=== PATIENT | female | born 1945 | race Caucasian/White ===

== ENCOUNTER 2019-01-15 13:10 | Emergency (ER) | payer BC ==
--- NOTE | 2019-01-15 14:10 | RAD REPORT ---
EXAM DESCRIPTION: CT - Head C Spine Mpr Wo Con - 01/15/2019 1:50 pm CLINICAL HISTORY: Head and neck injury status post fall. Head and neck pain COMPARISON: None. TECHNIQUE: Computed axial tomography of the head and cervical spine was obtained. Sagittal and coronal reconstruction was performed. All CT scans are performed using dose optimization technique as appropriate and may include automated exposure control or mA/KV adjustment according to patient size. FINDINGS: An intracranial bleed is not seen. The ventricles are normal in caliber. An extra-axial fl uid collection is not noted.Fluid within the visualized sinuses and mastoids is not seen A cervical fracture is not visualized. No dislocation is noted. Spondylosis involves the mid and dist al cervical spine The thyroid gland appears mildly enlarged IMPRESSION: No acute intracranial abnormality is seen. A cervical fracture is not visualized. If the patient continues to have symptoms to suggest intracra nial /spinal cord pathology then MRI would be recommended
--- NOTE | 2019-01-15 14:33 | EDPHYS ---
Physician Documentation [facility] Name: Marily Gonsales Age: 73 yrs Sex: Female : 1945 Arrival Date: 01/15/2019 Time: 13:12 Bed 8 Private MD: Lemuel Kuo C ED Physician Rosalio Glaser HPI: 01/15 14:28 This 73 yrs old Female presents to ER via Ambulatory with complaints of Fall rn Injury. 14:28 Details of fall: The patient fell from an upright position, while standing. Onset: The rn symptoms/episode began/occurred today. Associated injuries: The patient sustained injury to the head. Severity of symptoms: At their worst the symptoms were mild, in the emergency department the symptoms are unchanged. The patient has not experienced similar symptoms in the past. Reports slipped, was getting up and out of bathtub, slipped while using washcloth to get a pluck trimmer of bathtub, fell backward, hit head, and did not lose consciousness. No focal neurological complaint, does not take blood thinners. Remembers all events. No other injuries. . Historical: - Allergies: 13:32 No Known Allergies; ss - Home Meds: 13:32 Trimterene 37.5/ HCTZ 25 mg 1 cap PO DAILY [Active]; potassium chloride 10 mEq Oral ss TbER 1 tab once daily [Active]; levothyroxine 125 mcg tab 1 tab once daily [Active]; gabapentin 300 mg oral cap [Active]; atorvastatin 20 mg oral tab 1 tab once daily [Active]; buspirone 10 mg Oral tab [Active]; lamotrigine oral oral [Active]; 13:48 losartan-hydrochlorothiazide 50-12.5 mg Oral tab 1 tab once daily [Active]; Synthroid tr5 137 mcg Oral tab 1 tab once daily [Active]; - PMHx: 13:49 Bladder cancer; Hypertension; Hypothyroidism; tr5 - Immunization history:: Adult Immunizations up to date. - Social history:: Smoking status: Patient/guardian denies using tobacco. - Ebola Screening: : Patient denies exposure to infectious person Patient denies travel to an Ebola-affected area in the 21 days before illness onset. - Family history:: not pertinent. - Hospitalizations: : No recent hospitalization is reported. ROS: 14:28 Constitutional: Negative for fever, chills, and weight loss, Eyes: Negative for injury, rn pain, redness, and discharge, Neck: Negative for injury, pain, and swelling, Cardiovascular: Negative for chest pain, palpitations, and edema, Respiratory: Negative for shortness of breath, cough, wheezing, and pleuritic chest pain, Abdomen/GI: Negative for abdominal pain, nausea, vomiting, diarrhea, and constipation, MS/Extremity: Negative for injury and deformity, Skin: Negative for injury, rash, and discoloration, Neuro: Negative for weakness, numbness, tingling, and seizure, + headache Exam: 14:28 Constitutional: This is a well developed, well nourished patient who is awake, alert, rn and in no acute distress. Head/Face: Normocephalic, atraumatic. Eyes: Pupils equal round and reactive to light, extra-ocular motions intact. Lids and lashes normal. Conjunctiva and sclera are non-icteric and not injected. Cornea within normal limits. Periorbital areas with no swelling, redness, or edema. Neck: NO midline tenderness Cardiovascular: Regular rate and rhythm. No pulse deficits. Respiratory: Lungs have equal breath sounds bilaterally, clear to auscultation. No increased work of breathing, no retractions or nasal flaring. Abdomen/GI: soft, non-tender MS/ Extremity: Pulses equal, no cyanosis. Neurovascular intact. Full, normal range of motion. Equal circumference. Neuro: Awake and alert, GCS 15, oriented to person, place, time, and situation. Cranial nerves II-XII grossly intact. Motor strength 5/5 in all extremities. Sensory grossly intact. Cerebellar exam normal. Vital Signs: 13:32 BP 131 / 66; Pulse 53; Resp 19; Temp 98.1(TE); Pulse Ox 97% on R/A; Height 5 ft. 3 in. ss (160.02 cm); 13:51 BP 144 / 73; Pulse 60; Resp 12; Pulse Ox 100% on R/A; tr5 MDM: 13:30 Patient medically screened. rn 14:28 Differential diagnosis: closed head injury, contusion. Data reviewed: vital signs, rn nurses notes, radiologic studies, CT scan, and as a result, I will discharge patient. Counseling: I had a detailed discussion with the patient and/or guardian regarding: the historical points, exam findings, and any diagnostic results supporting the discharge/admit diagnosis, radiology results, the need for outpatient follow up, to return to the emergency department if symptoms worsen or persist or if there are any questions or concerns that arise at home. Special discussion: Based on the patient's history, exam and DX evaluation, there is no indication for emergent intervention or inpatient TX. It is understood by the patient/guardian that if the SXs persist or worsen they need to return immediately for re-evaluation. I discussed with the patient/guardian in detail that at this point there is no indication for admission to the hospital. It is understood, however, that if the symptoms persist or worsen the patient needs to return immediately for re-evaluation. 01/15 13:37 Order name: CT Head C Spine; Complete Time: 14:27 rn Administered Medications: 14:59 Drug: Motrin 600 mg Route: PO; tr5 15:01 Follow up: Response: Medication administered at discharge. tr5 14:59 Drug: UltRAM 50 mg Route: PO; tr5 15:01 Follow up: Response: Medication administered at discharge. tr5 Disposition: 01/15/19 14:33 Discharged to Home. Impression: Superficial injury of head. - Condition is Stable. - Discharge Instructions: Head Injury, Adult. - Medication Reconciliation Form, Thank You Letter, Antibiotic Education, Prescription Opioid Use form. - Follow up: Private Physician; When: As needed; Reason: Recheck today's complaints, Re-evaluation by your physician. - Problem is new. - Symptoms have improved. Signatures: Dispatcher [employer] EDMS Rosalio Glaser MD MD rn Smirch, Shelby, RN RN ss Rodriguez, Tommie, RN RN tr5 Corrections: (The following items were deleted from the chart) 13:49 13:32 PMHx: Bladder cancer; tr5 13:49 13:32 PMHx: Hypertension; tr5 13:49 13:32 PMHx: Hypothyroidism; tr5 15:02 14:33 01/15/2019 14:33 Discharged to Home. Impression: Superficial injury of head. tr5 Condition is Stable. Forms are Medication Reconciliation Form, Thank You Letter, Antibiotic Education, Prescription Opioid Use. Follow up: Private Physician; When: As needed; Reason: Recheck today's complaints, Re-evaluation by your physician. Problem is new. Symptoms have improved. rn
--- NOTE | 2019-01-15 14:33 | ER ---
Nurse's Notes [facility] Name: Marily Gonsales Age: 73 yrs Sex: Female : 1945 Arrival Date: 01/15/2019 Time: 13:12 Bed 8 Private MD: Lemuel Kuo C Diagnosis: Superficial injury of head Presentation: 01/15 13:25 Presenting complaint: Patient states: I was taking a bath and i slipped and hit the tr5 back of my head. It is just now starting to hurt and I am not sure if I feel dizzy or not but just wanted to get checked out. Transition of care: patient was not received from another setting of care. Onset of symptoms was January 15, 2019. Risk Assessment: Do you want to hurt yourself or someone else? Patient reports no desire to harm self or others. Initial Sepsis Screen: Does the patient meet any 2 criteria? No. Patient's initial sepsis screen is negative. Does the patient have a suspected source of infection? No. Patient's initial sepsis screen is negative. Care prior to arrival: None. 13:25 Method Of Arrival: Ambulatory tr5 13:25 Acuity: CORI 4 tr5 13:27 Presenting complaint: Patient states: Fell backwards in bathtub 1 hour ago. Denies LOC. ss Pt states, "it's just a little sore now, and I can't tell if I'm dizzy or just from the whole ordeal.". Transition of care: patient was not received from another setting of care. Onset of symptoms was January 15, 2019. Risk Assessment: Do you want to hurt yourself or someone else? Patient reports no desire to harm self or others. Initial Sepsis Screen: Does the patient meet any 2 criteria? No. Patient's initial sepsis screen is negative. Does the patient have a suspected source of infection? No. Patient's initial sepsis screen is negative. Care prior to arrival: None. 13:27 Method Of Arrival: Ambulatory ss 13:27 Acuity: CORI 4 ss Triage Assessment: 13:35 General: Appears in no apparent distress. comfortable, Behavior is calm, cooperative, tr5 appropriate for age. Pain: Complains of pain in occipital area Pain does not radiate. Quality of pain is described as aching. EENT: No signs and/or symptoms were reported regarding the EENT system. EENT: Reports ringing since Pt reports some ringing in ears shortly after she fell. Neuro: Level of Consciousness is awake, alert, obeys commands, Oriented to person, place, time, [place] are equal bilaterally Moves all extremities. Speech is normal, Facial symmetry appears normal, Pupils are PERRLA, Intact. Neuro: Denies weakness blurred vision. Cardiovascular: No deficits noted. Cardiovascular: Heart tones present Bruits absent Capillary refill < 3 seconds Pulses are all present. Edema is absent. Respiratory: Airway is patent Trachea midline Breath sounds are clear bilaterally. GI: No signs and/or symptoms were reported involving the gastrointestinal system. : No signs and/or symptoms were reported regarding the genitourinary system. Derm: No signs and/or symptoms reported regarding the dermatologic system. Musculoskeletal: Capillary refill < 3 seconds, Range of motion: intact in all extremities. Historical: - Allergies: 13:32 No Known Allergies; ss - Home Meds: 13:32 Trimterene 37.5/ HCTZ 25 mg 1 cap PO DAILY [Active]; potassium chloride 10 mEq Oral ss TbER 1 tab once daily [Active]; levothyroxine 125 mcg tab 1 tab once daily [Active]; gabapentin 300 mg oral cap [Active]; atorvastatin 20 mg oral tab 1 tab once daily [Active]; buspirone 10 mg Oral tab [Active]; lamotrigine oral oral [Active]; 13:48 losartan-hydrochlorothiazide 50-12.5 mg Oral tab 1 tab once daily [Active]; Synthroid tr5 137 mcg Oral tab 1 tab once daily [Active]; - PMHx: 13:49 Bladder cancer; Hypertension; Hypothyroidism; tr5 - Immunization history:: Adult Immunizations up to date. - Social history:: Smoking status: Patient/guardian denies using tobacco. - Ebola Screening: : Patient denies exposure to infectious person Patient denies travel to an Ebola-affected area in the 21 days before illness onset. - Family history:: not pertinent. - Hospitalizations: : No recent hospitalization is reported. Screenin:47 Abuse screen: Denies threats or abuse. Nutritional screening: No deficits noted. tr5 Tuberculosis screening: No symptoms or risk factors identified. Fall Risk Fall in past 12 months (25 points). No secondary diagnosis (0 pts). No IV (0 pts). Ambulatory Aid- None/Bed Rest/Nurse Assist (0 pts). Gait- Normal/Bed Rest/Wheelchair (0 pts) Mental Status- Oriented to own ability (0 pts). Total Guillen Fall Scale indicates Low Risk Score (25-44 pts). Side Rails Up X 2 Family Present and informed to notify staff if they need to leave bedside As available Patient and Family Educated on Fall Prevention Program and strategies. Assessment: 14:18 Reassessment: Patient appears in no apparent distress at this time. Patient is alert, tr5 oriented x 3, equal unlabored respirations, skin warm/dry/pink. 14:50 Reassessment: Patient states feeling better. Patient states symptoms have improved. tr5 Vital Signs: 13:32 BP 131 / 66; Pulse 53; Resp 19; Temp 98.1(TE); Pulse Ox 97% on R/A; Height 5 ft. 3 in. ss (160.02 cm); 13:51 BP 144 / 73; Pulse 60; Resp 12; Pulse Ox 100% on R/A; tr5 ED Course: 13:12 Patient arrived in ED. as 13:13 Lemuel Kuo MD is Private Physician. as 13:24 Yunior Tijerina RN is Primary Nurse. tr5 13:29 Triage completed. ss 13:30 Rosalio Glaser MD is Attending Physician. rn 13:32 Arm band placed on right wrist. ss 13:[address] via wheelchair. tr5 13:50 CT completed. Patient tolerated procedure well. Patient moved back from CT. mw3 13:50 CT Head C Spine In Process Unspecified. EDMS 13:52 Patient has correct armband on for positive identification. Bed in low position. Call tr5 light in reach. Side rails up X 1. Adult w/ patient. 15:00 No provider procedures requiring assistance completed. Patient did not have IV access tr5 during this emergency room visit. Administered Medications: 14:59 Drug: Motrin 600 mg Route: PO; tr5 15:01 Follow up: Response: Medication administered at discharge. tr5 14:59 Drug: UltRAM 50 mg Route: PO; tr5 15:01 Follow up: Response: Medication administered at discharge. tr5 Outcome: 14:33 Discharge ordered by . rn 14:59 Discharged to home ambulatory. tr5 14:59 Condition: stable 14:59 Discharge instructions given to patient, family, Instructed on discharge instructions, follow up and referral plans. Demonstrated understanding of instructions, follow-up care. 15:02 Patient left the ED. tr5 Signatures: Dispatcher [employer] Dorys Thibodeaux Roman, MD MD rn Smirch, Shelby, RN RN Sole Melton mw3 Yunior Tijerina RN RN tr5 Corrections: (The following items were deleted from the chart) 13:49 13:32 PMHx: Bladder cancer; tr5 13:49 13:32 PMHx: Hypertension; tr5 13:49 13:32 PMHx: Hypothyroidism; tr5 14:23 13:51 BP 144 / 73; Pulse 16bpm; Resp 12bpm; Pulse Ox 100% RA; tr5 tr5
[2019-01-15] MEDS ORDERED: IBUPROFEN 200 MG TAB PO ONE (14:58)
[2019-01-15] MEDS ORDERED: TRAMADOL HCL 50 MG TAB ONE (14:58)
[2019-01-15 15:42] VITALS: TEMP 98.1
[2019-01-15 15:43] VITALS: BP 144/73; O2SAT 100
== END 2019-01-15 15:02 | disposition home or self-care (01) ==
LOC: ER 13:10
DX: S00.90XA Unspecified superficial injury of unspecified part of head, initial encounter (principal); W18.2XXA Fall in (into) shower or empty bathtub, initial encounter; C67.9 Malignant neoplasm of bladder, unspecified; I10 Essential (primary) hypertension; E03.9 Hypothyroidism, unspecified
CPT/HCPCS: 70450; 72125; 99284

== ENCOUNTER 2019-09-06 06:19 | Day surgery (SDC) | payer BC ==
[2019-09-01 14:35] LABS: Hematocrit 46.6 % (36.0-45.0); RBC Red Blood Cell Count 5.29 M/uL (3.86-4.86)
[2019-09-01 14:36] LABS: Absolute Lymphocytes (CBC) 2.6 K/uL (0.7-4.9); Basophils % 0.8 % (0-1.3); Lymphocytes % 38.2 % (15.3-44.8); MPV 9.3 fL (7.6-11.3)
[2019-09-01 14:44] LABS: Protime INR 0.97
--- NOTE | 2019-09-02 15:01 | EKG ---
Test Date: 2019-09-01 Test Time: 13:41:16 [place]: ELINOR MEASUREMENT RESULTS: Intervals: Rate: 48 KS: 150 QRSD: 104 QT: 470 QTc: 419 [place]: P: 61 KS: 150 QRS: 34 T: 39 INTERPRETIVE STATEMENTS: Marked sinus bradycardia Possible Left atrial enlargement Abnormal ECG Compared to ECG 09/26/2016 20:03:54 Sinus rhythm no longer present Sinus arrhythmia no longer present Myocardial infarct finding no longer present Electronically Signed On 09-02-19 15:01:02 [employer] by Jin Chisholm
[2019-09-06] MEDS ORDERED: Ringers Lactate 1,000 ML IV ONE (06:40)
[2019-09-06 07:06] LABS: Albumin 3.8 g/dL (3.4-5.0); Bilirubin Total 0.9 mg/dL (0.2-1.0); Potassium 3.4 mmol/L (3.5-5.1); Protein, Total 6.8 g/dL (6.4-8.2)
[2019-09-06] MEDS ORDERED: LIDOCAINE 1% MPF 5 ML VIAL ONE (07:24)
[2019-09-06] MEDS ORDERED: propofoL 200 MG/20 ML VIAL IV ONE (07:24)
[2019-09-06] MEDS ORDERED: FENTANYL CITR 100 MCG/2 ML ONE (07:24)
[2019-09-06] MEDS ORDERED: AMPICILLIN SODIUM 1 GM in NA CHLORIDE 0.9% 100 ML IVPB ONE (07:30)
[2019-09-06] MEDS ORDERED: CEFTRIAXONE/SWI 1gm 1 GM/10 ML SYR IV ONE (07:30)
[2019-09-06] MEDS ORDERED: ONDANSETRON 4 MG/2 ML VIAL ONE (07:54)
[2019-09-06] MEDS ORDERED: KETOROLAC 30 MG/ML INJ ONE (07:54)
[2019-09-06] MEDS ORDERED: EPHEDRINE SULF 50 MG/ML VIAL ONE (08:02)
[2019-09-06] MEDS ORDERED: NS 0.9% VIAL 10 ML ONE (08:02)
--- NOTE | 2019-09-06 09:20 | RAD REPORT ---
EXAM DESCRIPTION: RAD - Cystography - 09/06/2019 9:03 am CLINICAL HISTORY: CYSTO RETROGRADE BLADDER BIOPSY COMPARISON: No comparisons FINDINGS: Total fluoro time: 40 seconds
[2019-09-06 09:59] VITALS: TEMP 97.9; O2SAT 100
[2019-09-06 10:44] VITALS: BP 135/63
[2019-09-06] MEDS ORDERED: CODEINE 30MG/APAP 300MG TAB ONE (11:10)
--- NOTE | 2019-09-06 23:33 | OP ---
Date of Procedure: 09/06/2019 Surgeon: YOLANDA BUTT Disassembler: Sydney Lance, Nurse Practitioner. Preoperative Diagnoses: Bladder lesion, history of bladder cancer. Postoperative Diagnoses: Bladder lesion, history of bladder cancer. Procedures Performed: Cystoscopy, bilateral retrograde pyelograms, bladder biopsy with fulguration. Anesthesia: General LMA. Procedure In Detail: With the patient in modified dorsal lithotomy position on the cystoscopy table, after the satisfactory induction of anesthesia, the genitalia were prepped and draped in the usual s terile fashion. A 22-Mauritian cystoscope was passed per urethra. The entire urethra and bladder were thoroughly examined. The urethra appeared normal. The bladder showed some fibrosis. On the mid pos terior wall, there was a slightly elevated irregular area of patchy erythema. The remainder of the b ladder appeared normal. Bilateral retrograde pyelograms were performed with an 8-Mauritian cone tip cat heter revealing normal upper tracts, which drained promptly. I saw no filling defect or other abnorm ality. We then used the cold cup biopsy forceps to biopsy the erythematous patch and cauterize this area thoroughly. This produced complete hemostasis. The bladder was filled and emptied and there wa s no sign of any bleeding. Then, the bladder was drained. The cystoscope was removed and the patien t was awakened and transferred by stretcher to the recovery room in satisfactory condition. There we re no complications. Blood loss was less than 10 mL. She tolerated the procedure well. Counts were correct. Specimen was as noted above. LIZ/TUAN Voice ID: [id number] Report ID: [id number]
== END 2019-09-06 12:32 | disposition home or self-care (01) ==
LOC: OR 06:19
PROVIDERS: ATTEND Internal Medicine Hematology & Oncology
PROC: BT14ZZZ Fluoroscopy of Kidneys, Ureters and Bladder (ICD-10-PCS; 2019-09-06)
PROC: 0TBB8ZX Excision of Bladder, Via Natural or Artificial Opening Endoscopic, Diagnostic (ICD-10-PCS; principal; 2019-09-06 07:30)
DX: C67.4 Malignant neoplasm of posterior wall of bladder (principal); I10 Essential (primary) hypertension; E03.9 Hypothyroidism, unspecified; M25.50 Pain in unspecified joint; Z88.2 Allergy status to sulfonamides
CPT/HCPCS: 52204; 52005; 93005; 87088; 85025; 87086; 36415 ×2; 85610; 88305; 85730; 80053; 51600; 74430; J2704; J3010; J0696; J7120; J2405; J0290

== ENCOUNTER 2020-03-26 09:14 | Inpatient (IN) | payer BC ==
--- OUTSIDE RECORDS SUMMARY | 2020-03-26 09:20 | XMS REPORT | Clinical Summary ---
:1945 Author Organization [facility] Address [address] [place] [address] Care Team Providers Name Role Phone Lucy Kuo MD Primary Care Provider Allergies Active Allergy Reactions Severity Noted Date Comments Sulfa (Sulfonamide Antibiotics) Swelling 0 Medications Medication Sig Dispensed Refills Start End Status Date Date triamterene-hydroCH Take 1 capsule by 0 Active LOROthiazide mouth every (DYAZIDE) 37.5-25 morning. mg per capsule potassium chloride Take 10 mEq by 0 Active (MICRO-K) 10 mEq CR mouth daily . capsule levothyroxine Take 125 mcg by 0 Active (SYNTHROID, mouth Every LEVOTHROID) 125 MCG morning on an tablet empty stomach. gabapentin Take 300 mg by 0 Acti ve (NEURONTIN) 300 MG mouth daily. capsule atorvastatin Take 20 mg by 0 Act libby (LIPITOR) 20 MG mouth daily. tablet lamoTRIgine Take 50 mg by 0 Acti ve (LAMICTAL) 25 MG mouth daily. tablet hydrOXYzine Take 50 mg by 0 Acti ve (ATARAX) 25 MG mouth 3 (three) tabletIndications: times daily . anxious baclofen (LIORESAL) Take 10 mg by 0 Active 10 MG tablet mouth 2 (two) times daily. multivitamin Take 1 capsule by 0 Active capsule mouth daily. vit A/C/E Take by mouth 0 Active ac/ZnOx/cupric daily. oxide (EYE VITAMIN AND MINERALS ORAL) b complex vitamins Take 1 capsule by 0 Active capsule mouth daily. calcium Take 1 tablet by 0 Act libby citrate-vitamin D mouth 2 (two) (CITRACAL+D) times daily. 315-200 mg-unit per tablet ddsgd-0h-ved-epa-fi Take by mouth 0 Active sh oil (FISH OIL) daily. 120 mg-180 mg- 60 mg-1,200 mg CpDR lactobacillus Take 1 capsule by 0 Active rhamnosus, GG, mouth daily. (CULTURELLE) 10 billion cell capsule polycarbophil Take 625 mg by 0 A ctive (FIBERCON) 625 mg mouth 3 (three) tablet times daily. biotin 2,500 mcg Take by mouth 0 Active CapIndications: daily. 5000 mcg MAGNESIUM GLYCINATE Take by mouth. 0 Active ORAL UNKNOWNIndications: L-Theanine 200 mg 0 Active binu supplement daily . ascorbic acid, Take 500 mg by 0 Active vitamin C, (VITAMIN mouth daily. C) 500 MG tablet TURMERIC ORAL Take by mouth. 0 A ctive spironolactone-hydr Take 1 tablet by 0 04/20 Discontinued oCHLOROthiazide mouth daily. 020 (ALDACTAZIDE) 25-25 mg per tablet HYDROcodone-acetami Take 1 tablet by 0 07/21 Discontinued nophen (NORCO mouth every 6 020 7.5-325) 7.5-325 mg (six) hours as per tablet needed for Pain. phenazopyridine Take 1 tablet (200 10 tablet 0 10/16 (PYRIDIUM) 200 MG mg total) by mouth 0 020 tablet 3 (three) times daily as needed for up to 3 days. nitrofurantoin, Take 1 capsule 6 capsule 0 macrocrystal-monohy (100 mg total) by 0 02 0 drate, (MACROBID) mouth 2 (two) 100 MG capsule times daily for 3 days. nitrofurantoin, Take 1 capsule 14 capsule 0 macrocrystal-monohy (100 mg total) by 0 02 0 drate, (MACROBID) mouth 2 (two) 100 MG capsule times daily for 7 days. phenazopyridine Take 1 tablet (200 10 tablet 0 01/20 (PYRIDIUM) 200 MG mg total) by mouth 0 020 tablet 3 (three) times daily as needed for up to 3 days. acetaminophen-codei Take 1 tablet by 30 tablet 0 16/09 ne (TYLENOL #3) mouth every 6 0 020 300-30 mg per (six) hours as tablet needed for up to 10 days. Max Daily Amount: 4 tablets docusate sodium Take 1 capsule 60 capsule 0 (COLACE) 100 MG (100 mg total) by 0 020 capsule mouth 2 (two) times daily as needed for Constipation for up to 10 days. enoxaparin Inject 0.4 mLs (40 30 Syringe 0 (LOVENOX) 40 mg/0.4 mg total) 0 020 mL Syrg subcutaneously daily for 30 days. nitrofurantoin, Take 1 capsule 6 capsule 0 macrocrystal-monohy (100 mg total) by 0 02 0 drate, (MACROBID) mouth 2 (two) 100 MG capsule times daily for 3 days Please start day before follow up appointment for stent removal. Active Problems Problem Noted Date Urothelial cancer 01/30/2020 Bladder cancer 10/14/2019 Encounters Date Type Specialty Care Team Description 02/28/2020 Outside Orders Central Scheduling Bird Trotter neoplasm of overlapping sites of bladder (HCC) (Primary Dx); MD Eyad Malignant neopl asm of urinary bladder, unspecified site (HCC) 01/31/2020 Anesthesia Event General Internal Madonna Warren MD 01/30/2020 Surgery Dick Jaimes CYSTECTOMY,CREA ANTWON Mondragon MD STUDOR POUCH 01/30/2020 Anesthesia Event Kushal Del Cid MD 01/30/2020 - Hospital Encounter General Internal Dick Jaimes 02/07/2020 Hallie Mondragon MD 01/30/2020 Travel 01/27/2020 Hospital Encounter Pre-Admission Testing 01/18/2020 Anesthesia Event Cade Marinelli CRNA 01/18/2020 Surgery Dick Jaimes CYSTOSCOPY,TURB Lon Mondragon MD 01/18/2020 Hospital Encounter Dick Jaimes Malignant neoplasm MD Giancarlo of posterior wa ll of urinary blad juan f (HCC) 01/18/2020 Orders Only General Internal Medicine 01/17/2020 Hospital Encounter Pre-Admission Testing 01/17/2020 Travel 12/27/2019 Hospital Encounter Computed Tomography Bird Trotter Ma lignant neoplasm MD Eyad of overlapping 1, [facility] [place] [facility] [address] Room (HCC) 12/27/2019 Hospital Encounter Computed Tomography Bird Trotter Ma lignant neoplasm MD Eyad of overlapping , [facility] [place] [facility] [address] Room (HCC) 12/20/2019 Outside Orders Central Scheduling Ailin Trotter-Kishore Maligna nt neoplasm MD Eyad of overlapping sites of bladde r (HCC) (Primary Dx) 12/20/2019 Outside Orders Central Scheduling Ailin Trotter-Kishore Maligna nt neoplasm MD Eyad of overlapping sites of bladde r (HCC) (Primary Dx) 11/01/2019 Hospital Encounter Radiology Bird Trotter Malignant neoplasm MD Eyad of overlapping sites of bladde r (HCC) 11/01/2019 Travel 10/27/2019 Hospital Encounter Computed Tomography Brodie iNcole, Malignant neoplasm of overlapping , [facility] [place] [facility] [address] Room (HCC) 10/27/2019 Hospital Encounter Computed Tomography Brodie Nicole, Avascular necrosis MD of scaphoid (HCC) [address] [place] [address] Room 10/26/2019 Outside Orders Central Scheduling Dick Jaimes nt neoplasm MD Giancarlo of overlapping sites of bladde r (HCC) (Primary Dx) 10/26/2019 Outside Orders Central Scheduling Ailin Trotter-Kishore Maligna nt neoplasm MD Eyad of overlapping sites of bladde r (HCC) (Primary Dx) 10/21/2019 Outside Orders Central Scheduling Brodie Nicole, 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); Malignant neopl asm of overlapping sites of bladder (HCC) 10/14/2019 Anesthesia Event Ravindra Larry MD 10/14/2019 Surgery Dick Jaimes CYSTOSCOPY,KENNEY Mondragon MD [facility] 10/14/2019 Hospital Encounter Dick Jaimes MD 10/14/2019 Travel 10/12/2019 Hospital Encounter Radiology Dick Jaimes Malignant neoplasm MD Giancarlo of overlapping sites of bladde r (HCC) 10/12/2019 Hospital Encounter Computed Tomography Dick Jaimes Ma lignant neoplasm MD Giancarlo of overlapping , [facility] ([facility] 10/10/2019 Hospital Encounter Pre-Admission Testing 10/06/2019 Outside Orders Central Scheduling Dick Jaimes Maligna nt neoplasm MD Giancarlo of overlapping sites of bladde r (HCC) (Primary Dx) after 03/26/2019 Social History Tobacco Use Types Packs/Day Years Used Date Never Smoker Smokeless Tobacco: Never Used Alcohol Use Drinks/Week oz/Week Comments No Alcohol Habits Answer Date Recorded How often do you have a drink containing alcohol? Never 10/10/2019 How many drinks containing alcohol do you have on a typical Not asked day when you are drinking? How often do you have six or more drinks on one occasion? No t asked Sex Assigned at Date Recorded Not on file Job Start Date Occupation Industry Not on file Not on file Not on file Travel History Travel Start Travel End No recent travel history available. Last Filed Vital Signs Vital Sign Reading Time Taken Blood Pressure 129/61 02/08/2020 12:20 AM CDT Pulse 65 02/08/2020 12:20 AM CDT Temperature 37.2 C (99 F) 02/08/2020 12:20 AM CDT Respiratory Rate 18 02/08/2020 12:20 AM CDT Oxygen Saturation 96% 02/08/2020 12:20 AM CDT Inhaled Oxygen Concentration - - Weight 68.5 kg (151 lb) 01/30/2020 6:49 PM CDT Height 157.5 cm (5' 2") 01/30/2020 6:49 PM CDT Body Mass Index 27.62 01/30/2020 6:49 PM CDT Plan of Treatment Date Type Specialty Care Team Description 03/27/2020 Appointment Computed Tomography Bird Trotter MD [address] [address] 1, [facility] [place] [address] Room 03/27/2020 Hospital Encounter Computed Tomography Clover Trotter MD [address] [address] [address], [facility] [place] [address] Room Implants Implanted Type Area Groundman Device Identifier Shelf Model / Expiration Serial / Date Lot Stnt [facility] [employer] Bndr Opnend 8.2fr [id number] - [id number] IMPLANTS Left : SHAHBAZ:UROLOGY [id number] 09/27/2022 [id number] / Implanted: Qty: 1 on 01/30/2020 by Dick Jaimes MD Ure ter / [id number] [facility]nt [facility] [employer] Opnend 8.2fr [id number] - [id number] IMPLANTS Righ t: COOK:UROLOGY [id number] 09/27/2022 [id number] / Implanted: Qty: 1 on 01/30/2020 by Dick Jaimes MD Ure ter / [id number] Procedures Procedure Name Priority Date/Time Associated Comments Diagnosis RHYTHM STRIP - SCAN 02/08/2020 11:00 AM CDT SARS-COV-2(COVID19)HIG Routine 02/07/2020 1:42 R esults for this HRISKRT-PCR PM CDT procedure are i n the results section. SARS-COV2/RT-PCR ([facility] Routine 02/07/2020 1:42 R esults for this & REF LABS) PM CDT procedure are i n the results section. HEMOGLOBIN AND STAT 02/06/2020 1:51 Results f or this HEMATOCRIT PM CDT procedure are i n the results section. URINE CULTURE Routine 02/06/2020 6:30 Results fo r this AM CDT procedure are i n the results section. PHOSPHORUS Routine 02/06/2020 5:38 Results for this AM CDT procedure are i n the results section. MAGNESIUM Routine 02/06/2020 5:38 Results for this AM CDT procedure are i n the results section. HEMOGLOBIN AND Routine 02/06/2020 5:38 Results f or this HEMATOCRIT AM CDT procedure are i n the results section. BASIC METABOLIC PANEL Routine 02/06/2020 5:38 Re sults for this (7) AM CDT procedure are i n the results section. PHOSPHORUS Routine 02/05/2020 6:55 Results for this AM CDT procedure are i n the results section. MAGNESIUM Routine 02/05/2020 6:55 Results for this AM CDT procedure are i n the results section. BASIC METABOLIC PANEL Routine 02/05/2020 6:55 Re sults for this (7) AM CDT procedure are i n the results section. HEMOGLOBIN AND Routine 02/05/2020 4:25 Results f or this HEMATOCRIT AM CDT procedure are i n the results section. TRANSFUSION SERVICE 02/04/2020 6:00 REPORT - SCAN PM CDT PHOSPHORUS Routine 02/04/2020 5:27 Results for this AM CDT procedure are i n the results section. MAGNESIUM Routine 02/04/2020 5:27 Results for this AM CDT procedure are i n the results section. HEMOGLOBIN AND Routine 02/04/2020 5:27 Results f or this HEMATOCRIT AM CDT procedure are i n the results section. BASIC METABOLIC PANEL Routine 02/04/2020 5:27 Re sults for this (7) AM CDT procedure are i n the results section. PREPARE LEUKO-REDUCED Routine 02/03/2020 11:54 Re sults for this RBC PM CDT procedure are i n the results section. TRANSFUSION SERVICE 02/03/2020 6:01 REPORT - SCAN PM CDT XR CHEST 1 VIEW STAT 02/03/2020 5:04 Results for this PORTABLE/BEDSIDE PM CDT procedure a re in the results section. PHOSPHORUS Routine 02/03/2020 6:38 Results for this AM CDT procedure are i n the results section. MAGNESIUM Routine 02/03/2020 6:38 Results for this AM CDT procedure are i n the results section. HEMOGLOBIN AND Routine 02/03/2020 6:38 Results f or this HEMATOCRIT AM CDT procedure are i n the results section. BASIC METABOLIC PANEL Routine 02/03/2020 6:38 Re sults for this (7) AM CDT procedure are i n the results section. HEMOGLOBIN AND ALEX 02/02/2020 7:12 Results f or this HEMATOCRIT PM CDT procedure are i n the results section. TRANSFUSE Routine 02/02/2020 3:12 LEUKO-REDUCED RED PM CDT BLOOD CELLS CBC (HEMOGRAM ONLY) STAT 02/02/2020 4:41 Resu lts for this AM CDT procedure are i n the results section. PHOSPHORUS Routine 02/02/2020 3:39 Results for this AM CDT procedure are i n the results section. MAGNESIUM Routine 02/02/2020 3:39 Results for this AM CDT procedure are i n the results section. HEMOGLOBIN AND Routine 02/02/2020 3:39 Results f or this HEMATOCRIT AM CDT procedure are i n the results section. BASIC METABOLIC PANEL Routine 02/02/2020 3:39 Re sults for this (7) AM CDT procedure are i n the results section. TRANSFUSION SERVICE 02/01/2020 6:00 REPORT - SCAN PM CDT INTRAOPERATIVE PATH 02/01/2020 3:12 REPORT - SCAN PM CDT INTRAOPERATIVE PATH 02/01/2020 3:12 REPORT - SCAN PM CDT HEMOGLOBIN AND Routine 02/01/2020 10:41 Results f or this HEMATOCRIT AM CDT procedure are i n the results section. PHOSPHORUS Routine 02/01/2020 4:58 Results for this AM CDT procedure are i n the results section. MAGNESIUM Routine 02/01/2020 4:58 Results for this AM CDT procedure are i n the results section. HEMOGLOBIN AND Routine 02/01/2020 4:58 Results f or this HEMATOCRIT AM CDT procedure are i n the results section. BASIC METABOLIC PANEL Routine 02/01/2020 4:58 Re sults for this (7) AM CDT procedure are i n the results section. PREPARE LEUKO-REDUCED Routine 01/31/2020 11:54 Re sults for this RBC PM CDT procedure are i n the results section. TRANSFUSION SERVICE 01/31/2020 6:11 REPORT - SCAN PM CDT PHOSPHORUS Routine 01/31/2020 4:30 Results for this AM CDT procedure are i n the results section. MAGNESIUM Routine 01/31/2020 4:30 Results for this AM CDT procedure are i n the results section. HEMOGLOBIN AND Routine 01/31/2020 4:30 Results f or this HEMATOCRIT AM CDT procedure are i n the results section. BASIC METABOLIC PANEL Routine 01/31/2020 4:30 Re sults for this (7) AM CDT procedure are i n the results section. HGB/HCT (H&H) - STAT STAT 01/30/2020 3:56 Res ults for this LAB PM CDT procedure are i n the results section. GLUCOSE-STAT LAB STAT 01/30/2020 3:56 Results for this PM CDT procedure are i n the results section. POTASSIUM-STAT LAB STAT 01/30/2020 3:56 Resul ts for this PM CDT procedure are i n the results section. SODIUM NA-STAT LAB STAT 01/30/2020 3:56 Resul ts for this PM CDT procedure are i n the results section. BLOOD GAS, ARTERIAL STAT 01/30/2020 3:56 Resu lts for this PM CDT procedure are i n the results section. RRL CRITICAL LABS STAT 01/30/2020 3:56 Result s for this (ABG,NA,K,H&H,GLUCOSE) PM CDT proce dure are in the results section. CBC W/PLT COUNT & AUTO STAT 01/30/2020 3:48 R esults for this DIFFERENTIAL PM CDT procedure are i n the results section. PHOSPHORUS STAT 01/30/2020 3:48 Results for this PM CDT procedure are i n the results section. MAGNESIUM STAT 01/30/2020 3:48 Results for this PM CDT procedure are i n the results section. BASIC METABOLIC PANEL STAT 01/30/2020 3:48 Re sults for this (7) PM CDT procedure are i n the results section. CBC W/PLT COUNT & AUTO STAT 01/30/2020 3:48 R esults for this DIFFERENTIAL PM CDT procedure are i n the results section. HGB/HCT (H&H) - STAT STAT 01/30/2020 2:31 Res ults for this LAB PM CDT procedure are i n the results section. GLUCOSE-STAT LAB STAT 01/30/2020 2:31 Results for this PM CDT procedure are i n the results section. POTASSIUM-STAT LAB STAT 01/30/2020 2:31 Resul ts for this PM CDT procedure are i n the results section. SODIUM NA-STAT LAB STAT 01/30/2020 2:31 Resul ts for this PM CDT procedure are i n the results section. BLOOD GAS, ARTERIAL STAT 01/30/2020 2:31 Resu lts for this PM CDT procedure are i n the results section. CALCIUM, IONIZED STAT 01/30/2020 2:31 Results for this PM CDT procedure are i n the results section. RRL CRITICAL LABS STAT 01/30/2020 2:31 Result s for this (ABG,NA,K,H&H,GLUCOSE) PM CDT proce dure are in the results section. TRANSFUSE Routine 01/30/2020 2:08 LEUKO-REDUCED RED PM CDT BLOOD CELLS HGB/HCT (H&H) - STAT STAT 01/30/2020 12:47 Res ults for this LAB PM CDT procedure are i n the results section. GLUCOSE-STAT LAB STAT 01/30/2020 12:47 Results for this PM CDT procedure are i n the results section. POTASSIUM-STAT LAB STAT 01/30/2020 12:47 Resul ts for this PM CDT procedure are i n the results section. SODIUM NA-STAT LAB STAT 01/30/2020 12:47 Resul ts for this PM CDT procedure are i n the results section. BLOOD GAS, ARTERIAL STAT 01/30/2020 12:47 Resu lts for this PM CDT procedure are i n the results section. CALCIUM, IONIZED STAT 01/30/2020 12:47 Results for this PM CDT procedure are i n the results section. RRL CRITICAL LABS STAT 01/30/2020 12:47 Result s for this (ABG,NA,K,H&H,GLUCOSE) PM CDT proce dure are in the results section. PH, ARTERIAL STAT 01/30/2020 11:21 Results for this AM CDT procedure are i n the results section. CALCIUM, IONIZED STAT 01/30/2020 11:21 Results for this AM CDT procedure are i n the results section. HGB/HCT (H&H) - STAT STAT 01/30/2020 11:21 Res ults for this LAB AM CDT procedure are i n the results section. GLUCOSE-STAT LAB STAT 01/30/2020 11:21 Results for this AM CDT procedure are i n the results section. POTASSIUM-STAT LAB STAT 01/30/2020 11:21 Resul ts for this AM CDT procedure are i n the results section. SODIUM NA-STAT LAB STAT 01/30/2020 11:21 Resul ts for this AM CDT procedure are i n the results section. BLOOD GAS, ARTERIAL STAT 01/30/2020 11:21 Resu lts for this AM CDT procedure are i n the results section. HGB/HCT (H&H) - STAT STAT 01/30/2020 9:43 Res ults for this LAB AM CDT procedure are i n the results section. GLUCOSE-STAT LAB STAT 01/30/2020 9:43 Results for this AM CDT procedure are i n the results section. POTASSIUM-STAT LAB STAT 01/30/2020 9:43 Resul ts for this AM CDT procedure are i n the results section. SODIUM NA-STAT LAB STAT 01/30/2020 9:43 Resul ts for this AM CDT procedure are i n the results section. BLOOD GAS, ARTERIAL STAT 01/30/2020 9:43 Resu lts for this AM CDT procedure are i n the results section. CALCIUM, IONIZED STAT 01/30/2020 9:43 Results for this AM CDT procedure are i n the results section. RRL CRITICAL LABS STAT 01/30/2020 9:43 Result s for this (ABG,NA,K,H&H,GLUCOSE) AM CDT proce dure are in the results section. TISSUE EXAM AP Routine 01/30/2020 9:40 Results for this AM CDT procedure are i n the results section. MS AN EPIDURAL CATH - Routine 01/30/2020 8:35 Re sults for this NO CHARGE AM CDT procedure are i n the results section. PLACEMENT,WOUND VAC 01/30/2020 8:00 Malignant neoplas m AM CDT of urinary bladder, unspecified site (HCC) Special Needs Checked by Hieu Black LYMPHADENECTOMY,RETROPERITONEAL 01/30/2020 8:00 AM Ma lignant neoplasm TRANSABDOMINAL CDT of urinary bladder, unspecified site (HCC) Special Needs Checked by Hieu Black CYSTECTOMY,CREATION STUDOR POUCH 01/30/2020 8:00 AM C DT Malignant neoplasm of urinary bladder, unspecified site (HCC) Special Needs Checked by Hieu Black ABORH, MANUAL STAT 01/30/2020 7:15 Results fo r this AM CDT procedure are i n the results section. CBC W/PLT COUNT & Routine 01/30/2020 7:04 Result s for this AUTO DIFFERENTIAL AM CDT procedure are in the results section. TYPE AND SCREEN, Routine 01/30/2020 7:04 Results for this AUTOMATED AM CDT procedure are i n the results section. CBC W/PLT COUNT & Routine 01/30/2020 7:04 Result s for this AUTO DIFFERENTIAL AM CDT procedure are in the results section. TISSUE EXAM AP Routine 01/18/2020 2:31 Results for this PM CDT procedure are i n the results section. CYTOLOGY REQUEST Routine 01/18/2020 2:09 Results for this PM CDT procedure are i n the results section. CYTOLOGY AP Routine 01/18/2020 2:09 Results for this PM CDT procedure are i n the results section. CYSTOSCOPY,TURBT 01/18/2020 1:00 Malignant neoplasm PM CDT of overlapping sites of bladder (HCC) ECG 12-LEAD Routine 01/18/2020 12:44 Results for this PM CDT procedure are i n the results section. ECG 12-LEAD Routine 01/18/2020 12:44 PM CDT Procedure Note - Interface, External Ris In - 01/18/2020 12:53 PM CDT Ventricular Rate 52 BPM Atrial Rate 52 BPM P-R Interval 154 ms QRS Duration 106 ms Q-T Interval 510 ms QTC Calculation(Bazett) 474 ms P Union 70 degrees R Union 47 degrees T Union 26 degrees Sinus bradycardia Otherwise normal ECG IR PORT-A-CATH Routine 11/01/2019 3:08 Malignant neoplasm Res ults for this PLACEMENT PM CDT of overlapping procedure are in sites of bladder the results (HCC) section. CBC W/PLT COUNT & Routine 11/01/2019 9:45 Result s for this AUTO DIFFERENTIAL AM CDT procedure are in the results section. APTT Routine 11/01/2019 9:45 Results for this AM CDT procedure are i n the results section. PROTHROMBIN TIME/INR Routine 11/01/2019 9:45 Res ults for this AM CDT procedure are i n the results section. CBC W/PLT COUNT & Routine 11/01/2019 9:45 Result s for this AUTO DIFFERENTIAL AM CDT procedure are in the results section. CT CHEST WITH IV Routine 10/27/2019 1:15 Results for this CONTRAST PM CDT procedure are i n the results section. TISSUE EXAM AP Routine 10/14/2019 9:26 Results for this AM CDT procedure are i n the results section. CYSTOSCOPY,TURBT 10/14/2019 8:00 Malignant neoplasm AM CDT of overlapping sites of bladder (HCC) Special Needs ([facility]) CYSTOSCOPY,BLUE LIGHT [facility] 10/14/2019 8:00 AM CDT Malignant neoplasm of overlapping sites of bladder (HCC) Special Needs ([facility]) CT ABDOMEN/PELVIS WITH Routine 10/12/2019 3:47 Malignant neop lasm Results for this & WITHOUT IV CONTRAST PM CDT of overlapping proc edure are in sites of bladder the results (HCC) section. XR CHEST 2 VIEWS Routine 10/12/2019 3:12 Malignant neoplasm R esults for this PM CDT of overlapping procedure are in sites of bladder the results (HCC) section. after 03/26/2019 Results RHYTHM STRIP - SCAN (02/08/2020 11:00 AM CDT) Narrative Performed At This result has an attachment that is no t available. SARS-COV-2(COVID19)HIGHRISKRT-PCR (02/07/2020 1:42 PM CDT) SARS-COV-2 INTERPRETATION NEGATIVE Comment: . CP L LABS Specimen Other Performing Organization Address City/[facility]/Zipcode Phone Number [facility] [address] [place] [address] SARS-CoV2/RT-PCR (Asymptomatic ONLY) (02/07/2020 1:42 PM CDT) SARS-COV2/RT-PCR Negative Not Detected, Negative, [facility] See external report for MEDICAL CENTER linked test SARS-COV-2 PERFORMING LAB [facility] Specimen Other Performing Organization Address [facility] Phone Number [address] [address] CENTER Hemoglobin and hematocrit (02/06/2020 1:51 PM CDT)Only the most recent of10 resultswithin the time period is included. Hemoglobin 7.5 (L) 11.2 - 15.7 GM/DL [facility] Hematocrit 23.8 (L) 34.1 - 44.9 % [facility] Specimen Blood Narrative Performed At Certified Welding Inspector ID - [id number] [facility] MED ICAL CENTER Performing Organization Address [facility] Phone Number [address] [address] CENTER Urine culture (02/06/2020 6:30 AM CDT) Result >100,000 col/mL skin wendy [facility] Specimen Urine - Urine, Urostomy Performing Organization Address [facility] Phone Number [address] [address] CENTER Phosphorus (02/06/2020 5:38 AM CDT)Only the most recent of8 resultswithin the time period is included. Phosphorus 3.7 2.3 - 4.7 mg/dL [facility] Specimen Blood Narrative Performed At Certified Welding Inspector ID - [facility] Performing Organization Address City/State/Zipcode Phone Number [address] [address] CENTER Magnesium (02/06/2020 5:38 AM CDT)Only the most recent of8 resultswithin the time period is included. Magnesium 1.9 1.6 - 2.6 mg/dL [facility] Specimen Blood Narrative Performed At Certified Welding Inspector ID - [facility] Performing Organization Address City/[facility] Phone Number [address] [address] CENTER Basic Metabolic Panel - POD 1 (02/06/2020 5:38 AM CDT)Only the most recent of8 resultswithin the time period is included. Sodium 139 136 - 145 meq/L [facility] Potassium 4.0 3.5 - 5.1 meq/L [facility] Chloride 107 98 - 107 meq/L [facility] CO2 26 22 - 29 meq/L [facility] BUN 11 7 - 21 mg/dL [facility] Creatinine 0.67 0.57 - 1.25 mg/dL [facility] Glucose 86 70 - 105 mg/dL [facility] Calcium 7.8 (L) 8.4 - 10.2 mg/dL [facility] EGFR 86Comment: ESTIMATED GFR IS mL/min/1.73 sq m [facility] NOT ACCURATE [facility] CLEARANCE IN PREDICTING GLOMERULAR FILTRATION RATE. ESTIMATED GFR IS NOT APPLICABLE FOR DIALYSIS PATIENTS. Specimen Blood Narrative Performed At Certified Welding Inspector ID - [facility] Performing Organization Address City/[facility]/Zipcode Phone Number [facility] [address] [place] [address] CENTER TRANSFUSION SERVICE REPORT - SCAN (02/04/2020 6:00 PM CDT)Only the most recent of4 resultswithin the time period is included. Narrative Performed At This result has an attachment that is no t available. Prepare Leuko-Red RBC (02/03/2020 11:54 PM CDT)Only the most recent of2 results within the time period is included. CROSSMATCH COMPATIBLE SAFETRACE TX Unit ABO A Pos SAFETRACE TX UNIT NUMBER [id number] SAFETRACE TX Status TX_TIMEINCHART SAFETRACE TX Blood Bank Product RED BLOOD CELLS SAFETRACE TX PRODUCT CODE [id number] SAFET[place]ACE [place] Specimen Other Performing Organization Address City/State/Zipcode Phone Number SAFETRACE [place] XR chest 1 view portable / bedside (02/03/2020 5:04 PM CDT) Specimen Narrative Performed At FINAL REPORT RIS History: PICC line placement. FINDINGS: Compared with October 12, 2019, the heart and mediastinum are stable. Lung volumes have decreased. There is sl ight increased opacity in the lower lobes, likely atelectasis. Left up per extremity PICC line has been placed and appears to lie in expect ed position, its tip over the superior vena cava. A right internal jug ular chest port is also present and appears in a similar positio n. No pneumothorax. Bones are unremarkable. IMPRESSION: 1. Left upper extremity PICC line appear s in expected position. A right chest port is also noted. No pneum othorax. 2. Decreased lung volumes and slight inc reased opacity in the lower lobes, likely atelectasis. Signed: Manny Arcos MD Report Verified Date/Time:02/03/2020 18:35:36 Reading Location: [facility] Procedure Note Interface, External Ris In - 02/03/2020 6:37 PM CDT FINAL REPORT History: PICC line placement. FINDINGS: Compared with October 12, 2019, the heart and mediastinum are stable. Lung volumes have decreased. There is sl ight increased opacity in the lower lobes, likely atelectasis. Left up per extremity PICC line has been placed and appears to lie in expect ed position, its tip over the superior vena cava. A right internal jug ular chest port is also present and appears in a similar positio n. No pneumothorax. Bones are unremarkable. IMPRESSION: 1. Left upper extremity PICC line appear s in expected position. A right chest port is also noted. No pneum othorax. 2. Decreased lung volumes and slight inc reased opacity in the lower lobes, likely atelectasis. Signed: Manny Arcos MD Report Verified Date/Time: 02/03/2020 1 8:35:36 [facility] Giselle m Performing Organization Address City/State/Zipcode Phone Number GE RIS Transfuse Leuko-Red RBC (02/02/2020 3:12 PM CDT)Only the most recent of3 resultswithin the time period is included.CBC (Hemogram only) (02/02/2020 4:41 AM CDT) WBC 13.5 (H) 3.5 - 10.5 K/L [facility] RBC 2.00 (L) 3.93 - 5.22 M/L [facility] Hemoglobin 6.1 (L) 11.2 - 15.7 GM/DL [facility] Hematocrit 18.5 (L) 34.1 - 44.9 % [facility] MCV 92.5 79.4 - 94.8 fL [facility] MCH 30.5 25.6 - 32.2 pg [facility] MCHC 33.0 32.2 - 35.5 GM/DL [facility] RDW 17.4 (H) 11.7 - 14.4 % [facility] Platelets 106 (L) 150 - 450 K/CU MM [facility] MPV 10.4 9.4 - 12.3 fL [facility] nRBC 0 0 - 0 /100 WBC [facility] Specimen Blood Performing Organization Address [facility] Phone Number [address] [address] [place] INTRAOPERATIVE PATH REPORT - SCAN (02/01/2020 3:12 PM CDT)Only the most recent of2 resultswithin the time period is included. Narrative Performed At This result has an attachment that is no t available. Potassium-Stat Lab (01/30/2020 3:56 PM CDT)Only the most recent of5 results within the time period is included. Potassium 3.7 3.6 - 5.5 meq/L [facility] Specimen Blood, Arterial Performing Organization Address [facility] Phone Number [address] [address] [place] Sodium Na-Stat Lab (01/30/2020 3:56 PM CDT)Only the most recent of5 results within the time period is included. Sodium 133 (L) 136 - 145 meq/L [facility] Specimen Blood, Arterial Performing Organization Address [facility] Phone Number [address] [address] [place] Glucose-Stat Lab (01/30/2020 3:56 PM CDT)Only the most recent of5 resultswithin the time period is included. Glucose 224 (H) 70 - 110 mg/dL [facility] Specimen Blood, Arterial Performing Organization Address [facility] Phone Number [address] [address] [place] HGB/HCT (H&H)-Stat Lab (01/30/2020 3:56 PM CDT)Only the most recent of5 resultswithin the time period is included. Hemoglobin 10.5 (L) 12.0 - 15.0 g/dL [facility] Hematocrit 31.0 (L) 36.0 - 45.0 % [facility] Specimen Blood, Arterial Performing Organization Address City/[facility] Phone Number [facility] [address] [place] [address] [place] Blood gas, arterial (01/30/2020 3:56 PM CDT)Only the most recent of5 results within the time period is included. pH, Arterial 7.35 7.35 - 7.45 [facility] pCO2, Arterial 32 (L) 35 - 45 mmHg [facility] pO2, Arterial 319 (H) 80 - 90 mmHg [facility] O2 Sat, Arterial 99.7 (H) 96.0 - 97.0 % [facility] HCO3, Arterial 18 (L) 21 - 29 mmol/L [facility] Base Excess, Arterial -7.5 (L) -2.0 - 3.0 mmol/L [facility] Patient Temperature 35.4 C [facility] FIO2 100.0 % [facility] Specimen Blood, Arterial Performing Organization Address City/[facility] Phone Number [address] [address] [place] CBC with platelet count + automated diff (01/30/2020 3:48 PM CDT)Only the most recent of3 resultswithin the time period is included. WBC 13.6 (H) 3.5 - 10.5 K/L [facility] RBC 3.03 (L) 3.93 - 5.22 M/L [facility] Hemoglobin 9.1 (L) 11.2 - 15.7 GM/DL [facility] Hematocrit 27.1 (L) 34.1 - 44.9 % [facility] MCV 89.4 79.4 - 94.[address] [facility] MCH 30.0 25.6 - 32.[address] [facility] MCHC 33.6 32.2 - 35.5 GM/DL [facility] RDW 16.1 (H) 11.7 - 14.4 % [facility] Platelets 135 (L) 150 - 450 K/CU MM [facility] MPV 10.6 9.4 - 12.[address] [facility] nRBC 0 0 - 0 /[address] [facility] % Neutros 91 % [facility] % Lymphs 2 % [facility] % Monos 7 % [facility] % Eos 0 % [facility] % Baso 0 % [facility] # Neutros 12.34 (H) 1.56 - 6.13 K/L [facility] # Lymphs 0.28 (L) 1.18 - 3.74 K/L [facility] # Monos 0.92 (H) 0.24 - 0.36 K/L [facility] # Eos 0.00 (L) 0.04 - 0.36 K/L [facility] # Baso 0.01 0.01 - 0.08 K/L [facility] Immature 0 0 - 1 % [facility] Granulocytes-Relative [facility] Specimen Blood Performing Organization Address City/State/Zipcode Phone Number [facility] [address] [place] [address] CENTER Calcium, Ionized (01/30/2020 2:31 PM CDT)Only the most recent of4 resultswithin the time period is included. Calcium, Ion 1.07 (L) 1.12 - 1.27 mmol/L [facility] pH, Blood 7.29 [facility] Specimen Blood Performing Organization Address City/[facility]/Zipcode Phone Number [address] [address] [place] pH, arterial (01/30/2020 11:21 AM CDT) pH, Arterial 7.35 7.35 - 7.45 [facility] Specimen Blood, Arterial Performing Organization Address [facility] Hospitalcode Phone Number [address] [address] [place] Tissue Exam (01/30/2020 9:40 AM CDT)Only the most recent of3 resultswithin the time period is included. Case Report Surgical Pathology Report Case: [id number] [facility] Authorizing Provider:Dick Lisa MDCollected: 01/30/2020 09:40 AM [facility] Ordering Location: [facility] PERIOPERATIVE Received:01/30/2020 10:59 AM SERVICES Pathologist: Reinaldo Matta MD Specimens: A) - Lymph No de, RIGHT COMMON ILIAC LYMPH NODES B) - Lymph Node, RIGHT EXTERNAL ILIAC LYMPH NODES C) - Lymph Node, RIGHT OBTURATOR LYMPH NODES D) - Lymph Node, RIGHT INTERNAL ILIAC LYMPH NODES E) - Lymph Node, LEFT COMMON ILIAC LYMPH NODES F) - Lymph Node, LEFT EXTERNAL ILIAC LYMPH NODES G) - Lymph Node, LEFT OBTURATOR LYMPH NODES H) - Ureter, Left, LEFT DISTAL URETER FOR FROZEN I) - Ureter, Right, RIGHT DISTAL URETER FOR FROZEN J) - Urinary Bladder, ANTERIOR PELVIC EXENTERATION K) - Lymph Node, PRE-SACRAL LYMPH NODES L) - Appendix DIAGNOSIS A. LYMPH NODES, RIGHT COMMON ILIAC, DISSECTION: [facility] - THREE BENIGN LYMPH NODES (0/3) [facility] B. LYMPH NODES, RIGHT EXTERNAL ILIAC, DISSECTION : - FIVE BENIGN LYMPH NODES (0/5) C. LYMPH NODES, RIGHT OBTURATOR, DISSECTION: - SEVEN BENIGN LYMPH NODES (0/7) D. LYMPH NODES, RIGHT INTERNAL ILIAC, DISSECTION : - TWO BENIGN LYMPH NODES (0/2) E. LYMPH NODES, LEFT COMMON ILIAC, DISSECTION: - FOUR BENIGN LYMPH NODES (0/4) F. LYMPH NODES, LEFT EXTERNAL ILIAC, DISSECTION: - FIVE BENIGN LYMPH NODES (0/5) G. LYMPH NODES, LEFT OBTURATOR, DISSECTION: - FIVE BENIGN LYMPH NODES (0/5) H. URETER, LEFT DISTAL, EXCISION: - NO PATHOLOGIC DIAGNOSIS I. URETER, RIGHT DISTAL, EXCISION: - NO PATHOLOGIC DIAGNOSIS J. 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 SOFT TISSUE, LABELED "LYMPH NODES, PRE-SACRAL ", EXCISION: - BENIGN FIBROADIPOSE TISSUE, NO LYMPH NODES I DENTIFIED L. APPENDIX, APPENDECTOMY: - FIBROUS OBLITERATION OF THE TIP Signing Pathologist Direct Phone Line: COMMENT All of the residual [facility] invasive tumor is of the [facility] plamacytoid/signet ring cell type. SYNOPTIC REPORT URINARY BLADDER: Cystectomy, Anterior Exenteration(Bladder - J) [facility] 8th Edition - Protocol posted: 09/15/2018 SPECIMEN Procedure:Anterior exenteration TUMOR Tumor Site:[place] Histologic Type: Urothelial carcinoma, 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 Histologic Grade:High-grade Tumor Size:David ot be determined: MULTIFOCAL, LARGEST FOCIUS 1.5 CM Tumor Extension:Tumor invades periv esical soft tissue :Microscopically Lymphovascular Invasion:Not identif ied Tumor Configuration:Ulcerated MARGINS Margins:Uninvol nicole by invasive carcinoma and carcinoma in situ / noninvasive urothelial carcinoma LYMPH NODES Number of Lymph Nodes Involved:0 Number of Lymph Nodes Examined:32 PATHOLOGIC STAGE CLASSIFICATION (pTNM, AJCC 8th Edition) Primary Tumor (pT):pT3a Regional Lymph Nodes (pN):pN0 CPT Code(s) 93583 x [address] [facility] [address] [place] [address] [facility] [place] [address] X 8 [phone] x 3 [phone] CLINICAL HISTORY Preop diagnosis: Malignant [facility] neoplasm of the urinary [facility] bladder. Procedure: Radical cystectomy with creation of continent diversion, bilateral pelvic lymph node dissection. SPECIMEN SOURCE A. Right common iliac lymph [facility] nodes; B. Right external [facility] iliac lymph nodes; C. Right obturator lymph node; D. Right internal iliac lymph node; E. Left common iliac lymph nodes;F. Left external iliac lymph nodes; H. Left distal ureter; I. Right distal ureter; J. Urinary bladder; K, presacral lymph node; L. Appendix GROSS DESCRIPTION A. Received in formalin labe led with the patient's name, accession number and "right common iliac lymph nodes" is a yellow-red fibrofatty soft tissue fragment that measures 3.5 x 2.2 x 0.8 cm. The speci [facility] men is dissected to reveal two lymph nod es measuring up to 1.5 x 1.0 x 0.5 cm. [facility] Section code: A1, two lymph nodes. B. Received in formalin labe led with the patient's name, accession number and "right external iliac lymph nodes" is a red-yellow fibrofatty soft tissue fragment that measures 6.0 x 3.8 x 2.0 cm. Five l ymph nodes are identified ra nging in size from 0.5 x 0.5 x 0.5 up to the largest measuring 2.2 x 1.8 x 0.6 cm. Section code: B1, four lymph nodes; B2, one lymp h node bisected. C. Received in formalin labe led with the patient's name, accession number and "right obturator lymph node" are multiple fragments of yellow adipose tissue that measures in aggregate 8.8 x 7.0 x 2.0 cm. A surgical clip is identifie d within the specimen. The specimen is resected to reveal eight lymph nodes ranging in size from 0.5 x 0.4 x 0.4 up to the largest measuring 4.5 x 1.5 x 0.6 cm. Section code: C1, five lymph nodes; C2, two lymph nodes; C3 to C4, the largest lymph node serially sectioned. D. Received in formalin labe led with the patient's name, accession number and "right internal iliac lymph nodes" is a yellow-red fibrofatty soft tissue that measures 3.5 x 2.5 x 0.5 cm. A surgical clip is present within the specimen. No lymph nodes a re grossly identified. Section code: D1, specimen entirely submitted. E. Received in formalin labe led with the patient's name, accession number and "left common iliac lymph nodes" are multiple fragments of yellow adipose tissue that measure in aggregate, 4.0 x 4.0 x 0.8 c m. Grossly, three lymph node s are identified ranging in size from 1.5 x 0.5 x 0.5 cm up to the largest measuring 3.0 x 1.3 x 0.6 cm. Section code: E1, one lymph node; E2, two lymph nodes. F. Received in formalin labe led with the patient's name, accession number and "left external iliac lymph nodes" are multiple fragments of adipose tissue that measures in aggregate 5.8 x 5.5 x 1.3 cm. A surgical clip is identified within the specimen. Grossly, five lymph nodes are identified ranging from 0.7 x 0.6 x 0.4 up to the largest measuring 2.1 x 1.8 x 0.4 cm. Section code: F1, three lymph nodes; F2, one lym ph node; F3, one lymph node. G. Received in formalin labe led with the patient's name, accession number and "left obturator lymph node" are multiple fragments of adipose tissue that measures in aggregate 8.0 x 5.5 x 1.1 cm. A surgic al clip is identified within the specimen. The specimen is dissected to reveal 5 lymph nodes ranging in size from 0.5 x 0.4 x 0.4 up to the largest measuring 5.3 x 1.7 x 0.5 cm. Section code: G1, four lymph nodes; G2 to G3, one lymph node, serially sectioned. H. Received fresh from the O R for intraoperative frozen section consultation is a 0.8 x 0.8 x 0.5 cm soft tissue specimen. The specimen includes a ureter measuring 0.2 cm in luminal diameter. The specim en is entirely submitted for frozen section diag valerio as FSH1. I. Received fresh from the O R for intraoperative frozen section diagnosis is a 1.2 x 0.8 x 0.6 cm soft tissue specimen. The specimen shows a ureter with a lumen measuring 0.3 cm in diameter. The specime n is entirely submitted for frozen section as FS I. MH/dariana Gardner. Received in formalin labe led with the patient's name, accession number and "urinary bladder" is a specimen of radical cystectomy specimen with hysterectomy and bilateral salpingooophorectomy. The spe cimen includes a bladder (13 .5 x 8.6 x 5.8 cm), urethra (1.3 cm in length x 0.8 cm in diameter) with a Verde catheter in place, uterus (5.5 x 4.5 x 2.8 cm), cervix (3.5 x 3.5 x 3.4 cm), right tube (6.2 x 0.6 x 0.6 cm), right ovary (2.5 x 1.9 x 1.0 cm, 3.1 gm), left tube (6.5 x 0.8 x 0.6 cm), left ovary (2.5 x 1.8 x 1.1 cm, 1.9 gm), and a portion of anterior vaginal wall measuring 4.5 cm in length x 3. 5 cm in diameter. The urete rory margins are received clipped. The bladder is opened to reveal an ulcerated lesion (lesion #1) measuring 3.2 x 2.8 x 0.4 cm, on the right lateral wall extending into the r ight anterior and right post erior aspects located 6.2 cm from the urethral margin, 2.1 cm from the right ureteric margin, 2.1 cm from the right lateral margin, 5 cm from the left lateral margin and 0.3 cm from the inked posterior bladder margin. The lesion appears to be limited to the mucosa. There is a second ulcerated buck lesion measuring 1.5 x 1.0 x 0.3 cm located in the trigone along the right lateral and anterior aspect. The lesion is located 3.5 cm inferior to the lesion #1, 2.3 cm fr om the urethral margin, 1.2 cm from the right ureteric margin and 0.5 cm from the inked anterior margin. Additionally a hyperemic are a measuring 0.6 x 0.5 cm is seen on the bladder dome along the posterior wall located 0.6 cm superior to lesion #1. The remainder of the bladder mucosa is edematous and conge sted; however, no other ginny s lesions are identified. The ureteric orifices are unremarkable. The vaginal mucosa is grossl y unremarkable.The uterus shows an area of serosal disruption measuring 0.5 x 0.5 cm on the fundus along the anterior aspect. The cervical os is occluded. The ectocervix is t an-white and smooth. The en docervical canal measures 2.5 cm in length. The endometrial cavity measures 1.5 cm from [id number] and 3.5 cm in length. The endometrium measures 0.2 cm in thickness. An endometrial polyp measuring 0.6 x 0.5 x 0.5 cm is seen on the anterior and superior aspect of the endometrial cavity. The myometrium is buck and diffusely trabeculated and measures up to 1.2 cm in thickn ess. A 0.5 x 0.5 x 0.5 cm wh orled intramural myometrial nodule is present. No other lesions are grossly identified within the uterine cavity. The perivesical adipose tissue is dissected for lymph nodes. No lymph nodes are grossly identified. Ink code: bladder anterior m argin - blue; bladder posterior margin - green; bladder right lateral margin - red; bladder left lateral margin - orange; uterus anterior - blue; uterus posterior - black. Section code: J1, urethral m argin, en face; J2 to J6, bladder ulcerated lesion (lesion #1 with posterior wall); J7, lesion with closest right lateral margin; J8, anterior margin closest to the lesion; J 9, left lateral margin close st to the lesion; J10 to J12, smaller lesion (lesion #2) with closest anterior margin; J13, right ureteric orifice; J14, hyperemic bladder mucosa; J15, trigone, representativ e section; J16, bladder wall with vagina; J17 to J19, one full cross section of the uterus and cervix along the posterior wall; J20 to J22, one full cross section of the uterus and cervix with anterior wall (J20, endometrial polyp ); J23, area of uterus, serosal disruption with intramural nodule; J24, cervix with vagina and bladder wall, one full cross section; J25, right tube; J26, right ovary; J27, l eft tube; J28, left ovary; J29 to J30, perivesi mariama adipose tissue. K. Received in formalin labe led with the patient's name, accession number and "presacral lymph nodes" is a red-yellow adipose tissue fragment that measures 3.0 x 2.0 x 0.5 cm. No lymph nodes are grossly identified. Section code: K1, specimen entirely submitted. L. Received in formalin labe led with the patient's name, accession number and "appendix" is a terminal segment of an appendix measuring 4 cm in length x 1.0 cm in diameter with attached mesoappendix kobe suring 4.5 x 1.5 x 0.5 cm. T he specimen is sectioned to reveal a lumen measuring 0.4 cm in diameter. Section code: L1, appendix, surgical margin at distal tip; L2, additional leather goods sales representative sections from appendix and the mesoappendix. MH/pl INTRAOPERATIVE CONSULTATION FROZEN SECTION DIAGNOSIS: [facility] FSH: URETER, LEFT DISTAL MARGIN: - NEGATIVE FOR MALIGNANCY This is informed by Dr. Amaro to Dr. Jaimes on Ju ly 13, at 11:19 a.m. FSI. RIGHT URETER, RIGHT DISTAL MARGIN: - NEGATIVE FOR MALIGNANCY This is informed by Dr. Amaro to Dr. Jaimes on Ju ly 13 at 11:19 a.m. MICROSCOPIC DESCRIPTION A-L Performed. [facility] ER Specimen Tissue Tissue - Structure of lymph node (body s tructure) Tissue - Structure of lymph node (body s tructure) Tissue - Structure of lymph node (body s tructure) Tissue - Structure of lymph node (body s tructure) Tissue - Structure of lymph node (body s tructure) Tissue - Structure of lymph node (body s tructure) Tissue - Structure of left ureter (body structure) Tissue - Structure of right ureter (body structure) Tissue - Urinary bladder structure (body structure) Tissue - Structure of lymph node (body s tructure) Tissue - Appendix structure (body struct ure) Performing Organization Address City/State/Zipcode Phone Number [facility] [address] [place] [address] CENTER ANESTHESIA CSE BLOCK (01/30/2020 8:35 AM CDT) Narrative Performed At Nelson Moore MD 01/30/20 208:38 AM CSE Block Patient location during procedure: OR Start time: 01/30/2020 8:07 AM End time: 01/30/2020 8:13 AM Procedure Indication: procedure for pain, at surgeon's request and post-op pain management Staffing Anesthesiologist: Nelson Moore MD Performed: personally Preanesthetic Checklist Completed: patient identified, pre-op ev aluation, timeout performed, IV checked, risks and benefits discussed, m onitors and equipment checked, anesthesia consent given, prep site dry prior to draping and maximum sterile barriers were used: cap, mask, sterile gown, s terile gloves, and large sterile sheet Prep Prep: Betadine Procedures: sterile gloves, surgical mask, surgical kim t, sterile technique and prep and sterile drape applied CSE Block Patient position: sitting Patient monitoring: EKG, HR, BP and SpO2 Approach: midline landmark technique and landmark techniqu e Injection technique: CHARISSE salineNo pictur es available Region: lumbar Level:3-4 Spinal Needle Needle type: Pencan Needle gauge: 25 G Epidural needle length (in): 12.7cm. Introducer used Epidural Needle Needle type: Tuohy Needle gauge: 17 G Needle length 2: 8.9cm. Catheter Catheter type: end hole Catheter size: 19 G Assessment Events: intrathecal medication injection (0.15mg duramorph given )injection not painful, no injection res istance, no paresthesia, no cerebrospinal fluid, no intravascular injection, no ep idural blood return and no barbotage patient tolerated the procedure well, johny canela had no immediate complications and patient had adequate l evel of anesthesia and negative Allis clamp test Procedure Note Nelson Moore MD - 01/30/2020 8 :35 AM CDT CSE Block Patient location during procedure: OR Start time: 01/30/2020 8:07 AM End time: 01/30/2020 8:13 AM Procedure Indication: procedure for pain , at surgeon's request and post-op pain management Staffing Anesthesiologist: Nelson Moore MD Performed: personally Preanesthetic Checklist Completed: patient identified, pre-op ev aluation, timeout performed, IV checked, risks and benefits discussed, monitors and equipment checked, anesthesia consent given, prep site dry prior to draping and maximum sterile barriers were used: cap, mask, s terile gown, sterile gloves, and large sterile sheet Prep Prep: Betadine Procedures: sterile gloves, surgical mas k, surgical hat, sterile technique and prep and sterile drape applied CSE Block Patient position: sitting Patient monitoring: EKG, HR, BP and SpO2 Approach: midline landmark technique and landmark techniqu e Injection technique: CHARISSE salineNo pictur es available Region: lumbar Level: 3-4 Spinal Needle Needle type: Pencan Needle gauge: 25 G Epidural needle length (in): 12.7cm. Introducer used Epidural Needle Needle type: Tuohy Needle gauge: 17 G Needle length 2: 8.9cm. Catheter Catheter type: end hole Catheter size: 19 G Assessment Events: intrathecal medication injection (0.15mg duramorph given )injection not painful, no injection resistance, no paresthesia, no cerebrospinal fluid, no intravascular injection, no epidural blood return and no barbotage patient tolerated the procedure well, johny canela had no immediate complications and patient had adequate level of anesthesia and negative Allis clamp test ABORH, manual (01/30/2020 7:15 AM CDT) ABO Grouping A [facility] Rh Factor POS [facility] Specimen Blood Performing Organization Address [facility] Phone Number [address] [address] Type and screen, automated (01/30/2020 7:04 AM CDT) ABO/RH AUTOMATED (BEAKER) A POSITIVE [facility] Ab Scrn NEGATIVE [facility] Specimen Blood Performing Organization Address [facility] Phone Number [address] [address] CYTOLOGY REQUEST (01/18/2020 2:09 PM CDT) Cytology See Separate Report [facility] Specimen Washings Performing Organization Address City/State/Zipcode Phone Number [facility] [address] [place] [phone] CENTER Cytology (01/18/2020 2:09 PM CDT) Case Report Medical Cytology Report Case: [id number] [facility] Authorizing Provider:Dick Lisa MDCollected: 01/18/2020 02:09 PM [facility] Ordering Location: [facility] PERIOPERATIVE Received:01/18/2020 03:29 PM SERVICES Pathologist: Reinaldo Matta MD Specimen:Urine, Blad juan f Wash DIAGNOSIS URINE, BLADDER WASHING (CYTOSPINS): [facility] - NEGATIVE FOR MALIGNANCY [facility] Signing Pathologist Direct Phone Line: CPT Code(s) [address] [facility] ALTH [facility] CLINICAL DATA high risk possibly muscle [facility] invasive bladder cancer with [facility] pasmacytoid differentiation nonresponsive to BCG s/p 4x ddMVAC who presents for restaging TURBT prior to RC SPECIMEN SOURCE URINE, BLADDER WASHING [facility] GROSS DESCRIPTION 40 mls colorless fluid; 4 cytospins [facility] Collected: [id number] [facility] MEDICAL CE NTER Received: [id number] STATEMENT OF ADEQUACY Satisfactory [facility] ER Gross assessment was [facility] performed at [place], Department of [facility] Pathology, [address] [place] [phone], Technical component was [facility] performed at [place], Department of [facility] Pathology, [address] [place] [address], Professional component [facility] was performed at [place], Department of [facility] Pathology, [address] [facility], [place] [address], Specimen Washings Narrative Performed At This result has an attachment that is no t available. Performing Organization Address City/State/Zipcode Phone Number [facility] [address] [place], [place] [phone] CENTER ECG 12 lead (01/18/2020 12:44 PM CDT) Specimen Narrative Performed At Ventricular Rate 52 BPM GE MUSE Atrial Rate 52 BPM P-R Interval 154 ms QRS Duration 106 ms Q-T Interval 510 ms QTC Calculation(Bazett) 474 ms P Union 70 degrees R Union 47 degrees T Union 26 degrees Sinus bradycardia Otherwise normal ECG Confirmed by MD GUSTAFSON JOSEPH P ([id number]) on 01/19/2020 6:15:07 AM Procedure Note Interface, External Ris In - 01/19/2020 6:15 AM CDT Ventricular Rate 52 BPM Atrial Rate 52 BPM P-R Interval 154 ms QRS Duration 106 ms Q-T Interval 510 ms QTC Calculation(Bazett) 474 ms P Union 70 degrees R Union 47 degrees T Union 26 degrees Sinus bradycardia Otherwise normal ECG Confirmed by MD GUSTAFSON JOSEPH P ([id number]) on 01/19/2020 6:15:07 AM Performing Organization Address City/State/Zipcode Phone Number GE MUSE IR Port-a-Cath Placement (11/01/2019 3:08 PM CDT) Specimen Narrative Performed At FINAL REPORT GE RIS PROCEDURE: Venous port placement Procedural Personnel Attending physician(s): Madalyn Nicole MD Fellow physician(s): Jordin Lopez MD Resident physician(s): None Professional Driver(s): Neema Samano MD Pre-procedure diagnosis: Bladder cancer Post-procedure diagnosis: Same Indication: Administration of chemothera py Additional clinical history: None Complications: No immediate complication s. IMPRESSION: Insertion of right-sided power-injectabl e single-lumen tunneled chest port, with catheter tip in the expected location of the cavoatrial junction. Plan: The port may be used immediately. PROCEDURE SUMMARY: - Venous access with ultrasound guidance - Tunneled port insertion under fluorosc opic guidance - Additional procedure(s): None Pre-procedure Consent: Informed consent for the proced ure including risks, benefits and alternatives was obtained and time-o ut was performed prior to the procedure. Preparation (MIPS): The site was prepare d and draped using all elements of maximal sterile barrier tech nique including sterile gloves, sterile gown, cap, mask, large s terile sheet, sterile ultrasound probe cover, hand hygiene and cutaneous antisepsis with 2% chlorhexidine. Medical reason for site preparation exce ption (MIPS): Not applicable Anesthesia/sedation Level of anesthesia/sedation: Moderate s edation (conscious sedation) 1mg Versed, 50mcg Fentanyl Anesthesia/sedation administered by: Ind ependent trained observer under attending supervision with continu ous monitoring of the patient\\X2019\\s level of consciousness a nd physiologic status Total intra-service sedation time (minut es): 30 Access Local anesthesia was administered. The v essel was sonographically evaluated and determined to be patent. R eal time ultrasound was used to visualize needle entry into the vesse l and a permanent image was stored. Vein accessed: Internal jugular vein Access technique: Micropuncture set with 21 gauge needle Port placement An incision was made at the upper chest, a pocket was created, and the catheter was tunneled subcutaneously to the venous access site and trimmed to appropriate length. The p ort was inserted into the pocket and the catheter was advanced via a peel-away sheath into the vein under fluoroscopic guidance. The po rt was not sutured into the pocket. Catheter tip location was fluoro scopically verified and a permanent image was stored. Port placed: Bard Catheter size (Nauruan): 6 Catheter flush: Heparin (100 units/mL) Closure The access site and incision were closed and sterile dressing(s) were applied. Access site closure technique: Tissue ad hesive Incision closure technique: Absorbable s uture and tissue adhesive Patient discharged from procedure suite with device accessed: No Contrast Contrast agent: None Contrast volume (mL): N/A Radiation Dose Fluoroscopy time (minutes): 0.3 Reference air kerma (mGy): 2.6 Additional Details Additional description of procedure: Non e Equipment details: None Specimens removed: None Estimated blood loss (mL): Less than 10 Standardized report: [email or web address] Attestation Signer name: Madalyn Nicole I attest that I was present for the enti re procedure. I reviewed the stored images and agree with the report as written. Signed: Madalyn Nicole MD Report Verified Date/Time:11/01/2019 15:29:20 Reading Location: [place] [address] Angio Body Reading Room Procedure Note Interface, External Ris In - 11/01/2019 3:31 PM CDT FINAL REPORT PROCEDURE: Venous port placement Procedural Personnel Attending physician(s): Madalyn Nicole MD Fellow physician(s): Jordin Lopez MD Resident physician(s): None Professional Driver(s): Neema Samano MD Pre-procedure diagnosis: Bladder cancer Post-procedure diagnosis: Same Indication: Administration of chemothera py Additional clinical history: None Complications: No immediate complication s. IMPRESSION: Insertion of right-sided power-injectabl e single-lumen tunneled chest port, with catheter tip in the expected location of the cavoatrial junction. Plan: The port may be used immediately. PROCEDURE SUMMARY: - Venous access with ultrasound guidance - Tunneled port insertion under fluorosc opic guidance - Additional procedure(s): None Pre-procedure Consent: Informed consent for the proced ure including risks, benefits and alternatives was obtained and time-o ut was performed prior to the procedure. Preparation (MIPS): The site was prepare d and draped using all elements of maximal sterile barrier tech nique including sterile gloves, sterile gown, cap, mask, large s terile sheet, sterile ultrasound probe cover, hand hygiene and cutaneous antisepsis with 2% chlorhexidine. Medical reason for site preparation exce ption (MIPS): Not applicable Anesthesia/sedation Level of anesthesia/sedation: Moderate s edation (conscious sedation) 1mg Versed, 50mcg Fentanyl Anesthesia/sedation administered by: Ind ependent trained observer under attending supervision with continu ous monitoring of the patient\\X2019\\s level of consciousness a nd physiologic status Total intra-service sedation time (minut es): 30 Access Local anesthesia was administered. The v essel was sonographically evaluated and determined to be patent. R eal time ultrasound was used to visualize needle entry into the vesse l and a permanent image was stored. Vein accessed: Internal jugular vein Access technique: Micropuncture set with 21 gauge needle Port placement An incision was made at the upper chest, a pocket was created, and the catheter was tunneled subcutaneously to the venous access site and trimmed to appropriate length. The p ort was inserted into the pocket and the catheter was advanced via a peel-away sheath into the vein under fluoroscopic guidance. The po rt was not sutured into the pocket. Catheter tip location was fluoro scopically verified and a permanent image was stored. Port placed: Bard Catheter size (Nauruan): 6 Catheter flush: Heparin (100 units/mL) Closure The access site and incision were closed and sterile dressing(s) were applied. Access site closure technique: Tissue ad hesive Incision closure technique: Absorbable s uture and tissue adhesive Patient discharged from procedure suite with device accessed: No Contrast Contrast agent: None Contrast volume (mL): N/A Radiation Dose Fluoroscopy time (minutes): 0.3 Reference air kerma (mGy): 2.6 Additional Details Additional description of procedure: Non e Equipment details: None Specimens removed: None Estimated blood loss (mL): Less than 10 Standardized report: [email or web address] Attestation Signer name: Madalyn Nicole I attest that I was present for the enti re procedure. I reviewed the stored images and agree with the report as written. Signed: Madalyn Nicole MD Report Verified Date/Time: 11/01/2019 1 5:29:20 Reading Location: [place] [address] Angio Body Reading Room Performing Organization Address City/State/Zipcode Phone Number GE RIS aPTT (11/01/2019 9:45 AM CDT) PTT 29.5 22.5 - 36.0 seconds [facility] Specimen Blood Performing Organization Address City/State/Zipcode Phone Number [address] [place] [address] [place] Prothrombin time/INR (11/01/2019 9:45 AM CDT) Protime 13.5 11.9 - 14.2 seconds [facility] INR 1.1 <=5.9 [facility] Specimen Blood Narrative Performed At Effective 12/15/2018: PT Reference Range [facility] Change New: 11.9-14.2Previous: 11.7-14.7 RECOMMENDED COUMADIN/WARFARIN INR THERAPY RANGES STANDARD DOSE: 2.0-3.0Includes: PROPHYLAXIS for venous thrombosis, systemic embolization; TREATMENT for venous thrombosis and/or pulmonary embolus. HIGH RISK: Target INR is 2.5-3.5 for patients wiht mechanical heart valves. Performing Organization Address City/State/Zipcode Phone Number [address] chest with IV contrast (10/27/2019 1:15 PM CDT) Specimen Narrative Performed At FINAL REPORT [facility] Chest with contrast History:Malignant neoplasm of bladder Comparison:none Technique: serial axial imaging was perf ormed following up to 100cc of non ionic iodinated intravenous contr ast as per departmental protocol.Multiplanar images are elliot nstructed and reviewed when indicated. This CT examination is performed using o ne or more of the following dose reduction techniques: Automated exposure control, adjustment o f the mA and /or kV according to patient size, and/or use of iterative reconstruction technique. Findings: No mediastinal or hilar lymphadenopathy. Normal size heart.No pericardial eff usion. No thoracic aortic aneurysm or dissectio n.No central pulmonary arterial filling defect. Patent central airways.No pleural ef fusion or pneumothorax.Mild biapical lung scarring. The lungs are ot herwise clear. No significant findings in the partially imaged abdomen. No aggressive osseous lesion. Impression: No evidence of metastatic disease in the chest. Signed: Davide Delatorre MD Report Verified Date/Time:10/27/2019 13:26:23 Reading Location: [address] Reading Room Procedure Note Interface, External Ris In - 10/27/2019 1:28 PM CDT FINAL REPORT CT Chest with contrast History:Malignant neoplasm of bladder Comparison:none Technique: serial axial imaging was perf ormed following up to 100cc of non ionic iodinated intravenous contr ast as per departmental protocol. Multiplanar images are recons tructed and reviewed when indicated. This CT examination is performed using o ne or more of the following dose reduction techniques: Automated exposure control, adjustment o f the mA and /or kV according to patient size, and/or use of iterative reconstruction technique. Findings: No mediastinal or hilar lymphadenopathy. Normal size heart. No pericardial effus ion. No thoracic aortic aneurysm or dissectio n. No central pulmonary arterial filling defect. Patent central airways. No pleural effu светлана or pneumothorax. Mild biapical lung scarring. The lungs are ot herwise clear. No significant findings in the partially imaged abdomen. No aggressive osseous lesion. Impression: No evidence of metastatic disease in the chest. Signed: Davide Delatorre MD Report Verified Date/Time: 10/27/2019 1 3:26:23 Reading Location: [address] Reading Room Performing Organization Address City/State/Zipcode Phone Number [facility] CT abdomen/pelvis without & with IV contrast (10/12/2019 3:47 PM CDT) Specimen Narrative Performed At FINAL REPORT [facility] CT of the abdomen and pelvis, with and w ithout contrast Clinical History:C67.8 Technique: CT of the abdomen and pelvis is performed before and after intravenous contrast administration. This exam was performed according to our departmental dose optim ization program which includes automated exposure control, adj ustment of the mA and/or kV according to patient's size and/or use o f iterative reconstructive technique. Comparison Film:None Punctate nonobstructive stone in right k idney. Discussion: Visualized lower thorax is unremarkable. No liver lesion is identified. There is no biliary ductal dilatation, gallbladder is unremarkable. Spleen, pancreas, adrenal glands are unr emarkable. Kidneys demonstrate no hydronephrosis, o r mass. There is a punctate nonobstructive stone in the lower pole o f the right kidney. There is no filling defect in the opacified porti on of the renal collecting system. No evidence of bowel obstruction or abno rmal bowel wall thickening. Normal appendix. In the pelvis, there is mild wall thicke nemesio of the right aspect of the bladder, but no discrete mass is see n. Uterus and adnexa are unremarkable. Osseous structures demonstrate degenerat libby changes. No suspicious bony lesion is identified. No adenopathy , or ascites. Impression: Mild right-sided bladder wall thickening . No adenopathy or distant metastasis is i dentified. Signed: Beto Bianchi MD Report Verified Date/Time:10/12/2019 16:53:35 Reading Location: [facility] C0X [facility] Reading Room Procedure Note Interface, External Ris In - 10/12/2019 4:55 PM CDT FINAL REPORT CT of the abdomen and pelvis, with and w ithout contrast Clinical History: C67.8 Technique: CT of the abdomen and pelvis is performed before and after intravenous contrast administration. Th is exam was performed according to our departmental dose optim ization program which includes automated exposure control, adj ustment of the mA and/or kV according to patient's size and/or use o f iterative reconstructive technique. Comparison Film: None Punctate nonobstructive stone in right k idney. Discussion: Visualized lower thorax is unremarkable. No liver lesion is identified. There is no biliary ductal dilatation, gallbladder is unremarkable. Spleen, pancreas, adrenal glands are unr emarkable. Kidneys demonstrate no hydronephrosis, o r mass. There is a punctate nonobstructive stone in the lower pole o f the right kidney. There is no filling defect in the opacified porti on of the renal collecting system. No evidence of bowel obstruction or abno rmal bowel wall thickening. Normal appendix. In the pelvis, there is mild wall thicke nemesio of the right aspect of the bladder, but no discrete mass is see n. Uterus and adnexa are unremarkable. Osseous structures demonstrate degenerat libby changes. No suspicious bony lesion is identified. No adenopathy , or ascites. Impression: Mild right-sided bladder wall thickening . No adenopathy or distant metastasis is i dentified. Signed: Beto Bianchi MD Report Verified Date/Time: 10/12/2019 1 6:53:35 Reading Location: [facility] C0X [facility] Reading Room Performing Organization Address City/State/Zipcode Phone Number GE RIS XR Chest 2 Views (10/12/2019 3:12 PM CDT) Specimen Narrative Performed At FINAL REPORT GE RIS CHEST RADIOGRAPH - 2 VIEWS INDICATION: C67.8, malignant neoplasm of bladder at overlapping sites. COMPARISON: None FINDINGS: LINES: None LUNGS: The lungs are well inflated. Nodu lar opacities project over the right lower lung, which appear high density. No evidence of pneumonia or pulmonary edema. PLEURA: No evidence of pleural effusion or pneumothorax. HEART AND MEDIASTINUM: The cardiomediast inal silhouette is unremarkable. Atherosclerotic calcificat ions of the aortic arch. BONES: Mild loss of vertebral body heigh t in the lower thoracic spine. Diffuse osteopenia. UPPER ABDOMEN: No evidence of free intra peritoneal air. IMPRESSION: Right lower lung nodular opacities may r epresent superimposed vessels or granulomas. However in the setting of malignancy, a follow-up chest CT is suggested for further evalua tion. Diffuse osteopenia. Mild loss of vertebr al body height in the lower thoracic spine, age indeterminate, sugge st clinical correlation. Signed: Bina Drake MD Report Verified Date/Time:10/13/2019 09:24:28 Reading Location: [place] [address] Procedure Note Interface, External Ris In - 10/13/2019 9:27 AM CDT FINAL REPORT CHEST RADIOGRAPH - 2 VIEWS INDICATION: C67.8, malignant neoplasm of bladder at overlapping sites. COMPARISON: None FINDINGS: LINES: None LUNGS: The lungs are well inflated. Nodu lar opacities project over the right lower lung, which appear high density. No evidence of pneumonia or pulmonary edema. PLEURA: No evidence of pleural effusion or pneumothorax. HEART AND MEDIASTINUM: The cardiomediast inal silhouette is unremarkable. Atherosclerotic calcificat ions of the aortic arch. BONES: Mild loss of vertebral body heigh t in the lower thoracic spine. Diffuse osteopenia. UPPER ABDOMEN: No evidence of free intra peritoneal air. IMPRESSION: Right lower lung nodular opacities may r epresent superimposed vessels or granulomas. However in the setting of malignancy, a follow-up chest CT is suggested for further evalua tion. Diffuse osteopenia. Mild loss of vertebr al body height in the lower thoracic spine, age indeterminate, sugge st clinical correlation. Signed: Bina Drake MD Report Verified Date/Time: 10/13/2019 0 9:24:28 Reading Location: [facility] Giselle m 3 - B01.625 Performing Organization Address City/State/Zipcode Phone Number GE RIS after 03/26/2019 Insurance Payer Benefit Plan / Subscriber ID Type Phone Address Group BLUE CROSS/BLUE BCBS HMO xxxxxxxxxxxx HMO/POS [phone] [address] [place] [address] [place]UE [place]MNITY [place] xxxxxxxxxxxx PPO [id number] 2 [address] [place] [address] CDC REVIEW CDC REVIEW xxxxxxxx [place] [address] [place] ([place]) [place] [address] Advance Directives For more information, please contact:[address] [phone] Code Status Date Activated Date Inactivated Comments Full Code 01/30/2020 6:58 PM 02/08/2020 2:24 AM This code status was determined by: Patient Full Code 11/01/2019 3:49 PM 11/04/2019 11:57 AM This code status was determined by: Patient
--- OUTSIDE RECORDS SUMMARY | 2020-03-26 09:22 | XMS REPORT | Continuity of Care Document ---
:1945 Author Organization [facility] t Address [address] [place] [address] Care Team Providers Name Role Phone Lucy Kuo MD Primary Care Physician Eyad Yen MD Attending Clinician Eyad Yen MD Attending Clinician GIANCARLO HENRIQUEZ Attending Clinician Unavailable Giancarlo Henriquez MD Attending Clinician Rip Warren MD Attending Clinician Nehemias MARTIN Attending Clinician Michelle Marinelli CRNA Attending Clinician Keith Fuentes MD Attending Clinician C-Arm, Siemens Attending Clinician Chas MARTIN Attending Clinician 1, [address] Room Attending Clinician Unavailable Uzma Luna Attending Clinician Deric Wise MD Attending Clinician EYAD YEN Attending Clinician Unavailable Js Nicole MD Attending Clinician Jin Larry MD Attending Clinician Rudy Henriquez MD Attending Clinician GIANCARLO HENRIQUEZ Admitting Clinician Unavailable EYAD YEN Admitting Clinician Unavailable Payers Payer Name Policy Type Policy Number Effective Date Expiration Source Date BLUE CROSS/BLUE xxxxxxxxxxxx [facility] SHIELDBCBS HMO [facility] - BLUE/ESSENTIALSxxxxxx Med ical [id number] [address], [place] [address] [facility] REVIEWCDC xxxxxxxx [facility] REVIEWxxxxxxxxPO [place], [place] Medical [address] Center Problems Condition Condition Condition Status Onset Resolution Last Treating Co mments Source Name Details Category Date Date Treatment Clinician Date Urothelial Urothelial Disease Active [facility] cancer cancer 01-29 [facility] - 00:[facility]: Medical 00 [place] Bladder Bladder Disease [facility] Medical 00 [place] Malignant Malignant Problem Active [facility] neoplasm neoplasm [facility] - of urinary of urinary Me moria bladder, bladder, l unspecifie unspecifie Ou tpati d site d site ent Clinics Malignant Malignant Problem Active [facility] neoplasm neoplasm [facility] - of of Memoria overlappin overlappin l g sites of g sites of Ou tpati bladder bladder ent Clinics Allergies, Adverse Reactions, Alerts Allergy Allergy Status Severity Reaction(s) Onset Inactive Treating Comm ents Source Name Type Date Date Clinician Sulfa Propensi Active Swelling [facility] (Sulfona ty to 10-09 [facility] - mide adverse 00:00: Medical Antibiot reaction 00 Center ics) s Social History Social Habit Start Date Stop Date Quantity Comments Source History SDOH Alcohol [facility] - Std Drinks [facility] History CTOH Alcohol [facility] - Binge [facility] Sex Assigned At [facility] History SDOH Alcohol 2019-10-10 2019-10-10 1 [facility] - Frequency 00:00:00 00:00:00 [facility] Smoking Status Start Date Stop Date Source Never smoker [facility] M edical [place] Medications Ordered Filled Start Stop Current Ordering Indication Dosage Frequency Signature Comments Components Source Medication Medication Date Date Medication? Clinician (SIG) Name Name nitrofurant 2020- No 100mg Q.5D Take [address] oin, 02-05 capsule [facility] - macrocrysta 00:00: 23:59 (100 mg Me dical l-monohydra 00 :00 total) by [facility] te, mouth 2 (MACROBID) (two) 100 MG times capsule daily for 3 days Please start day before follow up appointmen t for stent removal. enoxaparin 2019- No 40mg Q24H Inject 0.[address] (LOVENOX) 02-03 08-17 mLs (40 mg Alexia es - 40 mg/0.4 00:00: 23:59 total) Medic al mL Syrg 00 :00 subcutaneo Center usly daily for 30 days. acetaminoph 2019- 2020- No 1{tbl} Take [address] en-codeine 02-03 tablet by Alexia kinsey - (TYLENOL 00:00: 23:59 mouth Medical #3) 300-30 00 :00 every 6 Center mg per (six) tablet hours as needed for up to 10 days. Max Daily Amount: 4 tablets docusate 2019-2019- No 100mg Take 1 [facility] t sodium 02-03 capsule Wilver - (COLACE) 00:00: 23:59 (100 mg Medic al 100 MG 00 :00 total) by [place] capsule mouth 2 (two) times daily as needed for Constipati on for up to 10 days. potassium 2019-0 Yes 10meq QD Take [address] chloride 7-10 mEq by Wilver - (MICRO-K) 13:18: mouth Medical 10 mEq CR 09 daily . Center capsule hydrOXYzine 2019-0 Yes anxious 50mg Q.[id number] Take [address] (ATARAX) 25 7-10 [id number] by mouth 3 [facility] - MG tablet 13:18: 3D (three) Medic al 09 times Center daily . spironolact 2020-0 2020- No 1{tbl} QD Take [address] one-hydroCH 7-10 07-10 tablet by Marquita Mendez LOROthiazid 13:16: 00:00 mouth Medi mariama e 07 :00 daily. Center (ALDACTAZID E) 25-25 mg per tablet HYDROcodone 2019-0 2020- No 1{tbl} Take [address] -acetaminop 01-17 07- tablet by Marquita Mendez hen (NORCO 11:44: 00:00 mouth Medic al 7.5-325) 51 :00 every 6 Center 7.5-325 mg (six) per tablet hours as needed for Pain. nitrofurant 2020-0 2020- No 100mg Q.5D Take [address] oin, 01-17 capsule [facility] - macrocrysta 00:00: 23:59 (100 mg Me dical l-monohydra 00 :00 total) by [facility] ter te, mouth 2 (MACROBID) (two) 100 MG times capsule daily for 7 days. phenazopyri 2020-0 2020- No 200mg Take [address] dine 01-17 tablet [facility] - (PYRIDIUM) 00:00: 23:59 (200 mg Med ical 200 MG 00 :00 total) by Center tablet mouth 3 (three) times daily as needed for up to 3 days. phenazopyri 2020-0 2020- No 200mg Take [address] dine 10-1330 tablet [facility] - (PYRIDIUM) 00:00: 23:59 (200 mg Med ical 200 MG 00 :00 total) by Center tablet mouth 3 (three) times daily as needed for up to 3 days. nitrofurant 2020-0 2020- No 100mg Q.5D Take [address] oin, 10-13 capsule [facility] - macrocrysta 00:00: 23:59 (100 mg Me dical l-monohydra 00 :00 total) by Hali ter te, mouth 2 (MACROBID) (two) 100 MG times capsule daily for 3 days. TURMERIC 2020-0 Yes Take by [facility] ORAL - mouth. [facility] - 17:04: Medical 00 [place] MAGNESIUM 2020-0 Yes Take by [facility] t GLYCINATE - mouth. [facility] - ORAL 16:18: Medical 48 [place] UNKNOWN 2020-0 Yes L-Theanine [facility] 3-23 200 mg [facility]ukes - 16:18: daily . Medical 48 [place] ascorbic 2020-0 Yes 500mg QD Take [address] acid, 3-23 mg by [facility]ukes - vitamin C, 16:18: mouth Medica l (VITAMIN C) 48 daily. [place] 500 MG tablet multivitami 2020-0 Yes 1{capsu QD Take [address] n capsule 10-09 le} capsule by Luke s - 16:18: mouth Medical 47 daily. Center vit A/C/E 2020-0 Yes QD Take by [facility] t ac/ZnOx/cup 3-23 mouth [facility] - rory oxide 16:18: daily. Medica l (EYE 47 Center VITAMIN AND MINERALS ORAL) b complex 2020-0 Yes 1{capsu QD Take [address] vitamins 3-23 le} capsule by [facility] - capsule 16:18: mouth Medical 47 daily. Center calcium 2020-0 Yes 1{tbl} Q.5D Take [address] citrate-vit 3-23 tablet by Alexia es - kuo D 16:18: mouth 2 Medical (CITRACAL+D 47 (two) Center ) 315-200 times mg-unit per daily. tablet omega-3s-dh 2020-0 Yes QD Take by [facility] a-epa-fish 3-23 mouth [facility] - oil (FISH 16:18: daily. Medica l OIL) 120 47 Center mg-180 mg- 60 mg-1,200 mg CpDR lactobacill 2020-0 Yes 1{capsu QD Take [address] us 3-23 le} capsule by Wilver - rhamnosus, 16:18: mouth Medica l GG, 47 daily. Center (CULTURELLE ) 10 billion cell capsule polycarboph 2020-0 Yes 625mg [id number] Take [address] il 3-23 [id number] mg by Luterrence - (FIBERCON) 16:18: 3D mouth 3 Medi mariama 625 mg 47 (three) Center tablet times daily. biotin 2020-0 Yes QD Take by [facility] 2,500 mcg 3-23 mouth [facility] - Cap 16:18: daily. Medical 47 Center triamterene 2020-0 Yes 1{capsu QD Take [address] -hydroCHLOR 3-23 le} capsule by Marquita kes - Othiazide 16:18: mouth Medical (DYAZIDE) 46 every Center 37.5-25 mg morning. per capsule levothyroxi 2020-0 Yes 125ug Take [address] ne 3-23 mcg by Wilver - (SYNTHROID, 16:18: mouth Medic al LEVOTHROID) 46 Every Center 125 MCG morning on tablet an empty stomach. gabapentin 2020-0 Yes 300mg QD Take [address] (NEURONTIN) 3-23 mg by [facility]ukes - 300 MG 16:18: mouth Medical capsule 46 daily. Center atorvastati 2020-0 Yes 20mg QD Take [address] n (LIPITOR) 3-23 by mouth Luke s - 20 MG 16:18: daily. Medical tablet 46 Center lamoTRIgine 2019-0 Yes 50mg QD Take [address] (LAMICTAL) 3-23 by mouth [facility]ukes - 25 MG 16:18: daily. Medical tablet 46 Center baclofen 2019-0 Yes 10mg Q.5D Take [address] (LIORESAL) 3-23 by mouth 2 Alexia es - 10 MG 16:18: (two) Medical tablet 46 times Center daily. Gabapentin Gabapentin Yes [place] [address] [facility] Clonazepam Clonazepam Yes [place] [address] [facility] [facility] at bedtime [facility] Fiber Fiber Yes [place] as [facility] Formula Formula Casi directed L ukes - Memoria l Outpati ent Clinics Fish Oil Fish Oil Yes [place] [address] Casi [facility] Gabapentin Gabapentin Yes [place] [address] Casi [facility] Atorvastati Atorvastati Yes [place] [address] n Calcium n Calcium [place] [facility] Clin[facility] Multivitami Multivitami Yes [place] as [facility] n n Casi directed [facility] Magnesium Magnesium Yes [place] [address] [facility] with a [facility]ukes - meal Memoria l Outpati ent Clinics Turmeric Turmeric Yes [place] as [facility] Curcumin Curcumin [place] directed [facility] Probiotic Probiotic Yes [place] [facility] Casi directed [facility] Potassium Potassium Yes [place] [address] Bicarb-Citr Bicarb-Citr [place] Lukes - ic Acid ic Acid Memoria l Outpati ent Clinics Levothyroxi Levothyroxi Yes [place] [address] ne Sodium ne Sodium [place] on an [facility]ukes - empty Memoria stomach in l the Outpati morning ent Clinics Super B Super B Yes [place] as [facility] Complex Complex [place] directed L [facility] - [facility] Clinics Vital Signs Vital Name Observation Time Observation Value Comments Source Systolic blood 2020-02-08 00:20:00 129 mm[Hg] [facility] Diastolic blood 2020-02-08 00:20:00 61 mm[Hg] [facility] Heart rate 2020-02-08 00:20:00 65 /min [facility] Body temperature 2020-02-08 00:20:00 37.22 Ilana [facility] Respiratory rate 2020-02-08 00:20:00 18 /min [facility] Oxygen saturation in 2020-02-08 00:20:00 96 /min [facility] Arterial blood by Medical Ce nter Pulse oximetry Body height 2020-01-30 18:49:00 157.5 cm [facility] Body weight Measured 2020-01-30 18:49:00 68.493 kg [facility] BMI 2020-01-30 18:49:00 27.62 kg/m2 [facility] Procedures Procedure Date / Time Performing Clinician Source Performed RHYTHM STRIP - SCAN 2020-02-08 11:00:15 Provider, Default [facility] SARS-COV2/RT-PCR ([facility] & 2020-02-07 13:42:[address] [facility] - REF LABS) [facility] SARS-COV-2(COVID19)HIGHRIS 2020-02-07 13:42:[address] [facility] KRT-PCR [facility] HEMOGLOBIN AND HEMATOCRIT 2020-02-06 13:51:00 Wilver [facility] URINE CULTURE 2020-02-06 06:30:00 Jamey Merritt [facility] BASIC METABOLIC PANEL (7) 2020-02-06 05:38:[address] [facility] HEMOGLOBIN AND HEMATOCRIT 2020-02-06 05:38:00 Popat, [facility] MAGNESIUM 2020-02-06 05:38:00 Popat, [facility] PHOSPHORUS 2020-02-06 05:38:00 Popat, [facility] BASIC METABOLIC PANEL (7) 2020-02-05 06:55:00 Popat, [facility] MAGNESIUM 2020-02-05 06:55:00 Popat, [facility] PHOSPHORUS 2020-02-05 06:55:00 Popat, [facility] HEMOGLOBIN AND HEMATOCRIT 2020-02-05 04:25:00 Popat, [facility] TRANSFUSION SERVICE REPORT 2020-02-04 18:00:53 Provider, [facility] BASIC METABOLIC PANEL (7) 2020-02-04 05:27:00 Popat, [facility] HEMOGLOBIN AND HEMATOCRIT 2020-02-04 05:27:00 Popat, [facility] MAGNESIUM 2020-02-04 05:27:00 Popat, [facility] PHOSPHORUS 2020-02-04 05:27:00 Popat, [facility] PREPARE LEUKO-REDUCED RBC 2020-02-03 23:54:00 Leila Powers [facility] TRANSFUSION SERVICE REPORT 2020-02-03 18:01:02 Provider, [facility] XR CHEST 1 VIEW 2020-02-03 17:04:00 Dick Henriquez [facility] - PORTABLE/BEDSIDE Medical Center BASIC METABOLIC PANEL (7) 2020-02-03 06:38:00 Popat, [facility] HEMOGLOBIN AND HEMATOCRIT 2020-02-03 06:38:00 Popat, [facility] MAGNESIUM 2020-02-03 06:38:00 Popat, [facility] PHOSPHORUS 2020-02-03 06:38:00 Popat, [facility] HEMOGLOBIN AND HEMATOCRIT 2020-02-02 19:12:00 Gabino Tomlinson [facility] TRANSFUSE LEUKO-REDUCED 2020-02-02 15:12:[address] [facility] RED BLOOD CELLS [facility] CBC (HEMOGRAM ONLY) 2020-02-02 04:41:[address] [facility] BASIC METABOLIC PANEL (7) 2020-02-02 03:39:00 Popat, [facility] HEMOGLOBIN AND HEMATOCRIT 2020-02-02 03:39:00 Popat, [facility] MAGNESIUM 2020-02-02 03:39:00 Popat, [facility] PHOSPHORUS 2020-02-02 03:39:00 PopatFormerly [facility] TRANSFUSION SERVICE REPORT 2020-02-01 18:00:53 Provider, [facility] INTRAOPERATIVE PATH REPORT 2020-02-01 15:12:38 Provider, [facility] INTRAOPERATIVE PATH REPORT 2020-02-01 15:12:37 Provider, [facility] HEMOGLOBIN AND HEMATOCRIT 2020-02-01 10:41:00 Leila Powers [facility] BASIC METABOLIC PANEL (7) 2020-02-01 04:58:00 Popat, [facility] HEMOGLOBIN AND HEMATOCRIT 2020-02-01 04:58:00 Popat, [facility] MAGNESIUM 2020-02-01 04:58:00 Popat, [facility] PHOSPHORUS 2020-02-01 04:58:00 PopatFormerly [facility] PREPARE LEUKO-REDUCED RBC 2020-01-31 23:54:00 Popat, [facility] TRANSFUSION SERVICE REPORT 2020-01-31 18:11:13 Provider, [facility] BASIC METABOLIC PANEL (7) 2020-01-31 04:30:00 Popat, [facility] HEMOGLOBIN AND HEMATOCRIT 2020-01-31 04:30:00 Popat, [facility] MAGNESIUM 2020-01-31 04:30:00 Popat [facility] PHOSPHORUS 2020-01-31 04:30:00 Popat, [facility] BLOOD GAS, ARTERIAL 2020-01-30 15:56:06 Fiona [facility] SODIUM NA-STAT LAB 2020-01-30 15:56:06 Fiona [facility] POTASSIUM-STAT LAB 2020-01-30 15:56:06 Fiona [facility] GLUCOSE-STAT LAB 2020-01-30 15:56:[address] [facility] HGB/HCT (H&H) - STAT LAB 2020-01-30 15:56:06 Fiona Elrod Giancarlo [facility] BASIC METABOLIC PANEL (7) 2020-01-30 15:48:56 Fiona [facility] MAGNESIUM 2020-01-30 15:48:56 Fiona [facility] PHOSPHORUS 2020-01-30 15:48:56 Fiona [facility] CBC W/PLT COUNT & AUTO 2020-01-30 [facility] 2020-01-30 14:31[facility] 2020-01-30 14:31:58 Fiona [facility] SODIUM NA-STAT LAB 2020-01-30 14:31:58 [facility] 2020-01-30 14:31:58 [facility] GLU[facility]SE[facility] 2020-01-30 14:31[facility]58 [facility] (H&H) - STAT LAB 2020-01-30 14:31:58 Kenyon Henriquezh [facility]car[facility] TRANSFUSE LEUKO-REDUCED 2020-01-30 14:08:[address] [facility] - RED BLOOD CELLS [facility] CALCIUM, IONIZED 2020-01-30 12:47:[address] [facility] BLOOD GAS, ARTERIAL 2020-01-30 12:47:05 Fiona [facility] SODIUM NA-STAT LAB 2020-01-30 12:47:05 Fiona [facility] POTASSIUM-STAT LAB 2020-01-30 12:47:05 Fiona [facility] GLUCOSE-STAT LAB 2020-01-30 12:47:[address] [facility] HGB/HCT (H&H) - STAT LAB 2020-01-30 12:47:[address] [facility] BLOOD GAS, ARTERIAL 2020-01-30 11:21:43 Fiona [facility] SODIUM NA-STAT LAB 2020-01-30 11:21:43 Fiona [facility] POTASSIUM-STAT LAB 2020-01-30 11:21:43 Fiona [facility] GLUCOSE-STAT LAB 2020-01-30 11:21:[address] [facility] HGB/HCT (H&H) - STAT LAB 2020-01-30 11:21:43 Kenyon Henriquezh [facility] CALCIUM, IONIZED 2020-01-30 11:21:[address] [facility] PH, ARTERIAL 2020-01-30 11:21:43 Fiona [facility] CALCIUM, IONIZED 2020-01-30 09:43:[address] [facility] BLOOD GAS, ARTERIAL 2020-01-30 09:43:30 Fiona [facility] SODIUM NA-STAT LAB 2020-01-30 09:43:30 Fiona [facility] POTASSIUM-STAT LAB 2020-01-30 09:43:30 Fiona [facility] GLUCOSE-STAT LAB 2020-01-30 09:43:[address] [facility] HGB/HCT (H&H) - STAT LAB 2020-01-30 09:43:30 Dick Henriquez [facility] TISSUE EXAM 2020-01-30 09:40:28 Fiona Elrod Giancarlo [facility] ID AN EPIDURAL CATH - NO 2020-01-30 08:35:46 Nelson Moore [facility] CYSTECTOMY,CREATION STUDOR 2020-01-30 08:00:00 Fiona Elrod Giancarlo [facility] LYMPHADENECTOMY,RETROPERIT 2020-01-30 08:00:00 Fiona [facility] TRANSABDOMINAL Medical Hali ter PLACEMENT,WOUND VAC 2020-01-30 08:00:00 Fiona [facility] ABORH, MANUAL 2020-01-30 07:15:00 Swapna Hassan [facility] TYPE AND SCREEN, AUTOMATED 2020-01-30 07:04:00 KyleatPercy [facility] CBC W/PLT COUNT & AUTO 2020-01-30 07:04:00 Percy Pettit [facility] TISSUE EXAM 2020-01-18 14:31:00 Fiona [facility] CYTOLOGY REQUEST 2020-01-18 14:09:[address] [facility] CYTOLOGY 2020-01-18 14:09:00 Fiona Elrod Giancarlo [facility] CYSTOSCOPY,TURBT 2020-01-18 13:00:[address] [facility] ECG 12-LEAD 2020-01-18 12:44:29 Unknown, Hl7 Doctor [facility] IR PORT-A-CATH PLACEMENT 2019-11-01 15:08:00 Bird Yen [facility] PROTHROMBIN TIME/INR 2019-11-01 09:45:00 Mercy Garcia [facility] APTT 2019-11-01 09:45:00 Mercy Garcia [facility] CBC W/PLT COUNT & AUTO 2019-11-01 09:45:00 Mercy Garcia [facility] CT CHEST WITH IV CONTRAST 2019-10-27 13:15:00 Fiona [facility] TISSUE EXAM 2019-10-14 09:26:00 Fiona Elrod Giancarlo [facility] CYSTOSCOPY,TURBT 2019-10-14 08:00:00 Fiona Elrod Giancarlo [facility] CT ABDOMEN/PELVIS WITH & 2019-10-12 15:47:00 Kenyon Henriquezh Giancarlo [facility] WITHOUT IV CONTRAST Medical Cent er XR CHEST 2 VIEWS 2019-10-12 15:12:[address] [facility] Plan of Care Planned Activity Planned Date Details Comments Source Future Appointment 2020-03-27 13:00[facility]00 [facility] I [facility] Encounters Start End Encounter Admission Attending Care Care Encounter Source Date/Time Date/Time Type Type Clinicians Facility Department ID 2020-02-28 2020-02-28 Office Luther Yen [facility] [id number] 11:09:47 12:43:20 Visit Edward Seymour [id number] [id number] [id number] 2020-01-17 2020-01-17 Office Nestor Fuentes [facility] 1.2.840. 114 [id number] 08:19:54 08:49:54 Visit C-Arm, Pmr Siemens AMBULATOR 350.1.13. 21 Y 0.2.7.2.686 [id number] 2020-01-10 2020-01-10 Office Luther Yen [facility] [id number] 09:17:20 10:09:32 Visit Edward Seymour 350.1.13.21 0.2.7.2.686 [id number] 2020-01-06 2020-01-06 Office Giancarlo Doherty Saul 1.2.840.114 [id number] 12:54:16 15:16:58 Visit AMBULATOR 350.1.13.21 Y 0.2.7.2.686 [id number] 2019-12-13 2019-12-13 Office GUILLERMINA Gusman 1.2.028.274 [id number] 13:53:26 14:53:26 Visit Shun AMBULATOR 350.1.13.21 Y 0.2.7.2.686 [id number] 2019-12-13 2019-12-13 Office GUILLERMINA Wise [id number] 10:03:47 13:58:12 Visit Manny Leos AMBULATOR 350.1.13.21 Y 0.2.7.2.686 [id number] 2019-12-06 2019-12-06 Office Luther Yen [facility] [id number] 09:04:35 09:37:30 Visit Edward Seymour 350.1.13.21 0.2.7.2.686 [id number] 2019-11-22 2019-11-22 Office Luther Yen [facility] 1.2.840.114 [id number] 08:40:10 09:00:10 Visit Edward Seymour 350.1.13.21 0.2.7.2.686 [id number] 2019-11-08 2019-11-08 Office Bird Yen [facility] [id number] 09:01:33 10:15:07 Visit E Seymour 350.1.13.21 0.2.7.2.686 [id number] 2019-10-25 2019-10-25 Office Bird Yen [facility] [id number] 12:05:50 13:31:23 Visit E Seymour 350.1.13.21 0.2.7.2.686 [id number] 2019-10-21 2019-10-21 [facility] [id number] 10:33:00 10:33:00 t Specialty/U Marquita kes - Specialty rology Memori a /Urology Clinic l Clinic Outpati ent Clinics 2019-10-04 2019-10-04 Office GUILLERMINA Henriquez [id number] 15:02:08 15:36:29 Visit Dick Grant AMBULATOR 350.1.13.21 Y 0.2.7.2.686 [id number] 2019-09-21 2019-09-21 [facility] [id number] 15:44:00 15:44:00 t Specialty/U Marquita kes - Specialty rology Memori a /Urology Clinic l Clinic Outpati ent Clinics 2019-09-13 2019-09-13 [facility] [id number] 13:15:00 13:15:00 t Specialty/U Marquita kes - Special[facility] ro[facility]y [facility] Clinic Outpati ent Clinics Results Test Description Test Time Test Comments Results Result Comments Source SARS-CoV2/RT-PCR (Asymptomatic ONLY) 2020-02-10 01:04:00 Test Item Value Reference Range Interpretation Comme nts SARS-COV2/RT-PCR (test code = 77957-8) Negative Not Detected, N egative, See external report for linked test SARS-COV-2 PERFORMING LAB (test code = CPL 41118-5) [facility][id number] 01:04:00 Test Item Value Reference Range Interpretation Comments SARS-COV-2 INTERPRETATION (test NEGATIVE . code = 74185-2) [facility] ([facility] & REF LABS)2020-02-10 01:04:00 Test Item Value Reference Range Interpretation Comments SARS-COV2/RT-PCR (test code Negative Not Detected, Negative, = 9630830) See external report for linked test SARS-COV-2 PERFORMING LAB CPL (test code = 4625810) Urine [id number] 12:03:00 Test Item Value Reference Range Interpretation Comments Result (test code = >100,000 col/mL skin 6463-4) [facility]y [facility] [id number] 12:03:00 Test Item Value Reference Range Interpretation Comments CULTURE (BEAKER) (test >100,000 col/mL skin code = 1095) wendy Hemoglobin and [id number] 14:07:00 Test Item Value Reference Range Interpretation Comments Hemoglobin (test code = 7.5 11.2- 15.7 GM/DL L 786-4) Hematocrit (test code = 23.8 % 34.1-44.9 L 4544-3) BALBIR (test code = BALBIR) Neuropsychology Medical Consultant ID - [id number] Lab Interpretation (test Abnormal code = 66935-9) [facility]MO[facility] AND [id number] 14:07:00 Test Item Value Reference Range Interpretation Comments HEMOGLOBIN (BEAKER) (test code = 7.5 GM/DL 11.2-15.7 L 410) HEMATOCRIT (BEAKER) (test code = 23.8 % 34.1-44.9 L 411) Neuropsychology Medical Consultant ID - 6000Basic Metabolic Panel - POD 07:06:00 Test Item Value Reference Range Interpretation Comments Sodium (test code = 139 meq/L 391-017 1690-2) Potassium (test code = 4.0 meq/L 3.5-5.1 2823-3) Chloride (test code = 107 meq/L 98-107 2075-0) CO2 (test code = 26 meq/L 22-29 2028-9) BUN (test code = 11 mg/dL 7-21 3094-0) Creatinine (test code 0.67 mg/dL 0.57-1.25 = 2160-0) Glucose (test code = 86 mg/dL 70-105 2345-7) Calcium (test code = 7.8 mg/dL 8.4-10.2 L 82040-9) EGFR (test code = 86 mL/min/1.73 [place] [address]-5) NOT ACCURATE CREATININE CLEARANCE IN PREDICTING GLOMERULAR FILTRATION RATE . ESTIMATED GFR I S NOT APPLICABLE FOR DIALYSIS PATIENTS. BALBIR (test code = BALBIR) Neuropsychology Medical Consultant ID - PIAYA L Lab Interpretation Abnormal (test code = 84218-0) [facility] [id number] 07:06:00 Test Item Value Reference Range Interpretation Comments SODIUM (BEAKER) 139 meq/L 136-145 (test code = 381) POTASSIUM (BEAKER) 4.0 meq/L 3.5-5.1 (test code = 379) CHLORIDE (BEAKER) 107 meq/L 98-107 (test code = 382) CO2 (BEAKER) (test 26 meq/L 22-29 code = 355) BLOOD UREA NITROGEN 11 mg/dL 7-21 (BEAKER) (test code = 354) CREATININE (BEAKER) 0.67 mg/dL 0.57-1.25 (test code = 358) GLUCOSE RANDOM 86 mg/dL 70-105 (BEAKER) (test code = 652) CALCIUM (BEAKER) 7.8 mg/dL 8.4-10.2 L (test code = 697) EGFR (BEAKER) (test 86 mL/min/1.73 ESTIMA BLANCA GFR IS code = 1092) sq m NOT ACCURATE CREATININE CLEARANCE IN PREDICTING GLOMERULAR FILTRATION RATE . ESTIMATED GFR I S NOT APPLICABLE FOR DIALYSIS PATIEN TS. Neuropsychology Medical Consultant ID - [place] [id number] 07:03:00 Test Item Value Reference Range Interpretation Comments Magnesium (test code = 1.9 mg/dL 1.6-2.6 47069-2) BALBIR (test code = BALBIR) Neuropsychology Medical Consultant ID - [place] L Lab Interpretation (test Normal code = 96706-9) [facility] 07:03:00 Test Item Value Reference Range Interpretation Comments Phosphorus (test code = 3.7 mg/dL 2.3-4.7 2777-1) BALBIR (test code = BALBIR) Neuropsychology Medical Consultant ID - [place] L Lab Interpretation (test Normal code = 82295-2) [facility] 07:03:00 Test Item Value Reference Range Interpretation Comments PHOSPHORUS (BEAKER) (test code = 3.7 mg/dL 2.3-4.7 604) Neuropsychology Medical Consultant ID - [place] [id number] 07:03:00 Test Item Value Reference Range Interpretation Comments MAGNESIUM (BEAKER) (test code = 1.9 mg/dL 1.6-2.6 627) Neuropsychology Medical Consultant ID Andrea ELAINE LHEMOGLOBIN AND [id number] 06:03:00 Test Item Value Reference Range Interpretation Comments HEMOGLOBIN (BEAKER) (test code = 7.3 GM/DL 11.2-15.7 L 410) HEMATOCRIT (BEAKER) (test code = 22.5 % 34.1-44.9 L 411) Neuropsychology Medical Consultant ID - 6000BASIC METABOLIC [id number] 08:13:00 Test Item Value Reference Range Interpretation Comments SODIUM (BEAKER) 137 meq/L 136-145 (test code = 381) POTASSIUM (BEAKER) 3.9 meq/L 3.5-5.1 (test code = 379) CHLORIDE (BEAKER) 105 meq/L 98-107 (test code = 382) CO2 (BEAKER) (test 26 meq/L 22-29 code = 355) BLOOD UREA NITROGEN 14 mg/dL 7-21 (BEAKER) (test code = 354) CREATININE (BEAKER) 0.72 mg/dL 0.57-1.25 (test code = 358) GLUCOSE RANDOM 101 mg/dL 70-105 (BEAKER) (test code = 652) CALCIUM (BEAKER) 7.9 mg/dL 8.4-10.2 L (test code = 697) EGFR (BEAKER) (test 79 mL/min/1.73 ESTIMA BLANCA GFR IS code = 1092) sq m NOT ACCURATE CREATININE CLEARANCE IN PREDICTING GLOMERULAR FILTRATION RATE . ESTIMATED GFR I S NOT APPLICABLE FOR DIALYSIS PATIEN TS. Neuropsychology Medical Consultant ID - JULI [id number] 08:10:00 Test Item Value Reference Range Interpretation Comments MAGNESIUM (BEAKER) (test code = 1.9 mg/dL 1.6-2.6 627) Neuropsychology Medical Consultant ID - JULI [id number] 08:10:00 Test Item Value Reference Range Interpretation Comments PHOSPHORUS (BEAKER) (test code = 4.2 mg/dL 2.3-4.7 604) Neuropsychology Medical Consultant ID - NTPOperator ID - JULI CHEMOGLOBIN AND [id number] 05:10:00 Test Item Value Reference Range Interpretation Comments HEMOGLOBIN (BEAKER) (test code = 8.1 GM/DL 11.2-15.7 L 410) HEMATOCRIT (BEAKER) (test code = 24.3 % 34.1-44.9 L 411) Neuropsychology Medical Consultant ID - [id number] 07:07:00 Test Item Value Reference Range Interpretation Comments PHOSPHORUS (BEAKER) (test code = 2.8 mg/dL 2.3-4.7 604) Neuropsychology Medical Consultant ID - [place] [id number] 07:07:00 Test Item Value Reference Range Interpretation Comments MAGNESIUM (BEAKER) (test code = 1.6 mg/dL 1.6-2.6 627) Neuropsychology Medical Consultant ID - [place] LBASIC METABOLIC [id number] 07:07:00 Test Item Value Reference Range Interpretation Comments SODIUM (BEAKER) 137 meq/L 136-145 (test code = 381) POTASSIUM (BEAKER) 3.9 meq/L 3.5-5.1 (test code = 379) CHLORIDE (BEAKER) 106 meq/L 98-107 (test code = 382) CO2 (BEAKER) (test 27 meq/L 22-29 code = 355) BLOOD UREA NITROGEN 13 mg/dL 7-21 (BEAKER) (test code = 354) CREATININE (BEAKER) 0.73 mg/dL 0.57-1.25 (test code = 358) GLUCOSE RANDOM 92 mg/dL 70-105 (BEAKER) (test code = 652) CALCIUM (BEAKER) 8.1 mg/dL 8.4-10.2 L (test code = 697) EGFR (BEAKER) (test 78 mL/min/1.73 ESTIMA BLANCA GFR IS code = 1092) sq m NOT ACCURATE CREATININE CLEARANCE IN PREDICTING GLOMERULAR FILTRATION RATE . ESTIMATED GFR I S NOT APPLICABLE FOR DIALYSIS PATIEN TS. Neuropsychology Medical Consultant ID - [place] LHEMOGLOBIN AND [id number] 06:28:00 Test Item Value Reference Range Interpretation Comments HEMOGLOBIN (BEAKER) (test code = 8.0 GM/DL 11.2-15.7 L 410) HEMATOCRIT (BEAKER) (test code = 24.6 % 34.1-44.9 L 411) Neuropsychology Medical Consultant ID - 6000Prepare Leuko-Red [id number] 23:54:00 Test Item Value Reference Range Interpretation Comments CROSSMATCH (test code = 2264) COMPATIBLE Unit ABO (test code = A Pos [id number]) UNIT NUMBER (test code = [id number] 934-0) Status (test code = 8863207) TX_TIMEINCHART Blood Bank Product (test code RED BLOOD CELLS = 2263) PRODUCT CODE (test code = Q9157H05 933-2) [facility], 1 VIEW, NON [id number] 18:35:00 Reason for exam:->check PICC placementShould this be performed at the bedside?->YesFINAL REPORT History: PICC line placement. FINDINGS: Compared with October 12, 2019, the heart and mediastinum are stable. Lung volumes have decreased. There is slight increased opacity in the lower lobes, likely atelectasis. Left upper extremity PICC line has been placed and appears to lie in expected position, its tip over the superior vena cava. A right internal jugular chest port is also present and appears in a similar position. No pneumothorax. Bones are unremarkable. IMPRESSION: 1. Left upper extremity PICC line appears in expected position. A right chest port is also not ed. No pneumothorax. 2. Decreased lung volumes and slight increased opacity in the lower lobes, likely atelectasis. Signed: Manny Arcos Verified Date/Time: 02/03/2020 18:35:36 Reading Location: [facility] Reading Room XR chest 1 view portable / [id number] 18:35:00Interface, External Ris In - 02/03/2020 6:37 PM CDTFINAL REPORT History: PICC line placement. FINDINGS: Compared with October 12, 2019, the heart and mediastinum are stable. Lung volumes have decreased. There is slight increased opacity in the lower lobes, likely atelectasis. Left upper extremity PICC line has been placed and appears to lie in expected position, its tip over thesuperior vena cava. A right internal jugular chest port is also present and appears in a similar posi tion. No pneumothorax. Bones are unremarkable. IMPRESSION: 1. Left upper extremity PICC line appearsin expected position. A right chest port is also noted. No pneumothorax. 2. Decreased lung volumes and slight increased opacity in the lower lobes, likely atelectasis. Signed: Manny Arcos Verified Date/Time: 02/03/2020 18:35:36 Reading Location: [facility] 07[facility]00 Test Item Value Reference Range Interpretation Comments PHOSPHORUS (BEAKER) (test code = 2.4 mg/dL 2.3-4.7 604) Neuropsychology Medical Consultant ID - DA [id number] 07:55:00 Test Item Value Reference Range Interpretation Comments MAGNESIUM (BEAKER) (test code = 1.7 mg/dL 1.6-2.6 627) Neuropsychology Medical Consultant ID Andrea ROBERSON FBASIC METABOLIC [id number] 07:55:00 Test Item Value Reference Range Interpretation Comments SODIUM (BEAKER) 138 meq/L 136-145 (test code = 381) POTASSIUM (BEAKER) 3.5 meq/L 3.5-5.1 (test code = 379) CHLORIDE (BEAKER) 107 meq/L 98-107 (test code = 382) CO2 (BEAKER) (test 25 meq/L 22-29 code = 355) BLOOD UREA NITROGEN 12 mg/dL 7-21 (BEAKER) (test code = 354) CREATININE (BEAKER) 0.76 mg/dL 0.57-1.25 (test code = 358) GLUCOSE RANDOM 93 mg/dL 70-105 (BEAKER) (test code = 652) CALCIUM (BEAKER) 8.1 mg/dL 8.4-10.2 L (test code = 697) EGFR (BEAKER) (test 74 mL/min/1.73 ESTIMA BLANCA GFR IS code = 1092) sq m NOT ACCURATE CREATININE CLEARANCE IN PREDICTING GLOMERULAR FILTRATION RATE . ESTIMATED GFR I S NOT APPLICABLE FOR DIALYSIS PATIEN TS. Neuropsychology Medical Consultant ID Andrea ROBERSON FHEMOGLOBIN AND [id number] 06:56:00 Test Item Value Reference Range Interpretation Comments HEMOGLOBIN (BEAKER) (test code = 8.2 GM/DL 11.2-15.7 L 410) HEMATOCRIT (BEAKER) (test code = 24.2 % 34.1-44.9 L 411) Neuropsychology Medical Consultant ID - DestinHEMOGLOBIN AND [id number] 19:28:00 Test Item Value Reference Range Interpretation Comments HEMOGLOBIN (BEAKER) (test code = 8.3 GM/DL 11.2-15.7 L 410) HEMATOCRIT (BEAKER) (test code = 25.0 % 34.1-44.9 L 411) Neuropsychology Medical Consultant ID - [id number] (Hemogram only)2020-02-02 05:09:00 Test Item Value Reference Range Interpretation Comments WBC (test code = 6690-2) 13.5 3.5- 10.5 K/L H RBC (test code = 789-8) 2.00 3.93- 5.22 M/L L MCHC (test code = 786-4) 33.0 32.2- 35.5 GM/DL L Hematocrit (test code = 4544-3) 18.5 % 34.1-44.9 L MCV (test code = 787-2) 92.5 fL 79.4-94.8 MCH (test code = 785-6) 30.5 pg 25.6-32.2 RDW (test code = 788-0) 17.4 % 11.7-14.4 H Platelets (test code = 777-3) 106 150- 450 K/CU MM L MPV (test code = 33348-9) 10.4 fL 9.4-12.3 nRBC (test code = 413) 0 0- 0 /100 WBC Lab Interpretation (test code = Abnormal 24581-7) [facility] Diego[facility]2020-02-02 05:09:00 Test Item Value Reference Range Interpretation Comments WHITE BLOOD CELL COUNT (BEAKER) 13.5 K/ L 3.5-10.5 H (test code = 775) RED BLOOD CELL COUNT (BEAKER) 2.00 M/ L 3.93-5.22 L (test code = 761) HEMOGLOBIN (BEAKER) (test code = 6.1 GM/DL 11.2-15.7 L 410) HEMATOCRIT (BEAKER) (test code = 18.5 % 34.1-44.9 L 411) MEAN CORPUSCULAR VOLUME (BEAKER) 92.5 fL 79.4-94.8 (test code = 753) MEAN CORPUSCULAR HEMOGLOBIN 30.5 pg 25.6-32.2 (BEAKER) (test code = 751) MEAN CORPUSCULAR HEMOGLOBIN CONC 33.0 GM/DL 32.2-35.5 (BEAKER) (test code = 752) RED CELL DISTRIBUTION WIDTH 17.4 % 11.7-14.4 H (BEAKER) (test code = 412) PLATELET COUNT (BEAKER) (test 106 K/CU MM 150-450 L code = 756) MEAN PLATELET VOLUME (BEAKER) 10.4 fL 9.4-12.3 (test code = 754) NUCLEATED RED BLOOD CELLS 0 /100 WBC 0-0 (BEAKER) (test code = 413) [id number] 04:19:00 Test Item Value Reference Range Interpretation Comments PHOSPHORUS (BEAKER) (test code = 1.9 mg/dL 2.3-4.7 L 604) Neuropsychology Medical Consultant ID - [place] [id number] 04:19:00 Test Item Value Reference Range Interpretation Comments MAGNESIUM (BEAKER) (test code = 1.9 mg/dL 1.6-2.6 627) Neuropsychology Medical Consultant ID - [place] LBASIC METABOLIC [id number] 04:19:00 Test Item Value Reference Range Interpretation Comments SODIUM (BEAKER) 140 meq/L 136-145 (test code = 381) POTASSIUM (BEAKER) 3.9 meq/L 3.5-5.1 (test code = 379) CHLORIDE (BEAKER) 110 meq/L 98-107 H (test code = 382) CO2 (BEAKER) (test 27 meq/L 22-29 code = 355) BLOOD UREA NITROGEN 15 mg/dL 7-21 (BEAKER) (test code = 354) CREATININE (BEAKER) 0.85 mg/dL 0.57-1.25 (test code = 358) GLUCOSE RANDOM 88 mg/dL 70-105 (BEAKER) (test code = 652) CALCIUM (BEAKER) 8.0 mg/dL 8.4-10.2 L (test code = 697) EGFR (BEAKER) (test 65 mL/min/1.73 ESTIMA BLANCA GFR IS code = 1092) sq m NOT ACCURATE CREATININE CLEARANCE IN PREDICTING GLOMERULAR FILTRATION RATE . ESTIMATED GFR I S NOT APPLICABLE FOR DIALYSIS PATIEN TS. Neuropsychology Medical Consultant ID - [place] LHEMOGLOBIN AND [id number] 04:00:00 Test Item Value Reference Range Interpretation Comments HEMOGLOBIN (BEAKER) 5.9 GM/DL 11.2-15.7 LL [address] alfonzo candelaria per (test code = 410) [id number] HEMATOCRIT (BEAKER) 18.0 % 34.1-44.9 L (test code = 411) Neuropsychology Medical Consultant ID - DestinTissue [id number] 13:30:00 Test Item Value Reference Range Interpretation Comments Case Report (test code Surgical Pathology = 104) Report Case: [id number] Authorizing Provider: Dick Henriquez MD Collected: 01/30/2020 09:40 AM Ordering Location: [facility] PERIOPERATIVE Received: 01/30/2020 10:59 AM SERVICES Pathologist: Reinaldo Matta MD Specimens: A) - Lymph Node, RIGHT COMMON ILIAC LYMPH NODES B) - [...] PRE-SACRAL LYMPH NODES L) - Appendix DIAGNOSIS (test code = z4fxwYNpXPGsh9suHOXvbBI 3220) uZzEwMzNcZnRuYmpcdWMxIH svxbOwKUwbd2GiU0TbTrImJ FxhbnNpXGRlZmxhbmcxMDMz ISU0gcFxOXShBKkwGSWbSPo bIc0ypOJqiPnaTuMaPHRuy9 eubwAHpvhlcTz6m8xfBXIyI mJ3nROhZPilT7drssQkxCBn ETNtXHv3xU10BORpuH1xoXR vOAazobTpFxR9MTnwTVXtBw Z5FNMfbJXfBLRqQ8czLFVeH UioBUCmNZiviYLqHSI0fDxj v5K7zRImmQNuqAsrMePkIhM oFCTEx3IqDYp0uCkzR1IdTF YaKoU3xVOmKYCfYAgjERXwG UIzqnI7fL32FXqjolH7oEOg l8Jbn90hb422oA3wkSQuSOA 4IXUpLCIksEOfJQLfPCG4BW JoiLYtT3s7LyNueSKqF2X1T jLbdEVtG9X1OcQjiRRoN0E1 GrTmuIKeGBItnGWhPd8xgDR cyCQxhg7nei70TKM6j2FyoM svMLG3KYK4PyFwUk8cxEFcK GUgLX0mXgUdcJJxQSMbdh09 eDznOUzlicQpwQ3pIcKwOZV clPTnPCHuUJ9uhQSbPBJbgP 5ucmxjXHBnYnJkcmhlYWRcc ArxraGmEz9jeJjaXIE6AIzj Z1pxbJ2qQbZ7FDnjN3sphD8 fNKx5MGrzxDI2PUVkuZ0aJL 4yvrvvf7uvYgVhUQ3dzfpdp 5tzXxKbEJ0crhm2f5iiAeDg EN5wbjvsa9kpTlByPBhtUWM xvlayGEQdl9AxdwagXRUxh6 RpY4XccNaqH53xmJaqZ02qW TCsiMfgfK7lsCpenO9oRbFf ZnMyNFxxbFxwbGFpblxmMVx mczIwXGxhbmcxMDMzXGhpY2 prNpKjJDImzJpeLKjip4GnH GCpYMGbHaTkDC7xMNkPFOpg Uj6FDHTzVNAHM7vYTABWSS4 EHkWFDKoYMlgeNTfZW0KKHN lPTjpccGFyICAgLSBUSFJFR TPPDZ9KM78lFNzKDXmhOh1D RVMgKDAvMylccGFyXHBhciB NJgBSME4DHFLUL3UOCejvUm lHSFQgRVhURVJOQUwgSUxJQ HSfXUZRL8FLI6OYK614SFQt fqXvDC9vUooQMWZCTW0DC23 wSJuVDEsiZn6VGDZmTRZaFG biqZImGRVywvBRAjKFZB7NA UWVQ6WPOuouAcqZXPEvW0AM LEKDUP4QPFONIIMPWLCQLR7 OOlxwYXIgICAtIFNFVkVOIE VNLlzVMbTVMB3MJIZAE4QFE gAhJH79FJfoMMCwvCUrXXJu BKrLWHVCJP9CVRLEVINMQRq XKLHOCnMAGd0DYMKVYAvLMd wkHYlVG2QTOUaSTfqhcGUrM QXnCWEIK55qGwHWIFaDBWtZ PIYOTG6IEQRUVJaeNbKiGCQ pqcfwHWGfFH8rZEbXVMwrMp 1BOATuQAvNZpNoT11ARV7KO MhUEIJOAKOOZFYEKQNVJK7G RwUrdQQlIWBlOBREQ1UWVIQ IPysCElJKMZ0QFTHHP3EROb WaUF35QRjpRBZprJYfMHOyG EuNTJQTCC1GHSOJFQQVYAXI IEVYVEVSTkFMIElMSUFDLCB JRUIANYBNXM1FIfbaXUTaJG AtIEZJVkUgQkVOSUdOIExZT STXXJ3OLHVENCzmFvBqXPKv eaizMVAfAr3aMIxSMXlrGt3 QFBVgDScQKfToG3OEDLPKCH 5LWBFIWLYLCKULDD1MVdekQ XIgICAtIEZJVkUgQkVOSUdO ZMnQIXGFAB7HKWQBDYkzSsD qESHmlyjtBPLvDO4oGCULCK PLGATUVZFIBHHEL0JFLZiiU VyNILPZC511XGVpisQdXN4d Pz0gBEDLTI6FF9wBZbKOBPI WOp2HRHCqoDBcYODghuDRLz EJKeSNLPRtQSLDP6nJOQPZE 7KZAXjeLYmLYNMET409WAFc ybInJA8yNx3eKFVEII8UV8h BXtVCIKWUFn7OXYJgjCGdGB BhciBKLiBVUklOQVJZIEJMQ GGEDWTaNEMGYCSROE1COLBO PXORUsOSRYNRMUOMBKTLM77 4UFFkenDvHZ0wMTWWFHoUOE bFSETUTSEZZN4OJMQqWGxCK 0nwB2GNVNTdEYoGUpAMDaLA RSAzKSBXSVRIIFBMQVNNQUN GYQ7QTR3KCTfPCQExPtpYSk AgICAgICAgICAgICAgICAgR AqOEtEEOD7PORXXYT6JCYBV PzYAO9oLPUNMNyMTDAPYBRV HRNQEVcWMFWWYDJDRX4VHDI ZQR7KYOCEfLXWlbbMcBK9nG FRJJCvBCTlBUVIGHDZOAJ8E INKyDM4aA1oCNUwyJs5WUAj ckKPdWPSsRSUIXyYCFD8XTh FJDXTFZ0GCD20qO2yIHHFLX ZFVZ5HRBDAWPNKDLpZhUZRe hjCgOT9eT57WWSELXcaILkJ LWJFWAyODYPDTNJVKHM1PWU NBJ7DCWYjbOvChHZQnwlRjD S5vUgFLXLLJCvIeRs6UFZjY HFOPN9UCA7WXFEPZKNrJFoA IQK5WGCJzunXgJD1mWrZEGG YNMnEfH4MPY6hBKQmcWDOKW 1bKP4kzPREfdIWbVNNUAVZA JkdqM7FQLenPFASXHeGAXyl PUiBWQUdJTkEsIEJJTEFURV JBTCBPVkFSSUVTIEFORCBGQ MmRB9RFGS8wXCQNLZPfRFTQ FBAJRE2ICVNFLVJGCeVCVLH SIVBJSKIGM963QPBbskWjYW 6eGL2JGsHFXQEVGNSBBWHDG c2HZOWVBNBMDNRRYcRRYj7O AMceEOGsMPAoUSCNNr6LVKi UQOKVKY7DCXKIOPKLNGsUVN voFP2HQ83SYVPNIDcaUA7JB VAsIDAuNiBDTVxwYXIgICAt ORaLHMkLXqxvNQHgGUQDZ67 OO55ACANhYbQwZ58gCLYueh WhGK4lJ1GANjqAZXWEUJSGN kVPNonBQgGIIEpOVH1VRODG Z9kCGELMZUBPGV2RCJIIBNp IAC2EZOCjMWmHW52US4gIRK SqgomzUDLvKj2eH66PIJQCO VNTVUUsIExBQkVMRUQgIkxZ YEEJUD3SRZZUEDTWWhOfP9D WMeRRPvtlQSjHTACFV984BF YebrZbEF3wAbWHAVoBXKNCH rRJJYHQKZ7CTNHPWJHENQIj JX7DRGwREAJYGE8UEAAIFSx OAA5HHKLBLNWprTXjMVYnis BMLiBBUFBFTkRJWCwgQVBQR E6NPRNCL68WWuwaVWHeIGDj JBTGKwNZNVSsD3FXISMGHiI SYJ0YXO8JDDDHNJNAKLVtfG CauSasrsIgWMolk2MpPAqfI WPcPW0moFpaRQQhSN9yUYRh R0jieS3icfc0MwYdBYPhOrV 3SWSjjxV8Nfh9WTTcFCnjs6 vsk8OrKNLzBUw4kKyrNqXvM TWck8fwpbAkVzAqYMHuHWYe ZMDhzMMvD744w5qhq1innkC nqJN0JKSpHDC4GElgwlNwae A5UYcjfBUvFiE8ALvoceQbL MyzwfRhyfLiIva3XBJlO286 QAN4rZsfy1ycKNB5FVLrXKV oPbGoDi0dpDGvD934VQKhXI TLWHOqbDh0GTWblsYwdxHqk DRHc972O880h5xyDSAtlyRb xQvRorpjg8uhC544LUSqjQV oveCtDdBpWTBotYXdaNV6OI YpQM6vhbopGPzcVVmrVANoc cP7AMCecOXfK0JlODJsYU7u rggePNX4YGqzSEVeYKR2UvN yPNUfo6Vcrne2VnLiqf6hdd 63JBZ5x2PojMzkWGS6EHA0Z vPlNw5wfSClSLLtZH0lBySe fOMcOFWspi20oVarMNifKMS 2KJHacfQln8Fhm0ayBwWwcw MzF4hqZ7BlLUDbGKCbBQRxF dTzsfIfy9Xxp2MhnMJngVf4 a6szDWFpZVEtiVxgr0lzRAD 4CENcwETqR6qysK1mAVUuEE 6lffrpl9vzUVsaIGemLJLgv AE8prC8MIElrAKeL6TpqH5k UTAdPBfsMKXpwbf9VzOwJv8 vdGVyeTcyMFxzYmtwYWdlXH BnbmNvbnRccGduZGVjXHBsY WluXHBsYWluXGYwXGZzMjRc cWxcbGFuZzEwMzNcaGljaFx xUGifAoZjPYByDIyyJ0vnZz GpSqIlFkw3TOVsqDJgLGWlD hp5RVWdsDOpUZMPaRjmfS7f RULggLaprU7hcNY5QLEmmiN azCHZuK7hNWDNnD8kMaZ6Ev LaHkM0FVM5ACGcfECxwV3= COMMENT (test code = t5nyhJXmGGVejEGzWyReIAK 3359) uTAYna0jlQXHfjJOtBnTrRg NcZnRuYmpcdWMxXGRlZmYwe 5lsg203dZKre6wbMCSaCjA0 pUBlUEGzqOWmJ723c7uxn7i ewbStnEB2YFVsGRW0EXhuur QmekP7WBktyEKzKqO3RIshd cKuYEesbjIvqfOfDzm9SPYg I834TAU6tEbsg1cgQCY8XLL sJHUcBgOyKm3biMLpD823GE SxYGQSVVTxjBb4CMEpriHvx hWkuCAKb606V468z7nlYJJq soAqkCeGdibcs0opU124ZFH hcGVydzEyMjQwXHBhcGVyaD Y0URNsDB3htqjlQlBxDT9qs pksEfFaEO2nhff6DaTxTQ0p cmdiNzIwXGhlYWRlcnkwXGZ cg1InoyodDD1iM0Zkf6G9xB 9maXRcZGVmdGFiNzIwXGZvc g9woEQkCAeyz1ViITC4nyI4 hZOtwQGtCCKgZQ93Hukwj1I zCnanCHK1TEMxpaYom7Vgx6 seTyUkjrQbL0csQ0KxJZCvC ZIsEAVmJiXncwKaf4Ypg9Ms wPRdcVb0m4nwIFOjDMFztFw bd0emFEM8ZNVjA5Y4dNMvn6 esCDqcPQJbtCV1zddqSYshT ZEpocU5hwzuZVwlALFfkSK5 oycvWRlwGSGpNxW0kvleIPj oDGXaNYD0GNqwv036KSJ7JN xzYmtwYWdlXHBnbmNvbnRcc GduZGVjXHBsYWluXHBsYWlu XGYwXGZzMjRccWxccGxhaW5 aZeJhXeNqDOxqTQ9mJNZnB3 gpcNYyYMEdQNJwR4vhIdFjc J4hoZffPUuvrwQqCDZmzHDo LfN1nHUzcxDsbXL7BDybnA6 8NBOccsYgcEOpi4TtqWNzy2 StkHrjANGsEJ5zA1k5r8jdF 4WwG17dwNWqtP5qVZZwbTpl uJmeFZ9pTSsyNGP7 SYNOPTIC REPORT (test URINARY BLADDER: code = 71) Cystectomy, Anterior Exenteration (Bladder - J) 8th Edition - Protocol posted: 09/15/2018 SPECIMEN Procedure: Anterior exenteration TUMOR Tumor Site: [place] Histologic Type: Urothelial carcinoma, 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 Histologic Grade: High-grade Tumor Size: Cannot be determined: MULTIFOCAL, LARGEST FOCIUS 1.5 CM Tumor Extension: Tumor invades perivesical soft tissue : Microscopically Lymphovascular Invasion: Not identified Tumor Configuration: Ulcerated MARGINS Margins: Uninvolved by invasive carcinoma and carcinoma in situ / noninvasive urothelial carcinoma LYMPH NODES Number of Lymph Nodes Involved: 0 Number of Lymph Nodes Examined: 32 PATHOLOGIC STAGE CLASSIFICATION (pTNM, AJCC 8th Edition) Primary Tumor (pT): pT3a Regional Lymph Nodes (pN): pN0 CPT Code(s) (test code o0ndvPHaNQDsmGFnAdItCRW = 3357) tZQDlu2xqMIUpyYVeXlNdXj NcZnRuYmpcdWMxXGRlZmYwe 4fuu633bSKvq0vhIYZrSrQ1 ePTeRGAcvENiG413IXUfRYx ho7tpe9KnHBFltMMlt4L7YD GMtwwnoJi0nYbcC44xd5M7P vurG4exYKCuJZUwB4QxRJ1q IQRtTqf3XBH4NMZ5LZBfUDX qX5WaUK8rTFQenLMoALc9k8 gvuQhdTCXbDCH4j1fuXAgsm bXbBW9mrw9fxAg3e1mgclHg SKBlXYIaxHNDMTTwM3NixDr xPv6yiQo2sXgyRknrXZO7Hz r4MZ6ffp98bny2lQydTXTpf oxzFvV5LLurWWAwbbmdLQd9 MFxtYXJnbDcyMFxtYXJncjc yMFxtYXJndDcyMFxtYXJnYj anPOpaWOLyPTX9WNbpn051Q XD9YTdvb9uvs5hlcQZtTfj1 ETEeWhBuSsnfKFrua8Ato4d rAYTbpj8yCYX7hQQwsFmkf7 C0sASuFEOdiMUhoxOkETLaT bR8LQugVP5jhy96AENuCFG6 we9onDVomObfwlFvgQMuNPg tD2QdILAqq147NWPoV2UxJM Lta4M9esSxZuZyBKQkpSW3r dM6QZUfGSo6lXKjshM1tvIb fHChQ2fsrO70VfHyiLSyU4E bnP48AdPwgDAiR4GraE67Za VspXGbS2WouN45UnTjhRZoT GQyuIPvDg6ibMUslIJdp5Kt gCSyXYjxU46ym534YXSzsoI qQ5chwWUgtuubcIFmsgkbDK arqzZ2IDWbPYPlHJpvSPCpP GZzMjBcbGFuZzEwMzNcaGlj hCgwCOvsKwSiCQQkKGbaG7y dWoBdHkSpYOK9LMXwOCK0WE IwsDSkBOv1XmB6ANRtciQ4T HYaAcKNAEvlcUCoSBi0MkI3 CJpoR0pzTCRaKOqhNYVfbUN yfQ== CLINICAL HISTORY (test c1meyDVuTCKwlQRwYqTjNSD code = 3356) uWOLlp8kyFHPkxGYoCeIsCs NcZnRuYmpcdWMxXGRlZmYwe 7lft724pVUwh7gdPWSvOjQ5 jYXuESHgtPOqJ022RJVuYYd qo5tnl0DdANHogYGqv9R0EV LQjqizoOj3mTjiX23gb5E1P hoqY8pnLSNfZDAcM9GvPI4l RXAxDko7MFV9WKN1VUGnIAM hO8ZqAT3cXKGkgHIdCSw2p6 bfmAbbDEDvBYY6t2wyTVkcn nWyQD6twq5hvQv8v6zrgpIz VGNpCBOerSKSATDtB5MabZy yGo9zxLt8lPvnSzkiAJU1Mn y7KL1yzt11vkz3gMymWCTru urcNaX2MPulWVFawgqfEJw7 MFxtYXJnbDcyMFxtYXJncjc yMFxtYXJndDcyMFxtYXJnYj viWFnkKOOuTBE7YAobv614S KB9JQbwe4tmw9rfqKBeTxr0 NRWfNrFcWrhaPBglk9Eax4k kEEOfrw4lEOL3tMBunPtvj9 T8eSMlZSPkbHQobjRpTKLaQ xF4YPonCU7uzb31HTVxQCG3 jn1rjEMhhRuybeMfkDCwYTd xO5RkKWRdp143UZJzW6ShEY Dov6F2loXoSrXiEKKuiRA8e cK1YLFbGGl6pDTqbfZ3puFw qWJbA0jqsH32PtBixMQpM1K kuC50WmQlzVIsC7MwrR03Rl UttYDfM2YrmA02QtEepSOlL WJidCJmJp1eaHIltJUha9Iq nDCvNYopS14ml643EGYderQ dZ0xipRYxzrwyqJBhixbyMO gpevT1QAJgUFHlZTwlATApW GZzMjBcbGFuZzEwMzNcaGlj bCdsHIlmWqDjVPXjDZhvT1f cZjFcZnMyMCBQcmVvcCBkaW Thry9cwNK9ZQDMWZgdM90ma eMqsxGcqCule62xb3RygEoh YPJmnD3tfpoxQowlAVZori0 oFMDlT5EviVBcWlPnKaOuiK JghUWetCH0VPE3b301WPfeh PcmG1OmQQRzw93nr0CbT00d aFlyCN42AHDenzOhe4dpwjl gYmlsYXRlcmFsIHBlbHZpYy UjaI9hqMGnz7QpMOLuf9NwZ 1Rxv20rPJvtQFE3 SPECIMEN SOURCE (test e9axsQBkUNHjqGRtNpRyCOE code = 3377) gIXMmd9wwZHFusHKzMhYySq NcZnRuYmpcdWMxXGRlZmYwe 1dnt999jXCgc1csFEPlJqO2 oQDvJMDxaGKhV217YXVhBDd fm3vhc7AoHDLdeFAos6V8YY BUinwziRi0lJygB43ku5O5K kavG2cxGKEuKOKnG2ZnQO3m WLFbGpg3LWN2SNJ5ILEnWIQ cV1QbQQ5vTBYabGInRAz7z2 jqaUdzISKaCDK8c4hbOPoim nWqKR0ezo1zrWh4r4cocxSq RGJxOUNfyTZPWWWiW2HduLb yAt4ytJk8fMarDhcnGNW8Lu j2WP7ytp12yww4dQbdGZJvx zetRjN0GFqqYIDfzymjCFx0 MFxtYXJnbDcyMFxtYXJncjc yMFxtYXJndDcyMFxtYXJnYj umYUtdJTDxIZG6LShoe864P BL6EWnfm0fmz8luxZFmRmv8 LKOtMfTqTisyFItft1Edn8h cTCKzqm2hKKS2nBDzxTnwl7 E2kBQsFWKicJWagoGbRVUdE pM4AAodQL0kyc70TFRfFYH0 fg2deUZfzNxssiLeoNOzZIn iF9IqCONdi815WQVfW2BtMN Irf6Q4efAyVdZhKQVfwXO2f nG4SLGcLJr3tSEavjM6cjVa xSEfN0gtmV73QcErvQRaQ2P ahS27JtOsiDSvJ4EmmF64Dn RahOQgT3ElsU76VbXrzUKuD LBjsOBhUa4ezFUprXIxg9Td wIRdXHbbV15ub536CHVztwS hE5kucUPghppzrRVqiqhaBR muryV9VNVbRBIlCRpnXNVtP GZzMjBcbGFuZzEwMzNcaGlj jClqFCwvVfYmXVYpDZsiF2o cZjFcZnMyMCBBLiBSaWdodC Jfv27cx36bnYnsWQTvwDeqk Gcsrd9iOAW6ERClYFAwF5n3 UNG4vLFzsdMwHPevuVYmMDk 2vEFfJR0iYONdGaXaVz7lCd ziuGRsf2V4eWGqjT7oEIx9a MEeQD8bOCQ0XQXkWWWhW8h0 IGludGVybmFsIGlsaWFjIGx 5pLUnTP7rHZM0AHIpJDbsDw TjO19jrD5iVWmwkTVpBGc9k AXwUQ3kHXMdJ7OoUBwqImDs FRr1OJXmAMxvuSaaWSPitQq itWefel9cLPC9PIkdBClnZy QgZGlzdGFsIHVyZXRlcjsgS M4hFwxrlZGwWYuyyRUjGPPy EWVpfhucEy2jDPViyyZodFV ibGFkZGVyOyAgSywgcHJlc2 VjzwGhLHx7zDZxUI7cQSB6A NyzCBOfxTUkVAn9FOMqxc2= GROSS DESCRIPTION h5leuNJuGLTrjKEsDcTsKMD (test code = 3366) bJWCqa8hrTTBvzUGdRkDpTm NcZnRuYmpcdWMxXGRlZmYwe 6jlj902sXNks0kqBNNrDoQ5 pOCxDQNbfOMcK459KNWkMXp yu9eqd5YjPKHxxZBby7Q2GI LDpzcleEb9xWujJ53dx8Y4P jakK2vaVTMiKHGtB2HiAO0p NRZyUhs7FFY7RMY3IISgWKB zA8ThZO0sZILvmDKnFAd9t1 qtuCfjPKDgHJI2h4cfIMbtk mAyZL3agp1wcZe0d3cwrhPr XOYcCFQflJDETBTlK8NznBr iNz4ohZt4jZxmLkwpEAT2Xf r5SZ0ltk50yak4aEpaUXSpi kszQoX3FFmbLTKhneuqDFk7 MFxtYXJnbDcyMFxtYXJncjc yMFxtYXJndDcyMFxtYXJnYj zhQInoNOIrZLK8XHktq223G JQ9RQznk7noz5azmKGjMtw9 QVYzEqJjGnukENepr6Kny3d bJLQlic5eCAA3fAShgTtei4 G1pTGlBCMoeKUfzvEiAWRgL oS3GMihXK2orj28ZZBsSAY9 qw2awZOfzGgdzbZqsGWtZBr sK1IoMHMbb673QTQnK5YmZZ Vnu8E4idFaGsXhCXQipGW2s qM0ENLpVWc1gIAdfsL2bnUr cYVsH6qawP54TbKwgBYkZ7L cfR04InPyhGRvL2YtaK75Qd FstWDtT7FtpZ84AyFcoCWcB QDetNYnBj8omSWnnYNno4Yz iUQmRKnwH76uq778VMQtuiL cM8kgkKZcymzgyIGeajeeWC adgwY3JLDjIYAeXDnxENTvP GZzMjBcbGFuZzEwMzNcaGlj xJccBDdlPiZuJOOnZUtdR6y cZjFcZnMyMCBBLiBSZWNlaX PzDWWusvLix9IaPGzitqBkC WJlbGVkIHdpdGggdGhlIHBh kRkwvlFyrjPuUR6tQURaA1V zh7Tan00tviBvLvPnDIJeCU DglkcgnLDiQ55blK1hUQudz TFuBWk6zTBgCW2iCFUqApGd zbOhMXqqgDkmap0qWMNjEfa pca1eYPG0rLLge3C0RFJpb6 V5UCVeidLqyVEplIY9pLD0R L8eCTU2jxIhOUBuDIL5QMUv NoD1LREsNZTjjB0uSProYHO eCMEkoRTsIMwiCCPpa2XgR8 RhQWX6vxOwYXXbHAltrOxmJ Rl5iBUrUZ1qYSZbUW7uISW4 qdxwHvD0eTV4wtUsAoLawAS wXdXxvXReSsGkN49lETjxBA SylCPdUJBuQ2Wsk49tD91lK DzoYYSaKTE4oaCozF0caTDm v3Vcca6eoVSzOQDbdoZAVmQ YMGVkzGFfHYEivnLkh3YsGK xpbiBsYWJlbGVkIHdpdGggd QtfYMYhmAfvvhJzyzIoHX6v PSTcP4Whf6Zhu23sohYcTqA fBHGuAJRtbgfdtGReFPs7WS JuYWwgaWxpYWMgbHltcGggb p6gOXDrYIxlVDCfalGgGYjd tHcbbmEwjZCai4GypKZ4NYV wKeRrvXmzj9DhFGSdDPkjZQ 97CEQuHCNpnYMno0UyGYLzY c9cXRlaOp92QBnbMh0tSHOd JdPmImr2SUNjeB9dyRFzl8R lcyBhcmUgaWRlbnRpZmllZC QwHQ8zvB8eRFehPIQrxxEuJ nJvbSAwLjUgeCAwLjUgeCAw GuFxdKFjrM1boPnpPMgqdbw uy1DdjPWje8LldE6qPHMiMp B7KOGjVCI8RHTzQdYkmJ2rF HXxfkwfKYMfW3VfbYplspDu g1YoXcEOSSplGt64spGufQ6 pmEPij6NfevijJnNtRU8oER ZegW0dnBUhp5OhQFXmy1Dfw GVkLiBccGFyXHBhciBDLiBS UNEvrLAkHAJmemErl3ZbFCj pbiBsYWJlbGVkIHdpdGggdG zaSYGfsDykvuSbgnDoHQ9lO FWzM5Zil0Nix45umdPsRrYt JSPbHXMvpjlgmQYto8Q5dCO okC3uHRf9tLEaCM7eZUObOZ VeUDZeaTf9qLPaSKHidsCxb BJnpKNor8KsgTUvyS30ZHQe eAWlq8TypHiuq2QwHJDxKED ymVPgw5WlYGBslB3cQQgapp ZbZBWoHAnlRGN4EUefKNC3Z QLcFLZklL9hXGTzbRDdoJNv mTVqnGuwVOvbRIdsHG32yTD hZNWxg7x5sEizMFQrAKGuhG UfoO6soj6sLNpbPVAvNAGlh OUpETlbVHDmq0QbcUBxPFWw IHJldmVhbCBlaWdodCBseW1 dpFSec7AqppVqFL4whJ9hUP luIHNpemUgZnJvbSAwLjUge ILpTcXydVCjOyRmsHAhiJ5t lImpUPuvuptkf1FfnXMsp6G mfB1uXSJtHFL3WKRpUSP2LU WjQwSxjC7uMIAtluunNDIeK 0WuqKszvnCpi9OaTtPOTFkf Mfa4TTFftZ5wdEZkq4Grgnw hTmWmUSW5gzXvtU8snOBua3 DsfddwTfEfsL9kOdEpSJTcQ BYdJHBgLUK3VIp1jOIkKI3j SRBhh6ZzjVTegCvjv6WgsMb vbmVkLiBccGFyXHBhciBELi SNSNOwgIOpOAAtwbLtz1EnC WxpbiBsYWJlbGVkIHdpdGgg dGhlIHBhdGllbnQncyBuYW1 sBSHjL8Yin8Phx92jdrYqAn BjQGBrSKQytbucmOLvfH73P XJuYWwgaWxpYWMgbHltcGgg fk4bIFAbKGzfXERmiERncA1 4NYQyXTLomDXle6GhyEL4RV OtLhCnwTwda9JmZXYsURHvn FEci4GdNONyNm94IOckTb31 KKjoZO86KDToZdXGWXF2fqm yQ9KqXIUnvMZpsIZilKKct4 IumJE0kREfeA1ghMtcDJEwE ONmfYSsEoLGabPyxQ9awKFc i8GqdnCmwrEnO9Pch7PscGX pZGVudGlmaWVkLiBccGFyXH JijbKQBQS4fN9vGBCkSVE3B PRoYOVbvHJzeN1kqhPlhfLv ivIoqJCcdDKngAU6LWHpPZQ qhhqxJPKgHP2pBoDpUDt8RX JhzK0eBx4wlWNusR6yiPBiZ JytLRT2xMLaTFEwXKEyVIMv IH64T3WwduOuQHftBEUeVFU zhG4jQC40hGPudbKwaqGwEl upChQcS93eyT2uTZdkvOIcP Lv3xZDeKB5qIYWoKuLmlxPr qYFliIfakVThTbFmK25jduC rJU3tDDuhrNvkfgIpFGpxm4 MmXZDto3J6FZO1jRG8QM8fQ JX6hyTyoS3lKWwxsoBnFPMq IVA8KmMvpOQ4PrAutKNoIng uW41aUHsqp8YweHpwLHXqbw LgAWq9pCKuLT9sFHRcYIWuC SBpZGVudGlmaWVkIHJhbmdp asxujZ5cl1x8GJXjna7sFFK gDFB5HQNgQMN6YWWjOVSbtD E5zOP2pjL4nAEdtRObX5Cvi YKeUNVexDUztxomPc6lSDeo NX5lNLgaBR78CSArNtWokSZ tOSXxpuEDWJB6mS3qVKTvBP Y1XCGqXOHjkeEqkKznkFobo k4tCOiqSWOvRVT7ykAwuG1x vXGty2Kasl9zzJAjKKCshkN GLiBSZWNlaXZlZCBpbiBmb3 JtYWxpbiBsYWJlbGVkIHdpd GggdGhlIHBhdGllbnQncyBu KT0dVAZhK8Rvb4Slr82zwaB tYmVyIGFuZCAibGVmdCBleH Aczf4ytMXrjDqiXlQyaL1ws HVom1CyitSxNEOmFJ53zUFp oZbtLXSbLXqqDY10wgKfTiD vOWyot2AjTPWfg1M2XHN6iR U5UP6iCZH0vsFsSYopQPBpO 7OdA6B0EKU6WgdotSU9GzAv xUCrIyFhN56yYHPtd1UyL3r uJRdtH8wjeUTobfZtTEYngI lnyVFmLMbmmDxvddQ1zTKne 2WtO4jqZO0uCQznh5PfiOpz FHEvhzNjqBzygLjrfm1qDHJ wQJLePMjzWM24eWIpHVEzhj TcY3otJxCtni1sQDRsFzT7I DQvFuV7WJDmGHH0lKQ0okA4 qZGtgGVlH8RjrVXbJUAhjDI hqzviHf4xJBtcFW67CFtySO 40IGNtLiBccGFyXHBhciBTZ PZ3sY9mRWUzVMY3LOBcHKT4 fFFhZMDafB8dvFPam3Lbkus nEjZsCA5xWZQkqZ6rkIWto6 HyHzMBTkyeg71cQXr5nLDaO U7wRXQwXVdlTXFgcMTbIUah PSNcU7PdsfBtLOwoNDUqpw6 xcQhwUYwmPhWjQHXgf0c2fJ J1zCNngYJ3pVBjsErdJU7kr INlTXGnD2Tre1myqoTygX7e GVIjEZ4oPBJfZSD0KP1ypYZ sCDJrfsVsmW3qkVRga6LeHl BhcmUgbXVsdGlwbGUgZnJhZ 98rucAkMC9sQTXljLWml3Bd qBvkr8FrBILxAKTwkXMct6U dMNGrcI9nNKnwapIhVQYzBQ xoNMU8HJZzKMC0UHTkQTPjb W0aFFGklYZhgQGtjVSnyTpu QSncYVxdRG49hJVcJDFyh8u 3cNrvCSZyTZRtzGIhiG6gcb 4gVGhlIHNwZWNpbWVuIGlzI LRmq6HjZ9ZtXRL5pdOoAUAd MRieBAEqaV6mlXPsy2SsnkT dPP4jqR0eEFdtMPIyedAeTr JvbSAwLjUgeCAwLjQgeCAwL gNudWNwcM1smAppDPbhumxx p7VaqGYev8LffF6tGNVqUaU 3NCXtVoU7DFPjRHChcT7cVC BtkuhkSZLfA1PifWyiolHqc 5NoMuDXDVyvJg88riKjrI1n hIZgz4YpvutsCyQawM6sIjR uCD2zNEDbpX4jqQJuo8VgJU TzVCSfBOpmyVEtZJM6eG0rZ WQuIFxwYXJccGFyIEguIFJl Y4UphmTfOCKoKPNhLXRcw27 ewXocLZ5TGVKwnmGtlwSsPV 5rFANmgWy4HREfel97JW1uf 2SmqEgtzhRat20wlTd1TUIv f34oyWXhBBHdZvifvDOnYaj ylUFuJrBcC06iu15lwVL5cF YjkHDcd4ZtS1elJA7cKDWhT TWgeZVnfV7jpcXhvbVleFWs cyBhIHVyZXRlciBtZWFzdXJ tqzcnIV6sQTRsLClgUOm7kL zkIMnxWBbnuQE4TYZvBTHdW NUpjCPgmG4zlaLfkrWxftJe rvMbyQUmpNCbgHC0YFYoHg5 qQKFas7slxrGcPDE3kL9gAG MuDQzyz8YweuSiqmKVW5szD iBccGFyXHBhciBJLiBSZWNl wPHfMQHbgwXguMItae0uFVP jSGMJKhQmr2HswL98foEqrX VyYXRpdmUgZnJvemVuIHNlY 0Kqa93pUGxdZ98gg0ngHRpf PGFfJS1yCFcrYM44VToyWD5 3FJLkFXDxFuYxqApzb0QmBQ IpIMSskWDbQmDLwXGon9HbR 1qpBZ3oq4iqd6RxELF4puR4 GQMfl0i2oILeVRp5pRXlUX3 nDJK2uwdtYiUjPkJaV85pnY 1iVLwhmHC9PZWkSQPiAGOjw EEeqU6vdfDkpvUariIgnpSl rBSluUSazXC3UFRmGo3oQUK ol5aqnlLsUGE9gG3sJEIeAB XGXH4vTF3SU4RbZERatmejE XJccGFyZFxwbGFpblxmMFxm ubM0RXQmQEeaWCTxPKLeYiE cbGFuZzEwMzNcaGljaFxmMV wyUkPbDFWjBYxkU7zxZlMfM nMyMCBKLiBSZWNlaXZlZCBp chNlt0AbGGyzzvAwHWNpfYE kIHdpdGggdGhlIHBhdGllbn XdhyFmRN9tYQQsY3Ino8Fkm 24gbnVtYmVyIGFuZCAidXJp bmFyeSBibGFkZGVyIiBpcyB tEJUbXMPfiWSgJF7bFYJbHF llZVayO3ickKKpkW5rbVTks IOjxC2hsgB5jMEdQJp7g1Nj qnMrnB5viLCyfnWjDhxtSKM vxyDeCHKnkALbixtsj85avT 8xOHF9j837IsBJhTPnz4GxF 9crWS5qkJ5tmJNdQKQeIAPl gQSsDZEnUFpnZh84MKhnRG6 5KOvzIW58IYUfMMrbsXZuiI ojBJYsFO7cZIJbXErcAUzly ua6kAQ6IRQfAYGkkEYftdJr jVIkPDQojhddp9w2lDYnIIZ fdLK2HRXpmWqgxZCeFVcbHR UsKXKgMNY8mQWnaIJlNJTyL PS2PTIyFAG5FCYvZBYybGfp IDXhlcEfgIEzQg64BNbgYp6 0RKneRq16NEIdDCnykdusiE VieFUlMQCbJx8hACnjXU60A BpbWM80OHMmXEflqegiiQMp y0NkymyzTNMeKFG3PBTzPIG 1OEMqDWUuvKwaXp3mMNruAP degPCabLR6yRBzSZy4JgOgp WHzHcbbeXKvRnOgW46tJFDy UTT0IO63MAV6WArbOhNbaNV tMfqahSKkTiQqK01gVSHfDC BnbSksIGFuZCBhIHBvcnRpb 15ii5RfKP20CALry8SnvxOz eC9glHU3PSebUG4rQCC2jon oIeG9PnUpA06vjM7boGAtD7 XqPWxzVx90UZWbXQwqSAWgD L2zyCGvBcNqEQxuTUIaFHSl ysfqCC9gzfkqzcRwPXEzNZP rF2AjvtZrTFOwdSTjSITiLO DjUVUhgJQiFMAwAVdfKZ0gJ B2oCFR5aeXbNRWaJGoxDE9t bFgdOEKewUAyGNqvm0npkzS ffAVjhL2qBIYdFAZgHPOjnG QrgollQz4uKKktTj46GNzxZ O25TPXoCTXeumF0dNVeerkj aMMrsFK0PTStrTT2LMrvCAB 4dGVuZGluZyBpbnRvIHRoZS ByaWdodCBhbnRlcmlvciBhb qPgbabemIHaaF1tvFDqyE4w FMWhyWGlnVKexG0hCHDwQLV 9WnAzS36lBoHkgGC8gYKxeN MshEfyTWexjUVmZ5auSNLlT oJyX62nFfYzhJV6dDJejitg yPGiyEAesNYiuJQlnHKzZ0h zPOAbOzMfP11tZuIrkGD8uH MvpxipgUXmsIG0SKKhoCPqF UBjcF6jUFAwO23kTyXxwDK1 aGUgbGVmdCBsYXRlcmFsIG1 clnuashTxbqBiGD1bJCWhKK Zeb76axQldFXvik1GoODTns 6MusqfmogPuoDToBGHcZP3h lcsgdk2oYNfaYQsma2rcxyN hcHBlYXJzIHRvIGJlIGxpbW q2PZEvjW9evWcyBF43E37nF O2dYAZsbjphpDskfEBhcxjp ZOnpitG6DHAmSEgeXLIuOKQ zMjBcbGFuZzEwMzNcaGljaF zjJEvnHcVdYFIsVHjyJ3ziE jFcZnMyMCBUaGVyZSBpcyBh ZVQpY82xDRY3rUAqisG7FFQ sjRBaSWecq1gwyaRrHZNheA JzblzxUL21ZCpkYC2sGFaiF C8fBVOiQPdcH5T7MTXaoW7c dGhlIHRyaWdvbmUgYWxvbmc cmLjrZYMoV7v5WUeuoRHtCL orEY8fMFAxuSGleS9pHSTdc VKhsZ0kUJsgSQksx9qoumNx zzMeb6FojDAkQOSfGGUpbEL qtoLpposakpN1khO1kUPuoG MndI2oEIXpWJHlRy1kKITrE DHvi77naGnkEERoQCPbdbVc NJ4ffjykfhnuEY2rLXKoARB wi14kqUgwUQZfR6x6UFNrXZ ArucwdQF5vphvdqjQylzKyS N29MNTnFYRdd04ggHhkMBks z6VsLUUtkJEbsA5eUG2lqfz nsk3sOKKitgWDBYSgqUozcm FsbHkgYSBoeXBlcmVtaWMgY PZrASGaOSHwjYWlevlcCN36 WMlqQH77FKVmHFpwEFNeDF6 lq04siDnpZIQoKNOiITSiNV 8cZRYgmQ1jGjJ1zOGptU2xy LOeiR1sKKcreLrukD1zQHJl NAIhJbDcP53kd7PeOVBhw0H zyG5puVXxbK5kCPSoAmVVlN SoalIcWJfwVNHsJB5qEBKpO FTwjIPbLTMfYW76T53sJKKh hdYmABUcZVLanZAvRW0qQMG jzwkvv7RlVJmfwT04CHQetv izwi0xc0NqFSMrN9Uum8Tzk MQmjV2wdfPltcProKKddlIr DicgVC5pBHlsGGVzSHTaefm oFH1bjXWaK7FvEMMlYPV2qh LhtOFfc5EnyDTiIDnfRKTpu EHeEAXqBIN9HLonqjWnOJ58 R48wQGVwfxLekq9tg3w4GLQ bdpTlVVQxFRAgEO2EiRJlnF GbtbZmAFJam3quEEMiBXTwZ DNvp7Raz2Cbd6XbpTCmhZBv lOB4fQ7wGP2xMTO0woxgZsI kOiTnjUOqMkAcX67xi17isY jcATF5xgX7dkKfcR2gQfP3m VYyKS29YCOlt5VcIFBwIJR8 ViXSqAWlU5JwhryhVDcwk6H syMMih2OdeWYaRUTiBXScKM DyF2FcW1Ahhku6SFpcEHXos v46hRs4KVJhchRup55lm7Em AwYfORkuFHEaMU2aGYS6pYS dmANrIH5tpFEnMCHxoIOglk EgFpRaM26orY2wzSMcI5WzZ jRHxKGlQJ7rk65khDJrWXcj V6O0lTK3DX8iVBB1zlQvGNE gUVVgmVFsmz7tSDJpcz60WD RhBZXohz16WMBgQVRmIdTqK 42sgQ2cdGRoW4GjJpUFwHGr PT1dl95fmPIfdC0yrACwk8T aREMbHT4sPTImDCgpGFQgoQ UtzbJfyb5xUX1hQN5om03vb FZaDYbyvQ2deDKfhFBqo1My tU6hOWOoHeX8BXUjITM5MKO sTIBsqHYjejAyJGRiUU5gGS RoZSBhbnRlcmlvciBhbmQgc 4ObJKJmk8GxJNYxUDP9WZ9a JIIoNSQhqqAtrVL4vczlhPV nANHsjUgeAQBzKHAwdU9mFS RyaXVtIGlzIHRhbiBhbmQgZ EfaVnVzUFk7EYZfBEPjE9Cr DDZuRMMelkXpmSKvk1GaDZL veRHquO3dEH6kNPVcZAxpYG CayWItrdGczs4dROHcNbQcm HNhIlEkwWObRrKoO42uo3yd zqccKUZrbyUpRJ85ixUtAA2 5b48veIXvZTdsdo1dbZruKQ jqFJOxTZSsbiShJR0fJJ22q AQvRJszw5gxyxSeDRKrZApo s3OtiSfruIHgszFaDwhmFIU 8jYKdkJ0zxWmsRMO1KLGwaq JlN2X0nUZ4IsBMhOEjkTKct FGvf3nvUHtvRLLfcE4eSLC5 dJGhmNAfnQUwEZsni9AwtIM mCJQtzoImjM1ojERly1Bzcy 9tJa3hrYrknSaigu3oRAYcV HXuZQzea9YipCuebTNpxcOc HaknWE7zJRQrsirhDUOpGC4 oQGLmSWB1SLXmZVJbFUKpHH 01KPKez3QkwPRyL0wrNU9sJ jk8OIlkBqhoIRNhhfFut9Z0 GCWxx0LruOOfP5heED1mA1Y uFT57YCLgHGFsIBYlwzcurS VexHE5GHQncKVaHZBigJ9cZ BLiMOA8YQKcRJPdSTRamMKk nIUtUMFfbmYzMT1yaawhihZ hOO1zYD2bFBqjkKKkffYaFY LjiCBfeX0bML2yRmr2JXqrs WLvhqVyEZXea1WonlofdqHs IGJsYWNrLiBccGFyXHBhciB FYDV6eF6lDIDzPHG0QWomFK G1ioN1wKUwcORzCGSccB5rP YNhKZItO5R1FBorSFQeCCf4 AQCbbEYeVBIjTFMxJ0JuFDP cAWViZJLmy18iUTgdo2leid ViSTB6fJHpYYSut4Txmvpax kQ9EIreIHreGxraVWdaj9ec smV5dYNcXMLqk3Wmu2Jucgl xkUDawTG6TXUnkKVsPPUjoX 09CBy3CEFhshVtviwfwkYzP XKrkI9eW9cty7TerYP3afK8 gLZuuOZuuD4eHoYAPAulhKO rfLZnPWVwamHdFF0gazfsoq JgjU3vKZW3PSVpFFNsAPDgB UCtj061LThaWMW6ugSQIDWi ZRDzXXxeTYSqjRQtgN2gJOq zDWEvj45kRrZmXXqnvNgvX5 ylc9QveVIarfYxozyybyQvG BZsuO87VNehYsyrghqmzWWz gTMpnVMeaEMxr5ArCuhzPWt xMhN8BHEjkMVvuqPhqBViCj whWWRuvaKrxTBeo0P4WBlyG GwkbZPbA02hBFxqvvEuvsUc GC12EYQtowEdq7UtoBygpeb jHjY1VPAlrOZhUEKhBJdflM zxc9u1bCF6YSmgzrV2BCsbE tX6ajHWAGqdDY1hRORsyKwg ASKbj4DaNCIyR5Pgt72wj1H xcQtrONK1XBG8crZtqmXjQ6 Mtpwn8JBKxh43tCDVwNQKsw 6O2TFCjg1Gmw0DelLjfMwMe XMSoBZjtKflqa76hFYZ5bSa mW5Gqy7Ufk7AjyTigqxXdAp M2vUGkzEFdckUxEKSvXDFrR ZY5gXydx9h5yRZjtiFtbntq rzC2ZEqzGWgSVcGqPNZxAV4 tZXRyaWFsIHBvbHlwKTsgSj XmVHOwggShXS7aHEN8PDE8l qgev0Xdb5PuqYVsqMTocOO2 yR9tNHuhlQnjwL61ywJmgPA vfBCla5K7cNP9PDuqWChnQ3 Nzgag0XTsvhGnnuwFikZ2gI GFuZCBibGFkZGVyIHdhbGws HS2lCODqtZksUCYoo0FqCVP lB3Hne226CQytWFuccnwgmN MgmRPiDRbiCaT6AIJklMxue JRmqpIcwVdtEaU9DDHbAUY3 NUC0NqT6EOPGFddiAOroCnV sg4Hpmjo1EOeqNHJ0ikCYSb HzELPymcj3GYDcW3BsHFQaq ONci9OorQwzr8YsLcSsNZRp vsplRCYeWo4dCwPnYGl3DFB pkN5rRd4yxBKorN9ltINaCP ueALQ4gVFaWYAkWDBzWMJzV B04B4NhwlSgCSigLTRcROPh hL1pRZ59aOCultHmziFiRoP xFDUrO4QevUFdjF5bhITkz2 RlcyIgaXMgYSByZWQteWVsb Z51RXDomPTti1TgoPrdf5Ew CCXsBHalSM90BEZyZQFfcNH zc1TsTYRoNc7dWInmTi3dWR ibEO32FTZoRzVKeoArqD4ob SUri3DzwtQbekDuG6Ouq5Wc eSBpZGVudGlmaWVkLiBccGF bITHnjtULGSS3tT3mYKZjEF J0AQwuARPtmCCuuX0fkaWwc zVklxWplCJayNDwzKG4QJFp ICBccGFyXHBhciBMLiBSZWN jlMHsFXLgbbEly6EdFHlntk BsYWJlbGVkIHdpdGggdGhlI JGsbJkhuhKzxmLxGG8vWKYk U2Qei1Biw30ljfNaKqDnQEF iOYRhYMGcHR6tvWdmWVucEA OvhKKbaCyvPAfgx7WtdIBiw CBvZiBhbiBhcHBlbmRpeCBt ZWFzdXJpbmcgNCBjbSBpbiB sZF9efFdstDDuQyPtK32itJ 5yTQpodNH4FYWku3t8gWRqm WXvU1vnAAFjNJFnCRFbEO9x jIfxdIFlh7BczK1sACWsOAA 8GXGlNJC7SZDpYZJhfU9kLA hlIHNwZWNpbWVuIGlzIHNlY 1Ngt55rQPU4riCxBVAcFUyn TFYzqS3fihCiGHMgtZFupkn nSQ13TJAuSHofMNGbQZ0soU EkUqPvgPIuLNXmxiRGMSN9w U1wADBuDNA9OGibAYStnKKz bdFurSgvg8FwS1acTJdkoYL wW9ipXSB9YIGzo0PqaGG2gY W2YNlzUZGhTZAuiOhqcuPqH KXfmVUch5BriFA5wZGkDLTn Q8Nos88nDBLyj75wJBEoOP6 syGteMT0qVUElAYIdKRKfOI FoDZ1eqWktYQVHXQ1exLgoZ XJ9 INTRAOPERATIVE z9vwoZTtCCOeqZWsWdAjGKZ CONSULTATION (test eQWJzn9azHAGhgLPwRpWcHz code = 3363) NcZnRuYmpcdWMxXGRlZmYwe 0uev527uZWty3soJJFiEkH1 nYNwDLCnvSWaF346RLQbZPt zw4dgz4YxPJFpsBWcg5T8HL ASetivkJj2wFojX45xr9T3B winV2yuOHWzGIxmFLJnVZkh eSSqGMY4RIJpTYR4BLtfthV fvdK7QEccoPFhJmO3XYg7r6 jczSqtAONyKUM1i8ytMEeds wKxBM0cej3bxFo6u6knfhRk XTBiZCQuzSHOTNKvL9HbtEo rDs7yxOh8oWroEnppXFM2Eb p9XX8fzf69jzg1kVitFIYrk lxwQcG0YDujQWXplpqwEAt7 MFxtYXJnbDcyMFxtYXJncjc yMFxtYXJndDcyMFxtYXJnYj svYFghPBEeOCL8DKoor896U MO4LGvza4gpe0zfuGWiDaf2 LOBzEjRzPpmgWJrko8Ylq7k uHAEcvm5cGKH5zQDjoMcep0 F7eMJfBBSxwAXnwmXyRPQzW bW7MZzsKJ5ovv79XVZjHNS7 dw9xgFRhiYrwdqDuhDZlHNp nK7RwZFHxi055ZCWeZ1CdFL Xpj5A3ogFmOzIhUVUklVT7k pR2IOFrJUu1iRVxwvH5xsKv cLLfM6pdcY01DpXdiMPvF4X qlQ75MyStnOXcL0RpoE93Dl IgaTKeA2ZxtW84KvJioDPdU IYzaGUdFm6jvRLrvWUbo2St nJMfECzqM76yq470TMRfcvC kW2kjjSXbbyhtwNHibrrlIQ xmczIwXHFsXHBsYWluXGYwX MLhAbJipZwdjY0pTsPyBeRa FKCWPp9bYB0eG8VQGHcWDwN WANXXEh7VLKV9LVbxCNKyuZ FyIEZTSDogVVJFVEVSLCBMR ACLTIHIV7NMJYXVZBGWFC85 ZZHoswGnXUPmRS3LY5WAWAL LRVBLJiWXGBiDL07ADeOHLR xwYXJccGFyIFRoaXMgaXMga R9ub8SlRZZyHfmhMDStOKQi wCyuqQ6dFAPkOVmmsa0rikJ ipdNZhSz4RUQpGNNwvHXuXC nnUOSuVc2dYTtbEHPieIBeS PYxvdIXP3gbIWEKC1lECQYH RVRFUiwgUklHSFQgRElTVEF MHW3PCfeKFvkxbSHtUNVfIF IRGFfIRSbXFUUMU1GgZERWG NkVZO8FPXplCCFdaQLnGFNw oTObcHZgaK0rw7XwASSrHax dBALzQXHgmRciaM9uHXTwAR ighb2mvuRzgkKJjNi9JTVqR QK2WKVzKtM3EJMgwP4buRWl fQ== MICROSCOPIC s2gbdUNzLULooAZuLpXpRZS DESCRIPTION (test code bHJIjv3dnTTKbhJLyMyXpOb = 3371) NcZnRuYmpcdWMxXGRlZmYwe 1pfw874oZWzc1rdRLWhDeH3 bPDmDGXrqVPbD672BOStEHs sv5ssi8VoVGUnjEBxz7F8HR DKxpvgiUs3kIkhN02lk5C1A nafE4gvSDRmIDPaC1QxFT9a TOYhAyn8MVM6CTX3JOUaZOZ pF3YjEZ5bQSFbiQZaGLs6o0 gnhXjcKYSsWHX6f0uoYRoue pApNL6rsq4wxBq8y7vydwWf BHWoPBDkzDLNEPRoB4QgoLl tHq0drHw2qQvnLjnhXUD9Ym q4RR3zed27pji2kCtaWGVmx fcpWkZ1MMaoQMPhwdqxJOe4 MFxtYXJnbDcyMFxtYXJncjc yMFxtYXJndDcyMFxtYXJnYj gvPTecYXTgWOB6RUovs361D DU2LAhee7msi6xcvCWbYru8 REAnSbWcJqbmLVjrv3Akn3v jBLUmog0dJCN8oFXuaGyny3 P7fGKvJWXdpBLkjxPpEURfG xM8EFdlLO3mqp32GRXhRPG0 wu9xgUFgjKmcvvYifTRsMMp pV8JpMEGoj610WSBsA4ReSG Enp4K4ftWrUrFiJKDjiOA7r dY6SETdZLn2nALtnlO8jjNv nCNqZ1btoT52EfNfuIUsO2M lbH81OxZzfWEkW5AgmC02Xm NfnJGaH5PavO39GfYvfMIrX NHuaSQzSj0whDRugXSof3Mh mHBuEMoeG96wf050QNNgsoY zB0mbdOGmfzgejQGzjcqzSK srndO5NGWyWHEgDYvyTQCvD GZzMjBcbGFuZzEwMzNcaGlj dLvhMAshHvKpLKUrQOnxL7y cZjFcZnMyMCBBLUwgUGVyZm 7ylLObHrwxXGG7 [facility] [id number] 13:30:00Surgical Pathology Report Case: [id number] Authorizing Provider: Dick Henriquez MD Collected: 01/30/2020 09:40 AM Ordering Location: [facility] Received: 01/30/2020 10:59 AM SERVICES Pathologist: Reinaldo Matta MD Specimens: A) -Lymph Node, RIGHT COMMON ILIAC LYMPH NODES B) - Lymph Node, RIGHT EXTERNAL ILIAC LYMPH NODES C) - Lymph Node, RIGHT OBTURATOR LYMPH NODES D) - Lymph Node, RIGHT INTERNAL ILIAC LYMPH NODES E) - Lymph Node,LEFT COMMON ILIAC LYMPH NODES F) - Lymph Node, LEFT EXTERNAL ILIAC LYMPH NODES G) - Lymph Node, LEFT OBTURATOR LYMPH NODES H) - Ureter, Left, LEFT DISTAL URETER FOR FROZEN I) - Ureter, Right, RIGHT DISTAL URETER FOR FROZEN J) - Urinary Bladder, ANTERIOR PELVIC EXENTERATION K) - Lymph Node, PRE-SACRAL LYMPH NODES L) - Appendix A. LYMPH NODES, RIGHT COMMON ILIAC, DISSECTION: - THREE BENIGN LYMPH NODES (0/3)B. LYMPH NODES, RIGHT EXTERNAL ILIAC, DISSECTION: - FIVE BENIGN LYMPH NODES (0/5)C. LYMPH NODES, RIGHT OBTURATOR, DISSECTION: - SEVEN BENIGN LYMPH NODES (0/7)D. LYMPH NODES, RIGHT INTERNAL ILIAC, DISSECTION: - TWO BENIGN LYMPH NODES (0/2)E. LYMPH NODES, LEFT COMMON ILIAC,DISSECTION: - FOUR BENIGN LYMPH NODES (0/4)F. LYMPH NODES, LEFT EXTERNAL ILIAC, DISSECTION: - FIVE BENIGN LYMPH NODES (0/5)G. LYMPH NODES, LEFT OBTURATOR, DISSECTION: - FIVE BENIGN LYMPH NODES (0/5)H. URETER, LEFT DISTAL, EXCISION: - NO PATHOLOGIC DIAGNOSISI. URETER, RIGHT DISTAL, EXCISION: - NOPATHOLOGIC DIAGNOSISJ. 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 SOFT TISSUE, LABELED "LYMPH NODES, PRE-SACRAL", EXCISION: - BENIGN FIBROADIPOSE TISSUE, NO LYMPH NODES IDENTIFIEDL. APPENDIX, APPENDECTOMY: - FIBROUS OBLITERATION OF THE TIP Signing Pathologist Direct Phone Line: [phone] signed by Reinaldo Matta MD on 02/01/2020 at 1:30 PMAll of the residual invasive tumor is of the plamacytoid/signet ring cell type. URINARY BLADDER: Cystectomy, Anterior Exenteration (Bladder - J)8th Edition - Protocol posted: 09/15/2018SPECIMEN Procedure: Anterior exenteration TUMOR Tumor Site: [place] Histologic Type: Urothelial carcinoma, 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 Histologic Grade: High-grade Tumor Size: Cannot be determined: MULTIFOCAL, LARGEST FOCIUS 1.5 CM Tumor Extension: Tumor invades perivesical soft tissue : Microscopically Lymphovascular Invasion: Not identified Tumor Configuration: Ulcerated MARGINS Margins: Uninvolved by invasive carcinoma and carcinoma in situ / noninvasive urothelial carcinoma LYMPH NODES Number of Lymph Nodes Involved:0 Number of Lymph Nodes Examined: 32 PATHOLOGIC STAGE CLASSIFICATION (pTNM, AJCC 8th Edition) Primary Tumor (pT): pT3a Regional Lymph Nodes (pN): pN0 43030 x [id number] X [id number] x [id number] diagnosis: Malignant neoplasm of the urinary bladder. Procedure: Radical cystectomy with creation of continent diversion, bilateral pelvic lymph node dissection. A. Right common iliac lymph nodes; B. Right external iliac lymph nodes; C. Right obturator lymph node; D. Right internal iliac lymph node; E. Left common iliac lymph nodes;F. Left external iliac lymph nodes; H. Left distal ureter;I. Right distal ureter; J. Urinary bladder; K, presacral lymph node; L. AppendixA. Received in formalin labeled with the patient's name, accession number and "right common iliac lymph nodes" is a yellow-red fibrofatty soft tissue fragment that measures 3.5 x 2.2 x 0.8 cm. The specimen is dissected toreveal two lymph nodes measuring up to 1.5 x 1.0 x 0.5 cm. Section code: A1, two lymph nodes.B. Received in formalin labeled with the patient's name, accession number and "right external iliac lymph nodes" is a red-yellow fibrofatty soft tissue fragment that measures 6.0 x 3.8 x 2.0 cm. Five lymph nodes are identified ranging in size from 0.5 x 0.5 x 0.5 up to the largest measuring 2.2 x 1.8 x 0.6 cm. Section code: B1, four lymph nodes; B2, one lymph node bisected. C. Received in formalin labeled with the patient's name, accession number and "right obturator lymph node" are multiple fragments of yellow adipose tissue that measures in aggregate 8.8 x 7.0 x 2.0 cm. A surgical clip is identified within the specimen. The specimen is resected to reveal eight lymph nodes ranging in size from 0.5 x 0.4x 0.4 up to the largest measuring 4.5 x 1.5 x 0.6 cm. Section code: C1, five lymph nodes; C2, two lymph nodes; C3 to C4, the largest lymph node serially sectioned. D. Received in formalin labeled with the patient's name, accession number and "right internal iliac lymph nodes" is a yellow-red fibrofatty soft tissue that measures 3.5 x 2.5 x 0.5 cm. A surgical clip is present within the specimen. No lymph nodes are grossly identified. Section code: D1, specimen entirely submitted.E. Received in formalin labeled with the patient's name, accession number and "left common iliac lymph nodes" are multiplefragments of yellow adipose tissue that measure in aggregate, 4.0 x 4.0 x 0.8 cm. Grossly, three lymph nodes are identified ranging in size from 1.5 x 0.5 x 0.5 cm up to the largest measuring 3.0 x 1.3x 0.6 cm. Section code: E1, one lymph node; E2, two lymph nodes.F. Received in formalin labeled withthe patient's name, accession number and "left external iliac lymph nodes" are multiple fragments ofadipose tissue that measures in aggregate 5.8 x 5.5 x 1.3 cm. A surgical clip is identified within the specimen. Grossly, five lymph nodes are identified ranging from 0.7 x 0.6 x 0.4 up to the largest measuring 2.1 x 1.8 x 0.4 cm. Section code: F1, three lymph nodes; F2, one lymph node; F3, one lymph node. G. Received in formalin labeled with the patient's name, accession number and "left obturator lymph node" are multiple fragments of adipose tissue that measures in aggregate 8.0 x 5.5 x 1.1 cm. A surgical clip is identified within the specimen. The specimen is dissected to reveal 5 lymph nodes ranging in size from 0.5 x 0.4 x 0.4 up to the largest measuring 5.3 x 1.7 x 0.5 cm. Section code: G1, four lymph nodes; G2 to G3, one lymph node, serially sectioned. H. Received fresh from the OR for intraoperative frozen section consultation is a 0.8 x 0.8 x 0.5 cm soft tissue specimen. The specimen includes a ureter measuring 0.2 cm in luminal diameter. The specimen is entirely submitted for frozen section diagnosis as FSH1. I. Received fresh from the OR for intraoperative frozen section diagnosis is a 1.2 x 0.8 x 0.6 cm soft tissue specimen. The specimen shows a ureter with a lumen measuring 0.3 cm in diameter. The specimen is entirely submitted for frozen section as FSI. [place]/Pauline. Received in formalin labeled with the patient's name, accession number and "urinary bladder" is a specimen of radical cystectomy specimen with hysterectomy and bilateral salpingooophorectomy. The specimen includes a bladder (13.5 x 8.6 x 5.8 cm), urethra (1.3 [...] wall measuring 4.5 cm in length x 3.5 cm in diameter.The ureteric margins are received clipped. The bladder is opened to reveal an ulcerated lesion (lesion #1) measuring 3.2 x 2.8 x 0.4 cm, on the right lateral wall extending into the right anterior and right posterior aspects located 6.2 cm from the urethral margin, 2.1 cm from the right ureteric margin, 2.1 cm from the right lateral margin, 5 cm from the left lateral margin and 0.3 cm from the inked posterior bladder margin. The lesion appears to be limited to the mucosa. There is a second ulceratedtan lesion measuring 1.5 x 1.0 x 0.3 cm located in the trigone along the right lateral and anterior aspect. The lesion is located 3.5 cm inferior to the lesion #1, 2.3 cm from the urethral margin, 1.2cm from the right ureteric margin and 0.5 cm from the inked anterior margin. Additionally a hyperemic area measuring 0.6 x 0.5 cm is seen on the bladder dome along the posterior wall located 0.6 cm superior to lesion #1. The remainder of the bladder mucosa is edematous and congested; however, no othergross lesions are identified. The ureteric orifices are unremarkable. The vaginal mucosa is grossly unremarkable.The uterus shows an area of serosal disruption measuring 0.5 x 0.5 cm on the fundus along the anterior aspect. The cervical os is occluded. The ectocervix is buck-white and smooth. The endocervical canal measures 2.5 cm in length. The endometrial cavity measures 1.5 cm from [id number] and 3.5 cm in length. The endometrium measures 0.2 cm in thickness. An endometrial polyp measuring 0.6 x 0.5 x 0.5 cm is seen on the anterior and superior aspect of the endometrial cavity. The myometrium is buck and diffusely trabeculated and measures up to 1.2 cm in thickness. A 0.5 x 0.5 x 0.5 cm whorled intramural myometrial nodule is present. No other lesions are grossly identified within the uterine cavity. The perivesical adipose tissue is dissected for lymph nodes. No lymph nodes are grossly identified. Ink code: bladder anterior margin - blue; bladder posterior margin - green; bladder right lateral margin - red; bladder left lateral margin - orange; uterus anterior - blue; uterus posterior -black. Section code: J1, urethral margin, en face; J2 to J6, bladder ulcerated lesion (lesion #1 with posterior wall); J7, lesion with closest right lateral margin; J8, anterior margin closest to the lesion; J9, left lateral margin closest to the lesion; J10 to J12, smaller lesion (lesion #2) with closest anterior margin; J13, right ureteric orifice; J14, hyperemic bladder mucosa; J15, trigone, title insurance sales representative section; J16, bladder wall with vagina; J17 to J19, one full cross section of the uterus and cervix along the posterior wall; J20 to J22, one full cross section of the uterus and cervix with anterior wall (J20, endometrial polyp); J23, area of uterus, serosal disruption with intramural nodule; J24, cervix with vagina and bladder wall, one full cross section; J25, right tube; J26, right ovary; J27, left tube; J28, left ovary; J29 to J30, perivesical adipose tissue. K. Received in formalin labeled with the patient's name, accession number and "presacral lymph nodes" is a red- yellow adiposetissue fragment that measures 3.0 x 2.0 x 0.5 cm. No lymph nodes are grossly identified. Section code: K1, specimen entirely submitted. L. Received in formalin labeled with the patient's name, accession number and "appendix" is a terminal segment of an appendix measuring 4 cm in length x 1.0 cm in diameter with attached mesoappendix measuring 4.5 x 1.5 x 0.5 cm. The specimen is sectioned to reveal alumen measuring 0.4 cm in diameter. Section code: L1, appendix, surgical margin at distal tip; L2, additional title insurance sales representative sections from appendix and the mesoappendix. MH/plFROZEN SECTION DIAGNOSIS: FSH: URETER, LEFT DISTAL MARGIN: - NEGATIVE FOR MALIGNANCY This is informed by Dr. Amaro to Dr. Henriquez on January 29, at 11:19 a.m. FSI. RIGHT URETER, RIGHT DISTAL MARGIN: - NEGATIVE FOR MALIGNANCYThis is informed by Dr. Amaro to Dr. Henriquez on January 29 at 11:19 a.m.A-L Performed.HEMOGLOBIN AND [id number] 10:52:00 Test Item Value Reference Range Interpretation Comments HEMOGLOBIN (BEAKER) (test code = 7.1 GM/DL 11.2-15.7 L 410) HEMATOCRIT (BEAKER) (test code = 21.4 % 34.1-44.9 L 411) Neuropsychology Medical Consultant ID - [id number] 06:15:00 Test Item Value Reference Range Interpretation Comments PHOSPHORUS (BEAKER) (test code = 2.5 mg/dL 2.3-4.7 604) Neuropsychology Medical Consultant ID - [place] [id number] 06:15:00 Test Item Value Reference Range Interpretation Comments MAGNESIUM (BEAKER) (test code = 1.9 mg/dL 1.6-2.6 627) Neuropsychology Medical Consultant ID - [place] LBASIC METABOLIC [id number] 06:15:00 Test Item Value Reference Range Interpretation Comments SODIUM (BEAKER) 137 meq/L 136-145 (test code = 381) POTASSIUM (BEAKER) 4.3 meq/L 3.5-5.1 (test code = 379) CHLORIDE (BEAKER) 108 meq/L 98-107 H (test code = 382) CO2 (BEAKER) (test 27 meq/L 22-29 code = 355) BLOOD UREA NITROGEN 15 mg/dL 7-21 (BEAKER) (test code = 354) CREATININE (BEAKER) 0.84 mg/dL 0.57-1.25 (test code = 358) GLUCOSE RANDOM 113 mg/dL 70-105 H (BEAKER) (test code = 652) CALCIUM (BEAKER) 8.3 mg/dL 8.4-10.2 L (test code = 697) EGFR (BEAKER) (test 66 mL/min/1.73 ESTIMA BLANCA GFR IS code = 1092) sq m NOT ACCURATE CREATININE CLEARANCE IN PREDICTING GLOMERULAR FILTRATION RATE . ESTIMATED GFR I S NOT APPLICABLE FOR DIALYSIS PATIEN TS. Neuropsychology Medical Consultant ID - [place] LHEMOGLOBIN AND [id number] 05:33:00 Test Item Value Reference Range Interpretation Comments HEMOGLOBIN (BEAKER) (test code = 7.0 GM/DL 11.2-15.7 L 410) HEMATOCRIT (BEAKER) (test code = 20.9 % 34.1-44.9 L 411) Neuropsychology Medical Consultant ID - [id number] METABOLIC [id number] 05:02:00 Test Item Value Reference Range Interpretation Comments SODIUM (BEAKER) 136 meq/L 136-145 (test code = 381) POTASSIUM (BEAKER) 4.3 meq/L 3.5-5.1 (test code = 379) CHLORIDE (BEAKER) 106 meq/L 98-107 (test code = 382) CO2 (BEAKER) (test 17 meq/L 22-29 L code = 355) BLOOD UREA NITROGEN 14 mg/dL 7-21 (BEAKER) (test code = 354) CREATININE (BEAKER) 1.04 mg/dL 0.57-1.25 (test code = 358) GLUCOSE RANDOM 219 mg/dL 70-105 H (BEAKER) (test code = 652) CALCIUM (BEAKER) 8.5 mg/dL 8.4-10.2 (test code = 697) EGFR (BEAKER) (test 52 mL/min/1.73 ESTIMA BLANCA GFR IS code = 1092) sq m NOT ACCURATE CREATININE CLEARANCE IN PREDICTING GLOMERULAR FILTRATION RATE . ESTIMATED GFR I S NOT APPLICABLE FOR DIALYSIS PATIEN TS. Neuropsychology Medical Consultant ID - [id number] 04:59:00 Test Item Value Reference Range Interpretation Comments PHOSPHORUS (BEAKER) (test code = 4.0 mg/dL 2.3-4.7 604) Neuropsychology Medical Consultant ID - [id number] 04:59:00 Test Item Value Reference Range Interpretation Comments MAGNESIUM (BEAKER) (test code = 1.4 mg/dL 1.6-2.6 L 627) Neuropsychology Medical Consultant ID - DBHEMOGLOBIN AND [id number] 04:41:00 Test Item Value Reference Range Interpretation Comments HEMOGLOBIN (BEAKER) (test code = 9.4 GM/DL 11.2-15.7 L 410) HEMATOCRIT (BEAKER) (test code = 27.9 % 34.1-44.9 L 411) Neuropsychology Medical Consultant ID - [id number] METABOLIC [id number] 16:33:00 Test Item Value Reference Range Interpretation Comments SODIUM (BEAKER) 139 meq/L 136-145 (test code = 381) POTASSIUM (BEAKER) 3.6 meq/L 3.5-5.1 (test code = 379) CHLORIDE (BEAKER) 114 meq/L 98-107 H (test code = 382) CO2 (BEAKER) (test 18 meq/L 22-29 L code = 355) BLOOD UREA NITROGEN 12 mg/dL 7-21 (BEAKER) (test code = 354) CREATININE (BEAKER) 0.75 mg/dL 0.57-1.25 (test code = 358) GLUCOSE RANDOM 212 mg/dL 70-105 H (BEAKER) (test code = 652) CALCIUM (BEAKER) 6.8 mg/dL 8.4-10.2 L (test code = 697) EGFR (BEAKER) (test 76 mL/min/1.73 ESTIMA BLANCA GFR IS code = 1092) sq m NOT ACCURATE CREATININE CLEARANCE IN PREDICTING GLOMERULAR FILTRATION RATE . ESTIMATED GFR I S NOT APPLICABLE FOR DIALYSIS PATIEN TS. Neuropsychology Medical Consultant ID - [id number] 16:29:00 Test Item Value Reference Range Interpretation Comments PHOSPHORUS (BEAKER) (test code = 5.0 mg/dL 2.3-4.7 H 604) Neuropsychology Medical Consultant ID - [id number] 16:29:00 Test Item Value Reference Range Interpretation Comments MAGNESIUM (BEAKER) (test code = 1.2 mg/dL 1.6-2.6 L 627) Neuropsychology Medical Consultant ID - BSCBC with platelet count + automated [id number] 16:14:00 Test Item Value Reference Range Interpretation Comments WBC (test code = 6690-2) 13.6 3.5- 10.5 K/L H RBC (test code = 789-8) 3.03 3.93- 5.22 M/L L MCHC (test code = 786-4) 33.6 32.2- 35.5 GM/DL L Hematocrit (test code = 4544-3) 27.1 % 34.1-44.9 L MCV (test code = 787-2) 89.4 fL 79.4-94.8 MCH (test code = 785-6) 30.0 pg 25.6-32.2 RDW (test code = 788-0) 16.1 % 11.7-14.4 H Platelets (test code = 777-3) 135 150- 450 K/CU MM L MPV (test code = 45480-6) 10.6 fL 9.4-12.3 nRBC (test code = 413) 0 0- 0 /100 WBC % Neutros (test code = 429) 91 % % Lymphs (test code = 430) 2 % % Monos (test code = 431) 7 % % Eos (test code = 432) 0 % % Baso (test code = 437) 0 % # Neutros (test code = 670) 12.34 1.56- 6.13 K/L H # Lymphs (test code = 414) 0.28 1.18- 3.74 K/L L # Monos (test code = 415) 0.92 0.24- 0.36 K/L H # Eos (test code = 416) 0.00 0.04- 0.36 K/L L # Baso (test code = 417) 0.01 0.01- 0.08 K/L Immature Granulocytes-Relative 0 % 0-1 (test code = 2801) Lab Interpretation (test code = Abnormal 88744-2) [facility] W/PLT COUNT & AUTO [id number] 16:14:00 Test Item Value Reference Range Interpretation Comments WHITE BLOOD CELL COUNT (BEAKER) 13.6 K/ L 3.5-10.5 H (test code = 775) RED BLOOD CELL COUNT (BEAKER) 3.03 M/ L 3.93-5.22 L (test code = 761) HEMOGLOBIN (BEAKER) (test code = 9.1 GM/DL 11.2-15.7 L 410) HEMATOCRIT (BEAKER) (test code = 27.1 % 34.1-44.9 L 411) MEAN CORPUSCULAR VOLUME (BEAKER) 89.4 fL 79.4-94.8 (test code = 753) MEAN CORPUSCULAR HEMOGLOBIN 30.0 pg 25.6-32.2 (BEAKER) (test code = 751) MEAN CORPUSCULAR HEMOGLOBIN CONC 33.6 GM/DL 32.2-35.5 (BEAKER) (test code = 752) RED CELL DISTRIBUTION WIDTH 16.1 % 11.7-14.4 H (BEAKER) (test code = 412) PLATELET COUNT (BEAKER) (test 135 K/CU MM 150-450 L code = 756) MEAN PLATELET VOLUME (BEAKER) 10.6 fL 9.4-12.3 (test code = 754) NUCLEATED RED BLOOD CELLS 0 /100 WBC 0-0 (BEAKER) (test code = 413) NEUTROPHILS RELATIVE PERCENT 91 % (BEAKER) (test code = 429) LYMPHOCYTES RELATIVE PERCENT 2 % (BEAKER) (test code = 430) MONOCYTES RELATIVE PERCENT 7 % (BEAKER) (test code = 431) EOSINOPHILS RELATIVE PERCENT 0 % (BEAKER) (test code = 432) BASOPHILS RELATIVE PERCENT 0 % (BEAKER) (test code = 437) NEUTROPHILS ABSOLUTE COUNT 12.34 K/ L 1.56-6.13 H (BEAKER) (test code = 670) LYMPHOCYTES ABSOLUTE COUNT 0.28 K/ L 1.18-3.74 L (BEAKER) (test code = 414) MONOCYTES ABSOLUTE COUNT (BEAKER) 0.92 K/ L 0.24-0.36 H (test code = 415) EOSINOPHILS ABSOLUTE COUNT 0.00 K/ L 0.04-0.36 L (BEAKER) (test code = 416) BASOPHILS ABSOLUTE COUNT (BEAKER) 0.01 K/ L 0.01-0.08 (test code = 417) IMMATURE GRANULOCYTES-RELATIVE 0 % 0-1 PERCENT (BEAKER) (test code = 2801) Blood gas, [id number] 16:08:00 Test Item Value Reference Range Interpretation Comments pH, Arterial (test code = 2744-1) 7.35 7.35-7.45 pCO2, Arterial (test code = 32 35- 45 mmHg L 2019-8) pO2, Arterial (test code = 319 80- 90 mmHg H 2703-7) O2 Sat, Arterial (test code = 99.7 % 96-97 H 2708-6) HCO3, Arterial (test code = 18 mmol/L 21-29 L 1960-4) Base Excess, Arterial (test code -7.5 mmol/L -2-3 L = 1925-7) Patient Temperature (test code = 35.4 C 8310-5) FIO2 (test code = 1819) 100 % Lab Interpretation (test code = Abnormal 61776-9) [facility] [id number] 16:08:00 Test Item Value Reference Range Interpretation Comments Hemoglobin (test code = 786-4) 10.5 g/dL 12-15 L Hematocrit (test code = 4544-3) 31.0 % 36-45 L Lab Interpretation (test code = Abnormal 87838-4) [facility] [id number] 16:08:00 Test Item Value Reference Range Interpretation Comments Glucose (test code = 2345-7) 224 mg/dL 70-110 H Lab Interpretation (test code = Abnormal 60632-5) [facility] [id number] 16:08:00 Test Item Value Reference Range Interpretation Comments Sodium (test code = 2951-2) 133 meq/L 136-145 L Lab Interpretation (test code = Abnormal 81844-2) [facility], [id number] 16:08:00 Test Item Value Reference Range Interpretation Comments PH ARTERIAL (BEAKER) (test code = 7.35 7.35-7.45 383) PCO2 ARTERIAL (BEAKER) (test code 32 mmHg 35-45 L = 384) PO2 ARTERIAL (BEAKER) (test code 319 mmHg 80-90 H = 385) O2 SATURATION ARTERIAL (BEAKER) 99.7 % 96.0-97.0 H (test code = 386) HCO3 ARTERIAL (BEAKER) (test code 18 mmol/L 21-29 L = 388) BASE EXCESS ARTERIAL (BEAKER) -7.5 mmol/L -2.0-3.0 L (test code = 387) PATIENT TEMPERATURE (BEAKER) 35.4 C (test code = 1818) FIO2 (BEAKER) (test code = 1819) 100.0 % SODIUM NA-STAT [id number] 16:08:00 Test Item Value Reference Range Interpretation Comments SODIUM (BEAKER) (test code = 381) 133 meq/L 136-145 L GLUCOSE-STAT [id number] 16:08:00 Test Item Value Reference Range Interpretation Comments GLUCOSE RANDOM (BEAKER) (test code 224 mg/dL 70-110 H = 652) HGB/HCT (H&H) - STAT [id number] 16:08:00 Test Item Value Reference Range Interpretation Comments HEMOGLOBIN (BEAKER) (test code = 10.5 g/dL 12.0-15.0 L 410) HEMATOCRIT (BEAKER) (test code = 31.0 % 36.0-45.0 L 411) Potassium-Stat [id number] 16:05:00 Test Item Value Reference Range Interpretation Comments Potassium (test code = 2823-3) 3.7 meq/L 3.6-5.5 Lab Interpretation (test code = Normal 85621-0) [facility] [id number] 16:05:00 Test Item Value Reference Range Interpretation Comments POTASSIUM (BEAKER) (test code = 3.7 meq/L 3.6-5.5 379) Calcium, [id number] 14:59:00 Test Item Value Reference Range Interpretation Comments Calcium, Ion (test code = 1994-3) 1.07 mmol/L 1.12-1.27 L pH, Blood (test code = 86382-2) 7.29 Lab Interpretation (test code = Abnormal 67445-8) [facility] Diego[facility], [id number] 14:59:00 Test Item Value Reference Range Interpretation Comments CALCIUM IONIZED (BEAKER) (test 1.07 mmol/L 1.12-1.27 L code = 698) PH, BLOOD (BEAKER) (test code = 7.29 1810) BLOOD GAS, [id number] 14:55:00 Test Item Value Reference Range Interpretation Comments PH ARTERIAL (BEAKER) (test code = 7.29 7.35-7.45 L 383) PCO2 ARTERIAL (BEAKER) (test code 34 mmHg 35-45 L = 384) PO2 ARTERIAL (BEAKER) (test code 216 mmHg 80-90 H = 385) O2 SATURATION ARTERIAL (BEAKER) 99.4 % 96.0-97.0 H (test code = 386) HCO3 ARTERIAL (BEAKER) (test code 16 mmol/L 21-29 L = 388) BASE EXCESS ARTERIAL (BEAKER) -9.8 mmol/L -2.0-3.0 L (test code = 387) PATIENT TEMPERATURE (BEAKER) 35.3 C (test code = 1818) FIO2 (BEAKER) (test code = 1819) 60.0 % Temp 36.3CSODIUM NA-STAT [id number] 14:55:00 Test Item Value Reference Range Interpretation Comments SODIUM (BEAKER) (test code = 381) 134 meq/L 136-145 L Temp 36.3CGLUCOSE-STAT [id number] 14:55:00 Test Item Value Reference Range Interpretation Comments GLUCOSE RANDOM (BEAKER) (test code 226 mg/dL 70-110 H = 652) Temp 36.3CHGB/HCT (H&H) - STAT [id number] 14:55:00 Test Item Value Reference Range Interpretation Comments HEMOGLOBIN (BEAKER) (test code = 10.4 g/dL 12.0-15.0 L 410) HEMATOCRIT (BEAKER) (test code = 31.0 % 36.0-45.0 L 411) Temp 36.3CPOTASSIUM-STAT [id number] 14:51:00 Test Item Value Reference Range Interpretation Comments POTASSIUM (BEAKER) (test code = 3.8 meq/L 3.6-5.5 379) Temp 36.3CBLOOD GAS, [id number] 12:59:00 Test Item Value Reference Range Interpretation Comments PH ARTERIAL (BEAKER) (test code = 7.39 7.35-7.45 383) PCO2 ARTERIAL (BEAKER) (test code 31 mmHg 35-45 L = 384) PO2 ARTERIAL (BEAKER) (test code 212 mmHg 80-90 H = 385) O2 SATURATION ARTERIAL (BEAKER) 99.4 % 96.0-97.0 H (test code = 386) HCO3 ARTERIAL (BEAKER) (test code 18 mmol/L 21-29 L = 388) BASE EXCESS ARTERIAL (BEAKER) -6.3 mmol/L -2.0-3.0 L (test code = 387) PATIENT TEMPERATURE (BEAKER) 35.7 C (test code = 1818) FIO2 (BEAKER) (test code = 1819) 60.0 % TEMP-35.7CCALCIUM, [id number] 12:59:00 Test Item Value Reference Range Interpretation Comments CALCIUM IONIZED (BEAKER) (test 1.12 mmol/L 1.12-1.27 code = 698) PH, BLOOD (BEAKER) (test code = 7.37 1810) SODIUM NA-STAT [id number] 12:59:00 Test Item Value Reference Range Interpretation Comments SODIUM (BEAKER) (test code = 381) 133 meq/L 136-145 L TEMP-35.7CPOTASSIUM-STAT [id number] 12:59:00 Test Item Value Reference Range Interpretation Comments POTASSIUM (BEAKER) (test code = 3.4 meq/L 3.6-5.5 L 379) TEMP-35.7CGLUCOSE-STAT [id number] 12:59:00 Test Item Value Reference Range Interpretation Comments GLUCOSE RANDOM (BEAKER) (test code 193 mg/dL 70-110 H = 652) TEMP-35.7CHGB/HCT (H&H) - STAT [id number] 12:59:00 Test Item Value Reference Range Interpretation Comments HEMOGLOBIN (BEAKER) (test code = 8.1 g/dL 12.0-15.0 L 410) HEMATOCRIT (BEAKER) (test code = 24.0 % 36.0-45.0 L 411) TEMP-35.7CBLOOD GAS, [id number] 11:41:00 Test Item Value Reference Range Interpretation Comments PH ARTERIAL (BEAKER) (test code = 7.35 7.35-7.45 383) PCO2 ARTERIAL (BEAKER) (test code 35 mmHg 35-45 = 384) PO2 ARTERIAL (BEAKER) (test code 200 mmHg 80-90 H = 385) O2 SATURATION ARTERIAL (BEAKER) 99.3 % 96.0-97.0 H (test code = 386) HCO3 ARTERIAL (BEAKER) (test code 19 mmol/L 21-29 L = 388) BASE EXCESS ARTERIAL (BEAKER) -6.2 mmol/L -2.0-3.0 L (test code = 387) PATIENT TEMPERATURE (BEAKER) 35.6 C (test code = 1818) FIO2 (BEAKER) (test code = 1819) 60.0 % SODIUM NA-STAT [id number] 11:41:00 Test Item Value Reference Range Interpretation Comments SODIUM (BEAKER) (test code = 381) 131 meq/L 136-145 L POTASSIUM-STAT [id number] 11:41:00 Test Item Value Reference Range Interpretation Comments POTASSIUM (BEAKER) (test code = 3.4 meq/L 3.6-5.5 L 379) GLUCOSE-STAT [id number] 11:41:00 Test Item Value Reference Range Interpretation Comments GLUCOSE RANDOM (BEAKER) (test code 176 mg/dL 70-110 H = 652) HGB/HCT (H&H) - STAT [id number] 11:41:00 Test Item Value Reference Range Interpretation Comments HEMOGLOBIN (BEAKER) (test code = 9.2 g/dL 12.0-15.0 L 410) HEMATOCRIT (BEAKER) (test code = 27.0 % 36.0-45.0 L 411) CALCIUM, [id number] 11:41:00 Test Item Value Reference Range Interpretation Comments CALCIUM IONIZED (BEAKER) (test 1.08 mmol/L 1.12-1.27 L code = 698) PH, BLOOD (BEAKER) (test code = 7.33 1810) pH, [id number] 11:38:00 Test Item Value Reference Range Interpretation Comments pH, Arterial (test code = 2744-1) 7.35 7.35-7.45 Lab Interpretation (test code = Normal 84373-0) [facility] Diego[facility], [id number] 11:38:00 Test Item Value Reference Range Interpretation Comments PH ARTERIAL (BEAKER) (test code = 383) 7.35 7.35-7.45 POTASSIUM-STAT [id number] 09:51:00 Test Item Value Reference Range Interpretation Comments POTASSIUM (BEAKER) (test code = 2.3 meq/L 3.6-5.5 LL 379) TEMP-34.8CALCIUM, [id number] 09:50:00 Test Item Value Reference Range Interpretation Comments CALCIUM IONIZED (BEAKER) (test 1.03 mmol/L 1.12-1.27 L code = 698) PH, BLOOD (BEAKER) (test code = 7.40 1810) BLOOD GAS, [id number] 09:49:00 Test Item Value Reference Range Interpretation Comments PH ARTERIAL (BEAKER) (test code = 7.43 7.35-7.45 383) PCO2 ARTERIAL (BEAKER) (test code 34 mmHg 35-45 L = 384) PO2 ARTERIAL (BEAKER) (test code 149 mmHg 80-90 H = 385) O2 SATURATION ARTERIAL (BEAKER) 99.1 % 96.0-97.0 H (test code = 386) HCO3 ARTERIAL (BEAKER) (test code 23 mmol/L 21-29 = 388) BASE EXCESS ARTERIAL (BEAKER) -1.8 mmol/L -2.0-3.0 (test code = 387) PATIENT TEMPERATURE (BEAKER) 34.8 C (test code = 1818) FIO2 (BEAKER) (test code = 1819) 60.0 % TEMP-34.8SODIUM NA-STAT [id number] 09:49:00 Test Item Value Reference Range Interpretation Comments SODIUM (BEAKER) (test code = 381) 130 meq/L 136-145 L TEMP-34.8GLUCOSE-STAT [id number] 09:49:00 Test Item Value Reference Range Interpretation Comments GLUCOSE RANDOM (BEAKER) (test code 119 mg/dL 70-110 H = 652) TEMP-34.8HGB/HCT (H&H) - STAT [id number] 09:49:00 Test Item Value Reference Range Interpretation Comments HEMOGLOBIN (BEAKER) (test code = 11.6 g/dL 12.0-15.0 L 410) HEMATOCRIT (BEAKER) (test code = 34.0 % 36.0-45.0 L 411) TEMP-34.8ANESTHESIA CSE [id number] 08:35:46SaNelson cobian MD - 01/30/2020 8:35 AM CDTCSE BlockPatient location during procedure: ORStart time: 01/30/2020 8:07 AMEnd time: 01/30/2020 8:13 AM Procedure Indication: procedure for pain, at surgeon's request and post-op pain managementStaffingAnesthesiologist: Nelson Moore MDPerformed: personally Preanesthetic ChecklistCompleted: patient identified, pre-op evaluation, timeout performed, IV checked, risks and benefits discussed, monitors and equipment checked, anesthesia consent given, prep site dry prior to draping and maximum sterile barriers were used: cap, mask, sterile gown, norma rile gloves, and large sterile sheetPrepPrep: BetadineProcedures: sterile gloves, surgical mask, surgical hat, sterile technique and prep and sterile drape appliedCSE BlockPatient position: sittingPatient monitoring: EKG, HR, BP and MxI9Xznjpkvl: midlinelandmark technique and landmark techniqueInjection technique: CHARISSE salineNo pictures availableRegion: lumbarLevel: 3-4Spinal NeedleNeedle type: PencanNeedle gauge: 25 GEpidural needle length (in): 12.7cm.Introducer usedEpidural NeedleNeedle type: Tuohy Needle gauge: 17 GNeedle length 2: 8.9cm.CatheterCatheter type: end holeCatheter size: 19 GAssessme ntEvents: intrathecal medication injection (0.15mg duramorph given )injection not painful, no injection resistance, no paresthesia, no cerebrospinal fluid, no intravascular injection, no epidural bloodreturn and no barbotagepatient tolerated the procedure well, patient had no immediate complications and patient had adequate level of anesthesia and negative Allis clamp testChildren[facility] Hospital of San DiegoType and screen, [id number] 08:04:00 Test Item Value Reference Range Interpretation Comments ABO/RH AUTOMATED (BEAKER) (test A POSITIVE code = 2260) Ab Scrn (test code = 890-4) NEGATIVE [facility] DiegoABORH, [id number] 07:52:00 Test Item Value Reference Range Interpretation Comments ABO Grouping (test code = 2588) A Rh Factor (test code = 2589) POS [facility] DiegoCBC W/PLT COUNT & AUTO [id number] 07:16:00 Test Item Value Reference Range Interpretation Comments WHITE BLOOD CELL COUNT (BEAKER) 7.1 K/ L 3.5-10.5 (test code = 775) RED BLOOD CELL COUNT (BEAKER) 3.98 M/ L 3.93-5.22 (test code = 761) HEMOGLOBIN (BEAKER) (test code = 12.4 GM/DL 11.2-15.7 410) HEMATOCRIT (BEAKER) (test code = 36.6 % 34.1-44.9 411) MEAN CORPUSCULAR VOLUME (BEAKER) 92.0 fL 79.4-94.8 (test code = 753) MEAN CORPUSCULAR HEMOGLOBIN 31.2 pg 25.6-32.2 (BEAKER) (test code = 751) MEAN CORPUSCULAR HEMOGLOBIN CONC 33.9 GM/DL 32.2-35.5 (BEAKER) (test code = 752) RED CELL DISTRIBUTION WIDTH 15.7 % 11.7-14.4 H (BEAKER) (test code = 412) PLATELET COUNT (BEAKER) (test 196 K/CU MM 150-450 code = 756) MEAN PLATELET VOLUME (BEAKER) 9.8 fL 9.4-12.3 (test code = 754) NUCLEATED RED BLOOD CELLS 0 /100 WBC 0-0 (BEAKER) (test code = 413) NEUTROPHILS RELATIVE PERCENT 60 % (BEAKER) (test code = 429) LYMPHOCYTES RELATIVE PERCENT 28 % (BEAKER) (test code = 430) MONOCYTES RELATIVE PERCENT 9 % (BEAKER) (test code = 431) EOSINOPHILS RELATIVE PERCENT 1 % (BEAKER) (test code = 432) BASOPHILS RELATIVE PERCENT 1 % (BEAKER) (test code = 437) NEUTROPHILS ABSOLUTE COUNT 4.29 K/ L 1.56-6.13 (BEAKER) (test code = 670) LYMPHOCYTES ABSOLUTE COUNT 1.97 K/ L 1.18-3.74 (BEAKER) (test code = 414) MONOCYTES ABSOLUTE COUNT (BEAKER) 0.67 K/ L 0.24-0.36 H (test code = 415) EOSINOPHILS ABSOLUTE COUNT 0.10 K/ L 0.04-0.36 (BEAKER) (test code = 416) BASOPHILS ABSOLUTE COUNT (BEAKER) 0.07 K/ L 0.01-0.08 (test code = 417) IMMATURE GRANULOCYTES-RELATIVE 0 % 0-1 PERCENT (BEAKER) (test code = 2801) [id number] 14:45:00 Test Item Value Reference Range Interpretation Comments Case Report (test code Medical Cytology Report = 104) Case: [id number] Authorizing Provider: Dick Henriquez MD Collected: 01/18/2020 02:09 PM Ordering Location: [facility] PERIOPERATIVE Received: 01/18/2020 03:29 PM SERVICES Pathologist: Reinaldo Matta MD Specimen: Urine, Bladder Wash DIAGNOSIS (test code = [id number]) uZzEwMzNcZnRuYmpcdWMxIH lehxCtMXrxk1RhZ7DrBvQaB FxhbnNpXGRlZmxhbmcxMDMz FLZ0poKzMWNuHCimWMSuXXk rHm4alPZdnOgsSoRsWZUsm3 kalbBYyalfaXm4n2nxGTXaJ aQ3zZPjJUjaC5fzgxXrbHTc JAUlJUj3hZ93ACLslI8ttZE yTDeghuVuWtU4JXrhVKHsZn C6SQSmjXKqNHWnR3xvQCSlD AbpNRJcCWmrfHUfMCT8tDxp e6F7iIYxpYNthSikSzHhPtK cNCBDv1UyZYo8vNtpM5RgHO NgMqY2qRIuMPOpKSffIOYzY BUuzpY9kS86TIhbumC6xVBa c5Fdo47ox190bE3goMXnWHW 0RCWrNUGwnWJsSKYsZLT4YI QkrQBlT3c5CzEwdEYdH1P4L xTkbHQnN0I7KyAroNOqN3N1 NuXbwJObSHLsoCMkPv0fmTQ zbXSpoh5tap48DAU0t0HfkL zyTGO5DRO0BwKtCc0afBGrQ LDvFO4mRkMktLHyLGPaba88 zLksXIamjvCyaP5cWcAuPGC gqFObNRIiHO1hpPVxHNYenB 5ucmxjXHBnYnJkcmhlYWRcc OugahYbMz2lsVadVPD7MRjq W4oyqU2sGpW4DEvuZ4syxL7 mZAe0WBmjqFR3ELZnvZ3rUX 1dqxgbw3ssLyFdJJ9gdglis 2etEqKyVI8earg7b8qeSoYl CU4ktvvpm4alZxMgUDyjTMH xvwwaRFJrk0CsjdpbADToa2 OrI4VcxMzfS81pzFbuU11fC NJezPvzfQ6zxFqqkA2cXjMv ZnMyNFxxbFxwbGFpblxmMVx mczIwXGxhbmcxMDMzXGhpY2 taZaKkDWRybFenWBgqz9JwQ GYxXGZzMjAgVVJJTkUsIEJM LXJMRLYbT7KSHDyBDtRvF6f OK7LPHQ0XBBagwCpbZIKrOO KeUF2OA6UTBBIDLAPTAhDPZ YjNS01MTjGTXQkdOIW5t1wj dGYxXHNzdGUxODAwMFxhbnN nGWPtLcxlukzoXIChNEU4ap YbRWBvIXzoDLYrFZpkOy8ug YYiwXyhLiWzGZXas0snfdMR tdiraPw8k7xiIICyElO5gTQ tKSivL3bamlGtgJKyTIGxPQ x8wI57PJWtsG4jzAEsYQmyu vMxBcT4VBuhVATqDcV9OWKy cMDkIPQrX1eiBDNnVQkvQGT yZZjjyBZnTTG6nVrnm9J6yL VzaGVldHtcZjBcZnMyMiBOb 0XmMMi2mZyoP5UxHTZwYyT9 bHQgUGFyYWdyYXBoIEZvbnQ 1gZ08BLtnjpK6oEVpx0Brm8 9fm556uK2mkHJoHAP1RUEfN JIyeHDcEXDmVEI0XHHifKEa S3hcZKPaZF8wzgjgUIkdDPs lBCQxfVQ8AIJetYLbD0KlET NfURqqPYSwhry5MkZiSi5dw LJzaJtkGQzkh4zpb5nutYEd Zyi7CJRrAiJdEbakILsvn7R dh3ubGTGfgu3cUSP3mUUleA lui4G3bQFmQWVkmEWyFYQhP A6jwVQiTZHypP9xbjbhNVQf YnJkcmhlYWRccGdicmRyZm9 ycPcrPWZ6VUgcC1qnzR9zVx Y9ILecN3zeuT0nPOe1HXbfM ZEolBE9dnM3QGDabAObS8Wg zV1lQBXpLY0yhwi3d3guIAI 4CEhrZCJkYyP1gbK3CDNzmV BlVLMlkJucBDadz593MJQ6R pTsDTOwg0BrC4TgrDqjS29v xMgcU40jKYIwmHnrdK6guHt vzE9qIxUaWnIpWWeokQyfQQ 1xJVBiG3hjiQSwCZZaCYCnW 7gnNoShjC3eiIrtDFibdjRy TODlGtt3NZSkiSNkNIHkRou 4ATKmAMOaF65wmoerKVZ8wD 7au6nco3AwXKxtRJY6GNIay 16zLNcaxpP4OZcsPa7lRFNs Bno3OfggvBZwuR6= CPT Code(s) (test code e6qhqGVxPYPorVGzIzRwPQV = 3357) tZRBps7exIIAhdUQiRiWePk NcZnRuYmpcdWMxXGRlZmYwe 0fdz428hMTex1yzXAVwHdI0 mDKpPXWeeWJoN712t3fdh2p lzsHinZH2NGDmRVK0DKuwgo EhisG0FTmzlXXhPrB1TEorb oUfGYdnhjIrdgDsTnu9MQLs G497ARN8wKtuu4avYIM0OFY vISZmYrMhUz1wqXQtS936PL IgTJRREMVonTq7QUVgiwOyx qIemMZDl144R620y0qrRJUs fjYypQxGwlelb3hoW314EKK hcGVydzEyMjQwXHBhcGVyaD L4TBHeST7xcuwzOaQcOM0zv uzbAkIzHI0bvyz3EcXuPD7b cmdiNzIwXGhlYWRlcnkwXGZ xw1AjvtnoJU7oV8Cqz6P5wU 9maXRcZGVmdGFiNzIwXGZvc e0biQMhRZkdh3NpCLQ7lqQ6 fQSqyGFdAZIxJW06Iansl0R pDacxWEX2BCGehnAdq1Dlk0 umIkRepxFlH9rvD3WeJCGhW NIpSGPmAeXzflSan3Mfw4Qz pLLcuZr1v3ltYBOlOYAsfZn bj0gaWQK2SSNqR5G2cMGbr0 hnYTilGSRieTX8ekidFYdqY NOdwwX2tpouEVudXVZtvJX4 zqccRRzoSBHmIjA6kfqiTSo dRRMlKDZ2POxsc342RZI8UU xzYmtwYWdlXHBnbmNvbnRcc GduZGVjXHBsYWluXHBsYWlu XGYwXGZzMjRccWxccGxhaW5 lDxJrIyNxIHecKA9lRAWmN3 dwxDMdCHBlVMHvJ7ogIaIrg Q2ptHqbJCbbgaLhOFv6EJG1 XHBhcn0= CLINICAL DATA (test v2uieIDbYCCrnMEoAzJkNCT code = 3355) wHKWwt4fcUWLltVQmXrWxWr NcZnRuYmpcdWMxXGRlZmYwe 6zfw133tMPyl4xvXSTeQgF8 vPWyGLNirOSzN373WKZkWGl ty2sux6UsELLqpCVro2L3RX QwsyitqVb5gVbzL04ao5T2Z oeaM5obFKRdRFHqN1AhCD2e YGLqYbv6HZA7MCN6ABLqVEJ 6EPrjRTFpZVCuRwg7IYO4NQ xooaMrURosxyBouiDiSdj5K TVaL977KEA7tHjqy3iyAKO8 RQSuJYNbCgMqOl8fbTRkQ77 9OWLzNLACPDIufYa6XMUokl IokdAlhXQFx155G156w2mxQ QUhdpCsuAlWasuom3mlL380 XHBhcGVydzEyMjQwXHBhcGV bzUH4ZGZbPG3dewpjMeKtWX 1wkqsnXiKeZT3tjvx5HeKyP Z0ohjrkClNzMLfkYSAoflaa GGUcq1VdgyyxMO6qX2Abx7R 9wQ4rrEFjIRFxuSQrQgBbAR Lzyp5ufTHxZTfcy0WmEZG8r pS2iDBlwKLnVFLoAV31Sdvn n5TsKtpnFQI7GGIxpvDqe0C xs3vmPtOxnqRsI1foG0BtDB RxQRIxMMVoVsAuuyWgt4Fud 6KtqDBeuBv6m7xnCWQsEILq hJeyh8smBPQ8DMLkS7O2fAK ui4qyYGqiZQZphSH7arcpXS kvFYVrjfE3pugxYCsaSVEwe UL3helzGPqxDTPpVeS7myfq FRbyNIWkJGR1DLtrb688AOX 5MFxzYmtwYWdlXHBnbmNvbn RccGduZGVjXHBsYWluXHBsY UtpJPYvHAVpXnTigEs1VTBu MVxsdHJwYXJccWxccGxhaW5 oUdSfEqYeUUekJF1aMFHpT4 tywXAhSCMeXWQqU0wkYaAeh S0yrSojIZuzJeRdCrNqIFEf cPuaAUNhw4chdU7yp5btfZt olDGmF3ddOJoqtaVuyYSoEP WzQMWyKALgE0CyE0NiZIngq GggcGFzbWFjeXRvaWQgZGlm HaOsQG89lFM6kM0zZV5wsvV lw1BvwySpolYqvN7tSlHHSC SudPW8pUFnDC6ULQMwg2ugG HByZXNlbnRzIGZvciByZXN0 XIhgtniiFTTYWrMybPPmb2F alF0sQcAjpXRmrY== SPECIMEN SOURCE (test o4omnBEoMEJluZBuYiKfVYL code = 3377) rAIJpk8llETBfjZOqIiOfVd NcZnRuYmpcdWMxXGRlZmYwe 8ggt064oECxo3oqSKAzVqH7 fUTlJAWbnWFuQ011TRIsGWe vn9kwp1TeWNCczRWzv7I1RB EDtodmbBg4dLhhO83ol5N3S tpmG0ddOPRnUIDoG5WzXP6m JTLlMfc3SZU0ESV5OSIeIIZ lR2FdWS1pJNDcvVEzRZa4k6 nbmJgdQCXuNFY1v5rgHOxiz xKuPU5lss2lzIn4w9magiKa ZEErKQUhoIKYERKvU7EriJa sBc5cvMd6uJblGqcePZJ0Xi b9FS5zel15ysq1yQxgAQGnn cueMvN2YBjjPMDsjicxBAc5 MFxtYXJnbDcyMFxtYXJncjc yMFxtYXJndDcyMFxtYXJnYj teJDruGKFsWRX4WUcyi230S DU2YHwvl5els2labOSrWco8 HWGgOsPeNufjZBqdr8Dbb4h hGXUwuo6yXPN6xOQkmSwnd7 O8zULxWMXkcZTvqpEiMCPkA lH5SKfbUP2njf98IXGtPQT1 zn7trIXiyXxkiyDnyWAdRAb lB5YoPEIok367KLKfX9DrHM Ipw9G1rtLrWpObAALnrJD0p hP0CKRaNRs0lJYimsM2qyZn iPUhG4ezmY95SvXzgZShT6A euH48EvHpkMKsC6OuwD06Po FraTEyY3OdzI21RwZslQHkO KZctRFcHo4okJXbzDYpr4Cz yCUjTYeuY27bx155GOAdmvH gX7jjzRLgxxlgyKRutbfgPW vurmE5KCQfZFPaYWzhSIUpX GZzMjBcbGFuZzEwMzNcaGlj nEacJEqoEpOpYGWlJWkuR3q cZjFcZnMyMCBVUklORSwgQk cTIRLHIsZFCKINXQ3NNXObo n0= GROSS DESCRIPTION o0tclVKmXZYmlJTsRpSpRAD (test code = 3366) xTLNpg4ecQCLhdCNzApVwKf NcZnRuYmpcdWMxXGRlZmYwe 2wgi994hURjq8puYNHeCvH8 kCVzVXAfiYGqI065KXBcLNf hn1vkb3NaDFWckEBuw6U5QX OUlxddwJx1xVzvD56zk0E1Y ytxC8xuSFTgTZTaE7GpTA5t KFWuVos8GBH4HZK6KSTfEHZ eC6OxAI7aYHXbgABpNXb3c4 jctQvcNHHkCCC5v4ksBQxrf gYyGY0hup5cnGc4v0rwqfZx SFRqVCUsdUZWFGOyG5VthYn wTy4sgIe9hQnhWelqITJ9Xq b5GW3vbu83gsp4eUavHXOjo wjnSzX4KXmtSUBtmvgjOQl4 MFxtYXJnbDcyMFxtYXJncjc yMFxtYXJndDcyMFxtYXJnYj srVDmaCCJeMPV4IYqpe287C JD2NJtyx5qiw0wtoFZaTwo5 UYEnMtLaHhndLBdmm8Mzd2p kSRRcrs5pSPL6jGPsiTuiu8 V3aEWiXYDfvMBietRrLUJsW wW1UBkfSO1wvu03VBXtVQX8 fv4ufFFyhXhsoxVwxLLsWPa hY1BwSSYxm018JEXeF8QoXO Nys7W1gwXrEsBeEEHmpSJ9u qF2GANsVQo4tQQqtsZ3htQt tVVfN8uyxC10JxWppUBsU6L fwE51CwMegYAxO0MixV61Pi MzeDVhO9QpfG33TfEdcIHxD QGxqAZcAt5egDTfdBMns2Mw aOOcYYhlE85xl078LIDxlhL vD3sduNVqvpxffWWvnkpjJR zczfA7NMWoWEOuCZjhKJWgU GZzMjJcbGFuZzEwMzNcaGlj tMrgXNwrPrSbJEAwSJiaF8f mAoAzXeVoCpO4HENqtXHoW1 7gd4CwPSDsURHcwSjcKuI9Y YG7wX3iaZqyt4msEETkG31b bGVjdGVkOiAwNzAxMjBccGF iZANfQ4IworIhYqEsMhFjMk BccGFyfQ== STATEMENT OF ADEQUACY Satisfactory (test code = 2757) Gross assessment was [facility] performed at ([facility], code = 2777) Department of Pathology, [address] [place] [address], Technical component [facility] was performed at ([facility], code = 2778) Department of Pathology, [address] [place] [address], Professional component [facility] was performed at ([facility], code = 2779) Department of Pathology, [address] [place] [address], [facility]2020-[facility]-02 14:45:00Medical Cytology Report Case: [id number] Aut horizing Provider: Dick Henriquez MD Collected: 01/18/2020 02:09 PM Ordering Location: [facility] Received: 01/18/2020 03:29 PM SERVICES Pathologist: Reinaldo Matta MD Specimen: Urine, Bladder Wash URINE, BLADDER WASHING (CYTOSPINS): - NEGATIVE FOR MALIGNANCY Signing Pathologist Direct Phone Line: [phone] lectronically signed by Reinaldo Matta MD on 01/19/2020 at 2:45 [id number] risk 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 whopresents for restaging TURBT prior to RCURINE, BLADDER MKXYCPV97 mls colorless fluid; 4 cytospinsColl ected: [id number]: [id number] [facility], Department of Pathology, [address] [place] [address], [facility], [facility] of [facility]ology, [address] [place] [address], [facility], Department of Pathology, [address] [place] [address], OLSVRW [id number] 13:07:00Surgical Pathology Report Case: [id number] Authorizing Provider: Dick Henriquez MD Collected: 01/18/2020 02:31 PM Ordering Location: [facility] Received: 01/18/2020 03:17 PM SERVICES Pathologist: Reinaldo Matta MD Specimens: A) -Bladder Biopsy, Right Wall, right posterior lateral wall for biopsy B) - Bladder Biopsy, 12'o clock bladder neck for bladder biopsy C) - Bladder Biopsy, 3'o clock bladder neck for bladder biopsy D) - Bladder Biopsy, 6' o clock bladder neck for bladder biopsy E) - Bladder Biopsy, 9' o clock bladder neck for bladder biopsy A. URINARY BLADDER, RIGHT POSTERIOR LATERAL WALL, BIOPSY: - PREVIOUS RESECTION SITE CHANGES, NEGATIVE FOR MALIGNANCYB. URINARY BLADDER, 12 O'CLOCK BLADDER NECK, BIOPSY: - NONKERATINIZING SQUAMOUS MUCOSA, NEGATIVE FOR MALIGNANCYC. URINARY BLADDER, 3 O'CLOCK BLADDER NECK, BIOPSY, - UROTHELIAL CARCINOMA, HIGH GRADE (WHO GRADE 3), INVASIVE INTO LAMINA PROPRIA. - MUCOSA AND MUSCULARIS PROPRIA ARE ABSENTD. URINARY BLADDER, 6 O'CLOCK BLADDER NECK, BIOPSY: - SQUAMOUS METAPLASIA, NEGATIVE FOR MALIGNANCYE. URINARY BLADDER, 9 O'CLOCK BLADDER NECK, BIOPSY: - SQUAMOUS METAPLASIA, NEGATIVE FOR MALIGNANCY Signing Pathologist DirectPhone Line: [phone] signed by Reinaldo Matta MD on 01/19/2020 at 1:07 PM90% of this tumor shows the plasmacytoid morphology as documented on a previous biopsy.10466 x 5 Malignant neoplasm of overlapping sites of bladder A. Bladder biopsy, right wallB. Bladder biopsyC. Bladder biopsyB. Bladder biopsyE. Bladder biopsyA. Received in formalin labeled with the patient's name, accession number and "right posterior lateral bladder wall" is a 1.5 x 0.7 x 0.3 cm aggregate oftan-pink soft tissue which is submitted in toto in A1.B. Received in formalin labeled with the patient's name, accession number and "bladder biopsy 12:00 bladder neck" is a 0.2 x 0.2 x 0.1 cm lam-white soft tissue which is filtered and submitted in toto in B1.C. Received in formalin labeled with the patient's name, accession number and "bladder biopsy 3:00 bladder neck" is a 0.2 x 0.1 x 0.1 cm lam-white soft tissue which is submitted in toto in C1.D. Received in formalin labeled with the patient's name, accession number and "bladder biopsy 6:00 bladder neck" is a 0.1 x 0.1 x 0.1 cm buck soft tissue fragment which is submitted in toto in D1.E. Received in formalin labeled the patient's name, ac cession number and "bladder biopsy 9:00 bladder neck" is a 0.1 x 0.1 by less than 0.1 cm lam-white soft tissue which is submitted in toto in A1.JONATHAN Santizo (ASCP)cmPerformed.ECG 12 [id number] 06:15:08Interface, External Ris In - 01/19/2020 6:15 AM CDTVentricular Rate 52 BPMAtrial Rate 52 BPMP-R Interval 154 msQRS Duration 106 msQ-T Interval 510 msQTC Calculation(Paula) 474 msP Sutton 70 degreesR Sutton 47 degreesT Sutton 26 degreesSinus bradycardiaOtherwise normal ECGConfirmed by MD SJ, SAIMA Grant ([id number]) on 01/19/2020 6:15:07 [facility] 17:00:00 Test Item Value Reference Range Interpretation Comments Cytology (test code = See Separate Report 2629) [facility] [id number] 17:00:00 Test Item Value Reference Range Interpretation Comments CYTOLOGY RESULT POINTER See Separate Report (FAINA) (test code = 2629) ANG, TUNNEL CATH CENTRAL INS W/PORT [id number] 15:29:00Reason for Exam:- >malignant neoplasm of overlapping sites of bladderFINAL REPORT PROCEDURE: Venous port placement Procedural PersonnelAttending ysician(s): Madalyn Nicole MDFekirk physician(s): Katy Rubio physician(s): NonePrimary Neuropsychology Medical Consultant(s): Neema Samano MD Pre-procedure diagnosis: Bladder cancerPost-procedure diagnosis: SameIndication: Administration of chemotherapyAdditional clinical history: None Complications: No immediate complications. IMPRESSION: Insertion of right-sided power- injectable single-lumen tunneled chest port, with catheter tip in the expected location of the cavoatrial junction. Plan: The port may be usedimmediately. PROCEDURE SUMMARY:- Venous access with ultrasound guidance- Tunneled port insertion under fluoroscopic guidance- Additional procedure(s): None Pre-procedureConsent: Informed consent for the procedure including risks, benefitsand alternatives was obtained and time-out was performed prior to the procedure.Preparation (MIPS): The site was prepared and draped using all elements of maximal sterile barrier technique including sterile gloves, sterile gown, cap, mask, large sterile sheet, sterile ultrasound probe cover, hand hygiene and cutaneous antisepsis with 2% chlorhexidine. Medical reason for site preparation exception (MIPS): Not applicable Anesthesia/sedationLevel of anesthesia/sedation: Moderate sedation (conscious sedation) 1mg Versed, 50mcg FentanylAnesthesia/sedation administered by: Independent trained observer under attending supervision with continuous monitoring of the patient\\X2019\\s level of consciousness and physiologic statusTotal intra-service sedation time (minutes): 30 AccessLocal anesthesia was administered. The vessel was sonographically evaluated and determined to be patent. Real time ultrasound was used to visualize needle entry into the vessel and a permanent image was stored.Vein accessed: Internal jugular veinAccess technique: Micropuncture set with 21 gauge needle Port placementAn incision was made at the upper chest, a pocket was created, and the catheter was tunneled subcutaneously to thevenous access site and trimmed to appropriate length. The port was inserted into the pocket and the catheter was advanced via a peel-away sheath into the vein under fluoroscopic guidance. The port was not sutured into the pocket. Catheter tip location was fluoroscopically verified and a permanent image was stored.Port placed: BardCatheter size (Gambian): 6Catheter flush: Heparin (100 units/mL) ClosureThe access site and incision were closed and sterile dressing(s) were applied.Access site closure technique: Tissue adhesiveIncision closure technique: Absorbable suture and tissue adhesivePatient discharged from procedure suite with device accessed: No ContrastContrast agent: NoneContrast volume (mL):N/A Radiation DoseFluoroscopy time (minutes): 0.3 Reference air kerma (mGy): 2.6 Additional DetailsAdditional description of procedure: NoneEquipment details: NoneSpecimens removed: NoneEstimated blood loss (mL): Less than 10Standardized report: SIR_Port_v3 AttestationSigner name: Madalyn Hatfield attestthat I was present for the entire procedure. I reviewed the stored images and agree with the report as written. Signed: Madalyn Nicole MDReport Verified Date/Time: 11/01/2019 15:29:20 Reading Location: [facility] B1 P048 Angio Body Reading Room IR Port-a-Cath [id number] 15:29:00Interface, External Ris In - 11/01/2019 3:31 PM CDTFINAL REPORT PROCEDURE: Venous port placement Procedural PersonnelAttending physician(s): Madalyn Nicole MDFellbetsy physician(s): Katy Rubio physician(s): NonePrimary Neuropsychology Medical Consultant(s): Neema Samano MD Pre-procedure diagnosis: Bladder cancerPost-procedure diagnosis: SameIndication: Administration of chemotherapyAdditional clinical history: None Complications: No immediate complications. IMPRESSION: Insertion of right-sided power-injectable single-lumen tunneled chest port, with catheter tip in the expected location ofthe cavoatrial junction. Plan: The port may be used immediately. PROCEDURE SUMMARY:- Venous access with ultrasound guidance- Tunneled port insertion under fluoroscopic guidance- Additional procedure(s): None Pre-procedureConsent: Informedconsent for the procedure including risks, benefits and alternatives was obtained and time-out was pe rformed prior to the procedure.Preparation (MIPS): The site was prepared and draped using all elements of maximal sterile barrier technique including sterile gloves, sterile gown, cap, mask, large sterile sheet, sterile ultrasound probe cover, hand hygiene and cutaneous antisepsis with 2% chlorhexidine. Medical reason for site preparation exception (MIPS): Not applicable Anesthesia/sedationLevel of anesthesia/sedation: Moderate sedation (conscious sedation) 1mg Versed, 50mcg FentanylAnesthesia/sedation administered by: Independent trained observer under attending supervision with continuous monitoring of the patient\\X2019\\s level of consciousness and physiologic statusTotal intra-service sedation time (minutes): 30 AccessLocal anesthesia was administered. The vessel was sonographically evaluated and determined to be patent. Real time ultrasound was used to visualize needle entry into the vessel and a permanent image was stored.Vein accessed: Internal jugular veinAccess technique: Micropuncture set with 21 gauge needle Port placementAn incision was made at the upper chest, a pocket was created,and the catheter was tunneled subcutaneously to the venous access site and trimmed to appropriate length. The port was inserted into the pocket and the catheter was advanced via a peel-away sheath intothe vein under fluoroscopic guidance. The port was not sutured into the pocket. Catheter tip location was fluoroscopically verified and a permanent image was stored.Port placed: BardCatheter size (Gambian): 6Catheter flush: Heparin (100 units/mL) ClosureThe access site and incision were closed and steri le dressing(s) were applied.Access site closure technique: Tissue adhesiveIncision closure technique: Absorbable suture and tissue adhesivePatient discharged from procedure suite with device accessed: No ContrastContrast agent: NoneContrast volume (mL): N/A Radiation DoseFluoroscopy time (minutes): 0.3 Reference air kerma (mGy): 2.6 Additional DetailsAdditional description of procedure: NoneEquipment details: NoneSpecimens removed: NoneEstimated blood loss (mL): Less than 10Standardized report: SIR_Port_v3 AttestationSigner name: Lauriemohsen Alysia attest that I was present for the entire procedure. I reviewed the stored images and agree with the report as written. Signed: Madalyn Nicole MDReport VerifiedDate/Time: 11/01/2019 15:29:20 Reading Location: [place] [address] Angio Body Reading [facility]00 Test Item Value Reference Range Interpretation Comments PTT (test code = 21749-9) 29.5 22.5- 36.0 seconds Lab Interpretation (test code = Normal 90262-1) [facility] 10:22:00 Test Item Value Reference Range Interpretation Comments PARTIAL THROMBOPLASTIN TIME 29.5 seconds 22.5-36.0 (BEAKER) (test code = 760) Prothrombin time/[id number] 10:21:00 Test Item Value Reference Range Interpretation Comments Protime (test code = 13.5 11.9- 14.2 5902-2) seconds INR (test code = 1.1 <=5.9 6301-6) BALBIR (test code = BALBIR) Effective 12/15/2018: PT Reference Range ChangeNew: 11.9-14.2 Previous: 11.7-14.7 RECOMMENDED COUMADIN/WARFARIN INR THERAPY RANGESSTANDARD DOSE: 2.0-3.0 Includes: PROPHYLAXIS for venous thrombosis, systemic embolization; TREATMENT for venous thrombosis and/or pulmonary embolus.HIGH RISK: Target INR is 2.5-3.5 for patients wiht mechanical heart valves. Lab Interpretation Normal (test code = 12312-7) [facility] DiegoPROTHROMBIN TIME/[id number] 10:21:00 Test Item Value Reference Range Interpretation Comments PROTIME (BEAKER) (test code = 13.5 seconds 11.9-14.2 759) INR (BEAKER) (test code = 370) 1.1 <=5.9 Effective 12/15/2018: PT Reference Range ChangeNew: 11.9-14.2 Previous: 11.7- 14.7RECOMMENDED COUMADIN/WARFARIN INR THERAPY RANGESSTANDARD DOSE: 2.0-3.0 Includes: PROPHYLAXIS for venous thrombosis, systemic embolization; TREATMENT for venous thrombosis and/or pulmonary embolus.HIGH RISK: Target INR is2.5-3.5 for patients wiht mechanical heart valves.CBC W/PLT COUNT & AUTO [id number] 09:53:00 Test Item Value Reference Range Interpretation Comments WHITE BLOOD CELL COUNT (BEAKER) 6.5 K/ L 3.5-10.5 (test code = 775) RED BLOOD CELL COUNT (BEAKER) 5.05 M/ L 3.93-5.22 (test code = 761) HEMOGLOBIN (BEAKER) (test code = 14.8 GM/DL 11.2-15.7 410) HEMATOCRIT (BEAKER) (test code = 43.8 % 34.1-44.9 411) MEAN CORPUSCULAR VOLUME (BEAKER) 86.7 fL 79.4-94.8 (test code = 753) MEAN CORPUSCULAR HEMOGLOBIN 29.3 pg 25.6-32.2 (BEAKER) (test code = 751) MEAN CORPUSCULAR HEMOGLOBIN CONC 33.8 GM/DL 32.2-35.5 (BEAKER) (test code = 752) RED CELL DISTRIBUTION WIDTH 14.6 % 11.7-14.4 H (BEAKER) (test code = 412) PLATELET COUNT (BEAKER) (test 218 K/CU MM 150-450 code = 756) MEAN PLATELET VOLUME (BEAKER) 10.3 fL 9.4-12.3 (test code = 754) NUCLEATED RED BLOOD CELLS 0 /100 WBC 0-0 (BEAKER) (test code = 413) NEUTROPHILS RELATIVE PERCENT 54 % (BEAKER) (test code = 429) LYMPHOCYTES RELATIVE PERCENT 35 % (BEAKER) (test code = 430) MONOCYTES RELATIVE PERCENT 9 % (BEAKER) (test code = 431) EOSINOPHILS RELATIVE PERCENT 2 % (BEAKER) (test code = 432) BASOPHILS RELATIVE PERCENT 1 % (BEAKER) (test code = 437) NEUTROPHILS ABSOLUTE COUNT 3.50 K/ L 1.56-6.13 (BEAKER) (test code = 670) LYMPHOCYTES ABSOLUTE COUNT 2.24 K/ L 1.18-3.74 (BEAKER) (test code = 414) MONOCYTES ABSOLUTE COUNT (BEAKER) 0.56 K/ L 0.24-0.36 H (test code = 415) EOSINOPHILS ABSOLUTE COUNT 0.10 K/ L 0.04-0.36 (BEAKER) (test code = 416) BASOPHILS ABSOLUTE COUNT (BEAKER) 0.04 K/ L 0.01-0.08 (test code = 417) IMMATURE GRANULOCYTES-RELATIVE 0 % 0-1 PERCENT (BEAKER) (test code = 2801) CT, CHEST, WITH IV [id number] 13:26:00FINAL REPORT CT Chest with contrast History:Malignant neoplasm of bladder Comp arison:none Technique: serial axial imaging was performed following up to 100cc of non ionic iodinated intravenous contrast as per departmental protocol. Multiplanar images are reconstructed and reviewed when indicated. This CT examination is performed using one or more of the following dose reduction techniques: Automated exposure control, adjustment of the mA and /or kV according to patient size, and/or use of iterative reconstruction technique. Findings:No mediastinal or hilar lymphadenopathy. Normal size heart. No pericardial effusion. No thoracic aortic aneurysm or dissection. No central pulmonary arterial filling defect. Patent central airways. No pleural effusion or pneumothorax. Mild biapical lung scarring. The lungs are otherwise clear. No significant findings in the partially imaged abdomen. No aggressive osseous lesion. Impression:No evidence of metastatic disease inthe chest. Signed: Davide Delatorre MDReport Verified Date/Time: 10/27/2019 13:26:23 Reading Location: [address] Consult Reading Room CT chest with IV contrast 2019-10-27 13:26:00Interface, External Ris In - 10/27/2019 1:[address] Chest with contrast History:Malignant neoplasm of bladder Comparison:none Technique: serial axial imaging was performed following up to 100cc of non ionic iodinated intravenous contrast as per departmental protocol. Multiplanar images are reconstructed and reviewed when indicated. This CT examination is performed using one or more of the following dose reduction techniques: Automated exposure control, adjustment of the mA and /or kV according to patient size, and/or use of iterative reconstruction technique. Findings:No mediastinal or hilar lymphadenopathy. Normal size heart. No pericardial effusion. No thoracic aortic aneurysm or dissection. No central pulmonary arterial filling defect. Patent central airways. No pleural effusion or pneumothorax. Mild biapical lung scarring. The lungs are otherwise clear. No significant findings in the partially imaged abdomen. No aggressive osseous lesion. Impression:No evidence of metastatic disease in the chest. Signed: Davide Delatorre MDReport Verified Date/Time: 10/27/2019 13:26:23 Reading Location: [facility] C013X Ortho Consult Reading Room [facility] [id number] 14:52:00Surgical Pathology Report Case: [id number] Authorizing Provider: Dick Henriquez MD Collected: 10/14/2019 09:26 AM Ordering Location: [facility] Received: 10/14/2019 11:24 AM SERVICES Pathologist: Reinaldo Matta MD Specimens: A) -Bladder Biopsy, Right Wall, right posterior lateral wall blue light positive B) - Bladder Biopsy, Right Wall, right lateral wall C) - Bladder Biopsy, Right Wall, right anterior wall, blue light positive D) - Bladder Biopsy, dome, blue light positive E) - Bladder Biopsy, posterior midline, blue light negative F) - Bladder Biopsy, Left Wall, left lateral wall, blue light negative G) - Bladder Biopsy, Tr igone, trigone, blue light negative H) - Bladder Biopsy, Right Wall, right posterior wall, previous resection site A. URINARY BLADDER, RIGHT POSTERIOR LATERAL WALL, BIOPSY: - UROTHELIAL CARCINOMA, HIGH GRADE (WHO GRADE 3), INVASIVE INTO LAMINA PROPRIA- NEGATIVE FOR LYMPH VASCULAR INVASION - MUSCULARIS PROPRIA IS NOT PRESENTB. URINARY BLADDER, RIGHT LATERAL WALL, BIOPSY: - UROTHELIAL CARCINOMA, HIGH GRADE (WHO GRADE 3), INVASIVE INTO LAMINA PROPRIA - NEGATIVE FOR LYMPH VASCULAR INVASION - MUSCULARIS PROPRIA IS PRESENT AND NOT INVOLVED BY TUMORC. URINARY BLADDER, RIGHT ANTERIOR WALL, BIOPSY: - UROTHELIAL CARCINOMA, HIGH GRADE (WHO GRADE 3), INVASIVE INTO LAMINA PROPRIA - NEGATIVE FOR LYMPH VASCULAR INVASION - MUSCULARIS PROPRIA IS PRESENT AND NOT INVOLVED BY TUMORD. URINARY BLADDER, DOME, BIOPSY: - NO PATHOLOGIC DIAGNOSIS - MUSCULARIS PROPRIA ABSENTE. URINARY BLADDER, POSTERIOR MIDLINE WALL, BIOPSY: - NO PATHOLOGIC DIAGNOSIS - MUSCULARIS PROPRIA PRESENTF. URINARY BLADDER, LEFT LATERAL WALL, BIOPSY: - NO PATHOLOGIC DIAGNOSIS - MUSCULARIS PROPRIA PRESENTG. URINARY BLADDER, TRIGONE, BIOPSY: - MILD CHRONIC INFLAMMATION, NEGATIVE FOR DYSPLASIA OR CARCINOMA] - MUSCULARIS PROPRIA ABSENTH. URINARY BLADDER, RIGHT POSTERIOR WALL, PREVIOUS RESECTION SITE, TURBT: - UROTHELIAL CARCINOMA, HIGH GRADE (WHO GRADE 3), INVASIVE INTO MUSCULARIS PROPRIA - NEGATIVE FOR LYMPH VASCULAR INVASION - PRIOR RESECTION SITE CHANGE SEEN Signing Pathologist Direct Phone Line: [phone] signed byReinaldo Matta MD on 10/17/2019 at 2:52 PMThe tumor is 90% of the plasmacytoid type. No surface CIS is seen on any of the slides. It would be important in this case to consider the possibility of metastatic breast carcinoma which can mimic plasmacytoid variant of urothelial cancer, especially since there is no associated urothelial carcinoma in situ in this case. [id number] X 7, [id number] diagnosis: Malignant neoplasm of overlapping sites of bladder. A. Bladder biopsy, right wall; B. Blad juan f biopsy, right wall; C. Bladder biopsy, right wall; D. Bladder biopsy; E. Bladder biopsy; F. Bladder biopsy, left wall; G. Bladder biopsy, trigone; H. Bladder biopsy, right wallA. Received in formalin labeled with the patient's name, accession number and "right posterior lateral wall, bladder biopsy" are two buck-pink tissue fragments measuring up to 0.2 cm in greatest dimension which are filtered and submitted in toto in A1. B. Received in formalin labeled with the patient's name, accession number and "right lateral wall, bladder biopsy" is a 0.3 x 0.3 x 0.2 cm buck-pink tissue fragment which is filtered and submitted in toto in B1. C. Received in formalin labeled with the patient's name, accession number and "right anterior wall, bladder biopsy" are two buck-pink tissue fragments measuring up to 0.3 cm in greatest dimension which are filtered and submitted in toto in C1. D. Received in formalin labeled with the patient's name, accession number and "bladder dome biopsy" is a 0.2 x 0.1 x 0.1 cmtan-pink tissue fragment which is filtered and submitted in toto in D1. E. Received in formalin labeled with the patient's name, accession number and "posterior midline bladder biopsy" is a 0.2 x 0.2 x0.2 cm buck-pink tissue fragment which is filtered and submitted in toto in E1. F. Received in formalin labeled with the patient's name, accession number and "left lateral wall bladder biopsy" is a 0.2 x 0.2 x 0.1 cm buck-pink tissue fragment which is filtered and submitted in toto in F1. G. Received informalin labeled with the patient's name, accession number and "bladder biopsy trigone" are two buck-pink tissue fragments measuring up to 0.2 cm in greatest dimension which are filtered and submitted in toto in G1. H. Received in formalin labeled with the patient's name, accession number and "right posterior bladder wall biopsy" is a 2.4 x 1.1 x 0.3 cm aggregate of buck- pink rubbery tissue which is entirely submitted in H2. PA/pl Performed.RAD, CHEST, 2 [id number] 09:24:00Reason for Exam:->C67.8FINAL REPORT CHEST RADIOGRAPH - 2 VIEWS INDICATION: C67.8, malignant neoplasm of bladder at overlapping sites. COMPARISON: None FINDINGS:LINES: None LUNGS: The lungs are well inflated. Nodular opacities project over the right lower lung, which appear high density. No evidence ofpneumonia or pulmonary edema. PLEURA: No evidence of pleural effusion or pneumothorax. HEART AND MEDIASTINUM: The cardiomediastinal silhouette is unremarkable. Atherosclerotic calcifications of the aortic arch. BONES: Mild loss of vertebral body height in the lower thoracic spine. Diffuse osteopenia. UPPER ABDOMEN: No evidence of free intraperitoneal air. IMPRESSION:Right lower lung nodular opacities may represent superimposed vessels or granulomas. However in the setting of malignancy, a follow-up chest CT is suggested for further evaluation. Diffuse osteopenia. Mild loss of vertebral body height in the lower thoracic spine, age indeterminate, suggest clinical correlation. Signed: Bina Drake MDReport Verified Date/Time: 10/13/2019 09:24:28 Reading Location: [facility] Reading Room [address] [place] [address] XR Chest 2 [id number] 09:24:00Interface, External Ris In - 10/13/2019 9:27 AM CDTFINAL REPORT CHEST RADIOGRAPH - 2 VIEWS INDICATION: C67.8, malignant neoplasm of bladder at overlapping sites. COMPARISON: None FINDINGS:LINES: None LUNGS: The lungs are well inflated. Nodular opacities project over the right lower lung, which appear high density. No evidence of pneumonia or pulmonary edema. PLEURA: No evidence of pleural effusion or pneumothorax. HEART AND MEDIASTINUM: The cardiomediastinal silhouette is unremarkable. Atherosclerotic calcifications of the aortic arch. BONES: Mild loss of vertebral body height in the lower thoracic spine. Diffuse osteopenia. UPPER ABDOMEN: No evidence of free intraperitoneal air. IMPRESSION:Right lower lung nodular opacities may represent superimposed vessels or granulomas. However in the setting of malignancy, a follow-up chest CT is suggested for further evaluation.Diffuse osteopenia. Mild loss of vertebral body height in the lower thoracic spine, age indeterminate, suggest clinical correlation. Signed: Bina Drake MDReport Verified Date/Time: 10/13/2019 09:24:28 Reading Location: [facility] Reading Room [address] [place] [address] [facility] [id number] 16:53:00CT UROGRAMFINAL REPORT CT of the abdomen and pelvis, with and without contrast Clinical History: C67.8 Technique: CT of the abdomen and pelvis is performed before and after intravenous contrast administration. This exam was performed according to our departmental dose optimization program which includes automated exposure control, adjustment of the mA and/or kV according to patient's size and/or use of iterative reconstructive technique. Comparison Film: None Punctate nonobstructive stone in right kidney.Discussion: Visualized lower thorax is unremarkable. No liver lesion is identified. There is no biliary ductal dilatation, gallbladder is unremarkable. Spleen, pancreas, adrenal glands are unremarkable. Kidneys demonstrate no hydronephrosis, or mass. There is a punctate nonobstructive stone in the lower pole of the right kidney. There is no filling defect in the opacified portion of the renal collecting system. No evidence of bowel obstruction or abnormal bowel wall thickening. Normal appendix. In the pelvis, there is mild wall thickening of the right aspect of the bladder, but no discrete mass is seen. Uterus and adnexa are unremarkable. Osseous structures demonstrate degenerative changes. No suspicious bony lesion is identified. No adenopathy, or ascites. Impression: Mildright-sided bladder wall thickening. No adenopathy or distant metastasis is identified. Signed: Beto Bianchiort Verified Date/Time: 10/12/2019 16:53:35 Reading Location: [address] Ortho Consult Reading Room CT abdomen/pelvis without & with IV contrast 2019-10-12 16:53:00Interface, External Ris In - 10/12/2019 4:[address] of the abdomen and pelvis, with and without contrast Clinical History: C67.8 Technique: CT of the abdomen and pelvis is performed before and after intravenous contrast administration. This exam was performed according to our departmental dose optimization program which includes automated exposure control, adjustment of the mA and/or kV according to patient's size and/or use of iterative reconstructive technique. Comparison Film: None Punctate nonobstructive stone in right kidney.Discussion: Visualized lower thorax is unremarkable. No liver lesion is identified. There is no biliary ductal dilatation, gallbladder is unremarkable. Spleen, pancreas, adrenal glands are unremarkable. Kidneys demonstrate no hydronephrosis, or mass. There is a punctate nonobstructive stone in the lower pole of the right kidney. There is no filling defect in the opacified portion of the renal collecting system. No evidence ofbowel obstruction or abnormal bowel wall thickening. Normal appendix. In the pelvis, there is mild wall thickening of the right aspect of the bladder, but no discrete mass is seen. Uterus and adnexa are unremarkable. Osseous structures demonstrate degenerative changes. No suspicious bony lesion is identified. No adenopathy, or ascites. Impression: Mild right- sided bladder wall thickening. No adenopathy or distant metastasis is identified. Signed: Beto Bianchi Verified Date/Time: 10/12/2019 16:53:35 Reading Location: [facility] C0[facility] Ortho Consult Reading Room [facility]
--- OUTSIDE RECORDS SUMMARY | 2020-03-26 09:22 | XMS REPORT | Summary of Care ---
:1945 Author Organization [facility] [place] [address] Care Team Providers Name Role Phone Lucy Kuo MD Primary Care Provider Reason for Referral Radiology Services (Emergency) Status Reason Specialty Diagnoses / Procedures Referred By Lucy ontact Referred To Contact Pending Radiology Diagnoses Lumbar spine pain Fall, initial encounter Giancarlo Doherty MD [facility] General Imaging Procedures XR LUMBAR SPINE 2 VIEWS AP AND LAT [address] [facility] [address] [place], [place] [address] [place], [place] Phone: [phone] Fax: Reason for Visit Reason Comments Low Back Pain w/sciatica Consult, Test & Treat (Routine) Status Reason Specialty Diagnoses / Referred By Referred To Procedures Contact Contact Patient Physical Diagnoses M54.32 (ICD-10-CM) - Sciatica of left side/consultation/ no Covid symptoms Luther Trotter Paul, Responsible Medicine and Procedures SPINE NEW PATIENT MD [facility] [address] [facility] [address] 7th Floor, [place], [place] [address] [address] [place], [place] Phone: [phone] Phone: Encounter Details Date Type Department Care Team Description 01/06/2020 Office Visit [facility] Paily, Giancarlo, M D Low Back Pain Medicine Physical [address] (w/sciatica) Medicine & [address] [place], [place] [address] [facility]. [address] [address], [address] [phone] [place] [address] [phone] Allergies Active Allergy Reactions Severity Noted Date Comments Sulfa Antibiotics Swelling High 10/04/2019 documented as of this encounter (statuses as of 01/06/2020) Medications Medication Sig Dispensed Refills Start Date End Date Status triamterene-hydrochlor Take 1 Cap by 0 Active othiazide (DYAZIDE) mouth every 37.5-25 MG per capsule morning. potassium chloride Take 10 mEq by 0 Active (MICRO-K) 10 MEQ mouth daily. capsule levothyroxine Take 125 mcg by 0 Active (SYNTHROID) 125 MCG mouth daily. tablet gabapentin (NEURONTIN) Take 500 mg by 0 Active 300 MG capsule mouth daily. atorvastatin (LIPITOR) Take 20 mg by 0 Active 20 MG tablet mouth daily. lamoTRIgine 50 MG TBDP Take 50 mg by 0 Active mouth two times daily. baclofen (LIORESAL) 10 Take 10 mg by 0 Active MG tablet mouth two times daily. Multiple Take by mouth 0 Activ e Vitamins-Minerals daily. (MULTIVITAMIN ADULT OR) B Complex Vitamins (B Take by mouth 0 Active COMPLEX 1 OR) daily. Calcium Take by mouth 0 Activ e Citrate-Vitamin D two times daily. (CALCIUM CITRATE + D OR) Starr-3 Fatty Acids Take by mouth 0 Active (FISH OIL) 1200 MG daily. CAPS Lactobacillus Take by mouth 0 A ctive (PROBIOTIC ACIDOPHILUS daily. OR) Calcium Polycarbophil Take by mouth 3 0 Active (FIBER-CAPS OR) times daily. BIOTIN 5000 OR Take by mouth 0 Active daily. L-THEANINE OR Take 200 mg by 0 A ctive mouth daily. Ascorbic Acid (VITAMIN Take by mouth 0 Active C) 500 MG CAPS daily. Turmeric Curcumin 500 Take by mouth. 0 Active MG CAPS acetaminophen-codeine Take 1 Tab by 0 Active (TYLENOL #3) 300-30 MG mouth every 8 per tablet hours. Magnesium 400 MG TABS Take by mouth. 0 Active Lidocaine 0.5 % GEL Apply 0 Active topically. hydrOXYzine (ATARAX) Take 1 Tab by 90 Tab 1 01/04/2020 Active 50 MG tablet mouth 3 times daily as needed for Anxiety. Desvenlafaxine Take 25 mg by 30 Tab 1 01/04/2020 Active Succinate ER 25 MG mouth daily. TB24 levofloxacin Take 1 Tab by 3 Tab 0 02/20/2020 02/23/2020 A ctive (LEVAQUIN) 500 MG mouth daily for tabletIndications: 3 days. Take one Malignant neoplasm of the day before, urinary bladder, of and after the unspecified site cystogram (HCCode) scheduled after the radical cystectomy. documented as of this encounter (statuses as of 01/06/2020) Active Problems Problem Noted Date Malignant neoplasm of overlapping sites of bladder (HC Code) 10/25/2019 documented as of this encounter (statuses as of 01/06/2020) Social History Tobacco Use Types Packs/Day Years Used Date Never Smoker Smokeless Tobacco: Never Used Alcohol Use Drinks/Week oz/Week Comments Never Alcohol Habits Answer Date Recorded How often do you have a drink containing alcohol? Never 10/04/2019 How many drinks containing alcohol do you [...] Travel End No recent travel history available. COVID-19 Exposure Response Date Recorded In the last month, have you been in contact with No / Unsure 01/06/2020 12:53 PM CDT someone who was confirmed or suspected to have Coronavirus / COVID-19? documented as of this encounter Last Filed Vital Signs Vital Sign Reading Time Taken Comments Blood Pressure 146/91 01/06/2020 1:05 PM CDT Pulse 68 01/06/2020 1:05 PM CDT Temperature 36.8 C (98.2 F) 01/06/2020 1:05 PM CDT Respiratory Rate - - Oxygen Saturation - - Inhaled Oxygen Concentration - - Weight 71.7 kg (158 lb) 01/06/2020 1:05 PM CDT Height 157.5 cm (5' 2") 01/06/2020 1:05 PM CDT Body Mass Index 28.9 01/06/2020 1:05 PM CDT documented in this encounter Progress Notes Giancarlo Doherty MD - 01/06/2020 1:00 PM CDT CC: left lower back pain HPI: Ms. 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 She had an MRI done at [facility] which showed a compression of the exiting left L1 nerve root due to either extruded disc or facet hypertrophy. Epidural steroid injection was trialed in September with little relief. Patient has since been applying topical steroid to affected area. Patient currently takesT3 nightly which alleviates pain but does not take in the daytime due to mood-altering effects. Patient also takes gabapentin 300 mg once daily for unrelated condition which she says does not help withcurrent pain. Of note, patient has biopsy with urology and surgery planned in early January and needs to get pain under control to tolerate surgery and recovery safely. Currently she says pain is moderate even with medication and considers it debilitating. Patient lives at home with but he is infirm and cannot provide much social support. She was driven to clinic by her daughter but reported she cannot rely on her for support. Patient lives in [place]. PHYSICAL EXAM: MSK: - positive slump maneuver on left leg, negative on right - positive SLR on left leg, negative on right Neuro: - patellar reflexes 2+ b/l - achilles reflex 1+ b/l IMAGING: ASSESSMENT/PLAN: #S1 radiculopathy - Radiographic findings correlate with clinical picture of L1 radiculopathy distribution - Current objective is to get pain under control in time for surgery with urology in January - Increase gabapentin to 300 mg bid for next two days. If no improvement, increase T3 to bid in addition to gabapentin bid. - Will reach out to Dr. Fuentes to assess availability for repeat CORI - Will reach out to Dr. Jaimes (urologist) and Dr. Trotter (heme/onc) to see if trial of medrol pack is feasible given proximity to surgery Greater than 45 minutes was spent in the care of the patient during this encounter and over half of that time was spent on counseling and coordination of care. We talked about her Left S1 radiculopathyand the management plan going forward. documented in this encounter Plan of Treatment Date Type Specialty Care Team Description 01/10/2020 Office Visit Hematology and Oncology Colt Trotter MD [address], [address] [place], [place] [address] [phone] 01/13/2020 Clinical Support Pathology Resource, Covid-19 Testing Site 01/13/2020 Clinical Support Pathology Resource, Covid-19 Testing Site 01/18/2020 Appointment Urology Dick Jaimes MD [address] [facility] [address] [address] [place], [place] [address] [phone] 01/26/2020 Confidential Psychiatry SolitarioZamzam MD [address] [place] [address] [address] [place], [place] [address] [phone] 01/30/2020 Appointment Urology Dick Jaimes MD [address] [facility] [address]LO[address] [place], [place] [address] [phone] Health Maintenance Due Date Last Done Comments COLON CANCER SCREENING: COLONOSCOPY 1945 MAMMOGRAM ANNUAL 1945 TETANUS SHOT (ADULT) 1960 BMI FOLLOW UP PLAN 1963 HEPATITIS C SCREENING 1963 OSTEOPOROSIS SCREENING 2010 PNEUMOVAX >=65 (PPSV23) 2010 FLU VACCINE > 6 MONTHS 02/18/2020 FALL SCREEN 10/24/2020 01/06/2020 documented as of this encounter Results XR LUMBAR SPINE 2 VIEWS AP AND LAT (01/06/2020 3:56 PM CDT) Specimen Narrative Performed At Lumbar Spine Radiographs: 3 views [facility] HISTORY: Pain COMPARISON: None available. DISCUSSION: Some of the osseous structures are parti ally obscured by stool and bowel gas. There are five non-rib bearing lumbar ve rtebral bodies. The alignment of the spine is within nor mal limits. No displaced fracture or compression def ormity is identified. Vertebral body heights are maintained. Multilevel mild to moderate degenerative changes, mel ed by intervertebral disc space narrowing and osteophytosis. Mild L5-S1 facet arthropathy. IMPRESSION: No acute radiographic abnormality. Multilevel [id number] degenerative changes. Signed by: Dr. Ad Landa MD on 01/05 4:07 PM Procedure Note Luiz, Rad Results In - 01/06/2020 4:10 P M CDT Lumbar Spine Radiographs: 3 views HISTORY: Pain COMPARISON: None available. DISCUSSION: Some of the osseous structures are parti ally obscured by stool and bowel gas. There are five non-rib bearing lumbar ve rtebral bodies. The alignment of the spine is within nor mal limits. No displaced fracture or compression def ormity is identified. Vertebral body heights are maintained. Multilevel mild to moderate degenerative changes, marked by intervertebral disc space narrowing and osteophytosis. Mild L5-S1 facet arthropathy. IMPRESSION: No acute radiographic abnormality. Multilevel gvkl-ut-[id number] degenerative changes. Signed by: Dr. Ad Landa MD on 01/05 4:07 PM Performing Organization Address City/State/Zipcode Phone Number [facility] [address] [facility] [place] [address] documented in this encounter Visit Diagnoses Diagnosis Lumbar spine pain - Primary Lumbago Fall, initial encounter documented in this encounter Insurance Payer Benefit Plan / Subscriber ID Effective Dates Phone Addre ss Type Group [facility] [place] [facility]-Presen [address] POS [facility] IN-AREA POS - [place], [place] [phone] Tonio (Home) [place] [address] documented as of this encounter
--- OUTSIDE RECORDS SUMMARY | 2020-03-26 09:23 | XMS REPORT | Summary of Care ---
:1945 Author Organization [facility] [place] [address] Care Team Providers Name Role Phone Lucy Kuo MD Primary Care Provider Reason for Visit Reason Comments Follow Up Consult, Test & Treat (Routine) Status Reason Specialty Diagnoses / Referred By Referred To Procedures Contact Contact Patient Oncology / Diagnoses 3 week f/u Connor Kuo Aihua Responsible Hematology and Procedures ESTABLISHED OFFICE VISIT CMD Eyad MD Oncology [address] [place] [address], [address] [place] [address], [place] [address] [address] Phone: [place], [place] [phone] Fax: Encounter Details Date Type Department Care Team Description 01/10/2020 [facility] [address] [facility] 7th Floor, [address] [place] [address] [address] [facility] [phone] 7th Floor, [address] [place] [address] Allergies Active Allergy Reactions Severity Noted Date Comments Sulfa Antibiotics Swelling High 10/04/2019 documented as of this encounter (statuses as of 01/10/2020) Medications Medication Sig Dispensed Refills Start Date [...] times daily. (CALCIUM CITRATE + D OR) [place]-3 Fatty Acids Take by mouth 0 Active [...] as of this encounter (statuses as of 01/10/2020) Active Problems Problem Noted Date Malignant neoplasm of overlapping sites of bladder (HC Code) 10/25/2019 documented as of this encounter (statuses as of 01/10/2020) Social History Tobacco Use Types Packs/Day Years [...] been in contact with No / Unsure 01/10/2020 8:26 AM CDT someone who was confirmed or suspected to have Coronavirus / COVID-19? documented as of this encounter Last Filed Vital Signs Vital Sign Reading Time Taken Comments Blood Pressure 126/78 01/10/2020 8:38 AM CDT Pulse 79 01/10/2020 8:38 AM CDT Temperature 36.6 C (97.9 F) 01/10/2020 8:38 AM CDT Respiratory Rate - - Oxygen Saturation - - Inhaled Oxygen Concentration - - Weight 70.6 kg (155 lb 9.6 oz) 01/10/2020 8:38 AM CDT Height 157.5 cm (5' 2") 01/10/2020 8:38 AM CDT Body Mass Index 28.46 01/10/2020 8:38 AM CDT documented in this encounter Patient Instructions Patient InstructionsHiTimothy moralez MA - 01/10/2020 8:40 AM CDT [facility] SECTION OF ONCOLOGY/HEMATOLOGY [phone] FAX [phone] Please note that all labs and or imaging results will be discussed at the next office visit unless told otherwise. if a problem occurs after hours please contact our office and have physician chief librarian circulation department paged [phone] Patient Instructions: (to be completed before next visit) Return to clinic 02/28/20 with labs prior Continue follow up as planned with Dr. Jaimes Please don't hesitate to call if you have any questions or concerns before your appt. TELL US ABOUT YOUR EXPERIENCE You may receive an email or letter from [facility] via our partner, Elian Hernández. This is a survey about your experience today. Your feedback is important to us so we can improve. If any question does not apply to your visit, please leave it blank. Our goal is to ensure you have an exceptional experience at [facility]. If for any reason you cannot rate your experience as very good, please let a member of our staff know so wecan make immediate improvements. Thanks Timothy Aguilar MA documented in this encounter Progress Notes Luther Trotter MD - 01/10/2020 8:40 AM CDTAttending Physician Attestation I saw and examined the patient Marily Gonsales with the nurse practioner, Julian Allison today. I agree with his clinical notes, assessment, and plan with the following changes or exceptions listed, if any. Assessment: 74 y.o. 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 Started on ddMVAC NAC 11/08/2019, completed 4 cycles 12/20/2019 Anxiety Chemo induced nausea / vomiting Thyromegaly ECOG: PS 0 Today: very anxious. Saw Dr Doherty with PMR for low back pain. Still uncontrolled pain. Also saw Dr Jerez. Trying new medication pristiq, and she thinks is not working. Had interval restaging CT 12/27/2019, which does not show any evidence of disease otuside of bladder. Plan: 1. Stage 2 bladder cancer with 90% plasmacytoid variant -4 x ddMVAC 11/08/2019- 12/20/2019. CT without metastases. F/up with Dr Jaimes regarding surgery, she says date of surgery would be 01/29, will plan to see her 4 weeks post op. -PORT placed 2. Sciatica - f/up with Dr Doherty. Ok from medical oncology standpoint for medrol dose pack if needed. 3. Anxiety - f/up with Dr Jerez. I encouraged her to give feedback to her clinic, if she thinks her current medication is not working, not sure if should wait longer for effect vs trying new treatment. Defer topsychiatry RTC 4 weeks post op with labs same date- cbc, cmp, mg, TSH Luther Trotter MD [facility] [employer] Machine Operatorassembly line inspector Department of Internal Medicine Section of Hematology/Oncology [phone] office yrd, Julian Bhardwaj NP - 01/10/2020 8:40 AM CDT Medical Oncology Clinic Note Referred By: Connor Kuo MD [address] [place] [address] Dr Brooks [place] [address] Cancer: bladder cancer, T2N0M0, 90% plasmacytoid variant Interim History: 01/10/20: Presents to clinic s/p C4 ddMVAC. Images from 12/26, no report Anxiety still present, started pristiq which she claims to have not tolerated well before and is currently not tolerating it (just feels "sickly", nausea, fatigue) Sciatic pain still bad, planning CORI on 01/[address] Jaimes appt 01/17 Almost passed out again after the last cycle again, but was more aware of what to watch forand did not fall. Had some nausea, some vomiting, ondansetron helped Hands feel numb, difficulty with fine dexterity Urine clear, no hematuria BM flipping between diarrhea and constipation, no bleeding No CP (except with anxiety), no SOB, no F/C/NS Appetite is okay but taste altered Oncology History of Present Illness: Marily Gonsales is a 74 y.o. female who is here for an initial consultation for bladdercancer History is obtained from the patient and the available medical records and chart. Marily Gonsales has no acute complaints today. -Ms. Marily Gonsales presented with fall 2015 with first diagnosis of bladder cancer, was NMIBC at the time. She had 2 surgeries around 03/[address]ist Dr Cortés. Was treated with BCG induction which was complicated by infections. After induction she had also was hospitalized with chills and hallucinations, in 2016. BCG was tried again (likely as maintenance) but she developedrecurrent symptoms and was stopped. After, MMC was trid but unclear how much. Due to insurance issues, she transferred to see Dr Mccurdy in [place], starting around 2018 pt believes. Last TURBT / cystoscopy was 09/06/[address] Mccurdy and was found to have T1b cancer; she was then referred to see Dr Jaimes. 10/12/2019 CT A/P: Mild right-sided bladder wall thickening. No adenopathy or distant metastasis is identified. 10/13/2019 CXR: Right lower lung nodular opacities may represent superimposed vessels or granulomas. However in the setting of malignancy, a follow-up chest CT is suggested for further evaluation. Diffuse osteopenia. Mild loss of vertebral body height in the lower thoracic spine, age indeterminate, suggest clinical correlation. 10/14/2019 EUA/ cystoscopy/ TURBT: FINDINGS: On vaginal bimanual examination, there was no palpable induration or three-dimensional mass. At cystoscopy, there was evidence of the recent resection of sort of low right lateral wall. There was no obvious exophytic tumor, but the scar was erythematous. More importantly under blue light, there were extensive mucosal changes suggestive of CIS both in the periphery of the tumor and then starting on the low posterior wall and extending in several patchy areas up to just inside the bladder neck at 12 o'clock. We sampled each one of these and sent them as separate geographic specimens and also sent three samples to the tumor bank. Then, we widely resected and deeply resected the tumor bed. The diameter of the tumor was 3-3.5 cm. Path: A. URINARY BLADDER, RIGHT POSTERIOR LATERAL WALL, BIOPSY: - UROTHELIAL CARCINOMA, HIGH GRADE (WHO GRADE 3), INVASIVE INTO LAMINA PROPRIA - NEGATIVE FOR LYMPH VASCULAR INVASION - MUSCULARIS PROPRIA IS NOT PRESENT B. URINARY BLADDER, RIGHT LATERAL WALL, BIOPSY: - UROTHELIAL CARCINOMA, HIGH GRADE (WHO GRADE 3), INVASIVE INTO LAMINA PROPRIA - NEGATIVE FOR LYMPH VASCULAR INVASION - MUSCULARIS PROPRIA IS PRESENT AND NOT INVOLVED BY TUMOR C. URINARY BLADDER, RIGHT ANTERIOR WALL, BIOPSY: - UROTHELIAL CARCINOMA, HIGH GRADE (WHO GRADE 3), INVASIVE INTO LAMINA PROPRIA - NEGATIVE FOR LYMPH VASCULAR INVASION - MUSCULARIS PROPRIA IS PRESENT AND NOT INVOLVED BY TUMOR D. URINARY BLADDER, DOME, BIOPSY: - NO PATHOLOGIC DIAGNOSIS - MUSCULARIS PROPRIA ABSENT E. URINARY BLADDER, POSTERIOR MIDLINE WALL, BIOPSY: - NO PATHOLOGIC DIAGNOSIS - MUSCULARIS PROPRIA PRESENT F. URINARY BLADDER, LEFT LATERAL WALL, BIOPSY: - NOPATHOLOGIC DIAGNOSIS - MUSCULARIS PROPRIA PRESENT G. URINARY BLADDER, TRIGONE, BIOPSY: - MILD CHRONIC INFLAMMATION, NEGATIVE FOR DYSPLASIA OR CARCINOMA] - MUSCULARIS PROPRIA ABSENT H. URINARY BLADDER, RIGHT POSTERIOR WALL, PREVIOUS RESECTION SITE, TURBT: - UROTHELIAL CARCINOMA, HIGH GRADE (WHO GRADE 3), INVASIVE INTO MUSCULARIS PROPRIA - NEGATIVE FOR LYMPH VASCULAR INVASION - PRIOR RESECTION SITE CHANGE SEEN Comments: The tumor is 90% of the plasmacytoid type. No surface CIS is seen on any of the slides.It would be important in this case to consider the possibility of metastatic breast carcinoma which can mimic plasmacytoid variant of urothelial cancer, especially since there is no associated urothelial carcinoma in situ in this case. 10/27/2019 CT chest: Impression: No evidence of metastatic disease in the chest. 11/08/2019 C1 ddMVAC, C2 11/22/2019, C3 12/06/2019, C4 12/20/2019 12/27/2019 CT CAP: No report available but appears to be stable wit no mets and slight right side bladder wall thickening Review of Systems: Review of Systems Constitutional: Negative for diaphoresis, fever and weight loss. HENT: Positive for hearing loss. Eyes: Negative. Respiratory: Negative. Cardiovascular: Negative. Gastrointestinal: Negative for nausea. Genitourinary: Negative. Negative for dysuria, frequency, hematuria and urgency. Musculoskeletal: Positive for back pain (lumbar back and left side sciatic). Negative for falls. Skin: Negative. Neurological: Positive for sensory change (slight numbness to fingers post chemotherapy). Psychiatric/Behavioral: Positive for depression. The patient is nervous/anxious. Past Medical History: Past Medical History: Diagnosis Date Anxiety Arthritis Hearing loss High blood pressure Seasonal allergic rhinitis due to pollen Skin cancer Thyroid disease Denies heart, lung, liver, kidney problems Past Surgical History: Past Surgical History: Procedure Laterality Date HEMORROIDECTOMY HX CATARACT-L HX CATARACT-R HX SECTION HX DILATION AND CURETTAGE OF UTERUS HX FOOT SURGERY 2009 Had bone spur removed then fracture- Rt foot HX TONSILLECTOMY HX TURBT 10/15/2019 HX TURBT 2016 HX TURBT 09/06/2019 T1b HX URETER REMOVAL x2 Social History: Social History Socioeconomic History Marital status: Spouse name: Not on file Number of children: Not on file Years of education: Not on file Highest education level: Not on file Occupational History Not on file Social Needs Financial resource strain: Not on file Food insecurity: Worry: Not on file Inability: Not on file Transportation needs: Medical: Not on file Non-medical: Not on file Tobacco Use Smoking status: Never Smoker Smokeless tobacco: Never Used Substance and Sexual Activity Alcohol use: Never Frequency: Never Drug use: Never Sexual activity: Not on file Lifestyle Physical activity: Days per week: Not on file Minutes per session: Not on file Stress: Not on file Relationships Social connections: Talks on phone: Not on file Gets together: Not on file Attends faith service: Not on file Active member of club or organization: Not on file Attends meetings of clubs or organizations: Not on file Relationship status: Not on file Intimate partner violence: Fear of current or ex partner: Not on file Emotionally abused: Not on file Physically abused: Not on file Forced sexual activity: Not on file Other Topics Concerns: Not on file Social History Narrative Not on file never smoker Grew up in [place] [place] to [employer] Denies secondhand tobacco exposure history Family History: Family History Problem Relation Name Age of Onset Breast Cancer Mother High Blood Pressure Mother Diabetes Father mother with breast cancer, 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 Ascorbic Acid (VITAMIN C) 500 MG CAPS Take by mouth daily. atorvastatin (LIPITOR) 20 MG tablet Take 20 mg by mouth daily. B Complex Vitamins (B COMPLEX 1 OR) Take by mouth daily. baclofen (LIORESAL) 10 MG tablet Take 10 mg by mouth two times daily. BIOTIN 5000 OR Take by mouth daily. Calcium Citrate-Vitamin D (CALCIUM CITRATE + D OR) Take by mouth two times daily. Calcium Polycarbophil (FIBER-CAPS OR) Take by mouth 3 times daily. Desvenlafaxine Succinate ER 25 MG TB24 Take 25 mg by mouth daily. 30 Tab 1 gabapentin (NEURONTIN) 300 MG capsule Take 500 mg by mouth daily. hydrOXYzine (ATARAX) 50 MG tablet Take 1 Tab by mouth 3 times daily as needed for Anxiety. 90 Tab 1 L-THEANINE OR Take 200 mg by mouth daily. Lactobacillus (PROBIOTIC ACIDOPHILUS OR) Take by mouth daily. lamoTRIgine 50 MG TBDP Take 50 mg by mouth two times daily. [START ON 02/20/2020] levofloxacin (LEVAQUIN) 500 MG tablet Take 1 Tab by mouth daily for 3 days. Take one the day before, of and after the cystogram scheduled after the radical cystectomy. 3 Tab 0 levothyroxine (SYNTHROID) 125 MCG tablet Take 125 mcg by mouth daily. Lidocaine 0.5 % GEL Apply topically. Magnesium 400 MG TABS Take by mouth. Multiple Vitamins-Minerals (MULTIVITAMIN ADULT OR) Take by mouth daily. [place]-3 Fatty Acids (FISH OIL) 1200 MG CAPS Take by mouth daily. potassium chloride (MICRO-K) 10 MEQ capsule Take 10 mEq by mouth daily. triamterene-hydrochlorothiazide (DYAZIDE) 37.5-25 MG per capsule Take 1 Cap by mouth every morning. Turmeric Curcumin 500 MG CAPS Take by mouth. No current facility-administered medications for this visit. Physical Exam: Vital Signs Height: 5' 2" (157.5 cm) Weight - Scale: 155 lb 9.6 oz (70.6 kg) Temp: 97.9 F (36.6 C) Temp Source: Oral Pulse: 79 Resting Heart Rate: 79 BP: 126/78 Patient Position: Sitting Cuff Size: regular BP Location: left arm Oxygen Therapy O2 Sat: 97 % O2 Flow Rate: Room Air Height and Weight BSA (Calculated - sq m): 1.76 sq meters BMI (Calculated): 28.5 Predicted Body Weight: 110.45 Body surface area is 1.76 meters squared. Wt Readings from Last 3 Encounters: 01/10/20 155 lb 9.6 oz (70.6 kg) 01/06/20 158 lb (71.7 kg) 01/04/20 158 lb 6.4 oz (71.8 kg) Physical Exam Constitutional: General: She is not in acute distress. Appearance: Normal appearance. She is not ill-appearing, toxic-appearing or diaphoretic. Comments: Anxious appearing WF NAD, becomes more short of breath with anxiety HENT: Head: Normocephalic and atraumatic. Right Ear: External ear normal. Left Ear: External ear normal. Nose: Nose normal. No congestion. Mouth/Throat: Mouth: Mucous membranes are moist. Eyes: General: Right eye: No discharge. Left eye: No discharge. Extraocular Movements: Extraocular movements intact. Conjunctiva/sclera: Conjunctivae normal. Neck: Musculoskeletal: Normal range of motion and neck supple. Cardiovascular: Rate and Rhythm: Normal rate. Pulses: Normal pulses. Heart sounds: No murmur. No friction rub. Comments: Right chest port Pulmonary: Effort: Pulmonary effort is normal. No respiratory distress. Breath sounds: Normal breath sounds. No stridor. No wheezing, rhonchi or rales. Abdominal: General: Abdomen is flat. There is no distension. Palpations: Abdomen is soft. There is no mass. Tenderness: There is no abdominal tenderness. There is no right CVA tenderness, left CVA tenderness, guarding or rebound. Hernia: No hernia is present. Musculoskeletal: Normal range of motion. General: No swelling. Right lower leg: No edema. Left lower leg: No edema. Skin: General: Skin is warm and dry. Coloration: Skin is not jaundiced or pale. Findings: No bruising, erythema, lesion or rash. Neurological: Mental Status: She is alert and oriented to person, place, and time. Psychiatric: Mood and Affect: Mood normal. Behavior: Behavior normal. Comments: Anxious, slightly tearful Labs: Lab Results Component Value Date WBC 6.0 01/10/2020 HGB 12.2 01/10/2020 HCT 37.3 01/10/2020 MCV 92.6 01/10/2020 PLT 345 01/10/2020 Lab Results Component Value Date ALT 14 01/10/2020 AST 21 01/10/2020 ALKPHOS 66 01/10/2020 BILITOT 0.4 01/10/2020 Lab Results Component Value Date CREATININE 0.85 01/10/2020 BUN 16 01/10/2020 NA 139 01/10/2020 K 4.3 01/10/2020 CL 97 (L) 01/10/2020 CO2 30 01/10/2020 Images: reviewed images from 12/27/19, but no official report yet Assessment: 74 y.o. 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 Started on ddMVAC NAC 11/08/2019 Anxiety Chemo induced nausea / vomiting ECOG: PS 0 Plan: 1. Stage 2 bladder cancer with 90% plasmacytoid variant -ddMVAC [address] 12/27/19 shows no evidence of mets and stable bladder wall thickening right side, pending official read -Dr Jaimes on 01/18/2020. Day before on 01/16, plan for steroid injection with Dr. Fuentes to increase comfort for procedures -PORT placed -CT chest SARAH 2. Sciatica - see above. Seeing Dr. Rizvi and Dr. Fuentes 3. Anxiety - likely will interfere with her surgery and recovery. Will refer to psychiatry here, can eventuallygo back to her home psychiatrist later RTC 02/28/20 with labs prior Discussed with JALEN August [facility] documented in this encounter Plan of Treatment Date Type Specialty Care Team Description 01/13/2020 Clinical Support Pathology Resource, Covid-19 Testing Site 01/17/2020 Office Visit Physical Medicine and Nestor Fuentes, Rehab [address] [place], [place] [address] [phone] 01/18/2020 Appointment Urology Dick Jaimes MD [address] [facility] [address] [place], [place] [address] [phone] 01/26/2020 Confidential Psychiatry Zamzam Jerez MD [address] [place] [address] [place], [place] [address] [phone] 01/30/2020 Appointment Urology Dick Jaimes MD [address] [facility] [address]LO[address] [place], [place] [address] [phone] 02/28/2020 Office Visit Hematology and Oncology Colt Trotter MD [address], [address] [place], [place] [address] [phone] Health Maintenance Due Date Last Done Comments COLON CANCER SCREENING: COLONOSCOPY 1945 MAMMOGRAM ANNUAL 1945 TETANUS SHOT (ADULT) 1960 BMI FOLLOW UP PLAN 1963 HEPATITIS C SCREENING 1963 OSTEOPOROSIS SCREENING 2010 PNEUMOVAX >=65 (PPSV23) 2010 FLU VACCINE > 6 MONTHS 02/18/2020 FALL SCREEN 01/05/2021 01/06/2020 documented as of this encounter Results Not on filedocumented in this encounter Visit Diagnoses Diagnosis Malignant neoplasm of overlapping sites of bladder (HCCode) - Primary Malignant neoplasm of other specified si rema of bladder documented in this encounter Insurance Payer Benefit Plan / Subscriber ID Effective Dates Phone Addre ss Type Group [facility] xxxxxxxxxxxx 2017-Presen [address] POS BLUE SHIELD IN-AREA POS [place] [address] [place] (Home) [place] [address] documented as of this encounter
--- OUTSIDE RECORDS SUMMARY | 2020-03-26 09:23 | XMS REPORT | Clinical Summary ---
:1945 Author Organization [facility] [place] [address] Care Team Providers Name Role Phone Lucy Kuo MD Primary Care Provider Allergies Active Allergy Reactions Severity Noted Date Comments Sulfa Antibiotics Swelling High 10/04/2019 Medications Medication Sig Dispensed Refills Start Date End Date Status triamterene-hydroch Take 1 Cap by 0 Active lorothiazide mouth every (DYAZIDE) 37.5-25 morning. MG per capsule potassium chloride Take 10 mEq by 0 Active (MICRO-K) 10 MEQ mouth daily. capsule levothyroxine Take 125 mcg 0 Act libby (SYNTHROID) 125 MCG by mouth tablet daily. gabapentin Take 500 mg by 0 Acti ve (NEURONTIN) 300 MG mouth daily. capsule atorvastatin Take 20 mg by 0 Act libby (LIPITOR) 20 MG mouth daily. tablet lamoTRIgine 50 MG Take 50 mg by 0 Active TBDP mouth two times daily. baclofen (LIORESAL) Take 10 mg by 0 Active 10 MG tablet mouth two times daily. Multiple Take by mouth 0 Activ e Vitamins-Minerals daily. (MULTIVITAMIN ADULT OR) B Complex Vitamins Take by mouth 0 Active (B COMPLEX 1 OR) daily. Calcium Take by mouth 0 Activ e Citrate-Vitamin D two times (CALCIUM CITRATE + daily. D OR) Rodessa-3 Fatty Acids Take by mouth 0 Active (FISH OIL) 1200 MG daily. CAPS Lactobacillus Take by mouth 0 A ctive (PROBIOTIC daily. ACIDOPHILUS OR) Calcium Take by mouth 0 Activ e Polycarbophil 3 times daily. (FIBER-CAPS OR) BIOTIN 5000 OR Take by mouth 0 Active daily. L-THEANINE OR Take 200 mg by 0 A ctive mouth daily. Ascorbic Acid Take by mouth 0 A ctive (VITAMIN C) 500 MG daily. CAPS Turmeric Curcumin Take by 0 Ac tive 500 MG CAPS mouth. acetaminophen-codei Take 1 Tab by 0 Active ne (TYLENOL #3) mouth every 8 300-30 MG per hours. tablet Magnesium 400 MG Take by 0 Act libby TABS mouth. Lidocaine 0.5 % GEL Apply 0 Active topically. hydrOXYzine Take 1 Tab by 90 Tab 1 01/04/2020 Act libby (ATARAX) 50 MG mouth 3 times tablet daily as needed for Anxiety. Desvenlafaxine Take 25 mg by 30 Tab 1 01/04/2020 Active Succinate ER 25 MG mouth daily. TB24 levofloxacin Take 1 Tab by 3 Tab 0 02/20/2020 02/23/20 Ac tive (LEVAQUIN) 500 MG mouth daily 20 tabletIndications: for 3 days. Malignant neoplasm Take one the of urinary bladder, day before, of unspecified site and after the (HCCode) cystogram scheduled after the radical cystectomy. hydrOXYzine Take 25 mg by 0 01/04/20 Disc ontinued (ATARAX) 25 MG mouth two 20 (*Dup licate tablet times daily. medicat ion) fluoxetine (PROZAC) Take 10 mg by 0 Discontinued 10 MG tablet mouth daily. 20 (*Al ternate therapy) Hospital, Clinic, or Ordered Dose Route Frequency Start Date End D ate Status Other Facility Administered Medication Lexiscan IV Shanell) 0.4 0.4 mg IV ONCE 12/19/2019 12/19/19 20 Ended MG/5ML injection 0.4 mgIndications: Essential hypertension, Dyslipidemia, Precordial pain, Impaired mobility, Malignant neoplasm of overlapping sites of bladder (HCCode), HUBBARD (dyspnea on exertion) Technetium Tc 99m 5-30 millicurie IV Once 12/19/201912/18 Ended Tetrofosmin (MYOVIEW) injection 5-30 millicurieIndications: Essential hypertension, Dyslipidemia, Precordial pain, Impaired mobility, Malignant neoplasm of overlapping sites of bladder (HCCode), HUBBARD (dyspnea on exertion) Technetium Tc 99m 5-30 millicurie IV ONCE 12/19/201912/18 Ended Tetrofosmin (MYOVIEW) injection 5-30 millicurieIndications: Essential hypertension, Dyslipidemia, Precordial pain, Impaired mobility, Malignant neoplasm of overlapping sites of bladder (HCCode), HUBBARD (dyspnea on exertion) Active Problems Problem Noted Date Malignant neoplasm of overlapping sites of bladder (HC Code) 10/25/2019 Encounters Date Type Specialty Care Team Description 01/06/2020 Ancillary Radiology Procedure 01/06/2020 Office Visit Physical Medicine Giancarlo Doherty MD [facility] (w/sciatica) 01/06/2020 Telephone Hematology Luther Mccloud Advice Only Oncology MD Eyad 01/06/2020 Abstract Physical Medicine Giancarlo Doherty MD and Rehab 01/06/2020 Abstract Physical Medicine Giancarlo Doherty MD and Rehab 01/06/2020 Travel 01/06/2020 Telephone Urology Dick Jaimes, Medical Conc mandy (when MD to take medicat ion) 01/05/2020 Telephone Urology Dick Jaimes Procedure 01/05/2020 Orders Only Urology Dick Jaimes MD 01/04/2020 Travel 12/29/2019 Abstract Urology Dick Jaimes MD 12/29/2019 Abstract Urology Dick Jaimes MD 12/23/2019 Telephone Hematology and Luther Trotter Return Patien t Call Oncology MD Eyad 12/20/2019 Hospital Encounter In[facility] 12/20/2019 Office Visit Hematology and Luther Trotter Follow Up Oncology MD Eyad 12/20/2019 Travel 12/20/2019 Orders Only Hematology and Luther Trotter Oncology MD Eyad 12/19/2019 Ancillary Cardiology Procedure 12/19/2019 Ancillary Cardiology Procedure 12/19/2019 Travel 12/16/2019 Telephone Cardiology Manny Wise Medical Concern MD Deric 12/13/2019 Office Visit Family Medicine Shun Gusman, Nutrition Counseling PhD 12/13/2019 Office Visit Cardiology Manny Wise Cardiology Init dougie Leos MD Visit 12/13/2019 Travel 12/08/2019 Telephone Cardiology Manny Wise Confirmation (Lucy Leos MD prep for 12/12) 12/06/2019 Hospital Encounter [facility], [facility] 12/06/2019 Office Visit Hematology and Luther Trotter Follow Up Oncology MD Eyad 12/06/2019 Travel 12/02/2019 Telephone UrologDick Block MD 11/29/2019 Telephone Urology Dick Jaimes, Referrals 11/29/2019 Telephone Urology Dick Jaimes, Referrals 11/28/2019 Telephone Urology Dick Jaimes, Procedure MD 11/22/2019 Hospital Encounter Infusion [facility], [facility] 11/22/2019 Office Visit Hematology and Luther Trotter Follow Up Oncology MD Eyad 11/22/2019 Travel 11/08/2019 Hospital Encounter Infusion Center [facility], [facility] 11/08/2019 Office Visit Hematology and Luther Trotter Follow Up Oncology MD Eyad 11/08/2019 Travel 11/01/2019 Orders Only Mercy Garcia 10/31/2019 Orders Only Hematology and Rychlec, Oncology BREANNE Victor 10/31/2019 Telephone Hematology and Luther Trotter Other (infusi on Oncology MD Eyad scheduled) 10/27/2019 Orders Only UrologDick Block MD 10/26/2019 Telephone Hematology and Luther Trotter Schedule For Oncology MD Eyad Test/Appt 10/26/2019 Telephone Hematology and Luther Trotter Schedule For Oncology MD Eyad Test/Appt 10/25/2019 Office Visit Hematology and Luther Trotter Bladder Cance r Celine Castano MD 10/25/2019 Travel 10/24/2019 Telephone UrologDick Block, Return Patie nt Call; Return Patient Call (2X Patient mariama ling to speak with fatimah sawyer to see if they can help her get ah old of staf for Dr. Jovani de los santos office. Per pat ienika she has been pu t on schedule twice and she is not sure if this is correct . [facility] tried to reach staff at ext- [phone] g ot no answer, please see message below a nd call to advise. ...) 10/21/2019 Telephone Urology Dick Jaimes, Medical Conc mandy MARTIN 10/21/2019 Telephone Urology Dick Jaimes, Question abo ut appointment 10/21/2019 Telephone Hematology and Luther Trotter Question abou t Oncology MD Eyad appointment (requesting chrystal ner consult with Dr Hyacinth Trotter) 10/20/2019 Clinical Support Urology Dick Jaimes, Follow U p Bladder MD Cancer; TELEPHO NE VISIT (bladder cncer follow up) 10/19/2019 Telephone Urology Dick Jaimes, Question abo ut MD appointment 10/18/2019 Orders Only Urology Dick Jaimes, 10/18/2019 Telephone Urology Dick Jaimes, Test Orders 10/17/2019 Telephone Urology Dick Jaimes, Test Orders (clarify MD orders 2 have b een ordered ) 10/14/2019 Orders Only Urology Dick Jaimes, 10/14/2019 Telephone Urology Dick Jaimes, Medical Conc mandy 10/14/2019 Abstract Urology Dick Jaimes, 10/13/2019 Telephone Urology Dick Jaimes, Procedure 10/13/2019 Abstract Urology Dick Jaimes, 10/10/2019 Telephone Urology Dick Jaimes, Procedure MD from Last 3 Months Family History Medical History Relation Name Comments Diabetes Father Breast Cancer Mother High Blood Pressure Mother Relation Name Status Comments Father Mother Social History Tobacco Use Types Packs/Day Years Used Date Never Smoker Smokeless Tobacco: Never Used Tobacco Cessation: Counseling Given: No Alcohol Use Drinks/Week oz/Week Comments Never Alcohol [...] or suspected to have Coronavirus / COVID-19? Last Filed Vital Signs Vital Sign Reading Time Taken Comments Blood Pressure 146/91 01/06/2020 1:05 PM CDT Pulse 68 01/06/2020 1:05 PM CDT Temperature 36.8 C (98.2 F) 01/06/2020 1:05 PM CDT Respiratory Rate 16 01/04/2020 10:16 AM CDT Oxygen Saturation 98% 12/13/2019 10:31 AM CDT Inhaled Oxygen Concentration - - Weight 71.7 kg (158 lb) 01/06/2020 1:05 PM CDT Height 157.5 cm (5' 2") 01/06/2020 1:05 PM CDT Body Mass Index 28.9 01/06/2020 1:05 PM CDT Plan of Treatment Date Type Specialty Care Team Description 01/10/2020 Office Visit Hematology and Oncology Colt Trotter MD [address], [address] [place], [place] [address] 01/13/2020 Clinical Support Pathology Resource, [place] [address] Testing Site 01/13/2020 Clinical Support Pathology [facility], [place] [address] Testing Site 01/18/2020 Appointment Urology Dick Jaimes MD [address] [facility] [address] [place], [place] [address] [phone] 01/30/2020 Appointment Urology Dick Jaimes MD [address] [facility] [address] [place], [place] [address] [phone] Health Maintenance Due Date Last Done Comments COLON CANCER SCREENING: COLONOSCOPY 1945 MAMMOGRAM ANNUAL 1945 TETANUS SHOT (ADULT) 1960 BMI FOLLOW UP PLAN 1963 HEPATITIS C SCREENING 1963 OSTEOPOROSIS SCREENING 2010 PNEUMOVAX >=65 (PPSV23) 2010 FLU VACCINE > 6 MONTHS 02/18/2020 FALL SCREEN 01/05/2021 01/06/2020 Procedures Procedure Name Priority Date/Time Associated Comments Diagnosis XR LUMBAR SPINE 2 VIEWS STAT(<24 Hrs) 01/06/2020 Lumbar s pine pain Results for AP AND LAT 3:56 PM CDT Fall, initial this procedure encounter are in the results section. MAGNESIUM STAT 12/20/2019 Malignant Results for 12:00 AM CDT neoplasm of this procedure overlapping sites are in the of bladder results (HCCode) section. COMPREHENSIVE METABOLIC STAT 12/20/2019 Malignant Resu lts for PANEL 12:00 AM CDT neoplasm of this procedure overlapping sites are in the of bladder results (HCCode) section. CBC W ABSOLUTE STAT 12/20/2019 Malignant Results for NEUTROPHIL COUNT 12:00 AM CDT neoplasm of this proced ure overlapping sites are in the of bladder results (HCCode) section. MYOCARD PERFUSION - Routine 12/19/2019 Essential Results for LEXISCAN 10:51 AM CDT hypertension this procedure Dyslipidemia are in the Precordial pain results Impaired mobilit y section. Malignant neoplasm of overlapping sites of bladder (HCCode) HUBBARD (dyspnea on exertion) ECHO, COMPLETE Routine 12/19/2019 Precordial pain Results for 8:44 AM CDT Malignant this procedure neoplasm of are in the overlapping sites results of bladder section. (HCCode) HUBBARD (dyspnea on exertion) EJECTION FRACTION RESULT Routine 12/19/2019 Res ults for this procedure are in the results section. ELECTROCARDIOGRAM Routine 12/13/2019 Essential COMPLETE 1:09 PM CDT hypertension Dyslipidemia Precordial pain MAGNESIUM STAT 12/06/2019 Malignant Results for 9:22 AM CDT neoplasm of this procedure overlapping sites are in the of bladder results (HCCode) section. COMPREHENSIVE METABOLIC STAT 12/06/2019 Malignant Resu lts for PANEL 9:22 AM CDT neoplasm of this procedure overlapping sites are in the of bladder results (HCCode) section. CBC W/AUTO DIFF WITH STAT 12/06/2019 Malignant Results for PLATELETS 9:22 AM CDT neoplasm of this procedure overlapping sites are in the of bladder results (HCCode) section. MAGNESIUM STAT 11/22/2019 Malignant Results for 8:42 AM CDT neoplasm of this procedure overlapping sites are in the of bladder results (HCCode) section. COMPREHENSIVE METABOLIC STAT 11/22/2019 Malignant Resu lts for PANEL 8:42 AM CDT neoplasm of this procedure overlapping sites are in the of bladder results (HCCode) section. CBC W ABSOLUTE STAT 11/22/2019 Malignant Results for NEUTROPHIL COUNT 8:42 AM CDT neoplasm of this proced ure overlapping sites are in the of bladder results (HCCode) section. MAGNESIUM STAT 11/08/2019 Malignant Results for 8:29 AM CDT neoplasm of this procedure overlapping sites are in the of bladder results (HCCode) section. COMPREHENSIVE METABOLIC STAT 11/08/2019 Malignant Resu lts for PANEL 8:29 AM CDT neoplasm of this procedure overlapping sites are in the of bladder results (HCCode) section. ANG,TUNNEL CATH,CENTRAL Routine 11/01/2019 Resu lts for INST W 3:08 PM CDT this procedure are in the results section. APTT Routine 11/01/2019 Results for 9:45 AM CDT this procedure are in the results section. PROTIME-INR Routine 11/01/2019 Results for 9:45 AM CDT this procedure are in the results section. CBC W/AUTO DIFF WITH STAT 11/01/2019 Malignant Results for PLATELETS 9:45 AM CDT neoplasm of this procedure overlapping sites are in the of bladder results (HCCode) section. CT CHEST W CONTRAST Routine 10/27/2019 Results for 1:15 PM CDT this procedure are in the results section. SURGICAL PATHOLOGY Routine 10/14/2019 Results f or REPORT 9:26 AM CDT this procedure are in the results section. CT ABDOMEN PELVIS W WO Routine 10/12/2019 Resul ts for CONTRAST 3:47 PM CDT this procedure are in the results section. CHEST 2 VIEWS Routine 10/12/2019 Results for 3:12 PM CDT this procedure are in the results section. from Last 3 Months Results XR LUMBAR SPINE 2 VIEWS AP AND LAT (01/06/2020 3:56 PM CDT) Specimen Narrative Performed At Lumbar Spine Radiographs: 3 views [facility] HISTORY: Pain COMPARISON: None available. DISCUSSION: [...] arthropathy. IMPRESSION: No acute radiographic abnormality. Multilevel [id number]-[id number] degenerative changes. Signed by: Dr. Ad Landa [...] arthropathy. IMPRESSION: No acute radiographic abnormality. Multilevel [id number] degenerative changes. Signed by: Dr. Ad Landa MD on 01/05 4:07 PM Performing Organization Address City/State/Zipcode Phone Number [facility] [address] [facility] [place] [address] CBC W ABSOLUTE NEUTROPHIL COUNT (12/20/2019 12:00 AM CDT)Only the most recent of 2 resultswithin the time period is included. WHITE BLOOD CELL COUNT 11.2 (H) 3.5 - 10.0 CPL K/UL RED BLOOD CELL COUNT 4.25 3.80 - 5.20 CPL M/UL HEMOGLOBIN 12.5 12.0 - 16.0 CPL G/DL HEMATOCRIT 38.3 35.0 - 46.0 CPL % MEAN CORPUSCULAR 90.1 80.0 - 99.0 CPL VOLUME fL MEAN CORPUSCULAR 29.4 25.0 - 34.0 CPL HEMOGLOBIN PG MEAN CORPUSCULAR 32.6 31.0 - 36.0 CPL HEMOGLOBIN CONC G/DL RED CELL DISTRIBUTION 18.1 (H) 11.5 - 15.0 CPL WIDTH % NEUTROPHILS % 51Comment: 40.0 - 75.0 CPL SEGMENTED % NEUTROPHILS, MANUAL DIFFERENTIAL. BANDS % 5 0.0 - 8.0 % CPL LYMPHOCYTES % 32 20.0 - 45.0 CPL % MONOCYTES % 9 4.0 - 12.0 % CPL EOSINOPHILS % 1 0.0 - 7.0 % CPL BASOPHILS % 1 0.0 - 2.0 % CPL METAMYELOCYTES PERCENT 1 (H) 0.0 % CPL PLATELET COUNT 259 130 - 400 CPL K/UL NEUTROPHILS ABSOLUTE 6.38 1.50 - 7.50 CPL COUNT K/UL COMMENTS (NOTE) CPL Comment: FEW ELLIPTOCYTES SLIGHT ANISOCYTOSIS PLATELETS APPEAR ADEQUATE PLATELETS APPEAR NORMAL TESTING PERFORMED AT CLINICAL PATHOLOGY [facility] [address] [facility] [address] [place] [address] CLIA NO. [id number] Unless Otherwise Indicated, All Testing Pe rformed At: [facility], [address] [place] [address], [place] [address] Library Technician: Joe Chavez CLIA Number [id number] [place]. [id number] Specimen Blood Narrative Performed At [facility] Performing Organization Address City/[facility]/Zipcode Phone Number [facility] [address] [place] [id number] MAGNESIUM (12/20/2019 12:00 AM CDT)Only the most recent of4 resultswithin the time period is included. Pathologist Sig nature MAGNESIUM 2.2 1.6 - 2.6 MG/DL [facility] Comment: TESTING PERFORMED AT [facility]ICAL [facility]Y [facility] [employer], [facility]. [address] [address] CLIA NO. [id number] Unless Otherwise Indicated, All Testing Pe rformed At: [facility], [address] [place] [address] Library Technician: Joe Chavez CLIA Number [id number] [facility] [place]. [id number] Specimen Blood Narrative Performed At [facility] Performing Organization Address [facility]/Zipcode Phone Number [facility] [address] [place] [phone] COMPREHENSIVE METABOLIC PANEL (12/20/2019 12:00 AM CDT)Only the most recent of4 resultswithin the time period is included. GLUCOSE 97 70 - 99 MG/DL CPL BLOOD UREA NITROGEN 19 8 - 23 MG/DL CPL CREATININE 0.84 0.60 - 1.30 CPL MG/DL EGFR AA 79 >60 CPL ML/MIN/1.73 EGFR 68 >60 CPL ML/MIN/1.73 BUN/CREAT RATIO 23 6 - 28 RATIO CPL SODIUM 141 133 - 146 CPL MEQ/L POTASSIUM 5.0 3.5 - 5.4 CPL MEQ/L CHLORIDE 101 100 - 112 CPL MEQ/L CO2 28 21 - 30 MEQ/L CPL CALCIUM 9.9 8.5 - 10.5 CPL MG/DL PROTEIN TOTAL 7.0 6.1 - 8.1 CPL G/DL ALBUMIN 4.7 3.4 - 4.8 CPL G/DL GLOBULINS, SERUM, 2.3 1.9 - 3.7 CPL TOTAL G/DL A/G RATIO 2.0 1.0 - 2.6 CPL RATIO BILIRUBIN TOTAL 0.3 <=1.2 MG/DL CPL ALKALINE 99 30 - 132 U/L CPL PHOSPHATASE AST (SGOT) 24 7 - 56 U/L CPL ALT (SGPT) 17 3 - 47 U/L [facility] Comment: TESTING PERFORMED AT CLINICAL PATHOLOGY [employer], [address] [place] [address] CLIA NO. [id number] Unless Otherwise Indicated, All Testing Pe rformed At: [facility], [address] [place] [address] Library Technician: Joe Chavez CLIA Number [id number] [facility] [place]. [id number] Specimen Blood Narrative Performed At [facility] Performing Organization Address City/State/Zipcode Phone Number [address] [address] MYOCARD PERFUSION - LEXISCAN (12/19/2019 10:51 AM CDT) Specimen Impressions Performed At : 1. Normal myocardial perfusion study. 2. No Regadenoson ( Lexiscan) induced pe rfusion defects suggestive of ischemia 3. Normal LV size, EF of 73 % with leslie l regional wall motion and left ventricular thickening. Interpreting Physician: Bakari Lai MD Narrative Performed At This result has an attachment that is no t available. Ht Readings from Last 1 Encounters: 12/14/19 5' 2" (1.575 m) Wt Readings from Last 1 Encounters: 12/14/19 155 lb (70.3 kg) Referring Provider: Manny Wise MD Indication: 1. Essential hypertension 2. Dyslipidemia 3. Precordial pain 4. Impaired mobility 5. Malignant neoplasm of overlapping sites of bladder (HCCode) 6. HUBBARD (dyspnea on exertion) Procedure: Pharmacologic stress testing was performed with intra- venous Regadenoson (Lexiscan) 0.4 mg over 10 seconds. The heart rate was 50 at baseline and ainsley to 108 beats per minute during the regadenoson (L exiscan) infusion. Blood pressure was 133/78 mm Hg at baseline and 103/ 59 at peak pharmacologic effect. The stress was adequate. The pat ient did develop significant symptoms, which included flushing and dysp yasmin. 50 mg IV aminophylline administered. The resting electrocardiogram demonstrated sinus darya cardia with no AV Block and no arrhythmias. Repolarization at baseline w as normal. With the pharmacologic stressor, there were no ischemic EKG nolvia nges noted. Arrhythmias did not occur. Myocardial perfusion imaging was performed at rest saurabh roximately 60 minutes per protocol following the intravenous injecti on of 5.46 mCi of Tc-99m tetrofosmin. At peak pharmacologic effect, the patient was intravenously injected with 15.63 mCi of Tc-99m tetrof sj. Gating post-stress tomographic imaging was performed approxim ately 60 minutes after stress. Findings: The study quality is adequate. No attenuation artifact was present. Left ventricular cavity is noted to be of normal size at stress and at rest. There is not evidence of extra cardiac activity. There is normal tracer distribution during stress and at rest. Quantitative results: Summed Stress Score=0; Summed Rest Score=0; Summed Dif ference Score 0 The post stress left ventricular ejection fraction is 73 % with normal regional wall motion and left ventricular thickening. The left ventricle is normal in size. TID Ratio: Normal Procedure Note Bakari Lai MD - 12/19/2019 3:00 PM C DT Ht Readings from Last 1 Encounters: 12/14/19 5' 2" (1.575 m) Wt Readings from Last 1 Encounters: 12/14/19 155 lb (70.3 kg) Referring Provider: Manny Wise M D Indication: 1. Essential hypertension 2. Dyslipidemia 3. Precordial pain 4. Impaired mobility 5. Malignant neoplasm of overlapping sit es of bladder (HCCode) 6. HUBBARD (dyspnea on exertion) Procedure: Pharmacologic stress testing was perform ed with intra-venous Regadenoson (Lexiscan) 0.4 mg over 10 seconds. The heart rate was 50 at baseline and ainsley to 108 beats per minute during the regadenoson (Lexiscan) infusion. Blood pressure was 133/78 mm Hg at basel ine and 103/59 at peak pharmacologic effect. The stress was adequate. The patient did develop significant symptoms, which included flushing and dyspnea. 50 mg IV aminophylline administered. The resting electrocardiogram demonstrat ed sinus bradycardia with no AV Block and no arrhythmias. Repolarization at baseline was normal. With the pharmacologic stressor, there were no ischemic EKG changes noted. Arrhythmias did not occur. Myocardial perfusion imaging was perform ed at rest approximately 60 minutes per protocol following the intravenous injection of 5.46 mCi of Tc-99m tetrofosmin. At peak pharmacologic effect, the patient was intravenously injected with 15.63 mCi of Tc-99m tetrofosmin. Gating post-stress tomographic imaging was performed approximately 60 minutes after stress. Findings: The study quality is adequate. No attenuation artifact was present. Lef t ventricular cavity is noted to be of normal size at stress and at rest. There is not evidence of extra cardiac activity. There is normal tracer distribution duri ng stress and at rest. Quantitative results: Summed Stress Score=0; Summed Rest Score =0; Summed Difference Score 0 The post stress left ventricular ejectio n fraction is 73 % with normal regional wall motion and left ventricular thickening. The left ventricle is normal in size. TID Ratio: Normal IMPRESSION: 1. Normal myocardial perfusion study. 2. No Regadenoson ( Lexiscan) induced pe rfusion defects suggestive of ischemia 3. Normal LV size, EF of 73 % with leslie l regional wall motion and left ventricular thickening. Interpreting Physician: Bakari Lai MD ECHO, COMPLETE (12/19/2019 8:44 AM CDT) Pathologist [facility] nature REPORT DIGISONICS Pat.Name: ALEXANDRIA GONSALES AL Pat.ID: [id number] .Date: 12/19/2019 Refer.MD: MANNY WISE Exam Time: 9:08:00 AM Study Type:Routine Echo Height: 62in Weight: 155lb BSA: 1.72 m2 Age: 2 1945,74Y Sex: FEMALE BP: 138/78 HR: 55 bpm Sonogrphr: BEENA Morelos Echo Event ID:[id number] [facility] Order ID: [id number] Reason for Study:Cardiac evaluation, LV function asses sment History / Clinical:HTN, chest pain Procedures:[id number],COMPLETE Race: ++++++++++++++++++++++++++++++++++++ SUMMARY: ++++++++++++++++++++++++++++++++++++ 1. Left ventricular chamber size (by vol index) is nor mal. No evidence of LV hypertrophy. All of the LV segments contract nor asya. Global LV systolic function is normal. LVEF by quantitative asse ssment is normal (> 60%). Grade 1 diastolic dysfunction (impaired relax ation and low-normal LA pressure). 2. The right ventricular chamber size and systolic fun ction are within normal limits. 3. No significant valvular abnormality 4. Estimated Peak systolic PA pressure is 25-30 mm Hg. No prior exam available for comparison. ++++++++++++++++++++++++++++++++++++ FINDINGS: ++++++++++++++++++++++++++++++++++++ Rhythm/BP: Sinus bradycardia during the exam. LV: All of the LV segments contract normally. Global LV systolic function is normal. Left ventricular chamber size (by vol index) is normal. No evidence of LV h ypertrophy. LVEF by quantitative assessment is normal (> 60%). Grade 1 diastolic dysfunction (impaired relax ation and low-normal LA pressure). LA: LA size is normal. RV: The right ventricular chamber size and sy stolic function are within normal limits. RA: RA cavity size is normal. AV: No evidence of aortic stenosis. A trace o f aortic regurgitation. Tri-leaflet Aortic Janie ve. MV: Mild MV leaflet thickening. A trace of mi tral regurgitation. TV: Normal TV structure and function. Mild tr icuspid regurgitation. Estimated Peak systoli c PA pressure is 25-30 mm Hg. PV: A trace of pulmonary regurgitation. Leslie l PV structure and function by limited views and Doppler . AO: Aortic root size (Sinus of Valsalva diame ter) is normal. Pericard: No pericardial effusion is visualized. Systemic Veins: The estimated RA pressure by IVC dynam ics 0-5 mmHg. Comparison: No prior exam available for comparison. Quality: Technically adequate exam. ++++++++++++++++++++++++++++++++++++ MEASUREMENTS: ++++++++++++++++++++++++++++++++++++ 2D Left Ventricle LVIDd 5.1 cm (3.6-5.2) ESV (BP) 29.6 cc Index 17.2 cc/m2 LVIDs 3 cm (2.3-3.9) EF (BP) 66 % LV%fs 42.2 % (18-42) LV SV BP 57.5 cc EDV (BP) 87.1 cc Index 50.6 cc/m2 Left Atrium LA a-p 3.4 cm LAESV ( BP) 59.6 cc Index 34.7 cc/m2 LA Biplane LA VolBP 54.6 ml Index 31.8 ml/m2 Right Atrium RA SysArea 10.7 cm2 RA SysVol 20.8 cc Ventricular Septum IVSd 0.9 cm (0.6-1.1) LVPW LVPWd 1.1 cm (0.6-1.1) Aorta Ao Rtd 3.3 cm (1.7-3.4) Index 1.9 cm/m2 Ao Asc 3.7 cm (2.1-3.4) Index 2.2 cm/m2 LVOT LVOT 1.7 cm Ratios IVS/LVPW 0.8 Right Ventricle Right Ventricle 3.6 cm DOPPLE R AV Forward Flow AV pkVel 115 cm/s (100-170) AV TVI 29.8 cm AV mnVel 80 c m/s Area (TVI) 1.9 cm2 (3-5) AV pkPG 5 mmHg Area (V el) 2 cm2 AV mnPG 3 mmHg MV Forward Flow MV DeTm 261 ms M V pkA 89.1 cm/s MV pkE 81.8 cm/s (60-130) MV E/A 0.9 LVOT LVOT SV 56 cc L VOT TVI 24.8 cm LVOT MnVel 72.2 cm/s LVOT PkVel 102 cm/s LVOT MnPG 2 mmHg LVOT PkP G 4 mmHg RV Sm RV Sm Issa 16.4 cm/s Left Ventricle LmLat Em 8.8 cm/s LmLat E/E m 9.3 LmSep Em 7.9 cm/s LmSep E/E m 10.3 Tricuspid Valve TV Issa 254.2 cm/s MMODE TAPSE TAPS Dim 2.5 cm Signed 12/19/2019 09:27 AM Bakari Lai M.D. Specimen Performing Organization Address City/State/Zipcode Phone Number [facility] [address] [place] [place] [address] DIGISONICS EJECTION FRACTION RESULT (12/19/2019) Pathologist Sig nature Ejection Fraction 60 55 - 75 % CBC W/AUTO DIFF WITH PLATELETS (12/06/2019 9:22 AM CDT)Only the most recent of2 resultswithin the time period is included. WHITE BLOOD CELL 12.1 (H) 3.5 - 10.0 CPL COUNT K/UL RED BLOOD CELL COUNT 4.44 3.80 - 5.20 CPL M/UL HEMOGLOBIN 12.9 12.0 - 16.0 CPL G/DL HEMATOCRIT 38.5 35.0 - 46.0 % CPL MEAN CORPUSCULAR 86.7 80.0 - 99.0 CPL VOLUME fL MEAN CORPUSCULAR 29.1 25.0 - 34.0 CPL HEMOGLOBIN PG MEAN CORPUSCULAR 33.5 31.0 - 36.0 CPL HEMOGLOBIN CONC G/DL RED CELL 16.2 (H) 11.5 - 15.0 % CPL DISTRIBUTION WIDTH NEUTROPHILS % 48Comment: 40.0 - 75.0 % CPL SEGMENTED NEUTROPHILS, MANUAL DIFFERENTIAL. BANDS % 8 0.0 - 8.0 % CPL LYMPHOCYTES % 30 20.0 - 45.0 % CPL MONOCYTES % 7 4.0 - 12.0 % CPL EOSINOPHILS % 1 0.0 - 7.0 % CPL BASOPHILS % 4 (H) 0.0 - 2.0 % CPL MYELOCYTES % 2 (H) 0.0 % CPL PLATELET COUNT 188 130 - 400 CPL K/UL COMMENTS (NOTE) CPL Comment: FEW REACTIVE LYMPHOCYTES SLIGHT ANISOCYTOSIS SLIGHT POLYCHROMASIA FEW STOMATOCYTES PLATELETS APPEAR ADEQUATE PLATELETS APPEAR NORMAL TESTING PERFORMED AT [facility], [facility]. [address] [address] CLIA NO. [id number] Unless Otherwise Indicated, All Testing Pe rformed At: [facility], [address] [place] [address] Library Technician: Joe Chavez CLIA Number [id number] [place]. [id number] Specimen Blood Performing Organization Address City/State/Zipcode Phone Number [address] [address] ANG,TUNNEL CATH,CENTRAL INST W (11/01/2019 3:08 PM CDT) Specimen Impressions Performed At IMPRESSION: [facility] Insertion of right-sided power-injectabl e single-lumen tunneled [...] was stored. Port placed: Bard Catheter size (St Helenian): 6 Catheter flush: Heparin (100 units/mL) Closure [...] Madalyn Nicole MD Report Verified Date/Time: 11/01/2019 15:29:20 Reading Location: [place] [address] Angio Body Reading Room Electronically signed by: MADALYN NICOLE MD o n 11/01/2019 03:29 PM Narrative Performed At FINAL REPORT [facility] PROCEDURE: Venous port placement Procedural Personnel Attending physician(s): Madalyn Nicole MD Fellow physician(s): Jordin Lopez MD Resident physician(s): None [employer](s): Neema Samano MD Pre-procedure diagnosis: Bladder cancer Post-procedure diagnosis: Same Indication: Administration of chemothera py Additional clinical history: None Complications: No immediate complication s. Procedure Note Luiz, Rad Results In - 11/01/2019 3:31 P M CDT FINAL REPORT PROCEDURE: Venous port placement Procedural Personnel Attending physician(s): Madalyn Nicole MD Fellow physician(s): Jordin Lopez MD Resident physician(s): None [employer](s): Neema Samano MD Pre-procedure diagnosis: Bladder cancer Post-procedure diagnosis: Same Indication: Administration of chemothera py Additional clinical history: None Complications: No immediate complication s. IMPRESSION IMPRESSION: Insertion of right-sided power-injectabl e single-lumen [...] was stored. Port placed: Bard Catheter size ([place] Helenian): 6 Catheter flush: Heparin (100 units/mL) Closure [...] 10 Standardized report: [email or web address] Attestation Signer name: Margauxkavya Guido I attest that I was present for the enti re procedure. I reviewed the stored images and agree with the report as written. Signed: Madalyn Nicole MD Report Verified Date/Time: 11/01/2019 1 5:29:20 Reading Location: [facility] P048 Angio Body Reading Room Performing Organization Address City/[facility] Phone Number [facility] [address] [place] [place] [address] APTT (11/01/2019 9:45 AM CDT) Pathologist Sig nature PARTIAL THROMBOPLASTIN 29.5 22.5 - 36.0 [facility] TIME seconds Specimen Performing Organization Address [facility] Phone Number [facility] (11/01/2019 9:45 AM CDT) Pathologist Sig nature PROTIME 13.5 11.9 - 14.[address] [facility] INR 1.1 <=5.9 [facility] Specimen Narrative Performed At Effective 12/15/2018: PT Reference Range Change [facility] New: 11.9-14.2 Previous: 11.7-14.7 RECOMMENDED COUMADIN/WARFARIN INR THERAP Y RANGES STANDARD DOSE: 2.0-3.0 Includes: PROPHYLAXIS for eileen ous thrombosis, systemic embolization; TREATMENT for venous thrombosis and/or pulmonary embolus. HIGH RISK: Target INR is 2.5-3.5 for patients wiht mec hanical heart valves. Performing Organization Address [facility] Phone Number [facility] CT CHEST W CONTRAST (10/27/2019 1:15 PM CDT) Specimen Impressions Performed At Impression: [facility] No evidence of metastatic disease in the chest. Signed: Davide Delatorre MD Report Verified Date/Time: 10/27/2019 13:26:23 Reading Location: [facility] [id number] Ortho Con sult Reading Room Narrative Performed At FINAL REPORT [facility] CT Chest with contrast History:Malignant neoplasm of bladder Comparison:none Technique: serial axial imaging was perf ormed following up to 100cc of non ionic iodinated intravenous contr ast as per departmental protocol. Multiplanar images are recon structed and reviewed when indicated. This CT examination is performed using o ne or more of the following dose reduction techniques: Automated exposure control, adjustment o f the mA and /or kV according to patient size, and/or use of iterative reconstruction technique. Findings: No mediastinal or hilar lymphadenopathy. Normal size heart. No pericardial effu светлана. No thoracic aortic aneurysm or dissectio n. No central pulmonary arterial filling defect. Patent central airways. No pleural eff usion or pneumothorax. Mild biapical lung scarring. The lungs are ot herwise clear. No significant findings in the partially imaged abdomen. No aggressive osseous lesion. Procedure Note Luiz, Rad Results In - 10/27/2019 1:28 P M CDT FINAL REPORT CT Chest with contrast [...] partially imaged abdomen. No aggressive osseous lesion. IMPRESSION Impression: No evidence of metastatic disease in the chest. Signed: Davide Delatorre MD Report Verified Date/Time: 10/27/2019 1 3:26:23 Reading Location: [address] Reading Room Performing Organization Address City/State/Zipcode Phone Number [facility] [address] [place] [place] [address] SURGICAL PATHOLOGY REPORT (10/14/2019 9:26 AM CDT) CASE REPORT Surgical Pathology Report Case: [id number] [facility] Authorizing Provider: Dikc Maharaj MD Collected: 10/14/2019 09:26 AM Ordering Location: [facility] PERIOPERATIVE Received: 10/14/2019 11:24 AM SERVICES Pathologist: Reinaldo Matta MD Specimens: A) - Bladder B iopsy, Right Wall, right posterior lateral wall blue light positive B) - Blad juan f Biopsy, Right Wall, right lateral wall C) - Blad juan f Biopsy, Right Wall, right anterior wall, blue light positive D) - Blad juan f Biopsy, dome, blue light positive E) - Blad juan f Biopsy, posterior midline, blue light negative F) - Blad juan f Biopsy, Left Wall, left lateral wall, blue light negative G) - Blad juan f Biopsy, Trigone, trigone, blue light negative H) - Blad juan f Biopsy, Right Wall, right posterior wall, previous resection site DIAGNOSIS A. URINARY BLADDER, RIGHT POSTERIOR LATERAL WALL, BIOP SY: [facility] - UROTHELIAL CARCINOMA, HIGH GRADE (WHO GRADE 3) , INVASIVE INTO LAMINA PROPRIA - NEGATIVE FOR LYMPH VASCULAR INVASION - MUSCULARIS PROPRIA IS NOT PRESENT B. URINARY BLADDER, RIGHT LATERAL WALL, BIOPSY: - UROTHELIAL CARCINOMA, HIGH GRADE (WHO GRADE 3) , INVASIVE INTO LAMINA PROPRIA - NEGATIVE FOR LYMPH VASCULAR INVASION - MUSCULARIS PROPRIA IS PRESENT AND NOT INVOLV ED BY TUMOR C. URINARY BLADDER, RIGHT ANTERIOR WALL, BIOPSY: - UROTHELIAL CARCINOMA, HIGH GRADE (WHO GRADE 3) , INVASIVE INTO LAMINA PROPRIA - NEGATIVE FOR LYMPH VASCULAR INVASION - MUSCULARIS PROPRIA IS PRESENT AND NOT INVOLV ED BY TUMOR D. URINARY BLADDER, DOME, BIOPSY: - NO PATHOLOGIC DIAGNOSIS - MUSCULARIS PROPRIA ABSENT E. URINARY BLADDER, POSTERIOR MIDLINE WALL, BIOPSY: - NO PATHOLOGIC DIAGNOSIS - MUSCULARIS PROPRIA PRESENT F. URINARY BLADDER, LEFT LATERAL WALL, BIOPSY: - NO PATHOLOGIC DIAGNOSIS - MUSCULARIS PROPRIA PRESENT G. URINARY BLADDER, TRIGONE, BIOPSY: - MILD CHRONIC INFLAMMATION, NEGATIVE FOR DYSPLA HERMAN OR CARCINOMA] - MUSCULARIS PROPRIA ABSENT H. URINARY BLADDER, RIGHT POSTERIOR WALL, PREVIOUS RES ECTION SITE, TURBT: - UROTHELIAL CARCINOMA, HIGH GRADE (WHO GRADE 3) , INVASIVE INTO MUSCULARIS PROPRIA - NEGATIVE FOR LYMPH VASCULAR INVASION - PRIOR RESECTION SITE CHANGE SEEN Signing Pathologist Direct Phone Line: NOSIS COMMENT The tumor is 90% of the plas macytoid type. No surface CIS is seen on any [facility] of the slides. It would be important in this case to consider the possibility of metastatic breast carcinoma which can m imic plasmacytoid variant of urothelial cancer, especially since there i s no associated urothelial carcinoma in situ in this case. CPT 60436 X 7, [address] STHyacinth TARANGO'Fatimah CLINICAL HISTORY Preop diagnosis: [facility] Malignant neoplasm of overlapping sites of bladder. SPECIMEN SOURCE A. Bladder biopsy, right wal l; B. Bladder biopsy, right wall; C. Bladder [facility] biopsy, right wall; D. Bladder biopsy; E. Bladder biop sy; F. Bladder biopsy, left wall; G. Bladder biopsy, trigone; H. Blad juan f biopsy, right wall GROSS DESCRIPTION A. Received in formalin labe led with the patient's name, accession number [facility] and "right posterior lateral wall, bladder biopsy" are two buck-pink tissue fragments measuring up to 0.2 cm in greatest dimension which are filtered and submitted in toto in A1. B. Received in formalin labeled with the patient's nam e, accession number and "right lateral wall, bladder biopsy" is a 0.3 x 0. 3 x 0.2 cm buck-pink tissue fragment which is filtered and submitted in tot o in B1. C. Received in formalin labeled with the patient's nam e, accession number and "right anterior wall, bladder biopsy" are two buck- pink tissue fragments measuring up to 0.3 cm in greatest dimension which are filtered and submitted in toto in C1. D. Received in formalin labeled with the patient's nam e, accession number and "bladder dome biopsy" is a 0.2 x 0.1 x 0.1 cm buck- pink tissue fragment which is filtered and submitted in toto in D1. E. Received in formalin labeled with the patient's nam e, accession number and "posterior midline bladder biopsy" is a 0.2 x 0.2 x 0.2 cm buck-pink tissue fragment which is filtered and submitted in tot o in E1. F. Received in formalin labeled with the patient's nam e, accession number and "left lateral wall bladder biopsy" is a 0.2 x 0.2 x 0.1 cm buck-pink tissue fragment which is filtered and submitted in tot o in F1. G. Received in formalin labeled with the patient's nam e, accession number and "bladder biopsy trigone" are two buck-pink tissue f ragments measuring up to 0.2 cm in greatest dimension which are filtered and submitted in toto in G1. H. Received in formalin labeled with the patient's nam e, accession number and "right posterior bladder wall biopsy" is a 2.4 x 1 .1 x 0.3 cm aggregate of buck-pink rubbery tissue which is entirely submitted in H2. PA/pl MICROSCOPIC Performed. [facility]Fatim[facility] DESCRIPTION Specimen Other (qualifier value) Performing Organization Address City/State/Zipcode Phone Number [facility] CT ABDOMEN PELVIS W WO CONTRAST (10/12/2019 3:47 PM CDT) Specimen Impressions Performed At Impression: [facility] Mild right-sided bladder wall thickening . No adenopathy or distant metastasis is i dentified. Signed: Beto Bianchi MD Report Verified Date/Time: 10/12/2019 16:53:35 Reading Location: [facility] C013X [facility] Reading Room Narrative Performed At FINAL REPORT [facility] CT of the abdomen and pelvis, with and w ithout contrast Clinical History: C67.8 Technique: CT of the abdomen and pelvis is performed before and after intravenous contrast administration. T his exam was performed according to our departmental [...] is identified. No adenopathy , or ascites. Procedure Note Luiz, Rad Results In - 10/12/2019 4:55 P M CDT FINAL REPORT CT of the abdomen [...] is identified. No adenopathy , or ascites. IMPRESSION Impression: Mild right-sided bladder wall thickening . No adenopathy or distant metastasis is i dentified. Signed: Beto Bianchi MD Report Verified Date/Time: 10/12/2019 1 6:53:35 Reading Location: [facility] C013X [facility] Reading Room Performing Organization Address City/State/Zipcode Phone Number [facility] [address] [place] [address] CHEST 2 VIEWS (10/12/2019 3:12 PM CDT) Specimen Impressions Performed At IMPRESSION: [facility] Right lower lung nodular opacities may r epresent superimposed vessels or granulomas. However in the setting of malignancy, a follow-up chest CT is suggested for further evalua tion. Diffuse osteopenia. Mild loss of vertebr al body height in the lower thoracic spine, age indeterminate, sugge st clinical correlation. Signed: Bina Drake MD Report Verified Date/Time: 10/13/2019 09:24:28 Reading Location: [place] Rad Reading [place] [address] Electronically signed by: MD varsha RUBIO n 10/13/2019 09:24 AM Narrative Performed At FINAL REPORT [facility] CHEST RADIOGRAPH - 2 VIEWS INDICATION: C67.8, [...] No evidence of free intra peritoneal air. Procedure Note Luiz, Rad Results In - 10/13/2019 9:27 A M CDT FINAL REPORT CHEST RADIOGRAPH - 2 [...] No evidence of free intra peritoneal air. IMPRESSION IMPRESSION: Right lower lung nodular opacities may r epresent superimposed vessels or granulomas. However in the setting of malignancy, a follow-up chest CT is suggested for further evalua tion. Diffuse osteopenia. Mild loss of vertebr al body height in the lower thoracic spine, age indeterminate, sugge st clinical correlation. Signed: Bina Drake MD Report Verified Date/Time: 10/13/2019 0 9:24:28 Reading Location: [facility] B01.625 Performing Organization Address City/State/Zipcode Phone Number [facility] [address] [place] [address] from Last 3 Months Insurance Payer Benefit Plan / Subscriber ID Effective Phone Address T ype Group Dates [facility] x[facility]xxx 2017-Pres P O BOX POS SHIELD [place] IN-AREA POS - [place] [id number] [place] [address] CARDIOVASCULAR CARE [facility] xxxxxxxxxxxx 2017-Pres [address] [place] PPO PROVIDERS ent Jess, [address] [place] [address]
--- OUTSIDE RECORDS SUMMARY | 2020-03-26 09:23 | XMS REPORT | Summary of Care ---
:1945 Author Organization [facility] Address [address] [id number] Care Team Providers Name Role Phone Lucy Kuo MD Primary Care Provider Reason for Visit Reason Comments Back Pain Consult, Test & Treat (Routine) Status Reason Specialty Diagnoses / Referred By Referred To Procedures Contact Contact Closed Physical Medicine Diagnoses Radiculopathy, lumbar region Left S1 trans luana Nestor Fuentes [facility] Procedures MS INJECT ANES/STEROID FORAMEN LUMBAR/SACRAL W IMG GUIDE ,1 LEVEL PMR INJECTION FLUORO W/ SURINDER Dumont MD Jr., MD [address] [address] Phone: Fax: Encounter Details Date Type Department Care Team Description 01/17/2020 Office Visit [facility] Nestor Fuentes Jr., Back Pain Physical Medicine & MD Rehabilitation [address] [place] [address] [address], [address] [place] [id number] [place] [address] [phone] Allergies Active Allergy Reactions Severity Noted Date Comments Sulfa Antibiotics Swelling High 10/04/2019 documented as of this encounter (statuses as of 01/17/2020) Medications Medication Sig Dispensed Refills Start Date [...] times daily. (CALCIUM CITRATE + D OR) [place]-3 Fatty Acids Take by mouth 0 Active [...] cystogram (HCCode) scheduled after the radical cystectomy. Hospital, Clinic, or Other Ordered Dose Route Frequency Start Date End Date Status Facility Administered Medication triamcinolone acetonide EP ONCE 01/17/202001/16 Ended (KENALOG-40) 40 mg/mL 40 mg, bupivacaine (PF) (MARCAINE) 0.5 % 1 mLIndications: Lumbosacral radiculopathy at S1 iohexol (OMNIPAQUE) 300 1 mL EP ONCE 01/17/202001/16 Ended MG/ML injection 1 mLIndications: Lumbosacral radiculopathy at S1 documented as of this encounter (statuses as of 01/17/2020) Active Problems Problem Noted Date Malignant neoplasm of overlapping sites of bladder (HC Code) 10/25/2019 documented as of this encounter (statuses as of 01/17/2020) Social History Tobacco Use Types Packs/Day Years [...] been in contact with No / Unsure 01/17/2020 7:43 AM CDT someone who was confirmed or suspected to have Coronavirus / COVID-19? documented as of this encounter Last Filed Vital Signs Vital Sign Reading Time Taken Comments Blood Pressure 124/78 01/17/2020 8:44 AM CDT Pulse 71 01/17/2020 8:44 AM CDT Temperature 36.6 C (97.8 F) 01/17/2020 8:44 AM CDT Respiratory Rate - - Oxygen Saturation - - Inhaled Oxygen Concentration - - Weight 70.3 kg (155 lb) 01/17/2020 8:44 AM CDT Height 157.5 cm (5' 2") 01/17/2020 8:44 AM CDT Body Mass Index 28.35 01/17/2020 8:44 AM CDT documented in this encounter Patient Instructions Patient InstructionsNestor Fuentes Jr., MD - 01/17/2020 8:00 AM Sp Fuentes Jr., MD [facility] [address], [place] [address] Today you had a spinal injection ACTIVITY: ? Avoid strenuous activity and lifting for 24 hours. Consult with your physician for any further instructions. ? If you have received sedation or pain medication, do not drive, drink alcohol, operate machinery, sign legal documents, or make any legal decisions for 24 hours. DAY OF TEST: ? You may resume your normal diet and take your regular medications unless directed otherwise. ? If you are tender over the site of the injection you may use an ice pack wrapped in a towel for 20minutes, 3-4 times per day. ? Do not apply heat to the area. ? No tub bath or soaking in water (pool, Jacuzzi, etc) for the rest of the day. ? Your usual pain may get slightly worse over the next 24-72 hours. Call for any unusual pain or discomfort beyond that time frame. ? You may experience prolonged drowsiness or confusion. Therefore, do not drive immediately after the procedure. ? There may be swelling, redness, drainage, or pain at the injection site or IV site. WHEN SHOULD I CALL SOMEONE? ? If you experience severe back pain, progressive numbness or weakness of your legs, loss of controlof your bladder or bowels, or signs of infection in the area of the injection or IV site, go to the nearest ER or call 911. ? With slight increase in pain,(which is possible) but no other neurological changes, you may call our office. However, if you have any doubts or concerns please go to the nearest ER. FOLLOW UP: Call the office for a follow up appointment in approximately 2 weeks if you do not havean appointment already scheduled or unless otherwise stated by physician. YOU MUST BRING YOUR PAIN LOG TO YOUR FOLLOW UP APPOINTMENT. IF NOT, YOUR APPOINTMENT MAY BE CANCELLED. documented in this encounter Progress Notes Nestor Fuentes Jr., MD - 01/17/2020 8:00 AM CDTDate: 01/17/2020 Pre-procedure diagnosis: S1 Acute Lumbar Radiculopathy Left) Post-procedure diagnosis: Same Procedure: 1) S1 Transforaminal Epidural Steroid injection(Left) 2) Fluoroscopic Guidance for needle placement Complications: None CONSENT: Today's procedure, its potential benefits as well as its risks and potential side effects were reviewed. Discussed risks of the procedure include bleeding, infection, nerve irritation or damage, reactions to the medications, headache, failure of the pain to improve, and exacerbation of the pain were explained to the patient, who verbalized understanding and who wished to proceed. Informed consent was signed. DESCRIPTION OF PROCEDURES: After written informed consent was obtained, the patient was taken to thefluoroscopy suite and placed in the prone position. Anatomical landmarks were identified by way of fluoroscopy in multiple views. Strict aseptic technique was utilized. A 22-gauge 3-1/2-inch needle was then incrementally advanced using multiple fluoroscopic views from an oblique approach into the Left posterior S1 foramen. Proper needle placement in the superior lateral aspect of the S1 posterior neuroforamen in an AP view was confirmed with the aid of fluoroscopy.Both AP and lateral views were used to confirm final needle placement. After negative aspiration, Omnipaque 300 contrast was injected which delineated epidural without vascular flow and a normal epidurogram under fluoroscopy in the lateral and AP view. After negative aspiration was reconfirmed, a 1.0mL of 0.5% Bupivicaine and 40 mg of kenalog was slowly injected into the epidural space. All needles were removed intact. Hemostasis was maintained. There were no complications. The area was cleaned and a Band-Aid placed as necessary. The patient tolerated the procedure well and all needles were removed intact. After a period of observation, the patient was noted to be hemodynamically stable and neurovascularly intact following the procedure as prior to the procedure, and was ultimately discharged to home with supervision in good condition. The patient was instructed to schedule an appointment in the office within 2 weeks. 1 cc of Omnipaque was used and 29 cc wasted. Nestor Fuentes Jr., MD documented in this encounter Plan of Treatment Date Type Specialty Care Team Description 01/18/2020 Appointment Urology Dick Jaimes MD [address] [facility] [address] [place], [place] [address] [phone] 01/26/2020 Confidential Psychiatry Zamzam Jerez MD [address] [place], [place] [address] [phone] 01/30/2020 Appointment Urology Dick Jaimes MD [address] [place], [place] [address] [phone] 02/28/2020 Office Visit Hematology and Oncology Colt Trotter MD [address], [address] [place], [place] [address] [phone] Health Maintenance Due Date Last Done Comments COLON CANCER SCREENING: COLONOSCOPY 1945 MAMMOGRAM ANNUAL 1945 TETANUS SHOT (ADULT) 1960 BMI FOLLOW UP PLAN 1963 HEPATITIS C SCREENING 1963 OSTEOPOROSIS SCREENING 2010 PNEUMOVAX >=65 (PPSV23) 2010 FLU VACCINE > 6 MONTHS 02/18/2020 FALL SCREEN 01/05/2021 01/06/2020 documented as of this encounter Results Not on filedocumented in this encounter Visit Diagnoses Diagnosis Lumbosacral radiculopathy at S1 - Primar y Thoracic or lumbosacral neuritis or radi culitis, unspecified documented in this encounter Administered Medications Medication Order MAR Action Action Date Dose Rate Site iohexol (OMNIPAQUE) 300 MG/ML Given by 01/17/2020 9:02 AM CDT 1 m L injection 1 mL 1 mL, Epidural, ONCE, 1 dose, 01/17/20 at 0915 triamcinolone acetonide (KENALOG-40) 40 Given by 01/17/2020 9:02 AM CDT mg/mL 40 mg, bupivacaine (PF) (MARCAINE) 0.5 % 1 mL Epidural, ONCE, 1 dose, 01/17/20 at 0915 documented in this encounter Insurance Payer Benefit Plan / Subscriber ID Effective Dates Phone Addre ss Type Group [employer] [facility] [place] xxxxxxxxxxxx 2017-Presen [address] POS BLUE [employer]IELD IN-AREA POS [place] [phone] [place] (Home) [place] [address] documented as of this encounter
--- OUTSIDE RECORDS SUMMARY | 2020-03-26 09:23 | XMS REPORT | Summary of Care ---
:1945 Author Organization [facility] [place] [address] Care Team Providers Name Role Phone Lucy Kuo MD Primary Care Provider Reason for Referral Infusion Clinic (Routine) Status Reason Specialty Diagnoses / Referred By Referred To Procedures Contact Contact Pending New Treatment Infusion Center Diagnoses Malignant neoplasm of overlapping sites of bladder (HCCode) Port-A-Cath in place Luther Trotter Infusion MD Eyad [facility] [address], [address] [place] [address] Radiology Services (Routine) Status Reason Specialty Diagnoses / Procedures Referred By Lucy will Referred To Contact Pending Radiology Diagnoses Malignant neoplasm of overlapping sites of bladder (HCCode) Luther Trotter, Radiology, [place] Procedures CT CHEST ABDOMEN PELVIS W CONTRAST [address], [facility] 1st Floor 7th Floor, [address] [place] [address] [place], [place] [address] Phone: Reason for Visit Reason Comments Follow Up Consult, Test & Treat (Routine) Status Reason Specialty Diagnoses / Referred By Referred To Procedures Contact Contact Authorized Oncology / Diagnoses 7 weeks f/u Connor Kuo Yen, [place] Hematology and Procedures ESTABLISHED OFFICE VISIT MD Eyad MD Oncology [address] [address] [facility], [facility] Floor, [place] [address] 7B Phone: [place], [place] [phone] Fax: Encounter Details Date Type Department Care Team Description 02/28/2020 Office Visit [facility] Luther Moreira MD Follow Up [facility] Lalit Garcia [address] [facility] 7th Floor, [address] [place] [address] [facility] [phone] 7th Floor, [address] [place] [address] Allergies Active Allergy Reactions Severity Noted Date Comments Sulfa Antibiotics Swelling High 10/04/2019 documented as of this encounter (statuses as of 02/28/2020) Medications Medication Sig Dispensed Refills Start Date End Date Status triamterene-hydrochloro Take 1 Cap by 0 Active thiazide (DYAZIDE) mouth every 37.5-25 MG per capsule [...] 0 Active COMPLEX 1 OR) daily. Calcium Citrate-Vitamin Take by mouth 0 Active D (CALCIUM CITRATE + D two times daily. OR) Dupont-3 Fatty Acids Take by mouth 0 Active (FISH OIL) 1200 MG CAPS daily. Lactobacillus Take by mouth 0 A ctive [...] 0 Active Lidocaine 0.5 % GEL Apply topically. 0 Active hydrOXYzine (ATARAX) 50 Take 1 Tab by 90 Tab 1 01/04/2020 Active MG tablet mouth 3 times daily as needed for Anxiety. mirtazapine (REMERON) Take 1 Tab by 30 Tab 1 01/26/2020 Active 15 MG tablet mouth nightly. levothyroxine TK 1 T PO D 0 01/31/2020 Act libby (SYNTHROID) 112 MCG tablet lorazepam (ATIVAN) 0.5 TK SS T PO TID 0 02/14/2020 Active MG tablet PRF HIGH ANXIETY documented as of this encounter (statuses as of 02/28/2020) Active Problems Problem Noted Date Port-A-Cath in place 02/28/2020 Malignant neoplasm of overlapping sites of bladder (HC Code) 10/25/2019 documented as of this encounter (statuses as of 02/28/2020) Social History Tobacco Use Types Packs/Day Years [...] Assigned at Date Recorded Not on file documented as of this encounter Last Filed Vital Signs Vital Sign Reading Time Taken Comments Blood Pressure 134/78 02/28/2020 11:22 AM CDT Pulse 63 02/28/2020 11:22 AM CDT Temperature 36.8 C (98.3 F) 02/28/2020 11:22 AM CDT Respiratory Rate - - Oxygen Saturation - - Inhaled Oxygen Concentration - - Weight 73.6 kg (162 lb 3.2 oz) 02/28/2020 11:22 AM CDT Height 157.5 cm (5' 2") 02/28/2020 11:22 AM CDT Body Mass Index 29.67 02/28/2020 11:22 AM CDT documented in this encounter Patient Instructions Patient InstructionsTimothy Aguilar MA - 02/28/2020 11:20 AM CDT [facility] SECTION OF ONCOLOGY/HEMATOLOGY [phone] FAX [phone] Please note that all labs and or imaging results will be discussed at the next office visit unless told otherwise. if a problem occurs after hours please contact our office and have physician partition notcher paged [phone] Patient Instructions: (to be completed before next visit) Refer to home PT Give daughter business card CT before next appt RTC 4 weeks with labs as well Please don't hesitate to call if you have any questions or concerns before your appt. TELL US ABOUT YOUR EXPERIENCE You may receive an email or letter from [facility] via our partner, Elian Hernández. This is a survey about your experience today. Your feedback is important to us so we can improve. If any question does not apply to your visit, please leave it blank. Our goal is to ensure you have an exceptional experience at [facility]. If for any reason you cannot rate your experience as very good, please let a member of our staff know so wecan make immediate improvements. 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 Here with daughter. Pt in wheelchair. C/o anxiety. Back on ativan from her home psychiatrist. Taking1 pill 3 times a day. Started 1 week ago. Apparently anxiety out of control She had a spinal injection done for her back pain, which helped but now pain starting to build. She is concerned. Using catheterization via quique. She does not feel comfortable with it. Appetite poor per daughter, but pt states "fine". Daughter states that pt's anxiety out of control. Oncology History of Present Illness: Marily Gonsales [...] she transferred to see Dr Mccurdy in [place], starting around 2017 pt believes. Last TURBT / cystoscopy was [...] report available but appears to be stable with no mets and slight right side bladder wall thickening 01/30/2020 surgery ([facility]/ [facility])- anterior pelvic exenteration/ PLND/ quique pouch FINDINGS: At exploration, there was no gross pelvic or iliac lymphadenopathies. We removed the anterior vaginal wall, but spared the lateral and posterior portion of the vagina and therefore the neurovascular bundles. The ovaries, fallopian tubes, uterus, and cervix were removed en bloc as an anterior pelvic exenteration. The cecum and ascending colon, and proximal transverse colon appeared normal as did the distal small bowel. Path: [id number] plasmacytoid/ signet ring cell HG UC URINARY BLADDER: Cystectomy, Anterior Exenteration(Bladder - J) 8th Edition - Protocol posted: 09/15/2018 SPECIMEN Procedure:Anterior exenteration TUMOR Tumor Site:Trigone Histologic Type:Urothelial carcinoma, 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 Histologic Grade:High-grade Tumor Size:Cannot be determined: MULTIFOCAL, LARGEST FOCIUS 1.5 CM Tumor Extension:Tumor invades perivesical soft tissue :Microscopically Lymphovascular Invasion:Not identified Tumor Configuration:Ulcerated MARGINS Margins:Uninvolved by invasive carcinoma and carcinoma in situ / noninvasive urothelialcarcinoma LYMPH NODES Number of Lymph Nodes Involved:0 Number of Lymph Nodes Examined:32 PATHOLOGIC STAGE CLASSIFICATION (pTNM, AJCC 8th Edition) Primary Tumor (pT):pT3a Regional Lymph Nodes (pN):pN0 Review of Systems: Review of Systems Constitutional: Positive for malaise/fatigue. Negative for diaphoresis, fever and weight loss. HENT: Positive for hearing loss. Eyes: Negative. Respiratory: Negative. Negative for cough, shortness of breath and wheezing. Cardiovascular: Positive for leg swelling. Gastrointestinal: Negative for nausea. Genitourinary: Negative. Negative [...] HX CATARACT-L HX CATARACT-R HX SECTION HX CONTINENT DIVERSION 01/30/2020 HX DILATION AND CURETTAGE OF UTERUS HX FOOT SURGERY 2009 Had bone spur removed then fracture- Rt foot HX RADICAL CYSTECTOMY 01/30/2020 HX TONSILLECTOMY HX TURBT 10/15/2019 HX TURBT 2016 HX TURBT 09/06/2019 T1b HX TURBT 01/18/2020 HX URETER REMOVAL x2 Social History: Social History Socioeconomic History Marital status: Spouse name: Not on file Number of children: Not on file Years of education: Not on file Highest education level: Not on file Occupational History Not on file Social Needs Financial resource strain: Not on file Food insecurity Worry: Not on file Inability: Not on file Transportation needs Medical: Not on file Non-medical: Not on file Tobacco Use Smoking status: Never Smoker Smokeless tobacco: Never Used Substance and Sexual Activity Alcohol use: Never Frequency: Never Drug use: Never Sexual activity: Not on file Lifestyle Physical activity Days per week: Not on file Minutes per session: Not on file Stress: Not on file Relationships Social connections Talks on phone: Not on file Gets together: Not on file Attends baptist service: Not on file Active member of club or organization: Not on file Attends meetings of clubs or organizations: Not on file Relationship status: Not on file Intimate partner violence Fear of current or ex partner: Not on file Emotionally abused: Not on file Physically abused: Not on file Forced sexual activity: Not on file Other Topics Concerns: Not on file Social History Narrative Not on file never smoker G[place] up in [facility] [place] to [employer] [facility] Denies secondhand tobacco exposure history Family History: Family History Problem Relation Name Age of Onset Breast Cancer Mother High Blood Pressure Mother Diabetes Father mother with breast cancer, ocean transportation intermediary survivor Oldest daughter with HL Allergies: Allergies [...] OR) Take by mouth 3 times daily. gabapentin (NEURONTIN) 300 MG capsule Take 500 mg by mouth daily. hydrOXYzine (ATARAX) 50 MG tablet Take 1 Tab by mouth 3 times daily as needed for Anxiety. 90 Tab 1 L-THEANINE OR Take 200 mg by mouth daily. Lactobacillus (PROBIOTIC ACIDOPHILUS OR) Take by mouth daily. lamoTRIgine 50 MG TBDP Take 50 mg by mouth two times daily. levothyroxine (SYNTHROID) 112 MCG tablet TK 1 T PO D levothyroxine (SYNTHROID) 125 MCG tablet Take 125 mcg by mouth daily. Lidocaine 0.5 % GEL Apply topically. lorazepam (ATIVAN) 0.5 MG tablet TK SS T PO TID PRF HIGH ANXIETY Magnesium 400 MG TABS Take by mouth. mirtazapine (REMERON) 15 MG tablet Take 1 Tab by mouth nightly. 30 Tab 1 Multiple Vitamins-Minerals (MULTIVITAMIN ADULT OR) Take by mouth daily. Dupont-3 Fatty Acids (FISH OIL) 1200 MG CAPS Take by mouth daily. potassium chloride (MICRO-K) 10 MEQ capsule Take 10 mEq by mouth daily. triamterene-hydrochlorothiazide (DYAZIDE) 37.5-25 MG per capsule Take 1 Cap by mouth every morning. Turmeric Curcumin 500 MG CAPS Take by mouth. No current facility-administered medications for this visit. Physical Exam: Vital Signs Height: 5' 2" (157.5 cm) Weight - Scale: 162 lb 3.2 oz (73.6 kg) Temp: 98.3 F (36.8 C) Temp Source: Oral Pulse: 63 Resting Heart Rate: 63 BP: 134/78 Patient Position: Sitting Cuff Size: regular BP Location: right arm Oxygen Therapy O2 Sat: 97 % O2 Flow Rate: Room Air Height and Weight BSA (Calculated - sq m): 1.79 sq meters BMI (Calculated): 29.7 Predicted Body Weight: 110.45 Body surface area is 1.79 meters squared. Wt Readings from Last 3 Encounters: 02/28/20 162 lb 3.2 oz (73.6 kg) 02/13/20 150 lb (68 kg) 01/26/20 154 lb 3.2 oz (69.9 kg) Physical Exam Constitutional: General: She is not in acute distress. Appearance: Normal appearance. She is not ill-appearing, toxic-appearing or diaphoretic. Comments: Anxious appearing WF NAD, AOX 3, in WC. HENT: Head: Normocephalic and atraumatic. Right Ear: External ear normal. Left Ear: External ear normal. Nose: Nose normal. No congestion or rhinorrhea. Mouth/Throat: Mouth: Mucous membranes are moist. Pharynx: No posterior oropharyngeal erythema. Eyes: General: No scleral icterus. Right eye: No discharge. Left eye: No discharge. Extraocular Movements: Extraocular movements intact. Conjunctiva/sclera: Conjunctivae normal. Neck: Musculoskeletal: Normal range of motion and neck supple. Cardiovascular: Rate and Rhythm: Normal rate. Pulses: Normal pulses. Heart sounds: No murmur. No friction rub. Comments: Right chest port. Left upper extremity PICC Pulmonary: Effort: Pulmonary effort is normal. No respiratory distress. Breath sounds: Normal breath sounds. No stridor. No wheezing, rhonchi or rales. Chest: Chest wall: No tenderness. Abdominal: General: Abdomen is flat. There is no distension. Palpations: Abdomen is soft. There is no mass. Tenderness: There is no abdominal tenderness. There is no right CVA tenderness, left CVA tenderness, guarding or rebound. Hernia: No hernia is present. Comments: Urostomy present Musculoskeletal: Normal range of motion. General: No swelling. Right lower leg: No edema. Left lower leg: No edema. Skin: General: Skin is warm and dry. Coloration: Skin is not jaundiced or pale. Findings: No bruising, erythema, lesion or rash. Neurological: Mental Status: She is alert and oriented to person, place, and time. Psychiatric: Mood and Affect: Mood normal. Behavior: Behavior normal. Comments: Anxious Labs: Lab Results Component Value Date WBC 8.9 02/28/2020 HGB 10.6 (L) 02/28/2020 HGB 10.5 (L) 01/30/2020 HCT 33.5 (L) 02/28/2020 HCT 31.0 (L) 01/30/2020 MCV 92.5 02/28/2020 PLT 332 02/28/2020 Lab Results Component Value Date ALT PENDING 02/28/2020 AST PENDING 02/28/2020 ALKPHOS PENDING 02/28/2020 BILITOT PENDING 02/28/2020 Lab Results Component Value Date CREATININE PENDING 02/28/2020 BUN PENDING 02/28/2020 NA PENDING 02/28/2020 K PENDING 02/28/2020 CL PENDING 02/28/2020 CO2 PENDING 02/28/2020 Images: reviewed Assessment: 74 y.o. 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 Started on ddMVAC NAC 11/08/2019, completed 4 cycles. 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 Anxiety Encouraged her to f/up with psychiatry 3. debilitation -home PT referral RTC 1 month with labs, CT Prior PORT flush same date Luther Trotter MD [facility] ManVideotape Operatorvisual merchandising assistant Department of Internal Medicine Section of Hematology/Oncology [phone] office documented in this encounter Plan of Treatment Date Type Specialty Care Team Description 03/01/2020 Clinical Support Urology 03/27/2020 Office Visit Hematology and Oncology Colt Trotter MD [address], [address] [place], [place] [address] [phone] Name Type Priority Associated Diagnoses Order S chedule CBC W/AUTO DIFF WITH Lab STAT Malignant neoplasm o f Ordered: 02/28/2020 PLATELETS overlapping sites of bladder (HCCode) COMPREHENSIVE METABOLIC Lab STAT Malignant neoplas m of Ordered: 02/28/2020 PANEL overlapping sites of bladder (HCCode) MAGNESIUM Lab STAT Malignant neoplasm of Ordere d: 02/28/2020 overlapping sites of bladder (HCCode) CT CHEST ABDOMEN PELVIS Imaging Routine Malignant neoplas m of 1 Occurrences starting W CONTRAST overlapping sites of 020 until bladder (HCCode) 02/27/2021 TSH Lab Routine Anxiety and depression Order ed: 02/28/2020 Name Type Priority Associated Diagnoses Order S chedule AMB REF TO Outpatient Referral Routine Malignant neoplasm of Ordered: [facility]ION [facility] overlapping sites of 02/17 bladder (HCCode) Port-A-Cath in place Health Maintenance Due Date Last Done Comments COLON CANCER SCREENING: COLONOSCOPY 1945 MAMMOGRAM ANNUAL 1945 TETANUS SHOT (ADULT) 1960 BMI FOLLOW UP PLAN 1963 HEPATITIS C SCREENING 1963 ZOSTER VACCINE (1 of 2) 1995 OSTEOPOROSIS SCREENING 2010 PNEUMOVAX >=65 (PPSV23) 2010 FLU VACCINE > 6 MONTHS 02/18/2020 FALL SCREEN 01/16/2021 01/17/2020 documented as of this encounter Results Not on filedocumented in this encounter Visit Diagnoses Diagnosis Malignant neoplasm of overlapping sites of bladder (HCCode) - Primary Malignant neoplasm of other specified si rema of bladder Anxiety and depression Dysthymic disorder Port-A-Cath in place Other postprocedural status documented in this encounter Insurance Payer Benefit Plan / Subscriber ID Effective Dates Phone Addre ss Type Group [facility] [id number] 2017-Presen [address] POS BLUE SHIELD IN-AREA [place] [phone] melia Elizalde (Home) [place] [address] documented as of this encounter
[2020-03-26] MEDS ORDERED: CEFTRIAXONE/SWI 1gm 1 GM/10 ML SYR ONE (09:57)
[2020-03-26] MEDS ORDERED: NA CHLORIDE 0.9% 1,000 ML ONE ×2 (09:57→11:46)
[2020-03-26 10:16] LABS: Urine Blood TRACE (NEG); Urine Glucose NEGATIVE (NEG); Urine Protein NEGATIVE (NEG); Urine Specific Gravity 1.015 (1.005-1.030); Urine pH 7.5 (5.0-7.0)
[2020-03-26 10:23] LABS: Absolute Lymphocytes (CBC) 1.7 K/uL (0.7-4.9); Basophils % 0.7 % (0-1.3); Hematocrit 36.7 % (36.0-45.0); Lymphocytes % 13.9 % (15.3-44.8); MPV 8.7 fL (7.6-11.3); Protime INR 1.21; RBC Red Blood Cell Count 4.34 M/uL (3.86-4.86)
--- NOTE | 2020-03-26 10:30 | RAD REPORT ---
EXAM DESCRIPTION: CT - CTHCSPWOC - 03/26/2020 10:14 am CLINICAL HISTORY: CONFUSED, head and neck injury COMPARISON: Head C Spine Mpr Wo Con dated 01/15/2019 TECHNIQUE: Axial 5 mm thick images of the head were obtained. Axial 2 mm thick images of the cervic al spine were obtained with sagittal and coronal reconstruction images generated and reviewed. All CT scans are performed using dose optimization technique as appropriate and may include automated exposure control or mA/KV adjustment according to patient size. FINDINGS: No intracranial hemorrhage, mass, edema or acute intracranial finding. No suspicion for ac karissa infarction. Atrophy and chronic ischemic changes match comparison. Ventricles are in proportion t o the volume loss. Mastoid air cells and paranasal sinuses are clear. No globe or orbit abnormality s een. Cervical bodies are normal in height. There is minimal retrolisthesis of C5 on C6 secondary to degene rative change. There is significant disc space narrowing at this level with anterior and posterior en dplate spurs. C3-4 disc space narrowing is present and has progressed slightly from December 2018. Canal is borderline stenotic at C5-6. No fracture or acute bony abnormality. Central canal detail is inher ently limited. No paraspinal mass or hematoma. IMPRESSION: Negative CT head examination for acute or significant finding. Atrophy and chronic ische julio changes match comparison. Cervical spine degenerative changes are present minimally progressive at C3-4. No acute findings seen .
--- NOTE | 2020-03-26 10:32 | RAD REPORT ---
EXAM DESCRIPTION: RAD - Chest Single View - 03/26/2020 10:25 am CLINICAL HISTORY: weakness, shortness of breath COMPARISON: December 2018 TECHNIQUE: AP portable chest image was obtained 03/26/2020 10:25 am . FINDINGS: Chronic interstitial pattern is seen matching comparison. Markings are accentuated slightl y due to shallow inspiration. No mass or consolidation seen. Right-sided Port-A-Cath has been placed since prior imaging. Heart and vasculature are normal. No measurable pleural effusion and no pneumoth orax. No acute bony abnormality seen. No acute aortic findings suspected. IMPRESSION: Chronic interstitial pattern accentuated by shallow inspiration. Chest is not substantially different but minimal edema or infiltrate could be masked by the chronic p attern.
--- NOTE | 2020-03-26 10:39 | RAD REPORT ---
EXAM DESCRIPTION: RAD - Hip Right 2 View - 03/26/2020 10:25 am CLINICAL HISTORY: PAIN COMPARISON: Abdomen Pelvis W Contrast dated 03/18/2016; CT ABDOMEN PELVIS WO CONTRAST dated 2 FINDINGS: AP and frog-leg views of the right hip were obtained. Lower lumbar degenerative changes are present only partially imaged on this study. No fracture of the right hemipelvis. No fracture or dislocation of the proximal right femur. There is a sclerotic focus in the intertrochanteric portion that has enlarged slightly from 2016. No AVN or focal head abnormal ity. No acute or destructive bony process seen. Numerous pelvic surgical clips are present. IMPRESSION: No fracture or acute bone finding. Sclerotic focus in the intertrochanteric right femur has enlarged but is not new from 2016 study. The se are typically benign sclerotic foci. Blastic metastatic lesion is unlikely but needs to be correla tom with any neoplastic surgical history.
[2020-03-26 11:02] LABS: Albumin 3.1 g/dL (3.4-5.0); Bilirubin Direct 0.1 mg/dL (0-0.2); Bilirubin Total 0.4 mg/dL (0.2-1.0); Magnesium 2.2 mg/dL (1.8-2.4); Protein, Total 7.1 g/dL (6.4-8.2); Troponin (Emerg Dept Use Only) 0.25 ng/mL (0.0-0.045)
[2020-03-26 11:03] LABS: Potassium 2.9 mmol/L (3.5-5.1)
[2020-03-26] MEDS ORDERED: ASPIRIN 81 MG CHEWABLE TABLET ONE (11:42)
[2020-03-26] MEDS ORDERED: KCL 20 MEQ/100 mL IVPB 20 MEQ/100 ML BAG IV ONE (11:42)
--- NOTE | 2020-03-26 12:05 | EDPHYS ---
Physician Documentation [facility] Name: Marily Gonsales Age: 74 yrs Sex: Female : 1945 Arrival Date: 03/26/2020 Time: 09:16 Bed 14 Private MD: ED Physician Kalyan Aguilera HPI: 03/26 10:24 This 74 yrs old Female presents to ER via EMS with complaints of Dizziness. ma2 10:24 The patient presents with feeling faint, generalized weakness, lightheadedness. Onset: ma2 The symptoms/episode began/occurred gradually, 2 day(s) ago. Associated signs and symptoms: Pertinent negatives: ataxia, chest pain, combativeness, diaphoresis, focal weakness. Severity of symptoms: At their worst the symptoms were mild in the emergency department the symptoms are unchanged. The patient has experienced similar episodes in the past. Historical: - Allergies: 09:24 Sulfa (Sulfonamide Antibiotics); bp - Home Meds: 09:24 atorvastatin 20 mg Oral tab 1 tab once daily [Active]; baclofen 10 mg Oral tab 1 tab 3 bp times per day [Active]; gabapentin 300 mg Oral cap 1 cap [Active]; levothyroxine 112 mcg oral tab 1 tab once daily [Active]; potassium chloride 10 mEq Oral TbER 1 tab once daily [Active]; Risperdal 0.25 mg Oral tab 2 tabs 2 times per day [Active]; Trimterene 37.5/ HCTZ 25 mg 1 cap PO DAILY [Active]; - PMHx: 09:24 Bladder cancer; Hypertension; Hypothyroidism; COPD; CHF; bp - Immunization history:: Adult Immunizations up to date. - Social history:: Smoking status: Patient denies any tobacco usage or history of. - Family history:: not pertinent. ROS: 10:24 Constitutional: Negative for fever, chills, and weight loss. ma2 10:24 All other systems are negative. Exam: 10:24 Constitutional: This is a well developed, well nourished patient who is awake, alert, ma2 and in no acute distress. Head/Face: Normocephalic, atraumatic. Eyes: Pupils equal round and reactive to light, extra-ocular motions intact. Lids and lashes normal. Conjunctiva and sclera are non-icteric and not injected. Cornea within normal limits. Periorbital areas with no swelling, redness, or edema. ENT: Nares patent. No nasal discharge, no septal abnormalities noted. Tympanic membranes are normal and external auditory canals are clear. Oropharynx with no redness, swelling, or masses, exudates, or evidence of obstruction, uvula midline. Mucous membranes moist. Neck: Trachea midline, no thyromegaly or masses palpated, and no cervical lymphadenopathy. Supple, full range of motion without nuchal rigidity, or vertebral point tenderness. No Meningismus. Chest/axilla: Normal chest wall appearance and motion. Nontender with no deformity. No lesions are appreciated. Cardiovascular: Regular rate and rhythm with a normal S1 and S2. No gallops, murmurs, or rubs. Normal PMI, no JVD. No pulse deficits. Respiratory: Lungs have equal breath sounds bilaterally, clear to auscultation and percussion. No rales, rhonchi or wheezes noted. No increased work of breathing, no retractions or nasal flaring. Abdomen/GI: Soft, non-tender, with normal bowel sounds. No distension or tympany. No guarding or rebound. No evidence of tenderness throughout. MS/ Extremity: Pulses equal, no cyanosis. Neurovascular intact. Full, normal range of motion. Neuro: Awake and alert, GCS 15, oriented to person, place, time, and situation. Cranial nerves II-XII grossly intact. Motor strength 5/5 in all extremities. Sensory grossly intact. Cerebellar exam normal. Normal gait. Vital Signs: 09:16 BP 93 / 66; Pulse 55; Resp 16; Temp 98; Pulse Ox 97% ; bp 09:40 BP 108 / 67; Pulse 57; Resp 17; Pulse Ox 98% ; bp 10:00 BP 95 / 59; Pulse 66; Resp 17; Pulse Ox 98% ; bp 11:00 BP 109 / 57; Pulse 63; Resp 15; Pulse Ox 96% ; bp 13:00 BP 88 / 65; Pulse 59; Resp 16; Pulse Ox 99% ; bp MDM: 09:26 Patient medically screened. [facility] 10:24 Differential diagnosis: generalized weakness, head injury, hypovolemia, near-syncope. [facility] 12:01 Data reviewed: vital signs, nurses notes. Counseling: I had a detailed discussion with ma2 the patient and/or guardian regarding: the historical points, exam findings, and any diagnostic results supporting the discharge/admit diagnosis, the presence of at least one elevated blood pressure reading (>120/80) during this emergency department visit, the need for outpatient follow up. Response to treatment: the patient's symptoms have markedly improved after treatment. 03/26 09:26 Order name: Basic Metabolic Panel nc2 03/26 09:26 Order name: CBC with Diff ma2 03/26 09:26 Order name: LFT's; Complete Time: 11:20 ma2 03/26 09:26 Order name: Magnesium; Complete Time: 11:20 ma2 03/26 09:26 Order name: NT PRO-BNP; Complete Time: 11:20 ma2 03/26 09:26 Order name: PT-INR; Complete Time: 11:20 ma2 03/26 09:26 Order name: Troponin (emerg Dept Use Only); Complete Time: 11:20 ma2 03/26 09:26 Order name: Basic Metabolic Panel; Complete Time: 11:20 EDMS 03/26 09:26 Order name: CBC with Automated Diff; Complete Time: 11:20 EDMS 03/26 10:08 Order name: Urine Dipstick--Ancillary (enter results); Complete Time: 10:24 eb 03/26 12:30 Order name: Basic Metabolic Panel EDMS 03/26 12:30 Order name: Basic Metabolic Panel EDMS 03/26 12:30 Order name: CBC with Automated Diff EDMS 03/26 12:30 Order name: CBC with Automated Diff EDMS 03/26 09:26 Order name: XRAY Chest (1 view); Complete Time: 11:20 ma2 03/26 09:27 Order name: Hip Right 2 View XRAY; Complete Time: 11:20 ma2 03/26 09:53 Order name: Head C Spine Mpr Wo Con; Complete Time: 11:20 EDMS 03/26 12:30 Order name: Potassium EDMS 03/26 12:30 Order name: Potassium EDMS 03/26 12:30 Order name: Troponin I EDMS 03/26 12:30 Order name: Troponin I EDMS 03/26 12:30 Order name: Troponin I EDMS 03/26 09:26 Order name: EKG; Complete Time: 09:27 ma2 03/26 09:26 Order name: Cardiac monitoring; Complete Time: 09:40 ma2 03/26 09:26 Order name: EKG - Nurse/Tech; Complete Time: 09:40 ma2 03/26 09:26 Order name: IV Saline Lock; Complete Time: 10:12 ma2 03/26 09:26 Order name: Labs collected and sent; Complete Time: 10:12 ma2 03/26 09:26 Order name: O2 Per Protocol; Complete Time: 09:40 ma2 03/26 09:26 Order name: O2 Sat Monitoring; Complete Time: 09:40 ma2 03/26 09:26 Order name: Urine Dipstick-Ancillary (obtain specimen); Complete Time: 10:11 ma2 03/26 12:30 Order name: Consistent Carb (ADA) 2000 Gabe EDMS 03/26 12:30 Order name: EKG Electrocardiogram EDMS 03/26 12:30 Order name: EKG Electrocardiogram EDMS 03/26 12:30 Order name: EKG Electrocardiogram EDMS 03/26 12:30 Order name: EKG Electrocardiogram EDMS Administered Medications: 09:45 Drug: NS 0.9% 1000 ml Route: IV; Rate: 1 bolus; Site: left hand; bp 09:45 Drug: Rocephin 1 grams Route: IV; Rate: calculated rate; Site: left hand; bp 13:38 Follow up: IV Status: Completed infusion; IV Intake: 50ml bp 11:30 Drug: Aspirin Chewable Tablet 324 mg Route: PO; bp 11:42 Follow up: Response: No adverse reaction bp 11:30 Drug: Potassium Chloride 20 mEq Route: IV; Rate: 50 ml/hr; Site: left hand; bp 13:39 Follow up: IV Status: Completed infusion; IV Intake: 100ml bp 11:40 Not Given (Physician Discretion): Potassium Chloride 10 mEq IV at calculated rate once; bp administer over 1-2 hours 11:40 Not Given (Physician Discretion): Potassium Chloride 10 mEq IV at calculated rate once; bp administer over 1-2 hours Disposition: 03/26/20 12:04 Hospitalization ordered by Connor Kuo for Inpatient Admission. Preliminary diagnosis are Non-ST elevation (NSTEMI) myocardial infarction, Severe sepsis without septic shock, Cystitis, unspecified without hematuria, Hypokalemia. - Bed requested for Telemetry/MedSurg (Inpatient). - Status is Inpatient Admission. iw - Condition is Stable. - Problem is new. - Symptoms are unchanged. Signatures: Dispatcher [employer] EDMS Kierra Benton RN RN iw Javad Reyna RN RN bp Alzahri, Mohammad, MD MD nc2 Shabnam Vu Corrections: (The following items were deleted from the chart) 09:53 09:27 Head Brain Wo Cont+CT.RAD.BRZ ordered. EDMS EDMS 09:53 09:27 C Spine Wo Con+CT.RAD.BRZ ordered. EDMS EDMS 13:13 12:04 Hospitalization Ordered by Connor Kuo MD for Inpatient Admission. Preliminary eb diagnosis is Non-ST elevation (NSTEMI) myocardial infarction; Severe sepsis without septic shock; Cystitis, unspecified without hematuria; Hypokalemia. Bed requested for Telemetry/MedSurg (Inpatient). Status is Inpatient Admission. Condition is Stable. Problem is new. Symptoms are unchanged. [facility] 14:06 13:13 03/26/2020 12:04 Hospitalization Ordered by Connor Kuo MD for Inpatient iw Admission. Preliminary diagnosis is Non-ST elevation (NSTEMI) myocardial infarction; Severe sepsis without septic shock; Cystitis, unspecified without hematuria; Hypokalemia. Bed requested for Telemetry/MedSurg (Inpatient). Status is Inpatient Admission. Condition is Stable. Problem is new. Symptoms are unchanged. eb
--- NOTE | 2020-03-26 12:05 | ER ---
Nurse's Notes [facility] Name: Marily Gonsales Age: 74 yrs Sex: Female : 1945 Arrival Date: 03/26/2020 Time: 09:16 Bed 14 Private MD: Diagnosis: Non-ST elevation (NSTEMI) myocardial infarction;Severe sepsis without septic shock;Cystitis, unspecified without hematuria;Hypokalemia Presentation: 03/26 09:16 Chief complaint: EMS states: FATIGUE AND DIZZINESS SINCE LAST PM. Coronavirus screen: bp At this time, the client does not indicate any symptoms associated with coronavirus-19. Ebola Screen: No symptoms or risks identified at this time. Initial Sepsis Screen: Does the patient meet any 2 criteria? No. Patient's initial sepsis screen is negative. Does the patient have a suspected source of infection? No. Patient's initial sepsis screen is negative. Risk Assessment: Do you want to hurt yourself or someone else? Patient reports no desire to harm self or others. Onset of symptoms is unknown. Care prior to arrival: IV initiated. 22 GA, in the left hand, Glucose check: 149. 09:16 Method Of Arrival: EMS: [facility] bp 09:16 Acuity: CORI 3 bp Triage Assessment: 09:24 General: Appears distressed, comfortable, Behavior is calm, cooperative, appropriate bp for age. Pain: Denies pain. EENT: No signs and/or symptoms were reported regarding the EENT system. Neuro: Reports dizziness. Cardiovascular: Rhythm is sinus bradycardia. Respiratory: Reports shortness of breath. GI: No signs and/or symptoms were reported involving the gastrointestinal system. : No signs and/or symptoms were reported regarding the genitourinary system. Derm: No deficits noted. Musculoskeletal: No deficits noted. Historical: - Allergies: 09:24 Sulfa (Sulfonamide Antibiotics); bp - Home Meds: 09:24 atorvastatin 20 mg Oral tab 1 tab once daily [Active]; baclofen 10 mg Oral tab 1 tab 3 bp times per day [Active]; gabapentin 300 mg Oral cap 1 cap [Active]; levothyroxine 112 mcg oral tab 1 tab once daily [Active]; potassium chloride 10 mEq Oral TbER 1 tab once daily [Active]; Risperdal 0.25 mg Oral tab 2 tabs 2 times per day [Active]; Trimterene 37.5/ HCTZ 25 mg 1 cap PO DAILY [Active]; - PMHx: 09:24 Bladder cancer; Hypertension; Hypothyroidism; COPD; CHF; bp - Immunization history:: Adult Immunizations up to date. - Social history:: Smoking status: Patient denies any tobacco usage or history of. - Family history:: not pertinent. Screenin:30 Abuse screen: Denies threats or abuse. Denies injuries from another. Nutritional bp screening: No deficits noted. Tuberculosis screening: No symptoms or risk factors identified. Fall Risk None identified. Assessment: 09:29 General: SEE TRIAGE NOTE. bp 10:00 Reassessment: PT TO CT WITH CRUCIBLE FURNACE TENDER. bp 10:20 Reassessment: PT RETURNED FROM CT. bp 11:00 Reassessment: TROP AND Luna MAN MD NOTIFIED AND AT B/S FOR RE-EVAL. bp 13:00 Reassessment: ADMIT COMPLETE, BED ASSIGNED. bp 13:34 Reassessment: REPORT TO ANANT RAYMUNDO FOR RM 220. bp Vital Signs: 09:16 BP 93 / 66; Pulse 55; Resp 16; Temp 98; Pulse Ox 97% ; bp 09:40 BP 108 / 67; Pulse 57; Resp 17; Pulse Ox 98% ; bp 10:00 BP 95 / 59; Pulse 66; Resp 17; Pulse Ox 98% ; bp 11:00 BP 109 / 57; Pulse 63; Resp 15; Pulse Ox 96% ; bp 13:00 BP 88 / 65; Pulse 59; Resp 16; Pulse Ox 99% ; bp ED Course: 09:16 Patient arrived in ED. bp 09:18 Triage completed. bp 09:23 Kalyan Aguilera MD is Attending Physician. ma2 09:24 Arm band placed on. bp 09:30 Javad Reyna, BREANNE is Primary Nurse. bp 09:30 Maintain EMS IV. Dressing intact. Good blood return noted. Site clean \T\ dry. Gauge \T\ bp site: 22 GAUGE LEFT HAND. 10:07 Urine collected: straight cath specimen, cloudy, EKG done, by ED staff, reviewed by [facility] Kalyan Aguilera MD. 10:08 Patient has correct armband on for positive identification. Placed in gown. Bed in low 5 position. Call light in reach. Side rails up X2. Warm blanket given. court recording monitor on. Pulse ox on. NIBP on. 10:08 Straight cath inserted, using sterile technique, 16 Fr. Specimen obtained. 5 10:13 Head C Spine Mpr Wo Con In Process Unspecified. EDMS 10:25 XRAY Chest (1 view) In Process Unspecified. EDMS 10:25 Hip Right 2 View XRAY In Process Unspecified. EDMS 12:04 Connor Kuo MD is Hospitalizing Provider. ma2 13:34 No provider procedures requiring assistance completed. Patient admitted, IV remains in bp place. Administered Medications: 09:45 Drug: NS 0.9% 1000 ml Route: IV; Rate: 1 bolus; Site: left hand; bp 09:45 Drug: Rocephin 1 grams Route: IV; Rate: calculated rate; Site: left hand; bp 13:38 Follow up: IV Status: Completed infusion; IV Intake: 50ml bp 11:30 Drug: Aspirin Chewable Tablet 324 mg Route: PO; bp 11:42 Follow up: Response: No adverse reaction bp 11:30 Drug: Potassium Chloride 20 mEq Route: IV; Rate: 50 ml/hr; Site: left hand; bp 13:39 Follow up: IV Status: Completed infusion; IV Intake: 100ml bp 11:40 Not Given (Physician Discretion): Potassium Chloride 10 mEq IV at calculated rate once; bp administer over 1-2 hours 11:40 Not Given (Physician Discretion): Potassium Chloride 10 mEq IV at calculated rate once; bp administer over 1-2 hours Intake: 13:38 IV: 50ml; Total: 50ml. bp 13:39 IV: 100ml; Total: 150ml. bp Outcome: 12:04 Decision to Hospitalize by Provider. ma2 13:34 Admitted to Med/surg accompanied by tech, via stretcher, room 220, with chart, Report bp called to ANANT RAYMUNDO 13:34 Condition: stable 13:34 Instructed on the need for admit. 14:06 Patient left the ED. iw Signatures: Dispatcher [employer] Kierra Carranza, Darshana Persaud RN [facility] Javad Reyna RN RN bp Kalyan Aguilera MD MD [facility]
[2020-03-26] MEDS ORDERED: KCL 20 MEQ/100 mL IVPB 20 MEQ/100 ML BAG IV SCH (13:00)
[2020-03-26] MEDS: D5.45NS W/KCL 20MEQ 20 MEQ/1,000 ML BAG IV SCH (14:15)
[2020-03-26 14:42] VITALS: BMI 28.3
[2020-03-26] MEDS ORDERED: ENOXAPARIN 40 MG/0.4 ML SQ ONE (18:26)
--- NOTE | 2020-03-26 19:46 | HP ---
Date of Admission: 03/26/2020 MARISA/MODL Voice ID: [id number] MTDD
[2020-03-26] MEDS: GABAPENTIN 300 MG CAP PO SCH (19:49)
[2020-03-26] MEDS: CEFTRIAXONE/SWI 1gm 1 GM/10 ML SYR IVP SCH (19:49)
[2020-03-26] MEDS: hydrOXYzine HCL 25 MG TAB PO SCH (19:50)
[2020-03-26] MEDS: RISPERIDONE 0.25 MG TABLET PO SCH (19:51)
[2020-03-26] MEDS: BACLOFEN 10 MG TAB PO SCH (19:51)
[2020-03-27] MEDS: D5.45NS W/KCL 20MEQ 20 MEQ/1,000 ML BAG IV SCH (01:13)
[2020-03-27 04:15] LABS: Absolute Lymphocytes (CBC) 1.7 K/uL (0.7-4.9); Basophils % 0.7 % (0-1.3); Hematocrit 33.8 % (36.0-45.0); Lymphocytes % 13.4 % (15.3-44.8); MPV 9.1 fL (7.6-11.3); RBC Red Blood Cell Count 3.99 M/uL (3.86-4.86)
[2020-03-27 04:33] LABS: Potassium 2.8 mmol/L (3.5-5.1)
[2020-03-27] MEDS ORDERED: KCL 20 MEQ/100 mL IVPB 20 MEQ/100 ML BAG IV SCH (05:00)
[2020-03-27] MEDS: LEVOTHYROXINE SOD 0.112 MG TAB PO SCH (05:02)
--- NOTE | 2020-03-27 05:21 | EKG ---
Test Date: 2020-03-26 Test Time: 09:45:06 Sap Bpc Developer: MIO MEASUREMENT RESULTS: Intervals: Rate: 50 PA: 140 QRSD: 102 QT: 456 QTc: 415 [place]: P: 51 PA: 140 QRS: 4 T: 61 INTERPRETIVE STATEMENTS: Sinus bradycardia with sinus arrhythmia Otherwise normal ECG Compared to ECG 09/01/2019 13:41:16 No significant changes Electronically Signed On 03-27-20 05:20:25 CDT by Honorio Aldridge
[2020-03-27] MEDS ORDERED: POTASSIUM CL 40 MEQ in NA CHLORIDE 0.9% 500 ML IV SCH (08:00)
[2020-03-27] MEDS: CEFTRIAXONE/SWI 1gm 1 GM/10 ML SYR IVP SCH ×2 (08:37→21:54)
[2020-03-27] MEDS: MAGNESIUM OXIDE 400 MG TAB PO SCH (08:38)
[2020-03-27] MEDS: ATORVASTATIN 20 MG TAB PO SCH (08:39)
[2020-03-27] MEDS: ASPIRIN EC 81 MG TAB PO SCH (08:39)
[2020-03-27] MEDS: ASCORBIC ACID 500 MG TABLET PO SCH (08:39)
[2020-03-27] MEDS: BACLOFEN 10 MG TAB PO SCH ×2 (08:39→21:54)
[2020-03-27] MEDS: LOSARTAN POTASSIUM 50 MG TABLET PO SCH (08:39)
[2020-03-27] MEDS: VITAMIN B COMPLEX 1 CAP PO SCH (08:41)
[2020-03-27] MEDS: hydrOXYzine HCL 25 MG TAB PO SCH ×2 (08:41→21:57)
[2020-03-27] MEDS: RISPERIDONE 0.25 MG TABLET PO SCH ×2 (08:42→21:54)
[2020-03-27] MEDS ORDERED: lamoTRIgine 25 MG TAB PO SCH (09:00)
[2020-03-27] MEDS ORDERED: LOSARTAN POTASSIUM 50 MG TABLET PO SCH (09:00)
[2020-03-27] MEDS ORDERED: ONDANSETRON 4 MG/2 ML VIAL IV PRN (09:56)
--- NOTE | 2020-03-27 10:34 | CON ---
Date of Consultation: 03/27/2020 Reason For Consultation: Elevated troponin. History Of Present Illness: Ms. Gonsales is a 74-year-old woman without any previous coronary inte rvention. She has a history of congestive heart failure, COPD, hypothyroidism, and hypertension. Shila shields came in with dizziness, weakness, was found to have a urinary tract infection with sepsis. Her tro ponin was elevated. She denied any chest pain. Denied any vomiting but had some nausea diaphoresis. She denied any PND, orthopnea, pedal edema, palpitations, or syncope. Past Medical History: As stated above. Also includes history of bladder cancer in the past. Allergies: SHE IS ALLERGIC TO SULFA. Medications: Include Synthroid, potassium, Lipitor, fish oral, Neurontin, as well as triamterene wit h hydrochlorothiazide. Review of Systems: Negative. Social History: Negative. Family History: Negative. Physical Examination: General: She appeared to be in no acute distress. Vital Signs: Stable. She was afebrile. She was in sinus rhythm. HEENT: Negative. Neck: Supple with no bruit. Chest: Clear. Cardiac: Exam revealed a regular rhythm and rate. There is an S3 gallop and an S4 gallop. No murmu rs or rubs. Abdomen: Benign. Extremities: Revealed no clubbing, cyanosis, or edema. Diagnostic Data: Her potassium is 3.8. White count was 12,000. Troponin 0.26. BNP is 713. She kim d x-rays of her hip, which were negative. She had CT scan of the spine showing some mild spinal sten osis. Urinary analysis showed UTI. Chest x-ray showed chronic interstitial changes. Her EKG was no rmal. Impression And Plan: 1.Urinary tract infection, sepsis. She is now on antibiotics. 2.Elevated troponin probably secondary to her sepsis and urinary tract infection. I think this is m ore demand ischemia. I do not think we are dealing with an acute coronary syndrome. She has an echo cardiogram pending. I would consider doing a stress test on her pharmacologically as an outpatient. 3.Hypokalemia. That needs to be corrected. 4.Chronic interstitial changes on x-ray. 5.Hypertension, well controlled. 6.Hypothyroidism. 7.Chronic obstructive pulmonary disease. 8.History of chronic diastolic congestive heart failure. We will see what the echo shows. Finally, I think her gross symptoms of weakness and dizziness may have been secondary to hypotension from the combination of her UTI, sepsis as well as her diuretic, which should be held at this point. I think with her potassium being 2.8, despite taking potassium therapy and the diuretics, we may want to con [employer] an alternative medicine for her blood pressure. Again, we will see what the echo shows. Consi juan f outpatient Lexiscan. No plan for coronary intervention. Continue antibiotic, supplement potassi um, and I will discuss the case further with Dr. Kuo. I will continue to follow her. LEONARDO/TUAN Voice ID: [id number] Report ID: [id number]
[2020-03-27] MEDS: ENOXAPARIN 40 MG/0.4 ML SQ SCH (17:26)
[2020-03-27] MEDS: lamoTRIgine 100 MG TAB PO SCH (21:54)
[2020-03-27] MEDS: GABAPENTIN 300 MG CAP PO SCH (21:55)
[2020-03-28 04:58] LABS: Absolute Lymphocytes (CBC) 1.5 K/uL (0.7-4.9); Basophils % 0.5 % (0-1.3); Hematocrit 30.6 % (36.0-45.0); Lymphocytes % 14.4 % (15.3-44.8); RBC Red Blood Cell Count 3.59 M/uL (3.86-4.86)
[2020-03-28 05:15] LABS: Magnesium 2.1 mg/dL (1.8-2.4)
[2020-03-28 05:21] LABS: Potassium 2.9 mmol/L (3.5-5.1)
--- NOTE | 2020-03-28 05:54 | HP ---
Date of Admission: 03/27/2020 Chief Complaint: Feeling dizzy and weak. 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 The patient came into emergency room with a significant weakness and dizziness. She was in the kitchen and she felt very weak, so she decided to sit down on the floor. There was no free fall or injury, and this was during nighttime and the patient's was in the other part of the house. The patient says that he was not going to be able to help, so she decided not to call him. Next day morning she called her daughter and then she was subsequently brought to the emergency room. After she was evaluated in the ER, she was admitted to hospital with low potassium and urinary tract infection. Allergies: SULFA. Medications: List reviewed. Review of Systems: Constitutional: Significant for weakness. 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 All other systems reviewed and negative. Past Medical History: Significant for goiter, hypothyroidism, hypertension, hyperlipidemia, gastroesophageal reflux disease, constipation, bladder cancer, for which she had chemotherapy in October 2019 and then had removal of bladder with neobladder formation on January 30, 2020, also has osteoarthritis, anxiety, depression, insomnia, osteopenia. Past Surgical History: Cataract surgery, retina surgery, , D and C, foot surgery. Family History: Father had diabetes and dementia. Mother had hypertension and breast cancer. Social History: Negative for smoking or alcohol use. Physical Examination: Vital Signs: Temperature 98.8, pulse 63, respiratory rate 18, blood pressure 143/65, oxygen saturation 97%. Height 5 feet 3 inches, weight 160 pounds. General: Awake, alert, oriented, not in distress. HEENT: Head atraumatic, normocephalic. Conjunctivae nonerythematous. Sclerae white. Mouth, no thrush or edema noted. Ears/Nose, no mass, lesion, discharge noted. Neck: Supple. No JVD, lymph nodes, bruit, thyromegaly noted. Lungs: Bilateral good equal air entry. Clear to auscultation. No rhonchi. No rales. Heart: Normal heart sounds, no murmur or gallop. Abdomen: The patient has neobladder site in the lower abdomen. Abdomen is soft. Bowel sounds normal. No guarding, rigidity, tenderness, or distention. Extremities: No leg edema. No calf tenderness. Skin: No rash, ulcer, cellulitis. Lymphatics: No lymph node enlargement in neck, supraclavicular, infraclavicular region. Neuro: No focal neurological deficit. Chest: Unremarkable. External Genitalia: Deferred. Rectal: Deferred. Laboratory Data: White count 12.3, hemoglobin 11.9, platelets 237. INR 1.21. Sodium 141, potassium 2.9, chloride 109, bicarb 24, BUN 16, creatinine 0.90, glucose 133. Liver function tests unremarkable. First troponin 0.25, second troponin 0.28. Urinalysis showed trace blood, trace esterase. CAT scan of the head and cervical spine, no acute intracranial or cervical spine changes. Chest x-ray, chronic interstitial pattern with shallow inspiration. Hip x-ray with no evidence of any fracture, presence of sclerotic focus in the intertrochanteric right femur region, which has enlarged compared to before, but it is not new from 2016 study. Impression: 1. Hypokalemia, severe. 2. Urinary tract infection. 3. Bladder cancer. 4. Goiter. 5. Hypothyroidism. 6. Hypertension. 7. Hyperlipidemia. 8. Gastroesophageal reflux disease. 9. Anxiety. 10. Depression. 11. Osteoarthritis, multiple sites. 12. Insomnia. 13. Osteopenia. Plan: Admit patient to hospital for further evaluation and management of this problem. The patient is appropriate for inpatient and is expected to spend 2 midnights in hospital. We will go ahead and continue current empiric antibiotics. Her white count this morning is 12.4 and yesterday it was 12.3. Hemoglobin is stable at 11.2. Potassium is still low this morning 2.8 and yesterday it was 2.9. The patient potassium will be corrected using electrolyte replacement protocol. We will discontinue IV fluid, which has potassium in it and just use the potassium replacement protocol for correction of her potassium. Her triamterene/hydrochlorothiazide will be discontinued as that could definitely contribute to her low potassium problem. Losartan 25 mg daily will be started and we will hold if systolic blood pressure less than 130. Continue empiric antibiotic ceftriaxone. Follow up on urine culture results and make decision about any adjustment on antibiotic depending on culture results. Lovenox will be given for DVT prophylaxis. Consult Physical Therapy to help ambulate the patient. We will consult Cardiology for abnormal cardiac enzymes and we will get echo with Doppler today. Details and plan of treatment discussed with the patient. MARISA/TUAN Voice ID: [id number] MTDD
[2020-03-28] MEDS ORDERED: KCL 20 MEQ/100 mL IVPB 20 MEQ/100 ML BAG IV SCH (06:02)
[2020-03-28] MEDS ORDERED: POTASSIUM 25 MEQ EFFERV TAB PO ONE (06:02)
[2020-03-28] MEDS: LEVOTHYROXINE SOD 0.112 MG TAB PO SCH (06:21)
[2020-03-28] MEDS ORDERED: NA CHLORIDE 0.9% 250 ML ONE (06:38)
--- NOTE | 2020-03-28 08:37 | ECHO ---
HEIGHT: 5 ft 3 in WEIGHT: 160 lb 0 oz DATE OF STUDY: 03/27/[address]: Connor Kuo MD 2-DIMENSIONAL: YES M.MODE: YES DOPPLER: YES COLOR FLOW: YES TDS: NO PORTABLE: NO DEFINITY: NO BUBBLE STUDY: NO DIAGNOSIS: ABNORMAL TROPONIN CARDIAC HISTORY: CATHERIZATION: SURGERY: PROSTHETIC VALVE: PACEMAKER: MEASUREMENTS (cm) DIASTOLIC (NORMALS) SYSTOLIC (NORMALS) IVSd 1.1 (0.6-1.2) LA Diam (1.9-4.0) LVEF 78% LVIDd 4.1 (3.5-5.7) LVIDs 2.2 (2.0-3.5) %FS 46% LVPWd 0.8 (0.6-1.2) Ao Diam 2.9 (2.0-3.7) 2 DIMENSIONAL ASSESSMENT: RIGHT ATRIUM: NORMAL LEFT ATRIUM: NORMAL RIGHT VENTRICLE: NORMAL LEFT VENTRICLE: NORMAL TRICUSPID VALVE: NORMAL MITRAL VALVE: NORMAL PULMONIC VALVE: NORMAL AORTIC VALVE: NORMAL PERICARDIAL EFFUSION: NONE AORTIC ROOT: NORMAL LEFT VENTRICULAR WALL MOTION: NORMAL DOPPLER/COLOR FLOW: NORMAL COMMENTS: NORMAL LEFT VENTRICULAR SIZE AND FUNCTION. NO WALL MOTION ABNORMALITY. NO EFFUSION. TECHNOLOGIST: Neeraj JASMINE
[2020-03-28] MEDS: LOSARTAN POTASSIUM 50 MG TABLET PO SCH (09:00)
[2020-03-28] MEDS: CEFTRIAXONE/SWI 1gm 1 GM/10 ML SYR IVP SCH ×2 (09:39→21:14)
[2020-03-28] MEDS: ASPIRIN EC 81 MG TAB PO SCH (09:39)
[2020-03-28] MEDS: VITAMIN B COMPLEX 1 CAP PO SCH (09:42)
[2020-03-28] MEDS: ASCORBIC ACID 500 MG TABLET PO SCH (09:42)
[2020-03-28] MEDS: MAGNESIUM OXIDE 400 MG TAB PO SCH (09:42)
[2020-03-28] MEDS: BACLOFEN 10 MG TAB PO SCH ×2 (09:43→21:12)
[2020-03-28] MEDS: hydrOXYzine HCL 25 MG TAB PO SCH ×2 (09:44→21:12)
[2020-03-28] MEDS: ATORVASTATIN 20 MG TAB PO SCH (09:44)
[2020-03-28] MEDS: RISPERIDONE 0.25 MG TABLET PO SCH ×2 (09:45→21:13)
[2020-03-28] MEDS: lamoTRIgine 100 MG TAB PO SCH (09:47)
[2020-03-28] MEDS ORDERED: POTASSIUM CL SA 10 MEQ TAB PO ONE (13:44)
[2020-03-28] MEDS: ENOXAPARIN 40 MG/0.4 ML SQ SCH (16:11)
[2020-03-28] MEDS: GABAPENTIN 300 MG CAP PO SCH (21:11)
--- NOTE | 2020-03-29 00:03 | PN ---
Date of Progress Note: 03/28/2020 Subjective: The patient was seen this morning for followup. She was lying in bed, not in any distre ss. No new complaints or problems reported. She has significant generalized weakness and reports th at she was only able to stand up with assistance yesterday with help of Physical Therapy. Objective: Vital Signs: Reviewed. HEENT: Unremarkable. Lungs: Clear to auscultation. Heart: Sounds normal. Abdomen: Soft. Bowel sounds normal. No guarding, rigidity, tenderness, or distention. Extremities: No leg edema. Laboratory Data: White count 10.7, hemoglobin 10, platelets 182. Sodium 141, potassium 2.9, chlorid e 114, bicarb 20, BUN 12, creatinine 0.80, glucose 93, magnesium 2.1. Impression: 1.Hypokalemia. 2.Generalized weakness. 3.Debility. 4.Urinary tract infection. 5.Bladder cancer. 6.Anemia. Plan: We will go ahead and continue to replace potassium per protocol, continue current antibiotic, continue physical therapy to work with the patient, and we will see her tomorrow for followup. I did talk to her regarding care home facility placement and she is agreeable to do so. Echocardiogram showed ejection fraction 78% and it was unremarkable echocardi ogram. MARISA/MODL Voice ID: [id number] Report ID: [id number]
[2020-03-29 04:42] LABS: Potassium 3.3 mmol/L (3.5-5.1)
[2020-03-29] MEDS: LEVOTHYROXINE SOD 0.112 MG TAB PO SCH (06:21)
[2020-03-29] MEDS: LOSARTAN POTASSIUM 50 MG TABLET PO SCH (08:20)
[2020-03-29] MEDS ORDERED: POTASSIUM 25 MEQ EFFERV TAB PO ONE (09:00)
[2020-03-29] MEDS: CEFTRIAXONE/SWI 1gm 1 GM/10 ML SYR IVP SCH ×2 (09:49→21:31)
[2020-03-29] MEDS: VITAMIN B COMPLEX 1 CAP PO SCH (09:51)
[2020-03-29] MEDS: ASPIRIN EC 81 MG TAB PO SCH (09:51)
[2020-03-29] MEDS: hydrOXYzine HCL 25 MG TAB PO SCH ×2 (09:52→21:33)
[2020-03-29] MEDS: ASCORBIC ACID 500 MG TABLET PO SCH (09:52)
[2020-03-29] MEDS: BACLOFEN 10 MG TAB PO SCH ×2 (09:52→21:31)
[2020-03-29] MEDS: MAGNESIUM OXIDE 400 MG TAB PO SCH (09:52)
[2020-03-29] MEDS: RISPERIDONE 0.25 MG TABLET PO SCH ×2 (09:52→21:32)
[2020-03-29] MEDS: lamoTRIgine 100 MG TAB PO SCH (09:53)
[2020-03-29] MEDS: ATORVASTATIN 20 MG TAB PO SCH (09:54)
[2020-03-29] MEDS: ENOXAPARIN 40 MG/0.4 ML SQ SCH (16:30)
[2020-03-29] MEDS ORDERED: POTASSIUM CL SA 10 MEQ TAB PO ONE (20:00)
[2020-03-29] MEDS: GABAPENTIN 300 MG CAP PO SCH (21:31)
--- NOTE | 2020-03-29 22:58 | PN ---
Date of Progress Note: 03/29/2020 Subjective: The patient was seen this morning for followup. No new complaints or problems reported by the patient. Yesterday, she did walk about 5-10 steps with assistance. Objective: Vital Signs: Reviewed. HEENT: Unremarkable. Heart: Sounds normal. Abdomen: Soft. Bowel sounds normal. No guarding, rigidity, tenderness, or distention. Extremities: No leg edema. Laboratory Data: Sodium 145, potassium 3.3, chloride 116, bicarb 21, BUN 12, creatinine 0.74, glucos e 83. Assessment: 1.Hypokalemia. 2.Generalized weakness. 3.Debility. 4.Urinary tract infection. 5.Bladder cancer. Plan: We will continue current medication. Continue losartan for hypertension per order. We will r eplace electrolyte per protocol. Continue physical therapy to assist with ambulation. Social Servghanshyam e is assisting the patient for jail facility placement. I did talk to her oncologist, Dr. Trotter, at [facility], and discussed with him regarding having pleuritic focus and we n eed to rule out any possibility of metastatic disease from bladder cancer. He informed me that he wi ll have his office schedule appointment for the patient to see him in 2-3 weeks, and at that time, he will pursue further outpatient workup for t his abnormality noted on the hip x-ray. MARISA/MODL Voice ID: [id number] Report ID: [id number]
[2020-03-30 04:25] LABS: Potassium 3.8 mmol/L (3.5-5.1)
[2020-03-30] MEDS: LEVOTHYROXINE SOD 0.112 MG TAB PO SCH (05:01)
[2020-03-30] MEDS: LOSARTAN POTASSIUM 50 MG TABLET PO SCH (09:00)
[2020-03-30 09:04] VITALS: BP 122/52; TEMP 97.8
[2020-03-30] MEDS: CEFTRIAXONE/SWI 1gm 1 GM/10 ML SYR IVP SCH (10:03)
[2020-03-30] MEDS: MAGNESIUM OXIDE 400 MG TAB PO SCH (10:04)
[2020-03-30] MEDS: ATORVASTATIN 20 MG TAB PO SCH (10:04)
[2020-03-30] MEDS: hydrOXYzine HCL 25 MG TAB PO SCH (10:04)
[2020-03-30] MEDS: BACLOFEN 10 MG TAB PO SCH (10:05)
[2020-03-30] MEDS: ASPIRIN EC 81 MG TAB PO SCH (10:05)
[2020-03-30] MEDS: lamoTRIgine 100 MG TAB PO SCH (10:05)
[2020-03-30] MEDS: VITAMIN B COMPLEX 1 CAP PO SCH (10:05)
[2020-03-30] MEDS: RISPERIDONE 0.25 MG TABLET PO SCH (10:06)
[2020-03-30] MEDS: ASCORBIC ACID 500 MG TABLET PO SCH (10:06)
[2020-03-30 10:27] VITALS: O2SAT 95
--- NOTE | 2020-03-30 10:53 | DS ---
Date of Discharge: 03/30/2020 Disposition: Discharged to go to long term. Physical Examination: HEENT: Unremarkable. Lungs: Clear to auscultation. Heart: Sounds normal. Abdomen: Soft. Bowel sounds normal. No guarding, rigidity, tenderness, distention. Extremities: No leg edema. Laboratory Data: Last chemistry today is sodium 146, potassium 3.8, chloride 116, bicarb 24, BUN 12, creatinine 0.74, glucose 82. Her potassium was 2.9 when she came into the hospital, which has been corrected. Echocardiogram showed normal ejection fraction, unremarkable echocardiogram. CAT scan of the head and cervical spine was negative for any acute changes. Chest x-ray, negative for any cardi opulmonary changes. Hip x-ray showed area of sclerotic density in the right proximal femur intertroc hanteric region. Final Diagnosis: 1.Hypokalemia, severe. 2.Urinary tract infection. 3.Generalized weakness. 4.Debility. 5.Bladder cancer. 6.Hypothyroidism. 7.Hypertension. 8.Goiter. 9.Hyperlipidemia. 10.Gastroesophageal reflux disease. 11.Depression. 12.Osteoarthritis, multiple sites. 13.Insomnia. 14.Osteopenia. Hospital Course: This is a 74-year-old female patient who came into emergency room complaining of fe eling weak and dizzy. Please see dictated H and P for more information. After the patient was evalu ated in the ER she was admitted to the hospital. She was started on empiric IV antibiotics ceftriaxo ne. Unfortunately, her urine was not sent for culture in the emergency room prior to initiation of a ntibiotics. She remained afebrile. White count was minimally elevated. When she first came in, it was around 12.4-12.5 range and that has came down to normal. Physical therapy was consulted. Genera lized weakness has improved and in the beginning she was able to stand at bedside with assistance and next day she was able to take 5-10 steps with assistance and yesterday she was able to walk with ass istance in the hallway outside her room. She denies any pain in her hip area or groin region. Yeste rdyaima, I did talk to her oncologist, Dr. Trotter at [facility] and discussed about this ab normality noted on the proximal femur in the intertrochanteric region and he will pursue further outp atient evaluation and he will have his office contact the patient with appointment to see him in [facility] t 2 weeks or so. The patient was made aware of this today. Yesterday, we did try to reach out to th e patient's daughter and we were not able to contact her, but we did leave a message for her. Overal l, her condition has improved now and she will be discharged to go to long term for short-term sta y for [facility] facility for therapy and when she is able to get discharged from the facility, then she will go home and she was advised to contact my office to schedule followup appointment once she gets discharged from long term. Discharge Medications And Instructions: 1.Continue prior home medication except stop triamterene/hydrochlorothiazide. 2.Stop potassium. 3.Start Cipro 250 mg p.o. 2 times a day for 5 days. 4.Lovenox 40 mg subcutaneous injection daily for 2 weeks. 5.Fall precautions. 6.Consult Physical Therapy and Occupational Therapy at long term. 7.Follow up with Dr. Trotter in [place] in 2 weeks. MARISA/MODL Voice ID: [id number] Report ID: [id number]
[2020-03-30] MEDS ORDERED: POTASSIUM CL SA 10 MEQ TAB PO ONE (12:00)
== END 2020-03-30 12:11 | DRG 690 ==
LOC: SUPCPDRO 09:14 → ER 09:14 → ERHOLD 12:27 → 2ND 13:35
PROVIDERS: ADMIT Internal Medicine; ATTEND Internal Medicine
DX: N39.0 Urinary tract infection, site not specified (principal); E87.6 Hypokalemia; I10 Essential (primary) hypertension; J44.9 Chronic obstructive pulmonary disease, unspecified; E03.9 Hypothyroidism, unspecified; E78.5 Hyperlipidemia, unspecified; K21.9 Gastro-esophageal reflux disease without esophagitis; E04.9 Nontoxic goiter, unspecified; F41.9 Anxiety disorder, unspecified; F32.9 Major depressive disorder, single episode, unspecified; M19.90 Unspecified osteoarthritis, unspecified site; D64.9 Anemia, unspecified; G47.00 Insomnia, unspecified; M85.80 Other specified disorders of bone density and structure, unspecified site; R53.81 Other malaise; Z79.890 Hormone replacement therapy; Z85.51 Personal history of malignant neoplasm of bladder; Z88.1 Allergy status to other antibiotic agents; Z20.828 Contact with and (suspected) exposure to other viral communicable diseases
CPT/HCPCS: 36415; 51702; 70450; 71045; 72125; 80048; 80076; 81003; 83735; 83880; 84132; 84484; 85025; 85610; 93005; 93306; 96365; 96366; 97110; 97112; 97116; 97161; 97530; 99285; J0696; J1650; J2405; J3480; J7030; J7040; J7050; U0002

== ENCOUNTER 2021-06-19 09:53 | Inpatient (IN) | payer OTHER, BC ==
--- NOTE | 2021-06-19 13:09 | R.PREADM ---
PRE-ADMISSION SCREENING FORM SCREENING DATE AND TIME 06/19/2021 10:04 (CARDROOM ATTENDANT) ANTICIPATED REHAB ADMISSION DATE 06/21/2021 REFERRING FACILITY [facility] REFERRAL DATE AND TIME 06/18/2021 05:05 (CARDROOM ATTENDANT) REFERRAL ROOM# J947 ACUTE ADMIT DATE 06/16/2021 Previous Rehabilitation(s): No. 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 Patrick Smart M.D. MR# [id number] NAME ALEXANDRIA MERCADO AD[address]ESS [address] [facility] [id number] DATE OF 1945 AGE 75 SSN# [id number] GENDER female MARITAL STATUS ADMIT FROM 02 - [facility] PRE-HOSPITAL LIVING SETTING 01 - Home (private home/apt. board/care, assisted living, senior living, transitional living) HOME TYPE AND DETAILS Type of home: single family house # of steps to enter the residence: 0 # of steps within the residence: 0 # of levels in the residence: 1 PRE-HOSPITAL LIVING WITH Family/Relatives FAMILY SUPPORT Yes PRIMARY FAMILY CONTACT NAME ALEXANDRIA MERCADO PRIMARY FAMILY CONTACT PHONE PRIMARY FAMILY CONTACT RELATIONSHIP SELF PHONE PRIMARY FAMILY CONTACT ON ADM.? no IS PRIMARY FAMILY CONTACT AUTH. REP.? no 1ST EMERGENCY CONTACT ALEXANDRIA MERCADO 1ST CONTACT PHONE 1ST CONTACT RELATIONSHIP SELF PHONE 1ST CONTACT ON ADM. no IS 1ST CONTACT AUTH. REP.? no PHONE 2ND CONTACT ON ADM.? no PATIENT EMPLOYMENT STATUS Retired (for age) PATIENT EMPLOYER No Employer PAYOR INFORMATION: 1ST PAYOR NAME MEDICARE 1ST PAYOR PHONE 1ST PAYOR INJURY/ILLNESS DUE TO ACCIDENT? No ANOTHER REPUBLICAN RESPONSIBLE? No PRIMARY REHAB/ACUTE DIAGNOSIS: ACUTE ISCHEMIC R Cerebellar CVA ONSET DATE 06/16/2021 REHAB IMPAIRMENT CATEGORY (ANNAMARIE): 01 Stroke (STR) MEETS 60% rule AFFECTED EXTREMITIES: RLE PRIMARY DIAGNOSIS-RELATED SURGERIES: N/A RISK FOR COMPLICATIONS: - N/A HTN NEUROPATHY HYPOTHYROIDISM SUMMARY OF ACUTE HOSPITALIZATION: Pt. is a 75 yo Right-handed female. On 06/16/2021 Pt. presented to [facility] with sudden onset of left-side weakness. On 06/16/2021 she was admitted to [facility] with diagnosis ACUTE ISCHEMIC R Cerebellar CVA. Her impairment category is Stroke 01 - Left Body (Right Brain) (01.1). Pre-morbidly, Pt. was independent/mod-I in Locomotion, Safety Awareness, and Social Cognition; and sh e had good Endurance, Communication, Self-Care, Sphincter Control, and Transfers Control. Currently, she has deficits of Endurance, Self-Care, Balance, Social Cognition, Safety Awareness, Loc omotion, Transfers Control, and Sphincter Control. Pt. is now referred to [facility] for acute in-patient rehabilitation in order to maximize patient's functional independence in activities of daily living, strength, ROM, and mobi lity. Patient has realistic goal of being discharged at assistance level 7-Ind to reside at Home with Fami ly/Relatives. PAST MEDICAL HISTORY HTN HISTORY OF BLADDER CANCER HYPOTHYROIDISM NEUROPATHY ORAL DYSKINESIAS HISTORY OF STROKES APHASIA PNA HISTORY OF RECURRENT UTI CV DYSPHAGIA PAST SURGICAL HISTORY: BLADDER RESECTION MEDICATION ALLERGIES: No Known Drug Allergies (NKDA) ENVIRONMENTAL ALLERGIES: - Substance Allergies None Known - Other Allergies None Known CODE STATUS: Full code WEIGHT/HEIGHT/BMI: WEIGHT 143 lbs HEIGHT 5' 2" BMI 26.2 DIET: - Diet Type Regular - Diet - Solid Texture Regular - Diet - Liquid Texture Regular - Tube Feed N/A REVIEW OF SYSTEMS: - Gen Alert and awake Lying in bed No apparent distress Oriented to: person, time, and place - Vital Signs Temperature: 96.8 F SBP/DBP: 121/58 Pulse: 19 Resp: 97 Vital signs stable, afebrile - CVS RRR VITAL SIGNS Temperature: 96.8 F SBP/DBP: 121/58 Pulse: 19 Resp: 97 Vital signs stable, afebrile MEDICATIONS/TREATMENT: Other- See attached MAR (Medication Administration Record). CURRENT SPHINCTER CONTROL: Pre-hospital bladder status: unspecified # of bladder accidents in the last 7 days prior to screenin Pre-hospital bowel status: unspecified # of bowel accidents in the last 7 days prior to screenin Last Bowel Movement Date: 06/19/2021 CURRENT LOCOMOTION STATUS: distance walked 8-10feet WITH ROLLING WALKER DETAILED CURRENT FUNCTIONAL STATUS: - Bladder accident frequency: 7-Ind - No accidents in the past 7 days - Bowel accident frequency: 7-Ind - No accidents in the past 7 days - Walking score based on distance walked: 0(N/A) - Wheelchair score based on distance traveled: 0(N/A) QI SCORES: - Self-Care A. Eating 06-Independent B. Oral hygiene 03-Partial/moderate assistance C. Toileting hygiene 03-Partial/moderate assistance E. Shower/bathe self 03-Partial/moderate assistance F. Upper body dressing 03-Partial/moderate assistance G. Lower body dressing 03-Partial/moderate assistance H. Putting on/taking off footwear - Mobility A. Roll left and right 06-Independent B. Sit to lying 03-Partial/moderate assistance C. Lying to sitting on side of bed 03-Partial/moderate assistance D. Sit to stand 03-Partial/moderate assistance E. Chair/psj-jw-futdu transfer 03-Partial/moderate assistance F. Toilet transfer 03-Partial/moderate assistance G. Car transfer 88-Not attempted due to medical condition or safety concerns I. Walk 10 feet 03-Partial/moderate assistance J. Walk 50 feet with two turns 88-Not attempted due to medical condition or safety concerns K. Walk 150 feet 88-Not attempted due to medical condition or safety concerns L. Walking 10 feet on uneven surfaces 88-Not attempted due to medical condition or safety concerns M. 1 step (curb) 88-Not attempted due to medical condition or safety concerns N. 4 steps 88-Not attempted due to medical condition or safety concerns O. 12 steps 88-Not attempted due to medical condition or safety concerns P. Picking up object 06-Independent R. Wheel 50 feet with two turns 88-Not attempted due to medical condition or safety concerns S. Wheel 150 feet 88-Not attempted due to medical condition or safety concerns - Bladder and Bowel Bladder continence Bowel continence - Endurance Fair - Balance Fair - Safety Awareness Fair CURRENT FUNC. DEFICITS: Endurance, Balance, Safety Awareness, Self-Care, and Mobility CURRENT / PREVIOUS ASSISTIVE DEVICES: Glasses Rolling Walker HISTORY OF FALLS. HAS THE PATIENT HAD TWO OR MORE FALLS IN THE PAST YEAR OR ANY FALL WITH INJURY IN T HE PAST YEAR?: No PRIOR SURGERY. DID THE PATIENT HAVE MAJOR SURGERY DURING THE 100 DAYS PRIOR TO ADMISSION?: No THERAPY NOTES FROM ACUTE CARE: Attached. SPECIAL NEEDS: - Safety Concerns Skin breakdown precautions needed due to skin breakdown risk PRECAUTIONS: - Weight Bearing Precaution WBAT right LE PATIENT NEEDS ACTIVE AND ONGOING THERAPEUTIC INTERVENTION OF MULTIPLE THERAPY DISCIPLINES, INCLUDING: - Dietary and Nutrition Adequate Nutrition. Nutritional Education. Nutritional Supplements. - Occupational Therapy Cognitive Retraining. Transfer Training. Evaluate and Treat. UE Strengthening. Indep. ADL's- Higher L evel Functioning. Safety Awareness. Household Tasks. Visual Perceptual Training. - Speech Therapy Cognitive Training. Expressive Language Skills. Memory Strategies. Receptive Language Skills. Speech Intelligibility Training. - Physical Therapy Evaluate and Treat. Gait Training. Balance Training. Transfer Training. LE Strengthening. Mobility Tr aining. Safety Awareness. PATIENT NEEDS CLOSE MEDICAL SUPERVISION BY A REHABILITATION PHYSICIAN FOR: Coordination of Treatment Team Medical and Co-Morbidity Management Pain Management PATIENT REQUIRES 24X7 REHAB NURSING FOR MEDICAL AND FUNCTIONAL MGT. OF THE FOLLOWING DEFICITS: Disease Management Medication Management Patient/Family Education Providing Safe Environment PATIENT REQUIRES INTENSIVE, COORDINATED INTERDISCIPLINARY APPROACH TO REHAB: Arranging Home Equipment/Services Discharge Planning Family Intervention/Training Entry Level Automotive Technician/Case Management PATIENT REHAB POTENTIAL: Meg MERCADO is able and expected to receive 3 hours of individualized therapy daily on at least 5 o f every 7 days Meg MERCADO's prognosis for significant practical improvement within a reasonable period of time ap pears Good Expected level of measurable improvement will be of a practical value to Meg MERCADO's functional c apacity or adaptations to impairments Has a viable Discharge Plan Medically appropriate; condition is sufficiently stable to participate in intensive rehab program DISCHARGE PLAN: - Estimated Length of Stay (days) 17. - Consensus on plan Discharge plan has been discussed with primary caregiver. Patient/Family is in agreement with the yarelis n. Primary caregiver is in agreement with the plan. - Patient/Family Goals Return home independently. - Planned Living Setting Upon Discharge Home, to live with Family/Relatives. Transitional Living. RECOMMENDED CARE LEVEL: IRF RECOMMENDATION DETAILS: Recommended Admission to Comprehensive Rehabilitation Program to Increase Functional Creola SCREENER'S COMPLETENESS CONFIRMATION: - Screening Confirmation The patient data collection on this preadmission screening form is finished PHYSICIANS REVIEW AND ADMISSION DETERMINATION Admit - Based on my review of the Pre-Admission Screening results, in my medical judgment and experie nce, I concur with the findings and recommend admission to [facility], as this patient requires an IRF level of care. SIGNATURE PANEL: Manager Pe - [electronically] signed by Mariana Smith on 06/19/2021 at 11:29 (CARDROOM ATTENDANT) Manager Pe - [electronically] signed by Brian Mesa PT on 06/19/2021 at 12:20 (CARDROOM ATTENDANT) Physician Reviewer - [electronically] signed by Dr. Patrick Smart M.D. on 06/19/2021 at 13:08 (CARDROOM ATTENDANT )
--- OUTSIDE RECORDS SUMMARY | 2021-06-19 18:42 | XMS REPORT | Continuity of Care Document ---
:1945 Author Organization [facility] t Address [address] [place] [address] Care Team Providers Name Role Phone Lucy SOLOMON Primary Care Physician Unavailable GIANCARLO HENRIQUEZ Attending Clinician Unavailable PIPO Attending Clinician Unavailable EYAD YEN Attending Clinician Unavailable EYAD YEN Attending Clinician Unavailable Eyad Yen MD Attending Clinician Fiona MARTIN P Attending Clinician Virgilio MARTIN P Attending Clinician Doctor Unassigned, Name Attending Clinician Unavailable 2, Lab Attending Clinician Unavailable Pipo MARTIN Attending Clinician Alfredo MARTIN Ray Attending Clinician C-Arm, Siemens Attending Clinician Chas MARTIN Attending Clinician 13, Chair Attending Clinician Uzma PhD Attending Clinician Deric Wise MD Attending Clinician Saul Garcia Attending Clinician Juanita RAYMUNDO Attending Clinician Unavailable GIANCARLO HENRIQUEZ Admitting Clinician Unavailable EYAD YEN Admitting Clinician Unavailable Payers Payer Name Policy Type Policy Number Effective Date Expiration Date S [id number] 2017 BLUE/ESSENTIALS 00:00:00 MEDICARE PART A \\T\\ [id number] 2020 B 00:00:00 BCBS TRADITIONAL [id number] 2020 00:00:00 MEDICARE PART A \\T\\ [id number] B - MEDICARE [employer]ALTH[employer] [id number] 2020 SECONDARY 65+ - 00:00:00 BCBS MEDICARE A B [id number] 2020 00:00:00 CDC REVIEW [id number] 2020 00:00:00 Problems Condition Condition Condition Status Onset Resolution Last Treating Co mments Source Name Details Category Date Date Treatment Clinician Date Constipati Constipati Disease Active [facility] on 08-02 College 00:00: of 00 Medicin e ORTEGA ORTEGA Disease Active [facility] (stress (stress 08-02 [place] urinary urinary 00:00: of incontinen incontinen 00 Me susan ce, ce, e female) female) Hypertensi Hypertensi Disease Active 2019-07 U nivers on, on, 2-13 ity [place] type d type 00 [facility] Thyroid Thyroid Disease Active 2019-07 Univers nodule nodule 2-13 ity of 00:00: [place] [facility] Post-menop Post-menop Disease Active 2019-07 U nivers ausal ausal 2-13 ity of bleeding bleeding 00:00: [place] [facility] Malignant Malignant Disease Active 2019-07 Uni vers neoplasm neoplasm 2-13 ity of of [place] bladder, bladder, 00 Medica l unspecifie unspecifie Br anch d site d site Hyperchole Hyperchole Disease Active 2019-07 U nivers steremia steremia 2-13 ity of 00:00: [place] [facility] Vaginal Vaginal Disease Active 2019-07 [facility] bleeding bleeding 1-19 Colleg e 00:00: of 00 Medicin e Port-A-Cat Port-A-Cat Disease Active [facility] h in place h in place 8-11 Co llege 00:00: of 00 Medicin e Urothelial Urothelial Disease Active U nivers cancer cancer 7-13 ity of 00:00: [place] [facility] Malignant Malignant Disease Active [facility] neoplasm neoplasm 4-07 Colleg e of of 00:00: of overlappin overlappin 00 Me dicin g sites of g sites of e bladder bladder (HCCode) (HCCode) Malignant Malignant Disease Active 2020-0 Uni vers neoplasm neoplasm 3-27 ity of of of 00:00: [place] overlappin overlappin 00 Me dical g sites of g sites of Br anch bladder bladder Malignant Malignant Problem Active [facility] urinary of urinary Me moria bladder, bladder, l unspecifie unspecifie Ou tpati d site d site ent Clinics Malignant Malignant Problem Active [facility] of of Memoria overlappin overlappin l g sites of g sites of Ou tpati bladder bladder ent Clinics Allergies, Adverse Reactions, Alerts Allergy Allergy Status Severity Reaction(s) Onset Inactive Treating Comm ents Source Name Type Date Date Clinician SULFA Drug Active Swelling Univers (SULFONA Class 3-23 ity of MIDE 00:00: [place] ANTIBIOT 00 Medical ICS) Branch Sulfa Propensi Active Swelling Univer s (Sulfona ty to 3-23 ity of mide adverse 00:00: [place] Antibiot reaction 00 Medica l ics) s Branch SULFA Allergy Active Swelling [facility] (SULFONA 3-23 [facility] - MIDE 00:00: Medical ANTIBIOT 00 Center ICS) Sulfa Propensi Active Swelling [facility] Antibiot ty to 3-17 [place] ics adverse 00:00: of reaction 00 Medicin s to e drug NO KNOWN Drug Active Univers ALLERGIE Class ity of S [facility] Family History Family Member Diagnosis Comments Start Date Stop Date Source Natural father Diabetes [facility] lege of Medicine Natural mother Breast Cancer [facility] Natural mother High Blood Pressure [facility] Social History Social Habit Start Date Stop Date Quantity Comments Source History [facility] ge of Alcohol Comment Medicine History [facility] ge of Alcohol Std Medicine Drinks History [facility] ge of Alcohol Binge Medicine Exposure to Not sure University of SARS-CoV-2 [facility] (event) Branch Alcohol intake 2021-01-29 2021-01-29 Lifetime [facility] Col lege of 00:00:00 00:00:00 non-drinker Medicine (finding) History [facility] 2019-10-04 2019-10-04 1 [facility] ge of Alcohol Frequency 00:00:00 00:00:00 Medicin e Tobacco use and 2019-10-04 2019-10-04 Never used [facility] Co llege of exposure 00:00:00 00:00:00 Medicine Sex [birth year] [facility] Co llege of 00:00:00 00:00:00 Medicine Smoking Status Start Date Stop Date Source Unknown if ever smoked [facility] Never smoker [facility] Medications Ordered Filled Start Stop Current Ordering Indication Dosage Frequency Signature Comments Components Source Medication Medication Date Date Medication? Clinician (SIG) Name Name gabapentin 2020-07 Yes 300mg Take 300 [facility] (NEURONTIN) 0-19 mg by [place] 300 MG 14:36: mouth of capsule 24 daily. Medicin e atorvastati 2020-07 Yes 20mg Take 20 mg [facility] n (LIPITOR) 0-19 by mouth Shanel ege 20 MG 14:36: daily. of tablet 24 Medicin e levothyroxi 2020-07 Yes 112ug Take 112 [facility] ne 0-19 mcg by [place] (SYNTHROID) 14:36: mouth of 112 MCG 24 daily. Medicin tablet e olanzapine 2020-07 Yes 5mg Take 5 mg [facility] (ZYPREXA) 5 0-19 by mouth Shanel ege MG tablet 14:36: nightly. of 24 Medicin e Turmeric 2020-07 Yes 1{sonia Take 1 [facility] or Curcumin 0-19 t} Caplet by Colleg e 500 MG CAPS 14:36: mouth See o f 24 Admin Medicin Instructio e ns. clonazepam 2020-07- No 1{tbl} Take 1 [facility] (KLONOPIN) 0-19 10-19 Tablet by Col lege 0.5 MG 14:36: 00:00 mouth at of tablet 22 :00 bedtime. Medicin e gabapentin Yes 300mg Take 300 [facility] (NEURONTIN) 7-13 mg by [place] 300 MG 13:24: mouth of capsule 06 daily. Medicin e atorvastati Yes 20mg Take 20 mg [facility] n (LIPITOR) 7-13 by mouth Shanel ege 20 MG 13:24: daily. of tablet 06 Medicin e levothyroxi Yes 112ug Take 112 [facility] ne 7-13 mcg by [place] (SYNTHROID) 13:24: mouth of 112 MCG 06 daily. Medicin tablet e olanzapine Yes 5mg Take 5 mg [facility] (ZYPREXA) 5 7-13 by mouth Shanel ege MG tablet 13:24: nightly. of 06 Medicin e clonazepam Yes 1{tbl} Take 1 [facility] (KLONOPIN) 7-13 Tablet by Shanel ege 0.5 MG 13:24: mouth at of tablet 06 bedtime. Medicin e Turmeric Yes 1{sonai Take 1 [facility] or Curcumin 7-13 t} Caplet by Shwetha e 500 MG CAPS 13:24: mouth See o f 06 Admin Medicin Instructio e ns. gabapentin Yes 300mg Take 300 [facility] (NEURONTIN) 7-13 mg by [place] 300 MG 13:24: mouth of capsule 06 daily. Medicin e atorvastati Yes 20mg Take 20 mg [facility] n (LIPITOR) 7-13 by mouth Shanel ege 20 MG 13:24: daily. of tablet Medicin e levothyroxi Yes 112ug Take 112 [facility] ne 7-13 mcg by [place] (SYNTHROID) 13:24: mouth of 112 MCG 06 daily. Medicin tablet e olanzapine Yes 5mg Take 5 mg [facility] (ZYPREXA) 5 7-13 by mouth Shanel ege MG tablet 13:24: nightly. of 06 Medicin e escitalopra 2020-0 2020- No 5mg Take 5 mg [facility] m (LEXAPRO) 01-29-13 by mouth Col lege 5 MG tablet 13:23: 00:00 daily. of 47 :00 Medicin e escitalopra 2020-0 2020- No 5mg Take 5 mg [facility] m (LEXAPRO) 01-29 07-13 by mouth Col lege 5 MG tablet 13:23: 00:00 daily. of 47 :00 Medicin e escitalopra Yes 20mg Take 20 mg [facility] m (LEXAPRO) 7- by mouth Shanel ege 20 MG 00:00: daily. of tablet 00 Medicin e escitalopra Yes 20mg Take 20 mg [facility] m (LEXAPRO) 7- by mouth Shanel ege 20 MG 00:00: daily. of tablet 00 Medicin e baclofen Yes 10mg Take [address] [facility] (LIORESAL) 01-09 by mouth Colle ge 10 MG 00:00: at of tablet 00 bedtime. Medicin e baclofen 0 2020- No 10mg Take 10 mg [facility] (LIORESAL) 6-23 10-19 by mouth Shanel ege 10 MG 00:00: 00:00 at of tablet 00 :00 bedtime. Medicin e gabapentin Yes 300mg Take 300 [facility] (NEURONTIN) 6 mg by [place] 300 MG 15:26: mouth of capsule 27 daily. Medicin e atorvastati Yes 20mg Take 20 mg [facility] n (LIPITOR) 12-18 by mouth Shanel ege 20 MG 15:26: daily. of tablet Medicin e escitalopra Yes 5mg Take 5 mg [facility] (LEXAPRO) 12-18 by mouth Shanel ege 5 MG tablet 15:26: daily. of 27 Medicin e levothyroxi Yes 112ug Take 112 [facility] ne 6- mcg by [place] (SYNTHROID) 15:26: mouth of 112 MCG 27 daily. Medicin tablet e olanzapine Yes 5mg Take 5 mg [facility] (ZYPREXA) 5 12-18 by mouth Shanel ege MG tablet 15:26: nightly. of 27 Medicin e trospium Yes [id number] 20mg Take 1 [facility] (SANCTURA) 6- Tablet by Shanel ege 20 MG 00:00: mouth 3 of tablet 00 times Medicin daily e (before meals). trospium 0 Yes [id number] 20mg Take 1 [facility] (SANCTURA) 6- Tablet by Shanel ege 20 MG 00:00: mouth 3 of tablet 00 times Medicin daily e (before meals). trospium 0 Yes [id number] 20mg Take 1 [facility] (SANCTURA) 6- Tablet by Shanel ege 20 MG 00:00: mouth 3 of tablet 00 times Medicin daily e (before meals). trospium 0 Yes [id number] 20mg Take 1 [facility] (SANCTURA) 6- Tablet by Shanel ege 20 MG 00:00: mouth 3 of tablet 00 times Medicin daily e (before meals). gabapentin Yes 300mg Take 300 [facility] (NEURONTIN) 4-29 mg by [place] 300 MG 16:09: mouth of capsule 13 daily. Medicin e atorvastati Yes 20mg Take 20 mg [facility] n (LIPITOR) 4-29 by mouth Shanel ege 20 MG 16:09: daily. of tablet 13 Medicin e escitalopra Yes 5mg Take 5 mg [facility] (LEXAPRO) 4-29 by mouth Shanel ege 5 MG tablet 16:09: daily. of 13 Medicin e levothyroxi Yes 112ug Take 112 [facility] ne 4-29 mcg by [place] (SYNTHROID) 16:09: mouth of 112 MCG 13 daily. Medicin tablet e olanzapine Yes 5mg Take 5 mg [facility] (ZYPREXA) 5 4-29 by mouth Shanel ege MG tablet 16:09: nightly. of 13 Medicin e trospium 2020- No [id number] 20mg Take 1 [facility] (SANCTURA) 4-29 06- Tablet by Col lege 20 MG 00:00: 00:00 mouth 3 of tablet 00 :00 times Medicin daily e (before meals). BISACODYL 5 Yes 1{tbl} Take 1 [facility] MG EC 4-21 Tablet by [place] tablet 00:00: mouth of 00 daily. Medicin e BISACODYL 5 2020-0 2020- No 1{tbl} Take 1 [facility] MG EC 4-21 10-19 Tablet by [place] tablet 00:00: 00:00 mouth of 00 :00 daily. Medicin e olanzapine Yes 5mg Take 5 mg [facility] (ZYPREXA) 5 4-09 by mouth Shanel ege MG tablet 16:47: nightly. of 51 Medicin e gabapentin Yes 300mg Take 300 [facility] (NEURONTIN) 4-09 mg by [place] 300 MG 16:46: mouth of capsule 06 daily. Medicin e atorvastati 2021-0 Yes 20mg Take 20 mg [facility] n (LIPITOR) 4-09 by mouth Shanel ege 20 MG 16:46: daily. of tablet 06 Medicin e escitalopra 0 Yes 5mg Take 5 mg [facility] m (LEXAPRO) 4-09 by mouth Shanel ege 5 MG tablet 16:46: daily. of 06 Medicin e levothyroxi Yes 112ug Take 112 [facility] ne 4-09 mcg by [place] (SYNTHROID) 16:46: mouth of 112 MCG 06 daily. Medicin tablet e atorvastati 0 Yes 20mg Take 20 mg [facility] n (LIPITOR) 3-18 by mouth Shanel ege 20 MG 15:40: daily. of tablet 34 Medicin e escitalopra 0 Yes 5mg Take 5 mg [facility] (LEXAPRO) 3-18 by mouth Shanel ege 5 MG tablet 15:40: daily. of 34 Medicin e levothyroxi Yes 112ug Take 112 [facility] ne 3-18 mcg by [place] (SYNTHROID) 15:40: mouth of 112 MCG 34 daily. Medicin tablet e gabapentin 0 Yes 300mg Take 300 [facility] (NEURONTIN) 3-18 mg by [place] 300 MG 15:40: mouth of capsule 34 daily. Medicin e atorvastati Yes 20mg Take 20 mg [facility] n (LIPITOR) 3-18 by mouth Shanel ege 20 MG 15:40: daily. of tablet 34 Medicin e escitalopra 0 Yes 5mg Take 5 mg [facility] m (LEXAPRO) 3-18 by mouth Shanel ege 5 MG tablet 15:40: daily. of 34 Medicin e levothyroxi Yes 112ug Take 112 [facility] ne 3-18 mcg by [place] (SYNTHROID) 15:40: mouth of 112 MCG 34 daily. Medicin tablet e gabapentin 0 Yes 300mg Take 300 [facility] (NEURONTIN) 3-18 mg by [place] 300 MG 15:40: mouth of capsule 34 daily. Medicin e gabapentin 2020-0 Yes 300mg Take 300 [facility] (NEURONTIN) 2-19 mg by [place] 300 MG 21:01: mouth of capsule 41 daily. Medicin e atorvastati 2021-0 Yes 20mg Take 20 mg [facility] n (LIPITOR) 2-19 by mouth Shanel ege 20 MG 21:01: daily. of tablet 41 Medicin e escitalopra Yes 5mg Take 5 mg [facility] m (LEXAPRO) 2-19 by mouth Shanel ege 5 MG tablet 21:01: daily. of 41 Medicin e levothyroxi Yes 112ug Take 112 [facility] ne 2-19 mcg by [place] (SYNTHROID) 21:01: mouth of 112 MCG 41 daily. Medicin tablet e FAMOTIDINE 2020- No 400mg Take 400 [facility] OR 2-19 02-19 mg by [place] 21:01: 00:00 mouth of 29 :00 daily. Medicin e trospium Yes [id number] 20mg Take 1 [facility] (SANCTURA) 2-19 Tablet by Shanel ege 20 MG 00:00: mouth 3 of tablet 00 times Medicin daily e (before meals). trospium Yes [id number] 20mg Take 1 [facility] (SANCTURA) 2-19 Tablet by Shanel ege 20 MG 00:00: mouth 3 of tablet 00 times Medicin daily e (before meals). trospium Yes [id number] 20mg Take 1 [facility] (SANCTURA) 2-19 Tablet by Shanel ege 20 MG 00:00: mouth 3 of tablet 00 times Medicin daily e (before meals). trospium Yes [id number] 20mg Take 1 [facility] (SANCTURA) 2-19 Tablet by Shanel ege 20 MG 00:00: mouth 3 of tablet 00 times Medicin daily e (before meals). trospium 2021- No [id number] 20mg Take 1 [facility] (SANCTURA) 1-26 -22 Tablet by Col lege 20 MG 00:00: 05:59 mouth 2 of tablet 00 :00 times Medicin daily e (before meals) for 360 days. amoxicillin 2020- No [id number] 1{tbl} Take 1 [facility] -clavulanat 1-15 -19 Tablet by Co llege e 00:00: 00:00 mouth two of (AUGMENTIN) 00 :00 times Medicin 875-125 MG daily. e per tablet gabapentin Yes 300mg Take 300 [facility] (NEURONTIN) 1-14 mg by [place] 300 MG 16:03: mouth of capsule 32 daily. Medicin e atorvastati Yes 20mg Take 20 mg [facility] n (LIPITOR) 1-14 by mouth Shanel ege 20 MG 16:03: daily. of tablet 32 Medicin e FAMOTIDINE Yes 400mg Take 400 [facility] OR 1-14 mg by [place] 16:03: mouth of 32 daily. Medicin e escitalopra Yes 5mg Take 5 mg [facility] m (LEXAPRO) 1-14 by mouth Shanel ege 5 MG tablet 16:03: daily. of 32 Medicin e levothyroxi Yes 112ug Take 112 [facility] ne 1-14 mcg by [place] (SYNTHROID) 16:03: mouth of 112 MCG 32 daily. Medicin tablet e Ascorbic 2020- No Take by Lizette or Acid 07-27 mouth [place] (VITAMIN C) 17:43: 00:00 daily. of 500 MG CAPS 32 :00 Medicin e escitalopra Yes 5mg Take 5 mg [facility] m (LEXAPRO) 08 by mouth Shanel ege 5 MG tablet 17:43: daily. of 31 Medicin e B Complex 2020- No Take by Fadi mcintosh Vitamins (B 07-27 mouth Colleg e COMPLEX 1 17:43: 00:00 daily. of OR) 26 :00 Medicin e baclofen 2020- No 10mg Take 10 mg [facility] (LIORESAL) 07-27 by mouth Shanel ege 10 MG 17:43: 00:00 two times of tablet 23 :00 daily. Medicin e BIOTIN 5000 2020- No Take by Edy meyers [place] 07-27 mouth [place] 17:43: 00:00 daily. of 20 :00 Medicin e Calcium 2020- No Take by Brittany r Citrate-Vit 07-27 mouth two Co llege solomon D 17:43: 00:00 times of (CALCIUM 17 :00 daily. Medicin CITRATE + D e OR) L-THEANINE 2020- No 200[facility] mg by [place] 17:43: 00:00 mouth of 11 :00 daily. Medicin e Lactobacill 2020- No Take by [facility] us 07-27 mouth [place] (PROBIOTIC 17:43: 00:00 daily. of ACIDOPHILUS 08 :00 Medicin OR) e levothyroxi 2020- No 125ug Take 125 [facility] ne 07-27 mcg by [place] (SYNTHROID) 17:43: 00:00 mouth of 125 MCG 02 :00 daily. Medicin tablet e Lidocaine 2020- No Apply [facility] 0.5 % GEL 07-27 topically. Col lege 17:42: 00:00 of 59 :00 Medicin e Magnesium 2020- No Take by [facility] 400 MG TABS 07-27 mouth. Colle ge 17:42: 00:00 of 47 :00 Medicin e Multiple 2020- No Take by Fadil or Vitamins-Mi 07-27 mouth Colleg e nerals 17:42: 00:00 daily. of (MULTIVITAM 40 :00 Medicin IN ADULT e OR) [place]-3 2020- No Take by Brittany r Fatty Acids 07-27 mouth Colleg e (FISH OIL) 17:42: 00:00 daily. of 1200 MG 34 :00 Medicin CAPS e gabapentin Yes 300mg Take 300 [facility] (NEURONTIN) 1-08 mg by [place] 300 MG 17:41: mouth of capsule 02 daily. Medicin e atorvastati Yes 20mg Take 20 mg [facility] n (LIPITOR) 08 by mouth Shanel ege 20 MG 17:41: daily. of tablet 02 Medicin e FAMOTIDINE Yes 400mg Take 400 [facility] OR 1-08 mg by [place] 17:41: mouth of 02 daily. Medicin e lorazepam Yes 1mg Take [address] [facility] (ATIVAN) 1 07-26 by mouth Colle ge MG tablet 00:00: daily. of 00 Medicin e lorazepam Yes 1mg Take [address] [facility] (ATIVAN) 1 1-07 by mouth Colle ge MG tablet 00:00: daily. of Medicin e lorazepam Yes 1mg Take [address] [facility] (ATIVAN) 1 1-07 by mouth Colle ge MG tablet 00:00: daily. of Medicin e lorazepam Yes 1mg Take [address] [facility] (ATIVAN) 1 1-07 by mouth Colle ge MG tablet 00:00: daily. of Medicin e lorazepam Yes 1mg Take [address] [facility] (ATIVAN) 1 1-07 by mouth Colle ge MG tablet 00:00: daily. of Medicin e lorazepam Yes 1mg Take [address] [facility] (ATIVAN) 1 1-07 by mouth Colle ge MG tablet 00:00: daily. of Medicin e lorazepam Yes 1mg Take [address] [facility] (ATIVAN) 1 1-07 by mouth Colle ge MG tablet 00:00: daily. of Medicin e lorazepam Yes 1mg Take [address] [facility] (ATIVAN) 1 1-07 by mouth Colle ge MG tablet 00:00: daily. of Medicin e lorazepam Yes 1mg Take [address] [facility] (ATIVAN) 1 1-07 by mouth Colle ge MG tablet 00:00: daily. of Medicin e lorazepam Yes 1mg Take [address] [facility] (ATIVAN) 1 1-07 by mouth Colle ge MG tablet 00:00: daily. of Medicin e lorazepam Yes 1mg Take [address] [facility] (ATIVAN) 1 1-07 by mouth Colle ge MG tablet 00:00: daily. of Medicin e triamterene 2019-07 Yes 1{capsu Take 1 U nivers -hydrochlor 2-07 le} capsule by it y of othiazide 20:27: mouth. [place] 37.5-25 [facility] Medical per capsule Branch b complex 2019-07 Yes 1{capsu Take 1 Uni vers vitamins 2-07 le} capsule by ity o f capsule 20:27: mouth. [address] MAGNESIUM 2019-07 Yes Take by [facility] ers GLYCINATE 2-07 mouth. ity of ORAL 20:27: [place] 36 Medical Branch TURMERIC 2019-07 Yes Take by Unive rs ORAL 2-07 mouth. ity of 20:27: [place] [address] Medical Branch ascorbic 2019-07 Yes 500mg Take 500 Univ ers acid, 2-07 mg by ity of vitamin C, 20:27: mouth. [place] 500 mg Medical tablet Branch atorvastati 2019-07 Yes 20mg Take 20 mg Univers n 20 mg 2-07 by mouth. ity of tablet 20:27: [address] Branch baclofen 10 2019-07 Yes 10mg Take 10 mg Univers mg tablet 2-07 by mouth. ity o f 20:27: [address] Branch Biotin 2019-07 Yes Take by Univers 2,500 mcg 2-07 mouth. ity of Cap 20:27: [address] Branch calcium 2019-07 Yes 1{tbl} Take 1 Univer s citrate-vit 2-07 tablet by ity of solomon D3 315 20:27: [place]. [place] mg-5 mcg Medical (200 unit) Branch per tablet polycarboph 2019-07 Yes 625mg Take 625 U nivers [place] 625 mg 2-07 mg by ity of tablet 20:27: mouth. [address] Branch gabapentin 2019-07 Yes 300mg Take 300 Un landen 300 mg 2-07 mg by ity of capsule 20:27: mouth. [address] Branch hydrOXYzine 2019-07 Yes 50mg Take 50 mg Univers 25 mg 2-07 by mouth. ity of tablet 20:27: [address] Branch lactobacill 2019-07 Yes 1{capsu Take 1 U nivers us 2-07 le} capsule by ity of rhamnosus, 20:27: mouth. [place] GG, 10 Medical billion Branch cell capsule lamoTRIgine 2019-07 Yes 50mg Take 50 mg Univers 25 mg 2-07 by mouth. ity of tablet 20:27: [address] Branch levothyroxi 2019-07 Yes 125ug Take 125 U nivers ne 125 mcg 2-07 mcg by ity of tablet 20:27: mouth. [address] Branch multivitami 2019-07 Yes 1{capsu Take 1 U nivers n capsule 2-07 le} capsule by ity of 20:27: mouth. [address] Branch omega-3s-dh 2019-07 Yes Take by Un landen a-epa-fish 2-07 mouth. ity of oil 120 20:27: [place] mg-180 mg- Medical 60 mg-1,200 Branch mg CpDR potassium 2019-07 Yes 10meq Take 10 Univ ers chloride 10 2-07 mEq by ity of mEq CR 20:27: mouth. [place] capsule Medical Branch triamterene 2019-07 Yes 1{capsu Take 1 U nivers -hydrochlor 2-07 le} capsule by it y of othiazide 20:27: mouth. [place] 37.5-25 mg Medical per capsule Branch b complex 2019-07 Yes 1{capsu Take 1 Uni vers vitamins 2-07 le} capsule by ity o f capsule 20:27: mouth. [address] Branch MAGNESIUM 2019-07 Yes Take by Univ ers GLYCINATE 2-07 mouth. ity of ORAL 20:27: [address] Branch TURMERIC 2019-07 Yes Take by Unive rs ORAL 2-07 mouth. ity of 20:27: [address] Branch ascorbic 2019-07 Yes 500mg Take 500 Univ ers acid, 2-07 mg by ity of vitamin C, 20:27: mouth. [place] 500 mg Medical tablet Branch atorvastati 2019-07 Yes 20mg Take 20 mg Univers n 20 mg 2-07 by mouth. ity of tablet 20:27: [address] Branch baclofen 10 2019-07 Yes 10mg Take 10 mg Univers mg tablet 2-07 by mouth. ity o f 20:27: [address] Branch Biotin 2019-07 Yes Take by Univers 2,500 mcg 2-07 mouth. ity of Cap 20:27: [address] Branch calcium 2019-07 Yes 1{tbl} Take 1 Univer s citrate-vit 2-07 tablet by ity of solomon D3 315 20:27: [place]. [place] mg-5 mcg Medical (200 unit) Branch per tablet polycarboph 2019-07 Yes 625mg Take 625 U nivers il 625 mg 2-07 mg by ity of tablet 20:27: mouth. [address] Branch gabapentin 2019-07 Yes 300mg Take 300 Un landen 300 mg 2-07 mg by ity of capsule 20:27: mouth. [address] Branch hydrOXYzine 2019-07 Yes 50mg Take 50 mg Univers 25 mg 2-07 by mouth. ity of tablet 20:27: [address] lactobacill 2019-07 Yes 1{capsu Take 1 U nivers us 2-07 le} capsule by ity of rhamnosus, 20:27: mouth. [place] GG, 10 Medical billion Branch cell capsule lamoTRIgine 2019-07 Yes 50mg Take 50 mg Univers 25 mg 2-07 by mouth. ity of tablet 20:27: [address] Branch levothyroxi 2019-07 Yes 125ug Take 125 U nivers ne 125 mcg 2-07 mcg by ity of tablet 20:27: mouth. [address] Branch multivitami 2019-07 Yes 1{capsu Take 1 U nivers n capsule 2-07 le} capsule by ity of 20:27: mouth. [address] Branch omega-3s-dh 2019-07 Yes Take by Un landen a-epa-fish 2-07 mouth. ity of oil 120 20:27: [place] mg-180 mg- 36 Medical 60 mg-1,200 Branch mg CpDR potassium 2019-07 Yes 10meq Take 10 Univ ers chloride 10 2-07 mEq by ity of mEq CR 20:27: mouth. [place] [id number] Medical Branch triamterene 2019-07 Yes 1{capsu Take 1 U nivers -hydrochlor 2-07 le} capsule by it y of othiazide 20:27: mouth. [place] 37.5-25 mg Medical per capsule Branch b complex 2019-07 Yes 1{capsu Take 1 Uni vers vitamins 2-07 le} capsule by ity o f capsule 20:27: mouth. [place] [id number] Medical Branch MAGNESIUM 2019-07 Yes Take by Univ ers GLYCINATE 2-07 mouth. ity of ORAL 20:27: [address] Branch TURMERIC 2019-07 Yes Take by Unive rs ORAL 2-07 mouth. ity of 20:27: [place] [id number] Medical Branch ascorbic 2019-07 Yes 500mg Take 500 Univ ers acid, 2-07 mg by ity of vitamin C, 20:27: mouth. [place] 500 mg Medical tablet Branch MAGNESIUM 2019-07 Yes Take by Univ ers GLYCINATE 2-07 mouth. ity of ORAL 20:27: [address] Branch atorvastati 2019-07 Yes 20mg Take 20 mg Univers n 20 mg 2-07 by mouth. ity of tablet 20:27: [address] Branch baclofen 10 2019-07 Yes 10mg Take 10 mg Univers mg tablet 2-07 by mouth. ity o f 20:27: [address] Biotin 2019-07 Yes Take by Univers 2,500 mcg 2-07 mouth. ity of Cap 20:27: [address] Branch calcium 2019-07 Yes 1{tbl} Take 1 Univer s citrate-vit 2-07 tablet by ity of solomon D3 315 20:27: [place] mg-5 mcg [place] (200 unit) Branch per tablet polycarboph 2019-07 Yes 625mg Take 625 U nivers [place] 625 mg 2-07 mg by ity of tablet 20:27: mouth. [address] Branch gabapentin 2019-07 Yes 300mg Take 300 Un landen 300 mg 2-07 mg by ity of capsule 20:27: mouth. [address] Branch TURMERIC 2019-07 Yes Take by Unive rs ORAL 2-07 mouth. ity of 20:27: [address] Branch hydrOXYzine 2019-07 Yes 50mg Take 50 mg Univers 25 mg 2-07 by mouth. ity of tablet 20:27: [address] lactobacill 2019-07 Yes 1{capsu Take 1 U nivers us 2-07 le} capsule by ity of rhamnosus, 20:27: mouth. [place] GG, 10 Medical billion Branch cell capsule lamoTRIgine 2019-07 Yes 50mg Take 50 mg Univers 25 mg 2-07 by mouth. ity of tablet 20:27: [address] Branch levothyroxi 2019-07 Yes 125ug Take 125 U nivers ne 125 mcg 2-07 mcg by ity of tablet 20:27: mouth. [address] Branch ascorbic 2019-07 Yes 500mg Take 500 Univ ers acid, 2-07 mg by ity of vitamin C, 20:27: mouth. [place] 500 mg Medical tablet Branch multivitami 2019-07 Yes 1{capsu Take 1 U nivers n capsule 2-07 le} capsule by ity of 20:27: mouth. [address] Branch omega-3s-dh 2019-07 Yes Take by Un landen a-epa-fish 2-07 mouth. ity of oil 120 20:27: [place] mg-180 mg- Medical 60 mg-1,200 Branch mg CpDR potassium 2019-07 Yes 10meq Take 10 Univ ers chloride 10 2-07 mEq by ity of mEq CR 20:27: mouth. [address] Branch atorvastati 2019-07 Yes 20mg Take 20 mg Univers n 20 mg 2-07 by mouth. ity of tablet 20:27: [address] triamterene 2019-07 Yes 1{capsu Take 1 U nivers -hydrochlor 2-07 le} capsule by it y of othiazide 20:27: mouth. [place] 37.5-25 mg Medical per capsule Branch b complex 2019-07 Yes 1{capsu Take 1 Uni vers vitamins 2-07 le} capsule by ity o f capsule 20:27: mouth. [address] MAGNESIUM 2019-07 Yes Take by Univ ers GLYCINATE 2-07 mouth. ity of ORAL 20:27: [address] TURMERIC 2019-07 Yes Take by Unive rs ORAL 2-07 mouth. ity of 20:27: [address] ascorbic 2019-07 Yes 500mg Take 500 Univ ers acid, 2-07 mg by ity of vitamin C, 20:27: mouth. [place] 500 mg Medical [facility] Branch atorvastati 2019-07 Yes 20mg Take 20 mg Univers n 20 mg 2-07 by mouth. ity of tablet 20:27: [address] baclofen 10 2019-07 Yes 10mg Take 10 mg Univers mg tablet 2-07 by mouth. ity o f 20:27: [address] Biotin 2019-07 Yes Take by Univers 2,500 mcg 2-07 mouth. ity of Cap 20:27: [address] calcium 2019-07 Yes 1{tbl} Take 1 Univer s citrate-vit 2-07 tablet by ity of solomon D3 315 20:27: [place]. [place] mg-5 mcg Medical (200 unit) Branch per tablet polycarboph 2019-07 Yes 625mg Take 625 U nivers il 625 mg 2-07 mg by ity of tablet 20:27: mouth. [address] gabapentin 2019-07 Yes 300mg Take 300 Un landen 300 mg 2-07 mg by ity of capsule 20:27: mouth. [address] baclofen 10 2019-07 Yes 10mg Take 10 mg Univers mg tablet 2-07 by mouth. ity o f 20:27: [address] hydrOXYzine 2019-07 Yes 50mg Take 50 mg Univers 25 mg 2-07 by mouth. ity of tablet 20:27: [address] lactobacill 2019-07 Yes 1{capsu Take 1 U nivers us 2-07 le} capsule by ity of rhamnosus, 20:27: mouth. [place] GG, 10 Medical billion Branch cell capsule lamoTRIgine 2019-07 Yes 50mg Take 50 mg Univers 25 mg 2-07 by mouth. ity of tablet 20:27: [address] levothyroxi 2019-07 Yes 125ug Take 125 U nivers ne 125 mcg 2-07 mcg by ity of tablet 20:27: mouth. [address] multivitami 2019-07 Yes 1{capsu Take 1 U nivers n capsule 2-07 le} capsule by ity of 20:27: mouth. [address] Branch omega-3s-dh 2019-07 Yes Take by Un landen a-epa-fish 2-07 mouth. ity of oil 120 20:27: [place] mg-180 mg- Medical 60 mg-1,200 Branch mg CpDR potassium 2019-07 Yes 10meq Take 10 Univ ers chloride 10 2-07 mEq by ity of mEq CR 20:27: mouth. [address] Branch Biotin 2019-07 Yes Take by Univers 2,500 mcg 2-07 mouth. ity of Cap 20:27: [address] Branch triamterene 2019-07 Yes 1{capsu Take 1 U nivers -hydrochlor 2-07 le} capsule by it y of othiazide 20:27: mouth. [place] 37.5-25 mg Medical per capsule Branch b complex 2019-07 Yes 1{capsu Take 1 Uni vers vitamins 2-07 le} capsule by ity o f capsule 20:27: mouth. [address] calcium 2019-07 Yes 1{tbl} Take 1 Univer s citrate-vit 2-07 tablet by ity of solomon D3 315 20:27: [place]. [place] mg-5 mcg Medical (200 unit) Branch per tablet polycarboph 2019-07 Yes 625mg Take 625 U nivers il 625 mg 2-07 mg by ity of tablet 20:27: mouth. [address] Branch gabapentin 2019-07 Yes 300mg Take 300 Un landen 300 mg 2-07 mg by ity of capsule 20:27: mouth. [address] Branch hydrOXYzine 2019-07 Yes 50mg Take 50 mg Univers 25 mg 2-07 by mouth. ity of tablet 20:27: [place] 36 Medical Branch lactobacill 2019-07 Yes 1{capsu Take 1 U nivers us 2-07 le} capsule by ity of rhamnosus, 20:27: mouth. [place] GG, 10 Medical billion Branch cell capsule lamoTRIgine 2019-07 Yes 50mg Take 50 mg Univers 25 mg 2-07 by mouth. ity of tablet 20:27: [place] [address] Medical Branch levothyroxi 2019-07 Yes 125ug Take 125 U nivers ne 125 mcg 2-07 mcg by ity of tablet 20:27: mouth. [address] Branch multivitami 2019-07 Yes 1{capsu Take 1 U nivers n capsule 2-07 le} capsule by ity of 20:27: mouth. [address] Branch omega-3s-dh 2019-07 Yes Take by Un landen a-epa-fish 2-07 mouth. ity of oil 120 20:27: [place] mg-180 mg- Medical 60 mg-1,200 Branch mg CpDR potassium 2019-07 Yes 10meq Take 10 Univ ers chloride 10 2-07 mEq by ity of mEq CR 20:27: mouth. [place] [id number] Medical Branch triamterene 2019-07 Yes 1{capsu Take 1 U nivers -hydrochlor 2-07 le} capsule by it y of othiazide 20:27: mouth. [place] 37.5-25 mg Medical per capsule Branch b complex 2019-07 Yes 1{capsu Take 1 Uni vers vitamins 2-07 le} capsule by ity o f capsule 20:27: mouth. [place] [address] Medical Branch MAGNESIUM 2019-07 Yes Take by Univ ers GLYCINATE 2-07 mouth. ity of ORAL 20:27: [address] Branch TURMERIC 2019-07 Yes Take by Unive rs ORAL 2-07 mouth. ity of 20:27: [place] [address] Medical Branch ascorbic 2019-07 Yes 500mg Take 500 Univ ers acid, 2-07 mg by ity of vitamin C, 20:27: mouth. [place] 500 mg Medical tablet Branch atorvastati 2019-07 Yes 20mg Take 20 mg Univers n 20 mg 2-07 by mouth. ity of tablet 20:27: [address] Branch baclofen 10 2019-07 Yes 10mg Take 10 mg Univers mg tablet 2-07 by mouth. ity o f 20:27: [address] Branch Biotin 2019-07 Yes Take by Univers 2,500 mcg 2-07 mouth. ity of Cap 20:27: [address] Branch calcium 2019- Yes 1{tbl} Take 1 Univer s citrate-vit 2-07 tablet by ity of solomon D3 315 20:27: [place]. [place] mg-[address] [place] [id number] (200 unit) Branch per tablet polycarboph 2019-07 Yes 625mg Take 625 U nivers il 625 mg 2-07 mg by ity of tablet 20:27: mouth. [address] gabapentin 2019-07 Yes 300mg Take 300 Un landen 300 mg 2-07 mg by ity of capsule 20:27: mouth. [address] Branch hydrOXYzine 2019-07 Yes 50mg Take 50 mg Univers 25 mg 2-07 by mouth. ity of tablet 20:27: [address] lactobacill 2019-07 Yes 1{capsu Take 1 U nivers us 2-07 le} capsule by ity of rhamnosus, 20:27: mouth. [place] GG, [address] [place] [address] billion Branch cell capsule lamoTRIgine 2019-07 Yes 50mg Take 50 mg Univers 25 mg 2-07 by mouth. ity of tablet 20:27: [address] levothyroxi 2019-07 Yes 125ug Take 125 U nivers ne 125 mcg 2-07 mcg by ity of tablet 20:27: mouth. [address] multivitami 2019-07 Yes 1{capsu Take 1 U nivers n capsule 2-07 le} capsule by ity of 20:27: mouth. [address] omega-3s-dh 2019-07 Yes Take by Un landen a-epa-fish 2-07 mouth. ity of oil 120 20:27: [place] mg-180 mg- Medical 60 mg-1,200 Branch mg CpDR potassium 2019-07 Yes 10meq Take 10 Univ ers chloride 10 2-07 mEq by ity of mEq CR 20:27: mouth. [place] capsule Medical Branch gabapentin 2019- Yes TK 1 C PO Un landen 100 mg 2-04 IN THE ity of capsule 00:00: MORNING [place] 00 AND AT [facility] NOON [facility] Branch gabapentin 2019-07 Yes TK 1 C PO Un landen 100 mg 2-04 IN THE ity of capsule 00:00: MORNING 00 AND [facility] Yes TK 1 C PO Un landen 100 mg 2-04 IN THE ity of capsule 00:00: MORNING AND AT [facility] gabapentin 2019-07 Yes TK 1 C PO Un landen 100 mg 2-04 IN THE ity of capsule 00:00: MORNING AND AT [facility] gabapentin 2019-07 Yes TK 1 C PO Un landen 100 mg 2-04 IN THE ity of capsule 00:00: MORNING AND AT [facility] gabapentin 2019-07 Yes TK 1 C PO Un landen 100 mg 2-04 IN THE ity of capsule 00:00: MORNING [place] AND AT [facility] spironolact 2019-07 Yes TK 1 T PO U nivers one 25 mg 2-03 BID ity of tablet 00:00: [place] [facility] spironolact 2020- Yes TK 1 T PO U nivers one 25 mg 2-03 BID ity of tablet 00:00: [place] [facility] spironolact 2020 Yes TK 1 T PO U nivers one 25 mg 2-03 BID ity of tablet 00:00: [place] [facility] spironolact 2019-07 Yes TK 1 T PO U nivers one 25 mg 2-03 BID ity of tablet 00:00: [place] [facility] spironolact 2020 Yes TK 1 T PO U nivers one 25 mg 2-03 BID ity of tablet 00:00: [place] [facility] spironolact 2020 Yes TK 1 T PO U nivers one 25 mg 2-03 BID ity of tablet 00:00: [place] [facility] Branch baclofen 10 2020- Yes TK 1 T PO U nivers mg tablet 1-24 BID ity of 00:00: [place] [facility] Branch baclofen 10 2019- Yes TK 1 T PO U nivers mg tablet 1-24 BID ity of 00:00: [place] [facility] Branch baclofen 10 2019- Yes TK 1 T PO U nivers mg tablet 1-24 BID ity of 00:00: [place] [facility] Branch baclofen 10 2019- Yes TK 1 T PO U nivers mg tablet 1-24 BID ity of 00:00: [place] [facility] Branch baclofen 10 2019- Yes TK 1 T PO U nivers mg tablet 1-24 BID ity of 00:00: [place] [facility] Branch baclofen 10 2019-1 Yes TK 1 T PO U nivers mg tablet 1-24 BID ity of 00:00: [facility] famotidine 2019-07 Yes TK 1 T PO Un landen 40 mg 1-23 D HS ity of tablet 00:00: [facility] famotidine 2019-07 Yes TK 1 T PO Un landen 40 mg 1-23 D HS ity of tablet 00:00: [facility] famotidine 2019-07 Yes TK 1 T PO Un landen 40 mg 1-23 D HS ity of tablet 00:00: [place] [facility] famotidine 2019-07 Yes TK 1 T PO Un landen 40 mg 1-23 D HS ity of tablet 00:00: [place] [facility] famotidine 2019-07 Yes TK 1 T PO Un landen 40 mg 1-23 D HS ity of tablet 00:00: [place] [facility] famotidine 2019-07 Yes TK 1 T PO Un landen 40 mg 1-23 D HS ity of tablet 00:00: [place] [facility] levothyroxi 2019-07 Yes 125ug Take 125 B aylor ne 1-19 mcg by [place] (SYNTHROID) 14:29: mouth of 125 MCG 07 daily. Medicin tablet e gabapentin 2019-07 Yes 500mg Take 500 Ba ylor (NEURONTIN) 1-19 mg by [place] 300 MG 14:29: mouth of capsule 07 daily. Medicin e atorvastati 2019-07 Yes 20mg Take 20 mg [facility] n (LIPITOR) 1-19 by mouth Shanel ege 20 MG 14:29: daily. of tablet 07 Medicin e baclofen 2019-07 Yes 10mg Take [address] [place] dayan (LIORESAL) 1-19 by mouth Colle ge 10 MG 14:29: two times of tablet 07 daily. Medicin e Multiple 2019-[address] [place] Vitamins-Mi -19 mouth [place] nerals 14:29: daily. of (MULTIVITAM 07 Medicin IN ADULT e OR) B Complex 2019-[address] [place] or Vitamins (B 19 mouth [place] COMPLEX 1 14:29: daily. of OR) 07 Medicin e Calcium 2019-07 Yes Take by [facility] Citrate-Vit -19 mouth two Col lege solomon D 14:29: times of (CALCIUM 07 daily. Medicin CITRATE + D e OR) [place]-3 2019-07 Yes Take by [facility] Fatty Acids - mouth [place] (FISH OIL) 14:29: daily. of 1200 MG 07 Medicin CAPS e Lactobacill 2019-07 Yes Take by fausto us 08-07 mouth [place] (PROBIOTIC 14:29: daily. of ACIDOPHILUS Medicin OR) e BIOTIN 5000 2019-07 Yes Take by ylor OR 08-07 mouth [place] 14:29: daily. of 07 Medicin e L-THEANINE 2019-07 Yes 200mg Take 200 Ba ylor OR 1-19 mg by College 14:29: mouth of 07 daily. Medicin e Ascorbic 2019-07 Yes Take by [facility] r Acid 08-07 mouth [place] (VITAMIN C) 14:29: daily. of 500 MG CAPS Medicin e Magnesium 2019-07 Yes Take by [facility] or 400 MG TABS 08-07 mouth. Colleg e 14:29: of 07 Medicin e Lidocaine 2019-07 Yes Apply [place] 0.5 % GEL 08-07 topically. Shanel ege 14:29: of 07 Medicin e levothyroxi 2019-07 Yes 125ug Take 125 B aylor ne - mcg by [place] (SYNTHROID) 14:29: mouth of 125 MCG 07 daily. Medicin tablet e gabapentin 2019-07 Yes 500mg Take 500 Ba ylor (NEURONTIN) 1-19 mg by [place] 300 MG 14:29: mouth of capsule 07 daily. Medicin e atorvastati 2019-07 Yes 20mg Take 20 mg [facility] n (LIPITOR) 08-07 by mouth Shanel ege 20 MG 14:29: daily. of tablet 07 Medicin e baclofen 2019-07 Yes 10mg Take [address] [place] dayna (LIORESAL) 08-07 by mouth Colle ge 10 MG 14:29: two times of tablet 07 daily. Medicin e Multiple 2019-07 Yes Take by [facility] Vitamins-Mi 08-07 mouth [place] nerals 14:29: daily. of (MULTIVITAM 07 Medicin IN ADULT e OR) B Complex 2019-07 Yes Take by [facility] or Vitamins (B 08-07 mouth College COMPLEX 1 14:29: daily. of OR) 07 Medicin e Calcium 2019-07 Yes Take by [facility] Citrate-Vit 08-07 mouth two Col lege solomon D 14:29: times of (CALCIUM 07 daily. Medicin CITRATE + D e OR) [place]-3 2019-07 Yes Take by [facility] Fatty Acids 08-07 mouth [place] (FISH OIL) 14:29: daily. of 1200 MG 07 Medicin CAPS e Lactobacill 2019-07 Yes Take by Zachariah lambert us 08-07 mouth College (PROBIOTIC 14:29: daily. of ACIDOPHILUS 07 Medicin OR) e BIOTIN 5000 2019-07 Yes Take by ylor OR 08-07 mouth [place] 14:29: daily. of 07 Medicin e L-THEANINE 2019-07 Yes 200mg Take 200 Ba ylor OR -19 mg by [place] 14:29: mouth of 07 daily. Medicin e Ascorbic 2019-07 Yes Take by [facility] Acid 08-07 mouth [place] (VITAMIN C) 14:29: daily. of 500 MG CAPS Medicin e Magnesium 2019-07 Yes Take by [facility] or 400 MG TABS 08-07 mouth. Colleg e 14:29: of 07 Medicin e Lidocaine 2019-07 Yes Apply [place]el[place] 0.5 % GEL 08-07 topically. Shanel ege 14:29: of 07 Medicin e Turmeric 2019-07 2020- No Take by [facility] or Curcumin -06-07 mouth. [place] 500 MG CAPS 14:29: 00:00 of 06 :00 Medicin e Calcium 2019-07 2020- No Take by [facility] Polycarboph -06-07 mouth 3 Shanel ege il 14:26: 00:00 times of (FIBER-CAPS 48 :00 daily. Medici n OR) e Calcium 2019-07 2020- No 625mg Take 625 [facility] or Polycarboph -07 06- mg by Colleg e il (FIBER) 14:26: 00:00 mouth. of 625 MG TABS 38 :00 Medicin e ascorbic 2019-07 2020- No 500mg Take 500 [place] dayna acid 500 MG -07 06- mg by Colleg e tablet 14:25: 00:00 mouth. of 41 :00 Medicin e lidocaine-p 2019-07 Yes Univer s rilocaine 1-14 ity of 2.5-2.5 % 00:00: [place] cream 00 Medical Branch lidocaine-p 2019-07 Yes Univer s rilocaine 1-14 ity of 2.5-2.5 % 00:00: [place] cream 00 Medical Branch lidocaine-p 2019- Yes Univer s rilocaine 1-14 ity of 2.5-2.5 % 00:00: [place] cream Medical Branch lidocaine-p 2019- Yes Univer s rilocaine 1-14 ity of 2.5-2.5 % 00:00: [place] cream Medical Branch lidocaine-p 2019- Yes Univer s rilocaine 1-14 ity of 2.5-2.5 % 00:00: [place] cream Medical Branch lidocaine-p 2019- Yes Univer s rilocaine 1-14 ity of 2.5-2.5 % 00:00: [place] cream Medical Branch lidocaine-p 2019- 2020- No [facility] [place] rilocaine 1-14 06-07 [place] ([facility]) 00:00: 00:00 of 2.5-2.5 % 00 :00 Medicin cream e risperiDONE 2019-07 Yes TK 1 T PO U nivers 0.25 mg 1-11 BID ity of tablet 00:00: [place] [facility] Branch LORazepam 2019-07 Yes TK 1 T PO Uni vers 0.5 mg 1-11 TID PRN ity of tablet 00:00: FOR [place] ANXIETY Medical Branch risperiDONE 2019-07 Yes TK 1 T PO U nivers 0.25 mg 1-11 BID ity of tablet 00:00: [place] [facility] LORazepam 2019-07 Yes TK 1 T PO Uni vers 0.5 mg 1-11 TID PRN ity of tablet 00:00: FOR [place] ANXIETY Medical Branch risperiDONE 2019- Yes TK 1 T PO U nivers 0.25 mg 1-11 BID ity of tablet 00:00: [place] [facility] LORazepam 2019-07 Yes TK 1 T PO Uni vers 0.5 mg 1-11 TID PRN ity of tablet 00:00: FOR [place] ANXIETY Medical Branch risperiDONE 2019- Yes TK 1 T PO U nivers 0.25 mg 1-11 BID ity of tablet 00:00: [place] [facility] LORazepam 2019- Yes TK 1 T PO Uni vers 0.5 mg 1-11 TID PRN ity of tablet 00:00: FOR [place] ANXIETY Medical Branch risperiDONE 2019- Yes TK 1 T PO U nivers 0.25 mg 1-11 BID ity of tablet 00:00: [place] [facility] LORazepam 2019- Yes TK 1 T PO Uni vers 0.5 mg 1-11 TID PRN ity of tablet 00:00: FOR ANXIETY Medical Branch risperiDONE 2019- Yes TK 1 T PO U nivers 0.25 mg 1-11 BID ity of tablet 00:00: [place] [facility] LORazepam 2019-07 Yes TK 1 T PO Uni vers 0.5 mg 1-11 TID PRN ity of tablet 00:00: FOR [place] ANXIETY Medical Branch atorvastati 2019-07 Yes TK 1 T PO U nivers n 20 mg 1-03 D HS ity of tablet 00:00: [place] [facility] atorvastati 2019- Yes TK 1 T PO U nivers n 20 mg 1-03 D HS ity of tablet 00:00: [place] [facility] atorvastati 2019-07 Yes TK 1 T PO U nivers n 20 mg 1-03 D HS ity of tablet 00:00: [place] [facility] atorvastati 2019-07 Yes TK 1 T PO U nivers n 20 mg 1-03 D HS ity of tablet 00:00: [place] [facility] atorvastati 2019-07 Yes TK 1 T PO U nivers n 20 mg 1-03 D HS ity of tablet 00:00: [place] [facility] atorvastati 2019-07 Yes TK 1 T PO U nivers n 20 mg 1-03 D HS ity of tablet 00:00: [place] [facility] Branch nitrofurant 2019-07 Yes TK ONE C Un landen oin 100 mg 1-02 PO BID ity of capsule 00:00: [place] [facility] Branch ondansetron 2019-07 Yes TK 1 T PO U nivers 4 mg tablet 1-02 Q 8 H PRF ity of 00:00: NAUSEA [facility] Branch nitrofurant 2019-07 Yes TK ONE C Un landen oin 100 mg 1-02 PO BID ity of capsule 00:00: [place] [facility] ondansetron 2019-07 Yes TK 1 T PO U nivers 4 mg tablet 1-02 Q 8 H PRF ity of 00:00: NAUSEA [place] [facility] nitrofurant 2019-07 Yes TK ONE C Un landen oin 100 mg 1-02 PO BID ity of capsule 00:00: [place] [facility] ondansetron 2019-07 Yes TK 1 T PO U nivers 4 mg tablet 1-02 Q 8 H PRF ity of 00:00: NAUSEA [facility] nitrofurant 2019-07 Yes TK ONE C Un landen oin 100 mg 1-02 PO BID ity of capsule 00:00: [facility] ondansetron 2019-07 Yes TK 1 T PO U nivers 4 mg tablet 1-02 Q 8 H PRF ity of 00:00: NAUSEA [facility] nitrofurant 2019-07 Yes TK ONE C Un landen oin 100 mg 1-02 PO BID ity of capsule 00:00: [facility] ondansetron 2019-07 Yes TK 1 T PO U nivers 4 mg tablet 1-02 Q 8 H PRF ity of 00:00: NAUSEA [facility] nitrofurant 2019-07 Yes TK ONE C Un landen oin 100 mg 1-02 PO BID ity of capsule 00:00: [facility] ondansetron 2019-07 Yes TK 1 T PO U nivers 4 mg tablet 1-02 Q 8 H PRF ity of 00:00: NAUSEA [facility] ondansetron 2019-07 Yes [id number] 4mg Take 1 Tab [facility] (ZOFRAN) 4 1-02 by mouth Colle ge MG tablet 00:00: every 8 of 00 hours as Medicin needed for e Nausea. nitrofurant 2019-07 Yes TK ONE C Ba ylor oin 1-02 PO BID College (MACRODANTI 00:00: of N) 100 MG 00 Medicin capsule e ondansetron 2019-07 Yes [id number] 4mg Take 1 Tab [facility] (ZOFRAN) 4 1-02 by mouth Colle ge MG tablet 00:00: every 8 of 00 hours as Medicin needed for e Nausea. ondansetron 2019-07 Yes [id number] 4mg Take 1 Tab [facility] (ZOFRAN) 4 1-02 by mouth Colle ge MG tablet 00:00: every 8 of 00 hours as Medicin needed for e Nausea. ondansetron 2019-07 Yes [id number] 4mg Take 1 Tab [facility] (ZOFRAN) 4 1-02 by mouth Colle ge MG tablet 00:00: every 8 of 00 hours as Medicin needed for e Nausea. ondansetron 2019-07- No [id number] 4mg Take 1 Tab [facility] (ZOFRAN) 4 1-02 -18 by mouth Shanel ege MG tablet 00:00: 00:00 every 8 of 00 :00 hours as Medicin needed for e Nausea. nitrofurant 2019-07- No TK ONE C B aylor oin 07-21-08 PO BID [place] (MACRODANTI 00:00: 00:00 of N) 100 MG 00 :00 Medicin capsule e KLOR-CON 20 2019-07 Yes TK 1 Univer s mEq packet 0-30 PACKET PO ity of 00:00: QD FOR 7 [place] DAYS. Medical Branch KLOR-CON 2019-07 Yes TK 1 Univer s mEq packet 0-30 PACKET PO ity of 00:00: QD FOR 7 DAYS. [facility] Branch KLOR-CON 20 2019-07 Yes TK 1 Univer s mEq packet 0-30 PACKET PO ity of 00:00: QD FOR 7 DAYS. [facility] Branch KLOR-CON 20 2019-07 Yes TK 1 Univer s mEq packet 0-30 PACKET PO ity of 00:00: QD FOR 7 DAYS. [facility] Branch KLOR-CON 20 2019-07 Yes TK 1 Univer s mEq packet 0-30 PACKET PO ity of 00:00: QD FOR 7 DAYS. [facility] Branch KLOR-CON 20 2019-07 Yes TK 1 Univer s mEq packet 0-30 PACKET PO ity of 00:00: QD FOR 7 DAYS. Medical Branch triamterene 2019-07 2020- No 1{capsu Take 1 Cap [facility] -hydrochlor 0-27 10-27 le} by mouth Col lege othiazide 19:49: 00:00 every of (DYAZIDE) 07 :00 morning. Medici n 37.5-25 MG e per capsule potassium 2019-07- No 10meq Take 10 [place] dayna chloride 0-27 10-27 mEq by [place] (MICRO-K) 19:49: 00:00 mouth of 10 MEQ 07 :00 daily. Medicin capsule e lamoTRIgine 2019-07- No 50mg Take 50 mg [facility] 50 MG TBDP 0-27 10-27 by mouth Shanel ege 19:49: 00:00 two times of 07 :00 daily. Medicin e ciprofloxac 2019-07 Yes TK 1 T PO U nivers in HCl 250 0-25 BID ity of mg tablet 00:00: [place] 00 Medical Branch ciprofloxac Yes TK 1 T PO U nivers in HCl 250 0-25 BID ity of mg tablet 00:00: [place] [facility] ciprofloxac 2020- Yes TK 1 T PO U nivers in HCl 250 0-25 BID ity of mg tablet 00:: [place] [facility] ciprofloxac 2019-07 Yes TK 1 T PO U nivers in HCl 250 0-25 BID ity of mg tablet 00:00: [place] [facility] ciprofloxac 2019- Yes TK 1 T PO U nivers in HCl 250 0-25 BID ity of mg tablet 00:00: [place] [facility] ciprofloxac 2019-07 Yes TK 1 T PO U nivers in HCl 250 0-25 BID ity of mg tablet 00:00: [place] [facility] spironolact 2020- Yes 1{tbl} Take 1 Ba ylor one 0-21 Tablet by [place] (ALDACTONE) 00:00: mouth. 2 of 25 MG 00 in the Medicin tablet morning e and 1 at night spironolact 2020-1 Yes 1{tbl} Take 1 Ba ylor one 0-21 Tablet by [place] (ALDACTONE) 00:00: mouth. 2 of 25 MG 00 in the Medicin tablet morning e and 1 at night spironolact 2020-1 Yes 1{tbl} Take 1 Ba ylor one 0-21 Tablet by [place] (ALDACTONE) 00:00: mouth. 2 of 25 MG 00 in the Medicin tablet morning e and 1 at night spironolact 2020-1 Yes 1{tbl} Take 1 Ba ylor one 0-21 Tablet by [facility] (ALDACTONE) 00:00: mouth. 2 of 25 MG 00 in the Medicin tablet morning e and 1 at night spironolact 2020-1 Yes 1{tbl} Take 1 Ba ylor one 0-21 Tablet by [facility] (ALDACTONE) 00:00: mouth. 2 of 25 MG 00 in the Medicin tablet morning e and 1 at night spironolact 2020-1 Yes 1{tbl} Take 1 Ba ylor one 0-21 Tablet by [facility] (ALDACTONE) 00:00: mouth. 2 of 25 MG 00 in the Medicin tablet morning e and 1 at night spironolact 2020-1 Yes 1{tbl} Take 1 [facility] one 0-21 Tablet by [place] (ALDACTONE) 00:00: mouth. 2 of 25 MG 00 in the Medicin tablet morning e and 1 at night spironolact 2020-1 Yes 1{tbl} Take 1 [facility] one 0-21 Tablet by [place] (ALDACTONE) 00:00: mouth. 2 of 25 MG 00 in the Medicin tablet morning e and 1 at night spironolact 2020-1 Yes 1{tbl} Take 1 Tab [facility] one 0-21 by mouth College (ALDACTONE) 00:00: daily. of 25 MG 00 Medicin tablet e spironolact 2020-1 Yes 1{tbl} Take 1 Tab [facility] one 0-21 by mouth [facility] (ALDACTONE) 00:00: daily. of 25 MG 00 Medicin tablet e spironolact 2020-1 Yes 1{tbl} Take 1 [facility] one 0-21 Tablet by [place] (ALDACTONE) 00:00: mouth. 2 of 25 MG 00 in the Medicin tablet morning e and 1 at night spironolact 2020-1 Yes 1{tbl} Take 1 [facility] one 0-21 Tablet by [place] (ALDACTONE) 00:00: mouth. 2 of 25 MG 00 in the Medicin tablet morning e and 1 at night spironolact 2020-1 Yes 1{tbl} Take 1 [facility] one 0-21 Tablet by [place] (ALDACTONE) 00:00: mouth. 2 of 25 MG 00 in the Medicin tablet morning e and 1 at night LORazepam 1 2020- Yes Univer s mg tablet 0-14 ity of 00:00: [facility] LORazepam 1 2020- Yes Univer s mg tablet 0-14 ity of 00:00: [facility] LORazepam 1 2020- Yes Univer s mg tablet 0-14 ity of 00:00: [facility] LORazepam 1 2020-1 Yes Univer s mg tablet 0-14 ity of 00:00: [facility] LORazepam 1 2020- Yes Univer s mg tablet 0-14 ity of 00:00: [facility] LORazepam 1 2020-1 Yes Univer s mg tablet 0-14 ity of 00:00: [place] [facility] lorazepam 2020-1 2020- No [facility] (ATIVAN) 1 0-14 11-19 College MG tablet 00:00: 00:00 of 00 :00 Medicin e levothyroxi 2019-07 Yes TK 1 T PO U nivers ne 112 mcg 0-11 D ity of tablet 00:00: [place] [facility] levothyroxi 2019-07 Yes TK 1 T PO U nivers ne 112 mcg 0-11 D ity of tablet 00:00: [place] [facility] levothyroxi 2019-07 Yes TK 1 T PO U nivers ne 112 mcg 0-11 D ity of tablet 00:00: [place] [facility] levothyroxi 2019-07 Yes TK 1 T PO U nivers ne 112 mcg 0-11 D ity of tablet 00:00: [place] [facility] levothyroxi 2019-07 Yes TK 1 T PO U nivers ne 112 mcg 0-11 D ity of tablet 00:00: [place] [facility] levothyroxi 2019-07 Yes TK 1 T PO U nivers ne 112 mcg 0-11 D ity of tablet 00:00: [address] acetaminoph 2019-07 2020- No 1{tbl} Take 1 Tab [facility] en-codeine 0-09 10-09 by mouth [facility] (TYLENOL 19:38: 00:00 every 8 of #3) 300-30 58 :00 hours. Medicin MG per e tablet triamterene 2019-07 Yes 1{capsu Take 1 Cap [facility] -hydrochlor 0-09 le} by mouth [facility] othiazide 19:38: every of (DYAZIDE) 49 morning. Medici n 37.5-25 MG e per capsule potassium 2019-07 Yes 10meq Take 10 [facility] chloride 0-09 mEq by [place] (MICRO-K) 19:38: mouth of 10 MEQ 49 daily. Medicin capsule e levothyroxi 2019-07 Yes 125ug Take 125 B [facility] ne 0-09 mcg by [place] (SYNTHROID) 19:38: mouth of 125 MCG 49 daily. Medicin tablet e gabapentin 2019-07 Yes 500mg Take 500 [facility] (NEURONTIN) 0-09 mg by [place] 300 MG 19:38: mouth of capsule 49 daily. Medicin e atorvastati 2019-07 Yes 20mg Take 20 mg [facility] n (LIPITOR) 0-09 by mouth [facility] 20 MG 19:38: daily. of tablet 49 Medicin e lamoTRIgine 2019-07 Yes 50mg Take 50 mg [facility] 50 MG TBDP 0-09 by mouth Colle ge 19:38: two times of 49 daily. Medicin e baclofen 2019-07 Yes 10mg Take [address] [place] [facility] (LIORESAL) 0-09 by mouth Colle ge 10 MG 19:38: two times of tablet 49 daily. Medicin e Multiple 2019-07 Yes Take by [facility] Vitamins-Mi 0-09 mouth [place] nerals 19:38: daily. of (MULTIVITAM 49 Medicin IN ADULT e OR) B Complex 2019-[address] [place] Vitamins (B 0-09 mouth College COMPLEX 1 19:38: daily. of OR) 49 Medicin e Calcium 2019-07 Yes Take by [facility] Citrate-Vit 0-09 mouth two Col lege solomon D 19:38: times of (CALCIUM 49 daily. Medicin CITRATE + D e OR) [place]-3 2019-07 Yes Take by [facility] Fatty Acids 0-09 mouth [place] (FISH OIL) 19:38: daily. of 1200 MG 49 Medicin CAPS e Lactobacill 2019-07 Yes Take by fausto us 0-09 mouth [place] (PROBIOTIC 19:38: daily. of ACIDOPHILUS 49 Medicin OR) e Calcium 2019-07 Yes Take by [facility] Polycarboph 0-09 mouth 3 Colle ge il 19:38: times of (FIBER-CAPS 49 daily. Medici n OR) e BIOTIN 5000 2019-07 [facility] [place] 19:38: daily. of 49 Medicin e L-THEANINE 2019-07 Yes 200mg Take 200 [facility] OR 0-09 mg by College 19:38: mouth of 49 daily. Medicin e Ascorbic 2019-07 Yes Take by [facility] r Acid 0-09 mouth [place] (VITAMIN C) 19:38: daily. of 500 MG CAPS 49 Medicin e Turmeric 2019-07 Yes Take by [facility] r Curcumin 0-09 mouth. College 500 MG CAPS 19:38: of 49 Medicin e Magnesium 2019-07 Yes Take by [facility] or 400 MG TABS 0-09 mouth. Colleg e 19:38: of 49 Medicin e Lidocaine 2019-07 Yes Apply [facility] 0.5 % GEL 0-09 topically. [facility] 19:38: of 49 Medicin e levothyroxi 2019-07 Yes 125ug Take 125 [facility] ne 0-09 mcg by College (SYNTHROID) 19:38: mouth of 125 MCG 49 daily. Medicin tablet e gabapentin 2019-07 Yes 500mg Take 500 [facility] (NEURONTIN) 0-09 mg by [place] 300 MG 19:38: mouth of capsule 49 daily. Medicin e atorvastati 2019-07 Yes 20mg Take 20 mg [facility] n (LIPITOR) 0-09 by mouth [facility] 20 MG 19:38: daily. of tablet 49 Medicin e baclofen 2019-07 Yes 10mg Take [address] [place] [facility] (LIORESAL) 0-09 by mouth Colle ge 10 MG 19:38: two times of tablet 49 daily. Medicin e Multiple 2019-07 Yes Take by [facility] Vitamins-Mi 0-09 mouth [place] nerals 19:38: daily. of (MULTIVITAM 49 Medicin IN ADULT e OR) B Complex 2019-[address] [place] Vitamins (B 0-09 mouth [place] COMPLEX 1 19:38: daily. of OR) 49 Medicin e Calcium 2019-07 Yes Take by [facility] Citrate-Vit 0-09 mouth two Col [facility] solomon D 19:38: times of (CALCIUM 49 daily. Medicin CITRATE + D e OR) [place]-3 2019-07 Yes Take by [facility] Fatty Acids 0-09 mouth [place] (FISH OIL) 19:38: daily. of 1200 MG 49 Medicin CAPS e Lactobacill 2019-07 Yes Take by [facility] 0-09 mouth College (PROBIOTIC 19:38: daily. of ACIDOPHILUS 49 Medicin OR) e Calcium 2019-07 Yes Take by [facility] Polycarboph 0-09 mouth 3 Colle ge il 19:38: times of (FIBER-CAPS 49 daily. Medici n OR) e BIOTIN 5000 2019-07 Yes Take by ylor OR 0-09 mouth College 19:38: daily. of 49 Medicin e L-THEANINE 2019-07 Yes 200mg Take 200 [facility] OR 0-09 mg by [facility] 19:38: mouth of 49 daily. Medicin e Ascorbic 2019-07 Yes Take by [facility] Acid 0-09 mouth [place] (VITAMIN C) 19:38: daily. of 500 MG CAPS 49 Medicin e Turmeric 2019-07 Yes Take by [facility] Curcumin 0-09 mouth. College 500 MG CAPS 19:38: of 49 Medicin e Magnesium 2019-07 Yes Take by [facility] 400 MG TABS 0-09 mouth. Colleg e 19:38: of 49 Medicin e Lidocaine 2019-07 Yes Apply [facility] 0.5 % GEL 0-09 topically. [facility] 19:38: of 49 Medicin e potassium 2019-07 Yes 20meq Take 1 Tab [facility] chloride SA 0-09 by mouth [facility] (K-DUR, 00:00: two times of KLOR-CON 00 daily. Medicin M20) 20 MEQ e tablet gabapentin 2019-07 Yes TK 1 C PO Un [place] 300 mg 0-06 HS ity of capsule 00:00: [facility] gabapentin 2019-07 Yes TK 1 C PO Un [facility] 300 mg 0-06 HS ity of capsule 00:00: [facility] gabapentin 2019- Yes TK 1 C PO Un [facility] 300 mg 0-06 HS ity of capsule 00:00: [facility] [place] [facility] gabapentin 2019-07 Yes TK 1 C PO Un [facility] 300 mg 0-06 HS ity of capsule 00:00: [facility] gabapentin 2019- Yes TK 1 C PO Un [facility] 300 mg 0-06 HS ity of capsule 00:00: [facility] gabapentin 2019- Yes TK 1 C PO Un [facility] 300 mg 0-06 HS ity of capsule 00:00: [facility] hydrOXYzine 2019-07 Yes Univer s 25 mg 0-05 ity of capsule 00:00: [facility] lamoTRIgine 2019-07 Yes Univer s 25 mg 0-05 ity of tablet 00:00: [facility] losartan 25 2019- Yes Univer s mg tablet 0-05 ity of 00:00: [facility] hydrOXYzine 2019-07 Yes Univer s 25 mg 0-05 ity of capsule 00:00: [facility] lamoTRIgine 2019-07 Yes Univer s 25 mg 0-05 ity of tablet 00:00: [facility] losartan 25 2019- Yes Univer s mg tablet 0-05 ity of 00:00: [facility] hydrOXYzine 2019-07 Yes Univer s 25 mg 0-05 ity of capsule 00:00: [facility] lamoTRIgine 2019-07 Yes Univer s 25 mg 0-05 ity of tablet 00:00: [place] [facility] losartan 25 2019- Yes Univer s mg tablet 0-05 ity of 00:00: [facility] hydrOXYzine 2019-07 Yes Univer s 25 mg 0-05 ity of capsule 00:00: [facility] lamoTRIgine 2019-07 Yes Univer s 25 mg 0-05 ity of tablet 00:00: [facility] losartan 25 2019- Yes Univer s mg tablet 0-05 ity of 00:00: [facility] hydrOXYzine 2019-07 Yes Univer s 25 mg 0-05 ity of capsule 00:00: [facility] lamoTRIgine 2019-07 Yes Univer s 25 mg 0-05 ity of tablet 00:00: [facility] [place] [facility] losartan 25 2019-07 Yes Univer s mg tablet 0-05 ity of 00:00: [place] [facility] hydrOXYzine 2019-07 Yes Univer s 25 mg 0-05 ity of capsule 00:00: [facility] lamoTRIgine 2019-07 Yes Univer s 25 mg 0-05 ity of tablet 00:00: [place] [facility] losartan 25 2019-07 Yes Univer s mg tablet 0-05 ity of 00:00: [place] [facility] losartan 2019- Yes [facility] (COZAAR) 25 0-05 College MG tablet 00:00: of 00 Medicin e losartan 2019-07 Yes [facility] (COZAAR) 25 0-05 College MG tablet 00:00: of 00 Medicin e losartan 2019-2020- No [facility] (COZAAR) 25 0-05 01-08 College MG tablet 00:00: 00:00 of 00 :00 Medicin e triamterene 2019- Yes TK 1 C PO U nivers -hydrochlor 0-01 D ity of othiazide 00:00: [place] 37.5-25 mg 00 Medical per capsule Branch triamterene 2020 Yes TK 1 C PO U nivers -hydrochlor 0-01 D ity of othiazide 00:00: [place] 37.5-25 mg 00 Medical per capsule Branch triamterene 2020 Yes TK 1 C PO U nivers -hydrochlor 0-01 D ity of othiazide 00:00: [place] 37.5-25 mg 00 Medical per capsule Branch triamterene 2019-07 Yes TK 1 C PO U nivers -hydrochlor 0-01 D ity of othiazide 00:00: [place] 37.5-25 mg 00 Medical per capsule Branch triamterene 2019-07 Yes TK 1 C PO U nivers -hydrochlor 0-01 D ity of othiazide 00:00: [place] 37.5-25 mg 00 Medical per capsule Branch triamterene 2019-07 Yes TK 1 C PO U nivers -hydrochlor 0-01 D ity of othiazide 00:00: [place] 37.5-25 mg 00 Medical per capsule Branch losartan 0 2020- No DAILY [facility] (COZAAR) 25 9-11 11-19 College MG tablet 00:00: 00:00 of 00 :00 Medicin e risperdone Yes 1{tbl} Take 1 Tab [facility] (RISPERDAL) 9-07 by mouth [facility] 0.25 MG 00:00: two times of tablet 00 daily. Medicin e risperdone Yes 1{tbl} Take 1 Tab [facility] (RISPERDAL) 9-07 by mouth [facility] 0.25 MG 00:00: two times of tablet 00 daily. Medicin e risperdone 2020- No 1{tbl} Take 1 Tab [facility] (RISPERDAL) 9-07 01-08 by mouth Col lege 0.25 MG 00:00: 00:00 two times of tablet 00 :00 daily. Medicin e triamterene Yes 1{capsu Take 1 Cap [facility] -hydrochlor 8-11 le} by mouth [facility] othiazide 16:27: every of (DYAZIDE) 09 morning. Medici n 37.5-25 MG e per capsule potassium 2019- Yes 10meq Take 10 [facility] chloride 8-11 mEq by [place] (MICRO-K) 16:27: mouth of 10 MEQ 09 daily. Medicin capsule e levothyroxi 2019- Yes 125ug Take 125 B [facility] ne 8-11 mcg by [place] (SYNTHROID) 16:27: mouth of 125 MCG 09 daily. Medicin tablet e gabapentin Yes 500mg Take 500 [facility] (NEURONTIN) 8-11 mg by [place] 300 MG 16:27: mouth of capsule 09 daily. Medicin e lamoTRIgine 2020-0 Yes 50mg Take 50 mg [facility] 50 MG TBDP 02-27 by mouth Colle ge 16:27: two times of 09 daily. Medicin e baclofen 2020-0 Yes 10mg Take [address] [place] [facility] (LIORESAL) 02-27 by mouth Colle ge 10 MG 16:27: two times of tablet 09 daily. Medicin e Multiple 2020-0 Yes Take by [facility] Vitamins-Mi 02-27 mouth [place] nerals 16:27: daily. of (MULTIVITAM 09 Medicin IN ADULT e OR) B Complex 2020-0 Yes Take by [facility] or Vitamins (B 02-27 mouth [place] COMPLEX 1 16:27: daily. of OR) 09 Medicin e Calcium 2020-0 Yes Take by [facility] Citrate-Vit 02-27 mouth two Col lege solomon D 16:27: times of (CALCIUM 09 daily. Medicin CITRATE + D e OR) [place]-3 2020-0 Yes Take by [facility] Fatty Acids 02-27 mouth [place] (FISH OIL) 16:27: daily. of 1200 MG 09 Medicin CAPS e Lactobacill 2020-0 Yes Take by ylor us 02-27 mouth [place] (PROBIOTIC 16:27: daily. of ACIDOPHILUS 09 Medicin OR) e Calcium 2020-0 Yes Take by [facility] Polycarboph 02-27 mouth 3 Colle ge il 16:27: times of (FIBER-CAPS 09 daily. Medici n OR) e BIOTIN 5000 2020-0 Yes Take by [facility] OR 02-27 mouth [place] 16:27: daily. of 09 Medicin e L-THEANINE 2020-0 Yes 200mg Take 200 [facility] OR 02-27 mg by [place] 16:27: mouth of 09 daily. Medicin e Turmeric 2020-0 Yes Take by [facility] r Curcumin 02-27 mouth. [place] 500 MG CAPS 16:27: of 09 Medicin e Magnesium 2020-0 Yes Take by [facility] or 400 MG TABS 02-27 mouth. Colleg e 16:27: of 09 Medicin e Lidocaine 2020-0 Yes Apply [facility] 0.5 % GEL 02-27 topically. [facility] 16:27: of 09 Medicin e atorvastati 2020-0 Yes 20mg Take 20 mg [facility] n (LIPITOR) 02-27 by mouth [facility] 20 MG 16:25: daily. of tablet 47 Medicin e Ascorbic 2020-[address] Acid 02-27 [facility] (VITAMIN C) 16:25: daily. of 500 MG CAPS 47 Medicin e acetaminoph 2020-0 Yes 1{tbl} Take 1 Tab [facility] en-codeine 02-27 by mouth [facility] (TYLENOL 16:25: every 8 of #3) 300-30 47 hours. Medicin MG per e tablet levofloxaci 2019-0 2020- No [id number] 500mg Take 1 Tab [facility] n 02-19 by [facility] (LEVAQUIN) 00:00: 04:59 daily for o f 500 MG 00 :00 3 days. 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 levofloxaci 2020-0 2020- No [id number] 500mg Take 1 Tab [facility] n 02-19 by [facility] (LEVAQUIN) 00:00: 04:59 daily for o f 500 MG 00 :00 3 days. 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 levofloxaci 2020-0 2020- No [id number] 500mg Take 1 Tab [facility] n 02-19 by [facility] (LEVAQUIN) 00:00: 04:59 daily for o f 500 MG 00 :00 3 days. 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 levofloxaci 2020-0 2020- No [id number] 500mg Take 1 Tab [facility] n 02-19 by [facility] (LEVAQUIN) 00:00: 04:59 daily for o f 500 MG 00 :00 3 days. 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 lorazepam 2020-0 Yes TK SS T PO [facility] (ATIVAN) 7-28 TID [facility] College 0.5 MG 00:00: HIGH of tablet 00 ANXIETY Medicin e lorazepam 2020-0 Yes TK SS T PO [facility] (ATIVAN) 7-28 TID PRF [facility] 0.5 MG 00:00: HIGH of tablet 00 ANXIETY Medicin e lorazepam 2019-0 Yes TK SS T PO [facility] (ATIVAN) 02-13 TID PRF [facility] 0.5 MG 00:00: HIGH of tablet 00 ANXIETY Medicin e lorazepam 2020-0 Yes TK SS T PO [facility] (ATIVAN) 02-13 TID PRF [facility] 0.5 MG 00:00: HIGH of tablet 00 ANXIETY Medicin e lorazepam 2020-0 Yes TK SS T PO [facility] (ATIVAN) 02-13 TID PRF [facility] 0.5 MG 00:00: HIGH of tablet 00 ANXIETY Medicin e lorazepam 2020-0 Yes TK SS T PO [facility] (ATIVAN) 02-13 TID PRF [facility] 0.5 MG 00:00: HIGH of tablet 00 ANXIETY Medicin e lorazepam 2020-0 Yes TK SS T PO [facility] (ATIVAN) 02-13 TID PRF [facility] 0.5 MG 00:00: HIGH of tablet 00 ANXIETY Medicin e lorazepam 2020-0 Yes TK SS T PO [facility] (ATIVAN) 02-13 TID PRF [facility] 0.5 MG 00:00: HIGH of tablet 00 ANXIETY Medicin e lorazepam 2020-0 Yes TK SS T PO [facility] (ATIVAN) 02-13 TID PRF [facility] 0.5 MG 00:00: HIGH of tablet 00 ANXIETY Medicin e lorazepam 2020-0 Yes TK SS T PO [facility] (ATIVAN) 02-13 TID PRF [facility] 0.5 MG 00:00: HIGH of tablet 00 ANXIETY Medicin e lorazepam 2020-0 Yes TK SS T PO [facility] (ATIVAN) 02-13 TID PRF [facility] 0.5 MG 00:00: HIGH of tablet 00 ANXIETY Medicin e lorazepam 2020-0 Yes TK SS T PO [facility] (ATIVAN) 02-13 TID PRF [facility] 0.5 MG 00:00: HIGH of tablet 00 ANXIETY Medicin e lorazepam 2020-0 2020- No TK SS T PO [facility] (ATIVAN) 02-13 TID PRF College 0.5 MG 00:00: 00:00 HIGH of tablet 00 :00 ANXIETY Medicin e lorazepam 2020-0 2020- No TK SS T PO [facility] (ATIVAN) 02-13 TID PRF College 0.5 MG 00:00: 00:00 HIGH of tablet 00 :00 ANXIETY Medicin e levothyroxi 2020-0 Yes TK 1 T PO B [facility] ne 7-14 D College (SYNTHROID) 00:00: of 112 MCG 00 Medicin tablet e levothyroxi 2020-0 Yes TK 1 T PO B [facility] ne 7-14 D College (SYNTHROID) 00:00: of 112 MCG 00 Medicin tablet e levothyroxi 2020-0 Yes TK 1 T PO B [facility] ne 7-14 D College (SYNTHROID) 00:00: of 112 MCG 00 Medicin tablet e levothyroxi 2020-0 Yes TK 1 T PO B [facility] ne 7-14 D College (SYNTHROID) 00:00: of 112 MCG 00 Medicin tablet e levothyroxi 2020-0 2021- No TK 1 T PO [facility] ne 7-14 01-08 D College (SYNTHROID) 00:00: 00:00 of 112 MCG 00 :00 Medicin tablet e mirtazapine 2020-0 Yes 15mg Take 1 Tab [facility] (REMERON) 01-25 by mouth Colleg e 15 MG 00:00: nightly. of tablet 00 Medicin e mirtazapine 2020-0 Yes 15mg Take 1 Tab [facility] (REMERON) 01-25 by mouth Colleg e 15 MG 00:00: nightly. of tablet 00 Medicin e mirtazapine 2020-0 2020- No 15mg Take 1 Tab [facility] (REMERON) 01-25- by mouth Colle ge 15 MG 00:00: 00:00 nightly. of tablet 00 :00 Medicin e triamcinolo 2020-0 2020- No [id number] [facility] ne 01-16 College acetonide 14:15: 14:02 of (KENALOG-40 00 :00 Medicin ) 40 mg/mL e 40 mg, bupivacaine (PF) (MARCAINE) 0.5 % 1 mL iohexol 2020-0 2020- No [id number] 1mL [facility] (OMNIPAQUE) 01-16 College 300 MG/ML 14:15: 14:02 of injection 1 00 :00 Medicin mL e iohexol 2020-0 2020- No [id number] 1mL 1 mL, [facility] (OMNIPAQUE) 01-16 Epidural, Co llege 300 MG/ML 14:15: 14:02 ONCE, 1 of injection 1 00 :00 dose, Tue Med icin mL 6/30/20 at e 0915 triamcinolo 2020-0 2020- No [id number] Epidural, [facility] ne 6-30 06-30 ONCE, 1 [place] acetonide 14:15: 14:02 dose, Tue of (KENALOG-40 00 :00 01/17/20 at [place] dicin ) 40 mg/mL 0915 e 40 mg, bupivacaine (PF) (MARCAINE) 0.5 % 1 mL triamterene 2020-0 Yes 1{capsu Take 1 Cap [facility] -hydrochlor 6-23 le} by mouth [facility] othiazide 13:49: every of (DYAZIDE) 30 morning. Medici n 37.5-25 MG e per capsule potassium 2020-0 Yes 10meq Take 10 [facility] chloride 6-23 mEq by [place] (MICRO-K) 13:49: mouth of 10 MEQ 30 daily. Medicin capsule e levothyroxi 2020-0 Yes 125ug Take 125 B [facility] ne 6-23 mcg by [place] (SYNTHROID) 13:49: mouth of 125 MCG 30 daily. Medicin tablet e gabapentin 2020-0 Yes 500mg Take 500 [facility] (NEURONTIN) 6-23 mg by [place] 300 MG 13:49: mouth of capsule 30 daily. Medicin e atorvastati 2020-0 Yes 20mg Take 20 mg [facility] n (LIPITOR) 6-23 by mouth [facility] 20 MG 13:49: daily. of tablet 30 Medicin e lamoTRIgine 2020-0 Yes 50mg Take 50 mg [facility] 50 MG TBDP 6-23 by mouth Colle ge 13:49: two times of 30 daily. Medicin e baclofen 2020-0 Yes 10mg Take [address] [place] [facility] (LIORESAL) 6-23 by mouth Colle ge 10 MG 13:49: two times of tablet 30 daily. Medicin e Multiple 2020-[address] Vit[facility]-Mi 6-23 mouth [place] nerals 13:49: daily. of (MULTIVITAM 30 Medicin IN ADULT e OR) B Complex 2020-0 Yes Take by [facility] Vitamins (B 6-23 mouth [place] COMPLEX 1 13:49: daily. of OR) 30 Medicin e Calcium 2020-0 Yes Take by [facility] Citrate-Vit 6-23 mouth two Col lege solomon D 13:49: times of (CALCIUM 30 daily. Medicin CITRATE + D e OR) [place]-3 2020-0 Yes Take by [facility] Fatty Acids 01-09 mouth [place] (FISH OIL) 13:49: daily. of 1200 MG 30 Medicin CAPS e Lactobacill 2020-0 Yes Take by [facility] us 01-09 mouth [place] (PROBIOTIC 13:49: daily. of ACIDOPHILUS 30 Medicin OR) e Calcium 2020-0 Yes Take by [facility] Polycarboph 01-09 mouth Colle ge il 13:49: times of (FIBER-CAPS 30 daily. Medici n OR) e BIOTIN 5000 2020-0 Yes Take by ylor OR - mouth [place] 13:49: daily. of 30 Medicin e L-THEANINE 2020-0 Yes 200mg Take 200 [facility] OR - mg by [place] 13:49: mouth of 30 daily. Medicin e Ascorbic 2020-0 Yes Take by [facility] r Acid - [facility] (VITAMIN C) 13:49: daily. of 500 MG CAPS 30 Medicin e Turmeric 2020-0 Yes Take by [facility] Curcumin 01-09 mouth. [place] 500 MG CAPS 13:49: of 30 Medicin e acetaminoph 2020-0 Yes 1{tbl} Take 1 Tab [facility] en-codeine 6-23 by mouth [facility]le [facility] (TYLENOL 13:49: every 8 of #3) 300-30 30 hours. Medicin MG per e tablet Magnesium 2020-0 Yes Take by [facility] 400 MG TABS - mouth. Colleg e 13:49: of 30 Medicin e Lidocaine 2020-0 Yes Apply [facility] 0.5 % GEL 6- topically. [facility] 13:49: of 30 Medicin e triamterene 2020-0 Yes 1{capsu Take 1 Cap [facility] -hydrochlor 6-23 le} by mouth [facility] othiazide 13:49: every of (DYAZIDE) 30 morning. Medici n 37.5-25 MG e per capsule potassium 2020-0 Yes 10meq Take 10 [facility] chloride 6-23 mEq by [place] (MICRO-K) 13:49: mouth of 10 MEQ 30 daily. Medicin capsule e levothyroxi 2020-0 Yes 125ug Take 125 B [facility] ne 6-23 mcg by [place] (SYNTHROID) 13:49: mouth of 125 MCG 30 daily. Medicin tablet e gabapentin 2020-0 Yes 500mg Take 500 [facility] (NEURONTIN) 6-23 mg by [place] 300 MG 13:49: mouth of capsule 30 daily. Medicin e atorvastati 2020-0 Yes 20mg Take 20 mg [facility] n (LIPITOR) 6- by mouth [facility] 20 MG 13:49: daily. of tablet 30 Medicin e lamoTRIgine 2020-0 Yes 50mg Take 50 mg [facility] 50 MG TBDP 6- by mouth Colle ge 13:49: two times of 30 daily. Medicin e baclofen 2020-0 Yes 10mg Take [address] [place] [facility] (LIORESAL) - by mouth Colle ge 10 MG 13:49: two times of tablet 30 daily. Medicin e Multiple 2020-0 Yes Take by [facility] Vitamins-Mi 01-09 mouth [place] nerals 13:49: daily. of (MULTIVITAM 30 Medicin IN ADULT e OR) B Complex 2020-0 Yes Take by [facility] or Vitamins (B 01-09 mouth [place] COMPLEX 1 13:49: daily. of OR) 30 Medicin e Calcium 2020-0 Yes Take by [facility] Citrate-Vit 01-[address] [facility] Col lege solomon D 13:49: times of (CALCIUM 30 daily. Medicin CITRATE + D e OR) [place]-3 2020-0 Yes Take by [facility] Fatty Acids 01-09 mouth [place] (FISH OIL) 13:49: daily. of 1200 MG 30 Medicin CAPS e Lactobacill 2020-0 Yes Take by [facility] 01-09 mouth [place] (PROBIOTIC 13:49: daily. of ACIDOPHILUS 30 Medicin OR) e Calcium 2020-0 Yes Take by [facility] Polycarboph 01-09 mouth 3 Colle ge il 13:49: times of (FIBER-CAPS 30 daily. Medici n OR) e BIOTIN 5000 2020-0 Yes Take by ylor OR - mouth [place] 13:49: daily. of 30 Medicin e L-THEANINE 2020-0 Yes 200mg Take 200 Ba ylor OR 6-23 mg by College 13:49: mouth of 30 daily. Medicin e Ascorbic 2020-0 Yes Take by [facility] Acid - mouth [place] (VITAMIN C) 13:49: daily. of 500 MG CAPS 30 Medicin e Turmeric 2020-0 Yes Take by [facility] Curcumin - mouth. College 500 MG CAPS 13:49: of 30 Medicin e acetaminoph 2020-0 Yes 1{tbl} Take 1 Tab [facility] en-codeine 6-23 by mouth [facility]le [facility] (TYLENOL 13:49: every 8 of #3) 300-30 30 hours. Medicin MG per e tablet Magnesium 2020-0 Yes Take by [facility] 400 MG TABS 6-23 mouth. Colleg e 13:49: of 30 Medicin e Lidocaine 2020-0 Yes Apply [facility] 0.5 % GEL 6-23 topically. Shanel ege 13:49: of 30 Medicin e triamterene 2020-0 Yes 1{capsu Take 1 Cap [facility] -hydrochlor 6-19 le} by mouth Shanel ege othiazide 18:04: every of (DYAZIDE) 39 morning. Medici n 37.5-25 MG e per capsule potassium 2020-0 Yes 10meq Take 10 [facility] chloride 6-19 mEq by [place] (MICRO-K) 18:04: mouth of 10 MEQ 39 daily. Medicin capsule e levothyroxi 2020-0 Yes 125ug Take 125 B aylor ne 6-19 mcg by [place] (SYNTHROID) 18:04: mouth of 125 MCG 39 daily. Medicin tablet e gabapentin 2020-0 Yes 500mg Take 500 Ba ylor (NEURONTIN) 6-19 mg by [place] 300 MG 18:04: mouth of capsule 39 daily. Medicin e atorvastati 2020-0 Yes 20mg Take 20 mg [facility] n (LIPITOR) 6-19 by mouth Shanel ege 20 MG 18:04: daily. of tablet 39 Medicin e lamoTRIgine 2020-0 Yes 50mg Take 50 mg [facility] 50 MG TBDP 6-19 by mouth [facility] 18:04: two times of 39 daily. Medicin e baclofen 2020-0 Yes 10mg Take [address] [place] [facility] (LIORESAL) 6-19 by mouth [facility] 10 MG 18:04: two times of tablet 39 daily. Medicin e Multiple 2020-[address] [place] Vit[facility]-Mi 6-19 mouth [place] nerals 18:04: daily. of (MULTIVITAM 39 Medicin IN ADULT e OR) B Complex 2020-0 Yes Take by [facility] Vitamins (B 6-19 mouth [place] COMPLEX 1 18:04: daily. of OR) 39 Medicin e Calcium 2020-0 Yes Take by [facility] Citrate-Vit 6- mouth two [facility] lege solomon D 18:04: times of (CALCIUM 39 daily. Medicin CITRATE + D e OR) [place]-3 2020-0 Yes Take by [facility] Fatty Acids - [facility] (FISH OIL) 18:04: daily. of 1200 MG 39 Medicin CAPS e Lactobacill 2020-0 Yes Take by saharaor us - mouth [place] (PROBIOTIC 18:04: daily. of ACIDOPHILUS 39 Medicin OR) e Calcium 2020-0 Yes Take by [facility] Polycarboph - mouth 3 Colle ge il 18:04: times of (FIBER-CAPS 39 daily. Medici n OR) e BIOTIN 5000 2020-0 [facility] [place] 18:04: daily. of 39 Medicin e L-THEANINE 2020-0 Yes 200mg Take 200 Ba [facility] OR - mg by [place] 18:04: mouth of 39 daily. Medicin e Ascorbic 2020-0 Yes Take by [facility] r Acid 01-05 [facility] (VITAMIN C) 18:04: daily. of 500 MG CAPS 39 Medicin e Turmeric 2020-0 Yes Take by [facility] Curcumin - mouth. [place] 500 MG CAPS 18:04: of 39 Medicin e acetaminoph 2020-0 Yes 1{tbl} Take 1 Tab [facility] en-codeine -19 by mouth [facility] (TYLENOL 18:04: every 8 of #3) 300-30 39 hours. Medicin MG per e tablet Magnesium 2020-[address] 400 MG TABS - mouth. [facility] 18:04: of 39 Medicin e Lidocaine 2020-0 Yes Apply [facility] 0.5 % GEL - topically. [facility]el ege 18:04: of 39 Medicin e triamterene 2020-0 Yes 1{capsu Take 1 Cap [facility] -hydrochlor 6-19 le} by mouth Shanel ege othiazide 18:04: every of (DYAZIDE) 39 morning. Medici n 37.5-25 MG e per capsule potassium 2020-0 Yes 10meq Take 10 [facility] chloride 6-19 mEq by [place] (MICRO-K) 18:04: mouth of 10 MEQ 39 daily. Medicin capsule e levothyroxi 2020-0 Yes 125ug Take 125 B aylor ne 6-19 mcg by [place] (SYNTHROID) 18:04: mouth of 125 MCG 39 daily. Medicin tablet e gabapentin 2020-0 Yes 500mg Take 500 Ba [facility] (NEURONTIN) 6-19 mg by [place] 300 MG 18:04: mouth of capsule 39 daily. Medicin e atorvastati 2020-0 Yes 20mg Take 20 mg [facility] n (LIPITOR) - by mouth Shanel ege 20 MG 18:04: daily. of tablet 39 Medicin e lamoTRIgine 2020-0 Yes 50mg Take 50 mg [facility] 50 MG TBDP - by mouth [facility]le [facility] 18:04: two times of 39 daily. Medicin e baclofen 2020-0 Yes 10mg Take [address] [place] [facility] (LIORESAL) - by mouth [facility]le ge 10 MG 18:04: two times of tablet 39 daily. Medicin e Multiple 2020-0 Yes Take by [facility] Vitamins-Mi 01-05 mouth [place] nerals 18:04: daily. of (MULTIVITAM 39 Medicin IN ADULT e OR) B Complex 2020-0 Yes Take by [facility] or Vitamins (B 01-05 mouth [place] COMPLEX 1 18:04: daily. of OR) 39 Medicin e Calcium 2020-0 Yes Take by [facility] Citrate-Vit 01-05 mouth two [facility] solomon D 18:04: times of (CALCIUM 39 daily. Medicin CITRATE + D e OR) [place]-3 2020-0 Yes Take by [facility] Fatty Acids 01-05 [facility] (FISH OIL) 18:04: daily. of 1200 MG 39 Medicin CAPS e Lactobacill 2020-0 Yes Take by fausto us 01-05 mouth [place] (PROBIOTIC 18:04: daily. of ACIDOPHILUS 39 Medicin OR) e Calcium 2020-0 Yes Take by [facility] Polycarboph 01-05 mouth 3 Colle ge il 18:04: times of (FIBER-CAPS 39 daily. Medici n OR) e BIOTIN 5000 2020-0 [facility] 18:04: daily. of 39 Medicin e L-THEANINE 2020-0 Yes 200mg Take 200 Ba ylor OR 6-19 mg by [facility] 18:04: mouth of 39 daily. Medicin e Ascorbic 2020-0 Yes Take by [facility] Acid 01-05 [facility] (VITAMIN C) 18:04: daily. of 500 MG CAPS 39 Medicin e Turmeric 2020-0 Yes Take by [facility] Curcumin 6-19 mouth. [facility] 500 MG CAPS 18:04: of 39 Medicin e acetaminoph 2020-0 Yes 1{tbl} Take 1 Tab [facility] en-codeine - by mouth Lisa ge (TYLENOL 18:04: every 8 of #3) 300-30 39 hours. Medicin MG per e tablet Magnesium 2020-0 Yes Take by [facility] 400 MG TABS 6-19 mouth. [place] 18:04: of 39 Medicin e Lidocaine 2020-0 Yes Apply [facility] 0.5 % GEL - topically. [facility]el ege 18:04: of 39 Medicin e fluoxetine 2020-0 2020- No 10mg Take 10 mg [facility] (PROZAC) 10 -17 -17 by mouth Col lege MG tablet 16:48: 00:00 daily. of 05 :00 Medicin e hydrOXYzine 2020-0 2020- No 25mg Take 25 mg [facility] (ATARAX) 25 -17 -17 by mouth [facility]ge MG tablet 16:38: 00:00 two times of 31 :00 daily. Medicin e hydrOXYzine 2020-0 Yes 50mg Take 1 Tab [facility] (ATARAX) 50 6-17 by mouth 3 [employer] MG tablet 00:00: times of 00 daily as Medicin needed for e Anxiety. Desvenlafax 2020-0 Yes 25mg Take 25 mg [facility] ine 6-17 by mouth [employer] Succ[facility] 00:00: daily. of ER 25 MG 00 Medicin TB24 e hydrOXYzine 2020-0 Yes 50mg Take 1 Tab [facility] (ATARAX) 50 6-17 by mouth 3 Co [employer] MG tablet 00:00: times of 00 daily as Medicin needed for e Anxiety. Desvenlafax 2020-0 Yes 25mg Take 25 mg [facility] ine 6-17 by mouth [employer] Succinate 00:00: daily. of ER 25 MG 00 Medicin TB24 e hydrOXYzine 2020-0 Yes 50mg Take 1 Tab [facility] (ATARAX) 50 6-17 by mouth 3 [employer] MG tablet 00:00: times of 00 daily as Medicin needed for e Anxiety. Desvenlafax 2020-0 Yes 25mg Take 25 mg [facility] ine 6-17 by mouth [employer] [facility] 00:00: daily. of ER 25 MG 00 Medicin TB24 e hydrOXYzine 2020-0 Yes 50mg Take 1 Tab [facility] (ATARAX) 50 6-17 by mouth 3 [employer] MG tablet 00:00: times of 00 daily as Medicin needed for e Anxiety. Desvenlafax 2020-0 Yes 25mg Take 25 mg [facility] ine 6-17 by mouth [employer] [facility] 00:00: daily. of ER 25 MG 00 Medicin TB24 e hydrOXYzine 2020-0 Yes 50mg Take 1 Tab [facility] (ATARAX) 50 6-17 by mouth 3 [employer] MG tablet 00:00: times of 00 daily as Medicin needed for e Anxiety. hydrOXYzine 2020-0 Yes 50mg Take 1 Tab [facility] (ATARAX) 50 6-17 by mouth 3 [employer] MG tablet 00:00: times of 00 daily as Medicin needed for e Anxiety. hydrOXYzine 2020-0 2020- No 50mg Take 1 Tab [facility] (ATARAX) 50 6-17 10-27 by mouth 3 C [facility] MG tablet 00:00: 00:00 times of 00 :00 daily as Medicin needed for e Anxiety. Lexiscan IV 2020-0 2020- No [id number] .4mg B aylor Shanell) 0.4 12-18 [place] MG/5ML 16:00: 15:00 of injection 00 :00 Medicin 0.4 mg e Technetium 2020-0 2020- No [id number] 5mCi Ba ylor Tc 99m 12-18 [place] Tetrofosmin 16:00: 15:00 of (MYOVIEW) 00 :00 Medicin injection e 5-30 millicurie Technetium 2020-0 2020- No [id number] 5mCi Ba ylor Tc 99m 12-18 [place] Tetrofosmin 16:00: 14:00 of (MYOVIEW) 00 :00 Medicin injection e 5-30 millicurie triamterene 2020-0 Yes 1{capsu Take 1 Cap [facility] -hydrochlor 5-26 le} by mouth Shanel ege othiazide 15:32: every of (DYAZIDE) 13 morning. Medici n 37.5-25 MG e per capsule potassium 2020-0 Yes 10meq Take 10 [facility] chloride 5-26 mEq by [place] (MICRO-K) 15:32: mouth of 10 MEQ 13 daily. Medicin capsule e levothyroxi 2020-0 Yes 125ug Take 125 B aylor ne 5-26 mcg by [place] (SYNTHROID) 15:32: mouth of 125 MCG 13 daily. Medicin tablet e gabapentin 2020-0 Yes 300mg Take 300 Ba [facility] (NEURONTIN) - mg by [place] 300 MG 15:32: mouth of capsule 13 daily. Medicin e atorvastati 2020-0 Yes 20mg Take 20 mg [facility] n (LIPITOR) 12-12 by mouth Shanel ege 20 MG 15:32: daily. of tablet 13 Medicin e lamoTRIgine 2020-0 Yes 50mg Take 50 mg [facility] 50 MG TBDP 12-12 by mouth [facility]le [facility] 15:32: two times of 13 daily. Medicin e hydrOXYzine 2020-0 Yes 25mg Take 25 mg [facility] (ATARAX) 25 12-12 by mouth Shanel ege MG tablet 15:32: two times of 13 daily. Medicin e baclofen 2020-0 Yes 10mg Take [address] [place] [facility] (LIORESAL) 12-12 by mouth Colle [facility] 10 MG 15:32: two times of tablet 13 daily. Medicin e Multiple 2020-0 Yes Take by [facility] r Vitamins-Mi 12-12 mouth [place] nerals 15:32: daily. of (MULTIVITAM 13 Medicin IN ADULT e OR) B Complex 2020-0 Yes Take by [facility] or Vitamins (B 12-12 mouth [place] COMPLEX 1 15:32: daily. of OR) 13 Medicin e Calcium 2020-0 Yes Take by [facility] Citrate-Vit 12-12 mouth two [facility]ge solomon D 15:32: times of (CALCIUM 13 daily. Medicin CITRATE + D e OR) [place]-3 2020-0 Yes Take by [facility] Fatty Acids 12-12 mouth [place] (FISH OIL) 15:32: daily. of 1200 MG 13 Medicin CAPS e Lactobacill 2020-0 Yes Take by fausto us 12-12 mouth [place] (PROBIOTIC 15:32: daily. of ACIDOPHILUS 13 Medicin OR) e Calcium 2020-0 Yes Take by [facility] Polycarboph 12-12 mouth 3 Colle ge il 15:32: times of (FIBER-CAPS 13 daily. Medici n OR) e BIOTIN 5000 2020-0 Yes Take by Ba ylor OR 5-26 mouth [place] 15:32: daily. of 13 Medicin e L-THEANINE 2020-0 Yes 200mg Take 200 Ba ylor OR 5-26 mg by [facility] 15:32: mouth of 13 daily. Medicin e Ascorbic 2020-0 Yes Take by [facility] Acid 5-26 mouth [place] (VITAMIN C) 15:32: daily. of 500 MG CAPS 13 Medicin e Turmeric 2020-0 Yes Take by [facility] Curcumin 5-26 mouth. [place] 500 MG CAPS 15:32: of 13 Medicin e acetaminoph 2020-0 Yes 1{tbl} Take 1 Tab [facility] en-codeine 5-26 by mouth Colle [facility] (TYLENOL 15:32: every 4 of #3) 300-30 13 hours as Medic in MG per needed for e tablet Pain. fluoxetine 2020-0 Yes 10mg Take 10 mg [facility] (PROZAC) 10 5-26 by mouth Shanel ege MG tablet 15:32: daily. of 13 Medicin e triamterene 2020-0 Yes 1{capsu Take 1 Cap [facility] -hydrochlor 5-26 le} by mouth Shanel ege othiazide 15:32: every of (DYAZIDE) 13 morning. Medici n 37.5-25 MG e per capsule potassium 2020-0 Yes 10meq Take 10 [facility] chloride 5-26 mEq by [place] (MICRO-K) 15:32: mouth of 10 MEQ 13 daily. Medicin capsule e levothyroxi 2020-0 Yes 125ug Take 125 B aylor ne 5-26 mcg by [place] (SYNTHROID) 15:32: mouth of 125 MCG 13 daily. Medicin tablet e gabapentin 2020-0 Yes 300mg Take 300 Ba [facility] (NEURONTIN) 5-26 mg by [place] 300 MG 15:32: mouth of capsule 13 daily. Medicin e atorvastati 2020-0 Yes 20mg Take 20 mg [facility] n (LIPITOR) 5-26 by mouth Shanel ege 20 MG 15:32: daily. of tablet 13 Medicin e lamoTRIgine 2020-0 Yes 50mg Take 50 mg [facility] 50 MG TBDP 5-26 by mouth Colle [facility] 15:32: two times of 13 daily. Medicin e hydrOXYzine 2020-0 Yes 25mg Take 25 mg [facility] (ATARAX) 25 5-26 by mouth Shanel ege MG tablet 15:32: two times of 13 daily. Medicin e baclofen 2020-0 Yes 10mg Take [address] [place] [facility] (LIORESAL) 12-12 by mouth Colle ge 10 MG 15:32: two times of tablet 13 daily. Medicin e Multiple 2020-0 Yes Take by [facility] Vitamins-Mi 12-12 mouth [place] nerals 15:32: daily. of (MULTIVITAM 13 Medicin IN ADULT e OR) B Complex 2020-0 Yes Take by [facility] or Vitamins (B 12-12 mouth [place] COMPLEX 1 15:32: daily. of OR) 13 Medicin e Calcium 2020-0 Yes Take by [facility] Citrate-Vit 12-12 mouth two Col lege solomon D 15:32: times of (CALCIUM 13 daily. Medicin CITRATE + D e OR) [place]-3 2020-0 Yes Take by [facility] Fatty Acids 12-12 [facility] (FISH OIL) 15:32: daily. of 1200 MG 13 Medicin CAPS e Lactobacill 2020-0 Yes Take by fausto us 12-12 mouth [place] (PROBIOTIC 15:32: daily. of ACIDOPHILUS 13 Medicin OR) e Calcium 2020-0 Yes Take by [facility] Polycarboph 12-12 mouth 3 Colle ge il 15:32: times of (FIBER-CAPS 13 daily. Medici n OR) e BIOTIN 5000 2020-0 Yes Take by [facility] OR 12-12 mouth [place] 15:32: daily. of 13 Medicin e L-THEANINE 2020-0 Yes 200mg Take 200 Ba or OR 12-12 mg by [facility] 15:32: mouth of 13 daily. Medicin e Ascorbic 2020-0 Yes Take by [facility] Acid 12-12 [facility] (VITAMIN C) 15:32: daily. of 500 MG CAPS 13 Medicin e Turmeric 2020-0 Yes Take by [facility] Curcumin 12-12 mouth. [place] 500 MG CAPS 15:32: of 13 Medicin e acetaminoph 2020-0 Yes 1{tbl} Take 1 Tab [facility] en-codeine 12-12 by mouth Colle ge (TYLENOL 15:32: every 4 of #3) 300-30 13 hours as Medic in MG per needed for e tablet Pain. fluoxetine 2020-0 Yes 10mg Take 10 mg [facility] (PROZAC) 10 12-12 by mouth Shanel ege MG tablet 15:32: daily. of 13 Medicin e triamterene 2020-0 Yes 1{capsu Take 1 Cap [facility] -hydrochlor 5-19 le} by mouth Shanel ege othiazide 14:28: every of (DYAZIDE) 36 morning. Medici n 37.5-25 MG e per capsule potassium 2020-0 Yes 10meq Take 10 [facility] chloride 5-19 mEq by [place] (MICRO-K) 14:28: mouth of 10 MEQ 36 daily. Medicin capsule e levothyroxi 2020-0 Yes 125ug Take 125 B aylor ne 5-19 mcg by [place] (SYNTHROID) 14:28: mouth of 125 MCG 36 daily. Medicin tablet e gabapentin 2020-0 Yes 300mg Take 300 Ba [facility] (NEURONTIN) 5-19 mg by [facility] 300 MG 14:28: mouth of capsule 36 daily. Medicin e atorvastati 2020-0 Yes 20mg Take 20 mg [facility] n (LIPITOR) 5-19 by mouth Shanel ege 20 MG 14:28: daily. of tablet 36 Medicin e lamoTRIgine 2020-0 Yes 50mg Take 50 mg [facility] 50 MG TBDP 5-19 by mouth Colle ge 14:28: two times of 36 daily. Medicin e hydrOXYzine 2020-0 Yes 25mg Take 25 mg [facility] (ATARAX) 25 5-19 by mouth Shanel ege MG tablet 14:28: two times of 36 daily. Medicin e baclofen 2020-0 Yes 10mg Take [address] [place] [facility] (LIORESAL) 5-19 by mouth Colle ge 10 MG 14:28: two times of tablet 36 daily. Medicin e Multiple 2020-[address] [facility] Vitamins-Mi - mouth [place] nerals 14:28: daily. of (MULTIVITAM 36 Medicin IN ADULT e OR) B Complex 2020-0 Yes Take by [facility] or Vitamins (B 5- mouth [place] COMPLEX 1 14:28: daily. of OR) 36 Medicin e Calcium 2020-0 Yes Take by [facility] Citrate-Vit - mouth two Col [facility]ge solomon D 14:28: times of (CALCIUM 36 daily. Medicin CITRATE + D e OR) [place]-3 2020-0 Yes Take by [facility] Fatty Acids - [facility] (FISH OIL) 14:28: daily. of 1200 MG 36 Medicin CAPS e Lactobacill 2020-0 Yes Take by Zachariah lambert us - mouth [facility] (PROBIOTIC 14:28: daily. of ACIDOPHILUS 36 Medicin OR) e Calcium 2020-0 Yes Take by [facility] Polycarboph 5-19 mouth 3 Colle ge il 14:28: times of (FIBER-CAPS 36 daily. Medici n OR) e BIOTIN 5000 2020-0 Yes Take by ylor OR 5-19 mouth [facility] 14:28: daily. of 36 Medicin e L-THEANINE 2020-0 Yes 200mg Take 200 [facility] OR 5-19 mg by [facility] 14:28: mouth of 36 daily. Medicin e Ascorbic 2020-0 Yes Take by [facility] Acid -19 mouth [place] (VITAMIN C) 14:28: daily. of 500 MG CAPS 36 Medicin e Turmeric 2020-0 Yes Take by [facility] Curcumin - mouth. [place] 500 MG CAPS 14:28: of 36 Medicin e acetaminoph 2020-0 Yes 1{tbl} Take 1 Tab [facility] en-codeine 5-19 by mouth Colle (TYLENOL 14:28: every 4 of #3) 300-30 36 hours as Medic in MG per needed for e tablet Pain. fluoxetine 2020-0 Yes 10mg Take 10 mg [facility] (PROZAC) 10 5-19 by mouth Shanel ege MG tablet 14:28: daily. of 36 Medicin e hydrocodone 2020-0 2020- No 1{tbl} Take 1 Tab [facility] -acetaminop 5-19 05-19 by mouth 2 C [facility] hen (NORCO) 14:27: 00:00 times of 7.5-325 MG 10 :00 daily as Medic in per tablet needed for e Pain. hydrocodone 2020-0 Yes 1{tbl} Take 1 Tab [facility] -acetaminop 5-05 by mouth 2 [employer] [facility]lege hen (NORCO) 14:46: times of 7.5-325 MG 24 daily as Medic in per tablet needed for e Pain. Turmeric 2020-[address] [facility] Curcumin 5-05 mouth. [place] 500 MG CAPS 14:46: of 19 Medicin e triamterene 2020-0 Yes 1{capsu Take 1 Cap [facility] -hydrochlor 5-05 le} by mouth Shanel ege othiazide 14:46: every of (DYAZIDE) 18 morning. Medici n 37.5-25 MG e per capsule potassium 2020-0 Yes 10meq Take 10 [facility] chloride 5-05 mEq by [facility] (MICRO-K) 14:46: mouth of 10 MEQ 18 daily. Medicin capsule e levothyroxi 2020-0 Yes 125ug Take 125 B [facility] ne 5-05 mcg by [place] (SYNTHROID) 14:46: mouth of 125 MCG 18 daily. Medicin tablet e gabapentin 2020-0 Yes 300mg Take 300 [facility] (NEURONTIN) 5-05 mg by [facility] 300 MG 14:46: mouth of capsule 18 daily. Medicin e atorvastati 2020-0 Yes 20mg Take 20 mg [facility] n (LIPITOR) 5-05 by mouth Shanel ege 20 MG 14:46: daily. of tablet 18 Medicin e lamoTRIgine 2020-0 Yes 50mg Take 50 mg [facility] 50 MG TBDP 5-05 by mouth Colle ge 14:46: two times of 18 daily. Medicin e hydrOXYzine 2020-0 Yes 25mg Take 25 mg [facility] (ATARAX) 25 5-05 by mouth Shanel ege MG tablet 14:46: two times of 18 daily. Medicin e baclofen 2020-0 Yes 10mg Take [address] [place] [facility] (LIORESAL) 5-05 by mouth Colle ge 10 MG 14:46: two times of tablet 18 daily. Medicin e Multiple 2020-0 Yes Take by [facility] r Vitamins-Mi 5-05 mouth [place] nerals 14:46: daily. of (MULTIVITAM 18 Medicin IN ADULT e OR) B Complex 2020-[address] [facility] Vitamins (B 5-05 mouth [place] COMPLEX 1 14:46: daily. of OR) 18 Medicin e Calcium 2020-0 Yes Take by [facility] Citrate-Vit 5-05 mouth two [facility] solomon D 14:46: times of (CALCIUM 18 daily. Medicin CITRATE + D e OR) [place]-3 2020-0 Yes Take by [facility] Fatty Acids 5-05 mouth [place] (FISH OIL) 14:46: daily. of 1200 MG 18 Medicin CAPS e Lactobacill 2020-0 Yes Take by Zachariah lambert us 5-05 mouth [facility] (PROBIOTIC 14:46: daily. of ACIDOPHILUS 18 Medicin OR) e Calcium 2020-0 Yes Take by [facility] Polycarboph 5-05 mouth 3 Colle ge il 14:46: times of (FIBER-CAPS 18 daily. Medici n OR) e BIOTIN 5000 2020-0 Yes Take by [facility] OR 5-05 mouth [facility] 14:46: daily. of 18 Medicin e L-THEANINE 2020-0 Yes 200mg Take 200 Ba [facility] OR 5-05 mg by [facility] 14:46: mouth of 18 daily. Medicin e Ascorbic 2020-[address] [facility] Acid 5-05 mouth [place] (VITAMIN C) 14:46: daily. of 500 MG CAPS 18 Medicin e Spironolact 2020-0 2020- No 25mg Take 25 mg [facility] one-HCTZ 4-21 04-21 by mouth Colleg e 25-25 MG 14:14: 00:00 daily. of TABS 23 :00 Medicin e triamterene 2020-0 Yes 1{capsu Take 1 Cap [facility] -hydrochlor 4-21 le} by mouth Shanel ege othiazide 14:13: every of (DYAZIDE) 06 morning. Medici n 37.5-25 MG e per capsule potassium 2020-0 Yes 10meq Take 10 [facility] chloride 4-21 mEq by [place] (MICRO-K) 14:13: mouth of 10 MEQ 06 daily. Medicin capsule e levothyroxi 2020-0 Yes 125ug Take 125 B a[facility] ne 4-21 mcg by [place] (SYNTHROID) 14:13: mouth of 125 MCG 06 daily. Medicin tablet e gabapentin 2020-0 Yes 300mg Take 300 [facility] (NEURONTIN) 4-21 mg by [place] 300 MG 14:13: mouth of capsule 06 daily. Medicin e atorvastati 2020-0 Yes 20mg Take 20 mg [facility] n (LIPITOR) 4-21 by mouth Shanel ege 20 MG 14:13: daily. of tablet 06 Medicin e lamoTRIgine 2020-0 Yes 50mg Take 50 mg [facility] 50 MG TBDP 4-21 by mouth Colle ge 14:13: two times of 06 daily. Medicin e hydrOXYzine 2020-0 Yes 25mg Take 25 mg [facility] (ATARAX) 25 4-21 by mouth Shanel ege MG tablet 14:13: two times of 06 daily. Medicin e baclofen 2020-0 Yes 10mg Take [address] [facility] [facility] (LIORESAL) 4-21 by mouth Colle ge 10 MG 14:13: two times of tablet 06 daily. Medicin e hydrocodone 2020-0 Yes 1{tbl} Take 1 Tab [facility] -acetaminop 11-07 by mouth 2 [facility] hen (NORCO) 14:13: times of 7.5-325 MG 06 daily as Medic in per tablet needed for e Pain. Multiple 2020-0 Yes Take by [facility] Vitamins-Mi 11-07 [facility] nerals 14:13: daily. of (MULTIVITAM 06 Medicin IN ADULT e OR) B Complex 2020-0 Yes Take by [facility] or Vitamins (B 11-07 [facility] COMPLEX 1 14:13: daily. of OR) 06 Medicin e Calcium 2020-0 Yes Take by [facility] Citrate-Vit 11-07 [facility] two Col lege solomon D 14:13: times of (CALCIUM 06 daily. Medicin CITRATE + D e OR) [place]-3 2020-0 Yes Take by [facility] Fatty Acids 11-07 [facility] (FISH OIL) 14:13: daily. of 1200 MG 06 Medicin CAPS e Lactobacill 2020-0 Yes Take by fausto us 11-07 [facility] (PROBIOTIC 14:13: daily. of ACIDOPHILUS 06 Medicin OR) e Calcium 2020-0 Yes Take by [facility] Polycarboph 11-07 [facility] 3 Colle ge il 14:13: times of (FIBER-CAPS 06 daily. Medici n OR) e BIOTIN 5000 2020-0 Yes Take by [facility] 11-07 [facility] 14:13: daily. of 06 Medicin e L-THEANINE 2020-0 Yes 200mg Take 200 [facility] 11-07 mg by [place] 14:13: mouth of 06 daily. Medicin e Ascorbic 2020-0 Yes Take by [facility] Acid 11-07 [facility] (VITAMIN C) 14:13: daily. of 500 MG CAPS 06 Medicin e Turmeric 2020-0 Yes Take by [facility] Curcumin 11-07 [facility] 500 MG CAPS 14:13: of 06 Medicin e Gabapentin 2020-0 2020- No by [facility] & [facility] 14:13: 00:00 N route of enthol 06 :00 daily. Medicin (SMARTRX e JOEY [place]) triamterene 2020-0 Yes 1{capsu Take 1 Cap [facility] -hydrochlor 4-07 le} by mouth Shanel ege othiazide 17:37: every of (DYAZIDE) 31 morning. Medici n 37.5-25 MG e per capsule Spironolact 2020-0 Yes 25mg Take 25 mg [facility] one-HCTZ 4-07 by mouth [place] 25-25 MG 17:37: daily. of TABS 31 Medicin e potassium 2020-0 Yes 10meq Take 10 Bayl or chloride 4-07 mEq by [place] (MICRO-K) 17:37: mouth of 10 MEQ 31 daily. Medicin capsule e levothyroxi 2020-0 Yes 125ug Take 125 B aylor ne 4-07 mcg by [place] (SYNTHROID) 17:37: mouth of 125 MCG 31 daily. Medicin tablet e gabapentin 2020-0 Yes 300mg Take 300 Ba [facility] (NEURONTIN) 4-07 mg by [place] 300 MG 17:37: mouth of capsule 31 daily. Medicin e atorvastati 2020-0 Yes 20mg Take 20 mg [facility] n (LIPITOR) 4-07 by mouth Shanel ege 20 MG 17:37: daily. of tablet 31 Medicin e lamoTRIgine 2020-0 Yes 50mg Take 50 mg [facility] 50 MG TBDP 4-07 by mouth Colle ge 17:37: two times of 31 daily. Medicin e hydrOXYzine 2020-0 Yes 25mg Take 25 mg [facility] (ATARAX) 25 4-07 by mouth Shanel ege MG tablet 17:37: two times of 31 daily. Medicin e baclofen 2020-0 Yes 10mg Take [address] [place] [facility] (LIORESAL) 4-07 by mouth [facility]le [facility] 10 MG 17:37: two times of tablet 31 daily. Medicin e hydrocodone 2020-0 Yes 1{tbl} Take 1 Tab [facility] -acetaminop 4-07 by mouth 2 [facility] hen (NORCO) 17:37: times of 7.5-325 MG 31 daily as Medic in per tablet needed for e Pain. Multiple 2020-0 Yes Take by Brittany r Vitamins-Mi 4-07 mouth [place] nerals 17:37: daily. of (MULTIVITAM 31 Medicin IN ADULT e OR) B Complex 2020-[address] Vitamins (B 4-07 mouth [place] COMPLEX 1 17:37: daily. of OR) 31 Medicin e Calcium 2020-0 Yes Take by [facility] Citrate-Vit 4-07 mouth two [facility] solomon D 17:37: times of (CALCIUM 31 daily. Medicin CITRATE + D e OR) [place]-3 2020-0 Yes Take by [facility] Fatty Acids - mouth [place] (FISH OIL) 17:37: daily. of 1200 MG 31 Medicin CAPS e Lactobacill 2020-0 Yes Take by fausto us - mouth [facility] (PROBIOTIC 17:37: daily. of ACIDOPHILUS 31 Medicin OR) e Calcium 2020-0 Yes Take by [facility] Polycarboph - mouth 3 Colle ge il 17:37: times of (FIBER-CAPS 31 daily. Medici n OR) e BIOTIN 5000 2020-0 Yes Take by ylor OR -07 mouth [place] 17:37: daily. of 31 Medicin e magnesium 2020-0 Yes 30mL Take 30 mL Ba ylor hydroxide 10-24 by mouth Colleg e (MILK OF 17:37: daily. of MAGNESIA) 31 Medicin suspension e L-THEANINE 2020-0 Yes 200mg Take 200 Ba ylor OR 10-24 mg by College 17:37: mouth of 31 daily. Medicin e Ascorbic 2020-0 Yes Take by [facility] r Acid 10-24 [facility] (VITAMIN C) 17:37: daily. of 500 MG CAPS 31 Medicin e Gabapentin 2020-0 Yes by [facility] L[facility]M 17:37: N route of enthol 31 daily. Medicin (SMARTRX e JOEY CO) ondansetron 2020-0 2020- No [id number] 4mg Take 1 Tab [facility] (ZOFRAN) 4 10-24 by mouth Shanel ege MG tablet 00:00: 04:59 every 8 of 00 :00 hours as Medicin needed for e Nausea for up to 30 days. lidocaine-p 2020-0 2020- No [id number] 1{appli Apply 1 [facility] rilocaine 10-24 cation} [facility] ([facility] 00:00: 04:59 n of 2.5-2.5 % 00 :00 topically Medic in cream as needed e for Other (apply over PORT 30-60 minutes prior to treatment) for up to 30 days. ondansetron 2020-0 2020- No [id number] 4mg Take 1 Tab [facility] (ZOFRAN) 4 10-24- by mouth Shanel ege MG tablet 00:00: 04:59 every 8 of 00 :00 hours as Medicin needed for e Nausea for up to 30 days. lidocaine-p 2020-0 2020- No [id number] 1{appli Apply 1 [facility] rilocaine 10-24 05-08 cation} [facility] 00:[facility]: 04:59 n of 2.5-2.5 % 00 :00 topically Medic in cream as needed e for Other (apply over PORT 30-60 minutes prior to treatment) for up to 30 days. ondansetron 2020-0 2020- No [id number] 4mg Take 1 Tab [facility] (ZOFRAN) 4 10-24-08 by mouth Shanel ege MG tablet 00:00: 04:59 every 8 of 00 :00 hours as Medicin needed for e Nausea for up to 30 days. lidocaine-p 2019-0 2020- No [id number] 1{appli Apply 1 [facility] rilocaine 4-08 cation} [facility] 00:00: 04:59 n of 2.5-2.5 % 00 :00 topically Medic in cream as needed e for Other (apply over PORT 30-60 minutes prior to treatment) for up to 30 days. Calcium 2020-0 Yes Take by [facility] Citrate-Vit 10-03 mouth two [facility] solomon D 20:44: times of (CALCIUM 44 daily. Medicin CITRATE + D e OR) [place]-3 2020-0 Yes Take by [facility] Fatty Acids 10-03 [facility] (FISH OIL) 20:44: daily. of 1200 MG 44 Medicin CAPS e Lactobacill 2020-0 Yes Take by fausto us 10-03 mouth [place] (PROBIOTIC 20:44: daily. of ACIDOPHILUS 44 Medicin OR) e Calcium 2020-0 Yes Take by [facility] Polycarboph [address] [place] [id number] Colle ge il 20:44: times of (FIBER-CAPS 44 daily. Medici n OR) e BIOTIN 5000 2020-0 Yes Take by saharaor OR 10-03 mouth [place] 20:44: daily. of 44 Medicin e magnesium 2020-0 Yes 30mL Take 30 mL Ba [facility] hydroxide 10-03 by mouth Colleg e (MILK OF 20:44: daily. of MAGNESIA) 44 Medicin suspension e L-THEANINE 2020-0 Yes 200mg Take 200 Ba ylor OR 3-17 mg by College 20:44: mouth of 44 daily. Medicin e Ascorbic 2020-0 Yes Take by [facility] r Acid 3-17 [facility] (VITAMIN C) 20:44: daily. of 500 MG CAPS 44 Medicin e Gabapentin 2020-0 Yes by [facility] & 3- COMBINATIO [place] Lidocaine-M 20:44: N route of enthol 44 daily. Medicin (SMARTRX e JOEY CO) levothyroxi 2020-0 Yes 125ug Take 125 B aylor ne 3-17 mcg by [place] (SYNTHROID) 20:44: mouth of 125 MCG 43 daily. Medicin tablet e gabapentin 2020-0 Yes 300mg Take 300 [facility] (NEURONTIN) 3-17 mg by [place] 300 MG 20:44: mouth of capsule 43 daily. Medicin e atorvastati 2020-0 Yes 20mg Take 20 mg [facility] n (LIPITOR) 3-17 by mouth Shanel ege 20 MG 20:44: daily. of tablet 43 Medicin e lamoTRIgine 2020-0 Yes 50mg Take 50 mg [facility] 50 MG TBDP 3-17 by mouth Colle ge 20:44: two times of 43 daily. Medicin e hydrOXYzine 2020-0 Yes 25mg Take 25 mg [facility] (ATARAX) 25 3-17 by mouth Shanel ege MG tablet 20:44: two times of 43 daily. Medicin e baclofen 2020-0 Yes 10mg Take [address] [place] [facility] (LIORESAL) 3-17 by mouth Colle ge 10 MG 20:44: two times of tablet 43 daily. Medicin e hydrocodone 2020-0 Yes 1{tbl} Take 1 Tab [facility] -acetaminop 3-17 by mouth 2 [facility] hen (NORCO) 20:44: times of 7.5-325 MG 43 daily as Medic in per tablet needed for e Pain. Multiple 2020-0 Yes Take by [facility] Vitamins-Mi 3-17 [facility] nerals 20:44: daily. of (MULTIVITAM 43 Medicin IN ADULT e OR) B Complex 2020-0 Yes Take by [facility] or Vitamins (B 3-17 [facility] COMPLEX 1 20:44: daily. of OR) 43 Medicin e triamterene 2020-0 Yes 1{capsu Take 1 Cap [facility] -hydrochlor 3-17 le} by mouth Shanel ege othiazide 20:31: every of (DYAZIDE) 15 morning. Medici n 37.5-25 MG e per capsule Spironolact 2020-0 Yes 25mg Take 25 mg [facility] one-HCTZ 3-17 by mouth [place] 25-25 MG 20:31: daily. of TABS 15 Medicin e potassium 2020-0 Yes 10meq Take 10 Bayl or chloride 3-17 mEq by [place] (MICRO-K) 20:31: mouth of 10 MEQ 15 daily. Medicin capsule e Ascorbic 2020-0 Yes 1{capsu Take 1 Cap [facility] Acid 2-13 le} by mouth [place] (VITAMIN C) 00:00: daily. of 500 MG CAPS 00 Medicin e [place]-3 2019-0 Yes 1{tbl} Take 1 Tab [facility] Fatty Acids 2-13 by mouth Shanel ege (FISH OIL) 00:00: daily. of 1200 MG 00 Medicin CAPS e B Yes 1{capsu Take 1 Cap [facility] or Complex-C-F 2-13 le} by mouth Shanel ege olic Acid 00:00: daily. of (SUPER B 00 Medicin COMPLEX/FA/ e VIT C OR) Turmeric 2019-0 Yes DAILY [facility] 500 MG CAPS 2-13 [place] 00:00: of 00 Medicin e Turmeric 2019-0 2020- No DAILY [facility] 500 MG CAPS 2-13 07-27 [place] 00:00: 00:00 of 00 :00 Medicin e Ascorbic 2019-0 2020- No 1{capsu Take 1 Cap [facility] Acid 2-13 -19 le} by mouth [place] (VITAMIN C) 00:00: 00:00 daily. of 500 MG CAPS 00 :00 Medicin e [place]-3 2019-0 2020- No 1{tbl} Take 1 Tab B aylor Fatty Acids 2-13 -19 by mouth Col [facility] (FISH OIL) 00:00: 00:00 daily. of 1200 MG 00 :00 Medicin CAPS e B 2019-0 2020- No 1{capsu Take [address] [place] dayna Complex-C-F 2-13 -19 le} by mouth Col [facility] olic Acid 00:00: 00:00 daily. of (SUPER B 00 :00 Medicin COMPLEX/FA/ e VIT C OR) Magnesium 2020-0 2020- No DAILY [facility] Oxide 250 2-13 11-19 College MG TABS 00:00: 00:00 of 00 :00 Medicin e Fiber Fiber Yes [place] as [facility] Formula Formula [place] [facility] Fish Oil Fish Oil Yes [place] [address] [facility] Gabapentin Gabapentin Yes [place] [address] [facility] [place] [facility] Atorvastati Atorvastati Yes [place] [address] [facility] [facility] n Calcium n Calcium [facility] Multivitami Multivitami Yes [place] as [facility] n n [place] [facility] Magnesium Magnesium Yes [place] [address] [facility] [place] [facility] Turmeric Turmeric Yes [place] [facility] Curcumin Curcumin [place] [facility] Probiotic Probiotic Yes [place] [facility] [place] [facility] Potassium Potassium Yes [place] [address] Bicarb-Citr Bicarb-Citr Casi [facility] Acid ic Acid [facility] Levothyroxi Levothyroxi Yes [place] [address] ne Sodium ne Sodium Casi on an [facility] empty [facility] stomach in l the Outpati morning ent Clinics Super B Super B Yes [place] [facility] Complex Complex [place] [facility] Gabapentin Gabapentin Yes [place] [address] [facility] [place] [facility] Clonazepam Clonazepam Yes [place] [address] Casi at bedtime [facility] Immunizations Ordered Filled Immunization Date Status Comments [facility] e Immunization Name Name Influenza Virus 2020-04-03 Completed [facility]00[facility]00 [facility] Influenza Virus 2020-04-03 Completed [facility] Vaccine 00:00:00 [facility] Influenza Virus 2020-04-03 Completed [facility] Vaccine 00:00:00 [facility] Influenza Virus 2020-04-03 Completed [facility] of Vaccine 00:00:00 [facility] Influenza Virus 2020-04-03 Completed [facility] of Vaccine 00:00:00 [facility] Influenza Virus 2020-04-03 Completed [facility]it [facility] of Vaccine 00:00:00 [facility] Influenza 2020-03-20 Completed [facility] Colle ge of 00:00:00 Medicine Influenza Hd 2020-03-20 Completed [facility] Colle ge of 00:00:00 Medicine Influenza Hd 2020-03-20 Completed [facility] Colle ge of 00:00:00 Medicine Influenza Hd 2020-03-20 Completed [facility] Colle ge of 00:00:00 Medicine Influenza Hd 2020-03-20 Completed [facility] Colle ge of 00:00:00 Medicine Influenza Hd 2020-03-20 Completed [facility] Colle ge of 00:00:00 Medicine Influenza Hd 2020-03-20 Completed [facility] Colle ge of 00:00:00 Medicine Influenza Hd 2020-03-20 Completed [facility] Colle ge of 00:00:00 Medicine Influenza Hd 2020-03-20 Completed [facility] Colle ge of 00:00:00 Medicine Vital Signs Vital Name Observation Time Observation Value Comments Source HEIGHT 2020-01-23 00:00:00 157.5 cm WEIGHT 2020-01-23 00:00:00 68.493 kg HEIGHT 2020-01-12 00:00:00 157.5 cm WEIGHT 2020-01-12 00:00:00 68.901 kg Systolic blood 2021-05-07 19:35:00 145 mm[Hg] [facility] Diastolic blood 2021-05-07 19:35:00 83 mm[Hg] [facility] Medicine Heart rate 2021-05-07 19:35:00 86 /min [facility] Body temperature 2021-05-07 19:35:00 36.78 [facility] Body height 2021-05-07 19:35:00 160 cm [facility] Body weight 2021-05-07 19:35:00 61.236 kg [facility] BMI 2021-05-07 19:35:00 23.91 kg/m2 [facility] Systolic blood 2021-01-29 17:28:00 122 mm[Hg] [facility] Diastolic blood 2021-01-29 17:28:00 78 mm[Hg] [facility] Medicine Heart rate 2021-01-29 17:28:00 78 /min [facility] Body temperature 2021-01-29 17:28:00 36.11 Ilana [facility] Body height 2021-01-29 17:28:00 157.5 cm [facility] Body weight 2021-01-29 17:28:00 64.32 kg [facility] BMI 2021-01-29 17:28:00 25.94 kg/m2 [facility] Medicine Systolic blood 2021-01-29 18:24:00 110 mm[Hg] [facility] pressure Medicine Diastolic blood 2021-01-29 18:24:00 77 mm[Hg] [facility] pressure Medicine Heart rate 2021-01-29 18:24:00 58 /min [facility] Body height 2021-01-29 18:24:00 160 cm [facility] Body weight 2021-01-29 18:24:00 63.957 kg [facility] BMI 2021-01-29 18:24:00 24.98 kg/m2 [facility] Medicine Systolic blood 2020-12-18 20:25:00 142 mm[Hg] [facility] pressure Medicine Diastolic blood 2020-12-18 20:25:00 95 mm[Hg] [facility] of pressure Medicine Heart rate 2020-12-18 20:25:00 78 /min [facility] Medicine Body height 2020-12-18 20:25:00 157.5 cm [facility] Medicine Body weight 2020-12-18 20:25:00 62.143 kg [facility] BMI 2020-12-18 20:25:00 25.06 kg/m2 [facility] Medicine Systolic blood 2020-11-15 16:09:00 131 mm[Hg] [facility] pressure Medicine Diastolic blood 2020-11-15 16:09:00 89 mm[Hg] [facility] pressure Medicine Heart rate 2020-11-15 16:09:00 64 /min [facility] Body height 2020-11-15 16:09:00 157.5 cm [facility] Medicine Body weight 2020-11-15 16:09:00 62.143 kg [facility] BMI 2020-11-15 16:09:00 25.06 kg/m2 [facility] Systolic blood 2020-10-26 16:41:00 139 mm[Hg] [facility] pressure Medicine Diastolic blood 2020-10-26 16:41:00 82 mm[Hg] [facility] Medicine Heart rate 2020-10-26 16:41:00 54 /min [facility] Body temperature 2020-10-26 16:41:00 36.44 [facility] Respiratory rate 2020-10-26 16:41:00 20 /min [facility] Body height 2020-10-26 16:41:00 157.5 cm [facility] Body weight 2020-10-26 16:41:00 62.415 kg [facility] BMI 2020-10-26 16:41:00 25.17 kg/m2 [facility] Systolic blood 2020-09-07 21:00:00 139 mm[Hg] [facility] pressure Medicine Diastolic blood 2020-09-07 21:00:00 82 mm[Hg] [facility] Medicine Heart rate 2020-09-07 21:00:00 62 /min [facility] Body height 2020-09-07 21:00:00 157.5 cm [facility] Body weight 2020-09-07 21:00:00 59.875 kg [facility] BMI 2020-09-07 21:00:00 24.14 kg/m2 [facility] Systolic blood 2020-08-02 16:01:00 122 mm[Hg] [facility] pressure Medicine Diastolic blood 2020-08-02 16:01:00 80 mm[Hg] [facility] pressure Medicine Heart rate 2020-08-02 16:01:00 82 /min [facility] Body height 2020-08-02 16:01:00 157.5 cm [facility] Medicine Body weight 2020-08-02 16:01:00 60.328 kg [facility] BMI 2020-08-02 16:01:00 24.33 kg/m2 [facility] Systolic blood 2020-07-27 17:29:00 157 mm[Hg] [facility] Diastolic blood 2020-07-27 17:29:00 97 mm[Hg] [facility] Medicine Heart rate 2020-07-27 17:29:00 66 /min [facility] Body temperature 2020-07-27 17:29:00 36.72 [facility] Body height 2020-07-27 17:29:00 157.5 cm [facility] Body weight 2020-07-27 17:29:00 59.33 kg [facility] BMI 2020-07-27 17:29:00 23.92 kg/m2 [facility] Medicine Systolic blood 2020-06-07 14:20:00 147 mm[Hg] [facility] pressure Medicine Diastolic blood 2020-06-07 14:20:00 96 mm[Hg] [facility] Medicine Heart rate 2020-06-07 14:20:00 93 /min [facility] Body height 2020-06-07 14:20:00 157.5 cm [facility] Body weight 2020-06-07 14:20:00 67.132 kg [facility] BMI 2020-06-07 14:20:00 27.07 kg/m2 [facility] Medicine Systolic blood 2020-06-07 14:20:00 147 mm[Hg] [facility] pressure Medicine Diastolic blood 2020-06-07 14:20:00 96 mm[Hg] [facility] Medicine Heart rate 2020-06-07 14:20:00 93 /min [facility] Body height 2020-06-07 14:20:00 157.5 cm [facility] Body weight 2020-06-07 14:20:00 67.132 kg [facility] BMI 2020-06-07 14:20:00 27.07 kg/m2 [facility] Systolic blood 2020-05-15 19:46:00 160 mm[Hg] [facility] pressure Medicine Diastolic blood 2020-05-15 19:46:00 84 mm[Hg] [facility] pressure Medicine Heart rate 2020-05-15 19:46:00 78 /min [facility] Body temperature 2020-05-15 19:46:00 36.83 [facility] Systolic blood 2020-05-15 19:46:00 160 mm[Hg] [facility] pressure Medicine Diastolic blood 2020-05-15 19:46:00 84 mm[Hg] [facility] pressure Medicine Heart rate 2020-05-15 19:46:00 78 /min [facility] Body temperature 2020-05-15 19:46:00 36.83 [facility] Systolic blood 2020-04-27 19:35:00 143 mm[Hg] [facility] pressure Medicine Diastolic blood 2020-04-27 19:35:00 83 mm[Hg] [facility] pressure Medicine Heart rate 2020-04-27 19:35:00 60 /min [facility] Body temperature 2020-04-27 19:35:00 36.78 [facility] Body height 2020-04-27 19:35:00 157.5 cm [facility] Body weight 2020-04-27 19:35:00 70.035 kg [facility] BMI 2020-04-27 19:35:00 28.24 kg/m2 [facility] Systolic blood 2020-04-27 19:35:00 143 mm[Hg] [facility] pressure Medicine Diastolic blood 2020-04-27 19:35:00 83 mm[Hg] [facility] Medicine Heart rate 2020-04-27 19:35:00 60 /min [facility] Body temperature 2020-04-27 19:35:00 36.78 Ilana [facility] or [facility] Body height 2020-04-27 19:35:00 157.5 cm [facility] Body weight 2020-04-27 19:35:00 70.035 kg [facility] BMI 2020-04-27 19:35:00 28.24 kg/m2 [facility] Systolic blood 2020-02-28 16:22:00 134 mm[Hg] [facility] pressure Medicine Diastolic blood 2020-02-28 16:22:00 78 mm[Hg] [facility] pressure Medicine Heart rate 2020-02-28 16:22:00 63 /min [facility] Body temperature 2020-02-28 16:22:00 36.83 [facility] Body height 2020-02-28 16:22:00 157.5 cm [facility] ol[facility] of [facility] Body weight 2020-02-28 16:22:00 73.573 kg [facility] of [facility] BMI 2020-02-28 16:22:00 29.67 kg/m2 [facility] ol[facility] of [facility] Systolic blood 2020-02-28 16:22:00 134 mm[Hg] [facility] of pressure Medicine Diastolic blood 2020-02-28 16:22:00 78 mm[Hg] [facility] Medicine Heart rate 2020-02-28 16:22:00 63 /min [facility] of [facility] Body temperature 2020-02-28 16:22:00 36.83 Ilaan [facility] Body height 2020-02-28 16:22:00 157.5 cm [facility] of [facility] Body weight 2020-02-28 16:22:00 73.573 kg [facility] of [facility] BMI 2020-02-28 16:22:00 29.67 kg/m2 [facility] of [facility] HEIGHT 2020-01-23 00:00:00 157.5 cm WEIGHT 2020-01-23 00:00:00 68.493 kg HEIGHT 2020-01-12 00:00:00 157.5 cm WEIGHT 2020-01-12 00:00:00 68.901 kg Systolic blood 2020-01-17 13:44:00 124 mm[Hg] [facility] pressure Medicine Diastolic blood 2020-01-17 13:44:00 78 mm[Hg] [facility] Medicine Heart rate 2020-01-17 13:44:00 71 /min [facility] Body temperature 2020-01-17 13:44:00 36.56 Il[facility] Body height 2020-01-17 13:44:00 157.5 cm [facility] Body weight 2020-01-17 13:44:00 70.308 kg [facility] BMI 2020-01-17 13:44:00 28.35 kg/m2 [facility] Systolic blood 2020-01-17 13:44:00 124 mm[Hg] [facility] of pressure Medicine Diastolic blood 2020-01-17 13:44:00 78 mm[Hg] [facility] of pressure Medicine Heart rate 2020-01-17 13:44:00 71 /min [facility] Body temperature 2020-01-17 13:44:00 36.56 Ilana [facility] or [facility] Body height 2020-01-17 13:44:00 157.5 cm [facility] Body weight 2020-01-17 13:44:00 70.308 kg [facility] BMI 2020-01-17 13:44:00 28.35 kg/m2 [facility] Systolic blood 2020-01-10 13:38:00 126 mm[Hg] [facility] of pressure Medicine Diastolic blood 2020-01-10 13:38:00 78 mm[Hg] [facility] of pressure Medicine Heart rate 2020-01-10 13:38:00 79 /min [facility] Body temperature 2020-01-10 13:38:00 36.61 Ilana [facility] or [facility] Body height 2020-01-10 13:38:00 157.5 cm [facility] Body weight 2020-01-10 13:38:00 70.58 kg [facility] [facility] BMI 2020-01-10 13:38:00 28.46 kg/m2 [facility] Systolic blood 2020-01-10 13:38:00 126 mm[Hg] [facility] pressure Medicine Diastolic blood 2020-01-10 13:38:00 78 mm[Hg] [facility] of pressure Medicine Heart rate 2020-01-10 13:38:00 79 /min [facility] Body temperature 2020-01-10 13:38:00 36.61 Ilana [facility] Body height 2020-01-10 13:38:00 157.5 cm [facility] Body weight 2020-01-10 13:38:00 70.58 kg [facility] BMI 2020-01-10 13:38:00 28.46 kg/m2 [facility] [employer] Systolic blood 2020-01-06 18:05:00 146 mm[Hg] [facility] of pressure Medicine Diastolic blood 2020-01-06 18:05:00 91 mm[Hg] [facility] of pressure Medicine Heart rate 2020-01-06 18:05:00 68 /min [facility] [employer] [employer] Body temperature 2020-01-06 18:05:00 36.78 Ilana [facility] Body height 2020-01-06 18:05:00 157.5 cm [facility] Body weight 2020-01-06 18:05:00 71.668 kg [facility] BMI 2020-01-06 18:05:00 28.90 kg/m2 [facility] Systolic blood 2020-01-06 18:05:00 146 mm[Hg] [facility] of pressure Medicine Diastolic blood 2020-01-06 18:05:00 91 mm[Hg] [facility] pressure Medicine Heart rate 2020-01-06 18:05:00 68 /min [facility] [employer] Body temperature 2020-01-06 18:05:00 36.78 [facility] or [facility] Body height 2020-01-06 18:05:00 157.5 cm [facility] Body weight 2020-01-06 18:05:00 71.668 kg [facility] BMI 2020-01-06 18:05:00 28.90 kg/m2 [facility] Body height 2019-12-14 14:05:00 157.5 cm [facility] Body weight 2019-12-14 14:05:00 70.308 kg [facility] BMI 2019-12-14 14:05:00 28.35 kg/m2 [facility] Body height 2019-12-14 14:05:00 157.5 cm [facility] Body weight 2019-12-14 14:05:00 70.308 kg [facility] BMI 2019-12-14 14:05:00 28.35 kg/m2 [facility] Systolic blood 2019-12-13 15:31:00 143 mm[Hg] [facility] of pressure Medicine Diastolic blood 2019-12-13 15:31:00 91 mm[Hg] [facility] pressure Medicine Heart rate 2019-12-13 15:31:00 80 /min [facility] Respiratory rate 2019-12-13 15:31:00 16 /min [facility] Body height 2019-12-13 15:31:00 157.5 cm [facility] Body weight 2019-12-13 15:31:00 70.761 kg [facility] BMI 2019-12-13 15:31:00 28.53 kg/m2 [facility] Oxygen saturation in 2019-12-13 15:31:00 98 /min [facility] of Arterial blood by Medicine Pulse oximetry Systolic blood 2019-12-13 15:31:00 143 mm[Hg] [facility] pressure Medicine Diastolic blood 2019-12-13 15:31:00 91 mm[Hg] [facility] Medicine Heart rate 2019-12-13 15:31:00 80 /min [facility] Respiratory rate 2019-12-13 15:31:00 16 /min [facility] Body height 2019-12-13 15:31:00 157.5 cm [facility] Body weight 2019-12-13 15:31:00 70.761 kg [facility] BMI 2019-12-13 15:31:00 28.53 kg/m2 [facility] Oxygen saturation in 2019-12-13 15:31:00 98 /min [facility] of Arterial blood by Medicine Pulse oximetry Systolic blood 2019-12-06 14:09:00 152 mm[Hg] [facility] pressure Medicine Diastolic blood 2019-12-06 14:09:00 82 mm[Hg] [facility] pressure Medicine Heart rate 2019-12-06 14:09:00 64 /min [facility] Body temperature 2019-12-06 14:09:00 36.5 Ilana [facility] Body height 2019-12-06 14:09:00 157.5 cm [facility] Body weight 2019-12-06 14:09:00 71.94 kg [facility] BMI 2019-12-06 14:09:00 29.01 kg/m2 [facility] Systolic blood 2019-12-06 14:09:00 152 mm[Hg] [facility] of pressure Medicine Diastolic blood 2019-12-06 14:09:00 82 mm[Hg] [facility] of pressure Medicine Heart rate 2019-12-06 14:09:00 64 /min [facility] Body temperature 2019-12-06 14:09:00 36.5 Ilana [facility] Body height 2019-12-06 14:09:00 157.5 cm [facility] Body weight 2019-12-06 14:09:00 71.94 kg [facility] BMI 2019-12-06 14:09:00 29.01 kg/m2 [facility] Systolic blood 2019-11-22 14:39:00 137 mm[Hg] [facility] of pressure Medicine Diastolic blood 2019-11-22 14:39:00 70 mm[Hg] [facility] of pressure Medicine Heart rate 2019-11-22 14:39:00 55 /min [facility] Body temperature 2019-11-22 14:39:00 36.61 Ilana [facility] Body height 2019-11-22 14:39:00 157.5 cm [facility] Body weight 2019-11-22 14:39:00 71.124 kg [facility] BMI 2019-11-22 14:39:00 28.68 kg/m2 [facility] Systolic blood 2019-11-22 14:39:00 137 mm[Hg] [facility] pressure Medicine Diastolic blood 2019-11-22 14:39:00 70 mm[Hg] [facility] of pressure Medicine Heart rate 2019-11-22 14:39:00 55 /min [facility] Body temperature 2019-11-22 14:39:00 36.61 Ilana [facility] Body height 2019-11-22 14:39:00 157.5 cm [facility] Body weight 2019-11-22 14:39:00 71.124 kg [facility] BMI 2019-11-22 14:39:00 28.68 kg/m2 [facility] Systolic blood 2019-11-08 14:07:00 144 mm[Hg] [facility] pressure Medicine Diastolic blood 2019-11-08 14:07:00 85 mm[Hg] [facility] of pressure Medicine Heart rate 2019-11-08 14:07:00 58 /min [facility] Body temperature 2019-11-08 14:07:00 36.44 Ilana [facility] Body height 2019-11-08 14:07:00 157.5 cm [facility] Body weight 2019-11-08 14:07:00 71.578 kg [facility] BMI 2019-11-08 14:07:00 28.86 kg/m2 [facility] Systolic blood 2019-11-08 14:07:00 144 mm[Hg] [facility] pressure Medicine Diastolic blood 2019-11-08 14:07:00 85 mm[Hg] [facility] of pressure Medicine Heart rate 2019-11-08 14:07:00 58 /min [facility] Body temperature 2019-11-08 14:07:00 36.44 Ilana [facility] Body height 2019-11-08 14:07:00 157.5 cm [facility] Body weight 2019-11-08 14:07:00 71.578 kg [facility] BMI 2019-11-08 14:07:00 28.86 kg/m2 [facility] Body weight 2019-10-25 17:38:00 70.171 kg [facility] BMI 2019-10-25 17:38:00 28.30 kg/m2 [facility] Systolic blood 2019-10-25 17:38:00 154 mm[Hg] [facility] pressure Medicine Diastolic blood 2019-10-25 17:38:00 86 mm[Hg] [facility] Medicine Heart rate 2019-10-25 17:38:00 52 /min [facility] Body temperature 2019-10-25 17:38:00 36.56 Ilana [facility] Respiratory rate 2019-10-25 17:38:00 18 /min [facility] Body height 2019-10-25 17:38:00 157.5 cm [facility] Body weight 2019-10-25 17:38:00 70.171 kg [facility] BMI 2019-10-25 17:38:00 28.30 [facility]m2 [facility] Systolic blood 2019-10-25 17:38:00 154 mm[Hg] [facility] Diastolic blood 2019-10-25 17:38:00 86 mm[Hg] [facility] Heart rate 2019-10-25 17:38:00 52 /min [facility] Body temperature 2019-10-25 17:38:00 36.56 Ilana [facility] Respiratory rate 2019-10-25 17:38:00 18 /min [facility] Body height 2019-10-25 17:38:00 157.5 cm [facility] Systolic blood 2019-10-04 20:10:00 142 mm[Hg] [facility] Diastolic blood 2019-10-04 20:10:00 89 mm[Hg] [facility] Heart rate 2019-10-04 20:10:00 58 /min [facility] Body temperature 2019-10-04 20:10:00 36.56 Ilana [facility] Respiratory rate 2019-10-04 20:10:00 18 /min [facility] Body height 2019-10-04 20:10:00 160 cm [facility] Body weight 2019-10-04 20:10:00 71.668 [facility] BMI 2019-10-04 20:10:00 27.99 kg/m2 [facility] Systolic blood 2019-10-04 20:10:00 142 mm[Hg] [facility] pressure Medicine Diastolic blood 2019-10-04 20:10:00 89 mm[Hg] [facility] pressure Medicine Heart rate 2019-10-04 20:10:00 58 /min [facility] Body temperature 2019-10-04 20:10:00 36.56 Ilana [facility] Respiratory rate 2019-10-04 20:10:00 18 /min [facility] Body height 2019-10-04 20:10:00 160 cm [facility] Body weight 2019-10-04 20:10:00 71.668 kg [facility] BMI 2019-10-04 20:10:00 27.99 kg/m2 [facility] Systolic blood 2020-01-06 18:05:00 146 mm[Hg] [facility] Diastolic blood 2020-01-06 18:05:00 91 mm[Hg] [facility] Heart rate 2020-01-06 18:05:00 68 /min [facility] Body temperature 2020-01-06 18:05:00 36.78 Ilana [facility] Body height 2020-01-06 18:05:00 157.5 cm [facility] Body weight 2020-01-06 18:05:00 71.668 kg [facility] BMI 2020-01-06 18:05:00 28.90 kg/m2 [facility] Respiratory rate 2020-01-04 15:16:00 16 /min [facility] Oxygen saturation in 2019-12-13 15:31:00 98 /min [facility] Arterial blood by [facility] Pulse oximetry Procedures Procedure Date / Time Performing Clinician Source Performed EXTERNAL PROVIDER RECORDS 2020-10-05 05:01:00 Doctor Unassigned, [facility] BI SCREENING MAMMOGRAM 2020-07-19 18:09:33 lAec Foss [facility] BILATERAL Medical [place] US PELVIS COMPLETE WITH 2020-07-19 17:44:07 Alec Foss [facility] TRANSVAGINAL Medical Branch HEAD NECK 2020-07-19 17:37:41 Pipo Alec Loretto o f [facility] ASSIGNMENT OF BENEFITS 2020-07-19 16:40:50 Doctor Unassigned, [facility] ASSIGNMENT OF BENEFITS 2020-06-25 19:52:55 Doctor Unassigned, Un [facility] POCT URINALYSIS DIPSTICK 2020-05-15 00:00:00 Dick Henriquez [facility] COMPREHENSIVE METABOLIC 2020-02-21 21:30:00 Dick Henriquez [facility] PANEL Medicine CBC W/AUTO DIFF WITH 2020-02-21 21:30:00 Dick Henriquez [facility] PLATELETS Medicine XR LUMBAR SPINE 2 VIEWS AP 2020-01-06 20:56:29 Giancarlo Doherty [facility] AND [facility] CBC W ABSOLUTE NEUTROPHIL 2019-12-20 05:00:00 Omar Yen [facility] COUNT Medicine COMPREHENSIVE METABOLIC 2019-12-20 05:00:00 Omar Yen [facility] PANEL Medicine MAGNESIUM 2019-12-20 05:00:00 Omar Yen janine [facility] MYOCARD PERFUSION - 2019-12-19 15:51:01 Frandy [facility] LEXISCAN [facility] ECHO, COMPLETE 2019-12-19 13:44:45 Frandy [facility] EJECTION FRACTION RESULT 2019-12-19 00:00:00 Provider, Maggie snyder [facility] ELECTROCARDIOGRAM COMPLETE 2019-12-13 18:09:26 [facility] ELECTROCARDIOGRAM COMPLETE 2019-12-13 18:09:26 Frandy [facility] CBC W/AUTO DIFF WITH 2019-12-06 14:22:00 Omar Yen [facility] Medicine COMPREHENSIVE METABOLIC 2019-12-06 14:22:00 Omar Yen [facility] PANEL Medicine MAGNESIUM 2019-12-06 14:22:00 Ailin Yenlemuel Castano [facility] CBC W ABSOLUTE NEUTROPHIL 2019-11-22 13:42:00 Omar Yen janine [facility] COUNT Medicine COMPREHENSIVE METABOLIC 2019-11-22 13:42:00 Omar Yen [facility] PANEL Medicine MAGNESIUM 2019-11-22 13:42:00 Omar Yen [facility] COMPREHENSIVE METABOLIC 2019-11-08 13:29:00 Omar Yen [facility] Medicine MAGNESIUM 2019-11-08 13:29:00 Omar Yen [facility] ANG,TUNNEL CATH,CENTRAL 2019-11-01 20:08:00 Omar Yen [facility] W Medicine CBC W/AUTO DIFF WITH 2019-11-01 14:45:00 Omar Yen [facility] PROTIME-INR 2019-11-01 14:45:00 Mercy Garcia [facility] APTT 2019-11-01 14:45:00 Mercy Garcia [facility] CT CHEST W CONTRAST 2019-10-27 18:15:00 Dick Henriquez [facility] SURGICAL PATHOLOGY REPORT 2019-10-14 14:26:00 Dick Henriquez [facility] CT ABDOMEN PELVIS W WO 2019-10-12 20:47:00 Dick Henriquez [facility] CHEST 2 VIEWS 2019-10-12 20:12:00 Dick Henriquez [facility] POCT URINALYSIS DIPSTICK 2019-10-04 00:00:00 Dick Henriquez [facility] Plan of Care Planned Activity Planned Date Details Comments Source Future Scheduled 2021-05-07 CT CHEST ABDOMEN PELVIS 1 Occurrences [facility] Test 14:59:03 W CONTRAST [code = [place] [address]-9] 05/07/2021 until 05/07/2022 Future Scheduled 2021-05-07 Screening for malignant [facility] Test 14:45:26 neoplasm of colon of Medicin e (procedure) [code = 084826542] Future Scheduled 2021-05-07 COVID-19 Vaccine (1) [facility] Test 14:45:26 [code = COVID-19 of Medicine Vaccine (1)] Future Scheduled 2021-05-07 TETANUS SHOT (ADULT) [facility] Test 14:45:26 [code = TETANUS SHOT of [facility] cine (ADULT)] Future Scheduled 2021-05-07 Hepatitis C screening [employer] Test 14:45:26 (procedure) [code = of Medic ine 387962854] Future Scheduled 2021-05-07 ZOSTER VACCINE (1 of 2) [facility] Test 14:45:26 [code = ZOSTER VACCINE of Me dicine (1 of 2)] Future Scheduled 2021-05-07 FALL SCREEN [code = [employer] Test 14:45:26 FALL SCREEN] of Medicine Future Scheduled 2021-05-07 Screening for [facility] [employer] Test 14:45:26 osteoporosis of Medicine (procedure) [code = 853258842] Future Scheduled 2021-05-07 PNEUMOVAX >=65 (PPSV23) [facility] Test 14:45:26 [code = PNEUMOVAX >=65 of Me dicine (PPSV23)] Future Scheduled 2021-05-07 MEDICARE AWV (Initial) [facility] Test 14:45:26 [code = MEDICARE AWV of Medi cine (Initial)] Future Scheduled 2021-05-07 FLU VACCINE > 6 MONTHS [employer] Test 14:45:26 [code = FLU VACCINE > 6 of M edicine MONTHS] Future Scheduled 2021-05-07 Screening for malignant [facility] Test 14:45:26 neoplasm of breast of Medici ne (procedure) [code = 308865187] Future Scheduled 2021-05-01 CT CHEST ABDOMEN PELVIS Expected: [facility] Test 00:00:00 W CONTRAST [code = 05/01/2021, [place] [address]-2] Expires: 01/29/2022 Future Scheduled 2021-01-29 Screening for malignant [facility] Test 14:20:34 neoplasm of colon of Medicin e (procedure) [code = 915782474] Future Scheduled 2021-01-29 COVID-19 Vaccine (1) [facility] [employer] Test 14:20:34 [code = COVID-19 of Medicine Vaccine (1)] Future Scheduled 2021-01-29 TETANUS SHOT (ADULT) [facility] [employer] Test 14:20:34 [code = TETANUS SHOT of Medi cine (ADULT)] Future Scheduled 2021-01-29 Hepatitis C screening [employer] Test 14:20:34 (procedure) [code = of Medic ine 193125901] Future Scheduled 2021-01-29 ZOSTER VACCINE (1 of 2) [facility] [employer] Test 14:20:34 [code = ZOSTER VACCINE of Me dicine (1 of 2)] Future Scheduled 2021-01-29 FALL SCREEN [code = [employer] Test 14:20:34 FALL SCREEN] of Medicine Future Scheduled 2021-01-29 Screening for [facility] [employer] Test 14:20:34 osteoporosis of Medicine (procedure) [code = 815332231] Future Scheduled 2021-01-29 PNEUMOVAX >=65 (PPSV23) [facility] Test 14:20:34 [code = PNEUMOVAX >=65 of Me dicine (PPSV23)] Future Scheduled 2021-01-29 MEDICARE IPPE (WELCOME B [facility] Test 14:20:34 TO MEDICARE) [code = of Medi cine MEDICARE IPPE (WELCOME TO MEDICARE)] Future Scheduled 2021-01-29 FLU VACCINE > 6 MONTHS [facility] Test 14:20:34 [code = FLU VACCINE > 6 of M edicine MONTHS] Future Scheduled 2021-01-29 Screening for malignant [facility] Test 14:20:34 neoplasm of breast of Medici ne (procedure) [code = 266626218] Future Scheduled 2021-01-29 Screening for malignant [facility] Test 13:25:47 neoplasm of colon of Medicin e (procedure) [code = 571969143] Future Scheduled 2021-01-29 COVID-19 Vaccine (1) [facility] [employer] Test 13:25:47 [code = COVID-19 of Medicine Vaccine (1)] Future Scheduled 2021-01-29 TETANUS SHOT (ADULT) [facility] [employer] Test 13:25:47 [code = TETANUS SHOT of Medi cine (ADULT)] Future Scheduled 2021-01-29 BMI FOLLOW UP PLAN [employer] Test 13:25:47 [code = BMI FOLLOW UP of Med icine PLAN] Future Scheduled 2021-01-29 Hepatitis C screening [employer] Test 13:25:47 (procedure) [code = of Medic ine 245484144] Future Scheduled 2021-01-29 ZOSTER VACCINE (1 of 2) [facility] Test 13:25:47 [code = ZOSTER VACCINE of Me dicine (1 of 2)] Future Scheduled 2021-01-29 FALL SCREEN [code = [employer] Test 13:25:47 FALL SCREEN] of Medicine Future Scheduled 2021-01-29 Screening for [facility] [employer] Test 13:25:47 osteoporosis of Medicine (procedure) [code = 254965844] Future Scheduled 2021-01-29 PNEUMOVAX >=65 (PPSV23) [facility] Test 13:25:47 [code = PNEUMOVAX >=65 of Me dicine (PPSV23)] Future Scheduled 2021-01-29 MEDICARE IPPE (WELCOME [facility] Test 13:25:47 TO MEDICARE) [code = of Medi cine MEDICARE IPPE (WELCOME TO MEDICARE)] Future Scheduled 2021-01-29 FLU VACCINE > 6 MONTHS [employer] Test 13:25:47 [code = FLU VACCINE > 6 of M edicine MONTHS] Future Scheduled 2021-01-29 Screening for malignant [facility] Test 13:25:47 neoplasm of breast of Medici ne (procedure) [code = 734396838] Future Scheduled 2021-01-29 CBC W/AUTO DIFF WITH Ordered: [facility] Test 12:59:23 PLATELETS [code = 01/29/2021 of Medicin e 78185-2] Future Scheduled 2021-01-29 COMPREHENSIVE METABOLIC Ordered: [facility] Test 12:59:23 PANEL [code = 68074-4] 01/29/2021 of Me dicine Future Scheduled 2021-01-29 MAGNESIUM [code = Ordered: [facility] Test 12:59:23 72223-6] 01/29/2021 of Medicine Future Scheduled 2021-01-29 VITAMIN B12 [code = Ordered: [facility] Test 12:59:23 2132-9] 01/29/2021 of Medicine Future Scheduled 2020-12-18 Screening for malignant [facility] Test 15:26:17 neoplasm of colon of Medicin e (procedure) [code = 730537449] Future Scheduled 2020-12-18 COVID-19 Vaccine (1) [facility] Test 15:26:17 [code = COVID-19 of Medicine Vaccine (1)] Future Scheduled 2020-12-18 TETANUS SHOT (ADULT) [facility] Test 15:26:17 [code = TETANUS SHOT of Medi cine (ADULT)] Future Scheduled 2020-12-18 BMI FOLLOW UP PLAN [facility] Test 15:26:17 [code = BMI FOLLOW UP of Med icine PLAN] Future Scheduled 2020-12-18 Hepatitis C screening [employer] Test 15:26:17 (procedure) [code = of Medic ine 153464857] Future Scheduled 2020-12-18 ZOSTER VACCINE (1 of 2) [facility] [employer] Test 15:26:17 [code = ZOSTER VACCINE of Me dicine (1 of 2)] Future Scheduled 2020-12-18 Screening for [facility] [employer] Test 15:26:17 osteoporosis of Medicine (procedure) [code = 408432148] Future Scheduled 2020-12-18 PNEUMOVAX >=65 (PPSV23) [facility] [employer] Test 15:26:17 [code = PNEUMOVAX >=65 of Me dicine (PPSV23)] Future Scheduled 2020-12-18 MEDICARE IPPE (WELCOME [facility] Test 15:26:17 TO MEDICARE) [code = of Medi cine MEDICARE IPPE (WELCOME TO MEDICARE)] Future Scheduled 2020-12-18 FALL SCREEN [code = [employer] Test 15:26:17 FALL SCREEN] of Medicine Future Scheduled 2020-12-18 FLU VACCINE > 6 MONTHS [employer] Test 15:26:17 [code = FLU VACCINE > 6 of edicine MONTHS] Future Scheduled 2020-12-18 Screening for malignant [facility] Test 15:26:17 neoplasm of breast of Medici ne (procedure) [code = 972867924] Diagnostic Test 2020-10-25 CT CHEST ABDOMEN PELVIS Expected: [employer] Pending 00:00:00 W CONTRAST [code = 10/25/2020, [place] [address]-8] Expires: 07/27/2021 Diagnostic Test 2020-04-05 CT ABDOMEN PELVIS W WO Expected: [employer] Pending 00:00:00 CONTRAST [code = 04/05/2020, of Medicine 75131-9] Expires: 05/05/2020 Diagnostic Test 2019-12-13 MYOCARD PERFUSION - Expected: [employer] Pending 00:00:00 LEXISCAN [code = 09327] 12/13/2019, of M edicine Expires: 06/14/2021 Diagnostic Test 2019-12-13 ECHO, COMPLETE [code = Expected: [employer] Pending 00:00:00 94505] 12/13/2019, of Medicine Expires: 06/14/2020 Diagnostic Test 2019-11-01 IR PORT PLACEMENT EQUAL Expected: [employer] Pending 00:00:00 OR > 5 YEARS [code = 11/01/2019, of Medi cine 93845] Expires: 10/24/2020 Future Scheduled Screening for malignant [facility] Test neoplasm of colon of Medicin e (procedure) [code = 154456581] Future Scheduled TETANUS SHOT (ADULT) [facility] Test [code = TETANUS SHOT of Medi cine (ADULT)] Future Scheduled COVID-19 Vaccine (1) [employer] Test [code = COVID-19 of Medicine Vaccine (1)] Future Scheduled Hepatitis C screening [employer] Test (procedure) [code = of Medic ine 686598650] Future Scheduled ZOSTER VACCINE (1 of 2) [facility] Test [code = ZOSTER VACCINE of Me dicine (1 of 2)] Future Scheduled Screening for [facility] Test osteoporosis of Medicine (procedure) [code = 146549890] Future Scheduled PNEUMOVAX >=65 (PPSV23) [facility] Test [code = PNEUMOVAX >=65 of Me dicine (PPSV23)] Future Scheduled MEDICARE IPPE (WELCOME [employer] [facility] TO MEDICARE) [code = of Slated MEDICARE IPPE (WELCOME TO MEDICARE)] Future Scheduled FALL SCREEN [code = [employer] [facility] FALL SCREEN] of Medicine Future Scheduled Screening for malignant [facility] Test neoplasm of breast of Medici ne (procedure) [code = 469553027] Future Scheduled CBC W/AUTO DIFF WITH Ordered: [employer] Test PLATELETS [code = 10/25/2019 of Medicin e 77364-2] Future Scheduled Screening for malignant [facility] Test neoplasm of colon of Medicin e (procedure) [code = 745516902] Future Scheduled TETANUS SHOT (ADULT) [employer] [facility] [code = TETANUS SHOT of Medi cine (ADULT)] Future Scheduled COVID-19 Vaccine (1) [facility] [facility] [code = COVID-19 of Medicine Vaccine (1)] Future Scheduled Hepatitis C screening [employer] [facility] (procedure) [code = of Medic ine [id number]] Future Scheduled ZOSTER VACCINE (1 of 2) [facility] Test [code = ZOSTER VACCINE of Me dicine (1 of 2)] Future Scheduled Screening for [employer] [facility] osteoporosis of Medicine (procedure) [code = [id number]] Future Scheduled PNEUMOVAX >=65 (PPSV23) [facility] Test [code = PNEUMOVAX >=65 of Me dicine (PPSV23)] Future Scheduled MEDICARE IPPE (WELCOME [employer] [facility] TO MEDICARE) [code = of Medi cine MEDICARE IPPE (WELCOME TO MEDICARE)] Future Scheduled COMPREHENSIVE METABOLIC Ordered: [facility] Test PANEL [code = 57256-5] 10/25/2019 of Me dicine Future Scheduled FALL SCREEN [code = [employer] [facility] FALL SCREEN] of Medicine Future Scheduled Screening for malignant [facility] Test neoplasm of breast of Medici ne (procedure) [code = 404736477] Future Scheduled MAGNESIUM [code = Ordered: [facility] Test 37751-3] 10/25/2019 of Medicine Future Scheduled COLON CANCER SCREENING: [facility] Test COLONOSCOPY [code = of Medic ine COLON CANCER SCREENING: COLONOSCOPY] Future Scheduled Screening for malignant [facility] Test neoplasm of colon of Medicin e (procedure) [code = 549454942] Future Scheduled TETANUS SHOT (ADULT) [facility] [facility] [code = TETANUS SHOT of Medi cine (ADULT)] Future Scheduled COVID-19 Vaccine (1) [employer] [facility] [code = COVID-19 of Medicine Vaccine (1)] Future Scheduled BMI FOLLOW UP PLAN [employer] [facility] [code = BMI FOLLOW UP of Med icine PLAN] Future Scheduled Hepatitis C screening [employer] [facility] (procedure) [code = of Medic ine [id number]] Future Scheduled MAMMOGRAM ANNUAL [code [facility] Test = MAMMOGRAM ANNUAL] of Medic ine Future Scheduled ZOSTER VACCINE (1 of 2) [facility] Test [code = ZOSTER VACCINE of Me dicine (1 of 2)] Future Scheduled Screening for [facility] Test osteoporosis of Medicine (procedure) [code = 740294935] Future Scheduled PNEUMOVAX >=65 (PPSV23) [facility] Test [code = PNEUMOVAX >=65 of Me dicine (PPSV23)] Future Scheduled MEDICARE IPPE (WELCOME [facility] TO MEDICARE) [code = of Medi cine MEDICARE IPPE (WELCOME TO MEDICARE)] Future Scheduled FALL SCREEN [code = [employer] [facility] FALL SCREEN] of Medicine Future Scheduled FLU VACCINE > 6 MONTHS [employer] [facility] [code = FLU VACCINE > 6 of M edicine MONTHS] Future Scheduled Screening for malignant [facility] Test neoplasm of breast of Medici ne (procedure) [code = 314239548] Future Scheduled TETANUS SHOT (ADULT) [facility] [facility] [code = TETANUS SHOT of Medi cine (ADULT)] Future Scheduled BMI FOLLOW UP PLAN [employer] [facility] [code = BMI FOLLOW UP of Med icine PLAN] Future Scheduled Screening for malignant [employer] Test neoplasm of colon of Medicin e (procedure) [code = 293172365] Future Scheduled TETANUS SHOT (ADULT) [employer] [facility] [code = TETANUS SHOT of Medi cine (ADULT)] Future Scheduled COVID-19 Vaccine (1) [facility] [facility] [code = COVID-19 of Medicine Vaccine (1)] Future Scheduled BMI FOLLOW UP PLAN [employer] [facility] [code = BMI FOLLOW UP of Med icine PLAN] Future Scheduled HEPATITIS C SCREENING [employer] [facility] [code = HEPATITIS C of Medic ine SCREENING] Future Scheduled Hepatitis C screening [employer] [facility] (procedure) [code = of Medic ine [id number]] Future Scheduled ZOSTER VACCINE (1 of 2) [facility] Test [code = ZOSTER VACCINE of Me dicine (1 of 2)] Future Scheduled Screening for [facility] Test osteoporosis of Medicine (procedure) [code = 832800710] Future Scheduled PNEUMOVAX >=65 (PPSV23) [facility] Test [code = PNEUMOVAX >=65 of Me dicine (PPSV23)] Future Scheduled MEDICARE IPPE (WELCOME [employer] [facility] TO MEDICARE) [code = of Medi cine MEDICARE IPPE (WELCOME TO MEDICARE)] Future Scheduled FALL SCREEN [code = [employer] [facility] FALL SCREEN] of Medicine Future Scheduled FLU VACCINE > 6 MONTHS [employer] [facility] [code = FLU VACCINE > 6 of M edicine MONTHS] Future Scheduled Screening for malignant [facility] [employer] Test neoplasm of breast of Medici ne (procedure) [code = 265838525] Future Scheduled FALL SCREEN [code = [employer] [facility] FALL SCREEN] of Medicine Future Scheduled OSTEOPOROSIS SCREENING [employer] [facility] [code = OSTEOPOROSIS of Medi cine SCREENING] Future Scheduled PNEUMOVAX >=65 (PPSV23) [facility] Test [code = PNEUMOVAX >=65 of Me dicine (PPSV23)] Future Scheduled PREVNAR >= 65 (PCV13) [employer] [facility] [code = PREVNAR >= 65 of Med icine (PCV13)] Future Scheduled FLU VACCINE > 6 MONTHS [employer] [facility] [code = FLU VACCINE > 6 of M edicine MONTHS] Future Scheduled CBC W/AUTO DIFF WITH Ordered: [facility] [facility] PLATELETS [code = 11/08/2019 of Medicin e 32648-9] Future Scheduled COMPREHENSIVE METABOLIC Ordered: [facility] Test PANEL [code = 61668-7] 11/08/2019 of Me dicine Future Scheduled MAGNESIUM [code = Ordered: [facility] Test 64397-9] 11/08/2019 of Medicine Future Scheduled COLON CANCER SCREENING: [facility] Test COLONOSCOPY [code = of Medic ine COLON CANCER SCREENING: COLONOSCOPY] Future Scheduled MAMMOGRAM ANNUAL [code [employer] [facility] = MAMMOGRAM ANNUAL] of Medic ine Future Scheduled TETANUS SHOT (ADULT) [facility] [facility] [code = TETANUS SHOT of Medi cine (ADULT)] Future Scheduled BMI FOLLOW UP PLAN [employer] [facility] [code = BMI FOLLOW UP of Med icine PLAN] Future Scheduled HEPATITIS C SCREENING [employer] [facility] [code = HEPATITIS C of Medic ine SCREENING] Future Scheduled OSTEOPOROSIS SCREENING [employer] [facility] [code = OSTEOPOROSIS of Medi cine SCREENING] Future Scheduled PNEUMOVAX >=65 (PPSV23) [facility] Test [code = PNEUMOVAX >=65 of Me dicine (PPSV23)] Future Scheduled PREVNAR >= 65 (PCV13) [employer] [facility] [code = PREVNAR >= 65 of Med icine (PCV13)] Future Scheduled FLU VACCINE > 6 MONTHS [employer] [facility] [code = FLU VACCINE > 6 of M edicine MONTHS] Future Scheduled FALL SCREEN [code = [facility] [place] [facility] FALL SCREEN] of Medicine Future Scheduled CBC W/AUTO DIFF WITH Ordered: [facility] [employer] [facility] PLATELETS [code = 11/22/2019 of Medicin e 25798-1] Future Scheduled COMPREHENSIVE METABOLIC Ordered: [facility] [employer] Test PANEL [code = 06811-5] 11/22/2019 of Me dicine Future Scheduled MAGNESIUM [code = Ordered: [facility] Test 48967-0] 11/22/2019 of Medicine Future Scheduled COLON CANCER SCREENING: [facility] Test COLONOSCOPY [code = of Medic ine COLON CANCER SCREENING: COLONOSCOPY] Future Scheduled MAMMOGRAM ANNUAL [code [employer] [facility] = MAMMOGRAM ANNUAL] of Medic ine Future Scheduled TETANUS SHOT (ADULT) [facility] [facility] [code = TETANUS SHOT of Medi cine (ADULT)] Future Scheduled BMI FOLLOW UP PLAN [employer] [facility] [code = BMI FOLLOW UP of Med icine PLAN] Future Scheduled HEPATITIS C SCREENING [employer] [facility] [code = HEPATITIS C of Medic ine SCREENING] Future Scheduled OSTEOPOROSIS SCREENING [employer] [facility] [code = OSTEOPOROSIS of Medi cine SCREENING] Future Scheduled PNEUMOVAX >=65 (PPSV23) [facility] Test [code = PNEUMOVAX >=65 of Me dicine (PPSV23)] Future Scheduled PREVNAR >= 65 (PCV13) [employer] [facility] [code = PREVNAR >= 65 of Med icine (PCV13)] Future Scheduled FLU VACCINE > 6 MONTHS [employer] [facility] [code = FLU VACCINE > 6 of M edicine MONTHS] Future Scheduled FALL SCREEN [code = [employer] [facility] FALL SCREEN] of Medicine Future Scheduled COLON CANCER SCREENING: [facility] Test COLONOSCOPY [code = of Medic ine COLON CANCER SCREENING: COLONOSCOPY] Future Scheduled MAMMOGRAM ANNUAL [code [facility] = MAMMOGRAM ANNUAL] of Medic ine Future Scheduled TETANUS SHOT (ADULT) [employer] [facility] [code = TETANUS SHOT of Medi cine (ADULT)] Future Scheduled BMI FOLLOW UP PLAN [facility] [code = BMI FOLLOW UP of Med icine PLAN] Future Scheduled HEPATITIS C SCREENING [employer] [facility] [code = HEPATITIS C of Medic ine SCREENING] Future Scheduled OSTEOPOROSIS SCREENING [employer] [facility] [code = OSTEOPOROSIS of Medi cine SCREENING] Future Scheduled PNEUMOVAX >=65 (PPSV23) [facility] Test [code = PNEUMOVAX >=65 of Me dicine (PPSV23)] Future Scheduled PREVNAR >= 65 (PCV13) [employer] [facility] [code = PREVNAR >= 65 of Med icine (PCV13)] Future Scheduled FLU VACCINE > 6 MONTHS [employer] [facility] [code = FLU VACCINE > 6 of M edicine MONTHS] Future Scheduled FALL SCREEN [code = [employer] [facility] FALL SCREEN] of Medicine Future Scheduled ELECTROCARDIOGRAM [facility] [employer] Test COMPLETE [code = 08770] of M edicine Future Scheduled COLON CANCER SCREENING: [facility] Test COLONOSCOPY [code = of Medic ine COLON CANCER SCREENING: COLONOSCOPY] Future Scheduled MAMMOGRAM ANNUAL [code [facility] = MAMMOGRAM ANNUAL] of Medic ine Future Scheduled TETANUS SHOT (ADULT) [facility] [facility] [code = TETANUS SHOT of Medi cine (ADULT)] Future Scheduled BMI FOLLOW UP PLAN [employer] [facility] [code = BMI FOLLOW UP of Med icine PLAN] Future Scheduled HEPATITIS C SCREENING [employer] [facility] [code = HEPATITIS C of Medic ine SCREENING] Future Scheduled OSTEOPOROSIS SCREENING [employer] [facility] [code = OSTEOPOROSIS of Medi cine SCREENING] Future Scheduled PNEUMOVAX >=65 (PPSV23) [employer] [facility] [code = PNEUMOVAX >=65 of Me dicine (PPSV23)] Future Scheduled PREVNAR >= 65 (PCV13) [employer] Test [code = PREVNAR >= 65 of Med icine (PCV13)] Future Scheduled FLU VACCINE > 6 MONTHS [employer] [facility] [code = FLU VACCINE > 6 of M edicine MONTHS] Future Scheduled FALL SCREEN [code = [employer] [facility] FALL SCREEN] of Medicine Future Scheduled PA MED NUTR THER, 1ST, Ordered: [employer] [facility] INDIV, EA 15 MIN [code 12/14/2019 of Me dicine = 08232] Future Scheduled COLON CANCER SCREENING: [facility] Test COLONOSCOPY [code = of Medic ine COLON CANCER SCREENING: COLONOSCOPY] Future Scheduled MAMMOGRAM ANNUAL [code [facility] = MAMMOGRAM ANNUAL] of Medic ine Future Scheduled TETANUS SHOT (ADULT) [facility] [facility] [code = TETANUS SHOT of Medi cine (ADULT)] Future Scheduled BMI FOLLOW UP PLAN [facility] [employer] [facility] [code = BMI FOLLOW UP of Med icine PLAN] Future Scheduled HEPATITIS C SCREENING [employer] [facility] [code = HEPATITIS C of Medic ine SCREENING] Future Scheduled OSTEOPOROSIS SCREENING [employer] [facility] [code = OSTEOPOROSIS of Medi cine SCREENING] Future Scheduled PNEUMOVAX >=65 (PPSV23) [facility] Test [code = PNEUMOVAX >=65 of Me dicine (PPSV23)] Future Scheduled PREVNAR >= 65 (PCV13) [employer] Test [code = PREVNAR >= 65 of Med icine (PCV13)] Future Scheduled FLU VACCINE > 6 MONTHS [employer] [facility] [code = FLU VACCINE > 6 of M edicine MONTHS] Future Scheduled FALL SCREEN [code = [employer] [facility] FALL SCREEN] of Medicine Future Scheduled COLON CANCER SCREENING: [facility] Test COLONOSCOPY [code = of Medic ine COLON CANCER SCREENING: COLONOSCOPY] Future Scheduled MAMMOGRAM ANNUAL [code [employer] [facility] = MAMMOGRAM ANNUAL] of Medic ine Future Scheduled TETANUS SHOT (ADULT) [facility] [facility] [code = TETANUS SHOT of Medi cine (ADULT)] Future Scheduled BMI FOLLOW UP PLAN [employer] [facility] [code = BMI FOLLOW UP of Med icine PLAN] Future Scheduled HEPATITIS C SCREENING [employer] [facility] [code = HEPATITIS C of Medic ine SCREENING] Future Scheduled OSTEOPOROSIS SCREENING [employer] [facility] [code = OSTEOPOROSIS of Medi cine SCREENING] Future Scheduled PNEUMOVAX >=65 (PPSV23) [facility] Test [code = PNEUMOVAX >=65 of Me dicine (PPSV23)] Future Scheduled FLU VACCINE > 6 MONTHS [facility] Test [code = FLU VACCINE > 6 of M edicine MONTHS] Future Scheduled FALL SCREEN [code = [employer] [facility] FALL SCREEN] of Medicine Future Scheduled COMPREHENSIVE METABOLIC Ordered: [facility] Test PANEL [code = 48451-7] 10/04/2019 of Me dicine Future Scheduled CBC W/AUTO DIFF WITH Ordered: [facility] Test PLATELETS [code = 10/04/2019 of Medicin e 78012-5] Future Scheduled COLON CANCER SCREENING: [facility] Test COLONOSCOPY [code = of Medic ine COLON CANCER SCREENING: COLONOSCOPY] Future Scheduled VITAMIN B12 [code = Ordered: [facility] Test 2132-9] 10/04/2019 of Medicine Future Scheduled MAMMOGRAM ANNUAL [code [facility] Test = MAMMOGRAM ANNUAL] of Medic ine Future Scheduled TETANUS SHOT (ADULT) [facility] [facility] [code = TETANUS SHOT of Medi cine (ADULT)] Future Scheduled BMI FOLLOW UP PLAN [employer] [facility] [code = BMI FOLLOW UP of Med icine PLAN] Future Scheduled HEPATITIS C SCREENING [employer] [facility] [code = HEPATITIS C of Medic ine SCREENING] Future Scheduled OSTEOPOROSIS SCREENING [employer] [facility] [code = OSTEOPOROSIS of Medi cine SCREENING] Future Scheduled PNEUMOVAX >=65 (PPSV23) [facility] Test [code = PNEUMOVAX >=65 of Me dicine (PPSV23)] Future Scheduled FLU VACCINE > 6 MONTHS [facility] Test [code = FLU VACCINE > 6 of M edicine MONTHS] Future Scheduled FALL SCREEN [code = [employer] [facility] FALL SCREEN] of Medicine Future Scheduled PROTIME-INR [code = Ordered: [facility] [employer] [facility] 5902-2] 10/04/2019 of Medicine Future Scheduled CULTURE, Ordered: [facility] URINE/SENSITIVITY ON 10/04/2019 of Medi cine ALL [code = 73636-8] Future Scheduled COLON CANCER SCREENING: [employer] [facility] COLONOSCOPY [code = of Medic ine COLON CANCER SCREENING: COLONOSCOPY] Future Scheduled MAMMOGRAM ANNUAL [code [employer] [facility] = MAMMOGRAM ANNUAL] of Medic ine Future Scheduled TETANUS SHOT (ADULT) [facility] [employer] [facility] [code = TETANUS SHOT of Medi cine (ADULT)] Future Scheduled COLON CANCER SCREENING: [facility] Test COLONOSCOPY [code = of Medic ine COLON CANCER SCREENING: COLONOSCOPY] Future Scheduled MAMMOGRAM ANNUAL [code [employer] [facility] = MAMMOGRAM ANNUAL] of Medic ine Future Scheduled TETANUS SHOT (ADULT) [facility] [employer] [facility] [code = TETANUS SHOT of Medi cine (ADULT)] Future Scheduled BMI FOLLOW UP PLAN [employer] [facility] [code = BMI FOLLOW UP of Med icine PLAN] Future Scheduled HEPATITIS C SCREENING [employer] [facility] [code = HEPATITIS C of Medic ine SCREENING] Future Scheduled BMI FOLLOW UP PLAN [employer] [facility] [code = BMI FOLLOW UP of Med icine PLAN] Future Scheduled OSTEOPOROSIS SCREENING [employer] [facility] [code = OSTEOPOROSIS of Medi cine SCREENING] Future Scheduled PNEUMOVAX >=65 (PPSV23) [facility] Test [code = PNEUMOVAX >=65 of Me dicine (PPSV23)] Future Scheduled FLU VACCINE > 6 MONTHS [employer] [facility] [code = FLU VACCINE > 6 of M edicine MONTHS] Future Scheduled FALL SCREEN [code = [employer] [facility] FALL SCREEN] of Medicine Future Scheduled HEPATITIS C SCREENING [employer] [facility] [code = HEPATITIS C of Medic ine SCREENING] Future Scheduled FALL SCREEN [code = [employer] [facility] FALL SCREEN] of Medicine Future Scheduled OSTEOPOROSIS SCREENING [employer] [facility] [code = OSTEOPOROSIS of Medi cine SCREENING] Future Scheduled PNEUMOVAX >=65 (PPSV23) [facility] Test [code = PNEUMOVAX >=65 of Me dicine (PPSV23)] Future Scheduled COLON CANCER SCREENING: [facility] [employer] Test COLONOSCOPY [code = of Medic ine COLON CANCER SCREENING: COLONOSCOPY] Future Scheduled MAMMOGRAM ANNUAL [code [employer] [facility] = MAMMOGRAM ANNUAL] of Medic ine Future Scheduled TETANUS SHOT (ADULT) [facility] [facility] [code = TETANUS SHOT of Medi cine (ADULT)] Future Scheduled BMI FOLLOW UP PLAN [employer] [facility] [code = BMI FOLLOW UP of Med icine PLAN] Future Scheduled HEPATITIS C SCREENING [employer] [facility] [code = HEPATITIS C of Medic ine SCREENING] Future Scheduled OSTEOPOROSIS SCREENING [employer] [facility] [code = OSTEOPOROSIS of Medi cine SCREENING] Future Scheduled PNEUMOVAX >=65 (PPSV23) [facility] Test [code = PNEUMOVAX >=65 of Me dicine (PPSV23)] Future Scheduled FLU VACCINE > 6 MONTHS [employer] [facility] [code = FLU VACCINE > 6 of M edicine MONTHS] Future Scheduled FALL SCREEN [code = [employer] [facility] FALL SCREEN] of Medicine Future Scheduled PREVNAR >= 65 (PCV13) [employer] [facility] [code = PREVNAR >= 65 of Med icine (PCV13)] Future Scheduled FLU VACCINE > 6 MONTHS [employer] [facility] [code = FLU VACCINE > 6 of M edicine MONTHS] Future Scheduled CBC W/AUTO DIFF WITH Ordered: [facility] Test PLATELETS [code = 02/28/2020 of Medicin e 86882-1] Future Scheduled COMPREHENSIVE METABOLIC Ordered: [facility] Test PANEL [code = 10102-3] 02/28/2020 of Me dicine Future Scheduled MAGNESIUM [code = Ordered: [facility] Test 14945-4] 02/28/2020 of Medicine Future Scheduled TSH [code = 81420-9] Ordered: [facility] Test 02/28/2020 of Medicine Future Scheduled COLON CANCER SCREENING: [facility] Test COLONOSCOPY [code = of Medic ine COLON CANCER SCREENING: COLONOSCOPY] Future Scheduled MAMMOGRAM ANNUAL [code [facility] Test = MAMMOGRAM ANNUAL] of Medic ine Future Scheduled TETANUS SHOT (ADULT) [facility] Test [code = TETANUS SHOT of Medi cine (ADULT)] Future Scheduled BMI FOLLOW UP PLAN [facility] [code = BMI FOLLOW UP of Med icine PLAN] Future Scheduled HEPATITIS C SCREENING [employer] [facility] [code = HEPATITIS C of Medic ine SCREENING] Future Scheduled ZOSTER VACCINE (1 of 2) [facility] Test [code = ZOSTER VACCINE of Me dicine (1 of 2)] Future Scheduled OSTEOPOROSIS SCREENING [facility] Test [code = OSTEOPOROSIS of Medi cine SCREENING] Future Scheduled PNEUMOVAX >=65 (PPSV23) [facility] Test [code = PNEUMOVAX >=65 of Me dicine (PPSV23)] Future Scheduled FLU VACCINE > 6 MONTHS [facility] Test [code = FLU VACCINE > 6 of M edicine MONTHS] Future Scheduled FALL SCREEN [code = [employer] [facility] FALL SCREEN] of Medicine Future Scheduled COLON CANCER SCREENING: [facility] Test COLONOSCOPY [code = of Medic ine COLON CANCER SCREENING: COLONOSCOPY] Future Scheduled MAMMOGRAM ANNUAL [code [employer] [facility] = MAMMOGRAM ANNUAL] of Medic ine Future Scheduled TETANUS SHOT (ADULT) [facility] [employer] [facility] [code = TETANUS SHOT of Medi cine (ADULT)] Future Scheduled BMI FOLLOW UP PLAN [employer] [facility] [code = BMI FOLLOW UP of Med icine PLAN] Future Scheduled HEPATITIS C SCREENING [employer] [facility] [code = HEPATITIS C of Medic ine SCREENING] Future Scheduled ZOSTER VACCINE (1 of 2) [employer] [facility] [code = ZOSTER VACCINE of Me dicine (1 of 2)] Future Scheduled OSTEOPOROSIS SCREENING [employer] [facility] [code = OSTEOPOROSIS of Medi cine SCREENING] Future Scheduled PNEUMOVAX >=65 (PPSV23) [facility] Test [code = PNEUMOVAX >=65 of Me dicine (PPSV23)] Future Scheduled FLU VACCINE > 6 MONTHS [employer] [facility] [code = FLU VACCINE > 6 of M edicine MONTHS] Future Scheduled MEDICARE IPPE (WELCOME [employer] [facility] TO MEDICARE) [code = of Medi cine MEDICARE IPPE (WELCOME TO MEDICARE)] Future Scheduled FALL SCREEN [code = [employer] [facility] FALL SCREEN] of Medicine Future Scheduled CBC W/AUTO DIFF WITH Ordered: [facility] [employer] [facility] PLATELETS [code = 05/15/2020 of Medicin e 98942-2] Future Scheduled BASIC METABOLIC PANEL Ordered: [employer] [facility] [code = 47913-7] 05/15/2020 of Medicine Future Scheduled VITAMIN B12 [code = Ordered: [employer] [facility] 2132-9] 05/15/2020 of Medicine Future Scheduled COLON CANCER SCREENING: [facility] Test COLONOSCOPY [code = of Medic ine COLON CANCER SCREENING: COLONOSCOPY] Future Scheduled MAMMOGRAM ANNUAL [code [employer] [facility] = MAMMOGRAM ANNUAL] of Medic ine Future Scheduled TETANUS SHOT (ADULT) [facility] [employer] [facility] [code = TETANUS SHOT of Medi cine (ADULT)] Future Scheduled BMI FOLLOW UP PLAN [employer] [facility] [code = BMI FOLLOW UP of Med icine PLAN] Future Scheduled HEPATITIS C SCREENING [employer] [facility] [code = HEPATITIS C of Medic ine SCREENING] Future Scheduled ZOSTER VACCINE (1 of 2) [facility] Test [code = ZOSTER VACCINE of Me dicine (1 of 2)] Future Scheduled OSTEOPOROSIS SCREENING [employer] [facility] [code = OSTEOPOROSIS of Medi cine SCREENING] Future Scheduled PNEUMOVAX >=65 (PPSV23) [employer] Test [code = PNEUMOVAX >=65 of Me dicine (PPSV23)] Future Scheduled FLU VACCINE > 6 MONTHS [employer] [facility] [code = FLU VACCINE > 6 of M edicine MONTHS] Future Scheduled MEDICARE IPPE (WELCOME [employer] [facility] TO MEDICARE) [code = of Medi cine MEDICARE IPPE (WELCOME TO MEDICARE)] Future Scheduled FALL SCREEN [code = [employer] [facility] FALL SCREEN] of Medicine Future Scheduled COLON CANCER SCREENING: [facility] Test COLONOSCOPY [code = of Medic ine COLON CANCER SCREENING: COLONOSCOPY] Future Scheduled MAMMOGRAM ANNUAL [code [employer] [facility] = MAMMOGRAM ANNUAL] of Medic ine Future Scheduled TETANUS SHOT (ADULT) [facility] [employer] [facility] [code = TETANUS SHOT of Medi cine (ADULT)] Future Scheduled BMI FOLLOW UP PLAN [employer] [facility] [code = BMI FOLLOW UP of Med icine PLAN] Future Scheduled HEPATITIS C SCREENING [employer] [facility] [code = HEPATITIS C of Medic ine SCREENING] Future Scheduled ZOSTER VACCINE (1 of 2) [facility] Test [code = ZOSTER VACCINE of Me dicine (1 of 2)] Future Scheduled OSTEOPOROSIS SCREENING [employer] [facility] [code = OSTEOPOROSIS of Medi cine SCREENING] Future Scheduled PNEUMOVAX >=65 (PPSV23) [facility] Test [code = PNEUMOVAX >=65 of Me dicine (PPSV23)] Future Scheduled FLU VACCINE > 6 MONTHS [employer] [facility] [code = FLU VACCINE > 6 of M edicine MONTHS] Future Scheduled MEDICARE IPPE (WELCOME [employer] [facility] TO MEDICARE) [code = of Medi cine MEDICARE IPPE (WELCOME TO MEDICARE)] Future Scheduled FALL SCREEN [code = [employer] [facility] FALL SCREEN] of Medicine Future Scheduled COLON CANCER SCREENING: [facility] Test COLONOSCOPY [code = of Medic ine COLON CANCER SCREENING: COLONOSCOPY] Future Scheduled MAMMOGRAM ANNUAL [code [employer] [facility] = MAMMOGRAM ANNUAL] of Medic ine Future Scheduled TETANUS SHOT (ADULT) [facility] [employer] [facility] [code = TETANUS SHOT of Medi cine (ADULT)] Future Scheduled BMI FOLLOW UP PLAN [employer] [facility] [code = BMI FOLLOW UP of Med icine PLAN] Future Scheduled HEPATITIS C SCREENING [employer] [facility] [code = HEPATITIS C of Medic ine SCREENING] Future Scheduled ZOSTER VACCINE (1 of 2) [facility] Test [code = ZOSTER VACCINE of Me dicine (1 of 2)] Future Scheduled OSTEOPOROSIS SCREENING [employer] Test [code = OSTEOPOROSIS of Medi cine SCREENING] Future Scheduled PNEUMOVAX >=65 (PPSV23) [facility] Test [code = PNEUMOVAX >=65 of Me dicine (PPSV23)] Future Scheduled FLU VACCINE > 6 MONTHS [employer] [facility] [code = FLU VACCINE > 6 of M edicine MONTHS] Future Scheduled MEDICARE IPPE (WELCOME [employer] TO MEDICARE) [code = of Medi cine MEDICARE IPPE (WELCOME TO MEDICARE)] Future Scheduled FALL SCREEN [code = [employer] FALL SCREEN] of Medicine Future Scheduled CBC W/AUTO DIFF WITH Ordered: [facility] Test PLATELETS [code = 07/27/2020 of Medicin e 35634-0] Future Scheduled COMPREHENSIVE METABOLIC Ordered: [facility] Test PANEL [code = 08075-8] 07/27/2020 of Me dicine Future Scheduled MAGNESIUM [code = Ordered: [facility] Test 03220-0] 07/27/2020 of Medicine Future Scheduled COLON CANCER SCREENING: [facility] Test COLONOSCOPY [code = of Medic ine COLON CANCER SCREENING: COLONOSCOPY] Future Scheduled COVID-19 Vaccine [facility] Test Evaluation [code = of Medici ne COVID-19 Vaccine Evaluation] Future Scheduled TETANUS SHOT (ADULT) [facility] Test [code = TETANUS SHOT of Medi cine (ADULT)] Future Scheduled HEPATITIS C SCREENING [employer] [facility] [code = HEPATITIS C of Medic ine SCREENING] Future Scheduled ZOSTER VACCINE (1 of 2) [facility] [employer] Test [code = ZOSTER VACCINE of Me dicine (1 of 2)] Future Scheduled OSTEOPOROSIS SCREENING [employer] [code = OSTEOPOROSIS of Medi cine SCREENING] Future Scheduled PNEUMOVAX >=65 (PPSV23) [facility] [employer] Test [code = PNEUMOVAX >=65 of Me dicine (PPSV23)] Future Scheduled FLU VACCINE > 6 MONTHS [employer] [facility] [code = FLU VACCINE > 6 of M edicine MONTHS] Future Scheduled MEDICARE IPPE (WELCOME [employer] TO MEDICARE) [code = of Medi cine MEDICARE IPPE (WELCOME TO MEDICARE)] Future Scheduled FALL SCREEN [code = [employer] FALL SCREEN] of Medicine Future Scheduled MAMMOGRAM ANNUAL [code [facility] Test = MAMMOGRAM ANNUAL] of Medic ine Future Scheduled COLON CANCER SCREENING: [facility] Test COLONOSCOPY [code = of Medic ine COLON CANCER SCREENING: COLONOSCOPY] Future Scheduled COVID-19 Vaccine [facility] [employer] Test Evaluation [code = of Medici ne COVID-19 Vaccine Evaluation] Future Scheduled TETANUS SHOT (ADULT) [employer] Test [code = TETANUS SHOT of Medi cine (ADULT)] Future Scheduled HEPATITIS C SCREENING [employer] Test [code = HEPATITIS C of Medic ine SCREENING] Future Scheduled ZOSTER VACCINE (1 of 2) [facility] [employer] Test [code = ZOSTER VACCINE of Me dicine (1 of 2)] Future Scheduled OSTEOPOROSIS SCREENING [employer] [code = OSTEOPOROSIS of Medi cine SCREENING] Future Scheduled PNEUMOVAX >=65 (PPSV23) [facility] [employer] Test [code = PNEUMOVAX >=65 of Me dicine (PPSV23)] Future Scheduled FLU VACCINE > 6 MONTHS [employer] [facility] [code = FLU VACCINE > 6 of M edicine MONTHS] Future Scheduled MEDICARE IPPE (WELCOME [employer] TO MEDICARE) [code = of Medi cine MEDICARE IPPE (WELCOME TO MEDICARE)] Future Scheduled FALL SCREEN [code = [employer] FALL SCREEN] of Medicine Future Scheduled MAMMOGRAM ANNUAL [code [facility] Test = MAMMOGRAM ANNUAL] of Medic ine Future Scheduled COLON CANCER SCREENING: [facility] Test COLONOSCOPY [code = of Medic ine COLON CANCER SCREENING: COLONOSCOPY] Future Scheduled COVID-19 Vaccine [facility] Test Evaluation [code = of Medici ne COVID-19 Vaccine Evaluation] Future Scheduled TETANUS SHOT (ADULT) [employer] Test [code = TETANUS SHOT of Medi cine (ADULT)] Future Scheduled HEPATITIS C SCREENING [employer] Test [code = HEPATITIS C of Medic ine SCREENING] Future Scheduled ZOSTER VACCINE (1 of 2) [facility] [employer] Test [code = ZOSTER VACCINE of Me dicine (1 of 2)] Future Scheduled OSTEOPOROSIS SCREENING [employer] [code = OSTEOPOROSIS of Medi cine SCREENING] Future Scheduled PNEUMOVAX >=65 (PPSV23) [facility] [employer] Test [code = PNEUMOVAX >=65 of Me dicine (PPSV23)] Future Scheduled MEDICARE IPPE (WELCOME [employer] TO MEDICARE) [code = of Medi cine MEDICARE IPPE (WELCOME TO MEDICARE)] Future Scheduled FALL SCREEN [code = [employer] FALL SCREEN] of Medicine Future Scheduled MAMMOGRAM ANNUAL [code [facility] Test = MAMMOGRAM ANNUAL] of Medic ine Future Scheduled CT CHEST ABDOMEN PELVIS 1 Occurrences [employer] Test W CONTRAST [code = [place] [address]-4] 10/26/2020 until 10/26/2021 Future Scheduled US RENAL BILATERAL 1 Occurrences [facility] Test [code = 50159] starting of Medicine 05/15/2020 until 05/15/[address] CHEST ABDOMEN PELVIS 1 Occurrences [facility] Test W CONTRAST [code = [place] [address]-9] 04/27/2020 until 04/27/[address] CHEST ABDOMEN PELVIS 1 Occurrences [facility] Test W CONTRAST [code = [place] [address]-5] 02/28/2020 until 02/27/2021 Encounters Start End Encounter Admission Attending Care Care Encounter Source Date/Time Date/Time Type Type Clinicians Facility Department ID 2021-04-23 Inpatient [address]A [facility] Surgery [id number] [facility] 22:51:01 [place] 2021-04-23 Outpatient [address]IONA [facility] Surgery [id number] [facility] 21:51:43 [place] 2021-06-26 2021-06-26 Outpatient ALEC FOSS [facility] [id number] Univers 14:30:00 14:30:00 [id number] [facility] 2021-06-26 2021-06-26 Outpatient ALEC MOSER [facility] [id number] Univers 14:30:00 14:30:00 [facility] 2021-05-07 2021-05-07 Outpatient [facility] [id number] [facility] 15:09:13 23:59:00 Colleg e of Medicin e 2021-05-07 2021-05-07 Office OMAR YEN [facility] 1.2.840.114 [id number] [facility] 14:13:49 16:00:26 Visit Seymour 350.1.13.21 Co llege 0.2.7.2.686 [id number] Medi khushi 504 e 2021-05-03 2021-05-03 Outpatient BIRD CAMPUZANO [facility] [id number] SLE 10:46:33 23:59:00 2021-05-03 2021-05-03 Outpatient BIRD CAMPUZANO SLEJuanjose SLE [id number] [facility] 10:46:26 23:59:00 2021-03-19 2021-03-19 Outpatient [facility] [id number] [facility] 14:16:56 23:59:00 Colleg e of Medicin e 2021-01-29 2021-01-29 Outpatient [facility] [id number] [facility] 13:53:55 23:59:00 Colleg e of Medicin e 2021-01-29 2021-01-29 Office Omar Yen [facility] 1.2.840.114 [id number] [facility] 12:18:28 14:06:37 Visit Eyad CanalesNair 350.1.13.21 Co llege 0.2.7.2.686 of 250.4739828 Medi khushi 530 e 2021-01-29 2021-01-29 Office GUILLERMINA Henriquez 1.2.840.114 [id number] [facility] 13:10:51 13:25:51 Visit Dick P AMBULATOR 350.1.13.21 College Y 0.2.7.2.686 of 100.1338759 Medi khushi 300 e 2021-01-18 2021-01-18 Outpatient BIRD YEN SLE SLE [id number] SLE 00:00:00 00:00:00 2021-01-18 2021-01-18 Outpatient BIRD CAMPUZANO SLE SLE [id number] SLE 00:00:00 00:00:00 2020-12-18 2020-12-18 Office GUILLERMINA Poole 1.2.840.[id number] [place] [address] 14:58:39 15:08:39 Visit Christopher AMBULATOR 350.1.13.21 College P Y 0.2.7.2.686 of 694.2628985 Medi khushi 300 e 2020-12-18 2020-12-18 Outpatient BIRD CAMPUZANO SLEJuanjose SLEH [id number] SLEH 00:00:00 00:00:00 2020-12-18 2020-12-18 Outpatient BIRD YEN [facility]H [id number] SLEH 00:00:00 00:00:00 2020-12-18 2020-12-18 Outpatient EL BIRD YEN [facility] SLE [id number] SLE 00:00:00 00:00:00 2020-11-15 2020-11-15 Office GUILLERMINA Poole 1.2.840.114 [id number] [facility] 10:12:07 10:22:07 Visit Christopher AMBULATOR 350.1.13.21 College P Y 0.2.7.2.686 of 726.9815601 Medi khushi 300 e 2020-10-26 2020-10-26 Office JovaniOmar de los santos [facility] 1.2.840.114 [id number] [facility] 11:30:32 13:39:35 Visit Eyad Chadwickr 350.1.13.21 Co llege 0.2.7.2.686 of 274.5674315 Medi khushi 530 e 2020-10-05 2020-10-05 Orders Doctor MANNY 1.2.840.114 [id number] Univers 00:00:00 00:00:00 Only Unassigned, JORGE LUIS 350.1.13.10 ity [facility] 4.2.7.2.686 Jan as [phone] Medi mariama 009 Branch 2020-10-05 2020-10-05 Orders Doctor MANNY 1.2.840.114 [id number] 00:00:00 00:00:00 Only Unassigned, JORGE LUIS 350.1.13.10 [facility] 4.2.7.2.686 [id number] 009 2020-10-04 2020-10-04 Office GUILLERMINA Henriquez 1.2.840.114 [id number] [facility] 10:09:01 10:24:01 Visit Dick P AMBULATOR 350.1.13.21 College Y 0.2.7.2.686 of 982.9801662 Medi khushi 300 e 2020-10-04 2020-10-04 Office GUILLERMINA Poole 1.2.840.114 [id number] [facility] 10:08:44 10:18:44 Visit Christopher AMBULATOR 350.1.13.21 College P Y 0.2.7.2.686 of 680.4922684 Medi khushi 300 e 2020-10-04 2020-10-04 Outpatient EL BIRD YEN SLE SLE [id number] SLEH 00:00:00 00:00:00 2020-10-04 2020-10-04 Outpatient BIRD YEN SLEJuanjose SLEH [id number] SLEH 00:00:00 00:00:00 2020-09-07 2020-09-07 Office GUILLERMINA Poole 1.2.840.[id number] [place] [address] 14:53:39 15:03:39 Visit Christopher AMBULATOR 350.1.13.21 College P Y 0.2.7.2.686 of 547.7358377 [facility] khushi 300 e 2020-08-03 2020-08-03 Production Control Specialist 2, Adc Lab [facility] 1.2.840.114 [id number] [facility] 13:07:52 13:22:52 Visit Alec Foss 350.1.13.10 breana [facility] 4.[place].7.[place] [id number] Mn dical [address] 2020-08-03 2020-08-03 Production Control Specialist 2, Adc Lab [facility] 1.2.840.114 [id number] 13:07:52 13:22:52 Visit [place] 350.1.13.10 [place] 4.2.7.2.686 Professio [id number] [address] 2020-08-03 2020-08-03 Outpatient R [facility] [id number] Univers 13:00:00 13:00:00 [id number] [facility] 2020-08-03 2020-08-03 Outpatient R ALEC FOSS [facility] [id number] Univers 13:00:00 13:00:00 [facility] 2020-08-02 2020-08-02 Outpatient R [facility] [id number] Univers 13:00:00 13:00:00 [id number] [facility] 2020-08-02 2020-08-02 Office GUILLERMINA Henriquez 1.2.840.[id number] [place] [address] 09:42:31 09:57:31 Visit Dick P AMBULATOR 350.1.13.21 College Y 0.2.7.2.686 of 685.6295054 [facility] 300 e 2020-07-27 2020-07-27 Office Omar Yen [facility] 1.2.840.114 [id number] [facility] 11:15:40 12:55:05 Visit Eyad Chadwickr 350.1.13.21 Co llege 0.2.7.2.686 of 937.0535151 [facility] 530 e 2020-07-19 2020-07-19 [facility] Alec Foss [facility] 1.2.840.114 [id number] Univers 10:46:59 23:59:00 Encounter [place] 350.1.13.10 ity of [place] 4.2.7.2.686 [facility] [phone] [facility] 8[address] [place] 2020-07-19 2020-07-19 [facility] Alec Foss [facility] 1.2.840.114 [id number] 10:46:59 23:59:00 Encounter [place] 350.1.13.10 [place] 4.2.7.2.686 [place] [id number] 806 2020-07-19 2020-07-19 Outpatient ALEC FOSS [facility] [id number] Univers 14:00:00 14:00:00 [id number] ity [facility] 2020-07-19 2020-07-19 [facility] Alec Foss [facility] 1.2.840.114 [id number] [facility] 10:45:33 10:45:33 Encounter [place] 350.1.13.10 ity of [place] 4.2.7.2.686 [facility] [phone] [facility] [address] [place] 2020-07-19 2020-07-19 [facility] Alec Foss [facility] 1.2.840.114 [id number] 10:45:33 10:45:33 Encounter [place] 350.1.13.10 [place] 4.2.7.2.686 [place] [id number] 800 2020-07-19 2020-07-19 [facility] Alec Foss [facility] 1.2.840.114 [id number] Univers 10:45:01 10:45:01 Encounter [place] 350.1.13.10 it[place]7.2.[place] [id number] [facility] 806 [place] 2020-07-19 2020-07-19 Hospital Alec Foss [facility] 1.2.840.114 [id number] 10:45:01 10:45:01 Encounter [place] 350.1.13.10 [place] 4.2.7.2.686 [place] [id number] 806 2020-07-19 2020-07-19 Outpatient R ALEC FOSS [facility] [id number] Univers 00:00:00 00:00:00 ity of [facility] 2020-07-19 2020-07-19 Orders Doctor BRYANT 1.2.840.114 [id number] Univers 00:00:00 00:00:00 Only Unassigned, JORGE LUIS 350.1.13.10 [facility] 4.2.7.2.686 Jan as [id number] [address] 2020-07-19 2020-07-19 Orders Doctor BRYANT 1.2.840.114 [id number] 00:00:00 00:00:00 Only Unassigned, JORGE LUIS 350.1.13.10 [facility] 4.2.7.2.686 [id number] 009 2020-07-17 2020-07-17 [facility] [id number] SLE 00:00:00 00:00:00 2020-07-17 2020-07-17 Outpatient EL [facility] [id number] SLE 00:00:00 00:00:00 2020-06-25 2020-06-25 Outpatient ALEC MOSER [facility] [id number] Univers 14:00:00 14:00:00 ity of [facility] 2020-06-25 2020-06-25 Orders Doctor MANNY Dey.2.840.114 [id number] Univers 00:00:00 00:00:00 Only Unassigned, JORGE LUIS 350.1.13.10 [facility] 4.2.7.2.686 Jan as [id number] [address] 2020-06-25 2020-06-25 Orders Doctor MANNY Bustos2.840.114 [id number] 00:00:00 00:00:00 Only Unassigned, JORGE LUIS 350.1.13.10 [facility] 4.2.7.2.686 [id number] 009 2020-06-07 2020-06-07 Office GUILLERMINA Henriquez 1.2.840.114 [id number] 08:15:55 08:30:55 Visit Dick P AMBULATOR 350.1.13.21 Y 0.2.7.2.686 [id number] 300 2020-06-07 2020-06-07 Office Fiona, GUILLERMINA 1.2.840.114 [id number] [facility] 08:15:55 08:30:55 Visit Dick P AMBULATOR 350.1.13.21 College Y 0.2.7.2.686 of 913.4365555 [facility] khushi 300 e 2020-05-15 2020-05-15 Office LAN Henriquez 1.2.840.114 [id number] 14:31:10 15:54:25 Visit Dick P AMBULATOR 350.1.13.21 Y 0.2.7.2.686 [id number] 300 2020-05-15 2020-05-15 Office Fiona, [facility] 1.2.840.[id number] [place] [address] 14:31:10 15:54:25 Visit Dick P AMBULATOR 350.1.13.21 College Y 0.2.7.2.686 of 902.4886213 [facility] khushi 300 e 2020-04-27 2020-04-27 Office Omar Yen [facility] 1.2.840.114 [id number] 14:24:21 15:32:04 Visit Edward Seymour 350.1.13.21 0.2.7.2.686 [id number] 530 2020-04-27 2020-04-27 Office Omar Yen [facility] 1.2.840.114 [id number] [facility] 14:24:21 15:32:04 Visit Edward Seymour 350.1.13.21 Co llege 0.2.7.2.686 of [id number] [facility] khushi 530 e 2020-04-25 2020-04-25 Outpatient BIRD YEN SLEJuanjose [id number] SLEH 00:00:00 00:00:00 2020-04-25 2020-04-25 Outpatient MILAN OLVERAN, BIRD SLEH [facility] [id number] SLEH 00:00:00 00:00:00 2020-04-05 2020-04-05 Outpatient YEN, BIRD SLEH [facility]H [id number] SLEH 00:00:00 00:00:00 2020-04-05 2020-04-05 Outpatient EL YEN, BIRD SLEH [facility]H [id number] SLEH 00:00:00 00:00:00 2020-03-27 2020-03-27 Outpatient YEN, MAURYMYA SLEH SLEH [id number] SLEH 00:00:00 00:00:00 2020-03-27 2020-03-27 Outpatient EL YENBIRD SLEH SLEH [id number] SLEH 00:00:00 00:00:00 2020-03-27 2020-03-27 Outpatient EL YEN, BIRD SLEH SLEH [id number] SLEH 00:00:00 00:00:00 2020-03-27 2020-03-27 Outpatient YEN, BIRD SLEH [facility]H [id number] SLEH 00:00:00 00:00:00 2020-02-28 2020-02-28 Office Omar Yen [facility] 1.2.840.114 [id number] 11:09:47 12:43:20 Visit Eyad Ahuja 350.1.13.21 0.2.7.2.686 [id number] 530 2020-02-28 2020-02-28 Office Omar Yen [facility] 1.2.840.114 [id number] [facility] 11:09:47 12:43:20 Visit Eyad Ahuja 350.1.13.21 Co llege 0.2.7.2.686 of 102.0148344 [facility] 530 e 2020-02-21 2020-02-21 Office GUILLERMINA Henriquez 1.2.840.114 [id number] 15:30:00 15:45:00 Visit Dick Grant AMBULATOR 350.1.13.21 Y 0.2.7.2.686 [id number] 300 2020-02-21 2020-02-21 Office Fiona LANSaul 1.2.840.114 [id number] [facility] 15:30:00 15:45:00 Visit Dick P AMBULATOR 350.1.13.21 College Y 0.2.7.2.686 of 244.8653033 Medi khushi 300 e 2020-01-27 2020-01-27 Outpatient EL SLEH SLEH [id number] SLEH 00:00:00 00:00:00 2020-01-17 2020-01-17 Office AlfredoAneudyNestorjamal Parker [facility] 1.2.840. 114 [id number] 08:19:54 08:49:54 Visit C-Arm, Pmr [employer] AMBULATOR 350.1.13. 21 Y 0.2.7.2.686 [id number] 800 2020-01-17 2020-01-17 Office Alfredo [address]al Parker [facility] 1.2.840. 114 [id number] [facility] 08:19:54 08:49:54 Visit C-Arm, Pmr [employer] AMBULATOR 350.1.13. 21 College Y 0.2.7.2.686 of 116.6084473 Medi khushi 800 e 2020-01-17 2020-01-17 Outpatient EL SLEH SLEH [id number] SLEH 00:00:00 00:00:00 2020-01-10 2020-01-10 Office Omar Yen [facility] 1.2.840.114 [id number] 09:17:20 10:09:32 Visit Edjanine Seymour 350.1.13.21 0.2.7.2.686 [id number] 530 2020-01-10 2020-01-10 Office Omar Yen [facility] 1.2.840.114 [id number] [facility] 09:17:20 10:09:32 Visit Edjanine Seymour 350.1.13.21 Co llege 0.2.7.2.686 of 475.8159603 Medi khushi 530 e 2020-01-06 2020-01-06 Ancillary 1.2.840.1 [id number] [facility] 15:34:38 19:30:50 Procedure 54020.1.1 Co llege 3.210.2.7 of .3.847486 Medici n .8 e 2020-01-06 2020-01-06 Office Giancarlo Doherty 1.2.840.2 [id number] [facility] 12:54:16 17:06:02 Visit 71932.1.1 Shanel ege 3.210.2.7 of .3.065434 Medici n .8 e 2020-01-06 2020-01-[address] [facility] 1.2.840.114 75 [id number] 12:54:16 15:16:58 Visit AMBULATOR 350.1.13.21 Y 0.2.7.2.686 [id number] 800 2020-01-06 2020-01-06 Telephone Omar Yen 1.2.840.9 [id number] [facility] 00:00:00 00:00:00 Edward 44532.1.1 Shanel ege 3.210.2.7 of .3.087562 Medici n .8 e 2020-01-06 2020-01-06 Abstract Giancarlo Doherty 1.2.840.2 [id number] [facility] 00:00:00 00:00:00 18040.1.1 Shanel ege 3.210.2.7 of .3.309812 Medici n .8 e 2020-01-06 2020-01-06 Abstract Giancarlo Doherty 1.2.840.1 [id number] [facility] 00:00:00 00:00:00 39131.1.1 Shanel ege 3.210.2.7 of .3.026050 Medici n .8 e 2020-01-06 2020-01-06 Travel 1.2.840.1 1.2.996.452 [id number] [facility] 00:00:00 00:00:00 70598.1.1 350.1.13.21 College 3.210.2.7 0.2.7.3.698 of .3.751552 084.8 Medici n .8 e 2020-01-06 2020-01-06 Telephone Fiona, 1.2.840.8 [id number] 760 [id number] [facility] 00:00:00 00:00:00 Dick P 53897.1.1 Shanel ege 3.210.2.7 of .3.536700 Medici n .8 e 2020-01-05 2020-01-05 Telephone Fiona, 1.2.840.9 [id number] 760 [id number] [facility] 00:00:00 00:00:00 Dick P 32385.1.1 Shanel ege 3.210.2.7 of .3.657612 Medici n .8 e 2020-01-05 2020-01-05 Orders Fiona, 1.2.840.7 [id number] [facility] 00:00:00 00:00:00 Only Dick P 35307.1.1 Shanel ege 3.210.2.7 of .3.532087 Medici n .8 e 2020-01-04 2020-01-04 Travel 1.2.840.1 1.2.680.329 [id number] [facility] 00:00:00 00:00:00 39348.1.1 350.1.13.21 College 3.210.2.7 0.2.7.3.698 of .3.595799 084.8 Medici n .8 e 2019-12-29 2019-12-29 Abstract Fiona, 1.2.840.6 [id number] [facility] 00:00:00 00:00:00 Dick P 63387.1.1 Shanel ege 3.210.2.7 of .3.264524 Medici n .8 e 2019-12-29 2019-12-29 Abstract Fiona, 1.2.840.2 [id number] [facility] 00:00:00 00:00:00 Dick P 61533.1.1 Shanel ege 3.210.2.7 of .3.047958 Medici n .8 e 2019-12-27 2019-12-27 Outpatient BIRD YEN [facility] [id number] SLE 00:00:00 00:00:00 2019-12-27 2019-12-27 Outpatient EL BIRD YEN [facility] [id number] [facility] 00:00:00 00:00:00 2019-12-23 2019-12-23 Telephone Omar Yen 1.2.840.1 [id number] [facility] 00:00:00 00:00:00 Edward 60728.1.1 Shanel ege 3.210.2.7 of .3.815872 Medici n .8 e 2019-12-20 2019-12-20 Hospital 13, Bcc 1.2.840.3 [id number] [facility] 09:51:46 23:59:00 Encounter Chair 43420.1.1 Co llege 3.210.2.7 of .3.187442 Medici n .8 e 2019-12-20 2019-12-20 Office Omar Yen 1.2.840.6 [id number] [facility] 08:33:43 10:00:25 Visit Edward 70793.1.1 Shanel ege 3.210.2.7 of .3.675357 Medici n .8 e 2019-12-20 2019-12-20 Travel 1.2.840.1 1.2.833.776 [id number] [id number] [facility] 00:00:00 00:00:00 82074.1.1 350.1.13.21 College 3.210.2.7 0.2.7.3.698 of .3.759310 084.8 Medici n .8 e 2019-12-20 2019-12-20 Orders Omar Yen 1.2.840.6 [id number] [facility] 00:00:00 00:00:00 Only Edward 20019.1.1 Shanel ege 3.210.2.7 of .3.142101 Medici n .8 e 2019-12-19 2019-12-19 Ancillary 1.2.840.2 [id number] [facility] 07:37:46 10:52:13 Procedure 47861.1.1 Co llege 3.210.2.7 of .3.932338 Medici n .8 e 2019-12-13 2019-12-19 Office Rustadan, 1.2.840.6 [id number] [facility] 13:53:26 09:40:45 Visit Shun 52776.1.1 Shanel ege 3.210.2.7 of .3.743691 Medici n .8 e 2019-12-19 2019-12-19 Ancillary 1.2.840.3 [id number] [id number] [facility] 07:37:33 09:27:36 Procedure 21652.1.1 Co llege 3.210.2.7 of .3.998814 Medici n .8 e 2019-12-19 2019-12-19 Travel 1.2.840.1 1.2.355.975 1411 [id number] [facility] 00:00:00 00:00:00 46411.1.1 350.1.13.21 College 3.210.2.7 0.2.7.3.698 of .3.049413 084.8 Medici n .8 e 2019-12-16 2019-12-16 Telephone Wise, 1.2.840.0 [id number] [facility] 00:00:00 00:00:00 Manny Leos 21818.1.1 Co llege 3.210.2.7 of .3.263539 Medici n .8 e 2019-12-13 2019-12-13 Office Uzma, BCM 1.2.700.356 [id number] [id number] 13:53:26 14:53:26 Visit Shun AMBULATOR 350.1.13.21 Y 0.2.7.2.686 [id number] 800 2019-12-13 2019-12-13 Office Wise, BCM 1.2.840.114 [id number] 10:03:47 13:58:12 Visit Manny Leos AMBULATOR 350.1.13.21 Y 0.2.7.2.686 [id number] 2019-12-13 2019-12-13 Office Wise, 1.2.840.8 [id number] [facility] 10:03:47 13:58:12 Visit Manny Leos 62200.1.1 Co llege 3.210.2.7 of .3.227652 Medici n .8 e 2019-12-13 2019-12-13 Travel 1.2.840.1 1.2.355.523 0044 [id number] [facility] 00:00:00 00:00:00 99416.1.1 350.1.13.21 College 3.210.2.7 0.2.7.3.698 of .3.925646 084.8 Medici n .8 e 2019-12-08 2019-12-08 Telephone Wise, 1.2.840.5 [id number] [facility] 00:00:00 00:00:00 Manny Deric 02520.1.1 Co llege 3.210.2.7 of .3.763659 Medici n .8 e 2019-12-06 2019-12-06 [facility] 13, [facility] 1.2.840.6 [id number] [facility] 10:00:00 23:59:00 Encounter Chair 77563.1.1 Co llege 3.210.2.7 of .3.076394 Medici n .8 e 2019-12-06 2019-12-06 Office Omar Yen 1.2.840.3 [id number] [facility] 09:04:35 13:25:56 Visit Edjanine 65320.1.1 Shanel ege 3.210.2.7 of .3.553149 Medici n .8 e 2019-12-06 2019-12-06 Office Omar Yen [facility] 1.2.840.114 [id number] [id number] 09:04:35 09:37:30 Visit Edjanine Seymour 350.1.13.21 0.2.7.2.686 [id number] 530 2019-12-06 2019-12-06 Travel 1.2.840.1 1.2.123.789 [id number] [id number] [facility] 00:00:00 00:00:00 47802.1.1 350.1.13.21 College 3.210.2.7 0.2.7.3.698 of .3.293169 084.8 Medici n .8 e 2019-12-02 2019-12-02 Telephone Fiona, 1.2.840.4 [id number] [facility] 00:00:00 00:00:00 Dick P 19362.1.1 Shanel ege 3.210.2.7 of .3.908339 Medici n .8 e 2019-11-29 2019-11-29 Telephone Fiona, 1.2.840.9 [id number] [facility] 00:00:00 00:00:00 Dick P 57911.1.1 Shanel ege 3.210.2.7 of .3.127067 Medici n .8 e 2019-11-29 2019-11-29 Telephone Fiona, 1.2.840.2 [id number] [facility] 00:00:00 00:00:00 Dick P 18069.1.1 Shanel ege 3.210.2.7 of .3.129591 Medici n .8 e 2019-11-28 2019-11-28 Telephone Fiona, 1.2.840.3 [id number] [facility] 00:00:00 00:00:00 Dick P 15689.1.1 Shanel ege 3.210.2.7 of .3.414470 Medici n .8 e 2019-11-22 2019-11-22 Hospital 13, Bcc 1.2.840.9 [id number] [facility] 10:00:00 23:59:00 Encounter Chair 10052.1.1 Co llege 3.210.2.7 of .3.182727 Medici n .8 e 2019-11-22 2019-11-22 Office Omar Yen 1.2.840.3 [id number] [facility] 08:40:10 11:15:19 Visit Edward 25775.1.1 Shanel ege 3.210.2.7 of .3.745087 Medici n .8 e 2019-11-22 2019-11-22 Office Omar Yen [facility] 1.2.840.114 [id number] 08:40:10 09:00:10 Visit Eyad Ahuja 350.1.13.21 0.2.7.2.686 [id number] 530 2019-11-22 2019-11-22 Travel 1.2.840.1 1.2.825.520 [id number] [facility] 00:00:00 00:00:00 65932.1.1 350.1.13.21 College 3.210.2.7 0.2.7.3.698 of .3.642526 084.8 Medici n .8 e 2019-11-08 2019-11-08 Hospital 13, Bcc 1.2.840.7 [id number] [facility] 10:00:00 23:59:00 Encounter Chair 38703.1.1 Co llege 3.210.2.7 of .3.186131 Medici n .8 e 2019-11-08 2019-11-08 Office Bird Yen [facility] 1.2.840.114 [id number] 09:01:33 10:15:07 Visit E Seymour 350.1.13.21 0.2.7.2.686 [id number] 530 2019-11-08 2019-11-08 Office Omar Yen 1.2.840.3 [id number] [facility] 09:01:33 10:15:07 Visit Edward 91103.1.1 Shanel ege 3.210.2.7 of .3.311385 Medici n .8 e 2019-11-08 2019-11-08 Travel 1.2.840.1 1.2.575.007 [id number] [facility] 00:00:00 00:00:00 31053.1.1 350.1.13.21 College 3.210.2.7 0.2.7.3.698 of .3.593571 084.8 Medici n .8 e 2019-11-01 2019-11-01 Outpatient [facility] [id number] 3-2 [facility] 00:00:00 00:00:00 [id number] 2019-11-01 2019-11-01 Orders Alayon, 1.2.840.1 [id number] [facility] 00:00:00 00:00:00 Only [facility] M 04651.1.1 Co llege 3.210.2.7 of .3.565396 Medici n .8 e 2019-10-31 2019-10-31 Orders Rychlec, 1.2.840.4 [id number] [facility] 00:00:00 00:00:00 Only Kayleigh 24693.1.1 Shanel ege 3.210.2.7 of .3.588420 Medici n .8 e 2019-10-31 2019-10-31 Telephone Omar Yen 1.2.840.0 [id number] [facility] 00:00:00 00:00:00 Edward 21732.1.1 Shanel ege 3.210.2.7 of .3.499472 Medici n .8 e 2019-10-27 2019-10-27 Outpatient [facility] [id number] 3-2 [facility] 12:42:06 23:59:00 [id number] 2019-10-27 2019-10-27 Orders Fiona, 1.2.840.7 [id number] [facility] 00:00:00 00:00:00 Only Dick P 44269.1.1 Shanel ege 3.210.2.7 of .3.433407 Medici n .8 e 2019-10-26 2019-10-26 Telephone Omar Yen 1.2.840.9 [id number] [facility] 00:00:00 00:00:00 Edward 04151.1.1 Shanel ege 3.210.2.7 of .3.871580 Medici n .8 e 2019-10-26 2019-10-26 Telephone Omar Yen 1.2.840.3 [id number] [facility] 00:00:00 00:00:00 Edward 01744.1.1 Shanel ege 3.210.2.7 of .3.925006 Medici n .8 e 2019-10-25 2019-10-25 Office Omar Yen 1.2.840.8 [id number] [facility] 12:05:50 14:39:35 Visit Edward 43302.1.1 Shanel ege 3.210.2.7 of .3.681449 Medici n .8 e 2019-10-25 2019-10-25 Office Bird Yen [facility] 1.2.840.114 [id number] 12:05:50 13:31:23 Visit E Seymour 350.1.13.21 0.2.7.2.686 [id number] 530 2019-10-25 2019-10-25 Travel 1.2.840.1 1.2.245.232 [id number] [facility] 00:00:00 00:00:00 24222.1.1 350.1.13.21 College 3.210.2.7 0.2.7.3.698 of .3.395625 084.8 Medici n .8 e 2019-10-24 2019-10-24 Telephone Fiona, 1.2.840.3 [id number] [facility] 00:00:00 00:00:00 Dick P 79129.1.1 Shanel ege 3.210.2.7 of .3.901014 Medici n .8 e 2019-10-20 2019-10-21 Clinical Fiona, 1.2.840.2 [id number] [facility] 11:45:00 11:15:55 Support Dick P 36118.1.1 Shanel ege 3.210.2.7 of .3.675324 Medici n .8 e 2019-10-21 2019-10-21 [facility] [id number] [facility] [address] 10:33:00 10:33:00 t Specialty/U Marquita kes - Specialty rology [facility] a /Urology Clinic l Clinic Outpati ent Clinics 2019-10-21 2019-10-21 Telephone Fiona, 1.2.840.2 [id number] [facility] 00:00:00 00:00:00 Dick P 53912.1.1 Shanel ege 3.210.2.7 of .3.923938 Medici n .8 e 2019-10-21 2019-10-21 Telephone Fiona, 1.2.840.6 [id number] [facility] 00:00:00 00:00:00 Dick P 17416.1.1 Shanel ege 3.210.2.7 of .3.502210 Medici n .8 e 2019-10-21 2019-10-21 Telephone Omar Yen 1.2.840.2 [id number] [facility] 00:00:00 00:00:00 Edward 24208.1.1 Shanel ege 3.210.2.7 of .3.799577 Medici n .8 e 2019-10-19 2019-10-19 Telephone Fiona, 1.2.840.4 [id number] [facility] 00:00:00 00:00:00 Dick P 66733.1.1 Shanel ege 3.210.2.7 of .3.306793 Medici n .8 e 2019-10-18 2019-10-18 Orders Fiona, 1.2.840.6 [id number] [facility] 00:00:00 00:00:00 Only Dick P 87286.1.1 Shanel ege 3.210.2.7 of .3.194032 Medici n .8 e 2019-10-18 2019-10-18 Telephone Fiona, 1.2.840.2 [id number] [facility] 00:00:00 00:00:00 Dick P 49981.1.1 Shanel ege 3.210.2.7 of .3.116096 Medici n .8 e 2019-10-17 2019-10-17 Telephone Fiona, 1.2.840.7 [id number] [facility] 00:00:00 00:00:00 Dick P 60622.1.1 Shanel ege 3.210.2.7 of .3.403164 Medici n .8 e 2019-10-14 2019-10-14 Outpatient [facility] [id number] 3-2 [facility] 06:14:00 06:14:00 [id number] 2019-10-14 2019-10-14 Orders Fiona, 1.2.840.3 [id number] [facility] 00:00:00 00:00:00 Only Dick P 57814.1.1 Shanel ege 3.210.2.7 of .3.852087 Medici n .8 e 2019-10-14 2019-10-14 Telephone Fiona, 1.2.840.0 [id number] [facility] 00:00:00 00:00:00 Dick P 12026.1.1 Shanel ege 3.210.2.7 of .3.615944 Medici n .8 e 2019-10-14 2019-10-14 Abstract Fiona, 1.2.840.1 [id number] [facility] 00:00:00 00:00:00 Dick P 66871.1.1 Shanel ege 3.210.2.7 of .3.411924 Medici n .8 e 2019-10-13 2019-10-13 Telephone Fiona, 1.2.840.3 [id number] [facility] 00:00:00 00:00:00 Dick P 48742.1.1 Shanel ege 3.210.2.7 of .3.640554 Medici n .8 e 2019-10-13 2019-10-13 Abstract Fiona, 1.2.840.1 [id number] [facility] 00:00:00 00:00:00 Dick P 03575.1.1 Shanel ege 3.210.2.7 of .3.180218 Medici n .8 e 2019-10-12 2019-10-12 Outpatient [facility] [id number] 3-2 [facility] 00:00:00 00:00:00 [id number] 2019-10-10 Outpatient [facility] [id number] 3-2 [facility] 00:00:00 00:00:00 [id number] 2019-10-10 Telephone Fiona, 1.2.840.5 [id number] [facility] 00:00:00 00:00:00 Dick P 45011.1.1 Shanel ege 3.210.2.7 of .3.775157 Medici n .8 e 2019-10-04 2019-10-04 Office GUILLERMINA Henriquez 1.2.840.114 [id number] 15:02:08 15:36:29 Visit Dick P AMBULATOR 350.1.13.21 Y 0.2.7.2.686 [id number] 2019-10-04 2019-10-04 Office GUILLERMINA Henriquez 1.2.840.114 [id number] [facility] 15:02:08 15:36:29 Visit Dick P AMBULATOR 350.1.13.21 College Y 0.2.7.2.686 of [id number] [facility] 300 e 2019-09-21 2019-09-21 [facility] [id number] 15:44:00 15:44:00 t Specialty/U Marquita kes - Specialty rology [facility] 2019-09-13 2019-09-13 [facility] [id number] [facility] [address] 13:15:00 13:15:00 t Specialty/U Marquita kes - Specialty rology [facility] Results Test Description Test Time Test Comments Results Result [facility] e Comments CT, ABDOMEN 2021-05-03 Restaging bladder 12:39:00 cancerUnlisted Reason for Exam - Click Yes and Enter [facility] Below->YesUnlisted JESS, Reason for ALEXANDRIA MELENDEZ Exam->Malignant : 1945 neoplasm of Sex: overlapping sites F of bladderWill this procedure require oral contrast?->No FINAL REPORT CT of the chest, abdomen and pelvis, with contrast Clinical History: Unlisted Reason for ExamMalignant neoplasm of overlapping sites of bladder Technique: CT of the chest, abdomen and pelvis is performed with intravenous contrast administration. This exam was performed according to our departmental dose optimization program which includes automated exposure control, adjustment of the mA and/or kV according to patient's size and/or use of iterative reconstructive technique. Comparison Film: None Discussion: There is a right-sided Port-A-Cath. No supraclavicular, axillary, mediastinal or hilar lymphadenopathy. Heart is borderline enlarged. No pericardial effusion. There is no mass or consolidation. No new pulmonary nodule is identified. No effusion. No bronchiectasis or bronchial wall thickening. No liver lesion is identified. No biliary ductal dilatation, gallbladder is normal. Spleen, pancreas, and adrenal glands are normal. Kidneys demonstrate no hydronephrosis, radiopaque stone, or suspicious mass lesion. There is mild degree of cortical scarring in the left kidney. There is extrarenal pelvis bilaterally, no significant hydronephrosis. Status post cystectomy with Jazzy pouch. There is mild persistent segmental pouch wall thickening. No evidence of bowel obstruction, or abnormal bowel wall thickening. No adenopathy or mass lesion is identified. No ascites. Bony structures demonstrate degenerative changes. No suspicious bony lesion is identified. Impression: Persistent mild segmental wall thickening of the [place] pouch. No new disease identified in the chest, abdomen or pelvis. Signed: [facility] Verified Date/Time: 05/03/2021 12:39:20 Reading Location: [facility] C013X Ortho Consult Reading Room , CHEST, WITH 2021-05-03 Restaging bladder IV CONTRAST 12:39:00 cancerUnlisted Reason for Exam - Click Yes and Enter [facility] CENTERName: Below->YesUnlisted JESS, Reason for ALEXANDRIA MELENDEZ Exam->Malignant : 1945 neoplasm of Sex: overlapping sites F of bladder FINAL REPORT CT of the chest, abdomen and pelvis, with contrast Clinical History: Unlisted Reason for ExamMalignant neoplasm of overlapping sites of bladder Technique: CT of the chest, abdomen and pelvis is performed with intravenous contrast administration. This exam was performed according to our departmental dose optimization program which includes automated exposure control, adjustment of the mA and/or kV according to patient's size and/or use of iterative reconstructive technique. Comparison Film: None Discussion: There is a right-sided Port-A-Cath. No supraclavicular, axillary, mediastinal or hilar lymphadenopathy. Heart is borderline enlarged. No pericardial effusion. There is no mass or consolidation. No new pulmonary nodule is identified. No effusion. No bronchiectasis or bronchial wall thickening. No liver lesion is identified. No biliary ductal dilatation, gallbladder is normal. Spleen, pancreas, and adrenal glands are normal. Kidneys demonstrate no hydronephrosis, radiopaque stone, or suspicious mass lesion. There is mild degree of cortical scarring in the left kidney. There is extrarenal pelvis bilaterally, no significant hydronephrosis. Status post cystectomy with [place] pouch. There is mild persistent segmental pouch wall thickening. No evidence of bowel obstruction, or abnormal bowel wall thickening. No adenopathy or mass lesion is identified. No ascites. Bony structures demonstrate degenerative changes. No suspicious bony lesion is identified. Impression: Persistent mild segmental wall thickening of the [place] pouch. No new disease identified in the chest, abdomen or pelvis. Signed: Beto Bianchi [facility] Verified Date/Time: 05/03/2021 12:39:20 Reading Location: [facility] B1 C013X Ortho Consult Reading Room -CREATININE 2021-05-03 11:16:33 Test Item Value Reference Range Interpretation Comme nts POC-CREATININE (AKASHAKER) 1.0 mg/dL 0.6-1.3 : TE STED AT [facility] 7200 (test code = 1859) [facility] [address]: Senior Windows Systems Administrator /Production Control Specialist ID = [id number] for Nacho Ragsdale POC-EGFR (BEAKER) (test 54 mL/min/1.73M2 code = 1860) CT, [id number] 13:16:00Restaging bladder cancerUnlisted Reason for Exam - Click Yes and Enter Reason Below->YesUnlisted Reason for Exam->Malignant neoplasm of overlapping sites of bladderWill this procedure require oral contrast?->No[facility] A[facility]AND[facility] : 1945 Sex: F FINAL REPORT CT of the chest, abdomen and pelvis, with contrast Clinical History: Unlisted Reason for ExamMalignant neoplasm of overlapping sites of bladder Technique: CT of the chest, abdomen and pelvis is performed with intravenous contrast administration.This exam was performed according to our departmental dose optimization program which includes automated exposure control, adjustment of the mA and/or kV according to patient's size and/or use of iterative reconstructive technique. Comparison Film: October 04, 2020 and July 17, 2020 Discussion: There is a right-sided Port-A-Cath. No significant vallecular, axillary, mediastinal or hilar lymphadenopathy. Heart and pericardium are unremarkable. There is no mass or consolidation. No new pulmonary nodule is identified. No bronchiectasis or bronchial wall thickening. No liver mass is identified. A few tiny stones are suspected in the gallbladder. No ductal dilatation. Spleen, pancreas, and adrenal glands are normal. Kidneys demonstrate no mass, or radiopaque stone. Prominent bilateral extrarenal pelvises appear unchanged. Patient is status post cystectomy with [place] pouch. Pouch wall thickening has decreased but there is persistent mild wall thickening anteriorly. No bowel obstruction, or abnormal bowel wall thickening. There is no ascites, free air or adenopathy. Bony structures demonstrate degenerative changes. No suspicious bony lesion is identified. Impression: No metastatic disease identified in the chest, abdomen or pelvis. Decreased wall thickening of the Jazzy pouch. Signed: Beto Bianchieport Verified Date/Time: 01/18/2021 13:16:05 Reading Location: [facility] B1 C013X Ortho Consult Reading Room CT, CHEST, WITH IV [id number] 13:16:00Restaging bladder cancerUnlisted Reason for Exam - Click Yes and Enter Reason Below- >YesUnlisted Reason for Exam->Malignant neoplasm of overlapping sites of bladderD[facility] ALEXANDRIA MERCADO AL : 1945 Sex: FFINAL REPORT CT of the chest, abdomen and pelvis, with contrast Clinical History: Unlisted Reason for ExamMalignant neoplasm of overlapping sites of bladder Technique: CT of the chest, abdomen and pelvis is performed with intravenous contrast administration.This exam was performed according to our departmental dose optimization program which includes automated exposure control, adjustment of the mA and/or kV according to patient's size and/or use of iterative reconstructive technique. Comparison Film: October 04, 2020 and July 17, 2020 Discussion: There is a right-sided Port-A-Cath. No significant vallecular, axillary, mediastinal or hilar lymphadenopathy. Heart and pericardium are unremarkable. There is no mass or consolidation. No new pulmonary nodule is identified. No bronchiectasis or bronchial wall thickening. No liver mass is identified. A few tiny stones are suspected in the gallbladder. No ductal dilatation. Spleen, pancreas, and adrenal glands are normal. Kidneys demonstrate no mass, or radiopaque stone. Prominent bilateral extrarenal pel vises appear unchanged. Patient is status post cystectomy with [place] pouch. Pouch wall thickening has decreased but there is persistent mild wall thickening anteriorly. No bowel obstruction, or abnormal bowel wall thickening. There is no ascites, free air or adenopathy. Bony structures demonstrate degenerative changes. No suspicious bony lesion is identified. Impression: No metastatic disease identified in the chest, abdomen or pelvis. Decreased wall thickening of the [place] pouch. Signed: Beto Bian[place] Verified Date/Time: 01/18/2021 13:16:05 Reading Location: [facility] B1 C013X Ortho Consult Reading Room POCT-CREATININE 2021-01-18 12:41:00 Test Item Value Reference Range Interpretation Comments POC-CREATININE 1.0 mg/dL 0.6-1.3 : TESTED AT [facility] ([facility]) (test [address] [facility] [place] code = 1859) A, [facility] 7 2993: Senior Windows Systems Administrator/Techni kylie ID = [id number] for MANNY ISLAS POC-EGFR 54 mL/min/1.73M2 ([facility]) (test code = 1860) CT, CHEST, WITH IV [id number] 10:47:00Unlisted Reason for Exam - Click Yes and Enter Reason Below->YesUnlisted Reason for Exam->Malignant neoplasm of overlapping sites of bladder [facility] AL : 1945 Sex: FFINAL REPORT CT of the chest, abdomen and pelvis, with contrast Clinical History: Unlisted Reason for ExamMalignant neoplasm of overlapping sites of bladder Technique: CT of the chest, abdomen and pelvis is performed with intravenous contrast administration.This exam was performed according to our departmental dose optimization program which includes automated exposure control, adjustment of the mA and/or kV according to patient's size and/or use of iterative reconstructive technique. Comparison Film: July 17, 2020 and April 25, 2020 Discussion: There is a right-sided Port-A-Cath. No supraclavicular, axillary, mediastinal or hilar lymphadenopathy.Heart is enlarged. No significant pericardial effusion. There is no mass or consolidation, no pleural effusion. No new pulmonary nodule is identified. Central airways are patent, no bronchiectasis or bronchial wall thickening. No liver lesion is identified. No biliary ductal dilatation, gallbladder isnormal. The spleen, pancreas, and adrenal glands are normal. There is bilateral extrarenal pelvis, without interval change. No renal mass or radiopaque stone. Patient is status post cystectomy with Jazzy pouch. There is persistent wall thickening along the medial aspect of the pouch. No evidence of bowel obstruction or abnormal bowel wall thickening. Uterus is also absent. No adnexal mass. There isno pelvic mass, or lymphadenopathy. No ascites. A stable sclerotic focus in the right femoral neck is likely a bone island. No suspicious bony lesion identified. Impression: No metastatic disease identified in the chest, abdomen or pelvis. Persistent medial wall thickening of the [place] pouch, suggest attention on follow-up exams. This finding can also be correlated with urinalysis to exclude infection. Signed: Beto Bianchi [facility] Verified Date/Time: 10/04/2020 10:47:02 Reading Location: [facility] C013X [facility] Consult Reading Room CT, ABDOMEN 2020-10-04 10:47:00Unlisted Reason for Exam - Click Yes and Enter Reason Below- >YesUnlisted Reason for Exam->Malignant neoplasm of overlapping sites of bladderWill this procedure require oral contrast?->Yes [facility] : 1945 Sex: FFINAL REPORT CT of the chest, abdomen and pelvis, with contrast Clinical History: Unlisted Reason for ExamMalignant neoplasm of overlapping sites of bladder Technique: CT of the chest, abdomen and pelvis is performed with intravenous contrast administration.This exam was performed according to our departmental dose optimization program which includes automated exposure control, adjustment of the mA and/or kV according to patient's size and/or use of iterative reconstructive technique. Comparison Film: July 17, 2020 and April 25, 2020 Discussion: There is a right-sided Port-A-Cath. No supraclavicular, axillary, mediastinal or hilar lymphadenopathy.Heart is enlarged. No significant pericardial effusion. There is no mass or consolidation, no pleural effusion. No new pulmonary nodule is identified. Central airways are patent, no bronchiectasis or bronchial wall thickening. No liver lesion is identified. No biliary ductal dilatation, gallbladder isnormal. The spleen, pancreas, and adrenal glands are normal. There is bilateral extrarenal pelvis, without interval change. No renal mass or radiopaque stone. Patient is status post cystectomy with [place] pouch. There is persistent wall thickening along the medial aspect of the pouch. No evidence of bowel obstruction or abnormal bowel wall thickening. Uterus is also absent. No adnexal mass. There isno pelvic mass, or lymphadenopathy. No ascites. A stable sclerotic focus in the right femoral neck is likely a bone island. No suspicious bony lesion identified. Impression: No metastatic disease identified in the chest, abdomen or pelvis. Persistent medial wall thickening of the [place] pouch, suggest attention on follow-up exams. This finding can also be correlated with urinalysis to exclude infection. Signed: Beto Bianchi [facility] Verified Date/Time: 10/04/2020 10:47:02 Reading Location: [facility] C013X [facility] Consult Reading Room -[id number] 08:59:00 Test Item Value Reference Range Interpretation Comments POC-CREATININE 1.0 mg/dL 0.6-1.3 : TESTED AT [facility] ([facility]) (test [address] code = 1859) A, [facility] 7 7621: Senior Windows Systems Administrator/Techni kylie ID = [id number] for MANNY ISLAS POC-EGFR 54 mL/min/1.73M2 ([facility]) (test code = 1860) US PELVIS COMPLETE WITH [id number] 23:47:141. ?Status post hysterectomy. Bilateral ovaries were not visualized, may besurgically absent. Preliminary Report Dictated by Resident: Teo Morley MD., have reviewed this study and agree with the abovereport.EXAM: US PELVIS COMPLETE WITH TRANSVAGINAL HISTORY: 74 years -old female status post cystectomy and hysterectomy withpost menopausal bleeding . TECHNIQUE: Transabdominal and transvaginal ultrasound imaging of the pelviswas performed including color Doppler evaluation. Acid Painter imageswere obtained for the record. COMPARISON: None FINDINGS: Uterus: Status post hysterectomy. The vagina cuff is unremarkable. Right Adnexa:Ovary: Not visualized Left Adnexa:Ovary : Not visualized. Cul-de-sac: No free fluid. Mamb, Radiant Results Inft User - 07/19/2020 5:48 PM CSTEXAM: US PELVIS COMPLETE WITH TRANSVAGINALHISTORY: 74 years -old female status post cystectomy and hysterectomy withpost menopausal bleeding . TECHNIQUE: Transabdominal and transvaginal ultrasound imaging of the pelviswas performed including color Doppler evaluation. Acid Painter imageswere obtained for the record.COMPARISON: NoneFINDINGS:Uterus: Status post hysterectomy. The vagina cuff is unremarkable.Right Adnexa:Ovary: Not visualizedLeft Adnexa:Ovary : Not visualized.Cul-de-sac: No free fluid.IMPRES SION1. Status post hysterectomy. Bilateral ovaries were not visualized, may besurgically absent.Preliminary Report Dictated by Resident: Teo Valdes MD., have reviewed this studyand agree with the abovereport. [facility] HEAD [id number] 23:45:31 Nodule 1 located in the upper portion of the left thyroid lobe measures upto 1.8 cm meets the TI-RADS 3 criteria for follow-up in a year. Echotexture of the thyroid parenchyma is heterogeneous, possibly related toHashimoto's thyroiditis. ACR TI-RADS recommendations* ?TR5 (>/=7 points) -FNA if >/= 1cm, follow-up if0.5 -0.9 cm every yearfor 5 years* ?TR4 (4-6 points) -FNA if >/= 1.5cm, follow-up if 1 -1.4 cm in1, 2, 3and 5 years* ?TR3 (3 points)-FNA if >/= 2.5cm, follow-up if 1.5 -2.4 cm in 1, 3 and 5years* ?TR2 (2 points) & TR1 (0 points) -No FNA or follow-up Preliminary Report Dictated by Resident: Teo Morley MD., have reviewed this study and agree with the abovereport.EXAM:US HEAD NECK HISTORY: 74 years-old female presenting for left thyroid nodule follow-up TECHNIQUE: Ultrasound examination of the thyroid and adjacent soft tissueswas performed. COMPARISON: None FINDINGS: The thyroid gland is normal in size with heterogeneous echotexture andnormal ?color Doppler flow.The right thyroid lobe measures 4.7 x 2 x 1.9 cm, and the volume is 9.4 mL. The left thyroid lobe measures 4.8 x 1.8 x 2.5 cm, and the volume is 11.1mL. The isthmus measures 0.3 cm. The estimated total number of nodules >/=1cm is 1The number of spongiform nodules >/=2cm not described below (TR1) is 0.The number of mixed cystic and solid nodules >/=1.5cm not described below(TR2) is 0.2 subcentimeter lymph nodes are seen on the left lateral neck. Nodule#: 1* ?Maximum size:1.8 cm* ?Location: Upper - Left thyroid lobe * ?Composition: Solid/almost completely solid (2) * ?Echogenicity: Isoechoic (1) * ?Shape: Not taller than wide (0) * ?Margins: Smooth (0) * ?Echogenic foci: None (0) Significant change in size (>/= 20% in two dimensions and minimal increaseof 2 mm): No Change in features: No Change in ACR TI-RADS risk category: No * ?ACR TI-RADS total points: 3 * ?ACR TI-RADS risk category: TR 3 (3 points) * ?ACR TI- RADS recommendation: Follow-up ultrasound in 1, 3 and 5 years(from date of initial exam 07/19/2020) [facility], Radiant Results Inft User - 07/19/2020 5:46 PM CSTEXAM: US HEAD NECKHISTORY: 74 years-old female presenting for left thyroid nodule follow-upTECHNIQUE: Ultrasound examination of the thyroid and adjacent soft tissueswas performed.COMPARISON: NoneFINDINGS:The thyroid gland is normal in size with heterogeneous echotexture andnormal color Doppler flow.The right thyroidlobe measures 4.7 x 2 x 1.9 cm, and the volume is 9.4 mL.The left thyroid lobe measures 4.8 x 1.8 x 2.5 cm, and the volume is 11.1mL. The isthmus measures 0.3 cm. The estimated total number of nodules >/=1cm is 1The number of spongiform nodules >/=2cm not described below (TR1) is 0.The number ofmixed cystic and solid nodules >/=1.5cm not described below(TR2) is 0.2 subcentimeter lymph nodesare seen on the left lateral neck.Nodule#: 1* Maximum size:1.8 cm* Location: Upper - Left thyroid lobe * Composition: Solid/almost completely solid (2) * Echogenicity: Isoechoic (1) * Shape: Not taller than wide (0) * Margins: Smooth (0) * Echogenic foci: None (0) Significant change in size (>/= 20% in two dimensions and minimal increaseof 2 mm): No Change in features: No Change in ACR TI-RADS risk category: No * ACR TI-RADS total points: 3 * ACR TI-RADS risk category: TR 3 (3 points) *ACR TI-RADS recommendation: Follow-up ultrasound in 1, 3 and 5 years(from date of initial exam 07/19/2020)IMPRESSIONNodule 1 located in the upper portion of the left thyroid lobe measures upto 1.8 cm meets the TI-RADS 3 criteria for follow-up in a year.Echotexture of the thyroid parenchyma is heterogeneous, possibly related toHashimoto's thyroiditis. ACR TI-RADS recommendations* TR5 (>/=7 points) - FNA if >/= 1cm, follow-up if 0.5 -0.9 cm every yearfor 5 years* TR4 (4-6 points) -FNA if >/= 1.5cm, follow-up if 1-1.4 cm in 1, 2, 3and 5 years* TR3 (3 points)-FNA if >/= 2.5cm, follow-up if 1.5 -2.4 cm in 1, 3and 5years* TR2 (2 points) & TR1 (0 points) -No FNA or follow-upPreliminary Report Dictated by Resident: Teo Valdes MD., have reviewed this study and agree with the abovereport.[facility] SCREENING MAMMOGRAM [id number] 18:20:10Examination:BI SCREENING MAMMOGRAM BILATERAL History:Patient is 74 year old and is seen for: ?Screening mammogram. Computer-aided detection (CAD) utilized. Comparisons : None available Findings:The breasts are heterogeneously dense, which may obscure small masses. There is no evidence of suspicious masses, calcifications, or other abnormal findings. Scattered benign-appearing calcifications are notedin both breasts. Impression: Bilateral breasts: There is no evidence of malignancy. Recommendation:Annual mammographic follow-up - Bilateral BI-RADS Category: Both 2 - [facility]ignUnN[facility]ogdoc[facility] CenterCT, CHEST, WITH IV CONTRAST 2020-07-17 15:58:00Unlisted Reason for Exam - Click Yes and Enter Reason Below- >YesUnlisted Reason for Exam->Malignant neoplasm of overlapping sites of bladderAVALON [facility]UNICIPAL [facility]ITALName: A[facility]RIA MERCAD[facility] : 1945 Sex: FFINAL REPORT TECHNIQUE: CT of the chest, abdomen, and pelvis WITH intravenous contrast and WITHOUT oral contrast. Dose modulation, iterative reconstruction, and/or weight-based adjustment of the mA/kV was utilized to reduce the radiation dose to as low as reasonably achievable. INDICATION: Unlisted Reason for ExamMalignant neoplasm of overlapping sites of bladder. COMPARISON: CT of the chest, abdomen, and pelvis from 04/25/2020. FINDINGS: LINES/TUBES: Right chest port with tip at the superior cavoatrial junction.. LUNGS AND AIRWAYS: The lungs and airways arenormal without focal abnormality.PLEURA: The pleural spaces are clear.HEART AND MEDIASTINUM: The thyr oid is enlarged. No significant mediastinal, hilar, or axillary lymphadenopathy. The heart and pericardium are within normal limits. Moderate calcification of the left anterior descending coronary artery. HEPATOBILIARY: No focal hepatic lesions. Gallbladder is unremarkable. No biliary ductal dilatation.SPLEEN: No splenomegaly.PANCREAS: No focal masses or ductal dilatation. ADRENALS: No adrenal nodules.KIDNEYS/URETERS: There is mild bilateral renal collecting system fullness with mild urothelial enhancement. Mild bilateral renal cortical scarring. PELVIC ORGANS/BLADDER: Prior hysterectomy and cystectomy. There is a right lower quadrant Jazzy pouch with a midline urostomy. There is unchanged, fairly abrupt narrowing at the right ureteropelvic junction. PERITONEUM/RETROPERITONEUM: No free air or fluid.LYMPH NODES: No lymphadenopathy. Prior pelvic rula dissection.VESSELS: Unremarkable. GI TRACT: Prior right hemicolectomy. No distention or wall thickening. BONES AND SOFT TISSUES: Mild degenerative disc changes of the visualized spine. IMPRESSION: 1.The mild bilateral renal collecting system fullness and urothelial enhancement may be due to reflux. Consider evaluation for underlying urinary tract infection given the urothelial enhancement. 2.There is fairly abrupt narrowing at the right ureteropelvic junction. An accessory right renal artery does cross at this level and could be the underlying cause. However, a urogram or pouchogram could be considered to evaluate for an underlying intrinsicobstruction. 3.No definite metastatic disease in the chest, abdomen, or pelvis. Signed: Gio Hurley [facility] ([place], [place]) Verified Date/Time: 07/17/2020 15:58:18 . [facility], [id number] 15:58:00Unlisted Reason for Exam - Click Yes and Enter Reason Below->YesUnlisted Reason for Exam->Malignant neoplasm of overlapping sites of bladder [facility] MERCADO [place] : 1945 Sex: FFINAL REPORT TECHNIQUE: CT of the chest, abdomen, and pelvis WITH intravenous contrast and WITHOUT oral contrast. Dose modulation, iterative reconstruction, and/or weight-based adjustment of the mA/kV was utilized to reduce the radiation dose to as low as reasonably achievable. INDICATION: Unlisted Reason for ExamMalignant neoplasm of overlapping sites of bladder. COMPARISON: CT of the chest, abdomen, and pelvis from 04/25/2020. FINDINGS: LINES/TUBES: Right chest port with tip at the superior cavoatrial junction.. LUNGS AND AIRWAYS: The lungs and airways arenormal without focal abnormality.PLEURA: The pleural spaces are clear.HEART AND MEDIASTINUM: The thyr oid is enlarged. No significant mediastinal, hilar, or axillary lymphadenopathy. The heart and pericardium are within normal limits. Moderate calcification of the left anterior descending coronary artery. HEPATOBILIARY: No focal hepatic lesions. Gallbladder is unremarkable. No biliary ductal dilatation.SPLEEN: No splenomegaly.PANCREAS: No focal masses or ductal dilatation. ADRENALS: No adrenal nodules.KIDNEYS/URETERS: There is mild bilateral renal collecting system fullness with mild urothelial enhancement. Mild bilateral renal cortical scarring. PELVIC ORGANS/BLADDER: Prior hysterectomy and cystectomy. There is a right lower quadrant [place] pouch with a midline urostomy. There is unchanged, fairly abrupt narrowing at the right ureteropelvic junction. PERITONEUM/RETROPERITONEUM: No free air or fluid.LYMPH NODES: No lymphadenopathy. Prior pelvic rula dissection.VESSELS: Unremarkable. GI TRACT: Prior right hemicolectomy. No distention or wall thickening. BONES AND SOFT TISSUES: Mild degenerative disc changes of the visualized spine. IMPRESSION: 1.The mild bilateral renal collecting system fullness and urothelial enhancement may be due to reflux. Consider evaluation for underlying urinary tract infection given the urothelial enhancement. 2.There is fairly abrupt narrowing at the right ureteropelvic junction. An accessory right renal artery does cross at this level and could be the underlying cause. However, a urogram or pouchogram could be considered to evaluate for an underlying intrinsicobstruction. 3.No definite metastatic disease in the chest, abdomen, or pelvis. Signed: Gio Hurley MDReport Verified Date/Time: 07/17/2020 15:58:18 [id number] 10:41:00 Test Item Value Reference Range Interpretation Comments POC-CREATININE 0.8 mg/dL 0.6-1.3 : TESTED AT [facility] ([facility]) ([facility] [facility] code = 1859) Lemuel [facility] [address]: Senior Windows Systems Administrator/Techni kylie ID = [id number] for MANNY ISLAS POC-EGFR 70 mL/min/1.73M2 (FAINA) (test code = 1860) POCT URINALYSIS [id number] 00:00:00 Test Item Value Reference Range Interpretation Comments COLOR UA (test code = 5778-6) Yellow YELLOW/STRAW CLARITY UA (test code = 70303-0) Clear CLEAR GLUCOSE UA (test code = 5792-7) Negative NEGATIVE BILIRUBIN UA (test code = 5770-3) Negative NEGATIVE KETONES UA (test code = 54959-9) Negative NEGATIVE SPECIFIC GRAVITY UA (test code = 1.005-1.035 A 5811-5) BLOOD UA (test code = 5794-3) Negative NEGATIVE PH UA (test code = 5803-2) 5-9 PROTEIN UA (test code = 5804-0) Trace NEGATIVE UROBILINOGEN UA (test code = 0.02 E.U/DL NORMAL MG/DL 5818-0) LEUKOCYTE ESTERASE UA (test code MOD NEGATIVE = 5799-2) NITRITE UA (test code = 5802-4) Negative NEGATIVE REDUCING SUBSTANCES URINE (test code = 15154-4) Lab Interpretation (test code = Abnormal 70926-3) [facility] [id number] 10:03:00Unlisted Reason for Exam - Click Yes and Enter Reason Below->YesUnlisted Reason for Exam->Malignant neoplasm of overlapping sites of bladderFINAL REPORT TECHNIQUE: CT of the chest, abdomen, and pelvis WITH intravenous contrast and WITHOUT oral contrast. Dose modulation, iterative reconstruction, and/or weight-based adjustment of the mA/kV was utilized to reduce the radiation dose to as low as reasonably achievable. INDICATION: Bladder cancer, staging COMPARISON: 12/27/2019. FINDINGS: LINES/TUBES: Right IJ approach port catheter tip terminates at the cavoatrial junction.. LUNGS AND AIRWAYS: Central airways are patent. There is bibasilar atelectasis. No new or enlarging pulmonary nodule to.PLEURA: Trace right-sided pleural effusion..HEART AND MEDIASTINUM: Asymmetric enlargement and heterogeneity of the left thyroidlobe, unchanged.. No significant mediastinal, hilar, or axillary lymphadenopathy. The heart and peric ardium are within normal limits. HEPATOBILIARY: Mild focal fatty infiltration in segment four adjacent to the falciform ligament. No liver lesion.. Gallbladder is unremarkable. No biliary ductal dilatation.SPLEEN: No splenomegaly.PANCREAS: No focal masses or ductal dilatation. ADRENALS: No adrenal nodu les.KIDNEYS/URETERS: Symmetric enhancement of bilateral kidneys. There is mild right-sided hydroureteronephrosis, new since previous exam. There is a prominent extrarenal pelvis on the left without gross hydronephrosis.PELVIC ORGANS/BLADDER: Status post cystectomy and hysterectomy with pelvic lymph node dissection. There is a right lower quadrant urinary conduit with midline urostomy.. PERITONEUM/RETROPERITONEUM: Small volume ascites. No focal collection or free air..LYMPH NODES: No lymphadenopathy.VESSELS: Unremarkable. GI TRACT: Status post right hemicolectomy. Bowel loops are normal in caliber without evidence of obstruction.. BONES AND SOFT TISSUES: Degenerative changes are noted in the thoracolumbar spine. No suspicious osseous lesion.. IMPRESSION:Status post cystectomy and hysterectomy with creation of right lower quadrant neobladder with midline urostomy. Interval development of mild right-sided hydroureteronephrosis. Trace right-sided pleural effusion. Small volume ascites No intrathoracic, intra-abdominal or intrapelvic metastatic disease. Signed: Tyler Shankar MDReport Verified Date/Time: 04/26/2020 10:03:24 Reading Location: [facility] Diagnostic Imaging Reading Room - [place] [address] CT, [id number] 10:03:00Unlisted Reason for Exam - Click Yes and Enter Reason Below- >YesUnlisted Reason for Exam->Malignant neoplasm of overlapping sites of bladderFINAL REPORT TECHNIQUE: CT of the chest, abdomen, and pelvis WITH intravenouscontrast and WITHOUT oral contrast. Dose modulation, iterative reconstruction, and/or weight-based adjustment of the mA/kV was utilized to reduce the radiation dose to as low as reasonably achievable. I NDICATION: Bladder cancer, staging COMPARISON: 12/27/2019. FINDINGS: LINES/TUBES: Right IJ approach port catheter tip terminates at the cavoatrial junction.. LUNGS AND AIRWAYS: Central airways are patent. There is bibasilar atelectasis. No new or enlarging pulmonary nodule to.PLEURA: Trace right-sided pleural effusion..HEART AND MEDIASTINUM: Asymmetric enlargement and heterogeneity of the left thyroidlobe, unchanged.. No significant mediastinal, hilar, or axillary lymphadenopathy. The heart and pericardium are within normal limits. HEPATOBILIARY: Mild focal fatty infiltration in segment four adjacent to the falciform ligament. No liver lesion.. Gallbladder is unremarkable. No biliary ductal dilatation.SPLEEN: No splenomegaly.PANCREAS: No focal masses or ductal dilatation. ADRENALS: No adrenal nodules.KIDNEYS/URETERS: Symmetric enhancement of bilateral kidneys. There is mild right-sided hydroureteronephrosis, new since previous exam. There is a prominent extrarenal pelvis on the left without gross hydronephrosis.PELVIC ORGANS/BLADDER: Status post cystectomy and hysterectomy with pelvic lymph node dissection. There is a right lower quadrant urinary conduit with midline urostomy.. PERITONEUM/RETROPERITONEUM: Small volume ascites. No focal collection or free air..LYMPH NODES: No lymphadenopathy.V ESSELS: Unremarkable. GI TRACT: Status post right hemicolectomy. Bowel loops are normal in caliber without evidence of obstruction.. BONES AND SOFT TISSUES: Degenerative changes are noted in the thoracolumbar spine. No suspicious osseous lesion.. IMPRESSION:Status post cystectomy and hysterectomy with creation of right lower quadrant neobladder with midline urostomy. Interval development of mild right-sided hydroureteronephrosis. Trace right-sided pleural effusion. Small volume ascites No intrathoracic, intra-abdominal or intrapelvic metastatic disease. Signed: Tyler Shankar MDReport Verified Date/Time: 04/26/2020 10:03:24 Reading Location: [facility] Diagnostic Imaging Reading Room - [place] [address] -[id number] 09:03:00 Test Item Value Reference Range Interpretation Comments POC-CREATININE 0.8 mg/dL 0.6-1.3 : TESTED AT [facility] ([employer]) (test [address] BLDG code = 1859) [place] [address]: Senior Windows Systems Administrator/Techni kylie ID = [id number] for [place] WOODSON ICA POC-EGFR 70 mL/min/1.73M2 (FAINA) (test code = 1860) COMPREHENSIVE METABOLIC [id number] 07:49:43 Test Item Value Reference Range Interpretation Comments GLUCOSE (test code = See_Comment H [Autom ated message] 7505-7) The system [employer] generated this result transmitted ref erence range: 70 - 99 MG/DL. The reference r anil was not used to interpret this result as normal/abnor mal. BLOOD UREA NITROGEN See_Comment [Automa tom message] (test code = 3091-6) The [facility] tem which generated this result transmitted ref erence range: 8 - 23 M G/DL. The reference r anil was not used to interpret this result as normal/abnor mal. CREATININE (test code = See_Comment [Au tomated message] 2160-0) The system [employer] generated this result transmitted ref erence range: 0.60 - 1 .30 MG/DL. The refe rence range was not u sed to interpret this result as normal/abnor mal. EGFR AA (test code = See_Comment [Autom ated message] 22795-3) The system [employer] generated this result transmitted ref erence range: >60 ML/MIN/1.73. Th e reference range was not used to int erpret this result as normal/abnormal . EGFR (test code = See_Comment [Automate d message] 57384-7) The system [employer] generated this result transmitted ref erence range: >60 ML/MIN/1.73. Th e reference range was not used to int erpret this result as normal/abnormal . BUN/CREAT RATIO (test See_Comment [Auto mated message] code = 3097-3) The system [employer] generated this result transmitted ref erence range: 6 - 28 R ATIO. The reference r anil was not used to interpret this result as normal/abnor mal. SODIUM (test code = See_Comment [Automa tom message] 2951-2) The system [employer] generated this result transmitted ref erence range: 133 - 14 6 MEQ/L. The refe rence range was not u sed to interpret this result as normal/abnor mal. POTASSIUM (test code = See_Comment [Aut omated message] 2183-3) The system [employer] generated this result transmitted ref erence range: 3.5 - 5. 4 MEQ/L. The refe rence range was not u sed to interpret this result as normal/abnor mal. CHLORIDE (test code = See_Comment [Auto mated message] 2715-0) The system [employer] generated this result transmitted ref erence range: 95 - 107 MEQ/L. The reference r anil was not used to interpret this result as normal/abnor mal. CO2 (test code = See_Comment [Automated message] 1520-8) The system [employer] generated this result transmitted ref erence range: 19 - 31 MEQ/L. The reference r anil was not used to interpret this result as normal/abnor mal. CALCIUM (test code = See_Comment [Autom ated message] 08547-3) The system [employer] generated this result transmitted ref erence range: 8.5 - 10 .5 MG/DL. The refe rence range was not u sed to interpret this result as normal/abnor mal. PROTEIN TOTAL (test See_Comment [Automa tom message] code = 2885-2) The system [facility] generated this result transmitted ref erence range: 6.1 - 8. 3 G/DL. The reference r anil was not used to interpret this result as normal/abnor mal. ALBUMIN (test code = See_Comment [Autom ated message] 80702-6) The system [employer] generated this result transmitted ref erence range: 3.5 - 5. 2 G/DL. The reference r anil was not used to interpret this result as normal/abnor mal. GLOBULINS, SERUM, TOTAL See_Comment [Au tomated message] (test code = 86111-5) The sy stem which generated this result transmitted ref erence range: 1.9 - 3. 7 G/DL. The reference r anil was not used to interpret this result as normal/abnor mal. A/G RATIO (test code = See_Comment [Aut omated message] 5789-0) The system [employer] generated this result transmitted ref erence range: 1.0 - 2. 6 RATIO. The refe rence range was not u sed to interpret this result as normal/abnor mal. BILIRUBIN TOTAL (test See_Comment [Auto mated message] code = 1974-2) The system [facility] generated this result transmitted ref erence range: <=1.2 MG /DL. The reference r anil was not used to interpret this result as normal/abnor mal. ALKALINE PHOSPHATASE 58 U/L 40-142 (test code = 6768-6) AST (SGOT) (test code = 22 U/L 9-40 1920-8) ALT (SGPT) (test code = 17 U/L 5-40 Unless 1744-2) Otherwise Indic ated, All Testing Per formed At: [facility], [address] [place] [address] Laboratory Dire ctor: Robbie de los santos M.D. CLIA Num alejandro [id number] Cap Accreditation N o. [id number] Lab Interpretation Abnormal (test code = 12925-4) [facility] W/AUTO DIFF WITH [id number] 06:08:57 Test Item Value Reference Range Interpretation Comments WHITE BLOOD CELL COUNT See_Comment [Aut omated message] (test code = 74625-4) The sy stem which generated this result transmitted ref erence range: 3.5 - 10 .0 K/UL. The refer ence range was not u sed to interpret this result as normal/abnor mal. RED BLOOD CELL COUNT See_Comment L [Autom ated message] (test code = 80165-5) The sy stem which generated this result transmitted ref erence range: 3.80 - 5 .20 M/UL. The refer ence range was not u sed to interpret this result as normal/abnor mal. HEMOGLOBIN (test code = See_Comment L [Au tomated message] 718-7) The system [facility] generated this result transmitted ref erence range: 12.0 - 1 6.0 G/DL. The refer ence range was not u sed to interpret this result as normal/abnor mal. HEMATOCRIT (test code = 31.6 % 35-46 L 24862-4) MEAN CORPUSCULAR VOLUME 91.1 fL 80-99 (test code = 17805-5) MEAN CORPUSCULAR 29.7 PG 25-34 HEMOGLOBIN (test code = 26880-5) MEAN CORPUSCULAR See_Comment [Automated message] HEMOGLOBIN CONC (test The sy stem which code = 59848-3) generated th is result transmitted ref erence range: 31.0 - 3 6.0 G/DL. The refer ence range was not u sed to interpret this result as normal/abnor mal. RED CELL DISTRIBUTION 14.5 % 11.5-15 WIDTH (test code = 49237-9) NEUTROPHILS % (test 62.8 % 40-75 code = 12671-4) LYMPHOCYTES % (test 23.4 % 20-45 code = 19248-2) MONOCYTES % (test code 9.4 % 4-12 = 24277-9) EOSINOPHILS % (test 3.8 % 0-7 code = 56699-5) BASOPHILS % (test code 0.6 % 0-2 = 80535-3) PLATELET COUNT (test See_Comment Unless code = 73754-1) Otherwise In dicated, All Testing Per formed At: [facility], [address] [place] [address] Laboratory Dire ctor: Robbie de los santos M.D. CLIA Num alejandro [id number] Cap Accreditation N o. [id number] [Auto mated message] The sy stem which generated this result transmit tom reference range : 130 - 400 K/UL. The reference range was not used to int erpret this result as normal/abnormal . Lab Interpretation Abnormal (test code = 87717-7) [facility]2020-02-10 01:04:00 Test Item Value Reference Range Interpretation Comments SARS-COV2/RT-PCR (test code Negative Not Detected, Negative, = 7335131) See external report for linked test SARS-COV-2 PERFORMING LAB CPL (test code = 9854620) URINE [id number] 12:03:00 Test Item Value Reference Range Interpretation Comments CULTURE (BEAKER) (test >100,000 col/mL skin code = 1095) wendy HEMOGLOBIN AND [id number] 14:07:00 Test Item Value Reference Range Interpretation Comments HEMOGLOBIN (BEAKER) (test code = 7.5 GM/DL 11.2-15.7 L 410) HEMATOCRIT (BEAKER) (test code = 23.8 % 34.1-44.9 L 411) Senior Windows Systems Administrator ID - [id number] METABOLIC [id number] 07:06:00 Test Item Value Reference Range Interpretation [...] 697) EGFR (BEAKER) (test 86 mL/min/1.73 ESTIMA TOM GFR IS code = 1092) sq m NOT ACCURATE CREATININE CLEARANCE IN PREDICTING GLOMERULAR FILTRATION RATE . ESTIMATED GFR I S NOT APPLICABLE FOR DIALYSIS PATIEN TS. Senior Windows Systems Administrator ID - [place] [id number] 07:03:00 Test Item Value Reference Range Interpretation Comments PHOSPHORUS (BEAKER) (test code = 3.7 mg/dL 2.3-4.7 604) Senior Windows Systems Administrator ID - [place] [id number] 07:03:00 Test Item Value Reference Range Interpretation Comments MAGNESIUM (BEAKER) (test code = 1.9 mg/dL 1.6-2.6 627) Senior Windows Systems Administrator ID - [place] LHEMOGLOBIN AND [id number] 06:03:00 Test Item Value Reference Range Interpretation Comments HEMOGLOBIN (BEAKER) (test code = 7.3 GM/DL 11.2-15.7 L 410) HEMATOCRIT (BEAKER) (test code = 22.5 % 34.1-44.9 L 411) Senior Windows Systems Administrator ID - [id number] METABOLIC [id number] 08:13:00 Test Item Value Reference Range Interpretation [...] 697) EGFR (BEAKER) (test 79 mL/min/1.73 ESTIMA TOM GFR IS code = 1092) sq m NOT ACCURATE CREATININE CLEARANCE IN PREDICTING GLOMERULAR FILTRATION RATE . ESTIMATED GFR I S NOT APPLICABLE FOR DIALYSIS PATIEN TS. Senior Windows Systems Administrator ID - JULI [id number] 08:10:00 Test Item Value Reference Range Interpretation Comments MAGNESIUM (BEAKER) (test code = 1.9 mg/dL 1.6-2.6 627) Senior Windows Systems Administrator ID - JULI [id number] 08:10:00 Test Item Value Reference Range Interpretation Comments PHOSPHORUS (BEAKER) (test code = 4.2 mg/dL 2.3-4.7 604) Senior Windows Systems Administrator ID - NTPOperator ID - JULI CHEMOGLOBIN AND [id number] 05:10:00 Test Item Value Reference Range Interpretation Comments HEMOGLOBIN (BEAKER) (test code = 8.1 GM/DL 11.2-15.7 L 410) HEMATOCRIT (BEAKER) (test code = 24.3 % 34.1-44.9 L 411) Senior Windows Systems Administrator ID - [id number] 07:07:00 Test Item Value Reference Range Interpretation Comments PHOSPHORUS (BEAKER) (test code = 2.8 mg/dL 2.3-4.7 604) Senior Windows Systems Administrator ID - [place] [id number] 07:07:00 Test Item Value Reference Range Interpretation Comments MAGNESIUM (BEAKER) (test code = 1.6 mg/dL 1.6-2.6 627) Senior Windows Systems Administrator ID - [place] LBASIC METABOLIC [id number] 07:07:00 Test Item Value Reference Range Interpretation [...] 697) EGFR (BEAKER) (test 78 mL/min/1.73 ESTIMA TOM GFR IS code = 1092) sq m NOT ACCURATE CREATININE CLEARANCE IN PREDICTING GLOMERULAR FILTRATION RATE . ESTIMATED GFR I S NOT APPLICABLE FOR DIALYSIS PATIEN TS. Senior Windows Systems Administrator ID - PIAYA LHEMOGLOBIN AND [id number] 06:28:00 Test Item Value Reference Range Interpretation Comments HEMOGLOBIN (BEAKER) (test code = 8.0 GM/DL 11.2-15.7 L 410) HEMATOCRIT (BEAKER) (test code = 24.6 % 34.1-44.9 L 411) Senior Windows Systems Administrator ID - [id number], CHEST, 1 VIEW, NON [id number] 18:35:00Reason for exam:->check PICC placementShould this be performed at the bedside?->Yes FINAL REPORT History: PICC line placement. FINDINGS: [...] lower lobes, likely atelectasis. Signed: Manny Arcos MDReport Verified Date/Time: 02/03/2020 18:35:36 Reading Location: [facility] Reading Room PHOSPHORUS 2020-02-03 07:55:00 Test Item Value Reference Range Interpretation Comments PHOSPHORUS (BEAKER) (test code = 2.4 mg/dL 2.3-4.7 604) Senior Windows Systems Administrator ID - DA [id number] 07:55:00 Test Item Value Reference Range Interpretation Comments MAGNESIUM (BEAKER) (test code = 1.7 mg/dL 1.6-2.6 627) Senior Windows Systems Administrator ID - DA FBASIC METABOLIC [id number] 07:55:00 Test Item Value Reference Range Interpretation [...] 697) EGFR (BEAKER) (test 74 mL/min/1.73 ESTIMA TOM GFR IS code = 1092) sq m NOT ACCURATE CREATININE CLEARANCE IN PREDICTING GLOMERULAR FILTRATION RATE . ESTIMATED GFR I S NOT APPLICABLE FOR DIALYSIS PATIEN TS. Senior Windows Systems Administrator ID - DA FHEMOGLOBIN AND [id number] 06:56:00 Test Item Value Reference Range Interpretation Comments HEMOGLOBIN (BEAKER) (test code = 8.2 GM/DL 11.2-15.7 L 410) HEMATOCRIT (BEAKER) (test code = 24.2 % 34.1-44.9 L 411) Senior Windows Systems Administrator ID - DestinHEMOGLOBIN AND [id number] 19:28:00 Test Item Value Reference Range Interpretation Comments HEMOGLOBIN (BEAKER) (test code = 8.3 GM/DL 11.2-15.7 L 410) HEMATOCRIT (BEAKER) (test code = 25.0 % 34.1-44.9 L 411) Senior Windows Systems Administrator ID - [id number] (HEMOGRAM ONLY)2020-02-02 05:09:00 Test Item Value Reference [...] WBC 0-0 (BEAKER) (test code = 413) [id number] 04:19:00 Test Item Value Reference Range Interpretation Comments PHOSPHORUS (BEAKER) (test code = 1.9 mg/dL 2.3-4.7 L 604) Senior Windows Systems Administrator ID - [place] [id number] 04:19:00 Test Item Value Reference Range Interpretation Comments MAGNESIUM (BEAKER) (test code = 1.9 mg/dL 1.6-2.6 627) Senior Windows Systems Administrator ID - [place] LBASIC METABOLIC [id number] 04:19:00 Test Item Value Reference Range Interpretation [...] 697) EGFR (BEAKER) (test 65 mL/min/1.73 ESTIMA TOM GFR IS code = 1092) sq m NOT ACCURATE CREATININE CLEARANCE IN PREDICTING GLOMERULAR FILTRATION RATE . ESTIMATED GFR I S NOT APPLICABLE FOR DIALYSIS PATIEN TS. Senior Windows Systems Administrator ID - PIAYA LHEMOGLOBIN AND [id number] 04:00:00 Test Item Value Reference Range Interpretation Comments HEMOGLOBIN (BEAKER) 5.9 GM/DL 11.2-15.7 LL [address] alfonzo candelaria per (test code = 410) [id number] HEMATOCRIT (BEAKER) 18.0 % 34.1-44.9 L (test code = 411) Senior Windows Systems Administrator ID - [id number] 13:30:00Surgical Pathology Report Case: [id number] Authorizing Provider: Dick Henriquez MD Collected: 01/30/2020 09:40 AM Ordering Location: [facility] Received: 01/30/2020 10:59 AM SERVICES Pathologist: Reinaldo Matta MD Specimens: A) -Lymph Node, RIGHT COMMON ILIAC LYMPH NODES B) - Lymph Node, RIGHT EXTERNAL ILIAC LYMPH NODES C) - LymphNode, RIGHT OBTURATOR LYMPH NODES D) - Lymph Nod e, RIGHT INTERNAL ILIAC LYMPH NODES E) - Lymph Node,LEFT COMMON ILIAC LYMPH NODES F) - Lymph Node, LEFT EXTERNAL ILIAC LYMPH NODES G) - Lymph Node, LEFT OBTURATOR LYMPH NODES H) - Ureter, Left, LEFT DI STAL URETER FOR FROZEN I) - Ureter, Right, RIGHT DISTAL URETER FOR FROZEN J) - Urinary Bladder, ANTERIOR PELVIC EXENTERATION K) - Lymph Node, PRE-SACRAL LYMPH NODES L) - Appendix A. LYMPH NODES, RIGHT COMMON ILIAC, DISSECTION: - THR EE BENIGN LYMPH NODES (0/3)B. LYMPH NODES, RIGHT [...] THE TIP Signing Pathologist Direct Phone Line: [phone] signed by Reinaldo Matta MD on 02/01/2020 [...] (pT): pT3a Regional Lymph Nodes (pN): pN0 59044 x [id number] X [id number] x [id number] diagnosis: Malignant neoplasm of the urinary bladder. [...] 8.0 x 5.5 x 1.1 cm. A s urgical clip is identified within the specimen. The [...] The endometrial cavity measures 1.5 cm from eejai-cg-ffjhk and 3.5 cm in length. The endometrium [...] orifice; J14, hyperemic bladder mucosa; J15, trigone, sales representative publications section; J16, bladder wall with vagina; J17 [...] and "presacral lymph nodes" is a red-yellow adiposetissue fragment that measures 3.0 x 2.0 [...] surgical margin at distal tip; L2, additional sales representative publications sections from appendix and the mesoappendix. MH/plFROZEN SECTION DIAGNOSIS:FSH: URETER, LEFT DISTAL MARGIN: - NEGATIVE FOR MALIGNANCY This is informed by Dr. Amaro to Dr. Henriquez on January 29, at 11:19 a.m. FSI. RIGHT URETER, RIGHT DISTAL MARGIN: - NEGATIVE FOR MALIGNANCYThis is informed by Dr. Amaro to Dr. Henriquez on January 29 at 11:19 a.m.A-L Performed.HEMOGLOBIN AND [id number] 10:52:00 Test Item Value Reference Range Interpretation Comments HEMOGLOBIN (BEAKER) (test code = 7.1 GM/DL 11.2-15.7 L 410) HEMATOCRIT (BEAKER) (test code = 21.4 % 34.1-44.9 L 411) Senior Windows Systems Administrator ID - [id number] 06:15:00 Test Item Value Reference Range Interpretation Comments PHOSPHORUS (BEAKER) (test code = 2.5 mg/dL 2.3-4.7 604) Senior Windows Systems Administrator ID - PIAYA [id number] 06:15:00 Test Item Value Reference Range Interpretation Comments MAGNESIUM (BEAKER) (test code = 1.9 mg/dL 1.6-2.6 627) Senior Windows Systems Administrator ID - PIAYA LBASIC METABOLIC [id number] 06:15:00 Test Item Value Reference Range Interpretation [...] 697) EGFR (BEAKER) (test 66 mL/min/1.73 ESTIMA TOM GFR IS code = 1092) sq m NOT ACCURATE CREATININE CLEARANCE IN PREDICTING GLOMERULAR FILTRATION RATE . ESTIMATED GFR I S NOT APPLICABLE FOR DIALYSIS PATIEN TS. Senior Windows Systems Administrator ID - PIAYA LHEMOGLOBIN AND [id number] 05:33:00 Test Item Value Reference Range Interpretation Comments HEMOGLOBIN (BEAKER) (test code = 7.0 GM/DL 11.2-15.7 L 410) HEMATOCRIT (BEAKER) (test code = 20.9 % 34.1-44.9 L 411) Senior Windows Systems Administrator ID - [id number] METABOLIC [id number] 05:02:00 Test Item Value Reference Range Interpretation [...] 697) EGFR (BEAKER) (test 52 mL/min/1.73 ESTIMA TOM GFR IS code = 1092) sq m NOT ACCURATE CREATININE CLEARANCE IN PREDICTING GLOMERULAR FILTRATION RATE . ESTIMATED GFR I S NOT APPLICABLE FOR DIALYSIS PATIEN TS. Senior Windows Systems Administrator ID - [id number] 04:59:00 Test Item Value Reference Range Interpretation Comments PHOSPHORUS (BEAKER) (test code = 4.0 mg/dL 2.3-4.7 604) Senior Windows Systems Administrator ID - [id number] 04:59:00 Test Item Value Reference Range Interpretation Comments MAGNESIUM (BEAKER) (test code = 1.4 mg/dL 1.6-2.6 L 627) Senior Windows Systems Administrator ID - DBHEMOGLOBIN AND [id number] 04:41:00 Test Item Value Reference Range Interpretation Comments HEMOGLOBIN (BEAKER) (test code = 9.4 GM/DL 11.2-15.7 L 410) HEMATOCRIT (BEAKER) (test code = 27.9 % 34.1-44.9 L 411) Senior Windows Systems Administrator ID - [id number] METABOLIC [id number] 16:33:00 Test Item Value Reference Range Interpretation [...] 697) EGFR (BEAKER) (test 76 mL/min/1.73 ESTIMA TOM GFR IS code = 1092) sq m NOT ACCURATE CREATININE CLEARANCE IN PREDICTING GLOMERULAR FILTRATION RATE . ESTIMATED GFR I S NOT APPLICABLE FOR DIALYSIS PATIEN TS. Senior Windows Systems Administrator ID - [id number] 16:29:00 Test Item Value Reference Range Interpretation Comments PHOSPHORUS (BEAKER) (test code = 5.0 mg/dL 2.3-4.7 H 604) Senior Windows Systems Administrator ID - [id number] 16:29:00 Test Item Value Reference Range Interpretation Comments MAGNESIUM (BEAKER) (test code = 1.2 mg/dL 1.6-2.6 L 627) Senior Windows Systems Administrator ID - BSCBC W/PLT COUNT & AUTO [id number] 16:14:00 Test Item Value Reference Range Interpretation [...] 0-1 PERCENT (BEAKER) (test code = 2801) BLOOD GAS, [id number] 16:08:00 Test Item Value Reference Range Interpretation [...] code = 1819) 100.0 % SODIUM NA-STAT [id number] 16:08:00 Test Item Value Reference Range Interpretation Comments SODIUM (BEAKER) (test code = 381) 133 meq/L 136-145 L GLUCOSE-STAT [id number] 16:08:00 Test Item Value Reference Range Interpretation Comments GLUCOSE RANDOM (BEAKER) (test code 224 mg/dL 70-110 H = 652) HGB/HCT (H&H) - STAT [id number] 16:08:00 Test Item Value Reference Range Interpretation Comments HEMOGLOBIN (BEAKER) (test code = 10.5 g/dL 12.0-15.0 L 410) HEMATOCRIT (BEAKER) (test code = 31.0 % 36.0-45.0 L 411) POTASSIUM-STAT [id number] 16:05:00 Test Item Value Reference Range Interpretation Comments POTASSIUM (BEAKER) (test code = 3.7 meq/L 3.6-5.5 379) CALCIUM, [id number] 14:59:00 Test Item Value Reference Range Interpretation Comments CALCIUM IONIZED (BEAKER) (test 1.07 mmol/L 1.12-1.27 L code = 698) PH, BLOOD (BEAKER) (test code = 7.29 1810) BLOOD GAS, [id number] 14:55:00 Test Item Value Reference Range Interpretation [...] = 1819) 60.0 % Temp 36.3CSODIUM NA-STAT [id number] 14:55:00 Test Item Value Reference Range Interpretation Comments SODIUM (BEAKER) (test code = 381) 134 meq/L 136-145 L Temp 36.3CGLUCOSE-STAT [id number] 14:55:00 Test Item Value Reference Range Interpretation Comments GLUCOSE RANDOM (BEAKER) (test code 226 mg/dL 70-110 H = 652) Temp 36.3CHGB/HCT (H&H) - STAT [id number] 14:55:00 Test Item Value Reference Range Interpretation Comments HEMOGLOBIN (BEAKER) (test code = 10.4 g/dL 12.0-15.0 L 410) HEMATOCRIT (BEAKER) (test code = 31.0 % 36.0-45.0 L 411) Temp 36.3CPOTASSIUM-STAT [id number] 14:51:00 Test Item Value Reference Range Interpretation Comments POTASSIUM (BEAKER) (test code = 3.8 meq/L 3.6-5.5 379) Temp 36.3CBLOOD GAS, [id number] 12:59:00 Test Item Value Reference Range Interpretation [...] (test code = 1819) 60.0 % TEMP-35.7CCALCIUM, [id number] 12:59:00 Test Item Value Reference Range Interpretation Comments CALCIUM IONIZED (BEAKER) (test 1.12 mmol/L 1.12-1.27 code = 698) PH, BLOOD (BEAKER) (test code = 7.37 1810) SODIUM NA-STAT [id number] 12:59:00 Test Item Value Reference Range Interpretation Comments SODIUM (BEAKER) (test code = 381) 133 meq/L 136-145 L TEMP-35.7CPOTASSIUM-STAT [id number] 12:59:00 Test Item Value Reference Range Interpretation Comments POTASSIUM (BEAKER) (test code = 3.4 meq/L 3.6-5.5 L 379) TEMP-35.7CGLUCOSE-STAT [id number] 12:59:00 Test Item Value Reference Range Interpretation Comments GLUCOSE RANDOM (BEAKER) (test code 193 mg/dL 70-110 H = 652) TEMP-35.7CHGB/HCT (H&H) - STAT [id number] 12:59:00 Test Item Value Reference Range Interpretation Comments HEMOGLOBIN (BEAKER) (test code = 8.1 g/dL 12.0-15.0 L 410) HEMATOCRIT (BEAKER) (test code = 24.0 % 36.0-45.0 L 411) TEMP-35.7CBLOOD GAS, [id number] 11:41:00 Test Item Value Reference Range Interpretation [...] code = 1819) 60.0 % SODIUM NA-STAT [id number] 11:41:00 Test Item Value Reference Range Interpretation Comments SODIUM (BEAKER) (test code = 381) 131 meq/L 136-145 L POTASSIUM-STAT [id number] 11:41:00 Test Item Value Reference Range Interpretation Comments POTASSIUM (BEAKER) (test code = 3.4 meq/L 3.6-5.5 L 379) GLUCOSE-STAT [id number] 11:41:00 Test Item Value Reference Range Interpretation Comments GLUCOSE RANDOM (BEAKER) (test code 176 mg/dL 70-110 H = 652) HGB/HCT (H&H) - STAT [id number] 11:41:00 Test Item Value Reference Range Interpretation Comments HEMOGLOBIN (BEAKER) (test code = 9.2 g/dL 12.0-15.0 L 410) HEMATOCRIT (BEAKER) (test code = 27.0 % 36.0-45.0 L 411) CALCIUM, [id number] 11:41:00 Test Item Value Reference Range Interpretation Comments CALCIUM IONIZED (BEAKER) (test 1.08 mmol/L 1.12-1.27 L code = 698) PH, BLOOD (BEAKER) (test code = 7.33 1810) PH, [id number] 11:38:00 Test Item Value Reference Range Interpretation Comments PH ARTERIAL (BEAKER) (test code = 383) 7.35 7.35-7.45 POTASSIUM-STAT [id number] 09:51:00 Test Item Value Reference Range Interpretation Comments POTASSIUM (BEAKER) (test code = 2.3 meq/L 3.6-5.5 LL 379) TEMP-34.8CALCIUM, [id number] 09:50:00 Test Item Value Reference Range Interpretation Comments CALCIUM IONIZED (BEAKER) (test 1.03 mmol/L 1.12-1.27 L code = 698) PH, BLOOD (BEAKER) (test code = 7.40 1810) BLOOD GAS, [id number] 09:49:00 Test Item Value Reference Range Interpretation [...] code = 1819) 60.0 % TEMP-34.8SODIUM NA-STAT [id number] 09:49:00 Test Item Value Reference Range Interpretation Comments SODIUM (BEAKER) (test code = 381) 130 meq/L 136-145 L TEMP-34.8GLUCOSE-STAT [id number] 09:49:00 Test Item Value Reference Range Interpretation Comments GLUCOSE RANDOM (BEAKER) (test code 119 mg/dL 70-110 H = 652) TEMP-34.8HGB/HCT (H&H) - STAT [id number] 09:49:00 Test Item Value Reference Range Interpretation Comments HEMOGLOBIN (BEAKER) (test code = 11.6 g/dL 12.0-15.0 L 410) HEMATOCRIT (BEAKER) (test code = 34.0 % 36.0-45.0 L 411) TEMP-34.8CBC W/PLT COUNT & AUTO [id number] 07:16:00 Test Item Value Reference Range Interpretation [...] 0-1 PERCENT (BEAKER) (test code = 2801) [id number] 14:45:00Medical Cytology Report Case: [id number] Authorizing Provider: Dick Henriquez MD Collected: 01/18/2020 02:09 PM Ordering Location: [facility] Received: 01/18/2020 03:29 PM SERVICES Pathologist: Reinaldo Matta MD Specimen: Urine, Bladder Wash URINE, BLADDER WASHING (CYTOSPINS): - NEGATIVE FOR MALIGNANCY Signing Pathologist Direct Phone Line: [phone] signed by Reinaldo Matta MD on 01/19/2020 at 2:45 [id number] risk 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 whopresents for restaging TURBT prior to RCURINE, BLADDER WNKTOSU31 mls colorless fluid; 4 cytospinsCollected: [id number]: [id number]s Hospital of Manteca, Department of Pathology, [address] [place] [address], [facility]fpwoxSan [facility], Department of Pathology, [address] [place] [address], TyugfuSan Ramon Regional [facility], Department of Pathology, [address] [place] [address], ZSJCAX [id number] 13:07:00Surgical Pathology Report Case: [id number] Authorizing Provider: Dick Henriquez MD Collected: 01/18/2020 02:31 PM Ordering Location: [facility] Received: 01/18/2020 03:17 PM SERVICES [...] - NONKERATINIZING SQUAMOUS MUCOSA, NEGATIVE FOR MALIGNANCYC. UR INARY BLADDER, 3 O'CLOCK BLADDER NECK, BIOPSY, - UROTHELIAL CARCINOMA, HIGH GRADE (WHO GRADE 3), INVASIVE INTO LAMINA PROPRIA. - MUCOSA AND MUSCULARIS PROPRIA ARE ABSENTD. URINARY BLADDER, 6 O'CLOCK BLADDER NECK, BIOPSY: - SQUAMOUS METAPLASIA, NEGATIVE FOR MALIGNANCYE. URINARY BLADDER, 9 O'CLOCK B LADDER NECK, BIOPSY: - SQUAMOUS METAPLASIA, NEGATIVE FOR MALIGNANCY Signing Pathologist DirectPhone Line: [phone] signed by Reinaldo Matta MD on 01/19/2020 at 1:07 PM90% of this tumor shows the plasmacytoid morphology as documented on a previous biopsy.48640 x 5 Malignant neoplasm of overlapping sites [...] is submitted in toto in A1.JONATHAN Santizo (ASCP)cmPerformed.CYTOLOGY [id number] 17:00:00 Test Item Value Reference Range Interpretation Comments CYTOLOGY RESULT POINTER See Separate Report (FAINA) (test code = 2629) XR LUMBAR SPINE 2 VIEWS AP AND [id number] 21:07:27Lumbar Spine Radiographs: 3 views HISTORY: PainCOMPARISON: None available. DISCUSSION:Some of the osseous structures are partially obscured by stool and bowelgas. There are five non-rib bearing lumbar vertebral bodies.The alignment of the spine is within normal limits.No displaced fracture or compression deformity is identified.Vertebral body heights are maintained.Multilevel mild to moderate de generative changes, marked by intervertebraldisc space narrowing and osteophytosis.Mild L5-S1 facet arthropathy. IMPRESSION:No acute radiographic abnormality.Multilevel muln-wy-woxnbyfs degenerative changes. Signed by: Dr. Ad Landa MD on 01/06/2020 4:07 PM Luiz, Rad Results In - 01/06/2020 4:10 PM CDTLumbar Spine Radiographs: 3 views HISTORY: PainCOMPARISON: None available.DISCUSSION:Some of the osseous structures are partially obscured by stool and bowelgas.There are five non-rib bearinglumbar vertebral bodies.The alignment of the spine is within normal limits.No displaced fracture or c ompression deformity is identified.Vertebral body heights are maintained.Multilevel mild to moderatedegenerative changes, marked by intervertebraldisc space narrowing and osteophytosis.Mild L5-S1 facet arthropathy.IMPRESSION:No acute radiographic abnormality.Multilevel jvwm-eu-tfnshcpf degenerative changes.Signed by: Dr. Ad Landa MD on 01/06/2020 4:07 [facility] 2019-12-20 14:41:02 Test Item Value Reference Range Interpretation Comments WHITE BLOOD CELL COUNT See_Comment H [Aut omated message] (test code = 56419-9) The sy stem which generated this result transmitted ref erence range: 3.5 - 10 .0 K/UL. The refer ence range was not u sed to interpret this result as normal/abnor mal. RED BLOOD CELL COUNT See_Comment [Autom ated message] (test code = 45150-6) The sy stem which generated this result transmitted ref erence range: 3.80 - 5 .20 M/UL. The refer ence range was not u sed to interpret this result as normal/abnor mal. HEMOGLOBIN (test code See_Comment [Auto mated message] = 718-7) The system [employer] generated this result transmitted ref erence range: 12.0 - 1 6.0 G/DL. The refer ence range was not u sed to interpret this result as normal/abnor mal. HEMATOCRIT (test code 38.3 % 35-46 = 70797-5) MEAN CORPUSCULAR 90.1 fL 80-99 VOLUME (test code = 37961-3) MEAN CORPUSCULAR 29.4 PG 25-34 HEMOGLOBIN (test code = 23119-8) MEAN CORPUSCULAR See_Comment [Automated message] HEMOGLOBIN CONC (test The sy stem which code = 51031-7) generated th is result transmitted ref erence range: 31.0 - 3 6.0 G/DL. The refer ence range was not u sed to interpret this result as normal/abnor mal. RED CELL DISTRIBUTION 18.1 % 11.5-15 H WIDTH (test code = 79756-0) NEUTROPHILS % (test 51 % 40-75 SEGMENTED code = 90710-0) NEUTROPHILS, MANUAL DIFFERENTIAL. BANDS % (test code = 5 % 0-8 26509-0) LYMPHOCYTES % (test 32 % 20-45 code = 78157-7) MONOCYTES % (test code 9 % 4-12 = 33738-9) EOSINOPHILS % (test 1 % 0-7 code = 01645-8) BASOPHILS % (test code 1 % 0-2 = 81116-6) METAMYELOCYTES PERCENT 1 % See_Comment H [Aut omated message] (test code = 01258-0) The sy stem which generated this result transmitted ref erence range: 0.0. The reference range was not used to int erpret this result as normal/abnormal . PLATELET COUNT (test See_Comment [Autom ated message] code = 60220-1) The system [facility] generated this result transmitted ref erence range: 130 - 40 0 K/UL. The refer ence range was not u sed to interpret this result as normal/abnor mal. NEUTROPHILS ABSOLUTE See_Comment [Autom ated message] COUNT (test code = The syste m which 70165-5) generated this result transmitted ref erence range: 1.50 - 7 .50 K/UL. The refer ence range was not u sed to interpret this result as normal/abnor mal. COMMENTS (test code = (NOTE) FEW 91877-3) ELLIPTOCYTES SLIGHT ANISOC YTOSIS PLAT ELETS APPEAR ADEQUATE PLATELETS APPEAR NORMAL GIULIA TING PERFORMED AT [facility], [place] [place] [address] CLIA NO . [id number] Unless Otherwis e Indicated, All Testing Perform ed At: [facility], [address] [place] [address] Laboratory Dire ctor: Robbie de los santos M.D. CLI A Number [id number] [place] [id number] BALBIR (test code = BALBIR) PT FASTING Lab Interpretation Abnormal (test code = 64513-6) [facility] [id number] 14:32:27 Test Item Value Reference Range Interpretation Comments GLUCOSE (test code = See_Comment [Autom ated message] 2345-7) The system [employer] generated this result transmitted ref erence range: 70 - 99 MG/DL. The reference r anil was not used to interpret this result as normal/abnor mal. BLOOD UREA NITROGEN See_Comment [Automa tom message] (test code = 3091-6) The s tem which generated this result transmitted ref erence range: 8 - 23 M G/DL. The reference r anil was not used to interpret this result as normal/abnor mal. CREATININE (test code See_Comment [Auto mated message] = 2160-0) The system [employer] generated this result transmitted ref erence range: 0.60 - 1 .30 MG/DL. The refe rence range was not u sed to interpret this result as normal/abnor mal. EGFR AA (test code = See_Comment [Autom ated message] 31387-4) The system [employer] generated this result transmitted ref erence range: >60 ML/MIN/1.73. Th e reference range was not used to int erpret this result as normal/abnormal . EGFR (test code = See_Comment [Automate d message] 90932-0) The system [employer] generated this result transmitted ref erence range: >60 ML/MIN/1.73. Th e reference range was not used to int erpret this result as normal/abnormal . BUN/CREAT RATIO (test See_Comment [Auto mated message] code = 3097-3) The system [facility] generated this result transmitted ref erence range: 6 - 28 R ATIO. The reference r anil was not used to interpret this result as normal/abnor mal. SODIUM (test code = See_Comment [Automa tom message] 2951-2) The system [facility] generated this result transmitted ref erence range: 133 - 14 6 MEQ/L. The refe rence range was not u sed to interpret this result as normal/abnor mal. POTASSIUM (test code See_Comment [Autom ated message] = 2823-3) The system [facility] generated this result transmitted ref erence range: 3.5 - 5. 4 MEQ/L. The refe rence range was not u sed to interpret this result as normal/abnor mal. CHLORIDE (test code = See_Comment [Auto mated message] 2075-0) The system [facility] generated this result transmitted ref erence range: 100 - 11 2 MEQ/L. The refe rence range was not u sed to interpret this result as normal/abnor mal. CO2 (test code = See_Comment [Automated message] 1963-8) The system [facility] generated this result transmitted ref erence range: 21 - 30 MEQ/L. The reference r anil was not used to interpret this result as normal/abnor mal. CALCIUM (test code = See_Comment [Autom ated message] 92357-2) The system [facility] generated this result transmitted ref erence range: 8.5 - 10 .5 MG/DL. The refe rence range was not u sed to interpret this result as normal/abnor mal. PROTEIN TOTAL (test See_Comment [Automa tom message] code = 8095-2) The system [facility] generated this result transmitted ref erence range: 6.1 - 8. 1 G/DL. The reference r anil was not used to interpret this result as normal/abnor mal. ALBUMIN (test code = See_Comment [Autom ated message] 09668-7) The system [facility] generated this result transmitted ref erence range: 3.4 - 4. 8 G/DL. The reference r anil was not used to interpret this result as normal/abnor mal. GLOBULINS, SERUM, See_Comment [Automate d message] TOTAL (test code = The syste m which 19908-8) generated this result transmitted ref erence range: 1.9 - 3. 7 G/DL. The reference r anil was not used to interpret this result as normal/abnor mal. A/G RATIO (test code See_Comment [Autom ated message] = 1759-0) The system [facility] generated this result transmitted ref erence range: 1.0 - 2. 6 RATIO. The refe rence range was not u sed to interpret this result as normal/abnor mal. BILIRUBIN TOTAL (test See_Comment [Auto mated message] code = 1974-2) The system [facility] generated this result transmitted ref erence range: <=1.2 MG /DL. The reference r anil was not used to interpret this result as normal/abnor mal. ALKALINE PHOSPHATASE 99 U/L 30-132 (test code = 6768-6) AST (SGOT) (test code 24 U/L 7-56 = 1920-8) ALT (SGPT) (test code 17 U/L 3-47 TESTING = 1744-2) PERFORMED AT [facility] PATH[facility], [place] [address] [facility] [address] [place] [address] CLIA NO. [id number] Unless Otherwis e Indicated, All Testing Performed At: [facility], [address] [place] [address] Laboratory Dire ctor: Robbie de los santos M.D. CLIA Num alejandro [id number] Cap Accreditation N o. [id number] BALBIR (test code = BALBIR) PT FASTING [facility] H[id number] 14:32:13 Test Item Value Reference Range Interpretation Comments MAGNESIUM (test code See_Comment T ESTING PERFORMED = 41849-3) AT [facility], [place] [address] [facility] [address] [place] [address] CLIA NO. [id number] Unless Otherwis e Indicated, All Testing Performed At: [facility] [employer] [facility], [address] [place] [address] Tape Maker: Robbie Wagner M.D. IA Number [id number] [facility] [address]-01 [Auto mated message] The sy stem which generated this result transmit tom reference range : 1.6 - 2.6 MG/DL. The reference range was not used to interpr et this result as normal/abnormal . BALBIR (test code = PT FASTING BALBIR) [facility] HospitalMYOCARD PERFUSION - [id number] 20:00:41: 1. Normal myocardial perfusion study.2. No Regadenoson ( Lexiscan) induced perfusion defects suggestive of ischemia3. Normal LV size, EF of 73 % with normal regional wall motion and left ventricular thickening. Interpreting Physician: Bakari Lai MD Ht Readings from Last 1 Encounters: 12/14/19 5' 2" (1.575 m) Wt Readings from Last 1 Encounters: 12/14/19 155 lb (70.3 kg) Referring Provider: Manny Wise MD Indication: 1. Essential hypertension 2. Dyslipidemia 3. Precordial pain 4. Impaired mobility 5. Malignant neoplasm of overlapping sites of bladder (HCCode) 6. HUBBARD (dyspnea on exertion) Procedure: Pharmacologic stress testing was performed with intra-venous Regadenoson (Lexiscan) 0.4 mg over 10 seconds. The heart rate was 50 at baseline and ainsley to 108 beats per minute during the regadenoson (Lexiscan) infusion. Blood pressure was 133/78 mm Hg at baseline and 103/59 at peak pharmacologic effect. The stress was adequate. The patient did develop significant symptoms, which included flushing and dyspnea. 50 mg IV aminophylline administered. The resting electrocardiogram demonstrated sinus bradycardia with no AV Block and no arrhythmias. Repolarization at baseline was normal.With the pharmacologic stressor, there were no ischemic EKG changes noted. Arrhythmias did not occur. Myocardial perfusion imaging was performed at rest approximately 60 minutes per protocol following the intravenous injection of 5.46 mCi of Tc-99m tetrofosmin. At peak pharmacologic effect, the patient was intravenously injected with 15.63 mCi of Tc-99m tetrofosmin. Gating post-stress tomographic imaging was performed approximately 60 minutes after stress. Findings: The study quality is adequate. Noattenuation artifact was present. Left ventricular cavity is noted to be of normal size at stress and at rest. There is not evidence of extra cardiac activity. There is normal tracer distribution during stress and at rest. Quantitative results: Summed Stress Score=0; Summed Rest Score=0; Summed Differ ence Score 0 The post stress left ventricular ejection fraction is 73 % with normal regional wall motion and left ventricular thickening. The left ventricle is normal in size. TID Ratio: Normal Bakari Lai MD - 12/19/2019 3:00 PM CDT Ht Readings from Last 1 Encounters: 12/14/19 5' 2" (1.575 m) Wt Readings from Last 1 Encounters: 12/14/19 155 lb (70.3 kg) Referring Provider: Manny Wise MDIndication: 1. Essential hypertension 2. Dyslipidemia 3. Precordial pain 4. Impaired mobility 5. Malignant neoplasm of overlapping sitesof bladder (HCCode) 6. HUBBARD (dyspnea on exertion) Procedure: Pharmacologic stress testing was performed with intra-venous Regadenoson (Lexiscan) 0.4 mg over 10 seconds. The heart rate was 50 at baseline and ainsley to 108 beats per minute during the regadenoson (Lexiscan) infusion. Blood pressure was 133/78 mm Hg at baseline and 103/59 at peak pharmacologic effect. The stress was adequate. The patient did develop significant symptoms, which included flushing and dyspnea. 50 mg IV aminophylline administered.The resting electrocardiogram demonstrated sinus bradycardia with no AV Block and no arrhythmias. Repolarization at baseline was normal. With the pharmacologic stressor, there were no ischemic EKG changes noted. Arrhythmias did not occur.Myocardial perfusion imaging was performed at rest approximately 60 minutes per protocol following the intravenous injection of 5.46 mCi of Tc-99m tetrofosmin. At peak pharmacologic effect, the patient was intravenously injected with 15.63 mCi of Tc-99m tetrofosmin. Gating post-stress tomographic imaging was performed approximately 60 minutes after stress.Fin dings:The study quality is adequate.No attenuation artifact was present. Left ventricular cavity is noted to be of normal size at stress and at rest. There is not evidence of extra cardiac activity. There is normal tracer distribution during stress and at rest.Quantitative results: Summed Stress Score=0; Summed Rest Score=0; Summed Difference Score 0The post stress left ventricular ejection fraction is 73 % with normal regional wall motion and left ventricular thickening.The left ventricle is normalin size. TID Ratio: NormalIMPRESSION:1. Normal myocardial perfusion study.2. No Regadenoson ( Lexiscan) induced perfusion defects suggestive of ischemia3. Normal LV size, EF of 73 % with normal regional wall motion and left ventricular thickening.Interpreting Physician: Bakari Lai MDU[facility], [id number] 14:27:34REPORT Pat.Name: ALEXANDRIA MERCADO.ID: [id number] .Date: 12/19/2019 Refer.MD: MANNY WISE Exam Time: 9:08:00 AM Study Type:Routine Echo Height: 62in Weight: 155lb BSA: 1.72 m2 Age: 2 1945,74Y Sex: FEMALE BP: 138/78 HR: 55 bpmSonogrphr: BEENA Morelos Echo Event ID:[id number] EPC Order ID: [id number] Reason for Study:Cardiac evaluation, LV function assessmentHistory / Clinical:HTN, chest pain Pr ocedures:[id number],COMPLETE Race: ++++++++++++++++++++++++++++++++++++SUMMARY:++++++++ ++++++++++++++++++++++++++++1. Left ventricular chamber size (by vol index) is normal. No evidenceofLV hypertrophy. All of the LV segments contract normally. Global LVsystolic function is normal. LVEFby quantitative assessment is normal(> 60%). Grade 1 diastolic dysfunction (impaired relaxation andlow- normal LA pressure). 2. The right ventricular chamber size and systolic function are withinnormal limits. 3. No significant valvular abnormality 4. Estimated Peak systolic PA pressure is 25-30 mm Hg. No prior exam available for comparison. ++++++++++++++++++++++++++++++++++++FINDINGS:+++++++++++ +++++++++++++++++++++++++ Rhythm/BP: Sinus bradycardia during the exam.LV: All of the LV segments contract normally. Global LV systolic function is normal. Left ventricular chamber size(by vol index) is normal. No evidence of LV hypertrophy. LVEF by quantitative assessment is normal (> 60%). Grade 1 diastolic dysfunction (impaired relaxation and low-normal LA pressure).LA: LA size is normal.RV: The right ventricular chamber sizeand systolic function are within normal limits.RA: RA cavity size is normal.AV: No evidence of aortic stenosis. A trace of aortic regurgitation. Tri-leaflet Aortic Valve.MV: Mild MV leaflet thickening. A trace of mitral regurgitation.TV: Normal TV structure and function. Mild tricuspid regurgitation. Estimated Peak systolic PA pressure is 25-30 mm Hg.PV: A trace of pulmonary regurgitation. Normal PV structure and function by limited views and Doppler.AO: Aortic root size (Sinus of Valsalva diameter) is normal.Peric camila: No pericardial effusion is visualized.Systemic Veins: The estimated RA pressure by IVC dynamics0-5 mmHg.Comparison: No prior exam available for comparison.Quality: Technically adequate exam. ++ ++++++++++++++++++++++++++++++++++MEASUREMENTS:+++++++++++++++++++++++++++++++++ +++ 2D Left Ventricle LVIDd 5.1 cm (3.6-5.2) ESV (BP) 29.6 cc Index 17.2 cc/m2 LVIDs 3 cm (2.3- 3.9) EF (BP) 66 % LV%fs 42.2 % (18-42) LV SV BP 57.5 cc EDV (BP) 87.1 cc Index 50.6 cc/m2 Left Atrium LA a-p 3.4 cm LAESV (BP) 59.6 cc Index 34.7 cc/m2 LA Biplane [...] 0.8 Right Ventricle Right Ventricle 3.6 cm DOPPLER AV Forward Flow AV pkVel 115 cm/s (100-170) AV TVI 29.8 cm AV mnVel 80 cm/s Area (TVI) 1.9 cm2 (3- 5) AV pkPG 5 mmHg Area (Issa) 2 cm2 AV mnPG 3 mmHg MV Forward Flow MV DeTm 261 ms MV pkA 89.1 cm/s MV pkE 81.8 cm/s (60-130) MV E/A 0.9 LVOT LVOT SV 56 cc LVOT TVI 24.8 cm LVOT MnVel 72.2 cm/s LVOT PkVel 102 cm/s LVOT MnPG 2 mmHg LVOT PkPG 4 mmHg RV Sm RV Sm Issa 16.4 cm/s Left Ventricle LmLat Em 8.8 cm/s LmLat E/Em 9.3 LmSep Em 7.9 cm/s LmSep E/Em 10.3 Tricuspid Valve TV Issa 254.2 cm/s MMODE TAPSE TAPS Dim 2.5 cm Signed 12/19/2019 09:27 Bakari Vences M.D.[facility] CenterEJECTION FRACTION RESULT 2019-12-19 00:00:00 Test Item Value Reference Range Interpretation Comments Ejection Fraction (test code = 32111-2) 60 % 55-75 [facility] W/AUTO DIFF WITH [id number] 15:23:26 Test Item Value Reference Range Interpretation Comments WHITE BLOOD CELL COUNT See_Comment H [Aut omated message] (test code = 49359-0) The sy stem which generated this result transmitted ref erence range: 3.5 - 10 .0 K/UL. The refer ence range was not u sed to interpret this result as normal/abnor mal. RED BLOOD CELL COUNT See_Comment [Autom ated message] (test code = 68275-9) The sy stem which generated this result transmitted ref erence range: 3.80 - 5 .20 M/UL. The refer ence range was not u sed to interpret this result as normal/abnor mal. HEMOGLOBIN (test code = See_Comment [Au tomated message] 718-7) The system [employer] generated this result transmitted ref erence range: 12.0 - 1 6.0 G/DL. The refer ence range was not u sed to interpret this result as normal/abnor mal. HEMATOCRIT (test code = 38.5 % 35-46 52488-7) MEAN CORPUSCULAR VOLUME 86.7 fL 80-99 (test code = 21081-0) MEAN CORPUSCULAR 29.1 PG 25-34 HEMOGLOBIN (test code = 75213-2) MEAN CORPUSCULAR See_Comment [Automated message] HEMOGLOBIN CONC (test The sy stem which code = 38008-2) generated th is result transmitted ref erence range: 31.0 - 3 6.0 G/DL. The refer ence range was not u sed to interpret this result as normal/abnor mal. RED CELL DISTRIBUTION 16.2 % 11.5-15 H WIDTH (test code = 30296-1) NEUTROPHILS % (test 48 % 40-75 SEGMENTED code = 05591-0) NEUTROPHILS, MANUAL DIFFERENTIAL. BANDS % (test code = 8 % 0-8 89322-1) LYMPHOCYTES % (test 30 % 20-45 code = 20076-3) MONOCYTES % (test code 7 % 4-12 = 86403-6) EOSINOPHILS % (test 1 % 0-7 code = 35880-0) BASOPHILS % (test code 4 % 0-2 H = 45670-7) MYELOCYTES % (test code 2 % See_Comment H [Au tomated message] = 03709-3) The system [employer] generated this result transmitted ref erence range: 0.0. The reference range was not used to int erpret this result as normal/abnormal . PLATELET COUNT (test See_Comment [Autom ated message] code = 77703-8) The system [employer] [facility] generated this result transmitted ref erence range: 130 - 40 0 K/UL. The reference r anil was not used to interpret this result as normal/abnor mal. COMMENTS (test code = (NOTE) FEW 29899-7) REACTIVE LYMPHO CYTES SLIGHT ANISOCYTOSIS SLIGHT POLYCHR OMASIA FEW STOMATOCYTES PLATELETS APPE AR ADEQUATE PLATELETS APPEA R NORMAL GIULIA TING PERFORMED AT [facility], [place] [address] [place] [address] CLIA NO. [id number] Unless Otherwis e Indicated, All Testing Performed At: [facility], [address] [facility], [place] [address] Laboratory Dire ctor: Robbie de los santos M.D. CLIA Num alejandro [id number] Cap Accreditation N o. [id number] Lab Interpretation Abnormal (test code = 94055-4) [facility]EL C[facility],CENTRAL INST [id number] 20:29:00 IMPRESSION: Insertion of right-sided power-injectable single-lumen tunneled chest port, with catheter tip in the expected location of the cavoatrial junction. Plan: The port may be used immediately. ___ PROCEDURE SUMMARY:- Venous access with ultrasound guidance- Tunneled port insertion under fluoroscopic guidance- Additional procedure(s): None Pre-procedureConsent: Informed consent for the procedure including risks, benefits and alternatives was obtained and time-out was performed [...] fluoroscopic guidance. The port was not sutured intothe pocket. Catheter tip location was fluoroscopically verified and a permanent image was stored.Port placed: BardCatheter size (Thai): 6Catheter flush: Heparin (100 units/mL) ClosureThe access site and incision were closed and sterile dressing(s) were applied.Access site closure technique: Tissue ad hesiveIncision closure technique: Absorbable suture and tissue adhesivePatient discharged from procedure suite with device accessed: No ContrastContrast agent: NoneContrast volume (mL): N/A Radiation DoseFluoroscopy time (minutes): 0.3 Reference air kerma (mGy): 2.6 Additional DetailsAdditional description of procedure: NoneEquipment details: NoneSpecimens removed: NoneEstimated blood loss (mL): Less than 10Standardized report: SIR_Port_v3 AttestationSigner name: Madalyn Hatfield attest that I was present for the entire procedure. I reviewed the stored images and agree with the report as written. Signed: Madalyn Nicole Verified Date/Time: 11/01/2019 15:29:20 Reading Location: [place] [address] AngioBody Reading Room L REPORT PROCEDURE: Venous port placement Procedural PersonnelAttending physician(s):Licha Rojas physician(s): Katy Rubio physician(s): NonePrimary Senior Windows Systems Administrator(s): Neema Samano MD Pre-procedure diagnosis: Bladder cancerPost-procedure diagnosis: SameIndication: Administration of chemotherapyAdditional clinical history: None Complications: No immediate complications. Luiz, Rad Results In - 11/01/2019 3:31 PM CDTFINAL REPORT PROCEDURE: Venous port placement Procedural PersonnelAttending physician(s): Licha Rojas physician(s): Katy Garrison physician(s): NonePrimary Senior Windows Systems Administrator(s): Neema Samano MD Pre-procedure diagnosis: Bladder cancerPost-procedure diagnosis: SameIndication: Administration of chemotherapyAdditional clinical history: None Complications: No immediate complications. IMPRESSIONIMPRESSION: Insertion of r ight-sided power-injectable single-lumen tunneled chest port, with catheter tip in the expected location of the cavoatrial junction. Plan: The port may be used immediately. PROCEDURE SUMMARY:- Venous access with ultrasound guidance- Tunneled port insertion under fluoroscopic guidance- Additional procedure(s): None Pre- procedureConsent: Informed consent for the procedure including risks, benefits and alternatives was obtained and time-out was performed prior to the procedure.Preparation (MIPS): The site was prepared and draped using allelements of maximal sterile barrier technique including sterile [...] anesthesia was administered. The vessel was sonographically eval uated and determined to be patent. Real time [...] permanent image was stored.Port placed: BardCatheter size (Thai): 6Catheter flush: Heparin (100 units/mL) ClosureThe access [...] 10Standardized report: SIR_Port_v3 AttestationSigner name: Madalyn Hatfield attest that I was present for the entire procedure. I reviewed the stored images and agree with the report as written. Signed: Madalyn Nicole MDReport Verified Date/Time: 11/01/2019 15:29:20 Reading Location: [place] [address] Angio Body Reading Room [facility] CENTRAL INS W/PORT [id number] 15:29:00Reason for Exam:- >malignant neoplasm of overlapping sites of bladderFINAL REPORT PROCEDURE: Venous port placement Procedural PersonnelAttending ysician(s): Madalyn Nicole MDFellbetsy physician(s): Katy Rubio physician(s): NonePrimary Senior Windows Systems Administrator(s): Neema Samano MD Pre-procedure diagnosis: Bladder cancerPost-procedure [...] was performed prior to the procedure.Preparation (MIPS): T he site was prepared and draped using all [...] permanent image was stored.Port placed: BardCatheter size (Thai): 6Catheter flush: Heparin (100 units/mL) ClosureThe access [...] MDReport Verified Date/Time: 11/01/2019 15:29:20 Reading Location: [facility] P048 Angio Body Reading Room [id number] 15:22:00 Test Item Value Reference Range Interpretation Comments PARTIAL THROMBOPLASTIN See_Comment [Aut omated message] TIME (test code = 3173-2) Th e system which generated this result transmitted ref erence range: 22.5 - 3 6.0 seconds. The re ference range was not u sed to interpret this result as normal/abnor mal. [facility] HospitalPROTIME-[id number] 15:21:00 Test Item Value Reference Range Interpretation Comments PROTIME (test See_Comment [Automated code = 21864-1) message] The system which generated this result transmit tom reference range : 11.9 - 14.2 seconds. The reference range was not used to interpret this result as normal/abnormal . INR (test code See_Comment [Automated = 39172-3) message] The system which generated this result transmit tom reference range : <=5.9. The reference range was not used to interpret this result as normal/abnormal . BALBIR (test code Effective 12/15/2018: = BALBIR) PT Reference Range ChangeNew: 11.9-14.2 Previous: 11.7-14.7RECOMMENDED COUMADIN/WARFARIN INR THERAPY RANGESSTANDARD DOSE: 2.0-3.0 Includes: PROPHYLAXIS for venous thrombosis, systemic embolization; TREATMENT for venous thrombosis and/or pulmonary embolus.HIGH RISK: Target INR is 2.5-3.5 for patients wiht mechanical heart valves. [facility] HospitalAPTT2020-04-14 10:22:00 Test Item Value Reference Range Interpretation Comments PARTIAL THROMBOPLASTIN TIME 29.5 seconds 22.5-36.0 (BEAKER) (test code = 760) PROTHROMBIN TIME/[id number] 10:21:00 Test Item Value Reference Range Interpretation [...] mechanical heart valves.CBC W/PLT COUNT & AUTO [id number] 09:53:00 Test Item Value Reference Range Interpretation [...] 0-1 PERCENT (BEAKER) (test code = 2801) CT CHEST W [id number] 18:26:00Impression:No evidence of metastatic disease in the chest. Signed: Davide Delatorreepgerald VerifiedDate/Time: 10/27/2019 13:26:23 Reading Location: [address] Ortho Consult Reading Room L REPORT CTChest with contrast History:Malignant neoplasm of bladder Comparison:none [...] partially imaged abdomen. No aggressive osseous lesion. Liuz, Rad Results In - 10/27/2019 1:28 PM CDTFINAL REPORT [...] patient size, and/or use of iterative reconstruction te chnique. Findings:No mediastinal or hilar lymphadenopathy. Normal size heart. No pericardial effusion. No thoracic aortic aneurysm or dissection. No central pulmonary arterial filling defect. Patent central airways. No pleural effusion or pneumothorax. Mild biapical lung scarring. The lungsare otherwise clear. No significant findings in the partially imaged abdomen. No aggressive osseous lesion. IMPRESSIONImpression:No evidence of metastatic disease in the chest. Signed: Davide Delatorre Verified Date/Time: 10/27/2019 13:26:23 Reading Location: [address] Ortho Consult Reading [facility], WITH IV [id number] 13:26:00FINAL REPORT CT Chest with contrast History:Malignant neoplasm of bladder Comparison:none Technique: serial axial imaging was performed following up to 100cc of non ionic iodinated intravenous contrast as per departmental protocol. Multiplanar images are reconstructed and reviewed when indicated. This CT examination is performed using one or more of the following dose reducti on techniques: Automated exposure control, adjustment of the [...] metastatic disease inthe chest. Signed: Davide Delatorre Verified Date/Time: 10/27/2019 13:26:23 Reading Location: [facility] C0[facility] Ortho Consult Reading Room SURGICAL PATHOLOGY REPORT 2019-10-17 19:52:00 Test Item Value Reference Range Interpretation Comments CASE REPORT (test code Surgical Pathology = 23487) Report Case: [id number] Authorizing Provider: Dick Henriquez MD Collected: 10/14/2019 09:26 AM Ordering Location: [facility] PERIOPERATIVE Received: 10/14/2019 11:24 AM SERVICES Pathologist: Reinaldo Matta MD Specimens: A) - Bladder Biopsy, Right Wall, right posterior lateral wall [...] blue light negative G) - Bladder Biopsy, Trigone, trigone, blue light negative H) - Bladder Biopsy, Right Wall, right posterior wall, previous resection site DIAGNOSIS (test code = A. 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 No surface CIS is seen on any of the slides. It would be important in this case to consider the possibility of metastatic breast carcinoma which can mimic plasmacytoid variant of urothelial cancer, especially since there is no associated urothelial carcinoma in situ in this case. CPT (test code = 45202 X 7, 89952 91544) CLINICAL HISTORY (test Preop diagnosis: code = 3131) Malignant neoplasm of overlapping sites of bladder. SPECIMEN SOURCE (test A. Bladder biopsy, code = 2228) right wall; B. Bladder biopsy, right wall; C. Bladder biopsy, right wall; D. Bladder biopsy; E. Bladder biopsy; F. Bladder biopsy, left wall; G. Bladder biopsy, trigone; H. Bladder biopsy, right wall GROSS DESCRIPTION A. Received in formalin (test code = 824) labeled with the patient's name, accession number [...] a 0.2 x 0.1 x 0.1 cm buck-pink tissue fragment which [...] submitted in toto in F1. G. Received in formalin labeled [...] x 1.1 x 0.3 cm aggregate of buck-pink rubbery tissue which is entirely submitted in H2. PA/pl MICROSCOPIC Performed. DESCRIPTION (test code = 819) [id number] 14:52:00Surgical Pathology Report Case: [id number] Authorizing Provider: Dick Henriquez MD Collected: 10/14/2019 09:26 AM Ordering Location: [facility] PERI[facility] Received: 10/14/2019 11:24 AM SERVICES [...] blue light negative G) - Bladder Biopsy, Trigone, trigone, blue light negative H) - Bladder [...] CHANGE SEEN Signing Pathologist Direct Phone Line: [phone] signed by Reinaldo Matta MD on 10/17/2019 at 2:52 PMThe tumor is 90% of the plasmacytoid type. No surface CIS is seen on any of the slides. It would be important in this case to consider the possibility of metastatic breast carcinoma which can mimic plasmacytoid variant of urothelial cancer, especially since there is no associated urothelial carcinoma in situ in this case. [id number] X 7, [id number] diagnosis: Malignant neoplasm of overlapping sites of bladder. A. Bladder biopsy, right wall; B. Bladder biopsy, right wall; C. Bladder biopsy, right [...] x 1.1 x 0.3 cm aggregate of buck-pink rubbery tissue which is entirely submitted in H2. PA/pl Performed.RAD, CHEST, 2 [id number] 09:24:00Reason for Exam:->C67.8FINAL REPORT CHEST RADIOGRAPH - 2 VIEWS INDICATION: C67.8, malignant neoplasmof bladder at overlapping sites. COMPARISON: None FINDINGS:LINES: [...] MDReport Verified Date/Time: 10/13/2019 09:24:28 Reading Location: [facility] Reading Room [address] [place] [address] CT, ABDOMEN 2019-10-12 16:53:00CT UROGRAMFINAL REPORT CT of the abdomen [...] Bianchiort Verified Date/Time: 10/12/2019 16:53:35 Reading Location: [address] Ortho Consult Reading Room POCT URINALYSIS [id number] 00:00:00 Test Item Value Reference Range Interpretation Comments COLOR UA (test code = 5778-6) Yellow YELLOW/STRAW CLARITY UA (test code = 94596-1) Clear CLEAR GLUCOSE UA (test code = 5792-7) Negative NEGATIVE BILIRUBIN UA (test code = 5770-3) Negative NEGATIVE KETONES UA (test code = 49956-3) Negative NEGATIVE SPECIFIC GRAVITY UA (test code = 1.005-1.035 5811-5) BLOOD UA (test code = 5794-3) Negative NEGATIVE PH UA (test code = 5803-2) 5-9 PROTEIN UA (test code = 5804-0) Trace NEGATIVE UROBILINOGEN UA (test code = 0.02 E.U/DL NORMAL MG/DL 5818-0) LEUKOCYTE ESTERASE UA (test code Negative NEGATIVE = 5799-2) NITRITE UA (test code = 5802-4) Negative NEGATIVE REDUCING SUBSTANCES URINE (test code = 95599-0) [facility]
[2021-06-19] MEDS ORDERED: ATORVASTATIN 40 MG TAB PO SCH (21:00)
[2021-06-19] MEDS ORDERED: LORAZEPAM 1 MG TABLET PO PRN (21:22)
[2021-06-19] MEDS ORDERED: ACETAMINOPHEN 500 MG TAB PO PRN (21:27)
[2021-06-19 22:36] LABS: Urine Appearance TURBID (Clear); Urine Bilirubin NEGATIVE (Negative); Urine Blood 2+ (Negative); Urine Color YELLOW (Yellow); Urine Glucose NEGATIVE (Negative); Urine Protein NEGATIVE (Negative); Urine Urobilinogen 0.2 mg/dL (0.2-1.0)
[2021-06-19] MEDS: NITROFURAN MACRO 100 MG CAP PO SCH (22:45)
[2021-06-19] MEDS: ATORVASTATIN 40 MG TAB PO SCH (22:45)
[2021-06-19] MEDS: GABAPENTIN 300 MG CAP PO SCH (22:45)
[2021-06-19 23:25] LABS: Urine Bacteria >50 /HPF (<20); Urine RBC <5 /HPF (NONE SEEN)
[2021-06-20 04:56] LABS: Absolute Lymphocytes (CBC) 1.9 K/uL (0.7-4.9); Basophils % 0.7 % (0-1.3); Hematocrit 34.6 % (36.0-45.0); Lymphocytes % 24.2 % (15.3-44.8); MPV 8.9 fL (7.6-11.3); RBC Red Blood Cell Count 3.82 M/uL (3.86-4.86)
[2021-06-20 05:29] LABS: Albumin 2.6 g/dL (3.4-5.0); Potassium 3.5 mmol/L (3.5-5.1); Prealbumin 13.4 mg/dL (20-40)
[2021-06-20] MEDS: ENOXAPARIN 40 MG/0.4 ML SQ SCH (06:59)
[2021-06-20] MEDS: PANTOPRAZOLE 40MG TABLET PO SCH (07:00)
[2021-06-20] MEDS: LEVOTHYROXINE SOD 0.112 MG TAB PO SCH (07:00)
[2021-06-20] MEDS ORDERED: INFLUENZA VACCINE (for 6+ mo) 0.5 ML DOSE IMVAC ONE (08:00)
[2021-06-20] MEDS: ASPIRIN 325 MG TAB PO SCH ×2 (08:00→10:30)
[2021-06-20] MEDS: GABAPENTIN 300 MG CAP PO SCH ×3 (08:26→20:48)
[2021-06-20] MEDS: NITROFURAN MACRO 100 MG CAP PO SCH ×2 (08:28→20:48)
[2021-06-20] MEDS: ESCITALOPRAM 20 MG TAB PO SCH (08:28)
[2021-06-20] MEDS: OLANZapine 2.5 MG TAB PO SCH (10:30)
[2021-06-20] MEDS: ASPIRIN EC 81 MG TAB PO SCH (13:27)
--- NOTE | 2021-06-20 14:02 | R.HP ---
HISTORY AND PHYSICAL FACILITY: 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 board/care, assisted living, care home, transitional living) PRE-HOSPITAL LIVING WITH Family/Relatives ENCOUNTER PHYSICIAN: Dr. Patrick Smart M.D. REFERRING DOCTOR: EVITA MONTES MD DATE OF ADMISSION: 06/19/2021 18:00 (BOOTMAKER) REFERRING FACILITY [facility] HOME TYPE AND DETAILS: Type of home: single family house # of steps to enter the residence: 0 # of steps within the residence: 0 # of levels in the residence: 1 ONSET DATE: 06/16/2021 PRIMARY DIAGNOSIS-RELATED SURGERIES: N/A HISTORY OF PRESENT ILLNESS (HPI): Pt. is a 75 yo Right-handed female. On 06/16/2021 Pt. presented to [facility] with sudden onset of left-side weakness. On 06/16/2021 she was admitted to [facility] with diagnosis ACUTE ISCHEMIC R Cerebellar CVA. Her impairment category is Stroke 01 - Left Body (Right Brain) (01.1). Pre-morbidly, Pt. was independent/mod-I in Locomotion, Safety Awareness, and Social Cognition; and sh e had good Endurance, Communication, Self-Care, Sphincter Control, and Transfers Control. Currently, she has deficits of Endurance, Self-Care, Balance, Social Cognition, Safety Awareness, Loc omotion, Transfers Control, and Sphincter Control. Pt. is now referred to [facility] for acute in-patient rehabilitation in order to maximize patient's functional independence in activities of daily living, strength, ROM, and mobi lity. Patient has realistic goal of being discharged at assistance level 7-Ind to reside at Home with Fami ly/Relatives. MEDICATION ALLERGIES: No Known Drug Allergies (NKDA) ENVIRONMENTAL ALLERGIES: - Substance Allergies None Known - Other Allergies None Known PAST MEDICAL HISTORY: HTN HISTORY OF BLADDER CANCER HYPOTHYROIDISM NEUROPATHY ORAL DYSKINESIAS HISTORY OF STROKES APHASIA PNA HISTORY OF RECURRENT UTI CV DYSPHAGIA PAST SURGICAL HISTORY: BLADDER RESECTION SOCIAL HISTORY: - Home Living Family/Relatives REVIEW OF SYSTEMS: - Gen No Chills No Fatigue No Fever - Eyes No Double Vision No itchiness - ENMT No Difficulty Swallowing - CVS No Chest Discomfort No Chest Pain Fatigue No Weight Gain - Resp No Cough No Shortness of Breath - GI Continent Abdominal Pain No Constipation No Diarrhea - Continent No Kidney Pain No Painful Urination No Urinary Urgency - MSK No Joint Pain Muscle Cramps No Stiffness - Skin No Itching No Rash No Suspicious Lesions - Neuro Coordination Difficulty No Difficulty with Concentration No Memory Loss No Seizures No Weakness - Psych No Anxiety No Depression No HIV Exposure No Persistent Infections No Seasonal Allergies - Endo No Cold/Heat Intolerance No Excessive Hunger No Excessive Thirst No Excessive Urination PHYSICAL EXAM - Gen Alert and awake Lying in bed No apparent distress Oriented to: person, time, and place - Skin No breakdown No abnormalities - Eyes No abnormalities - ENMT No abnormalities - Neck No abnormalities - CVS RRR - Chest No abnormalities - Abd Soft - GI Non distended Deferred - No abnormalities - Ext No significant edema - MSK 4+/5 weakness in right upper and lower extremities - Neuro 4/5 strength right upper and lower extremities. - Psych No abnormalities VITAL SIGNS Temperature: 98.8 F SBP/DBP: 121/58 Pulse: 56 Resp: 16 NURSING: - Shower allowing shower - Bladder care per protocol - Skin care per protocol PRECAUTIONS: - Weight Bearing Precaution WBAT right LE ACTIVITIES OOB only with supervision QI SCORES: - Self-Care A. Eating 06-Independent B. Oral hygiene 03-Partial/moderate assistance C. Toileting hygiene 03-Partial/moderate assistance E. Shower/bathe self 03-Partial/moderate assistance F. Upper body dressing 03-Partial/moderate assistance G. Lower body dressing 03-Partial/moderate assistance H. Putting on/taking off footwear - Mobility A. Roll left and right 06-Independent B. Sit to lying 03-Partial/moderate assistance C. Lying to sitting on side of bed 03-Partial/moderate assistance D. Sit to stand 03-Partial/moderate assistance E. Chair/tes-gv-hgsdy transfer 03-Partial/moderate assistance F. Toilet transfer 03-Partial/moderate assistance G. Car transfer 88-Not attempted due to medical condition or safety concerns I. Walk 10 feet 03-Partial/moderate assistance J. Walk 50 feet with two turns 88-Not attempted due to medical condition or safety concerns K. Walk 150 feet 88-Not attempted due to medical condition or safety concerns L. Walking 10 feet on uneven surfaces 88-Not attempted due to medical condition or safety concerns M. 1 step (curb) 88-Not attempted due to medical condition or safety concerns N. 4 steps 88-Not attempted due to medical condition or safety concerns O. 12 steps 88-Not attempted due to medical condition or safety concerns P. Picking up object 06-Independent R. Wheel 50 feet with two turns 88-Not attempted due to medical condition or safety concerns S. Wheel 150 feet 88-Not attempted due to medical condition or safety concerns - Bladder and Bowel Bladder continence Bowel continence - Endurance Fair - Balance Fair - Safety Awareness Fair CURRENT FUNC. DEFICITS: Endurance, Balance, Safety Awareness, Self-Care, and Mobility MEDICATIONS: - Other See attached MAR (Medication Administration Record) ASSESSMENT: Pt. is a 75 yo Right-handed female.On 06/16/2021 Pt. presented to [facility] with sudden onset of left-side weakness.On 06/16/2021 she was admitted to [facility] with diagnosis ACUTE ISCHEMI C R Cerebellar CVA.Her impairment category is Stroke 01 - Left Body (Right Brain) (01.1).Pre-morbidl y, Pt. was independent/mod-I in Locomotion, Safety Awareness, and Social Cognition; and she had good Endurance, Communication, Self-Care, Sphincter Control, and Transfers Control.Currently, she has defi cits of Endurance, Self-Care, Balance, Social Cognition, Safety Awareness, Locomotion, Transfers Cont rol, and Sphincter Control.Pt. is now referred to [facility] for acute in-essie ent rehabilitation in order to maximize patient's functional independence in activities of daily whitney ng, strength, ROM, and mobility.- Rehab Goal Patient has realistic goal of being discharged at assistance level 7-Ind to reside at Home with Fami ly/Relatives. for Dementia, TBI, Stroke, or others - Physical Therapy Gait dysfunction - to improve, our physical therapists will perform initial evaluation of pt's status upon admission and devise an individualized program for Gait Training, and Wheel Chair mobility Inability to transfer - to improve, our physical therapists will perform initial evaluation of pt's s tatus upon admission and devise an individualized program for Bed mobility Need for home safety evaluation - to improve, our physical therapists will perform initial evaluation of pt's status upon admission and devise an individualized program for Home Evaluation Need in caregiver upon discharge - to improve, our physical therapists will perform initial evaluatio n of pt's status upon admission and devise an individualized program for Caregiver Training New precaution - to improve, our physical therapists will perform initial evaluation of pt's status u abad admission and devise an individualized program for Patient precaution education Edema - to improve, our physical therapists will perform initial evaluation of pt's status upon admi ssion and devise an individualized program for Elevation Training, and Lymphedema Therapy Poor balance - to improve, our physical therapists will perform initial evaluation of pt's status upo n admission and devise an individualized program for Balance Training Poor endurance - to improve, our physical therapists will perform initial evaluation of pt's status u abad admission and devise an individualized program for Endurance Training Weakness - to improve, our physical therapists will perform initial evaluation of pt's status upon ad mission and devise an individualized program for Aquatic Therapy, Neuromuscular Reeducation, and Stre ngthening Achieving independence - to improve, our physical therapists will perform initial evaluation of pt's status upon admission and devise an individualized program for Community Reintegration Activities - Occupational Therapy ADL deficits - to improve, our occupation therapists will perform initial evaluation of pt's status u abad admission and devise an individualized program for Bathing, Bed mobility, Community Reintegration , Cooking, Dressing, Eating, Fine Motor Skills, Grooming, Homemaking, Kitchen Mobility, Laundry, Essie ent Education, Safety Awareness, Splinting - Positioning, Transfers(Toilet, Tub, Shower), and Wheel C hair Management Cognitive deficits - to improve, our occupation therapists will perform initial evaluation of pt's st atus upon admission and devise an individualized program for Cognition - orientation Need for career services manager - to improve, our occupation therapists will perform initial evaluation of pt's s tatus upon admission and devise an individualized program for Caregiver Training Weakness - to improve, our occupation therapists will perform initial evaluation of pt's status upon admission and devise an individualized program for Aquatic Therapy, Balance, Endurance, UE ROM, and U E strengthening MEDICAL PLAN: - Diet Type Start Regular - Diet - Liquid Texture Start Regular - Tube Feed Start N/A - Bladder care per protocol - Weight Bearing Precaution WBAT right LE - Skin care per protocol - Other See attached MAR (Medication Administration Record) - Diet - Solid Texture Regular - Shower shower DISCHARGE PLAN: - Estimated Length of Stay (days) 17. - Consensus on plan Discharge plan has been discussed with primary caregiver. Patient/Family is in agreement with the yarelis n. Primary caregiver is in agreement with the plan. - Patient/Family Goals Return home independently. - Planned Living Setting Upon Discharge Home, to live with Family/Relatives. Transitional Living. SIGNATURE PANEL: (BOOTMAKER)
--- NOTE | 2021-06-20 14:03 | PAPE ---
POST ADMISSION PHYSICIAN EVALUATION PATIENT: [facility] MR# [id number] REFERRING DOCTOR EVITA MONTES MD EVALUATION DATE AND TIME 06/20/2021 14:01 (HISTOPATHOLOGIST) NAME ALEXANDRIA MERCADO DATE OF 1945 AGE 75 PHONE SSN# [id number] GENDER female EVALUATING PHYSICIAN Dr. Patrick Smart M.D. ADMISSION DIAGNOSIS: ACUTE ISCHEMIC R Cerebellar CVA ONSET DATE 06/16/2021 POST-ADMISSION FUNCTIONAL/MEDICAL STATUS: - Bladder Same accident frequency: 7-Ind - No accidents in the past 7 days - Bowel Same accident frequency: 7-Ind - No accidents in the past 7 days - Walking Same score based on distance walked: 0(N/A) - Wheelchair Same score based on distance traveled: 0(N/A) STATUS CHANGE EVALUATION: No change in Functional or Medical Status is identified compared with Pre-Admission screening. PATIENT NEEDS CLOSE MEDICAL SUPERVISION BY A REHABILITATION PHYSICIAN FOR: Coordination of Treatment Team Medical and Co-Morbidity Management Pain Management PATIENT REQUIRES 24X7 REHAB NURSING FOR MEDICAL AND FUNCTIONAL MGT. OF THE FOLLOWING DEFICITS: Disease Management Medication Management Patient/Family Education Providing Safe Environment PATIENT REQUIRES INTENSIVE, COORDINATED INTERDISCIPLINARY APPROACH TO REHAB: Arranging Home Equipment/Services Discharge Planning Family Intervention/Training Physician Assistant/Case Management LIST OF IDENTIFIED AND POTENTIAL PROBLEMS: Alteration in leisure activities Bladder, Incontinence Bowel, Incontinence Infection, Actual or Potential Mobility Impaired Pain, Alteration in Comfort Self Care Deficit Skin Integrity, Actual or Potential Urinary Tract Infection (UTI), Actual or Potential RISK FOR COMPLICATIONS - N/A HTN. NEUROPATHY. HYPOTHYROIDISM. PATIENT COULD BE AT RISK FOR COMPLICATIONS FROM ADVERSE MEDICAL CONDITIONS DUE TO HIS/HER COMORBIDITI ES AND THE RIGORS OF THE INTENSIVE REHABILLITATION PROGRAM. METHODS OR INTERVENTIONS TO AVOID COMPLIC ATIONS INCLUDE: - Bleeding Stroke patients assessed for lethargy or change in status. - Infection Clinical staff to assess and manage the signs and symptoms of infection including fever, redness, war mth, etc. - Urinary Tract Infection - Aspiration Clinical staff will assess and manage coughing, drooling, congestion. - Falls Patient will be evaluated for Fall Precautions and will be placed on Fall Precautions as indicated pe r protocol. - Skin Breakdown Nursing will assess skin daily using assessment tool and will place on Skin Breakdown Precautions as indicated per protocol. - Pain Clinical staff may employ non-medication methods such as massage, distraction, decrease stimulus, etc . as needed. Clinical staff will assess patient's pain level every shift per protocol to assess and e nsure pain management effectiveness. Medications will be given and the pain level re-assessed. PRELIMINARY PLAN OF CARE: - Physical Therapy Patient needs Physical Therapy for a daily minimum of 1.5 hours at least 5 out of 7 days, to improve: Mobility, Strengthening, Transfers, Stretching, ROM, Endurance, Ability to manage stairs, Gait, and Balance. - Speech Therapy Patient needs Speech Therapy for a daily minimum of 0.5 hours at least 5 out of 7 days, to improve: S wallowing, Cognition, Language Skills, and Compensatory Strategies. - Rehabilitation Nursing Patient requires 24x7 Rehabilitation Nursing for: Pain Issues, Identifying and preventing risk factor s, Monitoring and reporting current medical conditions, Assisting with ambulation and transfer, Alyssa ting with all ADL-s, Teaching patients about disease process and medications, Family teaching, Provid ing safe environment, Bowel and Bladder Issues, Skin Integrity, and Medication Management. Patient needs Physician Assistant and/or Case Management for: Discharge Planning, Arranging Home Equipmen t or Services, and Family Interventions. - Dietary and Nutrition Services Patient needs Dietary and Nutrition Services for: Adequate Nutrition, Nutritional Supplements, and Nu tritional Education. - Occupational Therapy Patient needs Occupational Therapy for a daily minimum of 1.5 hours at least 5 out of 7 days, to impr ove Activities of Daily Living, including: Eating, Grooming, Bathing, Dressing, Toileting, Toilet Tra nsfers, Community Reintegration, Higher functional activities, Adaptive Equipment, Splinting, Househo ld Tasks, and Other activities as determined. QI SCORES: - Self-Care A. Eating 06-Independent B. Oral hygiene 03-Partial/moderate assistance C. Toileting hygiene 03-Partial/moderate assistance E. Shower/bathe self 03-Partial/moderate assistance F. Upper body dressing 03-Partial/moderate assistance G. Lower body dressing 03-Partial/moderate assistance H. Putting on/taking off footwear - Mobility A. Roll left and right 06-Independent B. Sit to lying 03-Partial/moderate assistance C. Lying to sitting on side of bed 03-Partial/moderate assistance D. Sit to stand 03-Partial/moderate assistance E. Chair/lqd-ko-nulan transfer 03-Partial/moderate assistance F. Toilet transfer 03-Partial/moderate assistance G. Car transfer 88-Not attempted due to medical condition or safety concerns I. Walk 10 feet 03-Partial/moderate assistance J. Walk 50 feet with two turns 88-Not attempted due to medical condition or safety concerns K. Walk 150 feet 88-Not attempted due to medical condition or safety concerns L. Walking 10 feet on uneven surfaces 88-Not attempted due to medical condition or safety concerns M. 1 step (curb) 88-Not attempted due to medical condition or safety concerns N. 4 steps 88-Not attempted due to medical condition or safety concerns O. 12 steps 88-Not attempted due to medical condition or safety concerns P. Picking up object 06-Independent R. Wheel 50 feet with two turns 88-Not attempted due to medical condition or safety concerns S. Wheel 150 feet 88-Not attempted due to medical condition or safety concerns - Bladder and Bowel Bladder continence Bowel continence - Endurance Fair - Balance Fair - Safety Awareness Fair POTENTIAL FUNCTIONAL GOALS FOR PATIENT TO ACHIEVE BY DISCHARGE: - Safety Precaution Patient will remain free from falls or injury at time of discharge. - Bed Mobility Patient will perform bed mobility at 4-Kia level of assistance. - Transfers Patient will complete transfers from bed to chair at 4-Kia level of assistance. - Mobility Patient will ambulate 150 ft with 4-Kia level of assistance with RW. PATIENT REHAB POTENTIAL Meg MERCADO is able and expected to receive 3 hours of individualized therapy daily on at least 5 o f every 7 days Meg MERCADO's prognosis for significant practical improvement within a reasonable period of time ap pears Good Expected level of measurable improvement will be of a practical value to Meg TOTHJESS's functional c apacity or adaptations to impairments Has a viable Discharge Plan Medically appropriate; condition is sufficiently stable to participate in intensive rehab program DISCHARGE PLAN: - Estimated Length of Stay (days) 17. - Consensus on plan Discharge plan has been discussed with primary caregiver. Patient/Family is in agreement with the yarelis n. Primary caregiver is in agreement with the plan. - Patient/Family Goals Return home independently. - Planned Living Setting Upon Discharge Home, to live with Family/Relatives. Transitional Living. CONCLUSION ON REHABILITATION NECESSITY: I have evaluated patient's pre-admission functional status and, comparing it to the patient's post-ad mission functional status now, I conclude that the pre-admission assessment was accurate. Patient's c ondition on admission supports the medical necessity of admission to IR[facility]. It is safe to proceed with patient's therapy program. SIGNATURE PANEL: (HISTOPATHOLOGIST)
[2021-06-20] MEDS: ATORVASTATIN 40 MG TAB PO SCH (20:48)
[2021-06-20] MEDS: DOCUSATE NA/SENNA CONC 1 TAB PO PRN (20:48)
--- NOTE | 2021-06-20 23:57 | HP ---
Date of Admission: 06/20/2021 Chief Complaint: Speech problem. History Of Present Illness: This is a 75-year-old pleasant female patient who lives at home with her , was life flighted to [place] on 06/16/2021 with stroke symptoms. 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 After her treatment, she was stabilized and she was transferred to our hospital to rehab floor as of last night for inpatient rehab. I saw her this morning. She denies any headache, nausea, vomiting. I have reviewed available records from outside hospital. Medications: Prior to this hospital admission, her outpatient medications list includes atorvastatin 20 mg daily at bedtime, escitalopram 20 mg p.o. daily, gabapentin 300 mg 2 times a day, levothyroxine 112 mcg p.o. daily, lorazepam 1 mg p.r.n., olanzapine 5 mg daily, omeprazole 40 mg daily, spironolactone 25 mg 1 tablet 2 times a day, and trospium 20 mg p.o. daily, vitamin B complex daily. Allergies: TO SULFA CAUSING LIP SWELLING. Review of Systems: TICKET CLERK: As mentioned above. All other systems reviewed and negative. Past Medical History: Significant for goiter, hypothyroidism, hypertension, hyperlipidemia, gastroesophageal reflux disease, chronic constipation, bladder cancer for which she received chemotherapy in October 2019 and subsequently had removal of bladder with neobladder on January 30, 2020. The patient does self- catheterization of bladder 5-6 times a day. Past medical history also significant for osteoarthritis multiple sites, anxiety, depression, insomnia, osteopenia. Past Surgical History: Cataract surgery, retinal surgery in the right eye, C- section, D and C, foot surgery and removal of bladder with neobladder on January 30, 2020. Family History: Father , had diabetes, dementia. Mother , had hypertension and breast cancer. Social History: Negative for smoking and alcohol use. Immunization History: She received her first dose of COVID-19 vaccine on August 24, 2020, second dose on September 21, 2020. Physical Examination: Vital Signs: This morning, temperature 98.1, pulse 52, respiratory rate 16, blood pressure 119/62. Height 5 feet 2 inches, weight 129 pounds. General: Awake, alert, oriented, not in distress. HEENT: Head atraumatic, normocephalic. Conjunctivae nonerythematous. Sclerae white. Mouth, no thrush or edema noted. Ears/Nose, no mass, lesion, discharge noted. Neck: Supple. No JVD, lymph nodes, bruit, thyromegaly noted. Lungs: Bilateral good equal air entry. Clear to auscultation. No rhonchi. No rales. Heart: Normal heart sounds, no murmur or gallop. Abdomen: Soft, bowel sounds normal. No guarding, rigidity, tenderness, mass, hepatosplenomegaly, distention, or bruit noted. Extremities: No leg edema. No calf tenderness. Skin: No rash, ulcer, cellulitis. Lymphatics: No lymph node enlargement in neck, supraclavicular, infraclavicular region. Neuro: No focal neurological deficit. Chest: Unremarkable. External Genitalia: Deferred. Rectal: Deferred. TICKET CLERK: Exam patient speaks very softly and slowly. She follows commands. Moves all the 4 extremities equally. No focal neurological deficit except generalized weakness present. The patient does have little bit dysarthria that is still present. Laboratory Data: White count 7.9, hemoglobin 11.2, platelets 169. Sodium 149, potassium 3.5, chloride 118, bicarb 24, BUN 22, creatinine 0.78, glucose 92. Urinalysis; 2+ blood, positive for nitrite, 2+ esterase, 10 to 20 wbc's, more than 50 bacteria. COVID-19 test negative. Impression: 1. Stroke. 2. Urinary tract infection. 3. Anemia, unspecified. 4. Hypertension. 5. Hyperlipidemia. 6. Hypothyroidism. 7. Gastroesophageal reflux disease. 8. Chronic constipation. 9. Bladder cancer. 10. Osteoarthritis, multiple sites. 11. Anxiety. 12. Depression. 13. Insomnia. Plan: We will go ahead and admit the patient to rehab floor for further evaluation and management of this problem. The patient will be seen in consultation by Dr. Smart from neurology and rehab point of view. Medications will be continued per order. The patient will receive antibiotics per order. We will follow up on urine culture. The patient will also continue to receive DVT prophylaxis per order. Details and plan of treatment discussed with her. I will see her tomorrow for followup. MARISA/MODL Voice ID: [id number] MTDD
[2021-06-21] MEDS: PANTOPRAZOLE 40MG TABLET PO SCH (06:29)
[2021-06-21] MEDS: LEVOTHYROXINE SOD 0.112 MG TAB PO SCH (06:29)
[2021-06-21] MEDS: ENOXAPARIN 40 MG/0.4 ML SQ SCH (06:41)
[2021-06-21] MEDS: ASPIRIN EC 81 MG TAB PO SCH (08:19)
[2021-06-21] MEDS: OLANZapine 2.5 MG TAB PO SCH (08:19)
[2021-06-21] MEDS: GABAPENTIN 300 MG CAP PO SCH ×3 (08:19→19:37)
[2021-06-21] MEDS: NITROFURAN MACRO 100 MG CAP PO SCH ×2 (08:19→19:36)
[2021-06-21] MEDS: ESCITALOPRAM 20 MG TAB PO SCH (08:19)
--- NOTE | 2021-06-21 09:56 | P.RH.PN ---
Estimated Length of Stay: 14 Expected Discharge Date: 06/29/21 Discharge Disposition Plan: Home Family Support: Yes Prison Goal: Mobility, Transfers, Self Care Vital Signs: Last Vital Signs Temp 98.0 F 06/21/21 07:21 Pulse 50 06/21/21 07:21 Resp 14 06/21/21 07:21 BP 113/62 06/21/21 07:21 Pulse Ox 98 06/21/21 07:21 Laboratory: Laboratory Last Values WBC 7.90 K/uL (4.3-10.9) 06/20/21 04:39 RBC 3.82 M/uL (3.86-4.86) L 06/20/21 04:39 Hgb 11.2 g/dL (12.0-15.0) L 06/20/21 04:39 Hct 34.6 % (36.0-45.0) L 06/20/21 04:39 MCV 90.7 fL (80-100) D 06/20/21 04:39 MCH 29.3 pg (27.0-35.0) 06/20/21 04:39 MCHC 32.3 g/dL (32.0-36.0) 06/20/21 04:39 RDW 14.6 % (12.1-15.2) 06/20/21 04:39 Plt Count 169 K/uL (152-406) 06/20/21 04:39 MPV 8.9 fL (7.6-11.3) 06/20/21 04:39 Neutrophils % 64.3 % (41.7-73.7) 06/20/21 04:39 Lymphocytes % 24.2 % (15.3-44.8) 06/20/21 04:39 Monocytes % 9.6 % (3.3-12.3) 06/20/21 04:39 Eosinophils % 1.2 % (0-4.4) 06/20/21 04:39 Basophils % 0.7 % (0-1.3) 06/20/21 04:39 Absolute Neutrophils 5.0 K/uL (1.8-8.0) 06/20/21 04:39 Absolute Lymphocytes 1.9 K/uL (0.7-4.9) 06/20/21 04:39 Absolute Monocytes 0.8 K/uL (0.1-1.3) 06/20/21 04:39 Absolute Eosinophils 0.1 K/uL (0-0.5) 06/20/21 04:39 Absolute Basophils 0.1 K/uL (0-0.5) 06/20/21 04:39 Sodium 149 mmol/L (136-145) H 06/20/21 04:39 Potassium 3.5 mmol/L (3.5-5.1) 06/20/21 04:39 Chloride 118 mmol/L (98-107) H 06/20/21 04:39 Carbon Dioxide 24 mmol/L (21-32) 06/20/21 04:39 BUN 22 mg/dL (7-18) H 06/20/21 04:39 Creatinine 0.78 mg/dL (0.55-1.3) 06/20/21 04:39 Estimated GFR 72 mL/min (=/>90) L 06/20/21 04:39 Glucose 92 mg/dL (74-106) 06/20/21 04:39 Calcium 8.5 mg/dL (8.5-10.1) 06/20/21 04:39 Magnesium 2.0 mg/dL (1.8-2.4) 06/20/21 04:39 Albumin 2.6 g/dL (3.4-5.0) L 06/20/21 04:39 Prealbumin 13.4 mg/dL (20-40) L 06/20/21 04:39 Urine Color Cancelled 06/19/21 21:08 Urine Color Yellow (Yellow) 06/19/21 21:08 Urine Appearance Cancelled 06/19/21 21:08 Urine Appearance Turbid (Clear) 06/19/21 21:08 Urine pH 7.0 (5.0-7.0) 06/19/21 21:08 Urine pH Cancelled 06/19/21 21:08 Ur Specific [place] 1.010 (1.005-1.030) 06/19/21 21:08 Ur Specific [place] Cancelled 06/19/21 21:08 Glucose (UA)(Auto) Cancelled 06/19/21 21:08 Glucose (UA)(Auto) Negative (Negative) 06/19/21 21:08 Urine Ketones Cancelled 06/19/21 21:08 Urine Ketones Negative (Negative) 06/19/21 21:08 Urine Blood 2+ (Negative) H 06/19/21 21:08 Urine Blood Cancelled 06/19/21 21:08 Urine Nitrite Cancelled 06/19/21 21:08 Urine Nitrite Positive (Negative) H 06/19/21 21:08 Urine Bilirubin Cancelled 06/19/21 21:08 Urine Bilirubin Negative (Negative) 06/19/21 21:08 Urine Urobilinogen 0.2 mg/dL (0.2-1.0) 06/19/21 21:08 Urine Urobilinogen Cancelled 06/19/21 21:08 Ur Leukocyte Esterase 2+ (Negative) H 06/19/21 21:08 Ur Leukocyte Esterase Cancelled 06/19/21 21:08 Urine RBC <5 /HPF (NONE SEEN) 06/19/21 21:08 Urine RBC Cancelled 06/19/21 21:08 Urine WBC 10-20 /HPF (<5) H 06/19/21 21:08 Urine WBC Cancelled 06/19/21 21:08 Ur Squamous Epith Cells Cancelled 06/19/21 21:08 Ur Squamous Epith Cells COMPOSITE SCIENCE TEACHER 06/19/21 21:08 Ur Urothelial Cells Cancelled 06/19/21 21:08 Calcium Oxalate Crystal Cancelled 06/19/21 21:08 Uric Acid Crystals Cancelled 06/19/21 21:08 Triple Phos Crystals Cancelled 06/19/21 21:08 Other Crystals Cancelled 06/19/21 21:08 Amorphous Sediment Cancelled 06/19/21 21:08 Glitter Cells Cancelled 06/19/21 21:08 Urine Bacteria >50 /HPF (<20) H 06/19/21 21:08 Urine Bacteria Cancelled 06/19/21 21:08 Hyaline Casts Cancelled 06/19/21 21:08 Fine Granular Casts Cancelled 06/19/21 21:08 Coarse Granular Casts Cancelled 06/19/21 21:08 Waxy Casts Cancelled 06/19/21 21:08 RBC Casts Cancelled 06/19/21 21:08 WBC Casts Cancelled 06/19/21 21:08 Urine Mucus Cancelled 06/19/21 21:08 Urine Other Cancelled 06/19/21 21:08 Urine Trichomonas Cancelled 06/19/21 21:08 Urine Yeast Cancelled 06/19/21 21:08 Ur Yeast w Hyphae Cancelled 06/19/21 21:08 Urine Yeast (Budding) Cancelled 06/19/21 21:08 Urine Sperm Cancelled 06/19/21 21:08 Urine Culture Reflexed Cancelled 06/19/21 21:08 Urine Culture Reflexed Not needed 06/19/21 21:08 Urine Total Volume Cancelled 06/19/21 21:08 Urine Total Protein Cancelled 06/19/21 21:08 Urine Total Protein Negative (Negative) 06/19/21 21:08 SARS-CoV-2 Rap RNA(RT-PCR) Negative (NEGATIVE) 06/19/21 20:36 Weight: 129 lb 12.8 oz Wound Present: No Closed Surgical Incision Present: No Negative Pressure Wound Therapy Present: No Physician Update: Labs reviewed and are stable. She is doing fairly well with therapy. She did 25/30 on the MMSE. She walked 250' contact guard. Summary: Patient's care plan and emt intermediate goals have been reviewed and revised as necessary. Please see the Rehabilitation Signature page for all necessary signatures.
--- NOTE | 2021-06-21 13:42 | PN ---
Date of Progress Note: 06/21/2021 Subjective: The patient was seen this morning for followup. She was sitting in the chair. Overall feels better than yesterday. No new complaints or problems reported. She was eating breakfast and f eeding herself. Objective: Vital signs: Reviewed. HEENT: Unremarkable. Lungs: Clear to auscultation. Heart: Sounds normal. Abdomen: Soft. Bowel sounds normal. No guarding, rigidity, tenderness, distention. Extremities: No leg edema. Impression: 1.Stroke. 2.Hypertension. 3.Urinary tract infection. 4.Hyperlipidemia. 5.Depression. Plan: We will go ahead and continue current medications. Nursing staff will continue to do straight cath to drain her urinary bladder as per instructions. We will continue physical therapy under guid ance of Dr. Smart. Continue DVT prophylaxis, current antibiotics, and urine culture result is vandana piper. We will see her tomorrow for followup. MARISA/MODL Voice ID: [id number] Report ID: [id number]
[2021-06-21] MEDS: DOCUSATE NA/SENNA CONC 1 TAB PO PRN (19:36)
[2021-06-21] MEDS: MELATONIN 3 MG TABLET PO PRN (19:37)
[2021-06-21] MEDS: ATORVASTATIN 40 MG TAB PO SCH (19:37)
[2021-06-22] MEDS: PANTOPRAZOLE 40MG TABLET PO SCH (07:01)
[2021-06-22] MEDS: LEVOTHYROXINE SOD 0.112 MG TAB PO SCH (07:01)
[2021-06-22] MEDS: ENOXAPARIN 40 MG/0.4 ML SQ SCH (07:01)
[2021-06-22] MEDS: ESCITALOPRAM 20 MG TAB PO SCH (08:03)
[2021-06-22] MEDS: NITROFURAN MACRO 100 MG CAP PO SCH ×2 (08:03→19:24)
[2021-06-22] MEDS: GABAPENTIN 300 MG CAP PO SCH ×3 (08:03→19:25)
[2021-06-22] MEDS: ASPIRIN EC 81 MG TAB PO SCH (08:03)
[2021-06-22] MEDS: OLANZapine 2.5 MG TAB PO SCH (08:05)
--- NOTE | 2021-06-22 11:21 | PN ---
Date of Progress Note: 06/22/2021 Subjective: The patient was seen this morning for followup. No new complaints or problems reported by patient. Lying in bed, not in any distress. Objective: VITAL SIGNS: Reviewed. HEENT: Examination unremarkable. LUNGS: Clear to auscultation. HEART: Sounds normal. ABDOMEN: Soft. Bowel sounds normal. No guarding, rigidity, tenderness, distention. EXTREMITIES: No leg edema. Assessment: 1. Stroke. 2. Hypertension. 3. Hypokalemia. 4. Urinary tract infection. 5. Hyperlipidemia. Plan: We will go ahead and continue current medication. Continue current antibiotics. Follow up on urine culture results. Continue physical therapy under guidance of Dr. Smart. I will see her tomorrow for followup. MARISA/MODL Voice ID: [id number] Report ID: [id number] MTDD
[2021-06-22] MEDS: MELATONIN 3 MG TABLET PO PRN (19:25)
[2021-06-22] MEDS: ATORVASTATIN 40 MG TAB PO SCH (19:25)
[2021-06-23] MEDS: PANTOPRAZOLE 40MG TABLET PO SCH (06:28)
[2021-06-23] MEDS: LEVOTHYROXINE SOD 0.112 MG TAB PO SCH (06:28)
[2021-06-23] MEDS: ENOXAPARIN 40 MG/0.4 ML SQ SCH (07:19)
[2021-06-23] MEDS: GABAPENTIN 300 MG CAP PO SCH ×3 (08:04→19:40)
[2021-06-23] MEDS: ESCITALOPRAM 20 MG TAB PO SCH (08:04)
[2021-06-23] MEDS: ASPIRIN EC 81 MG TAB PO SCH (08:04)
[2021-06-23] MEDS: NITROFURAN MACRO 100 MG CAP PO SCH (08:04)
[2021-06-23] MEDS: OLANZapine 2.5 MG TAB PO SCH (08:05)
[2021-06-23] MEDS ORDERED: CIPROFLOXACIN HCL 500 MG TAB PO ONE (09:15)
--- NOTE | 2021-06-23 16:14 | PN ---
Date of Progress Note: 06/23/2021 Subjective: The patient was seen this morning for followup. She was lying in bed, not in any distre ss. Denies any new complaints. Objective: Vital Signs: Reviewed. HEENT: Unremarkable. Lungs: Clear to auscultation. Heart: Sounds normal. Abdomen: Soft. Bowel sounds normal. No guarding, rigidity, tenderness, or distention. Extremities: No leg edema. Laboratory Data: Urine culture grew E coli and Enterococcus and it is sensitive to Cipro and Levaqui n and it is sensitive to nitrofurantoin, but sensitivity level is much better with Cipro and Levaquin . Impression: 1.Urinary tract infection. 2.Stroke. 3.Hypertension. 4.Hyperlipidemia. Plan: We will continue current medication except stop nitrofurantoin and start the patient on Cipro as per order. We will continue other current medical management. I will see her tomorrow for follow up. Details and plan of treatment discussed with her. MARISA/MODL Voice ID: [id number] Report ID: [id number]
[2021-06-23] MEDS: CIPROFLOXACIN HCL 500 MG TAB PO SCH (19:40)
[2021-06-23] MEDS: MELATONIN 3 MG TABLET PO PRN (19:40)
[2021-06-23] MEDS: ATORVASTATIN 40 MG TAB PO SCH (19:40)
[2021-06-24] MEDS: PANTOPRAZOLE 40MG TABLET PO SCH (06:56)
[2021-06-24] MEDS: LEVOTHYROXINE SOD 0.112 MG TAB PO SCH (06:56)
[2021-06-24] MEDS: OLANZapine 2.5 MG TAB PO SCH (07:25)
[2021-06-24] MEDS: ASPIRIN EC 81 MG TAB PO SCH (07:25)
[2021-06-24] MEDS: ESCITALOPRAM 20 MG TAB PO SCH (07:26)
[2021-06-24] MEDS: ENOXAPARIN 40 MG/0.4 ML SQ SCH (07:26)
[2021-06-24] MEDS: CIPROFLOXACIN HCL 500 MG TAB PO SCH ×2 (07:26→20:25)
[2021-06-24] MEDS: GABAPENTIN 300 MG CAP PO SCH ×3 (08:16→20:25)
[2021-06-24] MEDS: DOCUSATE NA/SENNA CONC 1 TAB PO PRN (13:31)
--- NOTE | 2021-06-24 17:39 | R.PN ---
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 SUBJECTIVE: Pt denied any depression. Pt denied any Shortness of Breath. CBC with differential is essentially normal except for mildly low Hgb of 11.2, prealbumin 13.4, Na 14 9, Cl 118, BUN 22. UA nitrite positive, bacteria > 50, WBC 10-20, blood 2+. COVID-19 negative.. Ambulated 750' using a rolling walker, up and down 15 steps with modified independence. VITAL SIGNS Temperature: 97.3 F SBP/DBP: 120/64 Pulse: 48 Resp: 16 MEDICATION ALLERGIES: No Known Drug Allergies (NKDA) ENVIRONMENTAL ALLERGIES: - Substance Allergies None Known - Other Allergies None Known NURSING: - Shower allowing shower - Bladder care per protocol - Skin care per protocol PRECAUTIONS: - Weight Bearing Precaution WBAT right LE ACTIVITIES OOB only with supervision THERAPIES: - Dietary and Nutrition Adequate Nutrition. Nutritional Education. Nutritional Supplements. - Occupational Therapy Cognitive Retraining. Transfer Training. Evaluate and Treat. UE Strengthening. Indep. ADL's- Higher L evel Functioning. Safety Awareness. Household Tasks. Visual Perceptual Training. - Speech Therapy Cognitive Training. Expressive Language Skills. Memory Strategies. Receptive Language Skills. Speech Intelligibility Training. - Physical Therapy Evaluate and Treat. Gait Training. Balance Training. Transfer Training. LE Strengthening. Mobility Tr aining. Safety Awareness. PHYSICAL EXAM - Gen Alert and awake Lying in bed No apparent distress Oriented to: person, time, and place - Skin No breakdown No abnormalities - Eyes No abnormalities - ENMT No abnormalities - Neck No abnormalities - CVS RRR - Chest No abnormalities - Abd Soft - GI Non distended Deferred - No abnormalities - Ext No significant edema - MSK 4+/5 weakness in right upper and lower extremities - Neuro 4/5 strength right upper and lower extremities. - Psych No abnormalities ASSESSMENT: Pt. is a 75 yo Right-handed female.On 06/16/2021 Pt. presented to [facility] with sudden onset of left-side weakness.On 06/16/2021 she was admitted to [facility] with diagnosis ACUTE ISCHEMI C R Cerebellar CVA.Her impairment category is Stroke 01 - Left Body (Right Brain) (01.1).Pre-morbidl y, Pt. was independent/mod-I in Locomotion, Safety Awareness, and Social Cognition; and she had good Endurance, Communication, Self-Care, Sphincter Control, and Transfers Control.Currently, she has defi cits of Endurance, Self-Care, Balance, Social Cognition, Safety Awareness, Locomotion, Transfers Cont rol, and Sphincter Control.Pt. is now referred to [facility] for acute in-manuel ent rehabilitation in order to maximize patient's functional independence in activities of daily whitney ng, strength, ROM, and mobility.- Rehab Goal Patient has realistic goal of being discharged at assistance level 7-Ind to reside at Home with Fami ly/Relatives. MDM/PLAN: - Physical Therapy Gait dysfunction - to improve, our physical therapists will perform initial evaluation of pt's statu s upon admission and devise an individualized program for Gait Training, and Wheel Chair mobility Inability to transfer - to improve, our physical therapists will perform initial evaluation of pt's status upon admission and devise an individualized program for Bed mobility Need for home safety evaluation - to improve, our physical therapists will perform initial evaluatio n of pt's status upon admission and devise an individualized program for Home Evaluation Need in caregiver upon discharge - to improve, our physical therapists will perform initial evaluati on of pt's status upon admission and devise an individualized program for Caregiver Training New precaution - to improve, our physical therapists will perform initial evaluation of pt's status upon admission and devise an individualized program for Patient precaution education Edema - to improve, our physical therapists will perform initial evaluation of pt's status upon admis светлана and devise an individualized program for Elevation Training, and Lymphedema Therapy Poor balance - to improve, our physical therapists will perform initial evaluation of pt's status up on admission and devise an individualized program for Balance Training Poor endurance - to improve, our physical therapists will perform initial evaluation of pt's status upon admission and devise an individualized program for Endurance Training Weakness - to improve, our physical therapists will perform initial evaluation of pt's status upon a dmission and devise an individualized program for Aquatic Therapy, Neuromuscular Reeducation, and Str engthening Achieving independence - to improve, our physical therapists will perform initial evaluation of pt's status upon admission and devise an individualized program for Community Reintegration Activities - Occupational Therapy ADL deficits - to improve, our occupation therapists will perform initial evaluation of pt's status upon admission and devise an individualized program for Bathing, Bed mobility, Community Reintegratio n, Cooking, Dressing, Eating, Fine Motor Skills, Grooming, Homemaking, Kitchen Mobility, Laundry, Pat ient Education, Safety Awareness, Splinting - Positioning, Transfers(Toilet, Tub, Shower), and Wheel Chair Management Cognitive deficits - to improve, our occupation therapists will perform initial evaluation of pt's s tatus upon admission and devise an individualized program for Cognition - orientation Need for healthcare translator - to improve, our occupation therapists will perform initial evaluation of pt's status upon admission and devise an individualized program for Caregiver Training Weakness - to improve, our occupation therapists will perform initial evaluation of pt's status upon admission and devise an individualized program for Aquatic Therapy, Balance, Endurance, UE ROM, and UE strengthening - Other See attached MAR (Medication Administration Record) - Diet Type Continue Regular - Diet - Liquid Texture Continue Regular - Tube Feed Continue N/A - Bladder care per protocol - Weight Bearing Precaution WBAT right LE - Skin care per protocol - Diet - Solid Texture Continue Regular - Shower allowing shower for Dementia, TBI, Stroke, or others FUNCTIONAL STATUS: UPDATED AT WEEKLY TEAM CONFERENCE - Bladder Same accident frequency: 7-Ind - No accidents in the past 7 days - Bowel Same accident frequency: 7-Ind - No accidents in the past 7 days - Walking Same score based on distance walked: 0(N/A) - Wheelchair Same score based on distance traveled: 0(N/A) FUNCTIONAL STATUS: - Self-Care A. Eating Ind B. Grooming Marjorie C. Bathing sup D. Dressing - Upper Marjorie E. Dressing - Lower sup F. Toileting Marjorie - Sphincter Control G. Bladder control Marjorie H. Bowel control Marjorie - Transfers Control I. Bed/Chair/Wheelchair Marjorie J. Toilet sup K. Tub/Shower sup - Locomotion L. Walk/Wheelchair (B) Marjorie M. Stairs sup - Communication N. Comprehension (B) Marjorie O. Expression (B) Marjorie - Social Cognition P. Social Interaction Marjorie Q. Problem Solving Marjorie R. Memory Marjorie - Endurance Good - Balance Good - Safety Awareness Good QI SCORES: - Self-Care A. Eating 06-Independent B. Oral hygiene 03-Partial/moderate assistance C. Toileting hygiene 03-Partial/moderate assistance E. Shower/bathe self 03-Partial/moderate assistance F. Upper body dressing 03-Partial/moderate assistance G. Lower body dressing 03-Partial/moderate assistance H. Putting on/taking off footwear - Mobility A. Roll left and right 06-Independent B. Sit to lying 03-Partial/moderate assistance C. Lying to sitting on side of bed 03-Partial/moderate assistance D. Sit to stand 03-Partial/moderate assistance E. Chair/rnr-xg-dyrdm transfer 03-Partial/moderate assistance F. Toilet transfer 03-Partial/moderate assistance G. Car transfer 88-Not attempted due to medical condition or safety concerns I. Walk 10 feet 03-Partial/moderate assistance J. Walk 50 feet with two turns 88-Not attempted due to medical condition or safety concerns K. Walk 150 feet 88-Not attempted due to medical condition or safety concerns L. Walking 10 feet on uneven surfaces 88-Not attempted due to medical condition or safety concerns M. 1 step (curb) 88-Not attempted due to medical condition or safety concerns N. 4 steps 88-Not attempted due to medical condition or safety concerns O. 12 steps 88-Not attempted due to medical condition or safety concerns P. Picking up object 06-Independent R. Wheel 50 feet with two turns 88-Not attempted due to medical condition or safety concerns S. Wheel 150 feet 88-Not attempted due to medical condition or safety concerns - Bladder and Bowel Bladder continence Bowel continence - Endurance Fair - Balance Fair - Safety Awareness Fair CURRENT FUNC. DEFICITS: Endurance, Balance, Safety Awareness, Self-Care, and Mobility SIGNATURE PANEL: (PAPER LATCHER)
[2021-06-24] MEDS: ATORVASTATIN 40 MG TAB PO SCH (20:25)
[2021-06-24] MEDS: MELATONIN 3 MG TABLET PO PRN (20:25)
--- NOTE | 2021-06-24 20:51 | PN ---
Date of Progress Note: 06/24/2021 Subjective: Patient was seen this morning for followup. No new complaints or problems reported. Lying in bed, not in any distress. Objective: Vital Signs: Reviewed. HEENT: Examination unremarkable. Lungs: Clear to auscultation. Heart: Sounds normal. Abdomen: Soft. Bowel sounds normal. No guarding, rigidity, tenderness, or distention. Extremities: No leg edema. Impression: 1. Urinary tract infection. 2. Stroke. 3. Hypertension. Plan: We will continue current medication. Continue current antihypertensive medication. We will go ahead and continue current antibiotics. Physical therapy to be provided under guidance Dr. Smart. I will see her tomorrow for followup. MARISA/MODL Voice ID: [id number] Report ID: [id number] MTDD
[2021-06-25] MEDS: PANTOPRAZOLE 40MG TABLET PO SCH (06:42)
[2021-06-25] MEDS: LEVOTHYROXINE SOD 0.112 MG TAB PO SCH (06:42)
[2021-06-25] MEDS: ENOXAPARIN 40 MG/0.4 ML SQ SCH (06:42)
[2021-06-25] MEDS: ASPIRIN EC 81 MG TAB PO SCH (08:38)
[2021-06-25] MEDS: OLANZapine 2.5 MG TAB PO SCH (08:38)
[2021-06-25] MEDS: ESCITALOPRAM 20 MG TAB PO SCH (08:38)
[2021-06-25] MEDS: GABAPENTIN 300 MG CAP PO SCH ×3 (08:38→19:59)
[2021-06-25] MEDS: CIPROFLOXACIN HCL 500 MG TAB PO SCH ×2 (08:38→20:00)
[2021-06-25] MEDS ORDERED: POLYETHYL GLY 3350 17 GM/DOSE PO PRN (13:50)
--- NOTE | 2021-06-25 17:22 | R.PN ---
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 SUBJECTIVE: Pt denied any depression. Pt denied any Shortness of Breath. CBC with differential is essentially normal except for mildly low Hgb of 11.2, prealbumin 13.4, Na 14 9, Cl 118, BUN 22. UA nitrite positive, bacteria > 50, WBC 10-20, blood 2+. COVID-19 negative.. Ambulated 750' using a rolling walker with independence. Up and down 15 steps with independence. VITAL SIGNS Temperature: 97.8 F SBP/DBP: 136/71 Pulse: 48 Resp: 16 MEDICATION ALLERGIES: No Known Drug Allergies (NKDA) ENVIRONMENTAL ALLERGIES: - Substance Allergies None Known - Other Allergies None Known NURSING: - Shower allowing shower - Bladder care per protocol - Skin care per protocol PRECAUTIONS: - Weight Bearing Precaution WBAT right LE ACTIVITIES OOB only with supervision THERAPIES: - Dietary and Nutrition Adequate Nutrition. Nutritional Education. Nutritional Supplements. - Occupational Therapy Cognitive Retraining. Transfer Training. Evaluate and Treat. UE Strengthening. Indep. ADL's- Higher L evel Functioning. Safety Awareness. Household Tasks. Visual Perceptual Training. - Speech Therapy Cognitive Training. Expressive Language Skills. Memory Strategies. Receptive Language Skills. Speech Intelligibility Training. - Physical Therapy Evaluate and Treat. Gait Training. Balance Training. Transfer Training. LE Strengthening. Mobility Tr aining. Safety Awareness. PHYSICAL EXAM - Gen Alert and awake Lying in bed No apparent distress Oriented to: person, time, and place - Skin No breakdown No abnormalities - Eyes No abnormalities - ENMT No abnormalities - Neck No abnormalities - CVS RRR - Chest No abnormalities - Abd Soft - GI Non distended Deferred - No abnormalities - Ext No significant edema - MSK 4+/5 weakness in right upper and lower extremities - Neuro 4/5 strength right upper and lower extremities. - Psych No abnormalities ASSESSMENT: Pt. is a 75 yo Right-handed female.On 06/16/2021 Pt. presented to [facility] with sudden onset of left-side weakness.On 06/16/2021 she was admitted to [facility] with diagnosis ACUTE ISCHEMI C R Cerebellar CVA.Her impairment category is Stroke 01 - Left Body (Right Brain) (01.1).Pre-morbidl y, Pt. was independent/mod-I in Locomotion, Safety Awareness, and Social Cognition; and she had good Endurance, Communication, Self-Care, Sphincter Control, and Transfers Control.Currently, she has defi cits of Endurance, Self-Care, Balance, Social Cognition, Safety Awareness, Locomotion, Transfers Cont rol, and Sphincter Control.Pt. is now referred to [facility] for acute in-manuel ent rehabilitation in order to maximize patient's functional independence in activities of daily whitney ng, strength, ROM, and mobility.- Rehab Goal Patient has realistic goal of being discharged at assistance level 7-Ind to reside at Home with Fami ly/Relatives. MDM/PLAN: - Physical Therapy Gait dysfunction - to improve, our physical therapists will perform initial evaluation of pt's statu s upon admission and devise an individualized program for Gait Training, and Wheel Chair mobility Inability to transfer - to improve, our physical therapists will perform initial evaluation of pt's status upon admission and devise an individualized program for Bed mobility Need for home safety evaluation - to improve, our physical therapists will perform initial evaluatio n of pt's status upon admission and devise an individualized program for Home Evaluation Need in caregiver upon discharge - to improve, our physical therapists will perform initial evaluati on of pt's status upon admission and devise an individualized program for Caregiver Training New precaution - to improve, our physical therapists will perform initial evaluation of pt's status upon admission and devise an individualized program for Patient precaution education Edema - to improve, our physical therapists will perform initial evaluation of pt's status upon admi ssion and devise an individualized program for Elevation Training, and Lymphedema Therapy Poor balance - to improve, our physical therapists will perform initial evaluation of pt's status up on admission and devise an individualized program for Balance Training Poor endurance - to improve, our physical therapists will perform initial evaluation of pt's status upon admission and devise an individualized program for Endurance Training Weakness - to improve, our physical therapists will perform initial evaluation of pt's status upon a dmission and devise an individualized program for Aquatic Therapy, Neuromuscular Reeducation, and Str engthening Achieving independence - to improve, our physical therapists will perform initial evaluation of pt's status upon admission and devise an individualized program for Community Reintegration Activities - Occupational Therapy ADL deficits - to improve, our occupation therapists will perform initial evaluation of pt's status upon admission and devise an individualized program for Bathing, Bed mobility, Community Reintegratio n, Cooking, Dressing, Eating, Fine Motor Skills, Grooming, Homemaking, Kitchen Mobility, Laundry, Pat ient Education, Safety Awareness, Splinting - Positioning, Transfers(Toilet, Tub, Shower), and Wheel Chair Management Cognitive deficits - to improve, our occupation therapists will perform initial evaluation of pt's s tatus upon admission and devise an individualized program for Cognition - orientation Need for disabilities caregiver - to improve, our occupation therapists will perform initial evaluation of pt's status upon admission and devise an individualized program for Caregiver Training Weakness - to improve, our occupation therapists will perform initial evaluation of pt's status upon admission and devise an individualized program for Aquatic Therapy, Balance, Endurance, UE ROM, and UE strengthening - Other See attached MAR (Medication Administration Record) - Diet Type Continue Regular - Diet - Liquid Texture Continue Regular - Tube Feed Continue N/A - Bladder care per protocol - Weight Bearing Precaution WBAT right LE - Skin care per protocol - Diet - Solid Texture Continue Regular - Shower allowing shower for Dementia, TBI, Stroke, or others FUNCTIONAL STATUS: UPDATED AT WEEKLY TEAM CONFERENCE - Bladder Same accident frequency: 7-Ind - No accidents in the past 7 days - Bowel Same accident frequency: 7-Ind - No accidents in the past 7 days - Walking Same score based on distance walked: 0(N/A) - Wheelchair Same score based on distance traveled: 0(N/A) FUNCTIONAL STATUS: - Self-Care A. Eating Ind B. Grooming Marjorie C. Bathing sup D. Dressing - Upper Marjorie E. Dressing - Lower sup F. Toileting Marjorie - Sphincter Control G. Bladder control Marjorie H. Bowel control Marjorie - Transfers Control I. Bed/Chair/Wheelchair Marjorie J. Toilet sup K. Tub/Shower sup - Locomotion L. Walk/Wheelchair (B) Marjorie M. Stairs sup - Communication N. Comprehension (B) Marjorie O. Expression (B) Marjorie - Social Cognition P. Social Interaction Marjorie Q. Problem Solving Marjorie R. Memory Marjorie - Endurance Good - Balance Good - Safety Awareness Good QI SCORES: - Self-Care A. Eating 06-Independent B. Oral hygiene 03-Partial/moderate assistance C. Toileting hygiene 03-Partial/moderate assistance E. Shower/bathe self 03-Partial/moderate assistance F. Upper body dressing 03-Partial/moderate assistance G. Lower body dressing 03-Partial/moderate assistance H. Putting on/taking off footwear - Mobility A. Roll left and right 06-Independent B. Sit to lying 03-Partial/moderate assistance C. Lying to sitting on side of bed 03-Partial/moderate assistance D. Sit to stand 03-Partial/moderate assistance E. Chair/dac-pw-afaxu transfer 03-Partial/moderate assistance F. Toilet transfer 03-Partial/moderate assistance G. Car transfer 88-Not attempted due to medical condition or safety concerns I. Walk 10 feet 03-Partial/moderate assistance J. Walk 50 feet with two turns 88-Not attempted due to medical condition or safety concerns K. Walk 150 feet 88-Not attempted due to medical condition or safety concerns L. Walking 10 feet on uneven surfaces 88-Not attempted due to medical condition or safety concerns M. 1 step (curb) 88-Not attempted due to medical condition or safety concerns N. 4 steps 88-Not attempted due to medical condition or safety concerns O. 12 steps 88-Not attempted due to medical condition or safety concerns P. Picking up object 06-Independent R. Wheel 50 feet with two turns 88-Not attempted due to medical condition or safety concerns S. Wheel 150 feet 88-Not attempted due to medical condition or safety concerns - Bladder and Bowel Bladder continence Bowel continence - Endurance Fair - Balance Fair - Safety Awareness Fair CURRENT FUNC. 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
[2021-06-25] MEDS: ATORVASTATIN 40 MG TAB PO SCH (20:00)
[2021-06-25] MEDS: DOCUSATE NA/SENNA CONC 1 TAB PO PRN (20:00)
[2021-06-25] MEDS: MELATONIN 3 MG TABLET PO PRN (20:17)
--- NOTE | 2021-06-25 20:54 | PN ---
Date of Progress Note: 06/25/2021 Subjective: The patient was seen this morning for followup. No new complaints or problems reported by patient. Lying in bed, not in any distress. Objective: Vital Signs: Reviewed. HEENT: Examination unremarkable. Lungs: Clear to auscultation. Heart: Sounds normal. Abdomen: Soft. Bowel sounds normal. No guarding, rigidity, tenderness, distention. Extremities: No leg edema. Impression: 1. Urinary tract infection. 2. Hypertension. 3. Stroke. Plan: We will continue current medications. Continue antibiotic, antihypertensive medication, statin therapy. Continue physical therapy under guidance of Dr. Smart and I will see her tomorrow for followup. MARISA/MODL Voice ID: [id number] Report ID: [id number] MTDD
[2021-06-26] MEDS: ENOXAPARIN 40 MG/0.4 ML SQ SCH (06:08)
[2021-06-26] MEDS: PANTOPRAZOLE 40MG TABLET PO SCH (06:09)
[2021-06-26] MEDS: LEVOTHYROXINE SOD 0.112 MG TAB PO SCH (06:09)
[2021-06-26] MEDS: GABAPENTIN 300 MG CAP PO SCH ×3 (08:24→18:35)
[2021-06-26] MEDS: ASPIRIN EC 81 MG TAB PO SCH (08:24)
[2021-06-26] MEDS: ESCITALOPRAM 20 MG TAB PO SCH (08:24)
[2021-06-26] MEDS: OLANZapine 2.5 MG TAB PO SCH (08:25)
[2021-06-26] MEDS: CIPROFLOXACIN HCL 500 MG TAB PO SCH ×2 (08:25→18:35)
[2021-06-26] MEDS: ATORVASTATIN 40 MG TAB PO SCH (18:36)
[2021-06-26] MEDS: MELATONIN 3 MG TABLET PO PRN (18:36)
--- NOTE | 2021-06-26 19:59 | PN ---
Date of Progress Note: 06/26/2021 Subjective: The patient was seen this morning for followup. She was lying in bed, not in any distress. Objective: Vital Signs: Reviewed. HEENT: Examination unremarkable. Lungs: Clear to auscultation. Heart: Sounds normal. Abdomen: Soft. Bowel sounds normal. No guarding, rigidity, tenderness, distention. Extremities: No leg edema. Impression: 1. Stroke. 2. Hypertension. 3. Hyperlipidemia. 4. Constipation. Plan: We will continue current medication. Continue current antihypertensive medication. Continue current DVT prophylaxis. We will continue to provide physical therapy under guidance of Dr. Smart. We will continue current antibiotic for urinary tract infection. MARISA/MODL Voice ID: [id number] Report ID: [id number] FLORA
[2021-06-27 05:01] LABS: Absolute Lymphocytes (CBC) 2.1 K/uL (0.7-4.9); Basophils % 0.8 % (0-1.3); Hematocrit 34.7 % (36.0-45.0); MPV 9.3 fL (7.6-11.3); RBC Red Blood Cell Count 3.84 M/uL (3.86-4.86)
[2021-06-27 05:18] LABS: Albumin 2.6 g/dL (3.4-5.0); Potassium 3.7 mmol/L (3.5-5.1); Prealbumin 14.9 mg/dL (20-40)
[2021-06-27] MEDS: LEVOTHYROXINE SOD 0.112 MG TAB PO SCH (06:40)
[2021-06-27] MEDS: PANTOPRAZOLE 40MG TABLET PO SCH (06:40)
[2021-06-27] MEDS: ENOXAPARIN 40 MG/0.4 ML SQ SCH (08:12)
[2021-06-27] MEDS: GABAPENTIN 300 MG CAP PO SCH ×3 (08:12→19:35)
[2021-06-27] MEDS: CIPROFLOXACIN HCL 500 MG TAB PO SCH ×2 (08:12→19:36)
[2021-06-27] MEDS: ASPIRIN EC 81 MG TAB PO SCH (08:12)
[2021-06-27] MEDS: ESCITALOPRAM 20 MG TAB PO SCH (08:13)
[2021-06-27] MEDS: OLANZapine 2.5 MG TAB PO SCH (08:14)
--- NOTE | 2021-06-27 17:49 | R.PN ---
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 SUBJECTIVE: Pt denied any depression. Pt denied any Shortness of Breath. CBC with differential is essentially normal except for mildly low Hgb of 11.5, prealbumin 14.9, Na 14 6, Cl 117, BUN 29. UA nitrite positive, bacteria > 50, WBC 10-20, blood 2+. COVID-19 negative. Encour age more water intake. Ambulated 1250' using a rolling walker with independence. Up and down 45 steps with independence. VITAL SIGNS Temperature: 97.2 F SBP/DBP: 124/57 Pulse: 50 Resp: 16 MEDICATION ALLERGIES: No Known Drug Allergies (NKDA) ENVIRONMENTAL ALLERGIES: - Substance Allergies None Known - Other Allergies None Known NURSING: - Shower allowing shower - Bladder care per protocol - Skin care per protocol PRECAUTIONS: - Weight Bearing Precaution WBAT right LE ACTIVITIES OOB only with supervision THERAPIES: - Dietary and Nutrition Adequate Nutrition. Nutritional Education. Nutritional Supplements. - Occupational Therapy Cognitive Retraining. Transfer Training. Evaluate and Treat. UE Strengthening. Indep. ADL's- Higher L evel Functioning. Safety Awareness. Household Tasks. Visual Perceptual Training. - Speech Therapy Cognitive Training. Expressive Language Skills. Memory Strategies. Receptive Language Skills. Speech Intelligibility Training. - Physical Therapy Evaluate and Treat. Gait Training. Balance Training. Transfer Training. LE Strengthening. Mobility Tr aining. Safety Awareness. PHYSICAL EXAM - Gen Alert and awake Lying in bed No apparent distress Oriented to: person, time, and place - Skin No breakdown No abnormalities - Eyes No abnormalities - ENMT No abnormalities - Neck No abnormalities - CVS RRR - Chest No abnormalities - Abd Soft - GI Non distended Deferred - No abnormalities - Ext No significant edema - MSK 4+/5 weakness in right upper and lower extremities - Neuro 4/5 strength right upper and lower extremities. - Psych No abnormalities ASSESSMENT: Pt. is a 75 yo Right-handed female.On 06/16/2021 Pt. presented to [facility] with sudden onset of left-side weakness.On 06/16/2021 she was admitted to [facility] with diagnosis ACUTE ISCHEMI C R Cerebellar CVA.Her impairment category is Stroke 01 - Left Body (Right Brain) (01.1).Pre-morbidl y, Pt. was independent/mod-I in Locomotion, Safety Awareness, and Social Cognition; and she had good Endurance, Communication, Self-Care, Sphincter Control, and Transfers Control.Currently, she has defi cits of Endurance, Self-Care, Balance, Social Cognition, Safety Awareness, Locomotion, Transfers Cont rol, and Sphincter Control.Pt. is now referred to [facility] for acute in-manuel ent rehabilitation in order to maximize patient's functional independence in activities of daily whitney ng, strength, ROM, and mobility.- Rehab Goal Patient has realistic goal of being discharged at assistance level 7-Ind to reside at Home with Fami ly/Relatives. MDM/PLAN: - Physical Therapy Gait dysfunction - to improve, our physical therapists will perform initial evaluation of pt's statu s upon admission and devise an individualized program for Gait Training, and Wheel Chair mobility Inability to transfer - to improve, our physical therapists will perform initial evaluation of pt's status upon admission and devise an individualized program for Bed mobility Need for home safety evaluation - to improve, our physical therapists will perform initial evaluatio n of pt's status upon admission and devise an individualized program for Home Evaluation Need in caregiver upon discharge - to improve, our physical therapists will perform initial evaluati on of pt's status upon admission and devise an individualized program for Caregiver Training New precaution - to improve, our physical therapists will perform initial evaluation of pt's status upon admission and devise an individualized program for Patient precaution education Edema - to improve, our physical therapists will perform initial evaluation of pt's status upon admi ssion and devise an individualized program for Elevation Training, and Lymphedema Therapy Poor balance - to improve, our physical therapists will perform initial evaluation of pt's status up on admission and devise an individualized program for Balance Training Poor endurance - to improve, our physical therapists will perform initial evaluation of pt's status upon admission and devise an individualized program for Endurance Training Weakness - to improve, our physical therapists will perform initial evaluation of pt's status upon a dmission and devise an individualized program for Aquatic Therapy, Neuromuscular Reeducation, and Str engthening Achieving independence - to improve, our physical therapists will perform initial evaluation of pt's status upon admission and devise an individualized program for Community Reintegration Activities - Occupational Therapy ADL deficits - to improve, our occupation therapists will perform initial evaluation of pt's status upon admission and devise an individualized program for Bathing, Bed mobility, Community Reintegratio n, Cooking, Dressing, Eating, Fine Motor Skills, Grooming, Homemaking, Kitchen Mobility, Laundry, Pat ient Education, Safety Awareness, Splinting - Positioning, Transfers(Toilet, Tub, Shower), and Wheel Chair Management Cognitive deficits - to improve, our occupation therapists will perform initial evaluation of pt's s tatus upon admission and devise an individualized program for Cognition - orientation Need for career services coordinator - to improve, our occupation therapists will perform initial evaluation of pt's status upon admission and devise an individualized program for Caregiver Training Weakness - to improve, our occupation therapists will perform initial evaluation of pt's status upon admission and devise an individualized program for Aquatic Therapy, Balance, Endurance, UE ROM, and UE strengthening - Other See attached MAR (Medication Administration Record) - Diet Type Continue Regular - Diet - Liquid Texture Continue Regular - Tube Feed Continue N/A - Bladder care per protocol - Weight Bearing Precaution WBAT right LE - Skin care per protocol - Diet - Solid Texture Continue Regular - Shower allowing shower for Dementia, TBI, Stroke, or others FUNCTIONAL STATUS: UPDATED AT WEEKLY TEAM CONFERENCE - Bladder Same accident frequency: 7-Ind - No accidents in the past 7 days - Bowel Same accident frequency: 7-Ind - No accidents in the past 7 days - Walking Same score based on distance walked: 0(N/A) - Wheelchair Same score based on distance traveled: 0(N/A) FUNCTIONAL STATUS: - Self-Care A. Eating Ind B. Grooming Marjorie C. Bathing sup D. Dressing - Upper Marjorie E. Dressing - Lower sup F. Toileting Marjorie - Sphincter Control G. Bladder control Marjorie H. Bowel control Marjorie - Transfers Control I. Bed/Chair/Wheelchair Marjorie J. Toilet sup K. Tub/Shower sup - Locomotion L. Walk/Wheelchair (B) Marjorie M. Stairs sup - Communication N. Comprehension (B) Marjorie O. Expression (B) Marjorie - Social Cognition P. Social Interaction Marjorie Q. Problem Solving Marjorie R. Memory Marjorie - Endurance Good - Balance Good - Safety Awareness Good QI SCORES: - Self-Care A. Eating 06-Independent B. Oral hygiene 03-Partial/moderate assistance C. Toileting hygiene 03-Partial/moderate assistance E. Shower/bathe self 03-Partial/moderate assistance F. Upper body dressing 03-Partial/moderate assistance G. Lower body dressing 03-Partial/moderate assistance H. Putting on/taking off footwear - Mobility A. Roll left and right 06-Independent B. Sit to lying 03-Partial/moderate assistance C. Lying to sitting on side of bed 03-Partial/moderate assistance D. Sit to stand 03-Partial/moderate assistance E. Chair/jbs-hm-ucnte transfer 03-Partial/moderate assistance F. Toilet transfer 03-Partial/moderate assistance G. Car transfer 88-Not attempted due to medical condition or safety concerns I. Walk 10 feet 03-Partial/moderate assistance J. Walk 50 feet with two turns 88-Not attempted due to medical condition or safety concerns K. Walk 150 feet 88-Not attempted due to medical condition or safety concerns L. Walking 10 feet on uneven surfaces 88-Not attempted due to medical condition or safety concerns M. 1 step (curb) 88-Not attempted due to medical condition or safety concerns N. 4 steps 88-Not attempted due to medical condition or safety concerns O. 12 steps 88-Not attempted due to medical condition or safety concerns P. Picking up object 06-Independent R. Wheel 50 feet with two turns 88-Not attempted due to medical condition or safety concerns S. Wheel 150 feet 88-Not attempted due to medical condition or safety concerns - Bladder and Bowel Bladder continence Bowel continence - Endurance Fair - Balance Fair - Safety Awareness Fair [facility] 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
[2021-06-27] MEDS: ATORVASTATIN 40 MG TAB PO SCH (19:35)
[2021-06-27] MEDS: MELATONIN 3 MG TABLET PO PRN (19:36)
[2021-06-27] MEDS: DOCUSATE NA/SENNA CONC 1 TAB PO PRN (19:41)
--- NOTE | 2021-06-28 07:26 | PN ---
Date of Progress Note: 06/27/2021 Subjective: The patient was seen this morning for followup. No new complaints, problems reported by patient, lying in bed, not in distress. Objective: Vital Signs: Reviewed. HEENT: Examination unremarkable. Lungs: Clear to auscultation. Heart: Heart sounds normal. Abdomen: Soft. Bowel sounds normal. No guarding, rigidity, tenderness, distention. Extremities: No leg edema. Laboratory Data: White count 6, hemoglobin 11.5, platelets 230. Sodium 146, potassium 3.7, chloride 117, bicarb 23, BUN 29, creatinine 0.84, glucose 95, albumin 2.6. Impression: 1.Stroke. 2.Hypertension. 3.Anemia, unspecified. 4.Urinary tract infection. Plan: We will go ahead and continue current antibiotics. We will continue current antihypertensive medication. DVT prophylaxis. Continue physical therapy under guidance of Dr. Smart and I will se e her tomorrow for followup. MARISA/MODL Voice ID: [id number] Report ID: [id number]
[2021-06-28] MEDS: ESCITALOPRAM 20 MG TAB PO SCH (08:07)
[2021-06-28] MEDS: PANTOPRAZOLE 40MG TABLET PO SCH (08:07)
[2021-06-28] MEDS: ENOXAPARIN 40 MG/0.4 ML SQ SCH (08:07)
[2021-06-28] MEDS: ASPIRIN EC 81 MG TAB PO SCH (08:07)
[2021-06-28] MEDS: CIPROFLOXACIN HCL 500 MG TAB PO SCH ×2 (08:07→20:39)
[2021-06-28] MEDS: GABAPENTIN 300 MG CAP PO SCH ×3 (08:07→20:38)
[2021-06-28] MEDS: LEVOTHYROXINE SOD 0.112 MG TAB PO SCH (08:08)
[2021-06-28] MEDS: OLANZapine 2.5 MG TAB PO SCH (08:08)
--- NOTE | 2021-06-28 09:52 | P.RH.PN ---
Estimated Length of Stay: 14 Expected Discharge Date: 07/03/21 Discharge Disposition Plan: Home Family Support: Yes [facility] Goal: Mobility, Transfers, Self Care Vital Signs: Last Vital Signs Temp 98.0 F 06/28/21 07:40 Pulse 50 06/28/21 07:40 Resp 14 06/28/21 07:40 BP 121/59 L 06/28/21 07:40 Pulse Ox 96 06/28/21 07:40 Laboratory: Laboratory Last Values WBC 6.00 K/uL (4.3-10.9) D 06/27/21 04:16 RBC 3.84 M/uL (3.86-4.86) L 06/27/21 04:16 Hgb 11.5 g/dL (12.0-15.0) L 06/27/21 04:16 Hct 34.7 % (36.0-45.0) L 06/27/21 04:16 MCV 90.2 fL (80-100) 06/27/21 04:16 MCH 29.8 pg (27.0-35.0) 06/27/21 04:16 MCHC 33.0 g/dL (32.0-36.0) 06/27/21 04:16 RDW 14.6 % (12.1-15.2) 06/27/21 04:16 Plt Count 233 K/uL (152-406) D 06/27/21 04:16 MPV 9.3 fL (7.6-11.3) 06/27/21 04:16 Neutrophils % 51.3 % (41.7-73.7) 06/27/21 04:16 Lymphocytes % 35.0 % (15.3-44.8) 06/27/21 04:16 Monocytes % 10.0 % (3.3-12.3) 06/27/21 04:16 Eosinophils % 2.9 % (0-4.4) 06/27/21 04:16 Basophils % 0.8 % (0-1.3) 06/27/21 04:16 Absolute Neutrophils 3.1 K/uL (1.8-8.0) 06/27/21 04:16 Absolute Lymphocytes 2.1 K/uL (0.7-4.9) 06/27/21 04:16 Absolute Monocytes 0.6 K/uL (0.1-1.3) 06/27/21 04:16 Absolute Eosinophils 0.2 K/uL (0-0.5) 06/27/21 04:16 Absolute Basophils 0.0 K/uL (0-0.5) 06/27/21 04:16 Sodium 146 mmol/L (136-145) H 06/27/21 04:16 Potassium 3.7 mmol/L (3.5-5.1) 06/27/21 04:16 Chloride 117 mmol/L (98-107) H 06/27/21 04:16 Carbon Dioxide 23 mmol/L (21-32) 06/27/21 04:16 BUN 29 mg/dL (7-18) H 06/27/21 04:16 Creatinine 0.84 mg/dL (0.55-1.3) 06/27/21 04:16 Estimated GFR 66 mL/min (=/>90) L 06/27/21 04:16 Glucose 95 mg/dL (74-106) 06/27/21 04:16 Calcium 8.7 mg/dL (8.5-10.1) 06/27/21 04:16 Magnesium 2.0 mg/dL (1.8-2.4) 06/27/21 04:16 Albumin 2.6 g/dL (3.4-5.0) L 06/27/21 04:16 Prealbumin 14.9 mg/dL (20-40) L 06/27/21 04:16 Urine Color Cancelled 06/19/21 21:08 Urine Color Yellow (Yellow) 06/19/21 21:08 Urine Appearance Cancelled 06/19/21 21:08 Urine Appearance Turbid (Clear) 06/19/21 21:08 Urine pH 7.0 (5.0-7.0) 06/19/21 21:08 Urine pH Cancelled 06/19/21 21:08 Ur Specific [place] 1.010 (1.005-1.030) 06/19/21 21:08 Ur Specific [place] Cancelled 06/19/21 21:08 Glucose (UA)(Auto) Cancelled 06/19/21 21:08 Glucose (UA)(Auto) Negative (Negative) 06/19/21 21:08 Urine Ketones Cancelled 06/19/21 21:08 Urine Ketones Negative (Negative) 06/19/21 21:08 Urine Blood 2+ (Negative) H 06/19/21 21:08 Urine Blood Cancelled 06/19/21 21:08 Urine Nitrite Cancelled 06/19/21 21:08 Urine Nitrite Positive (Negative) H 06/19/21 21:08 Urine Bilirubin Cancelled 06/19/21 21:08 Urine Bilirubin Negative (Negative) 06/19/21 21:08 Urine Urobilinogen 0.2 mg/dL (0.2-1.0) 06/19/21 21:08 Urine Urobilinogen Cancelled 06/19/21 21:08 Ur Leukocyte Esterase 2+ (Negative) H 06/19/21 21:08 Ur Leukocyte Esterase Cancelled 06/19/21 21:08 Urine RBC <5 /HPF (NONE SEEN) 06/19/21 21:08 Urine RBC Cancelled 06/19/21 21:08 Urine WBC 10-20 /HPF (<5) H 06/19/21 21:08 Urine WBC Cancelled 06/19/21 21:08 Ur Squamous Epith Cells Cancelled 06/19/21 21:08 Ur Squamous Epith Cells CORPORATE OFFICER 06/19/21 21:08 Ur Urothelial Cells Cancelled 06/19/21 21:08 Calcium Oxalate Crystal Cancelled 06/19/21 21:08 Uric Acid Crystals Cancelled 06/19/21 21:08 Triple Phos Crystals Cancelled 06/19/21 21:08 Other Crystals Cancelled 06/19/21 21:08 Amorphous Sediment Cancelled 06/19/21 21:08 Glitter Cells Cancelled 06/19/21 21:08 Urine Bacteria >50 /HPF (<20) H 06/19/21 21:08 Urine Bacteria Cancelled 06/19/21 21:08 Hyaline Casts Cancelled 06/19/21 21:08 Fine Granular Casts Cancelled 06/19/21 21:08 Coarse Granular Casts Cancelled 06/19/21 21:08 Waxy Casts Cancelled 06/19/21 21:08 RBC Casts Cancelled 06/19/21 21:08 WBC Casts Cancelled 06/19/21 21:08 Urine Mucus Cancelled 06/19/21 21:08 Urine Other Cancelled 06/19/21 21:08 Urine Trichomonas Cancelled 06/19/21 21:08 Urine Yeast Cancelled 06/19/21 21:08 Ur Yeast w Hyphae Cancelled 06/19/21 21:08 Urine Yeast (Budding) Cancelled 06/19/21 21:08 Urine Sperm Cancelled 06/19/21 21:08 Urine Culture Reflexed Cancelled 06/19/21 21:08 Urine Culture Reflexed Not needed 06/19/21 21:08 Urine Total Volume Cancelled 06/19/21 21:08 Urine Total Protein Cancelled 06/19/21 21:08 Urine Total Protein Negative (Negative) 06/19/21 21:08 SARS-CoV-2 Rap RNA(RT-PCR) Negative (NEGATIVE) 06/26/21 05:00 Weight: 136 lb 9.6 oz Wound Present: No Closed Surgical Incision Present: No Negative Pressure Wound Therapy Present: No Physician Update: She is making good overall progress with all therapy. Doing better with attention, memory and problem solving. Supervision with ADLs. Walking 250' with independence. Up and down steps. Independent with transfers. Labs reviewed and are stable. Functional Improvement: Patient has met all short-term and long-term goals, w/ the exception of a car transfer, due to unavailability. Patient presents w/ positive attitude toward therapy, and good work ethic. Summary: Patient's care plan and intermediate frame tender goals have been reviewed and revised as necessary. Please see the Rehabilitation Signature page for all necessary signatures.
--- NOTE | 2021-06-28 12:47 | PN ---
Date of Progress Note: 06/28/2021 Subjective: The patient was seen this morning for followup. No new complaints or problems reported by her. She was sitting in wheelchair. Denies any complaints. Had a bowel movement yesterday. Objective: Vital Signs: Reviewed. HEENT: Examination unremarkable. Lungs: Clear to auscultation. Heart: Sounds normal. Abdomen: Soft. Bowel sounds normal. No guarding, rigidity, tenderness, or distention. Extremities: No leg edema. Impression: 1.Urinary tract infection. 2.Stroke. 3.Hypertension. 4.Constipation. Plan: We will continue current medication. Continue current antibiotic and physical therapy under g uidance of Dr. Smart. At home, she was catheterized in her bladder every five hours or so and her e nursing staff is doing it every six hours and I have asked nursing staff to change it to five hours if the patient feels like she cannot wait for extra hour or so like the way we are doing. I have al so asked nursing staff to change her Senokot to schedule doses instead of p.r.n. MARISA/MODL Voice ID: [id number] Report ID: [id number]
[2021-06-28] MEDS: ATORVASTATIN 40 MG TAB PO SCH (20:38)
[2021-06-28] MEDS: DOCUSATE NA/SENNA CONC 1 TAB PO PRN (20:39)
[2021-06-28] MEDS: MELATONIN 3 MG TABLET PO PRN (20:39)
[2021-06-29 05:36] VITALS: BMI 26.2
[2021-06-29] MEDS: LEVOTHYROXINE SOD 0.112 MG TAB PO SCH (06:26)
[2021-06-29] MEDS: PANTOPRAZOLE 40MG TABLET PO SCH (06:26)
[2021-06-29] MEDS: ENOXAPARIN 40 MG/0.4 ML SQ SCH (06:26)
[2021-06-29] MEDS: CIPROFLOXACIN HCL 500 MG TAB PO SCH ×2 (08:00→19:18)
[2021-06-29] MEDS: GABAPENTIN 300 MG CAP PO SCH ×3 (08:00→20:33)
[2021-06-29] MEDS: ASPIRIN EC 81 MG TAB PO SCH (08:00)
[2021-06-29] MEDS: ESCITALOPRAM 20 MG TAB PO SCH (08:00)
[2021-06-29] MEDS: OLANZapine 2.5 MG TAB PO SCH (08:01)
[2021-06-29] MEDS ORDERED: MAGNESIUM HYDROXIDE 8% 30 ML PO ONE (11:33)
--- NOTE | 2021-06-29 12:44 | PN ---
Date of Progress Note: 06/29/2021 Subjective: The patient was seen this morning for followup. She was sitting in the wheelchair. Den ied any complaints. She has not had a bowel movement in the last 3 days as she says. Objective: Vital Signs: Reviewed. HEENT: Unremarkable. Lungs: Clear to auscultation. Heart: Sounds normal. Abdomen: Soft. Bowel sounds normal. No guarding, rigidity, tenderness, distention. Extremity: No leg edema. Impression: 1.Constipation. 2.Hypertension. 3.Urinary tract infection. Plan: We will go ahead and continue Senokot as she takes at bedtime. We will give 1 dose of milk of magnesia today. Continue current antibiotics. Continue physical therapy under guidance of Dr. Landry rivera. I will see her tomorrow for followup. MARISA/MODL Voice ID: [id number] Report ID: [id number]
--- NOTE | 2021-06-29 18:17 | R.PN ---
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 SUBJECTIVE: Pt denied any depression. Pt denied any Shortness of Breath. CBC with differential is essentially normal except for mildly low Hgb of 11.5, prealbumin 14.9, Na 14 6, Cl 117, BUN 29. UA nitrite positive, bacteria > 50, WBC 10-20, blood 2+. COVID-19 negative. Encour age more water intake. Ambulated 500' using a rolling walker with independence. Up and down 35 steps with independence. VITAL SIGNS Temperature: 97.0 F SBP/DBP: 136/55 Pulse: 60 Resp: 16 MEDICATION ALLERGIES: No Known Drug Allergies (NKDA) ENVIRONMENTAL ALLERGIES: - Substance Allergies None Known - Other Allergies None Known NURSING: - Shower allowing shower - Bladder care per protocol - Skin care per protocol PRECAUTIONS: - Weight Bearing Precaution WBAT right LE ACTIVITIES OOB only with supervision THERAPIES: - Dietary and Nutrition Adequate Nutrition. Nutritional Education. Nutritional Supplements. - Occupational Therapy Cognitive Retraining. Transfer Training. Evaluate and Treat. UE Strengthening. Indep. ADL's- Higher L evel Functioning. Safety Awareness. Household Tasks. Visual Perceptual Training. - Speech Therapy Cognitive Training. Expressive Language Skills. Memory Strategies. Receptive Language Skills. Speech Intelligibility Training. - Physical Therapy Evaluate and Treat. Gait Training. Balance Training. Transfer Training. LE Strengthening. Mobility Tr aining. Safety Awareness. PHYSICAL EXAM - Gen Alert and awake Lying in bed No apparent distress Oriented to: person, time, and place - Skin No breakdown No abnormalities - Eyes No abnormalities - ENMT No abnormalities - Neck No abnormalities - CVS RRR - Chest No abnormalities - Abd Soft - GI Non distended Deferred - No abnormalities - Ext No significant edema - MSK 4+/5 weakness in right upper and lower extremities - Neuro 4/5 strength right upper and lower extremities. - Psych No abnormalities ASSESSMENT: Pt. is a 75 yo Right-handed female.On 06/16/2021 Pt. presented to [facility] with sudden onset of left-side weakness.On 06/16/2021 she was admitted to [facility] with diagnosis ACUTE ISCHEMI C R Cerebellar CVA.Her impairment category is Stroke 01 - Left Body (Right Brain) (01.1).Pre-morbidl y, Pt. was independent/mod-I in Locomotion, Safety Awareness, and Social Cognition; and she had good Endurance, Communication, Self-Care, Sphincter Control, and Transfers Control.Currently, she has defi cits of Endurance, Self-Care, Balance, Social Cognition, Safety Awareness, Locomotion, Transfers Cont rol, and Sphincter Control.Pt. is now referred to [facility] for acute in-manuel ent rehabilitation in order to maximize patient's functional independence in activities of daily whitney ng, strength, ROM, and mobility.- Rehab Goal Patient has realistic goal of being discharged at assistance level 7-Ind to reside at Home with Fami ly/Relatives. MDM/PLAN: - Physical Therapy Gait dysfunction - to improve, our physical therapists will perform initial evaluation of pt's statu s upon admission and devise an individualized program for Gait Training, and Wheel Chair mobility Inability to transfer - to improve, our physical therapists will perform initial evaluation of pt's status upon admission and devise an individualized program for Bed mobility Need for home safety evaluation - to improve, our physical therapists will perform initial evaluatio n of pt's status upon admission and devise an individualized program for Home Evaluation Need in caregiver upon discharge - to improve, our physical therapists will perform initial evaluati on of pt's status upon admission and devise an individualized program for Caregiver Training New precaution - to improve, our physical therapists will perform initial evaluation of pt's status upon admission and devise an individualized program for Patient precaution education Edema - to improve, our physical therapists will perform initial evaluation of pt's status upon admi ssion and devise an individualized program for Elevation Training, and Lymphedema Therapy Poor balance - to improve, our physical therapists will perform initial evaluation of pt's status up on admission and devise an individualized program for Balance Training Poor endurance - to improve, our physical therapists will perform initial evaluation of pt's status upon admission and devise an individualized program for Endurance Training Weakness - to improve, our physical therapists will perform initial evaluation of pt's status upon a dmission and devise an individualized program for Aquatic Therapy, Neuromuscular Reeducation, and Str engthening Achieving independence - to improve, our physical therapists will perform initial evaluation of pt's status upon admission and devise an individualized program for Community Reintegration Activities - Occupational Therapy ADL deficits - to improve, our occupation therapists will perform initial evaluation of pt's status upon admission and devise an individualized program for Bathing, Bed mobility, Community Reintegratio n, Cooking, Dressing, Eating, Fine Motor Skills, Grooming, Homemaking, Kitchen Mobility, Laundry, Pat ient Education, Safety Awareness, Splinting - Positioning, Transfers(Toilet, Tub, Shower), and Wheel Chair Management Cognitive deficits - to improve, our occupation therapists will perform initial evaluation of pt's s tatus upon admission and devise an individualized program for Cognition - orientation Need for vehicle care specialist - to improve, our occupation therapists will perform initial evaluation of pt's status upon admission and devise an individualized program for Caregiver Training Weakness - to improve, our occupation therapists will perform initial evaluation of pt's status upon admission and devise an individualized program for Aquatic Therapy, Balance, Endurance, UE ROM, and UE strengthening - Other See attached MAR (Medication Administration Record) - Diet Type Continue Regular - Diet - Liquid Texture Continue Regular - Tube Feed Continue N/A - Bladder care per protocol - Weight Bearing Precaution WBAT right LE - Skin care per protocol - Diet - Solid Texture Continue Regular - Shower allowing shower for Dementia, TBI, Stroke, or others FUNCTIONAL STATUS: UPDATED AT WEEKLY TEAM CONFERENCE - Bladder Same accident frequency: 7-Ind - No accidents in the past 7 days - Bowel Same accident frequency: 7-Ind - No accidents in the past 7 days - Walking Same score based on distance walked: 0(N/A) - Wheelchair Same score based on distance traveled: 0(N/A) FUNCTIONAL STATUS: - Self-Care A. Eating Ind B. Grooming Marjorie C. Bathing sup D. Dressing - Upper Marjorie E. Dressing - Lower sup F. Toileting Marjorie - Sphincter Control G. Bladder control Marjorie H. Bowel control Marjorie - Transfers Control I. Bed/Chair/Wheelchair Marjorie J. Toilet sup K. Tub/Shower sup - Locomotion L. Walk/Wheelchair (B) Marjorie M. Stairs sup - Communication N. Comprehension (B) Marjorie O. Expression (B) Marjorie - Social Cognition P. Social Interaction Marjorie Q. Problem Solving Marjorie R. Memory Mrajorie - Endurance Good - Balance Good - Safety Awareness Good QI SCORES: - Self-Care A. Eating 06-Independent B. Oral hygiene 03-Partial/moderate assistance C. Toileting hygiene 03-Partial/moderate assistance E. Shower/bathe self 03-Partial/moderate assistance F. Upper body dressing 03-Partial/moderate assistance G. Lower body dressing 03-Partial/moderate assistance H. Putting on/taking off footwear - Mobility A. Roll left and right 06-Independent B. Sit to lying 03-Partial/moderate assistance C. Lying to sitting on side of bed 03-Partial/moderate assistance D. Sit to stand 03-Partial/moderate assistance E. Chair/[id number] transfer 03-Partial/moderate assistance F. Toilet transfer 03-Partial/moderate assistance G. Car transfer 88-Not attempted due to medical condition or safety concerns I. Walk 10 feet 03-Partial/moderate assistance J. Walk 50 feet with two turns 88-Not attempted due to medical condition or safety concerns K. Walk 150 feet 88-Not attempted due to medical condition or safety concerns L. Walking 10 feet on uneven surfaces 88-Not attempted due to medical condition or safety concerns M. 1 step (curb) 88-Not attempted due to medical condition or safety concerns N. 4 steps 88-Not attempted due to medical condition or safety concerns O. 12 steps 88-Not attempted due to medical condition or safety concerns P. Picking up object 06-Independent R. Wheel 50 feet with two turns 88-Not attempted due to medical condition or safety concerns S. Wheel 150 feet 88-Not attempted due to medical condition or safety concerns - Bladder and Bowel Bladder continence Bowel continence - Endurance Fair - Balance Fair - Safety Awareness Fair [facility] 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
[2021-06-29] MEDS: ATORVASTATIN 40 MG TAB PO SCH (20:32)
[2021-06-29] MEDS: DOCUSATE NA/SENNA CONC 1 TAB PO SCH (20:33)
[2021-06-29] MEDS: MELATONIN 3 MG TABLET PO PRN (20:34)
[2021-06-30] MEDS: LEVOTHYROXINE SOD 0.112 MG TAB PO SCH (07:05)
[2021-06-30] MEDS: PANTOPRAZOLE 40MG TABLET PO SCH (07:05)
[2021-06-30] MEDS: OLANZapine 2.5 MG TAB PO SCH (07:48)
[2021-06-30] MEDS: GABAPENTIN 300 MG CAP PO SCH ×3 (07:49→20:32)
[2021-06-30] MEDS: ASPIRIN EC 81 MG TAB PO SCH (07:49)
[2021-06-30] MEDS: ESCITALOPRAM 20 MG TAB PO SCH (07:49)
[2021-06-30] MEDS: ENOXAPARIN 40 MG/0.4 ML SQ SCH (07:49)
[2021-06-30] MEDS: CIPROFLOXACIN HCL 500 MG TAB PO SCH ×2 (07:49→20:33)
--- NOTE | 2021-06-30 11:36 | PN ---
Date of Progress Note: 06/30/2021 Subjective: The patient was seen this morning for followup. No new complaints or problems reported by her. She was sitting in the wheelchair. Denied any complaints. She did have bowel movement yest erday and today. Objective: Vital Signs: Reviewed. HEENT: Unremarkable. Lungs: Clear to auscultation. Heart: Sounds normal. Abdomen: Soft. Bowel sounds normal. No guarding, rigidity, tenderness, distention. Extremity: No leg edema. Impression: 1.Constipation, resolved. 2.Stroke. 3.Hypertension. 4.Urinary tract infection. Plan: We will continue current medication. We will hold her stool softener today. Continue current antihypertensive medication and DVT prophylaxis as well as current antibiotic for urinary tract infe ction. I will see her tomorrow for followup. MARISA/MODL Voice ID: [id number] Report ID: [id number]
[2021-06-30] MEDS: ATORVASTATIN 40 MG TAB PO SCH (20:32)
[2021-06-30] MEDS: DOCUSATE NA/SENNA CONC 1 TAB PO SCH (20:32)
[2021-06-30] MEDS: MELATONIN 3 MG TABLET PO PRN (20:33)
[2021-07-01] MEDS: ENOXAPARIN 40 MG/0.4 ML SQ SCH (06:34)
[2021-07-01] MEDS: LEVOTHYROXINE SOD 0.112 MG TAB PO SCH (06:35)
[2021-07-01] MEDS: PANTOPRAZOLE 40MG TABLET PO SCH (06:35)
[2021-07-01] MEDS: ASPIRIN EC 81 MG TAB PO SCH (07:33)
[2021-07-01] MEDS: GABAPENTIN 300 MG CAP PO SCH ×3 (07:33→19:42)
[2021-07-01] MEDS: OLANZapine 2.5 MG TAB PO SCH (07:33)
[2021-07-01] MEDS: ESCITALOPRAM 20 MG TAB PO SCH (07:33)
[2021-07-01] MEDS: LORAZEPAM 0.5 MG TABLET PO PRN (15:01)
--- NOTE | 2021-07-01 18:00 | R.PN ---
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 SUBJECTIVE: Pt denied any depression. Pt denied any Shortness of Breath. CBC with differential is essentially normal except for mildly low Hgb of 11.5, prealbumin 14.9, Na 14 6, Cl 117, BUN 29. UA nitrite positive, bacteria > 50, WBC 10-20, blood 2+. COVID-19 negative. Encour age more water intake. Ambulated 500' using a rolling walker with independence. Up and down 40 steps with independence. VITAL SIGNS Temperature: 97.4 F SBP/DBP: 121/62 Pulse: 50 Resp: 15 MEDICATION ALLERGIES: No Known Drug Allergies (NKDA) ENVIRONMENTAL ALLERGIES: - Substance Allergies None Known - Other Allergies None Known NURSING: - Shower allowing shower - Bladder care per protocol - Skin care per protocol PRECAUTIONS: - Weight Bearing Precaution WBAT right LE ACTIVITIES OOB only with supervision THERAPIES: - Dietary and Nutrition Adequate Nutrition. Nutritional Education. Nutritional Supplements. - Occupational Therapy Cognitive Retraining. Transfer Training. Evaluate and Treat. UE Strengthening. Indep. ADL's- Higher L evel Functioning. Safety Awareness. Household Tasks. Visual Perceptual Training. - Speech Therapy Cognitive Training. Expressive Language Skills. Memory Strategies. Receptive Language Skills. Speech Intelligibility Training. - Physical Therapy Evaluate and Treat. Gait Training. Balance Training. Transfer Training. LE Strengthening. Mobility Tr aining. Safety Awareness. PHYSICAL EXAM - Gen Alert and awake Lying in bed No apparent distress Oriented to: person, time, and place - Skin No breakdown No abnormalities - Eyes No abnormalities - ENMT No abnormalities - Neck No abnormalities - CVS RRR - Chest No abnormalities - Abd Soft - GI Non distended Deferred - No abnormalities - Ext No significant edema - MSK 4+/5 weakness in right upper and lower extremities - Neuro 4/5 strength right upper and lower extremities. - Psych No abnormalities ASSESSMENT: Pt. is a 75 yo Right-handed female.On 06/16/2021 Pt. presented to [facility] with sudden onset of left-side weakness.On 06/16/2021 she was admitted to [facility] with diagnosis ACUTE ISCHEMI C R Cerebellar CVA.Her impairment category is Stroke 01 - Left Body (Right Brain) (01.1).Pre-morbidl y, Pt. was independent/mod-I in Locomotion, Safety Awareness, and Social Cognition; and she had good Endurance, Communication, Self-Care, Sphincter Control, and Transfers Control.Currently, she has defi cits of Endurance, Self-Care, Balance, Social Cognition, Safety Awareness, Locomotion, Transfers Cont rol, and Sphincter Control.Pt. is now referred to [facility] for acute in-manule ent rehabilitation in order to maximize patient's functional independence in activities of daily whitney ng, strength, ROM, and mobility.- Rehab Goal Patient has realistic goal of being discharged at assistance level 7-Ind to reside at Home with Fami ly/Relatives. MDM/PLAN: - Physical Therapy Gait dysfunction - to improve, our physical therapists will perform initial evaluation of pt's statu s upon admission and devise an individualized program for Gait Training, and Wheel Chair mobility Inability to transfer - to improve, our physical therapists will perform initial evaluation of pt's status upon admission and devise an individualized program for Bed mobility Need for home safety evaluation - to improve, our physical therapists will perform initial evaluatio n of pt's status upon admission and devise an individualized program for Home Evaluation Need in caregiver upon discharge - to improve, our physical therapists will perform initial evaluati on of pt's status upon admission and devise an individualized program for Caregiver Training New precaution - to improve, our physical therapists will perform initial evaluation of pt's status upon admission and devise an individualized program for Patient precaution education Edema - to improve, our physical therapists will perform initial evaluation of pt's status upon admi ssion and devise an individualized program for Elevation Training, and Lymphedema Therapy Poor balance - to improve, our physical therapists will perform initial evaluation of pt's status up on admission and devise an individualized program for Balance Training Poor endurance - to improve, our physical therapists will perform initial evaluation of pt's status upon admission and devise an individualized program for Endurance Training Weakness - to improve, our physical therapists will perform initial evaluation of pt's status upon a dmission and devise an individualized program for Aquatic Therapy, Neuromuscular Reeducation, and Str engthening Achieving independence - to improve, our physical therapists will perform initial evaluation of pt's status upon admission and devise an individualized program for Community Reintegration Activities - Occupational Therapy ADL deficits - to improve, our occupation therapists will perform initial evaluation of pt's status upon admission and devise an individualized program for Bathing, Bed mobility, Community Reintegratio n, Cooking, Dressing, Eating, Fine Motor Skills, Grooming, Homemaking, Kitchen Mobility, Laundry, Pat ient Education, Safety Awareness, Splinting - Positioning, Transfers(Toilet, Tub, Shower), and Wheel Chair Management Cognitive deficits - to improve, our occupation therapists will perform initial evaluation of pt's s tatus upon admission and devise an individualized program for Cognition - orientation Need for morning caregiver - to improve, our occupation therapists will perform initial evaluation of pt's status upon admission and devise an individualized program for Caregiver Training Weakness - to improve, our occupation therapists will perform initial evaluation of pt's status upon admission and devise an individualized program for Aquatic Therapy, Balance, Endurance, UE ROM, and UE strengthening - Other See attached MAR (Medication Administration Record) - Diet Type Continue Regular - Diet - Liquid Texture Continue Regular - Tube Feed Continue N/A - Bladder care per protocol - Weight Bearing Precaution WBAT right LE - Skin care per protocol - Diet - Solid Texture Continue Regular - Shower allowing shower for Dementia, TBI, Stroke, or others FUNCTIONAL STATUS: UPDATED AT WEEKLY TEAM CONFERENCE - Bladder Same accident frequency: 7-Ind - No accidents in the past 7 days - Bowel Same accident frequency: 7-Ind - No accidents in the past 7 days - Walking Same score based on distance walked: 0(N/A) - Wheelchair Same score based on distance traveled: 0(N/A) FUNCTIONAL STATUS: - Self-Care A. Eating Ind B. Grooming Marjorie C. Bathing sup D. Dressing - Upper Marjorie E. Dressing - Lower sup F. Toileting Marjorie - Sphincter Control G. Bladder control Marjorie H. Bowel control Marjorie - Transfers Control I. Bed/Chair/Wheelchair Marjorie J. Toilet sup K. Tub/Shower sup - Locomotion L. Walk/Wheelchair (B) Marjorie M. Stairs sup - Communication N. Comprehension (B) Marjorie O. Expression (B) Marjorie - Social Cognition P. Social Interaction Marjorie Q. Problem Solving Marjorie R. Memory Marjorie - Endurance Good - Balance Good - Safety Awareness Good QI SCORES: - Self-Care A. Eating 06-Independent B. Oral hygiene 03-Partial/moderate assistance C. Toileting hygiene 03-Partial/moderate assistance E. Shower/bathe self 03-Partial/moderate assistance F. Upper body dressing 03-Partial/moderate assistance G. Lower body dressing 03-Partial/moderate assistance H. Putting on/taking off footwear - Mobility A. Roll left and right 06-Independent B. Sit to lying 03-Partial/moderate assistance C. Lying to sitting on side of bed 03-Partial/moderate assistance D. Sit to stand 03-Partial/moderate assistance E. Chair/zul-td-xbfsu transfer 03-Partial/moderate assistance F. Toilet transfer 03-Partial/moderate assistance G. Car transfer 88-Not attempted due to medical condition or safety concerns I. Walk 10 feet 03-Partial/moderate assistance J. Walk 50 feet with two turns 88-Not attempted due to medical condition or safety concerns K. Walk 150 feet 88-Not attempted due to medical condition or safety concerns L. Walking 10 feet on uneven surfaces 88-Not attempted due to medical condition or safety concerns M. 1 step (curb) 88-Not attempted due to medical condition or safety concerns N. 4 steps 88-Not attempted due to medical condition or safety concerns O. 12 steps 88-Not attempted due to medical condition or safety concerns P. Picking up object 06-Independent R. Wheel 50 feet with two turns 88-Not attempted due to medical condition or safety concerns S. Wheel 150 feet 88-Not attempted due to medical condition or safety concerns - Bladder and Bowel Bladder continence Bowel continence - Endurance Fair - Balance Fair - Safety Awareness Fair [facility] DEFICITS: Endurance, Balance, Safety Awareness, Self-Care, and Mobility SIGNATURE PANEL: (SIDE STITCHER)
[2021-07-01] MEDS: DOCUSATE NA/SENNA CONC 1 TAB PO SCH (19:41)
[2021-07-01] MEDS: ATORVASTATIN 40 MG TAB PO SCH (19:42)
[2021-07-01] MEDS: MELATONIN 3 MG TABLET PO PRN (19:42)
[2021-07-01] MEDS: ENSURE ENLIVE 237 ML CAN PO SCH (19:43)
--- NOTE | 2021-07-01 20:56 | PN ---
Date of Progress Note: 07/01/2021 Subjective: The patient was seen this morning for followup. No new complaints or problems reported by her. She was lying in bed, not in any distress. Objective: Vital Signs: Reviewed. HEENT: Examination unremarkable. Lungs: Clear to auscultation. Heart: Sounds normal. Abdomen: Soft, bowel sounds normal. No guarding, rigidity, tenderness, or distention. Extremities: No leg edema. Impression: 1.Urinary tract infection. 2.Stroke. 3.Hypertension. Plan: We will go ahead and discontinue Cipro as patient has received adequate number of days of dane tment. Continue current DVT prophylaxis. Continue physical therapy under guidance of Dr. Smart. I will see her tomorrow for followup. MARISA/MODL Voice ID: [id number] Report ID: [id number]
[2021-07-02] MEDS: PANTOPRAZOLE 40MG TABLET PO SCH (06:28)
[2021-07-02] MEDS: LEVOTHYROXINE SOD 0.112 MG TAB PO SCH (06:28)
[2021-07-02] MEDS: ENOXAPARIN 40 MG/0.4 ML SQ SCH (06:29)
[2021-07-02] MEDS: ESCITALOPRAM 20 MG TAB PO SCH (07:29)
[2021-07-02] MEDS: ASPIRIN EC 81 MG TAB PO SCH (07:29)
[2021-07-02] MEDS: GABAPENTIN 300 MG CAP PO SCH ×3 (07:29→19:24)
[2021-07-02] MEDS: OLANZapine 2.5 MG TAB PO SCH (07:29)
[2021-07-02] MEDS: ENSURE ENLIVE 237 ML CAN PO SCH ×2 (07:30→19:25)
[2021-07-02] MEDS: LORAZEPAM 0.5 MG TABLET PO PRN (13:14)
[2021-07-02] MEDS: MAGNESIUM HYDROXIDE 8% 30 ML PO PRN (14:28)
[2021-07-02] MEDS: ATORVASTATIN 40 MG TAB PO SCH (19:24)
[2021-07-02] MEDS: DOCUSATE NA/SENNA CONC 1 TAB PO SCH (19:24)
[2021-07-02] MEDS: MELATONIN 3 MG TABLET PO PRN (19:24)
--- NOTE | 2021-07-03 00:03 | PN ---
Date of Progress Note: 07/02/2021 Subjective: The patient was seen this morning for followup. No new complaints or problems reported by patient, lying in bed, not in any distress. Objective: Vital Signs: Reviewed. HEENT: Examination unremarkable. Lungs: Clear to auscultation. Heart: Sounds normal. Abdomen: Soft. Bowel sounds normal. No guarding, rigidity, tenderness, or distention. Extremities: No leg edema. Impression: 1.Stroke. 2.Hypertension. 3.Hyperlipidemia. Plan: We will continue current medication. Continue current statin therapy, antihypertensive medica tion. Continue physical therapy under guidance of Dr. Smart and will continue current DVT prophyl axis. I will see her tomorrow for followup. The patient is scheduled to go home tomorrow and I will discharge her tomorrow after I see her. MARISA/MODL Voice ID: [id number] Report ID: [id number]
[2021-07-03] MEDS: LEVOTHYROXINE SOD 0.112 MG TAB PO SCH (06:24)
[2021-07-03] MEDS: PANTOPRAZOLE 40MG TABLET PO SCH (06:24)
[2021-07-03 07:04] VITALS: BP 112/61; TEMP 97.4
[2021-07-03] MEDS: GABAPENTIN 300 MG CAP PO SCH ×2 (07:22→13:57)
[2021-07-03] MEDS: ESCITALOPRAM 20 MG TAB PO SCH (07:22)
[2021-07-03] MEDS: ENSURE ENLIVE 237 ML CAN PO SCH (07:22)
[2021-07-03] MEDS: ASPIRIN EC 81 MG TAB PO SCH (07:22)
[2021-07-03] MEDS: ENOXAPARIN 40 MG/0.4 ML SQ SCH (07:23)
[2021-07-03] MEDS: OLANZapine 2.5 MG TAB PO SCH (07:26)
[2021-07-03] MEDS: LORAZEPAM 0.5 MG TABLET PO PRN (10:46)
[2021-07-03] MEDS: MAGNESIUM HYDROXIDE 8% 30 ML PO PRN (10:46)
--- NOTE | 2021-07-03 18:20 | R.PN ---
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 SUBJECTIVE: Pt denied any depression. Pt denied any Shortness of Breath. CBC with differential is essentially normal except for mildly low Hgb of 11.5, prealbumin 14.9, Na 14 6, Cl 117, BUN 29. UA nitrite positive, bacteria > 50, WBC 10-20, blood 2+. COVID-19 negative. Encour age more water intake. Ambulated 1250' using a rolling walker with independence. Up and down 25 steps with independence. She is discharged home with outpatient physical therapy. VITAL SIGNS Temperature: 97.4 F SBP/DBP: 112/61 Pulse: 51 Resp: 16 MEDICATION ALLERGIES: No Known Drug Allergies (NKDA) ENVIRONMENTAL ALLERGIES: - Substance Allergies None Known - Other Allergies None Known NURSING: - Shower allowing shower - Bladder care per protocol - Skin care per protocol PRECAUTIONS: - Weight Bearing Precaution WBAT right LE ACTIVITIES OOB only with supervision THERAPIES: - Dietary and Nutrition Adequate Nutrition. Nutritional Education. Nutritional Supplements. - Occupational Therapy Cognitive Retraining. Transfer Training. Evaluate and Treat. UE Strengthening. Indep. ADL's- Higher L evel Functioning. Safety Awareness. Household Tasks. Visual Perceptual Training. - Speech Therapy Cognitive Training. Expressive Language Skills. Memory Strategies. Receptive Language Skills. Speech Intelligibility Training. - Physical Therapy Evaluate and Treat. Gait Training. Balance Training. Transfer Training. LE Strengthening. Mobility Tr aining. Safety Awareness. PHYSICAL EXAM - Gen Alert and awake Lying in bed No apparent distress Oriented to: person, time, and place - Skin No breakdown No abnormalities - Eyes No abnormalities - ENMT No abnormalities - Neck No abnormalities - CVS RRR - Chest No abnormalities - Abd Soft - GI Non distended Deferred - No abnormalities - Ext No significant edema - MSK 4+/5 weakness in right upper and lower extremities - Neuro 4/5 strength right upper and lower extremities. - Psych No abnormalities ASSESSMENT: Pt. is a 75 yo Right-handed female.On 06/16/2021 Pt. presented to [facility] with sudden onset of left-side weakness.On 06/16/2021 she was admitted to [facility] with diagnosis ACUTE ISCHEMI C R Cerebellar CVA.Her impairment category is Stroke 01 - Left Body (Right Brain) (01.1).Pre-morbidl y, Pt. was independent/mod-I in Locomotion, Safety Awareness, and Social Cognition; and she had good Endurance, Communication, Self-Care, Sphincter Control, and Transfers Control.Currently, she has defi cits of Endurance, Self-Care, Balance, Social Cognition, Safety Awareness, Locomotion, Transfers Cont rol, and Sphincter Control.Pt. is now referred to [facility] for acute in-manuel ent rehabilitation in order to maximize patient's functional independence in activities of daily whitney ng, strength, ROM, and mobility.- Rehab Goal Patient has realistic goal of being discharged at assistance level 7-Ind to reside at Home with Fami ly/Relatives. MDM/PLAN: - Physical Therapy Gait dysfunction - to improve, our physical therapists will perform initial evaluation of pt's statu s upon admission and devise an individualized program for Gait Training, and Wheel Chair mobility Inability to transfer - to improve, our physical therapists will perform initial evaluation of pt's status upon admission and devise an individualized program for Bed mobility Need for home safety evaluation - to improve, our physical therapists will perform initial evaluatio n of pt's status upon admission and devise an individualized program for Home Evaluation Need in caregiver upon discharge - to improve, our physical therapists will perform initial evaluati on of pt's status upon admission and devise an individualized program for Caregiver Training New precaution - to improve, our physical therapists will perform initial evaluation of pt's status upon admission and devise an individualized program for Patient precaution education Edema - to improve, our physical therapists will perform initial evaluation of pt's status upon admi ssion and devise an individualized program for Elevation Training, and Lymphedema Therapy Poor balance - to improve, our physical therapists will perform initial evaluation of pt's status up on admission and devise an individualized program for Balance Training Poor endurance - to improve, our physical therapists will perform initial evaluation of pt's status upon admission and devise an individualized program for Endurance Training Weakness - to improve, our physical therapists will perform initial evaluation of pt's status upon a dmission and devise an individualized program for Aquatic Therapy, Neuromuscular Reeducation, and Str engthening Achieving independence - to improve, our physical therapists will perform initial evaluation of pt's status upon admission and devise an individualized program for Community Reintegration Activities - Occupational Therapy ADL deficits - to improve, our occupation therapists will perform initial evaluation of pt's status upon admission and devise an individualized program for Bathing, Bed mobility, Community Reintegratio n, Cooking, Dressing, Eating, Fine Motor Skills, Grooming, Homemaking, Kitchen Mobility, Laundry, Pat ient Education, Safety Awareness, Splinting - Positioning, Transfers(Toilet, Tub, Shower), and Wheel Chair Management Cognitive deficits - to improve, our occupation therapists will perform initial evaluation of pt's s tatus upon admission and devise an individualized program for Cognition - orientation Need for plant health care technician - to improve, our occupation therapists will perform initial evaluation of pt's status upon admission and devise an individualized program for Caregiver Training Weakness - to improve, our occupation therapists will perform initial evaluation of pt's status upon admission and devise an individualized program for Aquatic Therapy, Balance, Endurance, UE ROM, and UE strengthening - Other See attached MAR (Medication Administration Record) - Diet Type Continue Regular - Diet - Liquid Texture Continue Regular - Tube Feed Continue N/A - Bladder care per protocol - Weight Bearing Precaution WBAT right LE - Skin care per protocol - Diet - Solid Texture Continue Regular - Shower allowing shower for Dementia, TBI, Stroke, or others FUNCTIONAL STATUS: UPDATED AT WEEKLY TEAM CONFERENCE - Bladder Same accident frequency: 7-Ind - No accidents in the past 7 days - Bowel Same accident frequency: 7-Ind - No accidents in the past 7 days - Walking Same score based on distance walked: 0(N/A) - Wheelchair Same score based on distance traveled: 0(N/A) FUNCTIONAL STATUS: - Self-Care A. Eating Ind B. Grooming Marjorie C. Bathing sup D. Dressing - Upper Marjorie E. Dressing - Lower sup F. Toileting Marjorie - Sphincter Control G. Bladder control Marjorie H. Bowel control Marjorie - Transfers Control I. Bed/Chair/Wheelchair Marjorie J. Toilet sup K. Tub/Shower sup - Locomotion L. Walk/Wheelchair (B) Marjorie M. Stairs sup - Communication N. Comprehension (B) Marjorie O. Expression (B) Marjorie - Social Cognition P. Social Interaction Marjorie Q. Problem Solving Marjorie R. Memory Marjorie - Endurance Good - Balance Good - Safety Awareness Good QI SCORES: - Self-Care A. Eating 06-Independent B. Oral hygiene 03-Partial/moderate assistance C. Toileting hygiene 03-Partial/moderate assistance E. Shower/bathe self 03-Partial/moderate assistance F. Upper body dressing 03-Partial/moderate assistance G. Lower body dressing 03-Partial/moderate assistance H. Putting on/taking off footwear - Mobility A. Roll left and right 06-Independent B. Sit to lying 03-Partial/moderate assistance C. Lying to sitting on side of bed 03-Partial/moderate assistance D. Sit to stand 03-Partial/moderate assistance E. Chair/kjx-jn-jraws transfer 03-Partial/moderate assistance F. Toilet transfer 03-Partial/moderate assistance G. Car transfer 88-Not attempted due to medical condition or safety concerns I. Walk 10 feet 03-Partial/moderate assistance J. Walk 50 feet with two turns 88-Not attempted due to medical condition or safety concerns K. Walk 150 feet 88-Not attempted due to medical condition or safety concerns L. Walking 10 feet on uneven surfaces 88-Not attempted due to medical condition or safety concerns M. 1 step (curb) 88-Not attempted due to medical condition or safety concerns N. 4 steps 88-Not attempted due to medical condition or safety concerns O. 12 steps 88-Not attempted due to medical condition or safety concerns P. Picking up object 06-Independent R. Wheel 50 feet with two turns 88-Not attempted due to medical condition or safety concerns S. Wheel 150 feet 88-Not attempted due to medical condition or safety concerns - Bladder and Bowel Bladder continence Bowel continence - Endurance Fair - Balance Fair - Safety Awareness Fair CURRENT FUNC. DEFICITS: Endurance, Balance, Safety Awareness, Self-Care, and Mobility SIGNATURE PANEL: (HOSPITAL CARRIER)
--- NOTE | 2021-07-03 22:39 | DS ---
Date of Discharge: 07/03/2021 Disposition: Discharged to go home. Physical Examination: HEENT: Unremarkable. Lungs: Clear to auscultation. Heart: Sounds normal. Abdomen: Soft. Bowel sounds normal. No guarding, rigidity, tenderness, or distention. Extremities: No leg edema. Laboratory Data: Upon admission, white count 7.9, hemoglobin 11.2, and platelet count 169, and this was on 06/20/2021, and repeat CBC on 06/27/2021, white count 6, hemoglobin 11.5, platelets 233. Upon admission, sodium 149, potassium 3.5, chloride 118, bicarb 24, BUN 22, creatinine 0.78, and glucose 92, and on 06/27/2021 sodium 146, potassium 3.7, chloride 117, bicarb 23, BUN 29, creatinine 0.84, gl ucose 95. Urine culture grew E coli and Enterococcus faecalis, and according to sensitivity result, the patient was treated with Cipro. Hospital Course: This is a 75-year-old pleasant female patient who had stroke and was life flighted to [place] to [facility] where she was treated. 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 After her treatment at [facility], she was sent to our rehab facility for rehab therap y. The patient received physical therapy under guidance of Dr. Smart. Overall, her condition imp roved. She did have urinary tract infection, received antibiotics Cipro for that. Other medical pro blems remained stable. The patient has a practice managers which is her Holter monitor in place and [facility] has appointment to go to [place] to see a neurologist on August 06, 2021, and she will keep that a ppointment, and she has instruction to return this Holter monitor at end of 1 month and she will retu rn that. Overall, her condition otherwise remained stable and she was discharged to go home in [facility] condition today with following discharge medications and instructions. Final Diagnoses: 1.Stroke. 2.Urinary tract infection. 3.Anemia, unspecified. 4.Hypertension. 5.Hyperlipidemia. 6.Hypothyroidism. 7.Gastroesophageal reflux disease. 8.Chronic constipation. 9.Bladder cancer. 10.Anxiety. 11.Depression. 12.Insomnia. 13.Osteoarthritis, multiple sites. Discharge Medications And Instructions: 1.Continue all prior home medication except stop atorvastatin 20 mg dose and start [facility]. 2.Take aspirin 325 mg p.o. daily. 3.Take Senokot-S 2 tablets by mouth at bedtime. 4.Follow up at my office week after. 5.Stop spironolactone. 6.The patient was instructed to bring all her home medication bottles with her at the time of follow up visit. MARISA/MODL Voice ID: [id number] Report ID: [id number]
== END 2021-07-03 15:20 | disposition home or self-care (01) | DRG 57 ==
LOC: 5TH 18:31
PROVIDERS: ADMIT Internal Medicine; ATTEND Internal Medicine
DX: I69.354 Hemiplegia and hemiparesis following cerebral infarction affecting left non-dominant side (principal); N39.0 Urinary tract infection, site not specified; I10 Essential (primary) hypertension; E03.9 Hypothyroidism, unspecified; E78.5 Hyperlipidemia, unspecified; K21.9 Gastro-esophageal reflux disease without esophagitis; M19.90 Unspecified osteoarthritis, unspecified site; D64.9 Anemia, unspecified; F41.8 Other specified anxiety disorders; K59.09 Other constipation; G47.00 Insomnia, unspecified; B96.20 Unspecified Escherichia coli [E. coli] as the cause of diseases classified elsewhere; B95.2 Enterococcus as the cause of diseases classified elsewhere; Z85.51 Personal history of malignant neoplasm of bladder; Z88.2 Allergy status to sulfonamides; Z20.822 Contact with and (suspected) exposure to COVID-19
CPT/HCPCS: 36415; 80048; 81001; 82040; 83735; 84134; 85025; 87077; 87086; 87088; 87186; 92523; 97110; 97112; 97116; 97127; 97161; 97530; 97542; J1650; U0003

== ENCOUNTER 2022-03-26 17:28 | Inpatient (IN) | payer OTHER, BC ==
--- OUTSIDE RECORDS SUMMARY | 2022-03-26 17:42 | XMS REPORT | Continuity of Care Document ---
:1945 Author Organization [facility] t Address [address] [place] [address] Dr. Lambert. [id number] Care Team Providers Name Role Phone JUAN R OLIVER Primary Care Physician Unavailable EMILY ADMAS Attending Clinician Unavailable Juan R Oliver Attending Clinician Unavailable VITA JAIMES Attending Clinician Unavailable BIRD YEN Attending Clinician Unavailable Bird Yen MD Attending Clinician Virtual, Surgeon Attending Clinician Unavailable VITA JAIMES Attending Clinician Unavailable OMAR YEN Attending Clinician Unavailable 1, [facility] Room Attending Clinician Unavailable FERNANDO POOLE Attending Clinician Unavailable Michael Campos Attending Clinician ALEC FOSS Attending Clinician Unavailable Omar Yen MD Attending Clinician Vita Jaimes MD Attending Clinician Fernando Poole MD Attending Clinician Doctor Unassigned, [place] Attending Clinician Unavailable 2, [facility] Attending Clinician Unavailable Alec Foss MD Attending Clinician Nestor Fuentes MD Attending Clinician C-Arm, Pmr Siemens Attending Clinician Chas MARTIN, Giancarlo Attending Clinician 13, [facility] Chair Attending Clinician Uzma PhD, Shun Attending Clinician Frandy MARTIN, Manny Leos Attending Clinician Mercy Garcia Attending Clinician Juanita RAYMUNDO, Kayleigh Attending Clinician Unavailable VITA JAIMES Admitting Clinician Unavailable BIRD YEN Admitting Clinician Unavailable Payers Payer Name Policy Type Policy Number Effective Date Expiration Date S polly MEDICARE PART A AND [id number] 2020 B 00:00:00 BCBS HMO [id number] 2017 BLUE/ESSENTIALS 00:00:00 MEDICARE A B [id number] 2020 00:00:00 MEDICARE PART A \\T\\ [id number] B - MEDICARE HEALTHSELECT [id number] 2020 SECONDARY 65+ - 00:00:00 BCBS CVCP-BCBS [id number] O BLUE BEHAVIORAL [id number] FORMERLY [facility] MEDICARE PART A \\T\\ [id number] 2020 B 00:00:00 BCBS TRADITIONAL [id number] 2020 00:00:00 CDC REVIEW [id number] 2020 00:00:00 Problems Condition Condition Condition Status Onset Resolution Last Treating Co mments Source Name Details Category Date Date Treatment Clinician Date Overactive Overactive Disease Active [facility] bladder bladder 08-08 College 00:00: of 00 Medicin e Constipati Constipati Disease Active [facility] on on 08-02 College 00:00: of 00 Medicin e ORTEGA ORTEGA Disease Active [facility] [place] (stress (stress 08-02 College urinary urinary 00:00: of incontinen incontinen 00 Me dicin ce, ce, e female) female) Thyroid Thyroid Disease Active 2019-07 Univers nodule nodule 2-13 ity of 00:00: [place] 00 [facility] Post-menop Post-menop Disease Active 2019-07 U nivers ausal ausal 2-13 ity of bleeding bleeding 00:00: Medical Branch Hyperchole Hyperchole Disease Active 2019-07 U patria steremia steremia 2-13 ity of 00:00: [place] 00 [facility] Vaginal Vaginal Disease Active 2019-07 [facility] [place] bleeding bleeding 1-19 Colleg e 00:00: of 00 Medicin e Port-A-Cat Port-A-Cat Disease Active [facility] h in place h in place 8-11 Co llege 00:00: of 00 Medicin e Urothelial Urothelial Disease Active [facility] Malignant Malignant Disease Active [facility] neoplasm neoplasm 4-07 Colleg e of of 00:00: of overlappin overlappin 00 Me dicin g sites of g sites of e bladder bladder (HCCode) (HCCode) Bladder Bladder Disease Active [facility] 3[facility]27 [facility] Malignant Malignant Disease Active Uni vers neoplasm neoplasm 3-27 ity of of of 00:00: [place] overlappin overlappin 00 Me dical g sites of g sites of Br anch bladder bladder Cervical Cervical Problem Active 2021-07-06 [facility] radiculopa radiculopa 2- 23:13:08 l thy thy 00:00: Aleksey (disorder) (disorder) 00 Active 09/13/2015 Problem 07/06/2021 [facility] Common Common Problem Active 2021-07-06 [facility] marylu peroneal peroneal 2- 23:13:08 l nerve nerve 00:00: [place] lesion lesion 00 (disorder) (disorder) Active 09/13/2015 Problem 07/06/2021 [facility] Lumbar Lumbar Problem Active 2021-07-06 [facility] marylu radiculopa radiculopa - 23:13:08 l thy thy 00:00: [place] (disorder) (disorder) 00 Active 09/13/2015 Problem 07/06/2021 [facility] Neck pain Neck pain Problem Active 2021-07-06 [facility] (finding) (finding) 1- 23:13:08 l Active 00:00: [place] 08/17/2015 00 Problem 07/06/2021 [facility] Paresthesi Paresthes Problem Active 2016-0 2021-07-06 [facility] a ia - 23:13:08 l (finding) (finding) 00:00: Herm beto Active 00 08/17/2015 Problem 07/06/2021 [facility] 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 (disorder) (disorder) Active Problem 07/06/2021 [facility] Dizziness Dizziness Problem Active 2021-07-06 [facility] (finding) (finding) 23:13:08 l Active Aleksey Problem 07/06/2021 [facility] Malignant Malignant Problem Active Com mon neoplasm neoplasm [facility] of urinary of urinary - [facility] bladder, bladder, St unspecifie unspecifie Marquita kes d site d [facility] Medical [place] Hip pain Hip pain Problem Active 2021-07-06 [facility] (finding) (finding) 23:13:08 l Active Aleksey Problem 07/06/2021 [facility] Hypertensi Hypertens Problem Active 2021-07-06 [facility] ve libby 23:13:08 l disorder, disorder, Herm beto systemic systemic arterial arterial (disorder) (disorder) Active Problem 07/06/2021 [facility] Hyperlipid Hyperlipi Problem Active 2021-07-06 [facility] emia demia 23:13:08 l (disorder) (disorder) He rmann Active Problem 07/06/2021 [facility] Hypothyroi Hypothyro Problem Active 2021-07-06 [facility] dism idism 23:13:08 l (disorder) (disorder) [place] r[place] Active Problem 07/06/2021 [facility] Low back Low back Problem Active 2021-07-06 [facility] pain pain 23:13:08 l (disorder) (disorder) [place] r[place] Active Problem 07/06/2021 [facility] Recurrent Recurrent Problem Active 2021-07-06 [facility] falls falls 23:13:08 l (finding) (finding) Herm beto Active Problem 07/06/2021 [facility] Anxiety Anxiety Problem Active 2021-07-06 Me moria (finding) (finding) 23:13:08 l Active Aleksey Problem 07/06/2021 [facility] Peripheral Periphera Problem Active 2021-07-06 [facility] nerve l nerve 23:13:08 l disease disease Aleksey (disorder) (disorder) Active Problem 07/06/2021 [facility] Malignant Malignant Problem Active Com mon neoplasm neoplasm [facility] - [facility] overlappin overlappin St g sites of g sites of Marquita kes bladder bladder [facility] Visual Visual Problem Active 2021-07-06 [facility] marylu disturbanc disturbanc 23:13:08 l e e Aleksey (disorder) (disorder) Active Problem 07/06/2021 [facility] Oral Oral Problem Active 2021-07-06 Memor ia dyskinesia dyskinesia 23:13:08 l (disorder) (disorder) [place] Active Problem 07/06/2021 [facility] Allergies, Adverse Reactions, Alerts Allergy Allergy Status Severity Reaction(s) Onset Inactive Treating Comm ents Source Name Type Date Date Clinician Sulfa Propensi Active Swelling 2019-[address] (Sulfona ty to 3-23 [facility] mide adverse 00:00: Medical Antibiot reaction 00 [place] ics) s SULFA Drug Active Swelling 2019-0 Univers (SULFONA Class 3-23 ity of MIDE 00:00: [place] ANTIBIOT [address] [facility] ICS) Branch SULFA Allergy Active Swelling 2019-[address] (SULFONA 3-23 [facility] MIDE 00:00: Medical ANTIBIOT 00 [place] ICS) Sulfa Propensi Active Swelling 2019-0 [facility] [place] Antibiot ty to 3-17 [place] ics adverse 00:00: of reaction 00 Medicin s to e drug sulfa sulfa Active [facility] drugs drugs l [place] NO KNOWN Drug Active Univers ALLERGIE Class ity of S [place] [facility] Family History Family Member Diagnosis Comments Start Date Stop Date Source Natural father Diabetes [facility] Natural mother Breast Cancer [facility] Natural mother High Blood Pressure [facility] Social History Social Habit Start Date Stop Date Quantity Comments Source History SDOH [facility] Alcohol Std Drinks Medica l Center History SDOH [facility] Alcohol Binge Medical Hali ter History SDOH [facility] Alcohol Comment Medical C enter Alcohol intake 2022-03-18 2022-03-[address] Alexia es 00:00:00 00:00:00 non-drinker of Medical Ce nter alcohol (finding) Exposure to 2022-02-04 2022-02-14 Not sure [facility] e SARS-CoV-2 (event) 00:00:00 10:42:00 of Med icine Tobacco use and 2019-10-10 2019-10-[address] Marquita kes exposure 00:00:00 00:00:00 Medical Center History SDOH 2019-10-10 2019-10-[address] [facility] Alcohol Frequency 00:00:00 00:00:[address] [facility] Sex Assigned At [address] Marquita kes 00:00:00 00:00:00 Medical Center Smoking Status Start Date Stop Date Source Unknown if ever smoked [facility] Social History [facility] Medications Ordered Filled Start Stop Current Ordering Indication Dosage Frequency Signature Comments Components Source Medication Medication Date Date Medication? Clinician (SIG) Name Name polycarboph Yes 625mg [id number] Take [address] il 8-30 [id number] mg by [facility] (FIBERCON) 11:05: 3D mouth 3 Medi mariama 625 mg 32 (three) Center tablet times daily. biotin Yes QD Take by [facility] 2,500 mcg 8-30 mouth [facility] Cap 11:05: daily. [address] MAGNESIUM Yes Take by [facility]I S t GLYCINATE 8-30 mouth. [facility] ORAL 11:05: [address] UNKNOWN Yes L-Theanine [facility] 8-30 200 mg [facility] 11:05: daily . [address] ascorbic Yes 500mg QD Take [address] acid, 8-30 mg by [facility] vitamin C, 11:05: mouth Medica l (VITAMIN C) 32 daily. [place] 500 MG tablet TURMERIC Yes Take by [facility] ORAL 8-30 mouth. [facility] 11:05: [address] triamterene Yes 1{capsu QD Take [address] -hydroCHLOR 8-30 le} capsule by Marquita ocampo Othiazide 11:05: mouth Medical (DYAZIDE) 32 every Center 37.5-25 mg morning. per capsule potassium Yes 10meq QD Take [address] chloride 8-30 mEq by [facility] (MICRO-K) 11:05: mouth Medical 10 mEq CR 32 daily . Center capsule levothyroxi 2022-0 Yes 125ug Take [address] ne 8-30 mcg by [facility] (SYNTHROID, 11:05: mouth Medic al LEVOTHROID) 32 Every Center 125 MCG morning on tablet an empty stomach. gabapentin Yes 300mg QD Take [address] (NEURONTIN) 8-30 mg by [facility] 300 MG 11:05: mouth Medical capsule 32 daily. Center atorvastati Yes 20mg QD Take [address] n (LIPITOR) 8-30 by mouth Luke s 20 MG 11:05: daily. Medical tablet 32 Center lamoTRIgine 0 Yes 50mg QD Take [address] (LAMICTAL) 8-30 by mouth [facility]ukes 25 MG 11:05: daily. Medical tablet 32 Center hydrOXYzine Yes anxiety 50mg Q.[id number] Take [address] (ATARAX) 25 8-30 [id number] by mouth 3 [facility]ukes MG tablet 11:05: 3D (three) Medic al 32 times Center daily . baclofen Yes 10mg Q.5D Take [address] (LIORESAL) 8-30 by mouth 2 Alexia es 10 MG 11:05: (two) Medical tablet 32 times Center daily. multivitami Yes 1{capsu QD Take [address] n capsule 8-30 le} capsule by Luke s 11:05: mouth Medical 32 daily. [place] vit A/C/E Yes QD Take by CHI S t ac/ZnOx/cup 8-30 mouth [facility] rory oxide 11:05: daily. Medica l (EYE 32 Center VITAMIN AND MINERALS ORAL) b complex Yes 1{capsu QD Take [address] vitamins 8-30 le} capsule by [facility] capsule 11:05: mouth Medical 32 daily. Center calcium Yes 1{tbl} Q.5D Take [address] citrate-vit 8-30 tablet by Alexia es oliver D 11:05: mouth 2 Medical (CITRACAL+D 32 (two) Center ) 315-200 times mg-unit per daily. tablet omega-3s-dh Yes QD Take by [facility] a-epa-fish 8-30 mouth [facility] oil (FISH 11:05: daily. Medica l OIL) 120 32 Center mg-180 mg- 60 mg-1,200 mg CpDR lactobacill 0 Yes 1{capsu QD Take [address] us 8-30 le} capsule by Wilver jimenez, 11:05: mouth Medica l GG, 32 daily. Center (CULTURELLE ) 10 billion cell capsule gabapentin 0 Yes 300mg Take 300 [facility] (NEURONTIN) 8-02 mg by [place] 300 MG 15:41: mouth of capsule 27 daily. Medicin e levothyroxi 0 Yes 112ug Take 112 [facility] ne 8-02 mcg by [place] (SYNTHROID) 15:41: mouth of 112 MCG 27 daily. Medicin tablet e olanzapine 0 Yes 5mg Take 5 mg [facility] (ZYPREXA) 5 8-02 by mouth Shanel ege MG tablet 15:41: nightly. of 27 Medicin e Aspirin 81 0 Yes 81mg Take 81 mg [facility] MG tablet 8-02 by mouth Colleg e 15:41: daily. of 27 Medicin e atorvastati Yes 80mg Take 80 mg [facility] n (LIPITOR) 8-02 by mouth Shanel ege 80 MG 15:41: daily. of tablet 27 Medicin e gabapentin 0 Yes 300mg Take 300 [facility] (NEURONTIN) 7-29 mg by [place] 300 MG 11:32: mouth of capsule 54 daily. Medicin e levothyroxi 0 Yes 112ug Take 112 [facility] ne 7-29 mcg by [place] (SYNTHROID) 11:32: mouth of 112 MCG 54 daily. Medicin tablet e olanzapine 0 Yes 5mg Take 5 mg [facility] (ZYPREXA) 5 7-29 by mouth Shanel ege MG tablet 11:32: nightly. of 54 Medicin e Aspirin 81 2021-0 Yes 81mg Take 81 mg [facility] MG tablet 7-29 by mouth Colleg e 11:32: daily. of 54 Medicin e atorvastati 0 Yes 80mg Take 80 mg [facility] n (LIPITOR) 7-29 by mouth Shanel ege 80 MG 11:32: daily. of tablet 54 Medicin e gabapentin 0 Yes 300mg Take 300 [facility] (NEURONTIN) 4-29 mg by [place] 300 MG 10:38: mouth of capsule 03 daily. Medicin e levothyroxi 0 Yes 112ug Take 112 [facility] ne 4-29 mcg by [place] (SYNTHROID) 10:38: mouth of 112 MCG 03 daily. Medicin tablet e olanzapine 0 Yes 5mg Take 5 mg [facility] (ZYPREXA) 5 4-29 by mouth Shanel ege MG tablet 10:38: nightly. of Medicin e Aspirin 81 0 Yes 81mg Take 81 mg [facility] MG tablet 11-15 by mouth Colleg e 10:38: daily. of Medicin e Aspirin Yes 81mg Take 81 mg [facility] (ASPIR-LOW) 3 by mouth Shanel ege 81 MG 15:04: daily. of tablet 50 Medicin e gabapentin Yes 300mg Take 300 [facility] (NEURONTIN) 3- mg by [place] 300 MG 15:04: mouth of capsule 33 daily. Medicin e levothyroxi Yes 112ug Take 112 [facility] ne 3-01 mcg by [place] (SYNTHROID) 15:04: mouth of 112 MCG 33 daily. Medicin tablet e olanzapine Yes 5mg Take 5 mg [facility] (ZYPREXA) 5 09-17 by mouth Shanel ege MG tablet 15:04: nightly. of 33 Medicin e atorvastati 2021- No 20mg Take 20 mg Hermelindo n (LIPITOR) 09-17 by mouth Col lege 20 MG 15:04: 00:00 daily. of tablet 29 :00 Medicin e Turmeric 2021-2021- No 1{sonia Take 1 [facility] Curcumin 3-09-17 t} Caplet by Colle ge 500 MG CAPS 15:04: 00:00 mouth See of 29 :00 Admin Medicin Instructio e ns. trospium Yes [id number] 20mg Take 1 [facility] (SANCTURA) 3- Tablet by Shanel ege 20 MG 00:00: mouth 3 of tablet 00 times Medicin daily e (before meals). trospium 2021-0 Yes [id number] 20mg Take 1 [facility] (SANCTURA) 3- Tablet by Shanel ege 20 MG 00:00: mouth 3 of tablet 00 times Medicin daily e (before meals). trospium 2021-0 Yes [id number] 20mg Take 1 [facility] (SANCTURA) 3-01 Tablet by Shanel ege 20 MG 00:00: mouth 3 of tablet 00 times Medicin daily e (before meals). gabapentin 0 Yes 300mg Take 300 [facility] (NEURONTIN) 1-28 mg by [place] 300 MG 10:09: mouth of capsule 27 daily. Medicin e atorvastati 0 Yes 20mg Take 20 mg [facility] [place] n (LIPITOR) 1-28 by mouth Shanel ege 20 MG 10:09: daily. of tablet 27 Medicin e levothyroxi Yes 112ug Take 112 [facility] ne 1-28 mcg by [place] (SYNTHROID) 10:09: mouth of 112 MCG 27 daily. Medicin tablet e olanzapine 0 Yes 5mg Take 5 mg [facility] (ZYPREXA) 5 1-28 by mouth Shanel ege MG tablet 10:09: nightly. of 27 Medicin e Turmeric Yes 1{sonia Take 1 [facility] Curcumin 1-28 t} Caplet by Colleg e 500 MG CAPS 10:09: mouth See o f 27 Admin Medicin Instructio e ns. gabapentin 0 Yes 300mg Take 300 [facility] (NEURONTIN) 1-20 mg by [place] 300 MG 11:03: mouth of capsule 14 daily. Medicin e atorvastati Yes 20mg Take 20 mg [facility] n (LIPITOR) 1-20 by mouth Shanel ege 20 MG 11:03: daily. of tablet 14 Medicin e levothyroxi 0 Yes 112ug Take 112 [facility] ne 1-20 mcg by [place] (SYNTHROID) 11:03: mouth of 112 MCG 14 daily. Medicin tablet e olanzapine 0 Yes 5mg Take 5 mg [facility] (ZYPREXA) 5 1-20 by mouth Shanel ege MG tablet 11:03: nightly. of 14 Medicin e Turmeric 0 Yes 1{sonia Take 1 [facility] Curcumin 1-20 t} Caplet by Colleg e 500 MG CAPS 11:03: mouth See o f 14 Admin Medicin Instructio e ns. atorvastati 2020-07 Yes TAKE 1 [facility] n (LIPITOR) 2-15 TABLET BY Col lege 80 MG 00:00: MOUTH of tablet 00 DAILY AT Medicin BEDTIME e atorvastati 2020-07 Yes [facility] [place] n (LIPITOR) 2-15 [place] 80 MG 00:00: of tablet 00 Medicin e atorvastati 2020-07- No [facility] (LIPITOR) 2-15 03- College 80 MG 00:00: 00:00 of tablet 00 :00 Medicin e olanzapine 2020-07 Yes 5 mg = 1 Mem oria 5 MG Oral 1-04 tab, PO, l Tablet 15:28: TID, 0 [place] 00 Refill(s) olanzapine 2020-07 Yes 5 mg = 1 Mem oria 5 MG Oral 1-04 tab, PO, l Tablet 15:28: TID, 0 [place] 00 Refill(s) gabapentin 2020-07 Yes 400 mg = 1 M emoria 400 MG Oral 1-04 cap, PO, l Capsule 15:24: Bedtime, # Herm beto 00 90 cap, 1 Refill(s), Pharmacy: [facility][id number], 157.48, cm, 05/23/21 10:05:00 CDT, Height, 63.182, kg, 05/23/21 10:05:00 CDT, Weight gabapentin 2020-07 Yes 400 mg = 1 M emoria 400 MG Oral 1-04 cap, PO, l Capsule 15:24: Bedtime, # Herm beto 00 90 cap, 1 Refill(s), [id number], 157.48, cm, 05/23/21 10:05:00 CDT, Height, 63.182, kg, 05/23/21 10:05:00 CDT, Weight docusate 2020-07 Yes TAKE 1 [facility] [place] sodium 0-26 CAPSULE BY [place] (COLACE) 00:00: MOUTH of 100 MG 00 DAILY Medicin capsule e omeprazole 2020-07 Yes TAKE 1 [facility] (PRILOSEC) 0-26 CAPSULE BY [facility] lege 40 MG 00:00: MOUTH of capsule 00 DAILY Medicin e polyethylen 2020-07 Yes MIX 17 [facility] e glycol 0-26 GRAMS INTO Colle ge (GLYCOLAX) 00:00: 8 [facility] of 17 GM/SCOOP 00 OF WATER Medi khushi powder OR JUICE e AND DRINK BY MOUTH EVERY OTHER DAY docusate 2020-07 Yes TAKE 1 [facility]indo sodium 0-26 CAPSULE BY College (COLACE) 00:00: MOUTH of 100 MG 00 DAILY Medicin capsule e omeprazole 2020-07 Yes TAKE 1 [facility] (PRILOSEC) 0-26 CAPSULE BY Col lege 40 MG 00:00: MOUTH of capsule 00 DAILY Medicin e polyethylen 2020-07 Yes MIX 17 [facility] glycol 0-26 GRAMS INTO Colle ge (GLYCOLAX) 00:00: 8 [facility] of 17 GM/SCOOP 00 OF WATER Medi khushi powder OR JUICE e AND DRINK BY MOUTH EVERY OTHER DAY docusate 2020-07 Yes TAKE 1 [facility] sodium 0-26 CAPSULE BY [place] (COLACE) 00:00: MOUTH of 100 MG 00 DAILY Medicin capsule e docusate 2020-07 Yes TAKE 1 [facility] [place] sodium 0-26 CAPSULE BY [place] (COLACE) 00:00: MOUTH of 100 MG 00 DAILY Medicin capsule e docusate 2020-07 Yes TAKE 1 [facility] [place] sodium 0-26 CAPSULE BY [place] (COLACE) 00:00: MOUTH of 100 MG 00 DAILY Medicin capsule e docusate 2020-07 Yes TAKE 1 [facility] [place] sodium 0-26 CAPSULE BY [place] (COLACE) 00:00: MOUTH of 100 MG 00 DAILY Medicin capsule e omeprazole 2020-07- No TAKE 1 [facility] (PRILOSEC) 0-26 03-01 CAPSULE BY Co llege 40 MG 00:00: 00:00 MOUTH of capsule 00 :00 DAILY Medicin e polyethylen 2020-07- No MIX 17 [facility] e glycol 0-26 03-01 GRAMS INTO Shanel ege (GLYCOLAX) 00:00: 00:00 8 [facility] of 17 GM/SCOOP 00 :00 OF WATER Medi khushi powder OR JUICE e AND DRINK BY MOUTH EVERY OTHER DAY gabapentin 2020-07 Yes 300mg Take 300 [facility] (NEURONTIN) 0-19 mg by [place] 300 MG 14:36: mouth of capsule 24 daily. Medicin e atorvastati 2020-07 Yes 20mg Take 20 mg [facility] [place] n (LIPITOR) 0-19 by mouth Shanel ege 20 MG 14:36: daily. of tablet 24 Medicin e levothyroxi 2020-07 Yes 112ug Take 112 [facility] ne 0-19 mcg by [place] (SYNTHROID) 14:36: mouth of 112 MCG 24 [...] 300 [facility] (NEURONTIN) 7-13 mg by [place] 300 MG 13:24: mouth of capsule 06 daily. Medicin e atorvastati Yes 20mg Take 20 mg [facility] n (LIPITOR) 7-13 by mouth Shanel ege 20 MG 13:24: daily. of tablet 06 Medicin e levothyroxi Yes 112ug Take 112 [facility] ne 7-13 mcg by [place] (SYNTHROID) 13:24: mouth of 112 MCG 06 daily. Medicin tablet e olanzapine Yes 5mg Take 5 mg [facility] (ZYPREXA) 5 7-13 by mouth Shanel ege MG tablet 13:24: nightly. of 06 Medicin e clonazepam Yes 1{tbl} Take 1 [facility] (KLONOPIN) 7-13 Tablet by Shanel ege 0.5 MG 13:24: mouth at of tablet 06 bedtime. Medicin e Turmeric Yes 1{sonia Take 1 [facility] Curcumin 7-13 t} Caplet by Colleg e 500 MG CAPS 13:24: mouth See o f 06 Admin Medicin Instructio e ns. gabapentin Yes 300mg Take 300 [facility] (NEURONTIN) 7-13 mg by [place] 300 MG 13:24: mouth of capsule 06 daily. Medicin e atorvastati Yes 20mg Take 20 mg [facility] n (LIPITOR) - by mouth Shanel ege 20 MG 13:24: daily. of tablet 06 Medicin e levothyroxi Yes 112ug Take 112 [facility] ne 7-13 mcg by College (SYNTHROID) 13:24: mouth of 112 MCG 06 daily. Medicin tablet e olanzapine Yes 5mg Take 5 mg [facility] (ZYPREXA) 5 01-29 by mouth Shanel ege MG tablet 13:24: nightly. of 06 Medicin e escitalopra 2020-0 2020- No 5mg Take 5 mg [facility] [place] m (LEXAPRO) 01-29 07 by mouth Col lege 5 MG tablet 13:23: 00:00 daily. of 47 :00 Medicin e escitalopra 2020-0 2020- No 5mg Take 5 mg [facility] [place] m (LEXAPRO) 01-29 by mouth Col lege 5 MG tablet 13:23: 00:00 daily. of 47 :00 Medicin e escitalopra 0 Yes 20mg Take 20 mg [facility] m (LEXAPRO) - by mouth Shanel ege 20 MG 00:00: daily. of tablet 00 Medicin e escitalopra 0 Yes 20mg Take 20 mg [facility] [place] m (LEXAPRO) 01-17 by mouth Shanel ege 20 MG 00:00: daily. of tablet 00 Medicin e escitalopra 0 Yes 20mg Take 20 mg [facility] [place] m (LEXAPRO) - by mouth Shanel ege 20 MG 00:00: daily. of tablet 00 Medicin e escitalopra 0 Yes 20mg Take 20 mg [facility] m (LEXAPRO) 7- by mouth Shanel ege 20 MG 00:00: daily. of tablet 00 Medicin e escitalopra 0 Yes 20mg Take 20 mg [facility] m (LEXAPRO) 7- by mouth Shanel ege 20 MG 00:00: daily. of tablet 00 Medicin e escitalopra 0 Yes 20mg Take 20 mg [facility] [place] m (LEXAPRO) 7- by mouth Shanel ege 20 MG 00:00: daily. of tablet 00 Medicin e escitalopra 0 Yes 20mg Take 20 mg [facility] [place] m (LEXAPRO) 7-01 by mouth Shanel ege 20 MG 00:00: daily. of tablet 00 Medicin e escitalopra 0 Yes 20mg Take 20 mg [facility] [place] m (LEXAPRO) 7-01 by mouth Shanel ege 20 MG 00:00: daily. of tablet 00 Medicin e baclofen 10 Yes 10 mg = 1 M emoria mg oral 6-23 tab, PO, l tablet 14:58: Bedtime, # Bing nn 00 30 tab, 3 Refill(s), Pharmacy: [facility] #[id number], 157.48, cm, 01/09/21 9:30:00 CDT, Height, 61.818, kg, 01/09/21 9:30:00 CDT, Weight baclofen 10 Yes 10 mg = 1 M emoria mg oral 6-23 tab, PO, l tablet 14:58: Bedtime, # Bing nn 00 30 tab, 3 Refill(s), Pharmacy: [facility] #[id number], 157.48, cm, 01/09/21 9:30:00 CDT, Height, 61.818, kg, 01/09/21 9:30:00 CDT, Weight baclofen 0 Yes 10mg Take 10 mg [facility] (LIORESAL) 6-23 by mouth Colle ge 10 MG 00:00: at of tablet 00 bedtime. Medicin e baclofen 2020-0 2020- No 10mg Take 10 mg [facility] (LIORESAL) 6-23 10-19 by mouth Shanel ege 10 MG 00:00: 00:00 at of tablet 00 :00 bedtime. Medicin e gabapentin Yes 300mg Take 300 [facility] (NEURONTIN) 6- mg by [place] 300 MG 15:26: mouth of capsule 27 daily. Medicin e atorvastati Yes 20mg Take 20 mg [facility] [place] n (LIPITOR) 6-01 by mouth Shanel ege 20 MG 15:26: daily. of tablet 27 Medicin e escitalopra 0 Yes 5mg Take 5 mg [facility] m (LEXAPRO) 6- by mouth Shanel ege 5 MG tablet 15:26: daily. of 27 Medicin e levothyroxi 0 Yes 112ug Take 112 [facility] ne 6- mcg by [place] (SYNTHROID) 15:26: mouth of 112 MCG 27 daily. Medicin tablet e olanzapine 0 Yes 5mg Take 5 mg [facility] (ZYPREXA) 5 12-18 by mouth Shanel ege MG tablet 15:26: nightly. of 27 Medicin e trospium 2020-0 Yes [id number] 20mg Take 1 [facility] (SANCTURA) 6- Tablet by Shanel ege 20 MG 00:00: mouth 3 of tablet 00 times Medicin daily e (before meals). trospium 2020-0 Yes [id number] 20mg Take 1 [facility] (SANCTURA) 6- Tablet by Shanel ege 20 MG 00:00: mouth 3 of tablet 00 times Medicin daily e (before meals). trospium 2020-0 Yes [id number] 20mg Take 1 [facility] (SANCTURA) 6- Tablet by Shanel ege 20 MG 00:00: mouth 3 of tablet 00 times Medicin daily e (before meals). trospium 0 Yes [id number] 20mg Take 1 [facility] (SANCTURA) 6- Tablet by Shanel ege 20 MG 00:00: mouth 3 of tablet 00 times Medicin daily e (before meals). trospium 2020-0 Yes [id number] 20mg Take 1 [facility] (SANCTURA) 6- Tablet by Shanel ege 20 MG 00:00: mouth 3 of tablet 00 times Medicin daily e (before meals). trospium 2020-0 Yes [id number] 20mg Take 1 [facility] (SANCTURA) 6-01 Tablet by Shanel ege 20 MG 00:00: mouth 3 of tablet 00 times Medicin daily e (before meals). trospium 2020-0 Yes [id number] 20mg Take 1 [facility] (SANCTURA) 6-01 Tablet by Shanel ege 20 MG 00:00: mouth 3 of tablet 00 times Medicin daily e (before meals). gabapentin 2020-0 Yes 300mg Take 300 [facility] (NEURONTIN) 4-29 mg by [place] 300 MG 16:09: mouth of capsule 13 daily. Medicin e atorvastati Yes 20mg Take 20 mg [facility] n (LIPITOR) 4-29 by mouth [facility] ege 20 MG 16:09: daily. of tablet 13 Medicin e escitalopra 0 Yes 5mg Take 5 mg [facility] m (LEXAPRO) 4-29 by mouth Shanel ege 5 MG tablet 16:09: daily. of 13 Medicin e levothyroxi Yes 112ug Take 112 [facility] ne 4-29 mcg by [place] (SYNTHROID) 16:09: mouth of 112 MCG 13 daily. Medicin tablet e olanzapine Yes 5mg Take 5 mg [facility] (ZYPREXA) 5 - by mouth Shanel ege MG tablet 16:09: nightly. of 13 Medicin e trospium 2020-0 2020- No [id number] 20mg Take 1 [facility] (SANCTURA) 4-29 06- Tablet by [facility] lege 20 MG 00:00: 00:00 mouth 3 of tablet 00 :00 times Medicin daily e (before meals). BISACODYL 5 0 Yes 1{tbl} Take 1 [facility] MG EC 4-21 Tablet by [place] tablet 00:00: mouth of 00 daily. Medicin e BISACODYL 5 2020-0 202- No 1{tbl} Take 1 [facility] MG EC 4-21 10-19 Tablet by [place] tablet 00:00: 00:00 mouth of 00 :00 daily. Medicin e olanzapine 0 Yes 5mg Take 5 mg [facility] (ZYPREXA) 5 4-09 by mouth Shanel ege MG tablet 16:47: nightly. of 51 Medicin e gabapentin 0 Yes 300mg Take 300 [facility] (NEURONTIN) 4-09 mg by [place] 300 MG 16:46: mouth of capsule 06 daily. Medicin e atorvastati 0 Yes 20mg Take 20 mg [facility] [place] n (LIPITOR) 4-09 by mouth Shanel ege 20 MG 16:46: daily. of tablet 06 Medicin e escitalopra 0 Yes 5mg Take 5 mg [facility] m (LEXAPRO) 4-09 by mouth Shanel ege 5 MG tablet 16:46: daily. of 06 Medicin e levothyroxi Yes 112ug Take 112 [facility] ne 4-09 mcg by [place] (SYNTHROID) 16:46: mouth of 112 MCG 06 [...] 112 [facility] ne 3-18 mcg by [place] (SYNTHROID) 15:40: mouth of 112 MCG 34 daily. Medicin tablet e gabapentin 0 Yes 300mg Take 300 [facility] (NEURONTIN) 3-18 mg by [place] 300 MG 15:40: mouth of capsule 34 daily. Medicin e atorvastati 0 Yes 20mg Take 20 mg [facility] n (LIPITOR) 3-18 by mouth Shanel ege 20 MG 15:40: daily. of tablet 34 Medicin e escitalopra 0 Yes 5mg Take 5 mg [facility] m (LEXAPRO) 3-18 by mouth Shanel ege 5 MG tablet 15:40: daily. of 34 Medicin e levothyroxi Yes 112ug Take 112 [facility] ne 3-18 mcg by [place] (SYNTHROID) 15:40: mouth of 112 MCG 34 daily. Medicin tablet e gabapentin 2020-0 Yes 300mg Take 300 [facility] (NEURONTIN) 3-18 mg by [place] 300 MG 15:40: mouth of capsule 34 daily. Medicin e gabapentin 2020-0 Yes 300mg Take 300 [facility] (NEURONTIN) 2-19 mg by [place] 300 MG 21:01: mouth of capsule 41 daily. Medicin e atorvastati 2020-0 Yes 20mg Take 20 mg [facility] [place] n (LIPITOR) 2-19 by mouth Shanel ege 20 MG 21:01: daily. of tablet 41 Medicin e escitalopra 2020-0 Yes 5mg Take 5 mg [facility] (LEXAPRO) 2-19 by mouth Shanel ege 5 MG tablet 21:01: daily. of 41 Medicin e levothyroxi 0 Yes 112ug Take 112 [facility] ne 2-19 mcg by [place] (SYNTHROID) 21:01: mouth of 112 MCG 41 daily. Medicin tablet e FAMOTIDINE 2020- No 400mg Take 400 [facility] OR 2-19 02-19 mg by [place] 21:01: 00:00 mouth of 29 :00 daily. Medicin e trospium 2020-0 Yes [id number] 20mg Take 1 [facility] (SANCTURA) 2-19 Tablet by Shanel ege 20 MG 00:00: mouth 3 of tablet 00 times Medicin daily e (before meals). trospium 2020-0 Yes [id number] 20mg Take 1 [facility] (SANCTURA) 2-19 Tablet by Shanel ege 20 MG 00:00: mouth 3 of tablet 00 times Medicin daily e (before meals). trospium 2020-0 Yes [id number] 20mg Take 1 [facility] (SANCTURA) 2-19 Tablet by Shanel ege 20 MG 00:00: mouth 3 of tablet 00 times Medicin daily e (before meals). trospium 2020-0 Yes [id number] 20mg Take 1 [facility] (SANCTURA) 2-19 Tablet by Shanel ege 20 MG 00:00: mouth 3 of tablet 00 times Medicin daily e (before meals). 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 amoxicillin 2020- No [id number] 1{tbl} Take 1 Hermelindo -clavulanat 15 09-07 Tablet by Co [facility]lege e 00:00: 00:00 mouth two of (AUGMENTIN) 00 :00 times Medicin 875-125 MG daily. e per tablet gabapentin Yes 300mg Take 300 [facility] (NEURONTIN) 1-14 mg by [place] 300 MG 16:03: mouth of capsule 32 daily. Medicin e atorvastati Yes 20mg Take 20 mg [facility] n (LIPITOR) 14 by mouth Shanel ege 20 MG 16:03: daily. of tablet 32 Medicin e FAMOTIDINE Yes 400mg Take 400 [facility] OR 1-14 mg by [place] 16:03: mouth of 32 daily. Medicin e escitalopra Yes 5mg Take 5 mg [facility] m (LEXAPRO) 14 by mouth Shanel ege 5 MG tablet 16:03: daily. of 32 Medicin e levothyroxi Yes 112ug Take 112 [facility] ne 1-14 mcg by [place] (SYNTHROID) 16:03: mouth of 112 MCG 32 daily. Medicin tablet e Ascorbic 2020- No Take by Brittany r Acid 07-27 mouth [place] (VITAMIN C) 17:43: 00:00 daily. of 500 MG CAPS 32 :00 Medicin e escitalopra Yes 5mg Take 5 mg [facility] m (LEXAPRO) 08 by mouth Shanel ege 5 MG tablet 17:43: daily. of 31 Medicin e B Complex 2020- No Take by Lizette or Vitamins (B 07-27 mouth Colleg e COMPLEX 1 17:43: 00:00 daily. of OR) 26 :00 Medicin e baclofen 2020- No 10mg Take 10 mg [facility] (LIORESAL) 07-27 by mouth Shanel ege 10 MG 17:43: 00:00 two times of tablet 23 :00 daily. Medicin e BIOTIN 5000 2020- No Take by Zachariah lambert OR 07-27 mouth [place] 17:43: 00:00 daily. of 20 :00 Medicin e Calcium 2020- No Take by [facility] [place] Citrate-Vit 07-27 mouth two Co [facility]lege oliver D 17:43: 00:00 times of (CALCIUM 17 :00 daily. Medicin CITRATE + D e OR) L-THEANINE 2020- No 200mg Take 200 B [facility] OR 07-27 mg by [place] 17:43: 00:00 mouth of 11 :00 daily. Medicin e Lactobacill 2020- No Take by Zachariah lambert us 07-27 mouth [place] (PROBIOTIC 17:43: 00:00 daily. of ACIDOPHILUS 08 :00 Medicin OR) e levothyroxi 2020- No 125ug Take 125 [facility] [place] ne 07-27 mcg by [place] (SYNTHROID) 17:43: 00:00 mouth of 125 MCG 02 :00 daily. Medicin tablet e Lidocaine 2020- No Apply [facility] [place] 0.5 % GEL 07-27 topically. Col lege 17:42: 00:00 of 59 :00 Medicin e Magnesium 2020- No Take by [facility] or 400 MG TABS 07-27 mouth. Colle ge 17:42: 00:00 of 47 :00 Medicin e Multiple 2020- No Take by [facility] r Vitamins-Mi 07-27 mouth Colleg e nerals 17:42: 00:00 daily. of (MULTIVITAM 40 :00 Medicin IN ADULT e OR) [place]-3 2020- No Take by [facility] [place] Fatty Acids 07-27 mouth Colleg e (FISH OIL) 17:42: 00:00 daily. of 1200 MG 34 :00 Medicin CAPS e gabapentin Yes 300mg Take 300 [facility] (NEURONTIN) 07-27 mg by [facility] 300 MG 17:41: mouth of capsule 02 daily. Medicin e atorvastati 2020-0 Yes 20mg Take 20 mg [facility] n (LIPITOR) 1-08 by mouth Shanel ege 20 MG 17:41: daily. of tablet 02 Medicin e FAMOTIDINE 2020-0 Yes 400mg Take 400 [facility] OR 1-08 mg by [facility] 17:41: mouth of 02 daily. Medicin e lorazepam 2020-0 Yes 1mg Take 1 mg [facility] (ATIVAN) 1 1-07 by mouth Colle [facility] MG tablet 00:00: daily. of Medicin e lorazepam 0 Yes 1mg Take 1 mg [facility] (ATIVAN) 1 1-07 by mouth [facility] MG tablet 00:00: daily. of Medicin e lorazepam 0 Yes 1mg Take 1 mg [facility] (ATIVAN) 1 1-07 by mouth [facility]le [facility] MG tablet 00:00: daily. of Medicin e lorazepam 0 Yes 1mg Take 1 mg [facility] (ATIVAN) 1 1-07 by mouth [facility]le [facility] MG tablet 00:00: daily. of Medicin e lorazepam 0 Yes 1mg Take 1 mg [facility] (ATIVAN) 1 1-07 by mouth [facility] MG tablet 00:00: daily. of Medicin e lorazepam 0 Yes 1mg Take 1 mg [facility] (ATIVAN) 1 1-07 by mouth [facility]le [facility] MG tablet 00:00: daily. of Medicin e lorazepam 2020-0 Yes 1mg Take 1 mg [facility] (ATIVAN) 1 1-07 by mouth Colle [facility] MG tablet 00:00: daily. of Medicin e lorazepam 2020-0 Yes 1mg Take 1 mg [facility] (ATIVAN) 1 1-07 by mouth Colle [facility] MG tablet 00:00: daily. of Medicin e lorazepam 2020-0 Yes 1mg Take 1 mg [facility] (ATIVAN) 1 1-07 by mouth Colle [facility] MG tablet 00:00: daily. of Medicin e lorazepam 2020-0 Yes 1mg Take 1 mg [facility] (ATIVAN) 1 1-07 by mouth Colle ge MG tablet 00:00: daily. of Medicin e lorazepam 2020-0 Yes 1mg Take 1 mg [facility] (ATIVAN) 1 1-07 by mouth Colle [facility] MG tablet 00:00: daily. of Medicin e lorazepam Yes 1mg Take 1 mg [facility] (ATIVAN) 1 1-07 by mouth Colle [facility] MG tablet 00:00: daily. of Medicin e lorazepam Yes 1mg Take 1 mg [facility] (ATIVAN) 1 1-07 by mouth Colle ge MG tablet 00:00: daily. of Medicin e lorazepam Yes 1mg Take 1 mg [facility] (ATIVAN) 1 1-07 by mouth Colle ge MG tablet 00:00: daily. of Medicin e lorazepam Yes 1mg Take 1 mg [facility] (ATIVAN) 1 1-07 by mouth Colle ge MG tablet 00:00: daily. of Medicin e lorazepam Yes 1mg Take 1 mg [facility] (ATIVAN) 1 1-07 by mouth Colle [facility] MG tablet 00:00: daily. of Medicin e lorazepam Yes 1mg Take 1 mg [facility] (ATIVAN) 1 1-07 by mouth Colle ge MG tablet 00:00: daily. of Medicin e triamterene 2019-07 Yes 1{capsu Take 1 U nivers -hydrochlor 2-07 le} capsule by it y of othiazide 20:27: mouth. [place] 37.5-25 [facility] Medical [facility] capsule Branch b complex 2019-07 Yes 1{capsu Take 1 Uni vers vitamins 2-07 le} capsule by ity o f capsule 20:27: mouth. [address] MAGNESIUM 2019-07 Yes Take by [facility] rs GLYCINATE 2-07 mouth. ity of ORAL 20:27: [address] Branch TURMERIC 2019-07 Yes Take by [facility] s ORAL 2-07 mouth. ity of 20:27: [place] [address] Medical Branch ascorbic 2019-07 Yes 500mg Take 500 Univ ers acid, 2-07 mg by ity of vitamin C, 20:27: mouth. [place] 500 mg Medical [facility] Branch atorvastati 2019-07 Yes 20mg Take 20 mg Univers n 20 mg 2-07 by mouth. ity of tablet 20:27: [address] baclofen 10 2019-07 Yes 10mg Take 10 mg Univers mg tablet 2-07 by mouth. ity o f 20:27: [address] Biotin 2019-07 Yes Take by Univers 2,500 mcg 2-07 mouth. ity of Cap 20:27: [address] calcium 2019-07 Yes 1{tbl} Take 1 Univer s citrate-vit 2-07 tablet by ity of [place] D3 315 20:27: [place]. [place] mg-5 mcg 36 Medical (200 unit) Branch per tablet polycarboph 2019-07 Yes 625mg Take 625 U nivers il 625 mg 2-07 mg by ity of tablet 20:27: mouth. [address] gabapentin 2019-07 Yes 300mg Take 300 Un land[place] 300 mg 2-07 mg by ity of capsule 20:27: mouth. [address] Branch hydrOXYzine 2019-07 Yes 50mg Take 50 mg Univers 25 mg 2-07 by mouth. ity of tablet 20:27: [address] lactobacill 2019-07 Yes 1{capsu Take 1 U nivers us 2-07 le} capsule by ity of rhamnosus, 20:27: mouth. [place] GG, 10 Medical billion Branch cell capsule lamoTRIgine 2019-07 Yes 50mg Take 50 mg Univers 25 mg 2-07 by mouth. ity of tablet 20:27: [address] Branch levothyroxi 2019-07 Yes 125ug Take 125 U nivers ne 125 mcg 2-07 mcg by ity of tablet 20:27: mouth. [address] multivitami 2019-07 Yes 1{capsu Take 1 U nivers n capsule 2-07 le} capsule by ity of 20:27: mouth. [address] omega-3s-dh 2019-07 Yes Take by Uni vers a-epa-fish 2-07 mouth. ity of oil 120 20:27: [place] mg-180 mg- Medical 60 mg-1,200 Branch mg CpDR potassium 2019-07 Yes 10meq Take 10 Univ ers chloride 10 2-07 mEq by ity of mEq CR 20:27: mouth. [address] Branch triamterene 2019-07 Yes 1{capsu Take 1 U nivers -hydrochlor 2-07 le} capsule by it y of othiazide 20:27: mouth. [place] 37.5-25 mg Medical per capsule Branch b complex 2019-07 Yes 1{capsu Take 1 Uni vers vitamins 2-07 le} capsule by ity o f capsule 20:27: mouth. [address] Branch MAGNESIUM 2019-07 Yes Take by Unive rs GLYCINATE 2-07 mouth. ity of ORAL 20:27: [address] Branch TURMERIC 2019-07 Yes Take by Univer s ORAL 2-07 mouth. ity of 20:27: [address] Branch ascorbic 2019-07 Yes 500mg Take 500 Univ ers acid, 2-07 mg by ity of vitamin C, 20:27: mouth. [place] 500 mg Medical tablet Branch atorvastati 2019-07 Yes 20mg Take 20 mg Univers n 20 mg 2-07 by mouth. ity of tablet 20:27: [address] Branch baclofen 10 2019-07 Yes 10mg Take 10 mg Univers mg tablet 2-07 by mouth. ity o f 20:27: [address] Biotin 2019-07 Yes Take by Univers 2,500 mcg 2-07 mouth. ity of Cap 20:27: [address] Branch calcium 2019-07 Yes 1{tbl} Take 1 Univer s citrate-vit 2-07 tablet by ity of [place] D3 315 20:27: [place]. [place] mg-5 mcg Medical (200 unit) Branch per tablet polycarboph 2019-07 Yes 625mg Take 625 U nivers il 625 mg 2-07 mg by ity of tablet 20:27: mouth. [address] Branch gabapentin 2019-07 Yes 300mg Take 300 Un landen 300 mg 2-07 mg by ity of capsule 20:27: mouth. [address] Branch hydrOXYzine 2019-07 Yes 50mg Take 50 mg Univers 25 mg 2-07 by mouth. ity of tablet 20:27: [address] Branch lactobacill 2019-07 Yes 1{capsu Take 1 U nivers us 2-07 le} capsule by ity of rhamnosus, 20:27: mouth. [place] GG, 10 Medical billion Branch cell capsule lamoTRIgine 2019-07 Yes 50mg Take 50 mg Univers 25 mg 2-07 by mouth. ity of tablet 20:27: [address] Branch levothyroxi 2019-07 Yes 125ug Take 125 U nivers ne 125 mcg 2-07 mcg by ity of tablet 20:27: mouth. [address] Branch multivitami 2019-07 Yes 1{capsu Take 1 U nivers n capsule 2-07 le} capsule by ity of 20:27: mouth. [address] Branch omega-3s-dh 2019-07 Yes Take by Uni vers a-epa-fish 2-07 mouth. ity of oil 120 20:27: [place] mg-180 mg- 36 Medical 60 mg-1,200 Branch mg CpDR potassium 2019-07 Yes 10meq Take 10 Univ ers chloride 10 2-07 mEq by ity of mEq CR 20:27: mouth. [place] capsule Medical Branch triamterene 2019-07 Yes 1{capsu Take 1 U nivers -hydrochlor 2-07 le} capsule by it y of othiazide 20:27: mouth. [place] 37.5-25 mg 36 Medical per capsule Branch b complex 2019-07 Yes 1{capsu Take 1 Uni vers vitamins 2-07 le} capsule by ity o f capsule 20:27: mouth. [address] MAGNESIUM 2019-07 Yes Take by Unive rs GLYCINATE 2-07 mouth. ity of ORAL 20:27: [address] TURMERIC 2019-07 Yes Take by Univer s ORAL 2-07 mouth. ity of 20:27: [address] ascorbic 2019-07 Yes 500mg Take 500 Univ ers acid, 2-07 mg by ity of vitamin C, 20:27: mouth. [place] 500 mg Medical tablet Branch MAGNESIUM 2019-07 Yes Take by Unive rs GLYCINATE 2-07 mouth. ity of ORAL 20:27: [address] atorvastati 2019-07 Yes 20mg Take 20 mg Univers n 20 mg 2-07 by mouth. ity of tablet 20:27: [address] baclofen 10 2019-07 Yes 10mg Take 10 mg Univers mg tablet 2-07 by mouth. ity o f 20:27: [address] Biotin 2019-07 Yes Take by Univers 2,500 mcg 2-07 mouth. ity of Cap 20:27: [address] calcium 2019-07 Yes 1{tbl} Take 1 Univer s citrate-vit 2-07 tablet by ity of oliver D3 315 20:27: [facility]. [facility] Medical (200 unit) Branch per tablet polycarboph 2019-07 Yes 625mg Take 625 U nivers il 625 mg 2-07 mg by ity of tablet 20:27: mouth. [address] Branch gabapentin 2019-07 Yes 300mg Take 300 Un landen 300 mg 2-07 mg by ity of capsule 20:27: mouth. [place] [address] Medical Branch TURMERIC 2019-07 Yes Take by Univer s ORAL 2-07 mouth. ity of 20:27: [place] [address] Medical Branch hydrOXYzine 2019-07 Yes 50mg Take 50 mg Univers 25 mg 2-07 by mouth. ity of tablet 20:27: [address] Branch lactobacill 2019-07 Yes 1{capsu Take 1 U nivers us 2-07 le} capsule by ity of rhamnosus, 20:27: mouth. [place] GG, 10 Medical billion Branch cell capsule lamoTRIgine 2019-07 Yes 50mg Take 50 mg Univers 25 mg 2-07 by mouth. ity of tablet 20:27: [address] Branch levothyroxi 2019-07 Yes 125ug Take 125 U nivers ne 125 mcg 2-07 mcg by ity of tablet 20:27: mouth. [address] Branch ascorbic 2019-07 Yes 500mg Take 500 Univ ers acid, 2-07 mg by ity of vitamin C, 20:27: mouth. [place] 500 mg Medical tablet Branch multivitami 2019-07 Yes 1{capsu Take 1 U nivers n capsule 2-07 le} capsule by ity of 20:27: mouth. [address] Branch omega-3s-dh 2019-07 Yes Take by Uni vers a-epa-fish 2-07 mouth. ity of oil 120 20:27: [place] mg-180 mg- Medical 60 mg-1,200 Branch mg CpDR potassium 2019-07 Yes 10meq Take 10 Univ ers chloride 10 2-07 mEq by ity of mEq CR 20:27: mouth. [place] [address] Medical Branch atorvastati 2019-07 Yes 20mg Take 20 mg Univers n 20 mg 2-07 by mouth. ity of tablet 20:27: [place] [address] Medical Branch triamterene 2019-07 Yes 1{capsu Take 1 U nivers -hydrochlor 2-07 le} capsule by it y of othiazide 20:27: mouth. [place] 37.5-25 mg Medical per capsule Branch b complex 2019-07 Yes 1{capsu Take 1 Uni vers vitamins 2-07 le} capsule by ity o f capsule 20:27: mouth. [address] Branch MAGNESIUM 2019-07 Yes Take by Unive rs GLYCINATE 2-07 mouth. ity of ORAL 20:27: [address] Branch TURMERIC 2019-07 Yes Take by Univer s ORAL 2-07 mouth. ity of 20:27: [address] Branch ascorbic 2019-07 Yes 500mg Take 500 Univ ers acid, 2-07 mg by ity of vitamin C, 20:27: mouth. [place] 500 mg Medical tablet Branch atorvastati 2019-07 Yes 20mg Take 20 mg Univers n 20 mg 2-07 by mouth. ity of tablet 20:27: [address] Branch baclofen 10 2019-07 Yes 10mg Take 10 mg Univers mg tablet 2-07 by mouth. ity o f 20:27: [address] Branch Biotin 2019-07 Yes Take by Univers 2,500 mcg 2-07 mouth. ity of Cap 20:27: [address] Branch calcium 2019-07 Yes 1{tbl} Take 1 Univer s citrate-vit 2-07 tablet by ity of [place] D3 315 20:27: mouth. [place] mg-5 mcg Medical (200 unit) Branch per tablet polycarboph 2019-07 Yes 625mg Take 625 U nivers il 625 mg 2-07 mg by ity of tablet 20:27: mouth. [address] Branch gabapentin 2019-07 Yes 300mg Take 300 Un landen 300 mg 2-07 mg by ity of capsule 20:27: mouth. [address] Branch baclofen 10 2019-07 Yes 10mg Take 10 mg Univers mg tablet 2-07 by mouth. ity o f 20:27: [address] Branch hydrOXYzine 2019-07 Yes 50mg Take 50 mg Univers 25 mg 2-07 by mouth. ity of tablet 20:27: [address] Branch lactobacill 2019-07 Yes 1{capsu Take 1 U nivers us 2-07 le} capsule by ity of rhamnosus, 20:27: mouth. [place] [address] Medical billion Branch cell capsule lamoTRIgine 2019-07 Yes 50mg Take 50 mg Univers 25 mg 2-07 by mouth. ity of tablet 20:27: [address] Branch levothyroxi 2019-07 Yes 125ug Take 125 U nivers ne 125 mcg 2-07 mcg by ity of tablet 20:27: mouth. [address] multivitami 2019-07 Yes 1{capsu Take 1 U nivers n capsule 2-07 le} capsule by ity of 20:27: mouth. [address] Branch omega-3s-dh 2019-07 Yes Take by Uni vers a-epa-fish 2-07 mouth. ity of oil 120 20:27: [place] mg-180 mg- 36 Medical 60 mg-1,200 Branch mg CpDR potassium 2019-07 Yes 10meq Take 10 Univ ers chloride 10 2-07 mEq by ity of mEq CR 20:27: mouth. [place] [address] Medical Branch Biotin 2019-07 Yes Take by Univers 2,500 mcg 2-07 mouth. ity of Cap 20:27: [address] Branch triamterene 2019-07 Yes 1{capsu Take 1 U nivers -hydrochlor 2-07 le} capsule by it y of othiazide 20:27: mouth. [place] 37.5-25 mg Medical per capsule Branch b complex 2019-07 Yes 1{capsu Take 1 Uni vers vitamins 2-07 le} capsule by ity o f capsule 20:27: mouth. [address] calcium 2019-07 Yes 1{tbl} Take 1 Univer s citrate-vit 2-07 tablet by ity of [place] D3 315 20:27: mouth. [place] mg-5 mcg Medical (200 unit) Branch per tablet polycarboph 2019-07 Yes 625mg Take 625 U nivers il 625 mg 2-07 mg by ity of tablet 20:27: mouth. [address] Branch gabapentin 2019-07 Yes 300mg Take 300 Un landen 300 mg 2-07 mg by ity of capsule 20:27: mouth. [address] Branch hydrOXYzine 2019-07 Yes 50mg Take 50 mg Univers 25 mg 2-07 by mouth. ity of tablet 20:27: [address] Branch lactobacill 2019-07 Yes 1{capsu Take 1 U nivers us 2-07 le} capsule by ity of rhamnosus, 20:27: mouth. [place] GG, 10 Medical billion Branch cell capsule lamoTRIgine 2019-07 Yes 50mg Take 50 mg Univers 25 mg 2-07 by mouth. ity of tablet 20:27: [address] Branch levothyroxi 2019-07 Yes 125ug Take 125 U nivers ne 125 mcg 2-07 mcg by ity of tablet 20:27: mouth. [address] Branch multivitami 2019-07 Yes 1{capsu Take 1 U nivers n capsule 2-07 le} capsule by ity of 20:27: mouth. [place] [address] Medical Branch omega-3s-dh 2019-07 Yes Take by Uni vers a-epa-fish 2-07 mouth. ity of oil 120 20:27: [place] mg-180 mg- Medical 60 mg-1,200 Branch mg CpDR potassium 2019-07 Yes 10meq Take 10 Univ ers chloride 10 2-07 mEq by ity of mEq CR 20:27: mouth. [place] capsule Medical Branch triamterene 2019-07 Yes 1{capsu Take 1 U nivers -hydrochlor 2-07 le} capsule by it y of othiazide 20:27: mouth. [place] 37.5-25 mg Medical per capsule Branch b complex 2019-07 Yes 1{capsu Take 1 Uni vers vitamins 2-07 le} capsule by ity o f capsule 20:27: mouth. [address] MAGNESIUM 2019-07 Yes Take by Unive rs GLYCINATE 2-07 mouth. ity of ORAL 20:27: [address] Branch TURMERIC 2019-07 Yes Take by Univer s ORAL 2-07 mouth. ity of 20:27: [place] [address] Medical Branch ascorbic 2019-07 Yes 500mg Take 500 Univ ers acid, 2-07 mg by ity of vitamin C, 20:27: mouth. [place] [address] [place] [address] tablet Branch atorvastati 2019-07 Yes 20mg Take 20 mg Univers n 20 mg 2-07 by mouth. ity of tablet 20:27: [address] baclofen 10 2019-07 Yes 10mg Take 10 mg Univers mg tablet 2-07 by mouth. ity o f 20:27: [address] Branch Biotin 2019-07 Yes Take by Univers 2,500 mcg 2-07 mouth. ity of Cap 20:27: [address] Branch calcium 2019-07 Yes 1{tbl} Take 1 Univer s citrate-vit 2-07 tablet by ity of [place] D3 315 20:27: mouth. [place] mg-5 mcg Medical (200 unit) Branch per tablet polycarboph 2019-07 Yes 625mg Take 625 U nivers il 625 mg 2-07 mg by ity of tablet 20:27: mouth. [place] [address] Medical Branch gabapentin 2019-07 Yes 300mg Take 300 Un landen 300 mg 2-07 mg by ity of capsule 20:27: mouth. [address] hydrOXYzine 2019- Yes 50mg Take 50 mg Univers 25 mg 2-07 by mouth. ity of tablet 20:27: [address] lactobacill 2019- Yes 1{capsu Take 1 U nivers us 2-07 le} capsule by ity of rhamnosus, 20:27: mouth. [place] GG, 10 Medical billion Branch cell capsule lamoTRIgine 2019- Yes 50mg Take 50 mg Univers 25 mg 2-07 by mouth. ity of tablet 20:27: [address] levothyroxi 2019- Yes 125ug Take 125 U nivers ne 125 mcg 2-07 mcg by ity of tablet 20:27: mouth. [address] multivitami 2019- Yes 1{capsu Take 1 U nivers n capsule 2-07 le} capsule by ity of 20:27: mouth. [address] omega-3s-dh 2019-07 Yes Take by Uni vers a-epa-fish 2-07 mouth. ity of oil 120 20:27: [place] mg-180 mg- Medical 60 mg-1,200 [place] mg CpDR potassium 2019- Yes 10meq Take 10 Univ ers chloride 10 2-07 mEq by ity of mEq CR 20:27: mouth. [address] Turmeric 2019-07 Yes Take by [facility] 500 MG CAPS 2-07 mouth. Colleg e 00:00: of 00 Medicin e Turmeric 2020- Yes Take by [facility] 500 MG CAPS 2-07 mouth. Colleg e 00:00: of 00 Medicin e Turmeric 2020- Yes Take by [facility] 500 MG CAPS 2-07 mouth. Colleg e 00:00: of 00 Medicin e Turmeric 2020- Yes Take by [facility] 500 MG CAPS 2-07 mouth. Colleg e 00:00: of 00 Medicin e Turmeric 2020- Yes Take by [facility] 500 MG CAPS 2-07 mouth. Colleg e 00:00: of 00 Medicin e Turmeric 2020- Yes Take by [facility] 500 MG CAPS 2-07 mouth. Colleg e 00:00: of 00 Medicin e gabapentin 2020- Yes TK 1 C PO Un landen 100 mg 2-04 IN THE ity of capsule 00:00: MORNING [place] 00 AND AT [facility] gabapentin 2020- Yes TK 1 C PO Un landen 100 mg 2-04 IN THE ity of capsule 00:00: MORNING 00 AND AT [facility] gabapentin 2019-07 Yes TK 1 C PO Un landen 100 mg 2-04 IN THE ity of capsule 00:00: MORNING 00 AND AT [facility] gabapentin 2019-07 Yes TK 1 C PO Un landen 100 mg 2-04 IN THE ity of capsule 00:00: MORNING 00 AND AT [facility] gabapentin 2019-07 Yes TK 1 C PO Un landen 100 mg 2-04 IN THE ity of capsule 00:00: MORNING 00 AND AT [facility] gabapentin 2019-07 Yes TK 1 C PO Un landen 100 mg 2-04 IN THE ity of capsule 00:00: MORNING 00 AND AT [facility] gabapentin 2019-07 Yes = 1 cap, Mem oria 300 MG Oral 2-03 PO, l Capsule 20:46: Bedtime, # Herm beto 00 30 cap, 6 Refill(s), Pharmacy: [facility] #[id number], 157.48, cm, 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, 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, 62.727, kg, 06/21/20 14:10: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, Weight baclofen 10 2019-07 Yes = 1 tab, Me moria mg oral 2-03 PO, l tablet 20:46: Bedtime, # Bing nn 00 30 tab, 4 Refill(s), Pharmacy: [facility] #[id number], 157.48, cm, 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, 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, 62.727, kg, 06/21/20 14:10: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, Weight gabapentin 2019-07 Yes = 1 cap, Mem oria 300 MG Oral 2-03 PO, l Capsule 20:46: Bedtime, # Herm beto 00 30 cap, 6 Refill(s), Pharmacy: [facility] #[id number], 157.48, cm, 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, 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, 62.727, kg, 06/21/20 14:10: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, 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 baclofen 10 2019-07 Yes = 1 tab, Me moria mg oral 2-03 PO, l tablet 20:46: Bedtime, # Bing nn 00 30 tab, 4 Refill(s), Pharmacy: [facility] #[id number], 157.48, cm, 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, 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, 62.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, kg, 06/21/20 14:10: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, 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 spironolact 2019- Yes TK 1 T PO U nivers one 25 mg 2-03 BID ity of tablet 00:00: [place] [facility] spironolact 2019- Yes TK 1 T PO U nivers one 25 mg 2-03 BID ity of tablet 00:00: [place] [facility] spironolact 2019-07 Yes TK 1 T PO U nivers one 25 mg 2-03 BID ity of tablet 00:00: [place] [facility] spironolact 2019-07 Yes TK 1 T PO U nivers one 25 mg 2-03 BID ity of tablet 00:00: [place] [facility] spironolact 2019- Yes TK 1 T PO U nivers one 25 mg 2-03 BID ity of tablet 00:00: [place] [facility] spironolact 2019- Yes TK 1 T PO U nivers one 25 mg 2-03 BID ity of tablet 00:00: [place] [facility] baclofen 10 2019- Yes TK 1 T PO U nivers mg tablet 1-24 BID ity of 00:00: [place] [facility] baclofen 10 2019- Yes TK 1 T PO U nivers mg tablet 1-24 BID ity of 00:00: [place] [facility] baclofen 10 2019- Yes TK 1 T PO U nivers mg tablet 1-24 BID ity of 00:00: [place] [facility] baclofen 10 2019- Yes TK 1 T PO U nivers mg tablet 1-24 BID ity of 00:00: [place] [facility] baclofen 10 2019- Yes TK 1 T PO U nivers mg tablet 1-24 BID ity of 00:00: [place] [facility] baclofen 10 2019- Yes TK 1 T PO U nivers mg tablet 1-24 BID ity of 00:00: [place] [facility] famotidine 2019- Yes TK 1 T PO Un landen 40 mg 1-23 D HS ity of tablet 00:00: [place] [facility] famotidine 2019- Yes TK 1 T PO Un landen 40 mg 1-23 D HS ity of tablet 00:00: [facility] famotidine 2019- Yes TK 1 T PO Un landen 40 mg 1-23 D HS ity of tablet 00:00: [facility] famotidine 2019- Yes TK 1 T PO Un landen 40 mg 1-23 D HS ity of tablet 00:00: [facility] famotidine 2019-07 Yes TK 1 T PO Un landen 40 mg 1-23 D HS ity of tablet 00:00: [facility] famotidine 2019- Yes TK 1 T PO Un landen 40 mg 1-23 D HS ity of tablet 00:00: [facility] levothyroxi 2019-07 Yes 125ug Take 125 B aylor ne 1-19 mcg by [place] (SYNTHROID) 14:29: mouth of 125 MCG 07 daily. Medicin tablet e gabapentin 2019-07 Yes 500mg Take 500 Ba ylor (NEURONTIN) - mg by [place] 300 MG 14:29: mouth of capsule 07 daily. Medicin e atorvastati 2019-07 Yes 20mg Take 20 mg [facility] [place] n (LIPITOR) 08-07 by mouth [facility] 20 MG 14:29: daily. of tablet 07 Medicin e baclofen 2019-07 Yes 10mg Take 10 mg [facility] (LIORESAL) 08-07 by mouth Colle ge 10 MG 14:29: two times of tablet 07 daily. Medicin e Multiple 2019-07 Yes Take by [facility] [place] Vitamins-Mi 08-07 [facility] [place]erals 14:29: daily. of (MULTIVITAM 07 Medicin IN ADULT e OR) B Complex 2019-07 Yes Take by [facility] r Vitamins (B 08-07 mouth [place] COMPLEX 1 14:29: daily. of OR) 07 Medicin e Calcium 2019-07 Yes Take by [facility] [place] Citrate-Vit 08-07 mouth two Col lege oliver D 14:29: times of (CALCIUM 07 daily. Medicin CITRATE + D e OR) [place]-3 2019-07 Yes Take by [facility] [place] Fatty Acids 08-07 [facility] [place]FISH OIL) 14:29: daily. of 1200 MG 07 Medicin CAPS e Lactobacill 2019-07 Yes Take by [facility] us 08-07 mouth [place] (PROBIOTIC 14:29: daily. of ACIDOPHILUS 07 Medicin OR) e BIOTIN 5000 2019-07 Yes Take by [facility] OR 08-07 mouth [place] 14:29: daily. of 07 Medicin e L-THEANINE 2019-07 Yes 200mg Take 200 Ba ylor OR 1-19 mg by College 14:29: mouth of 07 daily. Medicin e Ascorbic 2019-07 Yes Take by [facility] [place] Acid 08-07 mouth [place] (VITAMIN C) 14:29: daily. of 500 MG CAPS 07 Medicin e Magnesium 2019-07 Yes Take by [facility] 400 MG TABS 08-07 mouth. Colleg e 14:29: of 07 Medicin e Lidocaine 2019-07 Yes Apply [facility] 0.5 % GEL 08-07 topically. [facility] 14:29: of 07 Medicin e levothyroxi 2019-07 Yes 125ug Take 125 B aylor ne 1-19 mcg by [place] (SYNTHROID) 14:29: mouth of 125 MCG 07 daily. Medicin tablet e gabapentin 2019-07 Yes 500mg Take 500 Ba [facility] (NEURONTIN) 1-19 mg by [place] 300 MG 14:29: mouth of capsule 07 daily. Medicin e atorvastati 2019-07 Yes 20mg Take 20 mg [facility] [place] n (LIPITOR) 08-07 by mouth Shan[facility] e[facility] 20 MG 14:29: daily. of tablet Medicin e baclofen 2019-07 Yes 10mg Take 10 mg [place] [facility] (LIORESAL) 08-07 by mouth [facility] ge 10 MG 14:29: two times of tablet 07 daily. Medicin e Multiple 2019-07 Yes Take by [facility] [place] Vitamins-Mi 08-07 mouth [place] nerals 14:29: daily. of (MULTIVITAM 07 Medicin IN ADULT e OR) B Complex 2019-07 Yes Take by [facility] (B 08-07 mouth College COMPLEX 1 14:29: daily. of OR) 07 Medicin e Calcium 2019-07 Yes Take by [facility] [place] Citrate-Vit 08-07 mouth two Col lege oliver D 14:29: times of (CALCIUM 07 daily. Medicin CITRATE + D e OR) [place]-3 2019-07 Yes Take by [facility] [place] Fatty Acids 08-07 mouth [place] (FISH OIL) 14:29: daily. of 1200 MG 07 Medicin CAPS e Lactobacill 2019-07 Yes Take by [facility] us 08-07 mouth [place] (PROBIOTIC 14:29: daily. of ACIDOPHILUS 07 Medicin OR) e BIOTIN 5000 2019-07 Yes Take by [facility] OR -19 mouth [place] 14:29: daily. of 07 Medicin e L-THEANINE 2019-07 Yes 200mg Take 200 Ba ylor OR 1-19 mg by [place] 14:29: mouth of 07 daily. Medicin e Ascorbic 2019-07 Yes Take by [facility] [place] Acid -19 mouth [place] (VITAMIN C) 14:29: daily. of 500 MG CAPS 07 Medicin e Magnesium 2019-07 Yes Take by [facility] 400 MG TABS 19 mouth. Colleg e 14:29: of 07 Medicin e Lidocaine 2019-07 Yes Apply [facility] [place] 0.5 % GEL 08-07 topically. Shan[facility] 14:29: of Medicin e Turmeric 2019-07 2020- No Take by [facility] Curcumin -19 -19 mouth. [place] 500 MG CAPS 14:29: 00:00 of 06 :00 Medicin e Calcium 2019-07 2020- No Take by [facility] Polycarboph -19 11-19 mouth 3 Shanel ege il 14:26: 00:00 times of (FIBER-CAPS 48 :00 daily. Medici n OR) e Calcium 2019-07 2020- No 625mg Take 625 [facility] Polycarboph -19 11-19 mg by [place] (FIBER) 14:26: 00:00 mouth. of 625 MG TABS 38 :00 Medicin e ascorbic 2019-07 2020- No 500mg Take 500 [facility] acid 500 MG -19 11-19 mg by Colleg e tablet 14:25: 00:00 mouth. of 41 :00 Medicin e lidocaine-p 2019-07 Yes Univer s rilocaine 1-14 ity of 2.5-2.5 % 00:00: [place] [facility] lidocaine-p 2019-07 Yes Univer s rilocaine 1-14 ity of 2.5-2.5 % 00:00: [place] [facility] lidocaine-p 2019-07 Yes Univer s rilocaine 1-14 ity of 2.5-2.5 % 00:00: [place] [facility] lidocaine-p 2019-07 Yes Univer s rilocaine 1-14 ity of 2.5-2.5 % 00:00: [place] [facility] lidocaine-p 2019-07 Yes Univer s rilocaine 1-14 ity of 2.5-2.5 % 00:00: [place] [facility] lidocaine-p 2019-07 Yes Univer s rilocaine 1-14 ity of 2.5-2.5 % 00:00: [place] [facility] lidocaine-p 2019- 2020- No [facility] rilocaine 1-14 06-07 [place] ([facility]) 00:00: 00:00 of 2.5-2.5 % 00 :00 Medicin cream e risperiDONE 2019-07 Yes TK 1 T PO U nivers 0.25 mg 1-11 BID ity of tablet 00:00: [place] [facility] LORazepam 2019-07 Yes TK 1 T PO Uni vers 0.5 mg 1-11 TID PRN ity of tablet 00:00: FOR [place] ANXIETY [facility] risperiDONE 2019-07 Yes TK 1 T PO U nivers 0.25 mg 1-11 BID ity of tablet 00:00: [place] [facility] LORazepam 2019-07 Yes TK 1 T PO Uni vers 0.5 mg 1-11 TID PRN ity of tablet 00:00: FOR [place] ANXIETY [facility] risperiDONE 2019- Yes TK 1 T PO U nivers 0.25 mg 1-11 BID ity of tablet 00:00: [place] [facility] LORazepam 2019-07 Yes TK 1 T PO Uni vers 0.5 mg 1-11 TID PRN ity of tablet 00:00: FOR [place] ANXIETY [facility] risperiDONE 2019- Yes TK 1 T PO U nivers 0.25 mg 1-11 BID ity of tablet 00:00: [place] [facility] LORazepam 2019-07 Yes TK 1 T PO Uni vers 0.5 mg 1-11 TID PRN ity of tablet 00:00: FOR [place] ANXIETY [facility] risperiDONE 2019- Yes TK 1 T PO U nivers 0.25 mg 1-11 BID ity of tablet 00:00: [place] [facility] LORazepam 2019- Yes TK 1 T PO Uni vers 0.5 mg 1-11 TID PRN ity of tablet 00:00: FOR [place] ANXIETY [facility] risperiDONE 2019- Yes TK 1 T PO U nivers 0.25 mg 1-11 BID ity of tablet 00:00: [place] [facility] LORazepam 2019- Yes TK 1 T PO Uni vers 0.5 mg 1-11 TID PRN ity of tablet 00:00: FOR ANXIETY [facility] atorvastati 2019-07 Yes TK 1 T PO U nivers n 20 mg 1-03 D HS ity of tablet 00:00: [facility] atorvastati 2019-07 Yes TK 1 T PO U nivers n 20 mg 1-03 D HS ity of tablet 00:00: [facility] atorvastati 2019-07 Yes TK 1 T PO U nivers n 20 mg 1-03 D HS ity of tablet 00:00: [facility] atorvastati 2019-07 Yes TK 1 T PO U nivers n 20 mg 1-03 D HS ity of tablet 00:00: [place] [facility] atorvastati 2019-07 Yes TK 1 T PO U nivers n 20 mg 1-03 D HS ity of tablet 00:00: [place] [facility] atorvastati 2019-07 Yes TK 1 T PO U nivers n 20 mg 1-03 D HS ity of tablet 00:00: [place] [facility] ondansetron 2019-07 Yes [id number] 4mg Take 1 Tab [facility] [place] (ZOFRAN) 4 1-02 by mouth Colle ge MG tablet 00:00: every 8 of 00 hours as Medicin needed for e Nausea. nitrofurant 2019-07 Yes TK ONE C Ba ylor oin 1-02 PO BID College (MACRODANTI 00:00: of N) 100 MG 00 Medicin capsule e ondansetron 2019-07 Yes [id number] 4mg Take 1 Tab [facility] (ZOFRAN) 4 1-02 by mouth Colle ge MG tablet 00:00: every 8 of 00 hours as Medicin needed for e Nausea. ondansetron 2019-07 Yes [id number] 4mg Take 1 Tab [facility] (ZOFRAN) 4 1-02 by mouth Colle ge MG tablet 00:00: every 8 of 00 hours as Medicin needed for e Nausea. ondansetron 2019-07 Yes [id number] 4mg Take 1 Tab [facility] (ZOFRAN) 4 1-02 by mouth Colle ge MG tablet 00:00: every 8 of 00 hours as Medicin needed for e Nausea. nitrofurant 2019-07 Yes TK ONE C Un landen oin 100 mg 1-02 PO BID ity of capsule 00:00: [place] [facility] ondansetron 2019-07 Yes TK 1 T PO U nivers 4 mg tablet 1-02 Q 8 H PRF ity of 00:00: NAUSEA [facility] nitrofurant 2019-07 Yes TK ONE C Un landen oin 100 mg 1-02 PO BID ity of capsule 00:00: [place] [facility] ondansetron 2019-07 Yes TK 1 T PO U nivers 4 mg tablet 1-02 Q 8 H PRF ity of 00:00: NAUSEA [facility] nitrofurant 2019-07 Yes TK ONE C Un landen oin 100 mg 1-02 PO BID ity of capsule 00:00: [place] [facility] ondansetron 2019-07 Yes TK 1 T PO U nivers 4 mg tablet 1-02 Q 8 H PRF ity of 00:00: NAUSEA [facility] nitrofurant 2019-07 Yes TK ONE C Un landen oin 100 mg 1-02 PO BID ity of capsule 00:00: [place] [facility] ondansetron 2019-07 Yes TK 1 T PO U nivers 4 mg tablet 1-02 Q 8 H PRF ity of 00:00: NAUSEA [facility] nitrofurant 2019-07 Yes TK ONE C Un landen oin 100 mg 1-02 PO BID ity of capsule 00:00: [place] [facility] ondansetron 2019-07 Yes TK 1 T PO U nivers 4 mg tablet 1-02 Q 8 H PRF ity of 00:00: NAUSEA [facility] nitrofurant 2019-07 Yes TK ONE C Un landen oin 100 mg 1-02 PO BID ity of capsule 00:00: [place] [facility] ondansetron 2019-07 Yes TK 1 T PO U nivers 4 mg tablet 1-02 Q 8 H PRF ity of 00:00: NAUSEA [facility] ondansetron 2019-07- No [id number] 4mg Take 1 Tab [facility] (ZOFRAN) 4 - 03-18 by mouth [facility] MG tablet 00:00: 00:00 every 8 of 00 :00 hours as Medicin needed for e Nausea. nitrofurant 2019-07- No TK ONE C B aylor oin -02 -08 PO BID College (MACRODANTI 00:00: 00:00 of N) 100 MG 00 :00 Medicin capsule e KLOR-CON 20 2019-07 Yes TK 1 Univer s mEq packet 0-30 PACKET PO ity of 00:00: QD FOR 7 [place] 00 DAYS. [facility] KLOR-CON 20 2019-07 Yes TK 1 Univer s mEq packet 0-30 PACKET PO ity of 00:00: QD FOR 7 [place] 00 DAYS. [facility] KLOR-CON 20 2019-07 Yes TK 1 Univer s mEq packet 0-30 PACKET PO ity of 00:00: QD FOR 7 [place] 00 DAYS. [facility] KLOR-CON 20 2019-07 Yes TK 1 Univer s mEq packet 0-30 PACKET PO ity of 00:00: QD FOR 7 [place] 00 DAYS. [facility] KLOR-CON 20 2019-07 Yes TK 1 Univer s mEq packet 0-30 PACKET PO ity of 00:00: QD FOR 7 [place] 00 DAYS. [facility] KLOR-CON 20 2019-07 Yes TK 1 Univer s mEq packet 0-30 PACKET PO ity of 00:00: QD FOR [address] [place] [address] [facility] triamterene 2019-07 2020- No 1{capsu Take 1 Cap [facility] -hydrochlor 0-27 10-27 le} by mouth Col lege othiazide 19:49: 00:00 every of (DYAZIDE) 07 :00 morning. Medici n 37.5-25 MG e per capsule potassium 2019-07 2020- No 10meq Take 10 [facility] chloride 0-27 10-27 mEq by College (MICRO-K) 19:49: 00:00 mouth of 10 MEQ 07 :00 daily. Medicin capsule e lamoTRIgine 2019-07- No 50mg Take 50 mg [facility] [place] 50 MG TBDP 0-27 10-27 by mouth [facility]ge 19:49: 00:00 two times of 07 :00 daily. Medicin e ciprofloxac 2019-07 Yes TK 1 T PO U nivers in HCl 250 0-25 BID ity of mg tablet 00:00: 00 [facility] ciprofloxac 2019-07 Yes TK 1 T PO U nivers in HCl 250 0-25 BID ity of mg tablet 00:00: [facility] ciprofloxac 2019-07 Yes TK 1 T PO U nivers in HCl 250 0-25 BID ity of mg tablet 00:00: [facility] ciprofloxac 2019-07 Yes TK 1 T PO U nivers in HCl 250 0-25 BID ity of mg tablet 00:00: [place] [facility] ciprofloxac 2019-07 Yes TK 1 T PO U nivers in HCl 250 0-25 BID ity of mg tablet 00:00: [place] [facility] ciprofloxac 2019-07 Yes TK 1 T PO U nivers in HCl 250 0-25 BID ity of mg tablet 00:00: [place] [facility] losartan 25 2019-07 Yes 25 mg = 1 M emoria mg oral 0-22 tab, PO, l tablet 19:15: Daily, 0 [place] 00 Refill(s) Risperidone 2019-07 Yes 0.25 mg = M emoria 0.25 MG 0-22 1 tab, PO, l Oral Tablet 19:15: BID, # 60 H [place] 00 tab, 0 Refill(s) spironolact 2019-07 Yes 25 mg = 1 M emoria one 25 mg 0-22 tab, PO, l oral tablet 19:15: Daily, # [place] 00 90 tab, 1 Refill(s) losartan 25 2019-07 Yes 25 mg = 1 M [facility] mg oral 0-22 tab, PO, l tablet 19:15: Daily, 0 [place] 00 Refill(s) Risperidone 2019-07 Yes 0.25 mg = M emoria 0.25 MG 0-22 1 tab, PO, l Oral Tablet 19:15: BID, # 60 H ermann 00 tab, 0 Refill(s) spironolact 2019-07 Yes 25 mg = 1 M [facility]oria one 25 mg 0-22 tab, PO, l oral tablet 19:15: Daily, # He rmann 00 90 tab, 1 Refill(s) spironolact 2019-07 Yes 1{tbl} Take 1 Ba ylor one 0-21 Tablet by [place] (ALDACTONE) 00:00: mouth. 2 of 25 MG 00 in the Medicin tablet morning e and 1 at night spironolact 2019- Yes 1{tbl} Take 1 Ba ylor one 0-21 Tablet by [place] (ALDACTONE) 00:00: mouth. 2 of 25 MG 00 in the Medicin tablet morning e and 1 at night spironolact 2019- Yes 1{tbl} Take 1 Ba ylor one [...] spironolact 2020-1 Yes 1{tbl} Take 1 Tab [facility] one 0-21 by mouth College (ALDACTONE) 00:00: daily. of 25 MG 00 Medicin tablet e spironolact 2020- Yes 1{tbl} Take 1 Ba [...] 1 Ba ylor one 0-21 Tablet by [place] (ALDACTONE) 00:00: mouth. 2 of 25 MG 00 in the Medicin tablet morning e and 1 at night LORazepam 1 2019- Yes Univer s mg tablet 0-14 ity of 00:00: [place] [facility] LORazepam 1 2019- Yes Univer s mg tablet 0-14 ity of 00:00: [place] [facility] LORazepam 1 2019- Yes Univer s mg tablet 0-14 ity of 00:00: [place] [facility] LORazepam 1 2019- Yes Univer s mg tablet 0-14 ity of 00:00: [facility] Branch LORazepam 1 2019- Yes Univer s mg tablet 0-14 ity of 00:00: [place] [facility] LORazepam 1 2019- Yes Univer s mg tablet 0-14 ity of 00:00: [facility] Branch lorazepam 2020-1 2020- No [facility] (ATIVAN) 1 0-14 11-19 College MG tablet 00:00: 00:00 of 00 :00 Medicin e levothyroxi 2019-07 Yes TK 1 T PO U nivers ne 112 mcg 0-11 D ity of tablet 00:00: [place] [facility] levothyroxi 2019-07 Yes TK 1 T PO U nivers ne 112 mcg 0-11 D ity of tablet 00:00: [place] [facility] levothyroxi 2019-07 Yes TK 1 T PO U nivers ne 112 mcg 0-11 D ity of tablet 00:00: [place] [facility] levothyroxi 2019-07 Yes TK 1 T PO U nivers ne 112 mcg 0-11 D ity of tablet 00:00: [place] [facility] levothyroxi 2019-07 Yes TK 1 T PO U nivers ne 112 mcg 0-11 D ity of tablet 00:00: [place] [facility] levothyroxi 2019-07 Yes TK 1 T PO U nivers ne 112 mcg 0-11 D ity of tablet 00:00: [place] [facility] acetaminoph 2019-07 2020- No 1{tbl} Take 1 Tab [facility] en-codeine 0-09 10-09 by mouth [facility] (TYLENOL 19:38: 00:00 every 8 of #3) 300-30 58 :00 hours. Medicin MG per e tablet triamterene 2019-07 Yes 1{capsu Take 1 Cap [facility] [place] -hydrochlor 0-09 le} by mouth [facility] othiazide 19:38: every of (DYAZIDE) 49 morning. Medici n 37.5-25 MG e per capsule potassium 2019-07 Yes 10meq Take 10 [facility] chloride 0-09 mEq by [place] (MICRO-K) 19:38: mouth of 10 MEQ 49 daily. Medicin capsule e levothyroxi 2019-07 Yes 125ug Take 125 B aylor ne 0-09 mcg by [place] (SYNTHROID) 19:38: mouth of 125 MCG 49 daily. Medicin tablet e gabapentin 2019-07 Yes 500mg Take 500 [facility] (NEURONTIN) 0-09 mg by [place] 300 MG 19:38: mouth of capsule 49 [...] baclofen 2019-07 Yes 10mg Take 10 mg [facility] (LIORESAL) 0-09 by mouth Colle ge 10 MG 19:38: two times of tablet 49 daily. Medicin e Multiple 2019-07 Yes Take by [facility] [place] Vitamins-Mi 0-09 mouth [place] nerals 19:38: daily. of (MULTIVITAM 49 Medicin IN ADULT e OR) B Complex 2019-07 Yes Take by [facility] (B 0-09 mouth [place] COMPLEX 1 19:38: daily. of OR) 49 Medicin e Calcium 2019-07 Yes Take by [facility] [place] Citrate-Vit 0-09 mouth two Col lege oliver D 19:38: times of (CALCIUM 49 daily. Medicin CITRATE + D e OR) [place]-3 2019-07 Yes Take by [facility] [place] Fatty Acids 0-09 mouth [place] (FISH OIL) 19:38: daily. of 1200 MG 49 Medicin CAPS e Lactobacill 2019-07 Yes Take by [facility] us 0-09 mouth [facility] (PROBIOTIC 19:38: daily. of ACIDOPHILUS 49 Medicin OR) e Calcium 2019-07 Yes Take by [facility] [place] Polycarboph 0-09 mouth 3 Colle ge il 19:38: times of (FIBER-CAPS 49 daily. Medici n OR) e BIOTIN 5000 2019-07 Yes Take by [facility] OR 0-09 mouth [place] 19:38: daily. of 49 Medicin e L-THEANINE 2019-07 Yes 200mg Take 200 Ba ylor OR 0-09 mg by [facility] 19:38: mouth of 49 daily. Medicin e Ascorbic 2019-07 Yes Take by [facility] [place] Acid 0-09 mouth [place] (VITAMIN C) 19:38: daily. of 500 MG CAPS 49 Medicin e Turmeric 2019-07 Yes Take by [facility] [place] Curcumin 0-09 mouth. College 500 MG CAPS 19:38: of 49 Medicin e Magnesium 2019-07 Yes Take by [facility] 400 MG TABS 0-09 mouth. Colleg e 19:38: of 49 Medicin e Lidocaine 2019-07 Yes Apply [facility] [place] 0.5 % GEL 0-09 topically. [facility] ege 19:38: of 49 Medicin e levothyroxi 2019-07 Yes 125ug Take 125 B aylor ne 0-09 mcg by [facility] (SYNTHROID) 19:38: mouth of 125 MCG 49 daily. Medicin tablet e gabapentin 2019-07 Yes 500mg Take 500 [facility] (NEURONTIN) 0-09 mg by [facility] 300 MG 19:38: mouth of capsule 49 daily. Medicin e atorvastati 2019-07 Yes 20mg Take 20 mg [facility] [place] n (LIPITOR) 0-09 by mouth [facility] 20 MG 19:38: daily. of tablet 49 Medicin e baclofen 2019-07 Yes 10mg Take 10 mg [facility] (LIORESAL) 0-09 by mouth Colle ge 10 MG 19:38: two times of tablet 49 daily. Medicin e Multiple 2019-07 Yes Take by [facility] [place] Vitamins-Mi 0-09 mouth [place] nerals 19:38: daily. of (MULTIVITAM 49 Medicin IN ADULT e OR) B Complex 2019-07 Yes Take by [facility] r Vitamins (B 0-09 mouth [place] COMPLEX 1 19:38: daily. of OR) 49 Medicin e Calcium 2019-07 Yes Take by [facility] [place] Citrate-Vit 0-09 mouth two Col lege oliver D 19:38: times of (CALCIUM 49 daily. Medicin CITRATE + D e OR) [place]-3 2019-07 Yes Take by [facility] [place] Fatty Acids 0-09 mouth [place] (FISH OIL) 19:38: daily. of 1200 MG 49 Medicin CAPS e Lactobacill 2019-07 Yes Take by [facility] us 0-09 mouth College (PROBIOTIC 19:38: daily. of ACIDOPHILUS 49 Medicin OR) e Calcium 2019-07 Yes Take by [facility] [place] Polycarboph 0-09 mouth 3 [facility]le [facility] 19:38: times of (FIBER-CAPS 49 daily. Medici n OR) e BIOTIN 5000 2019-07 Yes Take by [facility] OR 0-09 mouth [facility] 19:38: daily. of 49 Medicin e L-THEANINE 2019-07 Yes 200mg Take 200 [facility] OR 0-09 mg by [facility] 19:38: mouth of 49 daily. Medicin e Ascorbic 2019-07 Yes Take by [facility] [place] Acid 0-09 mouth [place] (VITAMIN C) 19:38: daily. of 500 MG CAPS 49 Medicin e Turmeric 2019-07 Yes Take by [facility] [place] Curcumin 0-09 mouth. College 500 MG CAPS 19:38: of 49 Medicin e Magnesium 2019-07 Yes Take by [facility] 400 MG TABS 0-09 mouth. Colleg e 19:38: of 49 Medicin e Lidocaine 2019-07 Yes Apply [facility] [place] 0.5 % GEL 0-09 topically. [facility] 19:38: of 49 Medicin e potassium 2019-07 Yes 20meq Take 1 Tab B aylor chloride SA 0-09 by mouth [facility] (K-DUR, 00:00: two times of KLOR-CON 00 daily. Medicin M20) 20 MEQ e tablet gabapentin 2019-07 Yes TK 1 C PO Un landen 300 mg 0-06 HS ity of capsule 00:00: [place] [facility] gabapentin 2019-07 Yes TK 1 C PO Un landen 300 mg 0-06 HS ity of capsule 00:00: [place] [address] [facility] [place] gabapentin 2019-07 Yes TK 1 C PO Un landen 300 mg 0-06 HS ity of capsule 00:00: [address] gabapentin 2019-07 Yes TK 1 C PO Un land[place] 300 mg 0-06 HS ity of capsule 00:00: [place] [facility] [place] gabapentin 2019-07 Yes TK 1 C PO Un landen 300 mg 0-06 HS ity of capsule 00:00: [address] gabapentin 2019-07 Yes TK 1 C PO Un landen 300 mg 0-06 HS ity of capsule 00:00: [place] [address] [facility] losartan 2019-07 Yes [facility] (COZAAR) 25 0-05 College MG tablet 00:00: of 00 Medicin e losartan 2019-07 Yes [facility] (COZAAR) 25 0-05 College MG tablet 00:00: of Medicin e hydrOXYzine 2019-07 Yes Univer s 25 mg 0-05 ity of capsule 00:00: [address] lamoTRIgine 2019-07 Yes Univer s 25 mg 0-05 ity of tablet 00:00: [address] losartan 25 2019-07 Yes Univer s mg tablet 0-05 ity of 00:00: [address] hydrOXYzine 2019-07 Yes Univer s 25 mg 0-05 ity of capsule 00:00: [address] lamoTRIgine 2019-07 Yes Univer s 25 mg 0-05 ity of tablet 00:00: [address] losartan 25 2019-07 Yes Univer s mg tablet 0-05 ity of 00:00: [place] [facility] hydrOXYzine 2019- Yes Univer s 25 mg 0-05 ity of capsule 00:00: [place] [facility] lamoTRIgine 2019-07 Yes Univer s 25 mg 0-05 ity of tablet 00:00: [place] [facility] losartan 25 2019-07 Yes Univer s mg tablet 0-05 ity of 00:00: [place] [facility] hydrOXYzine 2019-07 Yes Univer s 25 mg 0-05 ity of capsule 00:00: [place] [facility] lamoTRIgine 2019-07 Yes Univer s 25 mg 0-05 ity of tablet 00:00: [place] [address] [facility] losartan 25 2019-07 Yes Univer s mg tablet 0-05 ity of 00:00: [place] [facility] hydrOXYzine 2019-07 Yes Univer s 25 mg 0-05 ity of capsule 00:00: [place] [facility] lamoTRIgine 2019-07 Yes Univer s 25 mg 0-05 ity of tablet 00:00: [place] [address] [facility] losartan 25 2019-07 Yes Univer s mg tablet 0-05 ity of 00:00: [place] [address] [facility] hydrOXYzine 2019-07 Yes Univer s 25 mg 0-05 ity of capsule 00:00: [place] [facility] lamoTRIgine 2019-07 Yes Univer s 25 mg 0-05 ity of tablet 00:00: [place] [address] [facility] losartan 25 2019-07 Yes Univer s mg tablet 0-05 ity of 00:00: [place] [address] [facility] losartan 2019-2020- No [facility] [place] (RANDEE) 25 0-05 01-08 College MG tablet 00:00: 00:00 of 00 :00 Medicin e triamterene 2019-07 Yes TK 1 C PO U nivers -hydrochlor 0-01 D ity of othiazide 00:00: [place] 37.5-25 mg 00 Medical per capsule Branch triamterene 2020 Yes TK 1 C PO U nivers -hydrochlor 0-01 D ity of othiazide 00:00: [place] 37.5-25 mg 00 Medical per capsule Branch [...] capsule Branch losartan 0 2020- No DAILY [facility] [place] (COZAAR) 25 9-11 11-19 College MG tablet 00:00: 00:00 of 00 :00 Medicin e risperdone Yes 1{tbl} Take 1 Tab [facility] [place] (RISPERDAL) 9-07 by mouth [facility] 0.25 MG 00:00: two times of tablet 00 daily. Medicin e risperdone Yes 1{tbl} Take 1 Tab [facility] (RISPERDAL) 9-07 by mouth [facility] 0.25 MG 00:00: two times of tablet 00 daily. Medicin e risperdone 2020- No 1{tbl} Take 1 Tab [facility] [place] (RISPERDAL) 9-07 01-08 by mouth Col lege 0.25 MG 00:00: 00:00 two times of tablet 00 :00 daily. Medicin e triamterene Yes 1{capsu Take 1 Cap [facility] [place] -hydrochlor 8-11 le} by mouth [facility] othiazide 16:27: every of (DYAZIDE) 09 morning. Medici n 37.5-25 MG e per capsule potassium Yes 10meq Take 10 [facility] chloride 8-11 mEq by [place] (MICRO-K) 16:27: mouth of 10 MEQ 09 daily. Medicin capsule e levothyroxi Yes 125ug Take 125 B aylor ne 8-11 mcg by [place] (SYNTHROID) 16:27: mouth of 125 MCG 09 daily. Medicin tablet e gabapentin Yes 500mg Take 500 [facility] (NEURONTIN) 8-11 mg by [place] 300 MG 16:27: mouth of capsule 09 daily. Medicin e lamoTRIgine 2020-0 Yes 50mg Take 50 mg [facility] 50 MG TBDP 02-27 by mouth Colle ge 16:27: two times of 09 daily. Medicin e baclofen 2020-0 Yes 10mg Take 10 mg [facility] (LIORESAL) 02-27 by mouth Colle ge 10 MG 16:27: two times of tablet 09 daily. Medicin e Multiple 2020-0 Yes Take by [facility] [place] Vitamins-Mi 02-27 mouth [place] nerals 16:27: daily. of (MULTIVITAM 09 Medicin IN ADULT e OR) B Complex 2020-0 Yes Take by [facility] (B 02-27 mouth [place] COMPLEX 1 16:27: daily. of OR) 09 Medicin e Calcium 2020-0 Yes Take by [facility] [place] Citrate-Vit 02-27 mouth two Col lege oliver D 16:27: times of (CALCIUM 09 daily. Medicin CITRATE + D e OR) [place]-3 2020-0 Yes Take by [facility] [place] Fatty Acids 02-27 [facility] [place] 16:27: daily. of 1200 MG 09 Medicin CAPS e Lactobacill 2020-0 Yes Take by [facility] us 02-27 mouth [place] (PROBIOTIC 16:27: daily. of ACIDOPHILUS 09 Medicin OR) e Calcium 2020-0 Yes Take by [facility] [place] Polycarboph 02-27 mouth 3 [facility] 16:27: times of (FIBER-CAPS 09 daily. Medici n OR) e BIOTIN 5000 2020-0 Yes Take by [facility] [place] 02-27 [facility] [place] 16:[place]: daily. of 09 Medicin e L-THEANINE 2020-0 Yes 200mg Take 200 [facility] OR 8-11 mg by [place] 16:27: mouth of 09 daily. Medicin e Turmeric 2020-0 Yes Take by [facility] [place] Curcumin 02-27 mouth. [place] 500 MG CAPS 16:27: of 09 Medicin e Magnesium 2020-0 Yes Take by [facility] r 400 MG TABS 02-27 mouth. Colleg e 16:27: of 09 Medicin e Lidocaine 2020-0 Yes Apply [facility] 0.5 % GEL 02-27 topically. [facility] 16:27: of 09 Medicin e atorvastati 2020-0 Yes 20mg Take 20 mg [facility] n (LIPITOR) 02-27 by mouth [facility] 20 MG 16:25: daily. of tablet 47 Medicin e Ascorbic 2020-0 Yes Take by [facility] [place] Acid 02-27 [facility] [place]VITAMIN C) 16:25: daily. of 500 MG CAPS 47 Medicin e acetaminoph 2020-0 Yes 1{tbl} Take 1 Tab [facility] [place] en-codeine 02-27 by mouth [facility] (TYLENOL 16:25: every 8 of #3) 300-30 47 hours. Medicin MG per e tablet levofloxaci 2020-0 2020- No [id number] 500mg Take 1 Tab [facility] [place] n 02-19 [place] [facility] [place]QUIN[place] 00:00: 04:59 daily for o f 500 MG 00 :00 3 days. 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 levofloxaci 2020-0 2020- No [id number] 500mg Take 1 Tab [facility] n 02-19 by [facility] [place]QUIN[place] 00:00: 04:59 daily for o f 500 MG 00 :00 3 days. 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 levofloxaci 2020-0 2020- No [id number] 500mg Take 1 Tab [facility] n 02-19 by [facility] [place]LEVAQUIN) 00:00: 04:59 daily for o f 500 MG 00 :00 3 days. 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 levofloxaci 2020-0 2020- No [id number] 500mg Take 1 Tab [facility] n 02-19 by [facility] [place]LEVAQUIN) 00:00: 04:59 daily for o [...] 2020-0 Yes TK 1 T PO B [facility] ne 7-14 D College (SYNTHROID) 00:00: of 112 MCG 00 Medicin tablet e levothyroxi 2020-0 2021- No TK 1 T PO [facility] [place] ne 7-14 01-08 D College (SYNTHROID) 00:00: 00:00 of 112 MCG 00 :00 Medicin tablet e mirtazapine 2020-0 Yes 15mg Take 1 Tab [facility] (REMERON) 01-25 by mouth Colleg e 15 MG 00:00: nightly. of tablet 00 Medicin e mirtazapine 2020-0 Yes 15mg Take 1 Tab [facility] [place] (REMERON) 01-25 by mouth Colleg e 15 MG 00:00: nightly. of tablet 00 Medicin e mirtazapine 2020-0 2020- No 15mg Take 1 Tab [facility] (REMERON) 01-25 by mouth Colle ge 15 MG 00:00: 00:00 nightly. of tablet 00 :00 Medicin e triamcinolo 2020-0 2020- No [id number] Ba [facility] ne 01-16 College acetonide 14:15: 14:02 of (KENALOG-40 00 :00 Medicin ) 40 mg/mL e 40 mg, bupivacaine (PF) (MARCAINE) 0.5 % 1 mL iohexol 2020-0 2020- No [id number] 1mL [facility] (OMNIPAQUE) 01-16 College 300 MG/ML 14:15: 14:02 of injection 1 00 :00 Medicin mL e iohexol 2020-0 2020- No [id number] 1mL 1 mL, [facility] (OMNIPAQUE) 01-16 Epidural, Co llege 300 MG/ML 14:15: 14:02 ONCE, 1 of injection 1 00 :00 dose, Tue Med icin mL 01/17/20 at e 0915 triamcinolo 2020-0 2020- No [id number] Epidural, [facility] [place] ne 6-30 06-30 ONCE, 1 [place] acetonide 14:15: 14:02 dose, Tue of (KENALOG-40 00 :00 01/17/20 at [place] dicin ) 40 mg/mL 0915 e 40 mg, bupivacaine (PF) (MARCAINE) 0.5 % 1 mL triamterene 2020-0 Yes 1{capsu Take 1 Cap [facility] [place] -hydrochlor 6-23 le} by mouth [facility] othiazide 13:49: every of (DYAZIDE) 30 morning. Medici n 37.5-25 MG e per capsule potassium 2020-0 Yes 10meq Take 10 [facility] chloride 6-23 mEq by [place] (MICRO-K) 13:49: mouth of 10 MEQ 30 daily. Medicin capsule e levothyroxi 2020-0 Yes 125ug Take 125 B a[facility]or ne 6-23 mcg by [place] (SYNTHROID) 13:49: mouth of 125 MCG 30 daily. Medicin tablet e gabapentin 2020-0 Yes 500mg Take 500 [facility] (NEURONTIN) 6-23 mg by [place] 300 MG 13:49: mouth of capsule 30 daily. Medicin e atorvastati 2020-0 Yes 20mg Take 20 mg [facility] [place] n (LIPITOR) 6-23 by mouth [facility] 20 MG 13:49: daily. of tablet 30 Medicin e lamoTRIgine 2020-0 Yes 50mg Take 50 mg [facility] 50 MG TBDP 6-23 by mouth Colle ge 13:49: two times of 30 daily. Medicin e baclofen 2020-0 Yes 10mg Take 10 mg [facility] (LIORESAL) 6-23 by mouth Colle ge 10 MG 13:49: two times of tablet 30 daily. Medicin e Multiple 2020-0 Yes Take by [facility] [place] Vitamins-Mi 6-23 mouth [place] nerals 13:49: daily. of (MULTIVITAM 30 Medicin IN ADULT e OR) B Complex 2020-0 Yes Take by [facility] r Vitamins (B 6-23 mouth [place] COMPLEX 1 13:49: daily. of OR) 30 Medicin e Calcium 2020-0 Yes Take by [facility] [place] Citrate-Vit 6-23 mouth two Col lege oliver D 13:49: times of (CALCIUM 30 daily. Medicin CITRATE + D e OR) [place]-3 2020-0 Yes Take by [facility] [place] Fatty Acids 01-09 [facility] [place]FISH OIL) 13:49: daily. of 1200 MG 30 Medicin CAPS e Lactobacill 2020-0 Yes Take by [facility] us 01-09 mouth [place] (PROBIOTIC 13:49: daily. of ACIDOPHILUS 30 Medicin OR) e Calcium 2020-0 Yes Take by [facility] [place] Polycarboph 01-09 mouth 3 Colle ge il 13:49: times of (FIBER-CAPS 30 daily. Medici n OR) e BIOTIN 5000 2020-0 Yes Take by [facility] OR - mouth [place] 13:49: daily. of 30 Medicin e L-THEANINE 2020-0 Yes 200mg Take 200 [facility] OR 6-23 mg by [place] 13:49: mouth of 30 daily. Medicin e Ascorbic 2020-0 Yes Take by [facility] [place] Acid 01-09 [facility] [place]VITAMIN C) 13:49: daily. of 500 MG CAPS 30 Medicin e Turmeric 2020-0 Yes Take by [facility] [place] Curcumin 01-09 [facility]. [place] 500 MG CAPS 13:49: of 30 Medicin e acetaminoph 2020-0 Yes 1{tbl} Take 1 Tab [facility] en-codeine 6-23 by mouth Colle ge (TYLENOL 13:49: every 8 of #3) 300-30 30 hours. Medicin MG per e tablet Magnesium 2020-0 Yes Take by [facility] 400 MG TABS - mouth. Colleg e 13:49: of 30 Medicin e Lidocaine 2020-0 Yes Apply [facility] 0.5 % GEL 6- topically. [facility] 13:49: of 30 Medicin e triamterene 2020-0 Yes 1{capsu Take 1 Cap [facility] [place] -hydrochlor 6-23 le} by mouth [facility] othiazide 13:49: every of (DYAZIDE) 30 morning. Medici n 37.5-25 MG e per capsule potassium 2020-0 Yes 10meq Take 10 [facility] chloride 6-23 mEq by [place] (MICRO-K) 13:49: mouth of 10 MEQ 30 daily. Medicin capsule e levothyroxi 2020-0 Yes 125ug Take 125 B [facility] ne 6-23 mcg by [place] (SYNTHROID) 13:49: mouth of 125 MCG 30 daily. Medicin tablet e gabapentin 2020-0 Yes 500mg Take 500 [facility] (NEURONTIN) 6-23 mg by [place] 300 MG 13:49: mouth of capsule 30 daily. Medicin e atorvastati 2020-0 Yes 20mg Take 20 mg [facility] [place] n (LIPITOR) - by mouth [facility] 20 MG 13:49: daily. of tablet 30 Medicin e lamoTRIgine 2020-0 Yes 50mg Take 50 mg [facility] [place] 50 MG TBDP - by mouth Colle ge 13:49: two times of 30 daily. Medicin e baclofen 2020-0 Yes 10mg Take 10 mg [facility] (LIORESAL) 01-09 by mouth Colle ge 10 MG 13:49: two times of tablet 30 daily. Medicin e Multiple 2020-0 Yes Take by [facility] [place] Vitamins-Mi 01-09 mouth [place] nerals 13:49: daily. of (MULTIVITAM 30 Medicin IN ADULT e OR) B Complex 2020-0 Yes Take by [facility] Vitamins (B 01-09 mouth [place] COMPLEX 1 13:49: daily. of OR) 30 Medicin e Calcium 2020-0 Yes Take by [facility] [place] Citrate-Vit 01-09 [facility] Col lege oliver D 13:49: times of (CALCIUM 30 daily. Medicin CITRATE + D e OR) [place]-3 2020-0 Yes Take by [facility] [place] Fatty Acids 01-09 [facility] [place]FISH OIL) 13:49: daily. of 1200 MG 30 Medicin CAPS e Lactobacill 2020-0 Yes Take by [facility] us 01-09 mouth [place] (PROBIOTIC 13:49: daily. of ACIDOPHILUS 30 Medicin OR) e Calcium 2020-0 Yes Take by [facility] [place] Polycarboph 01-09 mouth 3 Colle ge il 13:49: times of (FIBER-CAPS 30 daily. Medici n OR) e BIOTIN 5000 2020-0 Yes Take by [facility] [place] 01-09 mouth [place] 13:49: daily. of 30 Medicin e L-THEANINE 2020-0 Yes 200mg Take 200 [facility] OR 6-23 mg by [facility] 13:49: mouth of 30 daily. Medicin e Ascorbic 2020-0 Yes Take by [facility] [place] Acid 01-09 [facility] [place]VITAMIN C) 13:49: daily. of 500 MG CAPS 30 Medicin e Turmeric 2020-0 Yes Take by [facility] [place] Curcumin - mouth. College 500 MG CAPS 13:49: of 30 Medicin e acetaminoph 2020-0 Yes 1{tbl} Take 1 Tab [facility] en-codeine 6-23 by mouth Colle ge (TYLENOL 13:49: every 8 of #3) 300-30 30 hours. Medicin MG per e tablet Magnesium 2020-0 Yes Take by [facility] 400 MG TABS 6-23 mouth. Colleg e 13:49: of 30 Medicin e Lidocaine 2020-0 Yes Apply [facility] 0.5 % GEL 6-23 topically. [facility] 13:49: of 30 Medicin e triamterene 2020-0 Yes 1{capsu Take 1 Cap [facility] [place] -hydrochlor 6-19 le} by mouth [facility] othiazide 18:04: every of (DYAZIDE) 39 morning. Medici n 37.5-25 MG e per capsule potassium 2020-0 Yes 10meq Take 10 [facility] chloride 6-19 mEq by [place] (MICRO-K) 18:04: mouth of 10 MEQ 39 daily. Medicin capsule e levothyroxi 2020-0 Yes 125ug Take 125 B [facility] ne 6-19 mcg by [place] (SYNTHROID) 18:04: mouth of 125 MCG 39 daily. Medicin tablet e gabapentin 2020-0 Yes 500mg Take 500 [facility] (NEURONTIN) 6-19 mg by [place] 300 MG 18:04: mouth of capsule 39 daily. Medicin e atorvastati 2020-0 Yes 20mg Take 20 mg [facility] [place] n (LIPITOR) 6-19 by mouth [facility] 20 MG 18:04: daily. of tablet 39 Medicin e lamoTRIgine 2020-0 Yes 50mg Take 50 mg [facility] [place] 50 MG TBDP 6-19 by mouth Colle ge 18:04: two times of 39 daily. Medicin e baclofen 2020-0 Yes 10mg Take 10 mg [facility] (LIORESAL) 6-19 by mouth Colle ge 10 MG 18:04: two times of tablet 39 daily. Medicin e Multiple 2020-0 Yes Take by [facility] [place] Vitamins-Mi 6-19 mouth [place] nerals 18:04: daily. of (MULTIVITAM 39 Medicin IN ADULT e OR) B Complex 2020-0 Yes Take by [facility] Vitamins (B 6-19 mouth [place] COMPLEX 1 18:04: daily. of OR) 39 Medicin e Calcium 2020-0 Yes Take by [facility] [place] Citrate-Vit 6-19 mouth two Col [facility]ge oliver D 18:04: times of (CALCIUM 39 daily. Medicin CITRATE + D e OR) [place]-3 2020-0 Yes Take by [facility] [place] Fatty Acids 01-05 mouth [place] (FISH OIL) 18:04: daily. of 1200 MG 39 Medicin CAPS e Lactobacill 2020-0 Yes Take by [facility] us - mouth [place] (PROBIOTIC 18:04: daily. of ACIDOPHILUS 39 Medicin OR) e Calcium 2020-0 Yes Take by [facility] [place] Polycarboph - mouth 3 Colle ge il 18:04: times of (FIBER-CAPS 39 daily. Medici n OR) e BIOTIN 5000 2020-0 Yes Take by [facility] [place] - mouth [place] 18:04: daily. of 39 Medicin e L-THEANINE 2020-0 Yes 200mg Take 200 [facility] OR 6-19 mg by [place] 18:04: mouth of 39 daily. Medicin e Ascorbic 2020-0 Yes Take by [facility] [place] Acid 01-05 [facility] [place]VITAMIN C) 18:04: daily. of 500 MG CAPS 39 Medicin e Turmeric 2020-0 Yes Take by [facility] r Curcumin - mouth. [place] 500 MG CAPS 18:04: of 39 Medicin e acetaminoph 2020-0 Yes 1{tbl} Take 1 Tab [facility] [place] en-codeine 6-19 by mouth Colle ge (TYLENOL 18:04: every 8 of #3) 300-30 39 hours. Medicin MG per e tablet Magnesium 2020-0 Yes Take by [facility] 400 MG TABS - mouth. Colleg e 18:04: of 39 Medicin e Lidocaine 2020-0 Yes Apply [facility] [place] 0.5 % GEL - topically. [facility] 18:04: of 39 Medicin e triamterene 2020-0 Yes 1{capsu Take 1 Cap [facility] -hydrochlor 6-19 le} by mouth [facility] othiazide 18:04: every of (DYAZIDE) 39 morning. Medici n 37.5-25 MG e per capsule potassium 2020-0 Yes 10meq Take 10 [facility] chloride 6-19 mEq by [place] (MICRO-K) 18:04: mouth of 10 MEQ 39 daily. Medicin capsule e levothyroxi 2020-0 Yes 125ug Take 125 B [facility] ne 6-19 mcg by [place] (SYNTHROID) 18:04: mouth of 125 MCG 39 daily. Medicin tablet e gabapentin 2020-0 Yes 500mg Take 500 [facility] (NEURONTIN) 6-19 mg by [place] 300 MG 18:04: mouth of capsule 39 daily. Medicin e atorvastati 2020-0 Yes 20mg Take 20 mg [facility] n (LIPITOR) 6-19 by mouth [facility] 20 MG 18:04: daily. of tablet 39 Medicin e lamoTRIgine 2020-0 Yes 50mg Take 50 mg [facility] 50 MG TBDP -19 by mouth Colle ge 18:04: two times of 39 daily. Medicin e baclofen 2020-0 Yes 10mg Take 10 mg [facility] (LIORESAL) - by mouth Colle ge 10 MG 18:04: two times of tablet 39 daily. Medicin e Multiple 2020-0 Yes Take by [facility] [place] Vitamins-Mi 01-05 mouth [place] nerals 18:04: daily. of (MULTIVITAM 39 Medicin IN ADULT e OR) B Complex 2020-0 Yes Take by [facility] Vitamins (B 01-05 mouth [place] COMPLEX 1 18:04: daily. of OR) 39 Medicin e Calcium 2020-0 Yes Take by [facility] [place] Citrate-Vit 01-[address] [facility] Col lege oliver D 18:04: times of (CALCIUM 39 daily. Medicin CITRATE + D e OR) [place]-3 2020-0 Yes Take by [facility] [place] Fatty Acids 01-05 mouth [place] (FISH OIL) 18:04: daily. of 1200 MG 39 Medicin CAPS e Lactobacill 2020-0 Yes Take by [facility] us 01-05 mouth [facility] (PROBIOTIC 18:04: daily. of ACIDOPHILUS 39 Medicin OR) e Calcium 2020-0 Yes Take by [facility] [place] Polycarboph 01-05 mouth 3 Colle ge il 18:04: times of (FIBER-CAPS 39 daily. Medici n OR) e BIOTIN 5000 2020-0 Yes Take by [facility] OR - mouth [facility] 18:04: daily. of 39 Medicin e L-THEANINE 2020-0 Yes 200mg Take 200 [facility] OR 6-19 mg by [facility] 18:04: mouth of 39 daily. Medicin e Ascorbic 2020-0 Yes Take by [facility] [place] Acid 01-05 mouth [place] (VITAMIN C) 18:04: daily. of 500 MG CAPS 39 Medicin e Turmeric 2020-0 Yes Take by [facility] [place] Curcumin - mouth. College 500 MG CAPS 18:04: of 39 Medicin e acetaminoph 2020-0 Yes 1{tbl} Take 1 Tab [facility] [place] en-codeine -19 by mouth Colle ge (TYLENOL 18:04: every 8 of #3) 300-30 39 hours. Medicin MG per e tablet Magnesium 2020-0 Yes Take by [facility] 400 MG TABS 6-19 mouth. [facility] 18:04: of 39 Medicin e Lidocaine 2020-0 Yes Apply [facility] [place] 0.5 % GEL - topically. [facility] 18:04: of 39 Medicin e fluoxetine 2020-0 2020- No 10mg Take 10 mg [facility] [place] (PROZAC) 10 -17 -17 by mouth Col lege MG tablet 16:48: 00:00 daily. of 05 :00 Medicin e hydrOXYzine 2020-0 2020- No 25mg Take 25 mg [facility] [place] (ATARAX) 25 6-17 -17 by mouth Col lege MG tablet 16:38: 00:00 two times of 31 :00 daily. Medicin e hydrOXYzine 2020-0 Yes 50mg Take 1 Tab [facility] (ATARAX) 50 6-17 by mouth 3 Co llege MG tablet 00:00: times of 00 daily as Medicin needed for e Anxiety. Desvenlafax 2020-0 Yes 25mg Take 25 mg [facility] [place] ine 6-17 by mouth [facility] Succinate 00:00: daily. of ER 25 MG 00 Medicin TB24 e hydrOXYzine 2020-0 Yes 50mg Take 1 Tab [facility] (ATARAX) 50 6-17 by mouth 3 Co llege MG tablet 00:00: times of 00 daily as Medicin needed for e Anxiety. Desvenlafax 2020-0 Yes 25mg Take 25 mg [facility] [place] ine 6-17 by mouth [facility] Succinate 00:00: [...] hydrOXYzine 2020-0 Yes 50mg Take 1 Tab [facility] [place] (ATARAX) 50 6-17 by mouth 3 [employer] l[employer] MG tablet 00:00: times of 00 daily as Medicin needed for e Anxiety. Desvenlafax 2020-0 Yes 25mg Take 25 mg [facility] [place] ine 6-17 by mouth [employer] Succinate 00:00: daily. of ER 25 MG 00 Medicin TB24 e hydrOXYzine 2020-0 Yes 50mg Take 1 Tab [facility] [place] (ATARAX) 50 6-17 by mouth 3 [employer] MG tablet 00:00: times of 00 daily as Medicin needed for e Anxiety. hydrOXYzine 2020-0 Yes 50mg Take 1 Tab [facility] (ATARAX) 50 6-17 by mouth 3 [employer] MG tablet 00:00: times of 00 daily as Medicin needed for e Anxiety. hydrOXYzine 2020-0 2020- No 50mg Take 1 Tab [facility] (ATARAX) 50 6-17 10-27 by mouth 3 C [employer] MG tablet 00:00: 00:00 times of 00 :00 daily as Medicin needed for e Anxiety. Lexiscan IV 2020-0 2020- No [id number] .4mg B aylor Shanell) 0.4 12-18 [place] MG/5ML 16:00: 15:00 of injection 00 :00 Medicin 0.4 mg e Technetium 2020-0 2020- No [id number] 5mCi [facility] Tc 99m 12-18 [place] Tetrofosmin 16:00: 15:00 of (MYOVIEW) 00 :00 Medicin injection e 5-30 millicurie Technetium 2020-0 2020- No [id number] 5mCi [facility] Tc 99m 12-18 [place] Tetrofosmin 16:00: 14:00 of (MYOVIEW) 00 :00 Medicin injection e 5-30 millicurie triamterene 2020-0 Yes 1{capsu Take 1 Cap [facility] [place] -hydrochlor 5-26 le} by mouth Shanel ege othiazide 15:32: every of (DYAZIDE) 13 morning. Medici n 37.5-25 MG e per capsule potassium 2020-0 Yes 10meq Take 10 [facility] chloride 5-26 mEq by [place] (MICRO-K) 15:32: mouth of 10 MEQ 13 daily. Medicin capsule e levothyroxi 2019-0 Yes 125ug Take 125 B aylor ne -26 mcg by [employer] (SYNTHROID) 15:32: mouth of 125 MCG 13 daily. Medicin tablet e gabapentin 2020-0 Yes 300mg Take 300 [facility] (NEURONTIN) -26 mg by [employer] 300 MG 15:32: mouth of capsule 13 daily. Medicin e atorvastati 2020-0 Yes 20mg Take 20 mg [facility] [place] n (LIPITOR) 12-12 by mouth Shanel ege 20 MG 15:32: daily. of tablet 13 Medicin e lamoTRIgine 2020-0 Yes 50mg Take 50 mg [facility] 50 MG TBDP 12-12 by mouth Colle ge 15:32: two times of 13 daily. Medicin e hydrOXYzine 2020-0 Yes 25mg Take 25 mg [facility] [place] (ATARAX) 25 12-12 by mouth Shanel ege MG tablet 15:32: two times of 13 daily. Medicin e baclofen 2020-0 Yes 10mg Take 10 mg [facility] (LIORESAL) 12-12 by mouth Colle ge 10 MG 15:32: two times of tablet 13 daily. Medicin e Multiple 2020-0 Yes Take by [facility] [place] Vitamins-Mi 12-12 mouth [place] nerals 15:32: daily. of (MULTIVITAM 13 Medicin IN ADULT e OR) B Complex 2020-0 Yes Take by [facility] (B 12-12 mouth [place] COMPLEX 1 15:32: daily. of OR) 13 Medicin e Calcium 2020-0 Yes Take by [facility] [place] Citrate-Vit 12-12 mouth two [employer] lege oliver D 15:32: times of (CALCIUM 13 daily. Medicin CITRATE + D e OR) [place]-3 2020-0 Yes Take by [facility] [place] Fatty Acids 12-12 mouth [place] (FISH OIL) 15:32: daily. of 1200 MG 13 Medicin CAPS e Lactobacill 2020-0 Yes Take by [facility] us 12-12 mouth College (PROBIOTIC 15:32: daily. of ACIDOPHILUS 13 Medicin OR) e Calcium 2020-0 Yes Take by [facility] [place] Polycarboph 12-12 mouth 3 Colle ge il 15:32: times of (FIBER-CAPS 13 daily. Medici n OR) e BIOTIN 5000 2020-0 Yes Take by [facility] OR 12-12 mouth [facility] 15:32: daily. of 13 Medicin e L-THEANINE 2020-0 Yes 200mg Take 200 [facility] OR 5-26 mg by [place] 15:32: mouth of 13 daily. Medicin e Ascorbic 2020-0 Yes Take by [facility] [place] Acid 5-26 mouth [place] (VITAMIN C) 15:32: daily. of 500 MG CAPS 13 Medicin e Turmeric 2020-0 Yes Take by [facility] [place] Curcumin 5-26 mouth. [place] 500 MG CAPS 15:32: of 13 Medicin [...] triamterene 2020-0 Yes 1{capsu Take 1 Cap [facility] -hydrochlor 5-26 le} by mouth Shanel ege othiazide 15:32: every of (DYAZIDE) 13 morning. Medici n 37.5-25 MG e per capsule potassium 2020-0 Yes 10meq Take 10 [facility] chloride 5-26 mEq by [place] (MICRO-K) 15:32: mouth of 10 MEQ 13 daily. Medicin capsule e levothyroxi 2020-0 Yes 125ug Take 125 B a[facility]or ne 5-26 mcg by [place] (SYNTHROID) 15:32: mouth of 125 MCG 13 daily. Medicin tablet e gabapentin 2020-0 Yes 300mg Take 300 [facility] (NEURONTIN) 5-26 mg by [place] 300 MG 15:32: mouth of capsule 13 daily. Medicin e atorvastati 2020-0 Yes 20mg Take 20 mg [facility] [place] n (LIPITOR) 5-26 by mouth Shanel ege 20 MG 15:32: daily. of tablet 13 Medicin e lamoTRIgine 2020-0 Yes 50mg Take 50 mg [facility] 50 MG TBDP 5-26 by mouth Colle ge 15:32: two times of 13 daily. Medicin e hydrOXYzine 2020-0 Yes 25mg Take 25 mg [facility] (ATARAX) 25 5-26 by mouth Shanel ege MG tablet 15:32: two times of 13 daily. Medicin e baclofen 2020-0 Yes 10mg Take 10 mg [facility] (LIORESAL) 5-26 by mouth Colle ge 10 MG 15:32: two times of tablet 13 daily. Medicin e Multiple 2020-0 Yes Take by [facility] [place] Vitamins-Mi 12-12 mouth [place] nerals 15:32: daily. of (MULTIVITAM 13 Medicin IN ADULT e OR) B Complex 2020-0 Yes Take by [facility] r Vitamins (B 12-12 mouth [place] COMPLEX 1 15:32: daily. of OR) 13 Medicin e Calcium 2020-0 Yes Take by [facility] [place] Citrate-Vit 12-[address] [facility] Col lege oliver D 15:32: times of (CALCIUM 13 daily. Medicin CITRATE + D e OR) [place]-3 2020-0 Yes Take by [facility] [place] Fatty Acids 12-12 [facility] [place] OIL) 15:32: daily. of 1200 MG 13 Medicin CAPS e Lactobacill 2020-0 Yes Take by [facility] us 12-12 mouth [place] (PROBIOTIC 15:32: daily. of ACIDOPHILUS 13 Medicin OR) e Calcium 2020-0 Yes Take by [facility] [place] Polycarboph 12-12 mouth 3 Colle ge il 15:32: times of (FIBER-CAPS 13 daily. Medici n OR) e BIOTIN 5000 2020-0 Yes Take by [facility] OR 12-12 mouth [place] 15:32: daily. of 13 Medicin e L-THEANINE 2020-0 Yes 200mg Take 200 [facility] [place] 12-12 mg by College 15:32: mouth of 13 daily. Medicin e Ascorbic 2020-0 Yes Take by [facility] [place] Acid 12-12 [facility] [place] (VITAMIN C) 15:32: daily. of 500 MG CAPS 13 Medicin e Turmeric 2020-0 Yes Take by [facility] [place] Curcumin 12-12 mouth. [place] 500 MG CAPS 15:32: of 13 Medicin e acetaminoph 2020-0 Yes 1{tbl} Take 1 Tab [facility] [place] en-codeine 12-12 by mouth Colle ge (TYLENOL [...] 10 [facility] chloride 5-19 mEq by [place] (MICRO-K) 14:28: mouth of 10 MEQ 36 daily. Medicin capsule e levothyroxi 2020-0 Yes 125ug Take 125 B aylor ne 5-19 mcg by [place] (SYNTHROID) 14:28: mouth of 125 MCG 36 daily. Medicin tablet e gabapentin 2020-0 Yes 300mg Take 300 [facility] (NEURONTIN) 5-19 mg by [place] 300 MG 14:28: mouth of capsule 36 daily. Medicin e atorvastati 2020-0 Yes 20mg Take 20 mg [facility] n (LIPITOR) - by mouth Shanel ege 20 MG 14:28: daily. of tablet 36 Medicin e lamoTRIgine 2020-0 Yes 50mg Take 50 mg [facility] 50 MG TBDP - by mouth Colle ge 14:28: two times of 36 daily. Medicin e hydrOXYzine 2020-0 Yes 25mg Take 25 mg [facility] [place] (ATARAX) 25 12-05 by mouth Shanel ege MG tablet 14:28: two times of 36 daily. Medicin e baclofen 2020-0 Yes 10mg Take 10 mg [facility] (LIORESAL) 12-05 by mouth Colle ge 10 MG 14:28: two times of tablet 36 daily. Medicin e Multiple 2020-0 Yes Take by [facility] [place] Vitamins-Mi 12-05 [facility] [place] [facility] [place] 14:28: daily. of (MULTIVITAM 36 Medicin IN ADULT e OR) B Complex 2020-0 Yes Take by [facility] r Vitamins (B 12-05 mouth [place] COMPLEX 1 14:28: daily. of OR) 36 Medicin e Calcium 2020-0 Yes Take by [facility] [place] Citrate-Vit - mouth two Col lege oliver D 14:28: times of (CALCIUM 36 daily. Medicin CITRATE + D e OR) [place]-3 2020-0 Yes Take by [facility] [place] Fatty Acids 12-05 [facility] [place]FISH OIL) 14:28: daily. of 1200 MG 36 Medicin CAPS e Lactobacill 2020-0 Yes Take by [facility] us 12-05 mouth [place] (PROBIOTIC 14:28: daily. of ACIDOPHILUS 36 Medicin OR) e Calcium 2020-0 Yes Take by [facility] [place] Polycarboph 5-19 mouth 3 Colle ge il 14:28: times of (FIBER-CAPS 36 daily. Medici n OR) e BIOTIN 5000 2020-0 Yes Take by [facility] OR 5-19 mouth [place] 14:28: daily. of 36 Medicin e L-THEANINE 2020-0 Yes 200mg Take 200 [facility] [place] 5-19 mg by [place] 14:28: mouth of 36 daily. Medicin e Ascorbic 2020-0 Yes Take by [facility] [place] Acid 5-19 mouth [place] (VITAMIN C) 14:28: daily. of 500 MG CAPS 36 Medicin e Turmeric 2020-0 Yes Take by [facility] [place] Curcumin 5-19 mouth. [place] 500 MG CAPS 14:28: of 36 Medicin e acetaminoph 2020-0 Yes 1{tbl} Take 1 Tab [facility] [place] en-codeine 5-19 by mouth Colle (TYLENOL 14:28: every 4 of #3) 300-30 36 hours as Medic in MG per needed for e tablet Pain. fluoxetine 2020-0 Yes 10mg Take 10 mg [facility] (PROZAC) 10 5-19 by mouth Shanel ege MG tablet 14:28: daily. of 36 Medicin e hydrocodone 2020-0 2020- No 1{tbl} Take 1 Tab [facility] [place] -acetaminop 5-19 05-19 by mouth 2 C ismael aranda (KG Funding) 14:27: 00:00 times of 7.5-325 MG 10 :00 daily as Medic in per tablet needed for e Pain. hydrocodone 2020-0 Yes 1{tbl} Take 1 Tab [facility] [place] -acetaminop 5-05 by mouth 2 Co yvonneegcornelius aranda (KG Funding) 14:46: times of 7.5-325 MG 24 daily as Medic in per tablet needed for e Pain. Turmeric 2020-0 Yes Take by [facility] [place] Curcumin 5-05 mouth. [place] 500 MG CAPS 14:46: of 19 Medicin e triamterene 2020-0 Yes 1{capsu Take 1 Cap [facility] [place] -hydrochlor 5-05 le} by mouth Shanel ege othiazide 14:46: every of (DYAZIDE) 18 morning. Medici n 37.5-25 MG e per capsule potassium 2020-0 Yes 10meq Take 10 [facility] chloride 5-05 mEq by [place] (MICRO-K) 14:46: mouth of 10 MEQ 18 daily. Medicin capsule e levothyroxi 2020-0 Yes 125ug Take 125 B [facility] ne 5-05 mcg by [employer] (SYNTHROID) 14:46: mouth of 125 MCG 18 daily. Medicin tablet e gabapentin 2020-0 Yes 300mg Take 300 [facility] (NEURONTIN) 5-05 mg by [place] 300 MG 14:46: mouth of capsule 18 daily. Medicin e atorvastati 2020-0 Yes 20mg Take 20 mg [facility] n (LIPITOR) 5-05 by mouth Shanel ege 20 MG 14:46: daily. of tablet 18 Medicin e lamoTRIgine 2020-0 Yes 50mg Take 50 mg [facility] [place] 50 MG TBDP 5-05 by mouth Colle ge 14:46: two times of 18 daily. Medicin e hydrOXYzine 2020-0 Yes 25mg Take 25 mg [facility] [place] (ATARAX) 25 5-05 by mouth Shanel ege MG tablet 14:46: two times of 18 daily. Medicin e baclofen 2020-0 Yes 10mg Take 10 mg [facility] (LIORESAL) 5-05 by mouth Colle ge 10 MG 14:46: two times of tablet 18 daily. Medicin e Multiple 2020-0 Yes Take by [facility] [place] Vitamins-Mi 5-05 mouth [place] nerals 14:46: daily. of (MULTIVITAM 18 Medicin IN ADULT e OR) B Complex 2020-0 Yes Take by [facility] r Vitamins (B 5-05 mouth [place] COMPLEX 1 14:46: daily. of OR) 18 Medicin e Calcium 2020-0 Yes Take by [facility] [place] Citrate-Vit 5-05 mouth two Col lege oliver D 14:46: times of (CALCIUM 18 daily. Medicin CITRATE + D e OR) [place]-3 2020-0 Yes Take by [facility] [place] Fatty Acids -05 mouth [place] (FISH OIL) 14:46: daily. of 1200 MG 18 Medicin CAPS e Lactobacill 2020-0 Yes Take by [facility] us 5-05 mouth [place] (PROBIOTIC 14:46: daily. of ACIDOPHILUS 18 Medicin OR) e Calcium 2020-0 Yes Take by [facility] [place] Polycarboph 5-05 mouth 3 Colle ge il 14:46: times of (FIBER-CAPS 18 daily. Medici n OR) e BIOTIN 5000 2020-0 Yes Take by [facility] OR 5-05 mouth College 14:46: daily. of 18 Medicin e L-THEANINE 2020-0 Yes 200mg Take 200 [facility] [place] 5-05 mg by [facility] 14:46: mouth of 18 daily. Medicin e Ascorbic 2020-0 Yes Take by [facility] [place] Acid 5-05 mouth [place] (VITAMIN C) 14:46: daily. of 500 MG CAPS 18 Medicin e Spironolact 2020-0 2020- No 25mg Take 25 mg [facility] one-HCTZ 4-21 04-21 by mouth Colleg e 25-25 MG 14:14: 00:00 daily. of TABS 23 :00 Medicin e triamterene 2020-0 Yes 1{capsu Take 1 Cap [facility] [place] -hydrochlor 4-21 le} by mouth Shanel ege othiazide 14:13: every of (DYAZIDE) 06 morning. Medici n 37.5-25 MG e per capsule potassium 2020-0 Yes 10meq Take 10 [facility] chloride 4-21 mEq by [employer] (MICRO-K) 14:13: mouth of 10 MEQ 06 daily. Medicin capsule e levothyroxi 2020-0 Yes 125ug Take 125 B a[facility] ne 4-21 mcg by [place] (SYNTHROID) 14:13: mouth of 125 MCG 06 daily. Medicin tablet e gabapentin 2020-0 Yes 300mg Take 300 [facility] (NEURONTIN) 4-21 mg by [employer] 300 MG 14:13: mouth of capsule 06 daily. Medicin e atorvastati 2020-0 Yes 20mg Take 20 mg [facility] [place] n (LIPITOR) 4-21 by mouth Shanel ege 20 MG 14:13: daily. of tablet 06 Medicin e lamoTRIgine 2020-0 Yes 50mg Take 50 mg [facility] [place] 50 MG TBDP 4-21 by mouth Colle ge 14:13: two times of 06 daily. Medicin e hydrOXYzine 2020-0 Yes 25mg Take 25 mg [facility] (ATARAX) 25 4-21 by mouth Shanel ege MG tablet 14:13: two times of 06 daily. Medicin e baclofen 2020-0 Yes 10mg Take 10 mg [facility] (LIORESAL) 4-21 by mouth Colle ge 10 MG 14:13: two times of tablet 06 daily. Medicin e hydrocodone 2020-0 Yes 1{tbl} Take 1 Tab [facility] -acetaminop 4-21 by mouth 2 Co llege hen (NORCO) 14:13: times of 7.5-325 MG 06 daily as Medic in per tablet needed for e Pain. Multiple 2020-0 Yes Take by [facility] [place] Vitamins-Mi 11-07 [facility] [place] 14:13: daily. of (MULTIVITAM 06 Medicin IN ADULT e OR) B Complex 2020-0 Yes Take by [facility] r Vitamins (B 11-07 mouth [place] COMPLEX 1 14:13: daily. of OR) 06 Medicin e Calcium 2020-0 Yes Take by [facility] [place] Citrate-Vit 11-07 [facility] two Col lege oliver D 14:13: times of (CALCIUM 06 daily. Medicin CITRATE + D e OR) [place]-3 2020-0 Yes Take by [facility] [place] Fatty Acids 11-07 [facility] [place]FISH OIL) 14:13: daily. of 1200 MG 06 Medicin CAPS e Lactobacill 2020-0 Yes Take by [facility] us 11-07 [facility] [place] (PROBIOTIC 14:13: daily. of ACIDOPHILUS 06 Medicin OR) e Calcium 2020-0 Yes Take by [facility] [place] Polycarboph 11-07 [facility] 3 Colle ge il 14:13: times of (FIBER-CAPS 06 daily. Medici n OR) e BIOTIN 5000 2020-0 Yes Take by [facility] [place] 11-07 [facility] [place] [facility] [place] 14:13: daily. of 06 Medicin e L-THEANINE 2020-0 Yes 200mg Take 200 [facility] [place] 11-07 mg by [place] 14:13: mouth of 06 daily. Medicin e Ascorbic 2020-0 Yes Take by [facility] [place] Acid 11-07 [facility] [place] (VITAMIN C) 14:13: daily. of 500 MG CAPS 06 Medicin e Turmeric 2020-0 Yes Take by [facility] [place] Curcumin 11-07 [facility]. [place] 500 MG CAPS 14:13: of 06 Medicin e Gabapentin 2020-0 2020- No by [facility] [place] & 11-07 COMBINATIO [place] Lidocaine-M 14:13: 00:00 N route of enthol 06 :00 daily. Medicin (SMARTRX e JOEY CO) triamterene 2020-0 Yes 1{capsu Take 1 Cap [facility] [place] -hydrochlor 10-24 le} by mouth Shanel ege othiazide 17:37: every of (DYAZIDE) 31 morning. Medici n 37.5-25 MG e per capsule Spironolact 2020-0 Yes 25mg Take 25 mg [facility] [place] one-HCTZ 10-24 by mouth [place] 25-25 MG 17:37: daily. of TABS 31 Medicin e potassium 2020-0 Yes 10meq Take 10 [facility] chloride 4-07 mEq by [employer] (MICRO-K) 17:37: mouth of 10 MEQ 31 daily. Medicin capsule e levothyroxi 2020-0 Yes 125ug Take 125 [facility] ne 4-07 mcg by [employer] (SYNTHROID) 17:37: mouth of 125 MCG 31 daily. Medicin tablet e gabapentin 2020-0 Yes 300mg Take 300 [facility] (NEURONTIN) 4-07 mg by [facility] 300 MG 17:37: mouth of capsule 31 daily. Medicin e atorvastati 2020-0 Yes 20mg Take 20 mg [facility] n (LIPITOR) 4-07 by mouth Shanel ege 20 MG 17:37: daily. of tablet 31 Medicin e lamoTRIgine 2020-0 Yes 50mg Take 50 mg [facility] [place] 50 MG TBDP 4-07 by mouth Colle ge 17:37: two times of 31 daily. Medicin e hydrOXYzine 2020-0 Yes 25mg Take 25 mg [facility] (ATARAX) 25 4-07 by mouth Shanel ege MG tablet 17:37: two times of 31 daily. Medicin e baclofen 2020-0 Yes 10mg Take 10 mg [facility] (LIORESAL) 4-07 by mouth Colle ge 10 MG 17:37: two times of tablet 31 daily. Medicin e hydrocodone 2020-0 Yes 1{tbl} Take 1 Tab [facility] [place] -acetaminop 4-07 by mouth 2 Co llege hen (NORCO) 17:37: times of 7.5-325 MG 31 daily as Medic in per tablet needed for e Pain. Multiple 2020-0 Yes Take by [facility] [place] Vitamins-Mi 4-07 mouth [place] nerals 17:37: daily. of (MULTIVITAM 31 Medicin IN ADULT e OR) B Complex 2020-0 Yes Take by [facility] r Vitamins (B 4-07 mouth [place] COMPLEX 1 17:37: daily. of OR) 31 Medicin e Calcium 2020-0 Yes Take by [facility] [place] Citrate-Vit 4-07 mouth two Col lege oliver D 17:37: times of (CALCIUM 31 daily. Medicin CITRATE + D e OR) [place]-3 2020-0 Yes Take by [facility] [place] Fatty Acids 4-07 mouth [place] (FISH OIL) 17:37: daily. of 1200 MG 31 Medicin CAPS e Lactobacill 2020-0 Yes Take by [facility] us - mouth College (PROBIOTIC 17:37: daily. of ACIDOPHILUS 31 Medicin OR) e Calcium 2020-0 Yes Take by [facility] [place] Polycarboph - mouth 3 Colle ge il 17:37: times of (FIBER-CAPS 31 daily. Medici n OR) e BIOTIN 5000 2020-0 Yes Take by [facility] OR 4-07 mouth College 17:37: daily. of 31 Medicin e magnesium 2020-0 Yes 30mL Take 30 mL [facility] hydroxide - by mouth Colleg e (MILK OF 17:37: daily. of MAGNESIA) 31 Medicin suspension e L-THEANINE 2020-0 Yes 200mg Take 200 [facility] OR 4- mg by [facility] 17:37: mouth of 31 daily. Medicin e Ascorbic 2020-0 Yes Take by [facility] [place] Acid 10-24 [facility] [place] (VITAMIN C) 17:37: daily. of 500 MG CAPS 31 Medicin e Gabapentin 2020-0 Yes by [facility] [place] [facility] 17:37: N route of enthol 31 daily. Medicin (SMARTRX e JOEY CO) ondansetron 2020-0 2020- No [id number] 4mg Take 1 Tab [facility] (ZOFRAN) 4 10-24 05-08 by mouth Shanel ege MG tablet 00:00: 04:59 every 8 of 00 :00 hours as Medicin needed for e Nausea for up to 30 days. lidocaine-p 2020-0 2020- No [id number] 1{appli Apply 1 [facility] [place] rilocaine - 05-08 cation} [facility]) 00:00: 04:59 n of 2.5-2.5 % 00 :00 topically Medic in cream as needed e for Other (apply over PORT 30-60 minutes prior to treatment) for up to 30 days. ondansetron 2020-0 2020- No [id number] 4mg Take 1 Tab [facility] (ZOFRAN) 4 10-24 05-08 by mouth Shanel ege MG tablet 00:00: 04:59 every 8 of 00 :00 hours as Medicin needed for e Nausea for up to 30 days. lidocaine-p 2020-0 2020- No [id number] 1{appli Apply 1 [facility] [place] rilocaine 4-07 05-08 cation} [facility]) 00:00: 04:59 n of 2.5-2.5 % 00 :00 topically Medic in cream as needed e for Other (apply over PORT 30-60 minutes prior to treatment) for up to 30 days. ondansetron 2020-0 2020- No [id number] 4mg Take 1 Tab [facility] [place] (ZOFRAN) 4 10-24-08 by mouth Shanel ege MG tablet 00:00: 04:59 every 8 of 00 :00 hours as Medicin needed for e Nausea for up to 30 days. lidocaine-p 2020-0 2020- No [id number] 1{appli Apply 1 [facility] [place] rilocaine 10-24-08 cation} [facility]) 00:00: 04:59 n of 2.5-2.5 % 00 :00 topically Medic in cream as needed e for Other (apply over PORT 30-60 minutes prior to treatment) for up to 30 days. Acetaminoph 2020-0 Yes 1 tab, PO, Memoria en 325 MG / 4-01 Q6H, 0 l Hydrocodone 20:35: Refill(s) [facility] Bitartrate 00 5 MG Oral Tablet Acetaminoph 2020-0 Yes 1 tab, PO, Memoria en 325 MG / 4-01 Q6H, 0 l Hydrocodone 20:35: Refill(s) [facility] Bitartrate 00 5 MG Oral Tablet Calcium 2020-0 Yes Take by [facility] [place] Citrate-Vit 10-03 mouth two Col lege oliver D 20:44: times of (CALCIUM 44 daily. Medicin CITRATE + D e OR) [place]-3 2020-0 Yes Take by [facility] [place] Fatty Acids 10-03 [facility] [place] (FISH OIL) 20:44: daily. of 1200 MG 44 Medicin CAPS e Lactobacill 2020-0 Yes Take by [facility] us 10-03 mouth [place] (PROBIOTIC 20:44: daily. of ACIDOPHILUS 44 Medicin OR) e Calcium 2020-0 Yes Take by [facility] [place] Polycarboph 10-[address] [place] [address] ge il 20:44: times of (FIBER-CAPS 44 daily. Medici n OR) e BIOTIN 5000 2020-0 Yes Take by [facility] [place] 10-03 [facility] [place] 20:44: daily. of 44 Medicin e magnesium 2020-0 Yes 30mL Take 30 mL [facility] hydroxide 3-17 by mouth Colleg e (MILK OF 20:44: daily. of MAGNESIA) 44 Medicin suspension e L-THEANINE 2020-0 Yes 200mg Take 200 [facility] [place] 3-17 mg by [place] 20:44: mouth of 44 daily. Medicin e Ascorbic 2020-0 Yes Take by [facility] [place] Acid 3-17 [facility] [place] (VITAMIN C) 20:44: daily. of 500 MG CAPS 44 Medicin e Gabapentin 2020-0 Yes by [facility] [place] [facility] 20:44: N route of enthol 44 daily. Medicin (SMARTRX e JOEY CO) levothyroxi 2020-0 Yes 125ug Take 125 B aylor ne 3-17 mcg by [place] (SYNTHROID) 20:44: mouth of 125 MCG 43 daily. Medicin tablet e gabapentin 2020-0 Yes 300mg Take 300 Ba ylor (NEURONTIN) 3-17 mg by [place] 300 MG 20:44: mouth of capsule 43 daily. Medicin e atorvastati 2020-0 Yes 20mg Take 20 mg Herm[facility] n (LIPITOR) 3-17 by mouth Shanel ege 20 MG 20:44: daily. of tablet 43 Medicin e lamoTRIgine 2020-0 Yes 50mg Take 50 mg [facility] [place] 50 MG TBDP 3-17 by mouth Colle ge 20:44: two times of 43 daily. Medicin e hydrOXYzine 2020-0 Yes 25mg Take 25 mg [facility] (ATARAX) 25 3-17 by mouth Shanel ege MG tablet 20:44: two times of 43 daily. Medicin e baclofen 2020-0 Yes 10mg Take 10 mg [place] dayna (LIORESAL) 3-17 by mouth Colle ge 10 MG 20:44: two times of tablet 43 daily. Medicin e hydrocodone 2020-0 Yes 1{tbl} Take 1 Tab [facility] -acetaminop 3-17 by mouth 2 [employer] hen (NORCO) 20:44: times of 7.5-325 MG 43 daily as Medic in per tablet needed for e Pain. Multiple 2020-0 Yes Take by [facility] [place] Vitamins-Mi 3- [facility] [place] 20:44: daily. of (MULTIVITAM 43 Medicin IN ADULT e OR) B Complex 2020-0 Yes Take by [facility] (B 3- [facility] [place] [facility] [place]X 1 20:44: daily. of OR) 43 Medicin e triamterene 2020-0 Yes 1{capsu Take 1 Cap [facility] [place] -hydrochlor 3-17 le} by mouth Hsanel ege othiazide 20:31: every of (DYAZIDE) 15 morning. Medici n 37.5-25 MG e per capsule Spironolact 2020-0 Yes 25mg Take 25 mg [facility] one-HCTZ 3-17 by mouth [place] 25-25 MG 20:31: daily. of TABS 15 Medicin e potassium 2020-0 Yes 10meq Take 10 Bayl or chloride 3-17 mEq by [place] (MICRO-K) 20:31: mouth of 10 MEQ 15 daily. Medicin capsule e tramadol 2019-0 Yes 50 mg = 1 [place] marylu hydrochlori 2-27 tab, PO, l de 50 MG 22:15: Q12H, X 30 Her fleming Oral Tablet 00 day, # 60 tab, 1 Refill(s), Pharmacy: [facility] #[id number] tramadol 2019-0 Yes 50 mg = 1 [place] marylu hydrochlori 2-27 tab, PO, l de 50 MG 22:15: Q12H, X 30 Her [place] Oral Tablet 00 day, # 60 tab, 1 Refill(s), Pharmacy: [facility] #[id number] Ascorbic 2020-0 Yes 1{capsu Take 1 Cap [place] Acid 2-13 le} by mouth [place] (VITAMIN C) 00:00: daily. of 500 MG CAPS 00 Medicin e [place]-3 2020-0 Yes 1{tbl} Take 1 Tab Ba ylor Fatty Acids 2-13 by mouth Shanel ege (FISH OIL) 00:00: daily. of 1200 MG 00 Medicin CAPS e B 2020-0 Yes 1{capsu Take 1 Cap [place]l or Complex-C-F 2-13 le} by mouth Shanel ege olic Acid 00:00: daily. of (SUPER B 00 Medicin COMPLEX/FA/ e VIT C OR) Turmeric 2020-0 Yes DAILY [facility] [place] 500 MG CAPS 2-13 [place] 00:00: of 00 Medicin e Turmeric 2020-0 2020- No DAILY [facility] 500 MG CAPS 2-13 - [place] 00:00: 00:00 of 00 :00 Medicin e Ascorbic 2020-0 2020- No 1{capsu Take 1 Cap [facility] [place] Acid 2-13 11-19 le} by mouth [employer] (VITAMIN C) 00:00: 00:00 daily. of 500 MG CAPS 00 :00 Medicin e [place]-3 2020-0 2020- No 1{tbl} Take 1 Tab B aylor Fatty Acids 09-01 by mouth Col lege (FISH OIL) 00:00: 00:00 daily. of 1200 MG 00 :00 Medicin CAPS e B 2020-0 2020- No 1{capsu Take 1 Cap [place] dayna Complex-C-F 09-01 le} by mouth Col lege olic Acid 00:00: 00:00 daily. of (SUPER B 00 :00 Medicin COMPLEX/FA/ e VIT C OR) Magnesium 2020-0 2020- No DAILY [facility] Oxide 250 09-01 College MG TABS 00:00: 00:00 of 00 :00 Medicin e baclofen 10 2020-0 Yes 10 mg = 1 M emoria mg oral 2-11 tab, PO, l tablet 19:17: BID, # 60 Harish n 00 tab, 2 Refill(s), Pharmacy: [id number] baclofen 10 2020-0 Yes 10 mg = 1 M emoria mg oral 2-11 tab, PO, l tablet 19:17: BID, # 60 Harish n 00 tab, 2 Refill(s), Pharmacy: [facility] #[id number] duloxetine 2020-0 No PO, 0 Memori a 1-30 Refill(s) l 21:19: [place] 00 DULoxetine 2020-0 Yes 20 mg = 1 Me moria 20 mg oral 1-30 cap, PO, l delayed 21:19: Daily, 0 Harish n release 00 Refill(s) capsule duloxetine 2020-0 No PO, 0 Memori a 1-30 Refill(s) l 21:19: [place] 00 DULoxetine 2020-0 Yes 20 mg = 1 Me moria 20 mg oral 1-30 cap, PO, l delayed 21:19: Daily, 0 Harish n release 00 Refill(s) capsule duloxetine 2020-0 No See Memoria 1-30 Instructio l 21:02: ns, 50mg Aleksey 00 PO qd, 0 Refill(s) duloxetine 2020-0 No See Memoria 1-30 Instructio l 21:02: ns, 50mg [place] 00 PO qd, 0 Refill(s) Lorazepam 2018-07 No See Memoria 0.5 MG Oral 2-26 Instructio l Tablet 20:32: ns, Take 1 Bing nn [Ativan] 00 tab po 1 hour prior to MRI, may repeat q 15 min. if still anxious, # 5 tab, 0 Refill(s), called to pharmacy Lorazepam 2018-07 No See Memoria 0.5 MG Oral 2-26 Instructio l Tablet 20:32: ns, Take 1 Bing nn [Ativan] 00 tab po 1 hour prior to MRI, may repeat q 15 min. if still anxious, # 5 tab, 0 Refill(s), called to pharmacy clorazepate 2018-07 Yes 7.5 mg = 1 Memoria 7.5 mg oral 2-19 tab, PO, l tablet 20:55: TID, PRN [place] 00 Agitation, 0 Refill(s) clorazepate 2018-07 Yes 7.5 mg = 1 Memoria 7.5 mg oral 2-19 tab, PO, l tablet 20:55: TID, PRN [place] 00 Agitation, 0 Refill(s) Hydroxyzine 2018-07 Yes 25 mg = 1 M emoria Hydrochlori 2-19 tab, PO, l de 25 MG 20:55: QID, PRN Bing nn Oral Tablet 00 Itching, # 40 tab, 0 Refill(s) clonazePAM 2018-07 Yes See Memoria 0.5 mg oral 2-19 Instructio l tablet 20:55: ns, 2 tabs Bing nn 00 po qam, 1 tab at noon, 1 tab qhs, 0 Refill(s) Hydroxyzine 2018-07 Yes 25 mg = 1 M emoria Hydrochlori 2-19 tab, PO, l de 25 MG 20:55: QID, PRN Bing nn Oral Tablet 00 Itching, # 40 tab, 0 Refill(s) clonazePAM 2018-07 Yes See Memoria 0.5 mg oral 2-19 Instructio l tablet 20:55: ns, 2 tabs Bing nn 00 po qam, 1 tab at noon, 1 tab qhs, 0 Refill(s) gabapentin Yes 300 mg = 1 M emoria 300 MG Oral 8-15 cap, PO, l Capsule 21:14: Daily, # Harish n 00 30 cap, 6 Refill(s), Pharmacy: [facility] #[id number] gabapentin 2019-0 Yes 300 mg = 1 M emoria 300 MG Oral 8-15 cap, PO, l Capsule 21:14: Daily, # Harish n 00 30 cap, 6 Refill(s), Pharmacy: [facility] #[id number] Potassium 2019-0 Yes 10 mEq, Memor ia Chloride 5-31 PO, Daily, l 20:53: 0 [place] 00 Refill(s) Potassium 2019-0 Yes 10 mEq, Memor ia Chloride 5-31 PO, Daily, l 20:53: 0 [place] 00 Refill(s) 24 HR Yes See Memoria lamotrigine 1-11 Instructio l 50 MG 19:36: ns, 4 tab Aleksey Extended 00 PO Daily, Release 0 Tablet Refill(s) busPIRone 5 Yes 10 mg = 2 M emoria mg oral 1-11 tab, PO, l tablet 19:36: BID, # 90 Harish n 00 tab, 0 Refill(s) 24 HR Yes See Memoria lamotrigine 1-11 Instructio l 50 MG 19:36: ns, 4 tab [place] Extended 00 PO Daily, Release 0 Tablet Refill(s) busPIRone 5 Yes 10 mg = 2 M emoria mg oral 1-11 tab, PO, l tablet 19:36: BID, # 90 Harish n 00 tab, 0 Refill(s) gabapentin 2018- Yes 100 mg = 1 M emoria 100 MG Oral 1-11 cap, PO, l Capsule 19:35: Daily, 0 Harish n 00 Refill(s) gabapentin 2019- Yes 100 mg = 1 M emoria 100 MG Oral 1-11 cap, PO, l Capsule 19:35: Daily, 0 Harish n 00 Refill(s) Buspar 0 No PO, BID, 0 Memor ia 1-11 Refill(s) l 19:29: [place] 00 lamotrigine 2018-0 No 75 mg = 3 M emoria 25 MG Oral 1-11 tab, PO, l Tablet 19:29: BID, 0 Aleksey [Lamictal] 00 Refill(s) Buspar 2019-0 No PO, BID, 0 Memor ia 1-11 Refill(s) l 19:29: [place] 00 lamotrigine No 75 mg = 3 M emoria 25 MG Oral 1-11 tab, PO, l Tablet 19:29: BID, 0 Aleksey [Lamictal] 00 Refill(s) Lorazepam 2017-07 No See Memoria 0.5 MG Oral 2-20 Instructio l Tablet 16:57: ns, 1 tab Harish n [Ativan] 00 PO 1hour prior to mri, may repeat q15min if still anxious, # 5 tab, 0 Refill(s), called to pharmacy Lorazepam 2017-07 No See Memoria 0.5 MG Oral 2-20 Instructio l Tablet 16:57: ns, 1 tab Harish n [Ativan] 00 PO 1hour prior to mri, may repeat q15min if still anxious, # 5 tab, 0 Refill(s), called to pharmacy clonazePAM 2017-07 No 0.5 mg = 1 M emoria 0.5 mg oral 1-30 tab, PO, l tablet 19:26: QID, 0 [place] 00 Refill(s) gabapentin 2017-07 No 100 mg = 1 M emoria 100 MG Oral 1-30 cap, PO, l Capsule 19:26: Daily, 0 Harish n 00 Refill(s) clonazePAM 2017-07 No 0.5 mg = 1 M emoria 0.5 mg oral 1-30 tab, PO, l tablet 19:26: QID, 0 [place] 00 Refill(s) gabapentin 2017-07 No 100 mg = 1 M emoria 100 MG Oral 1-30 cap, PO, l Capsule 19:26: Daily, 0 Harish n 00 Refill(s) Gabapentin Gabapentin Yes [place] [address] [place] [facility] Clonazepam Clonazepam Yes [place] 1 tablet Common [place] at bedtime Spiri t [facility] Fiber Fiber Yes [place] as Common Formula Formula [place] directed S pirit [facility] Fish Oil Fish Oil Yes [place] [address] [facility] Gabapentin Gabapentin Yes [place] 1 capsule Common [place] Spirit [facility] Atorvastati Atorvastati Yes [place] 1 tablet Common n Calcium n Calcium Casi S pirit - [facility] Multivitami Multivitami Yes [place] as Common n n Casi directed Spirit - [facility] Magnesium Magnesium Yes [place] 1 tablet Common [place] with a Spirit meal - [facility] Turmeric Turmeric Yes [place] as Common Curcumin Curcumin [place] directed Spirit - [facility] Probiotic Probiotic Yes [place] as Comm on [place] directed Spirit - [facility] Potassium Potassium Yes [place] 1 tablet Common Bicarb-Citr Bicarb-Citr Casi Spirit ic Acid ic Acid - [facility] Levothyroxi Levothyroxi Yes [place] 1 tablet Common ne Sodium ne Sodium [place] on an Spirit empty - [facility] stomach in [facility] Super B Super B Yes [place] as Common Complex Complex [place] [facility] Immunizations Ordered Filled Immunization Date Status Comments Sour e Immunization Name Name Influenza Virus 2020-04-03 Completed [facility]:00[facility]00 [facility] Influenza Virus 2020-04-03 Completed [facility] Vaccine 00:00:00 [facility] Influenza Virus 2020-04-03 Completed [facility] Vaccine 00:00:00 [facility] Influenza Virus 2020-04-03 Completed [facility] Vaccine 00:00:00 [facility] Influenza Virus 2020-04-03 Completed [facility] of Vaccine 00:00:00 [facility] Influenza Virus 2020-04-03 Completed [facility] of Vaccine 00:00:00 [facility] Influenza Hd 2020-03-20 Completed [facility] [place] Colle ge of 00:00:00 Medicine Influenza 2020-03-20 Completed [facility] [place] Colle ge of 00:00:00 Medicine Influenza 2020-03-20 Completed [facility] [place] Colle ge of 00:00:00 Medicine Influenza 2020-03-20 Completed [facility] [place] Colle ge of 00:00:00 Medicine Influenza 2020-03-20 Completed [facility] [place] Colle ge of 00:00:00 Medicine Influenza 2020-03-20 Completed [facility] [place] Colle ge of 00:00:00 Medicine Influenza 2020-03-20 Completed [facility] [place] Colle ge of 00:00:00 Medicine Influenza 2020-03-20 Completed [facility] [place] Colle ge of 00:00:00 Medicine Influenza 2020-03-20 Completed [facility] [place] Colle ge of 00:00:00 Medicine Influenza Hd 2020-03-20 Completed [facility] [place] Colle ge of 00:00:00 Medicine Influenza Hd 2020-03-20 Completed [facility] Colle ge of 00:00:00 Medicine Influenza Hd 2020-03-20 Completed [facility] [place] Colle ge of 00:00:00 Medicine Influenza Hd 2020-03-20 Completed [facility] Colle ge of 00:00:00 Medicine Influenza Hd 2020-03-20 Completed [facility] [place] Colle ge of 00:00:00 Medicine Influenza Hd 2020-03-20 Completed [facility] Colle ge of 00:00:00 Medicine Vital Signs Vital Name Observation Time Observation Value Comments Source HEIGHT 2020-01-23 00:00:00 157.5 cm WEIGHT 2020-01-23 00:00:00 68.493 kg HEIGHT 2020-01-12 00:00:00 157.5 cm WEIGHT 2020-01-12 00:00:00 68.901 kg HEIGHT 2022-03-18 10:37:00 157.5 cm WEIGHT 2022-03-18 10:37:00 64.4 kg HEIGHT 2022-03-18 10:37:00 157.5 cm WEIGHT 2022-03-18 10:37:00 64.4 kg HEIGHT 2022-03-18 10:37:00 157.5 cm WEIGHT 2022-03-18 10:37:00 64.4 kg Systolic blood 2022-02-18 20:40:00 150 mm[Hg] [facility] of pressure Medicine Diastolic blood 2022-02-18 20:40:00 86 mm[Hg] [facility] Medicine Heart rate 2022-02-18 20:40:00 50 /min [facility] Body temperature 2022-02-18 20:40:00 36.56 Ilana [facility] Respiratory rate 2022-02-18 20:40:00 20 /min [facility] Body height 2022-02-18 20:40:00 157.5 cm [facility] Body weight 2022-02-18 20:40:00 66.679 kg [facility] BMI 2022-02-18 20:40:00 26.89 kg/m2 [facility] Systolic blood 2022-02-14 16:26:00 164 mm[Hg] [facility] pressure Medicine Diastolic blood 2022-02-14 16:26:00 84 mm[Hg] [facility] pressure Medicine Heart rate 2022-02-14 16:26:00 70 /min [facility] [place] [facility] of Medicine Body height 2022-02-14 16:26:00 157.5 cm [facility] ol[facility] of Medicine Body weight 2022-02-14 16:26:00 67.042 kg [facility] ol[facility] of Medicine BMI 2022-02-14 16:26:00 27.03 kg/m2 [facility] of Medicine Systolic blood 2021-11-15 15:37:00 129 mm[Hg] [facility] pressure Medicine Diastolic blood 2021-11-15 15:37:00 85 mm[Hg] [facility] pressure Medicine Heart rate 2021-11-15 15:37:00 61 /min [facility] of Medicine Body temperature 2021-11-15 15:37:00 36.72 Ilana [facility] Body height 2021-11-15 15:37:00 160 cm [facility] ollege of [facility] Body weight 2021-11-15 15:37:00 65.499 kg [facility]lege of [facility] BMI 2021-11-15 15:37:00 25.58 kg/m2 [facility] of Medicine Systolic blood 2021-09-17 21:03:00 147 mm[Hg] [facility] pressure Medicine Diastolic blood 2021-09-17 21:03:00 82 mm[Hg] [facility] pressure Medicine Heart rate 2021-09-17 21:03:00 56 /min [facility] of Medicine Systolic blood 2021-08-16 16:09:00 133 mm[Hg] [facility] pressure Medicine Diastolic blood 2021-08-16 16:09:00 78 mm[Hg] [facility] pressure Medicine Heart rate 2021-08-16 16:09:00 69 /min [facility] Medicine Body temperature 2021-08-16 16:09:00 36.67 Ilana [facility] Respiratory rate 2021-08-16 16:09:00 18 /min [facility] Body height 2021-08-16 16:09:00 160 cm [facility] [place] [facility] Medicine Body weight 2021-08-16 16:09:00 62.869 kg [facility] [place] [facility] Medicine BMI 2021-08-16 16:09:00 24.55 kg/m2 [facility] [place] [facility] of Medicine Systolic blood 2021-08-08 16:55:00 139 mm[Hg] [facility] of pressure Medicine Diastolic blood 2021-08-08 16:55:00 94 mm[Hg] [facility] pressure Medicine Heart rate 2021-08-08 16:55:00 57 /min [facility] Medicine Body temperature 2021-08-08 16:55:00 36.83 Ilana [facility] Body height 2021-08-08 16:55:00 160 cm [facility] [place] [facility] Medicine Body weight 2021-08-08 16:55:00 63.05 kg [facility] Medicine BMI 2021-08-08 16:55:00 24.62 kg/m2 [facility] Medicine Systolic blood 2021-05-07 19:35:00 145 mm[Hg] [facility] pressure Medicine Diastolic blood 2021-05-07 19:35:00 83 mm[Hg] [facility] pressure Medicine Heart rate 2021-05-07 19:35:00 86 /min [facility] Medicine Body temperature 2021-05-07 19:35:00 36.78 Ilana [facility] Body height 2021-05-07 19:35:00 160 cm [facility] [place] [facility] Medicine Body weight 2021-05-07 19:35:00 61.236 kg [facility] [place] [facility] Medicine BMI 2021-05-07 19:35:00 23.91 kg/m2 [facility] of Medicine Systolic blood 2021-01-29 17:28:00 122 mm[Hg] [facility] pressure Medicine Diastolic blood 2021-01-29 17:28:00 78 mm[Hg] [facility] pressure Medicine Heart rate 2021-01-29 17:28:00 78 /min [facility] [place] [facility] Medicine Body temperature 2021-01-29 17:28:00 36.11 Ilana [facility] Body height 2021-01-29 17:28:00 157.5 cm [facility] [place] [facility] Medicine Body weight 2021-01-29 17:28:00 64.32 kg [facility] [place] [facility] Medicine BMI 2021-01-29 17:28:00 25.94 kg/m2 [facility] of Medicine Systolic blood 2021-01-29 18:24:00 110 mm[Hg] [facility] pressure Medicine Diastolic blood 2021-01-29 18:24:00 77 mm[Hg] [facility] pressure Medicine Heart rate 2021-01-29 18:24:00 58 /min [facility] Medicine Body height 2021-01-29 18:24:00 160 cm [facility] [place] [facility] Medicine Body weight 2021-01-29 18:24:00 63.957 kg [facility] Medicine BMI 2021-01-29 18:24:00 24.98 kg/m2 [facility] of Medicine Systolic blood 2020-12-18 20:25:00 142 mm[Hg] [facility] pressure Medicine Diastolic blood 2020-12-18 20:25:00 95 mm[Hg] [facility] pressure Medicine Heart rate 2020-12-18 20:25:00 78 /min [facility] [place] [facility] Medicine Body height 2020-12-18 20:25:00 157.5 cm [facility] of Medicine Body weight 2020-12-18 20:25:00 62.143 kg [facility] Medicine BMI 2020-12-18 20:25:00 25.06 kg/m2 [facility] Medicine Systolic blood 2020-11-15 16:09:00 131 mm[Hg] [facility] pressure Medicine Diastolic blood 2020-11-15 16:09:00 89 mm[Hg] [facility] pressure Medicine Heart rate 2020-11-15 16:09:00 64 /min [facility] [place] [facility] Medicine Body height 2020-11-15 16:09:00 157.5 cm [facility] [place] [facility] Medicine Body weight 2020-11-15 16:09:00 62.143 kg [facility] Medicine BMI 2020-11-15 16:09:00 25.06 kg/m2 [facility] Medicine Systolic blood 2020-10-26 16:41:00 139 mm[Hg] [facility] pressure Medicine Diastolic blood 2020-10-26 16:41:00 82 mm[Hg] [facility] Medicine Heart rate 2020-10-26 16:41:00 54 /min [facility] Medicine Body temperature 2020-10-26 16:41:00 36.44 Ilana [facility] Respiratory rate 2020-10-26 16:41:00 20 /min [facility] Body height 2020-10-26 16:41:00 157.5 cm [facility] Medicine Body weight 2020-10-26 16:41:00 62.415 kg [facility] Medicine BMI 2020-10-26 16:41:00 25.17 kg/m2 [facility] Medicine Systolic blood 2020-09-07 21:00:00 139 mm[Hg] [facility] pressure Medicine Diastolic blood 2020-09-07 21:00:00 82 mm[Hg] [facility] Medicine Heart rate 2020-09-07 21:00:00 62 /min [facility] Medicine Body height 2020-09-07 21:00:00 157.5 cm [facility] Medicine Body weight 2020-09-07 21:00:00 59.875 kg [facility] Medicine BMI 2020-09-07 21:00:00 24.14 kg/m2 [facility] Medicine Systolic blood 2020-08-02 16:01:00 122 mm[Hg] [facility] pressure Medicine Diastolic blood 2020-08-02 16:01:00 80 mm[Hg] [facility] pressure Medicine Heart rate 2020-08-02 16:01:00 82 /min [facility] Medicine Body height 2020-08-02 16:01:00 157.5 cm [facility] Medicine Body weight 2020-08-02 16:01:00 60.328 kg [facility] [place] [facility] Medicine BMI 2020-08-02 16:01:00 24.33 kg/m2 [facility] Medicine Systolic blood 2020-07-27 17:29:00 157 mm[Hg] [facility] Medicine Diastolic blood 2020-07-27 17:29:00 97 mm[Hg] [facility] Medicine Heart rate 2020-07-27 17:29:00 66 /min [facility] Medicine Body temperature 2020-07-27 17:29:00 36.72 Ilana [facility] Body height 2020-07-27 17:29:00 157.5 cm [facility] Medicine Body weight 2020-07-27 17:29:00 59.33 kg [facility] Medicine BMI 2020-07-27 17:29:00 23.92 kg/m2 [facility] Medicine Systolic blood 2020-06-07 14:20:00 147 mm[Hg] [facility] Medicine Diastolic blood 2020-06-07 14:20:00 96 mm[Hg] [facility] Medicine Heart rate 2020-06-07 14:20:00 93 /min [facility] Medicine Body height 2020-06-07 14:20:00 157.5 cm [facility] Medicine Body weight 2020-06-07 14:20:00 67.132 kg [facility] [place] [facility] Medicine BMI 2020-06-07 14:20:00 27.07 kg/m2 [facility] of Medicine Systolic blood 2020-06-07 14:20:00 147 mm[Hg] [facility] Medicine Diastolic blood 2020-06-07 14:20:00 96 mm[Hg] [facility] Medicine Heart rate 2020-06-07 14:20:00 93 /min [facility] [place] [facility] Body height 2020-06-07 14:20:00 157.5 cm [facility] [place] [facility] Body weight 2020-06-07 14:20:00 67.132 kg [facility] [place] [facility] BMI 2020-06-07 14:20:00 27.07 kg/m2 [facility] [place] [facility] Medicine Systolic blood 2020-05-15 19:46:00 160 mm[Hg] [facility] pressure Medicine Diastolic blood 2020-05-15 19:46:00 84 mm[Hg] [facility] of pressure Medicine Heart rate 2020-05-15 19:46:00 78 /min [facility] [place] [facility] Medicine Body temperature 2020-05-15 19:46:00 36.83 Ilana [facility] Systolic blood 2020-05-15 19:46:00 160 mm[Hg] [facility] of pressure Medicine Diastolic blood 2020-05-15 19:46:00 84 mm[Hg] [facility] of pressure Medicine Heart rate 2020-05-15 19:46:00 78 /min [facility] [place] [facility] Body temperature 2020-05-15 19:46:00 36.83 Ilana [facility] Systolic blood 2020-04-27 19:35:00 143 mm[Hg] [facility] of pressure Medicine Diastolic blood 2020-04-27 19:35:00 83 mm[Hg] [facility] of pressure Medicine Heart rate 2020-04-27 19:35:00 60 /min [facility] [place] [facility] Body temperature 2020-04-27 19:35:00 36.78 Ilana [facility] Body height 2020-04-27 19:35:00 157.5 cm [facility] [place] [facility] Medicine Body weight 2020-04-27 19:35:00 70.035 kg [facility] [place] [facility] BMI 2020-04-27 19:35:00 28.24 kg/m2 [facility] [place] [facility] Systolic blood 2020-04-27 19:35:00 143 mm[Hg] [facility] Medicine Diastolic blood 2020-04-27 19:35:00 83 mm[Hg] [facility] pressure Medicine Heart rate 2020-04-27 19:35:00 60 /min [facility] [place] [facility] Body temperature 2020-04-27 19:35:00 36.78 Ilana [facility] Body height 2020-04-27 19:35:00 157.5 cm [facility] [place] [facility] Body weight 2020-04-27 19:35:00 70.035 kg [facility] [place] [facility] BMI 2020-04-27 19:35:00 28.24 kg/m2 [facility] [place] [facility] Systolic blood 2020-02-28 16:22:00 134 mm[Hg] [facility] pressure Medicine Diastolic blood 2020-02-28 16:22:00 78 mm[Hg] [facility] pressure Medicine Heart rate 2020-02-28 16:22:00 63 /min [facility] Body temperature 2020-02-28 16:22:00 36.83 Ilana [facility] Body height 2020-02-28 16:22:00 157.5 cm [facility] Body weight 2020-02-28 16:22:00 73.573 kg [facility] BMI 2020-02-28 16:22:00 29.67 kg/m2 [facility] Systolic blood 2020-02-28 16:22:00 134 mm[Hg] [facility] pressure Medicine Diastolic blood 2020-02-28 16:22:00 78 mm[Hg] [facility] Medicine Heart rate 2020-02-28 16:22:00 63 /min [facility] Body temperature 2020-02-28 16:22:00 36.83 Ilana [facility] Body height 2020-02-28 16:22:00 157.5 cm [facility] Body weight 2020-02-28 16:22:00 73.573 kg [facility] BMI 2020-02-28 16:22:00 29.67 kg/m2 [facility] HEIGHT 2020-01-23 00:00:00 157.5 cm WEIGHT 2020-01-23 00:00:00 68.493 kg HEIGHT 2020-01-12 00:00:00 157.5 cm WEIGHT 2020-01-12 00:00:00 68.901 kg Systolic blood 2020-01-17 13:44:00 124 mm[Hg] [facility] pressure Medicine Diastolic blood 2020-01-17 13:44:00 78 mm[Hg] [facility] pressure Medicine Heart rate 2020-01-17 13:44:00 71 /min [facility] Body temperature 2020-01-17 13:44:00 36.56 Ilana [facility] Body height 2020-01-17 13:44:00 157.5 cm [facility] [place] [facility] Body weight 2020-01-17 13:44:00 70.308 kg [facility] [place] [facility] BMI 2020-01-17 13:44:00 28.35 kg/m2 [facility] [place] [facility] Systolic blood 2020-01-17 13:44:00 124 mm[Hg] [facility] pressure Medicine Diastolic blood 2020-01-17 13:44:00 78 mm[Hg] [facility] pressure Medicine Heart rate 2020-01-17 13:44:00 71 /min [facility] [place] [facility] Body temperature 2020-01-17 13:44:00 36.56 Ilana [facility] Body height 2020-01-17 13:44:00 157.5 cm [facility] [place] [facility] Body weight 2020-01-17 13:44:00 70.308 kg [facility] [place] [facility] BMI 2020-01-17 13:44:00 28.35 kg/m2 [facility] [place] [facility] Systolic blood 2020-01-10 13:38:00 126 mm[Hg] [facility] pressure Medicine Diastolic blood 2020-01-10 13:38:00 78 mm[Hg] [facility] pressure Medicine Heart rate 2020-01-10 13:38:00 79 /min [facility] [place] [facility] Body temperature 2020-01-10 13:38:00 36.61 Ilana [facility] Body height 2020-01-10 13:38:00 157.5 cm [facility] [place] [facility] Body weight 2020-01-10 13:38:00 70.58 kg [facility] [place] [facility] BMI 2020-01-10 13:38:00 28.46 kg/m2 [facility] [place] [facility] Systolic blood 2020-01-10 13:38:00 126 mm[Hg] [facility] pressure Medicine Diastolic blood 2020-01-10 13:38:00 78 mm[Hg] [facility] pressure Medicine Heart rate 2020-01-10 13:38:00 79 /min [facility] Body temperature 2020-01-10 13:38:00 36.61 Ilana [facility] Body height 2020-01-10 13:38:00 157.5 cm [facility] Body weight 2020-01-10 13:38:00 70.58 kg [facility] BMI 2020-01-10 13:38:00 28.46 kg/m2 [facility] Systolic blood 2020-01-06 18:05:00 146 mm[Hg] [facility] pressure Medicine Diastolic blood 2020-01-06 18:05:00 91 mm[Hg] [facility] pressure Medicine Heart rate 2020-01-06 18:05:00 68 /min [facility] Body temperature 2020-01-06 18:05:00 36.78 Ilana [facility] Body height 2020-01-06 18:05:00 157.5 cm [facility] [place] [facility] Body weight 2020-01-06 18:05:00 71.668 kg [facility] BMI 2020-01-06 18:05:00 28.90 kg/m2 [facility] Systolic blood 2020-01-06 18:05:00 146 mm[Hg] [facility] pressure Medicine Diastolic blood 2020-01-06 18:05:00 91 mm[Hg] [facility] pressure Medicine Heart rate 2020-01-06 18:05:00 68 /min [facility] Body temperature 2020-01-06 18:05:00 36.78 Ilana [facility] Body height 2020-01-06 18:05:00 157.5 cm [facility] Body weight 2020-01-06 18:05:00 71.668 kg [facility] [place] [facility] BMI 2020-01-06 18:05:00 28.90 kg/m2 [facility] Body height 2019-12-14 14:05:00 157.5 cm [facility] Body weight 2019-12-14 14:05:00 70.308 kg [facility] BMI 2019-12-14 14:05:00 28.35 kg/m2 [facility] [place] [facility] Body height 2019-12-14 14:05:00 157.5 cm [facility] Body weight 2019-12-14 14:05:00 70.308 kg [facility] [place] [facility] BMI 2019-12-14 14:05:00 28.35 kg/m2 [facility] [place] [facility] Systolic blood 2019-12-13 15:31:00 143 mm[Hg] [facility] pressure Medicine Diastolic blood 2019-12-13 15:31:00 91 mm[Hg] [facility] pressure Medicine Heart rate 2019-12-13 15:31:00 80 /min [facility] [place] [facility] Respiratory rate 2019-12-13 15:31:00 16 /min [facility] Body height 2019-12-13 15:31:00 157.5 cm [facility] Body weight 2019-12-13 15:31:00 70.761 kg [facility] BMI 2019-12-13 15:31:00 28.53 kg/m2 [facility] Oxygen saturation in 2019-12-13 15:31:00 98 /min [facility] of Arterial blood by Medicine Pulse oximetry Systolic blood 2019-12-13 15:31:00 143 mm[Hg] [facility] pressure Medicine Diastolic blood 2019-12-13 15:31:00 91 mm[Hg] [facility] Medicine Heart rate 2019-12-13 15:31:00 80 /min [facility] Respiratory rate 2019-12-13 15:31:00 16 /min [facility] Body height 2019-12-13 15:31:00 157.5 cm [facility] Body weight 2019-12-13 15:31:00 70.761 kg [facility] BMI 2019-12-13 15:31:00 28.53 kg/m2 [facility] Oxygen saturation in 2019-12-13 15:31:00 98 /min [facility] Arterial blood by Medicine Pulse oximetry Systolic blood 2019-12-06 14:09:00 152 mm[Hg] [facility] pressure Medicine Diastolic blood 2019-12-06 14:09:00 82 mm[Hg] [facility] pressure Medicine Heart rate 2019-12-06 14:09:00 64 /min [facility] [place] [facility] Body temperature 2019-12-06 14:09:00 36.5 Ilana [facility] Body height 2019-12-06 14:09:00 157.5 cm [facility] [place] [facility] Body weight 2019-12-06 14:09:00 71.94 kg [facility] [place] [facility] BMI 2019-12-06 14:09:00 29.01 kg/m2 [facility] [place] [facility] Systolic blood 2019-12-06 14:09:00 152 mm[Hg] [facility] pressure Medicine Diastolic blood 2019-12-06 14:09:00 82 mm[Hg] [facility] pressure Medicine Heart rate 2019-12-06 14:09:00 64 /min [facility] [place] [facility] Body temperature 2019-12-06 14:09:00 36.5 Ilana [facility] Body height 2019-12-06 14:09:00 157.5 cm [facility] [place] [facility] Body weight 2019-12-06 14:09:00 71.94 kg [facility] BMI 2019-12-06 14:09:00 29.01 kg/m2 [facility] [place] [facility] Systolic blood 2019-11-22 14:39:00 137 mm[Hg] [facility] pressure Medicine Diastolic blood 2019-11-22 14:39:00 70 mm[Hg] [facility] pressure Medicine Heart rate 2019-11-22 14:39:00 55 /min [facility] [place] [facility] Body temperature 2019-11-22 14:39:00 36.61 Ilana [facility] Body height 2019-11-22 14:39:00 157.5 cm [facility] [place] [facility] Body weight 2019-11-22 14:39:00 71.124 kg [facility] [place] [facility] BMI 2019-11-22 14:39:00 28.68 kg/m2 [facility] [place] [facility] Systolic blood 2019-11-22 14:39:00 137 mm[Hg] [facility] pressure Medicine Diastolic blood 2019-11-22 14:39:00 70 mm[Hg] [facility] pressure Medicine Heart rate 2019-11-22 14:39:00 55 /min [facility] Body temperature 2019-11-22 14:39:00 36.61 Ilana [facility] Body height 2019-11-22 14:39:00 157.5 cm [facility] [place] [facility] Body weight 2019-11-22 14:39:00 71.124 kg [facility] [place] [facility] BMI 2019-11-22 14:39:00 28.68 kg/m2 [facility] [place] [facility] Systolic blood 2019-11-08 14:07:00 144 mm[Hg] [facility] pressure Medicine Diastolic blood 2019-11-08 14:07:00 85 mm[Hg] [facility] Medicine Heart rate 2019-11-08 14:07:00 58 /min [facility] [place] [facility] Body temperature 2019-11-08 14:07:00 36.44 Ilana [facility] Body height 2019-11-08 14:07:00 157.5 cm [facility] [place] [facility] Body weight 2019-11-08 14:07:00 71.578 kg [facility] BMI 2019-11-08 14:07:00 28.86 kg/m2 [facility] Systolic blood 2019-11-08 14:07:00 144 mm[Hg] [facility] Medicine Diastolic blood 2019-11-08 14:07:00 85 mm[Hg] [facility] Medicine Heart rate 2019-11-08 14:07:00 58 /min [facility] Body temperature 2019-11-08 14:07:00 36.44 Ilana [facility] Body height 2019-11-08 14:07:00 157.5 cm [facility] [place] [facility] Body weight 2019-11-08 14:07:00 71.578 kg [facility] [place] [facility] BMI 2019-11-08 14:07:00 28.86 kg/m2 [facility] [place] [facility] Body weight 2019-10-25 17:38:00 70.171 kg [facility] [place] [facility] BMI 2019-10-25 17:38:00 28.30 kg/m2 [facility] [place] [facility] Systolic blood 2019-10-25 17:38:00 154 mm[Hg] [facility] pressure Medicine Diastolic blood 2019-10-25 17:38:00 86 mm[Hg] [facility] pressure Medicine Heart rate 2019-10-25 17:38:00 52 /min [facility] Body temperature 2019-10-25 17:38:00 36.56 Ilana [facility] Respiratory rate 2019-10-25 17:38:00 18 /min [facility] Body height 2019-10-25 17:38:00 157.5 cm [facility] Body weight 2019-10-25 17:38:00 70.171 kg [facility] BMI 2019-10-25 17:38:00 28.30 kg/m2 [facility] Systolic blood 2019-10-25 17:38:00 154 mm[Hg] [facility] pressure Medicine Diastolic blood 2019-10-25 17:38:00 86 mm[Hg] [facility] pressure Medicine Heart rate 2019-10-25 17:38:00 52 /min [facility] Body temperature 2019-10-25 17:38:00 36.56 Ilana [facility] Respiratory rate 2019-10-25 17:38:00 18 /min [facility] Body height 2019-10-25 17:38:00 [facility] Systolic blood 2019-10-04 20:10:00 142 mm[Hg] [facility] pressure Medicine Diastolic blood 2019-10-04 20:10:00 89 mm[Hg] [facility] Medicine Heart rate 2019-10-04 20:10:00 58 /min [facility] Body temperature 2019-10-04 20:10:00 36.56 Ilana [facility] Respiratory rate 2019-10-04 20:10:00 18 /min [facility] Body height 2019-10-04 20:10:00 160 cm [facility] Body weight 2019-10-04 20:10:00 71.668 kg [facility] BMI 2019-10-04 20:10:00 27.99 kg/m2 [facility] Systolic blood 2019-10-04 20:10:00 142 mm[Hg] [facility] pressure Medicine Diastolic blood 2019-10-04 20:10:00 89 mm[Hg] [facility] Heart rate 2019-10-04 20:10:00 58 /min [facility] Body temperature 2019-10-04 20:10:00 36.56 Ilana [facility] Respiratory rate 2019-10-04 20:10:00 18 /min [facility] Body height 2019-10-04 20:10:00 160 cm [facility] Body weight 2019-10-04 20:10:00 71.668 kg [facility] BMI 2019-10-04 20:10:00 27.99 kg/m2 [facility] Systolic blood 2022-03-18 15:00:00 134 mm[Hg] [facility] Diastolic blood 2022-03-18 15:00:00 73 mm[Hg] [facility] Heart rate 2022-03-18 15:00:00 57 /min [facility] Respiratory rate 2022-03-18 15:00:00 12 /min [facility] Oxygen saturation in 2022-03-18 15:00:00 98 /min [facility] Arterial blood by Medical Ce nter Pulse oximetry Body temperature 2022-03-18 10:37:00 36.17 Ilana [facility] Body height 2022-03-18 10:37:00 157.5 cm [facility] Body weight 2022-03-18 10:37:00 64.4 kg [facility] BMI 2022-03-18 10:37:00 25.97 kg/m2 [facility] Systolic (mm Hg) 2021-05-23 15:05:00 Mayco Ryder Diastolic (mm Hg) 2021-05-23 15:05:00 Edelmira Ryder Heart Rate 2021-05-23 15:05:00 [facility] Rate 2021-05-23 15:05:00 Harrison Judd Height 2021-05-23 15:05:00 157.48 [facility] 2021-05-23 15:05[facility]00 [facility] BMI Calculated 2021-05-23 15:05:00 [facility] Diastolic (mm Hg) 2021-03-13 19:55:00 [facility] [place] Heart Rate 2021-03-13 19:55:00 [facility] Respitory Rate 2021-03-13 19:55:00 [facility] [place] Height 2021-03-13 19:55:00 157.48 cm [facility] Weight 2021-03-13 19:55:00 [facility] [place] BMI Calculated 2021-03-13 19:55:00 [facility] [place] Systolic (mm Hg) 2021-03-13 19:55:00 [facility]co [facility] [place] Systolic (mm Hg) 2021-02-01 16:23:00 [facility] [place] Diastolic (mm Hg) 2021-02-01 16:23:00 [facility] [place] Heart Rate 2021-02-01 16:23:00 [facility] Respitory Rate 2021-02-01 16:23:00 [facility] [place] Systolic (mm Hg) 2021-01-09 14:27:00 [facility] Diastolic (mm Hg) 2021-01-09 14:27:00 [facility] [place] Heart Rate 2021-01-09 14:27:00 [facility] [place] Respitory Rate 2021-01-09 14:27:00 [facility] Height 2021-01-09 14:27:00 157.48 cm [facility] Weight 2021-01-09 14:27:00 [facility] [place] BMI Calculated 2021-01-09 14:27:00 [facility] Systolic (mm Hg) 2020-11-06 19:09:00 [facility] [place] Diastolic (mm Hg) 2020-11-06 19:09:00 [facility] Heart Rate 2020-11-06 19:09:00 [facility] Respitory Rate 2020-11-06 19:09:00 [facility] [place] Weight 2020-11-06 19:09:00 [facility] [place] Systolic (mm Hg) 2020-09-05 19:20:00 [facility] Diastolic (mm Hg) 2020-09-05 19:20:00 [facility] Heart Rate 2020-09-05 19:20:00 [facility] Respitory Rate 2020-09-05 19:20:00 [facility] Height 2020-09-05 19:20:00 160.02 cm [facility] Weight 2020-09-05 19:20:00 [facility] [place] BMI Calculated 2020-09-05 19:20:00 [facility] Systolic (mm Hg) 2020-07-25 17:04:00 [facility] [place] Diastolic (mm Hg) 2020-07-25 17:04:00 [facility] [place] Heart Rate 2020-07-25 17:04:00 [facility] [place] Respitory Rate 2020-07-25 17:04:00 [facility] [place] Height 2020-07-25 17:04:00 157.48 cm [facility] Weight 2020-07-25 17:04:00 [facility] [place] BMI Calculated 2020-07-25 17:04:00 [facility] [place] Weight 2020-06-21 19:55:00 [facility] [place] BMI Calculated 2020-06-21 19:55:00 [facility] [place] Systolic (mm Hg) 2020-06-21 19:55:00 [facility] [place] Diastolic (mm Hg) 2020-06-21 19:55:00 [facility] [place] Heart Rate 2020-06-21 19:55:00 [facility] Respitory Rate 2020-06-21 19:55:00 [facility] [place] Height 2020-06-21 19:55:00 157.48 cm [facility] Systolic (mm Hg) 2020-05-10 19:02:00 [facility] Diastolic (mm Hg) 2020-05-10 19:02:00 [facility] [place] Heart Rate 2020-05-10 19:02:00 [facility] [place] Respitory Rate 2020-05-10 19:02:00 [facility] Height 2020-05-10 19:02:00 157.48 cm [facility] [place] Weight 2020-05-10 19:02:00 [facility] BMI Calculated 2020-05-10 19:02:00 [facility] Systolic blood 2020-01-06 18:05:00 146 mm[Hg] [facility] pressure Medicine Diastolic blood 2020-01-06 18:05:00 91 mm[Hg] [facility] pressure Medicine Heart rate 2020-01-06 18:05:00 68 /min [facility] Body temperature 2020-01-06 18:05:00 36.78 Ilana [facility] Body height 2020-01-06 18:05:00 157.5 cm [facility] Body weight 2020-01-06 18:05:00 71.668 kg [facility] BMI 2020-01-06 18:05:00 28.90 kg/m2 [facility] Respiratory rate 2020-01-04 15:16:00 16 /min [facility] Oxygen saturation in 2019-12-13 15:31:00 98 /min [facility] blood by [facility] Pulse oximetry Systolic (mm Hg) 2019-09-15 21:38:00 [facility] Diastolic (mm Hg) 2019-09-15 21:38:00 [facility] [place] Heart Rate 2019-09-15 21:38:00 [facility] Respitory Rate 2019-09-15 21:38:00 [facility] Height 2019-09-15 21:38:00 157.48 cm [facility] [place] Weight 2019-09-15 21:38:00 [facility] BMI Calculated 2019-09-15 21:38:00 [facility] [place] Systolic (mm Hg) 2019-08-18 20:52:00 [facility] [place] Diastolic (mm Hg) 2019-08-18 20:52:00 [facility] [place] Heart Rate 2019-08-18 20:52:00 [facility] [place] Respitory Rate 2019-08-18 20:52:00 [facility] Height 2019-08-18 20:52:00 162.56 cm [facility] Weight 2019-08-18 20:52:00 [facility] [place] BMI Calculated 2019-08-18 20:52:00 [facility] Systolic (mm Hg) 2019-07-22 15:23:00 [facility] [place] Diastolic (mm Hg) 2019-07-22 15:23:00 [facility] [place] Heart Rate 2019-07-22 15:23:00 [facility] Respitory Rate 2019-07-22 15:23:00 [facility] [place] Height 2019-07-22 15:23:00 157.48 cm [facility] Weight 2019-07-22 15:23:00 [facility] [place] BMI Calculated 2019-07-22 15:23:00 [facility] Systolic (mm Hg) 2019-07-07 20:51:00 [facility] Diastolic (mm Hg) 2019-07-07 20:51:00 [facility] Heart Rate 2019-07-07 20:51:00 [facility] [place] Respitory Rate 2019-07-07 20:51:00 [facility] Height 2019-07-07 20:51:00 157.48 cm [facility] Weight 2019-07-07 20:51:00 [facility] BMI Calculated 2019-07-07 20:51:00 [facility] Systolic (mm Hg) 2019-03-03 20:11:00 [facility] [place] Diastolic (mm Hg) 2019-03-03 20:11:00 [facility] [place] Heart Rate 2019-03-03 20:11:00 [facility] Respitory Rate 2019-03-03 20:11:00 [facility] [place] Height 2019-03-03 20:11:00 157.48 cm [facility] [place] Weight 2019-03-03 20:11:00 [facility] [place] BMI Calculated 2019-03-03 20:11:00 [facility] [place] Height 2019-02-02 19:56:00 160.02 cm [facility] Weight 2019-02-02 19:56:00 [facility] [place] BMI Calculated 2019-02-02 19:56:00 [facility] [place] Systolic (mm Hg) 2019-02-02 19:56:00 [facility] Diastolic (mm Hg) 2019-02-02 19:56:00 [facility] Respitory Rate 2019-02-02 19:56:00 [facility] Heart Rate 2019-02-02 19:56:00 [facility] [place] Height 2018-12-17 20:37:00 160.02 cm [facility] BMI Calculated 2018-12-17 20:37:00 [facility] [place] Weight 2018-12-17 20:37:00 [facility] Systolic (mm Hg) 2018-12-17 20:37:00 [facility] Diastolic (mm Hg) 2018-12-17 20:37:00 [facility] [place] Heart Rate 2018-12-17 20:37:00 [facility] Respitory Rate 2018-12-17 20:37:00 [facility] Height 2018-07-30 19:12:00 160.02 cm [facility] BMI Calculated 2018-07-30 19:12:00 [facility] Weight 2018-07-30 19:12:00 [facility] Systolic (mm Hg) 2018-07-30 19:12:00 [facility] [place] Diastolic (mm Hg) 2018-07-30 19:12:00 [facility] Respitory Rate 2018-07-30 19:12:00 [facility] Heart Rate 2018-07-30 19:12:00 [facility] BMI Calculated 2018-06-18 19:08:00 [facility] Height 2018-06-18 19:08:00 157.48 cm [facility] [place] Weight 2018-06-18 19:08:00 [facility] Systolic (mm Hg) 2018-06-18 19:08:00 [facility] Diastolic (mm Hg) 2018-06-18 19:08:00 [facility] [place] Heart Rate 2018-06-18 19:08:00 [facility] Respitory Rate 2018-06-18 19:08:00 [facility] [place] Procedures Procedure Date / Time Performing Clinician Source Performed IR CV ACCESS FLUORO 2022-03-18 15:21:00 Bird Yen [facility] POCT-GLUCOSE METER 2022-03-18 11:39:00 Bird Yen janine [facility] CBC W/PLT COUNT & AUTO 2022-03-18 11:37:00 Bird Yen CH, I [facility] PROTHROMBIN TIME/INR 2022-03-18 11:37:00 Bird Yen [facility] CBC W/PLT COUNT & AUTO 2022-03-18 11:37:00 Bird Yen CH I [facility] CBC W/AUTO DIFF WITH 2022-02-17 12:14:34 [facility] Medicine COMPREHENSIVE METABOLIC 2022-02-17 12:14:34 [facility] Medicine MAGNESIUM 2022-02-17 12:14:34 [facility] VITAMIN B12 2022-02-17 12:14:34 [facility] TSH + FREE T4 PROFILE 2022-02-14 13:28:53 [facility] COMPREHENSIVE METABOLIC 2022-02-13 18:04:00 Omar Yen [facility] PANEL Medicine VITAMIN B12 2022-02-13 18:04:00 Omar Yen [facility] MAGNESIUM 2022-02-13 18:04:00 Omar Yen [facility] CBC W/AUTO DIFF WITH 2022-02-13 18:04:00 Omar Yen [facility] PLATELETS [facility] TSH + FREE T4 PROFILE 2022-02-13 18:04:00 Omar Yen [facility] CBC W/AUTO DIFF WITH 2022-02-13 13:04:00 [facility] PLATELETS [facility] COMPREHENSIVE METABOLIC 2022-02-13 13:04:00 [facility] MAGNESIUM 2022-02-13 13:04:00 [facility] VITAMIN B12 2022-02-13 13:04:00 [facility] TSH + FREE T4 PROFILE 2022-02-13 13:04:[address] [facility] [address] ABDOMEN/PELVIS WITH & 2022-02-04 11:15:00 Bird Yen [facility] WITHOUT IV CONTRAST Medical [facility] er CT CHEST WITH IV CONTRAST 2022-02-04 11:15:00 Bird Yen [facility] COMPREHENSIVE METABOLIC 2021-11-15 16:07:00 Omar Yen [facility] PANEL Medicine MAGNESIUM 2021-11-15 16:07:00 Omar Yen [facility] CBC W/AUTO DIFF WITH 2021-11-15 16:07:00 Omar Yen [facility] PLATELETS [facility] CBC W/AUTO DIFF WITH 2021-11-15 11:07:00 [facility] PLATELETS [facility] COMPREHENSIVE METABOLIC 2021-11-15 11:07:00 [facility] PANEL [facility] MAGNESIUM 2021-11-15 11:07:00 [facility] VITAMIN B12 2021-11-15 11:07:00 [facility] Medicine CT ABDOMEN/PELVIS WITH IV 2021-10-29 13:15:00 Yen, [facility] CT CHEST WITH IV CONTRAST 2021-10-29 13:15:00 Yen, [facility] POCT URINALYSIS DIPSTICK 2021-08-08 00:00:00 Vita Jaimes [facility] CT CHEST WITH IV CONTRAST 2021-07-29 13:03:00 Yen, [facility] CT ABDOMEN/PELVIS WITH IV 2021-07-29 13:03:00 Yen, [facility] POCT-CREATININE 2021-07-29 12:50:00 Yen, [facility] CT ABDOMEN/PELVIS WITH IV 2021-05-03 11:22:00 Yen, [facility] CT CHEST WITH IV CONTRAST 2021-05-03 11:22:00 Yen, [facility] POCT-CREATININE 2021-05-03 11:04:00 Yen, [facility] EXTERNAL PROVIDER RECORDS 2020-10-05 05:01:00 Doctor Unassalbin, [facility] BI SCREENING MAMMOGRAM 2020-07-19 18:09:33 Alec Foss [facility] BILATERAL Medical Branch PELVIS COMPLETE WITH 2020-07-19 17:44:07 Alec Foss [facility] TRANSVAGINAL Medical Branch HEAD NECK 2020-07-19 17:37:41 Pipo Alec [facility] ASSIGNMENT OF BENEFITS 2020-07-19 16:40:50 [facility] ASSIGNMENT OF BENEFITS 2020-06-25 19:52:55 [facility] POCT URINALYSIS DIPSTICK 2020-05-15 00:00:00 Vita Jaimes [facility] COMPREHENSIVE METABOLIC 2020-02-21 21:30:00 Vita Jaimes [facility] PANEL Medicine CBC W/AUTO DIFF WITH 2020-02-21 21:30:00 Vita Jaimes [facility] PLATELETS Medicine XR LUMBAR SPINE 2 VIEWS AP 2020-01-06 20:56:29 Giancarlo Doherty [facility] CBC W ABSOLUTE NEUTROPHIL 2019-12-20 05:00:00 Farshad [facility] COUNT Medicine COMPREHENSIVE METABOLIC 2019-12-20 05:00:00 Farshad kishore [facility] PANEL Medicine MAGNESIUM 2019-12-20 05:00:00 Farshad [facility] MYOCARD PERFUSION - 2019-12-19 15:51:01 Frandy [facility] ECHO, COMPLETE 2019-12-19 13:44:45 Frandy [facility] EJECTION FRACTION RESULT 2019-12-19 00:00:00 Provider, Maggie snyder [facility] ELECTROCARDIOGRAM COMPLETE 2019-12-13 18:09:26 Frandy [facility] ELECTROCARDIOGRAM COMPLETE 2019-12-13 18:09:26 Frandy [facility] CBC W/AUTO DIFF WITH 2019-12-06 14:22:00 Frances Yenlemuel Castano [facility] PLATELETS [facility] COMPREHENSIVE METABOLIC 2019-12-06 14:22:00 [facility] PANEL [facility] MAGNESIUM 2019-12-06 14:22:00 Farshad [facility] CBC W ABSOLUTE NEUTROPHIL 2019-11-22 13:42:00 Yefiliberto [facility] COUNT Medicine COMPREHENSIVE METABOLIC 2019-11-22 13:42:00 YeOmar de los santos [facility] PANEL Medicine MAGNESIUM 2019-11-22 13:42:00 Yefiliberto [facility] COMPREHENSIVE METABOLIC 2019-11-08 13:29:00 [facility]ad [facility] PANEL Medicine MAGNESIUM 2019-11-08 13:29:00 Farshad [facility] ANG,TUNNEL CATH,CENTRAL 2019-11-01 20:08:00 Omar Yen [facility] W Medicine CBC W/AUTO DIFF WITH 2019-11-01 14:45:00 Omar Yen [facility] PROTIME-INR 2019-11-01 14:45:00 Mercy Garcia [facility] APTT 2019-11-01 14:45:00 Mercy Garcia [facility] CT CHEST W CONTRAST 2019-10-27 18:15:00 Vita Jaimes [facility] SURGICAL PATHOLOGY REPORT 2019-10-14 14:26:00 Vita Jaimes [facility] CT ABDOMEN PELVIS W WO 2019-10-12 20:47:00 Vita Jaimes [facility] CHEST 2 VIEWS 2019-10-12 20:12:00 Vita Jaimes [facility] POCT URINALYSIS DIPSTICK 2019-10-04 00:00:00 Vita Jaimes [facility] Plan of Care Planned Activity Planned Date Details Comments Source Future Scheduled 2022-08-17 CT CHEST ABDOMEN PELVIS Expected: [facility] Test 00:00:00 W/WO CONTRAST [code = 08/17/2022, of Med icine 16199] Expires: 02/14/2023 Future Scheduled 2022-03-20 INFLUENZA VACCINE (#1) [facility] Test 00:00:00 [code = INFLUENZA Medical Ce nter VACCINE (#1)] Future Scheduled 2022-02-18 COVID-19 Vaccine (#1) [facility] Test 15:40:57 [code = COVID-19 of Medicine Vaccine (#1)] Future Scheduled 2022-02-18 TETANUS SHOT (ADULT) [facility] Test 15:40:57 [code = TETANUS SHOT of Medi cine (ADULT)] Future Scheduled 2022-02-18 BMI FOLLOW UP PLAN [facility] Test 15:40:57 [code = BMI FOLLOW UP of Med icine PLAN] Future Scheduled 2022-02-18 Hepatitis C screening [facility] Test 15:40:57 (procedure) [code = of Medic ine 526372649] Future Scheduled 2022-02-18 ZOSTER VACCINE (1 of 2) [facility] [employer] Test 15:40:57 [code = ZOSTER VACCINE of Me dicine (1 of 2)] Future Scheduled 2022-02-18 Screening for [facility] [employer] Test 15:40:57 osteoporosis of Medicine (procedure) [code = 319763528] Future Scheduled 2022-02-18 Pneumococcal 65+ (1 - [employer] Test 15:40:57 PCV) [code = of Medicine Pneumococcal 65+ (1 - PCV)] Future Scheduled 2022-02-18 MEDICARE AWV (Initial) [facility] [employer] Test 15:40:57 [code = MEDICARE AWV of Medi cine (Initial)] Future Scheduled 2022-02-18 FLU VACCINE > 6 MONTHS [facility] [employer] Test 15:40:57 [code = FLU VACCINE > 6 of M edicine MONTHS] Future Scheduled 2022-02-18 FALL SCREEN [code = [employer] Test 15:40:57 FALL SCREEN] of Medicine Future Scheduled 2022-02-17 CBC W/AUTO DIFF WITH Ordered: [facility] Test 12:14:34 PLATELETS [code = 02/17/2022 of Medicin e 75255-8] Future Scheduled 2022-02-17 COMPREHENSIVE METABOLIC Ordered: [facility] Test 12:14:34 PANEL [code = 53761-2] 02/17/2022 of Me dicine Future Scheduled 2022-02-17 MAGNESIUM [code = Ordered: [facility] Test 12:14:34 16959-2] 02/17/2022 of Medicine Future Scheduled 2022-02-17 VITAMIN B12 [code = Ordered: [facility] [employer] Test 12:14:34 2-9] 02/17/2022 of Medicine Future Scheduled 2022-02-17 COVID-19 Vaccine (#1) [employer] [facility] [employer] Test 12:10:01 [code = COVID-19 of Medicine Vaccine (#1)] Future Scheduled 2022-02-17 TETANUS SHOT (ADULT) [employer] Test 12:10:01 [code = TETANUS SHOT of Medi cine (ADULT)] Future Scheduled 2022-02-17 BMI FOLLOW UP PLAN [employer] Test 12:10:01 [code = BMI FOLLOW UP of Med icine PLAN] Future Scheduled 2022-02-17 Hepatitis C screening [employer] Test 12:10:01 (procedure) [code = of Medic ine 261824698] Future Scheduled 2022-02-17 ZOSTER VACCINE (1 of 2) [facility] [employer] Test 12:10:01 [code = ZOSTER VACCINE of Me dicine (1 of 2)] Future Scheduled 2022-02-17 Screening for [employer] Test 12:10:01 osteoporosis of Medicine (procedure) [code = 558300956] Future Scheduled 2022-02-17 Pneumococcal 65+ (1 - [employer] Test 12:10:01 PCV) [code = of Medicine Pneumococcal 65+ (1 - PCV)] Future Scheduled 2022-02-17 MEDICARE AWV (Initial) [facility] [employer] Test 12:10:01 [code = MEDICARE AWV of Medi cine (Initial)] Future Scheduled 2022-02-17 FLU VACCINE > 6 MONTHS [facility] [employer] Test 12:10:01 [code = FLU VACCINE > 6 of M edicine MONTHS] Future Scheduled 2022-02-17 FALL SCREEN [code = [employer] Test 12:10:01 FALL SCREEN] of Medicine Future Scheduled 2022-02-14 IR FLUROSCOPY GUIDED 1 Occurrences [facility] [employer] Test 12:55:29 CENTRAL VENOUS ACCESS starting of Med icine DEVICE REMOVAL [code = 02/14/2022 until 67562] 02/14/2023 Future Scheduled 2022-02-07 CT CHEST ABDOMEN PELVIS Expected: [facility] Test 00:00:00 W/WO CONTRAST [code = 02/07/2022, of Med icine 66659] Expires: 11/15/2022 Future Scheduled 2021-11-15 COVID-19 Vaccine (1) [facility] [employer] Test 11:04:13 [code = COVID-19 of Medicine Vaccine (1)] Future Scheduled 2021-11-15 TETANUS SHOT (ADULT) [employer] Test 11:04:13 [code = TETANUS SHOT of Medi cine (ADULT)] Future Scheduled 2021-11-15 BMI FOLLOW UP PLAN [facility] [employer] Test 11:04:13 [code = BMI FOLLOW UP of Med icine PLAN] Future Scheduled 2021-11-15 Hepatitis C screening [employer] Test 11:04:13 (procedure) [code = of Medic ine 985349399] Future Scheduled 2021-11-15 ZOSTER VACCINE (1 of 2) [facility] [employer] Test 11:04:13 [code = ZOSTER VACCINE of Me dicine (1 of 2)] Future Scheduled 2021-11-15 Screening for [employer] Test 11:04:13 osteoporosis of Medicine (procedure) [code = 102772723] Future Scheduled 2021-11-15 Pneumococcal 65+ (1 of [employer] Test 11:04:13 1 - PPSV23) [code = of Medic ine Pneumococcal 65+ (1 of 1 - PPSV23)] Future Scheduled 2021-11-15 MEDICARE AWV (Initial) [employer] Test 11:04:13 [code = MEDICARE AWV of Medi [employer] (Initial)] Future Scheduled 2021-11-15 FLU VACCINE > 6 MONTHS [employer] Test 11:04:13 [code = FLU VACCINE > 6 of M edicine MONTHS] Future Scheduled 2021-11-15 FALL SCREEN [code = [employer] Test 11:04:13 FALL SCREEN] of Medicine Future Scheduled 2021-11-15 VITAMIN B12 [code = [employer] Test 10:51:45 2-] of Medicine Future Scheduled 2021-09-17 COVID-19 Vaccine (1) [employer] Test 10:05:09 [code = COVID-19 of Medicine Vaccine (1)] Future Scheduled 2021-09-17 TETANUS SHOT (ADULT) [employer] Test 10:05:09 [code = TETANUS SHOT of Medi cine (ADULT)] Future Scheduled 2021-09-17 Hepatitis C screening [facility] Test 10:05:09 (procedure) [code = of Medic ine 927589719] Future Scheduled 2021-09-17 ZOSTER VACCINE (1 of 2) [facility] [employer] Test 10:05:09 [code = ZOSTER VACCINE of Me dicine (1 of 2)] Future Scheduled 2021-09-17 Screening for [facility] [employer] Test 10:05:09 osteoporosis of Medicine (procedure) [code = 123388587] Future Scheduled 2021-09-17 Pneumococcal 65+ (1 of [employer] Test 10:05:09 1 - PPSV23) [code = of Medic ine Pneumococcal 65+ (1 of 1 - PPSV23)] Future Scheduled 2021-09-17 MEDICARE AWV (Initial) [employer] Test 10:05:09 [code = MEDICARE AWV of Medi PlusFourSix (Initial)] Future Scheduled 2021-09-17 FLU VACCINE > 6 MONTHS [employer] Test 10:05:09 [code = FLU VACCINE > 6 of M edicine MONTHS] Future Scheduled 2021-09-17 FALL SCREEN [code = [employer] Test 10:05:09 FALL SCREEN] of Medicine Future Scheduled 2021-08-16 VITAMIN B12 [code = Ordered: [employer] Test 11:14:13 2132-9] 08/16/2021 of Medicine Future Scheduled 2021-08-16 CBC W/AUTO DIFF WITH Ordered: [facility] Test 11:14:13 PLATELETS [code = 08/16/2021 of Medicin e 02266-7] Future Scheduled 2021-08-16 COMPREHENSIVE METABOLIC Ordered: [facility] Test 11:14:13 PANEL [code = 45101-6] 08/16/2021 of Me dicine Future Scheduled 2021-08-16 CT CHEST ABDOMEN PELVIS 1 Occurrences [facility] Test 11:14:13 W CONTRAST [code = [place] [address]-5] 08/16/2021 until 08/16/2022 Future Scheduled 2021-08-16 Screening for malignant [facility] Test 10:09:14 neoplasm of colon of Medicin e (procedure) [code = 966292416] Future Scheduled 2021-08-16 COVID-19 Vaccine (1) [facility] Test 10:09:14 [code = COVID-19 of Medicine Vaccine (1)] Future Scheduled 2021-08-16 TETANUS SHOT (ADULT) [facility] Test 10:09:14 [code = TETANUS SHOT of Medi cine (ADULT)] Future Scheduled 2021-08-16 Hepatitis C screening [facility] Test 10:09:14 (procedure) [code = of Medic ine 009162453] Future Scheduled 2021-08-16 ZOSTER VACCINE (1 of 2) [facility] Test 10:09:14 [code = ZOSTER VACCINE of Me dicine (1 of 2)] Future Scheduled 2021-08-16 Screening for [facility] [employer] Test 10:09:14 osteoporosis of Medicine (procedure) [code = 481320473] Future Scheduled 2021-08-16 Pneumococcal 65+ (1 of [facility] [employer] Test 10:09:14 1 - PPSV23) [code = of Medic ine Pneumococcal 65+ (1 of 1 - PPSV23)] Future Scheduled 2021-08-16 MEDICARE AWV (Initial) [employer] Test 10:09:14 [code = MEDICARE AWV of Medi cine (Initial)] Future Scheduled 2021-08-16 FLU VACCINE > 6 MONTHS [employer] Test 10:09:14 [code = FLU VACCINE > 6 of M edicine MONTHS] Future Scheduled 2021-08-16 Screening for malignant [facility] [employer] Test 10:09:14 neoplasm of breast of Medici ne (procedure) [code = 190946671] Future Scheduled 2021-08-16 FALL SCREEN [code = [employer] Test 10:09:14 FALL SCREEN] of Medicine Future Scheduled 2021-08-08 Screening for malignant [facility] [employer] Test 10:57:12 neoplasm of colon of Medicin e (procedure) [code = 060976302] Future Scheduled 2021-08-08 COVID-19 Vaccine (1) [employer] Test 10:57:12 [code = COVID-19 of Medicine Vaccine (1)] Future Scheduled 2021-08-08 TETANUS SHOT (ADULT) [employer] Test 10:57:12 [code = TETANUS SHOT of Medi cine (ADULT)] Future Scheduled 2021-08-08 Hepatitis C screening [facility] [employer] Test 10:57:12 (procedure) [code = of Medic ine 870351774] Future Scheduled 2021-08-08 ZOSTER VACCINE (1 of 2) [facility] [employer] Test 10:57:12 [code = ZOSTER VACCINE of Me dicine (1 of 2)] Future Scheduled 2021-08-08 FALL SCREEN [code = [employer] Test 10:57:12 FALL SCREEN] of Medicine Future Scheduled 2021-08-08 Screening for [facility] [employer] Test 10:57:12 osteoporosis of Medicine (procedure) [code = 884262218] Future Scheduled 2021-08-08 Pneumococcal 65+ (1 of [employer] Test 10:57:12 1 - PPSV23) [code = of Medic ine Pneumococcal 65+ (1 of 1 - PPSV23)] Future Scheduled 2021-08-08 MEDICARE AWV (Initial) [employer] Test 10:57:12 [code = MEDICARE AWV of Medi cine (Initial)] Future Scheduled 2021-08-08 FLU VACCINE > 6 MONTHS [employer] Test 10:57:12 [code = FLU VACCINE > 6 of M edicine MONTHS] Future Scheduled 2021-08-08 Screening for malignant [facility] [employer] Test 10:57:12 neoplasm of breast of Medici ne (procedure) [code = 836486972] Future Scheduled 2021-08-08 CBC W/AUTO DIFF WITH Ordered: [employer] Test 10:54:25 PLATELETS [code = 08/08/2021 of Medicin e 01880-0] Future Scheduled 2021-08-08 COMPREHENSIVE METABOLIC Ordered: [facility] [employer] Test 10:54:25 PANEL [code = 02891-3] 08/08/2021 of Me dicine Future Scheduled 2021-08-08 VITAMIN B12 [code = Ordered: [employer] Test 10:54:25 2132-9] 08/08/2021 of Medicine Future Scheduled 2021-07-[address] [facility] Test 00:00:00 (12+) [code = Medical Center DEPRESSION SCREENING (12+)] Future Scheduled 2021-07-[address] F[address]ISK SCREENING [facility] Test 00:00:00 [code = FALLS RISK Medical C enter SCREENING] Future Scheduled 2021-05-07 CT CHEST ABDOMEN PELVIS 1 Occurrences [facility] [employer] Test 14:59:03 W CONTRAST [code = [place] [address]-6] 05/07/2021 until 05/07/2022 Future Scheduled 2021-05-07 Screening for malignant [facility] [employer] Test 14:45:26 neoplasm of colon of Medicin e (procedure) [code = 978356696] Future Scheduled 2021-05-07 COVID-19 Vaccine (1) [facility] [employer] Test 14:45:26 [code = COVID-19 of Medicine Vaccine (1)] Future Scheduled 2021-05-07 TETANUS SHOT (ADULT) [employer] Test 14:45:26 [code = TETANUS SHOT of Medi cine (ADULT)] Future Scheduled 2021-05-07 Hepatitis C screening [facility] [employer] Test 14:45:26 (procedure) [code = of Medic ine 991802238] Future Scheduled 2021-05-07 ZOSTER VACCINE (1 of 2) [facility] [employer] Test 14:45:26 [code = ZOSTER VACCINE of Me dicine (1 of 2)] Future Scheduled 2021-05-07 FALL SCREEN [code = [employer] Test 14:45:26 FALL SCREEN] of Medicine Future Scheduled 2021-05-07 Screening for [employer] Test 14:45:26 osteoporosis of Medicine (procedure) [code = 699076023] Future Scheduled 2021-05-07 PNEUMOVAX >=65 (PPSV23) [facility] [employer] Test 14:45:26 [code = PNEUMOVAX >=65 of Me dicine (PPSV23)] Future Scheduled 2021-05-07 MEDICARE AWV (Initial) [facility] [employer] Test 14:45:26 [code = MEDICARE AWV of Medi cine (Initial)] Future Scheduled 2021-05-07 FLU VACCINE > 6 MONTHS [facility] [employer] Test 14:45:26 [code = FLU VACCINE > 6 of M edicine MONTHS] Future Scheduled 2021-05-07 Screening for malignant [facility] Test 14:45:26 neoplasm of breast of Medici ne (procedure) [code = 030692004] Future Scheduled 2021-05-01 CT CHEST ABDOMEN PELVIS Expected: [facility] Test 00:00:00 W CONTRAST [code = 05/01/2021, [place] [address]-1] Expires: 01/29/2022 Future Scheduled 2021-03-[address] [facility] Test 00:00:00 WELLNESS (YEAR 2 or Medical Center FIRST YEAR if no IPPE) [code = MEDICARE ANNUAL WELLNESS (YEAR 2 or FIRST YEAR if no IPPE)] Future Scheduled 2021-01-29 Screening for malignant [facility] Test 14:20:34 neoplasm of colon of Medicin e (procedure) [code = 489271588] Future Scheduled 2021-01-29 COVID-19 Vaccine (1) [facility] Test 14:20:34 [code = COVID-19 of Medicine Vaccine (1)] Future Scheduled 2021-01-29 TETANUS SHOT (ADULT) [facility] Test 14:20:34 [code = TETANUS SHOT of Medi cine (ADULT)] Future Scheduled 2021-01-29 Hepatitis C screening [facility] Test 14:20:34 (procedure) [code = of Medic ine 433887631] Future Scheduled 2021-01-29 ZOSTER VACCINE (1 of 2) [facility] Test 14:20:34 [code = ZOSTER VACCINE of Me dicine (1 of 2)] Future Scheduled 2021-01-29 FALL SCREEN [code = [facility] [place] Test 14:20:34 FALL SCREEN] of Medicine Future Scheduled 2021-01-29 Screening for [facility] [employer] Test 14:20:34 osteoporosis of Medicine (procedure) [code = 169948810] Future Scheduled 2021-01-29 PNEUMOVAX >=65 (PPSV23) [employer] Test 14:20:34 [code = PNEUMOVAX >=65 of Me dicine (PPSV23)] Future Scheduled 2021-01-29 MEDICARE IPPE (WELCOME [employer] Test 14:20:34 TO MEDICARE) [code = of Medi cine MEDICARE IPPE (WELCOME TO MEDICARE)] Future Scheduled 2021-01-29 FLU VACCINE > 6 MONTHS [employer] Test 14:20:34 [code = FLU VACCINE > 6 of M edicine MONTHS] Future Scheduled 2021-01-29 Screening for malignant [facility] [employer] Test 14:20:34 neoplasm of breast of Medici ne (procedure) [code = 885332318] Future Scheduled 2021-01-29 Screening for malignant [facility] [employer] Test 13:25:47 neoplasm of colon of Medicin e (procedure) [code = 985746837] Future Scheduled 2021-01-29 COVID-19 Vaccine (1) [employer] Test 13:25:47 [code = COVID-19 of Medicine Vaccine (1)] Future Scheduled 2021-01-29 TETANUS SHOT (ADULT) [employer] Test 13:25:47 [code = TETANUS SHOT of Medi cine (ADULT)] Future Scheduled 2021-01-29 BMI FOLLOW UP PLAN [facility] [employer] Test 13:25:47 [code = BMI FOLLOW UP of Med icine PLAN] Future Scheduled 2021-01-29 Hepatitis C screening [facility] [employer] Test 13:25:47 (procedure) [code = of Medic ine 226939679] Future Scheduled 2021-01-29 ZOSTER VACCINE (1 of 2) [facility] [employer] Test 13:25:47 [code = ZOSTER VACCINE of Me dicine (1 of 2)] Future Scheduled 2021-01-29 FALL SCREEN [code = [employer] Test 13:25:47 FALL SCREEN] of Medicine Future Scheduled 2021-01-29 Screening for [employer] Test 13:25:47 osteoporosis of Medicine (procedure) [code = 014950492] Future Scheduled 2021-01-29 PNEUMOVAX >=65 (PPSV23) [facility] [employer] Test 13:25:47 [code = PNEUMOVAX >=65 of Me dicine (PPSV23)] Future Scheduled 2021-01-29 MEDICARE IPPE (WELCOME [facility] [employer] Test 13:25:47 TO MEDICARE) [code = of Medi cine MEDICARE IPPE (WELCOME TO MEDICARE)] Future Scheduled 2021-01-29 FLU VACCINE > 6 MONTHS [employer] Test 13:25:47 [code = FLU VACCINE > 6 of M edicine MONTHS] Future Scheduled 2021-01-29 Screening for malignant [facility] Test 13:25:47 neoplasm of breast of Medici ne (procedure) [code = 312725517] Future Scheduled 2021-01-29 CBC W/AUTO DIFF WITH Ordered: [facility] Test 12:59:23 PLATELETS [code = 01/29/2021 of Medicin e 45952-4] Future Scheduled 2021-01-29 COMPREHENSIVE METABOLIC Ordered: [facility] Test 12:59:23 PANEL [code = 04749-5] 01/29/2021 of Me dicine Future Scheduled 2021-01-29 MAGNESIUM [code = Ordered: [facility] Test 12:59:23 21388-0] 01/29/2021 of Medicine Future Scheduled 2021-01-29 VITAMIN B12 [code = Ordered: [facility] Test 12:59:23 2-9] 01/29/2021 of Medicine Future Scheduled 2020-12-18 Screening for malignant [facility] Test 15:26:17 neoplasm of colon of Medicin e (procedure) [code = 691909779] Future Scheduled 2020-12-18 COVID-19 Vaccine (1) [facility] Test 15:26:17 [code = COVID-19 of Medicine Vaccine (1)] Future Scheduled 2020-12-18 TETANUS SHOT (ADULT) [facility] [employer] Test 15:26:17 [code = TETANUS SHOT of Medi cine (ADULT)] Future Scheduled 2020-12-18 BMI FOLLOW UP PLAN [facility] [employer] Test 15:26:17 [code = BMI FOLLOW UP of Med icine PLAN] Future Scheduled 2020-12-18 Hepatitis C screening [facility] Test 15:26:17 (procedure) [code = of Medic ine [id number]] Future Scheduled 2020-12-18 ZOSTER VACCINE (1 of 2) [facility] [employer] Test 15:26:17 [code = ZOSTER VACCINE of Me dicine (1 of 2)] Future Scheduled 2020-12-18 Screening for [facility] [employer] Test 15:26:17 osteoporosis of Medicine (procedure) [code = [id number]] Future Scheduled 2020-12-18 PNEUMOVAX >=65 (PPSV23) [facility] [employer] Test 15:26:17 [code = PNEUMOVAX >=65 of Me dicine (PPSV23)] Future Scheduled 2020-12-18 MEDICARE IPPE (WELCOME [facility] [employer] Test 15:26:17 TO MEDICARE) [code = of [employer] MEDICARE IPPE (WELCOME TO MEDICARE)] Future Scheduled 2020-12-18 FALL SCREEN [code = [facility] [place] [facility] 15:26:17 FALL SCREEN] of Medicine Future Scheduled 2020-12-18 FLU VACCINE > 6 MONTHS [employer] Test 15:26:17 [code = FLU VACCINE > 6 of M edicine MONTHS] Future Scheduled 2020-12-18 Screening for malignant [facility] Test 15:26:17 neoplasm of breast of Medici ne (procedure) [code = 628522526] Diagnostic Test 2020-10-25 CT CHEST ABDOMEN PELVIS Expected: [employer] Pending 00:00:00 W CONTRAST [code = 10/25/2020, [place] [address]-6] Expires: 07/27/2021 Diagnostic Test 2020-04-05 CT ABDOMEN PELVIS W WO Expected: [facility] Pending 00:00:00 CONTRAST [code = 04/05/2020, of Medicine 90525-7] Expires: 05/05/2020 Diagnostic Test 2019-12-13 MYOCARD PERFUSION - Expected: [facility] [place] Pending 00:00:00 LEXISCAN [code = 94178] 12/13/2019, of M edicine Expires: 06/14/2021 Diagnostic Test 2019-12-13 ECHO, COMPLETE [code = Expected: [facility] [place] Pending 00:00:00 [id number]] 12/13/2019, of Medicine Expires: 06/14/2020 Diagnostic Test 2019-11-01 IR PORT PLACEMENT EQUAL Expected: [facility] [employer] Pending 00:00:00 OR > 5 YEARS [code = 11/01/2019, of [employer] [id number]] Expires: 10/24/2020 Future Scheduled 2010 PNEUMOCOCCAL 65+ YRS ([address] [facility] Test 00:00:00 - PCV) [code = Medical Cent[facility] r PNEUMOCOCCAL 65+ YRS (1 - PCV)] Future Scheduled 1995 SHINGLES VACCINES ([address] [facility] Test 00:00:00 2) [code = SHINGLES Medical Center VACCINES (1 of 2)] Future Scheduled 1964 DTAP/TDAP/TD VACCINES [facility] Test 00:00:00 (1 - Tdap) [code = Medical C enter DTAP/TDAP/TD VACCINES (1 - Tdap)] Future Scheduled 1963 HEPATITIS C SCREENING [facility] Test 00:00:00 [code = HEPATITIS C Medical Center SCREENING] Future Scheduled 1946-03-03 COVID-19 VACCINE (#1) [facility] Test 00:00:00 [code = COVID-[address] VACCINE (#1)] Future Scheduled 1945 DXA SCAN [code = DXA [facility] Test 00:00:00 SCAN] [facility] Future Scheduled Screening for malignant [facility] [employer] Test neoplasm of colon of Medicin e (procedure) [code = 003440076] Future Scheduled TETANUS SHOT (ADULT) [employer] Test [code = TETANUS SHOT of Medi cine (ADULT)] Future Scheduled COVID-19 Vaccine (1) [employer] Test [code = COVID-19 of Medicine Vaccine (1)] Future Scheduled Hepatitis C screening [employer] Test (procedure) [code = of Medic ine [id number]] Future Scheduled ZOSTER VACCINE (1 of 2) [employer] Test [code = ZOSTER VACCINE of Me dicine (1 of 2)] Future Scheduled Screening for [facility] [place] [employer] Test osteoporosis of Medicine (procedure) [code = 904566716] Future Scheduled PNEUMOVAX >=65 (PPSV23) [employer] Test [code = PNEUMOVAX >=65 of Me dicine (PPSV23)] Future Scheduled MEDICARE IPPE (WELCOME [employer] TO MEDICARE) [code = of Medi cine MEDICARE IPPE (WELCOME TO MEDICARE)] Future Scheduled FALL SCREEN [code = [facility] [employer] [facility] FALL SCREEN] of Medicine Future Scheduled Screening for malignant [facility] [employer] Test neoplasm of breast of Medici ne (procedure) [code = 626587064] Future Scheduled CBC W/AUTO DIFF WITH Ordered: [employer] Test PLATELETS [code = 10/25/2019 of Medicin e 27472-5] Future Scheduled Screening for malignant [facility] [employer] Test neoplasm of colon of Medicin e (procedure) [code = 227836224] Future Scheduled TETANUS SHOT (ADULT) [employer] [facility] [code = TETANUS SHOT of Medi cine (ADULT)] Future Scheduled COVID-19 Vaccine (1) [employer] [facility] [code = COVID-19 of Medicine Vaccine (1)] Future Scheduled Hepatitis C screening [employer] [facility] (procedure) [code = of Medic ine 240718936] Future Scheduled ZOSTER VACCINE (1 of 2) [employer] Test [code = ZOSTER VACCINE of Me dicine (1 of 2)] Future Scheduled Screening for [employer] Test osteoporosis of Medicine (procedure) [code = 259362151] Future Scheduled PNEUMOVAX >=65 (PPSV23) [employer] Test [code = PNEUMOVAX >=65 of Me dicine (PPSV23)] Future Scheduled MEDICARE IPPE (WELCOME B [facility] [employer] Test TO MEDICARE) [code = of Medi cine MEDICARE IPPE (WELCOME TO MEDICARE)] Future Scheduled COMPREHENSIVE METABOLIC Ordered: [facility] Test PANEL [code = 02905-0] 10/25/2019 of Me dicine Future Scheduled FALL SCREEN [code = [facility] [employer] [facility] FALL SCREEN] of Medicine Future Scheduled Screening for malignant [facility] [employer] Test neoplasm of breast of Medici ne (procedure) [code = 762954350] Future Scheduled MAGNESIUM [code = Ordered: [employer] Test 87522-7] 10/25/2019 of Medicine Future Scheduled COLON CANCER SCREENING: [facility] [employer] Test COLONOSCOPY [code = of Medic ine COLON CANCER SCREENING: COLONOSCOPY] Future Scheduled Screening for malignant [facility] [employer] Test neoplasm of colon of Medicin e (procedure) [code = 282699829] Future Scheduled TETANUS SHOT (ADULT) [employer] Test [code = TETANUS SHOT of Medi cine (ADULT)] Future Scheduled COVID-19 Vaccine (1) [employer] [facility] [code = COVID-19 of Medicine Vaccine (1)] Future Scheduled BMI FOLLOW UP PLAN [employer] [facility] [code = BMI FOLLOW UP of Med icine PLAN] Future Scheduled Hepatitis C screening [employer] [facility] (procedure) [code = of Medic ine 337146860] Future Scheduled MAMMOGRAM ANNUAL [code [employer] Test = MAMMOGRAM ANNUAL] of Medic ine Future Scheduled ZOSTER VACCINE (1 of 2) [facility] [employer] Test [code = ZOSTER VACCINE of Me dicine (1 of 2)] Future Scheduled Screening for [employer] Test osteoporosis of Medicine (procedure) [code = 317678680] Future Scheduled PNEUMOVAX >=65 (PPSV23) [employer] Test [code = PNEUMOVAX >=65 of Me dicine (PPSV23)] Future Scheduled MEDICARE IPPE (WELCOME [employer] TO MEDICARE) [code = of [employer] MEDICARE IPPE (WELCOME TO MEDICARE)] Future Scheduled FALL SCREEN [code = [facility] [employer] [facility] FALL SCREEN] of Medicine Future Scheduled FLU VACCINE > 6 MONTHS [employer] Test [code = FLU VACCINE > 6 of M edicine MONTHS] Future Scheduled Screening for malignant [employer] Test neoplasm of breast of Medici ne (procedure) [code = 595407374] Future Scheduled TETANUS SHOT (ADULT) [employer] Test [code = TETANUS SHOT of Medi cine (ADULT)] Future Scheduled BMI FOLLOW UP PLAN [employer] [facility] [code = BMI FOLLOW UP of Med icine PLAN] Future Scheduled Screening for malignant [employer] Test neoplasm of colon of Medicin e (procedure) [code = 036214325] Future Scheduled TETANUS SHOT (ADULT) [employer] Test [code = TETANUS SHOT of Medi cine (ADULT)] Future Scheduled COVID-19 Vaccine (1) [employer] Test [code = COVID-19 of Medicine Vaccine (1)] Future Scheduled BMI FOLLOW UP PLAN [employer] [facility] [code = BMI FOLLOW UP of Med icine PLAN] Future Scheduled HEPATITIS C SCREENING [employer] [facility] [code = HEPATITIS C of Medic ine SCREENING] Future Scheduled Hepatitis C screening [employer] [facility] (procedure) [code = of Medic ine 318128337] Future Scheduled ZOSTER VACCINE (1 of 2) [facility] [employer] Test [code = ZOSTER VACCINE of Me dicine (1 of 2)] Future Scheduled Screening for [employer] [facility] osteoporosis of Medicine (procedure) [code = 451701077] Future Scheduled PNEUMOVAX >=65 (PPSV23) [employer] Test [code = PNEUMOVAX >=65 of Me dicine (PPSV23)] Future Scheduled MEDICARE IPPE (WELCOME [employer] TO MEDICARE) [code = of Medi cine MEDICARE IPPE (WELCOME TO MEDICARE)] Future Scheduled FALL SCREEN [code = [facility] [employer] [facility] FALL SCREEN] of Medicine Future Scheduled FLU VACCINE > 6 MONTHS [facility] [employer] Test [code = FLU VACCINE > 6 of M edicine MONTHS] Future Scheduled Screening for malignant [facility] Test neoplasm of breast of Medici ne (procedure) [code = 838627765] Future Scheduled FALL SCREEN [code = [facility] [facility] FALL SCREEN] of Medicine Future Scheduled OSTEOPOROSIS SCREENING [facility] [employer] [facility] [code = OSTEOPOROSIS of Medi cine SCREENING] Future Scheduled PNEUMOVAX >=65 (PPSV23) [facility] [employer] Test [code = PNEUMOVAX >=65 of Me dicine (PPSV23)] Future Scheduled PREVNAR >= 65 (PCV13) [employer] Test [code = PREVNAR >= 65 of Med icine (PCV13)] Future Scheduled FLU VACCINE > 6 MONTHS [facility] [employer] [facility] [code = FLU VACCINE > 6 of M edicine MONTHS] Future Scheduled CBC W/AUTO DIFF WITH Ordered: [facility] Test PLATELETS [code = 11/08/2019 of Medicin e 05617-4] Future Scheduled COMPREHENSIVE METABOLIC Ordered: [facility] Test PANEL [code = 45222-5] 11/08/2019 of Me dicine Future Scheduled MAGNESIUM [code = Ordered: [facility] Test 28331-4] 11/08/2019 of Medicine Future Scheduled COLON CANCER SCREENING: [facility] Test COLONOSCOPY [code = of Medic ine COLON CANCER SCREENING: COLONOSCOPY] Future Scheduled MAMMOGRAM ANNUAL [code B [facility] Test = MAMMOGRAM ANNUAL] of Medic ine Future Scheduled TETANUS SHOT (ADULT) [employer] Test [code = TETANUS SHOT of Medi cine (ADULT)] Future Scheduled BMI FOLLOW UP PLAN [employer] [employer] Test [code = BMI FOLLOW UP of Med icine PLAN] Future Scheduled HEPATITIS C SCREENING [employer] Test [code = HEPATITIS C of Medic ine SCREENING] Future Scheduled OSTEOPOROSIS SCREENING [facility] [employer] Test [code = OSTEOPOROSIS of Medi cine SCREENING] Future Scheduled PNEUMOVAX >=65 (PPSV23) [facility] [employer] Test [code = PNEUMOVAX >=65 of Me dicine (PPSV23)] Future Scheduled PREVNAR >= 65 (PCV13) [employer] Test [code = PREVNAR >= 65 of Med icine (PCV13)] Future Scheduled FLU VACCINE > 6 MONTHS [facility] [employer] Test [code = FLU VACCINE > 6 of M edicine MONTHS] Future Scheduled FALL SCREEN [code = [facility] [facility] FALL SCREEN] of Medicine Future Scheduled CBC W/AUTO DIFF WITH Ordered: [facility] [employer] Test PLATELETS [code = 11/22/2019 of Medicin e 02197-2] Future Scheduled COMPREHENSIVE METABOLIC Ordered: [facility] Test PANEL [code = 74804-2] 11/22/2019 of Me dicine Future Scheduled MAGNESIUM [code = Ordered: [facility] [employer] Test 06515-3] 11/22/2019 of Medicine Future Scheduled COLON CANCER SCREENING: [facility] Test COLONOSCOPY [code = of Medic ine COLON CANCER SCREENING: COLONOSCOPY] Future Scheduled MAMMOGRAM ANNUAL [code [facility] [employer] Test = MAMMOGRAM ANNUAL] of Medic ine Future Scheduled TETANUS SHOT (ADULT) [employer] Test [code = TETANUS SHOT of Medi cine (ADULT)] Future Scheduled BMI FOLLOW UP PLAN [employer] Test [code = BMI FOLLOW UP of Med icine PLAN] Future Scheduled HEPATITIS C SCREENING [employer] Test [code = HEPATITIS C of Medic ine SCREENING] Future Scheduled OSTEOPOROSIS SCREENING [facility] [employer] Test [code = OSTEOPOROSIS of Medi cine SCREENING] Future Scheduled PNEUMOVAX >=65 (PPSV23) [facility] [employer] Test [code = PNEUMOVAX >=65 of [...] of Medicine Future Scheduled COLON CANCER SCREENING: [facility] Test COLONOSCOPY [code = of Medic ine COLON CANCER SCREENING: COLONOSCOPY] Future Scheduled MAMMOGRAM ANNUAL [code [facility] [employer] Test = MAMMOGRAM ANNUAL] of Medic ine Future Scheduled TETANUS SHOT (ADULT) [employer] Test [code = TETANUS SHOT [...] cine SCREENING] Future Scheduled PNEUMOVAX >=65 (PPSV23) [facility] [employer] Test [code = PNEUMOVAX >=65 of [...] FALL SCREEN] of Medicine Future Scheduled ELECTROCARDIOGRAM [facility] [employer] Test COMPLETE [code = 64466] of M edicine Future Scheduled COLON CANCER SCREENING: [facility] Test COLONOSCOPY [code = of Medic ine COLON CANCER SCREENING: COLONOSCOPY] Future Scheduled MAMMOGRAM ANNUAL [code [facility] [employer] Test = MAMMOGRAM ANNUAL] of Medic ine Future Scheduled TETANUS SHOT (ADULT) [employer] Test [code = TETANUS SHOT [...] cine SCREENING] Future Scheduled PNEUMOVAX >=65 (PPSV23) [facility] [employer] Test [code = PNEUMOVAX >=65 of [...] Test FALL SCREEN] of Medicine Future Scheduled MA MED NUTR THER, 1ST, Ordered: [employer] Test INDIV, EA 15 MIN [code 12/14/2019 of Ny dicine = 84869] Future Scheduled COLON CANCER SCREENING: [facility] Test COLONOSCOPY [code = of Medic ine COLON CANCER SCREENING: COLONOSCOPY] Future Scheduled MAMMOGRAM ANNUAL [code [facility] [employer] Test = MAMMOGRAM ANNUAL] of Medic ine Future Scheduled TETANUS SHOT (ADULT) [employer] Test [code = TETANUS SHOT [...] cine SCREENING] Future Scheduled PNEUMOVAX >=65 (PPSV23) [facility] [employer] Test [code = PNEUMOVAX >=65 of [...] of Medicine Future Scheduled COLON CANCER SCREENING: [facility] Test COLONOSCOPY [code = of Medic ine COLON CANCER SCREENING: COLONOSCOPY] Future Scheduled MAMMOGRAM ANNUAL [code [facility] [employer] Test = MAMMOGRAM ANNUAL] of Medic ine Future Scheduled TETANUS SHOT (ADULT) [employer] Test [code = TETANUS SHOT of Medi cine (ADULT)] Future Scheduled BMI FOLLOW UP PLAN [employer] Test [code = BMI FOLLOW UP of Med icine PLAN] Future Scheduled HEPATITIS C SCREENING [employer] Test [code = HEPATITIS C of Medic ine SCREENING] Future Scheduled OSTEOPOROSIS SCREENING [facility] [employer] Test [code = OSTEOPOROSIS of Medi cine SCREENING] Future Scheduled PNEUMOVAX >=65 (PPSV23) [facility] [employer] Test [code = PNEUMOVAX >=65 of Me dicine (PPSV23)] Future Scheduled FLU VACCINE > 6 MONTHS [facility] [employer] Test [code = FLU VACCINE > 6 of M edicine MONTHS] Future Scheduled FALL SCREEN [code = [employer] [facility] FALL SCREEN] of Medicine Future Scheduled COMPREHENSIVE METABOLIC Ordered: [facility] Test PANEL [code = 35703-8] 10/04/2019 of Me dicine Future Scheduled CBC W/AUTO DIFF WITH Ordered: [facility] Test PLATELETS [code = 10/04/2019 of Medicin e 16077-4] Future Scheduled COLON CANCER SCREENING: [facility] Test COLONOSCOPY [code = of Medic ine COLON CANCER SCREENING: COLONOSCOPY] Future Scheduled VITAMIN B12 [code = Ordered: [employer] [employer] [facility] 2132-9] 10/04/2019 of Medicine Future Scheduled MAMMOGRAM ANNUAL [code [facility] [employer] Test = MAMMOGRAM ANNUAL] of Medic ine Future Scheduled TETANUS SHOT (ADULT) [employer] Test [code = TETANUS SHOT [...] cine SCREENING] Future Scheduled PNEUMOVAX >=65 (PPSV23) [facility] [employer] Test [code = PNEUMOVAX >=65 of Me dicine (PPSV23)] Future Scheduled FLU VACCINE > 6 MONTHS [employer] Test [code = FLU VACCINE > 6 of M edicine MONTHS] Future Scheduled FALL SCREEN [code = [employer] [facility] FALL SCREEN] of Medicine Future Scheduled PROTIME-INR [code = Ordered: [employer] [facility] 5902-2] 10/04/2019 of Medicine Future Scheduled CULTURE, Ordered: [facility] [place] [employer] [facility] URINE/SENSITIVITY ON 10/04/2019 of Medi cine ALL [code = 80642-9] Future Scheduled COLON CANCER SCREENING: [facility] Test COLONOSCOPY [code = of Medic ine COLON CANCER SCREENING: COLONOSCOPY] Future Scheduled MAMMOGRAM ANNUAL [code [facility] [employer] Test = MAMMOGRAM ANNUAL] of Medic ine Future Scheduled TETANUS SHOT (ADULT) [employer] Test [code = TETANUS SHOT of Medi cine (ADULT)] Future Scheduled COLON CANCER SCREENING: [facility] Test COLONOSCOPY [code = of Medic ine COLON CANCER SCREENING: COLONOSCOPY] Future Scheduled MAMMOGRAM ANNUAL [code [facility] [employer] Test = MAMMOGRAM ANNUAL] of Medic ine Future Scheduled TETANUS SHOT (ADULT) [employer] Test [code = TETANUS SHOT [...] cine SCREENING] Future Scheduled PNEUMOVAX >=65 (PPSV23) [facility] [employer] Test [code = PNEUMOVAX >=65 of [...] cine SCREENING] Future Scheduled PNEUMOVAX >=65 (PPSV23) [facility] [employer] Test [code = PNEUMOVAX >=65 of Me dicine (PPSV23)] Future Scheduled COLON CANCER SCREENING: [facility] Test COLONOSCOPY [code = of Medic ine COLON CANCER SCREENING: COLONOSCOPY] Future Scheduled MAMMOGRAM ANNUAL [code [facility] [employer] Test = MAMMOGRAM ANNUAL] of Medic ine Future Scheduled TETANUS SHOT (ADULT) [employer] Test [code = TETANUS SHOT of Medi cine (ADULT)] Future Scheduled BMI FOLLOW UP PLAN [employer] Test [code = BMI FOLLOW UP of Med icine PLAN] Future Scheduled HEPATITIS C SCREENING [employer] Test [code = HEPATITIS C of Medic ine SCREENING] Future Scheduled OSTEOPOROSIS SCREENING [facility] [employer] Test [code = OSTEOPOROSIS of Medi cine SCREENING] Future Scheduled PNEUMOVAX >=65 (PPSV23) [facility] [employer] Test [code = PNEUMOVAX >=65 of [...] Future Scheduled CBC W/AUTO DIFF WITH Ordered: [facility] Test PLATELETS [code = 02/28/2020 of Medicin e 73623-8] Future Scheduled COMPREHENSIVE METABOLIC Ordered: [facility] Test PANEL [code = 51292-3] 02/28/2020 of Me dicine Future Scheduled MAGNESIUM [code = Ordered: [facility] Test 77201-6] 02/28/2020 of Medicine Future Scheduled TSH [code = 20582-0] Ordered: [facility] [employer] Test 02/28/2020 of Medicine Future Scheduled COLON CANCER SCREENING: [facility] Test COLONOSCOPY [code = of Medic ine COLON CANCER SCREENING: COLONOSCOPY] Future Scheduled MAMMOGRAM ANNUAL [code [facility] [employer] Test = MAMMOGRAM ANNUAL] of Medic ine Future Scheduled TETANUS SHOT (ADULT) [employer] Test [code = TETANUS SHOT of Medi cine (ADULT)] Future Scheduled BMI FOLLOW UP PLAN [employer] Test [code = BMI FOLLOW UP of Med icine PLAN] Future Scheduled HEPATITIS C SCREENING [employer] Test [code = HEPATITIS C of Medic ine SCREENING] Future Scheduled ZOSTER VACCINE (1 of 2) [facility] [employer] Test [code = ZOSTER VACCINE of [...] of Medicine Future Scheduled COLON CANCER SCREENING: [facility] [employer] Test COLONOSCOPY [code = of Medic ine COLON CANCER SCREENING: COLONOSCOPY] Future Scheduled MAMMOGRAM ANNUAL [code [employer] [facility] = MAMMOGRAM ANNUAL] of Medic ine Future Scheduled TETANUS SHOT (ADULT) [employer] Test [code = TETANUS SHOT [...] Future Scheduled CBC W/AUTO DIFF WITH Ordered: [employer] Test PLATELETS [code = 05/15/2020 of Medicin e 32079-7] Future Scheduled BASIC METABOLIC PANEL Ordered: [employer] Test [code = 90413-6] 05/15/2020 of Medicine Future Scheduled VITAMIN B12 [code = Ordered: [employer] [facility] 2132-9] 05/15/2020 of Medicine Future Scheduled COLON CANCER SCREENING: [facility] [employer] Test COLONOSCOPY [code = of Medic ine COLON CANCER SCREENING: COLONOSCOPY] Future Scheduled MAMMOGRAM ANNUAL [code [employer] [facility] = MAMMOGRAM ANNUAL] of Medic ine Future Scheduled TETANUS SHOT (ADULT) [employer] Test [code = TETANUS SHOT of Medi cine (ADULT)] Future Scheduled BMI FOLLOW UP PLAN [employer] Test [code = BMI FOLLOW UP of Med icine PLAN] Future Scheduled HEPATITIS C SCREENING [employer] Test [code = HEPATITIS C of Medic ine SCREENING] Future Scheduled ZOSTER VACCINE (1 of 2) [facility] [employer] Test [code = ZOSTER VACCINE of Me dicine (1 of 2)] Future Scheduled OSTEOPOROSIS SCREENING [employer] [facility] [code = OSTEOPOROSIS of Medi cine SCREENING] Future Scheduled PNEUMOVAX >=65 (PPSV23) [facility] [employer] Test [code = PNEUMOVAX >=65 of Me dicine (PPSV23)] Future Scheduled FLU VACCINE > 6 MONTHS [employer] Test [code = FLU VACCINE > 6 of M edicine MONTHS] Future Scheduled MEDICARE IPPE (WELCOME [facility] [employer] Test TO MEDICARE) [code = of Medi cine MEDICARE IPPE (WELCOME TO MEDICARE)] Future Scheduled FALL SCREEN [code = [employer] [facility] FALL SCREEN] of Medicine Future Scheduled COLON CANCER SCREENING: [facility] [employer] Test COLONOSCOPY [code = of Medic ine COLON CANCER SCREENING: COLONOSCOPY] Future Scheduled MAMMOGRAM ANNUAL [code [employer] Test = MAMMOGRAM ANNUAL] of Medic ine Future Scheduled TETANUS SHOT (ADULT) [employer] Test [code = TETANUS SHOT of Medi cine (ADULT)] Future Scheduled BMI FOLLOW UP PLAN [employer] Test [code = BMI FOLLOW UP of Med icine PLAN] Future Scheduled HEPATITIS C SCREENING [employer] Test [code = HEPATITIS C of Medic ine SCREENING] Future Scheduled ZOSTER VACCINE (1 of 2) [facility] [employer] Test [code = ZOSTER VACCINE of Me dicine (1 of 2)] Future Scheduled OSTEOPOROSIS SCREENING [employer] [facility] [code = OSTEOPOROSIS of Medi cine SCREENING] Future Scheduled PNEUMOVAX >=65 (PPSV23) [facility] [employer] Test [code = PNEUMOVAX >=65 of [...] of Medicine Future Scheduled COLON CANCER SCREENING: [facility] Test COLONOSCOPY [code = of Medic ine COLON CANCER SCREENING: COLONOSCOPY] Future Scheduled MAMMOGRAM ANNUAL [code [facility] [employer] Test = MAMMOGRAM ANNUAL] of Medic ine Future Scheduled TETANUS SHOT (ADULT) [employer] Test [code = TETANUS SHOT of Medi cine (ADULT)] Future Scheduled BMI FOLLOW UP PLAN [employer] Test [code = BMI FOLLOW UP of Med icine PLAN] Future Scheduled HEPATITIS C SCREENING [employer] Test [code = HEPATITIS C of Medic ine SCREENING] Future Scheduled ZOSTER VACCINE (1 of 2) [facility] [employer] Test [code = ZOSTER VACCINE of Me dicine (1 of 2)] Future Scheduled OSTEOPOROSIS SCREENING [facility] College Test [code = OSTEOPOROSIS of Medi cine SCREENING] Future Scheduled PNEUMOVAX >=65 (PPSV23) [facility] [place] [employer] Test [code = PNEUMOVAX >=65 of [...] Future Scheduled CBC W/AUTO DIFF WITH Ordered: [facility] Test PLATELETS [code = 07/27/2020 of Medicin e 88413-9] Future Scheduled COMPREHENSIVE METABOLIC Ordered: [facility] Test PANEL [code = 85886-2] 07/27/2020 of Me dicine Future Scheduled MAGNESIUM [code = Ordered: [facility] Test 79036-0] 07/27/2020 of Medicine Future Scheduled COLON CANCER SCREENING: [facility] Test COLONOSCOPY [code = of Medic ine COLON CANCER SCREENING: COLONOSCOPY] Future Scheduled COVID-19 Vaccine [facility] Test Evaluation [code = of Medici ne COVID-19 Vaccine Evaluation] Future Scheduled TETANUS SHOT (ADULT) [employer] Test [code = TETANUS SHOT of Medi cine (ADULT)] Future Scheduled HEPATITIS C SCREENING [employer] [code = HEPATITIS C of Medic ine SCREENING] Future Scheduled ZOSTER VACCINE (1 of 2) [facility] Test [code = ZOSTER VACCINE of Me [...] Medicine Future Scheduled MAMMOGRAM ANNUAL [code [employer] = MAMMOGRAM ANNUAL] of Medic ine Future Scheduled COLON CANCER SCREENING: [facility] Test COLONOSCOPY [code = of Medic ine COLON CANCER SCREENING: COLONOSCOPY] Future Scheduled COVID-19 Vaccine [facility] Test Evaluation [code = of Medici ne COVID-19 Vaccine Evaluation] Future Scheduled TETANUS SHOT (ADULT) [employer] Test [code = TETANUS SHOT [...] cine SCREENING] Future Scheduled PNEUMOVAX >=65 (PPSV23) [facility] [place] [employer] Test [code = PNEUMOVAX >=65 of [...] Medicine Future Scheduled MAMMOGRAM ANNUAL [code B [facility] [employer] Test = MAMMOGRAM ANNUAL] of Medic ine Future Scheduled COLON CANCER SCREENING: [facility] Test COLONOSCOPY [code = of Medic ine COLON CANCER SCREENING: COLONOSCOPY] Future Scheduled COVID-19 Vaccine [facility] [place] [employer] Test Evaluation [code = of Medici ne COVID-19 Vaccine Evaluation] Future Scheduled TETANUS SHOT (ADULT) [employer] Test [code = TETANUS SHOT [...] cine SCREENING] Future Scheduled PNEUMOVAX >=65 (PPSV23) [facility] [place] [employer] Test [code = PNEUMOVAX >=65 of Me dicine (PPSV23)] Future Scheduled MEDICARE IPPE (WELCOME [employer] TO MEDICARE) [code = of Medi cine MEDICARE IPPE (WELCOME TO MEDICARE)] Future Scheduled FALL SCREEN [code = [employer] FALL SCREEN] of Medicine Future Scheduled MAMMOGRAM ANNUAL [code B [facility] [employer] Test = MAMMOGRAM ANNUAL] of Medic ine Future Scheduled CT CHEST ABDOMEN PELVIS 1 Occurrences [facility] [place] [employer] Test W CONTRAST [code = [place] [address]-4] 10/26/2020 until 10/26/2021 Future Scheduled US RENAL BILATERAL 1 Occurrences [employer] Test [code = 97692] starting of Medicine 05/15/2020 until 05/15/[address] CHEST ABDOMEN PELVIS 1 Occurrences [facility] [place] [employer] Test W CONTRAST [code = [place] [address]-8] 04/27/2020 until 04/27/[address] CHEST ABDOMEN PELVIS 1 Occurrences [facility] [place] [employer] Test W CONTRAST [code = [place] [address]-5] 02/28/2020 until 02/27/2021 Encounters Start End Encounter Admission Attending Care Care Encounter Source Date/Time Date/Time Type Type Clinicians Facility Department ID 2021-12-03 Outpatient GIGITERESELeumel [facility] [id number] [place] 08:10:22 [facility] [id number] [facility] 2021-11-28 Outpatient [facility] [id number] [place] 15:34:11 [id number] [facility] 2021-11-06 Outpatient GIGITERESELemuel [facility] [id number] [place] 09:16:04 [facility] [id number] [facility] 2021-11-05 Outpatient GIGITERESELemuel [facility] [id number] [place] 07:47:43 [facility] [id number] [facility] 2021-10-30 Outpatient GIGITERESELemuel [facility] [id number] [place] 15:17:39 [facility] [id number] [facility] 2021-08-16 Outpatient ANGIE [facility] [id number] [place] 15:22:59 [facility] 2021-08-[address] ShielaNOREENEAMON [facility] [id number] [facility] 11:01:33 Juan R 82670 [facility] 2021-04-23 Inpatient FIONA, SLE Surgery [id number] [facility] 22:51:01 [place] 2021-04-23 Outpatient FIONA, SLEH Surgery [id number] [facility] 21:51:43 [place] 2022-07-21 2022-07-21 Outpatient BIRD CAMPUZANO SLE SLE [id number] [facility] 00:00:00 00:00:00 2022-07-21 2022-07-21 Outpatient BIRD CAMPUZANO SLE SLE [id number] SLEH 00:00:00 00:00:00 2022-04-30 2022-04-30 Outpatient [facility] [id number] Memoria 15:15:00 15:15:00 [place] 2022-03-19 2022-03-19 Outpatient [facility] [id number] Memoria 14:30:00 14:30:00 30 [place] 2022-03-19 2022-03-19 Outpatient [facility] [id number] Memoria 14:30:00 14:30:00 30 [facility] 2022-03-18 2022-03-18 Outpatient BIRD CAMPUZANO [facility] [id number] SLE 14:17:42 23:59:00 2022-03-18 2022-03-18 [facility] Bird Yen [facility] [id number] 11:00:00 23:59:00 Encounter [facility] 2022-03-18 2022-03-18 Surgery Kee [facility] [id number] 11:00:00 11:30:00 [facility] 2022-03-18 2022-03-18 Outpatient ROC BIRD YEN SLE Surgery [id number] SLEH 09:02:00 09:02:00 2022-03-18 2022-03-18 Hospital Frances YenCasi [facility] [id number] [id number] 09:02:00 09:02:00 Encounter [facility] 2022-02-18 2022-02-18 Office FIONA LANSaul 1.2.840.114 [id number] [facility] [place] 13:31:03 16:12:27 Visit VITA AMBULATOR 350.1.13.21 College Y 0.2.7.2.686 of [id number] [facility] khushi 300 e 2022-02-17 2022-02-17 Outside Frances YenCasi [facility] [id number] 00:00:00 00:00:00 Orders [facility] 2022-02-14 2022-02-14 Outpatient [facility] [id number] [facility] [place] 13:12:45 23:59:00 Colleg e of Medicin e 2022-02-14 2022-02-14 Office WADEFilibertoFRANCESKISHORE [facility] 1.2.840.114 [id number] [facility] [place] 10:42:48 12:25:10 Visit [place] 350.1.13.21 Co llege 0.2.7.2.686 of [id number] [facility] khushi 504 e 2022-02-05 2022-02-05 Outpatient MHIE MHIE [id number] Memoria 14:00:00 14:00:00 29 l Aleksey 2022-02-05 2022-02-05 Outpatient MHIE MHIE [id number] Memoria 14:00:00 14:00:00 29 l Aleksey 2022-02-04 2022-02-04 Outpatient BIRD YEN [facility] SLE [id number] SLE 10:31:06 23:59:00 2022-02-04 2022-02-04 [facility] Bird Yen [facility] [id number] 10:31:06 23:59:00 Encounter [facility] Seymour [facility] 2022-02-04 2022-02-04 Outpatient BIRD CAMPUZANO SLEJuanjose SLEH [id number] SLEH 10:30:58 10:30:58 2022-02-04 2022-02-04 [facility] Bird Yen janine [facility] [id number] 10:30:58 10:30:58 Encounter 1, [facility] [address] [facility] 2021-12-27 2021-12-27 Outpatient [facility] [id number] [facility] [place] 08:52:58 23:59:00 Colleg e [employer] Medicin e 2021-12-25 2021-12-25 Outpatient MHIE MHIE [id number] Memoria 14:00:00 14:00:00 28 l Alek[place] 2021-12-25 2021-12-25 Outpatient MHIE MHDOMENIC [id number] Memoria 14:00:00 14:00:00 28 [place] 2021-11-15 2021-11-15 Outpatient [facility] [id number] [facility] [place] 09:45:31 23:59:00 Colleg e of Medicin e 2021-11-15 2021-11-15 Office OMAR YEN [facility] 1.2.840.114 [id number] [facility] [place] 10:23:51 11:26:45 Visit [place] 350.1.13.21 Co llege 0.2.7.2.686 of [id number] Medi khushi 504 e 2021-11-15 2021-11-15 Outside Bird Yen [facility] [id number] 00:00:00 00:00:00 Orders [facility] 2021-10-29 2021-10-29 Outpatient BIRD CAMPUZANO SLEJuanjose SLEH [id number] SLEH 12:33:36 23:59:00 2021-10-29 2021-10-29 [facility] Bird Yen [facility] [id number] [id number] 12:33:36 23:59:00 Encounter [facility] 2021-10-29 2021-10-29 Outpatient BIRD CAMPUZANO SLE SLEH [id number] SLEH 12:33:25 23:59:00 2021-10-29 2021-10-29 [facility] Bird Yen [facility] [id number] [facility] [address] 12:33:25 23:59:00 Encounter [facility] 2021-10-22 2021-10-22 Outpatient BIRD [facility]PU[facility]ANO [facility] [id number] SLE 00:00:00 00:00:00 2021-10-22 2021-10-22 Outpatient BIRD CAMPUZANO [facility] SLE [id number] SLE 00:00:00 00:00:00 2021-10-04 2021-10-04 Outpatient [facility] [id number] [facility] [place] 09:51:39 23:59:00 Colleg e [employer] Medicin e 2021-09-24 2021-09-24 Outpatient DOMENIC BARAHONA [id number] Memoria 10:15:00 10:15:00 27 lillian [place] 2021-09-24 2021-09-24 Outpatient BROOKLYN BARAHONA [id number] Memoria 10:15:00 10:15:00 27 lillian [place] 2021-09-17 2021-09-17 Office GUILLERMINA POOLE 1.2.840.114 [id number] [facility] [place] 14:01:28 15:17:27 Visit CHRISTOPHER AMBULATOR 350.1.13.21 College Y 0.2.7.2.686 of [id number] Medi khushi 300 e 2021-08-22 2021-08-22 Outside Bird Yen [facility] [id number] 00:00:00 00:00:00 Orders [facility] 2021-08-16 2021-08-16 Outpatient [facility] [id number] [facility] [place] 11:25:49 23:59:00 Colleg e [employer] Medicin e 2021-08-16 2021-08-16 Office OMAR YEN [facility] 1.2.840.114 [id number] [facility] [place] 09:51:36 11:22:06 Visit [place] 350.1.13.21 Co llege 0.2.7.2.686 of [id number] [facility] khushi 504 e 2021-08-14 2021-08-14 Outpatient MHDOMENIC BARAHONA [id number] Memoria 16:00:00 16:00:00 26 l Alek[place] 2021-08-14 2021-08-14 Outpatient MHDOMENIC BARAHONA [id number] Memoria 16:00:00 16:00:00 26 l Alek[place] 2021-08-08 2021-08-08 Office GUILLERMINA JAIMES 1.2.840.[id number] [place] [address] 10:37:20 11:15:47 Visit [place] AMBULATOR 350.1.13.21 College Y 0.2.7.2.686 of [id number] [facility] 300 e 2021-07-29 2021-07-29 Outpatient BIRD CAMPUZANO [facility] SLEH [id number] SLEH 12:33:58 23:59:00 2021-07-29 2021-07-29 [facility] Bird Yen [facility] [id number] 12:33:58 23:59:00 [facility] 2021-07-29 2021-07-29 Outpatient BIRD CAMPUZANO [facility] SLE [id number] SLEH 12:33:51 23:59:00 2021-07-29 2021-07-29 [facility] Bird Yen [facility] [id number] 12:33:51 23:59:00 Encounter 1, [facility] [address] Room [facility] 2021-07-04 2021-07-04 Ambulatory nullFlavo MNA [id number] Memoria 20:00:00 20:00:00 Pre-Reg r Neurology 25 l Trimble Aleksey 2021-07-04 2021-07-04 Ambulatory nullFlavo MNA [id number] Memoria 20:00:00 20:00:00 Pre-Reg r Neurology 25 l Rhiannon Ryder 2021-07-04 2021-07-04 Outpatient DOMENIC BARAHONA [id number] Memoria 14:00:00 14:00:00 25 l [place] 2021-07-04 2021-07-04 Outpatient LUISA Campos MISCHER [id number] 14:00:00 14:00:00 Michael 25 Isaiah 2021-06-26 2021-06-26 Outpatient ALEC FOSS [facility] [id number] Univers 14:30:00 14:30:00 [id number] [facility] 2021-06-26 2021-06-26 Outpatient R ALEC FOSS [facility] [id number] Univers 14:30:00 14:30:00 [facility] 2021-05-23 2021-05-24 Outpatient nullFlavo MNA [id number] Memoria 15:15:00 04:59:59 r Neurology 24 l Trimble Aleksey 2021-05-23 2021-05-24 Outpatient nullFlavo MNA [id number] Memoria 15:15:00 04:59:59 r Neurology 24 l Rhiannon Ryder 2021-05-23 2021-05-23 Outpatient LUISA Campos MISCHER [id number] 10:15:00 23:59:59 Michael 24 Isaiah 2021-05-23 2021-05-23 Outpatient MHIE MHIE [id number] Memoria 10:15:00 10:15:00 24 l Aleksey 2021-05-10 2021-05-10 Outside Farshad FrancesAndreaKishore [facility] [id number] [facility] 00:00:00 00:00:00 [facility] 2021-05-08 2021-05-08 Ambulatory nullFlavo MNA [id number] Memoria 19:15:00 19:15:00 Pre-Reg r Neurology 23 l Trimble Aleksey 2021-05-08 2021-05-08 Ambulatory nullFlavo MNA [id number] Memoria 19:15:00 19:15:00 Pre-Reg r Neurology 23 l Trimbleisrael Ryder 2021-05-08 2021-05-08 Outpatient MHIE MHIE [id number] Memoria 14:15:00 14:15:00 23 l Aleksey 2021-05-08 2021-05-08 Outpatient EVERARDO CamposSCHER MHMISCHER [id number] 14:15:00 14:15:00 Michael 23 Isaiah 2021-05-07 2021-05-07 Outpatient BCM BCM [id number] [facility] [place] 15:09:13 23:59:00 Colleg e of Medicin e 2021-05-07 2021-05-07 Office OMAR YEN [facility] 1.2.840.114 [id number] [facility] [place] 14:13:49 16:00:26 Visit [place]our 350.1.13.21 Co llege 0.2.7.2.686 [facility] [id number] Medi khushi 504 e 2021-05-03 2021-05-03 Outpatient BIRD CAMPUZANO [facility] SLE [id number] SLEH 10:46:33 23:59:00 2021-05-03 2021-05-03 [facility] Bird Yen [facility] [id number] 10:46:33 23:59:00 Encounter [facility] 2021-05-03 2021-05-03 Outpatient BIRD CAMPUZANO [facility] SLE [id number] SLEH 10:46:26 23:59:00 2021-05-03 2021-05-03 [facility] Bird Yen [facility] [id number] 10:46:26 23:59:00 Encounter [facility] 2021-04-05 2021-04-05 [facility] Bird Yen [facility] [id number] 00:00:00 00:00:00 Orders [facility] 2021-03-19 2021-03-19 Outpatient BCM BCM [id number] [facility] [place] 14:16:56 23:59:00 Colleg e of Medicin e 2021-03-13 2021-03-14 Outpatient nullFlavo MNA [id number] Memoria 20:00:00 04:59:59 r Neurology 21 l Trimbleisrael Ryder 2021-03-13 2021-03-14 Outpatient nullFlavo MNA [id number] Memoria 20:00:00 04:59:59 r Neurology 21 l Trimble Aleksey 2021-03-13 2021-03-13 [id number] 15:00:00 23:59:59 Michael 21 Isaiah 2021-03-13 2021-03-13 Outpatient MHIE MHIE [id number] Memoria 15:00:00 15:00:00 21 l Aleksey 2021-02-01 2021-02-02 Outpatient nullFlavo MNA [id number] Memoria 16:30:00 04:59:59 r Neurology 22 l Rhiannon Aleksey 2021-02-01 2021-02-02 Outpatient nullFlavo MNA [id number] Memoria 16:30:00 04:59:59 r Neurology 22 l Rhiannon [place] 2021-02-01 2021-02-01 Outpatient ELMIRA CamposMISCHER MISCHER [id number] 11:30:00 23:59:59 Michael 22 Isaiah 2021-02-01 2021-02-01 Outpatient MHIE MHDOMENIC [id number] Memoria 11:30:00 11:30:00 22 l [place] 2021-01-29 2021-01-29 [facility] [id number] [facility] [place] 13:53:55 23:59:00 Colleawa becerra of Medicin e 2021-01-29 2021-01-29 Office Omar Yen [facility] 1.2.840.114 [id number] [facility] [place] 12:18:28 14:06:37 Visit Eyad Ahuja 350.1.13.21 Co llege 0.2.7.2.686 of [id number] Medi khushi 530 e 2021-01-29 2021-01-29 Office GUILLERMINA Jaimes 1.2.840.114 [id number] [facility] [place] 13:10:51 13:25:51 Visit Vita P AMBULATOR 350.1.13.21 College Y 0.2.7.2.686 of [id number] Medi khushi 300 e 2021-01-18 2021-01-18 Outpatient BIRD YEN SLE [id number] SLE 00:00:00 00:00:00 2021-01-18 2021-01-18 Outpatient BIRD CAMPUZANO SLE [id number] SLEH 00:00:00 00:00:00 2021-01-09 2021-01-10 Outpatient nullFlavo MNA [id number] Memoria 14:30:00 04:59:59 r Neurology 20 l Rhiannon Ryder 2021-01-09 2021-01-10 Outpatient nullFlavo MNA [id number] Memoria 14:30:00 04:59:59 r Neurology 20 l Rhiannon Ryder 2021-01-09 2021-01-09 Outpatient Andres [facility] [id number] 09:30:00 23:59:59 Michael 20 Isaiah 2021-01-09 2021-01-09 Outpatient BROOKLYN BARAHONA [id number] Memoria 09:30:00 09:30:00 20 l Aleksey 2020-12-18 2020-12-18 Office GUILLERMINA [place] 1.2.840.[id number] [place] [address] 14:58:39 15:08:39 Visit Christopher AMBULATOR 350.1.13.21 College P Y 0.2.7.2.686 of [id number] [facility] khushi 300 e 2020-12-18 2020-12-18 Outpatient BIRD CAMPUZANO [facility] SLE [id number] SLEH 00:00:00 00:00:00 2020-12-18 2020-12-18 Outpatient BIRD YEN SLE [id number] SLEH 00:00:00 00:00:00 2020-12-18 2020-12-18 Outpatient BIRD CAMPUZANO SLE [id number] SLEH 00:00:00 00:00:00 2020-11-15 2020-11-15 Office GUILLERMINA [place] 1.2.840.[id number] [place] [address] 10:12:07 10:22:07 Visit Christopher AMBULATOR 350.1.13.21 College P Y 0.2.7.2.686 of [id number] Medi khushi 300 e 2020-11-06 2020-11-07 Outpatient nullFlavo MNA [id number] Memoria 19:15:00 04:59:59 r Neurology 19 l Rhiannon Ryder 2020-11-06 2020-11-07 Outpatient nullFlavo MNA [id number] [facility] 19:15:00 04:59:59 r Neurology 19 l Rhiannon Ryder 2020-11-06 2020-11-06 Outpatient Andres EVERARDOHAYLIE EVERARDOHAYLIE [id number] 14:15:00 23:59:59 Michael Rodolfo Colon 2020-11-06 2020-11-06 Outpatient ELMIRAIE IE [id number] [facility] 14:15:00 14:15:00 19 l Aleksey 2020-10-26 2020-10-26 Office Omar Yen [facility] 1.2.840.114 [id number] [facility] [place] 11:30:32 13:39:35 Visit Eyad Ahuja 350.1.13.21 Co llege 0.2.7.2.686 of [id number] [facility] 530 e 2020-10-05 2020-10-05 Orders Doctor MANNY 1.2.840.114 [id number] Univers 00:00:00 00:00:00 Only Unassigned, JORGE LUIS 350.1.13.10 ity of [facility] 4.2.7.2.686 Jan as [id number] [facility] [address] 2020-10-05 2020-10-05 Orders Doctor MANNY 1.2.840.114 [id number] 00:00:00 00:00:00 Only Unassigned, JORGE LUIS 350.1.13.10 [facility] 4.2.7.2.686 [id number] 009 2020-10-04 2020-10-04 Office GUILLERMINA Jaimes 1.2.840.114 [id number] [facility] [place] 10:09:01 10:24:01 Visit [facility] AMBULATOR 350.1.13.21 College Y 0.2.7.2.686 of [id number] [facility] 300 e 2020-10-04 2020-10-04 Office GUILLERMINA [place] 1.2.840.114 [id number] [facility] [place] 10:08:44 10:18:44 Visit Adolpher AMBULATOR 350.1.13.21 College P Y 0.2.7.2.686 of [id number] [facility] khushi 300 e 2020-10-04 2020-10-04 Outpatient EL BIRD YEN [facility] [id number] SLE 00:00:00 00:00:00 2020-10-04 2020-10-04 Outpatient BIRD YEN [facility] [id number] SLE 00:00:00 00:00:00 2020-09-24 2020-09-26 Outside nullFlavo MNA [id number] Memoria 16:19:27 05:59:59 Medical r Neurology 04 l Records Rhiannon Ryder 2020-09-24 2020-09-26 Outside nullFlavo MNA [id number] [facility] 16:19:27 05:59:59 Medical r Neurology 04 l Records Rhiannon Ryder 2020-09-24 2020-09-25 Outpatient MHMISCHER MHMISCHER [id number] 10:19:27 23:59:59 04 2020-09-11 2020-09-13 Outside nullFlavo MNA [id number] [facility] 20:49:36 05:59:59 Medical r Neurology 03 l Records Rhiannon Ryder 2020-09-11 2020-09-13 Outside nullFlavo MNA [id number] [facility] 20:49:36 05:59:59 Medical r Neurology 03 l Records Rhiannon Ryder 2020-09-11 2020-09-12 Outpatient MHMISCHER MHMISCHER [id number] 14:49:36 23:59:59 2020-09-07 2020-09-07 Office GUILLERMINA [place] 1.2.840.[id number] [place] [address] 14:53:39 15:03:39 [facility] AM[facility] 350.1.13.21 College P Y 0.2.7.2.686 of [id number] [facility] khushi 300 e 2020-09-05 2020-09-06 Outpatient nullFlavo MNA [id number] Memoria 19:15:00 05:59:59 r Neurology 18 l Rhiannon Ryder 2020-09-05 2020-09-06 Outpatient nullFlavo MNA [id number] Memoria 19:15:00 05:59:59 r Neurology 18 l Rhiannon Ryder 2020-09-05 2020-09-05 [id number] 13:15:00 23:59:59 Michael 18 Isaiah 2020-09-05 2020-09-05 Ambulatory nullFlavo MNA [id number] Memoria 19:15:00 19:15:00 Pre-Reg r Neurology 17 l Rhiannon Ryder 2020-09-05 2020-09-05 Ambulatory nullFlavo MNA [id number] Memoria 19:15:00 19:15:00 Pre-Reg r Neurology 17 l Rhiannon Ryder 2020-09-05 2020-09-05 Outpatient MHIE MHIE [id number] Memoria 13:15:00 13:15:00 17 l Aleksey 2020-09-05 2020-09-05 Outpatient MHIE MHIE [id number] Memoria 13:15:00 13:15:00 18 l Aleksey 2020-09-05 2020-09-05 Outpatient EV[facility]ARDO [facility]CARLOS [id number] 13:15:00 13:15:00 Michael 17 Isaiah 2020-08-07 2020-08-09 Outside nullFlavo MNA [id number] Memoria 17:59:06 05:59:59 Medical r Neurology 02 l Records Rhiannon Ryder 2020-08-07 2020-08-09 Outside nullFlavo MNA [id number] Memoria 17:59:06 05:59:59 Medical r Neurology 02 l Records Rhiannon Ryder 2020-08-07 2020-08-08 Outpatient MHMISCHER MHMISCHER [id number] 11:59:06 23:59:59 02 2020-08-03 2020-08-03 Wheel Alignment Mechanic 2, Adc Lab [facility] 1.2.840.114 [id number] Univers 13:07:52 13:22:52 Visit Alec Foss 350.1.13.10 [facility] 4.2.7.2.686 [place] [phone] [place] dical [address] 2020-08-03 2020-08-03 Wheel Alignment Mechanic 2, Adc Lab [facility] 1.2.840.114 [id number] 13:07:52 13:22:52 Visit Wesley 350.1.13.10 [place] 4.2.7.2.686 Armando [id number] nal [address] 2020-08-03 2020-08-03 Outpatient R [facility] [id number] Univers 13:00:00 13:00:00 [id number] [facility] 2020-08-03 2020-08-03 Outpatient R ALEC FOSS [facility] [id number] Univers 13:00:00 13:00:00 [facility] 2020-08-02 2020-08-02 Outpatient R [facility] [id number] Univers 13:00:00 13:00:00 [id number] [facility] 2020-08-02 2020-08-02 Office GUILLERMINA Jaimes [id number] [facility] [place] 09:42:31 09:57:31 Visit [facility] AMBULATOR [id number] College Y 0.2.7.2.686 of [id number] [facility] khushi 300 e 2020-07-27 2020-07-27 Office Omar Yen [facility] [id number] [facility] [place] 11:15:40 12:55:05 Visit Eyad Seymour [id number] Co llege 0.2.7.2.686 of [id number] [facility] khushi 530 e 2020-07-25 2020-07-26 Outpatient nullFlavo MNA [id number] [facility] 17:15:00 05:59:59 r Neurology 16 l Trimble Aleksey 2020-07-25 2020-07-26 Outpatient nullFlavo MNA [id number] Mem[facility] 17:15:00 05:59:59 r Neurology 16 l Trimble Aleksey 2020-07-25 2020-07-25 Outpatient LUISA Campos [id number] 11:15:00 23:59:59 Michael Agrentina Colon 2020-07-25 2020-07-25 Outpatient ELMIRAIE BROOKLYN [id number] Memoria 11:15:00 11:15:00 16 l Aleksey 2020-07-19 2020-07-19 [facility] Alec Foss [facility] 1.2.840.114 [id number] Univers 10:46:59 23:59:00 Encounter Jayuya 350.1.13.10 ity of [place] 4.2.7.2.686 [facility] [id number] [facility] [address] 2020-07-19 2020-07-19 [facility] Alec Foss [facility] 1.2.840.114 8 [id number] 10:46:59 23:59:00 Encounter Jayuya 350.1.13.10 [place] [address] [place] [address] [id number] [facility] 2020-07-19 2020-07-19 [facility] ALEC FOSS [facility] [id number] Univers 14:00:00 14:00:00 [id number] ity of [facility] 2020-07-19 2020-07-19 [facility] Alec Foss [facility] 1.2.840.114 8 [id number] [facility] 10:45:33 10:45:33 Encounter Jayuya 350.1.13.10 ity of [place] 4.2.7.2.686 [facility] [id number] [facility] [address] 2020-07-19 2020-07-19 [facility] Alec Foss [facility] 1.2.840.114 8 [id number] 10:45:33 10:45:33 Encounter Jayuya 350.1.13.10 [place] 4.2.7.2.686 [place] [id number] [facility] [place] [facility] 2020-07-19 2020-07-19 [facility] Alec Foss [facility] 1.2.840.114 8 [id number] [facility] 10:45:01 10:45:01 Encounter Jayuya 350.1.13.10 ity of [place] 4.2.7.2.686 [facility] [id number] [address] 2020-07-19 2020-07-19 [facility] Alec Foss [facility] 1.2.840.114 8 [id number] 10:45:01 10:45:01 Encounter Jayuya 350.1.13.10 [place] 4.[address]7.[address] [place] [address] [id number] [facility] 2020-07-19 2020-07-19 Outpatient ALEC MOSER [facility] [id number] Univers 00:00:00 00:00:00 ity [facility] 2020-07-19 2020-07-19 Orders Doctor MANNY Bustos2.840.114 [id number] Univers 00:00:00 00:00:00 Only Unassigned, JORGE LUIS 350.1.13.10 ity of [place] [facility] 4.2.7.2.686 Jan as [phone] [address] 2020-07-19 2020-07-19 Orders Doctor MANNY Dey.2.840.114 [id number] 00:00:00 00:00:00 Only Unassigned, JORGE LUIS 350.1.13.10 [place] [facility] 4.2.7.2.686 [id number] 2020-07-17 2020-07-17 Outpatient BIRD YEN [facility] 901 [id number] SLE 00:00:00 00:00:00 2020-07-17 2020-07-17 Outpatient EL BIRD YEN [facility] [id number] SLE 00:00:00 00:00:00 2020-06-25 2020-06-25 Outpatient ALEC MOSER [facility] [id number] Univers 14:00:00 14:00:00 ity [facility] 2020-06-25 2020-06-25 Orders Doctor MANNY Bustos2.840.114 [id number] [facility] 00:00:00 00:00:00 Only Unassigned, JORGE LUIS 350.1.13.10 ity of [place] [facility] 4.2.7.2.686 Jan as [phone] [address] 2020-06-25 2020-06-25 Orders Doctor MANNY Bustos2.840.114 [id number] 00:00:00 00:00:00 Only Unassigned, JORGE LUIS 350.1.13.10 [place] [facility] 4.2.7.2.686 [id number] 009 2020-06-21 2020-06-22 Outpatient nullFlavo MNA [id number] Memoria 19:45:00 05:59:59 r Neurology 15 l Rhiannon Ryder 2020-06-21 2020-06-22 Outpatient nullFlavo MNA [id number] Memoria 19:45:00 05:59:59 r Neurology 15 l Rhiannon Smithann 2020-06-21 2020-06-[address] [facility] [id number] 13:45:00 23:59:59 Michael Stefani Colon 2020-06-21 2020-06-21 Outpatient MHIE [facility] [id number] Memoria 13:45:00 13:45:00 15 lillian SmithAleksey 2020-06-07 2020-06-07 Office Fiona, [place] 1.2.840.114 [id number] 08:15:55 08:30:55 Visit Vita P AMBULATOR 350.1.13.21 Y 0.2.7.2.686 [id number] 300 2020-06-07 2020-06-07 Office Fiona, [place] 1.2.840.[id number] [place] [address] 08:15:55 08:30:55 Visit Vita P AMBULATOR 350.1.13.21 College Y 0.2.7.2.686 of [id number] [facility] khushi 300 e 2020-05-15 2020-05-15 Office Fiona, [facility] 1.2.840.114 [id number] 14:31:10 15:54:25 Visit Vita P AMBULATOR 350.1.13.21 Y 0.2.7.2.686 [id number] 300 2020-05-15 2020-05-15 Office Fiona, [facility] 1.2.840.[id number] [place] [address] 14:31:10 15:54:25 Visit Vita P AMBULATOR 350.1.13.21 College Y 0.2.7.2.686 of [id number] [facility] khushi 300 e 2020-05-10 2020-05-11 Outpatient nullFlavo MNA [id number] Memoria 18:45:00 04:59:59 r Neurology 14 l Trimbleisrael Smithann 2020-05-10 2020-05-11 Outpatient nullFlavo MNA [id number] Memoria 18:45:00 04:59:59 r Neurology 14 l Rhiannon Ryder 2020-05-10 2020-05-10 [facility] [id number] 13:45:00 23:59:59 Michael 14 Isaiah 2020-05-10 2020-05-10 Outpatient [facility] [id number] Memoria 13:45:00 13:45:00 14 lillian Ryder 2020-04-27 2020-04-27 Office [facility] 1.2.840.114 [id number] 14:24:21 15:32:04 Visit Robjanine Seymour 350.1.13.21 0.2.7.2.686 [id number] [facility] 2020-04-27 2020-04-27 Office Omar Yen [facility] 1.2.840.114 [id number] [facility] [place] 14:24:21 15:32:04 Visit Robjanine Seymour 350.1.13.21 Co llege 0.2.7.2.686 of [id number] [facility] 530 e 2020-04-25 2020-04-25 Outpatient YEN, [facility] [id number] [facility] 00:00:00 00:00:00 2020-04-25 2020-04-25 Outpatient EL YEN, [facility] [id number] [facility] 00:00:00 00:00:00 2020-04-05 2020-04-05 Outpatient YEN, [facility] [id number] [facility] 00:00:00 00:00:00 2020-04-05 2020-04-05 Outpatient EL YEN, [facility] [id number] [facility] 00:00:00 00:00:00 2020-03-27 2020-03-27 Outpatient YEN, [facility] [id number] [facility] 00:00:00 00:00:00 2020-03-27 2020-03-27 Outpatient EL YEN, [facility] [id number] [facility] 00:00:00 00:00:00 2020-03-27 2020-03-27 Outpatient EL YEN, [facility] [id number] [facility] 00:00:00 00:00:00 2020-03-27 2020-03-27 Outpatient YEN, [facility] [id number] [facility] 00:00:00 00:00:00 2020-02-28 2020-02-28 Office FarshadOmar [facility] 1.2.840.114 [id number] 11:09:47 12:43:20 Visit Edjanine Seymour 350.1.13.21 0.2.7.2.686 [id number] 530 2020-02-28 2020-02-28 Office Omar Yen [facility] 1.2.840.114 [id number] [id number] [facility] [place] 11:09:47 12:43:20 Visit Edjanine Seymour 350.1.13.21 Co llege 0.2.7.2.686 of [id number] Medi khushi 530 e 2020-02-21 2020-02-21 Office GUILLERMINA Jaimes 1.2.840.114 [id number] 15:30:00 15:45:00 Visit Vita P AMBULATOR 350.1.13.21 Y 0.2.7.2.686 [id number] 300 2020-02-21 2020-02-21 Office GUILLERMINA Jaimes 1.2.840.[id number] [place] [address] 15:30:00 15:45:00 Visit Vita P AMBULATOR 350.1.13.21 College Y 0.2.7.2.686 of [id number] Medi khushi 300 e 2020-01-27 2020-01-27 Outpatient [facility] [id number] [address] [place] [address] 00:00:00 00:00:00 2020-01-17 2020-01-17 Office Nestor Fuentes [facility] 1.2.840. 114 [id number] 08:19:54 08:49:54 Visit C-Arm, Pmr Siemens AMBULATOR 350.1.13. 21 Y 0.2.7.2.686 [id number] 800 2020-01-17 2020-01-17 Office Nestor Fuentes Saul 1.2.840. 114 [id number] [facility] [place] 08:19:54 08:49:54 Visit C-Arm, Pmr Siemens AMBULATOR 350.1.13. 21 College Y 0.2.7.2.686 of [id number] Medi khushi 800 e 2020-01-17 2020-01-17 Outpatient EL [facility] [id number] [facility] 00:00:00 00:00:00 2020-01-10 2020-01-10 Office Omar Yen [facility] 1.2.840.114 [id number] 09:17:20 10:09:32 Visit Edward Seymour 350.1.13.21 0.2.7.2.686 [id number] 530 2020-01-10 2020-01-10 Office FarshadFranceskishore [facility] 1.2.840.114 [id number] [facility] [place] 09:17:20 10:09:32 Visit Edward Seymour 350.1.13.21 Co llege 0.2.7.2.686 of [id number] Medi [facility] 530 e 2020-01-06 2020-01-06 Ancillary 1.2.840.2 [id number] [facility] [place] 15:34:38 19:30:50 Procedure 48530.1.1 Co llege 3.210.2.7 of .3.963114 Medici n .8 e 2020-01-06 2020-01-06 Office Giancarlo Doherty 1.2.840.7 [id number] [facility] [place] 12:54:16 17:06:02 Visit 53301.1.1 Shanel ege 3.210.2.7 of .3.857815 Medici n .8 e 2020-01-06 2020-01-06 Office Giancarlo Doherty [facility] 1.2.840.114 [id number] 12:54:16 15:16:58 Visit AMBULATOR 350.1.13.21 Y 0.2.7.2.686 [id number] 800 2020-01-06 2020-01-06 Telephone Omar Yen 1.2.840.6 [id number] [facility] [place] 00:00:00 00:00:00 Edward 88095.1.1 Shanel ege 3.210.2.7 of .3.541853 Medici n .8 e 2020-01-06 2020-01-06 Abstract Giancarlo Doherty 1.2.840.4 [id number] [facility] [place] 00:00:00 00:00:00 90155.1.1 Shanel ege 3.210.2.7 of .3.667644 Medici n .8 e 2020-01-06 2020-01-06 Abstract Giancarlo Doherty 1.2.840.2 [id number] [facility] [place] 00:00:00 00:00:00 04881.1.1 Shanel ege 3.210.2.7 of .3.732087 Medici n .8 e 2020-01-06 2020-01-06 Travel 1.2.840.1 1.2.952.150 2156 [id number] [facility] [place] 00:00:00 00:00:00 08553.1.1 350.1.13.21 College 3.210.2.7 0.2.7.3.698 of .3.026176 084.8 Medici n .8 e 2020-01-06 2020-01-06 Telephone Fiona, 1.2.840.1 [id number] [id number] [facility] [place] 00:00:00 00:00:00 Vita P 30518.1.1 Shanel ege 3.210.2.7 of .3.414225 Medici n .8 e 2020-01-05 2020-01-05 Telephone Fiona, 1.2.840.5 [id number] [id number] [facility] [place] 00:00:00 00:00:00 Vita P 02762.1.1 Shanel ege 3.210.2.7 of .3.549834 Medici n .8 e 2020-01-05 2020-01-05 Orders Fiona, 1.2.840.2 [id number] [facility] [place] 00:00:00 00:00:00 Only Vita P 15264.1.1 Shanel ege 3.210.2.7 of .3.711394 Medici n .8 e 2020-01-04 2020-01-04 Travel 1.2.840.1 1.2.048.974 [id number] [id number] [facility] [place] 00:00:00 00:00:00 33706.1.1 350.1.13.21 College 3.210.2.7 0.2.7.3.698 of .3.597556 084.8 Medici n .8 e 2019-12-29 2019-12-29 Abstract Fiona, 1.2.840.0 [id number] [facility] [place] 00:00:00 00:00:00 Vita P 31359.1.1 Shanel ege 3.210.2.7 of .3.133698 Medici n .8 e 2019-12-29 2019-12-29 Abstract Fiona, 1.2.840.3 [id number] [facility] [place] 00:00:00 00:00:00 Vita P 56668.1.1 Shanel ege 3.210.2.7 of .3.330833 Medici n .8 e 2019-12-27 2019-12-27 Outpatient WADEBIRD De Los Santos [facility] [id number] SLE 00:00:00 00:00:00 2019-12-27 2019-12-27 Outpatient EL FARSHADBIRD [facility] [id number] SLE 00:00:00 00:00:00 2019-12-23 2019-12-23 Telephone Omar Yen 1.2.840.5 [id number] [facility] [place] 00:00:00 00:00:00 Edward 31892.1.1 Shanel ege 3.210.2.7 of .3.540393 Medici n .8 e 2019-12-20 2019-12-20 Hospital 13, [facility] 1.2.840.1 [id number] [facility] [place] 09:51:46 23:59:00 Encounter Chair 86383.1.1 Co llege 3.210.2.7 of .3.911966 Medici n .8 e 2019-12-20 2019-12-20 Office YeOmar de los santos 1.2.840.4 [id number] [facility] [place] 08:33:43 10:00:25 Visit Edward 87622.1.1 Shanel ege 3.210.2.7 of .3.841655 Medici n .8 e 2019-12-20 2019-12-20 Travel 1.2.840.1 1.2.101.078 [id number] [facility] [place] 00:00:00 00:00:00 97615.1.1 350.1.13.21 College 3.210.2.7 0.2.7.3.698 of .3.296287 084.8 Medici n .8 e 2019-12-20 2019-12-20 Omar Deluca 1.2.840.7 [id number] [facility] [place] 00:00:00 00:00:00 Only Eyad 10085.1.1 Shanel ege 3.210.2.7 of .3.789923 Medici n .8 e 2019-12-19 2019-12-19 Ancillary 1.2.840.8 [id number] 756 [id number] [facility] [place] 07:37:46 10:52:13 Procedure 34471.1.1 Co llege 3.210.2.7 of .3.350879 Medici n .8 e 2019-12-13 2019-12-19 Office Uzma, 1.2.840.3 [id number] 754 [id number] [facility] [place] 13:53:26 09:40:45 Visit Shun 80032.1.1 Shanel ege 3.210.2.7 of .3.845843 Medici n .8 e 2019-12-19 2019-12-19 Ancillary 1.2.840.9 [id number] 756 [id number] [facility] [place] 07:37:33 09:27:36 Procedure 82543.1.1 Co llege 3.210.2.7 of .3.219899 Medici n .8 e 2019-12-19 2019-12-19 Travel 1.2.840.1 1.2.345.588 [id number] [id number] [facility] [place] 00:00:00 00:00:00 25623.1.1 350.1.13.21 College 3.210.2.7 0.2.7.3.698 of .3.925945 084.8 Medici n .8 e 2019-12-16 2019-12-16 Telephone Devlin, 1.2.840.6 [id number] 756 [id number] [facility] [place] 00:00:00 00:00:00 Manny Garcian 57423.1.1 Co llege 3.210.2.7 of .3.318304 Medici n .8 e 2019-12-13 2019-12-13 Office GUILLERMINA Gusman 1.2.592.860 4115 [id number] 13:53:26 14:53:26 Visit Shun AMBULATOR 350.1.13.21 Y 0.2.7.2.686 [id number] 800 2019-12-13 2019-12-13 Office Frandy BCSaul 1.2.840.114 [id number] 10:03:47 13:58:12 Visit Manny Leos AMBULATOR 350.1.13.21 Y 0.2.7.2.686 [id number] 375 2019-12-13 2019-12-13 Office Frandy, 1.2.840.4 [id number] [facility] [place] 10:03:47 13:58:12 Visit Manny Leos 59856.1.1 Co llege 3.210.2.7 of .3.192606 Medici n .8 e 2019-12-13 2019-12-13 Travel 1.2.840.1 1.2.589.090 3300 6204 [facility] [place] 00:00:00 00:00:00 57271.1.1 350.1.13.21 College 3.210.2.7 0.2.7.3.698 of .3.282498 084.8 Medici n .8 e 2019-12-08 2019-12-08 Telephone Devlin, 1.2.840.8 [id number] 755 [id number] [facility] [place] 00:00:00 00:00:00 Manny Garcian 71500.1.1 Co llege 3.210.2.7 of .3.797858 Medici n .8 e 2019-12-06 2019-12-06 Hospital 13, [facility] 1.2.840.0 [id number] [id number] [facility] [place] 10:00:00 23:59:00 Encounter Chair 22470.1.1 Co llege 3.210.2.7 of .3.847690 Medici n .8 e 2019-12-06 2019-12-06 Office Omar Yen 1.2.840.3 [id number] [facility] [place] 09:04:35 13:25:56 Visit Edjanine 13426.1.1 Shanel ege 3.210.2.7 of .3.332564 Medici n .8 e 2019-12-06 2019-12-06 Office Omar Yen [facility] 1.2.840.114 [id number] [id number] 09:04:35 09:37:30 Visit Edjanine Seymour 350.1.13.21 0.2.7.2.686 [id number] 530 2019-12-06 2019-12-06 Travel 1.2.840.1 1.2.263.775 0108 [id number] [facility] [place] 00:00:00 00:00:00 66556.1.1 350.1.13.21 College 3.210.2.7 0.2.7.3.698 of .3.825328 084.8 Medici n .8 e 2019-12-02 2019-12-02 Telephone Fiona, 1.2.840.3 [id number] [id number] [facility] [place] 00:00:00 00:00:00 Vita P 85309.1.1 Shanel ege 3.210.2.7 of .3.058215 Medici n .8 e 2019-11-28 2019-11-30 Outside nullFlavo MNA [id number] Memoria 13:59:25 04:59:59 Medical r Neurology 01 l Records [facility] 2019-11-28 2019-11-30 Outside nullFlavo MNA [id number] Memoria 13:59:25 04:59:59 Medical r Neurology 01 l Records [facility] 2019-11-28 2019-11-29 Outpatient MHMISCHER MHMISCHER [id number] 08:59:25 23:59:59 2019-11-29 2019-11-29 Telephone Fiona, 1.2.840.6 [id number] [id number] [facility] [place] 00:00:00 00:00:00 Vita P 67133.1.1 Shanel ege 3.210.2.7 of .3.951214 Medici n .8 e 2019-11-29 2019-11-29 Telephone Fiona, 1.2.840.2 [id number] 753 [id number] [facility] [place] 00:00:00 00:00:00 Vita P 39726.1.1 Shanel ege 3.210.2.7 of .3.351444 Medici n .8 e 2019-11-28 2019-11-28 Telephone Fiona, 1.2.840.2 [id number] 753 [id number] [facility] [place] 00:00:00 00:00:00 Vita P 92459.1.1 Shanel ege 3.210.2.7 of .3.000196 Medici n .8 e 2019-11-22 2019-11-22 [facility] 13, [facility] 1.2.840.5 [id number] [id number] [facility] [place] 10:00:00 23:59:00 Encounter Chair 16697.1.1 Co llege 3.210.2.7 of .3.876092 Medici n .8 e 2019-11-22 2019-11-22 Office Omar Yen 1.2.840.3 [id number] [facility] [place] 08:40:10 11:15:19 Visit Edward 23142.1.1 Shanel ege 3.210.2.7 of .3.288229 Medici n .8 e 2019-11-22 2019-11-22 Office Omar Yen [facility] 1.2.840.114 [id number] 08:40:10 09:00:10 Visit Edjanine Seymour 350.1.13.21 0.2.7.2.686 [id number] 530 2019-11-22 2019-11-22 Travel 1.2.840.1 1.2.628.952 9308 [id number] [facility] [place] 00:00:00 00:00:00 69046.1.1 350.1.13.21 College 3.210.2.7 0.2.7.3.698 of .3.274395 084.8 Medici n .8 e 2019-11-08 2019-11-08 [facility] 13, [facility] 1.2.840.7 [id number] [facility] [place] 10:00:00 23:59:00 Encounter Chair 54831.1.1 Co llege 3.210.2.7 of .3.031057 Medici n .8 e 2019-11-08 2019-11-08 Office FarshadGabriellea [facility] 1.2.840.114 [id number] 09:01:33 10:15:07 Visit E Seymour 350.1.13.21 0.2.7.2.686 [id number] 530 2019-11-08 2019-11-08 Office Omar Yen 1.2.840.1 [id number] [facility] [place] 09:01:33 10:15:07 Visit Edward 36103.1.1 Shanel ege 3.210.2.7 of .3.473767 Medici n .8 e 2019-11-08 2019-11-08 Travel 1.2.840.1 1.2.387.037 1357 2028 [facility] [place] 00:00:00 00:00:00 99533.1.1 350.1.13.21 College 3.210.2.7 0.2.7.3.698 of .3.621714 084.8 Medici n .8 e 2019-11-01 2019-11-01 Outpatient [facility] [id number] 3-2 [facility] 00:00:00 00:00:00 [id number] 2019-11-01 2019-11-01 Orders Alayon, 1.2.840.1 [id number] [facility] [place] 00:00:00 00:00:00 Only [facility] M 27659.1.1 Co llege 3.210.2.7 of .3.107138 Medici n .8 e 2019-10-31 2019-10-31 Orders Rychlec, 1.2.840.1 [id number] [id number] [facility] [place] 00:00:00 00:00:00 Only Kayleigh 57889.1.1 Shanel ege 3.210.2.7 of .3.134855 Medici n .8 e 2019-10-31 2019-10-31 Telephone Omar Yen 1.2.840.3 [id number] [facility] [place] 00:00:00 00:00:00 Edward 93841.1.1 Shanel ege 3.210.2.7 of .3.551345 Medici n .8 e 2019-10-27 2019-10-27 Outpatient [facility] [id number] 3-2 [facility] 12:42:06 23:59:00 [id number] 2019-10-27 2019-10-27 Orders Fiona, 1.2.840.4 [id number] [facility] [place] 00:00:00 00:00:00 Only Vita P 72115.1.1 Shanel ege 3.210.2.7 of .3.833464 Medici n .8 e 2019-10-26 2019-10-26 Telephone Omar Yen 1.2.840.0 [id number] [facility] [place] 00:00:00 00:00:00 Edward 69562.1.1 Shanel ege 3.210.2.7 of .3.097623 Medici n .8 e 2019-10-26 2019-10-26 Telephone Omar Yen 1.2.840.9 [id number] [facility] [place] 00:00:00 00:00:00 Edward 38712.1.1 Shanel ege 3.210.2.7 of .3.815502 Medici n .8 e 2019-10-25 2019-10-25 Office Omar Yen 1.2.840.1 [id number] [facility] [place] 12:05:50 14:39:35 Visit Edward 45719.1.1 Shanel ege 3.210.2.7 of .3.856100 Medici n .8 e 2019-10-25 2019-10-25 Office Bird Yen [facility] 1.2.840.114 [id number] 12:05:50 13:31:23 Visit E Seymour 350.1.13.21 0.2.7.2.686 [id number] 530 2019-10-25 2019-10-25 Travel 1.2.840.1 1.2.165.252 0110 [id number] [facility] [place] 00:00:00 00:00:00 54152.1.1 350.1.13.21 College 3.210.2.7 0.2.7.3.698 of .3.622857 084.8 Medici n .8 e 2019-10-24 2019-10-24 Telephone Fiona, 1.2.840.7 [id number] [id number] [facility] [place] 00:00:00 00:00:00 Vita P 58076.1.1 Shanel ege 3.210.2.7 of .3.892697 Medici n .8 e 2019-10-20 2019-10-21 Clinical Fiona, 1.2.840.1 [id number] [facility] [place] 11:45:00 11:15:55 Support Vita P 82736.1.1 Shanel ege 3.210.2.7 of .3.783761 Medici n .8 e 2019-10-21 2019-10-21 [facility] [id number] [facility] 10:33:00 10:33:00 t Specialty/U Sp viridiana Specialty rology - [facility] 2019-10-21 2019-10-21 Telephone Fiona, 1.2.840.0 [id number] [facility] [place] 00:00:00 00:00:00 Vita P 33824.1.1 Shanel ege 3.210.2.7 of .3.549266 Medici n .8 e 2019-10-21 2019-10-21 Telephone Fiona, 1.2.840.2 [id number] [facility] [place] 00:00:00 00:00:00 Vita P 75059.1.1 Shanel ege 3.210.2.7 of .3.090381 Medici n .8 e 2019-10-21 2019-10-21 Telephone Farshad Omar 1.2.840.3 [id number] [facility] [place] 00:00:00 00:00:00 Edward 42631.1.1 Shanel ege 3.210.2.7 of .3.891039 Medici n .8 e 2019-10-19 2019-10-20 Outpatient nullFlavo MNA [id number] [facility] 20:30:00 04:59:59 r Neurology 13 l Trimble Aleksey 2019-10-19 2019-10-20 Outpatient nullFlavo MNA [id number] [facility] 20:30:00 04:59:59 r Neurology 13 lillian Smithann 2019-10-19 2019-10-19 [id number] 15:30:00 23:59:59 Michael Jeremy Colon 2019-10-19 2019-10-19 Outpatient [facility] [place] [id number] [facility] 15:30:00 15:30:00 13 lillian Aleksey 2019-10-19 2019-10-19 Telephone Fiona, 1.2.840.0 [id number] [facility] [place] 00:00:00 00:00:00 Vita P 96261.1.1 Shanel ege 3.210.2.7 of .3.594389 Medici n .8 e 2019-10-18 2019-10-18 Orders Fiona, 1.2.840.9 [id number] [facility] [place] 00:00:00 00:00:00 Only Vita P 09131.1.1 Shanel ege 3.210.2.7 of .3.585852 Medici n .8 e 2019-10-18 2019-10-18 Telephone Fiona, 1.2.840.4 [id number] [facility] [place] 00:00:00 00:00:00 Vita P 34964.1.1 Shanel ege 3.210.2.7 of .3.477498 Medici n .8 e 2019-10-17 2019-10-17 Telephone Fiona, 1.2.840.7 [id number] [facility] [place] 00:00:00 00:00:00 Vita P 46811.1.1 Shanel ege 3.210.2.7 of .3.062314 Medici n .8 e 2019-10-14 2019-10-14 Outpatient [facility] [id number] 3-2 [facility] 06:14:00 06:14:00 [id number] 2019-10-14 2019-10-14 Orders Fiona, 1.2.840.6 [id number] [facility] [place] 00:00:00 00:00:00 Only Vita P 93153.1.1 Shanel ege 3.210.2.7 of .3.160018 Medici n .8 e 2019-10-14 2019-10-14 Telephone Fiona, 1.2.840.9 [id number] [facility] [place] 00:00:00 00:00:00 Vita P 76683.1.1 Shanel ege 3.210.2.7 of .3.508956 Medici n .8 e 2019-10-14 2019-10-14 Abstract Fiona, 1.2.840.6 [id number] [facility] [place] 00:00:00 00:00:00 Vita P 80026.1.1 Shanel ege 3.210.2.7 of .3.253266 Medici n .8 e 2019-10-13 2019-10-13 Telephone Fiona, 1.2.840.5 [id number] [facility] [place] 00:00:00 00:00:00 Vita P 27805.1.1 Shanel ege 3.210.2.7 of .3.969563 Medici n .8 e 2019-10-13 2019-10-13 Abstract Fiona, 1.2.840.6 [id number] [facility] [place] 00:00:00 00:00:00 Vita P 86694.1.1 Shanel ege 3.210.2.7 of .3.103121 Medici n .8 e 2019-10-12 2019-10-12 Outpatient [facility] [id number] [id number] [facility] 00:00:00 00:00:00 [id number] 2019-10-10 Outpatient [facility] [id number] 3-2 [facility] 00:00:00 00:00:00 [id number] 2019-10-10 Telephone Fiona, 1.2.840.7 [id number] [facility] [place] 00:00:00 00:00:00 Vita P 19352.1.1 Shanel ege 3.210.2.7 of .3.745638 Medici n .8 e 2019-10-04 2019-10-04 Office GUILLERMINA Jaimes 1.2.840.114 [id number] 15:02:08 15:36:29 Visit Vita P AMBULATOR 350.1.13.21 Y 0.2.7.2.686 [id number] 300 2019-10-04 2019-10-04 Office GUILLERMINA Jaimes 1.2.840.114 [id number] [facility] [place] 15:02:08 15:36:29 Visit Vita P AMBULATOR 350.1.13.21 College Y 0.2.7.2.686 of [id number] [facility] 300 e 2019-09-21 2019-09-21 [facility] [id number] Common 15:44:00 15:44:00 t Specialty/U Sp viridiana Specialty rology - [facility]Urology Clinic [facility] 2019-09-15 2019-09-16 Outpatient nullFlavo MNA [id number] Memoria 22:00:00 05:59:59 r Neurology 12 l [place] 2019-09-15 2019-09-16 Outpatient nullFlavo MNA [id number] Memoria 22:00:00 05:59:59 r Neurology 12 l [place] 2019-09-15 2019-09-15 Outpatient ELMIRA CamposILSCHER MHMISCHER [id number] 16:00:00 23:59:59 Michael Gali Isaiah 2019-09-15 2019-09-15 Outpatient MHIE MHIE [id number] Memoria 16:00:00 16:00:00 12 [place] 2019-09-13 2019-09-13 [facility] [id number] Common 13:15:00 13:15:00 t Specialty/U Sp viridiana Specialty rology - [facility]Urology Clinic [facility] 2019-08-18 2019-08-19 Outpatient nullFlavo MNA [id number] Memoria 20:45:00 05:59:59 r Neurology 10 l [place] 2019-08-18 2019-08-19 Outpatient nullFlavo MNA [id number] Memoria 20:45:00 05:59:59 r Neurology 10 l [place] 2019-08-18 2019-08-18 Outpatient ELMIRA CamposMISCHER MHMISCHER [id number] 14:45:00 23:59:59 Michael Grabiel Isaiah 2019-08-18 2019-08-18 Outpatient MHIE MHIE [id number] Memoria 14:45:00 14:45:00 10 lillian Aleksey 2019-07-22 2019-07-23 Outpatient nullFlavo MNA [id number] Memoria 15:15:00 05:59:59 r Neurology 11 lillian Jurado Aleksey 2019-07-22 2019-07-23 Outpatient nullFlavo MNA [id number] Memoria 15:15:00 05:59:59 r Neurology 11 lillian Jurado [place] 2019-07-22 2019-07-22 [id number] 09:15:00 23:59:59 Michael 11 Isaiah 2019-07-22 2019-07-22 Outpatient MHIE MHIE [id number] Memoria 09:15:00 09:15:00 11 lillian [place] 2019-07-07 2019-07-08 Outpatient nullFlavo MNA [id number] Memoria 20:45:00 05:59:59 [facility] [place] [facility] 2019-07-08 Outpatient nullFlavo MNA [id number] Memoria 20:45:00 05:59:59 r Neurology 09 lillian [place] 2019-07-07 2019-07-07 Out[facility] [id number] 14:45:00 23:59:59 Michael 09 Isaiah 2019-07-07 2019-07-07 Outpatient MHIE MHIE [id number] Memoria 14:45:00 14:45:00 09 [facility] 2019-03-03 2019-03-04 Outpatient nullFlavo MNA [id number] Memoria 20:15:00 04:59:59 [facility] [place] 2019-03-03 2019-03-04 Outpatient nullFlavo MNA [id number] Memoria 20:15:00 04:59:59 [facility] [place] 2019-03-03 2019-03-03 Outpatient EVERARDO CamposSCHER MISCHER [id number] 15:15:00 23:59:59 Michael 08 Isaiah 2019-03-03 2019-03-03 Outpatient MHIE MHIE [id number] Memoria 15:15:00 15:15:00 08 lillian [place] 2019-02-02 2019-02-03 Outpatient nullFlavo MNA [id number] Memoria 20:15:00 04:59:59 r Neurology 07 lillian Jurado Aleksey 2019-02-02 2019-02-03 Outpatient nullFlavo MNA [id number] Memoria 20:15:00 04:59:59 r Neurology 07 l Rhiannon Aleksey 2019-02-02 2019-02-02 [facility] [id number] 15:15:00 23:59:59 Imchaelkamari Colon 2019-02-02 2019-02-02 Outpatient MHIE MHIE [id number] Memoria 15:15:00 15:15:00 07 lillian [place] 2018-12-17 2018-12-18 Outpatient nullFlavo MNA [id number] Memoria 20:30:00 04:59:59 r Neurology 06 lillian Jurado [place] 2018-12-17 2018-12-18 Outpatient nullFlavo MNA [id number] Memoria 20:30:00 04:59:59 r Neurology 06 lillian Jurado [place] 2018-12-17 2018-12-17 [facility] [id number] 15:30:00 23:59:59 Michael 06 Isaiah 2018-12-17 2018-12-17 Outpatient MHIE MHIE [id number] Memoria 15:30:00 15:30:00 06 lillian Aleksey 2018-12-03 2018-12-03 Ambulatory nullFlavo MNA [id number] Memoria 18:30:00 18:30:00 Pre-Reg r Neurology 05 lillian Jurado [place] 2018-12-03 2018-12-03 Ambulatory nullFlavo MNA [id number] Memoria 18:30:00 18:30:00 Pre-Reg r Neurology 05 lillian [place] 2018-12-03 2018-12-03 Outpatient MHIE MHIE [id number] Memoria 13:30:00 13:30:00 Juanis snyder [place] 2018-12-03 2018-12-03 [facility] [id number] 13:30:00 13:30:00 Michael Juanis Isaiah 2018-07-30 2018-07-31 Outpatient nullFlavo MNA [id number] Memoria 19:00:00 05:59:59 r Neurology 04 l Rhiannon Ryder 2018-07-30 2018-07-31 Outpatient nullFlavo MNA [id number] Memoria 19:00:00 05:59:59 r Neurology 04 l Rhiannon Ryder 2018-07-30 2018-07-30 Outpatient [facility] [id number] 13:00:00 23:59:59 Michael Connie Colon 2018-07-30 2018-07-30 Outpatient MHIE MHIE [id number] [facility] 13:00:00 13:00:00 04 lillian Ryder 2018-07-08 2018-07-10 Phone nullFlavo MNA [id number] Memoria 16:46:00 05:59:59 Message r Neurology 00 l Rhiannon Ryder 2018-07-08 2018-07-10 Phone nullFlavo MNA [id number] Memoria 16:46:00 05:59:59 Message r Neurology 00 l Rhiannon Ryder 2018-07-08 2018-07-09 Outpatient MHILSCHER MHMISCHER [id number] 10:46:00 23:59:59 00 2018-06-18 2018-06-19 Outpatient nullFlavo MNA [id number] Memoria 19:15:00 05:59:59 r Neurology 03 l Rhiannon Ryder 2018-06-18 2018-06-19 Outpatient nullFlavo MNA [id number] Memoria 19:15:00 05:59:59 r Neurology 03 lillian Ryder 2018-06-18 2018-06-18 [facility] [id number] 13:15:00 23:59:59 Michael Jessica Colon 2018-06-18 2018-06-18 Outpatient MHIE MHIE [id number] Memoria 13:15:00 13:15:00 03 lillian Aleksey 2018-04-01 2018-04-01 Outpatient MHIE MHIE [id number] [facility]oria 14:15:00 14:15:00 02 lillian Aleksey 2018-04-01 2018-04-01 Outpatient MHIE MHIE [id number] Memoria 14:15:00 14:15:00 02 lillian Aleksey 2017-12-31 2017-12-31 Outpatient MHIE MHIE [id number] [facility]oria 13:15:00 13:15:00 01 lillian Ryder 2017-12-31 2017-12-31 Outpatient DOMENIC IE [id number] [facility] 13:15:00 13:15:00 01 lillian Ryder 2017-09-01 2017-09-01 Outpatient BROOKLYN BARAHONA [id number] [facility] 13:15:00 13:15:00 00 lillian Ryder 2017-09-01 2017-09-01 Outpatient DOMENIC DOMENIC [id number] [facility] 13:15:00 13:15:00 00 lillian Ryder Results Test Description Test Time Test Comments Results Result [facility] e Comments ANG, CV ACCESS, 2022-03-20 Reason for FLUORO 15:46:00 Exam:->Malignant neoplasm of overlapping sites [facility] : 1945 Sex: F *FINAL REPORT Right Chest Port-A-Cath removal. History: Malignant neoplasm of overlapping sites of bladder, Port-A-Cath in place Modality: None. Sedation: No sedation. Vital signs were monitored throughout the procedure by a nurse, and remained stable. Physician intra-service time was 35 minutes. Hot Dip Plating Supervisor: Meño Alfaro MD. Approach: Right anterior chest. Estimated blood loss: < 5 cc. Specimen: None. Technique: The procedure including risks and benefits were explained to the patient, who expressed understanding. After informed written consent was obtained, the patient's Right anterior chest region was prepped and draped in the usual sterile fashion. The skin was anesthetized with lidocaine. Incision was made over the previous incision line. The port was removed with blunt dissection. The skin was closed with interrupted intermediate depth absorbable sutures. The patient tolerated the procedure well and left the department in the same condition. Impression: Successful, uncomplicated removal of a Right Port-A-Cath. Signed: Meño Alfaro Verified Date/Time: 03/20/2022 15:46:55 Reading Location: [facility] Radiology Reading Room HROMBIN TIME/INR 2022-03-18 11:58:21 Test Item Value Reference Range Interpretation Comme nts PROTIME (BEAKER) (test code 14.6 seconds 11.9-14.2 H = 759) INR (BEAKER) (test code = 1.21 See_Comment [ Automated message] The [employer] Machine system which AnTuTu nerated this result transmit tom reference range: <=5.90. The reference range was not u sed to interpret this result as normal/abnormal . RECOMMENDED COUMADIN/WARFARIN INR THERAPY RANGESSTANDARD DOSE: 2.0 - 3.0 Includes: PROPHYLAXIS for venous thrombosis, systemic embolization; TREATMENT for venous thrombosis and/or pulmonary embolus.HIGH RISK: Target INR is 2.5-3.5 for patients with mechanical heart valves.POC-Glucose [id number] 11:50:47 Test Item Value Reference Range Interpretation Comments POC-Glucose Meter (test 91 mg/dL 70-110 : TE STED AT [facility] code = 1538) 6720 [facility], 770 30: Contract Graphic Designer/Techni kylie ID = [id number] for Sarsoza, Gemma Lab Interpretation (test Normal code = 75825-8) [facility] [id number] 11:50:47 Test Item Value Reference Range Interpretation Comments POC-GLUCOSE METER 91 mg/dL 70-110 : TESTED A T [facility] 6720 (BEAKER) (test code = [facility], 1538) [address]10: Contract Graphic Designer/Techni kylie ID = [id number] for Sars paulie, Gemma CBC W/PLT COUNT & AUTO [id number] 11:50:17 Test Item Value Reference Range Interpretation Comments WHITE BLOOD CELL COUNT (BEAKER) 7.5 K/ L 3.5-10.5 (test code = 775) RED BLOOD CELL COUNT (BEAKER) 4.65 M/ L 3.93-5.22 (test code = 761) HEMOGLOBIN (BEAKER) (test code = 13.2 GM/DL 11.2-15.7 410) HEMATOCRIT (BEAKER) (test code = 42.0 % 34.1-44.9 411) MEAN CORPUSCULAR VOLUME (BEAKER) 90.3 fL 79.4-94.8 (test code = 753) MEAN CORPUSCULAR HEMOGLOBIN 28.4 pg 25.6-32.2 (BEAKER) (test code = 751) MEAN CORPUSCULAR HEMOGLOBIN CONC 31.4 GM/DL 32.2-35.5 L (BEAKER) (test code = 752) RED CELL DISTRIBUTION WIDTH 14.4 % 11.7-14.4 (BEAKER) (test code = 412) PLATELET COUNT (BEAKER) (test 202 K/CU MM 150-450 code = 756) MEAN PLATELET VOLUME (BEAKER) 11.0 fL 9.4-12.3 (test code = 754) NUCLEATED RED BLOOD CELLS 0 /100 WBC 0-0 (BEAKER) (test code = 413) NEUTROPHILS RELATIVE PERCENT 70 % (BEAKER) (test code = 429) LYMPHOCYTES RELATIVE PERCENT 23 % (BEAKER) (test code = 430) MONOCYTES RELATIVE PERCENT 6 % (BEAKER) (test code = 431) EOSINOPHILS RELATIVE PERCENT 0 % (BEAKER) (test code = 432) BASOPHILS RELATIVE PERCENT 0 % (BEAKER) (test code = 437) NEUTROPHILS ABSOLUTE COUNT 5.25 K/ L 1.56-6.13 (BEAKER) (test code = 670) LYMPHOCYTES ABSOLUTE COUNT 1.74 K/ L 1.18-3.74 (BEAKER) (test code = 414) MONOCYTES ABSOLUTE COUNT (BEAKER) 0.45 K/ L 0.24-0.36 H (test code = 415) EOSINOPHILS ABSOLUTE COUNT 0.02 K/ L 0.04-0.36 L (BEAKER) (test code = 416) BASOPHILS ABSOLUTE COUNT (BEAKER) 0.03 K/ L 0.01-0.08 (test code = 417) IMMATURE GRANULOCYTES-RELATIVE 0 % 0-1 PERCENT (BEAKER) (test code = 2801) VITAMIN [id number] 11:04:45 Test Item Value Reference Range Interpretation Comments VITAMIN B-12 (test 1015 PG/ML 200-950 H Unless O therwise code = 2132-9) Indicated, Al l Testing Perform ed At: [facility], [address] [place] [address] Laborator y Director: Robbie Wagner M.D. CLIA Number [id number] Cap Accreditation N o. BALBIR (test code = BALBIR) PT FASTING Lab Interpretation Abnormal (test code = 36398-4) [facility] T4 [id number] 11:04:45 Test Item Value Reference Range Interpretation Comments THYROID STIMULATING See_Comment [Automa tom message] HORMONE (test code = The sys tem which 87655-1) generated this result transmitted ref erence range: 0.400 - 4.100 UIU/ML. The ref erence range was not u sed to interpret this result as normal/abnor mal. FREE T4 (test code = See_Comment Unless Otherwise 3024-7) Indicated, All Testing Perform ed At: [facility], [address] [place] [address] Laborator y Director: Robbie Wagner M.D. CLIA Number [id number] Cap Accreditation N o. [Autom ated message] The sy stem which generated this result transmit tom reference range : 0.80 - 1.90 NG/DL. T he reference range was not used to int erpret this result as normal/abnormal . BALBIR (test code = BALBIR) PT FASTING [facility]OL[facility] [id number] 19:07:17 Test Item Value Reference Range Interpretation Comments GLUCOSE (test code = See_Comment H [Autom ated message] 2345-7) The system whic h generated this result transmitted ref erence range: 70 - 99 MG/DL. The reference r anil was not used to interpret this result as normal/abnor mal. BLOOD UREA NITROGEN See_Comment H [Automa tom message] (test code = 3091-6) The sys tem which generated this result transmitted ref erence range: 6 - 20 M G/DL. The reference r anil was not used to interpret this result as normal/abnor mal. CREATININE (test code See_Comment [Auto mated message] = 2160-0) The system [facility] generated this result transmitted ref erence range: 0.6 - 1. 3 MG/DL. The refe rence range was not u sed to interpret this result as normal/abnor mal. EGFR (test code = See_Comment L [Automate d message] 21273-6) The system [facility] generated this result transmitted ref erence range: >60 ML/MIN/1.73. Th e reference range was not used to int erpret this result as normal/abnormal . BUN/CREAT RATIO (test See_Comment [Auto mated message] code = 3097-3) The system [facility] generated this result transmitted ref erence range: 6 - 28 R ATIO. The reference r anil was not used to interpret this result as normal/abnor mal. SODIUM (test code = See_Comment [Automa tom message] 2951-2) The system [facility] generated this result transmitted ref erence range: 133 - 14 6 MEQ/L. The refe rence range was not u sed to interpret this result as normal/abnor mal. POTASSIUM (test code = See_Comment [Aut omated message] 9323-3) The system [facility] generated this result transmitted ref erence range: 3.5 - 5. 4 MEQ/L. The refe rence range was not u sed to interpret this result as normal/abnor mal. CHLORIDE (test code = See_Comment H [Auto mated message] 7455-0) The system [facility] generated this result transmitted ref erence range: 100 - 11 2 MEQ/L. The refe rence range was not u sed to interpret this result as normal/abnor mal. CO2 (test code = See_Comment [Automated message] 1962-8) The system [facility] generated this result transmitted ref erence range: 21 - 30 MEQ/L. The reference r anil was not used to interpret this result as normal/abnor mal. CALCIUM (test code = See_Comment [Autom ated message] 17325-1) The system [facility] generated this result transmitted ref erence range: 8.5 - 10 .5 MG/DL. The refe rence range was not u sed to interpret this result as normal/abnor mal. PROTEIN TOTAL (test See_Comment [Automa tom message] code = 2885-2) The system [employer] generated this result transmitted ref erence range: 6.1 - 8. 1 G/DL. The refer ence range was not u sed to interpret this result as normal/abnor mal. ALBUMIN (test code = See_Comment [Autom ated message] 71657-2) The system [facility] generated this result transmitted ref erence range: 3.4 - 4. 8 G/DL. The refer ence range was not u sed to interpret this result as normal/abnor mal. GLOBULINS, SERUM, See_Comment [Automate d message] TOTAL (test code = The syste m which 08072-6) generated this result transmitted ref erence range: 1.9 - 3. 7 G/DL. The refer ence range was not u sed to interpret this result as normal/abnor mal. A/G RATIO (test code = See_Comment [Aut omated message] 1759-0) The system [facility] generated this result transmitted ref erence range: 1.0 - 2. 6 RATIO. The refe rence range was not u sed to interpret this result as normal/abnor mal. BILIRUBIN TOTAL (test See_Comment [Auto mated message] code = 1975-2) The system [employer] generated this result transmitted ref erence range: <=1.2 MG /DL. The reference r anil was not used to interpret this result as normal/abnor mal. ALKALINE PHOSPHATASE 71 U/L 30-132 (test code = 6768-6) AST (SGOT) (test code 26 U/L 7-56 = 1920-8) ALT (SGPT) (test code 29 U/L 3-47 TESTI NG PERFORMED AT = 1744-2) [facility] [place] [address] [place] [address] CLIA NO. [id number] Unle ss Otherwise Indic ated, All Testing Per formed At: [facility], [address] [place] [address] Laborator y Director: Robbie Wagner M.D. CLIA Number [id number] Cap Accreditation N o. 07764-19 BALBIR (test code = BALBIR) PT FASTING Lab Interpretation Abnormal (test code = 76623-3) [id number] 19:07:05 Test Item Value Reference Range Interpretation Comments MAGNESIUM (test code See_Comment TESTIN G PERFORMED AT = 71389-4) [facility] [place] [address] [place], [place] [address] CLIA NO. [id number] Unless Otherwise Indic ated, All Testing Per formed At: [facility], [address] [facility], [place] [address] Laboratory Dire ctor: Robbie de los santos M.D. CLIA Number [id number] [place]. [address]-34 [Autom ated message] The sy stem which generated this result transmit tom reference range : 1.6 - 2.6 MG/DL. The reference range was not used to interpr et this result as normal/abnormal . BALBIR (test code = PT FASTING BALBIR) [facility]O DIFF WITH [id number] 18:30:05 Test Item Value Reference Range Interpretation Comments WHITE BLOOD CELL COUNT See_Comment [Aut omated message] (test code = 43527-7) The sy stem which generated this result transmit tom reference range : 3.5 - 11.0 K/UL. [facility] reference range was not used to interpret this result as normal/abnormal . RED BLOOD CELL COUNT See_Comment [Autom ated message] (test code = 16092-1) The sy stem which generated this result transmit tom reference range : 3.80 - 5.40 M/U L. The reference r anil was not used to interpret this result as normal/abnormal . HEMOGLOBIN (test code = See_Comment [Au tomated message] 718-7) The system whic h generated this result transmit tom reference range : 11.5 - 15.5 G/D L. The reference r anil was not used to interpret this result as normal/abnormal . HEMATOCRIT (test code = 42.3 % 34-45 28208-5) MEAN CORPUSCULAR VOLUME 90.2 fL 80-99 (test code = 82006-6) MEAN CORPUSCULAR 29.2 PG 25-33 HEMOGLOBIN (test code = 34552-7) MEAN CORPUSCULAR See_Comment [Automated message] HEMOGLOBIN CONC (test The sy stem which code = 85617-8) generated th is result transmit tom reference range : 31.0 - 36.0 G/D L. The reference r anil was not used to interpret this result as normal/abnormal . RED CELL DISTRIBUTION 15.2 % 11.5-15 H WIDTH (test code = 62540-6) NEUTROPHILS % (test 58 % code = 09521-5) LYMPHOCYTES % (test 33 % code = 82325-3) MONOCYTES % (test code 8 % = 09910-4) EOSINOPHILS % (test 1 % code = 08514-7) BASOPHILS % (test code 0 % = 86045-9) PLATELET COUNT (test See_Comment TESTIN G PERFORMED code = 33021-9) AT [facility], [facility] [address] [facility] [place] [address] CLIA N O. [id number] [Automated mess age] The system whic h generated this result transmit tom reference range : 130 - 400 K/UL. The reference range was not used to interpret this result as normal/abnormal . NEUTROPHILS ABSOLUTE See_Comment [Autom ated message] COUNT (test code = The syste m which 82682-9) generated this result transmit tom reference range : 1.50 - 7.50 K/U L. The reference r anil was not used to interpret this result as normal/abnormal . LYMPHOCYTES ABSOLUTE See_Comment [Autom ated message] COUNT (test code = The syste m which 52725-9) generated this result transmit tom reference range : 1.00 - 4.00 K/U L. The reference r anil was not used to interpret this result as normal/abnormal . MONOCYTES ABSOLUTE See_Comment [Automat ed message] COUNT (test code = The syste m which 29073-0) generated this result transmit tom reference range : 0.20 - 1.00 K/U L. The reference r anil was not used to interpret this result as normal/abnormal . BASOPHILS ABSOLUTE See_Comment Unless O therwise COUNT (test code = Indicated , All 54295-7) Testing Perform ed At: [facility], [address] [place] [address] [place] [address] Laborator y Director: Robbie Wagner M.D. CLIA Number [id number] [place] [address]-68 [Automated mess age] The system [facility] generated this result transmit tom reference range : 0.00 - 0.20 K/U L. The reference r anil was not used to interpret this result as normal/abnormal . BALBIR (test code = BALBIR) PT FASTING Lab Interpretation Abnormal (test code = 36926-7) [facility], WITH IV [id number] 10:07:00Unlisted Reason for Exam - Click Yes and Enter Reason Below->Yes Unlisted Reason for Exam->Malignant neoplasm of overlapping sites of bladder [facility] [place]A MERCADO : 1945 Sex: FFINAL REPORT CT of the chest, with contrast, CT of abdomen and pelvis with and without contrast Clinical History: Unlisted Reason for ExamMalignant neoplasm of overlapping sites of bladder Technique: CT of the chest is performed with intravenous contrast administration. CT of the abdomen and pelvis is performed with and without intravenous contrast administration. This exam was performed according to our departmental dose optimization program which includes automated exposure control, adjustment of the mA and/or kV according to patient's size and/or use of iterative reconstructive technique. Comparison Film: October 29, 2021, July 29, 2021, May 03, 2021 Discussion: There is a right-sided Port-A-Cath. No supraclavicular, axillary, mediastinal or hilar lymphadenopathy.Heart is mildly enlarged, trace pericardial effusion. There is no mass or consolidation. Previously seen groundglass opacities in the right lower lobe have resolved. A 3 mm nodule now measures approximately 1 mm. No new nodule. No effusion. Central airways are patent. No liver mass is identified. No biliary ductal dilatation. There are stones within the gallbladder. The spleen, pancreas, and adrenal glands are normal. No renal mass. There is mild cortical scarring bilaterally there is a punctate nonobstructive stone in the right lower pole. Bilateral pelviectasis is unchanged. Status post cystectomy with Foard pouch. Proximal remains thickened. No evidence of bowel obstruction, or abnormal bowelwall thickening. There is no ascites, free air or adenopathy. Bony structures demonstrate degenerative changes. Impression: Previously seen right lower lobe pulmonary nodules are either smaller or resolved. No new disease identified in the chest, abdomen or pelvis. Persistent wall thickening of the Foard pouch. Cholelithiasis. Punctate nonobstructive stone in the right kidney. Signed: Beto Bianchi MDReport Verified Date/Time: 02/05/2022 10:07:02 Reading Location: [facility] C[facility] Consult Reading Room CT, [id number] 10:07:00Unlisted Reason for Exam - Click Yes and Enter Reason Below->YesUnlisted Reason for Exam->Malignant neoplasm of overlapping sites of bladderIs this for enterography?->NoWill this procedure require oral contrast?->No [facility] ALEXANDRIA MERCADO AL : 1945 Sex: FFINAL REPORT CT of the chest, with contrast, CT of abdomen and pelvis withand without contrast Clinical History: Unlisted Reason for ExamMalignant neoplasm of overlapping sites of bladder Technique: CT of the chest is performed with intravenous contrast administration. CT ofthe abdomen and pelvis is performed with and without intravenous contrast administration. This exam was performed according to our departmental dose optimization program which includes automated exposure control, adjustment of the mA and/or kV according to patient's size and/or use of iterative reconstructive technique. Comparison Film: October 29, 2021, July 29, 2021, May 03, 2021 Discussion: There is a right-sided Port-A-Cath. No supraclavicular, axillary, mediastinal or hilar lymphadenopathy. Heart is mildly enlarged, trace pericardial effusion. There is no mass or consolidation. Previouslyseen groundglass opacities in the right lower lobe have resolved. A 3 mm nodule now measures approximately 1 mm. No new nodule. No effusion. Central airways are patent. No liver mass is identified. No biliary ductal dilatation. There are stones within the gallbladder. The spleen, pancreas, and adrenalglands are normal. No renal mass. There is mild cortical scarring bilaterally there is a punctate nonobstructive stone in the right lower pole. Bilateral pelviectasis is unchanged. Status post cystectomy with Foard pouch. Proximal remains thickened. No evidence of bowel obstruction, or abnormal bowel wall thickening. There is no ascites, free air or adenopathy. Bony structures demonstrate degenerative changes. Impression: Previously seen right lower lobe pulmonary nodules are either smaller or resolved. No new disease identified in the chest, abdomen or pelvis. Persistent wall thickening of the In kendrick pouch. Cholelithiasis. Punctate nonobstructive stone in the right kidney. Signed: Beto Bianchi MDReport Verified Date/Time: 02/05/2022 10:07:02 Reading Location: [address] Consult Reading Room COMPREHENSIVE METABOLIC [id number] 17:14:02 Test Item Value Reference Range Interpretation Comments GLUCOSE (test code = See_Comment [Autom ated message] 2345-7) The system [employer] generated this result transmitted ref erence range: 70 - 99 MG/DL. The reference r anil was not used to interpret this result as normal/abnor mal. BLOOD UREA NITROGEN See_Comment H [Automa tom message] (test code = 3091-6) The [employer] tem which generated this result transmitted ref erence range: 6 - 20 M G/DL. The reference r anil was not used to interpret this result as normal/abnor mal. CREATININE (test code = See_Comment [Au tomated message] 2160-0) The system [employer] generated this result transmitted ref erence range: 0.6 - 1. 3 MG/DL. The refe rence range was not u sed to interpret this result as normal/abnor mal. EGFR (test code = See_Comment [Automate d message] 96885-1) The system [employer] generated this result transmitted ref erence range: >60 ML/MIN/1.73. Th e reference range was not used to int erpret this result as normal/abnormal . BUN/CREAT RATIO (test See_Comment [Auto mated message] code = 3097-3) The system [facility] generated this result transmitted ref erence range: 6 - 28 R ATIO. The reference r anil was not used to interpret this result as normal/abnor mal. SODIUM (test code = See_Comment [Automa tom message] 6171-2) The system [employer] generated this result transmitted ref erence range: 133 - 14 6 MEQ/L. The refe rence range was not u sed to interpret this result as normal/abnor mal. POTASSIUM (test code = See_Comment [Aut omated message] 6543-3) The system [employer] generated this result transmitted ref erence range: 3.5 - 5. 4 MEQ/L. The refe rence range was not u sed to interpret this result as normal/abnor mal. CHLORIDE (test code = See_Comment [Auto mated message] 1335-0) The system [facility] [employer] generated this result transmitted ref erence range: 100 - 11 2 MEQ/L. The refe rence range was not u sed to interpret this result as normal/abnor mal. CO2 (test code = See_Comment L [Automated message] 1962-8) The system [employer] generated this result transmitted ref erence range: 21 - 30 MEQ/L. The reference r anil was not used to interpret this result as normal/abnor mal. CALCIUM (test code = See_Comment [Autom ated message] 15518-4) The system [facility] [employer] generated this result transmitted ref erence range: 8.5 - 10 .5 MG/DL. The refe rence range was not u sed to interpret this result as normal/abnor mal. PROTEIN TOTAL (test See_Comment [Automa tom message] code = 2885-2) The system [facility] generated this result transmitted ref erence range: 6.1 - 8. 1 G/DL. The reference r anil was not used to interpret this result as normal/abnor mal. ALBUMIN (test code = See_Comment [Autom ated message] 27334-4) The system [facility] generated this result transmitted ref erence range: 3.4 - 4. 8 G/DL. The reference r anil was not used to interpret this result as normal/abnor mal. GLOBULINS, SERUM, TOTAL See_Comment [Au tomated message] (test code = 70884-1) The sy stem which generated this result transmitted ref erence range: 1.9 - 3. 7 G/DL. The reference r anil was not used to interpret this result as normal/abnor mal. A/G RATIO (test code = See_Comment [Aut omated message] 1759-0) The system [facility] generated this result transmitted ref erence range: 1.0 - 2. 6 RATIO. The refe rence range was not u sed to interpret this result as normal/abnor mal. BILIRUBIN TOTAL (test See_Comment [Auto mated message] code = 1975-2) The system [facility] generated this result transmitted ref erence range: <=1.2 MG /DL. The reference r anil was not used to interpret this result as normal/abnor mal. ALKALINE PHOSPHATASE 62 U/L 30-132 (test code = 6768-6) AST (SGOT) (test code = 27 U/L 7-56 1920-8) ALT (SGPT) (test code = 25 U/L 3-47 GIULIA TING PERFORMED AT 1744-2) [facility], [place], [address] [place] [address] CLIA NO. [id number] Unle ss Otherwise Indic ated, All Testing Per formed At: [facility], [address] [place] [address] Laborator y Director: Robbie Wagner M.D. CLIA Number [id number] [place] o. [id number] Lab Interpretation Abnormal (test code = 22319-2) [id number] 17:13:42 Test Item Value Reference Range Interpretation Comments MAGNESIUM (test code = See_[place] [address]-8) [facility], [place] [place], [place] [address] CLIA NO. [id number] Unless Otherwise Indic ated, All Testing Perform ed At: [facility], [address] [facility], [place] [address] Laboratory Dire ctor: Gayla Chavez CLIA Number [id number] [place]reditation [place] o. [id number] [Automated mess age] The system which ge nerated this result tra nsmitted reference range : 1.6 - 2.6 MG/DL. The refe rence range was not used to interpret this result as normal/abnormal . [facility]AUTO DIFF WITH [id number] 16:29:34 Test Item Value Reference Range Interpretation Comments WHITE BLOOD CELL COUNT See_Comment [Aut omated message] (test code = 54548-7) The sy stem which generated this result transmitted ref erence range: 3.5 - 11 .0 K/UL. The refer ence range was not u sed to interpret this result as normal/abnor mal. RED BLOOD CELL COUNT See_Comment [Autom ated message] (test code = 27918-6) The sy stem which generated this result transmitted ref erence range: 3.80 - 5 .40 M/UL. The refer ence range was not u sed to interpret this result as normal/abnor mal. HEMOGLOBIN (test code = See_Comment [Au tomated message] 718-7) The system whic h generated this result transmitted ref erence range: 11.5 - 1 5.5 G/DL. The refer ence range was not u sed to interpret this result as normal/abnor mal. HEMATOCRIT (test code = 42.1 % 34.0-45.0 86261-8) MEAN CORPUSCULAR VOLUME 88.8 fL 80.0-99.0 (test code = 17617-3) MEAN CORPUSCULAR 28.7 PG 25.0-33.0 HEMOGLOBIN (test code = 11374-1) MEAN CORPUSCULAR See_Comment [Automated message] HEMOGLOBIN CONC (test The sy stem which code = 54776-1) generated th is result transmitted ref erence range: 31.0 - 3 6.0 G/DL. The refer ence range was not u sed to interpret this result as normal/abnor mal. RED CELL DISTRIBUTION 16.2 % 11.5-15.0 H WIDTH (test code = 75390-8) NEUTROPHILS % (test code 66 % = 35946-7) LYMPHOCYTES % (test code 23 % = 90054-3) MONOCYTES % (test code = 10 % 63256-3) EOSINOPHILS % (test code 1 % = 90585-8) BASOPHILS % (test code = 0 % 63327-5) PLATELET COUNT (test See_Comment TESTIN G PERFORMED AT code = 64898-4) [facility] [employer], [place] [facility] [place] [address] CLIA NO. [id number] [Aut omated message] The sy stem which generated this result transmit tom reference range : 130 - 400 K/UL. The reference range was not used to int erpret this result as normal/abnormal . NEUTROPHILS ABSOLUTE See_Comment [Autom ated message] COUNT (test code = The syste m which 51141-3) generated this result transmitted ref erence range: 1.50 - 7 .50 K/UL. The refer ence range was not u sed to interpret this result as normal/abnor mal. LYMPHOCYTES ABSOLUTE See_Comment [Autom ated message] COUNT (test code = The syste m which 14900-4) generated this result transmitted ref erence range: 1.00 - 4 .00 K/UL. The refer ence range was not u sed to interpret this result as normal/abnor mal. MONOCYTES ABSOLUTE COUNT See_Comment [A utomated message] (test code = 51832-8) The sy stem which generated this result transmitted ref erence range: 0.20 - 1 .00 K/UL. The refer ence range was not u sed to interpret this result as normal/abnor mal. BASOPHILS ABSOLUTE COUNT See_Comment Un less Otherwise (test code = 55759-7) Indica tom, All Testing Perform ed At: [facility], [address] [facility], [place] [address] Laborator y Director: Moni ChavezIA Number [id number] [facility] Accreditation N o. [id number] [Autom ated message] The sy stem which generated this result transmit tom reference range : 0.00 - 0.20 K/UL. Th e reference range was not used to int erpret this result as normal/abnormal . Lab Interpretation (test Abnormal code = 98813-6) [facility], [id number] 07:33:00T2N0 bladder cancer restagingPlease compare to prior imagingSchedule early to mid October 2021Unlisted Reason for Exam - Click Yes and Enter Reason Below->YesUnlisted Reason for Exam->Malignant neoplasm of overlapping sites of bladderIs this for enterography?->NoWill this procedure require oralcontrast?->No [facility] : 1945 Sex: FFINAL REPORT CT of the chest, abdomen and pelvis, with contrast Clinical History: Unlisted Reason for ExamMalignant neoplasm of overlapping sites of bladder Technique: CT of the chest, abdomen and pelvis is performed with intravenous contrast administration. This exam was performed according to our departmental dose optimization program which includes automated exposure contro l, adjustment of the mA and/or kV according to patient's size and/or use of iterative reconstructivetechnique. Comparison Film: July 29, 2021 and May 03, 2021 Discussion: Thyroid gland appears enlarged, as before. There is a right-sided Port-A-Cath. No supraclavicular, axillary, mediastinal orhilar lymphadenopathy. Heart is enlarged. In the right lower lobe, there is a new 3 mm nodule (image75), as well as several adjacent small, vaguely groundglass nodular opacities. No effusion. No consolidation. No bronchiectasis or bronchial wall thickening. No liver lesion is identified. No biliary ductal dilatation. There are small stones in the gallbladder. The spleen, pancreas, and adrenal glandsare unremarkable. Kidneys demonstrate no hydronephrosis, mass or radiopaque stone. There is bilateral pelviectasis, unchanged. No filling defect is identified in the opacified motion of the renal collecting system. Status post cystectomy, with Foard pouch. Pouch wall remains mildly thickened, but unchanged from the previous exams. No evidence of bowel obstruction, or abnormal bowel wall thickening.In the pelvis, uterus is also absent. No adnexal mass. No ascites, or lymphadenopathy. Bony structures demonstrate degenerative changes. A stable sclerotic focus in the right proximal femur is likely [place]. Impression: Interval development of a 3 mm pulmonary nodule as well as several additional small groundglass nodules in the right lower lobe. Findings are nonspecific and may be related to infection or inflammation, amenable to follow-up. Persistent wall thickening of the Foard pouch. Nonew disease identified in the abdomen or pelvis. Cholelithiasis. Signed: Beto Bianchi [facility] Verified Date/Time: 11/03/2021 07:33:51 CT, CHEST, WITH IV [id number] 07:33:00T2N0 bladder cancer restagingPlease compare to prior imagingSchedule early to mid October 2021UnlistedReason for Exam - Click Yes and Enter Reason Below->YesUnlisted Reason for Exam->Malignant neoplasm of overlapping sites of bladder [facility] ALEXANDRIA AL : 1945 Sex: FFINAL REPORT CT of the chest, abdomen and pelvis, with contrast Clinical History: Unlisted Reason for ExamMalignant neoplasm of overlapping sites of bladder Technique: CT of the chest, abdomen and pelvis is performed with intravenous contrast administration. This exam was performed according to our departmental dose optimization program which includes automated exposure contro l, adjustment of the mA and/or kV according to patient's size and/or use of iterative reconstructivetechnique. Comparison Film: July 29, 2021 and May 03, 2021 Discussion: Thyroid gland appears enlarged, as before. There is a right-sided Port-A-Cath. No supraclavicular, axillary, mediastinal orhilar lymphadenopathy. Heart is enlarged. In the right lower lobe, there is a new 3 mm nodule (image75), as well as several adjacent small, vaguely groundglass nodular opacities. No effusion. No consolidation. No bronchiectasis or bronchial wall thickening. No liver lesion is identified. No biliary ductal dilatation. There are small stones in the gallbladder. The spleen, pancreas, and adrenal glandsare unremarkable. Kidneys demonstrate no hydronephrosis, mass or radiopaque stone. There is bilateral pelviectasis, unchanged. No filling defect is identified in the opacified motion of the renal collecting system. Status post cystectomy, with Foard pouch. Pouch wall remains mildly thickened, but unchanged from the previous exams. No evidence of bowel obstruction, or abnormal bowel wall thickening.In the pelvis, uterus is also absent. No adnexal mass. No ascites, or lymphadenopathy. Bony structures demonstrate degenerative changes. A stable sclerotic focus in the right proximal femur is likely [place]. Impression: Interval development of a 3 mm pulmonary nodule as well as several additional small groundglass nodules in the right lower lobe. Findings are nonspecific and may be related to infection or inflammation, amenable to follow-up. Persistent wall thickening of the Jazzy pouch. Nonew disease identified in the abdomen or pelvis. Cholelithiasis. Signed: Beto Bianchiepranken [facility] Verified Date/Time: 11/03/2021 07:33:51 POCT URINALYSIS [id number] 00:00:00 Test Item Value Reference Range Interpretation Comments COLOR UA (test code = 5778-6) Yellow YELLOW/STRAW CLARITY UA (test code = 65622-5) Clear CLEAR GLUCOSE UA (test code = 5792-7) Negative NEGATIVE BILIRUBIN UA (test code = 5770-3) Negative NEGATIVE KETONES UA (test code = 88439-8) Negative NEGATIVE SPECIFIC GRAVITY UA (test code = 1.005-1.035 5811-5) BLOOD UA (test code = 5794-3) Negative NEGATIVE PH UA (test code = 5803-2) 5-9 PROTEIN UA (test code = 5804-0) Negative NEGATIVE UROBILINOGEN UA (test code = 0.02 E.U/DL NORMAL MG/DL 5818-0) LEUKOCYTE ESTERASE UA (test code Negative NEGATIVE = 5799-2) NITRITE UA (test code = 5802-4) Trace NEGATIVE REDUCING SUBSTANCES URINE (test code = 99827-4) [facility], WITH IV [id number] 13:55:00Unlisted Reason for Exam - Click Yes and Enter Reason Below->YesUnlisted Reason for Exam->Malignant neoplasm of overlapping sites of bladder [facility] ALEXANDRIA MERCADO MELENDEZ : 1945 Sex: FFINAL REPORT CT of the chest, abdomen and pelvis, with contrast Clinical History: Unlisted Reason for ExamMalignant neoplasm of overlapping sites of bladder Technique: CT of the chest, abdomen and pelvis is performed with intravenous contrast administration. This exam was performed according to our departmental dose optimization program which includes automated exposure contro l, adjustment of the mA and/or kV according to patient's size and/or use of iterative reconstructivetechnique. Comparison Film: May 03, 2021, January 18, 2021 Discussion: There is a right-sided Port-A-Cath. No supraclavicular, axillary, mediastinal or hilar lymphadenopathy. Heart is borderline enlarged. No pericardial effusion. There is no new mass or consolidation. No effusion. Central airways are patent. No liver mass is identified. There is a tiny stone in gallbladder. No ductal dilatation. Spleen, pancreas, adrenal glands are normal. Kidneys demonstrate no hydronephrosis, mass or contour deforming lesion. There is bilateral pelviectasis. No bowel obstruction, or abnormal bowel wall thickening. Patient is status post cystectomy, with Foard pouch. Pouch wall is mildly thickened. Uterus is also absent. No adnexal mass. There is no adenopathy. No ascites. Bony structures demonstrate degenerative changes. No suspicious bony lesion is identified. Impression: Persistent wall thickening of the Foard pouch. No metastatic disease is identified in the chest, abdomen or pelvis. Cholelithiasis. Signed: Beto Bianchieport Verified Date/Time: 07/29/2021 13:55:07 Reading Location: [facility] C013X [facility] Consult Reading Room CT, ABDOMEN 2021-07-29 13:55:00Unlisted Reason for Exam - Click Yes and Enter Reason Below- >YesUnlisted Reason for Exam->Malignant neoplasm of overlapping sites of bladderWill this procedure require oral contrast?->No [facility] : 1945 Sex: FFINAL REPORT CT of the chest, abdomen and pelvis, with contrast Clinical History: Unlisted Reason for ExamMalignant neoplasm of overlapping sites of bladder Technique: CT of the chest, abdomen and pelvis is performed with intravenous contrast administration. This exam was performed according to our departmental dose optimization program which includes automated exposure contro l, adjustment of the mA and/or kV according to patient's size and/or use of iterative reconstructivetechnique. Comparison Film: May 03, 2021, January 18, 2021 Discussion: There is a right-sided Port-A-Cath. No supraclavicular, axillary, mediastinal or hilar lymphadenopathy. Heart is borderline enlarged. No pericardial effusion. There is no new mass or consolidation. No effusion. Central airways are patent. No liver mass is identified. There is a tiny stone in gallbladder. No ductal dilatation. Spleen, pancreas, adrenal glands are normal. Kidneys demonstrate no hydronephrosis, mass or contour deforming lesion. There is bilateral pelviectasis. No bowel obstruction, or abnormal bowel wall thickening. Patient is status post cystectomy, with Foard pouch. Pouch wall is mildly thickened. Uterus is also absent. No adnexal mass. There is no adenopathy. No ascites. Bony structures demonstrate degenerative changes. No suspicious bony lesion is identified. Impression: Persistent wall thickening of the Jazzy pouch. No metastatic disease is identified in the chest, abdomen or pelvis. Cholelithiasis. Signed: Beto Bianchi MDReport Verified Date/Time: 07/29/2021 13:55:07 Reading Location: [facility] B1 C013X Ortho Consult Reading Room POC-Creatinine 2021-07-29 13:03:28 Test Item Value Reference Range Interpretation Comments POC-Creatinine (test 1.0 mg/dL 0.6-1.3 : TESTE D AT [facility] 1245 code = 1859) [facility] 7703 0: Contract Graphic Designer/Techni kylie ID = [id number] for Carri Penny POC-EGFR (test code 54 mL/min/1.73M2 = 1860) [facility]-[id number] 13:03:28 Test Item Value Reference Range Interpretation Comments POC-CREATININE 1.0 mg/dL 0.6-1.3 : TESTED AT [facility] ([facility]) (test [address] Bec[address] BLDG code = 1859) A, [place] [address]: Contract Graphic Designer/Techni kylie ID = [id number] for Carri Penny POC-EGFR 54 mL/min/1.73M2 ([facility]) (test code = 1860) CT, [id number] 12:39:00Restaging bladder cancerUnlisted Reason for Exam - Click Yes and Enter Reason Below->YesUnlisted Reason for Exam->Malignant neoplasm of overlapping sites of bladderWill this procedure require oral contrast?->No[facility] ALEXAND[facility] MERCAD[facility] : 1945 Sex: FFINAL REPORT CT of the chest, abdomen and pelvis, with contrast Clinical History: Unlisted Reason for ExamMalignant neoplasm of overlapping sites of bladder Technique: CT of the chest, abdomen and pelvis is performed with intravenous contrast administration. This exam was performed according to our departmental dose optimization program which includes automated exposure contro l, adjustment of the mA and/or kV according to patient's size and/or use of iterative reconstructivetechnique. Comparison Film: None Discussion: There is a right-sided Port-A-Cath. No supraclavicular,axillary, mediastinal or hilar lymphadenopathy. Heart is borderline [...] no significant hydronephrosis. Status post cystectomy with Foard pouch. There is mild persistent segmental pouch wall thickening. No evidence of bowel obstruction, or abnormal bowel wall thickening. No adenopathy or mass lesion is identified. No ascites. Bony structures demonstrate degenerative changes. No suspicious bony lesion is identified. Impression: Persistent mild segmental wall thickening of the Foard pouch. No new disease identified inthe chest, abdomen or pelvis. Signed: Beto Bianchi Verified Date/Time: 05/03/2021 12:39:20 Reading Location: [facility] C0[facility] Consult Reading Room CT, CHEST, WITH IV [id number] 12:39:00Restaging bladder cancerUnlisted Reason for Exam - Click Yes and Enter Reason Below- >YesUnlisted Reason for Exam->Malignant neoplasm of overlapping sites of bladderWE[facility] ALEXANDRIA MERCADO AL : 1945 Sex: FFINAL REPORT CT of the chest, abdomen and pelvis, with contrast Clinical History: Unlisted Reason for ExamMalignant neoplasm of overlapping sites of bladder Technique: CT of the chest, abdomen and pelvis is performed with intravenous contrast administration. This exam was performed according to our departmental dose optimization program which includes automated exposure contro l, adjustment of the mA and/or kV according to patient's size and/or use of iterative reconstructivetechnique. Comparison Film: None Discussion: There is a right-sided Port-A-Cath. No supraclavicular,axillary, mediastinal or hilar lymphadenopathy. Heart is borderline [...] Persistent mild segmental wall thickening of the Foard pouch. No new disease identified inthe chest, abdomen or pelvis. Signed: Beto Bianchi MDReport Verified Date/Time: 05/03/2021 12:39:20 Reading Location: [address] Ortho Consult Reading Room [id number] 11:16:33 Test Item Value Reference Range Interpretation Comments POC-CREATININE 1.0 mg/dL 0.6-1.3 : TESTED AT [facility] ([facility]) (test [address] [employer] code = 1859) A, [facility] 7 6585: Contract Graphic Designer/Techni kylie ID = [id number] for Nacho Gomez POC-EGFR 54 mL/min/1.73M2 ([facility]) (test code = 1860) CT, [id number] 13:16:00Restaging bladder cancerUnlisted Reason for Exam - Click Yes and Enter Reason Below->YesUnlisted Reason for Exam->Malignant neoplasm of overlapping sites of bladderWill this procedure require oral contrast?->NoRUSSELL [facility] ALEXANDRIA MERCADO : 1945 Sex: FFINAL REPORT CT of the chest, abdomen and pelvis, with contrast Clinical History: Unlisted Reason for ExamMalignant neoplasm of overlapping sites of bladder Technique: CT of the chest, abdomen and pelvis is performed with intravenous contrast administration. This exam was performed according to our departmental dose optimization program which includes automated exposure contro l, adjustment of the mA and/or kV according to patient's size and/or use of iterative reconstructivetechnique. Comparison Film: October 04, 2020 and July 17, 2020 Discussion: There is a right-sided Port-A-Cath. No significant vallecular, axillary, mediastinal or hilar lymphadenopathy. Heart and paty cardium are unremarkable. There is no mass or consolidation. No new pulmonary nodule is identified. No bronchiectasis or bronchial wall thickening. No liver mass is identified. A few tiny stones are suspected in the gallbladder. No ductal dilatation. Spleen, pancreas, and adrenal glands are normal. Kidneys demonstrate no mass, or radiopaque stone. Prominent bilateral extrarenal pelvises appear unchanged. Patient is status post cystectomy with Foard pouch. Pouch wall thickening has decreased but there is persistent mild wall thickening anteriorly. No bowel obstruction, or abnormal bowel wall thickening. There is no ascites, free air or adenopathy. Bony structures demonstrate degenerative changes.No suspicious bony lesion is identified. Impression: No metastatic disease identified in the chest, abdomen or pelvis. Decreased wall thickening of the Foard pouch. Signed: Beto Bianchi VerifiedDate/Time: 01/18/2021 13:16:05 Reading Location: [facility] C[facility]X [facility] Consult Reading Room Electronical ly signed by: BETO BIANCHI M.D. on 01/18/2021 01:16 PMCT, CHEST, WITH IV CONTRAST 2021-01-18 13:16:00Restaging bladder cancerUnlisted Reason for Exam - Click Yes and Enter Reason Below->YesUnlisted Reason for Exam->Malignant neoplasm of overlapping sites of bladder [facility] ALEXANDRIA MERCADO : 1945 Sex: FFINAL REPORT CT of the chest, abdomen and pelvis, with contrast Clinical History: Unlisted Reason for ExamMalignant neoplasm of overlapping sites of bladder Technique: CT of the chest, abdomen and pelvis is performed with intravenous contrast administration. This exam was performed according to our departmental dose optimization program which includes automated exposure contro l, adjustment of the mA and/or kV according to patient's size and/or use of iterative reconstructivetechnique. Comparison Film: October 04, 2020 and July 17, 2020 Discussion: There is a right-sided Port-A-Cath. No significant vallecular, axillary, mediastinal or hilar lymphadenopathy. Heart and paty cardium are unremarkable. There is no mass or consolidation. No new pulmonary nodule is identified. No bronchiectasis or bronchial wall thickening. No liver mass is identified. A few tiny stones are suspected in the gallbladder. No ductal dilatation. Spleen, pancreas, and adrenal glands are normal. Kidneys demonstrate no mass, or radiopaque stone. Prominent bilateral extrarenal pelvises appear unchanged. Patient is status post cystectomy with Foard pouch. Pouch wall thickening has decreased but there is persistent mild wall thickening anteriorly. No bowel obstruction, or abnormal bowel wall thickening. There is no ascites, free air or adenopathy. Bony structures demonstrate degenerative changes.No suspicious bony lesion is identified. Impression: No metastatic disease identified in the chest, abdomen or pelvis. Decreased wall thickening of the Foard pouch. Signed: Beto Bianchi MDRepgerald VerifiedDate/Time: 01/18/2021 13:16:05 Reading Location: [facility] B1 C013X Ortho Consult Reading Room Electronical ly signed by: BETO BIANCHI M.D. on 01/18/2021 01:16 [id number] 12:41:00 Test Item Value Reference Range Interpretation Comments POC-CREATININE 1.0 mg/dL 0.6-1.3 : TESTED AT [facility] ([facility]) (test [address] code = 1859) A, [facility] 7 7030: Contract Graphic Designer/Techni kylie ID = [id number] for MANNY ISLAS POC-EGFR 54 mL/min/1.73M2 ([facility]) (test code = 1860) CT, CHEST, WITH IV [id number] 10:47:00Unlisted Reason for Exam - Click Yes and Enter Reason Below->YesUnlisted Reason for Exam->Malignant neoplasm of overlapping sites of bladder [facility] : 1945 Sex: FFINAL REPORT CT of the chest, abdomen and pelvis, with contrast Clinical History: Unlisted Reason for ExamMalignant neoplasm of overlapping sites of bladder Technique: CT of the chest, abdomen and pelvis is performed with intravenous contrast administration. This exam was performed according to our departmental dose optimization program which includes automated exposure contro l, adjustment of the mA and/or kV according to patient's size and/or use of iterative reconstructivetechnique. Comparison Film: July 17, 2020 and April 25, 2020 Discussion: There is a sieoa-ntjtjRgts-T-Cath. No supraclavicular, axillary, mediastinal or hilar lymphadenopathy. Heart is enlarged. No significant pericardial effusion. There is no mass or consolidation, no pleural effusion. No new pulmonary nodule is identified. Central airways are patent, no bronchiectasis or bronchial wall thickening. No liver lesion is identified. No biliary ductal dilatation, gallbladder is normal. The spleen,pancreas, and adrenal glands are normal. There is bilateral extrarenal pelvis, without interval change. No renal mass or radiopaque stone. Patient is status post cystectomy with Foard pouch. There ispersistent wall thickening along the medial aspect of the pouch. No evidence of bowel obstruction orabnormal bowel wall thickening. Uterus is also absent. No adnexal mass. There is no pelvic mass, or lymphadenopathy. No ascites. A stable sclerotic focus in the right femoral neck is likely a bone island. No suspicious bony lesion identified. Impression: No metastatic disease identified in the chest, abdomen or pelvis. Persistent medial wall thickening of the Foard pouch, suggest attention on follow-up exams. This finding can also be correlated with urinalysis to exclude infection. Signed: Beto Bianchi Verified Date/Time: 10/04/2020 10:47:02 Reading Location: [address] Consult Reading Room [facility], [id number] 10:47:00Unlisted Reason for Exam - Click Yes and Enter Reason Below->YesUnlisted Reason for Exam->Malignant neoplasm of overlapping sites of bladderWill this procedure require oral contrast?->Yes [facility]: ALEXANDRIA MERCADO : 1945 Sex: FFINAL REPORT CT of the chest, abdomen and pelvis, with contrast Clinical History: Unlisted Reason for ExamMalignant neoplasm of overlapping sites of bladder Technique: CT of the chest, abdomen and pelvis is performed with intravenous contrast administration. This exam was performed according to our departmental dose optimization program which includes automated exposure contro l, adjustment of the mA and/or kV according to patient's size and/or use of iterative reconstructivetechnique. Comparison Film: July 17, 2020 and April 25, 2020 Discussion: There is a jlckd-qsyfhHbak-R-Cath. No supraclavicular, axillary, mediastinal or hilar lymphadenopathy. Heart is enlarged. No significant pericardial effusion. There is no mass or consolidation, no pleural effusion. No new pulmonary nodule is identified. Central airways are patent, no bronchiectasis or bronchial wall thickening. No liver lesion is identified. No biliary ductal dilatation, gallbladder is normal. The spleen,pancreas, and adrenal glands are normal. There is bilateral extrarenal pelvis, without interval change. No renal mass or radiopaque stone. Patient is status post cystectomy with Foard pouch. There ispersistent wall thickening along the medial aspect of the pouch. No evidence of bowel obstruction orabnormal bowel wall thickening. Uterus is also absent. No adnexal mass. There is no pelvic mass, or lymphadenopathy. No ascites. A stable sclerotic focus in the right femoral neck is likely a bone island. No suspicious bony lesion identified. Impression: No metastatic disease identified in the chest, abdomen or pelvis. Persistent medial wall thickening of the Foard pouch, suggest attention on follow-up exams. This finding can also be correlated with urinalysis to exclude infection. Signed: Beto Bianchi MDReport Verified Date/Time: 10/04/2020 10:47:02 Reading Location: [facility] C0X [facility] Consult Reading Room -[id number] 08:59:00 Test Item Value Reference Range Interpretation Comments POC-CREATININE 1.0 mg/dL 0.6-1.3 : TESTED AT [facility] ([facility]) ([facility] [facility] code = 1859) Lemuel, [facility] 7 7055: Contract Graphic Designer/Techni kylie ID = [id number] for MANNY ISLAS POC-EGFR 54 mL/min/1.73M2 ([facility]) (test code = 1860) US PELVIS COMPLETE WITH [id number] 23:47:141. ?Status post hysterectomy. Bilateral ovaries were not visualized, may besurgically absent. Preliminary Report Dictated by Resident: Teo Morley MD., have reviewed this study and agree with the abovereport.EXAM: US PELVIS COMPLETE WITH TRANSVAGINAL HISTORY: 74 years -old female status post cystectomy and hysterectomy withpost menopausal bleeding . TECHNIQUE: Transabdominal and transvaginal ultrasound imaging of the pelviswas performed including color Doppler evaluation. Wide Area Network Systems Administrator imageswere obtained for the record. COMPARISON: None FINDINGS: Uterus: Status post hysterectomy. The vagina cuff is unremarkable. Right Adnexa:Ovary: Not visualized Left Adnexa:Ovary : Not vis ualized. Cul-de-sac: No free fluid. [facility], Radiant Results Inft User - 07/19/2020 5:48 PM CSTEXAM: USPELVIS COMPLETE WITH TRANSVAGINALHISTORY: 74 years -old female status post cystectomy and hysterectomy withpost menopausal bleeding . TECHNIQUE: Transabdominal and transvaginal ultrasound imaging of the pelviswas performed including color Doppler evaluation. Wide Area [employer] Systems Administrator imageswere obtained for the record.COMPARISON: NoneFINDINGS:Uterus: Status post hysterectomy. The vagina cuff is unremarkable.Right Adnexa:Ovary: Not visualizedLeft Adnexa:Ovary : Not visualized.Cul-de-sac: No free fluid.IMPRESSION1. Status post hysterectomy. Bilateral ovaries were not visualized, may besurgically absent.Preliminary Report Dictated by Resident: Teo Valdes MD., have reviewed this study and agree with the abovereport.[facility] HospitalUS HEAD [id number] 23:45:31 Nodule 1 located in the upper [...] spongiform nodules >/=2cm not described below (TR1) is0.The number of mixed cystic and solid nodules [...] 1, 3 and 5 years(from date of in itial exam 07/19/2020) [facility], Radiant Results Inft User - 07/19/2020 5:46 PM CSTEXAM: US HEAD NECKHISTORY: 74 years-old female presenting for left thyroid nodule follow-upTECHNIQUE: Ultrasound examination of the thyroid and adjacent soft tissueswas performed.COMPARISON: NoneFINDINGS:The thyroid gland is normal in size with heterogeneous echotexture andnormal color Doppler flow.The right thyroid lobe measures 4.7 x 2 x 1.9 cm, and the volume is 9.4 mL.The left thyroid lobe measures 4.8 x 1.8 x 2.5 cm,and the volume is 11.1mL. The isthmus measures 0.3 cm. The estimated total number of nodules >/=1cm is 1The number of spongiform nodules >/=2cm not described below (TR1) is 0.The number of mixed cystic and solid nodules >/=1.5cm not described below(TR2) is 0.2 subcentimeter lymph nodes are seen on the left lateral neck.Nodule#: 1* [...] risk category: TR 3 (3 points) * ACR TI-RADS recommendation: Follow-up ultrasound in 1, 3 and 5 years(from date of initial exam 07/19/2020)IMPRESSIONNodule 1 located in the upper portion of the left thyroid lobe measures upto 1.8 cm meets the TI-RADS 3 criteria for follow-up in a year.Echotexture of the thyroid parenchyma is heterogeneous, possibly related toHashimoto's thyroiditis. ACR TI-RADS recommendations* TR5 (>/=7 points) -FNA if >/= 1cm, follow-up if 0.5 -0.9 cm every yearfor 5 years* TR4 (4-6 points) -FNA if >/= 1.5cm, follow-up if 1 -1.4 cm in 1, 2, 3and 5 years* TR3 (3 points)-FNA if >/= 2.5cm, follow-up if 1.5 -2.4 cm in 1, 3 and 5years* TR2 (2 points) & TR1 (0 points) -No FNA or follow-upPreliminary Report Dictated by Resident: Krystal Stiles, Teo Moreira MD., have reviewed this study and agree with the abovereport.[facility] HospitalBI SCREENING MAMMOGRAM [id number] 18:20:10Examination:BI SCREENING MAMMOGRAM BILATERAL History:Patient is 74 [...] - Bilateral BI-RADS Category: Both 2 - BenignMemorial Hermann Northeast HospitalCT, CHEST, WITH IV CONTRAST 2020-07-17 15:58:00Unlisted Reason for Exam - Click Yes and Enter Reason Below- >YesUnlisted Reason for Exam->Malignant neoplasm of overlapping sites of bladderCHI [facility]Name: ALEXANDRIA MERCAD[facility] : 1945 Sex: FFINAL REPORT TECHNIQUE: CT of the chest, abdomen, and pelvis WITH intravenous contrast and WITHOUT oral contrast. Dose modulation, iterative reconstruction, and/or weight-basedadjustment of the mA/kV was utilized to reduce the radiation dose to as low as reasonably achievable. INDICATION: Unlisted Reason for ExamMalignant neoplasm of overlapping sites of bladder. COMPARISON:CT of the chest, abdomen, and pelvis from 04/25/2020. FINDINGS: LINES/TUBES: Right chest port with tip at the superior cavoatrial junction.. LUNGS AND AIRWAYS: The lungs and airways are normal without focal abnormality.PLEURA: The pleural spaces are clear.HEART AND MEDIASTINUM: The thyroid is enlarged.No significant mediastinal, hilar, or axillary lymphadenopathy. The heart and pericardium are withinnormal limits. Moderate calcification of the left anterior descending coronary artery. HEPATOBILIARY: No focal hepatic lesions. Gallbladder is unremarkable. No biliary ductal dilatation.SPLEEN: No splenomegaly.PANCREAS: No focal masses or ductal dilatation. ADRENALS: No adrenal nodules.KIDNEYS/URETERS: There is mild bilateral renal collecting system fullness with mild urothelial enhancement. Mild bilateral renal cortical scarring. PELVIC ORGANS/BLADDER: Prior hysterectomy and cystectomy. There is a right lower quadrant Foard pouch with a midline urostomy. There is unchanged, fairly abrupt narrowing at the right ureteropelvic junction. PERITONEUM/RETROPERITONEUM: No free air or fluid.LYMPH NODES:No lymphadenopathy. Prior pelvic rula dissection.VESSELS: Unremarkable. GI TRACT: Prior right hemicolectomy. No distention or wall thickening. BONES AND SOFT TISSUES: Mild degenerative disc changes ofthe visualized spine. IMPRESSION: 1.The mild bilateral renal collecting system fullness and urothelial enhancement may be due to reflux. Consider evaluation for underlying urinary tract infection giventhe urothelial enhancement. 2.There is fairly abrupt narrowing at the right ureteropelvic junction. An accessory right renal artery does cross at this level and could be the underlying cause. However, a urogram or pouchogram could be considered to evaluate for an underlying intrinsic obstruction. 3.Nodefinite metastatic disease in the chest, abdomen, or pelvis. Signed: Gio Prasad MDReport Verified Date/Time: 07/17/2020 15:58:18 CT, [id number] 15:58:00Unlisted Reason for Exam - Click Yes and Enter Reason Below->YesUnlisted Reason for Exam->Malignant neoplasm of overlapping sites of bladder [facility] : 1945 Sex: FFINAL REPORT TECHNIQUE: CT of the chest, abdomen, and pelvis WITH intravenous contrast and WITHOUT oral contrast. Dose modulation, iterative reconstruction, and/or weight-basedadjustment of the mA/kV was utilized to reduce the radiation dose to as low as reasonably achievable. INDICATION: Unlisted Reason for ExamMalignant neoplasm of overlapping sites of bladder. COMPARISON:CT of the chest, abdomen, and pelvis from 04/25/2020. FINDINGS: LINES/TUBES: Right chest port with tip at the superior cavoatrial junction.. LUNGS AND AIRWAYS: The lungs and airways are normal without focal abnormality.PLEURA: The pleural spaces are clear.HEART AND MEDIASTINUM: The thyroid is enlarged.No significant mediastinal, hilar, or axillary lymphadenopathy. The heart and pericardium are withinnormal limits. Moderate calcification of the left anterior [...] junction. PERITONEUM/RETROPERITONEUM: No free air or fluid.LYMPH NODES:No lymphadenopathy. Prior pelvic rula dissection.VESSELS: Unremarkable. GI TRACT: Prior right hemicolectomy. No distention or wall thickening. BONES AND SOFT TISSUES: Mild degenerative disc changes ofthe visualized spine. IMPRESSION: 1.The mild bilateral renal collecting system fullness and urothelial enhancement may be due to reflux. Consider evaluation for underlying urinary tract infection giventhe urothelial enhancement. 2.There is fairly abrupt narrowing at the right ureteropelvic junction. An accessory right renal artery does cross at this level and could be the underlying cause. However, a urogram or pouchogram could be considered to evaluate for an underlying intrinsic obstruction. 3.Nodefinite metastatic disease in the chest, abdomen, or pelvis. Signed: Gio Prasad MDReport Verified Date/Time: 07/17/2020 15:58:18 [id number] 10:41:00 Test Item Value Reference Range Interpretation Comments POC-CREATININE 0.8 mg/dL 0.6-1.3 : TESTED AT [facility] ([facility]) (test [address] [facility] E [facility] code = 1859) A, [facility] 7 9005: Contract Graphic Designer/Techni kylie ID = [id number] for MANNY ISLAS POC-EGFR 70 mL/min/1.73M2 ([facility]) (test code = 1860) POCT URINALYSIS [id number] 00:00:00 Test Item Value Reference Range Interpretation Comments COLOR UA (test code = 5778-6) Yellow YELLOW/STRAW CLARITY UA (test code = 37469-8) Clear CLEAR GLUCOSE UA (test code = 5792-7) Negative NEGATIVE BILIRUBIN UA (test code = 5770-3) Negative NEGATIVE KETONES UA (test code = 90842-0) Negative NEGATIVE SPECIFIC GRAVITY UA (test code [...] NEGATIVE REDUCING SUBSTANCES URINE (test code = 61527-4) Lab Interpretation (test code = Abnormal 84647-4) [facility] [id number] 13:05:00 Test Item Value Reference Range Interpretation Comments BUN (test code = BUN) 02-10 [facility]2020-10-23 13:05:00 Test Item Value Reference Range Interpretation Comments Creatinine Lvl (test code = Creatinine 0.83 0.60-0.93 Lvl) [facility]2020-10-23 13:05:00 Test Item Value Reference Range Interpretation Comments eGFR NON-AFR. [place] (test code = 69 eGFR NON-AFR. [place]) [facility] [id number] 13:05:00 Test Item Value Reference Range Interpretation Comments eGFR (test code = eGFR 81 ) [facility] [id number] 13:05:00 Test Item Value Reference Range Interpretation Comments B/C Ratio (test code = B/C NOT APPLICABLE 01-08 Ratio) [facility] [id number] 13:05:00 Test Item Value Reference Range Interpretation Comments BUN (test code = BUN) 02-10 [facility]2020-10-23 13:05:00 Test Item Value Reference Range Interpretation Comments Creatinine Lvl (test code = Creatinine 0.83 0.60-0.93 Lvl) [facility] [id number] 13:05:00 Test Item Value Reference Range Interpretation Comments eGFR NON-AFR. [place] (test code = 69 eGFR NON-AFR. [place]) [facility] [id number] 13:05:00 Test Item Value Reference Range Interpretation Comments eGFR (test code = eGFR 81 ) [facility] [id number] 13:05:00 Test Item Value Reference Range Interpretation Comments B/C Ratio (test code = B/C NOT APPLICABLE 01-08 Ratio) [facility], WITH IV [id number] 10:03:00Unlisted Reason for Exam - Click Yes and Enter Reason Below->YesUnlisted Reason for Exam->Malignant neoplasm of overlapping sites of bladderFINAL REPORT TECHNIQUE: CT of the chest, abdomen, and pelvis WITH intravenous co ntrast and WITHOUT oral contrast. Dose modulation, iterative reconstruction, and/or weight-based adjustment of the mA/kV was utilized to reduce the radiation dose to as low as reasonably achievable. INDICATION: Bladder cancer, staging COMPARISON: 12/27/2019. FINDINGS: LINES/TUBES: Right IJ approach portcatheter tip terminates at the cavoatrial junction.. LUNGS AND AIRWAYS: Central airways are patent. There is bibasilar atelectasis. No new or enlarging pulmonary nodule to.PLEURA: Trace right-sided pleural effusion..HEART AND MEDIASTINUM: Asymmetric enlargement and heterogeneity of the left thyroid lobe, unchanged.. No significant mediastinal, hilar, or axillary [...] cystectomy and hysterectomy with pelvic lymph node d issection. There is a right lower quadrant urinary [...] intrapelvic metastatic disease. Signed: Tyler Shankar MDReport VerifiedDate/Time: 04/26/2020 10:03:24 Reading Location: [facility] Reading Room - [place] [address] CT, [id number] 10:03:00Unlisted Reason for Exam - Click Yes and Enter Reason Below- >YesUnlisted Reason for Exam->Malignant neoplasm of overlapping sites of bladderFINAL REPORT TECHNIQUE: CT of the chest, abdomen, and pelvis WITH intravenous contrast and WITHOUT oral contrast. Dose modulation, iterative reconstruction, and/or weight-based adjustment of the mA/kV was utilized to reduce the radiation dose to as low as reasonably achievable. IND ICATION: Bladder cancer, staging COMPARISON: 12/27/2019. FINDINGS: LINES/TUBES: Right IJ approach portcatheter tip terminates at the cavoatrial junction.. LUNGS AND AIRWAYS: Central airways are patent. There is bibasilar atelectasis. No new or enlarging pulmonary nodule to.PLEURA: Trace right-sided pleural effusion..HEART AND MEDIASTINUM: Asymmetric enlargement and heterogeneity of the left thyroid lobe, unchanged.. No significant mediastinal, hilar, or axillary [...] focal collection or free air..LYMPH NODES: No lymphadenopathy.VESS ELS: Unremarkable. GI TRACT: Status post right hemicolectomy. [...] or intrapelvic metastatic disease. Signed: Tyler Shankar MDRepranken jordan [facility] VerifiedDate/Time: 04/26/2020 10:03:24 Reading Location: [facility] Diagnostic Imaging Reading Room - [place] [address] -[id number] 09:03:00 Test Item Value Reference Range Interpretation Comments POC-CREATININE 0.8 mg/dL 0.6-1.3 : TESTED AT [facility] ([facility]) ([facility] [facility] code = 1859) [facility] 7 7680: Contract Graphic Designer/Techni kylie ID = [id number] for GERSON WOODSON ICA POC-EGFR 70 mL/min/1.73M2 ([facility]) (test code = 1860) COMPREHENSIVE METABOLIC [id number] 07:49:43 Test Item Value Reference Range Interpretation Comments GLUCOSE (test code = See_Comment H [Autom ated message] 2345-7) The system [facility] generated this result transmitted ref erence range: 70 - 99 MG/DL. The reference r anil was not used to interpret this result as normal/abnor mal. BLOOD UREA NITROGEN See_Comment [Automa tom message] (test code = 3091-6) The [employer] tem which generated this result transmitted ref erence range: 8 - 23 M G/DL. The reference r anil was not used to interpret this result as normal/abnor mal. CREATININE (test code = See_Comment [Au tomated message] 2160-0) The system [facility] generated this result transmitted ref erence range: 0.60 - 1 .30 MG/DL. The refe rence range was not u sed to interpret this result as normal/abnor mal. EGFR AA (test code = See_Comment [Autom ated message] 86792-3) The system [facility] generated this result transmitted ref erence range: >60 ML/MIN/1.73. Th e reference range was not used to int erpret this result as normal/abnormal . EGFR (test code = See_Comment [Automate d message] 86817-3) The system [facility] generated this result transmitted ref erence range: >60 ML/MIN/1.73. Th e reference range was not used to int erpret this result as normal/abnormal . BUN/CREAT RATIO (test See_Comment [Auto mated message] code = 3097-3) The system [facility] generated this result transmitted ref erence range: 6 - 28 R ATIO. The reference r anil was not used to interpret this result as normal/abnor mal. SODIUM (test code = See_Comment [Automa tom message] 2951-2) The system [facility] generated this result transmitted ref erence range: 133 - 14 6 MEQ/L. The refe rence range was not u sed to interpret this result as normal/abnor mal. POTASSIUM (test code = See_Comment [Aut omated message] 5203-3) The system [facility] generated this result transmitted ref erence range: 3.5 - 5. 4 MEQ/L. The refe rence range was not u sed to interpret this result as normal/abnor mal. CHLORIDE (test code = See_Comment [Auto mated message] 4872-0) The system [facility] generated this result transmitted ref erence range: 95 - 107 MEQ/L. The reference r anil was not used to interpret this result as normal/abnor mal. CO2 (test code = See_Comment [Automated message] 1962-8) The system [facility] generated this result transmitted ref erence range: 19 - 31 MEQ/L. The reference r anil was not used to interpret this result as normal/abnor mal. CALCIUM (test code = See_Comment [Autom ated message] 09881-3) The system [facility] generated this result transmitted ref erence range: 8.5 - 10 .5 MG/DL. The refe rence range was not u sed to interpret this result as normal/abnor mal. PROTEIN TOTAL (test See_Comment [Automa tom message] code = 2885-2) The system [facility] generated this result transmitted ref erence range: 6.1 - 8. 3 G/DL. The reference r anil was not used to interpret this result as normal/abnor mal. ALBUMIN (test code = See_Comment [Autom ated message] 74889-1) The system [facility] generated this result transmitted ref erence range: 3.5 - 5. 2 G/DL. The reference r anil was not used to interpret this result as normal/abnor mal. GLOBULINS, SERUM, TOTAL See_Comment [Au tomated message] (test code = 10028-8) The sy stem which generated this result transmitted ref erence range: 1.9 - 3. 7 G/DL. The reference r anil was not used to interpret this result as normal/abnor mal. A/G RATIO (test code = See_Comment [Aut omated message] 1759-0) The system [facility] generated this result transmitted ref erence range: 1.0 - 2. 6 RATIO. The refe rence range was not u sed to interpret this result as normal/abnor mal. BILIRUBIN TOTAL (test See_Comment [Auto mated message] code = 1975-2) The system [facility] generated this result transmitted ref erence range: <=1.2 MG /DL. The reference r anil was not used to interpret this result as normal/abnor mal. ALKALINE PHOSPHATASE 58 U/L 40-142 (test code = 6768-6) AST (SGOT) (test code = 22 U/L 9-40 1920-8) ALT (SGPT) (test code = 17 U/L 5-40 Unl ess Otherwise 1744-2) Indicated, All Testing Performed At: [facility], [address] [place] [address] Laborator y Director: Robbie Wagner M.D. CLIA Number [id number] Cap Accreditation N o. [id number] Lab Interpretation Abnormal (test code = 64636-9) [facility] W/AUTO DIFF WITH [id number] 06:08:57 Test Item Value Reference Range Interpretation Comments WHITE BLOOD CELL COUNT See_Comment [Aut omated message] (test code = 14692-7) The sy stem which generated this result transmitted ref erence range: 3.5 - 10 .0 K/UL. The refer ence range was not u sed to interpret this result as normal/abnor mal. RED BLOOD CELL COUNT See_Comment L [Autom ated message] (test code = 94150-2) The sy stem which generated this result transmitted ref erence range: 3.80 - 5 .20 M/UL. The refer ence range was not u sed to interpret this result as normal/abnor mal. HEMOGLOBIN (test code = See_Comment L [Au tomated message] 718-7) The system whic h generated this result transmitted ref erence range: 12.0 - 1 6.0 G/DL. The refer ence range was not u sed to interpret this result as normal/abnor mal. HEMATOCRIT (test code = 31.6 % 35-46 L 67236-3) MEAN CORPUSCULAR VOLUME 91.1 fL 80-99 (test code = 35555-8) MEAN CORPUSCULAR 29.7 PG 25-34 HEMOGLOBIN (test code = 72777-0) MEAN CORPUSCULAR See_Comment [Automated message] HEMOGLOBIN CONC (test The sy stem which code = 91844-9) generated th is result transmitted ref erence range: 31.0 - 3 6.0 G/DL. The refer ence range was not u sed to interpret this result as normal/abnor mal. RED CELL DISTRIBUTION 14.5 % 11.5-15 WIDTH (test code = 27922-8) NEUTROPHILS % (test code 62.8 % 40-75 = 01417-9) LYMPHOCYTES % (test code 23.4 % 20-45 = 14842-3) MONOCYTES % (test code = 9.4 % 4-12 60921-2) EOSINOPHILS % (test code 3.8 % 0-7 = 73985-4) BASOPHILS % (test code = 0.6 % 0-2 13713-5) PLATELET COUNT (test See_Comment Unless Otherwise code = 36853-3) Indicated, A ll Testing Perform ed At: [facility] [employer] [facility], [address] [place] [address] Laborator y Director: Robbie Wagner M.D. CLIA Number [id number] [place] Accreditation [place]. [id number] [Autom ated message] The sy stem which generated this result transmit tom reference range : 130 - 400 K/UL. The reference range was not used to int erpret this result as normal/abnormal . Lab Interpretation (test Abnormal code = 80426-4) [facility]2020-02-10 01:04:00 Test Item Value Reference Range Interpretation Comments SARS-COV2/RT-PCR (test code Negative Not Detected, Negative, = 6378265) See external report for linked test SARS-COV-2 PERFORMING LAB C[facility] (test code = 5141860) URINE [id number] 12:03:00 Test Item Value Reference Range Interpretation Comments CULTURE (BEAKER) (test >100,000 col/mL skin code = 1095) wendy HEMOGLOBIN AND [id number] 14:07:00 Test Item Value Reference Range Interpretation Comments HEMOGLOBIN (BEAKER) (test code = 7.5 GM/DL 11.2-15.7 L 410) HEMATOCRIT (BEAKER) (test code = 23.8 % 34.1-44.9 L 411) Contract Graphic Designer ID - [id number] METABOLIC [id number] 07:06:00 Test Item Value Reference Range Interpretation [...] S NOT APPLICABLE FOR DIALYSIS PATIEN TS. Contract Graphic Designer ID - [place] [id number] 07:03:00 Test Item Value Reference Range Interpretation Comments PHOSPHORUS (BEAKER) (test code = 3.7 mg/dL 2.3-4.7 604) Contract Graphic Designer ID - PIJACOB [id number] 07:03:00 Test Item Value Reference Range Interpretation Comments MAGNESIUM (BEAKER) (test code = 1.9 mg/dL 1.6-2.6 627) Contract Graphic Designer ID - [place] LHEMOGLOBIN AND [id number] 06:03:00 Test Item Value Reference Range Interpretation Comments HEMOGLOBIN (BEAKER) (test code = 7.3 GM/DL 11.2-15.7 L 410) HEMATOCRIT (BEAKER) (test code = 22.5 % 34.1-44.9 L 411) Contract Graphic Designer ID - [id number] METABOLIC [id number] 08:13:00 Test Item Value Reference Range Interpretation [...] S NOT APPLICABLE FOR DIALYSIS PATIEN TS. Contract Graphic Designer ID - JULI [id number] 08:10:00 Test Item Value Reference Range Interpretation Comments MAGNESIUM (BEAKER) (test code = 1.9 mg/dL 1.6-2.6 627) Contract Graphic Designer ID - JULI [id number] 08:10:00 Test Item Value Reference Range Interpretation Comments PHOSPHORUS (BEAKER) (test code = 4.2 mg/dL 2.3-4.7 604) Contract Graphic Designer ID - NTPOperator ID - JULI CHEMOGLOBIN AND [id number] 05:10:00 Test Item Value Reference Range Interpretation Comments HEMOGLOBIN (BEAKER) (test code = 8.1 GM/DL 11.2-15.7 L 410) HEMATOCRIT (BEAKER) (test code = 24.3 % 34.1-44.9 L 411) Contract Graphic Designer ID - [id number] 07:07:00 Test Item Value Reference Range Interpretation Comments PHOSPHORUS (BEAKER) (test code = 2.8 mg/dL 2.3-4.7 604) Contract Graphic Designer ID - [place] [id number] 07:07:00 Test Item Value Reference Range Interpretation Comments MAGNESIUM (BEAKER) (test code = 1.6 mg/dL 1.6-2.6 627) Contract Graphic Designer ID - [place] LBASIC METABOLIC [id number] 07:07:00 Test Item Value Reference Range Interpretation [...] S NOT APPLICABLE FOR DIALYSIS PATIEN TS. Contract Graphic Designer ID - [place] LHEMOGLOBIN AND [id number] 06:28:00 Test Item Value Reference Range Interpretation Comments HEMOGLOBIN (BEAKER) (test code = 8.0 GM/DL 11.2-15.7 L 410) HEMATOCRIT (BEAKER) (test code = 24.6 % 34.1-44.9 L 411) Contract Graphic Designer ID - [id number], CHEST, 1 VIEW, NON [id number] 18:35:00Reason for exam:->check PICC placementShould this be [...] slight increased opacity in the lower lobes, likelyatelectasis. Signed: Manny Mcclendon MDReport Verified Date/Time: 02/03/2020 18:35:36 Reading Location: [facility] Reading Room PHOSPHORUS 2020-02-03 07:55:00 Test Item Value Reference Range Interpretation Comments PHOSPHORUS (BEAKER) (test code = 2.4 mg/dL 2.3-4.7 604) Contract Graphic Designer ID - DA [id number] 07:55:00 Test Item Value Reference Range Interpretation Comments MAGNESIUM (BEAKER) (test code = 1.7 mg/dL 1.6-2.6 627) Contract Graphic Designer ID - DA FBASIC METABOLIC [id number] 07:55:00 Test Item Value Reference Range Interpretation [...] S NOT APPLICABLE FOR DIALYSIS PATIEN TS. Contract Graphic Designer ID - [place] FHEMOGLOBIN AND [id number] 06:56:00 Test Item Value Reference Range Interpretation Comments HEMOGLOBIN (BEAKER) (test code = 8.2 GM/DL 11.2-15.7 L 410) HEMATOCRIT (BEAKER) (test code = 24.2 % 34.1-44.9 L 411) Contract Graphic Designer ID - [id number] AND [id number] 19:28:00 Test Item Value Reference Range Interpretation Comments HEMOGLOBIN (BEAKER) (test code = 8.3 GM/DL 11.2-15.7 L 410) HEMATOCRIT (BEAKER) (test code = 25.0 % 34.1-44.9 L 411) Contract Graphic Designer ID - [id number] (HEMOGRAM ONLY)2020-02-02 05:09:00 Test [...] WBC 0-0 (BEAKER) (test code = 413) [id number] 04:19:00 Test Item Value Reference Range Interpretation Comments PHOSPHORUS (BEAKER) (test code = 1.9 mg/dL 2.3-4.7 L 604) Contract Graphic Designer TASHA ELAINE [id number] 04:19:00 Test Item Value Reference Range Interpretation Comments MAGNESIUM (BEAKER) (test code = 1.9 mg/dL 1.6-2.6 627) Contract Graphic Designer TASHA ELAINE LBASIC METABOLIC [id number] 04:19:00 Test Item Value Reference Range Interpretation [...] S NOT APPLICABLE FOR DIALYSIS PATIEN TS. Contract Graphic Designer ID - PIAYA LHEMOGLOBIN AND [id number] 04:00:00 Test Item Value Reference Range Interpretation Comments HEMOGLOBIN (BEAKER) 5.9 GM/DL 11.2-15.7 LL [address] alfonzo candelaria per (test code = 410) [id number] HEMATOCRIT (BEAKER) 18.0 % 34.1-44.9 L (test code = 411) Contract Graphic Designer ID - [id number] 13:30:00Surgical Pathology Report Case: [id number] Authorizing Provider: Vita Jaimes MD Collected: 01/30/2020 09:40 AM Ordering Location: [facility] Received: 01/30/2020 10:59 AM SERVICES Pathologist: Reinaldo Matta MD Specimens: A) - Lymph Node, RIGHT COMMON ILIAC LYMPH NODES B) - Lymph Node, RIGHT EXTERNAL ILIAC LYMPH NODES C) - Lymph Node, RIGHT OBTURATOR LYMPH NODES D) - Lymph Node, RIGHT INTERNAL ILIAC LYMPH NODES E) - Lymph Node, LEFT COMMON ILIAC LYMPH NODES F) - Lymph Node,LEFT EXTERNAL ILIAC LYMPH NODES G) - Lymph [...] LYMPH NODES (0/2)E. LYMPH NODES, LEFT COMMON ILIAC, DISSECTION: - FOUR BENIGN LYMPH NODES (0/4)F. LYMPH NODES, LEFT EXTERNAL ILIAC, DISSECTION: - FIVE BENIGN LYMPH NODES (0/5)G. LYMPH NODES, LEFT OBTURATOR, DISSECTION: - FIVE BENIGN LYMPH NODES (0/5)H. URETER, LEFT DISTAL, EXCISION: - NO PATHOLOGIC DIAGNOSISI. URETER, RIGHTDISTAL, EXCISION: - NO PATHOLOGIC DIAGNOSISJ. URINARY BLADDER, ANTERIOR PELVIC EXENTERATION: - UROTHE LIAL CARCINOMA, HIGH GRADE (WHO GRADE 3) WITH [...] THE TIP Signing Pathologist Direct Phone Line: [phone] signed by Reinaldo Matta MD on 02/01/2020 at 1:30 PMAll of the residual invasive tumor is of the plamacytoid/signet ring cell type. URINARY BLADDER:Cystectomy, Anterior Exenteration (Bladder - J)8th Edition - [...] (pT): pT3a Regional Lymph Nodes (pN): pN0 76286 x [id number] X [id number] diagnosis: Malignant neoplasm of the urinary bladder. Procedure: Radical cystectomy with creation of continent diversion, bilateral pelvic lymph node dissection. A. Right common iliac lymph nodes; B. Right external iliac lymph nodes; C. Right obturator lymph node; D. Right internal iliaclymph node; E. Left common iliac lymph nodes;F. [...] x 0.8 cm. The specimen is dissected to reveal two lymph nodes measuring up to 1.5 [...] 2.0 cm. A surgical clip is identified wit hin the specimen. The specimen is resected to reveal eight lymph nodes ranging in size from 0.5 x 0.4 x 0.4 up to the largest measuring 4.5 x 1.5 x 0.6 cm. Section code: C1, five lymph nodes; C2, two lymph nodes; C3 to C4, the largest lymph node serially sectioned. D. Received in formalin labeled withthe patient's name, accession number and "right internal [...] two lymph nodes.F. Received in formalin labeled with the patient's name, accession number and "left external iliac lymph nodes" are multiple fragments of adipose tissue that measures in aggregate 5.8 x 5.5 x 1.3 cm. A surgical clip is identified within the specimen. Grossly, five lymph nodes are identified ranging from 0.7 x 0.6 x 0.4 up to the largestmeasuring 2.1 x 1.8 x 0.4 cm. Section code: F1, three lymph nodes; F2, one lymph node; F3, one lymph node. G. Received in formalin labeled with the patient's name, accession number and "left obturator lymph node" are multiple fragments of adipose tissue that measures in aggregate 8.0 x 5.5 x 1.1 cm. Asurgical clip is identified within the specimen. The specimen is dissected to reveal 5 lymph nodes ranging in size from 0.5 x 0.4 x 0.4 up to the largest measuring 5.3 x 1.7 x 0.5 cm. Section code: G1,four lymph nodes; G2 to G3, one lymph [...] entirely submitted for frozen section as FSI. [place]/plKendra. Received in formalin labeled with the patient's [...] cm in length x 3.5 cm in diameter. The ureteric margins are received clipped. The bladder [...] #1, 2.3 cm from the urethral margin, 1.2 cm from the right ureteric margin and 0.5 cm from the inked anterior margin. Additionally a hyperemic area measuring 0.6 x 0.5 cm is seen on the bladder dome along the posterior wall located 0.6 cm superior to lesion #1. The remainder of the bladder mucosa is edematous and congested; however, no other gross lesions are identified. The ureteric orifices are unremarkable. The vaginal mucosa is grossly unremarkable.The uterus shows an area of serosal disruption measuring 0.5 x 0.5 cm on the fundus along the anterior aspect. The cervical os is occluded. The ectocervix is buck-white and smooth. The endocervical canal measures 2.5 cm in length. The endometrial cavity measures 1.5 cm from ijgwx-zz-ofsir and3.5 cm in length. The endometrium measures 0.2 cm in thickness. An endometrial polyp measuring 0.6 x0.5 x 0.5 cm is seen on the anterior and superior aspect of the endometrial cavity. The myometrium is buck and diffusely trabeculated and measures up to 1.2 cm in thickness. A 0.5 x 0.5 x 0.5 cm whorledintramural myometrial nodule is present. No other lesions [...] posterior - black. Section code: J1, urethral margin, en face; J2 to J6, bladder ulcerated lesion (lesion #1 with posterior wall); J7, lesion with closest right lateral margin; J8, anterior margin closest to the lesion; J9, left lateral margin closest to the lesion; J10 to J12, smaller lesion (lesion #2) with closest anterior margin; J13, right ureteric orifice; J14, hyperemic bladder mucosa; J15, trigone, motor vehicle field representative section; J16, bladder wall with vagina; [...] cm. The specimen is sectioned to reveal a lumenmeasuring 0.4 cm in diameter. Section code: L1, appendix, surgical margin at distal tip; L2, additional motor vehicle field representative sections from appendix and the mesoappendix. [place]/plFROZEN SECTION DIAGNOSIS: FSH: URETER, LEFT DISTAL MARGIN: - NEGATIVE FOR MALIGNANCY This is informed by Dr. Amaro to Dr. Jaimes on January 29, at 11:19 a.m. FSI. RIGHT URETER, RIGHT DISTAL MARGIN: - NEGATIVE FOR MALIGNANCYThis is informed by Dr. Amaro to Dr. Jaimes on January 29 at 11:19 a.m.A-L Performed.HEMOGLOBIN AND [id number] 10:52:00 Test Item Value Reference Range Interpretation Comments HEMOGLOBIN (BEAKER) (test code = 7.1 GM/DL 11.2-15.7 L 410) HEMATOCRIT (BEAKER) (test code = 21.4 % 34.1-44.9 L 411) Contract Graphic Designer ID - [id number] 06:15:00 Test Item Value Reference Range Interpretation Comments PHOSPHORUS (BEAKER) (test code = 2.5 mg/dL 2.3-4.7 604) Contract Graphic Designer ID - PIAYA [id number] 06:15:00 Test Item Value Reference Range Interpretation Comments MAGNESIUM (BEAKER) (test code = 1.9 mg/dL 1.6-2.6 627) Contract Graphic Designer ID - PIAYA LBASIC METABOLIC [id number] 06:15:00 Test Item Value Reference Range Interpretation [...] S NOT APPLICABLE FOR DIALYSIS PATIEN TS. Contract Graphic Designer ID - PIAYA LHEMOGLOBIN AND [id number] 05:33:00 Test Item Value Reference Range Interpretation Comments HEMOGLOBIN (BEAKER) (test code = 7.0 GM/DL 11.2-15.7 L 410) HEMATOCRIT (BEAKER) (test code = 20.9 % 34.1-44.9 L 411) Contract Graphic Designer ID - [id number] METABOLIC [id number] 05:02:00 Test Item Value Reference Range Interpretation [...] S NOT APPLICABLE FOR DIALYSIS PATIEN TS. Contract Graphic Designer ID - [id number] 04:59:00 Test Item Value Reference Range Interpretation Comments PHOSPHORUS (BEAKER) (test code = 4.0 mg/dL 2.3-4.7 604) Contract Graphic Designer ID - [id number] 04:59:00 Test Item Value Reference Range Interpretation Comments MAGNESIUM (BEAKER) (test code = 1.4 mg/dL 1.6-2.6 L 627) Contract Graphic Designer ID - DBHEMOGLOBIN AND [id number] 04:41:00 Test Item Value Reference Range Interpretation Comments HEMOGLOBIN (BEAKER) (test code = 9.4 GM/DL 11.2-15.7 L 410) HEMATOCRIT (BEAKER) (test code = 27.9 % 34.1-44.9 L 411) Contract Graphic Designer ID - [id number] METABOLIC [id number] 16:33:00 Test Item Value Reference Range Interpretation [...] S NOT APPLICABLE FOR DIALYSIS PATIEN TS. Contract Graphic Designer ID - [id number] 16:29:00 Test Item Value Reference Range Interpretation Comments PHOSPHORUS (BEAKER) (test code = 5.0 mg/dL 2.3-4.7 H 604) Contract Graphic Designer ID - [id number] 16:29:00 Test Item Value Reference Range Interpretation Comments MAGNESIUM (BEAKER) (test code = 1.2 mg/dL 1.6-2.6 L 627) Contract Graphic Designer ID - BSCBC W/PLT COUNT & AUTO [id number] 16:14:00 Test Item Value Reference Range Interpretation [...] (BEAKER) (test code = 2801) BLOOD GAS, [id number] 16:08:00 Test Item Value Reference Range Interpretation [...] code = 1819) 100.0 % SODIUM NA-STAT [id number] 16:08:00 Test Item Value Reference Range Interpretation Comments SODIUM (BEAKER) (test code = 381) 133 meq/L 136-145 L GLUCOSE-STAT [id number] 16:08:00 Test Item Value Reference Range Interpretation Comments GLUCOSE RANDOM (BEAKER) (test code 224 mg/dL 70-110 H = 652) HGB/HCT (H&H) - STAT [id number] 16:08:00 Test Item Value Reference Range Interpretation Comments HEMOGLOBIN (BEAKER) (test code = 10.5 g/dL 12.0-15.0 L 410) HEMATOCRIT (BEAKER) (test code = 31.0 % 36.0-45.0 L 411) POTASSIUM-STAT [id number] 16:05:00 Test Item Value Reference Range Interpretation Comments POTASSIUM (BEAKER) (test code = 3.7 meq/L 3.6-5.5 379) CALCIUM, [id number] 14:59:00 Test Item Value Reference Range Interpretation Comments CALCIUM IONIZED (BEAKER) (test 1.07 mmol/L 1.12-1.27 L code = 698) PH, BLOOD (BEAKER) (test code = 7.29 1810) BLOOD GAS, [id number] 14:55:00 Test Item Value Reference Range Interpretation [...] = 1819) 60.0 % Temp 36.3CSODIUM NA-STAT [id number] 14:55:00 Test Item Value Reference Range Interpretation Comments SODIUM (BEAKER) (test code = 381) 134 meq/L 136-145 L Temp 36.3CGLUCOSE-STAT [id number] 14:55:00 Test Item Value Reference Range Interpretation Comments GLUCOSE RANDOM (BEAKER) (test code 226 mg/dL 70-110 H = 652) Temp 36.3CHGB/HCT (H&H) - STAT [id number] 14:55:00 Test Item Value Reference Range Interpretation Comments HEMOGLOBIN (BEAKER) (test code = 10.4 g/dL 12.0-15.0 L 410) HEMATOCRIT (BEAKER) (test code = 31.0 % 36.0-45.0 L 411) Temp 36.3CPOTASSIUM-STAT [id number] 14:51:00 Test Item Value Reference Range Interpretation Comments POTASSIUM (BEAKER) (test code = 3.8 meq/L 3.6-5.5 379) Temp 36.3CBLOOD GAS, [id number] 12:59:00 Test Item Value Reference Range Interpretation [...] (test code = 1819) 60.0 % TEMP-35.7CCALCIUM, [id number] 12:59:00 Test Item Value Reference Range Interpretation Comments CALCIUM IONIZED (BEAKER) (test 1.12 mmol/L 1.12-1.27 code = 698) PH, BLOOD (BEAKER) (test code = 7.37 1810) SODIUM NA-STAT [id number] 12:59:00 Test Item Value Reference Range Interpretation Comments SODIUM (BEAKER) (test code = 381) 133 meq/L 136-145 L TEMP-35.7CPOTASSIUM-STAT [id number] 12:59:00 Test Item Value Reference Range Interpretation Comments POTASSIUM (BEAKER) (test code = 3.4 meq/L 3.6-5.5 L 379) TEMP-35.7CGLUCOSE-STAT [id number] 12:59:00 Test Item Value Reference Range Interpretation Comments GLUCOSE RANDOM (BEAKER) (test code 193 mg/dL 70-110 H = 652) TEMP-35.7CHGB/HCT (H&H) - STAT [id number] 12:59:00 Test Item Value Reference Range Interpretation Comments HEMOGLOBIN (BEAKER) (test code = 8.1 g/dL 12.0-15.0 L 410) HEMATOCRIT (BEAKER) (test code = 24.0 % 36.0-45.0 L 411) TEMP-35.7CBLOOD GAS, [id number] 11:41:00 Test Item Value Reference Range Interpretation [...] code = 1819) 60.0 % SODIUM NA-STAT [id number] 11:41:00 Test Item Value Reference Range Interpretation Comments SODIUM (BEAKER) (test code = 381) 131 meq/L 136-145 L POTASSIUM-STAT [id number] 11:41:00 Test Item Value Reference Range Interpretation Comments POTASSIUM (BEAKER) (test code = 3.4 meq/L 3.6-5.5 L 379) GLUCOSE-STAT [id number] 11:41:00 Test Item Value Reference Range Interpretation Comments GLUCOSE RANDOM (BEAKER) (test code 176 mg/dL 70-110 H = 652) HGB/HCT (H&H) - STAT [id number] 11:41:00 Test Item Value Reference Range Interpretation Comments HEMOGLOBIN (BEAKER) (test code = 9.2 g/dL 12.0-15.0 L 410) HEMATOCRIT (BEAKER) (test code = 27.0 % 36.0-45.0 L 411) CALCIUM, [id number] 11:41:00 Test Item Value Reference Range Interpretation Comments CALCIUM IONIZED (BEAKER) (test 1.08 mmol/L 1.12-1.27 L code = 698) PH, BLOOD (BEAKER) (test code = 7.33 1810) PH, [id number] 11:38:00 Test Item Value Reference Range Interpretation Comments PH ARTERIAL (BEAKER) (test code = 383) 7.35 7.35-7.45 POTASSIUM-STAT [id number] 09:51:00 Test Item Value Reference Range Interpretation Comments POTASSIUM (BEAKER) (test code = 2.3 meq/L 3.6-5.5 LL 379) TEMP-34.8CALCIUM, [id number] 09:50:00 Test Item Value Reference Range Interpretation Comments CALCIUM IONIZED (BEAKER) (test 1.03 mmol/L 1.12-1.27 L code = 698) PH, BLOOD (BEAKER) (test code = 7.40 1810) BLOOD GAS, [id number] 09:49:00 Test Item Value Reference Range Interpretation [...] code = 1819) 60.0 % TEMP-34.8SODIUM NA-STAT [id number] 09:49:00 Test Item Value Reference Range Interpretation Comments SODIUM (BEAKER) (test code = 381) 130 meq/L 136-145 L TEMP-34.8GLUCOSE-STAT [id number] 09:49:00 Test Item Value Reference Range Interpretation Comments GLUCOSE RANDOM (BEAKER) (test code 119 mg/dL 70-110 H = 652) TEMP-34.8HGB/HCT (H&H) - STAT [id number] 09:49:00 Test Item Value Reference Range Interpretation Comments HEMOGLOBIN (BEAKER) (test code = 11.6 g/dL 12.0-15.0 L 410) HEMATOCRIT (BEAKER) (test code = 34.0 % 36.0-45.0 L 411) TEMP-34.8CBC W/PLT COUNT & AUTO [id number] 07:16:00 Test Item Value Reference Range Interpretation [...] 0-1 PERCENT (BEAKER) (test code = 2801) [id number] 14:45:00Medical Cytology Report Case: [id number] Authorizing Provider: Vita Jaimes MD Collected: 01/18/2020 02:09 PM [facility] Received: 01/18/2020 03:29 PM SERVICES Pa thologist: Reinaldo Matta MD Specimen: Urine, Bladder Wash URINE, BLADDER WASHING (CYTOSPINS): - NEGATIVE FOR MALIGNANCY Signing Pathologist Direct Phone Line: [phone] signed by Reinaldo Matta MD on 01/19/2020 at 2:45 [id number] risk 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 who presents for restaging TURBT prior to RCURINE, BLADDER [id number] mls colorless fluid; 4 cytospinsCollected: [id number]: [id number] [facility], Department of Pathology, [address] [place] [address], [facility], [facility] of [facility], [address] [place] [address], [facility], [facility] of [facility], [address] [place] [address], IGKLWC [id number] 13:07:00Surgical Pathology Report Case: [id number] Authorizing Provider: Vita Jaimes MD Collected: 01/18/2020 02:31 PM Ordering Location: [facility] PERIOPERATIVE Received: 01/18/2020 03:17 PM SERVICES Pathologist: [...] SQUAMOUS METAPLASIA, NEGATIVE FOR MALIGNANCY Signing Pathologist Direct PhoneLine: [phone] signed by Reinaldo Matta MD on 01/19/2020 at 1:07 PM90% of this tumor shows the plasmacytoid morphology as documented on a previous biopsy.22263 x 5 Malignant neoplasm of overlapping sites of bladder A. Bladder biopsy, right wallB. Bladder biopsyC. Bladder biop syB. Bladder biopsyE. Bladder biopsyA. Received in formalin labeled with the patient's name, accession number and "right posterior lateral bladder wall" is a 1.5 x 0.7 x 0.3 cm aggregate of buck-pink soft tissue which is submitted in toto [...] Received in formalin labeled the patient's name, accession number and "bladder biopsy 9:00 bladder neck" is a 0.1 x 0.1 by less than 0.1 cm lam-white soft tissue which is submitted in toto in A1.JONATHAN Santizo ([facility])cmPerformed.CYTOLOGY [id number] 17:00:00 Test Item Value Reference Range Interpretation Comments CYTOLOGY RESULT POINTER See Separate Report (BEAKER) (test code = 2629) XR LUMBAR SPINE 2 VIEWS AP AND [id number] 21:07:27Lumbar Spine Radiographs: 3 views HISTORY: PainCOMPARISON: None available. DISCUSSION:Some of the osseous structures are partially obscured by stool and bowelgas. There are five non-rib bearing lumbar vertebral bodies.The alignment of the spine is within normal limits.No displaced fracture or compression deformity is identified.Vertebral body heights are maintained.Multilevel mild to moderate degenerative changes, marked by intervertebraldisc space narrowing and osteophytosis.Mild L5-S1 facet arthropathy. IMPRESSION:No acute radiographic abnormality.Multilevel tovs-wm-pccdyttw degenerative changes.Signed by: Dr. Ad Landa MD on 01/06/2020 4:07 PM Luiz, Rad Results In - 01/06/2020 4:10 PM CDTLumbar Spine Radiographs: 3 views HISTORY: PainCOMPARISON: None available.DISCUSSION:Some of the osseous structures are partially obscured by stool and bowelgas.There are five non-rib bearing lumbar vertebral bodies.The alignment of the spine is within normal limits.No displaced fracture or compression deformity is identified.Vertebral body heights are maintained.Multilevel mild to moderate degenerativechanges, marked by intervertebraldisc space narrowing and osteophytosis.Mild L5-S1 facet arthropathy.IMPRESSION:No acute radiographic abnormality.Multilevel tnla-bo-eghutudi degenerative changes.Signedby: Dr. Ad Landa MD on 01/06/2020 4:07 PM[facility] W ABSOLUTE NEUTROPHIL [id number] 14:41:02 Test Item Value Reference Range Interpretation Comments WHITE BLOOD CELL COUNT See_Comment H [Aut omated message] (test code = 91907-6) The sy stem which generated this result transmitted ref erence range: 3.5 - 10 .0 K/UL. The refer ence range was not u sed to interpret this result as normal/abnor mal. RED BLOOD CELL COUNT See_Comment [Autom ated message] (test code = 57976-9) The sy stem which generated this result transmitted ref erence range: 3.80 - 5 .20 M/UL. The refer ence range was not u sed to interpret this result as normal/abnor mal. HEMOGLOBIN (test code See_Comment [Auto mated message] = 718-7) The system [employer] generated this result transmitted ref erence range: 12.0 - 1 6.0 G/DL. The refer ence range was not u sed to interpret this result as normal/abnor mal. HEMATOCRIT (test code 38.3 % 35-46 = 12296-3) MEAN CORPUSCULAR 90.1 fL 80-99 VOLUME (test code = 79620-0) MEAN CORPUSCULAR 29.4 PG 25-34 HEMOGLOBIN (test code = 30328-1) MEAN CORPUSCULAR See_Comment [Automated message] HEMOGLOBIN CONC (test The sy stem which code = 07004-6) generated th is result transmitted ref erence range: 31.0 - 3 6.0 G/DL. The refer ence range was not u sed to interpret this result as normal/abnor mal. RED CELL DISTRIBUTION 18.1 % 11.5-15 H WIDTH (test code = 92851-4) NEUTROPHILS % (test 51 % 40-75 SEGMENT ED code = 29099-3) NEUTROPHILS, MANUAL DIFFERENTIAL. BANDS % (test code = 5 % 0-8 28545-7) LYMPHOCYTES % (test 32 % 20-45 code = 94992-1) MONOCYTES % (test code 9 % 4-12 = 60092-9) EOSINOPHILS % (test 1 % 0-7 code = 01554-3) BASOPHILS % (test code 1 % 0-2 = 49813-2) METAMYELOCYTES PERCENT 1 % See_Comment H [Aut omated message] (test code = 79261-3) The sy stem which generated this result transmitted ref erence range: 0.0. The reference range was not used to int erpret this result as normal/abnormal . PLATELET COUNT (test See_Comment [Autom ated message] code = 76790-9) The system w [employer] generated this result transmitted ref erence range: 130 - 40 0 K/UL. The refer ence range was not u sed to interpret this result as normal/abnor mal. NEUTROPHILS ABSOLUTE See_Comment [Autom ated message] COUNT (test code = The syste m which 48447-5) generated this result transmitted ref erence range: 1.50 - 7 .50 K/UL. The refer ence range was not u sed to interpret this result as normal/abnor mal. COMMENTS (test code = (NOTE) FEW E LLIPTOCYTES 45263-2) SLIGHT ANISOCYT OSIS PLATELETS APPEA R ADEQUATE PLATEL ETS APPEAR NORMAL T ESTING PERFORMED AT [facility], [place] [place], [place] [address] CLIA NO. [id number] Unless Otherwis e Indicated, All Testing Perform ed At: [facility], [address] [place] [address] Laborator y Director: Robbie Wagner M.D. CLIA Number [id number] Cap Accreditation N o. [id number] BALBIR (test code = BALBIR) PT FASTING Lab Interpretation Abnormal (test code = 59877-8) [facility] [id number] 14:32:27 Test Item Value Reference Range Interpretation Comments GLUCOSE (test code = See_Comment [Autom ated message] 2345-7) The system [facility] generated this result transmitted ref erence range: [...] [Auto mated message] = 2160-0) The system [facility] generated this result transmitted ref erence range: 0.60 - 1 .30 MG/DL. The refe rence range was not u sed to interpret this result as normal/abnor mal. EGFR AA (test code = See_Comment [Autom ated message] 44086-3) The system [facility] generated this result transmitted ref erence range: >60 ML/MIN/1.73. Th e reference range was not used to int erpret this result as normal/abnormal . EGFR (test code = See_Comment [Automate d message] 02580-1) The system [facility] generated this result transmitted ref erence range: >60 ML/MIN/1.73. Th e reference range was not used to int erpret this result as normal/abnormal . BUN/CREAT RATIO (test See_Comment [Auto mated message] code = 3097-3) The system [employer] generated this result transmitted ref erence range: 6 - 28 R ATIO. The reference r anil was not used to interpret this result as normal/abnor mal. SODIUM (test code = See_Comment [Automa tom message] 2951-2) The system [facility] generated this result transmitted ref erence range: 133 - 14 6 MEQ/L. The refe rence range was not u sed to interpret this result as normal/abnor mal. POTASSIUM (test code See_Comment [Autom ated message] = 2823-3) The system [facility] generated this result transmitted ref erence range: 3.5 - 5. 4 MEQ/L. The refe rence range was not u sed to interpret this result as normal/abnor mal. CHLORIDE (test code = See_Comment [Auto mated message] 5-0) The system [facility] generated this result transmitted ref erence range: 100 - 11 2 MEQ/L. The refe rence range was not u sed to interpret this result as normal/abnor mal. CO2 (test code = See_Comment [Automated message] 1963-8) The system [facility] generated this result transmitted ref erence range: 21 - 30 MEQ/L. The reference r anil was not used to interpret this result as normal/abnor mal. CALCIUM (test code = See_Comment [Autom ated message] 36628-8) The system [facility] generated this result transmitted ref erence range: 8.5 - 10 .5 MG/DL. The refe rence range was not u sed to interpret this result as normal/abnor mal. PROTEIN TOTAL (test See_Comment [Automa tom message] code = 2885-2) The system [employer] generated this result transmitted ref erence range: 6.1 - 8. 1 G/DL. The reference r anil was not used to interpret this result as normal/abnor mal. ALBUMIN (test code = See_Comment [Autom ated message] 67753-2) The system [facility] generated this result transmitted ref erence range: 3.4 - 4. 8 G/DL. The reference r anil was not used to interpret this result as normal/abnor mal. GLOBULINS, SERUM, See_Comment [Automate d message] TOTAL (test code = The syste m which 80495-9) generated this result transmitted ref erence range: 1.9 - 3. 7 G/DL. The reference r anil was not used to interpret this result as normal/abnor mal. A/G RATIO (test code See_Comment [Autom ated message] = 1759-0) The system [facility] generated this result transmitted ref erence range: 1.0 - 2. 6 RATIO. The refe rence range was not u sed to interpret this result as normal/abnor mal. BILIRUBIN TOTAL (test See_Comment [Auto mated message] code = 1975-2) The system [employer] generated this result transmitted ref erence range: <=1.2 MG /DL. The reference r anil was not used to interpret this result as normal/abnor mal. ALKALINE PHOSPHATASE 99 U/L 30-132 (test code = 6768-6) AST (SGOT) (test code 24 U/L 7-56 = 1920-8) ALT (SGPT) (test code 17 U/L 3-47 TESTI NG PERFORMED AT = 1744-2) [facility], [place] [place], [place] [address] CLIA NO. [id number] Unless Otherwise Indic ated, All Testing Per formed At: [facility], [address] [place] [address] Laborator y Director: Robbie Wagner M.D. CLIA Number [id number] Cap Accreditation N o. [id number] BALBIR (test code = BALBIR) PT FASTING [facility] [id number] 14:32:13 Test Item Value Reference Range Interpretation Comments MAGNESIUM (test code See_Comment TESTIN G PERFORMED AT = 67395-0) [facility], [place] [facility] [address] [place] [address] CLIA N O. [id number] Unle ss Otherwise Indic ated, All Testing Per formed At: [facility], [address] [place] [address] Laboratory Dire ctor: Robbie de los santos M.D. CLIA Number [id number] Cap Accreditati on No. [Autom ated message] The sy stem which generated this result transmit tom reference range : 1.6 - 2.6 MG/DL. The reference range was not used to interpr et this result as normal/abnormal . BALBIR (test code = PT FASTING BALBIR) [facility] HospitalMYOCARD PERFUSION - [id number] 20:00:41: 1. Normal myocardial perfusion study.2. No Regadenoson ( Lexiscan) induced perfusion defects suggestive of ischemia3. Normal LV size, EF of 73 % with normal regional wall motion and left ventricular thickening. Interpreting Physician: Bakari Lai MD Ht Readings from Last 1 Encounters: 12/14/19 5' 2" (1.575 m) Wt Readings from Last 1 Encounters: 12/14/19 155 lb (70.3 kg) Referring Provider: Manny Devlin MD Indication: 1. Essential hypertension 2. Dyslipidemia [...] patient did develop significant symptoms, which included flush ing and dyspnea. 50 mg IV aminophylline administered. [...] Score=0; Summed Rest Score=0; Summed Difference Score 0 The post stress [...] 155 lb (70.3 kg) Referring Provider: Manny Devlin MDIndication: 1. Essential hypertension 2. Dyslipidemia 3.Precordial pain 4. Impaired mobility 5. Malignant neoplasm [...] stress was adequate. The patient did develop significantsymptoms, which included flushing and dyspnea. 50 mg [...] imaging was performed approximately 60 minutes after stress.Findings:The study quality is adequate.No attenuation artifact was [...] and left ventricular thickening.The left ventricle is normal in size. TID Ratio: Leslie lIMPRESSION:1. Normal myocardial perfusion study.2. No Regadenoson ( Lexiscan) induced perfusion defects suggestive of ischemia3. Normal LV size, EF of 73 % with normal regional wall motion and left ventricular thickening.Interpreting Physician: Bakari Lai [facility], [id number] 14:27:34REPORT Pat.Name: ALEXANDRIA MERCADO.ID: [id number] .Date: 12/19/2019 Refer.MD: MANNY DEVLIN Exam Time: 9:08:00 AM Study Type:Routine Echo Height: 62in Weight: 155lb BSA: 1.72 m2 Age: 2 1945,74Y Sex: FEMALE BP: 138/78 HR: 55 bpm Sonogrphr: Karli Watt [facility] Echo Event ID:[id number] Order ID: [id number] Reason for Study:Cardiac evaluation, LV function assessmentHistory / Clinical:HTN, chest pain Procedures:[id number],COMPLETE Race: ++++++++++++++++++++++++++++++++++++SUMMARY: ++++++++++++++++++++++++++++++++++++1. Left ventricular chamber size (by vol index) is normal. No evidenceof LV hypertrophy. All of the LV segments contract normally. Global LVsystolic function is normal. LVEF by quantitative assessment is normal(> 60%). Grade 1 diastolic dysfunction (impaired relaxation andlow- normal LA pressure). 2. The right ventricular chamber size and systolic function are withinnormal limits. 3. No significant valvular abnormality 4. Estimated Peak systolic PA pressure is 25-30 mm Hg. No prior exam available for comparison. ++++++++++++++++++++++++++++++++++++FINDINGS:+++++ +++++++++++++++++++++++++++++++ Rhythm/BP: Sinus bradycardia during the exam.LV: All of the LV segments contract normally. Global LV systolic function is normal. Left ventricular chamber size (by vol index) is normal. No evidence of LV hypertrophy. LVEF by quantitative assessment is normal (> 60%).Grade 1 diastolic dysfunction (impaired relaxation and low-normal LA pressure).LA: LA size is normal.RV: The right ventricular chamber size and systolic function are within normal limits.RA: RA cavity size is normal.AV: No evidence of aortic stenosis. A trace of aortic regurgitation. Tri-leaflet Aortic Valve.MV: Mild MV leaflet thickening. A trace of mitral regurgitation.TV: Normal TV structure and function. Mild tricuspid regurgitation. Estimated Peak systolic PA pressure is 25-30 mm Hg.PV: A traceof pulmonary regurgitation. Normal PV structure and function by limited views and Doppler.AO: Aorticroot size (Sinus of Valsalva diameter) is normal.Pericard: No pericardial effusion is visualized.Systemic Veins: The estimated RA pressure by IVC dynamics 0-5 mmHg.Comparison: No prior exam available for comparison.Quality: Technically adequate exam. ++++++++++++++++++++++++++++++++++++MEASUREMENTS:+++ +++++++++++++++++++++++++++++++++ 2D Left Ventricle LVIDd 5.1 cm (3.6-5.2) ESV (BP) 29.6 cc Index 17.2 cc/m2 LVIDs 3 cm (2.3-3.9) EF (BP) 66 % LV%fs 42.2 % (18-42) LV SV BP 57.5 cc EDV (BP) 87.1 cc Index 50.6 cc/m2 Left Atrium LA a-p 3.4 cm LAESV (BP) 59.6 cc Index 34.7 cc/m2 LA Biplane LA VolBP 54.6ml Index 31.8 ml/m2 Right Atrium RA SysArea [...] cm AV mnVel 80 cm/s Area (TVI) 1.9cm2 (3- 5) AV pkPG 5 mmHg Area (Issa) 2 cm2 AV mnPG 3 mmHg MV Forward Flow MV DeTm 261 ms MV pkA 89.1cm/s MV pkE 81.8 cm/s (60-130) MV E/A 0.9 LVOT LVOT SV 56 cc LVOT TVI 24.8 cm LVOT MnVel 72.2 cm/s LVOT PkVel 102 cm/s LVOT MnPG 2 mmHg LVOT PkPG 4 mmHg RV Sm RV Sm Issa 16.4 cm/s Left Ventricle LmLat Em 8.8 cm/s LmLat E/Em 9.3 LmSep Em 7.9 cm/s LmSep E/Em 10.3 Tricuspid Valve TV Issa 254.2 cm/s MMODE T APSE TAPS Dim 2.5 cm Signed 12/19/2019 09:27 Bakari Vences M.D.DIGISONICS [facility] HospitalEJECTION FRACTION [id number] 00:00:00 Test Item Value Reference Range Interpretation Comments Ejection Fraction (test code = 01831-9) 60 % 55-75 [facility] W/AUTO DIFF WITH [id number] 15:23:26 Test Item Value Reference Range Interpretation Comments WHITE BLOOD CELL COUNT See_Comment H [Aut omated message] (test code = 23936-1) The sy stem which generated this result transmitted ref erence range: 3.5 - 10 .0 K/UL. The refer ence range was not u sed to interpret this result as normal/abnor mal. RED BLOOD CELL COUNT See_Comment [Autom ated message] (test code = 60805-6) The sy stem which generated this result transmitted ref erence range: 3.80 - 5 .20 M/UL. The refer ence range was not u sed to interpret this result as normal/abnor mal. HEMOGLOBIN (test code = See_Comment [Au tomated message] 718-7) The system [employer] generated this result transmitted ref erence range: 12.0 - 1 6.0 G/DL. The refer ence range was not u sed to interpret this result as normal/abnor mal. HEMATOCRIT (test code = 38.5 % 35-46 40197-2) MEAN CORPUSCULAR VOLUME 86.7 fL 80-99 (test code = 48907-6) MEAN CORPUSCULAR 29.1 PG 25-34 HEMOGLOBIN (test code = 59965-1) MEAN CORPUSCULAR See_Comment [Automated message] HEMOGLOBIN CONC (test The sy stem which code = 23178-3) generated th is result transmitted ref erence range: 31.0 - 3 6.0 G/DL. The refer ence range was not u sed to interpret this result as normal/abnor mal. RED CELL DISTRIBUTION 16.2 % 11.5-15 H WIDTH (test code = 92949-2) NEUTROPHILS % (test 48 % 40-75 SEGMENT ED code = 15469-6) NEUTROPHILS, MANUAL DIFFERENTIAL. BANDS % (test code = 8 % 0-8 25213-4) LYMPHOCYTES % (test 30 % 20-45 code = 75522-9) MONOCYTES % (test code 7 % 4-12 = 37620-7) EOSINOPHILS % (test 1 % 0-7 code = 62768-5) BASOPHILS % (test code 4 % 0-2 H = 79058-5) MYELOCYTES % (test code 2 % See_Comment H [Au tomated message] = 35305-3) The system [facility] generated this result transmitted ref erence range: 0.0. The reference range was not used to int erpret this result as normal/abnormal . PLATELET COUNT (test See_Comment [Autom ated message] code = 33884-3) The system [employer] generated this result transmitted ref erence range: 130 - 40 0 K/UL. The reference r anil was not used to interpret this result as normal/abnor mal. COMMENTS (test code = (NOTE) FEW R EACTIVE 38725-8) LYMPHOCYTES SLI GHT ANISOCYTOSIS SL IGHT POLYCHROMASIA F EW STOMATOCYTES PL ATELETS APPEAR ADEQUATE PLATELETS APPEA R NORMAL TESTING PERFORMED AT [facility], [place] [facility] [address] [place], [place] [address] CLIA NO. [id number] Unless Otherwise Indic ated, All Testing Per formed At: [facility], [address] [place] [address] Laborator y Director: Robbie Wagner M.D. CLIA Number [id number] Cap Accreditation [place] o. [id number] Lab Interpretation Abnormal (test code = 04817-0) [facility],TUNNEL CATH,CENTRAL INST [id number] 20:29:00 IMPRESSION: Insertion of right-sided power-injectable single-lumen [...] permanent image was stored.Port placed: BardCatheter size (Belgian): 6Catheter flush: Heparin (100 units/mL) ClosureThe access [...] details: NoneSpecimens removed: NoneEstimated blood loss (mL): Lessthan 10Standardized report: SIR_Port_v3 AttestationSigner name: Madalyn Hatfield attest that I was present for the entire procedure. I reviewed the stored images and agree with the report as written. Signed: Madalyn Nicole MDReport Verified Date/Time: 11/01/2019 15:29:20 Reading Location: [place] [id number] Angio Body Reading Room L REPORT PROCEDURE: Venous port placement Procedural PersonnelAttending physician(s): Licha Rojas physician(s): Katy Rubio physician(s): NonePrimary Contract Graphic Designer(s): Neema Samano MD Pre- procedure diagnosis: Bladder cancerPost-procedure diagnosis: SameIndication: Administration of chemotherapyAdditional clinical history: None Complications: No immediate complications. Luiz, Rad Results In - 11/01/2019 3:31 PM CDTFINAL REPORT PROCEDURE: Venous port placement Procedural PersonnelAttending physician(s): Licha Rojas physician(s): Katy Rubio physician(s): NonePrimary Contract Graphic Designer(s): Neema Samano MD Pre-procedure diagnosis: Bladder cancerPost-procedure diagnosis: SameIndication: Administration of chemotherapyAdditional clinical history: None Complications: No immediate complications. IMPRESSIONIMPRESSION: Insertion of right-sided shira r-injectable single-lumen tunneled chest port, with catheter tip in the expected location of the cavoatrial junction. Plan: The port may be used immediately. PROCEDURE SUMMARY:- Venous access with ultrasound guidance- Tunneled port insertion under fluoroscopic guidance- Additional procedure(s): None Pre-procedureConsent: Informed consentfor the procedure including risks, benefits and alternatives was obtained and time-out was performedprior to the procedure.Preparation (MIPS): The site was prepared and draped using all elements of maximal sterile barrier technique including sterile gloves, sterile gown, cap, mask, large sterile sheet , sterile ultrasound probe cover, hand hygiene and [...] accessed: Internal jugular veinAccess technique: Micropuncture set with21 gauge needle Port placementAn incision was made at the upper chest, a pocket was created, and thecatheter was tunneled subcutaneously to the venous access site and trimmed to appropriate length. The port was inserted into the pocket and the catheter was advanced via a peel-away sheath into the vein under fluoroscopic guidance. The port was not sutured into the pocket. Catheter tip location was fluoroscopically verified and a permanent image was stored.Port placed: BardCatheter size (Belgian): 6Catheter flush: Heparin (100 units/mL) ClosureThe access [...] agree with the report as written. Signed: Nicole, Kaiming MDReport Verified Date/Time: 11/01/2019 15:29:20 Reading Location: [facility] B1 P048 Angio Body Reading Room [facility], TUNNEL CATH CENTRAL INS W/PORT [id number] 15:29:00Reason for Exam:->malignant neoplasm of overlapping sites of bladder FINAL REPORT PROCEDURE: Venous port placement Procedural PersonnelAttending physician(s): Licha Rojas physician(s): Katy Rubio physician(s): NonePrimary Contract Graphic Designer(s): Neema Samano MD Pre-procedure diagnosis: Bladder cancerPost-procedure [...] of the patient\\X2019\\s level of consciousness and p hysiologic statusTotal intra-service sedation time (minutes): 30 AccessLocal anesthesia was administered. The vessel was sonographically evaluated and determined to be patent. Real time ultrasound was used to visualize needle entry into the vessel and a permanent image was stored.Vein accessed: Internal jugular veinAccess technique: Micropuncture set with 21 gauge needle Port placementAn incision wasmade at the upper chest, a pocket was [...] permanent image was stored.Port placed: BardCatheter size (Belgian): 6Catheter flush: Heparin (100 units/mL) ClosureThe access [...] procedure: NoneEquipment details: NoneSpecimens removed: NoneEstimated blood lo ss (mL): Less than 10Standardized report: SIR_Port_v3 AttestationSigner name: Madalyn Hatfield attest that I was present for the entire procedure. I reviewed the stored images and agree with the report as written. Signed: Madalyn Nicole MDReport Verified Date/Time: 11/01/2019 15:29:20 Reading Location: [place] [address] Angio Body Reading Room APTT 2019-11-01 15:22:00 Test Item Value Reference Range Interpretation Comments PARTIAL THROMBOPLASTIN See_Comment [Aut omated message] TIME (test code = 3173-2) Th e system which generated this result transmitted ref erence range: 22.5 - 3 6.0 seconds. The re ference range was not u sed to interpret this result as normal/abnor mal. [id number] 15:21:00 Test Item Value Reference Range Interpretation Comments PROTIME (test See_Comment [Automated code = 93683-1) message] The system which generated this result transmit tom reference range : 11.9 - 14.2 seconds. The reference range was not used to interpret this result as normal/abnormal . INR (test code See_Comment [Automated = 01545-8) message] The system which generated this result [...] 2.5-3.5 for patients wiht mechanical heart valves. [facility] HospitalAPTT2020-04-[facility] 10:22:00 Test Item Value Reference Range Interpretation Comments PARTIAL THROMBOPLASTIN TIME 29.5 seconds 22.5-36.0 (BEAKER) (test code = 760) PROTHROMBIN TIME/[id number] 10:21:00 Test Item Value Reference Range Interpretation [...] is 2.5-3.5 for patients wiht mechanical heart valves.CBC W/PLT COUNT & AUTO [id number] 09:53:00 Test Item Value Reference Range Interpretation [...] (test code = 2801) CT CHEST W [id number] 18:26:00Impression:No evidence of metastatic disease in the chest. Signed: Davide Delatorre MDReport VerifiedDate/Time: 10/27/2019 13:26:23 Reading Location: [facility] B1 C013X Ortho Consult Reading Room L REPORT CT Chest with contrast History:Malignant neoplasm of bladder Comparison:none Technique: serial axial imaging was performed following up to 100cc of non ionic iodinated intravenous contrast as per departmental prot ocol. Multiplanar images are reconstructed and reviewed when [...] partially imaged abdomen. No aggressive osseous lesion. Luiz, Rad Results In - 10/27/2019 1:[address] Chest with contrast History:Malignant neoplasm of bladder Comparison:none Technique: serial axial imaging was performed following upto 100cc of non ionic iodinated intravenous contrast [...] abdomen. No aggressive osseous lesion. IMPRESSIONImpression:No evidence ofmetastatic disease in the chest. Signed: Davide Delatorre MDReport Verified Date/Time: 10/27/2019 13:26:23 Reading Location: [facility] B1 C013X Ortho Consult Reading Room [facility], WITH IV [id number] 13:26:00FINAL REPORT CT Chest with contrast History:Malignant neoplasm of bladder Comparison:none Technique: serial axial imaging was performed following up to 100cc of non ionic iodinated intravenous contrast as per departmental protocol. Multiplanar images are reconstructed and reviewedwhen indicated. This CT examination is performed using [...] MDReport Verified Date/Time: 10/27/2019 13:26:23 Reading Location: [address] Consult Reading Room ICAL PATHOLOGY [id number] 19:52:00 Test Item Value Reference Range Interpretation Comments CASE REPORT (test code Surgical Pathology = 44691) Report Case: [id number] Authorizing Provider: Vita Jaimes MD Collected: 10/14/2019 09:26 AM Ordering Location: [facility] PERIOPERATIVE Received: 10/14/2019 11:24 AM [...] DIAGNOSIS (test code = A. 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 No surface CIS is seen on any of the slides. It would be important in this case to consider the possibility of metastatic breast carcinoma which can mimic plasmacytoid variant of urothelial cancer, especially since there is no associated urothelial carcinoma in situ in this case. CPT (test code = 06010 X 7, 92310 78626) CLINICAL HISTORY (test Preop diagnosis: code = [...] MICROSCOPIC Performed. DESCRIPTION (test code = 819) [facility] HospitalTISSUE [id number] 14:52:00Surgical Pathology Report Case: [id number] Authorizing Provider: Vita Jaimes MD Collected: 10/14/2019 09:26 AM Ordering Location: [facility] PERIOPERATIVE Received: 10/14/2019 11:24 AM SERVICES Pathologist: Reinaldo Matta MD Specimens: A) - Bladder Biopsy, Right Wall, right posteriorlateral wall blue light positive B) - Bladder Biopsy, Right Wall, right lateral wall C) - Bladder Biopsy, Right Wall, right anterior wall, blue light positive D) - Bladder Biopsy, dome, blue light positive E) - Bladder Biopsy, posterior midline, blue light negative F) - Bladder Biopsy, Left Wall, leftlateral wall, blue light negative G) - Bladder [...] BIOPSY: - NO PATHOLOGIC DIAGNOSIS - MUSCULARIS MA OPRIA PRESENTG. URINARY BLADDER, TRIGONE, BIOPSY: - MILD CHRONIC INFLAMMATION, NEGATIVE FOR DYSPLASIA OR CARCINOMA] - MUSCULARIS PROPRIA ABSENTH. URINARY BLADDER, RIGHT POSTERIOR WALL, PREVIOUS RESECTION SITE, TURBT: - UROTHELIAL CARCINOMA, HIGH GRADE (WHO GRADE 3), INVASIVE INTO MUSCULARIS PROPRIA - NEGATIVE FOR LYMPH VASCULAR INVASION - PRIOR RESECTION SITE CHANGE SEEN Signing Pathologist Direct Phone Line: [phone] signed by Reinaldo Matta MD on 10/17/2019 at 2:52 PMThetumor is 90% of the plasmacytoid type. No surface CIS is seen on any of the slides. It would be important in this case to consider the possibility of metastatic breast carcinoma which can mimic plasmacytoid variant of urothelial cancer, especially since there is no associated urothelial carcinoma in situ in this case. 66713 X 7, 06642Wskbr diagnosis: Malignant neoplasm of overlapping sites of [...] tissue fragments measuring up to 0.2 cm ingreatest dimension which are filtered and submitted in [...] with the patient's name, accession number and "leftlateral wall bladder biopsy" is a 0.2 x 0.2 x 0.1 cm buck-pink tissue fragment which is filtered and s ubmitted in toto in F1. G. Received in [...] a 2.4 x 1.1 x 0.3 cm aggregateof buck-pink rubbery tissue which is entirely submitted in H2. PA/pl Performed.RAD, CHEST, 2 [id number] 09:24:00Reason for Exam:->C67.8FINAL REPORT CHEST RADIOGRAPH - 2 VIEWS INDICATION: C67.8, malignant neoplasm of bladder at overlapping sites. COMPARISON: None FINDINGS:LINES: None LUNGS: The lungs are well inflated. Nodular opacities project over the right lower lung, which appear high density. No evidence of pn eumonia or pulmonary edema. PLEURA: No evidence of [...] osteopenia. Mild loss of vertebral body height inthe lower thoracic spine, age indeterminate, suggest clinical correlation. Signed: Bina Drake MDReport Verified Date/Time: 10/13/2019 09:24:28 Reading Location: [facility] Reading Room [address] [place] [address] CT, [id number] 16:53:00CT UROGRAMFINAL REPORT CT of the abdomen and pelvis, with and without contrast Clinical Hi story: C67.8 Technique: CT of the abdomen and pelvis is performed before and after intravenous contrast administration. This exam was performed according to our departmental dose optimization program which includes automated exposure control, adjustment of the mA and/or kV according to patient's size and/or use of iterative reconstructive technique. Comparison Film: None Punctate nonobstructive stonein right kidney.Discussion: Visualized lower thorax is unremarkable. [...] and adnexa are unremarkable. Osseous structures demonstrate degenerativechanges. No suspicious bony lesion is identified. No adenopathy, or ascites. Impression: Mild right-sided bladder wall thickening. No adenopathy or distant metastasis is identified. Signed: Beto Bianchi MDReport Verified Date/Time: 10/12/2019 16:53:35 Reading Location: [facility] C013X [facility] Consult Reading Room POCT URINALYSIS [id number] 00:00:00 Test Item Value Reference Range Interpretation Comments COLOR UA (test code = 5778-6) Yellow YELLOW/STRAW CLARITY UA (test code = 79083-8) Clear CLEAR GLUCOSE UA (test code = 5792-7) Negative NEGATIVE BILIRUBIN UA (test code = 5770-3) Negative NEGATIVE KETONES UA (test code = 36684-5) Negative NEGATIVE SPECIFIC GRAVITY UA (test code [...] NEGATIVE REDUCING SUBSTANCES URINE (test code = 04851-7) [facility]
[2022-03-26 18:29] LABS: Absolute Lymphocytes (CBC) 2.7 K/uL (0.7-4.9); Hematocrit 33.1 % (36.0-45.0); Lymphocytes % 36.9 % (15.3-44.8); MCV 87.6 fL (80-100); MPV 8.7 fL (7.6-11.3); RBC Red Blood Cell Count 3.78 M/uL (3.86-4.86)
--- NOTE | 2022-03-26 18:43 | RAD REPORT ---
EXAM DESCRIPTION: RAD - Chest Single View - 03/26/2022 6:36 pm CLINICAL HISTORY: sycope/ fall Chest pain. COMPARISON: Chest Pa And Lat (2 Views) dated 07/09/2020; Chest Single View dated 03/26/2020; Chest Pa And Lat (2 Views) dated 12/24/2018; Chest Single View dated 09/26/2016 FINDINGS: Portable technique limits examination quality. The lungs are grossly clear. The heart is upper limit normal in size. No displaced fractures. IMPRESSION: No acute intrathoracic process suspected.
--- NOTE | 2022-03-26 19:07 | RAD REPORT ---
EXAM DESCRIPTION: CT - CTHCSPWOC - 03/26/2022 7:02 pm CLINICAL HISTORY: Trauma, head and neck injury. found unresponsive COMPARISON: <Comparisons> TECHNIQUE: Axial 5 mm thick images of the head were obtained. Axial 2 mm thick images of the cervical spine were obtained with sagittal and coronal reconstruction images generated and reviewed. All CT scans are performed using dose optimization technique as appropriate and may include automated exposure control or mA/KV adjustment according to patient size. FINDINGS: CT HEAD WITHOUT CONTRAST: No acute hemorrhage, hydrocephalus or extra-axial collection is identified.Mild generalized brain atr ophy is present with mild periventricular and deep white matter chronic microvascular ischemic change s.No areas of brain edema or midline shift. The paranasal sinuses and mastoids are clear.The calvarium is intact. CT CERVICAL SPINE WITHOUT CONTRAST: No fracture or subluxation.Moderate cervical spondylosis.No prevertebral soft tissues swelling is lorena ntified. IMPRESSION: No acute intracranial or cervical spine findings.
[2022-03-26 19:12] LABS: Troponin High Sensitivity 116.3 pg/mL (<58.9)
--- NOTE | 2022-03-26 19:26 | EDPHYS ---
Physician Documentation [facility] Name: Marily Gonsales Age: 76 yrs Sex: Female : 1945 Arrival Date: 03/26/2022 Time: 18:08 Bed 24 Private MD: ED Physician Guevara Delgado HPI: 03/26 18:19 This 76 yrs old Female presents to ER via EMS with complaints of syncope, fall. ms3 18:19 76-year-old female past medical history of congestive heart failure, COPD, ms3 hypertension, hypothyroidism, bladder cancer presents via [facility] status post syncopal episode. EMS was toned out for unresponsive patient. Patient's states patient may have fallen out of a chair Patient denies pain. Patient denies nausea, vomiting, chest pain, fevers, chills, shortness of breath. Patient denies alleviating or inciting factors.. Historical: - Allergies: 18:15 Sulfa (Sulfonamide Antibiotics); eh3 - PMHx: 18:15 Bladder cancer; CHF; COPD; Hypertension; Hypothyroidism; eh3 - Immunization history:: Adult Immunizations up to date. - Social history:: Smoking status: unknown. ROS: 18:19 Constitutional: Negative for fever, and chills. Neck: Negative for injury, pain, and ms3 swelling, Cardiovascular: Negative for chest pain, and palpitations. Respiratory: Negative for shortness of breath, cough, wheezing, and pleuritic chest pain, Abdomen/GI: Negative for abdominal pain, nausea, vomiting, diarrhea, and constipation, MS/Extremity: Negative for injury and deformity, Skin: Negative for injury, rash, and discoloration. 18:19 All other systems are negative. Exam: 18:00 ECG was reviewed by the Attending Physician. ms3 18:19 Constitutional: This is a well developed, well nourished patient who is awake, alert, ms3 and in no acute distress. Head/Face: Normocephalic, atraumatic. Neck: Trachea midline, no cervical lymphadenopathy. Supple, full range of motion without nuchal rigidity, or vertebral point tenderness. No Meningismus. Chest/axilla: Normal chest wall appearance and motion. Nontender with no deformity. Cardiovascular: Regular rate and rhythm with a normal S1 and S2. No gallops, murmurs, or rubs. Normal PMI, no JVD. No pulse deficits. Respiratory: Lungs have equal breath sounds bilaterally, clear to auscultation and percussion. No rales, rhonchi or wheezes noted. No increased work of breathing, no retractions or nasal flaring. Abdomen/GI: Soft, non-tender, with normal bowel sounds. No distension or tympany. No guarding or rebound. No evidence of tenderness throughout. Skin: Warm, dry with normal turgor. Normal color with no rashes, no lesions, and no evidence of cellulitis. MS/ Extremity: Pulses equal, no cyanosis. Neurovascular intact. Full, normal range of motion. Psych: Awake, alert, with orientation to person, place and time. Behavior, mood, and affect are within normal limits. Vital Signs: 18:09 BP 128 / 76; Pulse 75; Resp 18; Temp 97.6(O); Pulse Ox 97% on R/A; Pain 0/10; eh3 18:30 BP 132 / 87; Pulse 64; Resp 13; Pulse Ox 98% on R/A; Pain 0/10; eh3 19:30 BP 132 / 76; Pulse 57; Resp 11; Pulse Ox 98% on R/A; Pain 0/10; eh3 20:30 BP 138 / 74; Pulse 56; Resp 13; Pulse Ox 96% on R/A; Pain 0/10; eh3 21:30 BP 136 / 82; Pulse 56; Resp 13; Pulse Ox 99% on R/A; Pain 0/10; eh3 MDM: 18:08 Patient medically screened. ms3 19:19 Transition of care: After a detail discussion of the patient's case, care is ms3 transferred to Rosalio Glaser MD. 19:38 Differential Diagnosis: cardiac arrhythmia, seizure, transient ischemic attack, ms3 vasovagal episode. Data reviewed: vital signs, nurses notes, lab test result(s), EKG, radiologic studies, and as a result, I will admit patient. Data interpreted: electronic device monitor: rate is 72 beats/min, rhythm is normal sinus rhythm, regular, with no ectopy, Interpretation: normal rate, normal rhythm. Counseling: I had a detailed discussion with the patient and/or guardian regarding: the historical points, exam findings, and any diagnostic results supporting the discharge/admit diagnosis, lab results, radiology results, the need for further work-up and treatment in the hospital. ED course: Discussed case with Dr Kuo and he accepts patient as observation. Would like potassium replaced and a consult for Cardiology placed in [facility]. 03/26 18:16 Order name: Basic Metabolic Panel; Complete Time: 19:19 ms3 03/26 18:16 Order name: CBC with Diff; Complete Time: 19:19 ms3 03/26 18:16 Order name: Troponin HS; Complete Time: 19:19 ms3 03/26 18:16 Order name: CK; Complete Time: 19:19 ms3 03/26 19:32 Order name: Basic Metabolic Panel EDMS 03/26 19:32 Order name: Basic Metabolic Panel EDMS 03/26 18:16 Order name: XRAY Chest (1 view); Complete Time: 19:19 ms3 03/26 18:16 Order name: CT Head Brain wo Cont ms3 03/26 18:19 Order name: CT Head C Spine ms3 03/26 19:32 Order name: CBC with Automated Diff EDMS 03/26 19:32 Order name: CBC with Automated Diff EDMS 03/26 20:59 Order name: Troponin High Sensitivity EDMS 03/26 22:58 Order name: SARS RAPID eh3 03/27 00:04 Order name: SARS-COV-2 Antigen Rapid EDMS 03/26 18:16 Order name: EKG; Complete Time: 18:18 ms3 03/26 18:16 Order name: Cardiac monitoring; Complete Time: 18:18 ms3 03/26 18:16 Order name: EKG - Nurse/Tech; Complete Time: 18:18 ms3 03/26 18:16 Order name: IV Saline Lock; Complete Time: 18:18 ms3 03/26 18:16 Order name: Labs collected and sent; Complete Time: 18:20 ms3 03/26 18:16 Order name: O2 Per Protocol; Complete Time: 18:18 ms3 03/26 18:16 Order name: O2 Sat Monitoring; Complete Time: 18:18 ms3 03/26 18:24 Order name: Head C Spine Mpr Wo Con; Complete Time: 19:19 EDMS 03/26 19:32 Order name: CONS Physician Consult EDMS 03/26 19:32 Order name: Regular EDMS 03/26 19:32 Order name: EKG Electrocardiogram EDMS 03/26 19:32 Order name: EKG Electrocardiogram EDDE 03/26 19:32 Order name: EKG Electrocardiogram EDDE 03/26 19:32 Order name: EKG Electrocardiogram EDDE EC:00 Rate is 66 beats/min. Rhythm is regular. QRS [place] is Normal. Clinical impression: NSR ms3 w/ Non-specific ST/T Changes. Interpreted by me. Reviewed by me. Administered Medications: No medications were administered Disposition Summary: 03/26/22 19:26 Hospitalization Ordered Provider: Lemuel Kuo ms3 Condition: Stable ms3 Problem: new ms3 Symptoms: are unchanged ms3 Bed/Room Type: Standard ms3 Hospitalization Status: Observation(03/26/22 19:26) ms3 Location: Telemetry/MedSurg (observation)(03/27/22 00:06) cg Room Assignment: [facility](03/27/22 00:06) Diagnosis - Syncope ms3 - Elevated Troponin ms3 Forms: - Medication Reconciliation Form ms3 - SBAR form ms3 Signatures: Dispatcher [employer] EDMS Sailaja Ashraf, RN RN Guevara Delgado DO DO ms3 Gabi Begum, RN RN eh3 Corrections: (The following items were deleted from the chart) 19:26 19:26 Inpatient Admission ms3 ms3 21:25 19:26 Telemetry/MedSurg (observation) ms3 cg 21:25 19:26 ms3 cg 03/27 00:06 03/26 21:[address] [facility] ER HOLD cg cg 03/27 00:06 03/26 21:25 ERHOLD- cg cg
--- NOTE | 2022-03-26 19:26 | ER ---
Nurse's Notes [facility] Name: Marily Gonsales Age: 76 yrs Sex: Female : 1945 Arrival Date: 03/26/2022 Time: 18:08 Bed 24 Private MD: Diagnosis: Syncope;Elevated Troponin Presentation: 03/26 18:09 Chief complaint: EMS states: found pt on the floor unresponsive. EMS states pt eh3 was prone and unresponsive to painful stimuli. Coronavirus screen: Vaccine status: Patient reports receiving the 2nd dose of the covid vaccine. Ebola Screen: No symptoms or risks identified at this time. Initial Sepsis Screen: Does the patient meet any 2 criteria?. Initial Sepsis Screen: Does the patient have a suspected source of infection? No. Patient's initial sepsis screen is negative. Risk Assessment: Do you want to hurt yourself or someone else? Patient reports no desire to harm self or others. Onset of symptoms is unknown. 18:09 Method Of Arrival: EMS: [facility] 18:09 Acuity: CORI 2 eh3 Triage Assessment: 18:15 General: Appears in no apparent distress. comfortable, Behavior is calm, cooperative, eh3 appropriate for age, drowsy. Pain: Denies pain. Neuro: Level of Consciousness is awake, alert, obeys commands, Oriented to person, time. Cardiovascular: Capillary refill < 3 seconds Patient's skin is warm and dry. Respiratory: Airway is patent Respiratory effort is even, unlabored. GI: Abdomen is round non-distended. : No signs and/or symptoms were reported regarding the genitourinary system. Derm: No signs and/or symptoms reported regarding the dermatologic system. Musculoskeletal: Circulation, motion, and sensation intact. Historical: - Allergies: 18:15 Sulfa (Sulfonamide Antibiotics); eh3 - PMHx: 18:15 Bladder cancer; CHF; COPD; Hypertension; Hypothyroidism; eh3 - Immunization history:: Adult Immunizations up to date. - Social history:: Smoking status: unknown. Screenin:20 Abuse screen: Denies threats or abuse. Denies injuries from another. Nutritional ld1 screening: No deficits noted. Tuberculosis screening: No symptoms or risk factors identified. Fall Risk None identified. Assessment: 18:18 Reassessment: No changes from previously documented assessment. See triage assessment. eh3 19:58 Reassessment: Contact daughter Annie: [phone]. eh3 Vital Signs: 18:09 BP 128 / 76; Pulse 75; Resp 18; Temp 97.6(O); Pulse Ox 97% on R/A; Pain 0/10; eh3 18:30 BP 132 / 87; Pulse 64; Resp 13; Pulse Ox 98% on R/A; Pain 0/10; eh3 19:30 BP 132 / 76; Pulse 57; Resp 11; Pulse Ox 98% on R/A; Pain 0/10; eh3 20:30 BP 138 / 74; Pulse 56; Resp 13; Pulse Ox 96% on R/A; Pain 0/10; eh3 21:30 BP 136 / 82; Pulse 56; Resp 13; Pulse Ox 99% on R/A; Pain 0/10; eh3 ED Course: 18:08 Patient arrived in ED. ms3 18:08 Guevara Delgado DO is Attending Physician. ms3 18:09 Gabi Begum, RN is Primary Nurse. eh3 18:15 Triage completed. eh3 18:15 Arm band placed on right wrist. eh3 18:18 Patient has correct armband on for positive identification. Placed in gown. Bed in low eh3 position. Call light in reach. Side rails up X2. Adult w/ patient. 18:18 Maintain EMS IV. Dressing intact. Good blood return noted. Site clean \T\ dry. Gauge \T\ eh 3 site: 20g to RAC. 18:20 No provider procedures requiring assistance completed. ld1 18:38 XRAY Chest (1 view) In Process Unspecified. EDMS 19:03 Head C Spine Mpr Wo Con In Process Unspecified. EDMS 19:25 Lemuel Kuo MD is Hospitalizing Provider. ms3 21:30 Assisted with draining suprapubic catheter, obtained 1000mL of clear yellow urine. eh3 23:41 Patient admitted, IV remains in place. eh3 23:46 SARS RAPID Sent. eh3 Administered Medications: No medications were administered Medication: 23:41 VIS not applicable for this client. eh3 Outcome: 19:26 Decision to Hospitalize by Provider. ms3 23:41 Admitted to ER Hold. Please see [facility] for further documentation. eh3 23:41 Condition: stable 23:41 Instructed on the need for admit. 03/27 01:58 Patient left the ED. vc1 Signatures: Dispatcher [employer] EDMS Guevara Delgado DO DO ms3 Ernestine Lord, RN RN ld1 Mandi Doherty RN RN vc1 Gabi Begum RN RN eh3
[2022-03-26] MEDS ORDERED: ONDANSETRON 4 MG/2 ML VIAL IV PRN (19:28)
[2022-03-26] MEDS ORDERED: ACETAMINOPHEN 500 MG TAB PO PRN (19:28)
[2022-03-26] MEDS: GABAPENTIN 300 MG CAP PO SCH (21:00)
[2022-03-26] MEDS: ENOXAPARIN 60 MG/0.6 ML SQ SCH (21:00)
[2022-03-26] MEDS: FAMOTIDINE 20 MG TAB PO SCH (21:00)
[2022-03-26] MEDS: ATORVASTATIN 80 MG TAB PO SCH (21:00)
[2022-03-26] MEDS ORDERED: ENOXAPARIN 60 MG/0.6 ML SQ ONE (21:35)
[2022-03-27 00:01] VITALS: BMI 29.8
[2022-03-27 00:04] LABS: SARS-CoV-2 Antigen Rapid Res Negative (Negative)
[2022-03-27] MEDS ORDERED: GABAPENTIN 300 MG CAP ONE (00:15)
[2022-03-27] MEDS ORDERED: ATORVASTATIN 20 MG TAB ONE (00:15)
[2022-03-27 03:46] LABS: Absolute Lymphocytes (CBC) 1.9 K/uL (0.7-4.9); Hematocrit 36.1 % (36.0-45.0); Lymphocytes % 25.2 % (15.3-44.8); MCV 86.9 fL (80-100); MPV 8.9 fL (7.6-11.3); RBC Red Blood Cell Count 4.15 M/uL (3.86-4.86)
[2022-03-27 04:28] LABS: Bilirubin Total 0.5 mg/dL (0.2-1.0); Potassium 3.1 mmol/L (3.5-5.1); Protein, Total 6.4 g/dL (6.4-8.2)
[2022-03-27 04:29] LABS: Troponin High Sensitivity 549.7 pg/mL (<58.9)
[2022-03-27] MEDS ORDERED: POTASSIUM 25 MEQ EFFERV TAB PO ONE (04:48)
[2022-03-27] MEDS: LEVOTHYROXINE SOD 0.112 MG TAB PO SCH (05:42)
--- NOTE | 2022-03-27 07:13 | HP ---
Date of Admission: 03/26/2022 Chief Complaint: Fall and syncope. History Of Present Illness: This is a 76-year-old female patient who was brought into emergency room by EMS after she fell out of chair and had a syncopal episode at home. After she arrived into emerg ency room, she was back to her normal self. She denies any chest pain, shortness of breath. No naus ea, vomiting, or diarrhea. Her cardiac enzymes were abnormal and she was admitted to the hospital fo r further evaluation and management of this problem. Allergies: TO SULFA, CAUSING LIP SWELLING. Medications: Atorvastatin 80 mg daily, amlodipine 2.5 mg daily, aspirin 325 mg daily, escitalopram 2 0 mg daily, famotidine 40 mg daily, gabapentin 300 mg, levothyroxine 112 mcg daily, spironolactone 25 mg daily, and she also takes lorazepam 1 mg, and trospium 20 mg, vitamin B complex 1 tablet daily. Review of Systems: Cardiovascular: As mentioned above. TIER OVER: As mentioned above. All other systems reviewed and negative. Past Medical History: Significant for stroke in May 2021, goiter, hypothyroidism, hypertension, hyperlipidemia, gastroesophageal reflux disease, constipation, bladder cancer for which she received chemotherapy in October 2019, and removal of bladder with neobladder on January 30, 2020 and the patient does self catheterization of her bladder 5 to 6 times a day, osteoarthritis at multiple sites, anxiet y, depression, insomnia, osteopenia. Past Surgical History: Cataract surgery, retinal surgery in the right eye, , D and C, foot surgery. Family History: Significant for father , had diabetes and dementia. Mother , had hypertensi on and breast cancer. Social History: Negative for smoking, alcohol use. Physical Examination: Vital Signs: When she first came into emergency room, blood pressure 128/76, pulse 75, respiratory r ate 18, temperature 97.6, oxygen saturation 97%. General: Awake, alert, oriented, not in distress. HEENT: Head atraumatic, normocephalic. Conjunctivae nonerythematous. Sclerae white. Mouth, no thr ush or edema noted. Ears/Nose, no mass, lesion, discharge noted. Neck: Supple. No JVD, lymph nodes, bruit, thyromegaly noted. Lungs: Bilateral good equal air entry. Clear to auscultation. No rhonchi. No rales. Heart: Normal heart sounds, no murmur or gallop. Abdomen: Soft, bowel sounds normal. No guarding, rigidity, tenderness, mass, hepatosplenomegaly, dis tention, or bruit noted. Extremities: No leg edema. No calf tenderness. Skin: No rash, ulcer, cellulitis. Lymphatics: No lymph node enlargement in neck, supraclavicular, infraclavicular region. Neuro: No focal neurological deficit. Chest: Unremarkable. External Genitalia: Deferred. Rectal: Deferred. Laboratory Data: Sodium 145, potassium 3, chloride 111, bicarb 22, BUN 19, creatinine 0.96, glucose 170. White count 7.3, hemoglobin 11, platelets 196. First troponin 116, second troponin 195, and th ird troponin 549. Chest x-ray, no acute cardiopulmonary changes. CAT scan of the head and cervical spine, no acute intracranial or cervical spine findings. This morning white count 7.4, hemoglobin 12 .3, platelets 170. Liver function tests unremarkable. Triglycerides 50, total cholesterol 103, LDL 44, HDL 49, potassium 3.1, sodium 146, chloride 116, bicarb 24, BUN 16, creatinine 0.88, glucose 147. Impression: 1.Non-ST elevation myocardial infarction. 2.Syncope. 3.Hypokalemia. 4.Hypertension. 5.Hypothyroidism. 6.Hyperlipidemia. 7.Gastroesophageal reflux disease. 8.Bladder cancer. 9.Osteoarthritis, multiple sites. 10.Anxiety. 11.Depression. 12.Insomnia. Plan: Admit the patient to hospital for further evaluation and management of this problem. The [facility] ent is appropriate for inpatient and is expected to spend 2 midnights in hospital. Continue home med ications per order. We will consult Cardiology. Start patient on aspirin, high dose statin per orde r, and also start the patient on Lovenox. Echo with Doppler will be done tomorrow. Further cardiac workup will be decided by furnace mechanic. Plan of treatment discussed with the patient. MARISA/MODL Voice ID: [id number]
[2022-03-27] MEDS: ESCITALOPRAM 20 MG TAB PO SCH (08:50)
[2022-03-27] MEDS: AMLODIPINE 2.5 MG TAB PO SCH (08:50)
[2022-03-27] MEDS: FAMOTIDINE 20 MG TAB PO SCH ×2 (08:51→20:13)
[2022-03-27] MEDS: SPIRONOLACTONE 25 MG TABLET PO SCH (08:51)
[2022-03-27] MEDS: GABAPENTIN 300 MG CAP PO SCH ×2 (08:51→20:13)
[2022-03-27] MEDS: ASPIRIN EC 81 MG TAB PO SCH (08:51)
[2022-03-27] MEDS: ENOXAPARIN 60 MG/0.6 ML SQ SCH ×2 (08:52→20:14)
[2022-03-27] MEDS ORDERED: ASPIRIN EC 81 MG TAB PO SCH (09:00)
--- NOTE | 2022-03-27 10:50 | EKG ---
Test Date: 2022-03-27 Test Time: 10:32:18 Manufacturing Storeperson: [place] MEASUREMENT RESULTS: Intervals: Rate: 50 AL: 152 QRSD: 96 QT: 468 QTc: 426 [place]: P: 57 AL: 152 QRS: 18 T: 5 INTERPRETIVE STATEMENTS: Sinus bradycardia with sinus arrhythmia Otherwise normal ECG Compared to ECG 03/26/2022 18:00:37 Sinus rhythm no longer present ST (T wave) deviation no longer present Possible ischemia no longer present Electronically Signed On 03-27-22 10:49:48 CDT by Honorio Aldridge
--- NOTE | 2022-03-27 10:52 | EKG ---
Test Date: 2022-03-26 Test Time: 18:00:37 Director Vaccine: [place] MEASUREMENT RESULTS: Intervals: Rate: 66 DE: 168 QRSD: 108 QT: 448 QTc: 469 [place]: P: 76 DE: 168 QRS: 65 T: 34 INTERPRETIVE STATEMENTS: Sinus rhythm with marked sinus arrhythmia ST & T wave abnormality, consider inferior ischemia Abnormal ECG Compared to ECG 01/02/2022 11:57:23 ST (T wave) deviation now present Possible ischemia now present Electronically Signed On 03-27-22 10:50:09 CDT by Honorio Aldridge
--- NOTE | 2022-03-27 11:51 | ECHO ---
HEIGHT: 5 ft 6 in WEIGHT: 185 lb 0 oz DATE OF STUDY: 03/27/[address]: Connor Kuo MD 2-DIMENSIONAL: YES M.MODE: YES DOPPLER: YES COLOR FLOW: YES TDS: NO PORTABLE: YES DEFINITY: NO BUBBLE STUDY: NO DIAGNOSIS: NSTEMI CARDIAC HISTORY: CATHERIZATION: NO SURGERY: NO PROSTHETIC VALVE: NO PACEMAKER: NO MEASUREMENTS (cm) DIASTOLIC (NORMALS) SYSTOLIC (NORMALS) IVSd 1.0 (0.6-1.2) LA Diam 2.7 (1.9-4.0) LVEF 64% LVIDd 4.5 (3.5-5.7) LVIDs 3.0 (2.0-3.5) %FS 34% LVPWd 1.0 (0.6-1.2) Ao Diam 2.6 (2.0-3.7) 2 DIMENSIONAL ASSESSMENT: RIGHT ATRIUM: NORMAL LEFT ATRIUM: NORMAL RIGHT VENTRICLE: NORMAL LEFT VENTRICLE: NORMAL TRICUSPID VALVE: NORMAL MITRAL VALVE: MITRAL ANNULAR CALCIFICATION PULMONIC VALVE: NORMAL AORTIC VALVE: NORMAL PERICARDIAL EFFUSION: NONE AORTIC ROOT: NORMAL LEFT VENTRICULAR WALL MOTION: NORMAL. DOPPLER/COLOR FLOW: MILD TRICUSPID REGURGITATION. COMMENTS: MILD TRICUSPID REGURGITATION. NORMAL LEFT VETRICULAR SIZE AND FUNCTION. NO WALL MOTION ABNORMALITY. MITRAL ANNULAR CALCIFICATION. TECHNOLOGIST: NAYLA NIETO
--- NOTE | 2022-03-27 13:04 | CON ---
Date of Consultation: 03/27/2022 Reason For Consultation: Syncope and elevated troponin. History Of Present Illness: Ms. Gonsales is 76, has a history of COPD, congestive heart failure, h ypertension, dyslipidemia, hypothyroidism, history of bladder cancer. As far as her bladder cancer, she is not getting any treatment at this point. She just recently had her port taken out. Comes in with an episode of sudden syncope without any symptoms of chest pain, nausea, vomiting, diaphoresis, PND, orthopnea, pedal edema, palpitation. Denied any fever or chills. Denied any pre or postictal s ymptoms. She has had an extensive cerebrovascular workup including CT of her head, MRI, and MRA, all of which are negative. Past Medical History: As stated above. Allergies: INCLUDE SULFA. Review of Systems: Negative. Social History: Negative. Family History: Noncontributory. Medications At Home: Include aspirin, Lipitor, Norvasc, Synthroid, prednisone, Aldactone, and potass ium. Physical Examination: General: She appeared to be rather feeble. Vital Signs: Otherwise vital signs are stable, sinus rhythm, afebrile. HEENT: Negative. Neck: Supple. No bruit, lymphadenopathy, JVD, or thyromegaly. Chest: Clear to auscultation and percussion. Cardiac: Revealed a regular rhythm and rate. No murmurs, gallops, or rubs. Abdomen: Benign. Extremities: Revealed no clubbing, cyanosis, or edema. Diagnostic Data: EKG is nonspecific. Troponin is 549. Potassium 3.1. MRI and MRA of the neck and brain were negative. CT of her head was negative. Echocardiogram last year was normal. Impression And Plan: Syncope, most likely orthostatic hypotension. I will discuss the case with Dr. Kuo. We may have to adjust her medication. I think she needs to have another echocardiogram today and an event monitor as an outpatient and I will make arrangements for that. I am not too concerned about the elevated troponin. I think it is nonspecific. Her potassium needs to be corrected. Her other problems including chronic obstructive pulmonary disease, hypertension, dyslipidemia, and hypot hyroidism are stable. She has had bladder cancer and she is not on the treatment anymore. She came in with diagnosis of congestive heart failure, may have been diastolic, but her echo was normal last year. We will see what this one shows now. LEONARDO/TUAN Voice ID: [id number] Report ID: [id number]
[2022-03-27] MEDS ORDERED: POTASSIUM CL 40 MEQ in NA CHLORIDE 0.9% 500 ML IV SCH (19:00)
[2022-03-27] MEDS: ATORVASTATIN 80 MG TAB PO SCH (20:13)
[2022-03-28] MEDS: LEVOTHYROXINE SOD 0.112 MG TAB PO SCH (05:44)
[2022-03-28 06:04] LABS: Magnesium 2.1 mg/dL (1.8-2.4); Potassium 3.9 mmol/L (3.5-5.1)
[2022-03-28] MEDS: ENOXAPARIN 60 MG/0.6 ML SQ SCH (08:26)
[2022-03-28] MEDS: SPIRONOLACTONE 25 MG TABLET PO SCH (08:30)
[2022-03-28] MEDS: AMLODIPINE 2.5 MG TAB PO SCH (08:30)
[2022-03-28] MEDS: FAMOTIDINE 20 MG TAB PO SCH (08:30)
[2022-03-28] MEDS: GABAPENTIN 300 MG CAP PO SCH (08:31)
[2022-03-28] MEDS: ASPIRIN EC 81 MG TAB PO SCH (08:31)
[2022-03-28] MEDS: ESCITALOPRAM 20 MG TAB PO SCH (08:31)
[2022-03-28] MEDS ORDERED: POTASSIUM 25 MEQ EFFERV TAB PO ONE (09:00)
[2022-03-28 09:24] VITALS: O2SAT 98
[2022-03-28 16:03] VITALS: BP 137/67; TEMP 98.3
--- NOTE | 2022-03-28 23:37 | PN ---
Date of Progress Note: 03/28/2022 Subjective: Seen at bedside, doing well. No dizziness. No chest pain or shortness of breath. No n ausea, vomiting, or diarrhea. All other systems reviewed are negative. Objective: Vital Signs: Her temperature is 97.4, pulse is 48, breathing at 18, blood pressure is 14 2/63, saturating 98% on room air. General: A pleasant elderly female, no apparent distress. Head and Neck: Pupils are equal and reactive to light. Intact eye movements. No JVD. No cervical lymphadenopathy. Neck: Supple. Thyroid is not enlarged. Lungs: Clear to auscultation bilaterally. No rhonchi, rales, or crackles. No accessory muscle use. Heart: Regular with no extra sounds. Abdomen: Soft, nontender. Bowel sounds positive. No organomegaly. No masses or hernia. No rigidi ty or rebound. Extremities: No clubbing or cyanosis. Intact pulses. Skin: No rash noted. Neurologic: Alert, awake. No acute focal deficits appreciated. Laboratory Data: Troponin peaked so far at 549. BUN is 19, creatinine 0.82. Assessment And Recommendation: 1.Recent syncopal episode, possibly due to orthostatic hypotension; however, heart rate is on the lo w side. This patient needs an outpatient event monitor to evaluate for further bradyarrhythmias, [facility] can be arranged for as an outpatient. 2.Elevated troponin. Troponin is still rising, but she has no chest pain. Outpatient evaluation wi th stress test, if it was not done recently, is recommended and on echocardiogram, she had a normal ejection fraction and no significant valvular abnormalities. SR/MODL Voice ID: [id number] Report ID: [id number]
--- NOTE | 2022-03-29 03:55 | DS ---
Date of Discharge: 03/28/2022 Disposition: Discharged to go home. Physical Examination: HEENT: Unremarkable. Lungs: Clear to auscultation. Heart: Sounds normal. Abdomen: Soft. Bowel sounds normal. No guarding, rigidity, tenderness, or distention. Extremities : No leg edema. Laboratory Data: Upon admission; white count 7.3, hemoglobin 11, platelets 196. Yesterday, white co unt 7.4, hemoglobin 12.3, platelets 117. Upon admission; sodium 145, potassium 3, chloride 111, bica rb 22, BUN 19, creatinine 0.96 glucose 170. Initial troponin 116, second troponin 195, third troponi n 549. Last chemistry today; sodium 144, potassium 3.9, chloride 117, bicarb 23, BUN 19, creatinine 0.82, glucose 84, magnesium 2.1. Echocardiogram shows normal ejection fraction of 64%, mild tricuspi d regurgitation. Normal left ventricular wall motion. Mitral annular calcification. Hospital Course: This is a 76-year-old female patient who was admitted to the hospital with fall and syncope. Please see dictated H and P for more information. The patient really do not know exactly what happened and who says he was sitting next to her, but he really does not know what happe bartolo. All we know that the patient was sitting in the chair in a recliner and she was found on the fl oor next to the chair after she had a fainting episode. The patient denies any chest pain or shortne ss of breath. After she was evaluated in the ER, she was admitted to the hospital. Cardiology consu ltation was requested from Dr. Aldridge. I did talk to Dr. Aldridge in details yesterday and he has reagan ggested that through outpatient, he will go ahead and do event monitor for her as well as he will loo k into his office record to see, when last time the patient had a stress test. Depending on that, he will take care of that on outpatient basis as well, but he does not have any other cardiac concerns and from his point of view, the patient can go home. Her low potassium was corrected. Today, when I saw her she had no other complaints. was with her at bedside. Final Diagnoses: 1.Non-ST elevation myocardial infarction. 2.Syncope. 3.Hypokalemia. 4.Hypertension. 5.Hypothyroidism. 6.Hyperlipidemia. 7.Gastroesophageal reflux disease. 8.Bladder cancer. 9.Osteoarthritis, multiple sites. 10.Anxiety. 11.Depression. 12.Insomnia. Discharge Medications: Continue all prior home medications. 1.Potassium chloride 20 mEq, take 1 tablet by mouth daily and this prescription will be sent to [facility] from my office. 2.Follow up at my office next week. 3.Follow up with Dr. Aldridge next week. MARISA/MODL Voice ID: [id number] Report ID: [id number]
== END 2022-03-28 16:00 | disposition home or self-care (01) | DRG 281 ==
LOC: ER 17:28 → ERHOLD 19:27 → OBSVTOIN 21:28 → 4TH 03-27 00:34
PROVIDERS: ADMIT Internal Medicine; ATTEND Internal Medicine
DX: I21.4 Non-ST elevation (NSTEMI) myocardial infarction (principal); I50.30 Unspecified diastolic (congestive) heart failure; I11.0 Hypertensive heart disease with heart failure; R55 Syncope and collapse; E87.6 Hypokalemia; E03.9 Hypothyroidism, unspecified; E78.5 Hyperlipidemia, unspecified; K21.9 Gastro-esophageal reflux disease without esophagitis; C67.9 Malignant neoplasm of bladder, unspecified; M15.9 Polyosteoarthritis, unspecified; F41.9 Anxiety disorder, unspecified; F32.A Depression, unspecified; G47.00 Insomnia, unspecified; I07.1 Rheumatic tricuspid insufficiency; I95.1 Orthostatic hypotension; J44.9 Chronic obstructive pulmonary disease, unspecified; Z20.822 Contact with and (suspected) exposure to COVID-19; Z79.82 Long term (current) use of aspirin; Z79.52 Long term (current) use of systemic steroids; Z79.899 Other long term (current) drug therapy; Z88.2 Allergy status to sulfonamides
CPT/HCPCS: 36415; 70450; 71045; 72125; 80048; 80053; 80061; 82550; 83735; 84484; 85025; 87811; 93005; 93306; 97116; 97161; 97530; 99285; G0378; J1650; J3480; J7040

== ENCOUNTER 2022-06-02 14:09 | Emergency (ER) | payer OTHER, BC ==
--- OUTSIDE RECORDS SUMMARY | 2022-06-02 14:33 | XMS REPORT | Continuity of Care Document ---
:[address] [facility] t Address [address] [place] [address] Care Team Providers Name Role Phone Connor Oliver MD Primary Care Physician EMILY ADAMS Attending Clinician Unavailable Connor Oliver Attending Clinician Unavailable VITA JAIMES Attending Clinician Unavailable BIRD YEN Attending Clinician Unavailable Bird Yen MD Attending Clinician Virtual, Surgeon Attending Clinician Unavailable VITA JAIMES Attending Clinician Unavailable OMAR YEN Attending Clinician Unavailable 1, [facility] Attending Clinician Unavailable FERNANDO POOLE Attending Clinician Unavailable ALEC FOSS Attending Clinician Unavailable Omar Yen MD Attending Clinician Vita Jaimes MD Attending Clinician Fernando Poloe MD Attending Clinician Doctor Unassigned, [place] Attending Clinician Unavailable 2, [facility] Attending Clinician Unavailable Alec Foss MD Attending Clinician Nestor Fuentes MD Attending Clinician C-Arm, Pmr Siemens Attending Clinician Chas MARTIN, Giancarlo Attending Clinician 13, [facility] Chair Attending Clinician Uzma PhD, Shun Attending Clinician Frandy MARTIN, Manny Leos Attending Clinician Mercy Garcia Attending Clinician Juanita RAYMUNDO, Kayleigh Attending Clinician Unavailable VITA JAIMES Admitting Clinician Unavailable BIRD YEN Admitting Clinician Unavailable Payers Payer Name Policy Type Policy Number Effective Date Expiration Date S polly MEDICARE PART A AND [id number] 2020 B 00:00:00 BCBS HMO [id number] 2017 BLUE/ESSENTIALS 00:00:00 MEDICARE A B [id number] 2020 00:00:00 MEDICARE PART A \\T\\ [id number] B - MEDICARE HEALTHSELECT [id number] 2020 SECONDARY 65+ - 00:00:00 BCBS CVCP-BCBS [id number] [facility] BLUE BEHAVIORAL [id number] [facility] MEDICARE PART A \\T\\ [id number] 2020 B 00:00:00 BCBS TRADITIONAL [id number] 2020 00:00:00 CDC REVIEW [id number] 2020 00:00:00 Problems Condition Condition Condition Status Onset Resolution Last Treating Co mments Source Name Details Category Date Date Treatment Clinician Date Overactive Overactive Disease Active [facility] bladder bladder 08-08 [facility] 00:00: of 00 Medicin e Constipati Constipati Disease Active [facility] on on 08-02 [facility] 00:00: of 00 Medicin e ORTEGA ORTEGA Disease Active [facility] (stress (stress 08-02 College urinary urinary 00:00: [...] Medical Branch Vaginal Vaginal Disease Active 2019-07 [facility] bleeding bleeding 1-19 Colleg e 00:00: of 00 Medicin e Port-A-Cat Port-A-Cat Disease Active [facility] h in place h in place 8-11 Co llege 00:00: of 00 Medicin e Urothelial Urothelial Disease Active [facility] Malignant Malignant Disease Active [place] [facility] neoplasm neoplasm 4-07 Colleg e of of 00:00: of overlappin overlappin 00 Me dicin g sites of g sites of e bladder bladder (HCCode) (HCCode) Bladder Bladder Disease Active [facility] 3[facility] 00 [place] Malignant Malignant Disease Active Uni vers neoplasm neoplasm 3-27 ity of of of 00:00: [place] overlappin overlappin 00 Me dical g sites of g sites of Br anch bladder bladder Cervical Cervical Problem Active 2021-07-06 [facility] radiculopa radiculopa 2-25 23:13:08 l thy thy 00:00: Aleksey (disorder) [...] pain Problem Active 2021-07-06 [facility] (finding) (finding) 1-29 23:13:08 l Active 00:00: Aleksey 08/17/2015 00 Problem 07/06/2021 [facility] Paresthesi Paresthes Problem Active 2016-2021-07-06 [facility] a ia 08-17 23:13:08 l (finding) (finding) 00:00: Herm beto Active 00 08/17/2015 Problem 07/06/2021 [facility] Malignant Malignant Problem Active Com mon neoplasm neoplasm [facility] urinary of urinary - [facility] bladder, bladder, St unspecifie unspecifie [facility] d site d site [facility] Malignant Malignant Problem Active Com [facility] neoplasm neoplasm [facility] - [facility] overlappin overlappin St g sites of g sites of [facility] bladder bladder Medical Center 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) Active Problem 07/06/2021 [facility] Dizziness Dizziness Problem Active 2021-07-06 [facility] (finding) (finding) 23:13:08 l Active [place] Problem 07/06/2021 [facility] Hip pain Hip pain Problem Active 2021-07-06 [facility] (finding) (finding) 23:13:08 l Active [place] Problem 07/06/2021 [facility] Hypertensi Hypertens Problem Active 2021-07-06 [facility] ve libby 23:13:08 l disorder, disorder, Herm beto systemic systemic arterial arterial (disorder) (disorder) Active Problem 07/06/2021 [facility] Hyperlipid Problem Active 2021-07-06 M emoria emia Hyperlipid 23:13:08 l (disorder) emia Harish n (disorder) Active Problem 07/06/2021 [facility] Hypothyroi Hypothyro [...] Me moria (finding) (finding) 23:13:08 l Active [place] Problem 07/06/2021 [facility] Peripheral Periphera Problem Active 2021-07-06 [facility] nerve l nerve 23:13:08 l disease disease [place] (disorder) (disorder) Active Problem 07/06/2021 [facility] Visual Visual Problem Active 2021-07-06 Mayco marylu disturbanc disturbanc 23:13:08 l e e [place] (disorder) (disorder) Active Problem 07/06/2021 [facility] [...] mide adverse 00:00: Medical Antibiot reaction 00 [place] ics) s SULFA Drug Active Swelling 0 Univers (SULFONA Class 3-23 ity of MIDE 00:00: [place] ANTIBIOT 00 [facility] ICS) Branch SULFA Allergy Active Swelling 2019-[address] [facility] (SULFONA 3-23 [facility] MIDE 00:00: Medical ANTIBIOT 00 [place] ICS) Sulfa Propensi Active Swelling 2019-0 [facility] Antibiot ty to 3-17 [place] ics adverse 00:00: of reaction 00 Medicin s to e drug sulfa sulfa Active [facility] drugs drugs l Aleksey NO KNOWN Drug Active Univers ALLERGIE Class ity of [facility] [place] [facility] Family History Family Member Diagnosis Comments Start Date Stop Date Source Natural father Diabetes [facility] Natural mother Breast Cancer [facility] Natural mother High Blood Pressure B [facility] Social History Social Habit Start Date [...] (finding) Exposure to 2022-02-04 2022-02-14 Not sure [facility] Lisaawa cornelius SARS-CoV-2 (event) 00:00:00 10:42:00 of Med icine Tobacco use and 2019-10-10 2019-10-[address] [facility] [address] [facility] kes exposure 00:00:00 00:00:00 Medical Center History SDOH 2019-10-10 2019-10-[address] [facility] Alcohol Frequency 00:00:00 00:00:00 Medical Center Sex Assigned At [address] [facility] kes 00:00:00 00:00:00 Medical Center Smoking Status Start Date Stop Date Source Unknown if ever smoked [facility] Social History [facility] Medications Ordered Filled Start Stop Current Ordering Indication Dosage Frequency Signature Comments Components Source Medication Medication Date Date Medication? Clinician (SIG) Name Name aurora Yes 1{capsu QD Take [address] -hydroCHLOR 9-15 le} capsule by Marquita ocampo Othiazide 11:07: mouth Medical (DYAZIDE) 12 every Center 37.5-25 mg morning. per capsule potassium Yes 10meq QD Take [address] chloride 9-15 mEq by [place] (MICRO-K) 11:07: mouth Medical 10 mEq CR 12 daily . Center capsule levothyroxi Yes 125ug Take [address] ne 9-15 mcg by [place] (SYNTHROID, 11:07: mouth Medic al LEVOTHROID) 12 Every Center 125 MCG morning on tablet an empty stomach. gabapentin Yes 300mg QD Take [address] (NEURONTIN) 9-15 mg by [facility] 300 MG 11:07: mouth Medical capsule 12 daily. [place] atorvastati Yes 20mg QD Take [address] n (LIPITOR) 9-15 by mouth Luke s 20 MG 11:07: daily. Medical tablet 12 [place] lamoTRIgine Yes 50mg QD Take [address] (LAMICTAL) 9-15 by mouth [facility] 25 MG 11:07: daily. Medical tablet 12 Center hydrOXYzine Yes anxiety 50mg Q.[id number] Take [address] (ATARAX) 25 9-15 [id number] by mouth 3 [facility] MG tablet 11:07: 3D (three) Medic al 12 times Center daily . baclofen Yes 10mg Q.5D Take [address] (LIORESAL) 9-15 by mouth 2 Alexia es 10 MG 11:07: (two) Medical tablet 12 times Center daily. multivitami Yes 1{capsu QD Take [address] n capsule 9-15 le} capsule by Luke s 11:07: mouth Medical 12 daily. [place] vit A/C/E Yes QD Take by [facility] t ac/ZnOx/cup 9-15 mouth [facility] rory oxide 11:07: daily. Medica l (EYE 12 Center VITAMIN AND MINERALS ORAL) b complex Yes 1{capsu QD Take [address] vitamins 9-15 le} capsule by [facility] capsule 11:07: mouth Medical 12 daily. [place] calcium Yes 1{tbl} Q.5D Take [address] citrate-vit 9-15 tablet by Alexia es oliver D 11:07: mouth 2 Medical (CITRACAL+D 12 (two) Center ) 315-200 times mg-unit per daily. tablet omega-3s-dh Yes QD Take by [facility] a-epa-fish 9-15 mouth [facility] oil (FISH 11:07: daily. Medica l OIL) 120 12 [place] mg-180 mg- 60 mg-1,200 mg CpDR lactobacill Yes 1{capsu QD Take [address] us 9-15 le} capsule by [facility] rhamnosus, 11:07: mouth Medica l GG, 12 daily. [place] ([facility] ) 10 billion cell capsule polycarboph Yes 625mg Q.[id number] Take [address] il 9-15 [id number] mg by [facility] (FIBERCON) 11:07: 3D mouth 3 Medi mariama 625 mg 12 (three) Center tablet times daily. biotin Yes QD Take by [facility] 2,500 mcg 9-15 mouth [facility] Cap 11:07: daily. [address] MAGNESIUM Yes Take by [facility]I S t GLYCINATE 9-15 mouth. [facility] ORAL 11:07: Medical 12 [place] UNKNOWN Yes L-Theanine [facility] 9-15 200 mg [facility] 11:07: daily . Medical [address] [place] [address] ascorbic Yes 500mg QD Take [address] acid, 9-15 mg by [place] vitamin C, 11:07: mouth Medica l (VITAMIN C) 12 daily. [place] 500 MG tablet TURMERIC Yes Take by [facility] ORAL 9-15 mouth. [facility] 11:07: Medical 12 [place] triamterene Yes 1{capsu QD Take [address] -hydroCHLOR 9-15 le} capsule by Marquita ocampo Othiazide 11:07: mouth Medical (DYAZIDE) 12 every Center 37.5-25 mg morning. per capsule potassium Yes 10meq QD Take [address] chloride 9-15 mEq by [place] (MICRO-K) 11:07: mouth Medical 10 mEq CR 12 daily . [place] capsule levothyroxi Yes 125ug Take [address] ne 9-15 mcg by [place] (SYNTHROID, 11:07: mouth Medic al LEVOTHROID) 12 Every Center 125 MCG morning on tablet an empty stomach. gabapentin Yes 300mg QD Take [address] (NEURONTIN) 9-15 mg by Luterrence 300 MG 11:07: mouth Medical capsule 12 daily. [place] atorvastati Yes 20mg QD Take [address] n (LIPITOR) 9-15 by mouth Luke s 20 MG 11:07: daily. Medical tablet 12 [place] lamoTRIgine Yes 50mg QD Take [address] (LAMICTAL) 9-15 by mouth [facility] 25 MG 11:07: daily. Medical tablet 12 [place] hydrOXYzine Yes anxiety 50mg Q.[id number] Take [address] (ATARAX) 25 9-15 [id number] by mouth 3 [facility] MG tablet 11:07: 3D (three) Medic al 12 times Center daily . baclofen Yes 10mg Q.5D Take [address] (LIORESAL) 9-15 by mouth 2 Alexia es 10 MG 11:07: (two) Medical tablet 12 times Center daily. multivitami Yes 1{capsu QD Take [address] n capsule 9-15 le} capsule by Luke s 11:07: mouth Medical 12 daily. [place] vit A/C/E Yes QD Take by [facility] t ac/ZnOx/cup 9-15 mouth [facility] rory oxide 11:07: daily. Medica l (EYE 12 Center VITAMIN AND MINERALS ORAL) b complex Yes 1{capsu QD Take [address] vitamins 9-15 le} capsule by [facility] capsule 11:07: mouth Medical 12 daily. Center calcium Yes 1{tbl} Q.5D Take [address] citrate-vit 9-15 tablet by Alexia es oliver D 11:07: mouth 2 Medical (CITRACAL+D 12 (two) Center ) 315-200 times mg-unit per daily. tablet omega-3s-dh Yes QD Take by [facility] a-epa-fish 9-15 mouth [facility] oil (FISH 11:07: daily. Medica l OIL) 120 12 Center mg-180 mg- 60 mg-1,200 mg CpDR lactobacill Yes 1{capsu QD Take [address] us 9-15 le} capsule by Luterrence rhamnosus, 11:07: mouth Medica l GG, 12 daily. [place] (CULTURELLE ) 10 billion cell capsule polycarboph Yes 625mg Q.[id number] Take [address] il 9-15 [id number] mg by [facility] (FIBERCON) 11:07: 3D mouth 3 Medi mariama 625 mg 12 (three) Center tablet times daily. biotin Yes QD Take by [facility] 2,500 mcg 9-15 mouth [facility] Cap 11:07: daily. [address] MAGNESIUM Yes Take by [facility]I S t GLYCINATE 9-15 mouth. [facility] ORAL 11:07: Medical [address] [place] [address] UNKNOWN Yes L-Theanine [facility] 9-15 200 mg [facility] 11:07: daily . [address] ascorbic Yes 500mg QD Take [address] acid, 9-15 mg by [facility] vitamin C, 11:07: mouth Medica l (VITAMIN C) 12 daily. [place] 500 MG tablet TURMERIC Yes Take by [facility] ORAL 9-15 mouth. [facility] 11:07: Medical [address] [place] [address] triamterene Yes 1{capsu QD Take [address] -hydroCHLOR 8-30 le} capsule by Marquita ocampo Othiazide 11:05: mouth Medical (DYAZIDE) 32 every Center 37.5-25 mg morning. per capsule potassium Yes 10meq QD Take [address] chloride 8-30 mEq by [facility] (MICRO-K) 11:05: mouth Medical 10 mEq CR 32 daily . Center capsule levothyroxi Yes 125ug Take [address] ne 8-30 mcg by [facility] (SYNTHROID, 11:05: mouth Medic al LEVOTHROID) 32 Every Center 125 MCG morning on tablet an empty stomach. gabapentin Yes 300mg QD Take [address] (NEURONTIN) 8-30 mg by [facility] 300 MG 11:05: mouth Medical capsule 32 daily. [place] atorvastati Yes 20mg QD Take [address] n (LIPITOR) 8-30 by mouth Luke s 20 MG 11:05: daily. Medical tablet 32 Center lamoTRIgine Yes 50mg QD Take [address] (LAMICTAL) 8-30 by mouth [facility] 25 MG 11:05: daily. Medical tablet 32 [place] hydrOXYzine Yes anxiety 50mg Q.[id number] Take [address] (ATARAX) 25 8-30 [id number] by mouth 3 [facility] MG tablet 11:05: [...] Luke s 11:05: mouth Medical 32 daily. [place] vit A/C/E Yes QD Take by [facility] t ac/ZnOx/cup 8-30 mouth [facility] rory oxide 11:05: daily. Medica l (EYE 32 Center VITAMIN AND MINERALS ORAL) b complex Yes 1{capsu QD Take [address] vitamins 8-30 le} capsule by [facility] capsule 11:05: mouth Medical 32 daily. [place] calcium Yes 1{tbl} Q.5D Take [address] citrate-vit 8-30 tablet by Alexia es oliver D 11:05: mouth 2 Medical (CITRACAL+D 32 (two) Center ) 315-200 times mg-unit per daily. tablet omega-3s-dh Yes QD Take by [facility] a-epa-fish 8-30 mouth [facility] oil (FISH 11:05: daily. Medica l OIL) 120 32 [place] mg-180 mg- 60 mg-1,200 mg CpDR lactobacill Yes 1{capsu QD Take [address] us 8-30 le} capsule by [facility] rhamnosus, 11:05: mouth Medica l GG, 32 daily. [place] (CULTURELLE ) 10 billion cell capsule polycarboph Yes 625mg Q.[id number] Take [address] il 8-30 [id number] mg by [facility] (FIBERCON) 11:05: 3D mouth 3 Medi mariama 625 mg 32 (three) Center tablet times daily. biotin Yes QD Take by [facility] 2,500 mcg 8-30 mouth [facility] Cap 11:05: daily. [address] MAGNESIUM Yes Take by [facility]I [facility] t GLYCINATE 8-30 mouth. [facility] ORAL 11:05: [address] UNKNOWN 0 Yes L-Theanine [facility] 8-30 200 mg [facility] 11:05: daily . [address] ascorbic 0 Yes 500mg QD Take [address] acid, 8-30 mg by [facility] vitamin C, 11:05: mouth Medica l (VITAMIN C) 32 daily. [place] 500 MG tablet TURMERIC Yes Take by [facility] ORAL 8-30 mouth. [facility] 11:05: [address] gabapentin Yes 300mg Take 300 [facility] (NEURONTIN) 8-02 mg by [place] 300 MG 15:41: mouth of capsule 27 daily. Medicin e levothyroxi Yes 112ug Take 112 [facility] ne 8-02 mcg by [place] (SYNTHROID) 15:41: mouth of 112 MCG 27 daily. Medicin tablet e olanzapine Yes 5mg Take 5 mg [facility] (ZYPREXA) 5 8-02 by mouth Shanel ege MG tablet 15:41: nightly. of 27 Medicin e Aspirin 81 Yes 81mg Take 81 mg [facility] MG tablet 8-02 by mouth Colleg e 15:41: daily. of 27 Medicin e atorvastati Yes 80mg Take 80 mg [facility] n (LIPITOR) 8-02 by mouth Shanel ege 80 MG 15:41: daily. of tablet 27 Medicin e gabapentin 0 Yes 300mg Take 300 [facility] (NEURONTIN) 7-29 mg by [place] 300 MG 11:32: mouth of capsule 54 daily. Medicin e levothyroxi 0 Yes 112ug Take 112 [facility] ne 7-29 mcg by [place] (SYNTHROID) 11:32: mouth of 112 MCG 54 daily. Medicin tablet e olanzapine 0 Yes 5mg Take 5 mg [facility] (ZYPREXA) 5 7-29 by mouth Shanel ege MG tablet 11:32: nightly. of 54 Medicin e Aspirin 81 0 Yes 81mg Take 81 mg [facility] MG tablet 7-29 by mouth Colleg e 11:32: daily. of 54 Medicin e atorvastati Yes 80mg Take 80 mg [facility] n (LIPITOR) 7-29 by mouth Shanel ege 80 MG 11:32: daily. of tablet 54 Medicin e gabapentin 0 Yes 300mg Take 300 [facility] (NEURONTIN) 4-29 mg by [place] 300 MG 10:38: mouth of capsule 03 daily. Medicin e levothyroxi Yes 112ug Take 112 [facility] ne 4-29 mcg by [place] (SYNTHROID) 10:38: mouth of 112 MCG 03 daily. Medicin tablet e olanzapine 2021-0 Yes 5mg Take 5 mg [facility] (ZYPREXA) 5 4-29 by mouth Shanel ege MG tablet 10:38: nightly. of 03 Medicin e Aspirin 81 2021-0 Yes 81mg Take 81 mg [facility] MG tablet 4-29 by mouth Colleg e 10:38: daily. of 03 Medicin e Aspirin 2021-0 Yes 81mg Take 81 mg [facility] (ASPIR-LOW) 3-01 by mouth Shanel ege 81 MG 15:04: daily. of tablet 50 Medicin e gabapentin 2021-0 Yes 300mg Take 300 [facility] (NEURONTIN) 3-01 mg by [place] 300 MG 15:04: mouth of capsule 33 daily. Medicin e levothyroxi 0 Yes 112ug Take 112 [facility] ne 3-01 mcg by [place] (SYNTHROID) 15:04: mouth of 112 MCG 33 daily. Medicin tablet e olanzapine Yes 5mg Take 5 mg [facility] (ZYPREXA) 5 - by mouth Shanel ege MG tablet 15:04: nightly. of 33 Medicin e atorvastati 2021- No 20mg Take 20 mg [facility] n (LIPITOR) 09-17 by mouth Col lege 20 MG 15:04: 00:00 daily. of tablet 29 :00 Medicin e Turmeric 2021- No 1{sonia Take 1 [place] dayna Curcumin 09-17 t} Caplet by Colle ge 500 MG CAPS 15:04: 00:00 mouth See of 29 :00 Admin Medicin Instructio e ns. trospium 2021- Yes [id number] 20mg Take 1 [facility] (SANCTURA) - Tablet by Shanel ege 20 MG 00:00: mouth 3 of tablet 00 times Medicin daily e (before meals). trospium 2021-0 Yes [id number] 20mg Take 1 [facility] (SANCTURA) 3- Tablet by Shanel ege 20 MG 00:00: mouth 3 of tablet 00 times Medicin daily e (before meals). trospium 2021-0 Yes [id number] 20mg Take 1 [facility] (SANCTURA) - Tablet by Shanel ege 20 MG 00:00: mouth 3 of tablet 00 times Medicin daily e (before meals). gabapentin Yes 300mg Take 300 [facility] (NEURONTIN) 1-28 mg by [place] 300 MG 10:09: mouth of capsule 27 daily. Medicin e atorvastati Yes 20mg Take 20 mg [facility] n (LIPITOR) 1-28 by mouth Shanel ege 20 MG 10:09: daily. of tablet 27 Medicin e levothyroxi Yes 112ug Take 112 [facility] ne 1-28 mcg by [place] (SYNTHROID) 10:09: mouth of 112 MCG 27 daily. Medicin tablet e olanzapine Yes 5mg Take 5 mg [facility] (ZYPREXA) 5 1-28 by mouth Shanel ege MG tablet 10:09: nightly. of 27 Medicin e Turmeric Yes 1{sonia Take 1 [facility] Curcumin 1-28 t} Caplet by Colleg e 500 MG CAPS 10:09: mouth See o f 27 Admin Medicin Instructio e ns. gabapentin Yes 300mg Take 300 [facility] (NEURONTIN) 1-20 mg by [place] 300 MG 11:03: mouth of capsule 14 daily. Medicin e atorvastati Yes 20mg Take 20 mg [facility] n (LIPITOR) 1-20 by mouth Shanel ege 20 MG 11:03: daily. of tablet 14 Medicin e levothyroxi Yes 112ug Take 112 [facility] ne 1-20 mcg by [place] (SYNTHROID) 11:03: mouth of 112 MCG 14 daily. Medicin tablet e olanzapine Yes 5mg Take 5 mg [facility] (ZYPREXA) 5 1-20 by mouth Shanel ege MG tablet 11:03: nightly. of 14 Medicin e Turmeric Yes 1{sonia Take 1 [facility] Curcumin 1-20 t} Caplet by Colleg e 500 MG CAPS 11:03: mouth See o f 14 Admin Medicin Instructio e ns. atorvastati 2020-07 Yes TAKE 1 [facility] n (LIPITOR) 2-15 TABLET BY [facility] lege 80 MG 00:00: MOUTH of tablet 00 DAILY AT Medicin BEDTIME e atorvastati 2020-07 Yes [facility] n (LIPITOR) 2-15 College 80 MG 00:00: of tablet 00 Medicin e atorvastati 2020-07- No [facility] [facility] (LIPITOR) 2-15 03-01 College 80 MG 00:00: 00:00 of tablet 00 :00 Medicin e olanzapine 2020-07 Yes 5 mg = 1 Mem oria 5 MG Oral 1-04 tab, PO, l Tablet 15:28: TID, 0 Aleksey 00 Refill(s) gabapentin 2020-07 Yes 400 mg = 1 M emoria 400 MG Oral 1-04 cap, PO, l Capsule 15:24: Bedtime, # Herm beto 00 90 cap, 1 Refill(s), Pharmacy: [facility] #[id number], 157.48, cm, 05/23/21 10:05:00 CDT, Height, 63.182, kg, 05/23/21 10:05:00 CDT, Weight docusate 2020-07 Yes TAKE 1 [facility] sodium 0-26 CAPSULE BY [place] (COLACE) 00:00: MOUTH of 100 MG 00 [...] OTHER DAY docusate 2020-07 Yes TAKE 1 [facility] sodium 0-26 CAPSULE BY [place] (COLACE) 00:00: MOUTH of 100 MG 00 [...] TAKE 1 [place] sodium 0-26 CAPSULE BY [place] (COLACE) 00:00: MOUTH of 100 MG 00 DAILY Medicin capsule e docusate 2020-07 Yes TAKE 1 [facility] sodium 0-26 CAPSULE BY [place] (COLACE) 00:00: MOUTH of 100 MG 00 DAILY Medicin capsule e docusate 2020-07 Yes TAKE 1 [facility] sodium 0-26 CAPSULE BY [place] (COLACE) 00:00: MOUTH of 100 MG 00 DAILY Medicin capsule e docusate 2020-07 Yes TAKE 1 [facility] sodium 0-26 CAPSULE BY [place] (COLACE) 00:00: MOUTH of 100 MG 00 DAILY Medicin capsule e omeprazole 2020-07- No TAKE 1 [facility] (PRILOSEC) 0-26 03-01 CAPSULE BY Co llege 40 MG 00:00: 00:00 MOUTH of capsule 00 :00 DAILY Medicin e polyethylen 2020-07- No MIX 17 [place] day[place] e glycol 0-26 03-01 GRAMS INTO Shanel ege (GLYCOLAX) 00:00: 00:00 8 [facility] of 17 GM/SCOOP 00 :00 OF WATER Medi khushi powder OR JUICE e AND DRINK BY MOUTH EVERY OTHER DAY gabapentin 2020-07 Yes 300mg Take 300 [facility] (NEURONTIN) 0-19 mg by [place] 300 MG 14:36: mouth of capsule 24 daily. Medicin e atorvastati 2020-07 Yes 20mg Take 20 mg [facility] n (LIPITOR) 0-19 by mouth Shanel ege 20 MG 14:36: daily. of tablet 24 Medicin e levothyroxi 2020-07 Yes 112ug Take 112 [facility] ne 0-19 mcg by [place] (SYNTHROID) 14:36: mouth of 112 MCG 24 daily. Medicin tablet e olanzapine 2020-07 Yes 5mg Take 5 mg [facility] (ZYPREXA) 5 0-19 by mouth Shanel ege MG tablet 14:36: nightly. of 24 Medicin e Turmeric 2020-07 Yes 1{sonia Take 1 [facility] Curcumin 0-19 t} Caplet by Shwetha e 500 MG CAPS 14:36: mouth See o f 24 Admin Medicin Instructio e ns. clonazepam 2020-07- No 1{tbl} Take 1 [facility] (KLONOPIN) 0-19 10-19 Tablet by Col lege 0.5 MG 14:36: 00:00 mouth at of tablet 22 :00 bedtime. Medicin e gabapentin Yes 300mg Take 300 [facility] (NEURONTIN) 7-13 mg by [place] 300 MG 13:24: mouth of capsule 06 daily. Medicin e atorvastati Yes 20mg Take 20 mg [facility] n (LIPITOR) 7-13 by mouth Shanel ege 20 MG 13:24: daily. of tablet 06 Medicin e levothyroxi Yes 112ug Take 112 [facility] ne 7-13 mcg by [place] (SYNTHROID) 13:24: mouth of 112 MCG 06 daily. Medicin tablet e olanzapine Yes 5mg Take 5 mg [facility] (ZYPREXA) 5 7-13 by mouth Shanel ege MG tablet 13:24: nightly. of 06 Medicin e clonazepam Yes 1{tbl} Take 1 [place] dayna (KLONOPIN) 7- Tablet by Shanel ege 0.5 MG 13:24: mouth at of tablet 06 bedtime. Medicin e Turmeric Yes 1{sonia Take 1 [facility] Curcumin 7-13 t} Caplet by Lisag e 500 MG CAPS 13:24: mouth See o f 06 Admin Medicin Instructio e ns. gabapentin Yes 300mg Take 300 [facility] (NEURONTIN) 7-13 mg by [place] 300 MG 13:24: mouth of capsule 06 daily. Medicin e atorvastati Yes 20mg Take 20 mg [facility] n (LIPITOR) - by mouth Shanel ege 20 MG 13:24: daily. of tablet 06 Medicin e levothyroxi Yes 112ug Take 112 [facility] ne 7-13 mcg by [place] (SYNTHROID) 13:24: mouth of 112 MCG 06 daily. Medicin tablet e olanzapine Yes 5mg Take 5 mg [facility] (ZYPREXA) 5 01-29 by mouth Shanel ege MG tablet 13:24: nightly. of 06 Medicin e escitalopra 2020- No 5mg Take 5 mg [facility] m (LEXAPRO) 01-29 by mouth Col [facility]ge 5 MG tablet 13:23: 00:00 daily. of 47 :00 Medicin e escitalopra 2020- No 5mg Take 5 mg [facility] m (LEXAPRO) 01-29 by mouth Col lege 5 MG tablet 13:23: 00:00 daily. of 47 :00 Medicin e escitalopra Yes 20mg Take 20 mg [facility] m (LEXAPRO) - by mouth Shanel ege 20 MG 00:00: daily. of tablet 00 Medicin e escitalopra Yes 20mg Take 20 mg [facility] m (LEXAPRO) - by mouth Shanel ege 20 MG 00:00: daily. of tablet 00 Medicin e escitalopra Yes 20mg Take 20 mg [facility] m (LEXAPRO) 01-17 by mouth Shanel ege 20 MG 00:00: daily. of tablet 00 Medicin e escitalopra 2020-0 Yes 20mg Take 20 mg [facility] m (LEXAPRO) - by mouth Shanel ege 20 MG 00:00: daily. of tablet 00 Medicin e escitalopra 2020-0 Yes 20mg Take 20 mg [facility] m (LEXAPRO) - by mouth Shanel ege 20 MG 00:00: daily. of tablet 00 Medicin e escitalopra 2020-0 Yes 20mg Take 20 mg [facility] m (LEXAPRO) 01-17 by mouth Shanel ege 20 MG 00:00: daily. of tablet 00 Medicin e escitalopra 2020-0 Yes 20mg Take 20 mg [facility] m (LEXAPRO) - by mouth Shanel ege 20 MG 00:00: daily. of tablet 00 Medicin e escitalopra 2020-0 Yes 20mg Take 20 mg [facility] m (LEXAPRO) - by mouth Shanel ege 20 MG 00:00: daily. of tablet 00 Medicin e baclofen 10 Yes 10 mg = 1 M emoria mg oral -23 tab, PO, l tablet 14:58: Bedtime, # Bing nn 00 30 tab, 3 Refill(s), Pharmacy: [facility] #[id number], 157.48, cm, 01/09/21 9:30:00 CDT, Height, 61.818, kg, 01/09/21 9:30:00 CDT, Weight baclofen 2020-0 Yes 10mg Take 10 mg [place] [facility] (LIORESAL) 6-23 by mouth Colle ge 10 MG 00:00: at of tablet 00 bedtime. Medicin e baclofen 2020-0 2020- No 10mg Take 10 mg [facility] (LIORESAL) 6-23 10-19 by mouth Shanel ege 10 MG 00:00: 00:00 at of tablet 00 :00 bedtime. Medicin e gabapentin 0 Yes 300mg Take 300 [facility] (NEURONTIN) 6-01 mg by [place] 300 MG 15:26: mouth of capsule 27 daily. Medicin e atorvastati 0 Yes 20mg Take 20 mg [facility] n (LIPITOR) 6- by mouth Shanel ege 20 MG 15:26: daily. of tablet 27 Medicin e escitalopra Yes 5mg Take 5 mg [facility] m (LEXAPRO) 6- by mouth Shanel ege 5 MG tablet 15:26: daily. of 27 Medicin e levothyroxi Yes 112ug Take 112 [facility] ne 6- mcg by [place] (SYNTHROID) 15:26: mouth of 112 MCG 27 daily. Medicin tablet e olanzapine Yes 5mg Take 5 mg [facility] (ZYPREXA) 5 6 by mouth Shanel ege MG tablet 15:26: nightly. of 27 Medicin e trospium Yes [id number] 20mg Take 1 [facility] (SANCTURA) 6- Tablet by Shanel ege 20 MG 00:00: mouth 3 of tablet 00 times Medicin daily e (before meals). trospium Yes [id number] 20mg Take 1 [facility] (SANCTURA) 6- Tablet by Shanel ege 20 MG 00:00: mouth 3 of tablet 00 times Medicin daily e (before meals). trospium Yes [id number] 20mg Take 1 [facility] (SANCTURA) 6-01 Tablet by Shanel ege 20 MG 00:00: mouth 3 of tablet 00 times Medicin daily e (before meals). trospium 0 Yes [id number] 20mg Take 1 [facility] (SANCTURA) 6- Tablet by Shanel ege 20 MG 00:00: mouth 3 of tablet 00 times Medicin daily e (before meals). trospium 0 Yes [id number] 20mg Take 1 [facility] (SANCTURA) 6-01 Tablet by Shanel ege 20 MG 00:00: mouth 3 of tablet 00 times Medicin daily e (before meals). trospium 0 Yes [id number] 20mg Take 1 [facility] (SANCTURA) 6-01 Tablet by Shanel ege 20 MG 00:00: mouth 3 of tablet 00 times Medicin daily e (before meals). trospium 0 Yes [id number] 20mg Take 1 [facility] (SANCTURA) 6-01 Tablet by Shanel ege 20 MG 00:00: mouth 3 of tablet 00 times Medicin daily e (before meals). gabapentin Yes 300mg Take 300 [facility] (NEURONTIN) 4-29 mg by [place] 300 MG 16:09: mouth of capsule 13 daily. Medicin e atorvastati Yes 20mg Take 20 mg [facility] n (LIPITOR) 4-29 by mouth Shanel ege 20 MG 16:09: daily. of tablet 13 Medicin e escitalopra Yes 5mg Take 5 mg [facility] (LEXAPRO) 4-29 by mouth Shanel ege 5 MG tablet 16:09: daily. of 13 Medicin e levothyroxi Yes 112ug Take 112 [facility] ne 4-29 mcg by [place] (SYNTHROID) 16:09: mouth of 112 MCG 13 daily. Medicin tablet e olanzapine Yes 5mg Take 5 mg [facility] (ZYPREXA) 5 4-29 by mouth Shanel ege MG tablet 16:09: nightly. of 13 Medicin e trospium 2020- No [id number] 20mg Take 1 [facility] (SANCTURA) 4-29 06- Tablet by [facility] lege 20 MG 00:00: 00:00 mouth 3 of tablet 00 :00 times Medicin daily e (before meals). BISACODYL 5 Yes 1{tbl} Take 1 [facility] MG EC 4-21 Tablet by [place] tablet 00:00: mouth of 00 daily. Medicin e BISACODYL 5 2020- No 1{tbl} Take 1 [facility] MG EC 4-21 -19 Tablet by [place] tablet 00:00: 00:00 mouth of 00 :00 daily. Medicin e olanzapine 0 Yes 5mg Take 5 mg [facility] (ZYPREXA) 5 4-09 by mouth Shanel ege MG tablet 16:47: nightly. of 51 Medicin e gabapentin Yes 300mg Take 300 [facility] (NEURONTIN) 4-09 mg by [place] 300 MG 16:46: mouth of capsule 06 daily. Medicin e atorvastati Yes 20mg Take 20 mg [facility] n (LIPITOR) 4-09 by mouth Shanel ege 20 MG 16:46: daily. of tablet 06 Medicin e escitalopra 0 Yes 5mg Take 5 mg [facility] (LEXAPRO) 4-09 by mouth Shanel ege 5 MG tablet 16:46: daily. of 06 Medicin e levothyroxi 0 Yes 112ug Take 112 [facility] ne 4-09 mcg by [place] (SYNTHROID) 16:46: mouth of 112 MCG 06 [...] 112 [facility] ne 3-18 mcg by [place] (SYNTHROID) 15:40: mouth of 112 MCG 34 daily. Medicin tablet e gabapentin 0 Yes 300mg Take 300 [facility] (NEURONTIN) 3-18 mg by [place] 300 MG 15:40: mouth of capsule 34 [...] 112 [facility] ne 3-18 mcg by [place] (SYNTHROID) 15:40: mouth of 112 MCG 34 daily. Medicin tablet e gabapentin 2020-0 Yes 300mg Take 300 [facility] (NEURONTIN) 3-18 mg by [place] 300 MG 15:40: mouth of capsule 34 daily. Medicin e gabapentin 2020-0 Yes 300mg Take 300 [facility] (NEURONTIN) 2-19 mg by [place] 300 MG 21:01: mouth of capsule 41 daily. Medicin e atorvastati 2020-0 Yes 20mg Take 20 mg [facility] n (LIPITOR) 2-19 by mouth Shanel ege 20 MG 21:01: daily. of tablet 41 Medicin e escitalopra Yes 5mg Take 5 mg [facility] (LEXAPRO) 2-19 by mouth Shanel ege 5 MG tablet 21:01: daily. of 41 Medicin e levothyroxi Yes 112ug Take 112 [facility] ne 2-19 mcg by [place] (SYNTHROID) 21:01: mouth of 112 MCG 41 daily. Medicin tablet e FAMOTIDINE 2020- No 400mg Take 400 [facility] OR 2-19 02-19 mg by [place] 21:01: 00:00 mouth of 29 :00 daily. Medicin e trospium Yes [id number] 20mg Take 1 [facility] (SANCTURA) 2-19 Tablet by Shanel ege 20 MG 00:00: mouth 3 of tablet 00 times Medicin daily e (before meals). trospium Yes [id number] 20mg Take 1 [facility] (SANCTURA) 2-19 Tablet by Shanel ege 20 MG 00:00: mouth 3 of tablet 00 times Medicin daily e (before meals). trospium Yes [id number] 20mg Take 1 [facility] (SANCTURA) 2-19 Tablet by Shanel ege 20 MG 00:00: mouth 3 of tablet 00 times Medicin daily e (before meals). trospium Yes [id number] 20mg Take 1 [facility] (SANCTURA) 2-19 Tablet by Shanel ege 20 MG 00:00: mouth 3 of tablet 00 times Medicin daily e (before meals). gabapentin Yes 600 mg = 2 M emoria 300 MG Oral 2-17 cap, PO, l Capsule 19:42: Bedtime, # Herm beto 00 180 cap, 2 Refill(s), Pharmacy: [facility] #[id number], 160.02, cm, 09/05/20 13:20:00 [employer], Height, 59.545, kg, 09/05/20 13:20:00 [employer]CH[employer], Weight trospium 2021- No [id number] 20mg Take 1 [facility] (SANCTURA) -26 -22 Tablet by Col [facility]ge 20 MG 00:00: 05:59 mouth 2 of tablet 00 :00 times Medicin daily e (before meals) for 360 days. amoxicillin 2020- No [id number] 1{tbl} Take 1 [facility] -clavulanat 1-15 09-07 Tablet by Co llege e 00:00: 00:00 mouth two of (AUGMENTIN) 00 :00 times Medicin 875-125 MG daily. e per tablet gabapentin Yes 300mg Take 300 [facility] (NEURONTIN) 1-14 mg by [place] 300 MG 16:03: mouth of capsule 32 daily. Medicin e atorvastati Yes 20mg Take 20 mg [facility] n (LIPITOR) 1-14 by mouth Shanel ege 20 MG 16:03: daily. of tablet 32 Medicin e FAMOTIDINE Yes 400mg Take 400 [facility] OR 1-14 mg by [place] 16:03: mouth of 32 daily. Medicin e escitalopra Yes 5mg Take 5 mg [facility] m (LEXAPRO) 14 by mouth Shanel ege 5 MG tablet 16:03: daily. of 32 Medicin e levothyroxi Yes 112ug Take 112 [facility] ne 1-14 mcg by [place] (SYNTHROID) 16:03: mouth of 112 MCG 32 daily. Medicin tablet e Ascorbic 2020- No Take by Brittany r Acid 07-27 mouth [place] (VITAMIN C) 17:43: 00:00 daily. of 500 MG CAPS 32 :00 Medicin e escitalopra Yes 5mg Take 5 mg [facility] m (LEXAPRO) 07-27 by mouth Shanel ege 5 MG tablet [...] e BIOTIN 5000 2020- No Take by [facility] OR 07-27 mouth [place] 17:43: 00:00 daily. of 20 :00 Medicin e Calcium 2020- No Take by [facility] Citrate-Vit 07-27 mouth two Co llegcornelius oliver D 17:43: 00:00 times of (CALCIUM 17 :00 daily. Medicin CITRATE + D e OR) L-THEANINE 2020- No 200mg Take 200 [facility] OR 07-27 mg by [place] 17:43: 00:00 mouth of 11 :00 daily. Medicin e Lactobacill 2020- No Take by Zachariah lambert us 07-27 mouth [place] (PROBIOTIC 17:43: 00:00 daily. of ACIDOPHILUS 08 :00 Medicin OR) e levothyroxi 2020- No 125ug Take 125 [facility] ne 07-27 mcg by [place] (SYNTHROID) 17:43: 00:00 mouth of 125 MCG 02 :00 daily. Medicin tablet e Lidocaine 2020- No Apply [facility] 0.5 % GEL 07-27 topically. Col [facility]ge 17:42: 00:00 of 59 :00 Medicin e Magnesium 2020- No Take by [facility] or 400 MG TABS 07-27 mouth. Colle ge 17:42: 00:00 of 47 :00 Medicin e Multiple 2020- No Take by [facility] Vitamins-Mi 07-27 mouth Colleg e nerals 17:42: 00:00 daily. of (MULTIVITAM 40 :00 Medicin IN ADULT e OR) [place]-3 2020- No Take by [facility] Fatty Acids 07-27 mouth Colleg e (FISH OIL) 17:42: 00:00 daily. of 1200 MG 34 :00 Medicin CAPS e gabapentin Yes 300mg Take 300 [facility] (NEURONTIN) 07-27 mg by [place] 300 MG 17:41: mouth of capsule 02 daily. Medicin e atorvastati Yes 20mg Take 20 mg [facility] n (LIPITOR) 07-27 by mouth Shanel ege 20 MG 17:41: daily. of tablet 02 Medicin e FAMOTIDINE 2021-0 Yes 400mg Take 400 [facility] OR 1-08 mg by [place] 17:41: mouth of 02 daily. Medicin e lorazepam 2020-0 Yes 1mg Take 1 mg [place] [facility] (ATIVAN) 1 1-07 by mouth Colle ge MG tablet 00:00: daily. of Medicin e lorazepam 2020-0 Yes 1mg Take 1 mg [place] [facility] (ATIVAN) 1 1-07 by mouth Colle ge MG tablet 00:00: daily. of Medicin e lorazepam 2020-0 Yes 1mg Take 1 mg [place] [facility] (ATIVAN) 1 1-07 by mouth Colle ge MG tablet 00:00: daily. of Medicin e lorazepam 2020-0 Yes 1mg Take 1 mg [place] (ATIVAN) 1 1-07 by mouth Colle ge MG tablet 00:00: daily. of Medicin e lorazepam 2020-0 Yes 1mg Take 1 mg [place] (ATIVAN) 1 1-07 by mouth Colle ge MG tablet 00:00: daily. of Medicin e lorazepam 2020-0 Yes 1mg Take 1 mg [place] (ATIVAN) 1 1-07 by mouth Colle ge MG tablet 00:00: daily. of Medicin e lorazepam 2020-0 Yes 1mg Take 1 mg [place] (ATIVAN) 1 1-07 by mouth Colle ge MG tablet 00:00: daily. of Medicin e lorazepam 2020-0 Yes 1mg Take 1 mg [place] (ATIVAN) 1 1-07 by mouth Colle ge MG tablet 00:00: daily. of Medicin e lorazepam 2020-0 Yes 1mg Take 1 mg [place] (ATIVAN) 1 1-07 by mouth Colle ge MG tablet 00:00: daily. of Medicin e lorazepam 2020-0 Yes 1mg Take 1 mg [place] (ATIVAN) 1 1-07 by mouth Colle ge MG tablet 00:00: daily. of Medicin e lorazepam 2020-0 Yes 1mg Take 1 mg [place] (ATIVAN) 1 1-07 by mouth Colle ge MG tablet 00:00: daily. of Medicin e lorazepam 2020-0 Yes 1mg Take 1 mg [place] (ATIVAN) 1 1-07 by mouth Colle ge MG tablet 00:00: daily. of Medicin e lorazepam 2020-0 Yes 1mg Take 1 mg [place] (ATIVAN) 1 1-07 by mouth Colle ge MG tablet 00:00: daily. of Medicin e lorazepam Yes 1mg Take 1 mg [place] (ATIVAN) 1 1-07 by mouth Colle ge MG tablet 00:00: daily. of Medicin e lorazepam Yes 1mg Take 1 mg [place] (ATIVAN) 1 1-07 by mouth Colle ge MG tablet 00:00: daily. of Medicin e lorazepam Yes 1mg Take 1 mg [place] (ATIVAN) 1 1-07 by mouth Colle ge MG tablet 00:00: daily. of Medicin e lorazepam Yes 1mg Take 1 mg [place] (ATIVAN) 1 1-07 by mouth Colle ge MG tablet 00:00: daily. of Medicin e triamterene 2019-07 Yes 1{capsu Take 1 U nivers -hydrochlor 2-07 le} capsule by it y of othiazide 20:27: mouth. [place] 37.5-25 mg Medical per capsule Branch b complex 2019-07 Yes 1{capsu Take 1 Uni vers vitamins 2-07 le} capsule by ity o f capsule 20:27: mouth. [address] Branch MAGNESIUM 2019-07 Yes Take by Unive rs GLYCINATE 2-07 mouth. ity of ORAL 20:27: [address] TURMERIC 2019-07 Yes Take by Univer s ORAL 2-07 mouth. ity of 20:27: [address] Branch ascorbic 2019-07 Yes 500mg Take 500 Univ ers acid, 2-07 mg by ity of vitamin C, 20:27: mouth. [place] 500 mg Medical tablet Branch atorvastati 2019-07 Yes 20mg Take 20 mg Univers n 20 mg 2-07 by mouth. ity of tablet 20:27: [address] baclofen 10 2019-07 Yes 10mg Take 10 mg Univers mg tablet 2-07 by mouth. ity o f 20:27: [address] Biotin 2019-07 Yes Take by Univers 2,500 mcg 2-07 mouth. ity of Cap 20:27: [address] Branch calcium 2019-07 Yes 1{tbl} Take 1 Univer s citrate-vit 2-07 tablet by ity of oliver D3 315 20:27: [facility] Medical (200 unit) Branch per tablet polycarboph 2019-07 Yes 625mg Take 625 U nivers il 625 mg 2-07 mg by ity of tablet 20:27: mouth. [address] Branch gabapentin 2019-07 Yes 300mg Take 300 Un landen 300 mg 2-07 mg by ity of capsule 20:27: mouth. [address] Branch hydrOXYzine 2019-07 Yes 50mg Take 50 mg Univers 25 mg 2-07 by mouth. ity of tablet 20:27: [address] Branch lactobacill 2019-07 Yes 1{capsu Take 1 U nivers us 2-07 le} capsule by ity of rhamnosus, 20:27: mouth. [place] GG, [facility] Medical billion Branch cell capsule lamoTRIgine 2019-07 Yes 50mg Take 50 mg Univers 25 mg 2-07 by mouth. ity of tablet 20:27: [address] Branch levothyroxi 2019-07 Yes 125ug Take 125 U nivers ne 125 mcg 2-07 mcg by ity of tablet 20:27: mouth. [address] Branch multivitami 2019-07 Yes 1{capsu Take 1 U nivers n capsule 2-07 le} capsule by ity of 20:27: mouth. [address] omega-3s-dh 2019-07 Yes Take by Uni vers a-epa-fish 2-07 mouth. ity of oil 120 20:27: [place] mg-180 mg- Medical 60 mg-1,200 Branch mg CpDR potassium 2019-07 Yes 10meq Take 10 Univ ers chloride 10 2-07 mEq by ity of mEq CR 20:27: mouth. [address] Branch triamterene 2019-07 Yes 1{capsu Take 1 U nivers -hydrochlor 2-07 le} capsule by it y of othiazide 20:27: mouth. [place] 37.5-25 mg 36 Medical per capsule Branch b complex 2019-07 Yes 1{capsu Take 1 Uni vers vitamins 2-07 le} capsule by ity o f capsule 20:27: mouth. [address] Branch MAGNESIUM 2019-07 Yes Take by Unive rs GLYCINATE 2-07 mouth. ity of ORAL 20:27: [address] Branch TURMERIC 2019-07 Yes Take by Univer s ORAL 2-07 mouth. ity of 20:27: [address] ascorbic 2019-07 Yes 500mg Take 500 Univ ers acid, 2-07 mg by ity of vitamin C, 20:27: mouth. [place] 500 mg Medical tablet Branch atorvastati 2019-07 Yes 20mg Take 20 mg Univers n 20 mg 2-07 by mouth. ity of tablet 20:27: [address] baclofen 10 2019-07 Yes 10mg Take 10 mg Univers mg tablet 2-07 by mouth. ity o f 20:27: [address] Biotin 2019-07 Yes Take by Univers 2,500 mcg 2-07 mouth. ity of Cap 20:27: [address] calcium 2019-07 Yes 1{tbl} Take 1 Univer s citrate-vit 2-07 tablet by ity of [place] D3 315 20:27: mouth. [place] mg-5 mcg Medical (200 unit) Branch per tablet polycarboph 2019-07 Yes 625mg Take 625 U nivers il 625 mg 2-07 mg by ity of tablet 20:27: mouth. [address] gabapentin 2019-07 Yes 300mg Take 300 Un landen 300 mg 2-07 mg by ity of capsule 20:27: mouth. [address] hydrOXYzine 2019-07 Yes 50mg Take 50 mg Univers 25 mg 2-07 by mouth. ity of tablet 20:27: [address] lactobacill 2019-07 Yes 1{capsu Take 1 U nivers us 2-07 le} capsule by ity of rhamnosus, 20:27: mouth. [place] GG, [facility] Medical billion Branch cell capsule lamoTRIgine 2019-07 Yes 50mg Take 50 mg Univers 25 mg 2-07 by mouth. ity of tablet 20:27: [address] Branch levothyroxi 2019-07 Yes 125ug Take 125 U nivers ne 125 mcg 2-07 mcg by ity of tablet 20:27: mouth. [address] multivitami 2019-07 Yes 1{capsu Take 1 U nivers n capsule 2-07 le} capsule by ity of 20:27: mouth. [address] omega-3s-dh 2019-07 Yes Take by Uni vers a-epa-fish 2-07 mouth. ity of oil 120 20:27: [place] mg-180 mg- Medical 60 mg-1,200 Branch mg CpDR potassium 2019-07 Yes 10meq Take 10 Univ ers chloride 10 2-07 mEq by ity of mEq CR 20:27: mouth. [place] [address] Medical Branch triamterene 2019-07 Yes 1{capsu Take 1 U nivers -hydrochlor 2-07 le} capsule by it y of othiazide 20:27: mouth. [place] 37.5-25 mg 36 Medical per capsule Branch b complex 2019-07 Yes 1{capsu Take 1 Uni vers vitamins 2-07 le} capsule by ity o f capsule 20:27: mouth. [place] [address] Medical Branch MAGNESIUM 2019-07 Yes Take by Unive rs GLYCINATE 2-07 mouth. ity of ORAL 20:27: [address] Branch TURMERIC 2019-07 Yes Take by Univer s ORAL 2-07 mouth. ity of 20:27: [address] ascorbic 2019-07 Yes 500mg Take 500 Univ ers acid, 2-07 mg by ity of vitamin C, 20:27: mouth. [place] 500 mg Medical tablet Branch MAGNESIUM 2019-07 Yes Take by Unive rs GLYCINATE 2-07 mouth. ity of ORAL 20:27: [address] atorvastati 2019-07 Yes 20mg Take 20 mg Univers n 20 mg 2-07 by mouth. ity of tablet 20:27: [address] baclofen 10 2019-07 Yes 10mg Take 10 mg Univers mg tablet 2-07 by mouth. ity o f 20:27: [address] Biotin 2019-07 Yes Take by Univers 2,500 mcg 2-07 mouth. ity of Cap 20:27: [address] calcium 2019-07 Yes 1{tbl} Take 1 Univer s citrate-vit 2-07 tablet by ity of [place] D3 315 20:27: [place]. [place] mg-5 mcg Medical (200 unit) Branch per tablet polycarboph 2019-07 Yes 625mg Take 625 U nivers il 625 mg 2-07 mg by ity of tablet 20:27: mouth. [place] [address] Medical Branch gabapentin 2019-07 Yes 300mg Take 300 Un landen 300 mg 2-07 mg by ity of capsule 20:27: mouth. [address] TURMERIC 2019-07 Yes Take by Univer s ORAL 2-07 mouth. ity of 20:27: [address] hydrOXYzine 2019-07 Yes 50mg Take 50 mg Univers 25 mg 2-07 by mouth. ity of tablet 20:27: [place] [address] Medical Branch lactobacill 2019-07 Yes 1{capsu Take 1 U nivers us 2-07 le} capsule by ity of rhamnosus, 20:27: mouth. [place] GG, 10 Medical billion Branch cell capsule lamoTRIgine 2019-07 Yes 50mg Take 50 mg Univers 25 mg 2-07 by mouth. ity of tablet 20:27: [place] [address] Medical Branch levothyroxi 2019-07 Yes 125ug Take 125 U nivers ne 125 mcg 2-07 mcg by ity of tablet 20:27: mouth. [place] [address] Medical Branch ascorbic 2019-07 Yes 500mg Take 500 Univ ers acid, 2-07 mg by ity of vitamin C, 20:27: mouth. [place] 500 mg Medical tablet Branch multivitami 2019-07 Yes 1{capsu Take 1 U nivers n capsule 2-07 le} capsule by ity of 20:27: mouth. [address] Branch omega-3s-dh 2019-07 Yes Take by Uni vers a-epa-fish 2-07 mouth. ity of oil 120 20:27: [place] mg-180 mg- Medical 60 mg-1,200 Branch mg CpDR potassium 2019-07 Yes 10meq Take 10 Univ ers chloride 10 2-07 mEq by ity of mEq CR 20:27: mouth. [place] [address] Medical Branch atorvastati 2019-07 Yes 20mg Take 20 mg Univers n 20 mg 2-07 by mouth. ity of tablet 20:27: [address] Branch triamterene 2019-07 Yes 1{capsu Take 1 U nivers -hydrochlor 2-07 le} capsule by it y of othiazide 20:27: mouth. [place] 37.5-25 mg Medical per capsule Branch b complex 2019-07 Yes 1{capsu Take 1 Uni vers vitamins 2-07 le} capsule by ity o f capsule 20:27: mouth. [place] [address] Medical Branch MAGNESIUM 2019- Yes Take by Unive rs GLYCINATE 2-07 mouth. ity of ORAL 20:27: [address] Branch TURMERIC 2019-07 Yes Take by Univer s ORAL 2-07 mouth. ity of 20:27: [place] [address] Medical Branch ascorbic 2019-07 Yes 500mg Take 500 Univ ers acid, 2-07 mg by ity of vitamin C, 20:27: mouth. [place] 500 mg Medical tablet Branch atorvastati 2019-07 Yes 20mg Take 20 mg Univers n 20 mg 2-07 by mouth. ity of tablet 20:27: [address] Branch baclofen 10 2019-07 Yes 10mg Take 10 mg Univers mg tablet 2-07 by mouth. ity o f 20:27: [address] Biotin 2019-07 Yes Take by Univers 2,500 mcg 2-07 mouth. ity of Cap 20:27: [address] calcium 2019-07 Yes 1{tbl} Take 1 Univer s citrate-vit 2-07 tablet by ity of [place] D3 315 20:27: mouth. [place] mg-5 mcg Medical (200 unit) Branch per tablet polycarboph 2019-07 Yes 625mg Take 625 U nivers il 625 mg 2-07 mg by ity of tablet 20:27: mouth. [address] Branch gabapentin 2019-07 Yes 300mg Take 300 Un landen 300 mg 2-07 mg by ity of capsule 20:27: mouth. [address] baclofen 10 2019-07 Yes 10mg Take 10 mg Univers mg tablet 2-07 by mouth. ity o f 20:27: [address] Branch hydrOXYzine 2019-07 Yes 50mg Take 50 mg Univers 25 mg 2-07 by mouth. ity of tablet 20:27: [address] lactobacill 2019-07 Yes 1{capsu Take 1 U nivers us 2-07 le} capsule by ity of rhamnosus, 20:27: mouth. [place] GG, [address] [place] [id number] billion Branch cell capsule lamoTRIgine 2019-07 Yes 50mg Take 50 mg Univers 25 mg 2-07 by mouth. ity of tablet 20:27: [address] Branch levothyroxi 2019-07 Yes 125ug Take 125 U nivers ne 125 mcg 2-07 mcg by ity of tablet 20:27: mouth. [address] multivitami 2019-07 Yes 1{capsu Take 1 U nivers n capsule 2-07 le} capsule by ity of 20:27: mouth. [address] omega-3s-dh 2019-07 Yes Take by Uni vers a-epa-fish 2-07 mouth. ity of oil 120 20:27: [place] mg-180 mg- Medical 60 mg-1,200 Branch mg CpDR potassium 2019-07 Yes 10meq Take 10 Univ ers chloride 10 2-07 mEq by ity of mEq CR 20:27: mouth. [place] capsule Medical Branch Biotin 2019-07 Yes Take by Univers 2,500 mcg 2-07 mouth. ity of Cap 20:27: [address] Branch triamterene 2019-07 Yes 1{capsu Take 1 U nivers -hydrochlor 2-07 le} capsule by it y of othiazide 20:27: mouth. [place] 37.5-25 mg 36 Medical per capsule Branch b complex 2019-07 Yes 1{capsu Take 1 Uni vers vitamins 2-07 le} capsule by ity o f capsule 20:27: mouth. [address] Branch calcium 2019-07 Yes 1{tbl} Take 1 Univer s citrate-vit 2-07 tablet by ity of oliver D3 315 20:27: mouth. [place] mg-5 mcg 36 Medical (200 unit) Branch per tablet polycarboph 2019-07 Yes 625mg Take 625 U nivers il 625 mg 2-07 mg by ity of tablet 20:27: mouth. [address] Branch gabapentin 2019-07 Yes 300mg Take 300 Un landen 300 mg 2-07 mg by ity of capsule 20:27: mouth. [address] Branch hydrOXYzine 2019-07 Yes 50mg Take 50 mg Univers 25 mg 2-07 by mouth. ity of tablet 20:27: [address] Branch lactobacill 2019-07 Yes 1{capsu Take 1 U nivers us 2-07 le} capsule by ity of rhamnosus, 20:27: mouth. [place] GG, [address] [place] [id number] billion Branch cell capsule lamoTRIgine 2019-07 Yes 50mg Take 50 mg Univers 25 mg 2-07 by mouth. ity of tablet 20:27: [address] Branch levothyroxi 2019-07 Yes 125ug Take 125 U nivers ne 125 mcg 2-07 mcg by ity of tablet 20:27: mouth. [address] Branch multivitami 2019-07 Yes 1{capsu Take 1 U nivers n capsule 2-07 le} capsule by ity of 20:27: mouth. [address] Branch omega-3s-dh 2019-07 Yes Take by Uni vers a-epa-fish 2-07 mouth. ity of oil 120 20:27: [place] mg-180 mg- 36 Medical 60 mg-1,200 Branch mg CpDR potassium 2019-07 Yes 10meq Take 10 Univ ers chloride 10 2-07 mEq by ity of mEq CR 20:27: mouth. [place] capsule Medical Branch triamterene 2019-07 Yes 1{capsu Take 1 U nivers -hydrochlor 2-07 le} capsule by it y of othiazide 20:27: mouth. [place] 37.5-25 mg Medical per capsule Branch b complex 2019-07 Yes 1{capsu Take 1 Uni vers vitamins 2-07 le} capsule by ity o f capsule 20:27: mouth. [address] Branch MAGNESIUM 2019-07 Yes Take by Unive rs GLYCINATE 2-07 mouth. ity of ORAL 20:27: [address] Branch TURMERIC 2019-07 Yes Take by Univer s ORAL 2-07 mouth. ity of 20:27: [address] Branch ascorbic 2019-07 Yes 500mg Take 500 Univ ers acid, 2-07 mg by ity of vitamin C, 20:27: mouth. [place] 500 mg Medical tablet Branch atorvastati 2019-07 Yes 20mg Take 20 mg Univers n 20 mg 2-07 by mouth. ity of tablet 20:27: [address] Branch baclofen 10 2019-07 Yes 10mg Take 10 mg Univers mg tablet 2-07 by mouth. ity o f 20:27: [address] Biotin 2019-07 Yes Take by Univers 2,500 mcg 2-07 mouth. ity of Cap 20:27: [address] Branch calcium 2019-07 Yes 1{tbl} Take 1 Univer s citrate-vit 2-07 tablet by ity of oliver D3 315 20:27: [place] mg-5 mcg Medical (200 unit) Branch per tablet polycarboph 2019-07 Yes 625mg Take 625 U nivers [place] 625 mg 2-07 mg by ity of tablet 20:27: mouth. [place] [id number] Medical Branch gabapentin 2019-07 Yes 300mg Take 300 Un landen 300 mg 2-07 mg by ity of capsule 20:27: mouth. [address] Branch hydrOXYzine 2019-07 Yes 50mg Take 50 mg Univers 25 mg 2-07 by mouth. ity of tablet 20:27: [address] lactobacill 2019-07 Yes 1{capsu Take 1 U nivers us 2-07 le} capsule by ity of rhamnosus, 20:27: mouth. [place] GG, 10 Medical billion Branch cell capsule lamoTRIgine 2019-07 Yes 50mg Take 50 mg Univers 25 mg 2-07 by mouth. ity of tablet 20:27: [address] Branch levothyroxi 2019- Yes 125ug Take 125 U nivers ne 125 mcg 2-07 mcg by ity of tablet 20:27: mouth. [address] Branch multivitami 2019- Yes 1{capsu Take 1 U nivers n capsule 2-07 le} capsule by ity of 20:27: mouth. [address] Branch omega-3s-dh 2019-07 Yes Take by Uni vers a-epa-fish 2-07 mouth. ity of oil 120 20:27: [place] mg-180 mg- [address] [place] [address] 60 mg-1,200 [place] mg CpDR potassium 2019-07 Yes 10meq Take 10 Univ ers chloride 10 2-07 mEq by ity of mEq CR 20:27: mouth. [address] Branch Turmeric 2019-07 Yes Take by [facility] 500 MG CAPS 2-07 mouth. Colleg e 00:00: of 00 Medicin e Turmeric 2019-07 Yes Take by [facility] 500 MG CAPS 2-07 mouth. Colleg e 00:00: of 00 Medicin e Turmeric 2019-07 Yes Take by [facility] 500 MG CAPS 2-07 mouth. Colleg e 00:00: of 00 Medicin e Turmeric 2019- Yes Take by [facility] 500 MG CAPS 2-07 mouth. Colleg e 00:00: of 00 Medicin e Turmeric 2019-07 Yes Take by [facility] 500 MG CAPS 2-07 mouth. Colleg e 00:00: of 00 Medicin e Turmeric 2019- Yes Take by [facility] 500 MG CAPS 2-07 mouth. Colleg e 00:00: of 00 Medicin e gabapentin 2019- Yes TK 1 C PO Un landen 100 mg 2-04 IN THE ity of capsule 00:00: MORNING [place] 00 AND AT [facility] gabapentin 2020- Yes TK 1 C PO Un landen 100 mg 2-04 IN THE ity of capsule 00:00: MORNING [place] 00 AND AT [facility] gabapentin 2019- Yes TK 1 C PO Un landen 100 mg 2-04 IN THE ity of capsule 00:00: MORNING [place] 00 AND AT [facility] gabapentin 2019-07 Yes TK 1 C PO Un landen 100 mg 2-04 IN THE ity of capsule 00:00: MORNING AND AT [facility] gabapentin 2019-07 Yes TK 1 C PO Un landen 100 mg 2-04 IN THE ity of capsule 00:00: MORNING AND AT [facility] gabapentin 2019-07 Yes TK 1 C PO Un landen 100 mg 2-04 IN THE ity of capsule 00:00: MORNING AND AT [facility] gabapentin 2019-07 Yes = 1 cap, Mem oria 300 MG Oral 2-03 PO, l Capsule 20:46: Bedtime, # Herm beto 00 30 cap, 6 Refill(s), Pharmacy: [facility] ST[facility] #[id number], 157.48, cm, 06/21/20 13:55:00 [employer], Height, 62.727, kg, 06/21/20 14:10:00 [employer], Weight baclofen 10 2019-07 Yes = 1 tab, Me moria mg oral 2-03 PO, l tablet 20:46: Bedtime, # Bing nn 00 30 tab, 4 Refill(s), Pharmacy: [facility] STORE #[id number], 157.48, cm, 06/21/20 13:55:00 [employer], Height, 62.727, kg, 06/21/20 14:10:00 [employer], Weight spironolact 2019-07 Yes TK 1 T PO U nivers one 25 mg 2-03 BID ity of tablet 00:00: [facility] spironolact 2020- Yes TK 1 T PO U nivers one 25 mg 2-03 BID ity of tablet 00:00: [facility] spironolact 2019- Yes TK 1 T PO U nivers one 25 mg 2-03 BID ity of tablet 00:00: [facility] spironolact 2020- Yes TK 1 T PO U nivers one 25 mg 2-03 BID ity of tablet 00:00: [facility] spironolact 2019-07 Yes TK 1 T PO U nivers one 25 mg 2-03 BID ity of tablet 00:00: [place] [facility] spironolact 2020- Yes TK 1 T PO U nivers one 25 mg 2-03 BID ity of tablet 00:00: [place] [facility] baclofen 10 2019-07 Yes TK 1 T PO U nivers mg tablet 1-24 BID ity of 00:00: [place] [facility] baclofen 10 2019-07 Yes TK 1 T PO U nivers mg tablet 1-24 BID ity of 00:00: [place] [facility] baclofen 10 2019-07 Yes TK 1 T PO U nivers mg tablet 1-24 BID ity of 00:00: [place] [facility] baclofen 10 2019-07 Yes TK 1 T PO U nivers mg tablet 1-24 BID ity of 00:00: [place] [facility] baclofen 10 2019-07 Yes TK 1 T PO U nivers mg tablet 1-24 BID ity of 00:00: [place] [facility] baclofen 10 2019-07 Yes TK 1 T PO U nivers mg tablet 1-24 BID ity of 00:00: [place] [facility] famotidine 2019-07 Yes TK 1 T PO Un landen 40 mg 1-23 D HS ity of tablet 00:00: [place] [facility] famotidine 2019-07 Yes TK 1 T PO Un landen 40 mg 1-23 D HS ity of tablet 00:00: [place] [facility] famotidine 2019-07 Yes TK 1 T PO Un landen 40 mg 1-23 D HS ity of tablet 00:00: [place] [facility] famotidine 2019-07 Yes TK 1 T PO Un landen 40 mg 1-23 D HS ity of tablet 00:00: [place] [facility] famotidine 2019-07 Yes TK 1 T PO Un landen 40 mg 1-23 D HS ity of tablet 00:00: [place] [facility] famotidine 2019-07 Yes TK 1 T PO Un landen 40 mg 1-23 D HS ity of tablet 00:00: [place] [facility] levothyroxi 2019-07 Yes 125ug Take 125 B [place] ne 1-19 mcg by [place] (SYNTHROID) 14:29: mouth of 125 MCG 07 daily. Medicin tablet e gabapentin 2019-07 Yes 500mg Take 500 Ba ylor (NEURONTIN) 1-19 mg by [place] 300 MG 14:29: mouth of capsule 07 daily. Medicin e atorvastati 2019-07 Yes 20mg Take 20 mg [facility] n (LIPITOR) 1-19 by mouth Shanel ege 20 MG 14:29: daily. of tablet 07 Medicin e baclofen 2019-07 Yes 10mg Take 10 mg [place] (LIORESAL) 08-07 by mouth Colle ge 10 MG 14:29: two times of tablet 07 daily. Medicin e Multiple 2019-07 Yes Take by [facility] Vitamins-Mi 08-07 [facility] nerals 14:29: daily. of (MULTIVITAM 07 Medicin IN ADULT e OR) B Complex 2019-07 Yes Take by [facility] Vitamins (B 08-07 [facility] COMPLEX 1 14:29: daily. of OR) 07 Medicin e Calcium 2019-07 Yes Take by [facility] Citrate-Vit 08-07 mouth [facility] Col lege oliver D 14:29: times of (CALCIUM 07 daily. Medicin CITRATE + D e OR) [place]-3 2019-07 Yes Take by [facility] Fatty Acids 08-07 [facility] (FISH OIL) 14:29: daily. of 1200 MG 07 Medicin CAPS e Lactobacill 2019-07 Yes Take by [place] us 08-07 [facility] (PROBIOTIC 14:29: daily. of ACIDOPHILUS 07 Medicin OR) e BIOTIN 5000 2019-07 Yes Take by [place] OR 08-07 [facility] 14:29: daily. of 07 Medicin e L-THEANINE 2019-07 Yes 200mg Take 200 Ba ylor OR 1-19 mg by [place] 14:29: mouth of 07 daily. Medicin e Ascorbic 2019-07 Yes Take by [facility] Acid 08-07 [facility] (VITAMIN C) 14:29: daily. of 500 MG CAPS 07 Medicin e Magnesium 2019-07 Yes Take by [place] 400 MG TABS 08-07 mouth. [place] e 14:29: of 07 Medicin e Lidocaine 2019-07 Yes Apply [facility] 0.5 % GEL 08-07 topically. Shanel ege 14:29: of 07 Medicin e levothyroxi 2019-07 Yes 125ug Take 125 B aylor ne -19 mcg by [place] (SYNTHROID) 14:29: mouth of 125 MCG 07 daily. Medicin tablet e gabapentin 2019-07 Yes 500mg Take 500 Ba ylor (NEURONTIN) 1-19 mg by [place] 300 MG 14:29: mouth of capsule 07 daily. Medicin e atorvastati 2019-07 Yes 20mg Take 20 mg [facility] n (LIPITOR) 08-07 by mouth Shanel ege 20 MG 14:29: daily. of tablet Medicin e baclofen 2019-07 Yes 10mg Take 10 mg [place] (LIORESAL) 08-07 by mouth Colle ge 10 MG 14:29: two times of tablet 07 daily. Medicin e Multiple 2020- Yes Take by [facility] Vitamins-Mi 08-07 [facility] nerals 14:29: daily. of (MULTIVITAM 07 Medicin IN ADULT e OR) B Complex 2019-07 Yes Take by [facility] Vitamins (B 08-07 [facility] COMPLEX 1 14:29: daily. of OR) 07 Medicin e Calcium 2019-07 Yes Take by [facility] Citrate-Vit 08-07 mouth two Col lege oliver D 14:29: times of (CALCIUM 07 daily. Medicin CITRATE + D e OR) [place]-3 2019-07 Yes Take by [facility] Fatty Acids 08-07 [facility] (FISH OIL) 14:29: daily. of 1200 MG 07 Medicin CAPS e Lactobacill 2019-07 Yes Take by [place] us 08-07 [facility] (PROBIOTIC 14:29: daily. of ACIDOPHILUS 07 Medicin OR) e BIOTIN 5000 2019-07 Yes Take by [place] OR 08-07 [facility] 14:29: daily. of 07 Medicin e L-THEANINE 2019-07 Yes 200mg Take 200 Ba ylor OR 1-19 mg by College 14:29: mouth of 07 daily. Medicin e Ascorbic 2019-07 Yes Take by [facility] Acid 08-07 [facility] (VITAMIN C) 14:29: daily. of 500 MG CAPS 07 Medicin e Magnesium 2019-07 Yes Take by [place] 400 MG TABS 08-07 mouth. [place] e 14:29: of 07 Medicin e Lidocaine 2019-07 Yes Apply [facility] 0.5 % GEL 08-07 topically. Shanel ege 14:29: of 07 Medicin e Turmeric 2019-07 2020- No Take by [facility] Curcumin 08-07 mouth. College 500 MG CAPS 14:29: 00:00 of 06 :00 Medicin e Calcium 2019- 2020- No Take by [facility] Polycarboph -06-07 mouth 3 Shanel ege il 14:26: 00:00 times of (FIBER-CAPS 48 :00 daily. Medici n OR) e Calcium 2019-07 2020- No 625mg Take 625 [place] [facility] Polycarboph -19 11-19 mg by Colleg e il (FIBER) 14:26: 00:00 mouth. of 625 MG TABS 38 :00 Medicin e ascorbic 2019-07 2020- No 500mg Take 500 [place] acid 500 MG -19 11-19 mg [...] 00:00: [place] cream Medical Branch lidocaine-p 2019-07 2020- No [place] rilocaine 1-14 -19 [facility]) 00:00: 00:00 of 2.5-2.5 % 00 :00 Medicin cream e risperiDONE 2019-07 Yes TK 1 T PO U nivers 0.25 mg 1-11 BID ity of tablet 00:00: Medical Branch LORazepam 2019-07 Yes TK 1 T PO Uni vers 0.5 mg 1-11 TID PRN ity of tablet 00:00: FOR ANXIETY Medical Branch risperiDONE 2019-07 Yes TK 1 T PO U nivers 0.25 mg 1-11 BID ity of tablet 00:00: Medical Branch LORazepam 2019-07 Yes TK 1 T PO Uni vers 0.5 mg 1-11 TID PRN ity of tablet 00:00: FOR ANXIETY Medical Branch risperiDONE 2019-07 Yes TK 1 T PO U nivers 0.25 mg 1-11 BID ity of tablet 00:00: [place] [facility] LORazepam 2020- Yes TK 1 T PO Uni vers 0.5 mg 1-11 TID PRN ity of tablet 00:00: FOR [place] ANXIETY Medical Branch risperiDONE 2019- Yes TK 1 T PO U nivers 0.25 mg 1-11 BID ity of tablet 00:00: [place] [facility] LORazepam 2019-07 Yes TK 1 T PO Uni vers 0.5 mg 1-11 TID PRN ity of tablet 00:00: FOR [place] ANXIETY Medical Branch risperiDONE 2019- Yes TK 1 T PO U nivers 0.25 mg 1-11 BID ity of tablet 00:00: [place] [address] Medical Branch LORazepam 2019-07 Yes TK 1 T PO Uni vers 0.5 mg 1-11 TID PRN ity of tablet 00:00: FOR [place] ANXIETY Medical Branch risperiDONE 2019-07 Yes TK 1 T PO U nivers 0.25 mg 1-11 BID ity of tablet 00:00: [place] [facility] Branch LORazepam 2019-07 Yes TK 1 T PO Uni vers 0.5 mg 1-11 TID PRN ity of tablet 00:00: FOR [place] ANXIETY Medical Branch atorvastati 2019-07 Yes TK 1 T PO U nivers n 20 mg 1-03 D HS ity of tablet 00:00: [place] [facility] atorvastati 2019- Yes TK 1 T PO U nivers n 20 mg 1-03 D HS ity of tablet 00:00: [place] [address] Medical Branch atorvastati 2019- Yes TK 1 T PO U nivers n 20 mg 1-03 D HS ity of tablet 00:00: [place] [facility] atorvastati 2019- Yes TK 1 T PO U nivers n 20 mg 1-03 D HS ity of tablet 00:00: [place] [address] Medical Branch atorvastati 2019- Yes TK 1 T PO U nivers n 20 mg 1-03 D HS ity of tablet 00:00: [place] [address] Medical Branch atorvastati 2019- Yes TK 1 T PO U nivers n 20 mg 1-03 D HS ity of tablet 00:00: [place] [address] Medical Branch ondansetron 2020- Yes [id number] 4mg Take 1 Tab [facility] (ZOFRAN) 4 1-02 by mouth Colle ge MG tablet 00:00: every 8 of 00 hours as Medicin needed for e Nausea. nitrofurant 2019-07 Yes TK ONE C Ba ylor oin 1-02 PO BID College (MACRODANTI 00:00: of N) 100 MG 00 Medicin capsule e ondansetron 2019-07 Yes [id number] 4mg Take 1 Tab [facility] (ZOFRAN) 4 1-02 by mouth Colle ge MG tablet 00:00: every 8 of 00 hours as Medicin needed for e Nausea. ondansetron 2019-07 Yes [id number] 4mg Take 1 Tab [facility] (ZOFRAN) 4 1-02 by mouth Colle ge MG tablet 00:00: every 8 of 00 hours as Medicin needed for e Nausea. ondansetron 2019-07 Yes [id number] 4mg Take 1 Tab [facility] (ZOFRAN) 4 -02 by mouth Colle ge MG tablet 00:00: every 8 of 00 hours as Medicin needed for e Nausea. nitrofurant 2019-07 Yes TK ONE C Un landen oin 100 mg 1-02 PO BID ity of capsule 00:00: [place] [facility] ondansetron 2019-07 Yes TK 1 T PO U nivers 4 mg tablet 1-02 Q 8 H PRF ity of 00:00: NAUSEA [facility] nitrofurant 2019-07 Yes TK ONE C Un landen oin 100 mg 1-02 PO BID ity of capsule 00:00: [place] [facility] ondansetron 2019-07 Yes TK 1 T PO U nivers 4 mg tablet 1-02 Q 8 H PRF ity of 00:00: NAUSEA [facility] nitrofurant 2019-07 Yes TK ONE C Un landen oin 100 mg 1-02 PO BID ity of capsule 00:00: [place] [facility] ondansetron 2019-07 Yes TK 1 T PO U nivers 4 mg tablet 1-02 Q 8 H PRF ity of 00:00: NAUSEA [facility] nitrofurant 2019-07 Yes TK ONE C Un landen oin 100 mg 1-02 PO BID ity of capsule 00:00: [place] [facility] ondansetron 2019-07 Yes TK 1 T PO U nivers 4 mg tablet 1-02 Q 8 H PRF ity of 00:00: NAUSEA [facility] nitrofurant 2019-07 Yes TK ONE C Un landen oin 100 mg -02 PO BID ity of capsule 00:00: [place] 00 Medical Branch ondansetron 2019-07 Yes TK 1 T PO U nivers 4 mg tablet -02 Q 8 H PRF ity of 00:00: NAUSEA Medical Branch nitrofurant 2019-07 Yes TK ONE C Un landen oin 100 mg -02 PO BID ity of capsule 00:00: Medical Branch ondansetron 2019-07 Yes TK 1 T PO U nivers 4 mg tablet -02 Q 8 H PRF ity of 00:00: NAUSEA Medical Branch ondansetron 2019-07- No [id number] 4mg Take 1 Tab [facility] (ZOFRAN) 4 07-21 03-18 by mouth Shanel ege MG tablet 00:00: 00:00 every 8 of 00 :00 hours as Medicin needed for e Nausea. nitrofurant 2019-07 No TK ONE C B aylor oin - 01-08 PO BID College (MACRODANTI 00:00: 00:00 of [...] FOR 7 [place] 00 DAYS. Medical Branch triamterene 2019-07 2020- No 1{capsu Take 1 Cap [facility] -hydrochlor 0-27 10-27 le} by mouth Col lege othiazide 19:49: 00:00 every of (DYAZIDE) 07 :00 morning. Medici n 37.5-25 MG e per capsule potassium 2019-07- No 10meq Take 10 [place] chloride 0-27 10-27 mEq by College (MICRO-K) 19:49: 00:00 mouth of 10 MEQ 07 :00 daily. Medicin capsule e lamoTRIgine 2019-07- No 50mg Take 50 mg [facility] 50 MG TBDP 0-27 10-27 by mouth Shanel ege 19:49: 00:00 two times of 07 :00 daily. Medicin e ciprofloxac 2019-07 Yes TK 1 T PO U nivers in HCl 250 0-25 BID ity of mg tablet 00:00: [address] ciprofloxac 2019-07 Yes TK 1 T PO U nivers in HCl 250 0-25 BID ity of mg tablet 00:00: [address] ciprofloxac 2019-07 Yes TK 1 T PO U nivers in HCl 250 0-25 BID ity of mg tablet 00:00: [address] ciprofloxac 2019-07 Yes TK 1 T PO U nivers in HCl 250 0-25 BID ity of mg tablet 00:00: [address] ciprofloxac 2019-07 Yes TK 1 T PO U nivers in HCl 250 0-25 BID ity of mg tablet 00:00: [address] ciprofloxac 2019-07 Yes TK 1 T PO U nivers in HCl 250 0-25 BID ity of mg tablet 00:00: [address] losartan 25 2019-07 Yes 25 mg = [...] rmann 00 90 tab, 1 Refill(s) spironolact 2020-1 Yes 1{tbl} Take 1 Ba [...] spironolact 2020-1 Yes 1{tbl} Take 1 Tab [facility] one 0-21 by mouth [place] (ALDACTONE) 00:00: daily. of 25 MG 00 Medicin tablet e spironolact 2020-1 Yes 1{tbl} Take 1 Ba ylor one 0-21 Tablet by [place] (ALDACTONE) 00:00: mouth. 2 of 25 MG [...] s mg tablet 0-14 ity of 00:00: [address] LORazepam 1 2020- Yes Univer s mg tablet 0-14 ity of 00:00: [address] Branch LORazepam 1 2020- Yes Univer s mg tablet 0-14 ity of 00:00: [place] [facility] LORazepam 1 2019-07 Yes Univer s mg tablet 0-14 ity of 00:00: [place] [facility] LORazepam 1 2019-07 Yes Univer s mg tablet 0-14 ity of 00:00: [place] [facility] LORazepam 1 2019-07 Yes Univer s mg tablet 0-14 ity of 00:00: [place] [facility] lorazepam 2019-07 2020- No [facility] (ATIVAN) 1 0-14 11-19 College MG tablet 00:00: 00:00 of 00 :00 Medicin e levothyroxi 2019-07 Yes TK 1 T PO U nivers ne 112 mcg 0-11 D ity of tablet 00:00: [place] [facility] levothyroxi 2019-07 Yes TK 1 T PO U nivers ne 112 mcg 0-11 D ity of tablet 00:00: [place] [facility] levothyroxi 2019-07 Yes TK 1 T PO U nivers ne 112 mcg 0-11 D ity of tablet 00:00: [place] [facility] levothyroxi 2019-07 Yes TK 1 T PO U nivers ne 112 mcg 0-11 D ity of tablet 00:00: [place] [facility] levothyroxi 2019-07 Yes TK 1 T PO U nivers ne 112 mcg 0-11 D ity of tablet 00:00: [place] [facility] levothyroxi 2019-07 Yes TK 1 T PO U nivers ne 112 mcg 0-11 D ity of tablet 00:00: [place] [facility] acetaminoph 2019-07 2020- No 1{tbl} Take 1 Tab [facility] en-codeine 0-09 10-09 by mouth Shanel ege (TYLENOL 19:38: 00:00 every 8 of #3) 300-30 58 :00 hours. Medicin MG per e tablet triamterene 2019-07 Yes 1{capsu Take 1 Cap [facility] -hydrochlor 0-09 le} by mouth Shanel ege othiazide 19:38: every of (DYAZIDE) 49 morning. Medici n 37.5-25 MG e per capsule potassium 2019- Yes 10meq Take 10 [place] chloride 0-09 mEq by [place] (MICRO-K) 19:38: mouth of 10 MEQ 49 daily. Medicin capsule e levothyroxi 2019-07 Yes 125ug Take 125 B [place] ne 0-09 mcg by [facility] (SYNTHROID) 19:38: mouth of 125 MCG 49 daily. Medicin tablet e gabapentin 2019-07 Yes 500mg Take 500 Ba ylor (NEURONTIN) 0-09 mg by [place] 300 MG 19:38: mouth of capsule 49 daily. Medicin e atorvastati 2019-07 Yes 20mg Take 20 mg [facility] n (LIPITOR) 0-09 by mouth Shanel ege 20 MG 19:38: daily. of tablet 49 Medicin e lamoTRIgine 2019-07 Yes 50mg Take 50 mg [facility] 50 MG TBDP 0-09 by mouth Colle ge 19:38: two times of 49 daily. Medicin e baclofen 2019-07 Yes 10mg Take 10 mg [place] (LIORESAL) 0-09 by mouth Colle ge 10 MG 19:38: two times of tablet 49 daily. Medicin e Multiple 2019-07 Yes Take by [facility] Vitamins-Mi 0-09 mouth [place] nerals 19:38: daily. of (MULTIVITAM 49 Medicin IN ADULT e OR) B Complex 2019-07 Yes Take by [facility] r Vitamins (B 0-09 mouth [place] COMPLEX 1 19:38: daily. of OR) 49 Medicin e Calcium 2019-07 Yes Take by [facility] Citrate-Vit 0-09 mouth two Col lege oliver D 19:38: times of (CALCIUM 49 daily. Medicin CITRATE + D e OR) [place]-3 2019-07 Yes Take by [facility] Fatty Acids 0-09 [facility] (FISH OIL) 19:38: daily. of 1200 MG 49 Medicin CAPS e Lactobacill 2019-07 Yes Take by [place] us 0-09 mouth [place] (PROBIOTIC 19:38: daily. of ACIDOPHILUS 49 Medicin OR) e Calcium 2019-07 Yes Take by [facility] Polycarboph 0-09 mouth 3 Colle ge il 19:38: times of (FIBER-CAPS 49 daily. Medici n OR) e BIOTIN 5000 2019-07 Yes Take by [facility] OR 0-09 mouth [place] 19:38: daily. of 49 Medicin e L-THEANINE 2019-07 Yes 200mg Take 200 Ba ylor OR 0-09 mg by College 19:38: mouth of 49 daily. Medicin e Ascorbic 2019-07 Yes Take by [facility] Acid 0-09 mouth College (VITAMIN C) 19:38: daily. of 500 MG CAPS 49 Medicin e Turmeric 2019-07 Yes Take by [facility] Curcumin 0-09 mouth. [place] 500 MG CAPS 19:38: of 49 Medicin e Magnesium 2019-07 Yes Take by [facility] r 400 MG TABS 0-09 mouth. Colleg e 19:38: of 49 Medicin e Lidocaine 2019-07 Yes Apply [facility] 0.5 % GEL 0-09 topically. Shanel ege 19:38: of 49 Medicin e levothyroxi 2019-07 Yes 125ug Take 125 B [place] ne 0-09 mcg by [place] (SYNTHROID) 19:38: mouth of 125 MCG 49 daily. Medicin tablet e gabapentin 2019-07 Yes 500mg Take 500 Ba ylor (NEURONTIN) 0-09 mg by [place] 300 MG 19:38: mouth of capsule 49 daily. Medicin e atorvastati 2019-07 Yes 20mg Take 20 mg [facility] n (LIPITOR) 0-09 by mouth Shanel ege 20 MG 19:38: daily. of tablet 49 Medicin e baclofen 2019-07 Yes 10mg Take 10 mg [place] (LIORESAL) 0-09 by mouth Colle ge 10 MG 19:38: two times of tablet 49 daily. Medicin e Multiple 2019-07 Yes Take by [facility] Vitamins-Mi 0-09 mouth [place] nerals 19:38: daily. of (MULTIVITAM 49 Medicin IN ADULT e OR) B Complex 2019-07 Yes Take by [facility] Vitamins (B 0-09 mouth [place] COMPLEX 1 19:38: daily. of OR) 49 Medicin e Calcium 2019-07 Yes Take by [facility] Citrate-Vit 0-09 mouth two Col lege oliver D 19:38: times of (CALCIUM 49 daily. Medicin CITRATE + D e OR) [place]-3 2019-07 Yes Take by [facility] Fatty Acids 0-09 mouth [place] (FISH OIL) 19:38: daily. of 1200 MG 49 Medicin CAPS e Lactobacill 2019-07 Yes Take by [place] us 0-09 mouth College (PROBIOTIC 19:38: daily. of ACIDOPHILUS 49 Medicin OR) e Calcium 2019-07 Yes Take by [facility] Polycarboph 0-09 mouth 3 Colle ge il 19:38: times of (FIBER-CAPS 49 daily. Medici n OR) e BIOTIN 5000 2019-07 Yes Take by [place] OR 0-09 mouth [place] 19:38: daily. of 49 Medicin e L-THEANINE 2019-07 Yes 200mg Take 200 Ba ylor OR 0-09 mg by [place] 19:38: mouth of 49 daily. Medicin e Ascorbic 2019-07 Yes Take by [facility] Acid 0-09 mouth [place] (VITAMIN C) 19:38: daily. of 500 MG CAPS 49 Medicin e Turmeric 2019-07 Yes Take by [facility] Curcumin 0-09 mouth. [place] 500 MG CAPS 19:38: of 49 Medicin e Magnesium 2019-07 Yes Take by [facility] r 400 MG TABS 0-09 mouth. Colleg e 19:38: of 49 Medicin e Lidocaine 2019-07 Yes Apply [facility] 0.5 % GEL 0-09 topically. Shanel nixone 19:38: of 49 Medicin e potassium 2019-07 Yes 20meq Take 1 Tab B [place] chloride SA 0-09 by mouth Shanel maureen (K-DUR, 00:00: two times of KLOR-CON 00 daily. Medicin M20) 20 MEQ e tablet gabapentin 2019-07 Yes TK 1 C PO Un [place]en 300 mg 0-06 HS ity of capsule 00:00: [address] gabapentin 2019- Yes TK 1 C PO Un landen 300 mg 0-06 HS ity of capsule 00:00: [address] gabapentin 2019- Yes TK 1 C PO Un landen 300 mg 0-06 HS ity of capsule 00:00: [address] gabapentin 2019- Yes TK 1 C PO Un landen 300 mg 0-06 HS ity of capsule 00:00: [address] [address] gabapentin 2020- Yes TK 1 C PO Un [facility] 300 mg 0-06 HS ity of capsule 00:00: [address] gabapentin 2019- Yes TK 1 C PO Un [facility] 300 mg 0-06 HS ity of capsule 00:00: [address] losartan 2019- Yes [facility] (COZAAR) 25 0-05 College MG tablet 00:00: of 00 Medicin e losartan 2019-07 Yes [facility] (COZAAR) 25 0-05 College MG tablet 00:00: of 00 Medicin e hydrOXYzine 2019-07 Yes Univer s 25 mg 0-05 ity of capsule 00:00: [address] lamoTRIgine 2019-07 Yes Univer s 25 mg 0-05 ity of tablet 00:00: [place] [facility] losartan 25 2019-07 Yes Univer s mg tablet 0-05 ity of 00:00: [place] [facility] hydrOXYzine 2019-07 Yes Univer s 25 mg 0-05 ity of capsule 00:00: [place] [facility] lamoTRIgine 2019-07 Yes Univer s 25 mg 0-05 ity of tablet 00:00: [place] [facility] losartan 25 2019-07 Yes Univer s mg tablet 0-05 ity of 00:00: [place] [facility] hydrOXYzine 2019-07 Yes Univer s 25 mg 0-05 ity of capsule 00:00: [place] [facility] lamoTRIgine 2019-07 Yes Univer s 25 mg 0-05 ity of tablet 00:00: [place] [address] [facility] losartan 25 2019-07 Yes Univer s mg tablet 0-05 ity of 00:00: [place] [address] [facility] hydrOXYzine 2019-07 Yes Univer s 25 mg 0-05 ity of capsule 00:00: [place] [facility] lamoTRIgine 2019-07 Yes Univer s 25 mg 0-05 ity of tablet 00:00: [place] [address] [facility] losartan 25 2019-07 Yes Univer s mg tablet 0-05 ity of 00:00: [place] [facility] hydrOXYzine 2019-07 Yes Univer s 25 mg 0-05 ity of capsule 00:00: [place] [facility] lamoTRIgine 2019-07 Yes Univer s 25 mg 0-05 ity of tablet 00:00: [place] [address] [facility] losartan 25 2019-07 Yes Univer s mg tablet 0-05 ity of 00:00: [place] [facility] hydrOXYzine 2019-07 Yes Univer s 25 mg 0-05 ity of capsule 00:00: [place] [address] [facility] lamoTRIgine 2019-07 Yes Univer s 25 mg 0-05 ity of tablet 00:00: [place] [address] [facility] losartan 25 2019-07 Yes Univer s mg tablet 0-05 ity of 00:00: [place] [facility] losartan 2019-2020- No [facility] (COZAAR) 25 0-05 01-08 College MG tablet [...] capsule Branch losartan 0 2020- No DAILY [facility] (COZAAR) 25 9-11 11-19 College MG tablet 00:00: 00:00 of 00 :00 Medicin e risperdone Yes 1{tbl} Take 1 Tab [facility] (RISPERDAL) 03-26 by mouth [facility] 0.25 MG 00:00: two times of tablet 00 daily. Medicin e risperdone Yes 1{tbl} Take 1 Tab [facility] (RISPERDAL) 03-26 by mouth Shanel e[facility] 0.25 MG 00:00: two times of tablet 00 daily. Medicin e risperdone 2019-2020- No 1{tbl} Take 1 Tab [facility] (RISPERDAL) 907 01-08 by mouth [facility] 0.25 MG 00:00: 00:00 two times of tablet 00 :00 daily. Medicin e triamterene Yes 1{capsu Take 1 Cap [facility] -hydrochlor 8-11 le} by mouth Shanel ege othiazide 16:27: every of (DYAZIDE) 09 morning. Medici n 37.5-25 MG e per capsule potassium Yes 10meq Take 10 [facility] chloride 8-11 mEq by [place] (MICRO-K) 16:27: mouth of 10 MEQ 09 daily. Medicin capsule e levothyroxi 2020-0 Yes 125ug Take 125 [facility] ne 8-11 mcg by [place] (SYNTHROID) 16:27: mouth of 125 MCG 09 daily. Medicin tablet e gabapentin 2020-0 Yes 500mg Take 500 [facility] (NEURONTIN) 8-11 mg by [place] 300 MG 16:27: mouth of capsule 09 daily. Medicin e lamoTRIgine 2020-0 Yes 50mg Take 50 mg [facility] 50 MG TBDP - by mouth Colle ge 16:27: two times of 09 daily. Medicin e baclofen 2020-0 Yes 10mg Take 10 mg [place] (LIORESAL) 02-27 by mouth Colle [facility] 10 MG 16:27: two times of tablet 09 daily. Medicin e Multiple 2020-0 Yes Take by [facility] Vitamins-Mi - [facility] nerals 16:27: daily. of (MULTIVITAM 09 Medicin IN ADULT e OR) B Complex 2020-0 Yes Take by [facility] Vitamins (B 02-27 mouth [place] COMPLEX 1 16:27: daily. of OR) 09 Medicin e Calcium 2020-0 Yes Take by [facility] Citrate-Vit 02-27 mouth two Col [facility]ge oliver D 16:27: times of (CALCIUM 09 daily. Medicin CITRATE + D e OR) [place]-3 2020-0 Yes Take by [facility] Fatty Acids 02-27 [facility] (FISH OIL) 16:27: daily. of 1200 MG 09 Medicin CAPS e Lactobacill 2020-0 Yes Take by [place] us 02-27 mouth [place] (PROBIOTIC 16:27: daily. of ACIDOPHILUS 09 Medicin OR) e Calcium 2020-0 Yes Take by [facility] Polycarboph 02-27 mouth 3 Colle ge il 16:27: times of (FIBER-CAPS 09 daily. Medici n OR) e BIOTIN 5000 2020-0 Yes Take by [facility] OR - mouth [place] 16:27: daily. of 09 Medicin e L-THEANINE 2020-0 Yes 200mg Take 200 [facility] OR 8-11 mg by [facility] 16:27: mouth of 09 daily. Medicin e Turmeric 2020-0 Yes Take by [facility] Curcumin 8-11 mouth. College 500 MG CAPS 16:27: of 09 Medicin e Magnesium 2020-0 Yes Take by [facility] [facility] 400 MG TABS 02-27 mouth. Colleg e 16:27: of Medicin e Lidocaine 2020-0 Yes Apply [facility] 0.5 % GEL 02-27 topically. [facility] 16:27: of Medicin e atorvastati 2020-0 Yes 20mg Take 20 mg [facility] n (LIPITOR) 02-27 by mouth [facility] 20 MG 16:25: daily. of tablet 47 Medicin e Ascorbic 2020-0 Yes Take by [facility] Acid 02-27 mouth [place] (VITAMIN C) 16:25: daily. of 500 MG CAPS 47 Medicin e acetaminoph 2020-0 Yes 1{tbl} Take 1 Tab [facility] en-codeine 02-27 by mouth [facility] (TYLENOL 16:25: every 8 of #3) 300-30 47 hours. Medicin MG per e tablet levofloxaci 2020- No [id number] 500mg Take 1 Tab [facility] n 02-19 by [facility] (LEVAQUIN) 00:00: 04:59 daily for o f 500 MG 00 :00 3 days. 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 levofloxaci 2020- 2020- No [id number] 500mg Take 1 Tab [facility] n 02-19 by [facility] (LEVAQUIN) 00:00: 04:59 daily for o f 500 MG 00 :00 3 days. 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 levofloxaci 20200 2020- No [id number] 500mg Take 1 Tab [facility] n 02-19 by [facility] (LEVAQUIN) 00:00: 04:59 daily for o f 500 MG 00 :00 3 days. 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 levofloxaci 20200 2020- No [id number] 500mg Take 1 Tab [facility] n 02-19 by [facility] (LEVAQUIN) 00:00: 04:59 daily for o f [...] TK SS T PO [facility] (ATIVAN) 7- TID PRF College 0.5 MG 00:00: HIGH of tablet 00 ANXIETY Medicin e lorazepam 2020-0 Yes TK SS T PO [facility] (ATIVAN) 7- TID PRF [facility] 0.5 MG 00:00: HIGH of tablet 00 ANXIETY Medicin e lorazepam 2020-0 Yes TK SS T PO [facility] (ATIVAN) 7- TID PRF [facility] 0.5 MG 00:00: HIGH of tablet 00 ANXIETY Medicin e lorazepam 2020-0 Yes TK SS T PO [facility] (ATIVAN) 7- TID PRF [facility] 0.5 MG 00:00: HIGH of tablet 00 ANXIETY Medicin e lorazepam 2020-0 Yes TK SS T PO [facility] (ATIVAN) 7- TID PRF [facility] 0.5 MG 00:00: HIGH of tablet 00 ANXIETY Medicin e lorazepam 2020-0 Yes TK SS T PO [facility] (ATIVAN) 7- TID PRF [facility] 0.5 MG 00:00: HIGH of tablet 00 ANXIETY Medicin e lorazepam 2020-0 Yes TK SS T PO [facility] (ATIVAN) 7- TID PRF [facility] 0.5 MG 00:00: HIGH of tablet 00 ANXIETY Medicin e lorazepam 2020-0 Yes TK SS T PO [facility] (ATIVAN) 7- TID PRF [facility] 0.5 MG 00:00: HIGH [...] TK SS T PO [facility] (ATIVAN) 02-13-13 TID PRF College 0.5 MG 00:00: 00:00 HIGH of tablet 00 :00 ANXIETY Medicin e lorazepam 2020-0 2020- No TK SS T PO [facility] (ATIVAN) 02-1313 TID PRF College 0.5 MG 00:00: 00:00 [...] MCG 00 Medicin tablet e levothyroxi 2020-0 2020- No TK 1 T PO [facility] ne 01-30 01-08 D College (SYNTHROID) 00:00: 00:00 of 112 MCG 00 :00 Medicin tablet e mirtazapine 2020-0 Yes 15mg Take 1 Tab [facility] (REMERON) 7 by mouth Colleg e 15 MG 00:00: nightly. of tablet 00 Medicin e mirtazapine 2020-0 Yes 15mg Take 1 Tab [facility] (REMERON) 7 by mouth Colleg e 15 MG 00:00: nightly. of tablet 00 Medicin e mirtazapine 2020-0 2020- No 15mg Take 1 Tab [facility] (REMERON) 01-25 10- by mouth [facility]le ge 15 MG 00:00: 00:00 nightly. of tablet 00 :00 Medicin e triamcinolo 2020-0 2020- No [id number] [facility] ne 01-16 College acetonide 14:15: 14:02 of (KENALOG-40 00 :00 Medicin ) 40 mg/mL e 40 mg, bupivacaine (PF) (MARCAINE) 0.5 % 1 mL iohexol 2020-0 2020- No [id number] 1mL [facility] (OMNIPAQUE) 01-16 [place] 300 MG/ML 14:15: 14:02 of injection 1 00 :00 Medicin mL e iohexol 2020-0 2020- No [id number] 1mL 1 mL, [facility] (OMNIPAQUE) 01-16 Epidural, Co llege 300 MG/ML 14:15: 14:02 ONCE, 1 of injection 1 00 :00 dose, Tue Med icin mL 01/17/20 at e 0915 triamcinolo 2019-0 2020- No [id number] Epidural, [facility] ne 01-16 ONCE, 1 [place] acetonide 14:15: 14:02 dose, Tue of (KENALOG-40 00 :00 01/17/20 at [place] dicin ) 40 mg/mL 0915 e 40 mg, bupivacaine (PF) (MARCAINE) 0.5 % 1 mL triamterene 2020-0 Yes 1{capsu Take 1 Cap [facility] -hydrochlor 6-23 le} by mouth [facility] othiazide 13:49: every of (DYAZIDE) 30 morning. Medici n 37.5-25 MG e per capsule potassium 2020-0 Yes 10meq Take 10 [facility] chloride 6-23 mEq by [place] (MICRO-K) 13:49: mouth of 10 MEQ 30 daily. Medicin capsule e levothyroxi 2020-0 Yes 125ug Take 125 [facility] ne 6-23 mcg by [place] (SYNTHROID) 13:49: mouth of 125 MCG 30 daily. Medicin tablet e gabapentin 2020-0 Yes 500mg Take 500 [facility] (NEURONTIN) 6-23 mg by [place] 300 MG 13:49: mouth of capsule 30 daily. Medicin e atorvastati 2020-0 Yes 20mg Take 20 mg [facility] n (LIPITOR) 6-23 by mouth [facility] 20 MG 13:49: daily. of tablet 30 Medicin e lamoTRIgine 2020-0 Yes 50mg Take 50 mg [facility] 50 MG TBDP 6-23 by mouth Colle [facility] 13:49: two times of 30 daily. Medicin e baclofen 2020-0 Yes 10mg Take 10 mg [place] (LIORESAL) 6-23 by mouth Colle ge 10 MG 13:49: two times of tablet 30 daily. Medicin e Multiple 2020-0 Yes Take by [facility] Vitamins-Mi 01-09 [facility] nerals 13:49: daily. of (MULTIVITAM 30 Medicin IN ADULT e OR) B Complex 2020-0 Yes Take by [facility] Vitamins (B 01-09 [facility] COMPLEX 1 13:49: daily. of OR) 30 Medicin e Calcium 2020-0 Yes Take by [facility] Citrate-Vit 01-09 [facility] two Col [facility]ge oliver D 13:49: times of (CALCIUM 30 daily. Medicin CITRATE + D e OR) [place]-3 2020-0 Yes Take by [facility] Fatty Acids 01-09 [facility] (FISH OIL) 13:49: daily. of 1200 MG 30 Medicin CAPS e Lactobacill 2020-0 Yes Take by [facility] us 01-09 [facility] (PROBIOTIC 13:49: daily. of ACIDOPHILUS 30 Medicin OR) e Calcium 2020-0 Yes Take by [facility] Polycarboph 01-09 [place] [id number] Colle ge il 13:49: times of (FIBER-CAPS 30 daily. Medici n OR) e BIOTIN 5000 2020-0 Yes Take by [facility] OR 01-09 [facility] 13:49: daily. of 30 Medicin e L-THEANINE 2020-0 Yes 200mg Take 200 [facility] OR 6-23 mg by [place] 13:49: mouth of 30 daily. Medicin e Ascorbic 2020-0 Yes Take by [facility] Acid 01-09 [facility] (VITAMIN C) 13:49: daily. of 500 MG CAPS 30 Medicin e Turmeric 2020-0 Yes Take by [facility] Curcumin 01-09 [facility]. [place] 500 MG CAPS 13:49: of 30 Medicin e acetaminoph 2020-0 Yes 1{tbl} Take 1 Tab [facility] en-codeine - by mouth Colle ge (TYLENOL 13:49: every 8 of #3) 300-30 30 hours. Medicin MG per e tablet Magnesium 2020-0 Yes Take by [place] 400 MG TABS - mouth. Colleg e 13:49: of 30 Medicin e Lidocaine 2020-0 Yes Apply [facility] 0.5 % GEL - topically. [facility] 13:49: of 30 Medicin e triamterene 2020-0 Yes 1{capsu Take 1 Cap [facility] -hydrochlor 6- le} by mouth [facility] othiazide 13:49: every of (DYAZIDE) 30 morning. Medici n 37.5-25 MG e per capsule potassium 2020-0 Yes 10meq Take 10 [place] [facility] chloride 6-23 mEq by [facility] (MICRO-K) 13:49: mouth of 10 MEQ 30 daily. Medicin capsule e levothyroxi 2020-0 Yes 125ug Take 125 [facility] 6-23 mcg by [facility] (SYNTHROID) 13:49: mouth of 125 MCG 30 daily. Medicin tablet e gabapentin 2020-0 Yes 500mg Take 500 [facility] (NEURONTIN) 6-23 mg by [facility] 300 MG 13:49: mouth of capsule 30 daily. Medicin e atorvastati 2020-0 Yes 20mg Take 20 mg [facility] n (LIPITOR) 6- by mouth [facility] 20 MG 13:49: daily. of tablet 30 Medicin e lamoTRIgine 2020-0 Yes 50mg Take 50 mg [facility] 50 MG TBDP - by mouth Colle ge 13:49: two times of 30 daily. Medicin e baclofen 2020-0 Yes 10mg Take 10 mg [place] (LIORESAL) 01-09 by mouth Colle [facility] 10 MG 13:49: two times of tablet 30 daily. Medicin e Multiple 2020-0 Yes Take by [facility] Vitamins-Mi 01-09 mouth [place] nerals 13:49: daily. of (MULTIVITAM 30 Medicin IN ADULT e OR) B Complex 2020-0 Yes Take by [facility] Vitamins (B 01-09 mouth [place] COMPLEX 1 13:49: daily. of OR) 30 Medicin e Calcium 2020-0 Yes Take by [facility] Citrate-Vit 01-09 mouth two [facility] oliver D 13:49: times of (CALCIUM 30 daily. Medicin CITRATE + D e OR) [place]-3 2020-0 Yes Take by [facility] Fatty Acids 01-09 mouth [place] (FISH OIL) 13:49: daily. of 1200 MG 30 Medicin CAPS e Lactobacill 2020-0 Yes Take by [place] us 01-09 mouth College (PROBIOTIC 13:49: daily. of ACIDOPHILUS 30 Medicin OR) e Calcium 2020-0 Yes Take by [facility] Polycarboph 01-09 mouth 3 Colle ge il 13:49: times of (FIBER-CAPS 30 daily. Medici n OR) e BIOTIN 5000 2020-0 Yes Take by [facility] OR 01-09 mouth College 13:49: daily. of 30 Medicin e L-THEANINE 2020-0 Yes 200mg Take 200 [facility] OR 6-23 mg by [place] 13:49: mouth of 30 daily. Medicin e Ascorbic 2020-0 Yes Take by [facility] Acid 6-23 mouth [place] (VITAMIN C) 13:49: daily. of 500 MG CAPS 30 Medicin e Turmeric 2020-0 Yes Take by [facility] Curcumin 6-23 mouth. [place] 500 MG CAPS 13:49: of 30 Medicin e acetaminoph 2020-0 Yes 1{tbl} Take 1 Tab [facility] en-codeine 6-23 by mouth Colle [facility] (TYLENOL 13:49: every 8 of #3) 300-30 30 hours. Medicin MG per e tablet Magnesium 2020-0 Yes Take by [place] 400 MG TABS 6-23 mouth. Lis[place] e 13:49: of 30 Medicin e Lidocaine [...] 10 [facility] chloride 6-19 mEq by [place] (MICRO-K) 18:04: mouth of 10 MEQ 39 daily. Medicin capsule e levothyroxi 2020-0 Yes 125ug Take 125 [facility] ne 6-19 mcg by [place] (SYNTHROID) 18:04: mouth of 125 MCG 39 daily. Medicin tablet e gabapentin 2020-0 Yes 500mg Take 500 [facility] (NEURONTIN) 6-19 mg by [place] 300 MG 18:04: mouth of capsule 39 daily. Medicin e atorvastati 2020-0 Yes 20mg Take 20 mg [facility] n (LIPITOR) 6-19 by mouth [facility] 20 MG 18:04: daily. of tablet 39 Medicin e lamoTRIgine 2020-0 Yes 50mg Take 50 mg [facility] 50 MG TBDP 6-19 by mouth Colle ge 18:04: two times of 39 daily. Medicin e baclofen 2020-0 Yes 10mg Take 10 mg [place] (LIORESAL) 6-19 by mouth Colle ge 10 MG 18:04: two times of tablet 39 daily. Medicin e Multiple 2020-0 Yes Take by [facility] Vitamins-Mi 01-05 [facility] 18:04: daily. of (MULTIVITAM 39 Medicin IN ADULT e OR) B Complex 2020-0 Yes Take by [facility] Vitamins (B 01-05 mouth [place] COMPLEX 1 18:04: daily. of OR) 39 Medicin e Calcium 2020-0 Yes Take by [facility] Citrate-Vit 01-05 [facility] two [facility] oliver D 18:04: times of (CALCIUM 39 daily. Medicin CITRATE + D e OR) [place]-3 2020-0 Yes Take by [facility] Fatty Acids 01-05 [facility] (FISH OIL) 18:04: daily. of 1200 MG 39 Medicin CAPS e Lactobacill 2020-0 Yes Take by [facility] us 01-05 [facility] (PROBIOTIC 18:04: daily. of ACIDOPHILUS 39 Medicin OR) e Calcium 2020-0 Yes Take by [facility] Polycarboph 01-05 mouth 3 Colle ge il 18:04: times of (FIBER-CAPS 39 daily. Medici n OR) e BIOTIN 5000 2020-0 Yes Take by [facility] OR 01-05 [facility] 18:04: daily. of 39 Medicin e L-THEANINE 2020-0 Yes 200mg Take 200 [facility] OR - mg by [place] 18:04: mouth of 39 daily. Medicin e Ascorbic 2020-0 Yes Take by [facility] Acid 01-05 [facility] (VITAMIN C) 18:04: daily. of 500 MG CAPS 39 Medicin e Turmeric 2020-0 Yes Take by [facility] Curcumin 01-05 [facility]. [place] 500 MG CAPS 18:04: of 39 Medicin e acetaminoph 2020-0 Yes 1{tbl} Take 1 Tab [facility] en-codeine 01-05 by mouth Colle ge (TYLENOL 18:04: every 8 of #3) 300-30 39 hours. Medicin MG per e tablet Magnesium 2020-0 Yes Take by [place] 400 MG TABS 01-05 mouth. Colleg e 18:04: of 39 Medicin e Lidocaine 2020-0 Yes Apply [facility] 0.5 % GEL 01-05 topically. [facility] 18:04: of 39 Medicin e triamterene 2020-0 Yes 1{capsu Take 1 Cap [facility] -hydrochlor 01-05 le} by mouth [facility] othiazide 18:04: every of (DYAZIDE) 39 morning. Medici n 37.5-25 MG e per capsule potassium 2020-0 Yes 10meq Take 10 [facility] chloride 6-19 mEq by [facility] (MICRO-K) 18:04: mouth of 10 MEQ 39 daily. Medicin capsule e levothyroxi 2020-0 Yes 125ug Take 125 [facility] ne 6-19 mcg by [facility] (SYNTHROID) 18:04: mouth of 125 MCG 39 daily. Medicin tablet e gabapentin 2020-0 Yes 500mg Take 500 [facility] (NEURONTIN) 6-19 mg by [facility] 300 MG 18:04: mouth of capsule 39 daily. Medicin e atorvastati 2020-0 Yes 20mg Take 20 mg [facility] n (LIPITOR) 01-05 by mouth [facility] 20 MG 18:04: daily. of tablet 39 Medicin e lamoTRIgine 2020-0 Yes 50mg Take 50 mg [facility] 50 MG TBDP 01-05 by mouth Colle [facility] 18:04: two times of 39 daily. Medicin e baclofen 2020-0 Yes 10mg Take 10 mg [place] (LIORESAL) 01-05 by mouth Colle ge 10 MG 18:04: two times of tablet 39 daily. Medicin e Multiple 2020-0 Yes Take by [facility] Vitamins-Mi - mouth [place] nerals 18:04: daily. of (MULTIVITAM 39 Medicin IN ADULT e OR) B Complex 2020-0 Yes Take by [facility] r Vitamins (B 01-05 mouth [place] COMPLEX 1 18:04: daily. of OR) 39 Medicin e Calcium 2020-0 Yes Take by [facility] Citrate-Vit 01-05 mouth two [facility] oliver D 18:04: times of (CALCIUM 39 daily. Medicin CITRATE + D e OR) [place]-3 2020-0 Yes Take by [facility] Fatty Acids 01-05 mouth [place] (FISH OIL) 18:04: daily. of 1200 MG 39 Medicin CAPS e Lactobacill 2020-0 Yes Take by [place] us - mouth College (PROBIOTIC 18:04: daily. of ACIDOPHILUS 39 Medicin OR) e Calcium 2020-0 Yes Take by [facility] Polycarboph - mouth 3 Colle ge il 18:04: times of (FIBER-CAPS 39 daily. Medici n OR) e BIOTIN 5000 2020-0 Yes Take by [facility] OR 6-19 mouth College 18:04: daily. of 39 Medicin e L-THEANINE 2020-0 Yes 200mg Take 200 [facility] OR 6-19 mg by [place] 18:04: mouth of 39 daily. Medicin e Ascorbic 2020-0 Yes Take by [facility] Acid -19 mouth [place] (VITAMIN C) 18:04: daily. of 500 MG CAPS 39 Medicin e Turmeric 2020-0 Yes Take by [facility] Curcumin -19 mouth. [place] 500 MG CAPS 18:04: of 39 Medicin e acetaminoph 2020-0 Yes 1{tbl} Take 1 Tab [facility] en-codeine 01-05 by mouth [facility] (TYLENOL 18:04: every 8 of #3) 300-30 39 hours. Medicin MG per e tablet Magnesium 2020-0 Yes Take by [facility] r 400 MG TABS - mouth. Lisag conrelius 18:04: of 39 Medicin e Lidocaine 2020-0 Yes Apply [facility] 0.5 % GEL 01-05 topically. [facility] 18:04: of 39 Medicin e fluoxetine 2020-0 2020- No 10mg Take 10 mg [facility] (PROZAC) 10 6-17 -17 by mouth [facility] MG tablet 16:48: 00:00 daily. of 05 :00 Medicin e hydrOXYzine 2020-0 2020- No 25mg Take 25 mg [facility] (ATARAX) 25 6-17 06-17 by mouth Col [facility] MG tablet 16:38: 00:00 two times of 31 :00 daily. Medicin e hydrOXYzine 2020-0 Yes 50mg Take 1 Tab [facility] (ATARAX) 50 6-17 by mouth 3 Co llege MG tablet 00:00: times of 00 daily as Medicin needed for e Anxiety. Desvenlafax 2020-0 Yes 25mg Take 25 mg [facility] ine 6-17 by mouth [place] Succinate 00:00: daily. of ER 25 MG 00 Medicin TB24 e hydrOXYzine 2020-0 Yes 50mg Take 1 Tab [facility] (ATARAX) 50 6-17 by mouth 3 Co [facility]lege MG tablet 00:00: times of 00 daily as Medicin needed for e Anxiety. Desvenlafax 2020-0 Yes 25mg Take 25 mg [facility] ine 6-17 by mouth [place] Succinate 00:00: daily. of ER 25 MG 00 Medicin TB24 e hydrOXYzine 2020-0 Yes 50mg Take 1 Tab [facility] (ATARAX) 50 6-17 by mouth 3 Co [...] hydrOXYzine 2020-0 Yes 50mg Take 1 Tab [facility] (ATARAX) 50 6-17 by mouth 3 Co llege MG tablet 00:00: times of 00 daily as Medicin needed for e Anxiety. hydrOXYzine 2020-0 Yes 50mg Take 1 Tab [facility] (ATARAX) 50 6-17 by mouth 3 Co llege MG tablet 00:00: times of 00 daily as Medicin needed for e Anxiety. hydrOXYzine 2020-0 2020- No 50mg Take 1 Tab [facility] (ATARAX) 50 6-17 10-27 by mouth 3 C [facility] MG tablet 00:00: 00:00 times of 00 :00 daily as Medicin needed for e Anxiety. Lexiscan IV 2020-0 2020- No [id number] .4mg [facility] Shanell) 0.4 12-18 [place] MG/5ML 16:00: 15:00 of injection 00 :00 Medicin 0.4 mg e Technetium 2020-0 2020- No [id number] 5mCi [facility] Tc 99m 12-18 [place] Tetrofosmin 16:00: 15:00 of (MYOVIEW) 00 :00 Medicin injection e 5-30 millicurie Technetium 2020-0 2020- No [id number] 5mCi [facility] Tc 99m 12-18 [place] Tetrofosmin 16:00: 14:00 of (MYOVIEW) 00 :00 Medicin injection e 5-30 [facility]urie triamterene 2020-0 Yes 1{capsu Take 1 Cap [facility] -hydrochlor 5-26 le} by mouth [facility] othiazide 15:32: every of (DYAZIDE) 13 morning. Medici n 37.5-25 MG e per capsule potassium 2020-0 Yes 10meq Take 10 [facility] chloride 5-26 mEq by [place] (MICRO-K) 15:32: mouth of 10 MEQ 13 daily. Medicin capsule e levothyroxi 2020-0 Yes 125ug Take 125 [facility] ne 5-26 mcg by [place] (SYNTHROID) 15:32: mouth of 125 MCG 13 daily. Medicin tablet e gabapentin 2020-0 Yes 300mg Take 300 [facility] (NEURONTIN) 5-26 mg by [place] 300 MG 15:32: mouth of capsule 13 daily. Medicin e atorvastati 2020-0 Yes 20mg Take 20 mg [facility] n (LIPITOR) - by mouth [facility] 20 MG 15:32: daily. of tablet 13 Medicin e lamoTRIgine 2020-0 Yes 50mg Take 50 mg [facility] 50 MG TBDP - by mouth Colle ge 15:32: two times of 13 daily. Medicin e hydrOXYzine 2020-0 Yes 25mg Take 25 mg [facility] (ATARAX) 25 5-26 by mouth [facility] MG tablet 15:32: two times of 13 daily. Medicin e baclofen 2020-0 Yes 10mg Take 10 mg [place] (LIORESAL) - by mouth Colle ge 10 MG 15:32: two times of tablet 13 daily. Medicin e Multiple 2020-0 Yes Take by [facility] Vitamins-Mi - mouth [place] nerals 15:32: daily. of (MULTIVITAM 13 Medicin IN ADULT e OR) B Complex 2020-0 Yes Take by [facility] r Vitamins (B 5- mouth [place] COMPLEX 1 15:32: daily. of OR) 13 Medicin e Calcium 2020-0 Yes Take by [facility] Citrate-Vit - mouth two [facility] oliver D 15:32: times of (CALCIUM 13 daily. Medicin CITRATE + D e OR) [place]-3 2020-0 Yes Take by [facility] Fatty Acids - mouth [place] (FISH OIL) 15:32: daily. of 1200 MG 13 Medicin CAPS e Lactobacill 2020-0 Yes Take by [place] [facility] us - mouth [facility] (PROBIOTIC 15:32: daily. of ACIDOPHILUS 13 Medicin OR) e Calcium 2020-0 Yes Take by [facility] Polycarboph - mouth 3 Colle ge il 15:32: times of (FIBER-CAPS 13 daily. Medici n OR) e BIOTIN 5000 2020-0 Yes Take by [place] OR - mouth College 15:32: daily. of 13 Medicin e L-THEANINE 2020-0 Yes 200mg Take 200 [facility] OR 5-26 mg by [facility] 15:32: mouth of 13 daily. Medicin e Ascorbic 2020-0 Yes Take by [facility] Acid 12-12 mouth [place] (VITAMIN C) 15:32: daily. of 500 MG CAPS 13 Medicin e Turmeric 2020-0 Yes Take by [facility] Curcumin 12-12 mouth. [place] 500 MG CAPS 15:32: of 13 Medicin e acetaminoph 2020-0 Yes 1{tbl} Take 1 Tab [facility] en-codeine - by mouth Colle (TYLENOL 15:32: every 4 of #3) 300-30 13 hours as Medic in MG per needed for e tablet Pain. fluoxetine 2020-0 Yes 10mg Take 10 mg [facility] (PROZAC) 10 -26 by mouth Shanel ege MG tablet 15:32: daily. of 13 Medicin e triamterene 2020-0 Yes 1{capsu Take 1 Cap [facility] -hydrochlor -26 le} by mouth [place] e[place] othiazide 15:32: every of (DYAZIDE) 13 morning. Medici n 37.5-25 MG e per capsule potassium 2020-0 Yes 10meq Take 10 [facility] chloride 5-26 mEq by [place] (MICRO-K) 15:32: mouth of 10 MEQ 13 daily. Medicin capsule e levothyroxi 2020-0 Yes 125ug Take 125 [facility] ne 5-26 mcg by [place] (SYNTHROID) 15:32: mouth of 125 MCG 13 daily. Medicin tablet e gabapentin 2020-0 Yes 300mg Take 300 [facility] (NEURONTIN) 5-26 mg by [place] 300 MG 15:32: mouth of capsule 13 daily. Medicin e atorvastati 2020-0 Yes 20mg Take 20 mg [facility] n (LIPITOR) 5-26 by mouth Shanel ege 20 MG 15:32: daily. of tablet 13 Medicin e lamoTRIgine 2020-0 Yes 50mg Take 50 mg [facility] 50 MG TBDP 12-12 by mouth Colle ge 15:32: two times of 13 daily. Medicin e hydrOXYzine 2020-0 Yes 25mg Take 25 mg [facility] (ATARAX) 25 12-12 by mouth Shanel ege MG tablet 15:32: two times of 13 daily. Medicin e baclofen 2020-0 Yes 10mg Take 10 mg [facility] (LIORESAL) 12-12 by mouth Colle ge 10 MG 15:32: two times of tablet 13 daily. Medicin e Multiple 2020-0 Yes Take by [facility] Vitamins-Mi 12-12 mouth [place] nerals 15:32: daily. of (MULTIVITAM 13 Medicin IN ADULT e OR) B Complex 2020-0 Yes Take by [facility] Vitamins (B 12-12 mouth [place] COMPLEX 1 15:32: daily. of OR) 13 Medicin e Calcium 2020-0 Yes Take by [facility] Citrate-Vit 12-12 mouth two [facility] oliver D 15:32: times of (CALCIUM 13 daily. Medicin CITRATE + D e OR) [place]-3 2020-0 Yes Take by [facility] Fatty Acids 12-12 mouth [place] (FISH OIL) 15:32: daily. of 1200 MG 13 Medicin CAPS e Lactobacill 2020-0 Yes Take by [facility] us 12-12 mouth [place] (PROBIOTIC 15:32: daily. of ACIDOPHILUS 13 Medicin OR) e Calcium 2020-0 Yes Take by [facility] Polycarboph 12-12 mouth 3 Colle ge il 15:32: times of (FIBER-CAPS 13 daily. Medici n OR) e BIOTIN 5000 2020-0 Yes Take by [facility] OR 12-12 mouth College 15:32: daily. of 13 Medicin e L-THEANINE 2020-0 Yes 200mg Take 200 [facility] OR - mg by [facility] 15:32: mouth of 13 daily. Medicin e Ascorbic 2020-0 Yes Take by [facility] Acid 12-12 mouth [place] (VITAMIN C) 15:32: daily. of 500 MG CAPS 13 Medicin e Turmeric 2020-0 Yes Take by [facility] Curcumin 12-12 mouth. [facility] 500 MG CAPS 15:32: of 13 Medicin e acetaminoph 2020-0 Yes 1{tbl} Take 1 Tab [facility] en-codeine 5-26 by mouth Colle ge (TYLENOL 15:32: every 4 of #3) 300-30 13 hours as Medic in MG per needed for e tablet Pain. fluoxetine 2020-0 Yes 10mg Take 10 mg [facility] (PROZAC) 10 5-26 by mouth Shanel ege MG tablet 15:32: daily. of 13 Medicin e triamterene 2020-0 Yes 1{capsu Take 1 Cap [facility] -hydrochlor 5-19 le} by mouth Sahnel ege othiazide 14:28: every of (DYAZIDE) 36 morning. Medici n 37.5-25 MG e per capsule potassium 2020-0 Yes 10meq Take 10 [facility] or chloride 5-19 mEq by [place] (MICRO-K) 14:28: mouth of 10 MEQ 36 daily. Medicin capsule e levothyroxi 2020-0 Yes 125ug Take 125 [facility] [place] ne 5-19 mcg by [place] (SYNTHROID) 14:28: mouth of 125 MCG 36 daily. Medicin tablet e gabapentin 2020-0 Yes 300mg Take 300 [facility] (NEURONTIN) 5-19 mg by [place] 300 MG 14:28: mouth of capsule 36 daily. Medicin e atorvastati 2020-0 Yes 20mg Take 20 mg [facility] n (LIPITOR) 5-19 by mouth Shanel ege [...] baclofen 2020-0 Yes 10mg Take 10 mg [place] (LIORESAL) 5-19 by mouth Colle ge 10 MG 14:28: two times of tablet 36 daily. Medicin e Multiple 2020-0 Yes Take by [facility] Vitamins-Mi 5-19 mouth [place] nerals 14:28: daily. of (MULTIVITAM 36 Medicin IN ADULT e OR) B Complex 2020-0 Yes Take by [facility] r Vitamins (B 5-19 mouth [place] COMPLEX 1 14:28: daily. of OR) 36 Medicin e Calcium 2020-0 Yes Take by [facility] Citrate-Vit 5-19 mouth two [facility] o[facility] D 14:28: times of (CALCIUM 36 daily. Medicin CITRATE + D e OR) [place]-3 2020-0 Yes Take by [facility] Fatty Acids - [facility] (FISH OIL) 14:28: daily. of 1200 MG 36 Medicin CAPS e Lactobacill 2020-0 Yes Take by [facility] us - mouth [place] (PROBIOTIC 14:28: daily. of ACIDOPHILUS 36 Medicin OR) e Calcium 2020-0 Yes Take by [facility] Polycarboph - mouth 3 Colle ge il 14:28: times of (FIBER-CAPS 36 daily. Medici n OR) e BIOTIN 5000 2020-0 Yes Take by [facility] OR - mouth [place] 14:28: daily. of 36 Medicin e L-THEANINE 2020-0 Yes 200mg Take 200 [facility] OR 5-19 mg by [place] 14:28: mouth of 36 daily. Medicin e Ascorbic 2020-0 Yes Take by [facility] Acid - [facility] (VITAMIN C) 14:28: daily. of 500 MG CAPS 36 Medicin e Turmeric 2020-0 Yes Take by [facility] Curcumin - mouth. [place] 500 MG CAPS 14:28: of 36 Medicin e acetaminoph 2020-0 Yes 1{tbl} Take 1 Tab [facility] en-codeine 5-19 by mouth [facility] (TYLENOL 14:28: every 4 of #3) 300-30 36 hours as Medic in MG per needed for e tablet Pain. fluoxetine 2020-0 Yes 10mg Take 10 mg [facility] (PROZAC) 10 5-19 by mouth Shanel ege MG tablet 14:28: daily. of 36 Medicin e hydrocodone 2020-0 2020- No 1{tbl} Take 1 Tab [facility] -acetaminop 5-19 05-19 by mouth 2 [facility] hen (NORCO) 14:27: 00:00 times of 7.5-325 MG 10 :00 daily as Medic in per tablet needed for e Pain. hydrocodone 2020-0 Yes 1{tbl} Take 1 Tab [facility] -acetaminop 5-05 by mouth 2 [employer] [facility] hen (NORCO) 14:46: times of 7.5-325 MG 24 daily as Medic in per tablet needed for e Pain. Turmeric 2020-0 Yes Take by [facility] Curcumin 5-05 mouth. [facility] 500 MG CAPS 14:46: of 19 Medicin e triamterene 2020-0 Yes 1{capsu Take 1 Cap [facility] -hydrochlor 5-05 le} by mouth Shanel ege othiazide 14:46: every of (DYAZIDE) 18 morning. Medici n 37.5-25 MG e per capsule potassium 2020-0 Yes 10meq Take 10 [facility] chloride 5-05 mEq by [place] (MICRO-K) 14:46: mouth of 10 MEQ 18 daily. Medicin capsule e levothyroxi 2020-0 Yes 125ug Take 125 [facility] [place] ne 5-05 mcg by [place] (SYNTHROID) 14:46: mouth of 125 MCG 18 daily. Medicin tablet e gabapentin 2020-0 Yes 300mg Take 300 [facility] (NEURONTIN) 5-05 mg by [place] 300 MG 14:46: mouth of capsule 18 daily. Medicin e atorvastati 2020-0 Yes 20mg Take 20 mg [facility] n (LIPITOR) 5-05 by mouth Shanel ege [...] baclofen 2020-0 Yes 10mg Take 10 mg [place] (LIORESAL) 5-05 by mouth Colle ge 10 MG 14:46: two times of tablet 18 daily. Medicin e Multiple 2020-0 Yes Take by [facility] Vitamins-Mi 5-05 mouth [place] nerals 14:46: daily. of (MULTIVITAM 18 Medicin IN ADULT e OR) B Complex 2020-0 Yes Take by [facility] r Vitamins (B 5-05 mouth [place] COMPLEX 1 14:46: daily. of OR) 18 Medicin e Calcium 2020-0 Yes Take by [facility] Citrate-Vit 5-05 mouth two [facility] oliver D 14:46: times of (CALCIUM 18 daily. Medicin CITRATE + D e OR) [place]-3 2020-0 Yes Take by [facility] Fatty Acids 5-05 [facility] (FISH OIL) 14:46: daily. of 1200 MG 18 Medicin CAPS e Lactobacill 2020-0 Yes Take by [place] us 5-05 mouth [place] (PROBIOTIC 14:46: daily. of ACIDOPHILUS 18 Medicin OR) e Calcium 2020-0 Yes Take by [facility] Polycarboph 5-05 mouth 3 Colle ge il 14:46: times of (FIBER-CAPS 18 daily. Medici n OR) e BIOTIN 5000 2020-0 Yes Take by [facility] OR 5-05 mouth [place] 14:46: daily. of 18 Medicin e L-THEANINE 2020-0 Yes 200mg Take 200 [facility] OR 5-05 mg by [place] 14:46: mouth of 18 daily. Medicin e Ascorbic 2020-0 Yes Take by [facility] Acid 5-05 mouth [place] (VITAMIN C) 14:46: daily. of 500 MG CAPS 18 Medicin e Spironolact 2020-0 2020- No 25mg Take 25 mg [facility] one-HCTZ 4-21 04-21 by mouth Colleg e 25-25 MG 14:14: 00:00 daily. of TABS 23 :00 Medicin e triamterene 2020-0 Yes 1{capsu Take 1 Cap [place] -hydrochlor 4-21 le} by mouth Shanel ege othiazide 14:13: every of (DYAZIDE) 06 morning. Medici n 37.5-25 MG e per capsule potassium 2020-0 Yes 10meq Take 10 [facility] chloride 4-21 mEq by [place] (MICRO-K) 14:13: mouth of 10 MEQ 06 daily. Medicin capsule e levothyroxi 2020-0 Yes 125ug Take 125 [facility] ne 4-21 mcg by [place] (SYNTHROID) 14:13: mouth of 125 MCG 06 daily. Medicin tablet e gabapentin 2020-0 Yes 300mg Take 300 [facility] (NEURONTIN) 4-21 mg by [place] 300 MG 14:13: mouth of capsule 06 daily. Medicin e atorvastati 2020-0 Yes 20mg Take 20 mg [facility] n (LIPITOR) 4-21 by mouth Shanel ege 20 MG 14:13: daily. of tablet 06 Medicin e lamoTRIgine 2020-0 Yes 50mg Take 50 mg [facility] 50 MG TBDP 4-21 by mouth Colle ge 14:13: two times of 06 daily. Medicin e hydrOXYzine 2020-0 Yes 25mg Take 25 mg [facility] (ATARAX) 25 4-21 by mouth Shanel ege MG tablet 14:13: two times of 06 daily. Medicin e baclofen 2020-0 Yes 10mg Take 10 mg [place] (LIORESAL) 11-07 by mouth Colle ge 10 MG 14:13: two times of tablet 06 daily. Medicin e hydrocodone 2020-0 Yes 1{tbl} Take 1 Tab [facility] -acetaminop 11-07 by mouth 2 [facility] hen (NORCO) 14:13: times of 7.5-325 MG 06 daily as Medic in per tablet needed for e Pain. Multiple 2020-0 Yes Take by [facility] Vitamins-Mi 11-07 [facility] [place]erals 14:13: daily. of (MULTIVITAM 06 Medicin IN ADULT e OR) B Complex 2020-0 Yes Take by [facility] Vitamins (B 11-07 [facility] COMPLEX 1 14:13: daily. of OR) 06 Medicin e Calcium 2020-0 Yes Take by [facility] Citrate-Vit 11-07 mouth two [facility] oliver D 14:13: times of (CALCIUM 06 daily. Medicin CITRATE + D e OR) [place]-3 2020-0 Yes Take by [facility] Fatty Acids 11-07 [facility] (FISH OIL) 14:13: daily. of 1200 MG 06 Medicin CAPS e Lactobacill 2020-0 Yes Take by [facility] us 11-07 [facility] (PROBIOTIC 14:13: daily. of ACIDOPHILUS 06 Medicin OR) e Calcium 2020-0 Yes Take by [facility] Polycarboph 11-07 mouth 3 Colle ge il 14:13: times of (FIBER-CAPS 06 daily. Medici n OR) e BIOTIN 5000 2020-0 Yes Take by [facility] [place] 11-07 [facility] 14:13: daily. of 06 Medicin e L-THEANINE 2020-0 Yes 200mg Take 200 [facility] OR 11-07 mg by [place] 14:13: mouth of 06 daily. Medicin e Ascorbic 2020-0 Yes Take by [facility] Acid 11-07 [facility] (VITAMIN C) 14:13: daily. of 500 MG CAPS 06 Medicin e Turmeric 2020-0 Yes Take by [facility] Curcumin 11-07 [facility]. [place] 500 MG CAPS 14:13: of 06 Medicin e Gabapentin 2020-0 2020- No by [facility] & 11-07 COMBINAO [place] Lidocaine-M 14:13: 00:00 N route of enthol 06 :00 daily. Medicin (SMARTRX e JOEY CO) triamterene 2020-0 Yes 1{capsu Take 1 Cap [facility] -hydrochlor 4-07 le} by mouth [place] e[place] othiazide 17:37: every of (DYAZIDE) 31 morning. Medici n 37.5-25 MG e per capsule Spironolact 2020-0 Yes 25mg Take 25 mg [facility] one-HCTZ 4-07 by mouth [place] 25-25 MG 17:37: daily. of TABS 31 Medicin e potassium 2020-0 Yes 10meq Take 10 [facility] chloride 4-07 mEq by [place] (MICRO-K) 17:37: mouth of 10 MEQ 31 daily. Medicin capsule e levothyroxi 2020-0 Yes 125ug Take 125 [place] ne 4-07 mcg by [place] (SYNTHROID) 17:37: mouth of 125 MCG 31 daily. Medicin tablet e gabapentin 2020-0 Yes 300mg Take 300 [facility] (NEURONTIN) 4-07 mg by [place] 300 MG 17:37: mouth of capsule 31 daily. Medicin e atorvastati 2020-0 Yes 20mg Take 20 mg [facility] n (LIPITOR) 4-07 by mouth Shanel ege 20 MG 17:37: daily. of tablet 31 Medicin e lamoTRIgine 2020-0 Yes 50mg Take 50 mg [facility] 50 MG TBDP 4-07 by mouth Colle ge 17:37: two times of 31 daily. Medicin e hydrOXYzine 2020-0 Yes 25mg Take 25 mg [facility] (ATARAX) 25 4-07 by mouth Shanel ege MG tablet 17:37: two times of 31 daily. Medicin e baclofen 2020-0 Yes 10mg Take 10 mg [place] (LIORESAL) 4-07 by mouth Colle ge 10 MG 17:37: two times of tablet 31 daily. Medicin e hydrocodone 2020-0 Yes 1{tbl} Take 1 Tab [facility] -acetaminop 4-07 by mouth 2 [facility] hen (NORCO) 17:37: times of 7.5-325 MG 31 daily as Medic in per tablet needed for e Pain. Multiple 2020-0 Yes Take by [facility] Vitamins-Mi 4-07 mouth [place] nerals 17:37: daily. of (MULTIVITAM 31 Medicin IN ADULT e OR) B Complex 2020-0 Yes Take by [facility] Vitamins (B 10-24 mouth [place] COMPLEX 1 17:37: daily. of OR) 31 Medicin e Calcium 2020-0 Yes Take by [facility] Citrate-Vit - mouth two [facility] oliver D 17:37: times of (CALCIUM 31 daily. Medicin CITRATE + D e OR) [place]-3 2020-0 Yes Take by [facility] Fatty Acids [address] [place] [address] (FISH OIL) 17:37: daily. of 1200 MG 31 Medicin CAPS e Lactobacill 2020-0 Yes Take by [facility] us - mouth [place] (PROBIOTIC 17:37: daily. of ACIDOPHILUS 31 Medicin OR) e Calcium 2020-0 Yes Take by [facility] Polycarboph - mouth 3 Colle ge il 17:37: times of (FIBER-CAPS 31 daily. Medici n OR) e BIOTIN 5000 2020-0 Yes Take by [facility] OR [address] [place] [address] 17:37: daily. of 31 Medicin e magnesium 2020-0 Yes 30mL Take 30 mL [facility] hydroxide 10-24 by mouth Colleg e (MILK OF 17:37: daily. of MAGNESIA) 31 Medicin suspension e L-THEANINE 2020-0 Yes 200mg Take 200 [facility] OR - mg by [facility] 17:37: mouth of 31 daily. Medicin e Ascorbic 2020-0 Yes Take by [facility] Acid [address] [place] [address] (VITAMIN C) 17:37: daily. of 500 MG CAPS 31 Medicin e Gabapentin 2020-0 Yes by [facility] & [facility] Lidocaine-M 17:37: N route of enthol 31 daily. Medicin (SMARTRX e JOEY CO) ondansetron 2020-0 2020- No [id number] 4mg Take 1 Tab [facility] (ZOFRAN) 4 10-24 by mouth Shanel ege MG tablet 00:00: 04:59 every 8 of 00 :00 hours as Medicin needed for e Nausea for up to 30 days. lidocaine-p 2020-0 2020- No [id number] 1{appli Apply 1 [facility] rilocaine 10-24 cation} applicatio [place] ([facility]) 00:00: 04:59 n of 2.5-2.5 % 00 :00 topically Medic in cream as needed e for Other (apply over PORT 30-60 minutes prior to treatment) for up to 30 days. ondansetron 2020-0 2020- No [id number] 4mg Take 1 Tab [facility] (ZOFRAN) 4 10-24 05-08 by mouth Shanel ege MG tablet 00:00: 04:59 every 8 of 00 :00 hours as Medicin needed for e Nausea for up to 30 days. lidocaine-p 2020-0 2020- No [id number] 1{appli Apply 1 [facility] rilocaine 4- 05-08 cation} [facility]) 00:00: 04:59 n of 2.5-2.5 % 00 :00 topically Medic in cream as needed e for Other (apply over PORT 30-60 minutes prior to treatment) for up to 30 days. ondansetron 2020-0 2020- No [id number] 4mg Take 1 Tab [facility] (ZOFRAN) 4 10-24-08 by mouth Shanel ege MG tablet 00:00: 04:59 every 8 of 00 :00 hours as Medicin needed for e Nausea for up to 30 days. lidocaine-p 2020-0 2020- No [id number] 1{appli Apply 1 [facility] rilocaine 4- 05-08 cation} [facility] ([facility]) 00:00: 04:59 n of 2.5-2.5 % 00 :00 topically Medic in cream as needed e for Other (apply over PORT 30-60 minutes prior to treatment) for up to 30 days. Acetaminoph 2020-0 Yes 1 tab, PO, Memoria en 325 MG / 4-01 Q6H, 0 l Hydrocodone 20:35: Refill(s) H ermann Bitartrate 00 5 MG Oral Tablet Calcium 2020-0 Yes Take by [facility] Citrate-Vit 10-03 mouth two [facility] oliver D 20:44: times of (CALCIUM 44 daily. Medicin CITRATE + D e OR) [place]-3 2020-0 Yes Take by [facility] Fatty Acids 10-03 [facility] (FISH OIL) 20:44: daily. of 1200 MG 44 Medicin CAPS e Lactobacill 2020-0 Yes Take by [facility] us 10-03 mouth [facility] (PROBIOTIC 20:44: daily. of ACIDOPHILUS 44 Medicin OR) e Calcium 2020-0 Yes Take by [facility] Polycarboph -17 mouth 3 Colle ge il 20:44: times of (FIBER-CAPS 44 daily. Medici n OR) e BIOTIN 5000 2020-0 Yes Take by [place] OR 3-17 mouth [place] 20:44: daily. of 44 Medicin e magnesium 2020-0 Yes 30mL Take 30 mL [facility] hydroxide 3-17 by mouth Colleg e (MILK OF 20:44: daily. of MAGNESIA) 44 Medicin suspension e L-THEANINE 2020-0 Yes 200mg Take 200 [facility] OR 3-17 mg by [place] 20:44: mouth of 44 daily. Medicin e Ascorbic 2020-0 Yes Take by [facility] Acid 3-17 mouth [place] (VITAMIN C) 20:44: daily. of 500 MG CAPS 44 Medicin e Gabapentin 2020-0 Yes by [facility] & 317 [facility] Lidocaine-M 20:44: N route of enthol 44 daily. Medicin (SMARTRX e JOEY CO) levothyroxi 2020-0 Yes 125ug Take 125 [facility] ne 3-17 mcg by [place] (SYNTHROID) 20:44: mouth of 125 MCG 43 daily. Medicin tablet e gabapentin 2020-0 Yes 300mg Take 300 [facility] (NEURONTIN) 3-17 mg by [place] 300 MG 20:44: mouth of capsule 43 daily. Medicin e atorvastati 2020-0 Yes 20mg Take 20 mg [facility] n (LIPITOR) 3-17 by mouth Shanel ege 20 MG 20:44: daily. of tablet 43 Medicin e lamoTRIgine 2020-0 Yes 50mg Take 50 mg [facility] 50 MG TBDP 3-17 by mouth Colle ge 20:44: two times of 43 daily. Medicin e hydrOXYzine 2020-0 Yes 25mg Take 25 mg [facility] (ATARAX) 25 3-17 by mouth Shanel ege MG tablet 20:44: two times of 43 daily. Medicin e baclofen 2020-0 Yes 10mg Take 10 mg [place] (LIORESAL) 3-17 by mouth Colle ge 10 MG 20:44: two times of tablet 43 daily. Medicin e hydrocodone 2020-0 Yes 1{tbl} Take 1 Tab [facility] -acetaminop 3-17 by mouth 2 [facility] hen (NORCO) 20:44: times of 7.5-325 MG 43 daily as Medic in per tablet needed for e Pain. Multiple 2020-0 Yes Take by [facility] Vitamins-Mi 3-17 mouth [place] nerals 20:44: daily. of (MULTIVITAM 43 Medicin IN ADULT e OR) B Complex 2020-0 Yes Take by [facility] r Vitamins (B 3-17 mouth [place] COMPLEX 1 20:44: daily. of OR) 43 Medicin e triamterene 2020-0 Yes 1{capsu Take 1 Cap [facility] -hydrochlor 3-17 le} by mouth Shanel ege othiazide 20:31: every of (DYAZIDE) 15 morning. Medici n 37.5-25 MG e per capsule Spironolact 2020-0 Yes 25mg Take 25 mg [facility] one-HCTZ 3-17 by mouth [place] 25-25 MG 20:31: daily. of TABS 15 Medicin e potassium 2019-0 Yes 10meq Take 10 [facility] chloride 3-17 mEq by [facility] (MICRO-K) 20:31: mouth of 10 MEQ 15 daily. Medicin capsule e tramadol 0 Yes 50 mg = 1 [place] marylu hydrochlori 2-27 tab, PO, l de 50 MG 22:15: Q12H, X 30 Her [place] Oral Tablet 00 day, # 60 tab, 1 Refill(s), Pharmacy: [id number] Ascorbic 2019-0 Yes 1{capsu Take 1 Cap [facility] Acid 2-13 le} by mouth [place] (VITAMIN C) 00:00: daily. of 500 MG CAPS 00 Medicin e [place]-3 0 Yes 1{tbl} Take 1 Tab [facility] Fatty Acids 2-13 by mouth [place] (FISH OIL) 00:00: daily. of 1200 MG 00 Medicin CAPS e B 2019-0 Yes 1{capsu Take 1 Cap [facility] Complex-C-F 2-13 le} by mouth Shan[place] olic Acid 00:00: daily. of (SUPER B 00 Medicin COMPLEX/FA/ e VIT C OR) Turmeric 2020-0 Yes DAILY [facility] 500 MG CAPS 2-13 [place] 00:00: of 00 Medicin e Turmeric 2020-0 2020- No DAILY [facility] 500 MG CAPS 2-13 - [place] 00:00: 00:00 of 00 :00 Medicin e Ascorbic 2020-0 2020- No 1{capsu Take 1 Cap [facility] Acid 2-13 11-19 le} by mouth [place] (VITAMIN C) 00:00: 00:00 daily. of 500 MG CAPS 00 :00 Medicin e [place]-3 2020- No 1{tbl} Take 1 Tab [facility] Fatty Acids 09-01 by mouth [facility] (FISH OIL) 00:00: 00:00 daily. of 1200 MG 00 :00 Medicin CAPS e B 2020- No 1{capsu Take 1 Cap [place] Complex-C-F 09-01 le} by mouth [facility] olic Acid 00:00: 00:00 daily. of (SUPER B 00 :00 Medicin COMPLEX/FA/ e VIT C OR) Magnesium 2020- No DAILY [facility] Oxide 250 09-01 College MG TABS 00:00: 00:00 of 00 :00 Medicin e baclofen 10 Yes 10 mg = 1 M emoria mg oral 2-11 tab, PO, l tablet 19:17: BID, # 60 Harish n 00 tab, 2 Refill(s), Pharmacy: [facility] #[id number] duloxetine No PO, 0 Memori a 1-30 Refill(s) l 21:19: Aleksey 00 DULoxetine Yes 20 mg = 1 Me moria 20 mg oral 1-30 cap, PO, l delayed 21:19: Daily, 0 Harish n release 00 Refill(s) capsule duloxetine No See Memoria 1-30 Instructio l 21:02: ns, 50mg Aleksey 00 PO qd, 0 Refill(s) Lorazepam 2018-07 No See Memoria 0.5 MG Oral 2-26 Instructio l Tablet 20:32: ns, Take 1 Bing nn [Ativan] 00 tab po 1 hour prior to MRI, may repeat q 15 min. if still anxious, # 5 tab, 0 Refill(s), called to pharmacy Hydroxyzine 2018-07 Yes 25 mg = 1 M emoria Hydrochlori 2-19 tab, PO, l de 25 MG 20:55: QID, PRN Bing nn Oral Tablet 00 Itching, # 40 tab, 0 Refill(s) clonazePAM 2018-07 Yes See Memoria 0.5 mg oral 2-19 Instructio l tablet 20:55: ns, 2 tabs Bing nn 00 po qam, 1 tab at noon, 1 tab qhs, 0 Refill(s) clorazepate 2018-07 Yes 7.5 mg = 1 Memoria 7.5 mg oral 2-19 tab, PO, l tablet 20:55: TID, PRN [place] 00 Agitation, 0 Refill(s) gabapentin Yes 300 mg = 1 M emoria 300 MG Oral 8-15 cap, PO, l Capsule 21:14: Daily, # Harish n 00 30 cap, 6 Refill(s), Pharmacy: [id number] Potassium Yes 10 mEq, Memor ia Chloride 5-31 PO, Daily, l 20:53: 0 Aleksey 00 Refill(s) 24 HR Yes See Memoria lamotrigine 1-11 Instructio l 50 MG 19:36: ns, 4 tab [place] Extended 00 PO Daily, Release 0 Tablet Refill(s) busPIRone 5 Yes 10 mg = 2 M emoria mg oral 1-11 tab, PO, l tablet 19:36: BID, # 90 Harish n 00 tab, 0 Refill(s) gabapentin Yes 100 mg = 1 M emoria 100 MG Oral 1-11 cap, PO, l Capsule 19:35: Daily, 0 Harish n 00 Refill(s) Buspar No PO, BID, 0 Memor ia 1-11 Refill(s) l 19:29: [place] 00 lamotrigine No 75 mg = 3 [...] tab, PO, l tablet 19:26: QID, 0 Aleksey 00 Refill(s) gabapentin 2017-07 No 100 mg = 1 M emoria 100 MG Oral 1-30 cap, PO, l Capsule 19:26: Daily, 0 Harish n 00 Refill(s) Gabapentin Gabapentin Yes [place] 1 capsule Common [place] [facility] Atorvastati Atorvastati Yes [place] 1 tablet Common n Calcium n Calcium Casi S [facility] Multivitami Multivitami Yes [place] as Common n n Casi directed [facility] Magnesium Magnesium Yes [place] 1 tablet Common [place] with a Spirit meal [facility] Turmeric Turmeric Yes [place] as Common Curcumin Curcumin Casi directed [facility] Probiotic Probiotic Yes [place] as Comm on Casi directed [facility] Potassium Potassium Yes [place] 1 tablet Common Bicarb-Citr Bicarb-Citr Casi Spirit ic Acid ic Acid - [facility] Levothyroxi Levothyroxi Yes [place] 1 tablet Common ne Sodium ne Sodium Casi on an Spirit empty - [facility] stomach in [facility] Super B Super B Yes [place] as Common Complex Complex Casi directed [facility] Gabapentin Gabapentin Yes [place] 1 capsule Common [place] [facility] Clonazepam Clonazepam Yes [place] 1 tablet Common Casi at bedtime Spiri t [facility] Fiber Fiber Yes [place] as Common Formula Formula [place] directed [facility] Fish Oil Fish Oil Yes [place] 1 capsule C ommon Casi [facility] Immunizations Ordered Filled Immunization Date Status Comments [facility] e Immunization Name Name Influenza Virus 2020-04-03 Completed [facility] Influenza Virus 2020-04-03 Completed [facility]:00:00 [facility] Influenza Virus 2020-04-03 Completed [facility] Vaccine 00[facility]00:00 [facility] Influenza Virus 2020-04-03 Completed [facility] Vaccine 00:00:00 [facility] Influenza Virus 2020-04-03 Completed [facility] Vaccine 00:00:00 [facility] Influenza Virus 2020-04-03 Completed [facility] Vaccine 00:00:00 [facility] Influenza Hd 2020-03-20 Completed [facility] 00:00:00 Medicine Influenza Hd 2020-03-20 Completed [facility] 00:00:00 Medicine Influenza Hd 2020-03-20 Completed [facility] Colle ge of 00:00:00 Medicine Influenza Hd 2020-03-20 Completed [facility] Colle ge of 00:00:00 Medicine Influenza Hd 2020-03-20 Completed [facility] Colle ge of 00:00:00 Medicine Influenza Hd 2020-03-20 Completed [facility] Colle ge of 00:00:00 Medicine Influenza Hd 2020-03-20 Completed [facility] Colle ge of 00:00:00 Medicine Influenza Hd 2020-03-20 Completed [facility] 00:00:00 Medicine Influenza Hd 2020-03-20 Completed [facility] Colle ge of 00:00:00 Medicine Influenza Hd 2020-03-20 Completed [facility] 00:00:00 Medicine Influenza Hd 2020-03-20 Completed [facility] Colle ge of 00:00:00 Medicine Influenza Hd [...] kg Systolic blood 2022-02-18 20:40:00 150 mm[Hg] [facility] of pressure Medicine Diastolic blood 2022-02-18 20:40:00 86 mm[Hg] [facility] Medicine Heart rate 2022-02-18 20:40:00 50 /min [facility] Body temperature 2022-02-18 20:40:00 36.56 Ilana [facility] Respiratory rate 2022-02-18 20:40:00 20 /min [facility] Body height 2022-02-18 20:40:00 157.5 cm [facility] Body weight 2022-02-18 20:40:00 66.679 kg [facility] BMI 2022-02-18 20:40:00 26.89 kg/m2 [facility] Systolic blood 2022-02-14 16:26:00 164 mm[Hg] [facility] pressure Medicine Diastolic blood 2022-02-14 16:26:00 84 mm[Hg] [facility] Medicine Heart rate 2022-02-14 16:26:00 70 /min [facility] Body height 2022-02-14 16:26:00 157.5 cm [facility] Body weight 2022-02-14 16:26:00 67.042 kg [facility] BMI 2022-02-14 16:26:00 27.03 kg/m2 [facility] Systolic blood 2021-11-15 15:37:00 129 mm[Hg] [facility] pressure Medicine Diastolic blood 2021-11-15 15:37:00 85 mm[Hg] [facility] pressure Medicine Heart rate 2021-11-15 15:37:00 61 /min [facility] Body temperature 2021-11-15 15:37:00 36.72 Ilana [facility] Body height 2021-11-15 15:37:00 160 cm [facility] Body weight 2021-11-15 15:37:00 65.499 kg [facility] BMI 2021-11-15 15:37:00 25.58 kg/m2 [facility] Systolic blood 2021-09-17 21:03:00 147 mm[Hg] [facility] pressure Medicine Diastolic blood 2021-09-17 21:03:00 82 mm[Hg] [facility] pressure Medicine Heart rate 2021-09-17 21:03:00 56 /min [facility] Systolic blood 2021-08-16 16:09:00 133 mm[Hg] [facility] pressure Medicine Diastolic blood 2021-08-16 16:09:00 78 mm[Hg] [facility] Medicine Heart rate 2021-08-16 16:09:00 69 /min [facility] Body temperature 2021-08-16 16:09:00 36.67 Ilana [facility] Respiratory rate 2021-08-16 16:09:00 18 /min [facility] Body height 2021-08-16 16:09:00 160 cm [facility] Body weight 2021-08-16 16:09:00 62.869 kg [facility] BMI 2021-08-16 16:09:00 24.55 kg/m2 [facility] Systolic blood 2021-08-08 16:55:00 139 mm[Hg] [facility] pressure Medicine Diastolic blood 2021-08-08 16:55:00 94 mm[Hg] [facility] Medicine Heart rate 2021-08-08 16:55:00 57 /min [facility] Body temperature 2021-08-08 16:55:00 36.83 Ilana [facility] Body height 2021-08-08 16:55:00 160 cm [facility] Body weight 2021-08-08 16:55:00 63.05 kg [facility] BMI 2021-08-08 16:55:00 24.62 kg/m2 [facility] Systolic blood 2021-05-07 19:35:00 145 mm[Hg] [facility] pressure Medicine Diastolic blood 2021-05-07 19:35:00 83 mm[Hg] [facility] pressure Medicine Heart rate 2021-05-07 19:35:00 86 /min [facility] Body temperature 2021-05-07 19:35:00 36.78 Ilana [facility] Body height 2021-05-07 19:35:00 160 cm [facility] Body weight 2021-05-07 19:35:00 61.236 kg [facility] Medicine BMI 2021-05-07 19:35:00 23.91 kg/m2 [facility] Medicine Systolic blood 2021-01-29 17:28:00 122 mm[Hg] [facility] pressure Medicine Diastolic blood 2021-01-29 17:28:00 78 mm[Hg] [facility] pressure Medicine Heart rate 2021-01-29 17:28:00 78 /min [facility] Medicine Body temperature 2021-01-29 17:28:00 36.11 Ilana [facility] Body height 2021-01-29 17:28:00 157.5 cm [facility] Body weight 2021-01-29 17:28:00 64.32 kg [facility] BMI 2021-01-29 17:28:00 25.94 kg/m2 [facility] Systolic blood 2021-01-29 18:24:00 110 mm[Hg] [facility] pressure Medicine Diastolic blood 2021-01-29 18:24:00 77 mm[Hg] [facility] of pressure Medicine Heart rate 2021-01-29 18:24:00 58 /min [facility] Body height 2021-01-29 18:24:00 160 cm [facility] Body weight 2021-01-29 18:24:00 63.957 kg [facility] BMI 2021-01-29 18:24:00 24.98 kg/m2 [facility] Systolic blood 2020-12-18 20:25:00 142 mm[Hg] [facility] of pressure Medicine Diastolic blood 2020-12-18 20:25:00 95 mm[Hg] [facility] of pressure Medicine Heart rate 2020-12-18 20:25:00 78 /min [facility] Medicine Body height 2020-12-18 20:25:00 157.5 cm [facility] Medicine Body weight 2020-12-18 20:25:00 62.143 kg [facility] Medicine BMI 2020-12-18 20:25:00 25.06 kg/m2 [facility] Medicine Systolic blood 2020-11-15 16:09:00 131 mm[Hg] [facility] of pressure Medicine Diastolic blood 2020-11-15 16:09:00 89 mm[Hg] [facility] pressure Medicine Heart rate 2020-11-15 16:09:00 64 /min [facility] Medicine Body height 2020-11-15 16:09:00 157.5 cm [facility] Medicine Body weight 2020-11-15 16:09:00 62.143 kg [facility] Medicine BMI 2020-11-15 16:09:00 25.06 kg/m2 [facility] Systolic blood 2020-10-26 16:41:00 139 mm[Hg] [facility] pressure Medicine Diastolic blood 2020-10-26 16:41:00 82 mm[Hg] [facility] pressure Medicine Heart rate 2020-10-26 16:41:00 54 /min [facility] Body temperature 2020-10-26 16:41:00 36.44 Ilana [facility] Respiratory rate 2020-10-26 16:41:00 20 /min [facility] Body height 2020-10-26 16:41:00 157.5 cm [facility] Body weight 2020-10-26 16:41:00 62.415 kg [facility] BMI 2020-10-26 16:41:00 25.17 kg/m2 [facility] Systolic blood 2020-09-07 21:00:00 139 mm[Hg] [facility] pressure Medicine Diastolic blood 2020-09-07 21:00:00 82 mm[Hg] [facility] of pressure Medicine Heart rate 2020-09-07 21:00:00 62 /min [facility] Medicine Body height 2020-09-07 21:00:00 157.5 cm [facility] Body weight 2020-09-07 21:00:00 59.875 kg [facility] Medicine BMI 2020-09-07 21:00:00 24.14 kg/m2 [facility] Medicine Systolic blood 2020-08-02 16:01:00 122 mm[Hg] [facility] pressure Medicine Diastolic blood 2020-08-02 16:01:00 80 mm[Hg] [facility] of pressure Medicine Heart rate 2020-08-02 16:01:00 82 /min [facility] Medicine Body height 2020-08-02 16:01:00 157.5 cm [facility] Medicine Body weight 2020-08-02 16:01:00 60.328 kg [facility] BMI 2020-08-02 16:01:00 24.33 kg/m2 [facility] Systolic blood 2020-07-27 17:29:00 157 mm[Hg] [facility] of pressure Medicine Diastolic blood 2020-07-27 17:29:00 97 mm[Hg] [facility] pressure Medicine Heart rate 2020-07-27 17:29:00 66 /min [facility] Body temperature 2020-07-27 17:29:00 36.72 Ilana [facility] Body height 2020-07-27 17:29:00 157.5 cm [facility] Body weight 2020-07-27 17:29:00 59.33 kg [facility] BMI 2020-07-27 17:29:00 23.92 kg/m2 [facility] Systolic blood 2020-06-07 14:20:00 147 mm[Hg] [facility] pressure Medicine Diastolic blood 2020-06-07 14:20:00 96 mm[Hg] [facility] pressure Medicine Heart rate 2020-06-07 14:20:00 93 /min [facility] Body height 2020-06-07 14:20:00 157.5 cm [facility] Medicine Body weight 2020-06-07 14:20:00 67.132 kg [facility] BMI 2020-06-07 14:20:00 27.07 kg/m2 [facility] Medicine Systolic blood 2020-06-07 14:20:00 147 mm[Hg] [facility] pressure Medicine Diastolic blood 2020-06-07 14:20:00 96 mm[Hg] [facility] pressure Medicine Heart rate 2020-06-07 14:20:00 93 /min [facility] Medicine Body height 2020-06-07 14:20:00 157.5 cm [facility] Medicine Body weight 2020-06-07 14:20:00 67.132 kg [facility] BMI 2020-06-07 14:20:00 27.07 kg/m2 [facility] Systolic blood 2020-05-15 19:46:00 160 mm[Hg] [facility] of pressure Medicine Diastolic blood 2020-05-15 19:46:00 84 mm[Hg] [facility] of pressure Medicine Heart rate 2020-05-15 19:46:00 78 /min [facility] Body temperature 2020-05-15 19:46:00 36.83 Ilana [facility] Systolic blood 2020-05-15 19:46:00 160 mm[Hg] [facility] pressure Medicine Diastolic blood 2020-05-15 19:46:00 84 mm[Hg] [facility] pressure Medicine Heart rate 2020-05-15 19:46:00 78 /min [facility] Body temperature 2020-05-15 19:46:00 36.83 Ilana [facility] Systolic blood 2020-04-27 19:35:00 143 mm[Hg] [facility] of pressure Medicine Diastolic blood 2020-04-27 19:35:00 83 mm[Hg] [facility] pressure Medicine Heart rate 2020-04-27 19:35:00 60 /min [facility] Body temperature 2020-04-27 19:35:00 36.78 Ilana [facility] Body height 2020-04-27 19:35:00 157.5 cm [facility] Body weight 2020-04-27 19:35:00 70.035 kg [facility] BMI 2020-04-27 19:35:00 28.24 kg/m2 [facility] Systolic blood 2020-04-27 19:35:00 143 mm[Hg] [facility] of pressure Medicine Diastolic blood 2020-04-27 19:35:00 83 mm[Hg] [facility] pressure Medicine Heart rate 2020-04-27 19:35:00 60 /min [facility] Body temperature 2020-04-27 19:35:00 36.78 Ilana [facility] Body height 2020-04-27 19:35:00 157.5 cm [facility] Body weight 2020-04-27 19:35:00 70.035 kg [facility] BMI 2020-04-27 19:35:00 28.24 kg/m2 [facility] Medicine Systolic blood 2020-02-28 16:22:00 134 mm[Hg] [facility] of pressure Medicine Diastolic blood 2020-02-28 16:22:00 78 mm[Hg] [facility] Medicine Heart rate 2020-02-28 16:22:00 63 /min [facility] Body temperature 2020-02-28 16:22:00 36.83 Ilana [facility] Body height 2020-02-28 16:22:00 157.5 cm [facility] Body weight 2020-02-28 16:22:00 73.573 kg [facility] BMI 2020-02-28 16:22:00 29.67 kg/m2 [facility] Systolic blood 2020-02-28 16:22:00 134 mm[Hg] [facility] Medicine Diastolic blood 2020-02-28 16:22:00 78 mm[Hg] [facility] Medicine Heart rate 2020-02-28 16:22:00 63 /min [facility] Body temperature 2020-02-28 16:22:00 36.83 Ilana [facility] Body height 2020-02-28 16:22:00 157.5 cm [facility] Body weight 2020-02-28 16:22:00 73.573 kg [facility] BMI 2020-02-28 16:22:00 29.67 kg/m2 [facility] HEIGHT 2020-01-23 00:00:00 157.5 cm WEIGHT 2020-01-23 00:00:00 68.493 kg HEIGHT 2020-01-12 00:00:00 157.5 cm WEIGHT 2020-01-12 00:00:00 68.901 kg Systolic blood 2020-01-17 13:44:00 124 mm[Hg] [facility] of pressure Medicine Diastolic blood 2020-01-17 13:44:00 78 mm[Hg] [facility] pressure Medicine Heart rate 2020-01-17 13:44:00 71 /min [facility] Body temperature 2020-01-17 13:44:00 36.56 Ilana [facility] Body height 2020-01-17 13:44:00 157.5 cm [facility] Body weight 2020-01-17 13:44:00 70.308 kg [facility] BMI 2020-01-17 13:44:00 28.35 kg/m2 [facility] Medicine Systolic blood 2020-01-17 13:44:00 124 mm[Hg] [facility] of pressure Medicine Diastolic blood 2020-01-17 13:44:00 78 mm[Hg] [facility] of pressure Medicine Heart rate 2020-01-17 13:44:00 71 /min [facility] Medicine Body temperature 2020-01-17 13:44:00 36.56 Ilana [facility] Body height 2020-01-17 13:44:00 157.5 cm [facility] Body weight 2020-01-17 13:44:00 70.308 kg [facility] Medicine BMI 2020-01-17 13:44:00 28.35 kg/m2 [facility] Medicine Systolic blood 2020-01-10 13:38:00 126 mm[Hg] [facility] of pressure Medicine Diastolic blood 2020-01-10 13:38:00 78 mm[Hg] [facility] of pressure Medicine Heart rate 2020-01-10 13:38:00 79 /min [facility] Body temperature 2020-01-10 13:38:00 36.61 Ilana [facility] Body height 2020-01-10 13:38:00 157.5 cm [facility] Body weight 2020-01-10 13:38:00 70.58 kg [facility] BMI 2020-01-10 13:38:00 28.46 kg/m2 [facility] Medicine Systolic blood 2020-01-10 13:38:00 126 mm[Hg] [facility] of pressure Medicine Diastolic blood 2020-01-10 13:38:00 78 mm[Hg] [facility] of pressure Medicine Heart rate 2020-01-10 13:38:00 79 /min [facility] Body temperature 2020-01-10 13:38:00 36.61 Ilana [facility] Body height 2020-01-10 13:38:00 157.5 cm [facility] Body weight 2020-01-10 13:38:00 70.58 kg [facility] BMI 2020-01-10 13:38:00 28.46 kg/m2 [facility] Systolic blood 2020-01-06 18:05:00 146 mm[Hg] [facility] of pressure Medicine Diastolic blood 2020-01-06 18:05:00 91 mm[Hg] [facility] of pressure Medicine Heart rate 2020-01-06 18:05:00 68 /min [facility] Body temperature 2020-01-06 18:05:00 36.78 Ilana [facility] Body height 2020-01-06 18:05:00 157.5 cm [facility] Body weight 2020-01-06 18:05:00 71.668 kg [facility] BMI 2020-01-06 18:05:00 28.90 kg/m2 [facility] Systolic blood 2020-01-06 18:05:00 146 mm[Hg] [facility] of pressure Medicine Diastolic blood 2020-01-06 18:05:00 91 mm[Hg] [facility] of pressure Medicine Heart rate 2020-01-06 18:05:00 68 /min [facility] Body temperature 2020-01-06 18:05:00 36.78 Ilana [facility] Body height 2020-01-06 18:05:00 157.5 cm [facility] Body weight 2020-01-06 18:05:00 71.668 kg [facility] BMI 2020-01-06 18:05:00 28.90 kg/m2 [facility] Body height 2019-12-14 14:05:00 157.5 cm [facility] Body weight 2019-12-14 14:05:00 70.308 kg [facility] BMI 2019-12-14 14:05:00 28.35 kg/m2 [facility] Body height 2019-12-14 14:05:00 157.5 cm [facility] Body weight 2019-12-14 14:05:00 70.308 kg [facility] BMI 2019-12-14 14:05:00 28.35 kg/m2 [facility] Systolic blood 2019-12-13 15:31:00 143 mm[Hg] [facility] pressure Medicine Diastolic blood 2019-12-13 15:31:00 91 mm[Hg] [facility] pressure Medicine Heart rate 2019-12-13 15:31:00 80 /min [facility] Respiratory rate 2019-12-13 15:31:00 16 /min [facility] Body height 2019-12-13 15:31:00 157.5 cm [facility] Body weight 2019-12-13 15:31:00 70.761 kg [facility] BMI 2019-12-13 15:31:00 28.53 kg/m2 [facility] Oxygen saturation in 2019-12-13 15:31:00 98 /min [facility] Arterial blood by [facility] Pulse oximetry Systolic blood 2019-12-13 15:31:00 143 mm[Hg] [facility] pressure Medicine Diastolic blood 2019-12-13 15:31:00 91 mm[Hg] [facility] of pressure Medicine Heart rate 2019-12-13 15:31:00 80 /min [facility] Respiratory rate 2019-12-13 15:31:00 16 /min [facility] Body height 2019-12-13 15:31:00 157.5 cm [facility] Body weight 2019-12-13 15:31:00 70.761 kg [facility] BMI 2019-12-13 15:31:00 28[facility]53 [facility] 2019-12-13 15:31:00 98 /min [facility] Arterial blood by [facility] Pulse oximetry Systolic blood 2019-12-06 14:09:00 152 mm[Hg] [facility] pressure Medicine Diastolic blood 2019-12-06 14:09:00 82 mm[Hg] [facility] of pressure Medicine Heart rate 2019-12-06 14:09:00 64 /min [facility] Body temperature 2019-12-06 14:09:00 36.5 Ilana [facility] Body height 2019-12-06 14:09:00 157.5 cm [facility] Body weight 2019-12-06 14:09:00 71.94 kg [facility] BMI 2019-12-06 14:09:00 29.01 kg/m2 [facility] Systolic blood 2019-12-06 14:09:00 152 mm[Hg] [facility] of pressure Medicine Diastolic blood 2019-12-06 14:09:00 82 mm[Hg] [facility] of pressure Medicine Heart rate 2019-12-06 14:09:00 64 /min [facility] Body temperature 2019-12-06 14:09:00 36.5 Ilana [facility] Body height 2019-12-06 14:09:00 157.5 cm [facility] Body weight 2019-12-06 14:09:00 71.94 kg [facility] BMI 2019-12-06 14:09:00 29.01 kg/m2 [facility] Systolic blood 2019-11-22 14:39:00 137 mm[Hg] [facility] of pressure Medicine Diastolic blood 2019-11-22 14:39:00 70 mm[Hg] [facility] of pressure Medicine Heart rate 2019-11-22 14:39:00 55 /min [facility] Body temperature 2019-11-22 14:39:00 36.61 Ilana [facility] Body height 2019-11-22 14:39:00 157.5 cm [facility] Medicine Body weight 2019-11-22 14:39:00 71.124 kg [facility] BMI 2019-11-22 14:39:00 28.68 kg/m2 [facility] Systolic blood 2019-11-22 14:39:00 137 mm[Hg] [facility] of pressure Medicine Diastolic blood 2019-11-22 14:39:00 70 mm[Hg] [facility] of pressure Medicine Heart rate 2019-11-22 14:39:00 55 /min [facility] Body temperature 2019-11-22 14:39:00 36.61 Ilana [facility] [place] [facility] Body height 2019-11-22 14:39:00 157.5 cm [facility] Body weight 2019-11-22 14:39:00 71.124 kg [facility] BMI 2019-11-22 14:39:00 28.68 kg/m2 [facility] Systolic blood 2019-11-08 14:07:00 144 mm[Hg] [facility] of pressure Medicine Diastolic blood 2019-11-08 14:07:00 85 mm[Hg] [facility] of pressure Medicine Heart rate 2019-11-08 14:07:00 58 /min [facility] Body temperature 2019-11-08 14:07:00 36.44 Ilana [facility] [place] [facility] Body height 2019-11-08 14:07:00 157.5 cm [facility] Body weight 2019-11-08 14:07:00 71.578 kg [facility] BMI 2019-11-08 14:07:00 28.86 kg/m2 [facility] Systolic blood 2019-11-08 14:07:00 144 mm[Hg] [facility] of pressure Medicine Diastolic blood 2019-11-08 14:07:00 85 mm[Hg] [facility] of pressure Medicine Heart rate 2019-11-08 14:07:00 58 /min [facility] Body temperature 2019-11-08 14:07:00 36.44 Ilana [facility] Body height 2019-11-08 14:07:00 157.5 cm [facility] Body weight 2019-11-08 14:07:00 71.578 kg [facility] BMI 2019-11-08 14:07:00 28.86 kg/m2 [facility] Body weight 2019-10-25 17:38:00 70.171 kg [facility] BMI 2019-10-25 17:38:00 28.30 kg/m2 [facility] Systolic blood 2019-10-25 17:38:00 154 mm[Hg] [facility] of pressure Medicine Diastolic blood 2019-10-25 17:38:00 86 mm[Hg] [facility] pressure Medicine Heart rate 2019-10-25 17:38:00 52 /min [facility] Body temperature 2019-10-25 17:38:00 36.56 Ilana [facility] Respiratory rate 2019-10-25 17:38:00 18 /min [facility] Body height 2019-10-25 17:38:00 157.5 cm [facility] Body weight 2019-10-25 17:38:00 70.171 kg [facility] BMI 2019-10-25 17:38:00 28.30 kg/m2 [facility] Systolic blood 2019-10-25 17:38:00 154 mm[Hg] [facility] of pressure Medicine Diastolic blood 2019-10-25 17:38:00 86 mm[Hg] [facility] Medicine Heart rate 2019-10-25 17:38:00 52 /min [facility] Body temperature 2019-10-25 17:38:00 36.56 Ilana [facility] Respiratory rate 2019-10-25 17:38:00 18 /min [facility] Body height 2019-10-25 17:38:00 157.5 cm [facility] Systolic blood 2019-10-04 20:10:00 142 mm[Hg] [facility] of pressure Medicine Diastolic blood 2019-10-04 20:10:00 89 mm[Hg] [facility] of pressure Medicine Heart rate 2019-10-04 20:10:00 58 /min [facility] Body temperature 2019-10-04 20:10:00 36.56 Ilana [facility] Respiratory rate 2019-10-04 20:10:00 18 /min [facility] Body height 2019-10-04 20:10:00 160 cm [facility] Body weight 2019-10-04 20:10:00 71.668 kg [facility] BMI 2019-10-04 20:10:00 27.99 kg/m2 [facility] Systolic blood 2019-10-04 20:10:00 142 mm[Hg] [facility] Medicine Diastolic blood 2019-10-04 20:10:00 89 mm[Hg] [facility] Heart rate 2019-10-04 20:10:00 58 /min [facility] Body temperature 2019-10-04 20:10:00 36.56 Ilana [facility] Respiratory rate 2019-10-04 20:10:00 18 /min [facility] Body height 2019-10-04 20:10:00 160 cm [facility] Body weight 2019-10-04 20:10:00 71.668 kg [facility] BMI 2019-10-04 20:10:00 27.99 kg/m2 [facility] Systolic blood 2022-03-18 15:00:00 134 mm[Hg] [facility] Diastolic blood 2022-03-18 15:00:00 73 mm[Hg] [facility] Heart rate 2022-03-18 15:00:00 57 /min [facility] Respiratory rate 2022-03-18 15:00:00 12 /min [facility] Oxygen saturation in 2022-03-18 15:00:00 98 /min [facility] Arterial blood by Medical Ce nter Pulse oximetry Body temperature 2022-03-18 10:37:00 36.17 Ilana [facility] Body height 2022-03-18 10:37:00 157.5 cm [facility] Body weight 2022-03-18 10:37:00 64.4 kg [facility] BMI 2022-03-18 10:37:00 25.97 kg/m2 [facility] Systolic (mm Hg) 2021-05-23 15:05:00 [facility] Diastolic (mm Hg) 2021-05-23 15:05:00 [facility] [place] Heart Rate 2021-05-23 15:05:00 [facility] [place] Respitory Rate 2021-05-23 15:05:00 [facility] [place] Height 2021-05-23 15:05:00 157.48 cm [facility] [place] Weight 2021-05-23 15:05:00 [facility] [place] BMI Calculated 2021-05-23 15:05:00 [facility] [place] Diastolic (mm Hg) 2021-03-13 19:55:00 [facility] Heart Rate 2021-03-13 19:55:00 [facility] Respitory Rate 2021-03-13 19:55:00 [facility] [place] Height 2021-03-13 19:55:00 157.48 cm [facility] Weight 2021-03-13 19:55:00 [facility] BMI Calculated 2021-03-13 19:55:00 [facility] Systolic (mm Hg) 2021-03-13 19:55:00 [facility] [place] Systolic (mm Hg) 2021-02-01 16:23:00 [facility] Diastolic (mm Hg) 2021-02-01 16:23:00 [facility] [place] Heart Rate 2021-02-01 16:23:00 [facility] [place] Respitory Rate 2021-02-01 16:23:00 [facility] Systolic (mm Hg) 2021-01-09 14:27:00 [facility] [place] Diastolic (mm Hg) 2021-01-09 14:27:00 [facility] [place] Heart Rate 2021-01-09 14:27:00 [facility] [place] Respitory Rate 2021-01-09 14:27:00 [facility] Height 2021-01-09 14:27:00 157.48 cm [facility] Weight 2021-01-09 14:27:00 [facility] [place] BMI Calculated 2021-01-09 14:27:00 [facility] Systolic (mm Hg) 2020-11-06 19:09:00 [facility] [place] Diastolic (mm Hg) 2020-11-06 19:09:00 [facility] Heart Rate 2020-11-06 19:09:00 [facility] Respitory Rate 2020-11-06 19:09:00 [facility] Weight 2020-11-06 19:09:00 [facility] Systolic (mm Hg) 2020-09-05 19:20:00 [facility] [place] Diastolic (mm Hg) 2020-09-05 19:20:00 [facility] [place] Heart Rate 2020-09-05 19:20:00 [facility] Respitory Rate 2020-09-05 19:20:00 [facility] [place] Height 2020-09-05 19:20:00 160.02 cm [facility] Weight 2020-09-05 19:20:00 [facility] BMI Calculated 2020-09-05 19:20:00 [facility] Systolic (mm Hg) 2020-07-25 17:04:00 [facility] [place] Diastolic (mm Hg) 2020-07-25 17:04:00 [facility] [place] Heart Rate 2020-07-25 17:04:00 [facility] [place] Respitory Rate 2020-07-25 17:04:00 [facility] Height 2020-07-25 17:04:00 157.48 cm [facility] [place] Weight 2020-07-25 17:04:00 [facility] BMI Calculated 2020-07-25 17:04:00 [facility] [place] Weight 2020-06-21 19:55:00 [facility] BMI Calculated 2020-06-21 19:55:00 [facility] [place] Systolic (mm Hg) 2020-06-21 19:55:00 [facility] [place] Diastolic (mm Hg) 2020-06-21 19:55:00 [facility] Heart Rate 2020-06-21 19:55:00 [facility] Respitory Rate 2020-06-21 19:55:00 [facility] Height 2020-06-21 19:55:00 157.48 cm [facility] Systolic (mm Hg) 2020-05-10 19:02:00 [facility] Diastolic (mm Hg) 2020-05-10 19:02:00 [facility] Heart Rate 2020-05-10 19:02:00 [facility] [place] Respitory Rate 2020-05-10 19:02:00 [facility] Height 2020-05-10 19:02:00 157.48 cm [facility] Weight 2020-05-10 19:02:00 [facility] BMI Calculated 2020-05-10 19:02:00 [facility] [place] Systolic blood 2020-01-06 18:05:00 146 mm[Hg] [facility] pressure Medicine Diastolic blood 2020-01-06 18:05:00 91 mm[Hg] [facility] Medicine Heart rate 2020-01-06 18:05:00 68 /min [facility] Body temperature 2020-01-06 18:05:00 36.78 Ilana [facility] Body height 2020-01-06 18:05:00 157.5 cm [facility] Body weight 2020-01-06 18:05:00 71.668 kg [facility] BMI 2020-01-06 18:05:00 28.90 kg/m2 [facility] Respiratory rate 2020-01-04 15:16:00 16 /min [facility] Oxygen saturation in 2019-12-13 15:31:00 98 /min [facility] blood by [facility] Pulse oximetry Systolic (mm Hg) 2019-09-15 21:38:00 [facility] Diastolic (mm Hg) 2019-09-15 21:38:00 [facility] Heart Rate 2019-09-15 21:38:00 [facility] Respitory Rate 2019-09-15 21:38:00 [facility] [place] Height 2019-09-15 21:38:00 157.48 cm [facility] Weight 2019-09-15 21:38:00 [facility] [place] BMI Calculated 2019-09-15 21:38:00 [facility] [place] Systolic (mm Hg) 2019-08-18 20:52:00 [facility] [place] Diastolic (mm Hg) 2019-08-18 20:52:00 [facility] [place] Heart Rate 2019-08-18 20:52:00 [facility] [place] Respitory Rate 2019-08-18 20:52:00 [facility] [place] Height 2019-08-18 20:52:00 162.56 cm [facility] Weight 2019-08-18 20:52:00 [facility] [place] BMI Calculated 2019-08-18 20:52:00 [facility] Systolic (mm Hg) 2019-07-22 15:23:00 [facility] Diastolic (mm Hg) 2019-07-22 15:23:00 [facility] [place] Heart Rate 2019-07-22 15:23:00 [facility] [place] Respitory Rate 2019-07-22 15:23:00 [facility] Height 2019-07-22 15:23:00 157.48 cm [facility] Weight 2019-07-22 15:23:00 [facility] BMI Calculated 2019-07-22 15:23:00 [facility] [place] Systolic (mm Hg) 2019-07-07 20:51:00 [facility] [place] Diastolic (mm Hg) 2019-07-07 20:51:00 [facility] [place] Heart Rate 2019-07-07 20:51:00 [facility] Respitory Rate 2019-07-07 20:51:00 [facility] Height 2019-07-07 20:51:00 157.48 cm [facility] Weight 2019-07-07 20:51:00 [facility] BMI Calculated 2019-07-07 20:51:00 [facility] Systolic (mm Hg) 2019-03-03 20:11:00 [facility] [place] Diastolic (mm Hg) 2019-03-03 20:11:00 [facility] [place] Heart Rate 2019-03-03 20:11:00 [facility] [place] Respitory Rate 2019-03-03 20:11:00 [facility] [place] Height 2019-03-03 20:11:00 157.48 cm [facility] Weight 2019-03-03 20:11:00 [facility] BMI Calculated 2019-03-03 20:11:00 [facility] [place] Height 2019-02-02 19:56:00 160.02 cm [facility] Weight 2019-02-02 19:56:00 [facility] BMI Calculated 2019-02-02 19:56:00 [facility] [place] Systolic (mm Hg) 2019-02-02 19:56:00 [facility] Diastolic (mm Hg) 2019-02-02 19:56:00 [facility] Respitory Rate 2019-02-02 19:56:00 [facility] Heart Rate 2019-02-02 19:56:00 [facility] [place] Height 2018-12-17 20:37:00 160.02 cm [facility] BMI Calculated 2018-12-17 20:37:00 [facility] Weight 2018-12-17 20:37:00 [facility] Systolic (mm Hg) 2018-12-17 20:37:00 [facility] [place] Diastolic (mm Hg) 2018-12-17 20:37:00 [facility] [place] Heart Rate 2018-12-17 20:37:00 [facility] [place] Respitory Rate 2018-12-17 20:37:00 [facility] Height 2018-07-30 19:12:00 160.02 cm [facility] BMI Calculated 2018-07-30 19:12:00 [facility] [place] Weight 2018-07-30 19:12:00 [facility] [place] Systolic (mm Hg) 2018-07-30 19:12:00 [facility] Diastolic (mm Hg) 2018-07-30 19:12:00 [facility] [place] Respitory Rate 2018-07-30 19:12:00 [facility] Heart Rate 2018-07-30 19:12:00 [facility] BMI Calculated 2018-06-18 19:08:00 [facility] Height 2018-06-18 19:08:00 157.48 cm [facility] Weight 2018-06-18 19:08:00 [facility] [place] Systolic (mm Hg) 2018-06-18 19:08:00 [facility] [place] Diastolic (mm Hg) 2018-06-18 19:08:00 [facility] [place] Heart Rate 2018-06-18 19:08:00 [facility] Respitory Rate 2018-06-18 19:08:00 [facility] Procedures Procedure Date / Time Performing Clinician Source Performed IR CV ACCESS FLUORO 2022-03-18 15:21:00 Bird Yen [facility] POCT-GLUCOSE METER 2022-03-18 11:39:00 Bird Yen [facility] CBC W/PLT COUNT & AUTO 2022-03-18 11:37:[address] [facility] PROTHROMBIN TIME/INR 2022-03-18 11:37:00 Bird Yen [facility] CBC W/PLT COUNT & AUTO 2022-03-18 11:37:00 Bird Yen I [facility] CBC W/AUTO DIFF WITH 2022-02-17 12:14:34 [facility] PLATELETS [facility] COMPREHENSIVE METABOLIC 2022-02-17 12:14:34 [facility] MAGNESIUM 2022-02-17 12:14:34 [facility] VITAMIN B12 2022-02-17 12:14:34 [facility] TSH + FREE T4 PROFILE 2022-02-14 13:28:53 [facility] COMPREHENSIVE METABOLIC 2022-02-13 18:04:00 Omar Yen [facility] VITAMIN B12 2022-02-13 18:04:00 Omar Yen [facility] MAGNESIUM 2022-02-13 18:04:00 Omar Yen [facility] CBC W/AUTO DIFF WITH 2022-02-13 18:04:00 Omar Yen [facility] TSH + FREE T4 PROFILE 2022-02-13 18:04:00 Omar Yen [facility] CBC W/AUTO DIFF WITH 2022-02-13 13:04:00 [facility] COMPREHENSIVE METABOLIC 2022-02-13 13:04:00 [facility] MAGNESIUM 2022-02-13 13:04:00 [facility] VITAMIN B12 2022-02-13 13:04:00 [facility] TSH + FREE T4 PROFILE 2022-02-13 13:04:[address] [facility] [address] ABDOMEN/PELVIS WITH & 2022-02-04 11:15:00 Bird Yen [facility] WITHOUT IV CONTRAST [facility] er CT CHEST WITH IV CONTRAST 2022-02-04 11:15:00 Bird Yen [facility] COMPREHENSIVE METABOLIC 2021-11-15 16:07:00 YeOmar de los santos [facility] PANEL Medicine MAGNESIUM 2021-11-15 16:07:00 Yefiliberto, Omar Castano [facility] CBC W/AUTO DIFF WITH 2021-11-15 16:07:00 YeOmar de los santos [facility] PLATELETS Medicine CBC W/AUTO DIFF WITH 2021-11-15 11:07:00 [facility] PLATELETS Medicine COMPREHENSIVE METABOLIC 2021-11-15 11:07:00 [facility] PANEL Medicine MAGNESIUM 2021-11-15 11:07:00 [facility] VITAMIN B12 2021-11-15 11:07:00 [facility] CT ABDOMEN/PELVIS WITH IV 2021-10-29 13:15:00 Yen, [facility] CT CHEST WITH IV CONTRAST 2021-10-29 13:15:00 Yen, [facility] POCT URINALYSIS DIPSTICK 2021-08-08 00:00:00 Vita Jaimes [facility] CT CHEST WITH IV CONTRAST 2021-07-29 13:03:00 Yen, [facility] CT ABDOMEN/PELVIS WITH IV 2021-07-29 13:03:00 Yen, [facility] POCT-CREATININE 2021-07-29 12:50:00 Yen, [facility] CT ABDOMEN/PELVIS WITH IV 2021-05-03 11:22:00 Yen, [facility] CT CHEST WITH IV CONTRAST 2021-05-03 11:22:00 Yen, [facility] POCT-CREATININE 2021-05-03 11:04:00 Yen, [facility] EXTERNAL PROVIDER RECORDS 2020-10-05 05:01:00 Doctor Unassigned, [facility] BI SCREENING MAMMOGRAM 2020-07-19 18:09:33 Alec Foss [facility] US PELVIS COMPLETE WITH 2020-07-19 17:44:07 Alec Foss [facility] TRANSVAGINAL Medical Branch US HEAD NECK 2020-07-19 17:37:41 [facility] [place] [facility] ASSIGNMENT OF BENEFITS 2020-07-19 16:40:50 [facility] ASSIGNMENT OF BENEFITS 2020-06-25 19:52:55 Doctor Unassigned, Un [facility] POCT URINALYSIS DIPSTICK 2020-05-15 00:00:00 Vita Jaimes [facility] COMPREHENSIVE METABOLIC 2020-02-21 21:30:00 Vita Jaimes [facility] PANEL Medicine CBC W/AUTO DIFF WITH 2020-02-21 21:30:[address] [facility] PLATELETS Medicine XR LUMBAR SPINE 2 VIEWS AP 2020-01-06 20:56:[address] [facility] CBC W ABSOLUTE NEUTROPHIL 2019-12-20 05:00:00 Omar Yen [facility] COUNT Medicine COMPREHENSIVE METABOLIC 2019-12-20 05:00:00 Omar Yen [facility] PANEL Medicine MAGNESIUM 2019-12-20 05:00:00 Omar Yen [facility] MYOCARD PERFUSION - 2019-12-19 15:51:01 Manny Devlin [facility] LEXISCAN [facility] ECHO, COMPLETE 2019-12-19 13:44:45 Manny Devlin Deric [facility] EJECTION FRACTION RESULT 2019-12-19 00:00:00 ProviderMaggie [facility] ELECTROCARDIOGRAM COMPLETE 2019-12-13 18:09:26 Manny Devlin [facility] ELECTROCARDIOGRAM COMPLETE 2019-12-13 18:09:26 Manny Devlin [facility] CBC W/AUTO DIFF WITH 2019-12-06 14:22:00 Omar Yen [facility] PLATELETS Medicine COMPREHENSIVE METABOLIC 2019-12-06 14:22:00 Omar Yen [facility] PANEL Medicine MAGNESIUM 2019-12-06 14:22:00 [facility] CBC W ABSOLUTE NEUTROPHIL 2019-11-22 13:42:00 Yen, Omar Castano [facility] COMPREHENSIVE METABOLIC 2019-11-22 13:42:00 Yen, Franceslemuel Castano [facility] MAGNESIUM 2019-11-22 13:42:00 Yen, [facility] COMPREHENSIVE METABOLIC 2019-11-08 13:29:00 [facility] MAGNESIUM 2019-11-08 13:29:00 Yen, [facility] ANG,TUNNEL CATH,CENTRAL 2019-11-01 20:08:00 [facility], [facility] Medicine CBC W/AUTO DIFF WITH 2019-11-01 14:45:00 Farshad, kishore [facility] PROTIME-INR 2019-11-01 14:45:00 Mercy Garcia [facility] APTT 2019-11-01 14:45:00 Mercy Garcia [facility] CT CHEST W CONTRAST 2019-10-27 18:15:00 Vita Jaimes [facility] SURGICAL PATHOLOGY REPORT 2019-10-14 14:26:00 Vita Jaimes [facility] CT ABDOMEN PELVIS W WO 2019-10-12 20:47:00 Vita Jaimes [facility] CHEST 2 VIEWS 2019-10-12 20:12:00 Vita Jaimes [facility] POCT URINALYSIS DIPSTICK 2019-10-04 00:00:00 Vita Jaimes [facility] Plan of Care Planned Activity Planned Date Details Comments Source Future Scheduled 2022-08-17 CT CHEST ABDOMEN PELVIS Expected: [facility] Test 00:00:00 W/WO CONTRAST [[facility]20[facility] Expires: 02/14/2023 Future Scheduled 2022-03-20 INFLUENZA VACCINE (#1) [facility] Test 00:00:00 [code = INFLUENZA Medical Ce nter VACCINE (#1)] Future Scheduled 2022-03-20 INFLUENZA VACCINE (#1) [facility] Test 00:00:00 [code = INFLUENZA Medical Ce nter VACCINE (#1)] Future Scheduled 2022-03-20 INFLUENZA VACCINE (#1) [facility] Test 00:00:00 [code = INFLUENZA Medical Ce nter VACCINE (#1)] Future Scheduled 2022-02-18 COVID-19 Vaccine (#1) [employer] Test 15:40:57 [code = COVID-19 of Medicine Vaccine (#1)] Future Scheduled 2022-02-18 TETANUS SHOT (ADULT) [place] [employer] Test 15:40:57 [code = TETANUS SHOT of Medi cine (ADULT)] Future Scheduled 2022-02-18 BMI FOLLOW UP PLAN [employer] Test 15:40:57 [code = BMI FOLLOW UP of Med icine PLAN] Future Scheduled 2022-02-18 Hepatitis C screening [employer] Test 15:40:57 (procedure) [code = of Medic ine 331574477] Future Scheduled 2022-02-18 ZOSTER VACCINE (1 of 2) [facility] Test 15:40:57 [code = ZOSTER VACCINE of Me dicine (1 of 2)] Future Scheduled 2022-02-18 Screening for [facility] Test 15:40:57 osteoporosis of Medicine (procedure) [code = 395520337] Future Scheduled 2022-02-18 Pneumococcal 65+ (1 - [employer] Test 15:40:57 PCV) [code = of Medicine Pneumococcal 65+ (1 - PCV)] Future Scheduled 2022-02-18 MEDICARE AWV (Initial) [employer] Test 15:40:57 [code = MEDICARE AWV of Medi Snapshot Interactive (Initial)] Future Scheduled 2022-02-18 FLU VACCINE > 6 MONTHS [employer] Test 15:40:57 [code = FLU VACCINE > 6 of M edicine MONTHS] Future Scheduled 2022-02-18 FALL SCREEN [code = [employer] Test 15:40:57 FALL SCREEN] of Medicine Future Scheduled 2022-02-17 CBC W/AUTO DIFF WITH Ordered: [place] [employer] Test 12:14:34 PLATELETS [code = 02/17/2022 of Medicin e 92919-4] Future Scheduled 2022-02-17 COMPREHENSIVE METABOLIC Ordered: [facility] [employer] Test 12:14:34 PANEL [code = 69385-0] 02/17/2022 of Me dicine Future Scheduled 2022-02-17 MAGNESIUM [code = Ordered: [facility] Test 12:14:34 89352-9] 02/17/2022 of Medicine Future Scheduled 2022-02-17 VITAMIN B12 [code = Ordered: [employer] Test 12:14:34 2-9] 02/17/2022 of Medicine Future Scheduled 2022-02-17 COVID-19 Vaccine (#1) [employer] Test 12:10:01 [code = COVID-19 of Medicine Vaccine (#1)] Future Scheduled 2022-02-17 TETANUS SHOT (ADULT) [place] Test 12:10:01 [code = TETANUS SHOT of Medi cine (ADULT)] Future Scheduled 2022-02-17 BMI FOLLOW UP PLAN [employer] Test 12:10:01 [code = BMI FOLLOW UP of Med icine PLAN] Future Scheduled 2022-02-17 Hepatitis C screening [facility] Test 12:10:01 (procedure) [code = of Medic ine [id number]] Future Scheduled 2022-02-17 ZOSTER VACCINE (1 of 2) [facility] [employer] Test 12:10:01 [code = ZOSTER VACCINE of Me dicine (1 of 2)] Future Scheduled 2022-02-17 Screening for [facility] [employer] Test 12:10:01 osteoporosis of Medicine (procedure) [code = [id number]] Future Scheduled 2022-02-17 Pneumococcal 65+ (1 - [employer] [facility] 12:10:01 PCV) [code = of Medicine Pneumococcal 65+ (1 - PCV)] Future Scheduled 2022-02-17 MEDICARE AWV (Initial) [employer] [facility] 12:10:01 [code = MEDICARE AWV of Medi cine (Initial)] Future Scheduled 2022-02-17 FLU VACCINE > 6 MONTHS [employer] [facility] 12:10:01 [code = FLU VACCINE > 6 of M edicine MONTHS] Future Scheduled 2022-02-17 FALL SCREEN [code = [employer] [facility] 12:10:01 FALL SCREEN] of Medicine Future Scheduled 2022-02-14 IR FLUROSCOPY GUIDED 1 Occurrences [employer] Test 12:55:29 CENTRAL VENOUS ACCESS starting of Med icine DEVICE REMOVAL [code = 02/14/2022 until 41019] 02/14/2023 Future Scheduled 2022-02-07 CT CHEST ABDOMEN PELVIS Expected: [facility] [employer] Test 00:00:00 W/WO CONTRAST [code = 02/07/2022, of Med icine 42437] Expires: 11/15/2022 Future Scheduled 2021-11-15 COVID-19 Vaccine (1) [place] [employer] [facility] 11:04:13 [code = COVID-19 of Medicine Vaccine (1)] Future Scheduled 2021-11-15 TETANUS SHOT (ADULT) [place] [employer] Test 11:04:13 [code = TETANUS SHOT of Medi cine (ADULT)] Future Scheduled 2021-11-15 BMI FOLLOW UP PLAN [employer] [facility] 11:04:13 [code = BMI FOLLOW UP of Med icine PLAN] Future Scheduled 2021-11-15 Hepatitis C screening [facility] [employer] Test 11:04:13 (procedure) [code = of Medic ine 840882031] Future Scheduled 2021-11-15 ZOSTER VACCINE (1 of 2) [facility] [employer] Test 11:04:13 [code = ZOSTER VACCINE of Me dicine (1 of 2)] Future Scheduled 2021-11-15 Screening for [facility] [employer] Test 11:04:13 osteoporosis of Medicine (procedure) [code = 387937202] Future Scheduled 2021-11-15 Pneumococcal 65+ ([facility] 11:04:13 1 - PPSV23) [code = of Medic ine Pneumococcal 65+ (1 of 1 - PPSV23)] Future Scheduled 2021-11-15 [facility] 11:04:13 [code = MEDICARE AWV of Medi cine (Initial)] Future Scheduled 2021-11-15 FLU VACCINE > 6 MONTHS [employer] [facility] 11:04:13 [code = FLU VACCINE > 6 of M edicine MONTHS] Future Scheduled 2021-11-15 FALL SCREEN [code = [employer] 11:04:13 FALL SCREEN] of Medicine Future Scheduled 2021-11-15 VITAMIN B12 [code = [employer] 10:51:45 2131-] of Medicine Future Scheduled 2021-09-17 COVID-19 Vaccine (1) [place] [employer] [facility] 10:05:09 [code = COVID-19 of Medicine Vaccine (1)] Future Scheduled 2021-09-17 TETANUS SHOT (ADULT) [place] [employer] [facility] 10:05:09 [code = TETANUS SHOT of Medi cine (ADULT)] Future Scheduled 2021-09-17 Hepatitis C screening [employer] [facility] 10:05:09 (procedure) [code = of Medic ine [id number]] Future Scheduled 2021-09-17 ZOSTER VACCINE (1 of 2) [facility] [employer] Test 10:05:09 [code = ZOSTER VACCINE of Me dicine (1 of 2)] Future Scheduled 2021-09-17 Screening for [facility] [employer] [facility] 10:05:09 osteoporosis of Medicine (procedure) [code = 255745909] Future Scheduled 2021-09-17 Pneumococcal 65+ (1 of [employer] 10:05:09 1 - PPSV23) [code = of Medic ine Pneumococcal 65+ (1 of 1 - PPSV23)] Future Scheduled 2021-09-17 MEDICARE AWV (Initial) [employer] 10:05:09 [code = MEDICARE AWV of Medi Snapshot Interactive (Initial)] Future Scheduled 2021-09-17 FLU VACCINE > 6 MONTHS [employer] [facility] 10:05:09 [code = FLU VACCINE > 6 of M edicine MONTHS] Future Scheduled 2021-09-17 FALL SCREEN [code = [employer] 10:05:09 FALL SCREEN] of Medicine Future Scheduled 2021-08-16 VITAMIN B12 [code = Ordered: [employer] 11:14:13 2132-9] 08/16/2021 of Medicine Future Scheduled 2021-08-16 CBC W/AUTO DIFF WITH Ordered: [employer] [facility] [employer] [facility] [employer] Test 11:14:13 PLATELETS [code = 08/16/2021 of Medicin e 59276-9] Future Scheduled 2021-08-16 COMPREHENSIVE METABOLIC Ordered: [facility] [employer] Test 11:14:13 PANEL [code = 21475-5] 08/16/2021 of Me dicine Future Scheduled 2021-08-16 CT CHEST ABDOMEN PELVIS 1 Occurrences [facility] [employer] Test 11:14:13 W CONTRAST [code = [place] [address]-7] 08/16/2021 until 08/16/2022 Future Scheduled 2021-08-16 Screening for malignant [facility] [employer] Test 10:09:14 neoplasm of colon of Medicin e (procedure) [code = 829329464] Future Scheduled 2021-08-16 COVID-19 Vaccine (1) [place] [employer] [facility] 10:09:14 [code = COVID-19 of Medicine Vaccine (1)] Future Scheduled 2021-08-16 TETANUS SHOT (ADULT) [place] [employer] [facility] 10:09:14 [code = TETANUS SHOT of Medi cine (ADULT)] Future Scheduled 2021-08-16 Hepatitis C screening [employer] [facility] 10:09:14 (procedure) [code = of Medic ine 716914641] Future Scheduled 2021-08-16 ZOSTER VACCINE (1 of 2) [employer] Test 10:09:14 [code = ZOSTER VACCINE of Al dicine (1 of 2)] Future Scheduled 2021-08-16 Screening for [facility] [employer] Test 10:09:14 osteoporosis of Medicine (procedure) [code = 995960005] Future Scheduled 2021-08-16 Pneumococcal 65+ (1 of [employer] 10:09:14 1 - PPSV23) [code [...] MONTHS] Future Scheduled 2021-08-16 Screening for malignant [facility] [employer] Test 10:09:14 neoplasm of breast of Medici ne (procedure) [code = 911562844] Future Scheduled 2021-08-16 FALL SCREEN [code = [employer] 10:09:14 FALL SCREEN] of Medicine Future Scheduled 2021-08-08 Screening for malignant [facility] [employer] Test 10:57:12 neoplasm of colon of Medicin e (procedure) [code = 763710895] Future Scheduled 2021-08-08 COVID-19 Vaccine (1) [place] [employer] 10:57:12 [code = COVID-19 of Medicine Vaccine (1)] Future Scheduled 2021-08-08 TETANUS SHOT (ADULT) [place] [employer] [facility] 10:57:12 [code = TETANUS SHOT of Medi cine (ADULT)] Future Scheduled 2021-08-08 Hepatitis C screening [employer] [facility] 10:57:12 (procedure) [code = of Medic ine 521064542] Future Scheduled 2021-08-08 ZOSTER VACCINE (1 of 2) [facility] [employer] Test 10:57:12 [code = ZOSTER VACCINE of Me dicine (1 of 2)] Future Scheduled 2021-08-08 FALL SCREEN [code = [employer] 10:57:12 FALL SCREEN] of Medicine Future Scheduled 2021-08-08 Screening for [employer] 10:57:12 osteoporosis of Medicine (procedure) [code = 824020744] Future Scheduled 2021-08-08 Pneumococcal 65+ (1 of [...] MONTHS] Future Scheduled 2021-08-08 Screening for malignant [facility] [employer] Test 10:57:12 neoplasm of breast of Medici ne (procedure) [code = 494203797] Future Scheduled 2021-08-08 CBC W/AUTO DIFF WITH Ordered: [facility] [employer] Test 10:54:25 PLATELETS [code = 08/08/2021 of Medicin e 15729-1] Future Scheduled 2021-08-08 COMPREHENSIVE METABOLIC Ordered: [facility] [employer] Test 10:54:25 PANEL [code = 42637-1] 08/08/2021 of Me dicine Future Scheduled 2021-08-08 VITAMIN B12 [code = Ordered: [facility] [employer] Test 10:54:25 2132-9] 08/08/2021 of Medicine Future Scheduled 2021-07-[address] [facility] Test 00:00:00 (12+) [code = Medical Center DEPRESSION SCREENING (12+)] Future Scheduled 2021-07-[address]K SCREENING [facility] Test 00:00:00 [code = FALLS RISK Medical C enter SCREENING] Future Scheduled 2021-07-[address] [facility] Test 00:00:00 (12+) [code = Medical Center DEPRESSION SCREENING (12+)] Future Scheduled 2021-07-20 FALLS RISK SCREENING [facility] Test 00:00:00 [code = FALLS RISK Medical C enter SCREENING] Future Scheduled 2021-07-[address] [facility] Test 00:00:00 (12+) [code = Medical Center DEPRESSION SCREENING (12+)] Future Scheduled 2021-07-20 F[address]S RISK SCREENING [facility] Test 00:00:00 [code = FALLS RISK Medical C enter SCREENING] Future Scheduled 2021-05-07 CT CHEST ABDOMEN PELVIS 1 Occurrences [facility] Test 14:59:03 W CONTRAST [code = [place] [address]-5] 05/07/2021 until 05/07/2022 Future Scheduled 2021-05-07 Screening for malignant [facility] Test 14:45:26 neoplasm of colon of Medicin e (procedure) [code = 476832829] Future Scheduled 2021-05-07 COVID-19 Vaccine (1) [facility] Test 14:45:26 [code = COVID-19 of Medicine Vaccine (1)] Future Scheduled 2021-05-07 TETANUS SHOT (ADULT) [facility] Test 14:45:26 [code = TETANUS SHOT of Medi cine (ADULT)] Future Scheduled 2021-05-07 Hepatitis C screening [facility] Test 14:45:26 (procedure) [code = of Medic ine 630357750] Future Scheduled 2021-05-07 ZOSTER VACCINE (1 of 2) [facility] Test 14:45:26 [code = ZOSTER VACCINE of Me dicine (1 of 2)] Future Scheduled 2021-05-07 FALL SCREEN [code = [employer] 14:45:26 FALL SCREEN] of Medicine Future Scheduled 2021-05-07 Screening for [employer] Test 14:45:26 osteoporosis of Medicine (procedure) [code = 054242084] Future Scheduled 2021-05-07 PNEUMOVAX >=65 (PPSV23) [facility] Test 14:45:26 [code = PNEUMOVAX >=65 of Me dicine (PPSV23)] Future Scheduled 2021-05-07 [facility] 14:45:26 [code = MEDICARE AWV of Medi cine (Initial)] Future Scheduled 2021-05-07 FLU VACCINE > 6 MONTHS [facility] 14:45:26 [code = FLU VACCINE > 6 of M edicine MONTHS] Future Scheduled 2021-05-07 Screening for malignant [facility] [employer] Test 14:45:26 neoplasm of breast of Medici ne (procedure) [code = 187949284] Future Scheduled 2021-05-01 CT CHEST ABDOMEN PELVIS Expected: [facility] Test 00:00:00 W CONTRAST [code = 05/01/2021[place] [address]-0] Expires: 01/29/2022 Future Scheduled 2021-03-[address] [facility] Test 00:00:00 WELLNESS (YEAR 2 or Medical Center FIRST YEAR if no IPPE) [code = MEDICARE ANNUAL WELLNESS (YEAR 2 or FIRST YEAR if no IPPE)] Future Scheduled 2021-03-[address] [facility] Test 00:00:00 WELLNESS (YEAR 2 or Medical Center FIRST YEAR if no IPPE) [code = MEDICARE ANNUAL WELLNESS (YEAR 2 or FIRST YEAR if no IPPE)] Future Scheduled 2021-03-[address] [facility] Test 00:00:00 WELLNESS (YEAR 2 or Medical Center FIRST YEAR if no IPPE) [code = MEDICARE ANNUAL WELLNESS (YEAR 2 or FIRST YEAR if no IPPE)] Future Scheduled 2021-01-29 Screening for malignant [facility] Test 14:20:34 neoplasm of colon of Medicin e (procedure) [code = 979755272] Future Scheduled 2021-01-29 COVID-19 Vaccine (1) [facility] Test 14:20:34 [code = COVID-19 of Medicine Vaccine (1)] Future Scheduled 2021-01-29 TETANUS SHOT (ADULT) [facility] Test 14:20:34 [code = TETANUS SHOT of Medi cine (ADULT)] Future Scheduled 2021-01-29 Hepatitis C screening [facility] Test 14:20:34 (procedure) [code = of Medic ine 429620103] Future Scheduled 2021-01-29 ZOSTER VACCINE (1 of 2) [facility] Test 14:20:34 [code = ZOSTER VACCINE of Me dicine (1 of 2)] Future Scheduled 2021-01-29 FALL SCREEN [code = [facility] [employer] Test 14:20:34 FALL SCREEN] of Medicine Future Scheduled 2021-01-29 Screening for [employer] Test 14:20:34 osteoporosis of Medicine (procedure) [code = 137581933] Future Scheduled 2021-01-29 PNEUMOVAX >=65 (PPSV23) [facility] [employer] Test 14:20:34 [code = PNEUMOVAX >=65 of Me dicine (PPSV23)] Future Scheduled 2021-01-29 [facility]IC[facility] 14:20:34 TO MEDICARE) [code = of Medi cine MEDICARE IPPE (WELCOME TO MEDICARE)] Future Scheduled 2021-01-29 FLU VACCINE > 6 MONTHS [employer] [facility] 14:20:34 [code = FLU VACCINE > 6 of M edicine MONTHS] Future Scheduled 2021-01-29 Screening for malignant [facility] [employer] Test 14:20:34 neoplasm of breast of Medici ne (procedure) [code = 356581106] Future Scheduled 2021-01-29 Screening for malignant [facility] Test 13:25:47 neoplasm of colon of Medicin e (procedure) [code = 323022487] Future Scheduled 2021-01-29 COVID-19 Vaccine (1) [facility] [employer] Test 13:25:47 [code = COVID-19 of Medicine Vaccine (1)] Future Scheduled 2021-01-29 TETANUS SHOT (ADULT) [facility] [employer] Test 13:25:47 [code = TETANUS SHOT of Medi cine (ADULT)] Future Scheduled 2021-01-29 BMI FOLLOW UP PLAN [facility] [employer] Test 13:25:47 [code = BMI FOLLOW UP of Med icine PLAN] Future Scheduled 2021-01-29 Hepatitis C screening [facility] Test 13:25:47 (procedure) [code = of Medic ine 668948634] Future Scheduled 2021-01-29 ZOSTER VACCINE (1 of 2) [facility] [employer] Test 13:25:47 [code = ZOSTER VACCINE of Me dicine (1 of 2)] Future Scheduled 2021-01-29 FALL SCREEN [code = [employer] [facility] 13:25:47 FALL SCREEN] of Medicine Future Scheduled 2021-01-29 Screening for [employer] Test 13:25:47 osteoporosis of Medicine (procedure) [code = 189979942] Future Scheduled 2021-01-29 PNEUMOVAX >=65 (PPSV23) [facility] [employer] Test 13:25:47 [code = PNEUMOVAX >=65 of Me dicine (PPSV23)] Future Scheduled 2021-01-29 MEDIC[facility]PE [facility] 13:25:47 TO MEDICARE) [code = of CoMentis cine MEDICARE IPPE (WELCOME TO MEDICARE)] Future Scheduled 2021-01-29 FLU VACCINE > 6 MONTHS [employer] [facility] 13:25:47 [code = FLU VACCINE > 6 of M edicine MONTHS] Future Scheduled 2021-01-29 Screening for malignant [facility] [employer] Test 13:25:47 neoplasm of breast of Medici ne (procedure) [code = 593368040] Future Scheduled 2021-01-29 CBC W/AUTO DIFF WITH Ordered: [facility] Test 12:59:23 PLATELETS [code = 01/29/2021 of Medicin e 29359-2] Future Scheduled 2021-01-29 COMPREHENSIVE METABOLIC Ordered: [facility] Test 12:59:23 PANEL [code = 32769-2] 01/29/2021 of Me dicine Future Scheduled 2021-01-29 MAGNESIUM [code = Ordered: [facility] Test 12:59:23 38436-9] 01/29/2021 of Medicine Future Scheduled 2021-01-29 VITAMIN B12 [code = Ordered: [facility] Test 12:59:23 2-9] 01/29/2021 of Medicine Future Scheduled 2020-12-18 Screening for malignant [facility] Test 15:26:17 neoplasm of colon of Medicin e (procedure) [code = 356383754] Future Scheduled 2020-12-18 COVID-19 Vaccine (1) [facility] Test 15:26:17 [code = COVID-19 of Medicine Vaccine (1)] Future Scheduled 2020-12-18 TETANUS SHOT (ADULT) [facility] Test 15:26:17 [code = TETANUS SHOT of Medi cine (ADULT)] Future Scheduled 2020-12-18 BMI FOLLOW UP PLAN [employer] [facility] 15:26:17 [code = BMI FOLLOW UP of Med icine PLAN] Future Scheduled 2020-12-18 [facility] 15:26:17 (procedure) [code = of Medic ine 722559299] Future Scheduled 2020-12-18 ZOSTER VACCINE (1 of 2) [facility] [employer] Test 15:26:17 [code = ZOSTER VACCINE of Me dicine (1 of 2)] Future Scheduled 2020-12-18 Screening for [facility] [employer] Test 15:26:17 osteoporosis of Medicine (procedure) [code = 527207150] Future Scheduled 2020-12-18 PNEUMOVAX >=65 (PPSV23) [facility] Test 15:26:17 [code = PNEUMOVAX >=65 of Me ramon (PPSV23)] Future Scheduled 2020-12-18 MEDICARE IPPE (WELCOME B [facility] Test 15:26:17 TO MEDICARE) [code = of [facility] Snapshot Interactive MEDICARE IPPE (WELCOME TO MEDICARE)] Future Scheduled 2020-12-18 FALL SCREEN [code = [facility] [place] Test 15:26:17 FALL SCREEN] of Medicine Future Scheduled 2020-12-18 FLU VACCINE > 6 MONTHS B [facility] Test 15:26:17 [code = FLU VACCINE > 6 of edicine MONTHS] Future Scheduled 2020-12-18 Screening for malignant [facility] Test 15:26:17 neoplasm of breast of Medici ne (procedure) [code = 871540060] Diagnostic Test 2020-10-25 CT CHEST [facility]OM[facility] W CONTRAST [code = 10/25/2020, [place] [address]-9] Expires: 07/27/2021 Diagnostic Test 2020-04-05 CT ABDOMEN PELVIS W WO Expected: [facility] Pending 00:00:00 CONTRAST [code = 04/05/2020, of Medicine 85230-7] Expires: 05/05/2020 Diagnostic Test 2019-12-13 MYOCARD PERFUSION - Expected: [facility] [place] Pending 00:00:00 LEXISCAN [code = 50115] 12/13/2019, of edicine Expires: 06/14/2021 Diagnostic Test 2019-12-13 ECHO, COMPLETE [code = Expected: [facility] Pending 00:00:00 56684] 12/13/2019, of Medicine Expires: 06/14/2020 Diagnostic Test 2019-11-01 IR PORT PLACEMENT EQUAL Expected: B [facility] Pending 00:00:00 OR > 5 YEARS [code = 11/01/2019, of [facility] 73573] Expires: 10/24/2020 Future Scheduled 2010 PNEUMOCOCCAL 65+ YRS ([address] [facility] Test 00:00:00 - PCV) [code = Medical Cente r PNEUMOCOCCAL 65+ YRS (1 - PCV)] Future Scheduled 2010 PNEUMOCOCCAL 65+ YRS ([address] [facility] Test 00:00:00 - PCV) [code = Medical Cente r PNEUMOCOCCAL 65+ YRS (1 - PCV)] Future Scheduled 2010 PNEUMOCOCCAL 65+ YRS ([address] [facility] Test 00:00:00 - PCV) [code = Medical Cente r PNEUMOCOCCAL 65+ YRS (1 - PCV)] Future Scheduled 1995 SHINGLES VACCINES ([address] [facility] Test 00:00:00 2) [code = SHINGLES Medical Center VACCINES (1 of 2)] Future Scheduled 1995 SHINGLES VACCINES ([address] [facility] Test 00:00:00 2) [code = SHINGLES Medical Center VACCINES (1 of 2)] Future Scheduled 1995 SHINGLES VACCINES ([address] [facility] Test 00:00:00 2) [code = SHINGLES Medical Center VACCINES (1 of 2)] Future Scheduled 1964 DTAP/TDAP/TD [facility]ACCINES [facility] Test 00:00:00 (1 - Tdap) [code = Medical C enter DTAP/TDAP/TD VACCINES (1 - Tdap)] Future Scheduled 1964 DTAP/TDAP/TD VACCINES [facility] Test 00:00:00 (1 - Tdap) [code = Medical C enter DTAP/TDAP/TD VACCINES (1 - Tdap)] Future Scheduled 1964 DTAP/TDAP/TD [facility]ACCINES [facility] Test 00:00:00 (1 - Tdap) [code = Medical C enter DTAP/TDAP/TD VACCINES (1 - Tdap)] Future Scheduled 1963 HEPATITIS C [facility]CRE[facility]ING [facility] Test 00:00:00 [code = HEPATITIS C Medical Center SCREENING] Future Scheduled 1963 HEPATITIS C [facility]CRE[facility]ING [facility] Test 00:00:00 [code = HEPATITIS C Medical Center SCREENING] Future Scheduled 1963 HEPATITIS C [facility]CRE[facility]ING [facility] Test 00:00:00 [code = HEPATITIS C Medical Center SCREENING] Future Scheduled 1946-03-03 COVID-19 VACCINE (#1) [facility] Test 00:00:00 [code = COVID-[address] VACCINE (#1)] Future Scheduled 1946-03-03 COVID-19 VACCINE (#1) [facility] Test 00:00:00 [code = COVID-[address] VACCINE (#1)] Future Scheduled 1946-03-03 COVID-19 VACCINE (#1) [facility] Test 00:00:00 [code = COVID-[address] VACCINE (#1)] Future Scheduled 1945 DXA SCAN [code = DXA [facility] Test 00:00:00 SCAN] Medical Center Future Scheduled 1945 DXA SCAN [code = DXA [facility] Test 00:00:00 SCAN] Medical Center Future Scheduled 1945 DXA SCAN [code = DXA [facility] Test 00:00:00 SCAN] [facility] Future Scheduled Screening for malignant [facility] [employer] Test neoplasm of colon of Medicin e (procedure) [code = 826330389] Future Scheduled TETANUS SHOT (ADULT) [employer] [facility] [code = TETANUS SHOT of Medi cine (ADULT)] Future Scheduled COVID-19 Vaccine (1) [employer] [facility] [code = COVID-19 of Medicine Vaccine (1)] Future Scheduled Hepatitis C screening [employer] [facility] (procedure) [code = of Medic ine 398138128] Future Scheduled ZOSTER VACCINE (1 of 2) [facility] [employer] Test [code = ZOSTER VACCINE of Me dicine (1 of 2)] Future Scheduled Screening for [facility] [employer] Test osteoporosis of Medicine (procedure) [code = 373304012] Future Scheduled PNEUMOVAX >=65 (PPSV23) [employer] Test [code = PNEUMOVAX >=65 of Me dicine (PPSV23)] Future Scheduled MEDICARE IPPE (WELCOME [employer] TO MEDICARE) [code = of Medi cine MEDICARE IPPE (WELCOME TO MEDICARE)] Future Scheduled FALL SCREEN [code = [employer] [facility] FALL SCREEN] of Medicine Future Scheduled Screening for malignant [facility] [employer] Test neoplasm of breast of Medici ne (procedure) [code = 159711929] Future Scheduled CBC W/AUTO DIFF WITH Ordered: [place] [employer] [facility] PLATELETS [code = 10/25/2019 of Medicin e 05725-0] Future Scheduled Screening for malignant [employer] Test neoplasm of colon of Medicin e (procedure) [code = 198112492] Future Scheduled TETANUS SHOT (ADULT) [employer] [facility] [code = TETANUS SHOT of Medi cine (ADULT)] Future Scheduled COVID-19 Vaccine (1) [employer] [facility] [code = COVID-19 of Medicine Vaccine (1)] Future Scheduled Hepatitis C screening [employer] [facility] (procedure) [code = of Medic ine 040452604] Future Scheduled ZOSTER VACCINE (1 of 2) [facility] [employer] Test [code = ZOSTER VACCINE of Me dicine (1 of 2)] Future Scheduled Screening for [facility] [employer] Test osteoporosis of Medicine (procedure) [code = 791447069] Future Scheduled PNEUMOVAX >=65 (PPSV23) [employer] Test [code = PNEUMOVAX >=65 of Me dicine (PPSV23)] Future Scheduled MEDICARE IPPE (WELCOME B [facility] Test TO MEDICARE) [code = of Medi cine MEDICARE IPPE (WELCOME TO MEDICARE)] Future Scheduled COMPREHENSIVE METABOLIC Ordered: [facility] Test PANEL [code = 39342-0] 10/25/2019 of Me dicine Future Scheduled FALL SCREEN [code = [facility] Test FALL SCREEN] of Medicine Future Scheduled Screening for malignant [facility] Test neoplasm of breast of Medici ne (procedure) [code = 846577584] Future Scheduled MAGNESIUM [code = Ordered: [facility] [employer] Test 02437-6] 10/25/2019 of Medicine Future Scheduled COLON CANCER SCREENING: [facility] Test COLONOSCOPY [code = of Medic ine COLON CANCER SCREENING: COLONOSCOPY] Future Scheduled Screening for malignant [facility] [employer] Test neoplasm of colon of Medicin e (procedure) [code = 049276187] Future Scheduled TETANUS SHOT (ADULT) [employer] [facility] [code = TETANUS SHOT of Medi cine (ADULT)] Future Scheduled COVID-19 Vaccine (1) [employer] [facility] [code = COVID-19 of Medicine Vaccine (1)] Future Scheduled BMI FOLLOW UP PLAN [employer] Test [code = BMI FOLLOW UP of Med icine PLAN] Future Scheduled Hepatitis C screening [employer] [facility] (procedure) [code = of Medic ine 583164926] Future Scheduled MAMMOGRAM ANNUAL [facility] MAM[facility] ANNUAL] of Medic ine Future Scheduled ZOSTER VACCINE (1 of 2) [facility] [employer] Test [code = ZOSTER VACCINE of Me dicine (1 of 2)] Future Scheduled Screening for [facility] [employer] Test osteoporosis of Medicine (procedure) [code = 090635693] Future Scheduled PNEUMOVAX >=65 (PPSV23) [employer] [...] edicine MONTHS] Future Scheduled Screening for malignant [facility] Test neoplasm of breast of Medici ne (procedure) [code = 554796976] Future Scheduled TETANUS SHOT (ADULT) [place] [employer] [facility] [code = TETANUS SHOT of Medi cine (ADULT)] Future Scheduled BMI FOLLOW UP PLAN [employer] [facility] [code = BMI FOLLOW UP of Med icine PLAN] Future Scheduled Screening for malignant [employer] Test neoplasm of colon of Medicin e (procedure) [code = 188093834] Future Scheduled TETANUS SHOT (ADULT) [place] [employer] [code = TETANUS SHOT of Medi cine (ADULT)] Future Scheduled COVID-19 Vaccine (1) [place] [facility] [code = COVID-19 of Medicine Vaccine (1)] Future Scheduled BMI FOLLOW UP PLAN [employer] Test [code = BMI FOLLOW UP of Med icine PLAN] Future Scheduled HEPATITIS C SCREENING [employer] [facility] [code = HEPATITIS C of Medic ine SCREENING] Future Scheduled Hepatitis C screening [employer] (procedure) [code = of Medic ine 068899927] Future Scheduled ZOSTER VACCINE (1 of 2) [facility] [employer] Test [code = ZOSTER VACCINE of Me dicine (1 of 2)] Future Scheduled Screening for [facility] [employer] Test osteoporosis of Medicine (procedure) [code = 072156284] Future Scheduled PNEUMOVAX >=65 (PPSV23) [employer] [...] edicine MONTHS] Future Scheduled Screening for malignant [facility] [employer] Test neoplasm of breast of Medici ne (procedure) [code = 351271801] Future Scheduled FALL SCREEN [code = [employer] FALL SCREEN] of Medicine Future Scheduled OSTEOPOROSIS SCREENING [employer] [code = OSTEOPOROSIS of Medi cine SCREENING] Future Scheduled PNEUMOVAX >=65 (PPSV23) [facility] [employer] Test [code = PNEUMOVAX >=65 of Me dicine (PPSV23)] Future Scheduled PREVNAR >= 65 (PCV13) [employer] Test [code = PREVNAR >= 65 of Med icine (PCV13)] Future Scheduled FLU VACCINE > 6 MONTHS [employer] [code = FLU VACCINE > 6 of M edicine MONTHS] Future Scheduled CBC W/AUTO DIFF WITH Ordered: [facility] Test PLATELETS [code = 11/08/2019 of Medicin e 58660-6] Future Scheduled COMPREHENSIVE METABOLIC Ordered: [facility] Test PANEL [code = 91942-3] 11/08/2019 of Me dicine Future Scheduled MAGNESIUM [code = Ordered: [facility] Test 42157-7] 11/08/2019 of Medicine Future Scheduled COLON CANCER SCREENING: [facility] Test COLONOSCOPY [code = of Medic ine COLON CANCER SCREENING: COLONOSCOPY] Future Scheduled MAMMOGRAM ANNUAL [code [facility] [employer] Test = MAMMOGRAM ANNUAL] of Medic ine Future Scheduled TETANUS SHOT (ADULT) [place] [code = TETANUS SHOT of Medi cine (ADULT)] Future Scheduled BMI FOLLOW UP PLAN [employer] [code = BMI FOLLOW UP of Med icine PLAN] Future Scheduled HEPATITIS C SCREENING [employer] [code = HEPATITIS C of Medic ine SCREENING] Future Scheduled OSTEOPOROSIS SCREENING [facility] Test [code = OSTEOPOROSIS of Medi cine SCREENING] Future Scheduled PNEUMOVAX >=65 (PPSV23) [facility] [employer] Test [code = PNEUMOVAX >=65 of [...] Future Scheduled CBC W/AUTO DIFF WITH Ordered: [employer] [facility] [employer] Test PLATELETS [code = 11/22/2019 of Medicin e 43484-2] Future Scheduled COMPREHENSIVE METABOLIC Ordered: [facility] Test PANEL [code = 74507-0] 11/22/2019 of Me dicine Future Scheduled MAGNESIUM [code = Ordered: [facility] [employer] Test 85178-7] 11/22/2019 of Medicine Future Scheduled COLON CANCER SCREENING: [facility] Test COLONOSCOPY [code = of Medic ine COLON CANCER SCREENING: COLONOSCOPY] Future Scheduled MAMMOGRAM ANNUAL [code [facility] [employer] Test = MAMMOGRAM ANNUAL] of Medic ine Future Scheduled TETANUS SHOT (ADULT) [place] [employer] [code = TETANUS SHOT [...] cine SCREENING] Future Scheduled PNEUMOVAX >=65 (PPSV23) [facility] [employer] Test [code = PNEUMOVAX >=65 of Me dicine (PPSV23)] Future Scheduled PREVNAR >= 65 (PCV13) [employer] [facility] [code = PREVNAR >= 65 of Med icine (PCV13)] Future Scheduled FLU VACCINE > 6 MONTHS [employer] [code = FLU VACCINE > 6 of M edicine MONTHS] Future Scheduled FALL SCREEN [code = [facility] [place] Test FALL SCREEN] of Medicine Future Scheduled COLON CANCER SCREENING: [facility] Test COLONOSCOPY [code = of Medic ine COLON CANCER SCREENING: COLONOSCOPY] Future Scheduled MAMMOGRAM ANNUAL [code [facility] [employer] Test = MAMMOGRAM ANNUAL] of Medic ine Future Scheduled TETANUS SHOT (ADULT) [employer] [code = TETANUS SHOT of Medi cine (ADULT)] Future Scheduled BMI FOLLOW UP PLAN [employer] [code = BMI FOLLOW UP of Med icine PLAN] Future Scheduled HEPATITIS C SCREENING [employer] [facility] [code = HEPATITIS C of Medic ine SCREENING] Future Scheduled OSTEOPOROSIS SCREENING [employer] [code = OSTEOPOROSIS of Medi cine SCREENING] Future Scheduled PNEUMOVAX >=65 (PPSV23) [facility] [employer] Test [code = PNEUMOVAX >=65 of [...] FALL SCREEN] of Medicine Future Scheduled ELECTROCARDIOGRAM [facility] [employer] Test COMPLETE [code = 00615] of M edicine Future Scheduled COLON CANCER SCREENING: [facility] Test COLONOSCOPY [code = of Medic ine COLON CANCER SCREENING: COLONOSCOPY] Future Scheduled MAMMOGRAM ANNUAL [code [facility] = MAMMOGRAM ANNUAL] of Medic ine Future Scheduled TETANUS SHOT (ADULT) [employer] [code = TETANUS SHOT [...] cine SCREENING] Future Scheduled PNEUMOVAX >=65 (PPSV23) [facility] [employer] Test [code = PNEUMOVAX >=65 of [...] Test FALL SCREEN] of Medicine Future Scheduled [place] MED NUTR THER, 1ST, Ordered: [employer] Test INDIV, EA 15 MIN [code 12/14/2019 of Me dicine = 35834] Future Scheduled COLON CANCER SCREENING: [facility] Test COLONOSCOPY [code = of Medic ine COLON CANCER SCREENING: COLONOSCOPY] Future Scheduled MAMMOGRAM ANNUAL [code [facility] [employer] [facility] = MAMMOGRAM ANNUAL] of Medic ine Future Scheduled TETANUS SHOT (ADULT) [place] [employer] [code = TETANUS SHOT [...] cine SCREENING] Future Scheduled PNEUMOVAX >=65 (PPSV23) [facility] [employer] Test [code = PNEUMOVAX >=65 of [...] of Medicine Future Scheduled COLON CANCER SCREENING: [facility] Test COLONOSCOPY [code = of Medic ine COLON CANCER SCREENING: COLONOSCOPY] Future Scheduled MAMMOGRAM ANNUAL [code [employer] = MAMMOGRAM ANNUAL] of Medic ine Future Scheduled TETANUS SHOT (ADULT) [place] [code = TETANUS SHOT of Medi cine (ADULT)] Future Scheduled BMI FOLLOW UP PLAN [employer] [code = BMI FOLLOW UP of Med icine PLAN] Future Scheduled HEPATITIS C SCREENING [employer] [code = HEPATITIS C of Medic ine SCREENING] Future Scheduled OSTEOPOROSIS SCREENING [facility] Test [code = OSTEOPOROSIS of Medi cine SCREENING] Future Scheduled PNEUMOVAX >=65 (PPSV23) [facility] [employer] Test [code = PNEUMOVAX >=65 of Me dicine (PPSV23)] Future Scheduled FLU VACCINE > 6 MONTHS [facility] [employer] Test [code = FLU VACCINE > 6 of M edicine MONTHS] Future Scheduled FALL SCREEN [code = [employer] FALL SCREEN] of Medicine Future Scheduled COMPREHENSIVE METABOLIC Ordered: [facility] Test PANEL [code = 43585-3] 10/04/2019 of Me dicine Future Scheduled CBC W/AUTO DIFF WITH Ordered: [facility] Test PLATELETS [code = 10/04/2019 of Medicin e 82618-8] Future Scheduled COLON CANCER SCREENING: [facility] Test COLONOSCOPY [code = of Medic ine COLON CANCER SCREENING: COLONOSCOPY] Future Scheduled VITAMIN B12 [code = Ordered: [employer] 2132-9] 10/04/2019 of Medicine Future Scheduled MAMMOGRAM ANNUAL [code [facility] [employer] [facility] = MAMMOGRAM ANNUAL] of Medic ine Future Scheduled TETANUS SHOT (ADULT) [place] [code = TETANUS SHOT [...] cine SCREENING] Future Scheduled PNEUMOVAX >=65 (PPSV23) [facility] [employer] Test [code = PNEUMOVAX >=65 of Me dicine (PPSV23)] Future Scheduled FLU VACCINE > 6 MONTHS [employer] [code = FLU VACCINE > 6 of M edicine MONTHS] Future Scheduled FALL SCREEN [code = [employer] FALL SCREEN] of Medicine Future Scheduled PROTIME-INR [code = Ordered: [employer] 5902-2] 10/04/2019 of Medicine Future Scheduled CULTURE, Ordered: [facility] [employer] [facility] URINE/SENSITIVITY ON 10/04/2019 of Medi cine ALL [code = 82288-5] Future Scheduled COLON CANCER SCREENING: [facility] Test COLONOSCOPY [code = of Medic ine COLON CANCER SCREENING: COLONOSCOPY] Future Scheduled MAMMOGRAM ANNUAL [code [employer] = MAMMOGRAM ANNUAL] of Medic ine Future Scheduled TETANUS SHOT (ADULT) [place] [code = TETANUS SHOT of Medi cine (ADULT)] Future Scheduled COLON CANCER SCREENING: [facility] Test COLONOSCOPY [code = of Medic ine COLON CANCER SCREENING: COLONOSCOPY] Future Scheduled MAMMOGRAM ANNUAL [code [facility] [employer] [facility] = MAMMOGRAM ANNUAL] of Medic ine Future Scheduled TETANUS SHOT (ADULT) [place] [employer] [code = TETANUS SHOT [...] cine SCREENING] Future Scheduled PNEUMOVAX >=65 (PPSV23) [facility] [employer] Test [code = PNEUMOVAX >=65 of [...] cine SCREENING] Future Scheduled PNEUMOVAX >=65 (PPSV23) [facility] [employer] Test [code = PNEUMOVAX >=65 of Me dicine (PPSV23)] Future Scheduled COLON CANCER SCREENING: [facility] Test COLONOSCOPY [code = of Medic ine COLON CANCER SCREENING: COLONOSCOPY] Future Scheduled MAMMOGRAM ANNUAL [code [facility] [employer] [facility] = MAMMOGRAM ANNUAL] of Medic ine Future Scheduled TETANUS SHOT (ADULT) [employer] [code = TETANUS SHOT [...] cine SCREENING] Future Scheduled PNEUMOVAX >=65 (PPSV23) [facility] [employer] Test [code = PNEUMOVAX >=65 of Me dicine (PPSV23)] Future Scheduled FLU VACCINE > 6 MONTHS [employer] [code = FLU VACCINE > 6 of M edicine MONTHS] Future Scheduled FALL SCREEN [code = [employer] [place] [employer] FALL SCREEN] of Medicine Future Scheduled PREVNAR >= 65 (PCV13) [employer] [facility] [code = PREVNAR >= 65 of Med icine (PCV13)] Future Scheduled FLU VACCINE > 6 MONTHS [facility] [employer] Test [code = FLU VACCINE > 6 of M edicine MONTHS] Future Scheduled CBC W/AUTO DIFF WITH Ordered: [facility] Test PLATELETS [code = 02/28/2020 of Medicin e 12752-9] Future Scheduled COMPREHENSIVE METABOLIC Ordered: [facility] Test PANEL [code = 31947-3] 02/28/2020 of Me dicine Future Scheduled MAGNESIUM [code = Ordered: [facility] [employer] Test 04185-3] 02/28/2020 of Medicine Future Scheduled TSH [code = 24352-4] Ordered: [employer] [facility] [employer] Test 02/28/2020 of Medicine Future Scheduled COLON CANCER SCREENING: [facility] Test COLONOSCOPY [code = of Medic ine COLON CANCER SCREENING: COLONOSCOPY] Future Scheduled MAMMOGRAM ANNUAL [code [facility] [employer] [facility] = MAMMOGRAM ANNUAL] of Medic ine Future Scheduled TETANUS SHOT (ADULT) [employer] [code = TETANUS SHOT of Medi cine (ADULT)] Future Scheduled BMI FOLLOW UP PLAN [employer] Test [code = BMI FOLLOW UP of Med icine PLAN] Future Scheduled HEPATITIS C SCREENING [employer] [code = HEPATITIS C of Medic ine SCREENING] Future Scheduled ZOSTER VACCINE (1 of 2) [facility] [employer] Test [code = ZOSTER VACCINE of Me dicine (1 of 2)] Future Scheduled OSTEOPOROSIS SCREENING [employer] [code = OSTEOPOROSIS of Medi cine SCREENING] Future Scheduled PNEUMOVAX >=65 (PPSV23) [facility] [employer] Test [code = PNEUMOVAX >=65 of Me dicine (PPSV23)] Future Scheduled FLU VACCINE > 6 MONTHS [employer] Test [code = FLU VACCINE > 6 of M edicine MONTHS] Future Scheduled FALL SCREEN [code = [employer] FALL SCREEN] of Medicine Future Scheduled COLON CANCER SCREENING: [facility] Test COLONOSCOPY [code = of Medic ine COLON CANCER SCREENING: COLONOSCOPY] Future Scheduled MAMMOGRAM ANNUAL [code [employer] = MAMMOGRAM ANNUAL] of Medic ine Future Scheduled TETANUS SHOT (ADULT) [employer] [code = TETANUS SHOT of Medi cine (ADULT)] Future Scheduled BMI FOLLOW UP PLAN [employer] [code = BMI FOLLOW UP of Med icine PLAN] Future Scheduled HEPATITIS C SCREENING [employer] [code = HEPATITIS C of Medic ine SCREENING] Future Scheduled ZOSTER VACCINE (1 of 2) [facility] [employer] Test [code = ZOSTER VACCINE of Me dicine (1 of 2)] Future Scheduled OSTEOPOROSIS SCREENING [employer] [code = OSTEOPOROSIS of Medi cine SCREENING] Future Scheduled PNEUMOVAX >=65 (PPSV23) [facility] [employer] Test [code = PNEUMOVAX >=65 of [...] Future Scheduled CBC W/AUTO DIFF WITH Ordered: [employer] PLATELETS [code = 05/15/2020 of Medicin e 45354-1] Future Scheduled BASIC METABOLIC PANEL Ordered: [employer] Test [code = 45133-0] 05/15/2020 of Medicine Future Scheduled VITAMIN B12 [code = Ordered: [employer] 2132-9] 05/15/2020 of Medicine Future Scheduled COLON CANCER SCREENING: [facility] Test COLONOSCOPY [code = of Medic ine COLON CANCER SCREENING: COLONOSCOPY] Future Scheduled MAMMOGRAM ANNUAL [code [employer] = MAMMOGRAM ANNUAL] of Medic ine Future Scheduled TETANUS SHOT (ADULT) [employer] [code = TETANUS SHOT of Medi cine (ADULT)] Future Scheduled BMI FOLLOW UP PLAN [employer] Test [code = BMI FOLLOW UP of Med icine PLAN] Future Scheduled HEPATITIS C SCREENING [employer] [code = HEPATITIS C of Medic ine SCREENING] Future Scheduled ZOSTER VACCINE (1 of 2) [facility] [employer] Test [code = ZOSTER VACCINE of Me dicine (1 of 2)] Future Scheduled OSTEOPOROSIS SCREENING [employer] [code = OSTEOPOROSIS of Medi cine SCREENING] Future Scheduled PNEUMOVAX >=65 (PPSV23) [facility] [employer] Test [code = PNEUMOVAX >=65 of [...] of Medicine Future Scheduled COLON CANCER SCREENING: [facility] [employer] Test COLONOSCOPY [code = of Medic ine COLON CANCER SCREENING: COLONOSCOPY] Future Scheduled MAMMOGRAM ANNUAL [code [employer] = MAMMOGRAM ANNUAL] of Medic ine Future Scheduled TETANUS SHOT (ADULT) [employer] [code = TETANUS SHOT of Medi cine (ADULT)] Future Scheduled BMI FOLLOW UP PLAN [employer] Test [code = BMI FOLLOW UP of Med icine PLAN] Future Scheduled HEPATITIS C SCREENING [employer] [facility] [code = HEPATITIS C of Medic ine SCREENING] Future Scheduled ZOSTER VACCINE (1 of 2) [facility] [employer] Test [code = ZOSTER VACCINE of Me dicine (1 of 2)] Future Scheduled OSTEOPOROSIS SCREENING [employer] [code = OSTEOPOROSIS of Medi cine SCREENING] Future Scheduled PNEUMOVAX >=65 (PPSV23) [facility] [employer] Test [code = PNEUMOVAX >=65 of [...] of Medicine Future Scheduled COLON CANCER SCREENING: [facility] [employer] Test COLONOSCOPY [code = of Medic ine COLON CANCER SCREENING: COLONOSCOPY] Future Scheduled MAMMOGRAM ANNUAL [code [facility] = MAMMOGRAM ANNUAL] of Medic ine Future Scheduled TETANUS SHOT (ADULT) [employer] [code = TETANUS SHOT of Medi cine (ADULT)] Future Scheduled BMI FOLLOW UP PLAN [employer] Test [code = BMI FOLLOW UP of Med icine PLAN] Future Scheduled HEPATITIS C SCREENING [employer] [facility] [code = HEPATITIS C of Medic ine SCREENING] Future Scheduled ZOSTER VACCINE (1 of 2) [facility] [employer] Test [code = ZOSTER VACCINE of Me dicine (1 of 2)] Future Scheduled OSTEOPOROSIS SCREENING [employer] [code = OSTEOPOROSIS of Medi cine SCREENING] Future Scheduled PNEUMOVAX >=65 (PPSV23) [facility] [employer] Test [code = PNEUMOVAX >=65 of Me dicine (PPSV23)] Future Scheduled FLU VACCINE > 6 MONTHS [employer] [code = FLU VACCINE > 6 of M edicine MONTHS] Future Scheduled MEDICARE IPPE (WELCOME [facility] [employer] [facility] TO MEDICARE) [code = of Medi cine MEDICARE IPPE (WELCOME TO MEDICARE)] Future Scheduled FALL SCREEN [code = [facility] Test FALL SCREEN] of Medicine Future Scheduled CBC W/AUTO DIFF WITH Ordered: [facility] Test PLATELETS [code = 07/27/2020 of Medicin e 93915-0] Future Scheduled COMPREHENSIVE METABOLIC Ordered: [facility] Test PANEL [code = 99960-1] 07/27/2020 of Me dicine Future Scheduled MAGNESIUM [code = Ordered: [facility] Test 45543-7] 07/27/2020 of Medicine Future Scheduled COLON CANCER SCREENING: [facility] Test COLONOSCOPY [code = of Medic ine COLON CANCER SCREENING: COLONOSCOPY] Future Scheduled COVID-19 Vaccine [facility] Test Evaluation [code = of Medici ne COVID-19 Vaccine Evaluation] Future Scheduled TETANUS SHOT (ADULT) [employer] [code = TETANUS SHOT of Medi cine (ADULT)] Future Scheduled HEPATITIS C SCREENING [employer] [code = HEPATITIS C of Medic ine SCREENING] Future Scheduled ZOSTER VACCINE (1 of 2) [facility] [employer] Test [code = ZOSTER VACCINE of Me dicine (1 of 2)] Future Scheduled OSTEOPOROSIS SCREENING [employer] [code = OSTEOPOROSIS of Medi cine SCREENING] Future Scheduled PNEUMOVAX >=65 (PPSV23) [facility] [employer] Test [code = PNEUMOVAX >=65 of [...] Medic ine Future Scheduled COLON CANCER SCREENING: [facility] [employer] Test COLONOSCOPY [code = of Medic ine COLON CANCER SCREENING: COLONOSCOPY] Future Scheduled COVID-19 Vaccine [facility] [employer] Test Evaluation [code = of Medici ne COVID-19 Vaccine Evaluation] Future Scheduled TETANUS SHOT (ADULT) [employer] [code = TETANUS SHOT of Medi cine (ADULT)] Future Scheduled HEPATITIS C SCREENING [employer] [code = HEPATITIS C of Medic ine SCREENING] Future Scheduled ZOSTER VACCINE (1 of 2) [facility] [employer] Test [code = ZOSTER VACCINE of Me dicine (1 of 2)] Future Scheduled OSTEOPOROSIS SCREENING [employer] [code = OSTEOPOROSIS of Medi cine SCREENING] Future Scheduled PNEUMOVAX >=65 (PPSV23) [facility] [employer] Test [code = PNEUMOVAX >=65 of [...] Medic ine Future Scheduled COLON CANCER SCREENING: [facility] [employer] Test COLONOSCOPY [code = of Medic ine COLON CANCER SCREENING: COLONOSCOPY] Future Scheduled COVID-19 Vaccine [employer] Evaluation [code = of Medici ne COVID-19 Vaccine Evaluation] Future Scheduled TETANUS SHOT (ADULT) [employer] [code = TETANUS SHOT [...] Medicine Future Scheduled MAMMOGRAM ANNUAL [code [facility] = MAMMOGRAM ANNUAL] of Medic ine Future Scheduled CT CHEST ABDOMEN PELVIS 1 Occurrences [facility] [employer] Test W CONTRAST [code = [place] [address]-6] 10/26/2020 until 10/26/2021 Future Scheduled US RENAL BILATERAL 1 Occurrences [employer] Test [code = 01951] starting of Medicine 05/15/2020 until 05/15/[address] CHEST ABDOMEN PELVIS 1 Occurrences [facility] [employer] Test W CONTRAST [code = [place] [address]-8] 04/27/2020 until 04/27/[address] CHEST ABDOMEN PELVIS 1 Occurrences [facility] [employer] Test W CONTRAST [code = [place] [address]-6] 02/28/2020 until 02/27/2021 Encounters Start End Encounter Admission Attending Care Care Encounter Source Date/Time Date/Time Type Type Clinicians Facility Department ID 2021-12-03 Outpatient ANGIE, [facility] [id number] [place] 08:10:22 [facility] [id number] [facility] 2021-11-[address] [facility] [id number] [place] 15:34:11 [id number] [facility] 2021-11-06 Outpatient BEATRIZA, [facility] [id number] [place] 09:16:04 [facility] [id number] [facility] 2021-11-05 Outpatient ANGIE, [facility] [id number] [place] 07:47:43 [facility] [id number] [facility] 2021-10-[address] [facility] [id number] [place] 15:17:39 [facility] [id number] [facility] 2021-08-16 Outpatient ANGIE, [facility] [id number] [place] 15:22:59 Count includes the [facility] 2021-08-14 [facility] [id number] Common 11:01:33 Connor 16547 [facility] 2021-04-23 Inpatient FIONA, [facility] [id number] [facility] 22:51:01 [facility] 2021-04-23 Outpatient FIONA, [facility] [id number] [facility] 21:51:43 [facility] 2022-07-21 2022-07-21 Outpatient [facility] [id number] [facility] 00:00:00 00:00:00 2022-07-21 2022-07-21 Outpatient BIRD [facility] SLE [id number] SLE 00:00:00 00:00:00 2022-04-30 2022-04-30 Outpatient DOMENIC DOMENIC [id number] Memoria 15:15:00 15:15:00 31 lillian Ryder 2022-03-28 2022-03-28 Outpatient [facility] [id number] [address] [place] [id number] 00:00:00 23:59:00 Ayleen 2022-03-19 2022-03-19 Outpatient DOMENIC BARAHONA [id number] Memoria 14:30:00 14:30:00 30 lillian Ryder 2022-03-18 2022-03-18 Outpatient BIRD PALENCIA [facility] [id number] SLE 14:17:42 23:59:00 2022-03-18 2022-03-18 [facility] Bird [facility] [id number] [id number] 11:00:00 23:59:00 Encounter [facility] 2022-03-18 2022-03-[facility] [id number] [id number] 11:00:00 23:59:00 Encounter [facility] 2022-03-18 2022-03-18 Surgery [facility], [facility] [id number] 11:00:00 11:30:00 [facility] 2022-03-18 2022-03-18 [facility] [id number] 11:00:00 11:30:00 [facility] 2022-03-18 2022-03-18 Outpatient BIRD YEN [facility] Surgery [id number] SLE 09:02:00 11:10:00 2022-03-18 2022-03-18 [facility] Bird Yen [facility] [id number] [id number] 09:02:00 11:10:00 Encounter [facility] 2022-03-18 2022-03-18 [facility] Bird Yen [facility] [id number] [id number] 09:02:00 11:10:00 Encounter [facility] 2022-02-18 2022-02-18 Office GUILLERMINA JAIMES [id number] [facility] 13:31:03 16:12:27 Visit VITA AMBULATOR [id number] College Y [id number] of [id number] [facility] khushi 300 e 2022-02-17 2022-02-[address] [facility] [id number] [facility] 00[facility]:00 Orders [facility] 2022-02-17 2022-02-[address] [facility] [id number] [facility] 00:[facility] 00:00:00 Orders [facility] 2022-02-14 2022-02-14 Outpatient [facility] [id number] [facility] 13:12:45 23:59:00 Juve Medicin e 2022-02-14 2022-02-14 Office FRANCES YENBENIGNOLemuel [facility] 1.2.840.114 [id number] [facility] 10:42:48 12:25:10 Visit Seymour 350.1.13.21 Co llege 0.2.7.2.686 of [id number] Medi khushi 504 e 2022-02-05 2022-02-05 Outpatient BROOKLYN BARAHONA [id number] Memoria 14:00:00 14:00:00 29 lillian Ryder 2022-02-04 2022-02-04 Outpatient BIRD YEN [facility]H [id number] [facility] 10:31:06 23:59:00 2022-02-04 2022-02-04 [facility] Bird Yen [facility] [id number] 10:31:06 23:59:00 [facility] 2022-02-04 2022-02-04 [facility] Bird Yen [facility] [id number] [facility] 10:31:06 23:59:00 [facility] 2022-02-04 2022-02-04 Outpatient BIRD YEN SLE SLEH [id number] SLEH 10:30:58 10:30:58 2022-02-04 2022-02-04 [facility] Bird Yen [facility] [id number] 10:30:58 10:30:58 [facility] 2022-02-04 2022-02-04 [facility] Bird Yen [facility] [id number] 10:30:58 10:30:58 Encounter [facility] 2021-12-27 2021-12-27 Outpatient [facility] [id number] [facility] 08:52:58 23:59:00 Colleg e of Medicin e 2021-12-25 2021-12-25 Outpatient [facility] BROOKLYN [id number] [facility] 14:00:00 14:00:00 28 l Aleksey 2021-11-15 2021-11-15 Outpatient [place] BC [id number] [facility] 09:45:31 23:59:00 Colleg e of Medicin e 2021-11-15 2021-11-15 Office OMAR YEN [facility] 1.2.840.114 [id number] [facility] 10:23:51 11:26:45 Visit Seymour 350.1.13.21 Co llege 0.2.7.2.[address] [facility] [id number] [facility] 504 e 2021-11-15 2021-11-[address] [facility] [id number] 00:[facility]00 00:00:00 Orders [facility] 2021-11-15 2021-11-15 [facility] Bird Yen [facility] [id number] 00:00:00 00:00:00 Orders [facility] 2021-10-29 2021-10-29 Outpatient BIRD PALENCIA SLE SLEH [id number] [facility]H 12:33:36 23:59:00 2021-10-29 2021-10-29 [facility] Bird [facility] [id number] 12:33:36 23:59:00 Encounter [facility] 2021-10-29 2021-10-29 [facility] Bird [facility] [id number] 12:33:36 23:59:00 Encounter [facility] 2021-10-29 2021-10-29 Outpatient BIRD PALENCIA SLE SLEH [id number] SLEH 12:33:25 23:59:00 2021-10-29 2021-10-29 [facility] Bird [facility] [id number] 12:33:25 23:59:00 Encounter [facility] 2021-10-29 2021-10-29 [facility] Bird [facility] [id number] 12:33:25 23:59:00 Encounter [facility] 2021-10-22 2021-10-22 Outpatient BIRD PALENCIA SLEH SLEH [id number] [facility] 00:00:00 00:00:00 2021-10-22 2021-10-22 Outpatient BIRD PALENCIA SLEH SLEH [id number] [facility] 00:00:00 00:00:00 2021-10-04 2021-10-04 Outpatient [facility] [id number] [facility] 09:51:39 23:59:00 Colleg e of Medicin e 2021-09-24 2021-09-24 Outpatient DOMENIC BARAHONA [id number] Memoria 10:15:00 10:15:00 27 l Aleksey 2021-09-17 2021-09-17 Office GUILLERMINA POOLE 1.2.840.114 [id number] [facility] 14:01:28 15:17:27 Visit CHRISTOPHER AMBULATOR 350.1.13.21 College Y 0.2.7.2.686 of [id number] Medi khushi 300 e 2021-08-22 2021-08-[address] [facility] [id number] 00:00:00 00:00:00 Orders [facility] 2021-08-22 2021-08-[address] [facility] [id number] 00:00:00 00:00:00 Orders [facility] 2021-08-16 2021-08-16 Outpatient [facility] [id number] [facility] 11:25:49 23:59:00 Colleg e of Medicin e 2021-08-16 2021-08-16 Office OMAR YEN [facility] 1.2.840.114 [id number] [facility] 09:51:36 11:22:06 Visit Seymour 350.1.13.21 Co llege 0.2.7.2.686 of [id number] Medi khushi 504 e 2021-08-14 2021-08-14 Outpatient DOMENIC BARAHONA [id number] Memoria 16:00:00 16:00:00 26 l Aleksey 2021-08-08 2021-08-08 Office GUILLERMINA JAIMES 1.2.840.114 [id number] [facility] 10:37:20 11:15:47 Visit VITA AMBULATOR 350.1.13.21 College Y 0.2.7.2.686 of [id number] Medi khushi 300 e 2021-07-29 2021-07-29 Outpatient BIRD YEN [facility] SLE [id number] SLEH 12:33:58 23:59:00 2021-07-29 2021-07-29 [facility] [id number] 12:33:58 23:59:00 Encounter 1, [facility] 2021-07-29 2021-07-29 [facility] [id number] 12:33:58 23:59:00 En[facility] 2021-07-29 2021-07-29 Outpatient BIRD YEN [facility] SLE [id number] SLEH 12:33:51 23:59:00 2021-07-29 2021-07-29 [facility] Bird [facility] [id number] 12:33:51 23:59:00 Encounter 1[facility] 2021-07-29 2021-07-29 [facility] Bird [facility] [id number] 12:33:51 23:59:00 Encounter 1[facility] 2021-07-04 2021-07-04 Ambulatory nullFlavo MNA [id number] Memoria 20:00:00 20:00:00 Pre-Reg r Neurology 25 l Rhiannon Ryder 2021-06-26 2021-06-26 Outpatient ALEC MOSER [facility] [id number] Univers 14:30[facility]00 [facility] 2021-05-24 Outpatient nullFlavo MNA [id number] Memoria 15:15:00 04:59:59 r Neurology 24 l Rhiannon Ryder 2021-05-10 2021-05-10 [facility] Bird Yen [facility] [id number] 00:00:00 00:00:00 [facility] 2021-05-08 2021-05-08 Ambulatory nullFlavo MNA [id number] Memoria 19:15:00 19:15:00 Pre-Reg r Neurology 23 l Arkansasisrael Smithann 2021-05-07 2021-05-07 Outpatient BCM BCM [id number] [facility] 15:09:13 23:59:00 Colleg e of Medicin e 2021-05-07 2021-05-07 Office OMAR YEN [facility] 1.2.840.114 [id number] [facility] 14:13:49 16:00:26 Visit Seymour 350.1.13.21 Co llege 0.2.7.2.686 of [id number] Medi khushi 504 e 2021-05-03 2021-05-03 Outpatient BIRD PALENCIA [facility] SLE [id number] SLE 10:46:33 23:59:00 2021-05-03 2021-05-03 [facility] Bird Yen [facility] [id number] 10:46:33 23:59:00 Encounter [facility] 2021-05-03 2021-05-03 Outpatient BIRD PALENCIA [facility] SLE [id number] SLE 10:46:26 23:59:00 2021-05-03 2021-05-03 [facility] Bird Palencia [facility] [id number] 10:46:26 23:59:00 Encounter [facility] 2021-04-05 2021-04-05 [facility] Bird Yen [facility] [id number] 00:00:00 00:00:00 Orders [facility] 2021-03-19 2021-03-19 Outpatient BCM BCM [id number] [facility] 14:16:56 23:59:00 Colleg e of Medicin e 2021-03-13 2021-03-14 Outpatient nullFlavo MNA [id number] Memoria 20:00:00 04:59:59 r Neurology 21 l Arkansasisrael Smithann 2021-02-01 2021-02-02 Outpatient nullFlavo MNA [id number] Memoria 16:30:00 04:59:59 r Neurology 22 l Rhiannon Smithann 2021-01-29 2021-01-29 Outpatient [facility] [id number] [facility] 13:53:55 23:59:00 Shwetha becerra of Medicin e 2021-01-29 2021-01-29 Office Omar Yen [facility] 1.2.840.114 [id number] [facility] 12:18:28 14:06:37 Visit Eyad CanalesNair 350.1.13.21 Co llege 0.2.7.2.686 of [id number] Medi khushi 530 e 2021-01-29 2021-01-29 Office GUILLERMINA Jaimes 1.2.840.114 [id number] [facility] 13:10:51 13:25:51 Visit Vita P AMBULATOR 350.1.13.21 College Y 0.2.7.2.686 of [id number] Medi khushi 300 e 2021-01-18 2021-01-18 Outpatient BIRD YEN SLE SLE [id number] SLE 00:00:00 00:00:00 2021-01-18 2021-01-18 Outpatient MILAN BIRD YEN SLE SLE [id number] SLE 00:00:00 00:00:00 2021-01-09 2021-01-10 Outpatient nullFlavo MNA [id number] Memoria 14:30:00 04:59:59 r Neurology 20 l [place] Aleksey 2020-12-18 2020-12-18 Office GUILLERMINA Poole 1.2.840.114 [id number] [facility] 14:58:39 15:08:39 Visit Christopher AMBULATOR 350.1.13.21 College P Y 0.2.7.2.686 of [id number] Medi khushi 300 e 2020-12-18 2020-12-18 Outpatient EL BIRD YEN SLE SLEH [id number] SLEH 00:00:00 00:00:00 2020-12-18 2020-12-18 Outpatient BIRD YEN SLE SLE [id number] SLEH 00:00:00 00:00:00 2020-12-18 2020-12-18 Outpatient BIRD PALENCIA [facility] SLE [id number] [facility] 00:00:00 00:00:00 2020-11-15 2020-11-15 Office GUILLERMINA Poole 1.2.840.114 [id number] [facility] 10:12:07 10:22:07 Visit Adolpher AMBULATOR 350.1.13.21 College P Y 0.2.7.2.686 of [id number] [facility] khushi 300 e 2020-11-06 2020-11-07 Outpatient nullFlavo MNA [id number] 19:15[facility]00 04:59:59 r Neurology 19 l Arkansasisrael Ryder 2020-10-26 2020-10-26 Office Eloise Yenlemuel [facility] 1.2.840.114 [id number] [facility] 11:30:32 13:39:35 Visit Eyad Ahuja 350.1.13.21 Co llege 0.2.7.2.686 of 309.7813399 Medi khushi 530 e 2020-10-05 2020-10-05 Orders Doctor MANNY 1.2.840.114 [id number] Univers 00:00:00 00:00:00 Only Unassigned, JORGE LUIS 350.1.13.10 ity of [facility] 4.2.7.2.686 Jan as [id number] [facility] mariama 00[address] 2020-10-05 2020-10-05 Orders Doctor MANNY 1.2.840.114 [id number] 00:00:00 00:00:00 Only Unassigned, JORGE LUIS 350.1.13.10 [facility] 4.2.7.2.686 [id number] 009 2020-10-04 2020-10-04 Office GUILLERMINA Jaimes 1.2.840.114 [id number] [facility] 10:09:01 10:24:01 Visit Vita Rudy AMBULATOR 350.1.13.21 College Y 0.2.7.2.686 of [id number] Medi khushi 300 e 2020-10-04 2020-10-04 Office GUILLERMINA Poole 1.2.840.[id number] [place] [address] 10:08:44 10:18:44 Visit Christopher AMBULATOR 350.1.13.21 College P Y 0.2.7.2.686 of [id number] [facility] 300 e 2020-10-04 2020-10-04 Outpatient EL BIRD YEN [facility] [id number] SLE 00:00:00 00:00:00 2020-10-04 2020-10-04 Outpatient BIRD YEN [facility] [id number] SLE 00:00:00 00:00:00 2020-09-24 2020-09-26 Outside nullFlavo MNA [id number] [facility] 16:19:27 05:59:59 Medical r Neurology 04 l Records Rhiannon Smithann 2020-09-11 2020-09-13 Outside nullFlavo MNA [id number] [facility]oria 20:49:36 05:59:59 Medical r Neurology 03 l Records Arkansasisrael Smithann 2020-09-07 2020-09-07 Office GUILLERMINA Poole 1.2.840.[id number] [place] [address] 14:53:39 15:03:39 Visit Christopher AMBULATOR 350.1.13.21 College P Y 0.2.7.2.686 of [id number] [facility] 300 e 2020-09-05 2020-09-06 Outpatient nullFlavo MNA [id number] Memoria 19:15:00 05:59:59 r Neurology 18 l Arkansasisrael Smithann 2020-09-05 2020-09-05 Ambulatory nullFlavo MNA [id number] Memoria 19:15:00 19:15:00 Pre-Reg r Neurology 17 l Arkansasisrael Smithann 2020-08-07 2020-08-09 Outside nullFlavo MNA [id number] [facility] 17:59:06 05:59:59 Medical r Neurology 02 l Records [place] Aleksey 2020-08-03 2020-08-03 Nursing Resident 2, Adc Lab [facility] 1.2.840.114 [id number] [facility] 13:07:52 13:22:52 Visit Alec Foss 350.1.13.10 [place] [id number] Me dical [facility] 2020-08-03 2020-08-03 Nursing Resident 2, Adc Lab [facility] 1.2.840.114 [id number] 13:07:52 13:22:52 Visit [place] 350.1.13.10 [place] 4.2.7.2.686 Professio [id number] [address] 2020-08-03 2020-08-03 Outpatient R ALEC FOSS [facility] [id number] Univers 13:00:00 13:00:00 ity of [facility] 2020-08-02 2020-08-02 Office GUILLERMINA Jaimes 1.2.840.114 [id number] [facility] 09:42:31 09:57:31 Visit Vita Rudy AMBULATOR 350.1.13.21 College Y 0.2.7.2.686 of [id number] [facility] khushi 300 e 2020-07-27 2020-07-27 Office Omar Yen [facility] 1.2.840.114 [id number] [facility] 11:15:40 12:55:05 Visit Edjanine Seymour 350.1.13.21 Co llege 0.2.7.2.686 of 166.4453258 [facility] khushi 530 e 2020-07-25 2020-07-26 Outpatient nullFlavo MNA [id number] Memoria 17:15:00 05:59:59 r Neurology 16 l [place] Aleksey 2020-07-19 2020-07-19 [facility] Alec Foss [facility] 1.2.840.114 [id number] Univers 10:46:59 23:59:00 Encounter [place] 350.1.13.10 ity [facility] 4.2.7.2.[place] [id number] [facility] [address] [place] 2020-07-19 2020-07-19 [facility] Alec Foss [facility] 1.2.840.114 [id number] 10:46:59 23:59:00 Encounter [place] 350.1.13.10 [place] 4.2.7.2.686 [place] [id number] [facility] 2020-07-19 2020-07-19 [facility] Alec Foss [facility] 1.2.840.114 [id number] [facility] 10:45:33 10:45:33 Encounter [place] 350.1.13.10 ity of [place] 4.2.7.2.686 [facility] [id number] [facility] [address] [place] 2020-07-19 2020-07-19 [facility] Alec Foss [facility] 1.2.840.114 [id number] 10:45:33 10:45:33 Encounter [place] 350.1.13.10 [place] 4.2.7.2.686 [place] [id number] 800 2020-07-19 2020-07-19 [facility] Alec Foss [facility] 1.2.840.114 [id number] [facility] 10:45:01 10:45:01 Encounter [place] 350.1.13.10 ity of [place] 4.2.7.2.686 [facility] [id number] [facility] [address] [place] 2020-07-19 2020-07-19 [facility] Alec Foss [facility] 1.2.840.114 [id number] 10:45:01 10:45:01 Encounter [place] 350.1.13.10 [place] 4.2.7.2.686 [place] [id number] 80 2020-07-19 2020-07-19 Outpatient R ALEC FOSS [facility] [id number] Univers 00:00:00 00:00:00 ity of [facility] 2020-07-19 2020-07-19 Orders Doctor BRYANT 1.2.840.114 [id number] [facility] 00:00:00 00:00:00 Only Unassigned, JORGE LUIS 350.1.13.10 ity of [facility] 4.2.7.2.686 Jan [id number] [facility] [address] 2020-07-19 2020-07-19 Orders Doctor BRYANT 1.2.840.114 [id number] 00:00:00 00:00:00 Only Unassigned, JORGE LUIS 350.1.13.10 [facility] 4.2.7.2.686 [id number] 009 2020-07-17 2020-07-17 Outpatient BIRD YEN [facility] SLE [id number] SLE 00:00:00 00:00:00 2020-07-17 2020-07-17 Outpatient BIRD PALENCIA [facility] [id number] SLE 00:00:00 00:00:00 2020-06-25 2020-06-25 Outpatient ALEC MOSER [facility] [id number] Univers 14:00:00 14:00:00 ity of [facility] 2020-06-25 2020-06-25 Orders Doctor MANNY 1.2.840.114 [id number] [facility] 00:00:00 00:00:00 Only Unassigned, JORGE LUIS 350.1.13.10 ity of [place] [facility] 4.2.7.2.686 Jan as [id number] [address] 2020-06-25 2020-06-25 Orders Doctor MANNY 1.2.840.114 [id number] 00:00:00 00:00:00 Only Unassigned, JORGE LUIS 350.1.13.10 [place] [facility] 4.2.7.2.686 [id number] 009 2020-06-21 2020-06-22 Outpatient nullFlavo [facility] [id number] [facility] 19:45:00 05:59:59 r Neurology 15 l [place] Aleksey 2020-06-07 2020-06-07 Office GUILLERMINA Jaimes 1.2.840.114 [id number] 08:15:55 08:30:55 Visit Vita P AMBULATOR 350.1.13.21 Y 0.2.7.2.686 [id number] 300 2020-06-07 2020-06-07 Office GUILLERMINA Jaimes 1.2.840.[id number] [place] [address] 08:15:55 08:30:55 Visit Vita P AMBULATOR 350.1.13.21 College Y 0.2.7.2.686 of [id number] [facility] 300 e 2020-05-15 2020-05-15 Office GUILLERMINA Jaimes 1.2.840.114 [id number] 14:31:10 15:54:25 Visit Vita P AMBULATOR 350.1.13.21 Y 0.2.7.2.686 [id number] 300 2020-05-15 2020-05-15 Office GUILLERMINA Jaimes 1.2.840.114 [id number] [facility] 14:31:10 15:54:25 Visit Vita P AMBULATOR 350.1.13.21 College Y 0.2.7.2.686 of [id number] [facility] khushi 300 e 2020-05-10 2020-05-11 Outpatient nullFlavo MNA [id number] Memoria 18:45:00 04:59:59 r Neurology 14 l [place] 2020-04-27 2020-04-27 Office FarshadFranceskishore [facility] 1.2.840.114 [id number] 14:24:21 15:32:04 Visit Edjanine Seymour 350.1.13.21 0.2.7.2.686 [id number] 530 2020-04-27 2020-04-27 Office FarshadFranceskishore [facility] 1.2.840.114 [id number] [facility] 14:24:21 15:32:04 Visit Edjanine Seymour 350.1.13.21 Co llege 0.2.7.2.686 of [id number] [facility] khushi 530 e 2020-04-25 2020-04-25 Outpatient YEN, AI-KISHORE [facility] SLE[facility] [id number] [facility]H 00:00:00 00:00:00 2020-04-25 2020-04-25 Outpatient EL YEN, AI-KISHORE [facility]H [id number] [facility]H 00:00:00 00:00:00 2020-04-05 2020-04-05 Outpatient YEN, AI-KISHORE [facility] [id number] [facility]H 00:00:00 00:00:00 2020-04-05 2020-04-05 Outpatient EL YEN, AI-KISHORE [facility] SLEH [id number] SLEH 00:00:00 00:00:00 2020-03-27 2020-03-27 Outpatient YEN, AI-KISHORE [facility] SLEH [id number] SLEH 00:00:00 00:00:00 2020-03-27 2020-03-27 Outpatient EL YEN, AI-KISHORE [facility] SLEH [id number] SLEH 00:00:00 00:00:00 2020-03-27 2020-03-27 Outpatient EL YEN, AI-KISHORE [facility] SLE [id number] SLEH 00:00:00 00:00:00 2020-03-27 2020-03-27 Outpatient BIRD YEN SLE SLE [id number] SLEH 00:00:00 00:00:00 2020-02-28 2020-02-28 Office Omar Yen [facility] 1.2.840.114 [id number] 11:09:47 12:43:20 Visit Edjanine Seymour 350.1.13.21 0.2.7.2.686 [id number] 530 2020-02-28 2020-02-28 Office Omar Yen [facility] 1.2.840.114 [id number] [facility] 11:09:47 12:43:20 Visit Edjanine Seymour 350.1.13.21 Co llege 0.2.7.2.686 of [id number] [facility] 530 e 2020-02-21 2020-02-21 Office GUILLERMINA Jaimes 1.2.840.114 [id number] 15:30:00 15:45:00 Visit Vita P AMBULATOR 350.1.13.21 Y 0.2.7.2.686 [id number] 300 2020-02-21 2020-02-21 Office GUILLERMINA Jaimes 1.2.840.[id number] [place] [address] 15:30:00 15:45:00 Visit Viat P AMBULATOR 350.1.13.21 College Y 0.2.7.2.686 of [id number] [facility] 300 e 2020-01-27 2020-01-27 Outpatient SLE SLEH [id number] SLEH 00:00:00 00:00:00 2020-01-17 2020-01-17 Office Nestor Fuentes 1.2.840. 114 [id number] 08:19:54 08:49:54 Visit C-Arm, Pmr Siemens AMBULATOR 350.1.13. 21 Y 0.2.7.2.686 [id number] 800 2020-01-17 2020-01-17 Office Nestor Fuentes BCM 1.2.840. 114 [id number] [facility] 08:19:54 08:49:54 Visit C-Arm, Pmr Siemens AMBULATOR 350.1.13. 21 College Y 0.2.7.2.686 of 388.5048508 [facility] khushi 800 e 2020-01-17 2020-01-17 Outpatient EL SLEH SLEH [id number] SLEH 00:00:00 00:00:00 2020-01-10 2020-01-10 Office Omar Yen [facility] 1.2.840.114 [id number] 09:17:20 10:09:32 Visit Edward Seymour 350.1.13.21 0.2.7.2.686 [id number] 530 2020-01-10 2020-01-10 Office Omar Yen [facility] 1.2.840.114 [id number] [facility] 09:17:20 10:09:32 Visit Edward Seymour 350.1.13.21 Co llege 0.2.7.2.686 of 158.6878479 [facility] khushi 530 e 2020-01-06 2020-01-06 Ancillary 1.2.840.8 [id number] [facility] 15:34:38 19:30:50 Procedure 06505.1.1 Co llege 3.210.2.7 of .3.850058 Medici n .8 e 2020-01-06 2020-01-06 Office Giancarlo Doherty 1.2.840.0 [id number] [facility] 12:54:16 17:06:02 Visit 80153.1.1 Shanel ege 3.210.2.7 of .3.413678 Medici n .8 e 2020-01-06 2020-01-06 Office Giancarlo Doherty [facility] 1.2.840.114 [id number] 12:54:16 15:16:58 Visit AMBULATOR 350.1.13.21 Y 0.2.7.2.686 [id number] 800 2020-01-06 2020-01-06 Telephone Omar Yen 1.2.840.5 [id number] [facility] 00:00:00 00:00:00 Edward 34898.1.1 Shanel ege 3.210.2.7 of .3.070814 Medici n .8 e 2020-01-06 2020-01-06 Abstract Giancarlo Doherty 1.2.840.4 [id number] [facility] 00:00:00 00:00:00 80719.1.1 Shanel ege 3.210.2.7 of .3.899129 Medici n .8 e 2020-01-06 2020-01-06 Abstract Chas Giancarlo 1.2.840.1 [id number] [facility] 00:00:00 00:00:00 28243.1.1 Shanel ege 3.210.2.7 of .3.677791 Medici n .8 e 2020-01-06 2020-01-06 Travel 1.2.840.1 1.2.917.978 [id number] [facility] 00:00:00 00:00:00 34227.1.1 350.1.13.21 College 3.210.2.7 0.2.7.3.698 of .3.179580 084.8 Medici n .8 e 2020-01-06 2020-01-06 Telephone Fiona, 1.2.840.3 [id number] [facility] 00:00:00 00:00:00 Vita P 05551.1.1 Shanel ege 3.210.2.7 of .3.019121 Medici n .8 e 2020-01-05 2020-01-05 Telephone Fiona, 1.2.840.9 [id number] [facility] 00:00:00 00:00:00 Vita P 63966.1.1 Shanel ege 3.210.2.7 of .3.615032 Medici n .8 e 2020-01-05 2020-01-05 Orders Fiona, 1.2.840.9 [id number] [facility] 00:00:00 00:00:00 Only Vita P 84061.1.1 Shanel ege 3.210.2.7 of .3.292525 Medici n .8 e 2020-01-04 2020-01-04 Travel 1.2.840.1 1.2.681.395 [id number] [facility] 00:00:00 00:00:00 76320.1.1 350.1.13.21 College 3.210.2.7 0.2.7.3.698 of .3.104240 084.8 Medici n .8 e 2019-12-29 2019-12-29 Abstract Fiona, 1.2.840.7 [id number] [facility] 00:00:00 00:00:00 Vita P 50877.1.1 Shanel ege 3.210.2.7 of .3.617323 Medici n .8 e 2019-12-29 2019-12-29 Abstract Fiona, 1.2.840.3 [id number] [facility] 00:00:00 00:00:00 Vita P 07800.1.1 Shanel ege 3.210.2.7 of .3.042290 Medici n .8 e 2019-12-27 2019-12-27 Outpatient [facility]SHAD [facility] [id number] [facility] 00:00:00 00:00:00 2019-12-27 2019-12-27 Outpatient FARSHAD FRANCESNINO [facility] [id number] [facility] 00:00:00 00:00:00 2019-12-23 2019-12-23 Telephone Omar Yen 1.2.840.6 [id number] [facility] 00:00:00 00:00:00 Edward 02137.1.1 Shanel ege 3.210.2.7 of .3.915847 Medici n .8 e 2019-12-20 2019-12-20 [place] [address], [facility] 1.2.840.8 [id number] [facility] 09:51:46 23:59:00 Encounter Chair 25495.1.1 Co llege 3.210.2.7 of .3.116893 Medici n .8 e 2019-12-20 2019-12-20 Office Omar Yen 1.2.840.8 [id number] [facility] 08:33:43 10:00:25 Visit Edward 86976.1.1 Shanel ege 3.210.2.7 of .3.354791 Medici n .8 e 2019-12-20 2019-12-20 Travel 1.2.840.1 1.2.129.680 7696 [id number] [facility] 00:00:00 00:00:00 96848.1.1 350.1.13.21 College 3.210.2.7 0.2.7.3.698 of .3.587568 084.8 Medici n .8 e 2019-12-20 2019-12-20 Orders Omar Yen 1.2.840.0 [id number] [facility] 00:00:00 00:00:00 Only Edjanine 84384.1.1 Shanel ege 3.210.2.7 of .3.943350 Medici n .8 e 2019-12-19 2019-12-19 Ancillary 1.2.840.3 [id number] 756 [id number] [facility] 07:37:46 10:52:13 Procedure 95721.1.1 Co llege 3.210.2.7 of .3.963251 Medici n .8 e 2019-12-13 2019-12-19 Office Uzma, 1.2.840.1 [id number] 754 00010 [facility] 13:53:26 09:40:45 Visit Shun 08843.1.1 Shanel ege 3.210.2.7 of .3.258895 Medici n .8 e 2019-12-19 2019-12-19 Ancillary 1.2.840.2 [id number] [id number] [facility] 07:37:33 09:27:36 Procedure 58197.1.1 Co llege 3.210.2.7 of .3.808339 Medici n .8 e 2019-12-19 2019-12-19 Travel 1.2.840.1 1.2.630.640 8843 1217 [facility] 00:00:00 00:00:00 56258.1.1 350.1.13.21 College 3.210.2.7 0.2.7.3.698 of .3.460493 084.8 Medici n .8 e 2019-12-16 2019-12-16 Telephone Devlin, 1.2.840.0 [id number] 756 [id number] [facility] 00:00:00 00:00:00 Manny Garcian 97950.1.1 Co llege 3.210.2.7 of .3.481417 Medici n .8 e 2019-12-13 2019-12-13 Office Uzma, BCSaul 1.2.782.326 [id number] [id number] 13:53:26 14:53:26 Visit Shun AMBULATOR 350.1.13.21 Y 0.2.7.2.686 [id number] 800 2019-12-13 2019-12-13 Office Frandy, BCM 1.2.840.114 [id number] 10:03:47 13:58:12 Visit Manny Leos AMBULATOR 350.1.13.21 Y 0.2.7.2.686 [id number] 375 2019-12-13 2019-12-13 Office Devlin, 1.2.840.8 [id number] [facility] 10:03:47 13:58:12 Visit Manny Deric 35585.1.1 Co llege 3.210.2.7 of .3.877684 Medici n .8 e 2019-12-13 2019-12-13 Travel 1.2.840.1 1.2.102.659 2789 6204 [facility] 00:00:00 00:00:00 93415.1.1 350.1.13.21 College 3.210.2.7 0.2.7.3.698 of .3.092849 084.8 Medici n .8 e 2019-12-08 2019-12-08 Telephone Devlin, 1.2.840.3 [id number] 755 [id number] [facility] 00:00:00 00:00:00 Manny Garcian 45459.1.1 Co llege 3.210.2.7 of .3.774745 Medici n .8 e 2019-12-06 2019-12-06 Hospital 13, Bcc 1.2.840.1 [id number] [id number] [facility] 10:00:00 23:59:00 Encounter Chair 07444.1.1 Co llege 3.210.2.7 of .3.278778 Medici n .8 e 2019-12-06 2019-12-06 Office Omar Yen 1.2.840.6 [id number] [facility] 09:04:35 13:25:56 Visit Edward 07257.1.1 Shanel ege 3.210.2.7 of .3.762353 Medici n .8 e 2019-12-06 2019-12-06 Office Omar Yen [facility] 1.2.840.114 752 [id number] 09:04:35 09:37:30 Visit Edward Seymour 350.1.13.21 0.2.7.2.686 [id number] 530 2019-12-06 2019-12-06 Travel 1.2.840.1 1.2.728.597 9719 9203 [facility] 00:00:00 00:00:00 35847.1.1 350.1.13.21 College 3.210.2.7 0.2.7.3.698 of .3.509155 084.8 Medici n .8 e 2019-12-02 2019-12-02 Telephone Fiona, 1.2.840.5 [id number] 754 [id number] [facility] 00:00:00 00:00:00 Vita P 69498.1.1 Shanel ege 3.210.2.7 of .3.323221 Medici n .8 e 2019-11-28 2019-11-30 Outside [facility] [id number] [facility]oria 13:59:25 04:59:59 Medical r Neurology 01 l [facility] 2019-11-29 2019-11-29 Telephone Fiona, 1.2.840.9 [id number] 753 [id number] [facility] 00:00:00 00:00:00 Vita P 99721.1.1 Shanel ege 3.210.2.7 of .3.684714 Medici n .8 e 2019-11-29 2019-11-29 Telephone Fiona, 1.2.840.5 [id number] 753 [id number] [facility] 00:00:00 00:00:00 Vita P 41118.1.1 Shanel ege 3.210.2.7 of .3.285882 Medici n .8 e 2019-11-28 2019-11-28 Telephone Fiona, 1.2.840.3 [id number] 753 [id number] [facility] 00:00:00 00:00:00 Vita P 37834.1.1 Shanel ege 3.210.2.7 of .3.908559 Medici n .8 e 2019-11-22 2019-11-22 [facility] 13, [facility] 1.2.840.2 [id number] 7495 3660 [facility] 10:00:00 23:59:00 Encounter Chair 31886.1.1 Co llege 3.210.2.7 of .3.845904 Medici n .8 e 2019-11-22 2019-11-22 Office Omar Yen 1.2.840.8 [id number] [facility] 08:40:10 11:15:19 Visit Eyad 66817.1.1 Shanel ege 3.210.2.7 of .3.775499 Medici n .8 e 2019-11-22 2019-11-22 Office Omar Yen [facility] 1.2.840.114 [id number] 08:40:10 09:00:10 Visit Eyad Chadwickr 350.1.13.21 0.2.7.2.686 [id number] 530 2019-11-22 2019-11-22 Travel 1.2.840.1 1.2.227.489 5333 8456 [facility] 00:00:00 00:00:00 06177.1.1 350.1.13.21 College 3.210.2.7 0.2.7.3.698 of .3.505327 084.8 Medici n .8 e 2019-11-08 2019-11-08 [facility] 13, [facility] 1.2.840.3 [id number] 7495 3659 [facility] 10:00:00 23:59:00 Encounter Chair 49470.1.1 Co llege 3.210.2.7 of .3.012319 Medici n .8 e 2019-11-08 2019-11-08 Office Omar Yen 1.2.840.5 [id number] [facility] 09:01:33 10:15:07 Visit Edward 20347.1.1 Shanel ege 3.210.2.7 of .3.316024 Medici n .8 e 2019-11-08 2019-11-08 Office Bird Yen [facility] 1.2.840.114 [id number] 09:01:33 10:15:07 Visit E Seymour 350.1.13.21 0.2.7.2.686 [id number] 530 2019-11-08 2019-11-08 Travel 1.2.840.1 1.2.612.011 4795 9 [facility] 00:00:00 00:00:00 76780.1.1 350.1.13.21 College 3.210.2.7 0.2.7.3.698 of .3.396459 084.8 Medici n .8 e 2019-11-01 2019-11-01 Outpatient [facility] SLE [id number] 3-2 [facility] 00:00:00 00:00:00 [id number] 2019-11-01 2019-11-01 Orders Alayon, 1.2.840.1 [id number] [facility] 00:00:00 00:00:00 Only [facility] 91407.1.1 Co llege 3.210.2.7 of .3.353720 Medici n .8 e 2019-10-31 2019-10-31 Orders Rychlec, 1.2.840.0 [id number] 7497 [id number] [facility] 00:00:00 00:00:00 Only Kayleigh 15374.1.1 Shanel ege 3.210.2.7 of .3.830697 Medici n .8 e 2019-10-31 2019-10-31 Telephone Frances Yenkishore 1.2.840.8 [id number] [facility] 00:00:00 00:00:00 Edward 68756.1.1 Shanel ege 3.210.2.7 of .3.547986 Medici n .8 e 2019-10-27 2019-10-27 Outpatient [facility] [id number] 3-2 [facility] 12:42:06 23:59:00 [id number] 2019-10-27 2019-10-27 Orders Fiona, 1.2.840.7 [id number] 015 [facility] 00:00:00 00:00:00 Only Vita P 36928.1.1 Shanel ege 3.210.2.7 of .3.813662 Medici n .8 e 2019-10-26 2019-10-26 Telephone YeOmar de los santos 1.2.840.8 [id number] [facility] 00:00:00 00:00:00 Edward 25557.1.1 Shanel ege 3.210.2.7 of .3.986621 Medici n .8 e 2019-10-26 2019-10-26 Telephone Omar Yen 1.2.840.4 [id number] [facility] 00:00:00 00:00:00 Edward 60236.1.1 Shanel ege 3.210.2.7 of .3.360382 Medici n .8 e 2019-10-25 2019-10-25 Office Omar Yen 1.2.840.9 [id number] [facility] 12:05:50 14:39:35 Visit Edward 11178.1.1 Shanel ege 3.210.2.7 of .3.291459 Medici n .8 e 2019-10-25 2019-10-25 Office Bird Yen [facility] 1.2.840.114 [id number] 12:05:50 13:31:23 Visit E Seymour 350.1.13.21 0.2.7.2.686 [id number] 530 2019-10-25 2019-10-25 Travel 1.2.840.1 1.2.748.045 8906 6555 [facility] 00:00:00 00:00:00 07779.1.1 350.1.13.21 College 3.210.2.7 0.2.7.3.698 of .3.884395 084.8 Medici n .8 e 2019-10-24 2019-10-24 Telephone Fiona, 1.2.840.0 [id number] 748 [id number] [facility] 00:00:00 00:00:00 Vita P 87725.1.1 Shanel ege 3.210.2.7 of .3.286988 Medici n .8 e 2019-10-20 2019-10-21 Clinical Fiona, 1.2.840.4 [id number] 7485 8468 [facility] 11:45:00 11:15:55 Support Vita P 73673.1.1 Hsanel ege 3.210.2.7 of .3.049112 Medici n .8 e 2019-10-21 2019-10-21 [facility] [id number] Common 10:33:00 10:33:00 t Specialty/U Sp viridiana Specialty rology - [facility] /[facility] Clinic [facility] 2019-10-21 2019-10-21 Telephone Fiona, 1.2.840.9 [id number] 748 [id number] [facility] 00:00:00 00:00:00 Vita P 91772.1.1 Shanel ege 3.210.2.7 of .3.447353 Medici n .8 e 2019-10-21 2019-10-21 Telephone Fiona, 1.2.840.9 [id number] 748 [id number] [facility] 00:00:00 00:00:00 Vita P 34465.1.1 Shanel ege 3.210.2.7 of .3.917005 Medici n .8 e 2019-10-21 2019-10-21 Telephone Omar Yen 1.2.840.3 [id number] [facility] 00:00:00 00:00:00 Edward 61358.1.1 Shanel ege 3.210.2.7 of .3.881776 Medici n .8 e 2019-10-19 2019-10-20 Outpatient nullFlavo MNA [id number] [facility] 20:30:00 04:59:59 r Neurology 13 l [place] Aleksey 2019-10-19 2019-10-19 Telephone Fiona, 1.2.840.3 [id number] [id number] [facility] 00:00:00 00:00:00 Vita P 90212.1.1 Shanel ege 3.210.2.7 of .3.838064 Medici n .8 e 2019-10-18 2019-10-18 Orders Fiona, 1.2.840.9 [id number] 095 [facility] 00:00:00 00:00:00 Only Vita P 37158.1.1 Shanel ege 3.210.2.7 of .3.923864 Medici n .8 e 2019-10-18 2019-10-18 Telephone Fiona, 1.2.840.5 [id number] 748 [id number] [facility] 00:00:00 00:00:00 Vita P 08164.1.1 Shanel ege 3.210.2.7 of .3.687647 Medici n .8 e 2019-10-17 2019-10-17 Telephone Fiona, 1.2.840.2 [id number] 748 [id number] [facility] 00:00:00 00:00:00 Vita P 87033.1.1 Sahnel ege 3.210.2.7 of .3.639028 Medici n .8 e 2019-10-14 2019-10-14 Outpatient [facility] [id number] 3-2 [facility] 06:14:00 06:14:00 [id number] 2019-10-14 2019-10-14 Orders Fiona, 1.2.840.1 [id number] [facility] 00:00:00 00:00:00 Only Vita P 82827.1.1 Shanel ege 3.210.2.7 of .3.972568 Medici n .8 e 2019-10-14 2019-10-14 Telephone Fiona, 1.2.840.1 [id number] 747 [id number] [facility] 00:00:00 00:00:00 Vita P 51379.1.1 Shanel ege 3.210.2.7 of .3.390479 Medici n .8 e 2019-10-14 2019-10-14 Abstract Fiona, 1.2.840.3 [id number] 7479 7074 [facility] 00:00:00 00:00:00 Vita P 60457.1.1 Shanel ege 3.210.2.7 of .3.590329 Medici n .8 e 2019-10-13 2019-10-13 Telephone Fiona, 1.2.840.7 [id number] 747 [id number] [facility] 00:00:00 00:00:00 Vita P 41914.1.1 Shanel ege 3.210.2.7 of .3.306789 Medici n .8 e 2019-10-13 2019-10-13 Abstract Fiona, 1.2.840.4 [id number] [id number] [facility] 00:00:00 00:00:00 Vita P 51000.1.1 Shanel ege 3.210.2.7 of .3.446959 Medici n .8 e 2019-10-12 2019-10-12 Outpatient [facility] [id number] 3-2 [facility] 00:00:00 00:00:00 [id number] 2019-10-10 2019-10-10 Outpatient [facility] [id number] 3-2 [facility] 00:00:00 00:00:00 [id number] 2019-10-10 2019-10-10 Telephone Fiona, 1.2.840.5 [id number] 747 [id number] [facility] 00:00:00 00:00:00 Vita P 60645.1.1 Shanel ege 3.210.2.7 of .3.017824 Medici n .8 e 2019-10-04 2019-10-04 Office Fiona, [facility] 1.2.840.114 [id number] [facility] 15:02:08 15:36:29 Visit Vita P AMBULATOR 350.1.13.21 College Y 0.2.7.2.686 of 919.3010899 Medi khushi 300 e 2019-10-04 2019-10-04 Office Fiona, [facility] 1.2.840.114 [id number] 15:02:08 15:36:29 Visit Vita P AMBULATOR 350.1.13.21 Y 0.2.7.2.686 [id number] 300 2019-09-21 2019-09-21 [facility] [id number] Common 15:44:00 15:44:00 t Specialty/U Sp viridiana Specialty rology - [facility] 2019-09-15 2019-09-16 Outpatient nullFlavo MNA [id number] [facility] 22:00:00 05:59:59 r Neurology 12 l Rhiannon Smithann 2019-09-13 2019-09-13 [facility] [id number] Common 13:15:00 13:15:00 t Specialty/U Sp viridiana Specialty rology - [facility] 2019-08-18 2019-08-19 Outpatient nullFlavo MNA [id number] [facility] 20:45:00 05:59:59 r Neurology 10 l [place] Smithann 2019-07-22 2019-07-23 Outpatient nullFlavo MNA [id number] [facility] 15:15:00 05:59:59 r Neurology 11 l Rhiannon Smithann 2019-07-07 2019-07-08 Outpatient nullFlavo MNA [id number] [facility] 20:45:00 05:59:59 r Neurology 09 l [place] Aleksey 2019-03-03 2019-03-04 Outpatient nullFlavo MNA [id number] [facility] 20:15:00 04:59:59 r Neurology 08 l Rhiannon Smithann 2019-02-02 2019-02-03 Outpatient nullFlavo MNA [id number] [facility] 20:15:00 04:59:59 r Neurology 07 l Rhiannon Smithann 2018-12-17 2018-12-18 Outpatient nullFlavo MNA [id number] [facility] 20:30:00 04:59:59 r Neurology 06 l Rhiannon Smithann 2018-12-03 2018-12-03 Ambulatory nullFlavo MNA [id number] [facility] 18:30:00 18:30:00 Pre-Reg r Neurology 05 l Rhiannon Smithann 2018-07-30 2018-07-31 Outpatient nullFlavo MNA [id number] [facility] 19:00:00 05:59:59 r Neurology 04 l Rhiannon Smithann 2018-07-08 2018-07-10 Phone nullFlavo MNA [id number] [facility] 16:46:00 05:59:59 Message r Neurology 00 l Rhiannon Aleksey 2018-06-18 2018-06-19 Outpatient nullFlavo MNA [id number] [facility] 19:15:00 05:59:59 r Neurology 03 lillian Ryder 2018-04-01 2018-04-01 [facility] [id number] [facility] 14:15:00 14:15:00 02 lillian Ryder 2017-12-31 2017-12-31 Outpatient DOMENIC IE [id number] [facility] 13:15:00 13:15:00 01 lillian Ryder 2017-09-01 2017-09-01 [facility] [id number] [facility] 13:15:00 13:15:00 00 lillian Ryder Results Test Description Test Time Test Comments Results Result [facility] e Comments ANG, CV ACCESS, 2022-03-20 Reason for FLUORO 15:46:00 Exam:->Malignant neoplasm of overlapping sites [facility] - of bladder, [facility] : 1945 Sex: F *FINAL REPORT Right Chest Port-A-Cath removal. History: Malignant neoplasm of overlapping sites of bladder, Port-A-Cath in place Modality: None. Sedation: No sedation. Vital signs were monitored throughout the procedure by a nurse, and remained stable. Physician intra-service time was 35 minutes. Duty Engineer: Meño Aflaro MD. Approach: Right anterior chest. Estimated blood [...] Alfaro Verified Date/Time: 03/20/2022 15:46:55 Reading Location: [facility] Radiology Reading Room HROMBIN TIME/INR 2022-03-18 11:58:21 Test Item Value Reference Range Interpretation Comme nts PROTIME (BEAKER) (test code 14.6 seconds 11.9-14.2 H = 759) INR (BEAKER) (test code = 1.21 See_Comment [ Automated message] The [employer] system which Léa et Léo nerated this result transmit tom reference range: <=5.90. The reference range was not u sed to interpret this result as normal/abnormal . RECOMMENDED COUMADIN/WARFARIN INR THERAPY RANGESSTANDARD DOSE: 2.0 - 3.0 Includes: PROPHYLAXIS for venous thrombosis, systemic embolization; TREATMENT for venous thrombosis and/or pulmonary embolus.HIGH RISK: Target INR is 2.5-3.5 for patients with mechanical heart valves.POC-Glucose [id number] 11:50:47 Test Item Value Reference Range Interpretation Comments POC-Glucose Meter (test 91 mg/dL 70-110 : TE STED AT [facility] code = 1538) [address] [place] [address], [facility] 30: Insurance Business Analyst/Techni kylie ID = [id number] for Sarsoza, Gemma Lab Interpretation (test Normal code = 46645-7) [facility] [id number] 11:50:47 Test Item Value Reference Range Interpretation Comments POC-Glucose Meter (test 91 mg/dL 70-110 : [facility] = [facility] [address] [place] [address], [facility] 30: Insurance Business Analyst/Techni kylie ID = [id number] for Sarsoza, Gemma Lab Interpretation (test Normal code = 54085-0) [facility]-Glucose [id number] 11:50:47 Test Item Value Reference Range Interpretation Comments POC-Glucose Meter (test 91 mg/dL 70-110 : TE STED AT [facility] code = 1538) [address] [place] [address], 770 30: Insurance Business Analyst/Techni kylie ID = [id number] for Sarsoza, Gemma Lab Interpretation (test Normal code = 12957-7) [facility] [id number] 11:50:47 Test Item Value Reference Range Interpretation Comments POC-GLUCOSE METER 91 mg/dL 70-110 : TESTED A T [facility] 6720 (BEAKER) (test code = ANDREA Mcfarland [facility], 1538) [address]: Insurance Business Analyst/Techni kylie ID = [id number] for Sars paulie, Gemma CBC W/PLT COUNT & AUTO [id number] 11:50:17 Test Item Value Reference Range Interpretation [...] PERCENT (BEAKER) (test code = 2801) VITAMIN [id number] 11:04:45 Test Item Value Reference Range Interpretation Comments VITAMIN B-12 (test 1015 PG/ML 200-950 H Unless Otherwise code = 2132-9) Indicated, Al l Testing Perform ed At: [facility], [address] [place] [address] Laborator y Director: Robbie Wagner M.D. CLIA Number [id number] Cap Accreditation [place] o. [id number] BALBIR (test code = BALBIR) PT FASTING Lab Interpretation Abnormal (test code = 76410-2) [facility] T4 [id number] 11:04:45 Test Item Value Reference Range Interpretation Comments THYROID STIMULATING See_Comment [Automa tom message] HORMONE (test code = The sys tem which 11676-0) generated this result transmitted ref erence range: 0.400 - 4.100 UIU/ML. The ref erence range was not u sed to interpret this result as normal/abnor mal. FREE T4 (test code = See_Comment Unless Otherwise 3024-7) Indicated, All Testing Perform ed At: [facility], [address] [place] [address] Laborator y Director: Robbie Wagner M.D. CLIA Number [id number] Cap Accreditation [place] o. 75808-24 [Autom ated message] The sy stem which generated this result transmit tom reference range : 0.80 - 1.90 NG/DL. T he reference range was not used to int erpret this result as normal/abnormal . BALBIR (test code = BALBIR) PT FASTING [facility]OL[facility] [id number] 19:07:17 Test Item Value Reference Range Interpretation Comments GLUCOSE (test code = See_Comment H [Autom ated message] 2345-7) The system [employer] generated this result transmitted ref erence range: [...] [Auto mated message] = 2160-0) The system [employer] generated this result transmitted ref erence range: 0.6 - 1. 3 MG/DL. The refe rence range was not u sed to interpret this result as normal/abnor mal. EGFR (test code = See_Comment L [Automate d message] 06268-2) The system [employer] generated this result transmitted ref erence range: >60 ML/MIN/1.73. Th e reference range was not used to int erpret this result as normal/abnormal . BUN/CREAT RATIO (test See_Comment [Auto mated message] code = 3097-3) The system [facility] generated this result transmitted ref erence range: 6 - 28 R ATIO. The reference r anil was not used to interpret this result as normal/abnor mal. SODIUM (test code = See_Comment [Automa tom message] 2951-2) The system [employer] generated this result transmitted ref erence range: 133 - 14 6 MEQ/L. The refe rence range was not u sed to interpret this result as normal/abnor mal. POTASSIUM (test code = See_Comment [Aut omated message] 2823-3) The system [employer] generated this result transmitted ref erence range: 3.5 - 5. 4 MEQ/L. The refe rence range was not u sed to interpret this result as normal/abnor mal. CHLORIDE (test code = See_Comment H [Auto mated message] 2074-0) The system [employer] generated this result transmitted ref erence range: 100 - 11 2 MEQ/L. The refe rence range was not u sed to interpret this result as normal/abnor mal. CO2 (test code = See_Comment [Automated message] 8) The system [facility] h generated this result transmitted ref erence range: 21 - 30 MEQ/L. The reference r anil was not used to interpret this result as normal/abnor mal. CALCIUM (test code = See_Comment [Autom ated message] 60687-3) The system [facility] [employer] generated this result transmitted ref erence range: 8.5 - 10 .5 MG/DL. The refe rence range was not u sed to interpret this result as normal/abnor mal. PROTEIN TOTAL (test See_Comment [Automa tom message] code = 2885-2) The system [facility] generated this result transmitted ref erence range: 6.1 - 8. 1 G/DL. The refer ence range was not u sed to interpret this result as normal/abnor mal. ALBUMIN (test code = See_Comment [Autom ated message] 16614-7) The system [employer] generated this result transmitted ref erence range: 3.4 - 4. 8 G/DL. The refer ence range was not u sed to interpret this result as normal/abnor mal. GLOBULINS, SERUM, See_Comment [Automate d message] TOTAL (test code = The syste m which 40625-5) generated this result transmitted ref erence range: 1.9 - 3. 7 G/DL. The refer ence range was not u sed to interpret this result as normal/abnor mal. A/G RATIO (test code = See_Comment [Aut omated message] 2469-0) The system [facility] [employer] generated this result transmitted ref erence range: 1.0 - 2. 6 RATIO. The refe rence range was not u sed to interpret this result as normal/abnor mal. BILIRUBIN TOTAL (test See_Comment [Auto mated message] code = 1975-2) The system [facility] generated this result transmitted ref erence range: <=1.2 MG /DL. The reference r anil was not used to interpret this result as normal/abnor mal. ALKALINE PHOSPHATASE 71 U/L 30-132 (test code = 6768-6) AST (SGOT) (test code 26 U/L 7-56 = 1920-8) ALT (SGPT) (test code 29 U/L 3-47 TESTI NG PERFORMED AT = 1744-2) [facility] [address] [facility] D, JANET E5.106 [id number] CLIA NO. [id number] Unle ss Otherwise Indic ated, All Testing Per formed At: [facility], [address] [place] [id number] Laborator y Director: Robbie Wagner M.D. CLIA Number [id number] Cap Accreditation N o. BALBIR (test code = BALBIR) PT FASTING Lab Interpretation Abnormal (test code = 05037-9) [id number] 19:07:05 Test Item Value Reference Range Interpretation Comments MAGNESIUM (test code See_Comment TESTI NG PERFORMED AT = 97607-6) [facility] PATH[facility], [place]. [address] [facility], [address] E5.106 770 30 CLIA NO. [id number] Unless Otherwise Indic ated, All Testing Per formed At: [facility], [address] [place] [id number] Laboratory Dire ctor: Robbie de los santos M.D. CLIA Number [id number] Cap Accreditati on No. [Autom ated message] The sy stem which generated this result transmit tom reference range : 1.6 - 2.6 MG/DL. The reference range was not used to interpr et this result as normal/abnormal . BALBIR (test code = PT FASTING BALBIR) [facility] WITH [id number] 18:30:05 Test Item Value Reference Range Interpretation Comments WHITE BLOOD CELL COUNT See_Comment [Aut omated message] (test code = 67647-7) The sy stem which generated this result transmit tom reference range : 3.5 - 11.0 K/UL. [facility] reference range was not used to interpret this result as normal/abnormal . RED BLOOD CELL COUNT See_Comment [Autom ated message] (test code = 81730-2) The sy stem which generated this result transmit tom reference range : 3.80 - 5.40 M/U L. The reference r anil was not used to interpret this result as normal/abnormal . HEMOGLOBIN (test code = See_Comment [Au tomated message] 718-7) The system [employer] h generated this result transmit tom reference range : 11.5 - 15.5 G/D L. The reference r anil was not used to interpret this result as normal/abnormal . HEMATOCRIT (test code = 42.3 % 34-45 04567-5) MEAN CORPUSCULAR VOLUME 90.2 fL 80-99 (test code = 37676-2) MEAN CORPUSCULAR 29.2 PG 25-33 HEMOGLOBIN (test code = 84731-7) MEAN CORPUSCULAR See_Comment [Automated message] HEMOGLOBIN CONC (test The sy stem which code = 48893-7) generated th is result transmit tom reference range : 31.0 - 36.0 G/D L. The reference r anil was not used to interpret this result as normal/abnormal . RED CELL DISTRIBUTION 15.2 % 11.5-15 H WIDTH (test code = 26514-4) NEUTROPHILS % (test 58 % code = 47269-9) LYMPHOCYTES % (test 33 % code = 13811-9) MONOCYTES % (test code 8 % = 85479-8) EOSINOPHILS % (test 1 % code = 76587-9) BASOPHILS % (test code 0 % = 10082-6) PLATELET COUNT (test See_Comment TESTIN G PERFORMED code = 31951-9) AT [facility]. [address] D, JANET E5.106 [facility] [place] [address] CLIA N O. [id number] [Automated mess age] The system [employer] generated this result transmit tom reference range : 130 - 400 K/UL. The reference range was not used to interpret this result as normal/abnormal . NEUTROPHILS ABSOLUTE See_Comment [Autom ated message] COUNT (test code = The syste m which 97524-2) generated this result transmit tom reference range : 1.50 - 7.50 K/U L. The reference r anil was not used to interpret this result as normal/abnormal . LYMPHOCYTES ABSOLUTE See_Comment [Autom ated message] COUNT (test code = The syste m which 98599-0) generated this result transmit tom reference range : 1.00 - 4.00 K/U L. The reference r anil was not used to interpret this result as normal/abnormal . MONOCYTES ABSOLUTE See_Comment [Automat ed message] COUNT (test code = The systcornelius m which 14913-1) generated this result transmit tom reference range : 0.20 - 1.00 K/U L. The reference r anil was not used to interpret this result as normal/abnormal . BASOPHILS ABSOLUTE See_Comment Unless Otherwise COUNT (test code = Indicated , All 85536-2) Testing Perform ed At: [facility], [address] [place] [address], [place] [address] Laborator y Director: Robbie Wagner M.D. [place] Number [id number] [place] [address]-12 [Automated mess age] The system [employer] h generated this result transmit tom reference range : 0.00 - 0.20 K/U L. The reference r anil was not used to interpret this result as normal/abnormal . BALBIR (test code = BALBIR) PT FASTING Lab Interpretation Abnormal (test code = 76669-2) [facility] [id number] 10:07:00Unlisted Reason for Exam - Click Yes and Enter Reason Below->Yes Unlisted Reason for Exam->Malignant neoplasm of overlapping sites of bladder [facility]: ALEXANDRIA MERCADO AL : 1945 [...] pelviectasis is unchanged. Status post cystectomy with Chenango pouch. Proximal remains thickened. No evidence of bowel obstruction, or abnormal bowelwall thickening. There is no ascites, free air or adenopathy. Bony structures demonstrate degenerative changes. Impression: Previously seen right lower lobe pulmonary nodules are either smaller or resolved. No new disease identified in the chest, abdomen or pelvis. Persistent wall thickening of the Chenango pouch. Cholelithiasis. Punctate nonobstructive stone in the right kidney. Signed: Beto Bianchi [facility] Verified Date/Time: 02/05/2022 10:07:02 Reading [facility] Consult Reading Room CT, [id number] 10:07:00Unlisted Reason for Exam - Click Yes and Enter Reason Below->YesUnlisted Reason for Exam->Malignant neoplasm of overlapping sites of bladderIs this for enterography?->NoWill this procedure require oral contrast?->No [facility] : 1945 Sex: [...] pelviectasis is unchanged. Status post cystectomy with Chenango pouch. Proximal remains thickened. No evidence of bowel obstruction, or abnormal bowelwall thickening. There is no ascites, free air or adenopathy. Bony structures demonstrate degenerative changes. Impression: Previously seen right lower lobe pulmonary nodules are either smaller or resolved. No new disease identified in the chest, abdomen or pelvis. Persistent wall thickening of the Chenango pouch. Cholelithiasis. Punctate nonobstructive stone in the right kidney. Signed: [facility] Verified Date/Time: 02/05/2022 10:07:02 Reading Location: [facility] B1 C013X Ortho Consult Reading Room COMPREHENSIVE METABOLIC PANEL 2021-11-15 17:14:02 Test Item Value Reference Range Interpretation Comments GLUCOSE (test code = See_Comment [Autom ated message] 2345-7) The system [employer] generated this result transmitted ref erence range: [...] See_Comment [Au tomated message] 2160-0) The system [employer] generated this result transmitted ref erence range: 0.6 - 1. 3 MG/DL. The refe rence range was not u sed to interpret this result as normal/abnor mal. EGFR (test code = See_Comment [Automate d message] 30927-5) The system [employer] generated this result transmitted ref erence range: >60 ML/MIN/1.73. Th e reference range was not used to int erpret this result as normal/abnormal . BUN/CREAT RATIO (test See_Comment [Auto mated message] code = 3097-3) The system [facility] generated this result transmitted ref erence range: 6 - 28 R ATIO. The reference r anil was not used to interpret this result as normal/abnor mal. SODIUM (test code = See_Comment [Automa tom message] 2951-2) The system [employer] generated this result transmitted ref erence range: 133 - 14 6 MEQ/L. The refe rence range was not u sed to interpret this result as normal/abnor mal. POTASSIUM (test code = See_Comment [Aut omated message] 2823-3) The system [employer] generated this result transmitted ref erence range: 3.5 - 5. 4 MEQ/L. The refe rence range was not u sed to interpret this result as normal/abnor mal. CHLORIDE (test code = See_Comment [Auto mated message] 2074-0) The system [employer] generated this result transmitted ref erence range: 100 - 11 2 MEQ/L. The refe rence range was not u sed to interpret this result as normal/abnor mal. CO2 (test code = See_Comment L [Automated message] 1962-8) The system [employer] generated this result transmitted ref erence range: 21 - 30 MEQ/L. The reference r anil was not used to interpret this result as normal/abnor mal. CALCIUM (test code = See_Comment [Autom ated message] 02611-3) The system [employer] generated this result transmitted ref erence range: 8.5 - 10 .5 MG/DL. The refe rence range was not u sed to interpret this result as normal/abnor mal. PROTEIN TOTAL (test See_Comment [Automa tom message] code = 2885-2) The system [employer] generated this result transmitted ref erence range: 6.1 - 8. 1 G/DL. The reference r anil was not used to interpret this result as normal/abnor mal. ALBUMIN (test code = See_Comment [Autom ated message] 18245-0) The system [employer] generated this result transmitted ref erence range: 3.4 - 4. 8 G/DL. The reference r anil was not used to interpret this result as normal/abnor mal. GLOBULINS, SERUM, TOTAL See_Comment [Au tomated message] (test code = 22234-6) The sy stem which generated this result transmitted ref erence range: 1.9 - 3. 7 G/DL. The reference r anil was not used to interpret this result as normal/abnor mal. A/G RATIO (test code = See_Comment [Aut omated message] 1089-0) The system [employer] generated this result transmitted ref erence range: 1.0 - 2. 6 RATIO. The refe rence range was not u sed to interpret this result as normal/abnor mal. BILIRUBIN TOTAL (test See_Comment [Auto mated message] code = 1975-2) The system [employer] generated this result transmitted ref erence range: <=1.2 MG /DL. The reference r anil was not used to interpret this result as normal/abnor mal. ALKALINE PHOSPHATASE 62 U/L 30-132 (test code = 6768-6) AST (SGOT) (test code = 27 U/L 7-56 1920-8) ALT (SGPT) (test code = 25 U/L 3-47 GIULIA TING PERFORMED AT 1744-2) [facility], [place] [address] [facility] D, JANET E5.106 [address] CLIA NO. [id number] Unle ss Otherwise Indic ated, All Testing Per formed At: [facility], [address] [place] [address] Laborator y Director: Robbie Wagner M.D. CLIA Number [id number] [employer] N o. [id number] Lab Interpretation Abnormal (test code = 95606-2) [facility] [id number] 17:13:42 Test Item Value Reference Range Interpretation Comments MAGNESIUM (test code = See_[place] [address]-9) [facility], [place] CLIA NO. [id number] Unl ess Otherwise Indic ated, All Testing Perform ed At: [facility], [address] [place] [address] Laboratory Dire ctor: Gayla Chavez CLIA Number [id number] [employer] [place] o. [id number] [Automated mess age] The system which ge nerated this result tra nsmitted reference range : 1.6 - 2.6 MG/DL. The refe rence range was not used to interpret this result as normal/abnormal . [facility] CenterCB W/AUTO DIFF WITH [id number] 16:29:34 Test Item Value Reference Range Interpretation Comments WHITE BLOOD CELL COUNT See_Comment [Aut omated message] (test code = 77473-2) The sy stem which generated this result transmitted ref erence range: 3.5 - 11 .0 K/UL. The refer ence range was not u sed to interpret this result as normal/abnor mal. RED BLOOD CELL COUNT See_Comment [Autom ated message] (test code = 25310-3) The sy stem which generated this result [...] HEMATOCRIT (test code = 42.1 % 34.0-45.0 29849-1) MEAN CORPUSCULAR VOLUME 88.8 fL 80.0-99.0 (test code = 45969-7) MEAN CORPUSCULAR 28.7 PG 25.0-33.0 HEMOGLOBIN (test code = 82580-1) MEAN CORPUSCULAR See_Comment [Automated message] HEMOGLOBIN CONC (test The sy stem which code = 51322-3) generated th is result transmitted ref erence range: 31.0 - 3 6.0 G/DL. The refer ence range was not u sed to interpret this result as normal/abnor mal. RED CELL DISTRIBUTION 16.2 % 11.5-15.0 H WIDTH (test code = 96987-1) NEUTROPHILS % (test code 66 % = 76236-2) LYMPHOCYTES % (test code 23 % = 67468-7) MONOCYTES % (test code = 10 % 62217-3) EOSINOPHILS % (test code 1 % = 30150-6) BASOPHILS % (test code = 0 % 28848-5) PLATELET COUNT (test See_Comment TESTIN G PERFORMED AT code = 10577-4) [facility] [employer] [facility], [place]. [address] D, JANET E5.106 [address] CLIA NO. [id number] [Aut omated message] The sy stem which generated this result transmit tom reference range : 130 - 400 K/UL. The reference range was not used to int erpret this result as normal/abnormal . NEUTROPHILS ABSOLUTE See_Comment [Autom ated message] COUNT (test code = The syste m which 38381-4) generated this result transmitted ref erence range: 1.50 - 7 .50 K/UL. The refer ence range was not u sed to interpret this result as normal/abnor mal. LYMPHOCYTES ABSOLUTE See_Comment [Autom ated message] COUNT (test code = The syste m which 57246-8) generated this result transmitted ref erence range: 1.00 - 4 .00 K/UL. The refer ence range was not u sed to interpret this result as normal/abnor mal. MONOCYTES ABSOLUTE COUNT See_Comment [A utomated message] (test code = 03943-2) The sy stem which generated this result transmitted ref erence range: 0.20 - 1 .00 K/UL. The refer ence range was not u sed to interpret this result as normal/abnor mal. BASOPHILS ABSOLUTE COUNT See_Comment Un less Otherwise (test code = 58237-7) Indica tom, All Testing Perform ed At: [facility], [address] [place] [address], [place] [address] Laborator y Director: Robbie Wagner M.D. CLIA Number [id number] [employer] [place] o. [id number] [Autom ated message] The sy stem which generated this result transmit tom reference range : 0.00 - 0.20 K/UL. Th e reference range was not used to int erpret this result as normal/abnormal . Lab Interpretation (test Abnormal code = 52380-2) [facility]CT, [id number] 07:33:00T2N0 bladder cancer restagingPlease compare to prior imagingSchedule early to mid October 2021Unlisted Reason for Exam - Click Yes and Enter Reason Below->YesUnlisted Reason for Exam->Malignant neoplasm of overlapping sites of bladderIs this for enterography?->NoWill this procedure require oralcontrast?->No [facility]ESS, ALEXANDRIANOHEMY MELENDEZ : 1945 Sex: FFINAL REPORT CT [...] renal collecting system. Status post cystectomy, with Chenango pouch. Pouch wall remains mildly thickened, but [...] to follow-up. Persistent wall thickening of the Chenango pouch. Nonew disease identified in the abdomen or pelvis. Cholelithiasis. Signed: Beto Bianchi [facility] Verified Date/Time: 11/03/2021 07:33:51 CT, CHEST, WITH IV [id number] 07:33:00T2N0 bladder cancer restagingPlease compare to prior imagingSchedule early to mid October 2021UnlistedReason for Exam - Click Yes and Enter Reason Below->YesUnlisted Reason for Exam->Malignant neoplasm of overlapping sites of bladder [facility] : 1945 Sex: [...] renal collecting system. Status post cystectomy, with Chenango pouch. Pouch wall remains mildly thickened, but [...] to follow-up. Persistent wall thickening of the Chenango pouch. Nonew disease identified in the abdomen or pelvis. Cholelithiasis. Signed: Beto Bianchi [facility] Verified Date/Time: 11/03/2021 07:33:51 POCT URINALYSIS [id number] 00:00:00 Test Item Value Reference Range Interpretation Comments COLOR UA (test code = 5778-6) Yellow YELLOW/STRAW CLARITY UA (test code = 09916-5) Clear CLEAR GLUCOSE UA (test code = 5792-7) Negative NEGATIVE BILIRUBIN UA (test code = 5770-3) Negative NEGATIVE KETONES UA (test code = 32702-2) Negative NEGATIVE SPECIFIC GRAVITY UA (test code [...] NEGATIVE REDUCING SUBSTANCES URINE (test code = 36052-6) [facility]CT, [facility], WITH IV [id number] 13:55:00Unlisted Reason for Exam - Click Yes and Enter Reason Below->YesUnlisted Reason for Exam->Malignant neoplasm of overlapping sites of bladder [facility] MERCAD[facility] : 1945 Sex: [...] thickening. Patient is status post cystectomy, with Chenango pouch. Pouch wall is mildly thickened. Uterus is also absent. No adnexal mass. There is no adenopathy. No ascites. Bony structures demonstrate degenerative changes. No suspicious bony lesion is identified. Impression: Persistent wall thickening of the Jazzy pouch. No metastatic disease is identified in the chest, abdomen or pelvis. Cholelithiasis. Signed: Beto Bianchi Verified Date/Time: 07/29/2021 13:55:07 Reading Location: [address] Consult Reading Room CT, ABDOMEN 2021-07-29 13:55:00Unlisted Reason for Exam - Click Yes and Enter Reason Below- >YesUnlisted Reason for Exam->Malignant neoplasm of overlapping sites of bladderWill this procedure require oral contrast?->No [facility] : 1945 Sex: [...] thickening. Patient is status post cystectomy, with Chenango pouch. Pouch wall is mildly thickened. Uterus is also absent. No adnexal mass. There is no adenopathy. No ascites. Bony structures demonstrate degenerative changes. No suspicious bony lesion is identified. Impression: Persistent wall thickening of the Chenango pouch. No metastatic disease is identified in the chest, abdomen or pelvis. Cholelithiasis. Signed: Beto Bianchi Verified Date/Time: 07/29/2021 13:55:07 Reading [facility] C[facility]X Ortho Consult Reading Room POC-Creatinine 2021-07-29 13:03:28 Test Item Value Reference Range Interpretation Comments POC-Creatinine (test 1.0 mg/dL 0.6-1.3 : TESTE D AT [facility] 7200 code = 35687-7) [place] [address] 0: Insurance Business Analyst/Techni kylie ID = [id number] for Penny , Carri POC-EGFR (test code 54 mL/min/1.73M2 = 85008-0) [id number] 13:03:28 Test Item Value Reference Range Interpretation Comments POC-Creatinine (test 1.0 mg/dL 0.6-1.3 : TESTE D AT [facility] 7200 code = 60696-5) [facility] 7703 0: Insurance Business Analyst/Techni kylie ID = [id number] for Penny , Carri POC-EGFR (test code 54 mL/min/1.73M2 = 07085-6) [facility]-[id number] 13:03:28 Test Item Value Reference Range Interpretation Comments POC-Creatinine (test 1.0 mg/dL 0.6-1.3 : TESTE D AT [facility] 7200 code = 1859) [facility] 7703 0: Insurance Business Analyst/Techni kylie ID = [id number] for Penny , Carri POC-EGFR (test code 54 mL/min/1.73M2 = 1860) [id number] 13:03:28 Test Item Value Reference Range Interpretation Comments POC-CREATININE 1.0 mg/dL 0.6-1.3 : TESTED AT [facility] ([facility]) ([facility] = [facility]59[facility] 7 9030: Insurance Business Analyst/Techni kylie ID = [id number] for Carri Penny POC-EGFR 54 mL/min/1.73M2 ([facility]) (test code = 1860) CT, [id number] 12:39:00Restaging bladder cancerUnlisted Reason for Exam - Click Yes and Enter Reason Below->YesUnlisted Reason for Exam->Malignant neoplasm of overlapping sites of bladderWill this procedure require oral contrast?->[facility]RIA MERCAD[facility] : 1945 Sex: [...] Persistent mild segmental wall thickening of the Chenango pouch. No new disease identified inthe chest, abdomen or pelvis. Signed: Beto Bianchiort Verified Date/Time: 05/03/2021 12:39:20 Reading Location: [address] Ortho Consult Reading Room CT, CHEST, WITH IV [id number] 12:39:00Restaging bladder cancerUnlisted Reason for Exam - Click Yes and Enter Reason Below- >YesUnlisted Reason for Exam->Malignant neoplasm of overlapping sites of bladder[facility] : 1945 Sex: FFINAL [...] no significant hydronephrosis. Status post cystectomy with Chenango pouch. There is mild persistent segmental pouch wall thickening. No evidence of bowel obstruction, or abnormal bowel wall thickening. No adenopathy or mass lesion is identified. No ascites. Bony structures demonstrate degenerative changes. No suspicious bony lesion is identified. Impression: Persistent mild segmental wall thickening of the Chenango pouch. No new disease identified inthe chest, abdomen or pelvis. Signed: Beto Bianchi [facility] Verified Date/Time: 05/03/2021 12:39:20 Reading Location[facility] C[facility]X Ortho Consult Reading Room [place]-[id number] 11:16:33 Test Item Value Reference Range Interpretation Comments POC-CREATININE 1.0 mg/dL 0.6-1.3 : TESTED AT [facility] ([facility]) (test [address] [facility] code = 1859) A, [facility] 7 8768: Insurance Business Analyst/Techni kylie ID = [id number] for Nacho Gomez POC-EGFR 54 mL/min/1.73M2 ([facility]) (test code = 1860) CT, [id number] 13:16:00Restaging bladder cancerUnlisted Reason for Exam - Click Yes and Enter Reason Below->YesUnlisted Reason for Exam->Malignant neoplasm of overlapping sites of bladderWill this procedure require oral contrast?->No[facility]: ALEXANDRIA MERCADO : 1945 [...] unchanged. Patient is status post cystectomy with Chenango pouch. Pouch wall thickening has decreased but there is persistent mild wall thickening anteriorly. No bowel obstruction, or abnormal bowel wall thickening. There is no ascites, free air or adenopathy. Bony structures demonstrate degenerative changes.No suspicious bony lesion is identified. Impression: No metastatic disease identified in the chest, abdomen or pelvis. Decreased wall thickening of the Jazzy pouch. Signed: Beto Bianchi [facility] VerifiedDate/Time: 01/18/2021 13:16:05 Reading Location: [facility] B1 C013X Ortho Consult Reading Room Electronical ly signed by: BETO BIANCHI M.D. on 01/18/2021 01:16 PMCT, CHEST, WITH IV CONTRAST 2021-01-18 13:16:00Restaging bladder cancerUnlisted Reason for Exam - Click Yes and Enter Reason Below->YesUnlisted Reason for Exam->Malignant neoplasm of overlapping sites of bladder [facility]RI[facility] MERCAD[facility] : 1945 Sex: FFINAL [...] unchanged. Patient is status post cystectomy with Chenango pouch. Pouch wall thickening has decreased but there is persistent mild wall thickening anteriorly. No bowel obstruction, or abnormal bowel wall thickening. There is no ascites, free air or adenopathy. Bony structures demonstrate degenerative changes.No suspicious bony lesion is identified. Impression: No metastatic disease identified in the chest, abdomen or pelvis. Decreased wall thickening of the Chenango pouch. Signed: Beto Bianchi VerifiedDate/Time: 01/18/2021 13:16:05 Reading [facility] C[facility]X [facility] Consult Reading Room Electronical ly signed by: BETO BIANCHI M.D. on 01/18/2021 01:16 [id number]-[id number] 12:41:00 Test Item Value Reference Range Interpretation Comments POC-CREATININE 1.0 mg/dL 0.6-1.3 : TESTED AT [facility] ([facility]) (test 720 DENISE Becerra [facility] code = 1859) A, [facility] 7 4242: Insurance Business Analyst/Techni kylie ID = [id number] for MANNY ISLAS POC-EGFR 54 mL/min/1.73M2 ([facility]) (test code = 1860) CT, CHEST, WITH IV [id number] 10:47:00Unlisted Reason for Exam - Click Yes and Enter Reason Below->YesUnlisted Reason for Exam->Malignant neoplasm of overlapping sites of bladder [facility] MERCAD[facility] MELENDEZ : 1945 Sex: FFINAL [...] April 25, 2020 Discussion: There is a gappg-fctnoKzgu-U-Cath. No supraclavicular, axillary, mediastinal or hilar lymphadenopathy. [...] stone. Patient is status post cystectomy with Chenango pouch. There ispersistent wall thickening along the [...] pelvis. Persistent medial wall thickening of the Chenango pouch, suggest attention on follow-up exams. This finding can also be correlated with urinalysis to exclude infection. Signed: Beto Bianchi Verified Date/Time: 10/04/2020 10:47:02 Reading Location: [facility] C[facility]X Ortho Consult Reading Room CT, [id number] 10:47:00Unlisted Reason for Exam - Click Yes and Enter Reason Below->YesUnlisted Reason for Exam->Malignant neoplasm of overlapping sites of bladderWill this procedure require oral contrast?->Yes [facility]ESS ALEXANDRIANOHEMY MELENDEZ : 1945 Sex: FFINAL REPORT CT [...] April 25, 2020 Discussion: There is a qtmzq-qybzpArqa-T-Cath. No supraclavicular, axillary, mediastinal or hilar lymphadenopathy. [...] stone. Patient is status post cystectomy with Chenango pouch. There ispersistent wall thickening along the [...] pelvis. Persistent medial wall thickening of the Jazzy pouch, suggest attention on follow-up exams. This finding can also be correlated with urinalysis to exclude infection. Signed: Beto Bianchieport Verified Date/Time: 10/04/2020 10:47:02 Reading Location: [address] Ortho Consult Reading Room -[id number] 08:59:00 Test Item Value Reference Range Interpretation Comments POC-CREATININE 1.0 mg/dL 0.6-1.3 : TESTED AT [facility] ([facility]) (test [address] [facility] code = 1859) A, [facility] 7 4250: Insurance Business Analyst/Techni kylie ID = [id number] for MANNY ISLAS POC-EGFR 54 mL/min/1.73M2 (im3D) (test code = 1860) US PELVIS COMPLETE WITH [id number] 23:47:141. ?Status post hysterectomy. Bilateral ovaries were not visualized, may besurgically absent. Preliminary Report Dictated by Resident: Teo Morley MD., have reviewed this study and agree with the abovereport.EXAM: US PELVIS COMPLETE WITH TRANSVAGINAL HISTORY: 74 years -old female status post cystectomy and hysterectomy withpost menopausal bleeding . TECHNIQUE: Transabdominal and transvaginal ultrasound imaging of the pelviswas performed including color Doppler evaluation. X Ray Inspector imageswere obtained for the record. COMPARISON: None FINDINGS: Uterus: Status post hysterectomy. The vagina cuff is unremarkable. Right Adnexa:Ovary: Not visualized Left Adnexa:Ovary : Not vis ualized. Cul-de-sac: No free fluid. [facility], Radiant Results Inft User - 07/19/2020 5:48 PM CSTEXAM: USPELVIS COMPLETE WITH TRANSVAGINALHISTORY: 74 years -old female status post cystectomy and hysterectomy withpost menopausal bleeding . TECHNIQUE: Transabdominal and transvaginal ultrasound imaging of the pelviswas performed including color Doppler evaluation. X Ray Inspector imageswere obtained for the record.COMPARISON: NoneFINDINGS:Uterus: Status post hysterectomy. The vagina cuff is unremarkable.Right Adnexa:Ovary: Not visualizedLeft Adnexa:Ovary : Not visualized.Cul-de-sac: No free fluid.IMPRESSION1. Status post hysterectomy. Bilateral ovaries were not visualized, may besurgically absent.Preliminary Report Dictated by Resident: Teo Valdes MD., have reviewed this study and agree with the abovereport.[facility] HEAD [id number] 23:45:31 Nodule 1 located in the upper [...] lobe measures upto 1.8 cm meets the TI-RADS3 criteria for follow-up in a year.Echotexture of [...] cm in 1, 3 and 5years* TR2 (2points) & TR1 (0 points) -No FNA or follow-upPreliminary Report Dictated by Resident: Krystal Stiles, Teo Moreira MD., have reviewed this study and agree with the abovereport.[facility] [id number] 18:20:10Examination:BI SCREENING MAMMOGRAM BILATERAL History:Patient is 74 [...] - Bilateral BI-RADS Category: Both 2 - BenignUnWhite Rock Medical CenterCT, CHEST, WITH IV CONTRAST 2020-07-17 15:58:00Unlisted Reason for Exam - Click Yes and Enter Reason Below- >YesUnlisted Reason for Exam->Malignant neoplasm of overlapping sites of bladderRUSSELL [facility] MERCAD[facility] : 1945 Sex: [...] cystectomy. There is a right lower quadrant Chenango pouch with a midline urostomy. There is [...] Prasad MDReport Verified Date/Time: 07/17/2020 15:58:18 CT, [id number] 15:58:00Unlisted Reason for Exam - Click Yes and Enter Reason Below->YesUnlisted Reason for Exam->Malignant neoplasm of overlapping sites of bladder [facility] : 1945 Sex: [...] cystectomy. There is a right lower quadrant Chen[place] pouch with a midline urostomy. There is [...] Gio Prasad MDReport Verified Date/Time: 07/17/2020 15:58:18 [id number] 10:41:00 Test Item Value Reference Range Interpretation Comments POC-CREATININE 0.8 mg/dL 0.6-1.3 : TESTED AT [facility] ([facility]) (test [address] [facility] code = 1859) [facility] 7 5930: Insurance Business Analyst/Techni kylie ID = [id number] for MANNY ISLAS POC-EGFR 70 mL/min/1.73M2 ([facility]) (test code = 1860) POCT URINALYSIS [id number] 00:00:00 Test Item Value Reference Range Interpretation Comments COLOR UA (test code = 5778-6) Yellow YELLOW/STRAW CLARITY UA (test code = 00308-2) Clear CLEAR GLUCOSE UA (test code = 5792-7) Negative NEGATIVE BILIRUBIN UA (test code = 5770-3) Negative NEGATIVE KETONES UA (test code = 38167-1) Negative NEGATIVE SPECIFIC GRAVITY UA (test code [...] NEGATIVE REDUCING SUBSTANCES URINE (test code = 61306-7) Lab Interpretation (test code = Abnormal 02350-8) [facility] [id number] 13:05:00 Test Item Value Reference Range Interpretation Comments BUN (test code = BUN) 8 02-10 [facility] [id number] 13:05:00 Test Item Value Reference Range Interpretation Comments Creatinine Lvl (test code = Creatinine 0.83 0.60-0.93 Lvl) [facility] [id number] 13:05:00 Test Item Value Reference Range Interpretation Comments eGFR NON-AFR. FAROESE (test code = 69 eGFR NON-AFR. FAROESE) [facility] [id number] 13:05:00 Test Item Value Reference Range Interpretation Comments eGFR (test code = eGFR 81 ) [facility] [id number] 13:05:00 Test Item Value Reference Range Interpretation Comments B/C Ratio (test code = B/C NOT APPLICABLE 622 Ratio) [facility], CHEST, WITH IV [id number] 10:03:00Unlisted Reason for Exam - Click Yes [...] or intrapelvic metastatic disease. Signed: Tyler Shankar MDRepwestern missouri medical center VerifiedDate/Time: 04/26/2020 10:03:24 Reading Location: [facility] Diagnostic Imaging Reading Room - [place] [address], [id number] 10:03:00Unlisted Reason for Exam - Click Yes [...] Shankar MDReport VerifiedDate/Time: 04/26/2020 10:03:24 Reading Location: [facility] Diagnostic Imaging Reading Room - [place] [address] 1129 -[id number] 09:03:00 Test Item Value Reference Range Interpretation Comments POC-CREATININE 0.8 mg/dL 0.6-1.3 : TESTED AT [facility] ([facility]) (test [address] code = 1859) [place] 7 [address]851: Insurance Business Analyst/Techni kylie ID = [id number] for GERSON WOODSON ICA POC-EGFR 70 mL/min/1.73M2 (BEAKER) (test code = 1860) COMPREHENSIVE METABOLIC [id number] 07:49:43 Test Item Value Reference Range Interpretation Comments GLUCOSE (test code = See_Comment H [Autom ated message] 2345-7) The system [employer] generated this result transmitted ref erence range: 70 - 99 MG/DL. The reference r anil was not used to interpret this result as normal/abnor mal. BLOOD UREA NITROGEN See_Comment [Automa tom message] (test code = 3091-6) The [employer] tem which generated this result transmitted ref erence range: 8 - 23 M G/DL. The reference r anil was not used to interpret this result as normal/abnor mal. CREATININE (test code = See_Comment [Au tomated message] 2160-0) The system [employer] generated this result transmitted ref erence range: 0.60 - 1 .30 MG/DL. The refe rence range was not u sed to interpret this result as normal/abnor mal. EGFR AA (test code = See_Comment [Autom ated message] 58345-7) The system [employer] generated this result transmitted ref erence range: >60 ML/MIN/1.73. Th e reference range was not used to int erpret this result as normal/abnormal . EGFR (test code = See_Comment [Automate d message] 59431-5) The system [employer] generated this result transmitted ref erence range: >60 ML/MIN/1.73. Th e reference range was not used to int erpret this result as normal/abnormal . BUN/CREAT RATIO (test See_Comment [Auto mated message] code = 3097-3) The system [employer] generated this result transmitted ref erence range: 6 - 28 R ATIO. The reference r anil was not used to interpret this result as normal/abnor mal. SODIUM (test code = See_Comment [Automa tom message] 9741-2) The system [employer] generated this result transmitted ref erence range: 133 - 14 6 MEQ/L. The refe rence range was not u sed to interpret this result as normal/abnor mal. POTASSIUM (test code = See_Comment [Aut omated message] 2823-3) The system [employer] generated this result transmitted ref erence range: 3.5 - 5. 4 MEQ/L. The refe rence range was not u sed to interpret this result as normal/abnor mal. CHLORIDE (test code = See_Comment [Auto mated message] 2075-0) The system [facility] generated this result transmitted ref erence range: 95 - 107 MEQ/L. The reference r anil was not used to interpret this result as normal/abnor mal. CO2 (test code = See_Comment [Automated message] 1963-8) The system [employer] generated this result transmitted ref erence range: 19 - 31 MEQ/L. The reference r anil was not used to interpret this result as normal/abnor mal. CALCIUM (test code = See_Comment [Autom ated message] 96684-8) The system [employer] generated this result transmitted ref erence range: 8.5 - 10 .5 MG/DL. The refe rence range was not u sed to interpret this result as normal/abnor mal. PROTEIN TOTAL (test See_Comment [Automa tom message] code = 2885-2) The system [facility] generated this result transmitted ref erence range: 6.1 - 8. 3 G/DL. The reference r anil was not used to interpret this result as normal/abnor mal. ALBUMIN (test code = See_Comment [Autom ated message] 75447-7) The system [employer] generated this result transmitted ref erence range: 3.5 - 5. 2 G/DL. The reference r anil was not used to interpret this result as normal/abnor mal. GLOBULINS, SERUM, TOTAL See_Comment [Au tomated message] (test code = 01207-3) The sy stem which generated this result transmitted ref erence range: 1.9 - 3. 7 G/DL. The reference r anil was not used to interpret this result as normal/abnor mal. A/G RATIO (test code = See_Comment [Aut omated message] 1759-0) The system [employer] generated this result transmitted ref erence range: 1.0 - 2. 6 RATIO. The refe rence range was not u sed to interpret this result as normal/abnor mal. BILIRUBIN TOTAL (test See_Comment [Auto mated message] code = 1975-2) The system [employer] [facility] generated this result transmitted ref erence range: <=1.2 MG /DL. The reference r anil was not used to interpret this result as normal/abnor mal. ALKALINE PHOSPHATASE 58 U/L 40-142 (test code = 6768-6) AST (SGOT) (test code = 22 U/L 9-40 1920-8) ALT (SGPT) (test code = 17 U/L 5-40 Unl ess Otherwise 1744-2) Indicated, All Testing Performed At: [facility], [address] [place] [address] Laborator y Director: Robbie Wagner M.D. CLIA Number [id number] Cap Accreditation [place] o. [id number] Lab Interpretation Abnormal (test code = 89720-1) [facility] W/AUTO DIFF WITH [id number] 06:08:57 Test Item Value Reference Range Interpretation Comments WHITE BLOOD CELL COUNT See_Comment [Aut omated message] (test code = 17923-3) The sy stem which generated this result transmitted ref erence range: 3.5 - 10 .0 K/UL. The refer ence range was not u sed to interpret this result as normal/abnor mal. RED BLOOD CELL COUNT See_Comment L [Autom ated message] (test code = 42712-8) The sy stem which generated this result transmitted ref erence range: 3.80 - 5 .20 M/UL. The refer ence range was not u sed to interpret this result as normal/abnor mal. HEMOGLOBIN (test code = See_Comment L [Au tomated message] 718-7) The system [employer] generated this result transmitted ref erence range: 12.0 - 1 6.0 G/DL. The refer ence range was not u sed to interpret this result as normal/abnor mal. HEMATOCRIT (test code = 31.6 % 35-46 L 80459-0) MEAN CORPUSCULAR VOLUME 91.1 fL 80-99 (test code = 85591-1) MEAN CORPUSCULAR 29.7 PG 25-34 HEMOGLOBIN (test code = 32706-0) MEAN CORPUSCULAR See_Comment [Automated message] HEMOGLOBIN CONC (test The sy stem which code = 85553-9) generated th is result transmitted ref erence range: 31.0 - 3 6.0 G/DL. The refer ence range was not u sed to interpret this result as normal/abnor mal. RED CELL DISTRIBUTION 14.5 % 11.5-15 WIDTH (test code = 28965-9) NEUTROPHILS % (test code 62.8 % 40-75 = 94703-5) LYMPHOCYTES % (test code 23.4 % 20-45 = 23112-1) MONOCYTES % (test code = 9.4 % 4-12 66889-6) EOSINOPHILS % (test code 3.8 % 0-7 = 88734-5) BASOPHILS % (test code = 0.6 % 0-2 12157-5) PLATELET COUNT (test See_Comment Unless Otherwise code = 52911-3) Indicated, A ll Testing Perform ed At: [facility], [address] [place] [address], [place] [address] Laborator y Director: Robbie Wagner M.D. [place] Number [id number] Cap Accreditation [place] o. [id number] [Autom ated message] The sy stem which generated this result transmit tom reference range : 130 - 400 K/UL. The reference range was not used to int erpret this result as normal/abnormal . Lab Interpretation (test Abnormal code = 60530-7) [facility])2020-02-10 01:04:00 Test Item Value Reference Range Interpretation Comments SARS-COV2/RT-PCR (test code Negative Not Detected, Negative, = 4629422) See external report for linked test SARS-COV-2 PERFORMING LAB CPL (test code = 5651904) URINE [id number] 12:03:00 Test Item Value Reference Range Interpretation Comments CULTURE (BEAKER) (test >100,000 col/mL skin code = 1095) wendy HEMOGLOBIN AND [id number] 14:07:00 Test Item Value Reference Range Interpretation Comments HEMOGLOBIN (BEAKER) (test code = 7.5 GM/DL 11.2-15.7 L 410) HEMATOCRIT (BEAKER) (test code = 23.8 % 34.1-44.9 L 411) Insurance Business Analyst ID - 6000BASIC METABOLIC [id number] 07:06:00 Test Item Value Reference Range Interpretation [...] S NOT APPLICABLE FOR DIALYSIS PATIEN TS. Insurance Business Analyst ID - [place] [id number] 07:03:00 Test Item Value Reference Range Interpretation Comments PHOSPHORUS (BEAKER) (test code = 3.7 mg/dL 2.3-4.7 604) Insurance Business Analyst ID - [place] [id number] 07:03:00 Test Item Value Reference Range Interpretation Comments MAGNESIUM (BEAKER) (test code = 1.9 mg/dL 1.6-2.6 627) Insurance Business Analyst ID - [place] LHEMOGLOBIN AND [id number] 06:03:00 Test Item Value Reference Range Interpretation Comments HEMOGLOBIN (BEAKER) (test code = 7.3 GM/DL 11.2-15.7 L 410) HEMATOCRIT (BEAKER) (test code = 22.5 % 34.1-44.9 L 411) Insurance Business Analyst ID - 6000BASIC METABOLIC [id number] 08:13:00 Test Item Value Reference Range Interpretation [...] S NOT APPLICABLE FOR DIALYSIS PATIEN TS. Insurance Business Analyst ID - JULI [id number] 08:10:00 Test Item Value Reference Range Interpretation Comments MAGNESIUM (BEAKER) (test code = 1.9 mg/dL 1.6-2.6 627) Insurance Business Analyst ID - JULI [id number] 08:10:00 Test Item Value Reference Range Interpretation Comments PHOSPHORUS (BEAKER) (test code = 4.2 mg/dL 2.3-4.7 604) Insurance Business Analyst ID - NTPOperator ID - JULI CHEMOGLOBIN AND [id number] 05:10:00 Test Item Value Reference Range Interpretation Comments HEMOGLOBIN (BEAKER) (test code = 8.1 GM/DL 11.2-15.7 L 410) HEMATOCRIT (BEAKER) (test code = 24.3 % 34.1-44.9 L 411) Insurance Business Analyst ID - [id number] 07:07:00 Test Item Value Reference Range Interpretation Comments PHOSPHORUS (BEAKER) (test code = 2.8 mg/dL 2.3-4.7 604) Insurance Business Analyst ID - [place] [id number] 07:07:00 Test Item Value Reference Range Interpretation Comments MAGNESIUM (BEAKER) (test code = 1.6 mg/dL 1.6-2.6 627) Insurance Business Analyst ID - PIAYA LBASIC METABOLIC [id number] 07:07:00 Test Item Value Reference Range Interpretation [...] S NOT APPLICABLE FOR DIALYSIS PATIEN TS. Insurance Business Analyst ID - PIAYA LHEMOGLOBIN AND [id number] 06:28:00 Test Item Value Reference Range Interpretation Comments HEMOGLOBIN (BEAKER) (test code = 8.0 GM/DL 11.2-15.7 L 410) HEMATOCRIT (BEAKER) (test code = 24.6 % 34.1-44.9 L 411) Insurance Business Analyst ID - [id number], CHEST, 1 VIEW, NON [id number] 18:35:00Reason for exam:->check PICC placementShould this be [...] in the lower lobes, likelyatelectasis. Signed: Manny Mcclendoneport Verified Date/Time: 02/03/2020 18:35:36 Reading Location: [facility] Reading Room PHOSPHORUS 2020-02-03 07:55:00 Test Item Value Reference Range Interpretation Comments PHOSPHORUS (BEAKER) (test code = 2.4 mg/dL 2.3-4.7 604) Insurance Business Analyst ID - DA [id number] 07:55:00 Test Item Value Reference Range Interpretation Comments MAGNESIUM (BEAKER) (test code = 1.7 mg/dL 1.6-2.6 627) Insurance Business Analyst ID - DA FBASIC METABOLIC [id number] 07:55:00 Test Item Value Reference Range Interpretation [...] S NOT APPLICABLE FOR DIALYSIS PATIEN TS. Insurance Business Analyst ID - DA FHEMOGLOBIN AND [id number] 06:56:00 Test Item Value Reference Range Interpretation Comments HEMOGLOBIN (BEAKER) (test code = 8.2 GM/DL 11.2-15.7 L 410) HEMATOCRIT (BEAKER) (test code = 24.2 % 34.1-44.9 L 411) Insurance Business Analyst ID - [id number] AND [id number] 19:28:00 Test Item Value Reference Range Interpretation Comments HEMOGLOBIN (BEAKER) (test code = 8.3 GM/DL 11.2-15.7 L 410) HEMATOCRIT (BEAKER) (test code = 25.0 % 34.1-44.9 L 411) Insurance Business Analyst ID - [id number] (HEMOGRAM ONLY)2020-02-02 05:09:00 Test [...] WBC 0-0 (BEAKER) (test code = 413) [id number] 04:19:00 Test Item Value Reference Range Interpretation Comments PHOSPHORUS (BEAKER) (test code = 1.9 mg/dL 2.3-4.7 L 604) Insurance Business Analyst ID - [place] [id number] 04:19:00 Test Item Value Reference Range Interpretation Comments MAGNESIUM (BEAKER) (test code = 1.9 mg/dL 1.6-2.6 627) Insurance Business Analyst ID - [place] LBASIC METABOLIC [id number] 04:19:00 Test Item Value Reference Range Interpretation [...] S NOT APPLICABLE FOR DIALYSIS PATIEN TS. Insurance Business Analyst ID - PIAYA LHEMOGLOBIN AND [id number] 04:00:00 Test Item Value Reference Range Interpretation Comments HEMOGLOBIN (BEAKER) 5.9 GM/DL 11.2-15.7 LL [address] alfonzo candelaria per (test code = 410) [id number] HEMATOCRIT (BEAKER) 18.0 % 34.1-44.9 L (test code = 411) Insurance Business Analyst ID - [id number] [id number] 13:30:00Surgical Pathology Report Case: [id number] Authorizing Provider: Vita Jaimes MD Collected: 01/30/2020 09:40 AM Ordering Location: [facility] PERIOPERATIVE Received: 01/30/2020 10:59 AM SERVICES Pathologist: Reinaldo Mtata MD Specimens: A) - Lymph Node, RIGHT [...] DISTAL URETER FOR FROZEN J) - Urinary Bladder,ANTERIOR PELVIC EXENTERATION K) - Lymph Node, PRE-SACRAL LYMPH NODES L) - Appendix A. LYMPH NODES, RIGHT COMMON ILIAC, DISSECTION: - THREE BENIGN LYMPH NODES (0/3)B. LYMPH NODES, RIGHT EXTERNAL ILIAC,DISSECTION: - FIVE BENIGN LYMPH NODES (0/5)C. LYMPH NODES, RIGHT OBTURATOR, DISSECTION: - SEVEN BENIGN LYMPH NODES (0/7)D. LYMPH NODES, RIGHT INTERNAL ILIAC, DISSECTION: - TWO BENIGN LYMPH NODES (0/2)E. LYMPH NODES, LEFT COMMON ILIAC, DISSECTION: - FOUR BENIGN LYMPH NODES (0/4)F. LYMPH NODES, LEFT EXTERNAL ILIAC, DISSECTION: - FIVE BENIGN LYMPH NODES (0/5)G. LYMPH NODES, LEFT OBTURATOR, DISSECTION: -FIVE BENIGN LYMPH NODES (0/5)H. URETER, LEFT DISTAL, EXCISION: - NO PATHOLOGIC DIAGNOSISI. URETER, RIGHT DISTAL, EXCISION: - NO PATHOLOGIC DIAGNOSISJ. 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 - UROTHELIAL CARCINOMA [...] NODES, PRE-SACRAL", EXCISION: - BENIGN FIBROADIPOSE TISSUE, NOLYMPH NODES IDENTIFIEDL. APPENDIX, APPENDECTOMY: - FIBROUS OBLITERATION OF THE TIP Signing Pathologist Direct Phone Line: [phone] signed by Reinaldo Matta MD on 02/01/2020 at 1:30 PMAll of the residual invasive tumor is of the plamacytoid/signet ring cell type. URINARY BLADDER: Cystectomy, Anterior Exenteration (Bladder - J)8th Edition - Protocol posted: 09/15/2018SPECIMEN Procedure: Anterior exenteration TUMOR Tumor Site: [place] Histologic Type: Urothelial carcinoma, 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 Histologic Grade: High-grade Tumor Size: Cannot be determined:MULTIFOCAL, LARGEST FOCIUS 1.5 CM Tumor Extension: Tumor [...] (pT): pT3a Regional Lymph Nodes (pN): pN0 97181 x [id number] X [id number] x [id number] diagnosis: Malignant neoplasm of the urinary bladder. Procedure: Radical cystectomywith creation of continent diversion, bilateral pelvic lymph node dissection. A. Right common iliac lymph nodes; B. Right external iliac lymph nodes; C. Right obturator lymph node; D. Right internal iliac lymph node; E. Left common iliac lymph nodes;F. Left external iliac lymph nodes; H. Left distal ureter; I. Right distal ureter; J. Urinary bladder; K, presacral lymph node; L. AppendixA. Received informalin labeled with the patient's name, accession number and "right common iliac lymph nodes" is ayellow-red fibrofatty soft tissue fragment that measures 3.5 x 2.2 x 0.8 cm. The specimen is dissected to reveal two lymph nodes measuring up to 1.5 x 1.0 x 0.5 cm. Section code: A1, two lymph nodes.B.Received in formalin labeled with the patient's name, [...] x 2.0 cm. A surgical clip is identifiedwithin the specimen. The specimen is resected to reveal eight lymph nodes ranging in size from 0.5 x0.4 x 0.4 up to the largest measuring [...] and "left common iliac lymph nodes" are multi ple fragments of yellow adipose tissue that measure in aggregate, 4.0 x 4.0 x 0.8 cm. Grossly, threelymph nodes are identified ranging in size from 1.5 x 0.5 x 0.5 cm up to the largest measuring 3.0 x1.3 x 0.6 cm. Section code: E1, one [...] sectioned. H. Received fresh from the OR forintraoperative frozen section consultation is a 0.8 x [...] orifices are unremarkable. The vaginal mucosa is grosslyunremarkable.The uterus shows an area of serosal disruption measuring 0.5 x 0.5 cm on the fundus along the anterior aspect. The cervical os is occluded. The ectocervix is buck-white and smooth. The endocervical canal measures 2.5 cm in length. The endometrial cavity measures 1.5 cm from yjvox-cx-lasdg and 3.5 cm in length. The endometrium [...] orifice; J14, hyperemic bladder mucosa; J15, trigone, repres entative section; J16, bladder wall with vagina; J17 [...] No lymph nodes are grossly identified. Section code:K1, specimen entirely submitted. L. Received in formalin labeled with the patient's name, accession number and "appendix" is a terminal segment of an appendix measuring 4 cm in length x 1.0 cm in diameter with attached mesoappendix measuring 4.5 x 1.5 x 0.5 cm. The specimen is sectioned to reveal a lumen measuring 0.4 cm in diameter. Section code: L1, appendix, surgical margin at distal tip; L2, additional sales representative electric service sections from appendix and the mesoappendix. MH/plFROZEN SECTION DIAGNOSIS: FSH: URETER, LEFT DISTAL MARGIN: - NEGATIVE FOR MALIGNANCY This is informed by Dr. Amaro to Dr. Jaimes onJanuary 29, at 11:19 a.m. FSI. RIGHT URETER, RIGHT DISTAL MARGIN: - NEGATIVE FOR MALIGNANCYThis is informed by Dr. Amaro to Dr. Jaimes on January 29 at 11:19 a.m.A-L Performed.HEMOGLOBIN AND [id number] 10:52:00 Test Item Value Reference Range Interpretation Comments HEMOGLOBIN (BEAKER) (test code = 7.1 GM/DL 11.2-15.7 L 410) HEMATOCRIT (BEAKER) (test code = 21.4 % 34.1-44.9 L 411) Insurance Business Analyst ID - [id number] 06:15:00 Test Item Value Reference Range Interpretation Comments PHOSPHORUS (BEAKER) (test code = 2.5 mg/dL 2.3-4.7 604) Insurance Business Analyst ID - CHEOAYA [id number] 06:15:00 Test Item Value Reference Range Interpretation Comments MAGNESIUM (BEAKER) (test code = 1.9 mg/dL 1.6-2.6 627) Insurance Business Analyst ID - [place] LBASIC METABOLIC [id number] 06:15:00 Test Item Value Reference Range Interpretation [...] S NOT APPLICABLE FOR DIALYSIS PATIEN TS. Insurance Business Analyst ID - PIAYA LHEMOGLOBIN AND [id number] 05:33:00 Test Item Value Reference Range Interpretation Comments HEMOGLOBIN (BEAKER) (test code = 7.0 GM/DL 11.2-15.7 L 410) HEMATOCRIT (BEAKER) (test code = 20.9 % 34.1-44.9 L 411) Insurance Business Analyst ID - 6000BASIC METABOLIC [id number] 05:02:00 Test Item Value Reference Range Interpretation [...] S NOT APPLICABLE FOR DIALYSIS PATIEN TS. Insurance Business Analyst ID - [id number] 04:59:00 Test Item Value Reference Range Interpretation Comments PHOSPHORUS (BEAKER) (test code = 4.0 mg/dL 2.3-4.7 604) Insurance Business Analyst ID - [id number] 04:59:00 Test Item Value Reference Range Interpretation Comments MAGNESIUM (BEAKER) (test code = 1.4 mg/dL 1.6-2.6 L 627) Insurance Business Analyst ID - DBHEMOGLOBIN AND [id number] 04:41:00 Test Item Value Reference Range Interpretation Comments HEMOGLOBIN (BEAKER) (test code = 9.4 GM/DL 11.2-15.7 L 410) HEMATOCRIT (BEAKER) (test code = 27.9 % 34.1-44.9 L 411) Insurance Business Analyst ID - [id number] METABOLIC [id number] 16:33:00 Test Item Value Reference Range Interpretation [...] S NOT APPLICABLE FOR DIALYSIS PATIEN TS. Insurance Business Analyst ID - [id number] 16:29:00 Test Item Value Reference Range Interpretation Comments PHOSPHORUS (BEAKER) (test code = 5.0 mg/dL 2.3-4.7 H 604) Insurance Business Analyst ID - [id number] 16:29:00 Test Item Value Reference Range Interpretation Comments MAGNESIUM (BEAKER) (test code = 1.2 mg/dL 1.6-2.6 L 627) Insurance Business Analyst ID - BSCBC W/PLT COUNT & AUTO [id number] 16:14:00 Test Item Value Reference Range Interpretation [...] (BEAKER) (test code = 2801) BLOOD GAS, [id number] 16:08:00 Test Item Value Reference Range Interpretation [...] code = 1819) 100.0 % SODIUM NA-STAT [id number] 16:08:00 Test Item Value Reference Range Interpretation Comments SODIUM (BEAKER) (test code = 381) 133 meq/L 136-145 L GLUCOSE-STAT [id number] 16:08:00 Test Item Value Reference Range Interpretation Comments GLUCOSE RANDOM (BEAKER) (test code 224 mg/dL 70-110 H = 652) HGB/HCT (H&H) - STAT [id number] 16:08:00 Test Item Value Reference Range Interpretation Comments HEMOGLOBIN (BEAKER) (test code = 10.5 g/dL 12.0-15.0 L 410) HEMATOCRIT (BEAKER) (test code = 31.0 % 36.0-45.0 L 411) POTASSIUM-STAT [id number] 16:05:00 Test Item Value Reference Range Interpretation Comments POTASSIUM (BEAKER) (test code = 3.7 meq/L 3.6-5.5 379) CALCIUM, [id number] 14:59:00 Test Item Value Reference Range Interpretation Comments CALCIUM IONIZED (BEAKER) (test 1.07 mmol/L 1.12-1.27 L code = 698) PH, BLOOD (BEAKER) (test code = 7.29 1810) BLOOD GAS, [id number] 14:55:00 Test Item Value Reference Range Interpretation [...] = 1819) 60.0 % Temp 36.3CSODIUM NA-STAT [id number] 14:55:00 Test Item Value Reference Range Interpretation Comments SODIUM (BEAKER) (test code = 381) 134 meq/L 136-145 L Temp 36.3CGLUCOSE-STAT [id number] 14:55:00 Test Item Value Reference Range Interpretation Comments GLUCOSE RANDOM (BEAKER) (test code 226 mg/dL 70-110 H = 652) Temp 36.3CHGB/HCT (H&H) - STAT [id number] 14:55:00 Test Item Value Reference Range Interpretation Comments HEMOGLOBIN (BEAKER) (test code = 10.4 g/dL 12.0-15.0 L 410) HEMATOCRIT (BEAKER) (test code = 31.0 % 36.0-45.0 L 411) Temp 36.3CPOTASSIUM-STAT [id number] 14:51:00 Test Item Value Reference Range Interpretation Comments POTASSIUM (BEAKER) (test code = 3.8 meq/L 3.6-5.5 379) Temp 36.3CBLOOD GAS, [id number] 12:59:00 Test Item Value Reference Range Interpretation [...] (test code = 1819) 60.0 % TEMP-35.7CCALCIUM, [id number] 12:59:00 Test Item Value Reference Range Interpretation Comments CALCIUM IONIZED (BEAKER) (test 1.12 mmol/L 1.12-1.27 code = 698) PH, BLOOD (BEAKER) (test code = 7.37 1810) SODIUM NA-STAT [id number] 12:59:00 Test Item Value Reference Range Interpretation Comments SODIUM (BEAKER) (test code = 381) 133 meq/L 136-145 L TEMP-35.7CPOTASSIUM-STAT [id number] 12:59:00 Test Item Value Reference Range Interpretation Comments POTASSIUM (BEAKER) (test code = 3.4 meq/L 3.6-5.5 L 379) TEMP-35.7CGLUCOSE-STAT [id number] 12:59:00 Test Item Value Reference Range Interpretation Comments GLUCOSE RANDOM (BEAKER) (test code 193 mg/dL 70-110 H = 652) TEMP-35.7CHGB/HCT (H&H) - STAT [id number] 12:59:00 Test Item Value Reference Range Interpretation Comments HEMOGLOBIN (BEAKER) (test code = 8.1 g/dL 12.0-15.0 L 410) HEMATOCRIT (BEAKER) (test code = 24.0 % 36.0-45.0 L 411) TEMP-35.7CBLOOD GAS, [id number] 11:41:00 Test Item Value Reference Range Interpretation [...] code = 1819) 60.0 % SODIUM NA-STAT [id number] 11:41:00 Test Item Value Reference Range Interpretation Comments SODIUM (BEAKER) (test code = 381) 131 meq/L 136-145 L POTASSIUM-STAT [id number] 11:41:00 Test Item Value Reference Range Interpretation Comments POTASSIUM (BEAKER) (test code = 3.4 meq/L 3.6-5.5 L 379) GLUCOSE-STAT [id number] 11:41:00 Test Item Value Reference Range Interpretation Comments GLUCOSE RANDOM (BEAKER) (test code 176 mg/dL 70-110 H = 652) HGB/HCT (H&H) - STAT [id number] 11:41:00 Test Item Value Reference Range Interpretation Comments HEMOGLOBIN (BEAKER) (test code = 9.2 g/dL 12.0-15.0 L 410) HEMATOCRIT (BEAKER) (test code = 27.0 % 36.0-45.0 L 411) CALCIUM, [id number] 11:41:00 Test Item Value Reference Range Interpretation Comments CALCIUM IONIZED (BEAKER) (test 1.08 mmol/L 1.12-1.27 L code = 698) PH, BLOOD (BEAKER) (test code = 7.33 1810) PH, [id number] 11:38:00 Test Item Value Reference Range Interpretation Comments PH ARTERIAL (BEAKER) (test code = 383) 7.35 7.35-7.45 POTASSIUM-STAT [id number] 09:51:00 Test Item Value Reference Range Interpretation Comments POTASSIUM (BEAKER) (test code = 2.3 meq/L 3.6-5.5 LL 379) TEMP-34.8CALCIUM, [id number] 09:50:00 Test Item Value Reference Range Interpretation Comments CALCIUM IONIZED (BEAKER) (test 1.03 mmol/L 1.12-1.27 L code = 698) PH, BLOOD (BEAKER) (test code = 7.40 1810) BLOOD GAS, [id number] 09:49:00 Test Item Value Reference Range Interpretation [...] code = 1819) 60.0 % TEMP-34.8SODIUM NA-STAT [id number] 09:49:00 Test Item Value Reference Range Interpretation Comments SODIUM (BEAKER) (test code = 381) 130 meq/L 136-145 L TEMP-34.8GLUCOSE-STAT [id number] 09:49:00 Test Item Value Reference Range Interpretation Comments GLUCOSE RANDOM (BEAKER) (test code 119 mg/dL 70-110 H = 652) TEMP-34.8HGB/HCT (H&H) - STAT [id number] 09:49:00 Test Item Value Reference Range Interpretation Comments HEMOGLOBIN (BEAKER) (test code = 11.6 g/dL 12.0-15.0 L 410) HEMATOCRIT (BEAKER) (test code = 34.0 % 36.0-45.0 L 411) TEMP-34.8CBC W/PLT COUNT & AUTO [id number] 07:16:00 Test Item Value Reference Range Interpretation [...] 0-1 PERCENT (BEAKER) (test code = 2801) [id number] 14:45:00Medical Cytology Report Case: [id number] Authorizing Provider: Vita Jaimes MD Collected: 01/18/2020 02:09 PM Ordering Location: [facility] Received: 01/18/2020 03:29 PM SERVICES Pat hologist: Reinaldo Matta MD Specimen: Urine, Bladder Wash URINE, BLADDER WASHING (CYTOSPINS): - NEGATIVE FOR MALIGNANCY Signing Pathologist Direct Phone Line: [phone] signed by Reinaldo Matta MD on 01/19/2020 at 2:45 [id number] risk 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 who presents for restaging TURBT prior to RCURINE, BLADDER CZEDCMO64 mls colorless fluid; 4 cytospinsCollected: [id number]: [id number] [facility], Department of Pathology, [address] [place] [address], [facility], [facility] of [facility], [address] [place] [address], [facility]pl[facility], Department of Pathology, [address] [place] [address], DZTIWD [id number] 13:07:00Surgical Pathology Report Case: [id number] Authorizing Provider: Vita Jaimes MD Collected: 01/18/2020 02:31 PM Ordering Location: [facility] Received: 01/18/2020 03:17 PM SERVICES Pathologist: Reinaldo Matta MD Specimens: A) - Bladder Biopsy, Right Wall, right posteriorlateral wall for biopsy B) - Bladder Biopsy, 12'o clock bladder neck for bladder biopsy C) - BladderBiopsy, 3'o clock bladder neck for bladder biopsy [...] METAPLASIA, NEGATIVE FOR MALIGNANCYE. URINARY BLADDER, 9 O'CLOCKBLADDER NECK, BIOPSY: - SQUAMOUS METAPLASIA, NEGATIVE FOR MALIGNANCY Signing Pathologist Direct Phone Line: [phone] signed by Reinaldo Matta MD on 01/19/2020 at 1:07 PM90% of this tumor shows the plasmacytoid morphology as documented on a previous biopsy.68709 x 5 Malignantneoplasm of overlapping sites of bladder A. Bladder [...] in formalin labeled the patient's name, accession numberand "bladder biopsy 9:00 bladder neck" is a 0.1 x 0.1 by less than 0.1 cm lam-white soft tissue which is submitted in toto in A1.JONATHAN Santizo (ASCP)cmPerformed.CYTOLOGY [id number] 17:00:00 Test Item Value Reference Range Interpretation Comments CYTOLOGY RESULT POINTER See Separate Report (FAINA) (test code = 2629) XR LUMBAR SPINE 2 VIEWS AP AND [id number] 21:07:27Lumbar Spine Radiographs: 3 views HISTORY: PainCOMPARISON: [...] L5-S1 facet arthropathy. IMPRESSION:No acute radiographic abnormality.Multilevel efwy-ut-srujftuh degenerative changes.Signed by: Dr. Ad Landa MD [...] osteophytosis.Mild L5-S1 facet arthropathy.IMPRESSION:No acute radiographic abnormality.Multilevel bhat-er-uoflnfun degenerative changes.Signedby: Dr. Ad Landa MD on 01/06/2020 4:[address] [facility] ABSOLUTE NEUTROPHIL [id number] 14:41:02 Test Item Value Reference Range Interpretation Comments WHITE BLOOD CELL COUNT See_Comment H [Aut omated message] (test code = 92455-8) The sy stem which generated this result transmitted ref erence range: 3.5 - 10 .0 K/UL. The refer ence range was not u sed to interpret this result as normal/abnor mal. RED BLOOD CELL COUNT See_Comment [Autom ated message] (test code = 92655-0) The sy stem which generated this result transmitted ref erence range: 3.80 - 5 .20 M/UL. The refer ence range was not u sed to interpret this result as normal/abnor mal. HEMOGLOBIN (test code See_Comment [Auto mated message] = 718-7) The system [employer] generated this result transmitted ref erence range: 12.0 - 1 6.0 G/DL. The refer ence range was not u sed to interpret this result as normal/abnor mal. HEMATOCRIT (test code 38.3 % 35-46 = 06182-1) MEAN CORPUSCULAR 90.1 fL 80-99 VOLUME (test code = 39663-7) MEAN CORPUSCULAR 29.4 PG 25-34 HEMOGLOBIN (test code = 24190-6) MEAN CORPUSCULAR See_Comment [Automated message] HEMOGLOBIN CONC (test The sy stem which code = 96902-5) generated th is result transmitted ref erence range: 31.0 - 3 6.0 G/DL. The refer ence range was not u sed to interpret this result as normal/abnor mal. RED CELL DISTRIBUTION 18.1 % 11.5-15 H WIDTH (test code = 87066-5) NEUTROPHILS % (test 51 % 40-75 SEGMENT ED code = 11803-2) NEUTROPHILS, MANUAL DIFFERENTIAL. BANDS % (test code = 5 % 0-8 58710-7) LYMPHOCYTES % (test 32 % 20-45 code = 45182-1) MONOCYTES % (test code 9 % 4-12 = 34218-2) EOSINOPHILS % (test 1 % 0-7 code = 33329-4) BASOPHILS % (test code 1 % 0-2 = 64905-7) METAMYELOCYTES PERCENT 1 % See_Comment H [Aut omated message] (test code = 28879-5) The sy stem which generated this result transmitted ref erence range: 0.0. The reference range was not used to int erpret this result as normal/abnormal . PLATELET COUNT (test See_Comment [Autom ated message] code = 95566-7) The system [facility] generated this result transmitted ref erence range: 130 - 40 0 K/UL. The refer ence range was not u sed to interpret this result as normal/abnor mal. NEUTROPHILS ABSOLUTE See_Comment [Autom ated message] COUNT (test code = The syste m which 11302-0) generated this result transmitted ref erence range: 1.50 - 7 .50 K/UL. The refer ence range was not u sed to interpret this result as normal/abnor mal. COMMENTS (test code = (NOTE) FEW E LLIPTOCYTES 59009-5) SLIGHT ANISOCYT OSIS PLATELETS APPEA R ADEQUATE PLATEL ETS APPEAR NORMAL T ESTING PERFORMED AT [facility] [place] [address] [place], [place] [address] CLIA NO. [id number] Unless Otherwis e Indicated, All Testing Perform ed At: Clinical Pathol ogy [facility], [address] [place] [address] Laborator y Director: Robbie Wagner M.D. IA Number [id number] Cap Accreditation N o. [id number] BALBIR (test code = BALBIR) PT FASTING Lab Interpretation Abnormal (test code = 63174-4) [facility] CenterCOMPREHENSIVE METABOLIC [id number] 14:32:27 Test Item Value Reference Range Interpretation Comments GLUCOSE (test code = See_Comment [Autom ated message] 2345-7) The system [employer] generated this result transmitted ref erence range: [...] [Auto mated message] = 2160-0) The system [employer] generated this result transmitted ref erence range: 0.60 - 1 .30 MG/DL. The refe rence range was not u sed to interpret this result as normal/abnor mal. EGFR AA (test code = See_Comment [Autom ated message] 16228-0) The system [employer] generated this result transmitted ref erence range: >60 ML/MIN/1.73. Th e reference range was not used to int erpret this result as normal/abnormal . EGFR (test code = See_Comment [Automate d message] 94490-5) The system [employer] generated this result transmitted ref erence range: >60 ML/MIN/1.73. Th e reference range was not used to int erpret this result as normal/abnormal . BUN/CREAT RATIO (test See_Comment [Auto mated message] code = 3097-3) The system [facility] generated this result transmitted ref erence range: 6 - 28 R ATIO. The reference r anil was not used to interpret this result as normal/abnor mal. SODIUM (test code = See_Comment [Automa tom message] 2951-2) The system [facility] generated this result transmitted ref erence range: 133 - 14 6 MEQ/L. The refe rence range was not u sed to interpret this result as normal/abnor mal. POTASSIUM (test code See_Comment [Autom ated message] = 2823-3) The system [facility] generated this result transmitted ref erence range: 3.5 - 5. 4 MEQ/L. The refe rence range was not u sed to interpret this result as normal/abnor mal. CHLORIDE (test code = See_Comment [Auto mated message] 2075-0) The system [facility] generated this result transmitted ref erence range: 100 - 11 2 MEQ/L. The refe rence range was not u sed to interpret this result as normal/abnor mal. CO2 (test code = See_Comment [Automated message] 1963-8) The system [facility] generated this result transmitted ref erence range: 21 - 30 MEQ/L. The reference r anil was not used to interpret this result as normal/abnor mal. CALCIUM (test code = See_Comment [Autom ated message] 24068-0) The system [facility] [employer] generated this result transmitted ref erence range: 8.5 - 10 .5 MG/DL. The refe rence range was not u sed to interpret this result as normal/abnor mal. PROTEIN TOTAL (test See_Comment [Automa tom message] code = 2885-2) The system [facility] generated this result transmitted ref erence range: 6.1 - 8. 1 G/DL. The reference r anil was not used to interpret this result as normal/abnor mal. ALBUMIN (test code = See_Comment [Autom ated message] 80614-0) The system [facility] h generated this result transmitted ref erence range: 3.4 - 4. 8 G/DL. The reference r anil was not used to interpret this result as normal/abnor mal. GLOBULINS, SERUM, See_Comment [Automate d message] TOTAL (test code = The syste m which 94267-8) generated this result transmitted ref erence range: 1.9 - 3. 7 G/DL. The reference r anil was not used to interpret this result as normal/abnor mal. A/G RATIO (test code See_Comment [Autom ated message] = 1759-0) The system [employer] generated this result transmitted ref erence range: 1.0 - 2. 6 RATIO. The refe rence range was not u sed to interpret this result as normal/abnor mal. BILIRUBIN TOTAL (test See_Comment [Auto mated message] code = 1975-2) The system [facility] generated this result transmitted ref erence range: <=1.2 MG /DL. The reference r anil was not used to interpret this result as normal/abnor mal. ALKALINE PHOSPHATASE 99 U/L 30-132 (test code = 6768-6) AST (SGOT) (test code 24 U/L 7-56 = 1920-8) ALT (SGPT) (test code 17 U/L 3-47 TESTI NG PERFORMED AT = 1744-2) [facility] [address] CLIA NO. [id number] Unless Otherwis e Indicated, All Testing Performed At: [facility], [address] [place] [address] Laborator y Director: Robbie Wagner M.D. CLIA Number [id number] Cap Accreditation N o. [id number] BALBIR (test code = BALBIR) PT FASTING [facility] [id number] 14:32:13 Test Item Value Reference Range Interpretation Comments MAGNESIUM (test code See_Comment TESTIN G PERFORMED AT = 06355-2) [facility], [place] [address] [facility] [address] CLIA NO. [id number] Unle ss Otherwise Indic ated, All Testing Per formed At: [facility], [address] [facility] [place] [address] Laboratory Dire ctor: Robbie de los santos M.D. CLIA Number [id number] [facility] [place] [id number] [Autom ated message] The sy stem which generated this result transmit tom reference range : 1.6 - 2.6 MG/DL. The reference range was not used to interpr et this result as normal/abnormal . BALBIR (test code = PT FASTING BALBIR) [facility] CenterMYOCARD PERFUSION - [id number] 20:00:41: 1. Normal myocardial perfusion study.2. No [...] and left ventricular thickening.Interpreting Physician: Bakari Lai MD[facility], [id number] 14:27:34REPORT Pat.Name: ALEXANDRIA MERCADO.ID: [id number] St.Date: 12/19/2019 Refer.MD: MANNY DEVLIN Exam Time: 9:08:00 AM Study Type:Routine Echo Height: 62in Weight: 155lb BSA: 1.72 m2 Age: 2 1945,74Y Sex: FEMALE BP: 138/78 HR: 55 bpm Sonogrphr: BEENA Morelos Echo Event ID:[id number] EPC Order ID: [id number] Reason for Study:Cardiac evaluation, LV function assessmentHistory / Clinical:HTN, chest pain Procedures:[id number],COMPLETE Race: ++++++++++++++++++++++++++++++++++++SUMMARY:++ ++++++++++++++++++++++++++++++++++1. Left ventricular chamber size (by vol index) [...] Hg. No prior exam available for comparison. ++++++++++++++++++++++++++++++++++++FINDINGS:+++++++ +++++++++++++++++++++++++++++ Rhythm/BP: Sinus bradycardia during the exam.LV: All [...] root size (Sinus of Valsalva diameter) is normal.Pericard: No pericardial effusion is visualized.Systemic Veins: The estimated RA pressure by IVC dynamics 0-5 mmHg.Comparison: No prior exam available forcomparison.Quality: Technically adequate exam. ++++++++++++++++++++++++++++++++++++MEASUREMENTS:+++++ +++++++++++++++++++++++++++++++ 2D Left Ventricle LVIDd 5.1 cm (3.6-5.2) [...] Sm Issa 16.4 cm/s Left Ventricle LmLat Em8.8 cm/s LmLat E/Em 9.3 LmSep Em 7.9 cm/s LmSep E/Em 10.3 Tricuspid Valve TV Issa 254.2 cm/s MMODE TAPSE TAPS Dim 2.5 cm Signed 12/19/2019 09:27 Bakari Vences M.D.[facility] CenterEJECTION FRACTION [id number] 00:00:00 Test Item Value Reference Range Interpretation Comments Ejection Fraction (test code = 61532-1) 60 % 55-75 [facility] CenterCB W/AUTO DIFF WITH [id number] 15:23:26 Test Item Value Reference Range Interpretation Comments WHITE BLOOD CELL COUNT See_Comment H [Aut omated message] (test code = 33427-7) The sy stem which generated this result transmitted ref erence range: 3.5 - 10 .0 K/UL. The refer ence range was not u sed to interpret this result as normal/abnor mal. RED BLOOD CELL COUNT See_Comment [Autom ated message] (test code = 41135-2) The sy stem which generated this result transmitted ref erence range: 3.80 - 5 .20 M/UL. The refer ence range was not u sed to interpret this result as normal/abnor mal. HEMOGLOBIN (test code = See_Comment [Au tomated message] 718-7) The system [employer] generated this result transmitted ref erence range: 12.0 - 1 6.0 G/DL. The refer ence range was not u sed to interpret this result as normal/abnor mal. HEMATOCRIT (test code = 38.5 % 35-46 38283-2) MEAN CORPUSCULAR VOLUME 86.7 fL 80-99 (test code = 24900-5) MEAN CORPUSCULAR 29.1 PG 25-34 HEMOGLOBIN (test code = 33234-7) MEAN CORPUSCULAR See_Comment [Automated message] HEMOGLOBIN CONC (test The sy stem which code = 88339-4) generated th is result transmitted ref erence range: 31.0 - 3 6.0 G/DL. The refer ence range was not u sed to interpret this result as normal/abnor mal. RED CELL DISTRIBUTION 16.2 % 11.5-15 H WIDTH (test code = 68024-9) NEUTROPHILS % (test 48 % 40-75 SEGMENT ED code = 29446-7) NEUTROPHILS, MANUAL DIFFERENTIAL. BANDS % (test code = 8 % 0-8 55236-2) LYMPHOCYTES % (test 30 % 20-45 code = 31209-5) MONOCYTES % (test code 7 % 4-12 = 14673-1) EOSINOPHILS % (test 1 % 0-7 code = 43091-4) BASOPHILS % (test code 4 % 0-2 H = 39874-1) MYELOCYTES % (test code 2 % See_Comment H [Au tomated message] = 26693-2) The system [employer] generated this result transmitted ref erence range: 0.0. The reference range was not used to int erpret this result as normal/abnormal . PLATELET COUNT (test See_Comment [Autom ated message] code = 20356-8) The system [employer] [facility] generated this result transmitted ref erence range: 130 - 40 0 K/UL. The reference r anil was not used to interpret this result as normal/abnor mal. COMMENTS (test code = (NOTE) FEW R EACTIVE 24071-0) LYMPHOCYTES SLI GHT ANISOCYTOSIS SL IGHT POLYCHROMASIA F EW STOMATOCYTES PL ATELETS APPEAR ADEQUATE PLATELETS APPEA R NORMAL TESTING PERFORMED AT [facility], [place] [address] [place], [place] [address] CLIA NO. [id number] Unless Otherwise Indic ated, All Testing Per formed At: [facility], [address] [place] [address] Laborator y Director: Robbie Wagner M.D. CLIA Number [id number] Cap Accreditation N o. [id number] Lab Interpretation Abnormal (test code = 28588-7) [facility] CenterANG,TUNNEL CATH,CENTRAL INST [id number] 20:29:00 IMPRESSION: Insertion of right-sided power-injectable single-lumen [...] permanent image was stored.Port placed: BardCatheter size (Dutch): 6Catheter flush: Heparin (100 units/mL) ClosureThe access [...] Nicole Verified Date/Time: 11/01/2019 15:29:20 Reading Location: [place] [address] Angio Body Reading Room L REPORT PROCEDURE: Venous port placement Procedural PersonnelAttending physician(s): Licha Rojas physician(s): Katy Rubio physician(s): NonePrimary Insurance Business Analyst(s): Neema Samano MD Pre- procedure diagnosis: Bladder cancerPost-procedure diagnosis: SameIndication: Administration of chemotherapyAdditional clinical history: None Complications: No immediate complications. Luiz, Rad Results In - 11/01/2019 3:31 PM CDTFINAL REPORT PROCEDURE: Venous port placement Procedural PersonnelAttending physician(s): Licha Rojas physician(s): ONEYDA Rubioesideena physician(s): NonePrimary Insurance Business Analyst(s): Neema Samano MD Pre-procedure diagnosis: Bladder cancerPost-procedure [...] permanent image was stored.Port placed: BardCatheter size (Dutch): 6Catheter flush: Heparin (100 units/mL) ClosureThe access [...] than 10Standardized report: SIR_Port_v3 AttestationSigner name: Madalyn Alysia attest that I was present for the entire procedure. I reviewed the stored images and agree with the report as written. Signed: Madalyn Nicole MDReport Verified Date/Time: 11/01/2019 15:29:20 Reading Location: [place] [address] Angio Body Reading Room [facility]ANG, TUNNEL CATH CENTRAL INS W/PORT [id number] 15:29:00Reason for Exam:->malignant neoplasm of overlapping sites of bladder FINAL REPORT PROCEDURE: Venous port placement Procedural PersonnelAttending physician(s): Madalyn Nicole MDFekirk physician(s): Katy Rubio physician(s): NonePrimary Insurance Business Analyst(s): Neema Samano MD Pre-procedure diagnosis: Bladder cancerPost-procedure [...] permanent image was stored.Port placed: BardCatheter size (Dutch): 6Catheter flush: Heparin (100 units/mL) ClosureThe access [...] MDReport Verified Date/Time: 11/01/2019 15:29:20 Reading Location: [facility] [id number] Angio Body Reading Room APTT 2019-11-01 15:22:00 Test Item Value Reference Range Interpretation Comments PARTIAL THROMBOPLASTIN See_Comment [Aut omated message] TIME (test code = 3173-2) Th e system which generated this result transmitted ref erence range: 22.5 - 3 6.0 seconds. The re ference range was not u sed to interpret this result as normal/abnor mal. [facility] CenterPROTIME-[id number] 15:21:00 Test Item Value Reference Range Interpretation Comments PROTIME (test See_Comment [Automated code = 38291-3) message] The system which generated this result transmit tom reference range : 11.9 - 14.2 seconds. The reference range was not used to interpret this result as normal/abnormal . INR (test code See_Comment [Automated = 97425-3) message] The system which generated this result [...] 2.5-3.5 for patients wiht mechanical heart valves. [facility]00 Test Item Value Reference Range Interpretation Comments PARTIAL THROMBOPLASTIN TIME 29.5 seconds 22.5-36.0 (BEAKER) (test code = 760) PROTHROMBIN TIME/[id number] 10:21:00 Test Item Value Reference Range Interpretation [...] mechanical heart valves.CBC W/PLT COUNT & AUTO [id number] 09:53:00 Test Item Value Reference Range Interpretation [...] (test code = 2801) CT CHEST W [id number] 18:26:00Impression:No evidence of metastatic disease in the chest. Signed: Davide Delatorre MDReport VerifiedDate/Time: 10/27/2019 13:26:23 Reading Location: [address] Ortho Consult Reading Room L REPORT CT [...] Delatorre Verified Date/Time: 10/27/2019 13:26:23 Reading Location: [address] [facility] IV [id number] 13:26:00FINAL REPORT CT Chest with contrast History:Malignant [...] disease in the chest. Signed: Davide Delatorre MDRdante Verified Date/Time: 10/27/2019 13:26:23 Reading Location: [facility] OrthoConsult Reading Room ICAL PATHOLOGY [id number] 19:52:00 Test Item Value Reference Range Interpretation Comments CASE REPORT (test code Surgical Pathology = 76337) Report Case: [id number] Authorizing Provider: Vita Jaimes MD Collected: 10/14/2019 09:26 AM [facility] Received: 10/14/2019 11:24 AM [...] DIAGNOSIS (test code = A. 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 No surface CIS is seen on any of the slides. It would be important in this case to consider the possibility of metastatic breast carcinoma which can mimic plasmacytoid variant of urothelial cancer, especially since there is no associated urothelial carcinoma in situ in this case. CPT (test code = 36009 X 7, [id number] [id number]) CLINICAL HISTORY (test Preop diagnosis: code = [...] MICROSCOPIC Performed. DESCRIPTION (test code = 819) [facility] [id number] 14:52:00Surgical Pathology Report Case: [id number] Authorizing Provider: Vita Jaimes MD Collected: 10/14/2019 09:26 AM Ordering Location: [facility] Received: 10/14/2019 11:24 AM SERVICES Pathologist: Reinaldo Matta MD Specimens: A) - Bladder Biopsy, Right Wall, right posterior lateral wall blue light positive B) - Bladder Biopsy, Right Wall, right lateral wall C) - Bladder Biops y, Right Wall, right anterior wall, blue light [...] BIOPSY: - NO PATHOLOGIC DIAGNOSIS - MUSCULARIS PROPRIAABSENTE. URINARY BLADDER, POSTERIOR MIDLINE WALL, BIOPSY: - NO PATHOLOGIC DIAGNOSIS - MUSCULARIS PROPRIA PRESENTF. URINARY BLADDER, LEFT LATERAL WALL, BIOPSY: - NO PATHOLOGIC DIAGNOSIS - MUSCULARIS PROPRIA PRESENTG. URINARY BLADDER, TRIGONE, BIOPSY: - MILD CHRONIC INFLAMMATION, NEGATIVE FOR DYSPLASIA OR CARCINOMA] - MUSCULARIS PROPRIA ABSENTH. URINARY BLADDER, RIGHT POSTERIOR WALL, PREVIOUS RESECTIONSITE, TURBT: - UROTHELIAL CARCINOMA, HIGH GRADE (WHO GRADE 3), INVASIVE INTO MUSCULARIS PROPRIA - NEGATIVE FOR LYMPH VASCULAR INVASION - PRIOR RESECTION SITE CHANGE SEEN Signing Pathologist Direct Phone Line: [phone] signed by Reinaldo Matta MD on 10/17/2019 at 2:52 PMThe tumor is 90% of the plasmacytoid type. No surface CIS is seen on any of the slides. It would be important in this case to consider the possibility of metastatic breast carcinoma which can mimic plasmacytoid variant of urothelial cancer, especially since there is no associated urothelial carcinoma in situ in this case. 85469 X 7, [id number] diagnosis: Malignant neoplasm of overlapping sites of [...] with the patient's name, accession number and "bladderdome biopsy" is a 0.2 x 0.1 x 0.1 cm buck-pink tissue fragment which is filtered and submitted in toto in D1. E. Received in formalin labeled with the patient's name, accession number and "posterior midline bladder biopsy" is a 0.2 x 0.2 x 0.2 cm buck-pink tissue fragment which is filtered and submittedin toto in E1. F. Received in formalin [...] H. Received in formalin labeled with the patient'sname, accession number and "right posterior bladder wall biopsy" is a 2.4 x 1.1 x 0.3 cm aggregate of buck-pink rubbery tissue which is entirely submitted in H2. PA/pl Performed.RAD, CHEST, 2 [id number] 09:24:00 Reason for Exam:->C67.8FINAL REPORT CHEST RADIOGRAPH - 2 [...] MDReport Verified Date/Time: 10/13/2019 09:24:28 Reading Location: [facility] Reading Room [address] [place] [address] CT, [id number] 16:53:00CT UROGRAMFINAL REPORT CT of the abdomen [...] or distant metastasis is identified. Signed: Beto Bianchieport Verified Date/Time: 10/12/2019 16:53:35 Reading Location: [facility] C013X Ortho Consult Reading Room POCT URINALYSIS [id number] 00:00:00 Test Item Value Reference Range Interpretation Comments COLOR UA (test code = 5778-6) Yellow YELLOW/STRAW CLARITY UA (test code = 21539-9) Clear CLEAR GLUCOSE UA (test code = 5792-7) Negative NEGATIVE BILIRUBIN UA (test code = 5770-3) Negative NEGATIVE KETONES UA (test code = 40531-7) Negative NEGATIVE SPECIFIC GRAVITY UA (test code [...] NEGATIVE REDUCING SUBSTANCES URINE (test code = 03993-9) [facility]
--- NOTE | 2022-06-02 15:39 | RAD REPORT ---
EXAM DESCRIPTION: RAD - Hip Left 2 View - 06/02/2022 3:28 pm CLINICAL HISTORY: PAIN COMPARISON: Hip Left 2 View dated 07/22/2019; Hip Left 2 View dated 07/05/2018 FINDINGS: [id number] osteoarthritis left hip. No fracture, dislocation or AVN.
--- NOTE | 2022-06-02 17:13 | RAD REPORT ---
EXAM DESCRIPTION: CT - Abdomen Pelvis Wo Contrast - 06/02/2022 4:46 pm CLINICAL HISTORY: Abdominal pain. fall COMPARISON: Abdomen Pelvis Wo Contrast dated 07/09/2020 TECHNIQUE: CT imaging of the abdomen and pelvis was performed without contrast. Solid organ, bowel a nd vascular assessment is limited due to lack of IV and oral contrast. All CT scans are performed using dose optimization technique as appropriate and may include automated exposure control or mA/KV adjustment according to patient size. FINDINGS: The lower lung cornejo are clear.Numerous gallstones in the gallbladder. The liver, spleen, pancreas, adrenal glands and kidneys are within normal limits for a limited non-co ntrast examination. No bowel obstruction, free air, free fluid or abscess. Changes of previous bladder resection with saray bladder. Left L2 transverse process demonstrates mild fracture. Mild superior compression deformity also noted affecting L3. IMPRESSION: Left transverse process fracture of L2. Mild superior compression deformity L3. Numerous gallstones are present gallbladder. A limited non-contrast examination was performed as detailed.
[2022-06-02] MEDS ORDERED: ACETAMINOPHEN 500 MG TAB ONE (18:14)
[2022-06-02] MEDS ORDERED: TRAMADOL HCL 50 MG TAB ONE (18:15)
--- NOTE | 2022-06-03 01:02 | ER ---
Nurse's Notes [facility] Name: Marily Gonsales Age: 76 yrs Sex: Female : 1945 Arrival Date: 06/02/2022 Time: 14:12 Bed 23 Private MD: Diagnosis: Pain in hip Presentation: 06/02 15:09 Chief complaint: Patient states: Fell from standing 3 weeks ago - C/O left hip pain. ld1 Coronavirus screen: At this time, the client does not indicate any symptoms associated with coronavirus-19. Ebola Screen: No symptoms or risks identified at this time. Initial Sepsis Screen: Does the patient meet any 2 criteria? No. Patient's initial sepsis screen is negative. Does the patient have a suspected source of infection? No. Patient's initial sepsis screen is negative. Risk Assessment: Do you want to hurt yourself or someone else? Patient reports no desire to harm self or others. Onset of symptoms was June 02, 2022. 15:09 Method Of Arrival: Ambulatory ld1 15:09 Acuity: CORI 3 ld1 Triage Assessment: 15:09 General: Appears in no apparent distress. comfortable, Behavior is calm, cooperative, ld1 appropriate for age. Pain: Complains of pain in left hip Pain does not radiate. Pain currently is 8 out of 10 on a pain scale. EENT: No signs and/or symptoms were reported regarding the EENT system. Neuro: Level of Consciousness is awake, alert, obeys commands, Oriented to person, place, time, situation. Cardiovascular: Capillary refill < 3 seconds Patient's skin is warm and dry. Respiratory: Airway is patent Respiratory effort is even, unlabored. GI: Abdomen is flat, non-distended. : No signs and/or symptoms were reported regarding the genitourinary system. Derm: No signs and/or symptoms reported regarding the dermatologic system. Musculoskeletal: Reports pain in left hip. Historical: - Allergies: 15:09 Sulfa (Sulfonamide Antibiotics); ld1 - PMHx: 15:09 Bladder cancer; CHF; COPD; Hypertension; Hypothyroidism; ld1 - PSHx: 15:09 Bladder; section; ld1 - Immunization history:: Adult Immunizations up to date, Client reports receiving the 2nd dose of the Covid vaccine. - Social history:: Smoking status: Patient denies any tobacco usage or history of. Patient/guardian denies using alcohol. Vital Signs: 15:09 BP 135 / 61; Pulse 51; Resp 18; Temp 98.3(O); Pulse Ox 100% on R/A; Weight 65.32 kg; ld1 Height 5 ft. 2 in. (157.48 cm); Pain 8/10; 15:09 Body Mass Index 26.34 (65.32 kg, 157.48 cm) ld1 ED Course: 14:12 Patient arrived in ED. mr 14:41 Lazaro Ramos PA is PHCP. cp 14:41 Rosalio Glaser MD is Attending Physician. cp 15:09 Arm band placed on right wrist. ld1 15:10 Triage completed. ld1 15:28 XRAY Hip LEFT 2 view In Process Unspecified. EDMS 16:47 CT Abd/Pelvis - Without Contrast In Process Unspecified. EDMS Administered Medications: No medications were administered Outcome: 20:05 Discharge ordered by . em6 20:05 Patient left the ED. em6 Signatures: Dispatcher [employer] EDMS Annalee Bergeron mr Lazaro Ramos PA PA cp Dibbern, Lauren, RN RN ld1 Dyan Cunningham RN RN em6
[2022-06-03 01:32] VITALS: BP 135/61; TEMP 98.3; O2SAT 100
--- NOTE | 2022-06-03 20:05 | EDPHYS ---
Physician Documentation [facility] Name: Marily Gonsales Age: 76 yrs Sex: Female : 1945 Arrival Date: 06/02/2022 Time: 14:12 Bed 23 Private MD: ED Physician Rosalio Glaser HPI: 06/02 15:20 This 76 yrs old Female presents to ER via Ambulatory with complaints of Fall Injury, cp Hip Pain. 15:20 Details of fall: The patient fell from an upright position, while walking, and struck a cp concrete surface. Onset: The symptoms/episode began/occurred 3 week(s) ago. Associated injuries: The patient sustained pelvis and left hip and low back. Patient reports continued pain to left hip since fall onto buttocks 3 weeks ago. Patient reports falling onto concrete surface. No LOC, did not strike head. Historical: - Allergies: 15:09 Sulfa (Sulfonamide Antibiotics); ld1 - PMHx: 15:09 Bladder cancer; CHF; COPD; Hypertension; Hypothyroidism; ld1 - PSHx: 15:09 Bladder; section; ld1 - Immunization history:: Adult Immunizations up to date, Client reports receiving the 2nd dose of the Covid vaccine. - Social history:: Smoking status: Patient denies any tobacco usage or history of. Patient/guardian denies using alcohol. ROS: 15:25 Constitutional: Negative for body aches, chills, fever, poor PO intake. cp 15:25 Eyes: Negative for injury, pain, redness, and discharge. cp 15:25 Neck: Negative for pain with movement, pain at rest, stiffness. 15:25 Cardiovascular: Negative for chest pain, palpitations. 15:25 Respiratory: Negative for cough, shortness of breath, wheezing. 15:25 Back: Positive for pain at rest, pain with movement, of the lumbar area. 15:25 MS/extremity: Positive for pain, tenderness, of the left hip and pelvis, Negative for decreased range of motion, deformity, paresthesias. 15:25 Neuro: Negative for altered mental status, dizziness, headache, numbness, syncope, weakness. 15:25 All other systems are negative. Exam: 15:30 Constitutional: The patient appears in no acute distress, alert, awake, cp non-diaphoretic, non-toxic, well developed, well nourished. 15:30 Head/Face: Normocephalic, atraumatic. cp 15:30 Eyes: Periorbital structures: appear normal, Conjunctiva: normal, no exudate, no injection, Sclera: no appreciated abnormality, Lids and lashes: appear normal, bilaterally. 15:30 ENT: External ear(s): are unremarkable, Nose: is normal, Mouth: Lips: moist, Oral mucosa: moist, Posterior pharynx: Airway: no evidence of obstruction, patent. 15:30 Neck: C-spine: vertebral tenderness, is not appreciated, crepitus, is not appreciated, ROM/movement: is normal, is supple, without pain, no range of motions limitations. 15:30 Chest/axilla: Inspection: normal, Palpation: is normal, no crepitus, no tenderness. 15:30 Cardiovascular: Rate: bradycardic, Edema: is not appreciated, JVD: is not appreciated. 15:30 Respiratory: the patient does not display signs of respiratory distress, Respirations: normal, no use of accessory muscles, no retractions, labored breathing, is not present, Breath sounds: are clear throughout, no decreased breath sounds, no stridor, no wheezing. 15:30 Abdomen/GI: Inspection: abdomen appears normal, Palpation: abdomen is soft and non-tender, in all quadrants. 15:30 Back: pain, that is mild, of the lumbar area, ROM is normal, Straight leg raises: of both lower extremities does not illicit pain. 15:30 Musculoskeletal/extremity: Extremities: noted in the left hip: pain, There is no evidence of decreased ROM, deformity, ROM: limited passive range of motion due to pain, in the left hip, Pulses: noted to be 2+ in the left dorsalis pedis artery, the left leg Sensation intact. 15:30 Neuro: Orientation: no acute changes, per family, Mentation: no acute changes, per family, Motor: moves all fours, strength is normal, Sensation: is normal. Vital Signs: 15:09 BP 135 / 61; Pulse 51; Resp 18; Temp 98.3(O); Pulse Ox 100% on R/A; Weight 65.32 kg; ld1 Height 5 ft. 2 in. (157.48 cm); Pain 8/10; 15:09 Body Mass Index 26.34 (65.32 kg, 157.48 cm) ld1 MDM: 15:12 Patient medically screened. cp 17:30 Data reviewed: vital signs, nurses notes, radiologic studies, CT scan, plain films. cp 17:30 Differential diagnosis: contusion, fracture, multiple trauma. Test interpretation: by cp ED physician or midlevel provider: plain radiologic studies. 06/02 15:11 Order name: XRAY Hip LEFT 2 view; Complete Time: 17:20 ld1 06/02 15:59 Order name: CT Abd/Pelvis - Without Contrast; Complete Time: 17:20 cp Administered Medications: No medications were administered Disposition: 06/03 16:09 Co-signature as Attending Physician, Rosalio Glaser MD. rn Disposition Summary: 06/02/22 20:05 Discharge Ordered Location: Home em6 Condition: Stable em6 Diagnosis - Pain in hip em6 Forms: - Medication Reconciliation Form em6 - Thank You Letter em6 - Antibiotic Education em6 - Prescription Opioid Use em6 Signatures: Dispatcher [employer] EDMS Rosalio Glaser MD MD rn Lazaro Ramos PA PA cp Ernestine Lord, BREANNE RN ld1 Dyan Cunningham RN RN em6
== END 2022-06-02 20:05 | disposition home or self-care (01) ==
LOC: ER 14:09
DX: M25.552 Pain in left hip (principal); I10 Essential (primary) hypertension; Z88.2 Allergy status to sulfonamides
CPT/HCPCS: 74176; 99282

== ENCOUNTER 2022-06-19 11:20 | Emergency (ER) | payer OTHER, BC ==
--- OUTSIDE RECORDS SUMMARY | 2022-06-19 11:48 | XMS REPORT | Continuity of Care Document ---
:1945 Author Organization [facility] t Address [address] [place] [address] Care Team Providers Name Role Phone JUAN R OLIVER Primary Care Physician Unavailable EMILY ADAMS Attending Clinician Unavailable Juan R Oliver Attending Clinician Unavailable VITA JAIMES Attending Clinician Unavailable BIRD YEN Attending Clinician Unavailable Bird Yen MD Attending Clinician Virtual, Surgeon Attending Clinician Unavailable VITA JAIMES Attending Clinician Unavailable OMAR YEN Attending Clinician Unavailable 1, [facility] Room Attending Clinician Unavailable FERNANDO POOLE Attending Clinician Unavailable Michael Campos Attending Clinician ALEC FOSS Attending Clinician Unavailable Omar Yen MD Attending Clinician Vita Jaimes MD Attending Clinician Fernando Poole MD Attending Clinician Doctor Unassigned, [employer] Attending Clinician Unavailable 2, [facility] Attending Clinician Unavailable Alec oFss MD Attending Clinician Alfredo MARTIN, Nestor Parker Attending Clinician C-Arm, Pmr [employer] Attending Clinician Chas MARTIN, Giancarlo Attending Clinician 13, [facility] Chair Attending Clinician Uzma PhD, Shun Attending Clinician Frandy MARTIN, Manny Leos Attending Clinician Mercy Garcia Attending Clinician Juanita RAYMUNDO, Kayleigh Attending Clinician Unavailable VITA JAIMES Admitting Clinician Unavailable BIRD YEN Admitting Clinician Unavailable Payers Payer Name Policy Type Policy Number Effective Date Expiration Date S polly MEDICARE PART A AND [id number] 2020 B 00:00:00 BCBS HMO [id number] 2017 BLUE/ESSENTIALS 00:00:00 MEDICARE A B [id number] 2020 00:00:00 MEDICARE PART A \\T\\ [id number] B - MEDICARE HEALTHSELECT [id number] 2020 SECONDARY 65+ - 00:00:00 BCBS CVCP-BCBS [id number] O BLUE BEHAVIORAL [id number] [facility] MEDICARE PART A \\T\\ [id number] 2020 B 00:00:00 BCBS TRADITIONAL [id number] 2020 00:00:00 CDC REVIEW [id number] 2020 00:00:00 Problems Condition Condition Condition Status Onset Resolution Last Treating Co mments Source Name Details Category Date Date Treatment Clinician Date Overactive Overactive Disease Active [facility] bladder bladder 08-08 [facility] 00:00: of 00 Medicin e Constipati Constipati Disease Active [facility] on on 08-02 College 00:00: of 00 Medicin e ORTEGA ORTEGA Disease Active [facility] (stress (stress 08-02 College urinary urinary 00:00: of incontinen incontinen 00 Me dicin ce, ce, e female) female) Thyroid Thyroid Disease Active 2019-07 [facility] nodule nodule 2-13 ity of 00:00: [place] 00 [facility] Post-menop Post-menop Disease Active 2019-07 U nivshaneka ausal ausal 2-13 ity of bleeding bleeding 00:00: Medical Branch Hyperchole Hyperchole Disease Active 2019-07 U patria steremia steremia 2-13 ity of 00:00: [place] [facility] Vaginal Vaginal Disease Active 2019-07 [facility] bleeding bleeding 1-19 Colleg e 00:00: of 00 Medicin e Port-A-Cat Port-A-Cat Disease Active [facility] h in place h in place 8-11 Co llege 00:00: of 00 Medicin e Urothelial Urothelial Disease Active [facility] Malignant Malignant Disease Active [facility] neoplasm neoplasm 4-07 Colleg e of of 00:00: of overlappin overlappin 00 Me dicin g sites of g sites of e bladder bladder (HCCode) (HCCode) Bladder Bladder Disease Active [facility] 3-27 [facility] 00 [place] Malignant Malignant Disease Active Uni vers neoplasm [...] Problem Active 2021-07-06 Mayco marylu radiculopa radiculopa 2-25 23:13:08 l thy thy 00:00: Aleksey (disorder) (disorder) 00 Active 09/13/2015 Problem 07/06/2021 [facility] Neck pain Neck pain Problem Active 2021-07-06 [facility] (finding) (finding) 1- 23:13:08 l Active 00:00: Aleksey 08/17/2015 00 Problem 07/06/2021 [facility] Paresthesi Paresthes Problem Active 2016-0 2021-07-06 [facility] a ia 08-17 23:13:08 l (finding) (finding) 00:00: Herm beto Active 00 08/17/2015 Problem 07/06/2021 [facility] Malignant Malignant Problem Active Com mon neoplasm neoplasm [facility] urinary of urinary - [facility] bladder, bladder, St unspecifie unspecifie Marqu[facility] site [facility] Malignant Malignant Problem Active Com mon neoplasm neoplasm [facility] of - [facility] overlappin overlappin St g sites of g sites of [facility] bladder bladder [facility] Center 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 Problem 07/06/2021 [facility] Dizziness Dizziness Problem Active 2021-07-06 [facility] (finding) (finding) 23:13:08 l Active [facility]sey Problem 07/06/2021 [facility] Hip pain Hip pain Problem Active 2021-07-06 [facility] (finding) (finding) 23:13:[address] [facility] Problem 07/06/2021 [facility] Hypertensi Hypertens Problem [...] Me moria (finding) (finding) 23:13:08 l Active [facility] Problem 07/06/2021 [facility] Peripheral Periphera Problem [...] Date Date Clinician Sulfa Propensi Active Swelling 2020-[address] [facility] (Sulfona ty to 3-23 [facility] mide adverse 00:00: Medical Antibiot reaction 00 Center ics) s SULFA Drug Active Swelling 2020-0 Univers (SULFONA Class 3-23 ity of MIDE 00:00: [place] ANTIBIOT 00 Medical ICS) Branch Sulfa Propensi Active Swelling 2020-[address] (Sulfona ty to 3-23 [facility] mide adverse 00:00: Medical Antibiot reaction 00 Center ics) s SULFA Allergy Active Swelling 2020-[address] (SULFONA 3-23 [facility] MIDE 00:00: Medical ANTIBIOT 00 Center ICS) Sulfa Propensi Active Swelling 2020-0 [facility] Antibiot ty to 3-17 [facility] ics adverse 00:00: of reaction 00 Medicin s to e drug sulfa sulfa Active [facility] drugs drugs l [facility] NO KNOWN Drug Active Univers ALLERGIE Class ity of S [place] [facility] Family History Family Member Diagnosis Comments Start Date Stop Date Source Natural father Diabetes [facility] Natural mother Breast Cancer [facility] Natural mother High Blood Pressure [facility] Social History Social Habit Start Date Stop [...] (finding) Exposure to 2022-02-04 2022-02-14 Not sure [facility] Lisaawa cornelius SARS-CoV-2 (event) 00:00:00 10:42:00 of Med icine Tobacco use and 2019-10-10 2019-10-[address] [facility] Marquita kes exposure 00:00:00 00:00:00 Medical Center History SDOH 2019-10-10 2019-10-[address] [facility] Alcohol Frequency 00:00:00 00:00:00 Medical Center Sex Assigned At [address] [facility] kes 00:00:00 00:00:00 Medical Center Smoking Status Start Date Stop Date Source Unknown if ever smoked [facility] Social History [facility] Medications Ordered Filled Start Stop Current Ordering Indication Dosage Frequency Signature Comments Components Source Medication Medication Date Date Medication? Clinician (SIG) Name Name triamterene Yes 1{capsu QD Take 1 C [...] [facility] ne 9-15 mcg by [facility] (SYNTHROID, 11:07: mouth Medic al LEVOTHROID) 12 Every Center 125 MCG morning on tablet an empty stomach. gabapentin Yes 300mg QD Take [address] (NEURONTIN) 9-15 mg by [facility] 300 MG 11:07: mouth Medical capsule 12 daily. [employer] [place] atorvastati Yes 20mg QD Take [address] n (LIPITOR) 9-15 by mouth Luke s 20 MG 11:07: daily. Medical tablet 12 Center lamoTRIgine Yes 50mg QD Take [address] (LAMICTAL) 9-15 by mouth [facility] 25 MG 11:07: daily. Medical tablet 12 [employer] [place] hydrOXYzine Yes anxiety 50mg Q.[id number] Take [address] (ATARAX) 25 9-15 [id number] by mouth 3 [facility] MG tablet 11:07: [...] Luke s 11:07: mouth Medical 12 daily. [place] vit A/C/E Yes QD Take by [facility] t ac/ZnOx/cup 9-15 mouth [facility] rory oxide 11:07: daily. Medica l (EYE 12 Center VITAMIN AND MINERALS ORAL) b complex Yes 1{capsu QD Take [address] vitamins 9-15 le} capsule by [facility] capsule 11:07: mouth Medical 12 daily. [place] calcium Yes 1{tbl} Q.5D Take 1 [facility] [...] 11:07: mouth Medica l GG, 12 daily. [employer] [place] (CULTURELLE ) 10 billion cell capsule polycarboph Yes 625mg Q.[id number] Take [address] il 9-15 [id number] mg by [facility] (FIBERCON) 11:07: 3D mouth 3 Medi mariama 625 mg 12 (three) Center tablet times daily. biotin Yes QD Take by [facility] 2,500 mcg 9-15 mouth [facility] Cap 11:07: daily. Medical 12 [place] MAGNESIUM Yes Take by CHI S t GLYCINATE 9-15 mouth. [facility] ORAL 11:07: Medical 12 Center UNKNOWN Yes L-Theanine [facility] 9-15 200 mg [facility] 11:07: daily . Medical 12 Center ascorbic Yes 500mg QD Take [address] acid, 9-15 mg by Wilver vitamin C, 11:07: mouth Medica l (VITAMIN C) 12 daily. [place] 500 MG tablet TURMERIC Yes Take by [facility] ORAL 9-15 mouth. [facility] 11:07: Medical 12 [employer] [place] triamterene Yes 1{capsu QD Take 1 C [...] [facility] I [facility] (NEURONTIN) 9-15 mg by Wilver 300 MG 11:07: mouth Medical capsule 12 daily. [employer] [place] atorvastati Yes 20mg QD Take [address] n (LIPITOR) 9-15 by mouth Luke s 20 MG 11:07: daily. Medical tablet 12 [employer] [place] lamoTRIgine Yes 50mg QD Take [address] (LAMICTAL) 9-15 by mouth [facility] 25 MG 11:07: daily. Medical tablet 12 [place] hydrOXYzine Yes anxiety 50mg Q.[id number] Take [address] (ATARAX) 25 9-15 [id number] by mouth 3 [facility] MG tablet 11:07: [...] Luke s 11:07: mouth Medical 12 daily. Center vit A/C/E Yes QD Take by CHI [...] 11:07: daily. Medica l OIL) 120 12 [employer] [place] mg-180 mg- 60 mg-1,200 mg CpDR lactobacill Yes 1{capsu QD Take [address] us 9-15 le} capsule by [facility] rhamnosus, 11:07: mouth Medica l GG, 12 daily. [employer] [place] (CULTURELLE ) 10 billion cell capsule polycarboph Yes 625mg Q.[id number] Take [address] il 9-15 [id number] mg by [facility] (FIBERCON) 11:07: 3D mouth 3 Medi mariama 625 mg 12 (three) Center tablet times daily. biotin Yes QD Take by [facility] 2,500 mcg 9-15 mouth [facility] Cap 11:07: daily. [address] MAGNESIUM Yes Take by CHI S t GLYCINATE 9-15 mouth. [facility] ORAL 11:07: Medical [address] [place] [address] UNKNOWN 0 Yes L-Theanine [facility] 9-15 200 mg [facility] 11:07: daily . [address] ascorbic Yes 500mg QD Take [address] acid, 9-15 mg by [facility] vitamin C, 11:07: mouth Medica l (VITAMIN C) 12 daily. [place] 500 MG tablet TURMERIC Yes Take by [facility] ORAL 9-15 mouth. [facility] 11:07: Medical [address] [place] [address] triamterene Yes 1{capsu QD Take [address] -hydroCHLOR 9-15 le} capsule by Marquita ocampo Othiazide 11:07: mouth Medical (DYAZIDE) 12 every Center 37.5-25 mg morning. per capsule potassium Yes 10meq QD Take [address] chloride 9-15 mEq by [facility] (MICRO-K) 11:07: mouth Medical 10 mEq CR 12 daily . Center capsule levothyroxi Yes 125ug Take [address] ne 9-15 mcg by [facility] (SYNTHROID, 11:07: mouth Medic al LEVOTHROID) 12 Every Center 125 MCG morning on tablet an empty stomach. gabapentin Yes 300mg QD Take [address] (NEURONTIN) 9-15 mg by [facility] 300 MG 11:07: mouth Medical capsule 12 daily. [place] atorvastati Yes 20mg QD Take [address] n (LIPITOR) 9-15 by mouth Luke s 20 MG 11:07: daily. Medical tablet 12 [employer] [place] lamoTRIgine Yes 50mg QD Take [address] (LAMICTAL) 9-15 by mouth [facility] 25 MG 11:07: daily. Medical tablet 12 [place] hydrOXYzine Yes anxiety 50mg Q.[id number] Take [address] (ATARAX) 25 9-15 [id number] by mouth 3 [facility] MG tablet 11:07: [...] Luke s 11:07: mouth Medical 12 daily. [place] vit A/C/E Yes QD Take by [facility]I [facility] t ac/ZnOx/cup 9-15 mouth [facility] rory oxide 11:07: daily. Medica l (EYE 12 Center VITAMIN AND MINERALS ORAL) b complex Yes 1{capsu QD Take [address] vitamins 9-15 le} capsule by [facility] capsule 11:07: mouth Medical 12 daily. [place] calcium Yes 1{tbl} Q.5D Take 1 CHI [...] 11:07: mouth Medica l GG, 12 daily. [place] (CULTURELLE ) 10 billion cell capsule polycarboph Yes 625mg Q.[id number] Take [address] il 9-15 [id number] mg by [facility] (FIBERCON) 11:07: 3D mouth 3 Medi mariama 625 mg 12 (three) Center tablet times daily. biotin Yes QD Take by [facility] 2,500 mcg 9-15 mouth [facility] Cap 11:07: daily. Medical 12 [place] MAGNESIUM Yes Take by CHI S t GLYCINATE 9-15 mouth. [facility] ORAL 11:07: Medical 12 [place] UNKNOWN Yes L-Theanine [facility] 9-15 200 mg [facility] 11:07: daily . Medical 12 [place] ascorbic Yes 500mg QD Take [address] acid, 9-15 mg by [facility] vitamin C, 11:07: mouth Medica l (VITAMIN C) 12 daily. [place] 500 MG tablet TURMERIC Yes Take by [facility] ORAL 9-15 mouth. [facility] 11:07: Medical 12 [place] triamterene Yes 1{capsu QD Take [address] -hydroCHLOR 8-30 le} capsule by Marquita ocampo Othiazide 11:05: mouth Medical (DYAZIDE) 32 every Center 37.5-25 mg morning. per capsule potassium Yes 10meq QD Take [address] chloride 8-30 mEq by [facility] (MICRO-K) 11:05: mouth Medical 10 mEq CR [...] mouth Medical capsule 32 daily. Center atorvastati 0 Yes 20mg QD Take [address] n (LIPITOR) 8-30 by mouth Luke s 20 MG 11:05: daily. Medical tablet 32 Center lamoTRIgine 0 Yes 50mg QD Take [address] (LAMICTAL) 8-30 by mouth [facility] 25 MG 11:05: daily. Medical tablet 32 Center hydrOXYzine 0 Yes anxiety 50mg Q.[id number] Take [address] (ATARAX) 25 8-30 [id number] by mouth 3 [facility] MG tablet 11:05: [...] Luke s 11:05: mouth Medical 32 daily. Center vit A/C/E Yes QD Take by CHI [...] mg-180 mg- 60 mg-1,200 mg CpDR lactobacill 2022-0 Yes 1{capsu QD Take [address] us 8-30 le} capsule by [facility]ukes rhamnosus, 11:05: mouth Medica l GG, 32 daily. [place] ([facility] 10 billion cell capsule polycarboph Yes 625mg Q.[id number] Take [address] il 8-30 [id number] mg by [facility]ukes (FIBERCON) 11:05: 3D mouth 3 Medi mariama 625 mg 32 (three) Center tablet times daily. biotin Yes QD Take by [facility] 2,500 mcg 8-30 mouth [facility] Cap 11:05: daily. [address] MAGNESIUM Yes Take by [facility]I S t GLYCINATE 8-30 mouth. [facility] ORAL 11:05: [address] UNKNOWN Yes L-Theanine [facility] 8-30 200 mg [facility] 11:05: daily . [address] ascorbic Yes 500mg QD Take [address] acid, 8-30 mg by [facility] vitamin C, 11:05: mouth Medica l (VITAMIN C) 32 daily. [place] 500 MG tablet TURMERIC Yes Take by [facility] ORAL 8-30 mouth. [facility] 11:05: [address] gabapentin Yes 300mg Take 300 [facility] (NEURONTIN) 8-02 mg by [facility] 300 MG 15:41: mouth of capsule 27 daily. Medicin e levothyroxi Yes 112ug Take 112 [facility] ne 8-02 mcg by [place] (SYNTHROID) 15:41: mouth of 112 MCG 27 daily. Medicin tablet e olanzapine Yes 5mg Take 5 mg [facility] (ZYPREXA) 5 8-02 by mouth Shanel ege MG tablet 15:41: nightly. of 27 Medicin e Aspirin 81 Yes 81mg Take 81 mg [facility] MG tablet 8-02 by mouth Colleg e 15:41: daily. of 27 Medicin e atorvastati Yes 80mg Take 80 mg [facility] n (LIPITOR) 8-02 by mouth Shanel ege 80 MG 15:41: daily. of tablet 27 Medicin e gabapentin Yes 300mg Take 300 [facility] (NEURONTIN) 7-29 mg by [facility] [place] 300 MG 11:32: mouth of capsule 54 daily. Medicin e levothyroxi 0 Yes 112ug Take 112 [facility] ne 7-29 mcg by College (SYNTHROID) 11:32: mouth of 112 MCG 54 [...] 300 [facility] (NEURONTIN) 4-29 mg by [facility] [place] 300 MG 10:38: mouth of capsule 03 daily. Medicin e levothyroxi 0 Yes 112ug Take 112 [facility] ne 4-29 mcg by [facility] [place] (SYNTHROID) 10:38: mouth of 112 MCG 03 daily. Medicin tablet e olanzapine 0 Yes 5mg Take 5 mg [facility] (ZYPREXA) 5 4-29 by mouth Shanel ege MG tablet 10:38: nightly. of 03 Medicin e Aspirin 81 2021-0 Yes 81mg Take 81 mg [facility] MG tablet 4-29 by mouth Colleg e 10:38: daily. of 03 Medicin e Aspirin 0 Yes 81mg Take 81 mg [facility] (ASPIR-LOW) 3-01 by mouth Shanel ege 81 MG 15:04: daily. of tablet 50 Medicin e gabapentin 2021-0 Yes 300mg Take 300 [facility] (NEURONTIN) 3-01 mg by [facility] [place] 300 MG 15:04: mouth of capsule 33 daily. Medicin e levothyroxi 2021-0 Yes 112ug Take 112 [facility] ne 3-01 mcg by [facility] [place] (SYNTHROID) 15:04: mouth of 112 MCG 33 daily. Medicin tablet e olanzapine 2021-0 Yes 5mg Take 5 mg [facility] (ZYPREXA) 5 3-01 by mouth Shanel ege MG tablet 15:04: nightly. of 33 Medicin e atorvastati 2021-0 2021- No 20mg Take 20 mg [facility] n (LIPITOR) 09-17 by mouth Col lege 20 MG 15:04: 00:00 daily. of tablet 29 :00 Medicin e Turmeric 2021- No 1{sonia Take 1 Jay dayna Curcumin 09-17 t} Caplet by Lisa ge 500 MG CAPS 15:04: 00:00 mouth See of 29 :00 Admin Medicin Instructio e ns. trospium Yes [id number] 20mg Take 1 [facility] (SANCTURA) 09-17 Tablet by Shanel ege 20 MG 00:00: mouth 3 of tablet 00 times Medicin daily e (before meals). trospium 0 Yes [id number] 20mg Take 1 [facility] (SANCTURA) - Tablet by Shanel ege 20 MG 00:00: mouth 3 of tablet 00 times Medicin daily e (before meals). trospium Yes [id number] 20mg Take 1 [facility] (SANCTURA) 09-17 Tablet by Shanel ege 20 MG 00:00: mouth 3 of tablet 00 times Medicin daily e (before meals). gabapentin 0 Yes 300mg Take 300 [facility] (NEURONTIN) 1-28 mg by [facility] [place] 300 MG 10:09: mouth of capsule 27 daily. Medicin e atorvastati Yes 20mg Take 20 mg [facility] n (LIPITOR) 1-28 by mouth Shanel ege 20 MG 10:09: daily. of tablet 27 Medicin e levothyroxi Yes 112ug Take 112 [facility] ne 1-28 mcg by [facility] [place] (SYNTHROID) 10:09: mouth of 112 MCG 27 daily. Medicin tablet e olanzapine Yes 5mg Take 5 mg [facility] (ZYPREXA) 5 1-28 by mouth Shanel ege MG tablet 10:09: nightly. of 27 Medicin e Turmeric 0 Yes 1{sonia Take 1 [facility] Curcumin 1-28 t} Caplet by Lisag e 500 MG CAPS 10:09: mouth See o f 27 Admin Medicin Instructio e ns. gabapentin 2021-0 Yes 300mg Take 300 [facility] (NEURONTIN) 1-20 mg by College 300 MG 11:03: mouth of capsule 14 daily. Medicin e atorvastati Yes 20mg Take 20 mg [facility] n (LIPITOR) 1-20 by mouth Shanel ege 20 MG 11:03: daily. of tablet 14 Medicin e levothyroxi Yes 112ug Take 112 [facility] ne 1-20 mcg by [facility] [place] (SYNTHROID) 11:03: mouth of 112 MCG 14 daily. Medicin tablet e olanzapine Yes 5mg Take 5 mg [facility] (ZYPREXA) 5 1-20 by mouth Shanel ege MG tablet 11:03: nightly. of 14 Medicin e Turmeric Yes 1{sonia Take 1 [facility] Curcumin 1-20 t} Caplet by Shwetha e 500 MG CAPS 11:03: mouth See o f 14 Admin Medicin Instructio e ns. atorvastati 2020-07 Yes TAKE 1 [facility] n (LIPITOR) 2-15 TABLET BY Col lege 80 MG 00:00: MOUTH of tablet 00 DAILY AT Medicin BEDTIME e atorvastati 2020-07 Yes [facility] n (LIPITOR) 2-15 College 80 MG 00:00: of tablet 00 Medicin e atorvastati 2020-07 [facility] (LIPITOR) 2-15 09-17 [facility] [place] 80 MG 00:00: 00:00 of tablet 00 :00 Medicin e olanzapine 2020-07 Yes 5 mg = 1 Mem oria 5 MG Oral 1-04 tab, PO, l Tablet 15:28: TID, 0 [facility] 00 Refill(s) olanzapine 2020-07 Yes 5 mg = 1 Mem oria 5 MG Oral 1-04 tab, PO, l Tablet 15:28: TID, 0 [facility] 00 Refill(s) olanzapine 2020-07 Yes 5 mg = 1 Mem oria 5 MG Oral 1-04 tab, PO, l Tablet 15:28: TID, 0 Aleksey 00 Refill(s) olanzapine 2020-07 Yes 5 mg = 1 Mem oria 5 MG Oral 1-04 tab, PO, l Tablet 15:28: TID, 0 [facility] 00 Refill(s) gabapentin 2020-07 Yes 400 mg = 1 M emoria 400 MG Oral 1-04 cap, PO, l Capsule 15:24: Bedtime, # Herm beto 00 90 cap, 1 Refill(s), Pharmacy: [facility] ST[facility] #[id number], 157.48, cm, 05/23/21 10:05:00 CDT, Height, 63.182, kg, 05/23/21 10:05:00 CDT, Weight gabapentin 2020-07 Yes 400 mg = 1 M emoria 400 MG Oral 1-04 cap, PO, l Capsule 15:24: Bedtime, # Herm beto 00 90 cap, 1 Refill(s), Pharmacy: [facility] ST[facility] #[id number], 157.48, cm, 05/23/21 10:05:00 CDT, Height, 63.182, kg, 05/23/21 10:05:00 CDT, Weight gabapentin 2020-07 Yes 400 mg = 1 M emoria 400 MG Oral 1-04 cap, PO, l Capsule 15:24: Bedtime, # Herm beto 00 90 cap, 1 Refill(s), Pharmacy: [facility] ST[facility] #[id number], 157.48, cm, 05/23/21 10:05:00 CDT, Height, 63.182, kg, 05/23/21 10:05:00 CDT, Weight gabapentin 2020-07 Yes 400 mg = 1 M emoria 400 MG Oral 1-04 cap, PO, l Capsule 15:24: Bedtime, # Herm beto 00 90 cap, 1 Refill(s), Pharmacy: [facility] STORE #[id number], 157.48, cm, 05/23/21 10:05:00 CDT, Height, 63.182, kg, 05/23/21 10:05:00 CDT, Weight docusate 2020-07 Yes TAKE 1 Hermel[facility] sodium 0-26 CAPSULE BY [facility] (COLACE) 00:00: MOUTH of 100 MG 00 DAILY Medicin capsule e omeprazole 2020-07 Yes TAKE 1 [facility] (PRILOSEC) 0-26 CAPSULE BY [facility] aguilar 40 MG 00:00: MOUTH of capsule 00 DAILY Medicin e polyethylen 2020-07 Yes MIX 17 [facility] e glycol 0-26 GRAMS INTO Colle ge (GLYCOLAX) 00:00: 8 [employer] of 17 GM/SCOOP 00 OF WATER Medi khushi powder OR JUICE e AND DRINK BY MOUTH EVERY OTHER DAY docusate 2020-07 Yes TAKE 1 [facility] sodium 0-26 CAPSULE BY College (COLACE) 00:00: [...] OTHER DAY docusate 2020-07 Yes TAKE 1 [facility] sodium 0-26 CAPSULE BY [facility] (COLACE) 00:00: MOUTH of 100 MG 00 DAILY Medicin capsule e docusate 2020-07 Yes TAKE 1 [facility] sodium 0-26 CAPSULE BY [facility] (COLACE) 00:00: MOUTH of 100 MG 00 [...] Medicin e polyethylen 2020-07- No MIX 17 Jay dayna e glycol 0-26 03-01 GRAMS INTO Shanel ege (GLYCOLAX) 00:00: 00:00 8 [employer] of 17 GM/SCOOP 00 :00 OF WATER Medi khushi powder OR JUICE e AND DRINK BY MOUTH EVERY OTHER DAY gabapentin 2020-07 Yes 300mg Take 300 [facility] (NEURONTIN) 0-19 mg by [facility] 300 MG 14:36: mouth of capsule 24 daily. Medicin e atorvastati 2020-07 Yes 20mg Take 20 mg [facility] n (LIPITOR) 0-19 by mouth Shanel ege 20 MG 14:36: daily. of tablet 24 Medicin e levothyroxi 2020-07 Yes 112ug Take 112 [facility] ne 0-19 mcg by [facility] (SYNTHROID) 14:36: mouth of 112 MCG 24 [...] 300 [facility] (NEURONTIN) 7-13 mg by [facility] [place] 300 MG 13:24: mouth of capsule 06 daily. Medicin e atorvastati Yes 20mg Take 20 mg [facility] n (LIPITOR) 7-13 by mouth Shanel ege 20 MG 13:24: daily. of tablet 06 Medicin e levothyroxi Yes 112ug Take 112 [facility] ne 7-13 mcg by [facility] (SYNTHROID) 13:24: mouth of 112 MCG 06 daily. Medicin tablet e olanzapine Yes 5mg Take 5 mg [facility] (ZYPREXA) 5 7-13 by mouth Shanel ege MG tablet 13:24: nightly. of 06 Medicin e clonazepam Yes 1{tbl} Take 1 Jay dayna (KLONOPIN) 7-13 Tablet by Shanel ege 0.5 MG 13:24: mouth at of tablet 06 bedtime. Medicin e Turmeric Yes 1{sonia Take 1 [facility] Curcumin 7-13 t} Caplet by Colleg e 500 MG CAPS 13:24: mouth See o f 06 Admin Medicin Instructio e ns. gabapentin Yes 300mg Take 300 [facility] (NEURONTIN) 7-13 mg by [facility] 300 MG 13:24: mouth of capsule 06 daily. Medicin e atorvastati Yes 20mg Take 20 mg [facility] n (LIPITOR) - by mouth Shanel [...] 2020-0 2020- No 5mg Take 5 mg [facility] m (LEXAPRO) 01-29 0713 by mouth Col lege 5 MG tablet 13:23: 00:00 daily. of 47 :00 Medicin e escitalopra 2020-0 2020- No 5mg Take 5 mg Hermelindo [...] escitalopra 0 Yes 20mg Take 20 mg [facility] m (LEXAPRO) 01-17 by mouth Shanel ege 20 MG 00:00: daily. of tablet 00 Medicin e escitalopra 0 Yes 20mg Take 20 mg [facility] m (LEXAPRO) - by mouth Shanel ege [...] of tablet 00 Medicin e baclofen 10 2020-0 Yes 10 mg = 1 M emoria mg oral 6-23 tab, PO, l tablet 14:58: Bedtime, # Bing nn 00 30 tab, 3 Refill(s), [id number], 157.48, cm, 01/09/21 9:30:00 CDT, Height, 61.818, kg, 01/09/21 9:30:00 CDT, Weight baclofen 10 2020-0 Yes 10 mg = 1 M emoria mg oral 6-23 tab, PO, l tablet 14:58: Bedtime, # Bing nn 00 30 tab, 3 Refill(s), [id number], 157.48, cm, 01/09/21 9:30:00 CDT, Height, 61.818, kg, 01/09/21 9:30:00 CDT, Weight baclofen 10 2020-0 Yes 10 mg = 1 M emoria mg oral 6-23 tab, PO, l tablet 14:58: Bedtime, # Bing nn 00 30 tab, 3 Refill(s), [id number], 157.48, cm, 01/09/21 9:30:00 CDT, Height, 61.818, kg, 01/09/21 9:30:00 CDT, Weight baclofen 10 2020-0 Yes 10 mg = 1 M emoria mg oral 6-23 tab, PO, l tablet 14:58: Bedtime, # Bing nn 00 30 tab, 3 Refill(s), [id number], 157.48, cm, 01/09/21 9:30:00 CDT, Height, 61.818, kg, 01/09/21 9:30:00 CDT, Weight baclofen 2020-0 Yes 10mg Take 10 mg Jay dayna (LIORESAL) 01-09 by mouth Colle ge 10 MG 00:00: at of tablet 00 bedtime. Medicin e baclofen 2020-0 2021- No 10mg Take 10 mg [facility] (LIORESAL) 6-23 10-19 by mouth Shanel ege 10 MG 00:00: 00:00 at of tablet 00 :00 bedtime. Medicin e gabapentin Yes 300mg Take 300 [facility] (NEURONTIN) 6- mg by [facility] 300 MG 15:26: mouth of capsule 27 daily. Medicin e atorvastati Yes 20mg Take 20 mg [facility] n (LIPITOR) 6- by mouth Shanel ege 20 MG 15:26: daily. of tablet 27 Medicin e escitalopra Yes 5mg Take 5 mg [facility] m (LEXAPRO) 6- by mouth Shanel ege 5 MG tablet 15:26: daily. of 27 Medicin e levothyroxi Yes 112ug Take 112 [facility] ne 6- mcg by [facility] (SYNTHROID) 15:26: mouth of 112 MCG 27 daily. Medicin tablet e olanzapine Yes 5mg Take 5 mg [facility] (ZYPREXA) 5 6- by mouth Shanel ege MG tablet 15:26: nightly. of 27 Medicin e trospium Yes [id number] 20mg Take 1 [facility] (SANCTURA) 6- Tablet by Shanel ege 20 MG 00:00: mouth 3 of tablet 00 times Medicin daily e (before meals). trospium 0 Yes [id number] 20mg Take 1 [facility] (SANCTURA) 6- Tablet by Shanel ege 20 MG 00:00: mouth 3 of tablet 00 times Medicin daily e (before meals). trospium 0 Yes [id number] 20mg Take 1 [facility] (SANCTURA) 6- Tablet by Shanel ege 20 MG 00:00: mouth 3 of tablet 00 times Medicin daily e (before meals). trospium 0 Yes [id number] 20mg Take 1 [facility] (SANCTURA) 6- Tablet by Shanel ege 20 MG 00:00: mouth 3 of tablet 00 times Medicin daily e (before meals). trospium Yes [id number] 20mg Take 1 [facility] (SANCTURA) 6- Tablet by Shanel ege 20 MG 00:00: mouth 3 of tablet 00 times Medicin daily e (before meals). trospium Yes [id number] 20mg Take 1 [facility] (SANCTURA) 6- Tablet by Shanel ege 20 MG 00:00: mouth 3 of tablet 00 times Medicin daily e (before meals). trospium Yes [id number] 20mg Take 1 [facility] (SANCTURA) 6- Tablet by Shanel ege 20 MG 00:00: mouth 3 of tablet 00 times Medicin daily e (before meals). gabapentin Yes 300mg Take 300 [facility] (NEURONTIN) 4-29 mg by [facility] 300 MG 16:09: mouth of capsule 13 daily. Medicin e atorvastati Yes 20mg Take 20 mg [facility] n (LIPITOR) 4-29 by mouth Shanel ege 20 MG 16:09: daily. of tablet 13 Medicin e escitalopra Yes 5mg Take 5 mg [facility] (LEXAPRO) 4-29 by mouth Shanel ege 5 MG tablet 16:09: daily. of 13 Medicin e levothyroxi Yes 112ug Take 112 [facility] ne 4-29 mcg by [facility] (SYNTHROID) 16:09: mouth of 112 MCG 13 daily. Medicin tablet e olanzapine Yes 5mg Take 5 mg [facility] (ZYPREXA) 5 4-29 by mouth Shanel ege MG tablet 16:09: nightly. of 13 Medicin e trospium 0 2020- No [id number] 20mg Take 1 [facility] (SANCTURA) 4-29 06- Tablet by [facility] 20 MG 00:00: 00:00 mouth 3 of tablet 00 :00 times Medicin daily e (before meals). BISACODYL 5 Yes 1{tbl} Take 1 [facility] MG EC 4-21 Tablet by [facility] tablet 00:00: mouth of 00 daily. Medicin e BISACODYL 5 2020-2020- No 1{tbl} Take 1 [facility] MG EC 4-21 10-19 Tablet by [facility] tablet 00:00: 00:00 mouth of 00 :00 daily. Medicin e olanzapine 0 Yes 5mg Take 5 mg [facility] (ZYPREXA) 5 4-09 by mouth Shanel ege MG tablet 16:47: nightly. of 51 Medicin e gabapentin 0 Yes 300mg Take 300 [facility] (NEURONTIN) 4-09 mg by [facility] 300 MG 16:46: mouth of capsule 06 daily. Medicin e atorvastati 0 Yes 20mg Take 20 mg [facility] n (LIPITOR) 4-09 by mouth Shanel ege 20 MG 16:46: daily. of tablet 06 Medicin e escitalopra 0 Yes 5mg Take 5 mg [facility] (LEXAPRO) 4-09 by mouth Shanel ege 5 MG tablet 16:46: daily. of 06 Medicin e levothyroxi Yes 112ug Take 112 [facility] ne 4-09 mcg by [facility] (SYNTHROID) 16:46: mouth of 112 MCG 06 daily. Medicin tablet e atorvastati Yes 20mg Take 20 mg [facility] n (LIPITOR) 3-18 by mouth Shan[facility] e[facility] 20 MG 15:40: daily. of tablet 34 Medicin e escitalopra 0 Yes 5mg Take 5 mg [facility] (LEXAPRO) 3-18 by mouth Shanel ege 5 MG tablet 15:40: daily. of 34 Medicin e levothyroxi Yes 112ug Take 112 [facility] ne 3-18 mcg by [facility] (SYNTHROID) 15:40: mouth of 112 MCG 34 daily. Medicin tablet e gabapentin 0 Yes 300mg Take 300 [facility] (NEURONTIN) 3-18 mg by [facility] 300 MG 15:40: mouth of capsule 34 daily. Medicin e atorvastati 0 Yes 20mg Take 20 mg [facility] n (LIPITOR) 3-18 by mouth Shanel ege 20 MG 15:40: daily. of tablet 34 Medicin e escitalopra 2020-0 Yes 5mg Take 5 mg [facility] (LEXAPRO) 3-18 by mouth Shanel ege 5 MG tablet 15:40: daily. of 34 Medicin e levothyroxi 0 Yes 112ug Take 112 [facility] ne 3-18 mcg by [facility] (SYNTHROID) 15:40: mouth of 112 MCG 34 daily. Medicin tablet e gabapentin 2020-0 Yes 300mg Take 300 [facility] (NEURONTIN) 3-18 mg by [facility] 300 MG 15:40: mouth of capsule 34 daily. Medicin e gabapentin 0 Yes 300mg Take 300 [facility] (NEURONTIN) 2-19 mg by [facility] 300 MG 21:01: mouth of capsule 41 daily. Medicin e atorvastati 0 Yes 20mg Take 20 mg [facility] n (LIPITOR) 2-19 by mouth Shanel ege 20 MG 21:01: daily. of tablet 41 Medicin e escitalopra 0 Yes 5mg Take 5 mg [facility] (LEXAPRO) 2-19 by mouth Shanel ege 5 MG tablet 21:01: daily. of 41 Medicin e levothyroxi 0 Yes 112ug Take 112 [facility] ne 2-19 mcg by [facility] (SYNTHROID) 21:01: mouth of 112 MCG 41 daily. Medicin tablet e FAMOTIDINE 2020- No 400mg Take 400 [facility] OR 2-19 02-19 mg by [facility] 21:01: 00:00 mouth of 29 :00 daily. Medicin e trospium 2020-0 Yes [id number] 20mg Take 1 [facility] (SANCTURA) 2-19 Tablet by Shanel ege 20 MG 00:00: mouth 3 of tablet 00 times Medicin daily e (before meals). trospium 2020-0 Yes [id number] 20mg Take 1 [facility] (SANCTURA) 2-19 Tablet by Shanel ege 20 MG 00:00: mouth 3 of tablet 00 times Medicin daily e (before meals). trospium 2020-0 Yes [id number] 20mg Take 1 [facility] (SANCTURA) 2-19 Tablet by Shanel ege 20 MG 00:00: mouth 3 of tablet 00 times Medicin daily e (before meals). trospium 2020-0 Yes [id number] 20mg Take 1 [facility] (SANCTURA) 2-19 Tablet by Shanel ege 20 MG 00:00: mouth 3 of tablet 00 times Medicin daily e (before meals). gabapentin 2020-0 Yes 600 mg = 2 M [facility] 300 MG Oral 2-17 cap, PO, l Capsule 19:42: Bedtime, # Herm beto 00 180 cap, 2 Refill(s), Pharmacy: [facility] STORE #[id number], 160.02, cm, 09/05/20 13:20:00 [employer], Height, 59.545, kg, 09/05/20 13:20:00 [employer], Weight gabapentin 2020-0 Yes 600 mg = 2 M emoria 300 MG Oral 2-17 cap, PO, l Capsule 19:42: Bedtime, # Herm beto 00 180 cap, 2 Refill(s), Pharmacy: [facility] STORE #[id number], 160.02, cm, 09/05/20 13:20:00 [employer]IOR [employer]ANT, Height, 59.545, kg, 09/05/20 13:20:00 [employer]IOR [employer]ANT, Weight gabapentin 2020- Yes 600 mg = 2 M emoria 300 MG Oral 2-17 cap, PO, l Capsule 19:42: Bedtime, # Herm beto 00 180 cap, 2 Refill(s), Pharmacy: 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 STORE #[id number], 160.02, cm, 09/05/20 13:20:00 [employer]IOR [employer]ANT, Height, 59.545, kg, 09/05/20 13:20:00 S[employer]IOR [employer] CON[employer]ANT, Weight trospium 2020-2021- No [id number] 20mg Take 1 [facility] (SANCTURA) 08-14 Tablet by lege 20 MG 00:00: 05:59 mouth 2 of tablet 00 :00 times Medicin daily e (before meals) for 360 days. amoxicillin 2020-2020- No [id number] 1{tbl} Take 1 Hermelindo -clavulanat 109-07 Tablet by Co llege e 00:00: 00:00 mouth two of (AUGMENTIN) 00 :00 times Medicin 875-125 MG daily. e per tablet gabapentin Yes 300mg Take 300 [facility] (NEURONTIN) 1-14 mg by [facility] 300 MG 16:03: mouth of capsule 32 daily. Medicin e atorvastati Yes 20mg Take 20 mg [facility] n (LIPITOR) 1-14 by mouth Shanel ege 20 MG 16:03: daily. of tablet 32 Medicin e FAMOTIDINE Yes 400mg Take 400 [facility] OR 1-14 mg by [facility] 16:03: mouth of 32 daily. Medicin e escitalopra Yes 5mg Take 5 mg [facility] (LEXAPRO) -14 by mouth Shanel ege 5 MG tablet 16:03: daily. of 32 Medicin e levothyroxi Yes 112ug Take 112 [facility] ne 1-14 mcg by [facility] (SYNTHROID) 16:03: mouth of 112 MCG 32 daily. Medicin tablet e Ascorbic 2020- No Take by [facility] r Acid 07-27 mouth [facility] (VITAMIN C) 17:43: 00:00 daily. of 500 [...] BIOTIN 5000 2020- No Take by Zachariah shoemakeror OR 07-27 mouth College 17:43: 00:00 daily. of 20 :00 Medicin e Calcium 2020- No Take by [facility] Citrate-Vit 07-27 mouth two Co [facility] oliver D 17:43: 00:00 times of (CALCIUM 17 :00 daily. Medicin CITRATE + D e OR) L-THEANINE 2020- No 200mg Take 200 [facility] OR 07-27 mg by [facility] 17:43: 00:00 mouth of 11 :00 daily. Medicin e Lactobacill 2020- No Take by Zachariah moralez 07-27 mouth [facility] (PROBIOTIC 17:43: 00:00 daily. of ACIDOPHILUS 08 :00 Medicin OR) e levothyroxi 2020- No 125ug Take 125 [facility] ne 07-27 mcg by [facility] (SYNTHROID) 17:43: 00:00 mouth of 125 MCG 02 :00 daily. Medicin tablet e Lidocaine 2020- No Apply [facility] 0.5 % GEL 07-27 topically. Col lege 17:42: 00:00 of 59 :00 Medicin e Magnesium 2020- No Take by [facility] or 400 MG TABS 07-27 mouth. Colle ge 17:42: 00:00 of 47 :00 Medicin e Multiple 2020- No Take by [facility] r Vitamins-Mi 07-27 mouth Colleg e nerals 17:42: 00:00 daily. of (MULTIVITAM 40 :00 Medicin IN ADULT e OR) Percy-3 2020- No Take by [facility] Fatty Acids 07-27 mouth Colleg e (FISH OIL) 17:42: 00:00 daily. of 1200 MG 34 :00 Medicin CAPS e gabapentin Yes 300mg Take 300 [facility] (NEURONTIN) 1-08 mg by [facility] 300 MG 17:41: mouth of capsule 02 daily. Medicin e atorvastati Yes 20mg Take 20 mg [facility] n (LIPITOR) 07-27 by mouth Shanel ege 20 MG 17:41: daily. of tablet 02 Medicin e FAMOTIDINE Yes 400mg Take 400 [facility] OR 1-08 mg by [facility] 17:41: mouth of 02 daily. Medicin e lorazepam Yes 1mg Take 1 mg Jay [facility]na (ATIVAN) 1 07-26 by mouth Colle ge MG tablet 00:00: daily. of Medicin e lorazepam 2020-0 Yes 1mg Take 1 mg [facility] (ATIVAN) 1 1-07 by mouth Colle [facility] MG tablet 00:00: daily. of Medicin e lorazepam 2020-0 Yes 1mg Take 1 mg [facility] (ATIVAN) 1 1-07 by mouth Colle [facility] MG tablet 00:00: daily. of Medicin e lorazepam 2020-0 Yes 1mg Take 1 mg [facility] (ATIVAN) 1 1-07 by mouth Colle [facility] MG tablet 00:00: daily. of Medicin e lorazepam 2020-0 Yes 1mg Take 1 mg [facility] (ATIVAN) 1 1-07 by mouth Colle ge MG tablet 00:00: daily. of Medicin e lorazepam 2020-0 Yes 1mg Take 1 mg [facility] (ATIVAN) 1 1-07 by mouth Colle ge MG tablet 00:00: daily. of Medicin e lorazepam 2020-0 Yes 1mg Take 1 mg [facility] (ATIVAN) 1 1-07 by mouth Colle ge MG tablet 00:00: daily. of Medicin e lorazepam 2020-0 Yes 1mg Take 1 mg [facility] (ATIVAN) 1 1-07 by mouth Colle ge MG tablet 00:00: daily. of Medicin e lorazepam 2020-0 Yes 1mg Take 1 mg [facility] (ATIVAN) 1 1-07 by mouth Colle ge MG tablet 00:00: daily. of Medicin e lorazepam 2020-0 Yes 1mg Take 1 mg [facility]na (ATIVAN) 1 1-07 by mouth Colle ge MG tablet 00:00: daily. of Medicin e lorazepam 2020-0 Yes 1mg Take 1 mg [facility] (ATIVAN) 1 1-07 by mouth Colle ge MG tablet 00:00: daily. of Medicin e lorazepam 2020-0 Yes 1mg Take 1 mg [facility] (ATIVAN) 1 1-07 by mouth Colle ge MG tablet 00:00: daily. of Medicin e lorazepam 2020-0 Yes 1mg Take 1 mg [facility] day[facility] (ATIVAN) 1 1-07 by mouth Colle ge MG tablet 00:00: daily. of Medicin e lorazepam 2020-0 Yes 1mg Take 1 mg [facility] (ATIVAN) 1 1-07 by mouth Colle ge MG tablet 00:00: daily. of Medicin e lorazepam Yes 1mg Take 1 mg [facility] (ATIVAN) 1 1-07 by mouth Colle ge MG tablet 00:00: daily. of Medicin e lorazepam Yes 1mg Take 1 mg [facility] (ATIVAN) 1 1-07 by mouth Colle ge MG tablet 00:00: daily. of Medicin e lorazepam Yes 1mg Take 1 mg [facility] (ATIVAN) 1 1-07 by mouth Colle ge MG tablet 00:00: daily. of Medicin e triamterene 2019-07 Yes 1{capsu Take 1 U nivers -hydrochlor 2-07 le} capsule by it y of othiazide 20:27: mouth. [place] 37.5-25 mg Medical per capsule Branch b complex 2019-07 Yes 1{capsu Take 1 Uni vers vitamins 2-07 le} capsule by ity o f capsule 20:27: mouth. [address] Branch MAGNESIUM 2019-07 Yes Take by Unive rs GLYCINATE 2-07 mouth. ity of ORAL 20:27: [address] TURMERIC 2019-07 Yes Take by Univer s ORAL 2-07 mouth. ity of 20:27: [place] [address] Medical Branch ascorbic 2019-07 Yes 500mg Take 500 Univ ers acid, 2-07 mg by ity of vitamin C, 20:27: mouth. [place] [address] [place] [address] Branch atorvastati 2019-07 Yes 20mg Take 20 mg Univers n 20 mg 2-07 by mouth. ity of tablet 20:27: [address] Branch baclofen 10 2019-07 Yes 10mg Take 10 mg Univers mg tablet 2-07 by mouth. ity o f 20:27: [place] [address] Medical Branch Biotin 2019-07 Yes Take by Univers 2,500 mcg 2-07 mouth. ity of Cap 20:27: [address] Branch calcium 2019-07 Yes 1{tbl} Take 1 Univer s citrate-vit 2-07 tablet by ity of [place] D3 315 20:27: [place]. [place] mg-5 mcg Medical (200 unit) Branch per tablet polycarboph 2019-07 Yes 625mg Take 625 U nivers [place] 625 mg 2-07 mg by ity of tablet 20:27: mouth. [place] [address] Medical Branch gabapentin 2019-07 Yes 300mg Take 300 Un landen 300 mg 2-07 mg by ity of capsule 20:27: mouth. [place] [address] Medical Branch hydrOXYzine 2019-07 Yes 50mg Take 50 mg Univers 25 mg 2-07 by mouth. ity of tablet 20:27: [address] Branch lactobacill 2019-07 Yes 1{capsu Take 1 U nivers us 2-07 le} capsule by ity of rhamnosus, 20:27: mouth. [place] GG, 10 Medical billion Branch cell capsule lamoTRIgine 2019-07 Yes 50mg Take 50 mg Univers 25 mg 2-07 by mouth. ity of tablet 20:27: [address] Branch levothyroxi 2019-07 Yes 125ug Take 125 U nivers ne 125 mcg 2-07 mcg by ity of tablet 20:27: mouth. [address] Branch multivitami 2019-07 Yes 1{capsu Take 1 U nivers n capsule 2-07 le} capsule by ity of 20:27: mouth. [address] Branch omega-3s-dh 2019-07 Yes Take by Uni vers a-epa-fish 2-07 mouth. ity of oil 120 20:27: [place] mg-180 mg- Medical 60 mg-1,200 Branch mg CpDR potassium 2019-07 Yes 10meq Take 10 Univ ers chloride 10 2-07 mEq by ity of mEq CR 20:27: mouth. [place] capsule Medical Branch triamterene 2019-07 Yes 1{capsu Take 1 U nivers -hydrochlor 2-07 le} capsule by it y of othiazide 20:27: mouth. [place] 37.5-25 mg Medical per capsule Branch b complex 2019-07 Yes 1{capsu Take 1 Uni vers vitamins 2-07 le} capsule by ity o f capsule 20:27: mouth. [place] [address] Medical Branch MAGNESIUM 2019-07 Yes Take by Unive rs GLYCINATE 2-07 mouth. ity of ORAL 20:27: [address] Branch TURMERIC 2019-07 Yes Take by Univer s ORAL 2-07 mouth. ity of 20:27: [address] Branch ascorbic 2019- Yes 500mg Take 500 Univ ers acid, 2-07 mg by ity of vitamin C, 20:27: mouth. [place] 500 mg Medical tablet Branch atorvastati 2020-1 Yes 20mg Take 20 mg Univers n 20 mg 2-07 by mouth. ity of tablet 20:27: [address] baclofen 10 2019-07 Yes 10mg Take 10 mg Univers mg tablet 2-07 by mouth. ity o f 20:27: [address] Biotin 2019-07 Yes Take by Univers 2,500 mcg 2-07 mouth. ity of Cap 20:27: [address] calcium 2019-07 Yes 1{tbl} Take 1 Univer s citrate-vit 2-07 tablet by ity of [place] D3 315 20:27: [place]. [place] mg-[address] [place] [address] (200 unit) [place] per tablet polycarboph 2019-07 Yes 625mg Take 625 U nivers il 625 mg 2-07 mg by ity of tablet 20:27: mouth. [address] gabapentin 2019-07 Yes 300mg Take 300 Un landen 300 mg 2-07 mg by ity of capsule 20:27: mouth. [address] hydrOXYzine 2019-07 Yes 50mg Take 50 mg Univers 25 mg 2-07 by mouth. ity of tablet 20:27: [address] lactobacill 2019-07 Yes 1{capsu Take 1 U nivers us 2-07 le} capsule by ity of rhamnosus, 20:27: mouth. [place] GG, [address] [place] [address] billion Branch cell capsule lamoTRIgine 2019-07 Yes 50mg Take 50 mg Univers 25 mg 2-07 by mouth. ity of tablet 20:27: [address] levothyroxi 2019-07 Yes 125ug Take 125 U nivers ne 125 mcg 2-07 mcg by ity of tablet 20:27: mouth. [address] multivitami 2019-07 Yes 1{capsu Take 1 U nivers n capsule 2-07 le} capsule by ity of 20:27: mouth. [address] omega-3s-dh 2019-07 Yes Take by Uni vers a-epa-fish 2-07 mouth. ity of oil 120 20:27: [place] mg-180 mg- Medical 60 mg-1,200 Branch mg CpDR potassium 2019-07 Yes 10meq Take 10 Univ ers chloride 10 2-07 mEq by ity of mEq CR 20:27: mouth. [address] triamterene 2019-07 Yes 1{capsu Take 1 U nivers -hydrochlor 2-07 le} capsule by it y of othiazide 20:27: mouth. [place] 37.5-25 mg Medical per capsule Branch b complex 2019-07 Yes 1{capsu Take 1 Uni vers vitamins 2-07 le} capsule by ity o f capsule 20:27: mouth. [address] Branch MAGNESIUM 2019-07 Yes Take by Unive rs GLYCINATE 2-07 mouth. ity of ORAL 20:27: [address] TURMERIC 2019-07 Yes Take by Univer s ORAL 2-07 mouth. ity of 20:27: [address] Branch ascorbic 2019-07 Yes 500mg Take 500 Univ ers acid, 2-07 mg by ity of vitamin C, 20:27: mouth. [place] 500 mg Medical tablet Branch MAGNESIUM 2019-07 Yes Take by Unive rs GLYCINATE 2-07 mouth. ity of ORAL 20:27: [address] atorvastati 2019-07 Yes 20mg Take 20 mg Univers n 20 mg 2-07 by mouth. ity of tablet 20:27: [address] baclofen 10 2019-07 Yes 10mg Take 10 mg Univers mg tablet 2-07 by mouth. ity o f 20:27: [address] Biotin 2019-07 Yes Take by Univers 2,500 mcg 2-07 mouth. ity of Cap 20:27: [address] calcium 2019-07 Yes 1{tbl} Take 1 Univer s citrate-vit 2-07 tablet by ity of oliver D3 315 20:27: [facility] (200 unit[facility] Branch per tablet polycarboph 2019-07 Yes 625mg Take 625 U nivers il 625 mg 2-07 mg by ity of tablet 20:27: mouth. [address] Branch gabapentin 2019-07 Yes 300mg Take 300 Un landen 300 mg 2-07 mg by ity of capsule 20:27: mouth. [address] TURMERIC 2019-07 Yes Take by Univer s ORAL 2-07 mouth. ity of 20:27: [address] hydrOXYzine 2019-07 Yes 50mg Take 50 mg Univers 25 mg 2-07 by mouth. ity of tablet 20:27: [address] lactobacill 2019-07 Yes 1{capsu Take 1 U nivers us 2-07 le} capsule by ity of rhamnosus, 20:27: mouth. [place] GG, 10 Medical billion Branch cell capsule lamoTRIgine 2019-07 Yes 50mg Take 50 mg Univers 25 mg 2-07 by mouth. ity of tablet 20:27: [place] [address] Medical Branch levothyroxi 2019-07 Yes 125ug Take 125 U nivers ne 125 mcg 2-07 mcg by ity of tablet 20:27: mouth. [place] [address] Medical Branch ascorbic 2019-07 Yes 500mg Take 500 Univ ers acid, 2-07 mg by ity of vitamin C, 20:27: mouth. [place] 500 mg Medical tablet Branch multivitami 2019-07 Yes 1{capsu Take 1 U nivers n capsule 2-07 le} capsule by ity of 20:27: mouth. [place] [address] Medical Branch omega-3s-dh 2019-07 Yes Take by Uni vers a-epa-fish 2-07 mouth. ity of oil 120 20:27: [place] mg-180 mg- Medical 60 mg-1,200 Branch mg CpDR potassium 2019-07 Yes 10meq Take 10 Univ ers chloride 10 2-07 mEq by ity of mEq CR 20:27: mouth. [place] capsule Medical Branch atorvastati 2019-07 Yes 20mg Take 20 mg Univers n 20 mg 2-07 by mouth. ity of tablet 20:27: [place] [address] Medical Branch triamterene 2019-07 Yes 1{capsu Take 1 U nivers -hydrochlor 2-07 le} capsule by it y of othiazide 20:27: mouth. [place] 37.5-25 mg Medical per capsule Branch b complex 2019-07 Yes 1{capsu Take 1 Uni vers vitamins 2-07 le} capsule by ity o f capsule 20:27: mouth. [place] [address] Medical Branch MAGNESIUM 2019-07 Yes Take by Unive rs GLYCINATE 2-07 mouth. ity of ORAL 20:27: [place] [address] Medical Branch TURMERIC 2019-07 Yes Take by Univer s ORAL 2-07 mouth. ity of 20:27: [place] [address] Medical Branch ascorbic 2019-07 Yes 500mg Take 500 Univ ers acid, 2-07 mg by ity of vitamin C, 20:27: mouth. [place] 500 mg Medical tablet Branch atorvastati 2019-07 Yes 20mg Take 20 mg Univers n 20 mg 2-07 by mouth. ity of tablet 20:27: [address] Branch baclofen 10 2019-07 Yes 10mg Take 10 mg Univers mg tablet 2-07 by mouth. ity o f 20:27: [address] Biotin 2019-07 Yes Take by Univers 2,500 mcg 2-07 mouth. ity of Cap 20:27: [address] calcium 2019-07 Yes 1{tbl} Take 1 Univer s citrate-vit 2-07 tablet by ity of [place] D3 315 20:27: [place]. [place] mg-[address] [place] [address] (200 unit) Branch per tablet polycarboph 2019-07 Yes 625mg Take 625 U nivers il 625 mg 2-07 mg by ity of tablet 20:27: mouth. [address] gabapentin 2019-07 Yes 300mg Take 300 Un landen 300 mg 2-07 mg by ity of capsule 20:27: mouth. [address] baclofen 10 2019-07 Yes 10mg Take 10 mg Univers mg tablet 2-07 by mouth. ity o f 20:27: [address] hydrOXYzine 2019-07 Yes 50mg Take 50 mg Univers 25 mg 2-07 by mouth. ity of tablet 20:27: [address] lactobacill 2019-07 Yes 1{capsu Take 1 U nivers us 2-07 le} capsule by ity of rhamnosus, 20:27: mouth. [place] GG, [address] [place] [address] Branch cell capsule lamoTRIgine 2019-07 Yes 50mg Take 50 mg Univers 25 mg 2-07 by mouth. ity of tablet 20:27: [address] levothyroxi 2019-07 Yes 125ug Take 125 U nivers ne 125 mcg 2-07 mcg by ity of tablet 20:27: mouth. [address] multivitami 2019-07 Yes 1{capsu Take 1 U nivers n capsule 2-07 le} capsule by ity of 20:27: mouth. [address] omega-3s-dh 2019-07 Yes Take by Uni vers a-epa-fish 2-07 mouth. ity of oil 120 20:27: [place] [facility] Branch mg CpDR potassium 2019-07 Yes 10meq Take 10 Univ ers chloride 10 2-07 mEq by ity of mEq CR 20:27: mouth. [address] Biotin 2019-07 Yes Take by Univers 2,500 mcg 2-07 mouth. ity of Cap 20:27: [address] Branch triamterene 2019-07 Yes 1{capsu Take 1 U nivers -hydrochlor 2-07 le} capsule by it y of othiazide 20:27: mouth. [place] 37.5-25 mg Medical per capsule Branch b complex 2019-07 Yes 1{capsu Take 1 Uni vers vitamins 2-07 le} capsule by ity o f capsule 20:27: mouth. [address] calcium 2019-07 Yes 1{tbl} Take 1 Univer s citrate-vit 2-07 tablet by ity of [place] D3 315 20:27: mouth. [place] mg-5 mcg Medical (200 unit) Branch per tablet polycarboph 2019-07 Yes 625mg Take 625 U nivers il 625 mg 2-07 mg by ity of tablet 20:27: mouth. [address] gabapentin 2019-07 Yes 300mg Take 300 Un landen 300 mg 2-07 mg by ity of capsule 20:27: mouth. [address] Branch hydrOXYzine 2019-07 Yes 50mg Take 50 mg Univers 25 mg 2-07 by mouth. ity of tablet 20:27: [address] lactobacill 2019-07 Yes 1{capsu Take 1 U nivers us 2-07 le} capsule by ity of rhamnosus, 20:27: mouth. [place] GG, [address] [place] [address] billion Branch cell capsule lamoTRIgine 2019-07 Yes 50mg Take 50 mg Univers 25 mg 2-07 by mouth. ity of tablet 20:27: [address] levothyroxi 2019-07 Yes 125ug Take 125 U nivers ne 125 mcg 2-07 mcg by ity of tablet 20:27: mouth. [address] multivitami 2019-07 Yes 1{capsu Take 1 U nivers n capsule 2-07 le} capsule by ity of 20:27: mouth. [address] omega-3s-dh 2019-07 Yes Take by Uni vers a-epa-fish 2-07 mouth. ity of oil 120 20:27: [place] mg-180 mg- Medical 60 mg-1,200 Branch mg CpDR potassium 2019-07 Yes 10meq Take 10 Univ ers chloride 10 2-07 mEq by ity of mEq CR 20:27: mouth. [address] triamterene 2019-07 Yes 1{capsu Take 1 U nivers -hydrochlor 2-07 le} capsule by it y of othiazide 20:27: mouth. [place] 37.5-25 mg Medical per capsule Branch b complex 2019-07 Yes 1{capsu Take 1 Uni vers vitamins 2-07 le} capsule by ity o f capsule 20:27: mouth. [place] [address] Medical Branch MAGNESIUM 2019-07 Yes Take by Unive rs GLYCINATE 2-07 mouth. ity of ORAL 20:27: [address] Branch TURMERIC 2019-07 Yes Take by Univer s ORAL 2-07 mouth. ity of 20:27: [place] [address] Medical Branch ascorbic 2019-07 Yes 500mg Take 500 Univ ers acid, 2-07 mg by ity of vitamin C, 20:27: mouth. [place] 500 mg Medical tablet Branch atorvastati 2019-07 Yes 20mg Take 20 mg Univers n 20 mg 2-07 by mouth. ity of tablet 20:27: [address] Branch baclofen 10 2019-07 Yes 10mg Take 10 mg Univers mg tablet 2-07 by mouth. ity o f 20:27: [address] Branch Biotin 2019-07 Yes Take by Univers 2,500 mcg 2-07 mouth. ity of Cap 20:27: [address] Branch calcium 2019-07 Yes 1{tbl} Take 1 Univer s citrate-vit 2-07 tablet by ity of [place] D3 315 20:27: [place]. [place] mg-5 mcg Medical (200 unit) Branch per tablet polycarboph 2019-07 Yes 625mg Take 625 U nivers [place] 625 mg 2-07 mg by ity of tablet 20:27: mouth. [place] [address] [facility] gabapentin 2019-07 Yes 300mg Take 300 Un landen 300 mg 2-07 mg by ity of capsule 20:27: mouth. [place] [address] [facility] hydrOXYzine 2019-07 Yes 50mg Take 50 mg [facility] 25 mg 2-07 by mouth. ity of tablet 20:27: [address] Branch lactobacill 2019-07 Yes 1{capsu Take 1 U nivers us 2-07 le} capsule by ity of rhamnosus, 20:27: mouth. [place] GG, [address] [facility] [address] Branch cell capsule lamoTRIgine 2019-07 Yes 50mg Take 50 mg [facility] 25 mg 2-07 by mouth. ity of tablet 20:27: [place] [facility] levothyroxi 2020- Yes 125ug Take 125 U nivers ne 125 mcg 2-07 mcg by ity of tablet 20:27: mouth. [address] multivitami 2020- Yes 1{capsu Take 1 U nivers n capsule 2-07 le} capsule by ity of 20:27: mouth. [address] Branch omega-3s-dh 2019- Yes Take by Uni vers a-epa-fish 2-07 mouth. ity of oil 120 20:27: [place] mg-180 mg- Medical 60 mg-1,200 [place] mg CpDR potassium 2019- Yes 10meq Take 10 Univ ers chloride 10 2-07 mEq by ity of mEq CR 20:27: mouth. [address] Turmeric 2019-07 Yes Take by [facility] 500 MG CAPS 2-07 mouth. Colleg e 00:00: of 00 Medicin e Turmeric 2019-07 Yes Take by [facility] 500 MG CAPS 2-07 mouth. Colleg e 00:00: of 00 Medicin e Turmeric 2020- Yes Take by [facility] 500 MG CAPS 2-07 mouth. Colleg e 00:00: of 00 Medicin e Turmeric 2019- Yes Take by [facility] 500 MG CAPS 2-07 mouth. Colleg e 00:00: of 00 Medicin e Turmeric 2020- Yes Take by [facility] 500 MG CAPS 2-07 mouth. Colleg e 00:00: of 00 Medicin e Turmeric 2019- Yes Take by [facility] 500 MG CAPS 2-07 mouth. Colleg e 00:00: of 00 Medicin e gabapentin 2020- Yes TK 1 C PO Un landen 100 mg 2-04 IN THE ity of capsule 00:00: MORNING [place] 00 AND AT [facility] gabapentin 2020- Yes TK 1 C PO Un landen 100 mg 2-04 IN THE ity of capsule 00:00: MORNING 00 AND AT [facility] gabapentin 2020- Yes TK 1 C PO Un landen 100 mg 2-04 IN THE ity of capsule 00:00: MORNING [place] 00 AND AT [facility] gabapentin 2020- Yes TK 1 C PO Un landen 100 mg 2-04 IN THE ity of capsule 00:00: MORNING [place] 00 AND AT [facility] gabapentin 2020 Yes TK 1 C PO Un landen 100 mg 2-04 IN THE ity of capsule 00:00: MORNING [place] AND AT [facility] gabapentin 2019-07 Yes TK 1 C PO Un landen 100 mg 2-04 IN THE ity of capsule 00:00: MORNING [place] AND AT [facility] gabapentin 2019-07 Yes = 1 cap, Mem oria 300 MG Oral 2-03 PO, l Capsule 20:46: Bedtime, # Herm beto 00 30 cap, 6 Refill(s), Pharmacy: [facility] #[id number], 157.48, cm, 06/21/20 13:55:00 [employer], Height, 62.727, kg, 06/21/20 14:10:00 [employer], Weight baclofen 10 2019-07 Yes = 1 tab, Me moria mg oral 2-03 PO, l tablet 20:46: Bedtime, # Bing nn 00 30 tab, 4 Refill(s), Pharmacy: [facility] #[id number], 157.48, cm, 06/21/20 13:55:00 [employer], Height, 62.727, kg, 06/21/20 14:10:00 [employer]IOR [employer]ANT, Weight gabapentin 2019-07 Yes = 1 cap, Mem oria 300 MG Oral 2-03 PO, l Capsule 20:46: Bedtime, # Herm beto 00 30 cap, 6 Refill(s), Pharmacy: [facility] #[id number], 157.48, cm, 06/21/20 13:55:00 [employer]IOR [employer], Height, 62.727, kg, 06/21/20 14:10:00 [employer]IOR [employer]ANT, Weight baclofen 10 2019-07 Yes = 1 tab, Me moria mg oral 2-03 PO, l tablet 20:46: Bedtime, # Bing nn 00 30 tab, 4 Refill(s), Pharmacy: [facility] #[id number], 157.48, cm, 06/21/20 13:55:00 [employer]IOR [employer], Height, 62.727, kg, 06/21/20 14:10:00 [employer]IOR [employer] CON[employer]ANT, Weight gabapentin 2019-07 Yes = 1 cap, Mem oria 300 MG Oral 2-03 PO, l Capsule 20:46: Bedtime, # Herm beto 00 30 cap, 6 Refill(s), Pharmacy: [facility] #[id number], 157.48, cm, 06/21/20 13:55:00 [employer]IOR [employer] 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, Height, 62.727, kg, 06/21/20 14:10:00 [employer]IOR [employer] CONSULTANT, Weight baclofen 10 2019-07 Yes = 1 tab, Me moria mg oral 2-03 PO, l tablet 20:46: Bedtime, # Bing nn 00 30 tab, 4 Refill(s), [id number], 157.48, cm, 06/21/20 13:55:00 [employer]IOR [employer]ANT, Height, 62.727, kg, 06/21/20 14:10:00 S[employer]IOR [employer] CONSULTANT, Weight gabapentin 2019-07 Yes = 1 cap, Mem oria 300 MG Oral 2-03 PO, l Capsule 20:46: Bedtime, # Herm beto 00 30 cap, 6 Refill(s), [id number], 157.48, cm, 06/21/20 13:55:00 [employer]IOR [employer] CONSULTANT, Height, 62.727, kg, 06/21/20 14:10:00 [employer]IOR [employer] CONSULTANT, Weight baclofen 2019-07 Yes = 1 tab, Me moria mg oral 2-03 PO, l tablet 20:46: Bedtime, # Bing nn 00 30 tab, 4 Refill(s), [id number], 157.48, cm, 06/21/20 13:55:00 S[employer]IOR [employer] CONSULTANT, Height, 62.727, kg, 06/21/20 14:10:00 [employer]IOR [employer] CONSULTANT, Weight spironolact 2019-07 Yes TK 1 T PO U nivers one 25 mg 2-03 BID ity of tablet 00:00: [address] Branch spironolact 2019- Yes TK 1 T PO U nivers one 25 mg 2-03 BID ity of tablet 00:00: [address] Branch spironolact 2019- Yes TK 1 T PO U nivers one 25 mg 2-03 BID ity of tablet 00:00: [address] spironolact 2019- Yes TK 1 T PO U nivers one 25 mg 2-03 BID ity of tablet 00:00: [address] spironolact 2019- Yes TK 1 T PO U nivers one 25 mg 2-03 BID ity of tablet 00:00: [place] [facility] spironolact 2019-07 Yes TK 1 T PO U nivers one 25 mg 2-03 BID ity of tablet 00:00: [place] [facility] baclofen 10 2019-07 Yes TK 1 T PO U nivers mg tablet 1-24 BID ity of 00:00: [place] [facility] baclofen 10 2019-07 Yes TK 1 T PO U nivers mg tablet 1-24 BID ity of 00:00: [place] [facility] baclofen 10 2019-07 Yes TK 1 T PO U nivers mg tablet 1-24 BID ity of 00:00: [place] [facility] baclofen 10 2019-07 Yes TK 1 T PO U nivers mg tablet 1-24 BID ity of 00:: [place] [facility] baclofen 10 2019-07 Yes TK 1 T PO U nivers mg tablet 1-24 BID ity of 00:00: [place] [facility] baclofen 10 2019-07 Yes TK 1 T PO U nivers mg tablet 1-24 BID ity of 00:00: [place] [facility] famotidine 2019-07 Yes TK 1 T PO Un landen 40 mg 1-23 D HS ity of tablet 00:00: [place] [facility] famotidine 2019-07 Yes TK 1 T PO Un landen 40 mg 1-23 D HS ity of tablet 00:00: [place] [facility] famotidine 2019-07 Yes TK 1 T PO Un landen 40 mg 1-23 D HS ity of tablet 00:00: [place] [facility] famotidine 2019-07 Yes TK 1 T PO Un landen 40 mg 1-23 D HS ity of tablet 00:00: [place] [facility] famotidine 2019-07 Yes TK 1 T PO Un landen 40 mg 1-23 D HS ity of tablet 00:00: [place] [facility] famotidine 2019-07 Yes TK 1 T PO Un landen 40 mg 1-23 D HS ity of tablet 00:00: [place] [facility] levothyroxi 2019-07 Yes 125ug Take 125 B aylor ne 1-19 mcg by [place] (SYNTHROID) 14:29: mouth of 125 MCG 07 daily. Medicin tablet e gabapentin 2019-07 Yes 500mg Take 500 Ba ylor (NEURONTIN) 1-19 mg by [place] 300 MG 14:29: mouth of capsule 07 daily. Medicin e atorvastati 2019-07 Yes 20mg Take 20 mg [facility] n (LIPITOR) 08-07 by mouth [facility] 20 MG 14:29: daily. of tablet 07 Medicin e baclofen 2019-07 Yes 10mg Take 10 mg [facility] (LIORESAL) 08-07 by mouth Colle ge 10 MG 14:29: two times of tablet 07 daily. Medicin e Multiple 2019-07 Yes Take by [facility] Vitamins-Mi 08-07 mouth [place] nerals 14:29: daily. of (MULTIVITAM 07 Medicin IN ADULT e OR) B Complex 2019-07 Yes Take by [facility] Vitamins (B 08-07 mouth [place] COMPLEX 1 14:29: daily. of OR) 07 Medicin e Calcium 2019-07 Yes Take by [facility] Citrate-Vit 08-07 mouth two Col lege oliver D 14:29: times of (CALCIUM 07 daily. Medicin CITRATE + D e OR) Percy-3 2019-07 Yes Take by [facility] Fatty Acids 08-07 [facility] (FISH OIL) 14:29: daily. of 1200 MG 07 Medicin CAPS e Lactobacill 2019-07 Yes Take by [facility] us 08-07 mouth [place] (PROBIOTIC 14:29: daily. of ACIDOPHILUS Medicin OR) e BIOTIN 5000 2019-07 Yes Take by [facility] OR 08-07 [facility] 14:29: daily. of 07 Medicin e L-THEANINE 2019-07 Yes 200mg Take 200 Ba ylor OR 1-19 mg by [place] 14:29: mouth of 07 daily. Medicin e Ascorbic 2019-07 Yes Take by [facility] Acid 08-07 [facility] (VITAMIN C) 14:29: daily. of 500 MG CAPS 07 Medicin e Magnesium 2019-07 Yes Take by [facility] r 400 MG TABS 08-07 mouth. Colleg e 14:29: of 07 Medicin e Lidocaine 2019-07 Yes Apply [facility] 0.5 % GEL 08-07 topically. [facility] 14:29: of 07 Medicin e levothyroxi 2019-07 Yes 125ug Take 125 B aylor ne 1-19 mcg by [place] (SYNTHROID) 14:29: mouth of 125 MCG 07 daily. Medicin tablet e gabapentin 2019-07 Yes 500mg Take 500 Ba [facility] (NEURONTIN) 1-19 mg by [place] 300 MG 14:29: mouth of capsule 07 daily. Medicin e atorvastati 2019-07 Yes 20mg Take 20 mg [facility] n (LIPITOR) 08-07 by mouth [facility] 20 MG 14:29: daily. of tablet 07 Medicin e baclofen 2019-07 Yes 10mg Take 10 mg [facility] (LIORESAL) 08-07 by mouth Colle ge 10 MG 14:29: two times of tablet 07 daily. Medicin e Multiple 2019-07 Yes Take by [facility] Vitamins-Mi 08-07 mouth [place] nerals 14:29: daily. of (MULTIVITAM 07 Medicin IN ADULT e OR) B Complex 2020- Yes Take by [facility] Vitamins (B 08-07 mouth [place] COMPLEX 1 14:29: daily. of OR) 07 Medicin e Calcium 2019-07 Yes Take by [facility] Citrate-Vit 08-07 mouth two Col lege oliver D 14:29: times of (CALCIUM 07 daily. Medicin CITRATE + D e OR) Percy-3 2019-07 Yes Take by [facility] Fatty Acids 08-07 [facility] (FISH OIL) 14:29: daily. of 1200 MG 07 Medicin CAPS e Lactobacill 2019-07 Yes Take by [facility] us 08-07 mouth [place] (PROBIOTIC 14:29: daily. of ACIDOPHILUS Medicin OR) e BIOTIN 5000 2019-07 Yes Take by [facility] OR 08-07 mouth [place] 14:29: daily. of 07 Medicin e L-THEANINE 2019-07 Yes 200mg Take 200 Ba ylor OR 1-19 mg by College 14:29: mouth of 07 daily. Medicin e Ascorbic 2019-07 Yes Take by [facility] Acid 08-07 [facility] (VITAMIN C) 14:29: daily. of 500 MG CAPS 07 Medicin e Magnesium 2019-07 Yes Take by [facility] r 400 MG TABS 08-07 mouth. Colleg e 14:29: of 07 Medicin e Lidocaine 2019-07 Yes Apply [facility] 0.5 % GEL 08-07 topically. [facility] 14:29: of 07 Medicin e Turmeric 2019-07 2020- No Take by [facility] Curcumin -06-07 mouth. College 500 MG CAPS 14:29: 00:00 of 06 :00 Medicin e Calcium 2019-07 2020- No Take by [facility] Polycarboph -06-07 mouth 3 Shanel [facility] il 14:26: 00:00 times of (FIBER-CAPS 48 :00 daily. Medici n OR) e Calcium 2019-07 2020- No 625mg Take 625 [facility] Polycarboph 1-19 11-19 mg by Colleg e il (FIBER) 14:26: 00:00 mouth. of 625 MG TABS 38 :00 Medicin e ascorbic 2019-07 2020- No 500mg Take 500 Jay dayna acid 500 MG -19 11-19 mg [...] 2019-07 2020- No [facility] rilocaine 1-14 11-19 [place] ([facility]) 00:00: 00:00 of 2.5-2.5 % 00 [...] tablet 00:00: [place] [facility] risperiDONE 2020- Yes TK 1 T PO U nivers 0.25 mg 1-11 BID ity of tablet 00:00: [place] [facility] LORazepam 2020- Yes TK 1 T PO Uni vers 0.5 mg 1-11 TID PRN ity of tablet 00:00: FOR [place] ANXIETY Medical Branch risperiDONE 2020- Yes TK 1 T PO U nivers 0.25 mg 1-11 BID ity of tablet 00:00: [place] [facility] LORazepam 2020- Yes TK 1 T PO Uni vers 0.5 mg 1-11 TID PRN ity of tablet 00:00: FOR [place] ANXIETY Medical Branch risperiDONE 2020- Yes TK 1 T PO U nivers 0.25 mg 1-11 BID ity of tablet 00:00: [place] [facility] LORazepam 2019- Yes TK 1 T PO Uni vers 0.5 mg 1-11 TID PRN ity of tablet 00:00: FOR [place] ANXIETY Medical Branch risperiDONE 2020- Yes TK 1 T PO U nivers 0.25 mg 1-11 BID ity of tablet 00:00: [place] [facility] LORazepam 2019- Yes TK 1 T PO Uni vers 0.5 mg 1-11 TID PRN ity of tablet 00:00: FOR [place] ANXIETY Medical Branch atorvastati 2020- Yes TK 1 T PO U nivers n 20 mg 1-03 D HS ity of tablet 00:00: [place] [facility] atorvastati 2020- Yes TK 1 T PO U nivers n 20 mg 1-03 D HS ity of tablet 00:00: [place] [facility] atorvastati 2020- Yes TK 1 T PO U nivers n 20 mg 1-03 D HS ity of tablet 00:00: [place] [facility] atorvastati 2020- Yes TK 1 T PO U nivers n 20 mg 1-03 D HS ity of tablet 00:00: [place] [facility] atorvastati 2020- Yes TK 1 T PO U nivers n 20 mg 1-03 D HS ity of tablet 00:00: [place] [address] [facility] Branch atorvastati 2020- Yes TK 1 T PO U nivers n 20 mg 1-03 D HS ity of tablet 00:00: [place] [facility] ondansetron 2020- Yes [id number] 4mg Take 1 Tab [facility] (ZOFRAN) 4 1-02 by mouth Colle ge MG tablet 00:00: every 8 of 00 hours as Medicin needed for e Nausea. nitrofurant 2019-07 Yes TK ONE C Ba [facility]lor oin 1-02 PO BID College (MACRODANTI 00:00: of N) 100 MG 00 Medicin capsule e ondansetron 2019-07 Yes [id number] 4mg Take 1 Tab [facility] (ZOFRAN) 4 1-02 by mouth Colle ge MG tablet 00:00: every 8 of 00 hours as Medicin needed for e Nausea. ondansetron 2019-07 Yes [id number] 4mg Take 1 Tab [facility] (ZOFRAN) 4 1-02 by mouth Colle ge MG tablet 00:00: every 8 of 00 hours as Medicin needed for e Nausea. ondansetron 2019-07 Yes [id number] 4mg Take 1 Tab [facility] (ZOFRAN) 4 1-02 by mouth Colle ge MG tablet 00:00: every 8 of 00 hours as Medicin needed for e Nausea. nitrofurant 2019-07 Yes TK ONE C Un landen oin 100 mg 1-02 PO BID ity of capsule 00:00: [place] [facility] ondansetron 2019-07 Yes TK 1 T PO U nivers 4 mg tablet 1-02 Q 8 H PRF ity of 00:00: NAUSEA [facility] nitrofurant 2019-07 Yes TK ONE C Un landen oin 100 mg 1-02 PO BID ity of capsule 00:00: [place] [facility] ondansetron 2019-07 Yes TK 1 T PO U nivers 4 mg tablet 1-02 Q 8 H PRF ity of 00:00: NAUSEA [facility] nitrofurant 2019-07 Yes TK ONE C Un landen oin 100 mg 1-02 PO BID ity of capsule 00:00: [place] [facility] ondansetron 2019-07 Yes TK 1 T PO U nivers 4 mg tablet 1-02 Q 8 H PRF ity of 00:00: NAUSEA [facility] nitrofurant 2019-07 Yes TK ONE C Un landen oin 100 mg 1-02 PO BID ity of capsule 00:00: [place] [facility] ondansetron 2019-07 Yes TK 1 T PO [...] T PO U nivers 4 mg tablet 02 Q 8 H PRF ity of 00:00: NAUSEA [facility] Branch ondansetron 2019-07- No [id number] 4mg Take 1 Tab [facility] (ZOFRAN) 4 07-21 03-18 by mouth [facility]el [facility] MG tablet 00:00: 00:00 every 8 of 00 :00 hours as Medicin needed for e Nausea. nitrofurant 2019-07- No TK ONE C B aylor oin 07-21-08 PO BID College (MACRODANTI 00:00: 00:00 of N) 100 MG 00 :00 Medicin capsule e KLOR-CON 2019-07 Yes TK 1 Univer s mEq packet 0-30 PACKET PO ity of 00:00: QD FOR 7 00 DAYS. Medical Branch KLOR-CON 2019-07 Yes TK 1 Univer s mEq packet 0-30 PACKET PO ity of 00:00: QD FOR 7 [place] 00 DAYS. [facility] Branch KLOR-CON 2019-07 Yes TK 1 Univer s mEq packet 0-30 PACKET PO ity of 00:00: QD FOR 7 [place] 00 DAYS. Medical Branch KLOR-CON 2019-07 Yes TK 1 Univer s mEq packet 0-30 PACKET PO ity of 00:00: QD FOR 7 [place] 00 DAYS. Medical Branch KLOR-CON 2019-07 Yes TK 1 Univer s mEq packet 0-30 PACKET PO ity of 00:00: QD FOR 7 [place] 00 DAYS. [facility] Branch KLOR-CON 2019-07 Yes TK 1 Univer s mEq packet 0-30 PACKET PO ity of 00:00: QD FOR 7 [place] 00 DAYS. Medical Branch triamterene 2019-07 2020- No 1{capsu Take 1 Cap [facility] -hydrochlor 0-27 10-27 le} by mouth Col lege othiazide 19:49: 00:00 every of (DYAZIDE) 07 :00 morning. Medici n 37.5-25 MG e per capsule potassium 2019-07 2020- No 10meq Take 10 Jay [facility]na chloride 0-27 10-27 mEq by College (MICRO-K) 19:49: 00:00 mouth of 10 MEQ 07 :00 daily. Medicin capsule e lamoTRIgine 2019-07- No 50mg Take 50 mg [facility] 50 MG TBDP 0-27 10-27 by mouth Shanel [facility]ge 19:49: 00:00 two times of 07 :00 daily. Medicin e ciprofloxac 2019-07 Yes TK 1 T PO U nivers in HCl 250 0-25 BID ity of mg tablet 00:00: [address] ciprofloxac 2019-07 Yes TK 1 T PO U nivers in HCl 250 0-25 BID ity of mg tablet 00:00: [address] ciprofloxac 2019-07 Yes TK 1 T PO U nivers in HCl 250 0-25 BID ity of mg tablet 00:00: [address] ciprofloxac 2019-07 Yes TK 1 T PO U nivers in HCl 250 0-25 BID ity of mg tablet 00:00: [address] ciprofloxac 2019-07 Yes TK 1 T PO U nivers in HCl 250 0-25 BID ity of mg tablet 00:00: [address] ciprofloxac 2019-07 Yes TK 1 T PO U nivers in HCl 250 0-25 BID ity of mg tablet 00:00: [address] losartan 25 2019-07 Yes 25 mg [...] tab, PO, l tablet 19:15: Daily, 0 [facility] 00 Refill(s) Risperidone 2019-07 Yes 0.25 mg [...] 1 Ba ylor one 0-21 Tablet by [facility] (ALDACTONE) 00:00: mouth. 2 of 25 MG [...] 1 Tab [facility] one 0-21 by mouth [place] (ALDACTONE) 00:00: daily. of 25 MG 00 [...] s mg tablet 0-14 ity of 00:00: [place] [facility] LORazepam 1 2020- Yes Univer s mg tablet 0-14 ity of 00:00: [place] [facility] LORazepam 1 2020- Yes Univer s mg tablet 0-14 ity of 00:00: [place] [facility] LORazepam 1 2020-1 Yes Univer s mg tablet 0-14 ity of 00:00: [place] [facility] LORazepam 1 2020- Yes Univer s mg tablet 0-14 ity of 00:00: [place] [facility] LORazepam 1 2019- Yes Univer s mg tablet 0-14 ity of 00:00: [place] [facility] lorazepam 2019- 2020- No [facility] (ATIVAN) 1 0-14 11-19 College MG tablet 00:00: 00:00 of 00 :00 Medicin e levothyroxi 2019-07 Yes TK 1 T PO U nivers ne 112 mcg 0-11 D ity of tablet 00:00: [place] [facility] levothyroxi 2019-07 Yes TK 1 T PO U nivers ne 112 mcg 0-11 D ity of tablet 00:00: [place] [facility] levothyroxi 2019-07 Yes TK 1 T PO U nivers ne 112 mcg 0-11 D ity of tablet 00:00: [place] [facility] levothyroxi 2019-07 Yes TK 1 T PO U nivers ne 112 mcg 0-11 D ity of tablet 00:00: [place] [facility] levothyroxi 2019-07 Yes TK 1 T PO U nivers ne 112 mcg 0-11 D ity of tablet 00:00: [place] [facility] levothyroxi 2019-07 Yes TK 1 T PO U nivers ne 112 mcg 0-11 D ity of tablet 00:00: [place] [facility] acetaminoph 2019-07 2020- No 1{tbl} Take 1 Tab [facility] en-codeine 0-09 10-09 by mouth [facility] (TYLENOL 19:38: 00:00 every 8 of #3) 300-30 58 :00 hours. Medicin MG per e tablet triamterene 2019-07 Yes 1{capsu Take 1 Cap [facility] -hydrochlor 0-09 le} by mouth [facility] othiazide 19:38: every of (DYAZIDE) 49 morning. Medici n 37.5-25 MG e per capsule potassium 2019-07 Yes 10meq Take 10 [facility] chloride 0-09 mEq by [place] (MICRO-K) 19:38: mouth of 10 MEQ 49 daily. Medicin capsule e levothyroxi 2019-07 Yes 125ug Take 125 B aylor ne 0-09 mcg by [facility] [place] (SYNTHROID) 19:38: mouth of 125 MCG 49 daily. Medicin tablet e gabapentin 2019-07 Yes 500mg Take 500 [facility] (NEURONTIN) 0-09 mg by [facility] [place] 300 MG 19:38: mouth of capsule 49 [...] baclofen 2019-07 Yes 10mg Take 10 mg [facility] (LIORESAL) 0-09 by mouth Colle ge 10 MG 19:38: two times of tablet 49 daily. Medicin e Multiple 2019-07 Yes Take by [facility] Vitamins-Mi 0-09 mouth [place] nerals 19:38: daily. of (MULTIVITAM 49 Medicin IN ADULT e OR) B Complex 2019-07 Yes Take by [facility] Vitamins (B 0-09 mouth [place] COMPLEX 1 19:38: daily. of OR) 49 Medicin e Calcium 2019-07 Yes Take by [facility] Citrate-Vit 0-09 mouth two Col [facility]ge oliver D 19:38: times of (CALCIUM 49 daily. Medicin CITRATE + D e OR) Percy-3 2019-07 Yes Take by [facility] Fatty Acids 0-09 [facility] (FISH OIL) 19:38: daily. of 1200 MG 49 Medicin CAPS e Lactobacill 2019-07 Yes Take by Jay dayna us 0-09 mouth [place] (PROBIOTIC 19:38: daily. of ACIDOPHILUS 49 Medicin OR) e Calcium 2019-07 Yes Take by [facility] Polycarboph 0-09 mouth 3 Colle ge il 19:38: times of (FIBER-CAPS 49 daily. Medici n OR) e BIOTIN 5000 2019-07 Yes Take by Jay [facility]na OR 0-09 mouth [place] 19:38: daily. of 49 Medicin e L-THEANINE 2019-07 Yes 200mg Take 200 Ba ylor OR 0-09 mg by [place] 19:38: mouth of 49 daily. Medicin e Ascorbic 2019-07 Yes Take by [facility] Acid 0-09 mouth [place] (VITAMIN C) 19:38: daily. of 500 MG CAPS 49 Medicin e Turmeric 2019-07 Yes Take by [facility] Curcumin 0-09 mouth. [place] 500 MG CAPS 19:38: of 49 Medicin e Magnesium 2019-07 Yes Take by [facility] 400 MG TABS 0-09 mouth. Colleg e 19:38: of 49 Medicin e Lidocaine 2019-07 Yes Apply [facility] 0.5 % GEL 0-09 topically. Shanel ege 19:38: of 49 Medicin e levothyroxi 2019-07 Yes 125ug Take 125 B aylor ne 0-09 mcg by [facility] [place] (SYNTHROID) 19:38: mouth of 125 MCG 49 [...] baclofen 2019-07 Yes 10mg Take 10 mg [facility] (LIORESAL) 0-09 by mouth Colle ge 10 MG 19:38: two times of tablet 49 daily. Medicin e Multiple 2019-07 Yes Take by [facility] Vitamins-Mi 0-09 mouth [place] nerals 19:38: daily. of (MULTIVITAM 49 Medicin IN ADULT e OR) B Complex 2019-07 Yes Take by [facility] r Vitamins (B 0-09 mouth [place] COMPLEX 1 19:38: daily. of OR) 49 Medicin e Calcium 2019-07 Yes Take by [facility] Citrate-Vit 0-09 mouth two Col [facility]ge oliver D 19:38: times of (CALCIUM 49 daily. Medicin CITRATE + D e OR) Percy-3 2019-07 Yes Take by [facility] Fatty Acids 0-09 mouth [place] (FISH OIL) 19:38: daily. of 1200 MG 49 Medicin CAPS e Lactobacill 2019-07 Yes Take by Jay dayna us 0-09 mouth [place] (PROBIOTIC 19:38: daily. of ACIDOPHILUS 49 Medicin OR) e Calcium 2019-07 Yes Take by [facility] Polycarboph 0-09 mouth 3 Colle ge il 19:38: times of (FIBER-CAPS 49 daily. Medici n OR) e BIOTIN 5000 2019-07 Yes Take by Jay dayna OR 0-09 mouth [place] 19:38: daily. of 49 Medicin e L-THEANINE 2019-07 Yes 200mg Take 200 Ba ylor OR 0-09 mg by [facility] 19:38: mouth of 49 daily. Medicin e Ascorbic 2019-07 Yes Take by [facility] Acid 0-09 mouth [place] (VITAMIN C) 19:38: daily. of 500 MG CAPS 49 Medicin e Turmeric 2019-07 Yes Take by [facility] Curcumin 0-09 mouth. College 500 MG CAPS [...] mg 0-06 HS ity of capsule 00:00: [address] gabapentin 2019- Yes TK 1 C PO Un landen 300 mg 0-06 HS ity of capsule 00:00: [place] [address] [facility] [place] gabapentin 2019- Yes TK 1 C PO Un landen 300 mg 0-06 HS ity of capsule 00:00: [address] gabapentin 2019- Yes TK 1 C PO Un landen 300 mg 0-06 HS ity of capsule 00:00: [address] gabapentin 2020- Yes TK 1 C PO Un landen 300 mg 0-06 HS ity of capsule 00:00: [address] gabapentin 2019- Yes TK 1 C PO Un landen 300 mg 0-06 HS ity of capsule 00:00: [address] losartan 2020- Yes [facility] (COZAAR) 25 0-05 College MG tablet 00:00: of 00 Medicin e losartan 2019-07 Yes [facility] (COZAAR) 25 0-05 College MG tablet 00:00: of 00 Medicin e hydrOXYzine 2019-07 Yes Univer s 25 mg 0-05 ity of capsule 00:00: [address] lamoTRIgine 2019-07 Yes Univer s 25 mg 0-05 ity of tablet 00:00: [address] losartan 25 2019- Yes Univer s mg tablet 0-05 ity of 00:00: [address] hydrOXYzine 2019- Yes Univer s 25 mg 0-05 ity of capsule 00:00: [place] [facility] lamoTRIgine 2020 Yes Univer s 25 mg 0-05 ity of tablet 00:00: [place] 00 [facility] losartan 25 2019- Yes Univer s mg tablet 0-05 ity of 00:00: [place] [facility] hydrOXYzine 2019-07 Yes Univer s 25 mg 0-05 ity of capsule 00:00: [place] [address] [facility] lamoTRIgine 2019-07 Yes Univer s 25 mg 0-05 ity of tablet 00:00: [place] [address] [facility] losartan 25 2019-07 Yes Univer s mg tablet 0-05 ity of 00:00: [place] [address] [facility] hydrOXYzine 2019-07 Yes Univer s 25 mg 0-05 ity of capsule 00:00: [place] [address] [facility] lamoTRIgine 2019-07 Yes Univer s 25 mg 0-05 ity of tablet 00:00: [place] [address] [facility] losartan 25 2019-07 Yes Univer s mg tablet 0-05 ity of 00:00: [place] [address] [facility] hydrOXYzine 2019-07 Yes Univer s 25 mg 0-05 ity of capsule 00:00: [place] [address] [facility] lamoTRIgine 2019-07 Yes Univer s 25 mg 0-05 ity of tablet 00:00: [place] [address] [facility] losartan 25 2019-07 Yes Univer s mg tablet 0-05 ity of 00:00: [place] [address] [facility] hydrOXYzine 2019-07 Yes Univer s 25 mg 0-05 ity of capsule 00:00: [place] [address] [facility] lamoTRIgine 2019-07 Yes Univer s 25 mg 0-05 ity of tablet 00:00: [place] [address] [facility] losartan 25 2019-07 Yes Univer s mg tablet 0-05 ity of 00:00: [place] [address] [facility] losartan 2019-2020- No [facility] (COZAAR) 25 0-05 01-08 College MG tablet 00:00: 00:00 of 00 :00 Medicin e triamterene 2019-07 Yes TK 1 C PO U nivers -hydrochlor 0-01 D ity of othiazide 00:00: [place] 37.5-25 mg 00 Medical per [facility] triamterene 2019-07 Yes TK 1 C PO U nivers -hydrochlor 0-01 D ity of othiazide 00:00: [place] 37.5-25 mg 00 Medical per capsule Branch [...] capsule Branch losartan 0 2020- No DAILY [facility] (COZAAR) 25 9-11 11-19 College MG tablet 00:00: 00:00 of 00 :00 Medicin e risperdone Yes 1{tbl} Take 1 Tab [facility] (RISPERDAL) 9-07 by mouth [facility] 0.25 MG 00:00: two times of tablet 00 daily. Medicin e risperdone Yes 1{tbl} Take 1 Tab [facility] (RISPERDAL) 9-07 by mouth [facility] 0.25 MG 00:00: two times of tablet 00 daily. Medicin e risperdone 2020- No 1{tbl} Take 1 Tab [facility] (RISPERDAL) 9-07 -08 by mouth [facility] 0.25 MG 00:00: 00:00 two times of tablet 00 :00 daily. Medicin e triamterene Yes 1{capsu Take 1 Cap [facility] -hydrochlor 8-11 le} by mouth [facility] othiazide 16:27: every of (DYAZIDE) 09 morning. Medici n 37.5-25 MG e per capsule potassium Yes 10meq Take 10 [facility] chloride 8-11 mEq by [facility] [place] (MICRO-K) 16:27: mouth of 10 MEQ 09 daily. Medicin capsule e levothyroxi Yes 125ug Take 125 [facility] ne 8-11 mcg by [facility] (SYNTHROID) 16:27: mouth of 125 MCG 09 daily. Medicin tablet e gabapentin 2020-0 Yes 500mg Take 500 [facility] (NEURONTIN) - mg by [facility] 300 MG 16:27: mouth of capsule 09 daily. Medicin e lamoTRIgine 2020-0 Yes 50mg Take 50 mg [facility] 50 MG TBDP 02-27 by mouth Colle [facility] 16:27: two times of 09 daily. Medicin e baclofen 2020-0 Yes 10mg Take 10 mg [facility] (LIORESAL) 02-27 by mouth Colle ge 10 MG 16:27: two times of tablet 09 daily. Medicin e Multiple 2020-0 Yes Take by [facility] Vitamins-Mi 02-27 mouth [facility] [place] nerals 16:27: daily. of (MULTIVITAM 09 Medicin IN ADULT e OR) B Complex 2020-0 Yes Take by [facility] Vitamins (B 02-27 mouth [place] COMPLEX 1 16:27: daily. of OR) 09 Medicin e Calcium 2020-0 Yes Take by [facility] Citrate-Vit 02-27 mouth two [facility] oliver D 16:27: times of (CALCIUM 09 daily. Medicin CITRATE + D e OR) Percy-3 2020-0 Yes Take by [facility] Fatty Acids 02-27 mouth [facility] [place] (FISH OIL) 16:27: daily. of 1200 MG 09 Medicin CAPS e Lactobacill 2020-0 Yes Take by [facility] us 02-27 mouth [facility] [place] (PROBIOTIC 16:27: daily. of ACIDOPHILUS 09 Medicin OR) e Calcium 2020-0 Yes Take by [facility] Polycarboph 02-27 mouth 3 Colle ge il 16:27: times of (FIBER-CAPS 09 daily. Medici n OR) e BIOTIN 5000 2020-0 Yes Take by [facility] OR - mouth [place] 16:27: daily. of 09 Medicin e L-THEANINE 2020-0 Yes 200mg Take 200 [facility] OR 8-11 mg by [place] 16:27: mouth of 09 daily. Medicin e Turmeric 2020-0 Yes Take by [facility] Curcumin 02-27 mouth. [facility] [place] 500 MG CAPS 16:27: of 09 Medicin e Magnesium 2020-0 Yes Take by [facility] 400 MG TABS 02-27 mouth. Colleg e 16:27: of 09 Medicin e Lidocaine 2020-0 Yes Apply [facility] 0.5 % GEL 02-27 topically. [facility] 16:27: of 09 Medicin e atorvastati 2019-0 Yes 20mg Take 20 mg [facility] n (LIPITOR) 8 by mouth [facility] 20 MG 16:25: daily. of tablet 47 Medicin e Ascorbic 2020-0 Yes Take by [facility] Acid 02-27 mouth [place] (VITAMIN C) 16:25: daily. of 500 MG CAPS 47 Medicin e acetaminoph 2020-0 Yes 1{tbl} Take 1 Tab [facility] en-codeine 02-27 by mouth [facility] (TYLENOL 16:25: every 8 of #3) 300-30 47 hours. Medicin MG per e tablet levofloxaci 2020- No [id number] 500mg Take 1 Tab [facility] n 02-19 by [facility] (LEVAQUIN) 00:00: 04:59 daily for o f 500 MG 00 :00 3 days. 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 levofloxaci 2020- No [id number] 500mg Take 1 Tab [facility] n 02-19 by [facility] (LEVAQUIN) 00:00: 04:59 daily for o f 500 MG 00 :00 3 days. 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 levofloxaci 2020- No [id number] 500mg Take 1 Tab [facility] n 02-19 by [facility] (LEVAQUIN) 00:00: 04:59 daily for o f 500 MG 00 :00 3 days. 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 levofloxaci 2020- No [id number] 500mg Take 1 Tab [facility] n 02-19 by [facility] (LEVAQUIN) 00:00: 04:59 daily for o f 500 MG 00 :00 3 days. 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 lorazepam Yes TK SS T PO [facility] (ATIVAN) 7-28 TID [facility] 0.5 MG 00:00: HIGH of tablet 00 ANXIETY Medicin e lorazepam Yes TK SS T PO [facility] [...] TK SS T PO [facility] (ATIVAN) 7-28 07-13 TID PRF [facility] 0.5 MG 00:00: 00:00 [...] 2020-0 2021- No TK 1 T PO [facility] ne 714 01-08 D College (SYNTHROID) 00:00: 00:00 of 112 MCG 00 :00 Medicin tablet e mirtazapine 2020-0 Yes 15mg Take 1 Tab [facility] (REMERON) 01-25 by mouth Colleg e 15 MG 00:00: nightly. of tablet 00 Medicin e mirtazapine 2020-0 Yes 15mg Take 1 Tab [facility] (REMERON) 7 by mouth Colleg e 15 MG 00:00: nightly. of tablet 00 Medicin e mirtazapine 2020-0 2020- No 15mg Take 1 Tab [facility] (REMERON) 01-25 10-27 by mouth Colle ge 15 MG 00:00: 00:00 nightly. of tablet 00 :00 Medicin e triamcinolo 2020-0 2020- No [id number] Ba or ne 01-16 College acetonide 14:15: 14:02 of (KENALOG-40 00 :00 Medicin ) 40 mg/mL e 40 mg, bupivacaine (PF) (MARCAINE) 0.5 % 1 mL iohexol 2020-0 2020- No [id number] 1mL [facility] (OMNIPAQUE) 01-16 [facility] 300 MG/ML 14:15: 14:02 of injection 1 00 :00 Medicin mL e iohexol 2020-0 2020- No [id number] 1mL 1 mL, [facility] (OMNIPAQUE) 6 06-30 Epidural, Co llege 300 MG/ML 14:15: 14:02 ONCE, 1 of injection 1 00 :00 dose, Tue Med icin mL 01/17/20 at e 0915 triamcinolo 2020-0 2020- No [id number] Epidural, [facility] ne 01-16 06-30 ONCE, 1 [place] acetonide 14:15: 14:02 dose, Tue of (KENALOG-40 00 :00 01/17/20 at De dicin ) 40 mg/mL 0915 e 40 mg, bupivacaine (PF) (MARCAINE) 0.5 % 1 mL triamterene 2020-0 Yes 1{capsu Take 1 Cap [facility] -hydrochlor 6-23 le} by mouth [facility] othiazide 13:49: every of (DYAZIDE) 30 morning. Medici n 37.5-25 MG e per capsule potassium 2020-0 Yes 10meq Take 10 [facility] chloride 6-23 mEq by [facility] (MICRO-K) 13:49: mouth of 10 MEQ 30 daily. Medicin capsule e levothyroxi 2020-0 Yes 125ug Take 125 [facility] ne 6-23 mcg by [facility] (SYNTHROID) 13:49: mouth of 125 MCG 30 daily. Medicin tablet e gabapentin 2020-0 Yes 500mg Take 500 [facility] (NEURONTIN) 6-23 mg by [facility] [place] 300 MG 13:49: mouth of capsule 30 daily. Medicin e atorvastati 2020-0 Yes 20mg Take 20 mg [facility] n (LIPITOR) 6-23 by mouth [facility] 20 MG 13:49: daily. of tablet 30 Medicin e lamoTRIgine 2020-0 Yes 50mg Take 50 mg [facility] 50 MG TBDP 6-23 by mouth Colle ge 13:49: two times of 30 daily. Medicin e baclofen 2020-0 Yes 10mg Take 10 mg [facility] (LIORESAL) 6-23 by mouth Colle ge 10 MG 13:49: two times of tablet 30 daily. Medicin e Multiple 2020-0 Yes Take by [facility] Vitamins-Mi 6-23 mouth [place] nerals 13:49: daily. of (MULTIVITAM 30 Medicin IN ADULT e OR) B Complex 2020-0 Yes Take by [facility] Vitamins (B 6- mouth [place] COMPLEX 1 13:49: daily. of OR) 30 Medicin e Calcium 2020-0 Yes Take by [facility] Citrate-Vit 01-09 mouth two [facility] oliver D 13:49: times of (CALCIUM 30 daily. Medicin CITRATE + D e OR) Percy-3 2020-0 Yes Take by [facility] Fatty Acids 01-09 [facility] (FISH OIL) 13:49: daily. of 1200 MG 30 Medicin CAPS e Lactobacill 2020-0 Yes Take by [facility] us 01-09 mouth [place] (PROBIOTIC 13:49: daily. of ACIDOPHILUS 30 Medicin OR) e Calcium 2020-0 Yes Take by [facility] Polycarboph 01-09 mouth 3 Colle ge il 13:49: times of (FIBER-CAPS 30 daily. Medici n OR) e BIOTIN 5000 2020-0 Yes Take by [facility] OR 01-09 mouth [place] 13:49: daily. of 30 Medicin e L-THEANINE 2020-0 Yes 200mg Take 200 [facility] OR 6- mg by [facility] 13:49: mouth of 30 daily. Medicin e Ascorbic 2020-0 Yes Take by [facility] Acid 01-09 [facility] (VITAMIN C) 13:49: daily. of 500 MG CAPS 30 Medicin e Turmeric 2020-0 Yes Take by [facility] Curcumin 01-09 [facility]. [place] 500 MG CAPS 13:49: of 30 Medicin e acetaminoph 2020-0 Yes 1{tbl} Take 1 Tab [facility] en-codeine 01-09 by mouth [facility]le [facility] (TYLENOL 13:49: every 8 of #3) 300-30 30 hours. Medicin MG per e tablet Magnesium 2020-0 Yes Take by [facility] 400 MG TABS 01-09 mouth. Colleg e 13:49: of 30 Medicin e Lidocaine 2020-0 Yes Apply [facility] 0.5 % GEL - topically. [facility] 13:49: of 30 Medicin e triamterene 2020-0 Yes 1{capsu Take 1 Cap [facility] -hydrochlor 6- le} by mouth [facility] othiazide 13:49: every of (DYAZIDE) 30 morning. Medici n 37.5-25 MG e per capsule potassium 2020-0 Yes 10meq Take 10 [facility] chloride 6- mEq by [facility] [place] (MICRO-K) 13:49: mouth of 10 MEQ 30 [...] baclofen 2020-0 Yes 10mg Take 10 mg [facility] (LIORESAL) - by mouth Colle [facility] 10 MG 13:49: two times of tablet 30 daily. Medicin e Multiple 2020-0 Yes Take by [facility] Vitamins-Mi 01-09 mouth [place] nerals 13:49: daily. of (MULTIVITAM 30 Medicin IN ADULT e OR) B Complex 2020-0 Yes Take by [facility] r Vitamins (B 01-09 mouth [place] COMPLEX 1 13:49: daily. of OR) 30 Medicin e Calcium 2020-0 Yes Take by [facility] Citrate-Vit 01-09 mouth two [facility] oliver D 13:49: times of (CALCIUM 30 daily. Medicin CITRATE + D e OR) Percy-3 2020-0 Yes Take by [facility] Fatty Acids 01-09 [facility] (FISH OIL) 13:49: daily. of 1200 MG 30 Medicin CAPS e Lactobacill 2020-0 Yes Take by [facility] us 01-09 mouth [place] (PROBIOTIC 13:49: daily. of ACIDOPHILUS 30 Medicin OR) e Calcium 2020-0 Yes Take by [facility] Polycarboph 01-09 mouth 3 Colle ge il 13:49: times of (FIBER-CAPS 30 daily. Medici n OR) e BIOTIN 5000 2020-0 Yes Take by [facility] OR 01-09 mouth [place] 13:49: daily. of 30 Medicin e L-THEANINE 2020-0 Yes 200mg Take 200 [facility] OR 6-23 mg by [facility] 13:49: mouth of 30 daily. Medicin e Ascorbic 2020-0 Yes Take by [facility] Acid 01-09 [facility] (VITAMIN C) 13:49: daily. of 500 MG CAPS 30 Medicin e Turmeric 2020-0 Yes Take by [facility] Curcumin 6-23 mouth. [place] 500 MG CAPS 13:49: of 30 Medicin e acetaminoph 2020-0 Yes 1{tbl} Take 1 Tab [facility] en-codeine 6-23 by mouth Colle [facility] (TYLENOL 13:49: every 8 of #3) 300-30 30 hours. Medicin MG per e tablet Magnesium 2020-0 Yes Take by [facility] 400 MG TABS 6-23 mouth. Colleg [...] 10 [facility] chloride 6-19 mEq by [facility] [place] (MICRO-K) 18:04: mouth of 10 MEQ 39 daily. Medicin capsule e levothyroxi 2020-0 Yes 125ug Take 125 [facility] ne 6-19 mcg by [facility] [place] (SYNTHROID) 18:04: mouth of 125 MCG 39 daily. Medicin tablet e gabapentin 2020-0 Yes 500mg Take 500 [facility] (NEURONTIN) 6-19 mg by [facility] [place] 300 MG 18:04: mouth of capsule 39 daily. Medicin e atorvastati 2020-0 Yes 20mg Take 20 mg [facility] n (LIPITOR) 6-19 by mouth [facility] 20 MG 18:04: daily. of tablet 39 Medicin e lamoTRIgine 2020-0 Yes 50mg Take 50 mg [facility] 50 MG TBDP 6-19 by mouth Colle [facility] 18:04: two times of 39 daily. Medicin e baclofen 2020-0 Yes 10mg Take 10 mg [facility] (LIORESAL) 6-19 by mouth [facility]le [facility] 10 MG 18:04: two times of tablet 39 daily. Medicin e Multiple 2020-0 Yes Take by [facility] Vitamins-Mi 6-19 mouth [place] nerals 18:04: daily. of (MULTIVITAM 39 Medicin IN ADULT e OR) B Complex 2020-0 Yes Take by [facility] Vitamins (B 6-19 mouth [place] COMPLEX 1 18:04: daily. of OR) 39 Medicin e Calcium 2020-0 Yes Take by [facility] Citrate-Vit 01-05 mouth two [facility] o[facility] D 18:04: times of (CALCIUM 39 daily. Medicin CITRATE + D e OR) Percy-3 2020-0 Yes Take by [facility] Fatty Acids 01-05 [facility] (FISH OIL) 18:04: daily. of 1200 MG 39 Medicin CAPS e Lactobacill 2020-0 Yes Take by [facility] us - mouth [place] (PROBIOTIC 18:04: daily. of ACIDOPHILUS 39 Medicin OR) e Calcium 2020-0 Yes Take by [facility] Polycarboph 01-05 mouth 3 Colle ge il 18:04: times of (FIBER-CAPS 39 daily. Medici n OR) e BIOTIN 5000 2020-0 Yes Take by [facility] OR 01-05 mouth [place] 18:04: daily. of 39 Medicin e L-THEANINE 2020-0 Yes 200mg Take 200 [facility] OR 6- mg by [place] 18:04: mouth of 39 daily. Medicin e Ascorbic 2020-0 Yes Take by [facility] Acid 01-05 [facility] (VITAMIN C) 18:04: daily. of 500 MG CAPS 39 Medicin e Turmeric 2020-0 Yes Take by [facility] Curcumin 01-05 [facility]. [place] 500 MG CAPS 18:04: of 39 Medicin e acetaminoph 2020-0 Yes 1{tbl} Take 1 Tab [facility] en-codeine 01-05 by mouth [facility]le [facility] (TYLENOL 18:04: every 8 of #3) 300-30 39 hours. Medicin MG per e tablet Magnesium 2020-0 Yes Take by [facility] r 400 MG TABS - mouth. Colleg e 18:04: of 39 Medicin e Lidocaine 2020-0 Yes Apply [facility] 0.5 % GEL - topically. [facility] 18:04: of 39 Medicin e triamterene 2020-0 Yes 1{capsu Take 1 Cap [facility] -hydrochlor - le} by mouth [facility] othiazide 18:04: every of (DYAZIDE) 39 morning. Medici n 37.5-25 MG e per capsule potassium 2020-0 Yes 10meq Take 10 [facility] chloride - mEq by [facility] [place] (MICRO-K) 18:04: mouth of 10 MEQ 39 daily. Medicin capsule e levothyroxi 2020-0 Yes 125ug Take 125 [facility] ne 6-19 mcg by [facility] (SYNTHROID) 18:04: mouth of 125 MCG 39 daily. Medicin tablet e gabapentin 2020-0 Yes 500mg Take 500 [facility] (NEURONTIN) 6-19 mg by [facility] [place] 300 MG 18:04: mouth of capsule 39 [...] baclofen 2020-0 Yes 10mg Take 10 mg [facility] (LIORESAL) - by mouth Colle [facility] 10 MG 18:04: two times of tablet 39 daily. Medicin e Multiple 2020-0 Yes Take by [facility] Vitamins-Mi - mouth [place] nerals 18:04: daily. of (MULTIVITAM 39 Medicin IN ADULT e OR) B Complex 2020-0 Yes Take by [facility] r Vitamins (B 01-05 mouth [place] COMPLEX 1 18:04: daily. of OR) 39 Medicin e Calcium 2020-0 Yes Take by [facility] Citrate-Vit - mouth two [facility] oliver D 18:04: times of (CALCIUM 39 daily. Medicin CITRATE + D e OR) Percy-3 2020-0 Yes Take by [facility] Fatty Acids 01-05 [facility] (FISH OIL) 18:04: daily. of 1200 MG 39 Medicin CAPS e Lactobacill 2020-0 Yes Take by [facility] us 01-05 mouth [facility] [place] (PROBIOTIC 18:04: daily. of ACIDOPHILUS 39 Medicin OR) e Calcium 2020-0 Yes Take by [facility] Polycarboph - mouth 3 Colle ge il 18:04: times of (FIBER-CAPS 39 daily. Medici n OR) e BIOTIN 5000 2020-0 Yes Take by [facility] OR - mouth [place] 18:04: daily. of 39 Medicin e L-THEANINE 2020-0 Yes 200mg Take 200 [facility] OR 6-19 mg by [facility] 18:04: mouth of 39 daily. Medicin e Ascorbic 2020-0 Yes Take by [facility] Acid 6-19 mouth College (VITAMIN C) 18:04: daily. of 500 MG CAPS 39 Medicin e Turmeric 2020-0 Yes Take by [facility] Curcumin 6-19 mouth. [place] 500 MG CAPS 18:04: of 39 Medicin e acetaminoph 2020-0 Yes 1{tbl} Take 1 Tab [facility] en-codeine - by mouth [facility] ge (TYLENOL 18:04: every 8 of #3) 300-30 39 hours. Medicin MG per e tablet Magnesium 2020-0 Yes Take by [facility] 400 MG TABS - mouth. Colleg e 18:04: of 39 Medicin e Lidocaine 2020-0 Yes Apply [facility] 0.5 % GEL 01-05 topically. [facility] 18:04: of 39 Medicin e fluoxetine 2020-0 2020- No 10mg Take 10 mg [facility] (PROZAC) 10 -17 -17 by mouth [facility] MG tablet 16:48: 00:00 daily. of 05 :00 Medicin e hydrOXYzine 2020-0 2020- No 25mg Take 25 mg [facility] (ATARAX) 25 -17 -17 by mouth [facility] MG tablet 16:38: 00:00 two times of 31 :00 daily. Medicin e hydrOXYzine 2020-0 Yes 50mg Take 1 Tab [facility] (ATARAX) 50 6-17 by mouth 3 Co [facility]lege MG tablet 00:00: times of 00 daily as Medicin needed for e Anxiety. Desvenlafax 2020-0 Yes 25mg Take 25 mg [facility] ine 6-17 by mouth [facility] Succinate 00:00: daily. of ER 25 MG 00 Medicin TB24 e hydrOXYzine 2020-0 Yes 50mg Take 1 Tab [facility] (ATARAX) 50 6-17 by mouth 3 Co [facility]lege MG tablet 00:00: times of 00 daily as Medicin needed for e Anxiety. Desvenlafax 2020-0 Yes 25mg Take 25 mg [facility] ine 6-17 by mouth College Succinate 00:00: daily. of ER 25 MG 00 Medicin TB24 e hydrOXYzine 2020-0 Yes 50mg Take 1 Tab [facility] (ATARAX) 50 6-17 by mouth 3 Co [facility]lege MG tablet 00:00: times of 00 daily as Medicin needed for e Anxiety. Desvenlafax 2020-0 Yes 25mg Take 25 mg [facility] ine 6-17 by mouth College Succinate 00:00: daily. of ER 25 MG 00 Medicin TB24 e hydrOXYzine 2020-0 Yes 50mg Take 1 Tab [facility] (ATARAX) 50 6-17 by mouth 3 Co [facility]lege MG tablet 00:00: times of 00 daily as Medicin needed for e Anxiety. Desvenlafax 2020-0 Yes 25mg Take 25 mg [facility] ine 6-17 by mouth [facility] Succinate 00:00: daily. of ER 25 MG 00 Medicin TB24 e hydrOXYzine 2020-0 Yes 50mg Take 1 Tab [facility] (ATARAX) 50 6-17 by mouth 3 Co [facility]lege MG tablet 00:00: times of 00 daily as Medicin needed for e Anxiety. hydrOXYzine 2020-0 Yes 50mg Take 1 Tab [facility] (ATARAX) 50 6-17 by mouth 3 Co [facility]lege MG tablet 00:00: times of 00 daily as Medicin needed for e Anxiety. hydrOXYzine 2020-0 2020- No 50mg Take 1 Tab [facility] (ATARAX) 50 6-17 10-27 by mouth 3 C [facility] MG tablet 00:00: 00:00 times of 00 :00 daily as Medicin needed for e Anxiety. Lexiscan IV 2020-0 2020- No [id number] .4mg [facility] Shanell) 0.4 12-18 [facility] MG/5ML 16:00: 15:00 of injection 00 :00 Medicin 0.4 mg e Technetium 2020-0 2020- No [id number] 5mCi [facility] Tc 99m 12-18 [facility] Tetrofosmin 16:00: 15:00 of (MYOVIEW) 00 :00 Medicin injection e 5-30 millicurie Technetium 2020-0 2020- No [id number] 5mCi [facility] Tc 99m 12-18 [facility] [place] Tetrofosmin 16:00: 14:00 of (MYOVIEW) 00 :00 Medicin injection e 5-30 [facility] triamterene 2020-0 Yes 1{capsu Take 1 Cap [facility] -hydrochlor 5-26 le} by mouth [facility] othiazide 15:32: every of (DYAZIDE) 13 morning. Medici n 37.5-25 MG e per capsule potassium 2019-0 Yes 10meq Take 10 [facility] chloride 5-26 mEq by [facility] (MICRO-K) 15:32: mouth of 10 MEQ 13 daily. Medicin capsule e levothyroxi 2020-0 Yes 125ug Take 125 [facility] ne 5-26 mcg by [facility] (SYNTHROID) 15:32: mouth of 125 MCG 13 daily. Medicin tablet e gabapentin 2020-0 Yes 300mg Take 300 [facility] (NEURONTIN) 5-26 mg by [facility] 300 MG 15:32: mouth of capsule 13 daily. Medicin e atorvastati 2020-0 Yes 20mg Take 20 mg [facility] n (LIPITOR) - by mouth [facility] 20 MG 15:32: daily. of tablet 13 Medicin e lamoTRIgine 2020-0 Yes 50mg Take 50 mg [facility] 50 MG TBDP - by mouth Colle ge 15:32: two times of 13 daily. Medicin e hydrOXYzine 2020-0 Yes 25mg Take 25 mg [facility] (ATARAX) 25 - by mouth [facility] MG tablet 15:32: two times of 13 daily. Medicin e baclofen 2020-0 Yes 10mg Take 10 mg [facility] (LIORESAL) 12-12 by mouth Colle [facility] 10 MG 15:32: two times of tablet 13 daily. Medicin e Multiple 2020-0 Yes Take by [facility] Vitamins-Mi 12-12 mouth [place] nerals 15:32: daily. of (MULTIVITAM 13 Medicin IN ADULT e OR) B Complex 2020-0 Yes Take by [facility] r Vitamins (B 12-12 mouth [place] COMPLEX 1 15:32: daily. of OR) 13 Medicin e Calcium 2020-0 Yes Take by [facility] Citrate-Vit 12-12 mouth two [facility] D 15:32: times of (CALCIUM 13 daily. Medicin CITRATE + D e OR) Percy-3 2020-0 Yes Take by [facility] Fatty Acids 12-12 mouth [place] (FISH OIL) 15:32: daily. of 1200 MG 13 Medicin CAPS e Lactobacill 2020-0 Yes Take by [facility] us 12-12 mouth College (PROBIOTIC 15:32: daily. of ACIDOPHILUS 13 Medicin OR) e Calcium 2020-0 Yes Take by [facility] Polycarboph 12-12 mouth 3 Colle ge il 15:32: times of (FIBER-CAPS 13 daily. Medici n OR) e BIOTIN 5000 2020-0 Yes Take by [facility] OR 5-26 mouth [place] 15:32: daily. of 13 Medicin e L-THEANINE 2020-0 Yes 200mg Take 200 [facility] OR 5-26 mg by [facility] 15:32: mouth of 13 daily. Medicin e Ascorbic 2020-0 Yes Take by [facility] Acid 5-26 mouth [place] (VITAMIN C) 15:32: daily. of 500 MG CAPS 13 Medicin e Turmeric 2020-0 Yes Take by [facility] Curcumin 5-26 mouth. [place] 500 MG CAPS 15:32: of 13 Medicin e acetaminoph 2020-0 Yes 1{tbl} Take 1 Tab [facility] en-codeine 5-26 by mouth Colle ge (TYLENOL 15:32: every 4 of #3) 300-30 13 hours as Medic in MG per needed for e tablet Pain. fluoxetine 2020-0 Yes 10mg Take 10 mg [facility] (PROZAC) 10 5-26 by mouth [facility] MG tablet 15:32: daily. of 13 Medicin e triamterene 2020-0 Yes 1{capsu Take 1 Cap [facility] -hydrochlor 5-26 le} by mouth [facility] othiazide 15:32: every of (DYAZIDE) 13 morning. Medici n 37.5-25 MG e per capsule potassium 2020-0 Yes 10meq Take 10 [facility] chloride 5-26 mEq by [facility] [place] (MICRO-K) 15:32: mouth of 10 MEQ 13 daily. Medicin capsule e levothyroxi 2020-0 Yes 125ug Take 125 [facility] ne 5-26 mcg by [facility] (SYNTHROID) 15:32: mouth of 125 MCG 13 daily. Medicin tablet e gabapentin 2020-0 Yes 300mg Take 300 [facility] (NEURONTIN) 5-26 mg by [facility] [place] 300 MG 15:32: mouth of capsule 13 daily. Medicin e atorvastati 2020-0 Yes 20mg Take 20 mg [facility] n (LIPITOR) 5-26 by mouth [facility] 20 MG 15:32: daily. of tablet 13 Medicin e lamoTRIgine 2020-0 Yes 50mg Take 50 mg [facility] 50 MG TBDP 5-26 by mouth Colle ge 15:32: two times of 13 daily. Medicin e hydrOXYzine 2020-0 Yes 25mg Take 25 mg [facility] (ATARAX) 25 5-26 by mouth [facility] MG tablet 15:32: two times of 13 daily. Medicin e baclofen 2020-0 Yes 10mg Take 10 mg [facility] (LIORESAL) 12-12 by mouth Colle [facility] 10 MG 15:32: two times of tablet 13 daily. Medicin e Multiple 2020-0 Yes Take by [facility] Vitamins-Mi 12-12 mouth [place] nerals 15:32: daily. of (MULTIVITAM 13 Medicin IN ADULT e OR) B Complex 2020-0 Yes Take by [facility] r Vitamins (B 12-12 mouth [facility] COMPLEX 1 15:32: daily. of OR) 13 Medicin e Calcium 2020-0 Yes Take by [facility] Citrate-Vit 12-12 mouth two [facility] o[facility] D 15:32: times of (CALCIUM 13 daily. Medicin CITRATE + D e OR) Percy-3 2020-0 Yes Take by [facility] Fatty Acids 12-12 [facility] (FISH OIL) 15:32: daily. of 1200 MG 13 Medicin CAPS e Lactobacill 2020-0 Yes Take by [facility] us 12-12 mouth [place] (PROBIOTIC 15:32: daily. of ACIDOPHILUS 13 Medicin OR) e Calcium 2020-0 Yes Take by [facility] Polycarboph 12-12 mouth 3 Colle ge il 15:32: times of (FIBER-CAPS 13 daily. Medici n OR) e BIOTIN 5000 2020-0 Yes Take by [facility] OR 12-12 mouth College 15:32: daily. of 13 Medicin e L-THEANINE 2020-0 Yes 200mg Take 200 [facility] OR -26 mg by College 15:32: mouth of 13 daily. Medicin e Ascorbic 2020-0 Yes Take by [facility] Acid 12-12 [facility] (VITAMIN C) 15:32: daily. of 500 MG CAPS 13 Medicin e Turmeric 2020-0 Yes Take by [facility] Curcumin 12-12 mouth. College 500 MG CAPS 15:32: of 13 Medicin e acetaminoph 2020-0 Yes 1{tbl} Take 1 Tab [facility] en-codeine 12-12 by mouth Colle ge (TYLENOL 15:32: every 4 of #3) 300-30 13 hours as Medic in MG per needed for e tablet Pain. fluoxetine 2020-0 Yes 10mg Take 10 mg [facility] (PROZAC) 10 12-12 by mouth Shanel ege MG tablet 15:32: daily. of 13 Medicin e triamterene 2020-0 Yes 1{capsu Take 1 Cap [facility] -hydrochlor 5-19 le} by mouth Shanel ege othiazide 14:28: every of (DYAZIDE) 36 morning. Medici n 37.5-25 MG e per capsule potassium 2020-0 Yes 10meq Take 10 [facility] or chloride 5-19 mEq by [place] (MICRO-K) 14:28: mouth of 10 MEQ 36 daily. Medicin capsule e levothyroxi 2020-0 Yes 125ug Take 125 B [facility] ne 5-19 mcg by [place] (SYNTHROID) 14:28: mouth of 125 MCG 36 daily. Medicin tablet e gabapentin 2020-0 Yes 300mg Take 300 [facility] (NEURONTIN) 5-19 mg by [place] 300 MG 14:28: mouth of capsule 36 daily. Medicin e atorvastati 2020-0 Yes 20mg Take 20 mg [facility] n (LIPITOR) 5-19 by mouth Shanel [...] baclofen 2020-0 Yes 10mg Take 10 mg Jay dayna (LIORESAL) 5-19 by mouth Colle ge 10 MG 14:28: two times of tablet 36 daily. Medicin e Multiple 2020-0 Yes Take by [facility] Vitamins-Mi 5-19 mouth [place] nerals 14:28: daily. of (MULTIVITAM 36 Medicin IN ADULT e OR) B Complex 2020-0 Yes Take by [facility] r Vitamins (B 5-19 mouth [place] COMPLEX 1 14:28: daily. of OR) 36 Medicin e Calcium 2020-0 Yes Take by [facility] Citrate-Vit 5-19 mouth two Col lege oliver D 14:28: times of (CALCIUM 36 daily. Medicin CITRATE + D e OR) Percy-3 2020-0 Yes Take by [facility] Fatty Acids - [facility] (FISH OIL) 14:28: daily. of 1200 MG 36 Medicin CAPS e Lactobacill 2020-0 Yes Take by [facility]na us 5-19 mouth College (PROBIOTIC 14:28: daily. of ACIDOPHILUS 36 Medicin OR) e Calcium 2020-0 Yes Take by [facility] Polycarboph 5-19 mouth 3 Colle ge il 14:28: times of (FIBER-CAPS 36 daily. Medici n OR) e BIOTIN 5000 2020-0 Yes Take by [facility] OR 5-19 mouth College 14:28: daily. of 36 Medicin e L-THEANINE 2020-0 Yes 200mg Take 200 [facility] OR 5-19 mg by [facility] 14:28: mouth of 36 daily. Medicin e Ascorbic 2020-0 Yes Take by [facility] Acid - mouth [place] (VITAMIN C) 14:28: daily. of 500 MG CAPS 36 Medicin e Turmeric 2020-0 Yes Take by [facility] Curcumin - mouth. College 500 MG CAPS 14:28: of 36 Medicin e acetaminoph 2020-0 Yes 1{tbl} Take 1 Tab [facility] en-codeine 5-19 by mouth Colle (TYLENOL 14:28: [...] hydrocodone 2020-0 Yes 1{tbl} Take 1 Tab [facility] -acetaminop 5-05 by mouth 2 Co llege hen (NORCO) 14:46: times of 7.5-325 MG 24 daily as Medic in per tablet needed for e Pain. Turmeric 2020-0 Yes Take by [facility] Curcumin 5-05 mouth. [place] 500 MG CAPS 14:46: of 19 Medicin e triamterene 2020-0 Yes 1{capsu Take 1 Cap [facility] -hydrochlor 5-05 le} by mouth Shanel ege othiazide 14:46: every of (DYAZIDE) 18 morning. Medici n 37.5-25 MG e per capsule potassium 2020-0 Yes 10meq Take 10 [facility] or chloride 5-05 mEq by College (MICRO-K) 14:46: mouth of 10 MEQ 18 daily. Medicin capsule e levothyroxi 2020-0 Yes 125ug Take 125 B [facility] ne 5-05 mcg by [place] (SYNTHROID) 14:46: mouth of 125 MCG 18 [...] lamoTRIgine 2020-0 Yes 50mg Take 50 mg [facility] 50 MG TBDP 5-05 by mouth Colle ge 14:46: two times of 18 daily. Medicin e hydrOXYzine 2020-0 Yes 25mg Take 25 mg [facility] (ATARAX) 25 5-05 by mouth Shanel ege MG tablet 14:46: two times of 18 daily. Medicin e baclofen 2020-0 Yes 10mg Take 10 mg Jay dayna (LIORESAL) 5-05 by mouth Colle ge 10 MG 14:46: two times of tablet 18 daily. Medicin e Multiple 2020-0 Yes Take by [facility] Vitamins-Mi 5-05 mouth [place] nerals 14:46: daily. of (MULTIVITAM 18 Medicin IN ADULT e OR) B Complex 2020-0 Yes Take by [facility] r Vitamins (B 5-05 mouth [place] COMPLEX 1 14:46: daily. of OR) 18 Medicin e Calcium 2020-0 Yes Take by [facility] Citrate-Vit 5-05 mouth two Col lege oliver D 14:46: times of (CALCIUM 18 daily. Medicin CITRATE + D e OR) Percy-3 2020-0 Yes Take by [facility] Fatty Acids 5-05 mouth [place] (FISH OIL) 14:46: daily. of 1200 MG 18 Medicin CAPS e Lactobacill 2020-0 Yes Take by [facility] dayna us 5-05 mouth College (PROBIOTIC 14:46: daily. of ACIDOPHILUS 18 Medicin OR) e Calcium 2020-0 Yes Take by [facility] Polycarboph 5-05 mouth 3 Colle ge il 14:46: times of (FIBER-CAPS 18 daily. Medici n OR) e BIOTIN 5000 2020-0 Yes Take by [facility] OR 5-05 mouth College 14:46: daily. of 18 Medicin e L-THEANINE 2020-0 Yes 200mg Take 200 [facility] OR 5-05 mg by [facility] 14:46: mouth of 18 daily. Medicin e Ascorbic 2020-0 Yes Take by [facility] Acid 5-05 mouth [place] (VITAMIN C) 14:46: daily. of 500 MG [...] 10 [facility] or chloride 4-21 mEq by [place] (MICRO-K) 14:13: mouth of 10 MEQ 06 daily. Medicin capsule e levothyroxi 2020-0 Yes 125ug Take 125 B [facility] ne 4-21 mcg by [place] (SYNTHROID) 14:13: mouth of 125 MCG 06 daily. Medicin tablet e gabapentin 2020-0 Yes 300mg Take 300 [facility] (NEURONTIN) 4-21 mg by [place] 300 MG 14:13: mouth of capsule 06 daily. Medicin e atorvastati 2020-0 Yes 20mg Take 20 mg [facility] n (LIPITOR) 4-21 by mouth Shanel ege 20 MG 14:13: daily. of tablet 06 Medicin e lamoTRIgine 2020-0 Yes 50mg Take 50 mg [facility] 50 MG TBDP 4-21 by mouth Colle ge 14:13: two times of 06 daily. Medicin e hydrOXYzine 2020-0 Yes 25mg Take 25 mg [facility] (ATARAX) 25 4-21 by mouth Shanel ege MG tablet 14:13: two times of 06 daily. Medicin e baclofen 2020-0 Yes 10mg Take 10 mg [facility] (LIORESAL) 4-21 by mouth Colle ge 10 MG 14:13: two times of tablet 06 daily. Medicin e hydrocodone 2020-0 Yes 1{tbl} Take 1 Tab [facility] -acetaminop 11-07 by mouth 2 Co llege hen (NORCO) 14:13: times of 7.5-325 MG 06 daily as Medic in per tablet needed for e Pain. Multiple 2020-0 Yes Take by [facility] Vitamins-Mi 11-07 [facility] nerals 14:13: daily. of (MULTIVITAM 06 Medicin IN ADULT e OR) B Complex 2020-0 Yes Take by [facility] Vitamins (B 11-07 [facility] COMPLEX 1 14:13: daily. of OR) 06 Medicin e Calcium 2020-0 Yes Take by [facility] Citrate-Vit 11-07 [facility] two Col lege oliver D 14:13: times of (CALCIUM 06 daily. Medicin CITRATE + D e OR) Percy-3 2020-0 Yes Take by [facility] Fatty Acids 11-07 [facility] (FISH OIL) 14:13: daily. of 1200 MG 06 Medicin CAPS e Lactobacill 2020-0 Yes Take by [facility] us 11-07 [facility] (PROBIOTIC 14:13: daily. of ACIDOPHILUS 06 Medicin OR) e Calcium 2020-0 Yes Take by [facility] Polycarboph 11-07 [facility] 3 Colle ge il 14:13: times of (FIBER-CAPS 06 daily. Medici n OR) e BIOTIN 5000 2020-0 Yes Take by [facility] OR 11-07 [facility] 14:13: daily. of 06 Medicin e L-THEANINE 2020-0 Yes 200mg Take 200 [facility] OR 11-07 mg by [place] 14:13: mouth of 06 daily. Medicin e Ascorbic 2020-0 Yes Take by [facility] Acid 11-07 [facility] (VITAMIN C) 14:13: daily. of 500 MG CAPS 06 Medicin e Turmeric 2020-0 Yes Take by [facility] Curcumin 11-07 [facility]. [place] 500 MG CAPS 14:13: of 06 Medicin e Gabapentin 2020-0 2020- No by [facility] & [facility] 11-07 COMBINATIO [place] Lidocaine-M 14:13: 00:00 N route of enthol 06 :00 daily. Medicin (SMARTRX e JOEY CO) triamterene 2020-0 Yes 1{capsu Take 1 Cap [facility] -hydrochlor 10-24 le} by mouth Shanel ege othiazide 17:37: every of (DYAZIDE) 31 morning. Medici n 37.5-25 MG e per capsule Spironolact 2020-0 Yes 25mg Take 25 mg Herm[facility] one-HCTZ 4-07 by mouth [place] 25-25 MG 17:37: daily. of TABS 31 Medicin e potassium 2020-0 Yes 10meq Take 10 [facility] or chloride 4-07 mEq by [place] (MICRO-K) 17:37: mouth of 10 MEQ 31 daily. Medicin capsule e levothyroxi 2020-0 Yes 125ug Take 125 B [facility] ne 4-07 mcg by [place] (SYNTHROID) 17:37: mouth of 125 MCG 31 daily. Medicin tablet e gabapentin 2020-0 Yes 300mg Take 300 [facility] (NEURONTIN) 4-07 mg by [facility] 300 MG 17:37: mouth of capsule 31 daily. Medicin e atorvastati 2020-0 Yes 20mg Take 20 mg [facility] n (LIPITOR) 4-07 by mouth Shanel ege 20 MG 17:37: daily. of tablet 31 Medicin e lamoTRIgine 2020-0 Yes 50mg Take 50 mg [facility] 50 MG TBDP 4-07 by mouth Colle ge 17:37: two times of 31 daily. Medicin e hydrOXYzine 2020-0 Yes 25mg Take 25 mg [facility] (ATARAX) 25 4-07 by mouth Shanel ege MG tablet 17:37: two times of 31 daily. Medicin e baclofen 2020-0 Yes 10mg Take 10 mg Jay dayna (LIORESAL) 4-07 by mouth Colle ge 10 MG 17:37: two times of tablet 31 daily. Medicin e hydrocodone 2020-0 Yes 1{tbl} Take 1 Tab [facility] -acetaminop 4-07 by mouth 2 Co llege hen (NORCO) 17:37: times of 7.5-325 MG 31 daily as Medic in per tablet needed for e Pain. Multiple 2020-0 Yes Take by [facility] Vitamins-Mi 4-07 mouth [place] nerals 17:37: daily. of (MULTIVITAM 31 Medicin IN ADULT e OR) B Complex 2020-0 Yes Take by [facility] r Vitamins (B 4-07 mouth [place] COMPLEX 1 17:37: daily. of OR) 31 Medicin e Calcium 2020-0 Yes Take by [facility] Citrate-Vit 4-07 mouth two Col [facility]ge oliver D 17:37: times of (CALCIUM 31 daily. Medicin CITRATE + D e OR) Percy-3 2020-0 Yes Take by [facility] Fatty Acids 10-24 mouth [place] (FISH OIL) 17:37: daily. of 1200 MG 31 Medicin CAPS e Lactobacill 2020-0 Yes Take by [facility] us 10-24 mouth College (PROBIOTIC 17:37: daily. of ACIDOPHILUS 31 Medicin OR) e Calcium 2020-0 Yes Take by [facility] Polycarboph 10-24 mouth 3 Colle ge il 17:37: times of (FIBER-CAPS 31 daily. Medici n OR) e BIOTIN 5000 2020-0 Yes Take by [facility] OR - mouth College 17:37: daily. of 31 Medicin e magnesium 2020-0 Yes 30mL Take 30 mL [facility] hydroxide 10-24 by mouth Colleg e (MILK OF 17:37: daily. of MAGNESIA) 31 Medicin suspension e L-THEANINE 2020-0 Yes 200mg Take 200 [facility] OR - mg by College 17:37: mouth of 31 daily. Medicin e Ascorbic 2020-0 Yes Take by [facility] Acid 10-24 mouth [place] (VITAMIN C) 17:37: daily. of 500 MG CAPS 31 Medicin e Gabapentin 2020-0 Yes [facility]:37: N route of enthol 31 daily. Medicin (SMARTRX e JOEY CO) ondansetron 2020-0 2020- No [id number] 4mg Take 1 Tab [facility] (ZOFRAN) 4 10-24- by mouth Shanel ege MG tablet 00:00: 04:59 every 8 of 00 :00 hours as Medicin needed for e Nausea for up to 30 days. lidocaine-p 2020-0 2020- No [id number] 1{appli Apply 1 [facility] rilocaine 10-24 cation[facility]:00: 04:59 n of 2.5-2.5 % 00 :00 topically Medic in cream as needed e for Other (apply over PORT 30-60 minutes prior to treatment) for up to 30 days. ondansetron 2020-0 2020- No [id number] 4mg Take 1 Tab [facility] (ZOFRAN) 4 10-24-08 by mouth Shanel ege MG tablet 00:00: 04:59 every 8 of 00 :00 hours as Medicin needed for e Nausea for up to 30 days. lidocaine-p 2020-0 2020- No [id number] 1{appli Apply 1 [facility] rilocaine 10-24 cation} [facility]: 04:59 n of 2.5-2.5 % 00 :00 topically Medic in cream as needed e for Other (apply over PORT 30-60 minutes prior to treatment) for up to 30 days. ondansetron 2019-0 2020- No [id number] 4mg Take 1 Tab [facility] (ZOFRAN) 4 10-24-08 by mouth Shanel ege MG tablet 00:00: 04:59 every 8 of 00 :00 hours as Medicin needed for e Nausea for up to 30 days. lidocaine-p 2019- 2020- No [id number] 1{appli Apply 1 [facility] rilocaine 10-2408 cation} [facility] 00:00: 04:59 n of 2.5-2.5 % [...] Oral Tablet Calcium 2020-0 Yes Take by [facility] Citrate-Vit 3-17 mouth two Col lege oliver D 20:44: times of (CALCIUM 44 daily. Medicin CITRATE + D e OR) Percy-3 2020-0 Yes Take by [facility] Fatty Acids 3-17 [facility] (FISH OIL) 20:44: daily. of 1200 MG 44 Medicin CAPS e Lactobacill 2020-0 Yes Take by [facility] us - mouth [place] (PROBIOTIC 20:44: daily. of ACIDOPHILUS 44 Medicin OR) e Calcium 2020-0 Yes Take by [facility] Polycarboph 17 mouth 3 Colle ge il 20:44: times of (FIBER-CAPS 44 daily. Medici n OR) e BIOTIN 5000 2020-0 Yes Take by [facility] OR -17 mouth College 20:44: daily. of 44 Medicin e magnesium 2020-0 Yes 30mL Take 30 mL [facility] hydroxide -17 by mouth Colleg e (MILK OF 20:44: daily. of MAGNESIA) 44 Medicin suspension e L-THEANINE 2020-0 Yes 200mg Take 200 [facility] OR 3-17 mg by [place] 20:44: mouth of 44 daily. Medicin e Ascorbic 2020-0 Yes Take by [facility] Acid 17 [facility] (VITAMIN C) 20:44: daily. of 500 MG CAPS 44 Medicin e Gabapentin 2020-0 Yes by [facility] & 10-03 COMBINATIO [place] Lidocaine-M 20:44: N route of enthol 44 daily. Medicin (SMARTRX e JOEY CO) levothyroxi 2020-0 Yes 125ug Take 125 B [facility] ne 3-17 mcg by [place] (SYNTHROID) 20:44: mouth of 125 MCG 43 daily. Medicin tablet e gabapentin 2020-0 Yes 300mg Take 300 [facility] (NEURONTIN) 3-17 mg by [place] 300 MG 20:44: mouth of capsule 43 daily. Medicin e atorvastati 2020-0 Yes 20mg Take 20 mg [facility] n (LIPITOR) 3-17 by mouth Shanel ege 20 MG 20:44: daily. of tablet 43 Medicin e lamoTRIgine 2020-0 Yes 50mg Take 50 mg [facility] 50 MG TBDP 3-17 by mouth Colle ge 20:44: two times of 43 daily. Medicin e hydrOXYzine 2020-0 Yes 25mg Take 25 mg [facility] (ATARAX) 25 3-17 by mouth Shanel ege MG tablet 20:44: two times of 43 daily. Medicin e baclofen 2020-0 Yes 10mg Take 10 mg [facility] day[facility] (LIORESAL) 3-17 by mouth Colle ge 10 MG 20:44: two times of tablet 43 daily. Medicin e hydrocodone 2020-0 Yes 1{tbl} Take 1 Tab [facility] -acetaminop 3-17 by mouth 2 Co llege hen (NORCO) 20:44: times of 7.5-325 MG 43 daily as Medic in per tablet needed for e Pain. Multiple 2020-0 Yes Take by [facility] Vitamins-Mi 3-17 [facility] nerals 20:44: daily. of (MULTIVITAM 43 Medicin IN ADULT e OR) B Complex 2020-0 Yes Take by [facility] r Vitamins (B 3-17 [facility] COMPLEX 1 20:44: daily. of OR) 43 Medicin e triamterene 2020-0 Yes 1{capsu Take 1 Cap [facility] -hydrochlor 3-17 le} by mouth Shanel ege othiazide 20:31: every of (DYAZIDE) 15 morning. Medici n 37.5-25 MG e per capsule Spironolact 2020-0 Yes 25mg Take 25 mg [facility] one-HCTZ 3-17 by mouth [place] 25-25 MG 20:31: daily. of TABS 15 Medicin e potassium 2020-0 Yes 10meq Take 10 [facility] or chloride 3-17 mEq by [place] (MICRO-K) 20:31: mouth of 10 MEQ 15 daily. Medicin capsule e tramadol 2020-0 Yes 50 mg = 1 [facility] marylu hydrochlori 2-27 tab, PO, l de 50 MG 22:15: Q12H, X 30 Her [place] Oral Tablet 00 day, # 60 tab, 1 Refill(s), Pharmacy: [facility] #[id number] tramadol 2020-0 Yes 50 mg = 1 [place] marylu hydrochlori 2-27 tab, PO, l de 50 MG 22:15: Q12H, X 30 Her [place] Oral Tablet 00 day, # 60 tab, 1 Refill(s), Pharmacy: [facility] #[id number] tramadol 2020-0 Yes 50 mg = 1 [place] marylu hydrochlori 2-27 tab, PO, l de 50 MG 22:15: Q12H, X 30 Her [place] Oral Tablet 00 day, # 60 tab, 1 Refill(s), Pharmacy: [facility] #[id number] tramadol 2020-0 Yes 50 mg = 1 [place] marylu hydrochlori 2-27 tab, PO, l de 50 MG 22:15: Q12H, X 30 Her [place] Oral Tablet 00 day, # 60 tab, 1 Refill(s), Pharmacy: [facility] #[id number] Ascorbic 2020-0 Yes 1{capsu Take 1 Cap [facility] Acid 2-13 le} by mouth [place] (VITAMIN C) 00:00: daily. of 500 MG CAPS 00 Medicin e Percy-3 2020-0 Yes 1{tbl} Take 1 Tab [facility] Fatty Acids 2-13 by mouth Shanel ege (FISH OIL) 00:00: daily. of 1200 MG 00 Medicin CAPS e B 2020-0 Yes 1{capsu Take 1 Cap [facility] Complex-C-F 2-13 le} by mouth Shanel ege olic Acid 00:00: daily. of (SUPER B 00 Medicin COMPLEX/FA/ e VIT C OR) Turmeric 2020-0 Yes DAILY [facility] 500 MG CAPS 2-13 College 00:00: of 00 Medicin e Turmeric 2019-0 2020- No DAILY [facility] 500 MG CAPS 2-13 07-27 [place] 00:00: 00:00 of 00 :00 Medicin e Ascorbic 2020-0 2020- No 1{capsu Take 1 Cap [facility] Acid 2-13 11-19 le} by mouth [place] (VITAMIN C) 00:00: 00:00 daily. of 500 MG CAPS 00 :00 Medicin e Percy-3 2020-0 2020- No 1{tbl} Take 1 Tab [facility] Fatty Acids 2-13 11-19 by mouth Col lege (FISH OIL) 00:00: 00:00 daily. of 1200 MG 00 :00 Medicin CAPS e B 2019-0 2020- No 1{capsu Take 1 Cap Jay dayna Complex-C-F 2-13 11-19 le} by mouth Col [facility]ge olic Acid 00:00: 00:00 daily. of (SUPER B 00 :00 Medicin COMPLEX/FA/ e VIT C OR) Magnesium 2020-0 2020- No DAILY [facility] Oxide 250 2-13 11-19 College MG TABS 00:00: 00:00 of 00 :00 Medicin e baclofen 10 2020-0 Yes 10 mg = 1 M emoria mg oral 2-11 tab, PO, l tablet 19:17: BID, # 60 Harish n 00 tab, 2 Refill(s), Pharmacy: [facility] #[id number] baclofen 10 2020-0 Yes 10 mg = 1 M emoria mg oral 2-11 tab, PO, l tablet 19:17: BID, # 60 Harish n 00 tab, 2 Refill(s), Pharmacy: [facility] #[id number] baclofen 10 2020-0 Yes 10 mg = 1 M emoria mg oral 2-11 tab, PO, l tablet 19:17: BID, # 60 Harish n 00 tab, 2 Refill(s), Pharmacy: [facility] #[id number] baclofen 10 2020-0 Yes 10 mg = 1 M emoria mg oral 2-11 tab, PO, l tablet 19:17: BID, # 60 Harish n 00 tab, 2 Refill(s), Pharmacy: [facility] #[id number] duloxetine 2020-0 No PO, 0 Memori a 1-30 Refill(s) l 21:19: [facility] 00 DULoxetine 2020-0 Yes 20 mg = 1 Me moria 20 mg oral 1-30 cap, PO, l delayed 21:19: Daily, 0 Harish n release 00 Refill(s) capsule duloxetine 2020-0 No PO, 0 Memori a 1-30 Refill(s) l 21:19: [facility] 00 DULoxetine 2020-0 Yes 20 mg = 1 Me moria 20 mg oral 1-30 cap, PO, l delayed 21:19: Daily, 0 Harish n release 00 Refill(s) capsule duloxetine 2020-0 No PO, 0 Memori a 1-30 Refill(s) l 21:19: [facility] 00 DULoxetine 2020-0 Yes 20 mg = 1 Me moria 20 mg oral 1-30 cap, PO, l delayed 21:19: Daily, 0 Harish n release 00 Refill(s) capsule duloxetine 2020-0 No PO, 0 Memori a 1-30 Refill(s) l 21:19: [facility] 00 DULoxetine 2020-0 Yes 20 mg = 1 Me moria 20 mg oral 1-30 cap, PO, l delayed 21:19: Daily, 0 Harish n release 00 Refill(s) capsule duloxetine 2020-0 No See Memoria 1-30 Instructio l 21:02: ns, 50mg [facility] 00 PO qd, 0 Refill(s) duloxetine No See Memoria -30 Instructio l 21:02: ns, 50mg Aleksey 00 PO qd, 0 Refill(s) duloxetine No See Memoria 30 Instructio l 21:02: ns, 50mg Aleksey 00 PO qd, 0 Refill(s) duloxetine No See Memoria 30 Instructio l 21:02: ns, 50mg [facility] 00 PO qd, 0 Refill(s) Lorazepam 2018-07 [...] tab, PO, l tablet 20:55: TID, PRN Aleksey 00 Agitation, 0 Refill(s) Hydroxyzine 2018-07 Yes [...] tab, PO, l tablet 20:55: TID, PRN [facility] 00 Agitation, 0 Refill(s) Hydroxyzine 2018-07 Yes [...] tab, PO, l tablet 20:55: TID, PRN [facility] 00 Agitation, 0 Refill(s) clorazepate 2018-07 Yes 7.5 mg = 1 Memoria 7.5 mg oral 2-19 tab, PO, l tablet 20:55: TID, PRN Aleksey 00 Agitation, 0 Refill(s) Hydroxyzine 2018-07 Yes [...] noon, 1 tab qhs, 0 Refill(s) gabapentin 2019-0 Yes 300 mg = 1 M emoria 300 MG Oral 8-15 cap, PO, l Capsule 21:14: Daily, # Harish n 00 30 cap, 6 Refill(s), Pharmacy: [facility] #[id number] gabapentin 2019-0 Yes 300 mg = 1 M emoria 300 MG Oral 8-15 cap, PO, l Capsule 21:14: Daily, # Harish n 00 30 cap, 6 Refill(s), Pharmacy: [facility] #[id number] gabapentin 2019-0 Yes 300 mg = 1 M emoria 300 MG Oral 8-15 cap, PO, l Capsule 21:14: Daily, # Harish n 00 30 cap, 6 Refill(s), Pharmacy: [facility] #[id number] gabapentin 2019-0 Yes 300 mg = 1 M emoria 300 MG Oral 8-15 cap, PO, l Capsule 21:14: Daily, # Harish n 00 30 cap, 6 Refill(s), Pharmacy: [facility] #[id number] Potassium 2019-0 Yes 10 mEq, Memor ia Chloride 5-31 PO, Daily, l 20:53: 0 Aleksey 00 Refill(s) Potassium 2019-0 Yes 10 mEq, Memor ia Chloride 5-31 PO, Daily, l 20:53: 0 Aleksey 00 Refill(s) Potassium 2019-0 Yes 10 mEq, Memor ia Chloride 5-31 PO, Daily, l 20:53: 0 Aleksey 00 Refill(s) Potassium 2019-0 Yes 10 mEq, Memor ia Chloride 5-31 PO, Daily, l 20:53: 0 [facility] 00 Refill(s) 24 HR 2019-0 Yes See Memoria lamotrigine 1-11 Instructio l 50 MG 19:36: ns, 4 tab Aleksey Extended 00 PO Daily, Release 0 Tablet Refill(s) busPIRone 5 2019-0 Yes 10 mg = 2 M emoria mg oral 1-11 tab, PO, l tablet 19:36: BID, # 90 Harish n 00 tab, 0 Refill(s) 24 HR 2019-0 Yes See Memoria lamotrigine 1-11 Instructio l 50 MG 19:36: ns, 4 tab [facility] Extended 00 PO Daily, Release 0 Tablet Refill(s) busPIRone 5 Yes 10 mg = 2 M emoria mg oral -11 tab, PO, l tablet 19:36: BID, # 90 Harish n 00 tab, 0 Refill(s) 24 HR Yes See Memoria lamotrigine 07-30 Instructio l 50 MG 19:36: ns, 4 tab Ale[facility]sey Extended 00 PO Daily, Release 0 Tablet Refill(s) busPIRone 5 Yes 10 mg = 2 M emoria mg oral -11 tab, PO, l tablet 19:36: BID, # 90 Harish n 00 tab, 0 Refill(s) 24 HR Yes See Memoria lamotrigine 07-30 Instructio l 50 MG 19:36: ns, 4 tab [facility] Extended 00 PO Daily, Release 0 Tablet Refill(s) busPIRone 5 Yes 10 mg = 2 M emoria mg oral -11 tab, PO, l tablet 19:36: BID, # 90 Harish n 00 tab, 0 Refill(s) gabapentin Yes 100 mg = 1 M emoria 100 MG Oral 1-11 cap, PO, l Capsule 19:35: Daily, 0 Harish n 00 Refill(s) gabapentin Yes 100 mg = 1 M emoria 100 MG Oral 1-11 cap, PO, l Capsule 19:35: Daily, 0 Harish n 00 Refill(s) gabapentin Yes 100 mg = 1 M emoria 100 MG Oral 1-11 cap, PO, l Capsule 19:35: Daily, 0 Harish n 00 Refill(s) gabapentin 0 Yes 100 mg = 1 M emoria 100 MG Oral 1-11 cap, PO, l Capsule 19:35: Daily, 0 Harish n 00 Refill(s) Buspar 0 No PO, BID, 0 Memor ia -11 Refill(s) l 19:29: [facility] 00 lamotrigine No 75 mg = 3 M emoria 25 MG Oral -11 tab, PO, l Tablet 19:29: BID, 0 Alek[facility] [Lamictal] 00 Refill(s) Buspar No PO, BID, 0 Memor ia 1-11 Refill(s) l 19:29: lamotrigine 0 No 75 mg = 3 M emoria 25 MG Oral 1-11 tab, PO, l Tablet 19:29: BID, 0 [facility] [Lamictal] 00 Refill(s) Buspar No PO, BID, 0 Memor ia -11 Refill(s) l 19:29: lamotrigine 0 No 75 mg = 3 M emoria 25 MG Oral 1-11 tab, PO, l Tablet 19:29: BID, 0 Alek[facility] [Lamictal] 00 Refill(s) Buspar No PO, BID, 0 Memor ia -11 Refill(s) l 19:29: lamotrigine 0 No 75 mg = 3 M emoria [...] tab, PO, l tablet 19:26: QID, 0 [facility] 00 Refill(s) gabapentin 2017-07 No 100 mg [...] Gabapentin Gabapentin Yes [place] 1 capsule Common [place] [facility] Clonazepam Clonazepam Yes [place] 1 tablet Common Casi at bedtime Spiri t [facility] Fiber Fiber Yes [place] as Common Formula Formula Casi directed S [facility] Fish Oil Fish Oil Yes [place] 1 capsule C [facility] Gabapentin Gabapentin Yes [place] 1 capsule Common [facility] [facility] Atorvastati Atorvastati Yes [place] 1 tablet Common n Calcium n Calcium [place] [facility] Multivitami Multivitami Yes [place] as Common n n Casi directed Spirit - [facility] Magnesium Magnesium Yes [place] 1 tablet Common Casi with a Spirit meal - [facility] [facility] Turmeric Turmeric Yes [place] as Common Curcumin Curcumin Casi directed Spirit - [facility] Probiotic Probiotic Yes [place] as Comm on Casi directed Spirit - [facility] Potassium Potassium Yes [place] 1 tablet Common Bicarb-Citr Bicarb-Citr Casi Spirit ic Acid ic Acid - [facility] Levothyroxi Levothyroxi Yes [place] 1 tablet Common ne Sodium ne Sodium [place] on an Spirit empty - [facility] stomach in [facility] Super B Super B Yes [place] as Common Complex Complex Casi directed S pirit - [facility] Immunizations Ordered Filled Immunization Date Status Comments Sour e Immunization Name Name Influenza Virus 2020-04-03 Completed [facility] Influenza Virus 2020-04-03 Completed [facility]:00[facility]00 [facility] Influenza Virus 2020-04-03 Completed [facility] 00:00:00 [facility] Influenza Virus 2020-04-03 Completed [facility] Vaccine 00:00:00 [facility] Influenza Virus 2020-04-03 Completed [facility] Vaccine 00:00:00 [facility] Influenza Virus 2020-04-03 Completed [facility] Vaccine 00:00:00 [facility] Influenza 2020-03-20 Completed [facility] 00:00:00 Medicine Influenza 2020-03-20 Completed [facility] of 00:00:00 Medicine Influenza 2020-03-20 Completed [facility] of 00:00:00 Medicine Influenza 2020-03-20 Completed [facility] of 00:00:00 Medicine Influenza 2020-03-20 Completed [facility] of 00:00:00 Medicine Influenza 2020-03-20 Completed [facility] of 00:00:00 Medicine Influenza 2020-03-20 Completed [facility] of 00:00:00 Medicine Influenza 2020-03-20 Completed [facility] of 00:00:00 Medicine Influenza 2020-03-20 Completed [facility] of 00:00:00 Medicine Influenza 2020-03-20 Completed [facility] 00[facility]00:00 Medicine Influenza 2020-03-20 Completed [facility] of 00:00:00 Medicine Influenza 2020-03-20 Completed [facility] of 00:00:00 Medicine Influenza 2020-03-20 Completed [facility] 00:00:00 Medicine Influenza 2020-03-20 Completed [facility] 00:00:00 Medicine Influenza 2020-03-20 Completed [facility] of 00:00:00 Medicine Vital [...] kg Systolic blood 2022-02-18 20:40:00 150 mm[Hg] [facility] pressure Medicine Diastolic blood 2022-02-18 20:40:00 86 mm[Hg] [facility] Medicine Heart rate 2022-02-18 20:40:00 50 /min [facility] Body temperature 2022-02-18 20:40:00 36.56 [facility] Respiratory rate 2022-02-18 20:40:00 20 /min [facility] Body height 2022-02-18 20:40:00 157.5 cm [facility] Body weight 2022-02-18 20:40:00 66.679 kg [facility] BMI 2022-02-18 20:40:00 26.89 kg/m2 [facility] Systolic blood 2022-02-14 16:26:00 164 mm[Hg] [facility] Medicine Diastolic blood 2022-02-14 16:26:00 84 mm[Hg] [facility] pressure Medicine Heart rate 2022-02-14 16:26:00 70 /min [facility] Body height 2022-02-14 16:26:00 157.5 cm [facility] Body weight 2022-02-14 16:26:00 67.042 kg [facility] BMI 2022-02-14 16:26:00 27.03 kg/m2 [facility] Systolic blood 2021-11-15 15:37:00 129 mm[Hg] [facility] pressure Medicine Diastolic blood 2021-11-15 15:37:00 85 mm[Hg] [facility] pressure Medicine Heart rate 2021-11-15 15:37:00 61 /min [facility] Body temperature 2021-11-15 15:37:00 36.72 [facility] Body height 2021-11-15 15:37:00 160 cm [facility] Body weight 2021-11-15 15:37:00 65.499 kg [facility] BMI 2021-11-15 15:37:00 25.58 [facility] Systolic blood 2021-09-17 21:03:00 147 mm[Hg] [facility] pressure Medicine Diastolic blood 2021-09-17 21:03:00 82 mm[Hg] [facility] pressure Medicine Heart rate 2021-09-17 21:03:00 56 /min [facility] Systolic blood 2021-08-16 16:09:00 133 mm[Hg] [facility] of pressure Medicine Diastolic blood 2021-08-16 16:09:00 78 mm[Hg] [facility] pressure Medicine Heart rate 2021-08-16 16:09:00 69 /min [facility] Body temperature 2021-08-16 16:09:00 36.67 [facility] Respiratory rate 2021-08-16 16:09:00 18 /min [facility] Body height 2021-08-16 16:09:00 160 cm [facility] Body weight 2021-08-16 16:09:00 62.869 kg [facility] BMI 2021-08-16 16:09:00 24.55 kg/m2 [facility] Systolic blood 2021-08-08 16:55:00 139 mm[Hg] [facility] of pressure Medicine Diastolic blood 2021-08-08 16:55:00 94 mm[Hg] [facility] pressure Medicine Heart rate 2021-08-08 16:55:00 57 /min [facility] Body temperature 2021-08-08 16:55:00 36.83 [facility] Body height 2021-08-08 16:55:00 160 cm [facility] Body weight 2021-08-08 16:55:00 63.05 kg [facility] BMI 2021-08-08 16:55:00 24.62 kg/m2 [facility] Systolic blood 2021-05-07 19:35:00 145 mm[Hg] [facility] pressure Medicine Diastolic blood 2021-05-07 19:35:00 83 mm[Hg] [facility] pressure Medicine Heart rate 2021-05-07 19:35:00 86 /min [facility] Body temperature 2021-05-07 19:35:00 36.78 [facility] Body height 2021-05-07 19:35:00 160 cm [facility] Body weight 2021-05-07 19:35:00 61.236 kg [facility] BMI 2021-05-07 19:35:00 23.91 kg/m2 [facility] Systolic blood 2021-01-29 17:28:00 122 mm[Hg] [facility] pressure Medicine Diastolic blood 2021-01-29 17:28:00 78 mm[Hg] [facility] pressure Medicine Heart rate 2021-01-29 17:28:00 78 /min [facility] Body temperature 2021-01-29 17:28:00 36.11 [facility] Body height 2021-01-29 17:28:00 157.5 cm [facility] Body weight 2021-01-29 17:28:00 64.32 kg [facility] BMI 2021-01-29 17:28:00 25.94 kg/m2 [facility] Systolic blood 2021-01-29 18:24:00 110 mm[Hg] [facility] of pressure Medicine Diastolic blood 2021-01-29 18:24:00 77 mm[Hg] [facility] pressure Medicine Heart rate 2021-01-29 18:24:00 58 /min [facility] Body height 2021-01-29 18:24:00 160 cm [facility] Body weight 2021-01-29 18:24:00 63.957 kg [facility] BMI 2021-01-29 18:24:00 24.98 kg/m2 [facility] Systolic blood 2020-12-18 20:25:00 142 mm[Hg] [facility] pressure Medicine Diastolic blood 2020-12-18 20:25:00 95 mm[Hg] [facility] pressure Medicine Heart rate 2020-12-18 20:25:00 78 /min [facility] Body height 2020-12-18 20:25:00 157.5 cm [facility] Body weight 2020-12-18 20:25:00 62.143 kg [facility] BMI 2020-12-18 20:25:00 25.06 kg/m2 [facility] Systolic blood 2020-11-15 16:09:00 131 mm[Hg] [facility] pressure Medicine Diastolic blood 2020-11-15 16:09:00 89 mm[Hg] [facility] pressure Medicine Heart rate 2020-11-15 16:09:00 64 /min [facility] Body height 2020-11-15 16:09:00 157.5 cm [facility] Body weight 2020-11-15 16:09:00 62.143 kg [facility] BMI 2020-11-15 16:09:00 25.06 kg/m2 [facility] Systolic blood 2020-10-26 16:41:00 139 mm[Hg] [facility] pressure Medicine Diastolic blood 2020-10-26 16:41:00 82 mm[Hg] [facility] pressure Medicine Heart rate 2020-10-26 16:41:00 54 /min [facility] Body temperature 2020-10-26 16:41:00 36.44 [facility] Respiratory rate 2020-10-26 16:41:00 20 /min [facility] Body height 2020-10-26 16:41:00 157.5 cm [facility] Body weight 2020-10-26 16:41:00 62.415 kg [facility] BMI 2020-10-26 16:41:00 25.17 kg/m2 [facility] Systolic blood 2020-09-07 21:00:00 139 mm[Hg] [facility] pressure Medicine Diastolic blood 2020-09-07 21:00:00 82 mm[Hg] [facility] Medicine Heart rate 2020-09-07 21:00:00 62 /min [facility] Body height 2020-09-07 21:00:00 157.5 cm [facility] Body weight 2020-09-07 21:00:00 59.875 kg [facility] BMI 2020-09-07 21:00:00 24.14 kg/m2 [facility] Systolic blood 2020-08-02 16:01:00 122 mm[Hg] [facility] pressure Medicine Diastolic blood 2020-08-02 16:01:00 80 mm[Hg] [facility] pressure Medicine Heart rate 2020-08-02 16:01:00 82 /min [facility] Body height 2020-08-02 16:01:00 157.5 cm [facility] Body weight 2020-08-02 16:01:00 60.328 kg [facility] BMI 2020-08-02 16:01:00 24.33 kg/m2 [facility] Systolic blood 2020-07-27 17:29:00 157 mm[Hg] [facility] pressure Medicine Diastolic blood 2020-07-27 17:29:00 97 mm[Hg] [facility] pressure Medicine Heart rate 2020-07-27 17:29:00 66 /min [facility] Body temperature 2020-07-27 17:29:00 36.72 [facility] Body height 2020-07-27 17:29:00 157.5 cm [facility] Body weight 2020-07-27 17:29:00 59.33 kg [facility] BMI 2020-07-27 17:29:00 23.92 kg/m2 [facility] Systolic blood 2020-06-07 14:20:00 147 mm[Hg] [facility] pressure Medicine Diastolic blood 2020-06-07 14:20:00 96 mm[Hg] [facility] pressure Medicine Heart rate 2020-06-07 14:20:00 93 /min [facility] Body height 2020-06-07 14:20:00 157.5 cm [facility] Body weight 2020-06-07 14:20:00 67.132 kg [facility] BMI 2020-06-07 14:20:00 27.07 kg/m2 [facility] Systolic blood 2020-06-07 14:20:00 147 mm[Hg] [facility] pressure Medicine Diastolic blood 2020-06-07 14:20:00 96 mm[Hg] [facility] Medicine Heart rate 2020-06-07 14:20:00 93 /min [facility] Body height 2020-06-07 14:20:00 157.5 cm [facility] Body weight 2020-06-07 14:20:00 67.132 kg [facility] BMI 2020-06-07 14:20:00 27.07 kg/m2 [facility] Systolic blood 2020-05-15 19:46:00 160 mm[Hg] [facility] of pressure Medicine Diastolic blood 2020-05-15 19:46:00 84 mm[Hg] [facility] pressure Medicine Heart rate 2020-05-15 19:46:00 78 /min [facility] Body temperature 2020-05-15 19:46:00 36.83 [facility] Systolic blood 2020-05-15 19:46:00 160 mm[Hg] [facility] pressure Medicine Diastolic blood 2020-05-15 19:46:00 84 mm[Hg] [facility] Medicine Heart rate 2020-05-15 19:46:00 78 /min [facility] Body temperature 2020-05-15 19:46:00 36.83 [facility] Systolic blood 2020-04-27 19:35:00 143 mm[Hg] [facility] of pressure Medicine Diastolic blood 2020-04-27 19:35:00 83 mm[Hg] [facility] pressure Medicine Heart rate 2020-04-27 19:35:00 60 /min [facility] Body temperature 2020-04-27 19:35:00 36.78 [facility] Body height 2020-04-27 19:35:00 157.5 cm [facility] Body weight 2020-04-27 19:35:00 70.035 kg [facility] BMI 2020-04-27 19:35:00 28.24 kg/m2 [facility] Systolic blood 2020-04-27 19:35:00 143 mm[Hg] [facility] pressure Medicine Diastolic blood 2020-04-27 19:35:00 83 mm[Hg] [facility] Medicine Heart rate 2020-04-27 19:35:00 60 /min [facility] Body temperature 2020-04-27 19:35:00 36.78 [facility] Body height 2020-04-27 19:35:00 157.5 cm [facility] Body weight 2020-04-27 19:35:00 70.035 kg [facility] BMI 2020-04-27 19:35:00 28.24 kg/m2 [facility] Systolic blood 2020-02-28 16:22:00 134 mm[Hg] [facility] Diastolic blood 2020-02-28 16:22:00 78 mm[Hg] [facility] pressure Medicine Heart rate 2020-02-28 16:22:00 63 /min [facility] Body temperature 2020-02-28 16:22:00 36.83 [facility] Body height 2020-02-28 16:22:00 157.5 cm [facility] Body weight 2020-02-28 16:22:00 73.573 kg [facility] BMI 2020-02-28 16:22:00 29.67 kg/m2 [facility] Systolic blood 2020-02-28 16:22:00 134 mm[Hg] [facility] pressure Medicine Diastolic blood 2020-02-28 16:22:00 78 mm[Hg] [facility] Heart rate 2020-02-28 16:22:00 63 /min [facility] Body temperature 2020-02-28 16:22:00 36.83 [facility] Body height 2020-02-28 16:22:00 157.5 cm [facility] Body weight 2020-02-28 16:22:00 73.573 kg [facility] BMI 2020-02-28 16:22:00 29.67 kg/m2 [facility] HEIGHT 2020-01-23 00:00:00 157.5 cm WEIGHT 2020-01-23 00:00:00 68.493 kg HEIGHT 2020-01-12 00:00:00 157.5 cm WEIGHT 2020-01-12 00:00:00 68.901 kg Systolic blood 2020-01-17 13:44:00 124 mm[Hg] [facility] Medicine Diastolic blood 2020-01-17 13:44:00 78 mm[Hg] [facility] Medicine Heart rate 2020-01-17 13:44:00 71 /min [facility] Body temperature 2020-01-17 13:44:00 36.56 [facility] Body height 2020-01-17 13:44:00 157.5 cm [facility] Body weight 2020-01-17 13:44:00 70.308 kg [facility] BMI 2020-01-17 13:44:00 28.35 kg/m2 [facility] Systolic blood 2020-01-17 13:44:00 124 mm[Hg] [facility] of pressure Medicine Diastolic blood 2020-01-17 13:44:00 78 mm[Hg] [facility] pressure Medicine Heart rate 2020-01-17 13:44:00 71 /min [facility] Body temperature 2020-01-17 13:44:00 36.56 [facility] Body height 2020-01-17 13:44:00 157.5 cm [facility] Body weight 2020-01-17 13:44:00 70.308 kg [facility] BMI 2020-01-17 13:44:00 28.35 kg/m2 [facility] Systolic blood 2020-01-10 13:38:00 126 mm[Hg] [facility] of pressure Medicine Diastolic blood 2020-01-10 13:38:00 78 mm[Hg] [facility] pressure Medicine Heart rate 2020-01-10 13:38:00 79 /min [facility] Body temperature 2020-01-10 13:38:00 36.61 [facility] Body height 2020-01-10 13:38:00 157.5 cm [facility] Body weight 2020-01-10 13:38:00 70.58 kg [facility] BMI 2020-01-10 13:38:00 28.46 kg/m2 [facility] Systolic blood 2020-01-10 13:38:00 126 mm[Hg] [facility] of pressure Medicine Diastolic blood 2020-01-10 13:38:00 78 mm[Hg] [facility] pressure Medicine Heart rate 2020-01-10 13:38:00 79 /min [facility] Body temperature 2020-01-10 13:38:00 36.61 [facility] Body height 2020-01-10 13:38:00 157.5 cm [facility] Body weight 2020-01-10 13:38:00 70.58 kg [facility] BMI 2020-01-10 13:38:00 28.46 kg/m2 [facility] Systolic blood 2020-01-06 18:05:00 146 mm[Hg] [facility] of pressure Medicine Diastolic blood 2020-01-06 18:05:00 91 mm[Hg] [facility] pressure Medicine Heart rate 2020-01-06 18:05:00 68 /min [facility] Body temperature 2020-01-06 18:05:00 36.78 [facility] Body height 2020-01-06 18:05:00 157.5 cm [facility] Body weight 2020-01-06 18:05:00 71.668 kg [facility] BMI 2020-01-06 18:05:00 28.90 kg/m2 [facility] Systolic blood 2020-01-06 18:05:00 146 mm[Hg] [facility] of pressure Medicine Diastolic blood 2020-01-06 18:05:00 91 mm[Hg] [facility] Medicine Heart rate 2020-01-06 18:05:00 68 /min [facility] Body temperature 2020-01-06 18:05:00 36.78 [facility] Body height 2020-01-06 18:05:00 157.5 cm [facility] Body weight 2020-01-06 18:05:00 71.668 kg [facility] BMI 2020-01-06 18:05:00 28.90 kg/m2 [facility] Body height 2019-12-14 14:05:00 157.5 cm [facility] Body weight 2019-12-14 14:05:00 70.308 kg [facility] BMI 2019-12-14 14:05:00 28.35 kg/m2 [facility] Body height 2019-12-14 14:05:00 157.5 cm [facility] Body weight 2019-12-14 14:05:00 70.308 kg [facility] BMI 2019-12-14 14:05:00 28.35 kg/m2 [facility] Systolic blood 2019-12-13 15:31:00 143 mm[Hg] [facility] of pressure Medicine Diastolic blood 2019-12-13 15:31:00 91 mm[Hg] [facility] pressure Medicine Heart rate 2019-12-13 15:31:00 80 /min [facility] Respiratory rate 2019-12-13 15:31:00 16 /min [facility] Body height 2019-12-13 15:31:00 157.5 cm [facility] Body weight 2019-12-13 15:31:00 70.761 kg [facility] BMI 2019-12-13 15:31:00 28.53 kg/m2 [facility] Oxygen saturation in 2019-12-13 15:31:00 98 /min [facility] of Arterial blood by Medicine Pulse oximetry Systolic blood 2019-12-13 15:31:00 143 mm[Hg] [facility] Medicine Diastolic blood 2019-12-13 15:31:00 91 mm[Hg] [facility] pressure Medicine Heart rate 2019-12-13 15:31:00 80 /min [facility] Respiratory rate 2019-12-13 15:31:00 16 /min [facility] Body height 2019-12-13 15:31:00 157.5 cm [facility] Body weight 2019-12-13 15:31:00 70.761 kg [facility] BMI 2019-12-13 15:31:00 28.53 kg/m2 [facility] Oxygen saturation in 2019-12-13 15:31:00 98 /min [facility] of Arterial blood by Medicine Pulse oximetry Systolic blood 2019-12-06 14:09:00 152 mm[Hg] [facility] of pressure Medicine Diastolic blood 2019-12-06 14:09:00 82 mm[Hg] [facility] pressure Medicine Heart rate 2019-12-06 14:09:00 64 /min [facility] Body temperature 2019-12-06 14:09:00 36.5 [facility] Body height 2019-12-06 14:09:00 157.5 cm [facility] Body weight 2019-12-06 14:09:00 71.94 kg [facility] BMI 2019-12-06 14:09:00 29.01 kg/m2 [facility] Systolic blood 2019-12-06 14:09:00 152 mm[Hg] [facility] pressure Medicine Diastolic blood 2019-12-06 14:09:00 82 mm[Hg] [facility] pressure Medicine Heart rate 2019-12-06 14:09:00 64 /min [facility] Body temperature 2019-12-06 14:09:00 36.5 [facility] Body height 2019-12-06 14:09:00 157.5 cm [facility] Body weight 2019-12-06 14:09:00 71.94 kg [facility] BMI 2019-12-06 14:09:00 29.01 kg/m2 [facility] Systolic blood 2019-11-22 14:39:00 137 mm[Hg] [facility] pressure Medicine Diastolic blood 2019-11-22 14:39:00 70 mm[Hg] [facility] pressure Medicine Heart rate 2019-11-22 14:39:00 55 /min [facility] Body temperature 2019-11-22 14:39:00 36.61 [facility] Body height 2019-11-22 14:39:00 157.5 cm [facility] Body weight 2019-11-22 14:39:00 71.124 kg [facility] BMI 2019-11-22 14:39:00 28.68 kg/m2 [facility] Systolic blood 2019-11-22 14:39:00 137 mm[Hg] [facility] Medicine Diastolic blood 2019-11-22 14:39:00 70 mm[Hg] [facility] pressure Medicine Heart rate 2019-11-22 14:39:00 55 /min [facility] Body temperature 2019-11-22 14:39:00 36.61 [facility] Body height 2019-11-22 14:39:00 157.5 cm [facility] Body weight 2019-11-22 14:39:00 71.124 kg [facility] BMI 2019-11-22 14:39:00 28.68 kg/m2 [facility] Systolic blood 2019-11-08 14:07:00 144 mm[Hg] [facility] pressure Medicine Diastolic blood 2019-11-08 14:07:00 85 mm[Hg] [facility] pressure Medicine Heart rate 2019-11-08 14:07:00 58 /min [facility] Body temperature 2019-11-08 14:07:00 36.44 [facility] Body height 2019-11-08 14:07:00 157.5 cm [facility] Body weight 2019-11-08 14:07:00 71.578 kg [facility] BMI 2019-11-08 14:07:00 28.86 kg/m2 [facility] Systolic blood 2019-11-08 14:07:00 144 mm[Hg] [facility] of pressure Medicine Diastolic blood 2019-11-08 14:07:00 85 mm[Hg] [facility] pressure Medicine Heart rate 2019-11-08 14:07:00 58 /min [facility] Body temperature 2019-11-08 14:07:00 36.44 [facility] Body height 2019-11-08 14:07:00 157.5 cm [facility] Body weight 2019-11-08 14:07:00 71.578 kg [facility] BMI 2019-11-08 14:07:00 28.86 kg/m2 [facility] Body weight 2019-10-25 17:38:00 70.171 kg [facility] BMI 2019-10-25 17:38:00 28.30 kg/m2 [facility] Systolic blood 2019-10-25 17:38:00 154 mm[Hg] [facility] of pressure Medicine Diastolic blood 2019-10-25 17:38:00 86 mm[Hg] [facility] of pressure Medicine Heart rate 2019-10-25 17:38:00 52 /min [facility] Body temperature 2019-10-25 17:38:00 36.56 Ilana [facility] Respiratory rate 2019-10-25 17:38:00 18 /min [facility] Body height 2019-10-25 17:38:00 157.5 cm [facility] Body weight 2019-10-25 17:38:00 [facility]171 [facility] BMI 2019-10-25 17:38:00 28.30 kg/m2 [facility] Systolic blood 2019-10-25 17:38:00 154 mm[Hg] [facility] pressure Medicine Diastolic blood 2019-10-25 17:38:00 86 mm[Hg] [facility] Medicine Heart rate 2019-10-25 17:38:00 52 /min [facility] Body temperature 2019-10-25 17:38:00 36.56 Ilana [facility] Respiratory rate 2019-10-25 17:38:00 18 /min [facility] Body height 2019-10-25 17:38:00 157.5 cm [facility] 2019-10-04 20:10:00 142 mm[Hg] [facility] pressure Medicine Diastolic blood 2019-10-04 20:10:00 89 mm[Hg] [facility] Medicine Heart rate 2019-10-04 20:10:00 58 /min [facility] Body temperature 2019-10-04 20:10:00 36.56 Ilana [facility] Respiratory rate 2019-10-04 20:10:00 18 /min [facility] Body height 2019-10-04 20:10:00 160 cm [facility] Body weight 2019-10-04 20:10:00 71.668 kg [facility] of [facility] BMI 2019-10-04 20:10:00 27.99 kg/m2 [facility] Systolic blood 2019-10-04 20:10:00 142 mm[Hg] [facility] pressure Medicine Diastolic blood 2019-10-04 20:10:00 89 mm[Hg] [facility] pressure Medicine Heart rate 2019-10-04 20:10:00 58 /min [facility] Body temperature 2019-10-04 20:10:00 36.56 [facility] Respiratory rate 2019-10-04 20:10:00 18 /min [facility] Body height 2019-10-04 20:10:00 160 cm [facility] Body weight 2019-10-04 20:10:00 71.668 kg [facility] BMI 2019-10-04 20:10:00 27.99 kg/m2 [facility] Systolic blood 2022-03-18 15:00:00 134 mm[Hg] [facility] Diastolic blood 2022-03-18 15:00:00 73 mm[Hg] [facility] Heart rate 2022-03-18 15:00:00 57 /min [facility] Respiratory rate 2022-03-18 15:00:00 12 /min [facility] Oxygen saturation in 2022-03-18 15:00:00 98 /min [facility] Arterial blood by Medical Ce nter Pulse oximetry Body temperature 2022-03-18 10:37:00 36.17 Ilana [facility] Body height 2022-03-18 10:37:00 157.5 cm [facility] Body weight 2022-03-18 10:37:00 64.4 kg [facility] BMI 2022-03-18 10:37:00 25.97 kg/m2 [facility] Systolic (mm Hg) 2021-05-23 15:05:00 Mayco [facility] Diastolic (mm Hg) 2021-05-23 15:05:00 [facility] Heart Rate 2021-05-23 15:05:00 [facility] Respitory Rate 2021-05-23 15:05:00 [facility] Height 2021-05-23 15:05:00 157.48 cm [facility] Weight 2021-05-23 15:05:00 [facility] BMI Calculated 2021-05-23 15:05:00 [facility] Diastolic (mm Hg) 2021-03-13 19:55:00 [facility] Heart Rate 2021-03-13 19:55:00 [facility] Respitory Rate 2021-03-13 19:55:00 [facility] Height 2021-03-13 19:55:00 157.48 cm [facility] Weight 2021-03-13 19:55:00 [facility] BMI Calculated 2021-03-13 19:55:00 [facility] Systolic (mm Hg) 2021-03-13 19:55:00 Mayco rial [facility] Systolic (mm Hg) 2021-02-01 16:23:00 Mayco [facility] Diastolic (mm Hg) 2021-02-01 16:23:00 [facility] Heart Rate 2021-02-01 16:23:00 [facility] Respitory Rate 2021-02-01 16:23:00 [facility] Systolic (mm Hg) 2021-01-09 14:27:00 Mayco rial [facility] Diastolic (mm Hg) 2021-01-09 14:27:00 [facility] Heart Rate 2021-01-09 14:27:00 [facility] Respitory Rate 2021-01-09 14:27:00 [facility] Height 2021-01-09 14:27:00 157.48 cm [facility] Weight 2021-01-09 14:27:00 [facility] BMI Calculated 2021-01-09 14:27:00 [facility] Systolic (mm Hg) 2020-11-06 19:09:00 Mayco [facility] Diastolic (mm Hg) 2020-11-06 19:09:00 [facility] Heart Rate 2020-11-06 19:09:00 [facility] Respitory Rate 2020-11-06 19:09:00 [facility] Weight 2020-11-06 19:09:00 [facility] Systolic (mm Hg) 2020-09-05 19:20:00 Mayco [facility] Diastolic (mm Hg) 2020-09-05 19:20:00 [facility] Heart Rate 2020-09-05 19:20:00 [facility] Respitory Rate 2020-09-05 19:20:00 [facility] Height 2020-09-05 19:20:00 160.02 cm [facility] Weight 2020-09-05 19:20:00 [facility] BMI Calculated 2020-09-05 19:20:00 [facility] Systolic (mm Hg) 2020-07-25 17:04:00 Mayco rial [facility] Diastolic (mm Hg) 2020-07-25 17:04:00 [facility] Heart Rate 2020-07-25 17:04:00 [facility] Respitory Rate 2020-07-25 17:04:00 [facility] Height 2020-07-25 17:04:00 157.48 cm [facility] Weight 2020-07-25 17:04:00 [facility] BMI Calculated 2020-07-25 17:04:00 [facility] Weight 2020-06-21 19:55:00 [facility] BMI Calculated 2020-06-21 19:55:00 [facility] Systolic (mm Hg) 2020-06-21 19:55:00 Mayco rial [facility] Diastolic (mm Hg) 2020-06-21 19:55:00 [facility] Heart Rate 2020-06-21 19:55:00 [facility] Respitory Rate 2020-06-21 19:55:00 [facility] Height 2020-06-21 19:55:00 157.48 cm [facility] Systolic (mm Hg) 2020-05-10 19:02:00 Mayco [facility] Diastolic (mm Hg) 2020-05-10 19:02:00 [facility] Heart Rate 2020-05-10 19:02:00 [facility] Respitory Rate 2020-05-10 19:02:00 [facility] Height 2020-05-10 19:02:00 157.48 cm [facility] Weight 2020-05-10 19:02:00 [facility] BMI Calculated 2020-05-10 19:02:00 [facility] Systolic blood 2020-01-06 18:05:00 146 mm[Hg] [facility] pressure Medicine Diastolic blood 2020-01-06 18:05:00 91 mm[Hg] [facility] pressure Medicine Heart rate 2020-01-06 18:05:00 68 /min [facility] Body temperature 2020-01-06 18:05:00 36.78 [facility] Body height 2020-01-06 18:05:00 157.5 cm [facility] Body weight 2020-01-06 18:05:00 71.668 kg [facility] BMI 2020-01-06 18:05:00 28.90 kg/m2 [facility] Respiratory rate 2020-01-04 15:16:00 16 /min [facility] Oxygen saturation in 2019-12-13 15:31:00 98 /min [facility] blood by [facility] Pulse oximetry Systolic (mm Hg) 2019-09-15 21:38:00 Mayco rial [facility] Diastolic (mm Hg) 2019-09-15 21:38:00 [facility] Heart Rate 2019-09-15 21:38:00 [facility] Respitory Rate 2019-09-15 21:38:00 [facility] Height 2019-09-15 21:38:[address] [facility] Weight 2019-09-15 21:38:00 [facility] BMI Calculated 2019-09-15 21:38:00 [facility] Systolic (mm Hg) 2019-08-18 20:52:00 Mayco rial [facility] Diastolic (mm Hg) 2019-08-18 20:52:00 [facility] Heart Rate 2019-08-18 20:52:00 [facility] Respitory Rate 2019-08-18 20:52:00 [facility] Height 2019-08-18 20:52:00 162.56 cm [facility] Weight 2019-08-18 20:52:00 [facility] BMI Calculated 2019-08-18 20:52:00 [facility] Systolic (mm Hg) 2019-07-22 15:23:00 Mayco rial [facility] Diastolic (mm Hg) 2019-07-22 15:23:00 [facility] Heart Rate 2019-07-22 15:23:00 [facility] Respitory Rate 2019-07-22 15:23:00 [facility] Height 2019-07-22 15:23:00 157.48 cm [facility] Weight 2019-07-22 15:23:00 [facility] BMI Calculated 2019-07-22 15:23:00 [facility] Systolic (mm Hg) 2019-07-07 20:51:00 Mayco rial [facility] Diastolic (mm Hg) 2019-07-07 20:51:00 [facility] Heart Rate 2019-07-07 20:51:00 [facility] Respitory Rate 2019-07-07 20:51:00 [facility] Height 2019-07-07 20:51:00 157.48 cm [facility] Weight 2019-07-07 20:51:00 [facility] BMI Calculated 2019-07-07 20:51:00 [facility] Systolic (mm Hg) 2019-03-03 20:11:00 Mayco rial [facility] Diastolic (mm Hg) 2019-03-03 20:11:00 [facility] Heart Rate 2019-03-03 20:11:00 [facility] Respitory Rate 2019-03-03 20:11:00 [facility] Height 2019-03-03 20:11:00 157.48 cm [facility] Weight 2019-03-03 20:11:00 [facility] BMI Calculated 2019-03-03 20:11:00 [facility] Height 2019-02-02 19:56:00 160.02 cm [facility] Weight 2019-02-02 19:56:00 [facility] BMI Calculated 2019-02-02 19:56:00 [facility] Systolic (mm Hg) 2019-02-02 19:56:00 Mayco rial [facility] Diastolic (mm Hg) 2019-02-02 19:56:00 [facility] Respitory Rate 2019-02-02 19:56:00 [facility] Heart Rate 2019-02-02 19:56:00 [facility] Height 2018-12-17 20:37:00 160.02 cm [facility] BMI Calculated 2018-12-17 20:37:00 [facility] Weight 2018-12-17 20:37:00 [facility] Systolic (mm Hg) 2018-12-17 20:37:00 Mayco rial [facility] Diastolic (mm Hg) 2018-12-17 20:37:00 [facility] Heart Rate 2018-12-17 20:37:00 [facility] Respitory Rate 2018-12-17 20:37:00 [facility] Height 2018-07-30 19:12:00 160.02 cm [facility] BMI Calculated 2018-07-30 19:12:00 [facility] Weight 2018-07-30 19:12:00 [facility] Systolic (mm Hg) 2018-07-30 19:12:00 Mayco moreno [facility] Diastolic (mm Hg) 2018-07-30 19:12:00 [facility] Respitory Rate 2018-07-30 19:12:00 [facility] Heart Rate 2018-07-30 19:12:00 [facility] BMI Calculated 2018-06-18 19:08:00 [facility] Height 2018-06-18 19:08:00 157.48 cm [facility] Weight 2018-06-18 19:08:00 [facility] Systolic (mm Hg) 2018-06-18 19:08:00 Mayco moreno [facility] Diastolic (mm Hg) 2018-06-18 19:08:00 [facility] Heart Rate 2018-06-18 19:08:00 [facility] Respitory Rate 2018-06-18 19:08:00 [facility] Procedures Procedure Date / Time Performing Clinician Source Performed IR CV ACCESS FLUORO 2022-03-18 15:21:00 Bird Yen [facility] POCT-GLUCOSE METER 2022-03-18 11:39:[address] [facility] CBC W/PLT COUNT & AUTO 2022-03-18 11:37:[address] Bird Y[address] [facility] PROTHROMBIN TIME/INR 2022-03-18 11:37:00 Bird Yen [facility] CBC W/PLT COUNT & AUTO 2022-03-18 11:37:[address] Bird Yen [facility] CBC W/AUTO DIFF WITH 2022-02-17 12:14:34 [facility] Medicine COMPREHENSIVE METABOLIC 2022-02-17 12:14:34 [facility] PANEL Medicine MAGNESIUM 2022-02-17 12:14:34 [facility] VITAMIN B12 2022-02-17 12:14:34 [facility] TSH + FREE T4 PROFILE 2022-02-14 13:28:53 [facility] COMPREHENSIVE METABOLIC 2022-02-13 18:04:00 Omar Yen Ba [facility] PANEL [facility] VITAMIN B12 2022-02-13 18:04:00 Omar Yen [facility] MAGNESIUM 2022-02-13 18:04:00 Omar Yen [facility] CBC W/AUTO DIFF WITH 2022-02-13 18:04:00 Omar Yen [facility] PLATELETS [facility] TSH + FREE T4 PROFILE 2022-02-13 18:04:00 Omar Yen [facility] CBC W/AUTO DIFF WITH 2022-02-13 13:04:00 [facility] PLATELETS [facility] COMPREHENSIVE METABOLIC 2022-02-13 13:04:00 [facility] MAGNESIUM 2022-02-13 13:04:00 [facility] VITAMIN B12 2022-02-13 13:04:00 [facility] TSH + FREE T4 PROFILE 2022-02-13 13:04:[address] [facility] [address] ABDOMEN/PELVIS WITH & 2022-02-04 11:15:00 Bird Yen [facility] WITHOUT IV CONTRAST Medical [facility] er CT CHEST WITH IV CONTRAST 2022-02-04 11:15:00 Bird Yen [facility] COMPREHENSIVE METABOLIC 2021-11-15 16:07:00 Omar Yen Ba [facility] PANEL [facility] MAGNESIUM 2021-11-15 16:07:00 Omar Yen [facility] CBC W/AUTO DIFF WITH 2021-11-15 16:07:00 Omar Yen [facility] PL[facility]LETS [facility] CBC W/AUTO DIFF WITH 2021-11-15 11:07:00 [facility] PLATELETS [facility] COMPREHENSIVE METABOLIC 2021-11-15 11:07:00 [facility] MAGNESIUM 2021-11-15 11:07:00 [facility] VITAMIN B12 2021-11-15 11:07:[address] [facility] [address] CHEST WITH IV CONTRAST 2021-10-29 13:15:00 Yen, [facility] CT ABDOMEN/PELVIS WITH IV 2021-10-29 13:15:00 Yen, [facility] POCT URINALYSIS DIPSTICK 2021-08-08 00:00:00 Vita Jaimes [facility] CT CHEST WITH IV CONTRAST 2021-07-29 13:03:00 Yen, [facility] CT ABDOMEN/PELVIS WITH IV 2021-07-29 13:03:00 Yen, [facility] POCT-CREATININE 2021-07-29 12:50:00 Yen, [facility] CT ABDOMEN/PELVIS WITH IV 2021-05-03 11:22:00 Yen, [facility] CT CHEST WITH IV CONTRAST 2021-05-03 11:22:00 Yen, [facility] POCT-CREATININE 2021-05-03 11:04:00 Yen, [facility] EXTERNAL PROVIDER RECORDS 2020-10-05 05:01:00 Doctor Unassigned, [facility] [employer] [facility] BI SCREENING MAMMOGRAM 2020-07-19 18:09:33 Alec Foss [facility] BILATERAL [facility] PELVIS COMPLETE WITH 2020-07-19 17:44:07 Alec Foss [facility] TRANSVAGINAL [facility] US HEAD NECK 2020-07-19 17:37:41 Pipo [facility] ASSIGNMENT OF BENEFITS 2020-07-19 16:40:50 [facility] [employer] [facility] ASSIGNMENT OF BENEFITS 2020-06-25 19:52:55 [facility] [employer] [facility] POCT URINALYSIS DIPSTICK 2020-05-15 00:00:00 Vita Jaimes [facility] COMPREHENSIVE METABOLIC 2020-02-21 21:30:00 Vita Jaimes [facility] CBC W/AUTO DIFF WITH 2020-02-21 21:30:00 Vita Jaimes [facility] PLATELETS Medicine XR LUMBAR SPINE 2 VIEWS AP 2020-01-06 20:56:29 Giancarlo Doherty [facility] CBC W ABSOLUTE NEUTROPHIL 2019-12-20 05:00:00 Farshad [facility] COUNT Medicine COMPREHENSIVE METABOLIC 2019-12-20 05:00:00 Omar Yen [facility] PANEL Medicine MAGNESIUM 2019-12-20 05:00:00 [facility] MYOCARD PERFUSION - 2019-12-19 15:51:01 Frandy [facility] LEXISCAN [facility] ECHO, COMPLETE 2019-12-19 13:44:45 Frandy [facility] EJECTION FRACTION RESULT 2019-12-19 00:00:00 ProviderMaggie [facility] ELECTROCARDIOGRAM COMPLETE 2019-12-13 18:09:26 Frandy [facility] ELECTROCARDIOGRAM COMPLETE 2019-12-13 18:09:26 Frandy [facility] CBC W/AUTO DIFF WITH 2019-12-06 14:22:00 Frances Yenlemuel Castano [facility] PLATELETS Medicine COMPREHENSIVE METABOLIC 2019-12-06 14:22:00 [facility]ad [facility] PANEL Medicine MAGNESIUM 2019-12-06 14:22:00 Farshad [facility] CBC W ABSOLUTE NEUTROPHIL 2019-11-22 13:42:00 Yen [facility] COUNT Medicine COMPREHENSIVE METABOLIC 2019-11-22 13:42:00 YenOmar [facility] PANEL Medicine MAGNESIUM 2019-11-22 13:42:00 Yen [facility] COMPREHENSIVE METABOLIC 2019-11-08 13:29:00 Farshad kishore Castano [facility] PANEL Medicine MAGNESIUM 2019-11-08 13:29:00 Farshad [facility] ANG,TUNNEL CATH,CENTRAL 2019-11-01 20:08:00 Omar Yen [facility] INST W Medicine CBC W/AUTO DIFF WITH 2019-11-01 14:45:00 Eloise Yenlemuel Castano [facility] PROTIME-INR 2019-11-01 14:45:00 Mercy Garcia [facility] APTT 2019-11-01 14:45:00 Mercy Garcia [facility] CT CHEST W CONTRAST 2019-10-27 18:15:00 Vita Jaimes [facility] SURGICAL PATHOLOGY REPORT 2019-10-14 14:26:00 Vita Jaimes [facility] CT ABDOMEN PELVIS W WO 2019-10-12 20:47:00 Vita Jaimes [facility] CHEST 2 VIEWS 2019-10-12 20:12:00 Vita Jamies [facility] POCT URINALYSIS DIPSTICK 2019-10-04 00:00:00 Vita Jaimes [facility] Plan of Care Planned Activity Planned Date Details Comments Source Future Scheduled 2023-03-[address] [facility] Test 00:00[facility]00 [facility] (12+) [code = Tobacco Cessation Counseling and Screening (12+)] Future Scheduled 2022-08-17 CT CHEST ABDOMEN PELVIS Expected: [facility] Test 00:00:00 W/WO CONTRAST [code = 08/17/2022, [facility] [address]] Expires: 02/14/2023 Future Scheduled 2022-03-20 INFLUENZA VACCINE [...] (#1)] Future Scheduled 2022-02-18 TETANUS SHOT (ADULT) [employer] Test 15:40:57 [code = TETANUS SHOT of Medi cine (ADULT)] Future Scheduled 2022-02-18 BMI FOLLOW UP PLAN [employer] Test 15:40:57 [code = BMI FOLLOW UP of Med icine PLAN] Future Scheduled 2022-02-18 Hepatitis C screening [employer] Test 15:40:57 (procedure) [code = of Medic ine 313381685] Future Scheduled 2022-02-18 ZOSTER VACCINE (1 of 2) [facility] Test 15:40:57 [code = ZOSTER VACCINE of Me dicine (1 of 2)] Future Scheduled 2022-02-18 Screening for [facility] Test 15:40:57 osteoporosis of Medicine (procedure) [code = 725558754] Future Scheduled 2022-02-18 Pneumococcal 65+ (1 - [...] Scheduled 2022-02-17 CBC W/AUTO DIFF WITH Ordered: [employer] [facility] 12:14:34 PLATELETS [code = 02/17/2022 of Medicin e 39500-4] Future Scheduled 2022-02-17 COMPREHENSIVE METABOLIC Ordered: [facility] Test 12:14:34 PANEL [code = 46220-3] 02/17/2022 of Me dicine Future Scheduled 2022-02-17 MAGNESIUM [code = Ordered: [facility] Test 12:14:34 63727-6] 02/17/2022 of Medicine Future Scheduled 2022-02-17 VITAMIN B12 [code = Ordered: [employer] [facility] 12:14:34 2132-9] 02/17/2022 of Medicine Future Scheduled 2022-02-17 COVID-19 Vaccine (#1) [employer] [facility] 12:10:01 [code = COVID-19 of Medicine Vaccine (#1)] Future Scheduled 2022-02-17 TETANUS SHOT (ADULT) [employer] [facility] 12:10:01 [code = TETANUS SHOT of Medi cine (ADULT)] Future Scheduled 2022-02-17 BMI FOLLOW UP PLAN [employer] [facility] 12:10:01 [code = BMI FOLLOW UP of Med icine PLAN] Future Scheduled 2022-02-17 Hepatitis C screening [employer] Test 12:10:01 (procedure) [code = of Medic ine 289300703] Future Scheduled 2022-02-17 ZOSTER VACCINE (1 of 2) [employer] Test 12:10:01 [code = ZOSTER VACCINE of Me dicine (1 of 2)] Future Scheduled 2022-02-17 Screening for [facility] Test 12:10:01 osteoporosis of Medicine (procedure) [code = 531102240] Future Scheduled 2022-02-17 Pneumococcal 65+ (1 - [...] icine DEVICE REMOVAL [code = 02/14/2022 until 67117] 02/14/2023 Future Scheduled 2022-02-07 CT CHEST ABDOMEN PELVIS Expected: [facility] [employer] Test 00:00:00 W/WO CONTRAST [code = 02/07/2022, of Med icine 25023] Expires: 11/15/2022 Future Scheduled 2021-11-15 COVID-19 Vaccine (1) [employer] [facility] 11:04:13 [code = COVID-19 of Medicine Vaccine (1)] Future Scheduled 2021-11-15 TETANUS SHOT (ADULT) [employer] Test 11:04:13 [code = TETANUS SHOT of Medi cine (ADULT)] Future Scheduled 2021-11-15 BMI FOLLOW UP PLAN [employer] [facility] 11:04:13 [code = BMI FOLLOW UP of Med icine PLAN] Future Scheduled 2021-11-15 Hepatitis C screening [employer] Test 11:04:13 (procedure) [code = of Medic ine 364900803] Future Scheduled 2021-11-15 ZOSTER VACCINE (1 of 2) [facility] [employer] Test 11:04:13 [code = ZOSTER VACCINE of Me dicine (1 of 2)] Future Scheduled 2021-11-15 Screening for [facility] Test 11:04:13 osteoporosis of Medicine (procedure) [code = 972602137] Future Scheduled 2021-11-15 Pneumococcal 65+ (1 of [...] [code = [employer] Test 10:51:45 2132-9] of Medicine Future Scheduled 2021-09-17 COVID-19 Vaccine (1) [employer] [facility] 10:05:09 [code = COVID-19 of Medicine Vaccine (1)] Future Scheduled 2021-09-17 TETANUS SHOT (ADULT) [employer] [facility] 10:05:09 [code = TETANUS SHOT of Medi cine (ADULT)] Future Scheduled 2021-09-17 Hepatitis C screening [employer] Test 10:05:09 (procedure) [code = of Medic ine 615097322] Future Scheduled 2021-09-17 ZOSTER VACCINE (1 of 2) [employer] Test 10:05:09 [code = ZOSTER VACCINE of Me dicine (1 of 2)] Future Scheduled 2021-09-17 Screening for [employer] [facility] 10:05:09 osteoporosis of Medicine (procedure) [code = 877307787] Future Scheduled 2021-09-17 Pneumococcal 65+ (1 of [employer] Test 10:05:09 1 - PPSV23) [code = of Medic ine Pneumococcal 65+ (1 of 1 - PPSV23)] Future Scheduled 2021-09-17 MEDICARE AWV (Initial) [employer] Test 10:05:09 [code = MEDICARE AWV of Medi cine (Initial)] Future Scheduled 2021-09-17 FLU VACCINE > [...] Scheduled 2021-08-16 CBC W/AUTO DIFF WITH Ordered: [facility] Test 11:14:13 PLATELETS [code = 08/16/2021 of Medicin e 11847-2] Future Scheduled 2021-08-16 COMPREHENSIVE METABOLIC Ordered: [facility] Test 11:14:13 PANEL [code = 54807-8] 08/16/2021 of Me dicine Future Scheduled 2021-08-16 CT CHEST ABDOMEN PELVIS 1 Occurrences [facility] [employer] Test 11:14:13 W CONTRAST [code = [place] [address]-2] 08/16/2021 until 08/16/2022 Future Scheduled 2021-08-16 Screening for malignant [employer] Test 10:09:14 neoplasm of colon of Medicin e (procedure) [code = 656227391] Future Scheduled 2021-08-16 COVID-19 Vaccine (1) [employer] [facility] 10:09:14 [code = COVID-19 of Medicine Vaccine (1)] Future Scheduled 2021-08-16 TETANUS SHOT (ADULT) [employer] Test 10:09:14 [code = TETANUS SHOT of Medi cine (ADULT)] Future Scheduled 2021-08-16 Hepatitis C screening [employer] [facility] 10:09:14 (procedure) [code = of Medic ine 571746631] Future Scheduled 2021-08-16 ZOSTER VACCINE (1 of 2) [employer] Test 10:09:14 [code = ZOSTER VACCINE of Me dicine (1 of 2)] Future Scheduled 2021-08-16 Screening for [facility] Test 10:09:14 osteoporosis of Medicine (procedure) [code = 943438910] Future Scheduled 2021-08-16 Pneumococcal 65+ (1 of [...] MONTHS] Future Scheduled 2021-08-16 Screening for malignant [facility] [employer] Test 10:09:14 neoplasm of breast of Medici ne (procedure) [code = 567224508] Future Scheduled 2021-08-16 FALL SCREEN [code = [employer] Test 10:09:14 FALL SCREEN] of Medicine Future Scheduled 2021-08-08 Screening for malignant [facility] [employer] Test 10:57:12 neoplasm of colon of Medicin e (procedure) [code = 248591391] Future Scheduled 2021-08-08 COVID-19 Vaccine (1) [employer] [facility] 10:57:12 [code = COVID-19 of Medicine Vaccine (1)] Future Scheduled 2021-08-08 TETANUS SHOT (ADULT) [employer] [facility] 10:57:12 [code = TETANUS SHOT of Medi cine (ADULT)] Future Scheduled 2021-08-08 Hepatitis C screening [employer] [facility] 10:57:12 (procedure) [code = of Medic ine 628597719] Future Scheduled 2021-08-08 ZOSTER VACCINE (1 of 2) [employer] Test 10:57:12 [code = ZOSTER VACCINE of Me dicine (1 of 2)] Future Scheduled 2021-08-08 FALL SCREEN [code = [employer] [facility] 10:57:12 FALL SCREEN] of Medicine Future Scheduled 2021-08-08 Screening for [employer] Test 10:57:12 osteoporosis of Medicine (procedure) [code = 352694045] Future Scheduled 2021-08-08 Pneumococcal 65+ (1 of [...] MONTHS] Future Scheduled 2021-08-08 Screening for malignant [facility] [employer] Test 10:57:12 neoplasm of breast of Medici ne (procedure) [code = 314809199] Future Scheduled 2021-08-08 CBC W/AUTO DIFF WITH Ordered: [facility] [employer] Test 10:54:25 PLATELETS [code = 08/08/2021 of Medicin e 29455-9] Future Scheduled 2021-08-08 COMPREHENSIVE METABOLIC Ordered: [facility] [employer] Test 10:54:25 PANEL [code = 51661-0] 08/08/2021 of Me dicine Future Scheduled 2021-08-08 VITAMIN B12 [code = Ordered: [facility] [employer] Test 10:54:25 2132-9] 08/08/2021 of Medicine [...] 2021-05-07 CT CHEST ABDOMEN PELVIS 1 Occurrences [facility] Test 14:59:03 W CONTRAST [code = [place] [address]-7] 05/07/2021 until 05/07/2022 Future Scheduled 2021-05-07 Screening for malignant [facility] [employer] Test 14:45:26 neoplasm of colon of Medicin e (procedure) [code = 183561983] Future Scheduled 2021-05-07 COVID-19 Vaccine (1) [facility] [employer] Test 14:45:26 [code = COVID-19 of Medicine Vaccine (1)] Future Scheduled 2021-05-07 TETANUS SHOT (ADULT) [employer] [facility] Test 14:45:26 [code = TETANUS SHOT of Medi cine (ADULT)] Future Scheduled 2021-05-07 Hepatitis C screening [facility] Test 14:45:26 (procedure) [code = of Medic ine 287083864] Future Scheduled 2021-05-07 ZOSTER VACCINE (1 of 2) [facility] [employer] Test 14:45:26 [code = ZOSTER VACCINE of Me dicine (1 of 2)] Future Scheduled 2021-05-07 FALL SCREEN [code = [employer] [facility] [employer] [facility] 14:45:26 FALL SCREEN] of Medicine Future Scheduled 2021-05-07 Screening for [employer] [facility] 14:45:26 osteoporosis of Medicine (procedure) [code = 375496165] Future Scheduled 2021-05-07 PNEUMOVAX >=65 (PPSV23) [facility] [employer] Test 14:45:26 [code = PNEUMOVAX >=65 of Me dicine (PPSV23)] Future Scheduled 2021-05-07 MEDICARE AWV (Initial) [facility] [employer] Test 14:45:26 [code = MEDICARE AWV of Medi cine (Initial)] Future Scheduled 2021-05-07 FLU VACCINE > 6 MONTHS [employer] Test 14:45:26 [code = FLU VACCINE > 6 of M edicine MONTHS] Future Scheduled 2021-05-07 Screening for malignant [facility] Test 14:45:26 neoplasm of breast of Medici ne (procedure) [code = 111243924] Future Scheduled 2021-05-01 CT CHEST ABDOMEN PELVIS Expected: [facility] Test 00:00:00 W CONTRAST [code = 05/01/2021, [place] [address]-0] Expires: 01/29/2022 Future Scheduled 2021-03-21 MEDICARE ANNUAL [...] IPPE)] Future Scheduled 2021-01-29 Screening for malignant [facility] Test 14:20:34 neoplasm of colon of Medicin e (procedure) [code = 508538685] Future Scheduled 2021-01-29 COVID-19 Vaccine (1) [facility] Test 14:20:34 [code = COVID-19 of Medicine Vaccine (1)] Future Scheduled 2021-01-29 TETANUS SHOT (ADULT) [facility] [employer] Test 14:20:34 [code = TETANUS SHOT of Medi cine (ADULT)] Future Scheduled 2021-01-29 Hepatitis C screening [facility] Test 14:20:34 (procedure) [code = of Medic ine 569841225] Future Scheduled 2021-01-29 ZOSTER VACCINE (1 of 2) [facility] Test 14:20:34 [code = ZOSTER VACCINE of Me dicine (1 of 2)] Future Scheduled 2021-01-29 FALL SCREEN [code = [facility] Test 14:20:34 FALL SCREEN] of Medicine Future Scheduled 2021-01-29 Screening for [employer] [facility] 14:20:34 osteoporosis of Medicine (procedure) [code = 263638336] Future Scheduled 2021-01-29 PNEUMOVAX >=65 (PPSV23) [facility] [employer] Test 14:20:34 [code = PNEUMOVAX >=65 of Me dicine (PPSV23)] Future Scheduled 2021-01-29 MEDICARE IPPE (WELCOME [facility] [employer] Test 14:20:34 TO MEDICARE) [code = of Medi cine MEDICARE IPPE (WELCOME TO MEDICARE)] Future Scheduled 2021-01-29 FLU VACCINE > 6 MONTHS [employer] Test 14:20:34 [code = FLU VACCINE > 6 of M edicine MONTHS] Future Scheduled 2021-01-29 Screening for malignant [facility] Test 14:20:34 neoplasm of breast of Medici ne (procedure) [code = 805887138] Future Scheduled 2021-01-29 Screening for malignant [facility] Test 13:25:47 neoplasm of colon of Medicin e (procedure) [code = 859514201] Future Scheduled 2021-01-29 COVID-19 Vaccine (1) [facility] Test 13:25:47 [code = COVID-19 of Medicine Vaccine (1)] Future Scheduled 2021-01-29 TETANUS SHOT (ADULT) [facility] [employer] Test 13:25:47 [code = TETANUS SHOT of Medi cine (ADULT)] Future Scheduled 2021-01-29 BMI FOLLOW UP PLAN [facility] Test 13:25:47 [code = BMI FOLLOW UP of Med icine PLAN] Future Scheduled 2021-01-29 Hepatitis C screening [facility] [employer] Test 13:25:47 (procedure) [code = of Medic ine 090236427] Future Scheduled 2021-01-29 ZOSTER VACCINE (1 of 2) [facility] [employer] Test 13:25:47 [code = ZOSTER VACCINE of Me dicine (1 of 2)] Future Scheduled 2021-01-29 FALL SCREEN [code = [employer] Test 13:25:47 FALL SCREEN] of Medicine Future Scheduled 2021-01-29 Screening for [facility] Test 13:25:47 osteoporosis of Medicine (procedure) [code = 243627980] Future Scheduled 2021-01-29 PNEUMOVAX >=65 (PPSV23) [facility] [employer] Test 13:25:47 [code = PNEUMOVAX >=65 of Me dicine (PPSV23)] Future Scheduled 2021-01-29 MEDICARE IPPE (WELCOME [facility] [employer] Test 13:25:47 TO MEDICARE) [code = of Medi cine MEDICARE IPPE (WELCOME TO MEDICARE)] Future Scheduled 2021-01-29 FLU VACCINE > 6 MONTHS [employer] Test 13:25:47 [code = FLU VACCINE > 6 of M edicine MONTHS] Future Scheduled 2021-01-29 Screening for malignant [facility] Test 13:25:47 neoplasm of breast of Medici ne (procedure) [code = 161763023] Future Scheduled 2021-01-29 CBC W/AUTO DIFF WITH Ordered: [facility] Test 12:59:23 PLATELETS [code = 01/29/2021 of Medicin e 14595-7] Future Scheduled 2021-01-29 COMPREHENSIVE METABOLIC Ordered: [facility] Test 12:59:23 PANEL [code = 20762-6] 01/29/2021 of Me dicine Future Scheduled 2021-01-29 MAGNESIUM [code = Ordered: [facility] Test 12:59:23 92630-0] 01/29/2021 of Medicine Future Scheduled 2021-01-29 VITAMIN B12 [code = Ordered: [facility] Test 12:59:23 2-9] 01/29/2021 of Medicine Future Scheduled 2020-12-18 Screening for malignant [facility] Test 15:26:17 neoplasm of colon of Medicin e (procedure) [code = 812185926] Future Scheduled 2020-12-18 COVID-19 Vaccine (1) [facility] Test 15:26:17 [code = COVID-19 of Medicine Vaccine (1)] Future Scheduled 2020-12-18 TETANUS SHOT (ADULT) [facility] [employer] Test 15:26:17 [code = TETANUS SHOT of Medi cine (ADULT)] Future Scheduled 2020-12-18 BMI FOLLOW UP PLAN [facility] [employer] Test 15:26:17 [code = BMI FOLLOW UP of Med icine PLAN] Future Scheduled 2020-12-18 Hepatitis C screening [facility] [employer] Test 15:26:17 (procedure) [code = of Medic ine 095024938] Future Scheduled 2020-12-18 ZOSTER VACCINE (1 of 2) [facility] Test 15:26:17 [code = ZOSTER VACCINE of Me dicine (1 of 2)] Future Scheduled 2020-12-18 Screening for [employer] [facility] 15:26:17 osteoporosis of Medicine (procedure) [code = 409292385] Future Scheduled 2020-12-18 PNEUMOVAX >=65 (PPSV23) [employer] Test 15:26:17 [code = PNEUMOVAX >=65 of Me dicine (PPSV23)] Future Scheduled 2020-12-18 MEDICARE IPPE (WELCOME [facility] [facility] [facility] [employer] Test 15:26:17 TO MEDICARE) [code = of [employer] MEDICARE IPPE (WELCOME TO MEDICARE)] Future Scheduled 2020-12-18 FALL SCREEN [code = [employer] [facility] 15:26:17 FALL SCREEN] of Medicine Future Scheduled 2020-12-18 FLU VACCINE > 6 MONTHS [employer] Test 15:26:17 [code = FLU VACCINE > 6 of M edicine MONTHS] Future Scheduled 2020-12-18 Screening for malignant [facility] Test 15:26:17 neoplasm of breast of Medici ne (procedure) [code = 448969666] Diagnostic Test 2020-10-25 CT CHEST ABDOMEN PELVIS Expected: [employer] Pending 00:00:00 W CONTRAST [code = 10/25/2020, [place] [address]-7] Expires: 07/27/2021 Diagnostic Test 2020-04-05 CT ABDOMEN PELVIS W WO Expected: [facility] [place] Pending 00:00:00 CONTRAST [code = 04/05/2020, of Medicine 25508-2] Expires: 05/05/2020 Diagnostic Test 2019-12-13 MYOCARD PERFUSION - Expected: [facility] [place] Pending 00:00:00 LEXISCAN [code = 31283] 12/13/2019, of M edicine Expires: 06/14/2021 Diagnostic Test 2019-12-13 ECHO, COMPLETE [code = Expected: [facility] [place] Pending 00:00:00 60209] 12/13/2019, of Medicine Expires: 06/14/2020 Diagnostic Test 2019-11-01 IR PORT PLACEMENT EQUAL Expected: [employer] Pending 00:00:00 OR > 5 YEARS [code = 11/01/2019, of [place] 75424] Expires: 10/24/2020 Future Scheduled 2010 PNEUMOCOCCAL 65+ [...] DXA [facility] Test 00:00:00 SCAN] [facility] Future Scheduled 1945 DXA SCAN [code = DXA [facility] Test 00:00:00 SCAN] Medical Center Future Scheduled 1945 DXA SCAN [code = DXA [facility] Test 00:00:00 SCAN] [facility] Future Scheduled Screening for malignant [facility] Test neoplasm of colon of Medicin e (procedure) [code = 442316774] Future Scheduled TETANUS SHOT (ADULT) [facility] Test [code = TETANUS SHOT of Medi cine (ADULT)] Future Scheduled COVID-19 Vaccine (1) [employer] [facility] [code = COVID-19 of Medicine Vaccine (1)] Future Scheduled Hepatitis C screening [employer] [employer] Test (procedure) [code = of Medic ine 694138853] Future Scheduled ZOSTER VACCINE (1 of 2) [employer] Test [code = ZOSTER VACCINE of Me dicine (1 of 2)] Future Scheduled Screening for [employer] [facility] osteoporosis of Medicine (procedure) [code = 942368661] Future Scheduled PNEUMOVAX >=65 (PPSV23) [employer] Test [code = PNEUMOVAX >=65 of Me dicine (PPSV23)] Future Scheduled MEDICARE IPPE (WELCOME [employer] [facility] TO MEDICARE) [code = of [employer] MEDICARE IPPE (WELCOME TO MEDICARE)] Future Scheduled FALL SCREEN [code = [employer] [facility] FALL SCREEN] of Medicine Future Scheduled Screening for malignant [employer] Test neoplasm of breast of Medici ne (procedure) [code = 759056992] Future Scheduled CBC W/AUTO DIFF WITH Ordered: [employer] [facility] PLATELETS [code = 10/25/2019 of Medicin e 34235-6] Future Scheduled Screening for malignant [facility] [employer] Test neoplasm of colon of Medicin e (procedure) [code = 691770149] Future Scheduled TETANUS SHOT (ADULT) [employer] [facility] [code = TETANUS SHOT of Medi cine (ADULT)] Future Scheduled COVID-19 Vaccine (1) [employer] Test [code = COVID-19 of Medicine Vaccine (1)] Future Scheduled Hepatitis C screening [employer] [employer] [facility] (procedure) [code = of Medic ine 184138484] Future Scheduled ZOSTER VACCINE (1 of 2) [facility] [employer] Test [code = ZOSTER VACCINE of Me dicine (1 of 2)] Future Scheduled Screening for [employer] osteoporosis of Medicine (procedure) [code = 868059038] Future Scheduled PNEUMOVAX >=65 (PPSV23) [employer] Test [code = PNEUMOVAX >=65 of Me dicine (PPSV23)] Future Scheduled MEDICARE IPPE (WELCOME [employer] [facility] TO MEDICARE) [code = of [employer] MEDICARE IPPE (WELCOME TO MEDICARE)] Future Scheduled COMPREHENSIVE METABOLIC Ordered: [facility] Test PANEL [code = 86842-9] 10/25/2019 of Me dicine Future Scheduled FALL SCREEN [code = [employer] [facility] FALL SCREEN] of Medicine Future Scheduled Screening for malignant [facility] [employer] Test neoplasm of breast of Medici ne (procedure) [code = 083305189] Future Scheduled MAGNESIUM [code = Ordered: [facility] [employer] Test 54999-3] 10/25/2019 of Medicine Future Scheduled COLON CANCER SCREENING: [facility] [employer] Test COLONOSCOPY [code = of Medic ine COLON CANCER SCREENING: COLONOSCOPY] Future Scheduled Screening for malignant [facility] [employer] Test neoplasm of colon of Medicin e (procedure) [code = 957577954] Future Scheduled TETANUS SHOT (ADULT) [employer] [facility] [code = TETANUS SHOT of Medi cine (ADULT)] Future Scheduled COVID-19 Vaccine (1) [employer] [facility] [code = COVID-19 of Medicine Vaccine (1)] Future Scheduled BMI FOLLOW UP PLAN [employer] Test [code = BMI FOLLOW UP of Med icine PLAN] Future Scheduled Hepatitis C screening [facility] [employer] [facility] (procedure) [code = of Medic ine 670371876] Future Scheduled MAMMOGRAM ANNUAL [code [facility] [employer] Test = MAMMOGRAM ANNUAL] of Medic ine Future Scheduled ZOSTER VACCINE (1 of 2) [facility] [employer] Test [code = ZOSTER VACCINE of Me dicine (1 of 2)] Future Scheduled Screening for [facility] Test osteoporosis of Medicine (procedure) [code = 358851363] Future Scheduled PNEUMOVAX >=65 (PPSV23) [facility] [employer] Test [code = PNEUMOVAX >=65 [...] edicine MONTHS] Future Scheduled Screening for malignant [facility] [employer] Test neoplasm of breast of Medici ne (procedure) [code = 641008270] Future Scheduled TETANUS SHOT (ADULT) [employer] Test [code = TETANUS SHOT of Medi cine (ADULT)] Future Scheduled BMI FOLLOW UP PLAN [employer] Test [code = BMI FOLLOW UP of Med icine PLAN] Future Scheduled Screening for malignant [facility] [employer] Test neoplasm of colon of Medicin e (procedure) [code = 505824611] Future Scheduled TETANUS SHOT (ADULT) [employer] Test [code = TETANUS SHOT of Medi cine (ADULT)] Future Scheduled COVID-19 Vaccine (1) [employer] Test [code = COVID-19 of Medicine Vaccine (1)] Future Scheduled BMI FOLLOW UP PLAN [employer] Test [code = BMI FOLLOW UP of Med icine PLAN] Future Scheduled HEPATITIS C SCREENING [facility] [employer] Test [code = HEPATITIS C of Medic ine SCREENING] Future Scheduled Hepatitis C screening [employer] [employer] Test (procedure) [code = of Medic ine 464063648] Future Scheduled ZOSTER VACCINE (1 of 2) [facility] [employer] Test [code = ZOSTER VACCINE of Me dicine (1 of 2)] Future Scheduled Screening for [facility] Test osteoporosis of Medicine (procedure) [code = 098414434] Future Scheduled PNEUMOVAX >=65 (PPSV23) [facility] [employer] Test [code = PNEUMOVAX >=65 of Me dicine (PPSV23)] Future Scheduled MEDICARE IPPE (WELCOME B [facility] Test TO MEDICARE) [code = of Medi cine MEDICARE IPPE (WELCOME TO MEDICARE)] Future Scheduled FALL SCREEN [code = [employer] [facility] FALL SCREEN] of Medicine Future Scheduled FLU VACCINE > 6 MONTHS [facility] Test [code = FLU VACCINE > 6 of M edicine MONTHS] Future Scheduled Screening for malignant [facility] [employer] Test neoplasm of breast of Medici ne (procedure) [code = 799073298] Future Scheduled FALL SCREEN [code = [employer] [facility] FALL SCREEN] of Medicine Future Scheduled OSTEOPOROSIS SCREENING [facility] [facility] Test [code = OSTEOPOROSIS of [facility] cine SCREENING] Future Scheduled PNEUMOVAX >=65 (PPSV23) [facility] [employer] Test [code = PNEUMOVAX >=65 of Me dicine (PPSV23)] Future Scheduled PREVNAR >= 65 (PCV13) [employer] Test [code = PREVNAR >= 65 of Med icine (PCV13)] Future Scheduled FLU VACCINE > 6 MONTHS [employer] Test [code = FLU VACCINE > 6 of M edicine MONTHS] Future Scheduled CBC W/AUTO DIFF WITH Ordered: [facility] Test PLATELETS [code = 11/08/2019 of Medicin e 08724-2] Future Scheduled COMPREHENSIVE METABOLIC Ordered: [facility] Test PANEL [code = 03238-0] 11/08/2019 of Me dicine Future Scheduled MAGNESIUM [code = Ordered: [facility] Test 49063-7] 11/08/2019 of Medicine Future Scheduled COLON CANCER SCREENING: [facility] Test COLONOSCOPY [code = of Medic ine COLON CANCER SCREENING: COLONOSCOPY] Future Scheduled MAMMOGRAM ANNUAL [code B [facility] [employer] Test = MAMMOGRAM ANNUAL] of Medic ine Future Scheduled TETANUS SHOT (ADULT) [employer] [facility] [code = TETANUS SHOT [...] cine SCREENING] Future Scheduled PNEUMOVAX >=65 (PPSV23) [facility] [employer] Test [code = PNEUMOVAX >=65 of Me dicine (PPSV23)] Future Scheduled PREVNAR >= 65 (PCV13) [employer] Test [code = PREVNAR >= 65 of Med icine (PCV13)] Future Scheduled FLU VACCINE > 6 MONTHS [facility] Test [code = FLU VACCINE > 6 of M edicine MONTHS] Future Scheduled FALL SCREEN [code = [facility] Test FALL SCREEN] of Medicine Future Scheduled CBC W/AUTO DIFF WITH Ordered: [facility] Test PLATELETS [code = 11/22/2019 of Medicin e 09916-7] Future Scheduled COMPREHENSIVE METABOLIC Ordered: [facility] Test PANEL [code = 62086-7] 11/22/2019 of Me dicine Future Scheduled MAGNESIUM [code = Ordered: [facility] Test 34517-5] 11/22/2019 of Medicine Future Scheduled COLON CANCER SCREENING: [facility] Test COLONOSCOPY [code = of Medic ine COLON CANCER SCREENING: COLONOSCOPY] Future Scheduled MAMMOGRAM ANNUAL [code B [facility] Test = MAMMOGRAM ANNUAL] of Medic ine Future Scheduled TETANUS SHOT (ADULT) [employer] [facility] [code = TETANUS SHOT [...] cine SCREENING] Future Scheduled PNEUMOVAX >=65 (PPSV23) [facility] [employer] Test [code = PNEUMOVAX >=65 [...] of Medicine Future Scheduled COLON CANCER SCREENING: [facility] Test COLONOSCOPY [code = of Medic ine COLON CANCER SCREENING: COLONOSCOPY] Future Scheduled MAMMOGRAM ANNUAL [code [facility] [employer] [facility] Test = MAMMOGRAM ANNUAL] of Medic ine Future Scheduled TETANUS SHOT (ADULT) [employer] [facility] [code = TETANUS SHOT [...] cine SCREENING] Future Scheduled PNEUMOVAX >=65 (PPSV23) [facility] [employer] Test [code = PNEUMOVAX >=65 [...] FALL SCREEN] of Medicine Future Scheduled ELECTROCARDIOGRAM [facility] [employer] Test COMPLETE [code = 46037] of M edicine Future Scheduled COLON CANCER SCREENING: [facility] Test COLONOSCOPY [code = of Medic ine COLON CANCER SCREENING: COLONOSCOPY] Future Scheduled MAMMOGRAM ANNUAL [code [facility] [employer] Test = MAMMOGRAM ANNUAL] of Medic ine Future Scheduled TETANUS SHOT (ADULT) [employer] Test [code = TETANUS SHOT [...] Test FALL SCREEN] of Medicine Future Scheduled GA MED NUTR THER, 1ST, Ordered: [facility] [employer] Test INDIV, EA 15 MIN [code 12/14/2019 of Me dicine = 55616] Future Scheduled COLON CANCER SCREENING: [facility] [employer] Test COLONOSCOPY [code = of Medic ine COLON CANCER SCREENING: COLONOSCOPY] Future Scheduled MAMMOGRAM ANNUAL [code [facility] [employer] Test = MAMMOGRAM ANNUAL] of Medic ine Future Scheduled TETANUS SHOT (ADULT) [employer] [facility] [code = TETANUS SHOT [...] cine SCREENING] Future Scheduled PNEUMOVAX >=65 (PPSV23) [facility] [employer] Test [code = PNEUMOVAX >=65 [...] of Medicine Future Scheduled COLON CANCER SCREENING: [facility] [employer] Test COLONOSCOPY [code = of Medic ine COLON CANCER SCREENING: COLONOSCOPY] Future Scheduled MAMMOGRAM ANNUAL [code [facility] [employer] [facility] Test = MAMMOGRAM ANNUAL] of Medic ine Future Scheduled TETANUS SHOT (ADULT) [employer] Test [code = TETANUS SHOT [...] cine SCREENING] Future Scheduled PNEUMOVAX >=65 (PPSV23) [facility] [employer] Test [code = PNEUMOVAX >=65 of Me dicine (PPSV23)] Future Scheduled FLU VACCINE > 6 MONTHS [facility] [facility] Test [code = FLU VACCINE > 6 of M edicine MONTHS] Future Scheduled FALL SCREEN [code = [employer] [facility] FALL SCREEN] of Medicine Future Scheduled COMPREHENSIVE METABOLIC Ordered: [facility] Test PANEL [code = 30546-3] 10/04/2019 of Me dicine Future Scheduled CBC W/AUTO DIFF WITH Ordered: [facility] Test PLATELETS [code = 10/04/2019 of Medicin e 39728-5] Future Scheduled COLON CANCER SCREENING: [facility] Test COLONOSCOPY [code = of Medic ine COLON CANCER SCREENING: COLONOSCOPY] Future Scheduled VITAMIN B12 [code = Ordered: [employer] [facility] 2132-9] 10/04/2019 of Medicine Future Scheduled MAMMOGRAM ANNUAL [code B [facility] Test = MAMMOGRAM ANNUAL] of Medic ine Future Scheduled TETANUS SHOT (ADULT) [facility] Test [code = TETANUS SHOT of Medi cine (ADULT)] Future Scheduled BMI FOLLOW UP PLAN [facility] Test [code = BMI FOLLOW UP of Med icine PLAN] Future Scheduled HEPATITIS C SCREENING [facility] Test [code = HEPATITIS C of Medic ine SCREENING] Future Scheduled OSTEOPOROSIS SCREENING B [facility] Test [code = OSTEOPOROSIS of Medi cine SCREENING] Future Scheduled PNEUMOVAX >=65 (PPSV23) [facility] Test [code = PNEUMOVAX >=65 of Me dicine (PPSV23)] Future Scheduled FLU VACCINE > 6 MONTHS [facility] Test [code = FLU VACCINE > 6 of M edicine MONTHS] Future Scheduled FALL SCREEN [code = [employer] [facility] FALL SCREEN] of Medicine Future Scheduled PROTIME-INR [code = Ordered: [employer] [facility] 5902-2] 10/04/2019 of Medicine Future Scheduled CULTURE, Ordered: [facility] Test URINE/SENSITIVITY ON 10/04/2019 of Medi cine ALL [code = 52008-1] Future Scheduled COLON CANCER SCREENING: [facility] Test COLONOSCOPY [code = of Medic ine COLON CANCER SCREENING: COLONOSCOPY] Future Scheduled MAMMOGRAM ANNUAL [code B [facility] Test = MAMMOGRAM ANNUAL] of Medic ine Future Scheduled TETANUS SHOT (ADULT) [employer] Test [code = TETANUS SHOT of Medi cine (ADULT)] Future Scheduled COLON CANCER SCREENING: [facility] Test COLONOSCOPY [code = of Medic ine COLON CANCER SCREENING: COLONOSCOPY] Future Scheduled MAMMOGRAM ANNUAL [code B [facility] Test = MAMMOGRAM ANNUAL] of Medic ine Future Scheduled TETANUS SHOT (ADULT) [employer] Test [code = TETANUS SHOT [...] cine SCREENING] Future Scheduled PNEUMOVAX >=65 (PPSV23) [facility] [employer] Test [code = PNEUMOVAX >=65 [...] cine SCREENING] Future Scheduled PNEUMOVAX >=65 (PPSV23) [facility] [employer] Test [code = PNEUMOVAX >=65 of Me dicine (PPSV23)] Future Scheduled COLON CANCER SCREENING: [facility] [employer] Test COLONOSCOPY [code = of Medic ine COLON CANCER SCREENING: COLONOSCOPY] Future Scheduled MAMMOGRAM ANNUAL [code [employer] Test = MAMMOGRAM ANNUAL] of Medic ine Future Scheduled TETANUS SHOT (ADULT) [employer] Test [code = TETANUS SHOT [...] cine SCREENING] Future Scheduled PNEUMOVAX >=65 (PPSV23) [facility] [employer] Test [code = PNEUMOVAX >=65 [...] Future Scheduled CBC W/AUTO DIFF WITH Ordered: [facility] [employer] Test PLATELETS [code = 02/28/2020 of Medicin e 49308-2] Future Scheduled COMPREHENSIVE METABOLIC Ordered: [facility] Test PANEL [code = 68525-8] 02/28/2020 of Me dicine Future Scheduled MAGNESIUM [code = Ordered: [facility] College Test 35691-5] 02/28/2020 of Medicine Future Scheduled TSH [code = 70040-5] Ordered: Jay dayna [employer] Test 02/28/2020 of Medicine Future Scheduled COLON CANCER SCREENING: [facility] Test COLONOSCOPY [code = of Medic ine COLON CANCER SCREENING: COLONOSCOPY] Future Scheduled MAMMOGRAM ANNUAL [code B [facility] College Test = MAMMOGRAM ANNUAL] of Medic ine Future Scheduled TETANUS SHOT (ADULT) [facility] [employer] Test [code = TETANUS SHOT of Medi cine (ADULT)] Future Scheduled BMI FOLLOW UP PLAN [employer] Test [code = BMI FOLLOW UP of Med icine PLAN] Future Scheduled HEPATITIS C SCREENING [employer] Test [code = HEPATITIS C of Medic ine SCREENING] Future Scheduled ZOSTER VACCINE (1 of 2) [facility] [employer] Test [code = ZOSTER VACCINE of Me dicine (1 of 2)] Future Scheduled OSTEOPOROSIS SCREENING [facility] [employer] Test [code = OSTEOPOROSIS of Medi cine SCREENING] Future Scheduled PNEUMOVAX >=65 (PPSV23) [facility] [employer] Test [code = PNEUMOVAX >=65 of Me dicine (PPSV23)] Future Scheduled FLU VACCINE > 6 MONTHS [employer] Test [code = FLU VACCINE > 6 of M edicine MONTHS] Future Scheduled FALL SCREEN [code = [employer] FALL SCREEN] of Medicine Future Scheduled COLON CANCER SCREENING: [facility] Test COLONOSCOPY [code = of Medic ine COLON CANCER SCREENING: COLONOSCOPY] Future Scheduled MAMMOGRAM ANNUAL [code [employer] Test = MAMMOGRAM ANNUAL] of Medic ine Future Scheduled TETANUS SHOT (ADULT) [facility] [employer] Test [code = TETANUS SHOT of Medi cine (ADULT)] Future Scheduled BMI FOLLOW UP PLAN [employer] Test [code = BMI FOLLOW UP of Med icine PLAN] Future Scheduled HEPATITIS C SCREENING [employer] Test [code = HEPATITIS C of Medic ine SCREENING] Future Scheduled ZOSTER VACCINE (1 of 2) [facility] [employer] Test [code = ZOSTER VACCINE of Me dicine (1 of 2)] Future Scheduled OSTEOPOROSIS SCREENING [employer] Test [code = OSTEOPOROSIS of Medi cine SCREENING] Future Scheduled PNEUMOVAX >=65 (PPSV23) [facility] [employer] Test [code = PNEUMOVAX >=65 [...] Future Scheduled CBC W/AUTO DIFF WITH Ordered: [employer] dayna [employer] Test PLATELETS [code = 05/15/2020 of Medicin e 35895-7] Future Scheduled BASIC METABOLIC PANEL Ordered: [employer] Test [code = 85870-1] 05/15/2020 of Medicine Future Scheduled VITAMIN B12 [code = Ordered: [employer] 2132-9] 05/15/2020 of Medicine Future Scheduled COLON CANCER SCREENING: [facility] [employer] Test COLONOSCOPY [code = of Medic ine COLON CANCER SCREENING: COLONOSCOPY] Future Scheduled MAMMOGRAM ANNUAL [code [employer] = MAMMOGRAM ANNUAL] of Medic ine Future Scheduled TETANUS SHOT (ADULT) [employer] Test [code = TETANUS SHOT of Medi cine (ADULT)] Future Scheduled BMI FOLLOW UP PLAN [employer] Test [code = BMI FOLLOW UP of Med icine PLAN] Future Scheduled HEPATITIS C SCREENING [employer] Test [code = HEPATITIS C of Medic ine SCREENING] Future Scheduled ZOSTER VACCINE (1 of 2) [facility] [employer] Test [code = ZOSTER VACCINE of Me dicine (1 of 2)] Future Scheduled OSTEOPOROSIS SCREENING [employer] Test [code = OSTEOPOROSIS of Medi cine SCREENING] Future Scheduled PNEUMOVAX >=65 (PPSV23) [facility] [employer] Test [code = PNEUMOVAX >=65 [...] of Medicine Future Scheduled COLON CANCER SCREENING: [facility] [employer] Test COLONOSCOPY [code = of Medic ine COLON CANCER SCREENING: COLONOSCOPY] Future Scheduled MAMMOGRAM ANNUAL [code [employer] = MAMMOGRAM ANNUAL] of Medic ine Future Scheduled TETANUS SHOT (ADULT) [employer] Test [code = TETANUS SHOT of Medi cine (ADULT)] Future Scheduled BMI FOLLOW UP PLAN [employer] Test [code = BMI FOLLOW UP of Med icine PLAN] Future Scheduled HEPATITIS C SCREENING [employer] Test [code = HEPATITIS C of Medic ine SCREENING] Future Scheduled ZOSTER VACCINE (1 of 2) [facility] [employer] Test [code = ZOSTER VACCINE of Me dicine (1 of 2)] Future Scheduled OSTEOPOROSIS SCREENING [employer] Test [code = OSTEOPOROSIS of Medi cine SCREENING] Future Scheduled PNEUMOVAX >=65 (PPSV23) [facility] [employer] Test [code = PNEUMOVAX >=65 of Me dicine (PPSV23)] Future Scheduled FLU VACCINE > 6 MONTHS [employer] Test [code = FLU VACCINE > 6 of M edicine MONTHS] Future Scheduled MEDICARE IPPE (WELCOME [employer] Test TO MEDICARE) [code = of Medi cine MEDICARE IPPE (WELCOME TO MEDICARE)] Future Scheduled FALL SCREEN [code = [facility] Test FALL SCREEN] of Medicine Future Scheduled COLON CANCER SCREENING: [facility] [employer] Test COLONOSCOPY [code = of Medic ine COLON CANCER SCREENING: COLONOSCOPY] Future Scheduled MAMMOGRAM ANNUAL [code [employer] Test = MAMMOGRAM ANNUAL] of Medic ine Future Scheduled TETANUS SHOT (ADULT) [employer] Test [code = TETANUS SHOT of Medi cine (ADULT)] Future Scheduled BMI FOLLOW UP PLAN [employer] Test [code = BMI FOLLOW UP of Med icine PLAN] Future Scheduled HEPATITIS C SCREENING [employer] Test [code = HEPATITIS C of Medic ine SCREENING] Future Scheduled ZOSTER VACCINE (1 of 2) [facility] [employer] Test [code = ZOSTER VACCINE of Me dicine (1 of 2)] Future Scheduled OSTEOPOROSIS SCREENING [employer] Test [code = OSTEOPOROSIS of Medi cine SCREENING] Future Scheduled PNEUMOVAX >=65 (PPSV23) [facility] [employer] Test [code = PNEUMOVAX >=65 [...] Future Scheduled CBC W/AUTO DIFF WITH Ordered: [employer] [facility] [employer] Test PLATELETS [code = 07/27/2020 of Medicin e 05283-1] Future Scheduled COMPREHENSIVE METABOLIC Ordered: [facility] Test PANEL [code = 49070-0] 07/27/2020 of Me dicine Future Scheduled MAGNESIUM [code = Ordered: [facility] [employer] Test 53888-2] 07/27/2020 of Medicine Future Scheduled COLON CANCER SCREENING: [facility] Test COLONOSCOPY [code = of Medic ine COLON CANCER SCREENING: COLONOSCOPY] Future Scheduled COVID-19 Vaccine [facility] Test Evaluation [code = of Medici ne COVID-19 Vaccine Evaluation] Future Scheduled TETANUS SHOT (ADULT) [employer] Test [code = TETANUS SHOT of Medi cine (ADULT)] Future Scheduled HEPATITIS C SCREENING [employer] Test [code = HEPATITIS C of Medic ine SCREENING] Future Scheduled ZOSTER VACCINE (1 of 2) [facility] [employer] Test [code = ZOSTER VACCINE of Me dicine (1 of 2)] Future Scheduled OSTEOPOROSIS SCREENING [employer] Test [code = OSTEOPOROSIS of Medi cine SCREENING] Future Scheduled PNEUMOVAX >=65 (PPSV23) [facility] [employer] Test [code = PNEUMOVAX >=65 [...] Medicine Future Scheduled MAMMOGRAM ANNUAL [code [employer] Test = MAMMOGRAM ANNUAL] of Medic ine Future Scheduled COLON CANCER SCREENING: [facility] Test COLONOSCOPY [code = of Medic ine COLON CANCER SCREENING: COLONOSCOPY] Future Scheduled COVID-19 Vaccine [facility] Test Evaluation [code = of Medici ne COVID-19 Vaccine Evaluation] Future Scheduled TETANUS SHOT (ADULT) [employer] Test [code = TETANUS SHOT [...] cine SCREENING] Future Scheduled PNEUMOVAX >=65 (PPSV23) [facility] [employer] Test [code = PNEUMOVAX >=65 [...] Medic ine Future Scheduled COLON CANCER SCREENING: [facility] [employer] Test COLONOSCOPY [code = of Medic ine COLON CANCER SCREENING: COLONOSCOPY] Future Scheduled COVID-19 Vaccine [facility] [employer] Test Evaluation [code = of Medici ne COVID-19 Vaccine Evaluation] Future Scheduled TETANUS SHOT (ADULT) [employer] Test [code = TETANUS SHOT of Medi cine (ADULT)] Future Scheduled HEPATITIS C SCREENING [facility] Test [code = HEPATITIS C of Medic ine SCREENING] Future Scheduled ZOSTER VACCINE (1 of 2) [facility] [employer] Test [code = ZOSTER VACCINE of Me dicine (1 of 2)] Future Scheduled OSTEOPOROSIS SCREENING [employer] Test [code = OSTEOPOROSIS of Medi cine SCREENING] Future Scheduled PNEUMOVAX >=65 (PPSV23) [facility] [employer] Test [code = PNEUMOVAX >=65 [...] CONTRAST [code = [place] [address]-0] 10/26/2020 until 10/26/2021 Future Scheduled US RENAL BILATERAL 1 Occurrences [employer] Test [code = 18506] starting of Medicine 05/15/2020 until 05/15/[address] CHEST ABDOMEN PELVIS 1 Occurrences [facility] [employer] Test W CONTRAST [code = [place] [address]-4] 04/27/2020 until 04/27/[address] CHEST ABDOMEN PELVIS 1 Occurrences [facility] W CONTRAST [code = starting of Medici donis 43457-8] 02/28/2020 until 02/27/2021 Encounters Start End Encounter Admission Attending Care Care Encounter Source Date/Time Date/Time Type Type Clinicians Facility Department ID 2021-12-03 Outpatient ANGIE [facility] [id number] [place] 08:10:22 [facility] [id number] [place] [address] 2021-11-28 Outpatient [facility] [id number] [place] 15:34:[id number] [place] [address] 2021-11-06 Outpatient ANGIE [facility] [id number] [place] 09:16:04 [facility] [id number] [place] [address] 2021-11-05 Outpatient ANGIE [facility] [id number] [place] 07:47:43 [facility] [id number] [facility] 2021-10-30 [facility] [id number] [place] 15:17:39 [facility] [id number] [facility] 2021-08-16 Outpatient ANGIE [facility] [id number] [place] 15:22:59 [facility] 2021-08-14 Outpatient Oliver, STLMLC [facility] [id number] Common 11:01:33 Juan R [id number] [facility] 2021-04-23 Inpatient FIONA, SLE Surgery [id number] [facility] 22:51:01 [facility] 2021-04-23 Outpatient FIONA, SLE Surgery [id number] [facility] 21:51:43 [facility] 2022-07-21 2022-07-21 Outpatient BIRD PALENCIA SLE SLE [id number] SLE 00:00:00 00:00:00 2022-07-21 2022-07-21 Outpatient RALPH PALENCIAKISHORE SLEJuanjose SLE [id number] SLE 00:00:00 00:00:00 2022-04-30 2022-04-30 Outpatient BROOKLYN BARAHONA [id number] Memoria 15:15:00 15:15:00 31 lillian Ryder 2022-04-30 2022-04-30 Outpatient BROOKLYN BARAHONA [id number] Memoria 15:15:00 15:15:00 31 lillian Ryder 2022-03-28 2022-03-[address] [facility] [id number] [facility] 00:00:00 23:59:00 Ayleen 2022-03-19 2022-03-[address] [id number] Memoria 14:30:00 14:30:00 30 lillian Ryder 2022-03-19 2022-03-19 Outpatient BROOKLYN BARAHONA [id number] Memoria 14:30:00 14:30:00 [address] [facility] 2022-03-18 2022-03-18 Outpatient BIRD PALENCIA [facility] SLEH [id number] SLEH 14:17:42 23:59:00 2022-03-18 2022-03-18 [facility] [id number] [id number] 11:00:00 23:59:00 Encounter [facility] 2022-03-18 2022-03-18 [facility] Bird Yen [facility] [id number] 11:00:00 23:59:00 Encounter [facility] 2022-03-18 2022-03-18 Surgery Virtual, [facility] [id number] 11:00:00 11:30:00 [facility] 2022-03-18 2022-03-18 [facility], [facility] [id number] 11:00:00 11:30:00 [facility] 2022-03-18 2022-03-18 [facility] Bird Yen [facility] [id number] [id number] 09:02:00 11:10:00 Encounter [facility] 2022-03-18 2022-03-18 Outpatient BIRD TORRES [facility] Surgery [id number] SLEH 09:02:00 11:10:00 2022-03-18 2022-03-18 [facility] Bird Yen [facility] [id number] [id number] 09:02:00 11:10:00 Encounter [facility] 2022-02-18 2022-02-18 Office GUILLERMINA JAIMES 1.2.840.114 [id number] [facility] 13:31:03 16:12:27 Visit VITA AMBULATOR 350.1.13.21 College Y 0.2.7.2.686 of [id number] [facility] khushi 300 e 2022-02-17 2022-02-17 Outside FarshadBird [facility] [id number] 00:00:00 00:00:00 [facility] 2022-02-17 2022-02-17 Outside Farshad Bird [facility] [id number] 00:00:00 00:00:00 [facility] 2022-02-14 2022-02-[address] [facility] [id number] [facility] 13:12:45 23:59:00 Colleg e of Medicin e 2022-02-14 2022-02-14 Office WADEOMAR De Los Santos [facility] 1.2.840.114 [id number] [facility] 10:42:48 12:25:10 Visit Seymour 350.1.13.21 Co llege 0.2.7.2.686 of [id number] [facility] khushi 504 e 2022-02-05 2022-02-05 Outpatient MHIE MHIE [id number] Memoria 14:00:00 14:00:00 29 l [facility] 2022-02-05 2022-02-05 Outpatient MHIE BROOKLYN [id number] Memoria 14:00:00 14:00:00 29 lillian [facility] 2022-02-04 2022-02-04 [facility] Bird Yen [facility] [id number] 10:31:06 23:59:00 Encounter [facility] 2022-02-04 2022-02-04 Outpatient [facility] [id number] SLE 10:31:06 23:59:00 2022-02-04 2022-02-04 [facility] Bird Yen [facility] [id number] 10:31:06 23:59:00 Encounter 1, [facility] [address] Room [facility] 2022-02-04 2022-02-04 [facility] Bird Yen [facility] [id number] 10:30:58 10:30:58 Encounter 1, [facility] [address] Room [facility] 2022-02-04 2022-02-04 Outpatient BIRD YEN [facility] SLE [id number] SLEH 10:30:58 10:30:58 2022-02-04 2022-02-04 [facility] Bird Yen [facility] [id number] 10:30:58 10:30:58 [facility] 2021-12-27 2021-12-[address] [facility] [id number] [facility] 08:52:58 23:59:00 Colleg e of Medicin e 2021-12-25 2021-12-25 Outpatient MHIE MHIE [id number] Memoria 14:00:00 14:00:00 28 l [facility] 2021-12-25 2021-12-25 Outpatient MHIE MHIE [id number] Memoria 14:00:00 14:00:00 28 l [facility] 2021-11-15 2021-11-[address] [facility] [id number] [facility] 09:45:31 23:59:00 Colleg e of Medicin e 2021-11-15 2021-11-15 Office OMAR YEN [facility] 1.2.840.114 [id number] [facility] 10:23:51 11:26:45 Visit Seymour 350.1.13.21 Co llege 0.2.7.2.686 of [id number] Medi khushi 504 e 2021-11-15 2021-11-15 Outside Bird Yen [facility] [id number] 00:00:00 00:00:00 [facility] 2021-11-15 2021-11-15 Outside Bird Yen [facility] [id number] 00:00:00 00:00:00 [facility] 2021-10-29 2021-10-29 [facility] [id number] 12:33:36 23:59:00 Encounter [facility] 2021-10-29 2021-10-29 Outpatient BIRD PALENCIA SLE SLEH [id number] SLEH 12:33:36 23:59:00 2021-10-29 2021-10-29 [facility] [id number] 12:33:36 23:59:00 Encounter [facility] 2021-10-29 2021-10-29 [facility] [id number] 12:33:25 23:59:00 Encounter [facility] 2021-10-29 2021-10-29 [facility] Bird [facility] [id number] 12:33:25 23:59:00 Encounter [facility] 2021-10-29 2021-10-29 Outpatient BIRD PALENCIA SLEJuanjose SLEH [id number] SLEH 12:33:25 23:59:00 2021-10-22 2021-10-22 Outpatient BIRD PALENCIA SLEH SLEH [id number] SLEH 00:00:00 00:00:00 2021-10-22 2021-10-22 Outpatient BIRD PALENCIA SLEH SLEH [id number] SLEH 00:00:00 00:00:00 2021-10-04 2021-10-[address] [facility] [id number] [facility] 09:51:39 23:59:00 Ayleen 2021-09-24 2021-09-24 Outpatient BROOKLYN BARAHONA [id number] Memoria 10:15:00 10:15:00 27 lillian Ryder 2021-09-24 2021-09-24 Outpatient MHIE MHIE [id number] Memoria 10:15:00 10:15:00 27 l [facility] 2021-09-17 2021-09-17 Office GUILLERMINA POOLE 1.2.840.114 [id number] [facility] 14:01:28 15:17:27 Visit CHRISTOPHER AMBULATOR 350.1.13.21 College Y 0.2.7.2.686 of [id number] [facility] khushi 300 e 2021-08-22 2021-08-22 Outside WadeBird de los santos [facility] [id number] 00:00:00 00:00:00 Orders [facility] 2021-08-22 2021-08-22 Outside Bird Yen [facility] [id number] 00:00:00 00:00:00 [facility] 2021-08-16 2021-08-[address] [facility] [id number] [facility] 11:25:49 23:59:00 Colleg e of Medicin e 2021-08-16 2021-08-16 Office OMAR YEN [facility] 1.2.840.114 [id number] [facility] 09:51:36 11:22:06 Visit Seymour 350.1.13.21 Co llege 0.2.7.2.686 of [id number] [facility] khushi 504 e 2021-08-14 2021-08-14 Outpatient MHIE ELMIRAIE [id number] Memoria 16:00:00 16:00:00 26 l [facility] 2021-08-14 2021-08-14 Outpatient MHIE MHIE [id number] Memoria 16:00:00 16:00:00 26 l [facility] 2021-08-08 2021-08-08 Office GUILLERMINA JAIMES 1.2.840.114 [id number] [facility] 10:37:20 11:15:47 Visit VITA AMBULATOR 350.1.13.21 College Y 0.2.7.2.686 of [id number] [facility] khushi 300 e 2021-07-29 2021-07-29 [facility] YeBird de los santos [facility] [id number] 12:33:58 23:59:00 Encounter 1, [facility] [address] Room [facility] 2021-07-29 2021-07-29 [facility] Bird Yen [facility] [id number] 12:33:58 23:59:00 Encounter 1, [facility] [address] Room [facility] 2021-07-29 2021-07-29 Outpatient BIRD PALENCIA [facility] SLE [id number] SLEH 12:33:58 23:59:00 2021-07-29 2021-07-29 [id number] 12:33:51 23:59:00 [facility] 2021-07-29 2021-07-29 [facility] Bird Palencia [facility] [id number] 12:33:51 23:59:00 Encounter 1, [facility] [address] Room [facility] 2021-07-29 2021-07-29 Outpatient BIRD PALENCIA SLE SLE [id number] SLEH 12:33:51 23:59:00 2021-07-04 2021-07-04 Ambulatory nullFlavo MNA [id number] Memoria 20:00:00 20:00:00 Pre-Reg r Neurology 25 l [place] Aleksey 2021-07-04 2021-07-04 Ambulatory nullFlavo MNA [id number] Memoria 20:00:00 20:00:00 Pre-Reg r Neurology 25 l Rhiannon Ryder 2021-07-04 2021-07-04 Outpatient BROOKLYN BARAHONA [id number] Memoria 14:00:00 14:00:00 25 l Aleksey 2021-07-04 2021-07-04 Outpatient LUISA Campos [id number] 14:00:00 14:00:00 Michael Colon 2021-06-26 2021-06-26 Outpatient ALEC MOSER [facility] [id number] [facility]:30[facility] 2021-05-24 Outpatient nullFlavo MNA [id number] Memoria 15:15:00 04:59:59 r Neurology 24 l Rhiannon Ryder 2021-05-23 2021-05-24 Outpatient nullFlavo MNA [id number] Memoria 15:15:00 04:59:59 r Neurology 24 l Rhiannon Ryder 2021-05-23 2021-05-23 Outpatient EVERARDO CamposSCHER MISCHER [id number] 10:15:00 23:59:59 Michael 24 Isaiah 2021-05-23 2021-05-23 Outpatient MHIE ELMIRAIE [id number] Memoria 10:15:00 10:15:00 24 l Aleksey 2021-05-10 2021-05-10 Outside Bird Yen [facility] [id number] [facility] 00:00:00 00:00:00 [facility] 2021-05-08 2021-05-08 Ambulatory nullFlavo MNA [id number] Memoria 19:15:00 19:15:00 Pre-Reg r Neurology 23 l Rhiannon Ryder 2021-05-08 2021-05-08 Ambulatory nullFlavo MNA [id number] Memoria 19:15:00 19:15:00 Pre-Reg r Neurology 23 l Rhiannon Ryder 2021-05-08 2021-05-08 Outpatient MHIE ELMIRAIE [id number] Memoria 14:15:00 14:15:00 23 l Aleksey 2021-05-08 2021-05-08 [id number] 14:15:00 14:15:00 Michael 23 Isaiah 2021-05-07 2021-05-[address] [facility] [id number] [facility] 15:09:13 23:59:00 Juve Medicin e 2021-05-07 2021-05-07 Office OMAR YEN [facility] 1.2.840.114 [id number] [facility] 14:13:49 16:00:26 Visit Seymour 350.1.13.21 Co llege 0.2.7.2.686 [id number] Medi khushi 504 e 2021-05-03 2021-05-03 [facility] Bird Yen [facility] [id number] [id number] 10:46:33 23:59:00 Encounter [facility] 2021-05-03 2021-05-03 Outpatient BIRD PALENCIA SLE SLE [id number] SLEH 10:46:33 23:59:00 2021-05-03 2021-05-03 [facility] Ralph YenKishore [facility] [id number] 10:46:26 23:59:00 Encounter [facility] 2021-05-03 2021-05-03 Outpatient BIRD YEN [facility] SLE [id number] SLE 10:46:26 23:59:00 2021-04-05 2021-04-05 [facility] Bird Yen [facility] [id number] 00:00:00 00:00:00 [facility] 2021-03-19 2021-03-[address] [facility] [id number] [facility] 14:16:56 23:59:00 Juve Medicin e 2021-03-13 2021-03-14 Outpatient nullFlavo MNA [id number] Memoria 20:00:00 04:59:59 r Neurology 21 l Rhiannon Ryder 2021-03-13 2021-03-14 Outpatient nullFlavo MNA [id number] [facility] 20:00:00 04:59:59 r Neurology 21 l Rhiannon Ryder 2021-03-13 2021-03-13 Outpatient LUISA Campos [id number] 15:00:00 23:59:59 Michael 21 Isaiah 2021-03-13 2021-03-13 Outpatient BROOKLYN BARAHONA [id number] Memoria 15:00:00 15:00:00 21 l Aleksey 2021-02-01 2021-02-02 Outpatient nullFlavo MNA [id number] Memoria 16:30:00 04:59:59 r Neurology 22 l Rhiannon Ryder 2021-02-01 2021-02-02 Outpatient nullFlavo MNA [id number] Memoria 16:30:00 04:59:59 r Neurology 22 l Rhiannon Ryder 2021-02-01 2021-02-01 Out[facility] [id number] 11:30:00 23:59:59 Michael 22 Isaiah 2021-02-01 2021-02-01 Outpatient MHIE DOMENIC [id number] Memoria 11:30:00 11:30:00 22 l [facility] 2021-01-29 2021-01-29 [facility] [id number] [facility] 13:53:55 23:59:00 Colleg e of Medicin e 2021-01-29 2021-01-29 Office FarshadOmar [facility] 1.2.840.114 [id number] [facility] 12:18:28 14:06:37 Visit Eyad Ahuja 350.1.13.21 Co llege 0.2.7.2.686 of [id number] Medi khushi 530 e 2021-01-29 2021-01-29 Office GUILLERMINA Jaimes [id number] [facility] 13:10:51 13:25:51 Visit [facility]ULATOR 350.1.13.21 College Y 0.2.7.2.686 of [id number] Medi khushi 300 e 2021-01-18 2021-01-18 Outpatient FARSHADRALPHKISHORE [facility] SLE [id number] SLE 00:00:00 00:00:00 2021-01-18 2021-01-18 Outpatient EL WADERALPH [facility]KISHORE [facility] [id number] [facility] 00:00:00 00:00:00 2021-01-09 2021-01-10 Outpatient nullFlavo MNA [id number] [facility] 14:30:00 04:59:59 r Neurology 20 l Rhiannon Smithann 2021-01-09 2021-01-10 Outpatient nullFlavo MNA [id number] [facility] 14:30:00 04:59:59 r Neurology 20 l Rhiannon Ryder 2021-01-09 2021-01-09 Outpatient LUISA Campos [facility] [id number] 09:30:00 23:59:59 Michael Xander Colon 2021-01-09 2021-01-09 Outpatient MHIE MHIE [id number] Memoria 09:30:00 09:30:00 20 l Aleksey 2020-12-18 2020-12-18 Office GUILLERMINA Poole 1.2.840.114 [id number] [facility] 14:58:39 15:08:39 Visit Christopher AMBULATOR 350.1.13.21 College P Y 0.2.7.2.686 of 436.1625151 [facility] khushi 300 e 2020-12-18 2020-12-18 Outpatient BIRD PALENCIA SLEJuanjose SLEH [id number] SLEH 00:00:00 00:00:00 2020-12-18 2020-12-18 Outpatient BIRD YEN SLEJuanjose SLEH [id number] SLEH 00:00:00 00:00:00 2020-12-18 2020-12-18 Outpatient BIRD PALENCIA SLEJuanjose SLEH [id number] SLEH 00:00:00 00:00:00 2020-11-15 2020-11-15 Office GUILLERMINA Poole 1.2.840.[id number] [place] [address] 10:12:07 10:22:07 Visit Christopher AMBULATOR 350.1.13.21 College P Y 0.2.7.2.686 of 021.2132866 [facility] khushi 300 e 2020-11-06 2020-11-07 Outpatient nullFlavo MNA [id number] Memoria 19:15:00 04:59:59 r Neurology 19 l Rhiannon Ryder 2020-11-06 2020-11-07 Outpatient nullFlavo MNA [id number] Memoria 19:15:00 04:59:59 r Neurology 19 l Rhiannon Ryder 2020-11-06 2020-11-06 Outpatient LUISA Campos [facility] [id number] 14:15:00 23:59:59 Michael Rodolfo Colon 2020-11-06 2020-11-06 Outpatient ELMIRAIE BROOKLYN [id number] Memoria 14:15:00 14:15:00 19 l Aleksey 2020-10-26 2020-10-26 Office Omar Yen [facility] 1.2.840.114 [id number] [facility] 11:30:32 13:39:35 Visit Eyad Seymour 350.1.13.21 Co llege 0.2.7.2.686 of [id number] Medi khushi 530 e 2020-10-05 2020-10-05 Orders Doctor MANNY 1.2.840.114 [id number] Univers 00:00:00 00:00:00 Only Unassigned, JORGE LUIS 350.1.13.10 ity of [employer] [facility] 4.2.7.2.686 Jan as [phone] Medi mariama 009 Branch 2020-10-05 2020-10-05 Orders Doctor MANNY 1.2.840.114 [id number] 00:00:00 00:00:00 Only Unassigned, JORGE LUIS 350.1.13.10 [employer] [facility] 4.2.7.2.686 [id number] 009 2020-10-04 2020-10-04 Office GUILLERMINA Jaimes 1.2.840.114 [id number] [facility] 10:09:01 10:24:01 Visit Vita P AMBULATOR 350.1.13.21 College Y 0.2.7.2.686 of 719.7286771 Medi khushi 300 e 2020-10-04 2020-10-04 Office GUILLERMINA Poole 1.2.840.114 [id number] [facility] 10:08:44 10:18:44 Visit Adolpher AMBULATOR 350.1.13.21 College P Y 0.2.7.2.686 of [id number] Medi khushi 300 e 2020-10-04 2020-10-04 Outpatient BIRD PALENCIA [facility] [id number] SLE 00:00:00 00:00:00 2020-10-04 2020-10-04 Outpatient BIRD YEN [facility] [id number] SLE 00:00:00 00:00:00 2020-09-24 2020-09-26 Outside nullFlavo MNA [id number] Memoria 16:19:27 05:59:59 Medical r Neurology 04 l Records Rhiannon Ryder 2020-09-24 2020-09-26 Outside nullFlavo MNA [id number] Memoria 16:19:27 05:59:59 Medical r Neurology 04 l Records Rhiannon Ryder 2020-09-24 2020-09-25 [facility] [id number] 10:19:27 23:59:59 04 2020-09-11 2020-09-13 Outside nullFlavo MNA [id number] Memoria 20:49:36 05:59:59 Medical r Neurology 03 l Records Rhiannon Ryder 2020-09-11 2020-09-13 Outside nullFlavo MNA [id number] Memoria 20:49:36 05:59:59 Medical r Neurology 03 l Records Rhiannon Ryder 2020-09-11 2020-09-12 [facility] [id number] 14:49:36 23:59:59 03 2020-09-07 2020-09-07 Office GUILLERMINA Poole 1.2.840.[id number] [place] [address] 14:53:39 15:03:39 [facility] AMBULATOR 350.1.13.21 [place] Y 0.2.7.2.686 [id number] Medi khushi 300 e 2020-09-05 2020-09-06 Outpatient nullFlavo MNA [id number] Memoria 19:15:00 05:59:59 r Neurology 18 l Rhiannon Ryder 2020-09-05 2020-09-06 Outpatient nullFlavo MNA [id number] Memoria 19:15:00 05:59:59 r Neurology 18 l Rhiannon Ryder 2020-09-05 2020-09-05 Outpatient [facility] [id number] 13:15:00 23:59:59 Michael 18 Isaiah 2020-09-05 2020-09-05 Ambulatory nullFlavo MNA [id number] Memoria 19:15:00 19:15:00 Pre-Reg r Neurology 17 l Rhiannon Ryder 2020-09-05 2020-09-05 Ambulatory nullFlavo MNA [id number] Memoria 19:15:00 19:15:00 Pre-Reg r Neurology 17 l Rhiannon Ryder 2020-09-05 2020-09-05 Outpatient MHIE MHIE [id number] Memoria 13:15:00 13:15:00 17 l Aleksey 2020-09-05 2020-09-05 Outpatient MHIE MHIE [id number] Memoria 13:15:00 13:15:00 18 l Aleksey 2020-09-05 2020-09-05 Outpatient Andres, [facility] [id number] 13:15:00 13:15:00 Michael Colon 2020-08-07 2020-08-09 Outside nullFlavo MNA [id number] Memoria 17:59:06 05:59:59 Medical r Neurology 02 l Records Rhiannon Ryder 2020-08-07 2020-08-09 Outside nullFlavo MNA [id number] Memoria 17:59:06 05:59:59 Medical r Neurology 02 l Records Rhiannon Ryder 2020-08-07 2020-08-08 Outpatient MHMISCHER M[facility]ISCHER [id number] 11:59:06 23:59:59 02 2020-08-03 2020-08-03 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 1.2.840.114 [id number] 13:07:52 13:22:52 Visit [place] 350.1.13.10 [place] 4.2.7.2.686 Professio [phone] [address] 2020-08-03 2020-08-03 Outpatient R ALEC FOSS [facility] [id number] [facility] 13:00:00 13:00:00 ity [facility] 2020-08-02 2020-08-02 Office GUILLERMINA Jaimes 1.2.840.114 [id number] [facility] 09:42:31 09:57:31 Visit Vita Grant AMBULATOR 350.1.13.21 College Y 0.2.7.2.686 of 842.1265646 [facility] 300 e 2020-07-27 2020-07-27 Office WadefilibertoOmar [facility] 1.2.840.114 [id number] [id number] [facility] 11:15:40 12:55:05 Visit Eyad Seymour 350.1.13.21 Co llege 0.2.7.2.686 of 032.8970346 [facility] 530 e 2020-07-25 2020-07-26 Outpatient nullFlavo MNA [id number] Memoria 17:15:00 05:59:59 r Neurology 16 l Rhiannon [facility] 2020-07-25 2020-07-26 Outpatient nullFlavo MNA [id number] Mem[facility] 17:15:00 05:59:59 r Neurology 16 l Rhiannon Ryder 2020-07-25 2020-07-25 Outpatient Andres [facility] [id number] 11:15:00 23:59:59 Michael 16 Isaiah 2020-07-25 2020-07-25 Outpatient MHIE MHIE [id number] Memoria 11:15:00 11:15:00 16 lillian [facility] 2020-07-19 2020-07-19 [facility] Alec Foss [facility] 1.2.840.114 [id number] [facility] 10:46:59 23:59:00 Encounter [place] 350.1.13.10 ity [facility] 4.2.7.2.686 [facility] [id number] [facility] [address] 2020-07-19 2020-07-19 [facility] Alec Foss [facility] 1.2.840.114 [id number] 10:46:59 23:59:00 Encounter [place] 350.1.13.10 [place] 4.2.7.2.686 [place] [id number] 80 2020-07-19 2020-07-19 [facility] Alec Foss [facility] 1.2.840.114 [id number] [facility] 10:45:33 10:45:33 Encounter [place] 350.1.13.10 ity of [place] 4.2.7.2.686 [facility] [id number] [facility] [address] 2020-07-19 2020-07-19 [facility] Alec Foss [facility] 1.2.840.114 [id number] 10:45:33 10:45:33 Encounter [place] 350.1.13.10 [place] 4.2.7.2.686 [place] [id number] 800 2020-07-19 2020-07-19 [facility] Alec Foss [facility] 1.2.840.114 [id number] [facility] 10:45:01 10:45:01 Encounter [place] 350.1.13.10 ity of [place] 4.2.7.2.686 [facility] [id number] [facility] [address] 2020-07-19 2020-07-19 [facility] Alec Foss [facility] 1.2.840.114 [id number] 10:45:01 10:45:01 Encounter [place] 350.1.13.10 [place] 4.2.7.2.686 [place] [id number] 80 2020-07-19 2020-07-19 Outpatient R ALEC FOSS [facility] [id number] Univers 00:00:00 00:00:00 ity of [facility] 2020-07-19 2020-07-19 Orders Doctor MANNY 1.2.840.114 [id number] Univers 00:00:00 00:00:00 Only Unassigned, JORGE LUIS 350.1.13.10 ity of [employer] [facility] 4.2.7.2.686 Jan [phone] [facility] [address] 2020-07-19 2020-07-19 Orders Doctor MANNY 1.2.840.114 [id number] 00:00:00 00:00:00 Only Unassigned, JORGE LUIS 350.1.13.10 [employer] [facility] 4.2.7.2.686 [id number] 009 2020-07-17 2020-07-17 Outpatient BIRD YEN [facility] [id number] SLE 00:00:00 00:00:00 2020-07-17 2020-07-17 Outpatient BIRD PALENCIA [facility] [id number] SLE 00:00:00 00:00:00 2020-06-25 2020-06-25 Outpatient ALEC MOSER [facility] [id number] Univers 14:00:00 14:00:00 ity of [facility] 2020-06-25 2020-06-25 Orders Doctor MANNY 1.2.840.114 [id number] [facility] 00:00:00 00:00:00 Only Unassigned, JORGE LUIS 350.1.13.10 ity of [employer] [facility] 4.2.7.2.686 Jan as [phone] [address] 2020-06-25 2020-06-25 Orders Doctor MANNY 1.2.840.114 [id number] 00:00:00 00:00:00 Only Unassigned, JORGE LUIS 350.1.13.10 [employer] [facility] 4.2.7.2.686 [id number] 009 2020-06-21 2020-06-22 Outpatient nullFlavo MNA [id number] Memoria 19:45:00 05:59:59 r Neurology 15 l Rhiannon Ryder 2020-06-21 2020-06-22 Outpatient nullFlavo MNA [id number] Memoria 19:45:00 05:59:59 r Neurology 15 l Rhiannon Ryder 2020-06-21 2020-06-21 Outpatient LUISA CamposMISCHCARLOS [id number] 13:45:00 23:59:59 Michael 15 Isaiah 2020-06-21 2020-06-21 Outpatient ELMIRAIE ELMIRAIE [id number] Memoria 13:45:00 13:45:00 15 lillian Ryder 2020-06-07 2020-06-07 Office GUILLERMINA Jaimes 1.2.840.[id number] [place] [address] 08:15:55 08:30:55 Visit Vita P AMBULATOR 350.1.13.21 College Y 0.2.7.2.686 of [id number] [facility] 300 e 2020-06-07 2020-06-07 Office GUILLERMINA Jaimes 1.2.840.114 [id number] 08:15:55 08:30:55 Visit Vita P AMBULATOR 350.1.13.21 Y 0.2.7.2.686 [id number] 300 2020-05-15 2020-05-15 Office GUILLERMINA Jaimes 1.2.840.114 [id number] [facility] 14:31:10 15:54:25 Visit Vita P AMBULATOR 350.1.13.21 College Y 0.2.7.2.686 of [id number] Medi khushi 300 e 2020-05-15 2020-05-15 Office GUILLERMINA Jaimes 1.2.840.114 [id number] 14:31:10 15:54:25 Visit Vita P AMBULATOR 350.1.13.21 Y 0.2.7.2.686 [id number] 300 2020-05-10 2020-05-11 Outpatient nullFlavo MNA [id number] Memoria 18:45:00 04:59:59 r Neurology 14 l Rhiannon Ryder 2020-05-10 2020-05-11 Outpatient nullFlavo MNA [id number] Memoria 18:45:00 04:59:59 r Neurology 14 l Rhiannon Ryder 2020-05-10 2020-05-10 Outpatient Andrse MISCHER MHMISCHER [id number] 13:45:00 23:59:59 Michael 14 Isaiah 2020-05-10 2020-05-10 Outpatient MHIE MHIE [id number] Memoria 13:45:00 13:45:00 14 l Aleksey 2020-04-27 2020-04-27 Office Omar Yen [facility] 1.2.840.114 [id number] [facility] 14:24:21 15:32:04 Visit Edjanine Seymour 350.1.13.21 Co llege 0.2.7.2.686 of [id number] Medi khushi 530 e 2020-04-27 2020-04-27 Office Omar Yen [facility] 1.2.840.114 [id number] 14:24:21 15:32:04 Visit Edjanine Seymour 350.1.13.21 0.2.7.2.686 [id number] 530 2020-04-25 2020-04-25 Outpatient BIRD YEN SLE SLE [id number] SLEH 00:00:00 00:00:00 2020-04-25 2020-04-25 Outpatient MILAN YEN, BIRD SLE SLEH [id number] SLEH 00:00:00 00:00:00 2020-04-05 2020-04-05 Outpatient YEN, BIRD SLEH SLEH [id number] SLEH 00:00:00 00:00:00 2020-04-05 2020-04-05 Outpatient EL YEN, BIRD SLEH SLEH [id number] SLEH 00:00:00 00:00:00 2020-03-27 2020-03-27 Outpatient YEN, BIRD SLE SLEH [id number] SLEH 00:00:00 00:00:00 2020-03-27 2020-03-27 Outpatient EL YEN, BIRD SLE SLEH [id number] [id number] SLEH 00:00:00 00:00:00 2020-03-27 2020-03-27 Outpatient EL YEN, BIRD SLE SLEH [id number] SLEH 00:00:00 00:00:00 2020-03-27 2020-03-27 Outpatient YEN, BIRD SLE SLEH [id number] SLEH 00:00:00 00:00:00 2020-02-28 2020-02-28 Office Omar Yen [facility] 1.2.840.114 [id number] [id number] [facility] 11:09:47 12:43:20 Visit Eyad Ahuja 350.1.13.21 Co llege 0.2.7.2.686 of [id number] [facility] 530 e 2020-02-28 2020-02-28 Office Omar Yen [facility] 1.2.840.114 [id number] [id number] 11:09:47 12:43:20 Visit Eyad Ahuja 350.1.13.21 0.2.7.2.686 [id number] 530 2020-02-21 2020-02-21 Office GUILLERMINA Jaimes 1.2.840.114 [id number] [facility] 15:30:00 15:45:00 Visit Vita Grant AMBULATOR 350.1.13.21 College Y 0.2.7.2.686 of 115.4445960 Medi khushi 300 e 2020-02-21 2020-02-21 Office GUILLERMINA Jaimes 1.2.840.114 [id number] 15:30:00 15:45:00 Visit Vita P AMBULATOR 350.1.13.21 Y 0.2.7.2.686 [id number] 300 2020-01-27 2020-01-27 Outpatient EL SLEH SLEH [id number] SLEH 00:00:00 00:00:00 2020-01-17 2020-01-17 Office Nestor Fuentes BCM 1.2.840. 114 [id number] [facility] 08:19:54 08:49:54 Visit C-Arm, Pmr Siemens AMBULATOR 350.1.13. 21 College Y 0.2.7.2.686 of 467.0985949 [facility] khushi 800 e 2020-01-17 2020-01-17 Office Nestor Fuentes BC 1.2.840. 114 [id number] 08:19:54 08:49:54 Visit C-Arm, Pmr Siemens AMBULATOR 350.1.13. 21 Y 0.2.7.2.686 [id number] 800 2020-01-17 2020-01-17 Outpatient EL SLEH SLEH [id number] SLEH 00:00:00 00:00:00 2020-01-10 2020-01-10 Office Omar Yen [facility] 1.2.840.114 [id number] [id number] [facility] 09:17:20 10:09:32 Visit Edjanine Seymour 350.1.13.21 Co llege 0.2.7.2.686 of 766.7763099 Medi khushi 530 e 2020-01-10 2020-01-10 Office Omar Yen [facility] 1.2.840.114 [id number] [id number] 09:17:20 10:09:32 Visit Edjanine Seymour 350.1.13.21 0.2.7.2.686 [id number] 530 2020-01-06 2020-01-06 Ancillary 1.2.840.4 [id number] 75093 [facility] 15:34:38 19:30:50 Procedure 03072.1.1 Co llege 3.210.2.7 of .3.097932 Medici n .8 e 2020-01-06 2020-01-06 Office Giancarlo Doherty 1.2.840.9 [id number] [facility] 12:54:16 17:06:02 Visit 69542.1.1 Shanel ege 3.210.2.7 of .3.947689 Medici n .8 e 2020-01-06 2020-01-06 Office Giancarlo Doherty [facility] 1.2.840.114 [id number] 12:54:16 15:16:58 Visit AMBULATOR 350.1.13.21 Y 0.2.7.2.686 [id number] 800 2020-01-06 2020-01-06 Telephone Omar Yen 1.2.840.5 [id number] [facility] 00:00:00 00:00:00 Edward 55660.1.1 Shanel ege 3.210.2.7 of .3.022861 Medici n .8 e 2020-01-06 2020-01-06 Abstract Giancarlo Doherty 1.2.840.9 [id number] [facility] 00:00:00 00:00:00 58374.1.1 Shanel ege 3.210.2.7 of .3.959681 Medici n .8 e 2020-01-06 2020-01-06 Abstract Giancarlo Doherty 1.2.840.0 [id number] [facility] 00:00:00 00:00:00 25152.1.1 Shanel ege 3.210.2.7 of .3.568944 Medici n .8 e 2020-01-06 2020-01-06 Travel 1.2.840.1 1.2.970.350 5724 5587 [facility] 00:00:00 00:00:00 00650.1.1 350.1.13.21 College 3.210.2.7 0.2.7.3.698 of .3.223008 084.8 Medici n .8 e 2020-01-06 2020-01-06 Telephone Fiona 1Hyacinth2.840.0 [id number] 760 56350 [facility] 00:00:00 00:00:00 Vita P 01816.1.1 Shanel ege 3.210.2.7 of .3.327399 Medici n .8 e 2020-01-05 2020-01-05 Telephone Fiona, 1.2.840.1 [id number] 760 18781 [facility] 00:00:00 00:00:00 Vita P 74365.1.1 Shanel ege 3.210.2.7 of .3.703320 Medici n .8 e 2020-01-05 2020-01-05 Orders Fiona, 1.2.840.4 [id number] 524 [facility] 00:00:00 00:00:00 Only Vita P 55104.1.1 Shanel ege 3.210.2.7 of .3.297203 Medici n .8 e 2020-01-04 2020-01-04 Travel 1.2.840.1 1.2.925.922 1858 2884 [facility] 00:00:00 00:00:00 78411.1.1 350.1.13.21 College 3.210.2.7 0.2.7.3.698 of .3.519794 084.8 Medici n .8 e 2019-12-29 2019-12-29 Abstract Fiona, 1.2.840.2 [id number] 7587 8511 [facility] 00:00:00 00:00:00 Vita P 14064.1.1 Shanel ege 3.210.2.7 of .3.339931 Medici n .8 e 2019-12-29 2019-12-29 Abstract Fiona, 1.2.840.7 [id number] 7587 8484 [facility] 00:00:00 00:00:00 Vita P 47412.1.1 Shanel ege 3.210.2.7 of .3.427090 Medici n .8 e 2019-12-27 2019-12-27 Outpatient FARSHADFRANCESAndreaKISHORE SLE SLEH [id number] SLEH 00:00:00 00:00:00 2019-12-27 2019-12-27 Outpatient EL BIRD YEN SLE SLE [id number] SLEH 00:00:00 00:00:00 2019-12-23 2019-12-23 Telephone Omar Yen 1.2.840.9 [id number] [facility] 00:00:00 00:00:00 Edward 72276.1.1 Shanel ege 3.210.2.7 of .3.937472 Medici n .8 e 2019-12-20 2019-12-20 Hospital 13, Bcc 1.2.840.3 [id number] 7547 3446 [facility] 09:51:46 23:59:00 Encounter Chair 70586.1.1 Co llege 3.210.2.7 of .3.275434 Medici n .8 e 2019-12-20 2019-12-20 Office Omar Yen 1.2.840.8 [id number] [facility] 08:33:43 10:00:25 Visit Edward 52947.1.1 Shanel ege 3.210.2.7 of .3.747313 Medici n .8 e 2019-12-20 2019-12-20 Travel 1.2.840.1 1.2.170.453 7133 9337 [facility] 00:00:00 00:00:00 95660.1.1 350.1.13.21 College 3.210.2.7 0.2.7.3.698 of .3.521465 084.8 Medici n .8 e 2019-12-20 2019-12-20 Orders Omar Yen 1.2.840.9 [id number] [facility] 00:00:00 00:00:00 Only Edward 02064.1.1 Shanel ege 3.210.2.7 of .3.377753 Medici n .8 e 2019-12-19 2019-12-19 Ancillary 1.2.840.0 [id number] 756 28930 [facility] 07:37:46 10:52:13 Procedure 32533.1.1 Co llege 3.210.2.7 of .3.053906 Medici n .8 e 2019-12-13 2019-12-19 Office Davontadan, 1.2.840.2 [id number] 754 04014 [facility] 13:53:26 09:40:45 Visit Shun 91595.1.1 Shanel ege 3.210.2.7 of .3.935407 Medici n .8 e 2019-12-19 2019-12-19 Ancillary 1.2.840.4 [id number] 756 69499 [facility] 07:37:33 09:27:36 Procedure 44103.1.1 Co llege 3.210.2.7 of .3.288457 Medici n .8 e 2019-12-19 2019-12-19 Travel 1.2.840.1 1.2.990.351 8600 1217 [facility] 00:00:00 00:00:00 08889.1.1 350.1.13.21 College 3.210.2.7 0.2.7.3.698 of .3.520501 084.8 Medici n .8 e 2019-12-16 2019-12-16 Telephone Devlin, 1.2.840.7 [id number] 756 57714 [facility] 00:00:00 00:00:00 Manny Leos 98454.1.1 Co llege 3.210.2.7 of .3.214939 Medici n .8 e 2019-12-13 2019-12-13 Office DiamanteericGUILLERMINA almaraz 1.2.997.068 7001 7290 13:53:26 14:53:26 Visit Shun AMBULATOR 350.1.13.21 Y 0.2.7.2.686 [id number] 800 2019-12-13 2019-12-13 Office Devlin, 1.2.840.2 [id number] 09971 577 [facility] 10:03:47 13:58:12 Visit Manny Garcian 74297.1.1 Co llege 3.210.2.7 of .3.269551 Medici n .8 e 2019-12-13 2019-12-13 Office Dvelin, GUILLERMINA 1.2.840.114 [id number] 10:03:47 13:58:12 Visit Manny Garcian AMBULATOR 350.1.13.21 Y 0.2.7.2.686 [id number] 375 2019-12-13 2019-12-13 Travel 1.2.840.1 1.2.656.030 4433 6204 [facility] 00:00:00 00:00:00 87361.1.1 350.1.13.21 College 3.210.2.7 0.2.7.3.698 of .3.875538 084.8 Medici n .8 e 2019-12-08 2019-12-08 Telephone Devlin, 1.2.840.3 [id number] 755 64925 [facility] 00:00:00 00:00:00 Manny Deric 70198.1.1 Co llege 3.210.2.7 of .3.003120 Medici n .8 e 2019-12-06 2019-12-06 [facility] 13, [facility] 1.2.840.8 [id number] 7495 3661 [facility] 10:00:00 23:59:00 Encounter Chair 27814.1.1 Co llege 3.210.2.7 of .3.571353 Medici n .8 e 2019-12-06 2019-12-06 Office Omar Yen 1.2.840.2 [id number] [facility] 09:04:35 13:25:56 Visit Edjanine 20696.1.1 Shanel ege 3.210.2.7 of .3.735526 Medici n .8 e 2019-12-06 2019-12-06 Office Omar Yen [facility] 1.2.840.114 752 [id number] 09:04:35 09:37:30 Visit Edjanine Seymour 350.1.13.21 0.2.7.2.686 [id number] 530 2019-12-06 2019-12-06 Travel 1.2.840.1 1.2.674.353 6732 9203 [facility] 00:00:00 00:00:00 27859.1.1 350.1.13.21 College 3.210.2.7 0.2.7.3.698 of .3.462033 084.8 Medici n .8 e 2019-12-02 2019-12-02 Telephone Fiona, 1.2.840.2 [id number] 754 56533 [facility] 00:00:00 00:00:00 Vita P 13859.1.1 Shanel ege 3.210.2.7 of .3.438872 Medici n .8 e 2019-11-28 2019-11-30 Outside nullFlavo MNA [id number] [facility] 13:59:25 04:59:59 Medical r Neurology 01 l Records [facility] 2019-11-28 2019-11-30 Outside nullFlavo MNA [id number] [facility]oria 13:59:25 04:59:59 Medical r Neurology 01 l Records [facility] 2019-11-28 2019-11-29 Outpatient MHMISCHER MHMISCHER [id number] 08:59:25 23:59:59 2019-11-29 2019-11-29 Telephone Fiona, 1.2.840.1 [id number] 753 10199 [facility] 00:00:00 00:00:00 Vita P 65120.1.1 Shanel ege 3.210.2.7 of .3.699717 Medici n .8 e 2019-11-29 2019-11-29 Telephone Fiona, 1.2.840.4 [id number] 753 [id number] [facility] 00:00:00 00:00:00 Vita P 04079.1.1 Shanel ege 3.210.2.7 of .3.951746 Medici n .8 e 2019-11-28 2019-11-28 Telephone Fiona, 1.2.840.9 [id number] 753 [id number] [facility] 00:00:00 00:00:00 Vita P 64371.1.1 Shanel ege 3.210.2.7 of .3.142275 Medici n .8 e 2019-11-22 2019-11-22 Hospital 13, Bcc 1.2.840.7 [id number] 7495 [id number] [facility] 10:00:00 23:59:00 Encounter Chair 08317.1.1 Co llege 3.210.2.7 of .3.964856 Medici n .8 e 2019-11-22 2019-11-22 Office Omar Yen 1.2.840.8 [id number] [facility] 08:40:10 11:15:19 Visit Edward 01186.1.1 Shanel ege 3.210.2.7 of .3.557432 Medici n .8 e 2019-11-22 2019-11-22 Office Omar Yen [facility] 1.2.840.114 [id number] 08:40:10 09:00:10 Visit Edward Seymour 350.1.13.21 0.2.7.2.686 [id number] 530 2019-11-22 2019-11-22 Travel 1.2.840.1 1.2.473.924 8622 8456 [facility] 00:00:00 00:00:00 81091.1.1 350.1.13.21 College 3.210.2.7 0.2.7.3.698 of .3.186073 084.8 Medici n .8 e 2019-11-08 2019-11-08 Hospital 13, Bcc 1.2.840.6 [id number] [facility] 10:00:00 23:59:00 Encounter Chair 80140.1.1 Co llege 3.210.2.7 of .3.350106 Medici n .8 e 2019-11-08 2019-11-08 Office Omar Yen 1.2.840.5 [id number] [facility] 09:01:33 10:15:07 Visit Edward 26278.1.1 Shanel ege 3.210.2.7 of .3.409255 Medici n .8 e 2019-11-08 2019-11-08 Office Bird Yen [facility] 1.2.840.114 [id number] 09:01:33 10:15:07 Visit E Seymour 350.1.13.21 0.2.7.2.686 [id number] 530 2019-11-08 2019-11-08 Travel 1.2.840.1 1.2.083.135 [id number] 2029 [facility] 00:00:00 00:00:00 95061.1.1 350.1.13.21 College 3.210.2.7 0.2.7.3.698 of .3.209840 084.8 Medici n .8 e 2019-11-01 2019-11-01 Outpatient SLE SLE [id number] 3-2 [facility] 00:00:00 00:00:00 [id number] 2019-11-01 2019-11-01 Orders Alayon, 1.2.840.1 [id number] [facility] 00:00:00 00:00:00 Only [facility] 18570.1.1 Co llege 3.210.2.7 of .3.382836 Medici n .8 e 2019-10-31 2019-10-31 Orders Rychlec, 1.2.840.1 [id number] [id number] [facility] 00:00:00 00:00:00 Only Kayleigh 19237.1.1 Shanel ege 3.210.2.7 of .3.977502 Medici n .8 e 2019-10-31 2019-10-31 Telephone Omar Yen 1.2.840.6 [id number] [facility] 00:00:00 00:00:00 Edward 94510.1.1 Shanel ege 3.210.2.7 of .3.255553 Medici n .8 e 2019-10-27 2019-10-27 Outpatient SLE SLE [id number] 3-2 SLE 12:42:06 23:59:00 [id number] 2019-10-27 2019-10-27 Orders Fiona, 1.2.840.4 [id number] 015 [facility] 00:00:00 00:00:00 Only Vita P 29789.1.1 Shanel ege 3.210.2.7 of .3.101221 Medici n .8 e 2019-10-26 2019-10-26 Telephone Omar Yen 1.2.840.6 [id number] [facility] 00:00:00 00:00:00 Edward 53991.1.1 Shanel ege 3.210.2.7 of .3.431274 Medici n .8 e 2019-10-26 2019-10-26 Telephone Omar Yen 1.2.840.3 [id number] [facility] 00:00:00 00:00:00 Edward 13970.1.1 Shanel ege 3.210.2.7 of .3.159595 Medici n .8 e 2019-10-25 2019-10-25 Office Omar Yen 1.2.840.0 [id number] [facility] 12:05:50 14:39:35 Visit Edward 13702.1.1 Shanel ege 3.210.2.7 of .3.693884 Medici n .8 e 2019-10-25 2019-10-25 Office Bird Yen [facility] 1.2.840.114 [id number] 12:05:50 13:31:23 Visit E Seymour 350.1.13.21 0.2.7.2.686 [id number] 530 2019-10-25 2019-10-25 Travel 1.2.840.1 1.2.587.255 9381 [id number] [facility] 00:00:00 00:00:00 88173.1.1 350.1.13.21 College 3.210.2.7 0.2.7.3.698 of .3.093562 084.8 Medici n .8 e 2019-10-24 2019-10-24 Telephone Fiona, 1.2.840.7 [id number] 748 [id number] [facility] 00:00:00 00:00:00 Vita P 54063.1.1 Shanel ege 3.210.2.7 of .3.606697 Medici n .8 e 2019-10-20 2019-10-21 Clinical Fiona, 1.2.840.0 [id number] 8468 [facility] 11:45:00 11:15:55 Support Vita P 22431.1.1 Shanel ege 3.210.2.7 of .3.678812 Medici n .8 e 2019-10-21 2019-10-21 [facility] [id number] Common 10:33:00 10:33:00 t Specialty/U Sp viridiana Specialty rology - [facility] 2019-10-21 2019-10-21 Telephone Fiona, 1.2.840.5 [id number] 748 [id number] [facility] 00:00:00 00:00:00 Vita P 03818.1.1 Shanel ege 3.210.2.7 of .3.567768 Medici n .8 e 2019-10-21 2019-10-21 Telephone Fiona, 1.2.840.9 [id number] 748 [id number] [facility] 00:00:00 00:00:00 Vita P 81318.1.1 Shanel ege 3.210.2.7 of .3.732333 Medici n .8 e 2019-10-21 2019-10-21 Telephone Omar Yen 1.2.840.1 [id number] [facility] 00:00:00 00:00:00 Edward 37524.1.1 Shanel ege 3.210.2.7 of .3.284559 Medici n .8 e 2019-10-19 2019-10-20 Outpatient nullFlavo MNA [id number] [facility] 20:30:00 04:59:59 r Neurology 13 l [place] [facility] 2019-10-19 2019-10-20 Outpatient nullFlavo MNA [id number] [facility] 20:30:00 04:59:59 r Neurology 13 l Rhiannon [facility] 2019-10-19 2019-10-19 Outpatient ELMIRA CamposMISCHER MHMISCHER [id number] 15:30:00 23:59:59 Michael 13 Isaiah 2019-10-19 2019-10-19 Outpatient MHIE IE [id number] Mem[facility] 15:30[facility]00 [facility]30[facility] 2019-10-19 Telephone Fiona, 1.2.840.8 [id number] 748 [id number] [facility] 00:00:00 00:00:00 Vita P 97634.1.1 Shanel ege 3.210.2.7 of .3.883232 Medici n .8 e 2019-10-18 2019-10-18 Orders Fiona, 1.2.840.4 [id number] [facility] 00:00:00 00:00:00 Only Vita P 09786.1.1 Shanel ege 3.210.2.7 of .3.414759 Medici n .8 e 2019-10-18 2019-10-18 Telephone Fiona, 1.2.840.6 [id number] 748 [id number] [facility] 00:00:00 00:00:00 Vita P 70272.1.1 Shanel ege 3.210.2.7 of .3.599152 Medici n .8 e 2019-10-17 2019-10-17 Telephone Fiona, 1.2.840.7 [id number] 748 [id number] [facility] 00:00:00 00:00:00 Vita P 46648.1.1 Shanel ege 3.210.2.7 of .3.477700 Medici n .8 e 2019-10-14 2019-10-14 Outpatient [facility] SLE[facility] [id number] 3-2 [facility] 06:14:00 06:14:00 [id number] 2019-10-14 2019-10-14 Orders Fiona, 1.2.840.6 [id number] 990 [facility] 00:00:00 00:00:00 Only Vita P 17787.1.1 Shanel ege 3.210.2.7 of .3.756452 Medici n .8 e 2019-10-14 2019-10-14 Telephone Fiona, 1.2.840.9 [id number] 747 13084 [facility] 00:00:00 00:00:00 Vita P 72913.1.1 Shanel ege 3.210.2.7 of .3.345038 Medici n .8 e 2019-10-14 2019-10-14 Abstract Fiona, 1.2.840.2 [id number] 7479 7074 [facility] 00:00:00 00:00:00 Vita P 14420.1.1 Shanel ege 3.210.2.7 of .3.399803 Medici n .8 e 2019-10-13 2019-10-13 Telephone Fiona, 1.2.840.1 [id number] 747 [id number] [facility] 00:00:00 00:00:00 Vita P 51417.1.1 Shanel ege 3.210.2.7 of .3.063320 Medici n .8 e 2019-10-13 2019-10-13 Abstract Fiona, 1.2.840.8 [id number] 9273 [facility] 00:00:00 00:00:00 Vita P 14495.1.1 Shanel ege 3.210.2.7 of .3.547423 Medici n .8 e 2019-10-12 2019-10-12 Outpatient [facility]H SLE[facility] [id number] 3-2 [facility] 00:00:00 00:00:00 [id number] 2019-10-10 2019-10-10 Outpatient SLEH SLEH [id number] 3-2 [facility] 00:00:00 00:00:00 [id number] 2019-10-10 2019-10-10 Telephone Fiona, 1.2.840.4 [id number] 747 [id number] [facility] 00:00:00 00:00:00 Vita P 07702.1.1 Shanel ege 3.210.2.7 of .3.841253 Medici n .8 e 2019-10-04 2019-10-04 Office Fiona, [facility] 1.2.840.114 [id number] [facility] 15:02:08 15:36:29 Visit Vita P AMBULATOR 350.1.13.21 College Y 0.2.7.2.686 of [id number] [facility] 300 e 2019-10-04 2019-10-04 Office Fiona, [place] 1.2.840.114 [id number] 15:02:08 15:36:29 Visit Vita P AMBULATOR 350.1.13.21 Y 0.2.7.2.686 [id number] 300 2019-09-21 2019-09-21 [facility] [id number] Common 15:44:00 15:44:00 t Specialty/U Sp viridiana Specialty rology - [facility] 2019-09-15 2019-09-16 Outpatient nullFlavo MNA [id number] [facility] 22:00:00 05:59:59 r Neurology 12 l [place] Aleksey 2019-09-15 2019-09-16 Outpatient nullFlavo MNA [id number] [facility] 22:00:00 05:59:59 r Neurology 12 lillian Ryder 2019-09-15 2019-09-15 Outpatient Andres MHMISCHER MHMISCHER 001 [id number] 16:00:00 23:59:59 Michael 12 Isaiah 2019-09-15 2019-09-15 Outpatient MHIE MHIE [id number] Memoria 16:00:00 16:00:00 12 lillian Ryder 2019-09-13 2019-09-13 [facility] [id number] Common 13:15:00 13:15:00 t Specialty/U Sp viridiana Specialty rology - [facility] 2019-08-18 2019-08-19 Outpatient nullFlavo MNA [id number] [facility] 20:45:00 05:59:59 r Neurology 10 lillian Ryder 2019-08-18 2019-08-19 Outpatient nullFlavo MNA [id number] [facility] 20:45:00 05:59:59 r Neurology 10 lillian Ryder 2019-08-18 2019-08-18 Outpatient Andres MISCHER MISCHER 005 [id number] 14:45:00 23:59:59 Michael 10 Isaiah 2019-08-18 2019-08-18 Outpatient MHIE MHIE [id number] Memoria 14:45:00 14:45:00 10 lillian Ryder 2019-07-22 2019-07-23 Outpatient nullFlavo MNA [id number] [facility] 15:15:00 05:59:59 r Neurology 11 lillian Ryder 2019-07-22 2019-07-23 Outpatient nullFlavo MNA [id number] [facility] 15:15:00 05:59:59 r Neurology 11 lillian Ryder 2019-07-22 2019-07-22 Outpatient Andres MHMISCHER MHMISCHER [id number] 09:15:00 23:59:59 Michael 11 Isaiah 2019-07-22 2019-07-22 Outpatient MHIE MHIE [id number] Memoria 09:15:00 09:15:00 11 lillian Ryder 2019-07-07 2019-07-08 Outpatient nullFlavo MNA [id number] [facility] 20:45:00 05:59:59 r Neurology 09 lillian Jurado Aleksey 2019-07-07 2019-07-08 Outpatient nullFlavo MNA [id number] [facility] 20:45:00 05:59:59 r Neurology 09 lillian Jurado Aleksey 2019-07-07 2019-07-07 [facility] [id number] 14:45:00 23:59:59 Michael Colby Colon 2019-07-07 2019-07-07 Outpatient MHIE MHIE [id number] Memoria 14:45:00 14:45:00 09 lillian [facility] 2019-03-03 2019-03-04 Outpatient nullFlavo MNA [id number] [facility] 20:15:00 04:59:59 r Neurology 08 lillian [place] [facility] 2019-03-03 2019-03-04 Outpatient nullFlavo MNA [id number] [facility] 20:15:00 04:59:59 r Neurology 08 lillian Jurado [facility] 2019-03-03 2019-03-03 Outpatient Andres [facility] [id number] 15:15:00 23:59:59 Michael Brooke Isaiah 2019-03-03 2019-03-03 Outpatient MHIE MHIE [id number] Memoria 15:15:00 15:15:00 08 lillian [facility] 2019-02-02 2019-02-03 Outpatient nullFlavo MNA [id number] Memoria 20:15:00 04:59:59 r Neurology 07 lillian Jurado [facility] 2019-02-02 2019-02-03 Outpatient nullFlavo MNA [id number] Memoria 20:15:00 04:59:59 r Neurology 07 lillian Jurado [facility] 2019-02-02 2019-02-02 [facility]patient [facility] [id number] 15:15:00 23:59:59 Michael Monalisa Isaiah 2019-02-02 2019-02-02 Outpatient MHIE MHIE [id number] Memoria 15:15:00 15:15:00 07 lillian [facility] 2018-12-17 2018-12-18 Outpatient nullFlavo MNA [id number] [facility] 20:30:00 04:59:59 r Neurology 06 [place] [facility] 2018-12-17 2018-12-18 Outpatient nullFlavo MNA [id number] [facility] 20:30:00 04:59:59 r Neurology 06 lillian Ryder 2018-12-17 2018-12-17 [facility] [id number] 15:30:00 23:59:59 Michael Garrison Colon 2018-12-17 2018-12-17 Outpatient MHIE MHIE [id number] Memoria 15:30:00 15:30:00 Garrison Ryder 2018-12-03 2018-12-03 Ambulatory nullFlavo MNA [id number] Memoria 18:30:00 18:30:00 Pre-Reg r Neurology 05 lillian Ryder 2018-12-03 2018-12-03 Ambulatory nullFlavo MNA [id number] Memoria 18:30:00 18:30:00 Pre-Reg r Neurology 05 lillian Jurado Aleksey 2018-12-03 2018-12-03 Outpatient MHIE MHIE [id number] Memoria 13:30:00 13:30:00 Juanis snyder [facility] 2018-12-03 2018-12-03 [facility] [id number] 13:30:00 13:30:00 Michael Juanis Colon 2018-07-30 2018-07-31 Outpatient nullFlavo MNA [id number] Memoria 19:00:00 05:59:59 r Neurology 04 lillian Ryder 2018-07-30 2018-07-31 Outpatient nullFlavo MNA [id number] Memoria 19:00:00 05:59:59 r Neurology 04 lillian Jurado Aleksey 2018-07-30 2018-07-30 [facility] [id number] 13:00:00 23:59:59 Michael Connie Colon 2018-07-30 2018-07-30 Outpatient MHIE MHIE [id number] Memoria 13:00:00 13:00:00 04 lillian [facility] 2018-07-08 2018-07-10 Phone nullFlavo MNA [id number] Memoria 16:46:00 05:59:59 Message r Neurology 00 lillian Jurado Aleksey 2018-07-08 2018-07-10 Phone nullFlavo MNA [id number] Memoria 16:46:00 05:59:59 Message r Neurology 00 lillian Jurado Aleksey 2018-07-08 2018-07-09 Outpatient MHMISCHER MHMISCHER [id number] 10:46:00 23:59:59 00 2018-06-18 2018-06-19 Outpatient nullFlavo MNA [id number] Memoria 19:15:00 05:59:59 r Neurology 03 l Rhiannon Ryder 2018-06-18 2018-06-19 Outpatient nullFlavo MNA [id number] Memoria 19:15:00 05:59:59 r Neurology 03 l [place] Aleksey 2018-06-18 2018-06-18 Outpatient [facility] [id number] 13:15:00 23:59:59 Michael 03 Isaiah 2018-06-18 2018-06-18 Outpatient MHIE MHIE [id number] Memoria 13:15:00 13:15:00 03 lillian Ryder 2018-04-01 2018-04-01 Outpatient MHIE MHIE [id number] Memoria 14:15:00 14:15:00 02 lillian Ryder 2018-04-01 2018-04-01 Outpatient MHIE MHIE [id number] Memoria 14:15:00 14:15:00 02 lillian Ryder 2017-12-31 2017-12-31 Outpatient MHIE MHIE [id number] Memoria 13:15:00 13:15:00 01 lillian Ryder 2017-12-31 2017-12-31 Outpatient MHIE MHIE [id number] Memoria 13:15:00 13:15:00 01 lillian Ryder 2017-09-01 2017-09-01 Outpatient MHIE MHIE [id number] Memoria 13:15:00 13:15:00 00 lillian Ryder 2017-09-01 2017-09-01 Outpatient MHIE MHIE [id number] Memoria 13:15:00 13:15:00 00 lillian Ryder Results Test Description Test Time Test Comments Results Result [facility] e Comments ANG, CV ACCESS, 2022-03-20 Reason for FLUORO 15:46:00 Exam:->Malignant neoplasm of overlapping sites [facility] - [facility] [place] MER[place]O : 1945 Sex: F *FINAL REPORT Right Chest Port-A-Cath removal. History: Malignant neoplasm of overlapping sites of bladder, Port-A-Cath in place Modality: None. Sedation: No sedation. Vital signs were monitored throughout the procedure by a nurse, and remained stable. Physician intra-service time was 35 minutes. Tire Repair Mechanic: Meño Alfaro MD. Approach: Right anterior chest. [...] of a Right Port-A-Cath. Signed: Meño Alfaro MDReport Verified Date/Time: 03/20/2022 15:46:55 Reading Location: [facility] Radiology Reading Room HROMBIN TIME/INR 2022-03-18 11:58:21 Test Item Value Reference Range Interpretation Comme nts PROTIME (BEAKER) (test code 14.6 seconds 11.9-14.2 H = 759) INR (BEAKER) (test code = 1.21 See_Comment [ Automated message] The 370) system which ge nerated this result transmit tom reference range: <=5.90. The reference range was not u sed to interpret this result as normal/abnormal . RECOMMENDED COUMADIN/WARFARIN INR THERAPY RANGESSTANDARD DOSE: 2.0 - 3.0 Includes: PROPHYLAXIS for venous thrombosis, systemic embolization; TREATMENT for venous thrombosis and/or pulmonary embolus.HIGH RISK: Target INR is 2.5-3.5 for patients with mechanical heart valves.POC-Glucose [id number] 11:50:47 Test Item Value Reference Range Interpretation Comments POC-Glucose Meter (test 91 mg/dL 70-110 : TE STED AT [facility] code = 1538) [address] [place] [address], 770 30: Livery Car Driver/Techni kylie ID = [id number] for Sarsoza, Gemma Lab Interpretation (test Normal code = 76782-2) [facility]-Glucose [id number] 11:50:47 Test Item Value Reference Range Interpretation Comments POC-Glucose Meter (test 91 mg/dL 70-110 : TE STED AT [facility] code = 1538) [address] [place] [address], 770 30: Livery Car Driver/Techni kylie ID = [id number] for Sarsoza, Gemma Lab Interpretation (test Normal code = 27282-6) [facility]-Glucose [id number] 11:50:47 Test Item Value Reference Range Interpretation Comments POC-Glucose Meter (test 91 mg/dL 70-110 : TE STED AT [facility] code = 1538) [address] [place] [address], 770 30: Livery Car Driver/Techni kylie ID = [id number] for Sarsoza, Gemma Lab Interpretation (test Normal code = 04077-1) [facility]-Glucose [id number] 11:50:47 Test Item Value Reference Range Interpretation Comments POC-Glucose Meter (test 91 mg/dL 70-110 : TE STED AT [facility] code = 1538) [address] [place] [address], 770 30: Livery Car Driver/Techni kylie ID = [id number] for Sarsoza, Gemma Lab Interpretation (test Normal code = 34057-3) [facility]-GLUCOSE [id number] 11:50:47 Test Item Value Reference Range Interpretation Comments POC-GLUCOSE METER 91 mg/dL 70-110 : TESTED A T [facility] 6720 (BEAKER) (test code = [facility] Bartolo [facility], 1538) 25973: Livery Car Driver/Techni kylie ID = [id number] for Sars paulie, Gemma CBC W/PLT COUNT & AUTO [id number] 11:50:17 Test Item Value Reference Range Interpretation [...] PERCENT (BEAKER) (test code = 2801) VITAMIN [id number] 11:04:45 Test Item Value Reference Range Interpretation Comments VITAMIN B-12 (test 1015 PG/ML 200-950 H Unless O therwise code = 2132-9) Indicated, Al l Testing Perform ed At: [facility], [address] [place] [address] Laborator y Director: Robbie Wagner M.D. CLIA Number [id number] Cap [place] o. [id number] BALBIR (test code = BALBIR) PT FASTING Lab Interpretation Abnormal (test code = 35717-6) [facility] FREE T4 [id number] 11:04:45 Test Item Value Reference Range Interpretation Comments THYROID STIMULATING See_Comment [Automa tom message] HORMONE (test code = The sys tem which 92396-8) generated this result transmitted ref erence range: 0.400 - 4.100 UIU/ML. The ref erence range was not u sed to interpret this result as normal/abnor mal. FREE T4 (test code = See_Comment Unless Otherwise 3024-7) Indicated, All Testing Perform ed At: [facility], [address] [place] [address] Laborator y Director: Robbie Wagner M.D. CLIA Number [id number] Cap Accreditation [place] o. [id number] [Autom ated message] The sy stem which generated this result transmit tom reference range : 0.80 - 1.90 NG/DL. T he reference range was not used to int erpret this result as normal/abnormal . BALBIR (test code = BALBIR) PT FASTING [facility]PRE[facility] METABOLIC [id number] 19:07:17 Test Item Value Reference Range Interpretation [...] [Auto mated message] = 2160-0) The system [employer] h generated this result transmitted ref erence range: 0.6 - 1. 3 MG/DL. The refe rence range was not u sed to interpret this result as normal/abnor mal. EGFR (test code = See_Comment L [Automate d message] 56390-1) The system [employer] generated this result transmitted ref erence range: >60 ML/MIN/1.73. Th e reference range was not used to int erpret this result as normal/abnormal . BUN/CREAT RATIO (test See_Comment [Auto mated message] code = 3097-3) The system [facility] generated this result transmitted ref erence range: 6 - 28 R ATIO. The reference r anil was not used to interpret this result as normal/abnor mal. SODIUM (test code = See_Comment [Automa tom message] 2951-2) The system [employer] generated this result transmitted ref erence range: 133 - 14 6 MEQ/L. The refe rence range was not u sed to interpret this result as normal/abnor mal. POTASSIUM (test code = See_Comment [Aut omated message] 1703-3) The system [employer] generated this result transmitted ref erence range: 3.5 - 5. 4 MEQ/L. The refe rence range was not u sed to interpret this result as normal/abnor mal. CHLORIDE (test code = See_Comment H [Auto mated message] 9335-0) The system [employer] generated this result transmitted ref erence range: 100 - 11 2 MEQ/L. The refe rence range was not u sed to interpret this result as normal/abnor mal. CO2 (test code = See_Comment [Automated message] 1962-8) The system [facility] generated this result transmitted ref erence range: 21 - 30 MEQ/L. The reference r anil was not used to interpret this result as normal/abnor mal. CALCIUM (test code = See_Comment [Autom ated message] 70186-2) The system [employer] generated this result transmitted ref erence range: 8.5 - 10 .5 MG/DL. The refe rence range was not u sed to interpret this result as normal/abnor mal. PROTEIN TOTAL (test See_Comment [Automa tom message] code = 2885-2) The system [employer] generated this result transmitted ref erence range: 6.1 - 8. 1 G/DL. The refer ence range was not u sed to interpret this result as normal/abnor mal. ALBUMIN (test code = See_Comment [Autom ated message] 02349-4) The system [employer] generated this result transmitted ref erence range: 3.4 - 4. 8 G/DL. The refer ence range was not u sed to interpret this result as normal/abnor mal. GLOBULINS, SERUM, See_Comment [Automate d message] TOTAL (test code = The syste m which 47362-4) generated this result transmitted ref erence range: 1.9 - 3. 7 G/DL. The refer ence range was not u sed to interpret this result as normal/abnor mal. A/G RATIO (test code = See_Comment [Aut omated message] 1759-0) The system [facility] [employer] generated this result transmitted ref erence range: 1.0 - 2. 6 RATIO. The refe rence range was not u sed to interpret this result as normal/abnor mal. BILIRUBIN TOTAL (test See_Comment [Auto mated message] code = 1975-2) The system [employer] generated this result transmitted ref erence range: [...] [place]. [address]URCHILLV D, JANET [address] [place] [address] CLIA NO. [id number] Unle ss Otherwise Indic ated, All Testing Per formed At: [facility], [address] [place] [address] [place], [place] [address] Laborator y Director: Robbie Wagner M.D. CLIA Number [id number] Cap Accreditation N o. BALBIR (test code = BALBIR) PT FASTING Lab Interpretation Abnormal (test code = 44727-3) [facility] [id number] 19:07:05 Test Item Value Reference Range Interpretation Comments MAGNESIUM (test code See_Comment TESTIN G PERFORMED AT = 83777-8) [facility], [place]. [address] [facility] [address] [place], [place] [address] CLIA NO. [id number] Unless Otherwise Indic ated, All Testing Per formed At: [facility], [address] [facility], [place] [address] Laboratory Dire ctor: Robbie de los santos M.D. CLIA Number [id number] Cap Accreditati on No. [Autom ated message] The sy stem which generated this result transmit tom reference range : 1.6 - 2.6 MG/DL. The reference range was not used to interpr et this result as normal/abnormal . BALBIR (test code = PT FASTING BALBIR) [facility] HospitalCB W/AUTO DIFF WITH [id number] 18:30:05 Test Item Value Reference Range Interpretation Comments WHITE BLOOD CELL COUNT See_Comment [Aut omated message] (test code = 65987-3) The sy stem which generated this result transmit tom reference range : 3.5 - 11.0 K/UL. e reference range was not used to interpret this result as normal/abnormal . RED BLOOD CELL COUNT See_Comment [Autom ated message] (test code = 33014-7) The sy stem which generated this result [...] HEMATOCRIT (test code = 42.3 % 34-45 32427-5) MEAN CORPUSCULAR VOLUME 90.2 fL 80-99 (test code = 13250-8) MEAN CORPUSCULAR 29.2 PG 25-33 HEMOGLOBIN (test code = 35611-7) MEAN CORPUSCULAR See_Comment [Automated message] HEMOGLOBIN CONC (test The sy stem which code = 93514-2) generated th is result transmit tmo reference range : 31.0 - 36.0 G/D L. The reference r anil was not used to interpret this result as normal/abnormal . RED CELL DISTRIBUTION 15.2 % 11.5-15 H WIDTH (test code = 54976-3) NEUTROPHILS % (test 58 % code = 22379-7) LYMPHOCYTES % (test 33 % code = 62419-3) MONOCYTES % (test code 8 % = 67287-3) EOSINOPHILS % (test 1 % code = 99086-9) BASOPHILS % (test code 0 % = 06940-7) PLATELET COUNT (test See_Comment TESTIN G PERFORMED code = 64734-8) AT [facility]. [address], JANET [address] [place] [address] CLIA N O. [id number] [Automated mess age] The system whic h generated this result transmit tom reference range : 130 - 400 K/UL. The reference range was not used to interpret this result as normal/abnormal . NEUTROPHILS ABSOLUTE See_Comment [Autom ated message] COUNT (test code = The [facility] which 08294-8) generated this result transmit tom reference range : 1.50 - 7.50 K/U L. The reference r anil was not used to interpret this result as normal/abnormal . LYMPHOCYTES ABSOLUTE See_Comment [Autom ated message] COUNT (test code = The syste which 81877-0) generated this result transmit tom reference range : 1.00 - 4.00 K/U L. The reference r anil was not used to interpret this result as normal/abnormal . MONOCYTES ABSOLUTE See_Comment [Automat ed message] COUNT (test code = The syste which 92758-7) generated this result transmit tom reference range : 0.20 - 1.00 K/U L. The reference r anil was not used to interpret this result as normal/abnormal . BASOPHILS ABSOLUTE See_Comment Unless O therwise COUNT (test code = Indicated , All 38361-4) Testing Perform ed At: [facility], [address] [place] [address], [place] [address] Laborator y Director: Moni ChavezIA Number [id number] [place]. [address]-22 [Automated mess age] The system [employer] generated this result transmit tom reference range : 0.00 - 0.20 K/U L. The reference r anil was not used to interpret this result as normal/abnormal . BALBIR (test code = BALBIR) PT FASTING Lab Interpretation Abnormal (test code = 59232-3) [facility], WITH IV [id number] 10:07:00Unlisted Reason for Exam - Click Yes and Enter Reason Below->Yes Unlisted Reason for Exam->Malignant neoplasm of overlapping sites [facility] [place] 1945 Sex: FFINAL [...] pelviectasis is unchanged. Status post cystectomy with Mcpherson pouch. Proximal remains thickened. No evidence of bowel obstruction, or abnormal bowelwall thickening. There is no ascites, free air or adenopathy. Bony structures demonstrate degenerative changes. Impression: Previously seen right lower lobe pulmonary nodules are either smaller or resolved. No new disease identified in the chest, abdomen or pelvis. Persistent wall thickening of the Mcpherson pouch. Cholelithiasis. Punctate nonobstructive stone in the right kidney. Signed: Beto [facility] Verified Date/Time: 02/05/2022 10:07:02 Reading Location: [address] Ortho Consult Reading Room CT, [id number] 10:07:00Unlisted Reason for Exam - Click Yes and Enter Reason Below->YesUnlisted Reason for Exam->Malignant neoplasm of overlapping sites of bladderIs this for enterography?->NoWill this procedure require oral contrast?->[facility] [place] [place] : 1945 Sex: [...] pelviectasis is unchanged. Status post cystectomy with Mcpherson pouch. Proximal remains thickened. No evidence of bowel obstruction, or abnormal bowelwall thickening. There is no ascites, free air or adenopathy. Bony structures demonstrate degenerative changes. Impression: Previously seen right lower lobe pulmonary nodules are either smaller or resolved. No new disease identified in the chest, abdomen or pelvis. Persistent wall thickening of the Mcpherson pouch. Cholelithiasis. Punctate nonobstructive stone in the right kidney. Signed: Beto Bianchi MDReport Verified Date/Time: 02/05/2022 10:07:02 Reading Location: [address] Consult Reading Room COMPREHENSIVE METABOLIC PANEL 2021-11-15 17:14:02 Test Item Value Reference Range Interpretation Comments GLUCOSE (test code = See_Comment [Autom ated message] 2345-7) The system [employer] generated this result transmitted ref erence range: [...] See_Comment [Au tomated message] 2160-0) The system [employer] generated this result transmitted ref erence range: 0.6 - 1. 3 MG/DL. The refe rence range was not u sed to interpret this result as normal/abnor mal. EGFR (test code = See_Comment [Automate d message] 99213-2) The system [employer] generated this result transmitted ref erence range: >60 ML/MIN/1.73. Th e reference range was not used to int erpret this result as normal/abnormal . BUN/CREAT RATIO (test See_Comment [Auto mated message] code = 3097-3) The system [facility] generated this result transmitted ref erence range: 6 - 28 R ATIO. The reference r anil was not used to interpret this result as normal/abnor mal. SODIUM (test code = See_Comment [Automa tom message] 2951-2) The system [employer] generated this result transmitted ref erence range: 133 - 14 6 MEQ/L. The refe rence range was not u sed to interpret this result as normal/abnor mal. POTASSIUM (test code = See_Comment [Aut omated message] 4303-3) The system [employer] generated this result transmitted ref erence range: 3.5 - 5. 4 MEQ/L. The refe rence range was not u sed to interpret this result as normal/abnor mal. CHLORIDE (test code = See_Comment [Auto mated message] 4315-0) The system [employer] generated this result transmitted ref erence range: 100 - 11 2 MEQ/L. The refe rence range was not u sed to interpret this result as normal/abnor mal. CO2 (test code = See_Comment L [Automated message] 1962-8) The system [employer] generated this result transmitted ref erence range: 21 - 30 MEQ/L. The reference r anil was not used to interpret this result as normal/abnor mal. CALCIUM (test code = See_Comment [Autom ated message] 36499-1) The system [facility] generated this result transmitted ref erence range: 8.5 - 10 .5 MG/DL. The refe rence range was not u sed to interpret this result as normal/abnor mal. PROTEIN TOTAL (test See_Comment [Automa tom message] code = 2885-2) The system [facility] generated this result transmitted ref erence range: 6.1 - 8. 1 G/DL. The reference r anil was not used to interpret this result as normal/abnor mal. ALBUMIN (test code = See_Comment [Autom ated message] 62063-0) The system [facility] generated this result transmitted ref erence range: 3.4 - 4. 8 G/DL. The reference r anil was not used to interpret this result as normal/abnor mal. GLOBULINS, SERUM, TOTAL See_Comment [Au tomated message] (test code = 67731-5) The sy stem which generated this result transmitted ref erence range: 1.9 - 3. 7 G/DL. The reference r anil was not used to interpret this result as normal/abnor mal. A/G RATIO (test code = See_Comment [Aut omated message] 1759-0) The system [facility] [employer] generated this result transmitted ref erence range: 1.0 - 2. 6 RATIO. The refe rence range was not u sed to interpret this result as normal/abnor mal. BILIRUBIN TOTAL (test See_Comment [Auto mated message] code = 1974-2) The system [facility] generated this result transmitted ref erence range: <=1.2 MG /DL. The reference r anil was not used to interpret this result as normal/abnor mal. ALKALINE PHOSPHATASE 62 U/L 30-132 (test code = 6768-6) AST (SGOT) (test code = 27 U/L 7-56 1920-8) ALT (SGPT) (test code = 25 U/L 3-47 GIULIA TING PERFORMED AT 1744-2) [facility] [address] [place], [address] [place] [address] CLIA NO. [id number] Unle ss Otherwise Indic ated, All Testing Per formed At: [facility], [address] [facility], [place] [address] Laborator y Director: Robbie Wagner M.D. CLIA Number [id number] [place] o. [id number] Lab Interpretation Abnormal (test code = 22290-2) [id number] 17:13:42 Test Item Value Reference Range Interpretation Comments MAGNESIUM (test code = See_[place] [address]-1) [facility] [place] [facility], [address] [place], [place] [address] CLIA NO. [id number] Unle ss Otherwise Indic ated, All Testing Perform ed At: [facility], [address] [facility], [place] [address] Laboratory Dire ctor: Gayla Chavez CLIA Number [id number] [place] o. [id number] [Automated mess age] The system which ge nerated this result tra nsmitted reference range : 1.6 - 2.6 MG/DL. The refe rence range was not used to interpret this result as normal/abnormal . [facility]AUTO DIFF WITH [id number] 16:29:34 Test Item Value Reference Range Interpretation Comments WHITE BLOOD CELL COUNT See_Comment [Aut omated message] (test code = 27361-6) The sy stem which generated this result transmitted ref erence range: 3.5 - 11 .0 K/UL. The refer ence range was not u sed to interpret this result as normal/abnor mal. RED BLOOD CELL COUNT See_Comment [Autom ated message] (test code = 58339-2) The sy stem which generated this result transmitted ref erence range: 3.80 - 5 .40 M/UL. The refer ence range was not u sed to interpret this result as normal/abnor mal. HEMOGLOBIN (test code = See_Comment [Au tomated message] 718-7) The system [employer] generated this result transmitted ref erence range: 11.5 - 1 5.5 G/DL. The refer ence range was not u sed to interpret this result as normal/abnor mal. HEMATOCRIT (test code = 42.1 % 34.0-45.0 52220-4) MEAN CORPUSCULAR VOLUME 88.8 fL 80.0-99.0 (test code = 59086-2) MEAN CORPUSCULAR 28.7 PG 25.0-33.0 HEMOGLOBIN (test code = 75928-2) MEAN CORPUSCULAR See_Comment [Automated message] HEMOGLOBIN CONC (test The sy stem which code = 72050-1) generated th is result transmitted ref erence range: 31.0 - 3 6.0 G/DL. The refer ence range was not u sed to interpret this result as normal/abnor mal. RED CELL DISTRIBUTION 16.2 % 11.5-15.0 H WIDTH (test code = 76639-4) NEUTROPHILS % (test code 66 % = 23249-6) LYMPHOCYTES % (test code 23 % = 63118-7) MONOCYTES % (test code = 10 % 73780-3) EOSINOPHILS % (test code 1 % = 87119-7) BASOPHILS % (test code = 0 % 48998-6) PLATELET COUNT (test See_Comment TESTIN G PERFORMED AT code = 71048-6) [facility], [address], JAN[address] [place] [address] CLIA NO. [id number] [Aut omated message] The sy stem which generated this result transmit tom reference range : 130 - 400 K/UL. The reference range was not used to int erpret this result as normal/abnormal . NEUTROPHILS ABSOLUTE See_Comment [Autom ated message] COUNT (test code = The syste m which 77798-1) generated this result transmitted ref erence range: 1.50 - 7 .50 K/UL. The refer ence range was not u sed to interpret this result as normal/abnor mal. LYMPHOCYTES ABSOLUTE See_Comment [Autom ated message] COUNT (test code = The syste m which 10807-9) generated this result transmitted ref erence range: 1.00 - 4 .00 K/UL. The refer ence range was not u sed to interpret this result as normal/abnor mal. MONOCYTES ABSOLUTE COUNT See_Comment [A utomated message] (test code = 96386-3) The sy stem which generated this result transmitted ref erence range: 0.20 - 1 .00 K/UL. The refer ence range was not u sed to interpret this result as normal/abnor mal. BASOPHILS ABSOLUTE COUNT See_Comment Un less Otherwise (test code = 07133-5) Indica tom, All Testing Perform ed At: [facility], [address] [facility], [place] [address] Laborator y Director: Robbie Wagner M.D. CLIA Number [id number] Cap Accreditation N o. [id number] [Autom ated message] The sy stem which generated this result transmit tom reference range : 0.00 - 0.20 K/UL. Th e reference range was not used to int erpret this result as normal/abnormal . Lab Interpretation (test Abnormal code = 46095-4) [facility], [id number] 07:33:00T2N0 bladder cancer restagingPlease compare to prior imagingSchedule early to mid October 2021Unlisted Reason for Exam - Click Yes and Enter Reason Below->YesUnlisted Reason for Exam->Malignant neoplasm of overlapping sites of bladderIs this for enterography?->NoWill this procedure require oralcontrast?->No [facility] MELENDEZ : 1945 Sex: [...] renal collecting system. Status post cystectomy, with Mcpherson pouch. Pouch wall remains mildly thickened, but [...] to follow-up. Persistent wall thickening of the Mcpherson pouch. Nonew disease identified in the abdomen or pelvis. Cholelithiasis. Signed: Beto Bianchi MDReport Verified Date/Time: 11/03/2021 07:33:51 CT, CHEST, WITH IV [id number] 07:33:00T2N0 bladder cancer restagingPlease compare to prior [...] renal collecting system. Status post cystectomy, with Mcpherson pouch. Pouch wall remains mildly thickened, but [...] to follow-up. Persistent wall thickening of the Mcpherson pouch. Nonew disease identified in the abdomen or pelvis. Cholelithiasis. Signed: Beto Bianchiort Verified Date/Time: 11/03/2021 07:33:51 POCT URINALYSIS [id number] 00:00:00 Test Item Value Reference Range Interpretation Comments COLOR UA (test code = 5778-6) Yellow YELLOW/STRAW CLARITY UA (test code = 26140-3) Clear CLEAR GLUCOSE UA (test code = 5792-7) Negative NEGATIVE BILIRUBIN UA (test code = 5770-3) Negative NEGATIVE KETONES UA (test code = 66154-6) Negative NEGATIVE SPECIFIC GRAVITY UA (test code [...] NEGATIVE REDUCING SUBSTANCES URINE (test code = 83870-6) [facility], WITH IV [id number] 13:55:00Unlisted Reason for Exam - Click Yes and Enter Reason Below->YesUnlisted Reason for Exam->Malignant neoplasm of overlapping sites of bladder [facility] : 1945 Sex: FFINAL [...] thickening. Patient is status post cystectomy, with Mcpherson pouch. Pouch wall is mildly thickened. Uterus is also absent. No adnexal mass. There is no adenopathy. No ascites. Bony structures demonstrate degenerative changes. No suspicious bony lesion is identified. Impression: Persistent wall thickening of the Mcpherson pouch. No metastatic disease is identified in the chest, abdomen or pelvis. Cholelithiasis. Signed: Beto Bianchi MDReport Verified Date/Time: 07/29/2021 13:55:07 Reading Location: [facility] C013X [facility] Consult Reading Room CT, ABDOMEN 2021-07-29 13:55:00Unlisted Reason for Exam - Click Yes and Enter Reason Below- >YesUnlisted Reason for Exam->Malignant neoplasm of overlapping sites of bladderWill this procedure require oral contrast?->No [facility] : 1945 Sex: FFINAL [...] thickening. Patient is status post cystectomy, with Mcpherson pouch. Pouch wall is mildly thickened. Uterus is also absent. No adnexal mass. There is no adenopathy. No ascites. Bony structures demonstrate degenerative changes. No suspicious bony lesion is identified. Impression: Persistent wall thickening of the Mcpherson pouch. No metastatic disease is identified in the chest, abdomen or pelvis. Cholelithiasis. Signed: Beto Bianchi Verified Date/Time: 07/29/2021 13:55:07 Reading Location: [facility] C013X [facility] Consult Reading Room POC-Creatinine 2021-07-29 13:03:28 Test Item Value Reference Range Interpretation Comments POC-Creatinine (test 1.0 mg/dL 0.6-1.3 : TESTE D AT [facility] 7200 code = 77476-6) [place] [address] 0: Livery Car Driver/Techni kylie ID = [id number] for Penny , Carri POC-EGFR (test code 54 mL/min/1.73M2 = 70775-7) [facility] [id number] 13:03:28 Test Item Value Reference Range Interpretation Comments POC-Creatinine (test 1.0 mg/dL 0.6-1.3 : TESTE D AT [facility] 7200 code = 21932-2) [place] 0[address]683 0: Livery Car Driver/Techni kylie ID = [id number] for Penny , Carri POC-EGFR (test code 54 mL/min/1.73M2 = 62360-1) [facility] [id number] 13:03:28 Test Item Value Reference Range Interpretation Comments POC-Creatinine (test 1.0 mg/dL 0.6-1.3 : TESTE D AT [facility] 7200 code = 25914-8) [place] 065683 0: Livery Car Driver/Techni kylie ID = [id number] for Penny , Carri POC-EGFR (test code 54 mL/min/1.73M2 = 24559-2) [facility] [id number] 13:03:28 Test Item Value Reference Range Interpretation Comments POC-Creatinine (test 1.0 mg/dL 0.6-1.3 : TESTE D AT [facility] 7200 code = 1859) [place] [address]53 0: Livery Car Driver/Techni kylie ID = [id number] for Penny , Carri POC-EGFR (test code 54 mL/min/1.73M2 = 1860) [facility] [id number] 13:03:28 Test Item Value Reference Range Interpretation Comments POC-CREATININE 1.0 mg/dL 0.6-1.3 : TESTED AT [facility] ([facility]) (test [address] [facility] code = 1859) [facility] 7 8230: Livery Car Driver/Techni kylie ID = [id number] for Penny, Carri POC-EGFR 54 mL/min/1.73M2 ([facility]) (test code = 1860) CT, [id number] 12:39:00Restaging bladder cancerUnlisted Reason for Exam - Click Yes and Enter Reason Below->YesUnlisted Reason for Exam->Malignant neoplasm of overlapping sites of bladderWill this procedure require oral contrast?->[facility] : 1945 Sex: FFINAL [...] Persistent mild segmental wall thickening of the Jazzy pouch. No new disease identified inthe chest, abdomen or pelvis. Signed: Beto Bianchi Verified Date/Time: 05/03/2021 12:39:20 Reading Location: [address] Ortho Consult Reading Room CT, CHEST, WITH IV [id number] 12:39:00Restaging bladder cancerUnlisted Reason for Exam - Click Yes and Enter Reason Below- >YesUnlisted Reason for Exam->Malignant neoplasm of overlapping sites of bladderCH[facility] : 1945 Sex: FFINAL [...] is mild degree of cortical scarring in theleft kidney. There is extrarenal pelvis bilaterally, no significant hydronephrosis. Status post cystectomy with Jazzy pouch. There is mild persistent segmental pouch wall thickening. No evidence of bowel obstruction, or abnormal bowel wall thickening. No adenopathy or mass lesion is identified. No ascites. Bony structures demonstrate degenerative changes. No suspicious bony lesion is identified. Impression: Persistent mild segmental wall thickening of the Mcpherson pouch. No new disease identified in the chest, abdomen or pelvis. Signed: Beto Bianchi MDReport Verified Date/Time: 05/03/2021 12:39:20 Reading Location: [facility] C013X Ortho Consult Reading Room Electronically signed by: BETO BIANCHI M.D. on 12:39 [id number] 11:16:33 Test Item Value Reference Range Interpretation Comments POC-CREATININE 1.0 mg/dL 0.6-1.3 : TESTED AT [facility] ([facility]) (test [address] [facility] code = 1859) [facility] 7 5206: Livery Car Driver/Techni kylie ID = [id number] for Nacho Gomez POC-EGFR 54 mL/min/1.73M2 ([facility]) (test code = 1860) CT, [id number] 13:16:00Restaging bladder cancerUnlisted Reason for Exam - Click Yes and Enter Reason Below->YesUnlisted Reason for Exam->Malignant neoplasm of overlapping sites of bladderWill this procedure require oral contrast?->No[facility] : 1945 Sex: FFINAL REPORT CT of the chest, abdomen and pelvis, with contrast Clinical History: Unlisted Reason for ExamMalignant neoplasm of overlapping sites of bladder Technique: CT of the chest, abdomen and pelvis is performed with intravenous contrast administration. This exam was performed according to our departmental dose optimization program which includes automated exposure contr ol, adjustment of the mA and/or kV according to patient's size and/or use of iterative reconstructive technique. Comparison Film: October 04, 2020 and July 17, 2020 Discussion: There is a ajtou-glrbiLtwa-Q-Cath. No significant vallecular, axillary, mediastinal or hilar lymphadenopathy. Heart and per icardium are unremarkable. There is no mass or consolidation. No new pulmonary nodule is identified.No bronchiectasis or bronchial wall thickening. No liver mass is identified. A few tiny stones are suspected in the gallbladder. No ductal dilatation. Spleen, pancreas, and adrenal glands are normal. Kidneys demonstrate no mass, or radiopaque stone. Prominent bilateral extrarenal pelvises appear unchanged. Patient is status post cystectomy with Mcpherson pouch. Pouch wall thickening has decreased but there is persistent mild wall thickening anteriorly. No bowel obstruction, or abnormal bowel wall thickening. There is no ascites, free air or adenopathy. Bony structures demonstrate degenerative changes. No suspicious bony lesion is identified. Impression: No metastatic disease identified in the chest,abdomen or pelvis. Decreased wall thickening of the Mcpherson pouch. Signed: Beto Bianchi MDRort Verified Date/Time: 01/18/2021 13:16:05 Reading Location: [facility] C013X [facility] Consult Reading Room [facility] signed by: BETO BIANCHI M.D. on 01/18/2021 01:16 PMCT, CHEST, WITH IV CONTRAST 2021-01-18 13:16:00Restaging bladder cancerUnlisted Reason for Exam - Click Yes and Enter Reason Below->YesUnlisted Reason for Exam->Malignant neoplasm of overlapping sites of bladder [facility] : 1945 Sex: FFINAL REPORT CT of the chest, abdomen and pelvis, with contrast Clinical History: Unlisted Reason for ExamMalignant neoplasm of overlapping sites of bladder Technique: CT of the chest, abdomen and pelvis is performed with intravenous contrast administration. This exam was performed according to our departmental dose optimization program which includes automated exposure contr ol, adjustment of the mA and/or kV according to patient's size and/or use of iterative reconstructive technique. Comparison Film: October 04, 2020 and July 17, 2020 Discussion: There is a gdwua-xpdcuWfmk-A-Cath. No significant vallecular, axillary, mediastinal or hilar lymphadenopathy. Heart and per icardium are unremarkable. There is no mass or consolidation. No new pulmonary nodule is identified.No bronchiectasis or bronchial wall thickening. No liver mass is identified. A few tiny stones are suspected in the gallbladder. No ductal dilatation. Spleen, pancreas, and adrenal glands are normal. Kidneys demonstrate no mass, or radiopaque stone. Prominent bilateral extrarenal pelvises appear unchanged. Patient is status post cystectomy with Jazzy pouch. Pouch wall thickening has decreased but there is persistent mild wall thickening anteriorly. No bowel obstruction, or abnormal bowel wall thickening. There is no ascites, free air or adenopathy. Bony structures demonstrate degenerative changes. No suspicious bony lesion is identified. Impression: No metastatic disease identified in the chest,abdomen or pelvis. Decreased wall thickening of the Mcpherson pouch. Signed: Beto Bianchieport Verified Date/Time: 01/18/2021 13:16:05 Reading Location: [facility] B[facility] C013X Ortho Consult Reading Room [facility] signed by: BETO BIANCHI M.D. on 01/18/2021 01:16 [id number] 12:41:00 Test Item Value Reference Range Interpretation Comments POC-CREATININE 1.0 mg/dL 0.6-1.3 : TESTED AT [facility] ([facility]) (test [address] code = 1859) A, [facility] 7 6502: Livery Car Driver/Techni kyile ID = [id number] for MANNY ISLAS POC-EGFR 54 mL/min/1.73M2 ([facility]) (test code = 1860) CT, CHEST, WITH IV [id number] 10:47:00Unlisted Reason for Exam - Click Yes and Enter Reason Below->YesUnlisted Reason for Exam->Malignant neoplasm of overlapping sites of bladder [facility] : 1945 Sex: FFINAL [...] April 25, 2020 Discussion: There is a goyus-wgkhxEcgp-B-Cath. No supraclavicular, axillary, mediastinal or hilar lymphadenopathy. [...] stone. Patient is status post cystectomy with Mcpherson pouch. There ispersistent wall thickening along the [...] pelvis. Persistent medial wall thickening of the Mcpherson pouch, suggest attention on follow-up exams. This finding can also be correlated with urinalysis to exclude infection. Signed: Beto Bianchi MDReport Verified Date/Time: 10/04/2020 10:47:02 Reading Location: [facility] C013X [facility] Consult Reading Room CT, [id number] 10:47:00Unlisted Reason for Exam - Click Yes and Enter Reason Below->YesUnlisted Reason for Exam->Malignant neoplasm of overlapping sites of bladderWill this procedure require oral contrast?->Yes [facility] : 1945 Sex: [...] April 25, 2020 Discussion: There is a gomoa-yschoQyls-C-Cath. No supraclavicular, axillary, mediastinal or hilar lymphadenopathy. [...] stone. Patient is status post cystectomy with Mcpherson pouch. There ispersistent wall thickening along the [...] Bianchi Verified Date/Time: 10/04/2020 10:47:02 Reading Location: [address] Ortho Consult Reading Room -[id number] 08:59:00 Test Item Value Reference Range Interpretation Comments POC-CREATININE 1.0 mg/dL 0.6-1.3 : TESTED AT [facility] ([facility]) (test [address] [facility] code = 1859) A, [facility] 7 6723: Livery Car Driver/Techni kylie ID = [id number] for MANNY ISLAS POC-EGFR 54 mL/min/1.73M2 ([facility]) (test code = 1860) US PELVIS COMPLETE WITH [id number] 23:47:141. ?Status post hysterectomy. Bilateral ovaries were not visualized, may besurgically absent. Preliminary Report Dictated by Resident: KrystalTeo Bose MD., have reviewed this study and agree with the abovereport.EXAM: US PELVIS COMPLETE WITH TRANSVAGINAL HISTORY: 74 years -old female status post cystectomy and hysterectomy withpost menopausal bleeding . TECHNIQUE: Transabdominal and transvaginal ultrasound imaging of the pelviswas performed including color Doppler evaluation. Plastic Tub[employer] Insulation Supervisor imageswere obtained for the record. COMPARISON: None FINDINGS: Uterus: Status post hysterectomy. The vagina cuff is unremarkable. Right Adnexa:Ovary: Not visualized Left Adnexa:Ovary : Not vis ualized. Cul-de-sac: No free fluid. [facility], Radiant Results Inft User - 07/19/2020 5:48 PM CSTEXAM: USPELVIS COMPLETE WITH TRANSVAGINALHISTORY: 74 years -old female status post cystectomy and hysterectomy withpost menopausal bleeding . TECHNIQUE: Transabdominal and transvaginal ultrasound imaging of the pelviswas performed including color Doppler evaluation. Plastic Tubing Insulation Supervisor imageswere obtained for the record.COMPARISON: NoneFINDINGS:Uterus: Status post hysterectomy. The vagina cuff is unremarkable.Right Adnexa:Ovary: Not visualizedLeft Adnexa:Ovary : Not visualized.Cul-de-sac: No free fluid.IMPRESSION1. Status post hysterectomy. Bilateral ovaries were not visualized, may besurgically absent.Preliminary Report Dictated by Resident: Teo Valdes MD., have reviewed this study and agree with the abovereport.[facility] HEAD [id number] 23:45:31 Nodule 1 located in the upper [...] 1, 3 and 5 years(from date of i nitial exam 07/19/2020) [facility], Radiant Results Inft User [...] described below (TR1) is 0.The number of mixedcystic and solid nodules >/=1.5cm not described below(TR2) [...] reviewed this study and agree with the abovereport.[facility]EN[facility] MAMMO[facility] [id number] 18:20:10Examination:BI SCREENING MAMMOGRAM BILATERAL History:Patient is 74 [...] - Bilateral BI-RADS Category: Both 2 - BenignUnUT [facility] WITH [facility] CONTRAST 2020-07-17 15:58:00Unlisted Reason for Exam - Click Yes and Enter Reason Below- >YesUnlisted Reason for Exam->Malignant neoplasm of overlapping sites of bladderRUSSELL [facility]A MERCAD[facility] : 1945 Sex: FFINAL [...] cystectomy. There is a right lower quadrant Mcpherson pouch with a midline urostomy. There is [...] Prasad MDReport Verified Date/Time: 07/17/2020 15:58:18 CT, [id number] 15:58:00Unlisted Reason for Exam - Click Yes and Enter Reason Below->YesUnlisted Reason for Exam->Malignant neoplasm of overlapping sites of bladder [facility] : 1945 Sex: FFINAL [...] are clear.HEART AND MEDIASTINUM: The thyroid is enlarged. No significant mediastinal, hilar, or [...] ORGANS/BLADDER: Prior hysterectomy and cystectomy. There is aright lower quadrant Jazzy pouch with a midline [...] fairly abrupt narrowing at the right ureteropelvic junction.An accessory right renal artery does cross at this level and could be the underlying cause. However,a urogram or pouchogram could be considered to evaluate for an underlying intrinsic obstruction. 3.No definite metastatic disease in the chest, abdomen, or pelvis. Signed: Gio Prasad MDReport Verified Date/Time: 07/17/2020 15:58:18 -[id number] 10:41:00 Test Item Value Reference Range Interpretation Comments POC-CREATININE 0.8 mg/dL 0.6-1.3 : TESTED AT [facility] ([facility]) (test [address] [facility] code = 1859) A, [facility] 7 [address]: Livery Car Driver/Techni kylie ID = [id number] for MANNY ISLAS POC-EGFR 70 mL/min/1.73M2 ([facility]) (test code = 1860) POCT URINALYSIS [id number] 00:00:00 Test Item Value Reference Range Interpretation Comments COLOR UA (test code = 5778-6) Yellow YELLOW/STRAW CLARITY UA (test code = 65089-7) Clear CLEAR GLUCOSE UA (test code = 5792-7) Negative NEGATIVE BILIRUBIN UA (test code = 5770-3) Negative NEGATIVE KETONES UA (test code = 80790-5) Negative NEGATIVE SPECIFIC GRAVITY UA (test code [...] NEGATIVE REDUCING SUBSTANCES URINE (test code = 81227-3) Lab Interpretation (test code = Abnormal 70791-9) [facility] [id number] 13:05:00 Test Item Value Reference Range Interpretation Comments BUN (test code = BUN) 02-10 [facility]2020-10-23 13:05:00 Test Item Value Reference Range Interpretation Comments Creatinine Lvl (test code = Creatinine 0.83 0.60-0.93 Lvl) [facility]2020-10-23 13:05:00 Test Item Value Reference Range Interpretation Comments eGFR NON-AFR. SAUDI ARABIAN (test code = 69 eGFR NON-AFR. SAUDI ARABIAN) [facility]2020-10-23 13:05:00 Test Item Value Reference Range Interpretation Comments eGFR (test code = eGFR 81 ) [facility]2020-10-23 13:05:00 Test Item Value Reference Range Interpretation Comments B/C Ratio (test code = B/C NOT APPLICABLE 6-22 Ratio) [facility]2020-10-23 13:05:00 Test Item Value Reference Range Interpretation Comments BUN (test code = BUN) 02-10 [facility]2020-10-23 13:05:00 Test Item Value Reference Range Interpretation Comments Creatinine Lvl (test code = Creatinine 0.83 0.60-0.93 Lvl) [facility]2020-10-23 13:05:00 Test Item Value Reference Range Interpretation Comments eGFR NON-AFR. SAUDI ARABIAN (test code = 69 eGFR NON-AFR. SAUDI ARABIAN) [facility]2020-10-23 13:05:00 Test Item Value Reference Range Interpretation Comments eGFR (test code = eGFR 81 ) [facility]2020-10-23 13:05:00 Test Item Value Reference Range Interpretation Comments B/C Ratio (test code = B/C NOT APPLICABLE 22 Ratio) [facility] [id number] 13:05:00 Test Item Value Reference Range Interpretation Comments BUN (test code = BUN) 8 02-10 [facility] [id number] 13:05:00 Test Item Value Reference Range Interpretation Comments Creatinine Lvl (test code = Creatinine 0.83 0.60-0.93 Lvl) [facility] [id number] 13:05:00 Test Item Value Reference Range Interpretation Comments eGFR NON-AFR. SAUDI ARABIAN (test code = 69 eGFR NON-AFR. SAUDI ARABIAN) [facility] [id number] 13:05:00 Test Item Value Reference Range Interpretation Comments eGFR (test code = eGFR 81 ) [facility] [id number] 13:05:00 Test Item Value Reference Range Interpretation Comments B/C Ratio (test code = B/C NOT APPLICABLE 01-08 Ratio) [facility] [id number] 13:05:00 Test Item Value Reference Range Interpretation Comments BUN (test code = BUN) 8 02-[address] [facility]annCHEM [id number] 13:05:00 Test Item Value Reference Range Interpretation Comments Creatinine Lvl (test code = Creatinine 0.83 0.60-0.93 Lvl) [facility] [id number] 13:05:00 Test Item Value Reference Range Interpretation Comments eGFR NON-AFR. SAUDI ARABIAN (test code = 69 eGFR NON-AFR. SAUDI ARABIAN) [facility] [id number] 13:05:00 Test Item Value Reference Range Interpretation Comments eGFR (test code = eGFR 81 ) [facility] [id number] 13:05:00 Test Item Value Reference Range Interpretation Comments B/C Ratio (test code = B/C NOT APPLICABLE 01-08 Ratio) [facility] WITH IV [id number] 10:03:00Unlisted Reason for Exam - Click Yes [...] Shankar MDReport VerifiedDate/Time: 04/26/2020 10:03:24 Reading Location: [facility] Diagnostic Imaging Reading Room - [place] [address] [address], [id number] 10:03:00Unlisted Reason for Exam - Click Yes [...] Shankar MDReport VerifiedDate/Time: 04/26/2020 10:03:24 Reading Location: [facility] Diagnostic Imaging Reading Room - [place] [address] 1129 -[id number] 09:03:00 Test Item Value Reference Range Interpretation Comments POC-CREATININE 0.8 mg/dL 0.6-1.3 : TESTED AT [facility] ([facility]) (test [address] code = 1859) [place] [address]: Livery Car Driver/Techni kylie ID = [id number] for GERSON WOODSON ICA POC-EGFR 70 mL/min/1.73M2 ([facility]) (test code = 1860) COMPREHENSIVE METABOLIC [id number] 07:49:43 Test Item Value Reference Range Interpretation Comments GLUCOSE (test code = See_Comment H [Autom ated message] 2345-7) The system [employer] generated this result transmitted ref erence range: 70 - 99 MG/DL. The reference r anil was not used to interpret this result as normal/abnor mal. BLOOD UREA NITROGEN See_Comment [Automa tom message] (test code = 3091-6) The [employer] tem which generated this result transmitted ref erence range: 8 - 23 M G/DL. The reference r anil was not used to interpret this result as normal/abnor mal. CREATININE (test code = See_Comment [Au tomated message] 2160-0) The system [employer] generated this result transmitted ref erence range: 0.60 - 1 .30 MG/DL. The refe rence range was not u sed to interpret this result as normal/abnor mal. EGFR AA (test code = See_Comment [Autom ated message] 28209-7) The system [employer] generated this result transmitted ref erence range: >60 ML/MIN/1.73. Th e reference range was not used to int erpret this result as normal/abnormal . EGFR (test code = See_Comment [Automate d message] 08671-3) The system [employer] generated this result transmitted ref erence range: >60 ML/MIN/1.73. Th e reference range was not used to int erpret this result as normal/abnormal . BUN/CREAT RATIO (test See_Comment [Auto mated message] code = 3097-3) The system [employer] generated this result transmitted ref erence range: 6 - 28 R ATIO. The reference r anil was not used to interpret this result as normal/abnor mal. SODIUM (test code = See_Comment [Automa tom message] 2951-2) The system [facility] generated this result transmitted ref erence range: 133 - 14 6 MEQ/L. The refe rence range was not u sed to interpret this result as normal/abnor mal. POTASSIUM (test code = See_Comment [Aut omated message] 2823-3) The system [facility] generated this result transmitted ref erence range: 3.5 - 5. 4 MEQ/L. The refe rence range was not u sed to interpret this result as normal/abnor mal. CHLORIDE (test code = See_Comment [Auto mated message] 2075-0) The system [facility] generated this result transmitted ref erence range: 95 - 107 MEQ/L. The reference r anil was not used to interpret this result as normal/abnor mal. CO2 (test code = See_Comment [Automated message] 1963-8) The system [facility] generated this result transmitted ref erence range: 19 - 31 MEQ/L. The reference r anil was not used to interpret this result as normal/abnor mal. CALCIUM (test code = See_Comment [Autom ated message] 21845-6) The system [facility] [employer] generated this result transmitted ref erence range: 8.5 - 10 .5 MG/DL. The refe rence range was not u sed to interpret this result as normal/abnor mal. PROTEIN TOTAL (test See_Comment [Automa tom message] code = 2885-2) The system [facility] generated this result transmitted ref erence range: 6.1 - 8. 3 G/DL. The reference r anil was not used to interpret this result as normal/abnor mal. ALBUMIN (test code = See_Comment [Autom ated message] 06675-5) The system [facility] generated this result transmitted ref erence range: 3.5 - 5. 2 G/DL. The reference r anil was not used to interpret this result as normal/abnor mal. GLOBULINS, SERUM, TOTAL See_Comment [Au tomated message] (test code = 12975-9) The sy stem which generated this result transmitted ref erence range: 1.9 - 3. 7 G/DL. The reference r anil was not used to interpret this result as normal/abnor mal. A/G RATIO (test code = See_Comment [Aut omated message] 1759-0) The system whic h generated this result transmitted ref erence range: 1.0 - 2. 6 RATIO. The refe rence range was not u sed to interpret this result as normal/abnor mal. BILIRUBIN TOTAL (test See_Comment [Auto mated message] code = 1975-2) The system ich generated this result transmitted ref erence range: <=1.2 MG /DL. The reference r anil was not used to interpret this result as normal/abnor mal. ALKALINE PHOSPHATASE 58 U/L 40-142 (test code = 6768-6) AST (SGOT) (test code = 22 U/L 9-40 1920-8) ALT (SGPT) (test code = 17 U/L 5-40 Unl ess Otherwise 1744-2) Indicated, All Testing Performed At: [facility], [address] [place] [address] [facility] y Director: Robbie Wagner M.D. CLIA Number [id number] [facility] [place] Accreditation N o. [id number] Lab Interpretation Abnormal (test code = 21840-5) [facility] W/AUTO DIFF WITH [id number] 06:08:57 Test Item Value Reference Range Interpretation Comments WHITE BLOOD CELL COUNT See_Comment [Aut omated message] (test code = 79801-3) The sy stem which generated this result transmitted ref erence range: 3.5 - 10 .0 K/UL. The refer ence range was not u sed to interpret this result as normal/abnor mal. RED BLOOD CELL COUNT See_Comment L [Autom ated message] (test code = 97241-0) The sy stem which generated this result transmitted ref erence range: 3.80 - 5 .20 M/UL. The refer ence range was not u sed to interpret this result as normal/abnor mal. HEMOGLOBIN (test code = See_Comment L [Au tomated message] 718-7) The system [employer] generated this result transmitted ref erence range: 12.0 - 1 6.0 G/DL. The refer ence range was not u sed to interpret this result as normal/abnor mal. HEMATOCRIT (test code = 31.6 % 35-46 L 43888-1) MEAN CORPUSCULAR VOLUME 91.1 fL 80-99 (test code = 78689-5) MEAN CORPUSCULAR 29.7 PG 25-34 HEMOGLOBIN (test code = 25671-4) MEAN CORPUSCULAR See_Comment [Automated message] HEMOGLOBIN CONC (test The sy stem which code = 42790-6) generated th is result transmitted ref erence range: 31.0 - 3 6.0 G/DL. The refer ence range was not u sed to interpret this result as normal/abnor mal. RED CELL DISTRIBUTION 14.5 % 11.5-15 WIDTH (test code = 56690-5) NEUTROPHILS % (test code 62.8 % 40-75 = 61067-7) LYMPHOCYTES % (test code 23.4 % 20-45 = 42093-0) MONOCYTES % (test code = 9.4 % 4-12 84395-8) EOSINOPHILS % (test code 3.8 % 0-7 = 14612-8) BASOPHILS % (test code = 0.6 % 0-2 35157-6) PLATELET COUNT (test See_Comment Unless Otherwise code = 82604-0) Indicated, A ll Testing Perform ed At: [facility], [address] [place] [address] [facility] y Director: Robbie Wagner M.D. CLIA Number [id number] [employer] [place]. [id number] [Autom ated message] The sy stem which generated this result transmit tom reference range : 130 - 400 K/UL. The reference range was not used to int erpret this result as normal/abnormal . Lab Interpretation (test Abnormal code = 92408-2) [facility]F [facility]2020-02-10 01:04:00 Test Item Value Reference Range Interpretation Comments SARS-COV2/RT-PCR (test code Negative Not Detected, Negative, = 0939639) See external report for linked test SARS-COV-2 PERFORMING LAB CPL (test code = 1564146) URINE [id number] 12:03:00 Test Item Value Reference Range Interpretation Comments CULTURE (BEAKER) (test >100,000 col/mL skin code = 1095) wendy HEMOGLOBIN AND [id number] 14:07:00 Test Item Value Reference Range Interpretation Comments HEMOGLOBIN (BEAKER) (test code = 7.5 GM/DL 11.2-15.7 L 410) HEMATOCRIT (BEAKER) (test code = 23.8 % 34.1-44.9 L 411) Livery Car Driver ID - 6000BASIC METABOLIC [id number] 07:06:00 Test Item Value Reference Range Interpretation [...] S NOT APPLICABLE FOR DIALYSIS PATIEN TS. Livery Car Driver ID - [place] [id number] 07:03:00 Test Item Value Reference Range Interpretation Comments PHOSPHORUS (BEAKER) (test code = 3.7 mg/dL 2.3-4.7 604) Livery Car Driver ID - [place] [id number] 07:03:00 Test Item Value Reference Range Interpretation Comments MAGNESIUM (BEAKER) (test code = 1.9 mg/dL 1.6-2.6 627) Livery Car Driver ID - [place] LHEMOGLOBIN AND [id number] 06:03:00 Test Item Value Reference Range Interpretation Comments HEMOGLOBIN (BEAKER) (test code = 7.3 GM/DL 11.2-15.7 L 410) HEMATOCRIT (BEAKER) (test code = 22.5 % 34.1-44.9 L 411) Livery Car Driver ID - 6000BASIC METABOLIC [id number] 08:13:00 Test Item Value Reference Range Interpretation [...] S NOT APPLICABLE FOR DIALYSIS PATIEN TS. Livery Car Driver ID - JULI [id number] 08:10:00 Test Item Value Reference Range Interpretation Comments MAGNESIUM (BEAKER) (test code = 1.9 mg/dL 1.6-2.6 627) Livery Car Driver ID - JULI [id number] 08:10:00 Test Item Value Reference Range Interpretation Comments PHOSPHORUS (BEAKER) (test code = 4.2 mg/dL 2.3-4.7 604) Livery Car Driver ID - NTPOperator ID - JULI CHEMOGLOBIN AND [id number] 05:10:00 Test Item Value Reference Range Interpretation Comments HEMOGLOBIN (BEAKER) (test code = 8.1 GM/DL 11.2-15.7 L 410) HEMATOCRIT (BEAKER) (test code = 24.3 % 34.1-44.9 L 411) Livery Car Driver ID - [id number] 07:07:00 Test Item Value Reference Range Interpretation Comments PHOSPHORUS (BEAKER) (test code = 2.8 mg/dL 2.3-4.7 604) Livery Car Driver ID - [place] [id number] 07:07:00 Test Item Value Reference Range Interpretation Comments MAGNESIUM (BEAKER) (test code = 1.6 mg/dL 1.6-2.6 627) Livery Car Driver ID - [place] LBASIC METABOLIC [id number] 07:07:00 Test Item Value Reference Range Interpretation [...] S NOT APPLICABLE FOR DIALYSIS PATIEN TS. Livery Car Driver ID - [place] LHEMOGLOBIN AND [id number] 06:28:00 Test Item Value Reference Range Interpretation Comments HEMOGLOBIN (BEAKER) (test code = 8.0 GM/DL 11.2-15.7 L 410) HEMATOCRIT (BEAKER) (test code = 24.6 % 34.1-44.9 L 411) Livery Car Driver ID - DestinRAD, CHEST, 1 VIEW, NON [id number] 18:35:00Reason for exam:->check PICC placementShould this be [...] MDReport Verified Date/Time: 02/03/2020 18:35:36 Reading Location: [facility] Reading Room PHOSPHORUS 2020-02-03 07:55:00 Test Item Value Reference Range Interpretation Comments PHOSPHORUS (BEAKER) (test code = 2.4 mg/dL 2.3-4.7 604) Livery Car Driver ID - DA [id number] 07:55:00 Test Item Value Reference Range Interpretation Comments MAGNESIUM (BEAKER) (test code = 1.7 mg/dL 1.6-2.6 627) Livery Car Driver ID - DA FBASIC METABOLIC [id number] 07:55:00 Test Item Value Reference Range Interpretation [...] S NOT APPLICABLE FOR DIALYSIS PATIEN TS. Livery Car Driver ID - [place] FHEMOGLOBIN AND [id number] 06:56:00 Test Item Value Reference Range Interpretation Comments HEMOGLOBIN (BEAKER) (test code = 8.2 GM/DL 11.2-15.7 L 410) HEMATOCRIT (BEAKER) (test code = 24.2 % 34.1-44.9 L 411) Livery Car Driver ID - 6000HEMOGLOBIN AND [id number] 19:28:00 Test Item Value Reference Range Interpretation Comments HEMOGLOBIN (BEAKER) (test code = 8.3 GM/DL 11.2-15.7 L 410) HEMATOCRIT (BEAKER) (test code = 25.0 % 34.1-44.9 L 411) Livery Car Driver ID - [id number] (HEMOGRAM ONLY)2020-02-02 05:09:00 Test [...] WBC 0-0 (BEAKER) (test code = 413) [id number] 04:19:00 Test Item Value Reference Range Interpretation Comments PHOSPHORUS (BEAKER) (test code = 1.9 mg/dL 2.3-4.7 L 604) Livery Car Driver ID - PIAYA [id number] 04:19:00 Test Item Value Reference Range Interpretation Comments MAGNESIUM (BEAKER) (test code = 1.9 mg/dL 1.6-2.6 627) Livery Car Driver ID - PIAYA LBASIC METABOLIC [id number] 04:19:00 Test Item Value Reference Range Interpretation [...] S NOT APPLICABLE FOR DIALYSIS PATIEN TS. Livery Car Driver ID - PIAYA LHEMOGLOBIN AND [id number] 04:00:00 Test Item Value Reference Range Interpretation Comments HEMOGLOBIN (BEAKER) 5.9 GM/DL 11.2-15.7 LL [address] alfonzo candelaria per (test code = 410) [id number] HEMATOCRIT (BEAKER) 18.0 % 34.1-44.9 L (test code = 411) Livery Car Driver ID - 6000TISSUE [id number] 13:30:00Surgical Pathology Report Case: [id number] Authorizing Provider: Vita Jaimes MD Collected: 01/30/2020 09:40 AM Ordering Location: [facility] Received: 01/30/2020 10:59 AM SERVICES Pathologist: Reinaldo Matta MD Specimens: A) - Lymph Node, RIGHT COMMON ILIAC LYMPH NODES B) - Lymph Node, RIGHT EXTERNAL ILIAC LYMPH NODES C) - Lymph Node, RIGHT OBTURATOR LYMPH NODES D) - LymphNode, RIGHT INTERNAL ILIAC LYMPH NODES E) - [...] LYMPH NODES L) - Appendix A. LYMPH NODES,RIGHT COMMON ILIAC, DISSECTION: - THREE BENIGN LYMPH [...] THE TIP Signing Pathologist Direct Phone Line: [phone] signed by Reinaldo Matta MD on 02/01/2020 [...] (pT): pT3a Regional Lymph Nodes (pN): pN0 26102 x [id number] X [id number] x [id number] diagnosis: Malignant neoplasm of the urinary bladder. Procedure: Radical cystectomy with creation of continent diversion, bilateral pelvic lymph node dissection. A. Right common iliac lymph nodes; B. Right external iliac lymph nodes; C. Right obturator lymph node; D. Right internal iliac lymph node; E. Left common iliac lymph nodes;F. Left external iliac lymph nodes; H. Left distalureter; I. Right distal ureter; J. Urinary bladder; K, presacral lymph node; L. AppendixA. Received in formalin labeled with the patient's name, accession number and "right common iliac lymph nodes" giulia yellow-red fibrofatty soft tissue fragment that measures [...] to the largest measuring 2.2 x 1.8 x0.6 cm. Section code: B1, four lymph nodes; [...] eight lymph nodes ranging in size from 0.5x 0.4 x 0.4 up to the largest [...] A surgical clip is present within the specimen.No lymph nodes are grossly identified. Section code: D1, specimen entirely submitted.E. Received in f ormalin labeled with the patient's name, accession number and "left common iliac lymph nodes" are multiple fragments of yellow adipose tissue that measure in aggregate, 4.0 x 4.0 x 0.8 cm. Grossly, three lymph nodes are identified ranging in size from 1.5 x 0.5 x 0.5 cm up to the largest measuring 3.0x 1.3 x 0.6 cm. Section code: E1, [...] specimen is dissected to reveal 5 lymph nod es ranging in size from 0.5 x 0.4 [...] specimen shows a ureter with a lumen measuring0.3 cm in diameter. The specimen is entirely [...] 0.6 cm), left ovary (2.5 x 1.8 x1.1 cm, 1.9 gm), and a portion of [...] lateral margin and 0.3 cm from the ink ed posterior bladder margin. The lesion appears to [...] The endometrial cavity measures 1.5 cm from wromx-bf-yajxx and 3.5 cm in length. The endometrium [...] - orange; uterus anterior - blue; uterus posterior- black. Section code: J1, urethral margin, en face; J2 to J6, bladder ulcerated lesion (lesion #1 with posterior wall); J7, lesion with closest right lateral margin; J8, anterior margin closest to thelesion; J9, left lateral margin closest to the lesion; J10 to J12, smaller lesion (lesion #2) with closest anterior margin; J13, right ureteric orifice; J14, hyperemic bladder mucosa; J15, trigone, community engagement representative section; J16, bladder wall with vagina; [...] surgical margin at distal tip; L2, additional community engagement representative sections from appendix and the mesoappendix. MH/plFROZEN SECTION DIAGNOSIS: FSH: URETER, LEFT DISTAL MARGIN: - NEGATIVE FOR MALIGNANCY This is informed by Dr. Amaro to Dr. Jaimes on January 29, at 11:19 a.m. FSI. RIGHT URETER, RIGHT DISTAL MARGIN: - NEGATIVE FOR MALIGNANCYThis is informed by Dr. Amaro to Dr. Jaimes on January 29 at 11:19 a.m.A-L Performed.HEMOGLOBIN AND [id number] 10:52:00 Test Item Value Reference Range Interpretation Comments HEMOGLOBIN (BEAKER) (test code = 7.1 GM/DL 11.2-15.7 L 410) HEMATOCRIT (BEAKER) (test code = 21.4 % 34.1-44.9 L 411) Livery Car Driver ID - [id number] 06:15:00 Test Item Value Reference Range Interpretation Comments PHOSPHORUS (BEAKER) (test code = 2.5 mg/dL 2.3-4.7 604) Livery Car Driver ID - PIAYA [id number] 06:15:00 Test Item Value Reference Range Interpretation Comments MAGNESIUM (BEAKER) (test code = 1.9 mg/dL 1.6-2.6 627) Livery Car Driver ID - PIAYA LBASIC METABOLIC [id number] 06:15:00 Test Item Value Reference Range Interpretation [...] S NOT APPLICABLE FOR DIALYSIS PATIEN TS. Livery Car Driver ID - PIAYA LHEMOGLOBIN AND [id number] 05:33:00 Test Item Value Reference Range Interpretation Comments HEMOGLOBIN (BEAKER) (test code = 7.0 GM/DL 11.2-15.7 L 410) HEMATOCRIT (BEAKER) (test code = 20.9 % 34.1-44.9 L 411) Livery Car Driver ID - 6000BASIC METABOLIC [id number] 05:02:00 Test Item Value Reference Range Interpretation [...] S NOT APPLICABLE FOR DIALYSIS PATIEN TS. Livery Car Driver ID - [id number] 04:59:00 Test Item Value Reference Range Interpretation Comments PHOSPHORUS (BEAKER) (test code = 4.0 mg/dL 2.3-4.7 604) Livery Car Driver ID - [id number] 04:59:00 Test Item Value Reference Range Interpretation Comments MAGNESIUM (BEAKER) (test code = 1.4 mg/dL 1.6-2.6 L 627) Livery Car Driver ID - DBHEMOGLOBIN AND [id number] 04:41:00 Test Item Value Reference Range Interpretation Comments HEMOGLOBIN (BEAKER) (test code = 9.4 GM/DL 11.2-15.7 L 410) HEMATOCRIT (BEAKER) (test code = 27.9 % 34.1-44.9 L 411) Livery Car Driver ID - 6000BASIC METABOLIC [id number] 16:33:00 Test Item Value Reference Range Interpretation [...] S NOT APPLICABLE FOR DIALYSIS PATIEN TS. Livery Car Driver ID - [id number] 16:29:00 Test Item Value Reference Range Interpretation Comments PHOSPHORUS (BEAKER) (test code = 5.0 mg/dL 2.3-4.7 H 604) Livery Car Driver ID - [id number] 16:29:00 Test Item Value Reference Range Interpretation Comments MAGNESIUM (BEAKER) (test code = 1.2 mg/dL 1.6-2.6 L 627) Livery Car Driver ID - BSCBC W/PLT COUNT & AUTO [id number] 16:14:00 Test Item Value Reference Range Interpretation [...] (BEAKER) (test code = 2801) BLOOD GAS, [id number] 16:08:00 Test Item Value Reference Range Interpretation [...] code = 1819) 100.0 % SODIUM NA-STAT [id number] 16:08:00 Test Item Value Reference Range Interpretation Comments SODIUM (BEAKER) (test code = 381) 133 meq/L 136-145 L GLUCOSE-STAT [id number] 16:08:00 Test Item Value Reference Range Interpretation Comments GLUCOSE RANDOM (BEAKER) (test code 224 mg/dL 70-110 H = 652) HGB/HCT (H&H) - STAT [id number] 16:08:00 Test Item Value Reference Range Interpretation Comments HEMOGLOBIN (BEAKER) (test code = 10.5 g/dL 12.0-15.0 L 410) HEMATOCRIT (BEAKER) (test code = 31.0 % 36.0-45.0 L 411) POTASSIUM-STAT [id number] 16:05:00 Test Item Value Reference Range Interpretation Comments POTASSIUM (BEAKER) (test code = 3.7 meq/L 3.6-5.5 379) CALCIUM, [id number] 14:59:00 Test Item Value Reference Range Interpretation Comments CALCIUM IONIZED (BEAKER) (test 1.07 mmol/L 1.12-1.27 L code = 698) PH, BLOOD (BEAKER) (test code = 7.29 1810) BLOOD GAS, [id number] 14:55:00 Test Item Value Reference Range Interpretation [...] = 1819) 60.0 % Temp 36.3CSODIUM NA-STAT [id number] 14:55:00 Test Item Value Reference Range Interpretation Comments SODIUM (BEAKER) (test code = 381) 134 meq/L 136-145 L Temp 36.3CGLUCOSE-STAT [id number] 14:55:00 Test Item Value Reference Range Interpretation Comments GLUCOSE RANDOM (BEAKER) (test code 226 mg/dL 70-110 H = 652) Temp 36.3CHGB/HCT (H&H) - STAT [id number] 14:55:00 Test Item Value Reference Range Interpretation Comments HEMOGLOBIN (BEAKER) (test code = 10.4 g/dL 12.0-15.0 L 410) HEMATOCRIT (BEAKER) (test code = 31.0 % 36.0-45.0 L 411) Temp 36.3CPOTASSIUM-STAT [id number] 14:51:00 Test Item Value Reference Range Interpretation Comments POTASSIUM (BEAKER) (test code = 3.8 meq/L 3.6-5.5 379) Temp 36.3CBLOOD GAS, [id number] 12:59:00 Test Item Value Reference Range Interpretation [...] (test code = 1819) 60.0 % TEMP-35.7CCALCIUM, [id number] 12:59:00 Test Item Value Reference Range Interpretation Comments CALCIUM IONIZED (BEAKER) (test 1.12 mmol/L 1.12-1.27 code = 698) PH, BLOOD (BEAKER) (test code = 7.37 1810) SODIUM NA-STAT [id number] 12:59:00 Test Item Value Reference Range Interpretation Comments SODIUM (BEAKER) (test code = 381) 133 meq/L 136-145 L TEMP-35.7CPOTASSIUM-STAT [id number] 12:59:00 Test Item Value Reference Range Interpretation Comments POTASSIUM (BEAKER) (test code = 3.4 meq/L 3.6-5.5 L 379) TEMP-35.7CGLUCOSE-STAT [id number] 12:59:00 Test Item Value Reference Range Interpretation Comments GLUCOSE RANDOM (BEAKER) (test code 193 mg/dL 70-110 H = 652) TEMP-35.7CHGB/HCT (H&H) - STAT [id number] 12:59:00 Test Item Value Reference Range Interpretation Comments HEMOGLOBIN (BEAKER) (test code = 8.1 g/dL 12.0-15.0 L 410) HEMATOCRIT (BEAKER) (test code = 24.0 % 36.0-45.0 L 411) TEMP-35.7CBLOOD GAS, [id number] 11:41:00 Test Item Value Reference Range Interpretation [...] code = 1819) 60.0 % SODIUM NA-STAT [id number] 11:41:00 Test Item Value Reference Range Interpretation Comments SODIUM (BEAKER) (test code = 381) 131 meq/L 136-145 L POTASSIUM-STAT [id number] 11:41:00 Test Item Value Reference Range Interpretation Comments POTASSIUM (BEAKER) (test code = 3.4 meq/L 3.6-5.5 L 379) GLUCOSE-STAT [id number] 11:41:00 Test Item Value Reference Range Interpretation Comments GLUCOSE RANDOM (BEAKER) (test code 176 mg/dL 70-110 H = 652) HGB/HCT (H&H) - STAT [id number] 11:41:00 Test Item Value Reference Range Interpretation Comments HEMOGLOBIN (BEAKER) (test code = 9.2 g/dL 12.0-15.0 L 410) HEMATOCRIT (BEAKER) (test code = 27.0 % 36.0-45.0 L 411) CALCIUM, [id number] 11:41:00 Test Item Value Reference Range Interpretation Comments CALCIUM IONIZED (BEAKER) (test 1.08 mmol/L 1.12-1.27 L code = 698) PH, BLOOD (BEAKER) (test code = 7.33 1810) PH, [id number] 11:38:00 Test Item Value Reference Range Interpretation Comments PH ARTERIAL (BEAKER) (test code = 383) 7.35 7.35-7.45 POTASSIUM-STAT [id number] 09:51:00 Test Item Value Reference Range Interpretation Comments POTASSIUM (BEAKER) (test code = 2.3 meq/L 3.6-5.5 LL 379) TEMP-34.8CALCIUM, [id number] 09:50:00 Test Item Value Reference Range Interpretation Comments CALCIUM IONIZED (BEAKER) (test 1.03 mmol/L 1.12-1.27 L code = 698) PH, BLOOD (BEAKER) (test code = 7.40 1810) BLOOD GAS, [id number] 09:49:00 Test Item Value Reference Range Interpretation [...] code = 1819) 60.0 % TEMP-34.8SODIUM NA-STAT [id number] 09:49:00 Test Item Value Reference Range Interpretation Comments SODIUM (BEAKER) (test code = 381) 130 meq/L 136-145 L TEMP-34.8GLUCOSE-STAT [id number] 09:49:00 Test Item Value Reference Range Interpretation Comments GLUCOSE RANDOM (BEAKER) (test code 119 mg/dL 70-110 H = 652) TEMP-34.8HGB/HCT (H&H) - STAT [id number] 09:49:00 Test Item Value Reference Range Interpretation Comments HEMOGLOBIN (BEAKER) (test code = 11.6 g/dL 12.0-15.0 L 410) HEMATOCRIT (BEAKER) (test code = 34.0 % 36.0-45.0 L 411) TEMP-34.8CBC W/PLT COUNT & AUTO [id number] 07:16:00 Test Item Value Reference Range Interpretation [...] 0-1 PERCENT (BEAKER) (test code = 2801) [id number] 14:45:00Medical Cytology Report Case: [id number] Authorizing Provider: Vita Jaimes MD Collected: 01/18/2020 02:09 PM Ordering Location: [facility] Received: 01/18/2020 03:29 PM SERVICES Pat hologist: Reinaldo Matta MD Specimen: Urine, Bladder Wash URINE, BLADDER WASHING (CYTOSPINS): - NEGATIVE FOR MALIGNANCY Signing Pathologist Direct Phone Line: [phone] signed by Reinaldo Matta MD on 01/19/2020 at 2:45 [id number] risk 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 who presents for restaging TURBT prior to RCURINE, BLADDER [id number] mls colorless fluid; 4 cytospinsCollected: [id number]: [id number] [facility], Department of [facility]ology, [address] [place] [address], [facility], [address] [place] [address], [facility], [facility] of [facility], [address] [place] [address], ZLBXEM [id number] 13:07:00Surgical Pathology Report Case: [id number] Authorizing Provider: Vita Jaimes MD Collected: 01/18/2020 02:31 PM Ordering Location: [facility] Received: 01/18/2020 03:17 PM SERVICES Pathologist: Reinaldo Matta MD Specimens: A) - Bladder Biopsy, Right Wall, right posteriorlateral wall for biopsy B) - Bladder Biopsy, 12'o clock bladder neck for bladder biopsy C) - BladderBiopsy, 3'o clock bladder neck for bladder biopsy D) - Bladder Biopsy, 6' o clock bladder neck for b ladder biopsy E) - Bladder Biopsy, 9' o clock bladder neck for bladder biopsy A. URINARY BLADDER, RIGHT POSTERIOR LATERAL WALL, BIOPSY: - PREVIOUS RESECTION SITE CHANGES, NEGATIVE FOR MALIGNANCYB. URINARY BLADDER, 12 O'CLOCK BLADDER NECK, BIOPSY: - NONKERATINIZING SQUAMOUS MUCOSA, NEGATIVE FOR MALIGNANCYC. 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 - MUCOSA AND MUSCULARIS PROPRIA ARE ABSENTD. URINARY BLADDER, 6 O'CLOCK BLADDER NECK, BIOPSY: - SQUAMOUS METAPLASIA, NEGATIVE FOR MALIGNANCYE. URINARY BLADDER, 9 O'CLOCK BLADDER NECK, BIOPSY: - SQUAMOUS METAPLASIA, NEGATIVE FOR MALIGNANCY Signing Pathologist Direct Phone Line: [phone] signed by Reinaldo Matta MD on 01/19/2020 at 1:07 PM90% of this tumor shows the plasmacytoid morphology as documented on a previous biopsy.16825 x 5 Malignant neoplasm of overlapping sites of bladder A. Bladder biopsy, right wallB. Bladder biopsyC. Bladder bi opsyB. Bladder biopsyE. Bladder biopsyA. Received in formalin labeled with the patient's name, accession number and "right posterior lateral bladder wall" is a 1.5 x 0.7 x 0.3 cm aggregate of buck-pink soft tissue which is submitted in toto in A1.B. Received in formalin labeled with the patient's name,accession number and "bladder biopsy 12:00 bladder neck" is a 0.2 x 0.2 x 0.1 cm lam-white soft tissue which is filtered and submitted in toto in B1.C. Received in formalin labeled with the patient's name, accession number and "bladder biopsy 3:00 bladder neck" is a 0.2 x 0.1 x 0.1 cm lam-white softtissue which is submitted in toto in C1.D. Received in formalin labeled with the patient's name, accession number and "bladder biopsy 6:00 bladder neck" is a 0.1 x 0.1 x 0.1 cm buck soft tissue fragmentwhich is submitted in toto in D1.E. Received in formalin labeled the patient's name, accession number and "bladder biopsy 9:00 bladder neck" is a 0.1 x 0.1 by less than 0.1 cm lam-white soft tissue which is submitted in toto in A1.JONATHAN Santizo (ASCP)cmPerformed.CYTOLOGY [id number] 17:00:00 Test Item Value Reference Range Interpretation Comments CYTOLOGY RESULT POINTER See Separate Report (FAINA) (test code = 2629) XR LUMBAR SPINE 2 VIEWS AP AND [id number] 21:07:27Lumbar Spine Radiographs: 3 views HISTORY: PainCOMPARISON: [...] L5-S1 facet arthropathy. IMPRESSION:No acute radiographic abnormality.Multilevel qvwg-ct-njorffpr degenerative changes.Signed by: Dr. Ad Landa MD [...] osteophytosis.Mild L5-S1 facet arthropathy.IMPRESSION:No acute radiographic abnormality.Multilevel wvfz-wi-jaxpnlsq degenerative changes.Signedby: Dr. Ad Landa MD on 01/06/2020 4:07 PMAurora Las Encinas HospitalCB W ABSOLUTE NEUTROPHIL [id number] 14:41:02 Test Item Value Reference Range Interpretation Comments WHITE BLOOD CELL COUNT See_Comment H [Aut omated message] (test code = 25689-3) The sy stem which generated this result transmitted ref erence range: 3.5 - 10 .0 K/UL. The refer ence range was not u sed to interpret this result as normal/abnor mal. RED BLOOD CELL COUNT See_Comment [Autom ated message] (test code = 27837-3) The sy stem which generated this result transmitted ref erence range: 3.80 - 5 .20 M/UL. The refer ence range was not u sed to interpret this result as normal/abnor mal. HEMOGLOBIN (test code See_Comment [Auto mated message] = 718-7) The system whic h generated this result transmitted ref erence range: 12.0 - 1 6.0 G/DL. The refer ence range was not u sed to interpret this result as normal/abnor mal. HEMATOCRIT (test code 38.3 % 35-46 = 98658-4) MEAN CORPUSCULAR 90.1 fL 80-99 VOLUME (test code = 66746-4) MEAN CORPUSCULAR 29.4 PG 25-34 HEMOGLOBIN (test code = 32937-4) MEAN CORPUSCULAR See_Comment [Automated message] HEMOGLOBIN CONC (test The sy stem which code = 73798-8) generated th is result transmitted ref erence range: 31.0 - 3 6.0 G/DL. The refer ence range was not u sed to interpret this result as normal/abnor mal. RED CELL DISTRIBUTION 18.1 % 11.5-15 H WIDTH (test code = 10134-1) NEUTROPHILS % (test 51 % 40-75 SEGMENT ED code = 46940-4) NEUTROPHILS, MANUAL DIFFERENTIAL. BANDS % (test code = 5 % 0-8 73833-9) LYMPHOCYTES % (test 32 % 20-45 code = 20033-4) MONOCYTES % (test code 9 % 4-12 = 61379-8) EOSINOPHILS % (test 1 % 0-7 code = 92288-7) BASOPHILS % (test code 1 % 0-2 = 78961-5) METAMYELOCYTES PERCENT 1 % See_Comment H [Aut omated message] (test code = 87630-9) The sy stem which generated this result transmitted ref erence range: 0.0. The reference range was not used to int erpret this result as normal/abnormal . PLATELET COUNT (test See_Comment [Autom ated message] code = 94783-6) The system w hich generated this result transmitted ref erence range: 130 - 40 0 K/UL. The refer ence range was not u sed to interpret this result as normal/abnor mal. NEUTROPHILS ABSOLUTE See_Comment [Autom ated message] COUNT (test code = The syste m which 66945-8) generated this result transmitted ref erence range: 1.50 - 7 .50 K/UL. The refer ence range was not u sed to interpret this result as normal/abnor mal. COMMENTS (test code = (NOTE) FEW E LLIPTOCYTES 89440-5) SLIGHT ANISOCYT OSIS PLATELETS APPEA R ADEQUATE PLATEL ETS APPEAR NORMAL T ESTING PERFORMED AT [facility], [place] [address] [place], [place] [address] CLIA NO. [id number] Unless Otherwis e Indicated, All Testing Perform ed At: Clinical Pathol [facility], [address] [place] [address] Laborator y Director: Robbie Wagner M.D. CLIA Number [id number] [place]. [id number] BALBIR (test code = BALBIR) PT FASTING Lab Interpretation Abnormal (test code = 72739-3) [facility] HospitalCOMPREHENSIVE METABOLIC [id number] 14:32:27 Test Item Value Reference Range Interpretation Comments GLUCOSE (test code = See_Comment [Autom ated message] 2345-7) The system [employer] generated this result transmitted ref erence range: [...] [Auto mated message] = 2160-0) The system [employer] generated this result transmitted ref erence range: 0.60 - 1 .30 MG/DL. The refe rence range was not u sed to interpret this result as normal/abnor mal. EGFR AA (test code = See_Comment [Autom ated message] 92755-8) The system [employer] generated this result transmitted ref erence range: >60 ML/MIN/1.73. Th e reference range was not used to int erpret this result as normal/abnormal . EGFR (test code = See_Comment [Automate d message] 57871-2) The system [employer] generated this result transmitted ref erence range: >60 ML/MIN/1.73. Th e reference range was not used to int erpret this result as normal/abnormal . BUN/CREAT RATIO (test See_Comment [Auto mated message] code = 3097-3) The system [facility] generated this result transmitted ref erence range: 6 - 28 R ATIO. The reference r anil was not used to interpret this result as normal/abnor mal. SODIUM (test code = See_Comment [Automa tom message] 2951-2) The system [employer] generated this result transmitted ref erence range: 133 - 14 6 MEQ/L. The refe rence range was not u sed to interpret this result as normal/abnor mal. POTASSIUM (test code See_Comment [Autom ated message] = 2823-3) The system [employer] generated this result transmitted ref erence range: 3.5 - 5. 4 MEQ/L. The refe rence range was not u sed to interpret this result as normal/abnor mal. CHLORIDE (test code = See_Comment [Auto mated message] 2075-0) The system [employer] generated this result transmitted ref erence range: 100 - 11 2 MEQ/L. The refe rence range was not u sed to interpret this result as normal/abnor mal. CO2 (test code = See_Comment [Automated message] 8) The system [employer] generated this result transmitted ref erence range: 21 - 30 MEQ/L. The reference r anil was not used to interpret this result as normal/abnor mal. CALCIUM (test code = See_Comment [Autom ated message] 48407-6) The system [employer] generated this result transmitted ref erence range: 8.5 - 10 .5 MG/DL. The refe rence range was not u sed to interpret this result as normal/abnor mal. PROTEIN TOTAL (test See_Comment [Automa tom message] code = 2885-2) The system [employer] generated this result transmitted ref erence range: 6.1 - 8. 1 G/DL. The reference r anil was not used to interpret this result as normal/abnor mal. ALBUMIN (test code = See_Comment [Autom ated message] 18058-7) The system [employer] generated this result transmitted ref erence range: 3.4 - 4. 8 G/DL. The reference r anil was not used to interpret this result as normal/abnor mal. GLOBULINS, SERUM, See_Comment [Automate d message] TOTAL (test code = The syste m which 25009-1) generated this result transmitted ref erence range: 1.9 - 3. 7 G/DL. The reference r anil was not used to interpret this result as normal/abnor mal. A/G RATIO (test code See_Comment [Autom ated message] = 1759-0) The system [employer] generated this result transmitted ref erence range: 1.0 - 2. 6 RATIO. The refe rence range was not u sed to interpret this result as normal/abnor mal. BILIRUBIN TOTAL (test See_Comment [Auto mated message] code = 1975-2) The system [employer] generated this result transmitted ref erence range: <=1.2 MG /DL. The reference r anil was not used to interpret this result as normal/abnor mal. ALKALINE PHOSPHATASE 99 U/L 30-132 (test code = 6768-6) AST (SGOT) (test code 24 U/L 7-56 = 1920-8) ALT (SGPT) (test code 17 U/L 3-47 TESTI NG PERFORMED AT = 1744-2) [facility], [place] [address] [place], [place] [address] CLIA NO. [id number] Unless Otherwise Indic ated, All Testing Per formed At: [facility], [address] [place] [address] [facility] y Director: Robbie Wagner M.D. CLIA Number [id number] [place]. [id number] BALBIR (test code = BALBIR) PT FASTING [facility] H[id number] 14:32:13 Test Item Value Reference Range Interpretation Comments MAGNESIUM (test code See_Comment TESTIN G PERFORMED AT = 57213-3) [facility], [address] [place] [address] CLIA N O. [id number] Unle ss Otherwise Indic ated, All Testing Per formed At: [facility], [address] [facility], [place] [address] Laboratory Dire ctor: Robbie de los santos M.D. CLIA Number [id number] [place] [id number] [Autom ated message] The sy stem which generated this result transmit tom reference range : 1.6 - 2.6 MG/DL. The reference range was not used to interpr et this result as normal/abnormal . BALBIR (test code = PT FASTING BALBIR) [facility] HospitalMYOCARD PERFUSION - [id number] 20:00:41: 1. Normal myocardial perfusion study.2. No [...] and left ventricular thickening.Interpreting Physician: Bakari Lai MDLakeside [facility], [id number] 14:27:34REPORT Pat.Name: ALEXANDRIA MERCADO.ID: [id number] .Date: 12/19/2019 Refer.MD: MANNY DEVLIN Exam Time: 9:08:00 AM Study Type:Routine Echo Height: 62in Weight: 155lb BSA: 1.72 m2 Age: 2 1945,74Y Sex: FEMALE BP: 138/78 HR: 55 bpm Sonogrphr: BEENA Morelos Echo Event ID:[id number] EPC Order ID: [id number] Reason for Study:Cardiac evaluation, LV function assessmentHistory / Clinical:HTN, chest pain Procedures:[id number],COMPLETE Race: ++++++++++++++++++++++++++++++++++++SUMMARY:++ ++++++++++++++++++++++++++++++++++1. Left ventricular chamber size [...] exam available for comparison.Quality: Technically adequate exam. ++++++++++++++++++++++++++++++++++++MEASUREMENTS:++++ ++++++++++++++++++++++++++++++++ 2D Left Ventricle LVIDd 5.1 cm (3.6-5.2) [...] SysVol 20.8 cc Ventricular Septum IVSd 0.9 cm(0.6-1.1) LVPW LVPWd 1.1 cm (0.6-1.1) Aorta Ao Rtd 3.3 cm (1.7-3.4) Index 1.9 cm/m2 Ao Asc 3.7 cm (2.1-3.4) Index 2.2 cm/m2 LVOT LVOT 1.7 cm Ratios IVS/LVPW 0.8 Right Ventricle Right Ventricle 3.6 cmDOPPLER AV Forward Flow AV pkVel 115 cm/s (100-170) AV TVI 29.8 cm AV mnVel 80 cm/s Area (TVI) 1.9 cm2 (3- 5) AV pkPG 5 mmHg Area (Eric) 2 cm2 AV mnPG 3 mmHg MV Forward Flow MV DeTm 261 ms MV pkA 89.1 cm/s MV pkE 81.8 cm/s (60-130) MV E/A 0.9 LVOT LVOT SV 56 cc LVOT TVI 24.8 cm LVOT MnVel 72.2 cm/s LVOTPkVel 102 cm/s LVOT MnPG 2 mmHg LVOT PkPG 4 mmHg RV Sm RV Sm Eric 16.4 cm/s Left Ventricle LmLat Em 8.8 cm/s LmLat E/Em 9.3 LmSep Em 7.9 cm/s LmSep E/Em 10.3 Tricuspid Valve TV Eric 254.2 cm/s MMODE TAPSE TAPS Dim 2.5 cm Signed 12/19/2019 09:27 Bakari Vences M.D.[facility] HospitalEJECTION FRACTION [id number] 00:00:00 Test Item Value Reference Range Interpretation Comments Ejection Fraction (test code = 56097-5) 60 % 55-75 [facility] W/AUTO DIFF WITH [id number] 15:23:26 Test Item Value Reference Range Interpretation Comments WHITE BLOOD CELL COUNT See_Comment H [Aut omated message] (test code = 17410-6) The sy stem which generated this result transmitted ref erence range: 3.5 - 10 .0 K/UL. The refer ence range was not u sed to interpret this result as normal/abnor mal. RED BLOOD CELL COUNT See_Comment [Autom ated message] (test code = 17307-7) The sy stem which generated this result transmitted ref erence range: 3.80 - 5 .20 M/UL. The refer ence range was not u sed to interpret this result as normal/abnor mal. HEMOGLOBIN (test code = See_Comment [Au tomated message] 718-7) The system [employer] generated this result transmitted ref erence range: 12.0 - 1 6.0 G/DL. The refer ence range was not u sed to interpret this result as normal/abnor mal. HEMATOCRIT (test code = 38.5 % 35-46 15462-8) MEAN CORPUSCULAR VOLUME 86.7 fL 80-99 (test code = 58140-0) MEAN CORPUSCULAR 29.1 PG 25-34 HEMOGLOBIN (test code = 11756-6) MEAN CORPUSCULAR See_Comment [Automated message] HEMOGLOBIN CONC (test The sy stem which code = 72672-9) generated th is result transmitted ref erence range: 31.0 - 3 6.0 G/DL. The refer ence range was not u sed to interpret this result as normal/abnor mal. RED CELL DISTRIBUTION 16.2 % 11.5-15 H WIDTH (test code = 50524-3) NEUTROPHILS % (test 48 % 40-75 SEGMENT ED code = 85265-3) NEUTROPHILS, MANUAL DIFFERENTIAL. BANDS % (test code = 8 % 0-8 10223-4) LYMPHOCYTES % (test 30 % 20-45 code = 89150-0) MONOCYTES % (test code 7 % 4-12 = 00834-2) EOSINOPHILS % (test 1 % 0-7 code = 86873-9) BASOPHILS % (test code 4 % 0-2 H = 00615-8) MYELOCYTES % (test code 2 % See_Comment H [Au tomated message] = 87088-1) The system [employer] generated this result transmitted ref erence range: 0.0. The reference range was not used to int erpret this result as normal/abnormal . PLATELET COUNT (test See_Comment [Autom ated message] code = 59201-2) The system [employer] generated this result transmitted ref erence range: 130 - 40 0 K/UL. The reference r anil was not used to interpret this result as normal/abnor mal. COMMENTS (test code = (NOTE) FEW REACTIVE 58695-9) LYMPHOCYTES SLI GHT ANISOCYTOSIS SL IGHT POLYCHROMASIA F EW STOMATOCYTES PL ATELETS APPEAR ADEQUATE PLATELETS APPEA R NORMAL TESTING PERFORMED AT [facility], [place] [place], [place] [address] CLIA NO. [id number] Unless Otherwise Indic ated, All Testing Per formed At: [facility], [address] [place] [address] Laborator y Director: Robbie Wagner M.D. CLIA Number [id number] Cap Accreditation N o. [id number] Lab Interpretation Abnormal (test code = 83672-0) [facility],TUNNEL CATH,CENTRAL INST [id number] 20:29:00 IMPRESSION: Insertion of right-sided power-injectable single-lumen [...] permanent image was stored.Port placed: BardCatheter size (S[place] Arabian): 6Catheter flush: Heparin (100 units/mL) ClosureThe access [...] MDReport Verified Date/Time: 11/01/2019 15:29:20 Reading Location: [place] [address] Angio Body Reading Room L REPORT PROCEDURE: Venous port placement Procedural PersonnelAttending physician(s): Fab Rojasllbetsy physician(s): Katy Rubio physician(s): NonePrimary Livery Car Driver(s): Neema Samano MD Pre- procedure diagnosis: Bladder cancerPost-procedure diagnosis: SameIndication: Administration of chemotherapyAdditional clinical history: None Complications: No immediate complications. Luiz, Rad Results In - 11/01/2019 3:31 PM CDTFINAL REPORT PROCEDURE: Venous port placement Procedural PersonnelAttending physician(s): Licha Rojas physician(s): Katy Rubio physician(s): NonePrimary Livery Car Driver(s): Neema Samano MD Pre-procedure diagnosis: Bladder cancerPost-procedure [...] permanent image was stored.Port placed: BardCatheter size ([place] Arabian): 6Catheter flush: Heparin (100 units/mL) ClosureThe access [...] Nicole Verified Date/Time: 11/01/2019 15:29:20 Reading Location: [place] [address] Angio Body Reading Room [facility], TUNNEL CATH CENTRAL INS W/PORT [id number] 15:29:00Reason for Exam:->malignant neoplasm of overlapping sites of bladder FINAL REPORT PROCEDURE: Venous port placement Procedural PersonnelAttending physician(s): Madalyn Nicole MDFellow physician(s): ONEYDA Rubioesideena physician(s): NonePrimary Livery Car Driver(s): Neema Samano MD Pre-procedure diagnosis: Bladder cancerPost-procedure [...] permanent image was stored.Port placed: BardCatheter size (S[place] Arabian): 6Catheter flush: Heparin (100 units/mL) ClosureThe access [...] MDReport Verified Date/Time: 11/01/2019 15:29:20 Reading Location: [place] [address] Angio Body Reading Room APTT 2019-11-01 15:22:00 Test Item Value Reference Range Interpretation Comments PARTIAL THROMBOPLASTIN See_Comment [Aut omated message] TIME (test code = 3173-2) Th e system which generated this result transmitted ref erence range: 22.5 - 3 6.0 seconds. The re ference range was not u sed to interpret this result as normal/abnor mal. [id number] 15:21:00 Test Item Value Reference Range Interpretation Comments PROTIME (test See_Comment [Automated code = 91532-6) message] The system which generated this result transmit tom reference range : 11.9 - 14.2 seconds. The reference range was not used to interpret this result as normal/abnormal . INR (test code See_Comment [Automated = 73035-3) message] The system which generated this result [...] 2.5-3.5 for patients wiht mechanical heart valves. [facility] 10:22:00 Test Item Value Reference Range Interpretation Comments PARTIAL THROMBOPLASTIN TIME 29.5 seconds 22.5-36.0 (BEAKER) (test code = 760) PROTHROMBIN TIME/[id number] 10:21:00 Test Item Value Reference Range Interpretation [...] mechanical heart valves.CBC W/PLT COUNT & AUTO [id number] 09:53:00 Test Item Value Reference Range Interpretation [...] (test code = 2801) CT CHEST W [id number] 18:26:00Impression:No evidence of metastatic disease in the chest. Signed: Davide Delatorre MDReport VerifiedDate/Time: 10/27/2019 13:26:23 Reading Location: [address] Ortho Consult Reading Room L REPORT [...] Delatorre Verified Date/Time: 10/27/2019 13:26:23 Reading Location: [address] Reading Room [facility], WITH IV [id number] 13:26:00FINAL REPORT CT Chest with contrast History:Malignant [...] Delatorre Verified Date/Time: 10/27/2019 13:26:23 Reading Location: [address] OrthoConsult Reading Room ICAL PATHOLOGY [id number] 19:52:00 Test Item Value Reference Range Interpretation Comments CASE REPORT (test code Surgical Pathology = 72056) Report Case: [id number] Authorizing Provider: Vita Jaimes MD Collected: 10/14/2019 09:26 AM Ordering Location: [facility] PERIOPERATIVE Received: 10/14/2019 11:24 AM [...] DIAGNOSIS (test code = A. URINARY BLADDER, 82697-7) RIGHT POSTERIOR LATERAL WALL, BIOPSY: - UROTHELIAL [...] CHANGE SEEN Signing Pathologist Direct Phone Line: [phone] lly signed by Reinaldo Matta MD on 10/17/2019 at 2:52 PM DIAGNOSIS COMMENT The tumor is 90% of the (test code = 05111) plasmacytoid type. No surface CIS is seen on any of the slides. It would be important in this case to consider the possibility of metastatic breast carcinoma which can mimic plasmacytoid variant of urothelial cancer, especially since there is no associated urothelial carcinoma in situ in this case. CPT (test code = 34273 X 7, 44241 78638) CLINICAL HISTORY (test Preop diagnosis: code = [...] MICROSCOPIC Performed. DESCRIPTION (test code = 819) [facility] [id number] 14:52:00Surgical Pathology Report Case: [id number] Authorizing Provider: Vita Jaimes MD Collected: 10/14/2019 09:26 AM Ordering Location: [facility] PERIOPERATIVE Received: 10/14/2019 11:24 AM [...] Biopsy, Trigone, trigone, blue light negative H) -Bladder Biopsy, Right Wall, right posterior wall, previous resection site A. URINARY BLADDER, RIGHTPOSTERIOR LATERAL WALL, BIOPSY: - UROTHELIAL CARCINOMA, HIGH [...] CHANGE SEEN Signing Pathologist Direct Phone Line: [phone] signed by Reinaldo Matta MD on 10/17/2019 at 2:52 PMThe tumor is 90% of the plasmacytoid type. No surface CIS is seen on any of the slides. It would beimportant in this case to consider the possibility of metastatic breast carcinoma which can mimic plasmacytoid variant of urothelial cancer, especially since there is no associated urothelial carcinomain situ in this case. 27332 X 7, 81527Unvrd diagnosis: Malignant neoplasm of overlapping sites of [...] wall, bladder biopsy" is a 0.3 x 0.3x 0.2 cm buck-pink tissue fragment which is [...] which is filtered and submittedin toto in D1. E. Received in formalin [...] 0.1 cm buck-pink tissue fragment which is filteredand submitted in toto in F1. G. Received [...] submitted in H2. PA/pl Performed.RAD, CHEST, 2 [id number] 09:24:00Reason for Exam:->C67.8FINAL REPORT CHEST RADIOGRAPH - [...] spine, age indeterminate, suggest clinical correlation. Signed: Stanley Drake MDReport Verified Date/Time: 10/13/2019 09:24:28 Reading Location: [facility] Reading Room [address] [place] [address] CT, [id number] 16:53:00CT UROGRAMFINAL REPORT CT of the abdomen [...] Bianchi Verified Date/Time: 10/12/2019 16:53:35 Reading Location: [facility] C013X [facility] Consult Reading Room POCT URINALYSIS [id number] 00:00:00 Test Item Value Reference Range Interpretation Comments COLOR UA (test code = 5778-6) Yellow YELLOW/STRAW CLARITY UA (test code = 19791-1) Clear CLEAR GLUCOSE UA (test code = 5792-7) Negative NEGATIVE BILIRUBIN UA (test code = 5770-3) Negative NEGATIVE KETONES UA (test code = 45002-2) Negative NEGATIVE SPECIFIC GRAVITY UA (test code [...] NEGATIVE REDUCING SUBSTANCES URINE (test code = 79624-5) [facility]
[2022-06-19 12:59] LABS: Absolute Lymphocytes (CBC) 1.5 K/uL (0.7-4.9); Hematocrit 41.9 % (36.0-45.0); Lymphocytes % 24.4 % (15.3-44.8); RBC Red Blood Cell Count 4.65 M/uL (3.86-4.86)
[2022-06-19 13:09] LABS: Potassium 3.4 mmol/L (3.5-5.1)
[2022-06-19] MEDS ORDERED: FENTANYL CITR 100 MCG/2 ML ONE (13:11)
--- NOTE | 2022-06-19 14:26 | RAD REPORT ---
EXAM DESCRIPTION: CT - Head C Spine Cap Savannah Palomo - 06/19/2022 1:43 pm CLINICAL HISTORY: Trauma, head and neck injury. Chest, abdomen and pelvis pain. fall COMPARISON: No comparisons TECHNIQUE: CT head without contrast. CT cervical spine without contrast with coronal and sagittal reformatted images. CT chest, abdomen and pelvis with IV contrast (approximately 100 mL nonionic IV contrast) with murray l and sagittal reformatted images of the spine. All CT scans are performed using dose optimization technique as appropriate and may include automated exposure control or mA/KV adjustment according to patient size. FINDINGS: CT HEAD WITHOUT CONTRAST: No intracranial hemorrhage, hydrocephalus or extra-axial fluid collection. Mild generalized brain atr ophy is present with mild periventricular and deep white matter chronic microvascular ischemic change s. No areas of brain edema or midline shift. The paranasal sinuses and mastoids are clear. The calvarium is intact. CT CERVICAL SPINE WITHOUT CONTRAST: No fracture or subluxation. Moderate lower cervical degenerative changes are present with small endpl ate osteophyte. The prevertebral soft tissues are normal in thickness. CT CHEST, ABDOMEN, PELVIS WITH CONTRAST: The lungs are clear.No pneumothorax or pericardial/pleural fluid. No evidence of intra-abdominal visceral injury, free fluid or free air. Cholelithiasis. Postsurgical changes of neobladder. The left L1, L2 transverse processes appear fractured. IMPRESSION: Mild fractures of the left transverse process of L1 and L2. No additional trauma related abnormality seen.
--- NOTE | 2022-06-19 15:19 | ER ---
Nurse's Notes [facility] Name: Marily Gonsales Age: 76 yrs Sex: Female : 1945 Arrival Date: 06/19/2022 Time: 11:21 Bed 27 Private MD: Lemuel Kuo C Diagnosis: Transverse Process Fracture L1, and L2;Fall on same level, unspecified Presentation: 06/19 11:29 Chief complaint: Patient states: Dr. Kuo sent pt. Pt reports falling on Thanksgiving ld1 and injured back, Denies LOC, not on blood thinners. Seen for fall previously and received xrays. C/O back pain and left groin pain. Pt states "Dr. Kuo wants the ER doctor to call him.". Coronavirus screen: At this time, the client does not indicate any symptoms associated with coronavirus-19. Ebola Screen: No symptoms or risks identified at this time. Initial Sepsis Screen: Does the patient meet any 2 criteria? No. Patient's initial sepsis screen is negative. Does the patient have a suspected source of infection? No. Patient's initial sepsis screen is negative. Risk Assessment: Do you want to hurt yourself or someone else? Patient reports no desire to harm self or others. Onset of symptoms was June 19, 2022 at 11:31. 11:29 Method Of Arrival: Wheelchair ld1 11:29 Acuity: CORI 3 ld1 Triage Assessment: 11:31 General: Appears in no apparent distress. comfortable, Behavior is calm, cooperative, ld1 appropriate for age. Pain: Complains of pain in back and left femoral area Pain does not radiate. Pain currently is 7 out of 10 on a pain scale. Quality of pain is described as throbbing. EENT: No signs and/or symptoms were reported regarding the EENT system. Neuro: Level of Consciousness is awake, alert, obeys commands, Oriented to person, place, time, situation. Cardiovascular: Capillary refill < 3 seconds Patient's skin is warm and dry. Respiratory: Airway is patent Respiratory effort is even, unlabored. GI: Abdomen is flat, non-distended. : No signs and/or symptoms were reported regarding the genitourinary system. Derm: No signs and/or symptoms reported regarding the dermatologic system. Musculoskeletal: No signs and/or symptoms reported regarding the musculoskeletal system. Historical: - Allergies: 11:29 Sulfa (Sulfonamide Antibiotics); ld1 - PMHx: 11:29 Bladder cancer; CHF; COPD; Hypertension; Hypothyroidism; ld1 - PSHx: 11:29 Bladder; section; ld1 - Immunization history:: Adult Immunizations up to date, Client reports receiving the 2nd dose of the Covid vaccine. - Social history:: Smoking status: Patient denies any tobacco usage or history of. Patient/guardian denies using alcohol. Screenin:30 Abuse screen: Denies threats or abuse. Denies injuries from another. Nutritional eh3 screening: No deficits noted. Tuberculosis screening: No symptoms or risk factors identified. Fall Risk None identified. Assessment: 12:30 General: Appears in no apparent distress. comfortable, Behavior is calm, cooperative, eh3 appropriate for age. Pain: Complains of pain in low back area and left femoral area Pain does not radiate. Pain currently is 6 out of 10 on a pain scale. Quality of pain is described as aching, sharp, Pain began 1 week ago Is continuous, Alleviated by repositioning, Aggravated by increased activity, Noted to be resistant to movement. 12:30 Neuro: Level of Consciousness is awake, alert, obeys commands, Oriented to person, eh3 place, time, situation. Cardiovascular: Capillary refill < 3 seconds Patient's skin is warm and dry. Respiratory: Airway is patent Respiratory effort is even, unlabored, Respiratory pattern is regular, symmetrical. GI: No signs and/or symptoms were reported involving the gastrointestinal system. Abdomen is round non-distended. : No signs and/or symptoms were reported regarding the genitourinary system. EENT: No signs and/or symptoms were reported regarding the EENT system. Derm: No signs and/or symptoms reported regarding the dermatologic system. Skin is pink, warm \\T\\ dry. Musculoskeletal: No signs and/or symptoms reported regarding the musculoskeletal system. Circulation, motion, and sensation intact. 13:30 Reassessment: Patient and/or family updated on plan of care and expected duration. Pain eh3 level reassessed. Patient is alert, oriented x 3, equal unlabored respirations, skin warm/dry/pink. 14:30 Reassessment: Patient and/or family updated on plan of care and expected duration. Pain eh3 level reassessed. Patient is alert, oriented x 3, equal unlabored respirations, skin warm/dry/pink. 15:30 Reassessment: Patient and/or family updated on plan of care and expected duration. Pain eh3 level reassessed. Patient is alert, oriented x 3, equal unlabored respirations, skin warm/dry/pink. Vital Signs: 11:29 BP 116 / 76; Pulse 62; Resp 18; Temp 97.8(TE); Pulse Ox 98% on R/A; Weight 63.5 kg; ld1 Height 5 ft. 3 in. (160.02 cm); Pain 7/10; 12:40 BP 124 / 69; Pulse 46; Resp 16; Pulse Ox 100% on R/A; eh3 13:30 BP 118 / 70; Pulse 52; Resp 16; Pulse Ox 99% on R/A; eh3 14:30 BP 130 / 59; Pulse 43; Resp 16; Pulse Ox 100% on R/A; eh3 15:30 BP 144 / 75; Pulse 47; Resp 16; Pulse Ox 100% on R/A; eh3 11:29 Body Mass Index 24.80 (63.50 kg, 160.02 cm) ld1 ED Course: 11:21 Patient arrived in ED. am2 11:22 Lemuel Kuo MD is Private Physician. am2 11:31 Triage completed. ld1 11:31 Arm band placed on right wrist. ld1 11:37 Lazaro Ramos PA is PHCP. cp 11:37 Lazaro Vazquez MD is Attending Physician. cp 12:26 Gabi Begum, BREANNE is Primary Nurse. eh3 12:30 Patient has correct armband on for positive identification. Bed in low position. Call eh3 light in reach. Side rails up X2. Adult w/ patient. Client placed on continuous cardiac and pulse oximetry monitoring. NIBP monitoring applied. Door closed. Noise minimized. Warm blanket given. Pillow given. 12:40 Inserted saline lock: 22 gauge in left antecubital area, using aseptic technique. Blood eh3 collected. 13:45 CT Traumagram (Head C Spine CAP W Con) In Process Unspecified. EDMS 15:13 Pt ambulated with walker 20 ft, tolerated well. eh3 15:17 Lemuel Kuo MD is Referral Physician. cp 15:54 No provider procedures requiring assistance completed. eh3 15:54 IV discontinued, intact, bleeding controlled, No redness/swelling at site. Pressure eh3 dressing applied. Administered Medications: 13:11 Drug: fentaNYL (PF) 25 mcg Route: IVP; Site: left antecubital; 14:34 Follow up: Response: Pain is decreased eh3 Medication: 15:54 VIS not applicable for this client. eh3 Outcome: 15:18 Discharge ordered by MD. cp 16:32 Discharged to home via wheelchair, with family. eh3 16:32 Condition: stable 16:32 Discharge instructions given to patient, family, Instructed on discharge instructions, follow up and referral plans. medication usage, Demonstrated understanding of instructions, follow-up care, medications, Prescriptions given X 2. 16:32 Patient left the ED. eh3 Signatures: Dispatcher [employer] EDMS Lazaro Ramos PA PA cp Aysha Quarles, RN RN Emma Seo am2 Ernestine Lord RN RN 1 Gabi Begum RN RN eh3 Corrections: (The following items were deleted from the chart) 11:32 11:29 Chief complaint: Patient states: Dr. Kuo sent pt. Pt reports falling on ld1 Thanksgiving and injured back, Denies LOC, not on blood thinners. Seen for fall previously and received xrays. C/O back pain and left groin pain. ld1 14:33 12:30 Pain: Complains of pain in low back area and left femoral area eh3 eh3
--- NOTE | 2022-06-19 15:19 | EDPHYS ---
Physician Documentation [facility] Name: Marily Gonsales Age: 76 yrs Sex: Female : 1945 Arrival Date: 06/19/2022 Time: 11:21 Bed 27 Private MD: Lemuel Kuo C ED Physician Lazaro Vazquez HPI: 06/19 11:45 This 76 yrs old Female presents to ER via Wheelchair with complaints of fall/further cp testing. Historical: - Allergies: 11:29 Sulfa (Sulfonamide Antibiotics); ld1 - PMHx: 11:29 Bladder cancer; CHF; COPD; Hypertension; Hypothyroidism; ld1 - PSHx: 11:29 Bladder; section; ld1 - Immunization history:: Adult Immunizations up to date, Client reports receiving the 2nd dose of the Covid vaccine. - Social history:: Smoking status: Patient denies any tobacco usage or history of. Patient/guardian denies using alcohol. Exam: 13:35 ECG was reviewed by the Attending Physician. cp Vital Signs: 11:29 BP 116 / 76; Pulse 62; Resp 18; Temp 97.8(TE); Pulse Ox 98% on R/A; Weight 63.5 kg; ld1 Height 5 ft. 3 in. (160.02 cm); Pain 7/10; 12:40 BP 124 / 69; Pulse 46; Resp 16; Pulse Ox 100% on R/A; eh3 13:30 BP 118 / 70; Pulse 52; Resp 16; Pulse Ox 99% on R/A; eh3 14:30 BP 130 / 59; Pulse 43; Resp 16; Pulse Ox 100% on R/A; eh3 15:30 BP 144 / 75; Pulse 47; Resp 16; Pulse Ox 100% on R/A; eh3 11:29 Body Mass Index 24.80 (63.50 kg, 160.02 cm) ld1 MDM: 11:38 Patient medically screened. 06/19 11:38 Order name: Basic Metabolic Panel; Complete Time: 14:00 cp 06/19 14:44 Interpretation: Normal except: K 3.4; CL 113; CO2 20; GLUC 120; BUN 21; GFR 49. cp 06/19 11:38 Order name: CBC with Diff; Complete Time: 13:01 cp 06/19 11:38 Order name: Type And Screen; Complete Time: 14:00 cp 06/19 11:39 Order name: CT Traumagram (Head C Spine CAP W Con); Complete Time: 14:44 cp 06/19 12:59 Order name: EKG; Complete Time: 12:59 cp 06/19 11:38 Order name: Labs collected and sent; Complete Time: 12:55 cp 06/19 12:59 Order name: EKG - Nurse/Tech; Complete Time: 13:33 cp 06/19 14:51 Order name: Misc. Order: ambulate with walker; Complete Time: 15:13 cp EC:35 Rate is 50 beats/min. Rhythm is regular. GA interval is normal. QRS interval is normal. cp QT interval is normal. T waves are Inverted in lead aVR. Interpreted by me. Reviewed by me. Administered Medications: 13:11 Drug: fentaNYL (PF) 25 mcg Route: IVP; Site: left antecubital; hb 14:34 Follow up: Response: Pain is decreased eh3 Disposition Summary: 06/19/22 15:18 Discharge Ordered Location: Home cp Problem: new cp Symptoms: have improved cp Condition: Stable cp Diagnosis - Transverse Process Fracture L1, and L2 cp - Fall on same level, unspecified cp Followup: cp - With: Lemuel Kuo MD - When: 1 week - Reason: Recheck today's complaints Discharge Instructions: - Discharge Summary Sheet cp - Fall Prevention in the Home, Adult cp - Transverse Process Fracture cp Forms: - Medication Reconciliation Form cp - Thank You Letter cp - Antibiotic Education cp - Prescription Opioid Use cp Prescriptions: - Mobic 7.5 mg Oral Tablet - take 1 tablet by ORAL route once daily take with food; 20 tablet; Refills: 0, cp Product Selection Permitted - Tylenol-Codeine #3 300 mg-30 mg Oral - take 1 tablet by ORAL route every 6-8 hours; 20 tablet; Refills: 0, Product cp Selection Permitted Addendum: 06/22/2022 07:58 Co-signature as Attending Physician, Lazaro Vazquez MD I agree with the assessment and c kim plan of care. Signatures: Dispatcher [employer] Lazaro Vasquez MD MD cha Page, Corey, PA PA cp Aysha Quarles RN RN Ernestine Lord RN RN ld1 Gabi Begum RN eh3 Corrections: (The following items were deleted from the chart) 07:58 07:57 Co-signature as Attending Physician, Lemuel Kuo MD I agree with the assessment and [facility] plan of care. [facility] :58 07:57 Co-signature as Attending Physician, Lazaro Vazquez MD formerly [facility], [facility]
[2022-06-19 16:53] VITALS: TEMP 97.8
[2022-06-19 17:09] VITALS: O2SAT 100
[2022-06-19 17:11] VITALS: BP 144/75
--- NOTE | 2022-06-20 07:52 | EKG ---
Test Date: 2022-06-19 Test Time: 13:31:04 Turn Supervisor: MODESTO MEASUREMENT RESULTS: Intervals: Rate: 50 OR: 160 QRSD: 96 QT: 478 QTc: 435 [place]: P: 86 OR: 160 QRS: 78 T: 57 INTERPRETIVE STATEMENTS: Sinus bradycardia Otherwise normal ECG Compared to ECG 03/27/2022 10:32:18 Sinus arrhythmia no longer present Electronically Signed On 06-20-22 07:49:05 PUBLICATIONS INSPECTOR by Honorio Aldridge
== END 2022-06-19 16:32 | disposition home or self-care (01) ==
LOC: ER 11:20
DX: S32.019A Unspecified fracture of first lumbar vertebra, initial encounter for closed fracture (principal); S32.029A Unspecified fracture of second lumbar vertebra, initial encounter for closed fracture; W18.30XA Fall on same level, unspecified, initial encounter; I10 Essential (primary) hypertension; Z88.2 Allergy status to sulfonamides; Z85.51 Personal history of malignant neoplasm of bladder
CPT/HCPCS: 93005; 85025; 80048; 36415; 86900; 86850; 86901; 70450; 72125; 71260; 74177; 96374; 99284; Q9967; J3010

== ENCOUNTER 2022-07-15 08:05 | Inpatient (IN) | payer OTHER, BC ==
--- NOTE | 2022-07-15 08:22 | RAD REPORT ---
EXAM DESCRIPTION: CT - Ct Stroke Brain Wo Cont - 07/15/2022 8:16 am CLINICAL HISTORY: Neuro deficit, acute, stroke suspected Headache, CVA symptomology COMPARISON: Facial Bones W/ Mpr dated 04/23/2022; HEAD BRAIN W O CONTRAST dated 08/11/2011 TECHNIQUE: All CT scans are performed using dose optimization technique as appropriate and may inclu de automated exposure control or mA/KV adjustment according to patient size. FINDINGS: No intracranial hemorrhage, hydrocephalus or extra-axial fluid collection.Mild generalized brain atrophy is present with mild periventricular and deep white matter chronic microvascular ische julio changes.No areas of brain edema or evidence of midline shift. The paranasal sinuses and mastoids are clear. The calvarium is intact. IMPRESSION: No acute intracranial abnormality. If there is continued clinical concern for CVA, MR imaging of the brain would be recommended. The findings were discussed with doctor Vazquez in the emergency room on 07/15/2022 at 8:13 a.m. by telephone.
--- OUTSIDE RECORDS SUMMARY | 2022-07-15 08:26 | XMS REPORT | Continuity of Care Document ---
:1945 Author Organization [facility] t Address [address] [place] [address] Care Team Providers Name Role Phone JUAN R OLIVER Primary Care Physician Unavailable EMILY ADAMS Attending Clinician Unavailable Juan R Oliver Attending Clinician Unavailable IVTA JAIMES Attending Clinician Unavailable BIRD YEN Attending Clinician Unavailable Bird Yen MD Attending Clinician Virtual, Surgeon Attending Clinician Unavailable VITA JAIMES Attending Clinician Unavailable OMAR YEN Attending Clinician Unavailable 1, [facility] Room Attending Clinician Unavailable FERNANDO POOLE Attending Clinician Unavailable Michael Campos Attending Clinician ALEC FOSS Attending Clinician Unavailable Omar Yen MD Attending Clinician Vita Jaimes MD Attending Clinician Fernando Poole MD Attending Clinician Doctor Unassigned, Richards Attending Clinician Unavailable 2, [facility] Attending Clinician Unavailable Alec Foss MD Attending Clinician Alfredo MARTIN, Nestor Parker Attending Clinician C-Arm, Pmr Siemens Attending Clinician Chas MARTIN, Giancarlo Attending Clinician 13, [facility] Chair Attending Clinician Uzma PhD, Shun Attending Clinician Frandy MARTIN, Manny Leos Attending Clinician Mercy Garcia Attending Clinician Juanita RAYMUNDO, Kayleigh Attending Clinician Unavailable VITA JAIMES Admitting Clinician Unavailable BIRD YEN Admitting Clinician Unavailable Payers Payer Name Policy Type Policy Number Effective Date Expiration Date S polly MEDICARE PART A AND [id number] 2020 B 00:00:00 BCBS HMO [id number] 2017 BLUE/ESSENTIALS 00:00:00 MEDICARE A B [id number] 2020 00:00:00 MEDICARE PART A \\T\\ [id number] B - MEDICARE [facility] [id number] 2020 SECONDARY 65+ - 00:00:00 BCBS CVCP-BCBS [id number] O BLUE BEHAVIORAL [id number] [facility] MEDIC[facility] PART A \\T\\ [id number] 2020 B 00:00:00 BCBS TRADITIONAL [id number] 2020 00:00:00 CDC REVIEW [id number] 2020 00:00:00 Problems Condition Condition Condition Status Onset Resolution Last Treating Co mments Source Name Details Category Date Date Treatment Clinician Date Overactive Overactive Disease Active [facility] bladder bladder 08-08 [facility] 00:00: of 00 Medicin e Constipati Constipati Disease Active [facility] on 08-02 [facility] 00:00: of 00 Medicin e ORTEGA ORTEGA Disease Active [facility] (stress (stress 08-02 College urinary urinary [...] Medical Branch Vaginal Vaginal Disease Active 2019-07 [facility] bleeding bleeding 1-19 Colleg e 00:00: of 00 Medicin e Port-A-Cat Port-A-Cat Disease Active [facility] h in place h in place 8-11 Co llege 00:00: of 00 Medicin e Urothelial Urothelial Disease Active [facility] Malignant Malignant Disease Active [facility] neoplasm neoplasm 4-07 [facility] e of of 00:00: of overlappin overlappin 00 Me dicin g sites of g sites of e bladder bladder (HCCode) (HCCode) Bladder Bladder Disease Active [facility] 3[facility]27 [facility] 00 [facility] Malignant Malignant Disease Active [facility] vers neoplasm [...] (finding) (finding) 1- 23:13:08 l Active 00:00: [place] 08/17/2015 00 Problem 07/06/2021 [facility] Paresthesi Paresthes Problem Active 2016-0 2021-07-06 [facility] a ia 08-17 23:13:08 l (finding) (finding) 00:00: Herm beto Active 00 08/17/2015 Problem 07/06/2021 [facility] Malignant Malignant Problem Active Com mon neoplasm neoplasm [facility] urinary - [facility] bladder, bladder, St unspecifie unspecifie [facility] Malignant Malignant Problem Active Com [facility] neoplasm neoplasm [facility] overlappin overlappin St g sites of g sites of 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 Problem 07/06/2021 [facility] Dizziness Dizziness Problem Active 2021-07-06 [facility] (finding) (finding) 23:13:08 l Active [place] Problem 07/06/2021 [facility] Hip pain Hip pain Problem Active 2021-07-06 [facility] (finding) (finding) 23:13:08 l Active [place] Problem 07/06/2021 [facility] Hypertensi Hypertens Problem [...] Me moria (finding) (finding) 23:13:08 l Active [place] Problem 07/06/2021 [facility] Peripheral Periphera Problem Active 2021-07-06 [facility] nerve l nerve 23:13:08 l disease disease Aleksey (disorder) (disorder) Active Problem 07/06/2021 [facility] Visual Visual Problem Active 2021-07-06 Mayoc marylu disturbanc disturbanc 23:13:08 l e e [place] (disorder) (disorder) Active Problem 07/06/2021 [facility] [...] Center ICS) Sulfa Propensi Active Swelling 2020-0 [facility] Antibiot ty to 3-17 [facility] ics adverse 00:00: of reaction 00 Medicin s to e drug sulfa sulfa Active [facility] drugs drugs l Aleksey NO KNOWN Drug Active Univers ALLERGIE Class [facility] Family History Family Member Diagnosis Comments Start Date Stop Date Source Natural father Diabetes [facility] Natural mother Breast Cancer [facility] Natural mother High Blood Pressure B [facility] Social History Social Habit Start [...] (finding) Exposure to 2022-02-04 2022-02-14 Not sure [facility] Lisaawa cornelius SARS-CoV-2 (event) 00:00:00 10:42:00 [...] Stop Date Source Unknown if ever smoked [facility] Social History [facility] Medications Ordered Filled Start Stop Current Ordering [...] MG 11:07: mouth Medical capsule 12 daily. [place] atorvastati Yes 20mg QD Take [address] n (LIPITOR) 9-15 by mouth Luke s 20 MG 11:07: daily. Medical tablet 12 Center lamoTRIgine Yes 50mg QD Take [address] (LAMICTAL) 9-15 by mouth [facility] 25 MG 11:07: daily. Medical tablet 12 [place] hydrOXYzine Yes anxiety 50mg Q.[id number] Take [address] (ATARAX) 25 9-15 [id number] by mouth 3 [facility] MG tablet 11:07: [...] Luke s 11:07: mouth Medical 12 daily. [place] vit A/C/E Yes QD Take by [facility] ac/ZnOx/cup 9-15 mouth [facility] rory oxide 11:07: daily. Medica l (EYE 12 Center VITAMIN AND MINERALS ORAL) b complex Yes 1{capsu QD Take [address] vitamins 9-15 le} capsule by [facility] capsule 11:07: mouth Medical 12 daily. [facility] calcium Yes 1{tbl} Q.5D Take 1 [facility] [...] 11:07: mouth Medica l GG, 12 daily. [facility] (CULTURELLE ) 10 billion cell capsule polycarboph Yes 625mg Q.[id number] Take [address] il 9-15 [id number] mg by [facility] (FIBERCON) 11:07: 3D mouth 3 Medi mariama 625 mg 12 (three) Center tablet times daily. biotin Yes QD Take by [facility] 2,500 mcg 9-15 mouth [facility] Cap 11:07: daily. Medical 12 [place] MAGNESIUM Yes Take by [facility] t GLYCINATE 9-15 mouth. [facility] ORAL 11:07: Medical 12 Center UNKNOWN Yes L-Theanine [facility] 9-15 200 mg [facility] 11:07: daily . Medical 12 Center ascorbic Yes 500mg QD Take [address] acid, 9-15 mg by [facility] vitamin C, 11:07: mouth Medica l (VITAMIN C) 12 daily. [facility] 500 MG tablet TURMERIC Yes Take by [facility] ORAL 9-15 mouth. [facility] 11:07: Medical 12 [place] triamterene Yes 1{capsu QD Take 1 C [...] MG 11:07: mouth Medical capsule 12 daily. [place] atorvastati Yes 20mg QD Take [address] n (LIPITOR) 9-15 by mouth Luke s 20 MG 11:07: daily. Medical tablet 12 [place] lamoTRIgine Yes 50mg QD Take [address] (LAMICTAL) 9-15 by mouth [facility] 25 MG 11:07: daily. Medical tablet 12 [place] hydrOXYzine Yes anxiety 50mg Q.[id number] Take [address] (ATARAX) 25 9-15 [id number] by mouth 3 [facility] MG tablet 11:07: [...] 11:07: daily. Medica l OIL) 120 12 [facility] mg-180 mg- 60 mg-1,200 mg CpDR lactobacill Yes 1{capsu QD Take [address] us 9-15 le} capsule by [facility] rhamnosus, 11:07: mouth Medica l GG, 12 daily. [facility] (CULTURELLE ) 10 billion cell capsule polycarboph Yes 625mg Q.[id number] Take [address] il 9-15 [id number] mg by [facility] (FIBERCON) 11:07: 3D mouth 3 Medi mariama 625 mg 12 (three) Center tablet times daily. biotin Yes QD Take by [facility] 2,500 mcg 9-15 mouth [facility] Cap 11:07: daily. [address] MAGNESIUM Yes Take by [facility] t GLYCINATE 9-15 mouth. [facility] ORAL 11:07: Medical [address] [place] [address] UNKNOWN 0 Yes L-Theanine [facility] 9-15 200 mg [facility] 11:07: daily . [address] ascorbic Yes 500mg QD Take [address] acid, 9-15 mg by [facility] vitamin C, 11:07: mouth Medica l (VITAMIN C) 12 daily. [facility] 500 MG tablet TURMERIC Yes Take by [facility] ORAL 9-15 mouth. [facility] 11:07: Medical [address] [place] [address] triamterene Yes 1{capsu QD Take 1 C [...] MG 11:07: mouth Medical capsule 12 daily. [place] atorvastati Yes 20mg QD Take [address] n (LIPITOR) 9-15 by mouth Luke s 20 MG 11:07: daily. Medical tablet 12 [place] lamoTRIgine Yes 50mg QD Take [address] (LAMICTAL) 9-15 by mouth [facility] 25 MG 11:07: daily. Medical tablet 12 [place] hydrOXYzine Yes anxiety 50mg Q.[id number] Take [address] (ATARAX) 25 9-15 [id number] by mouth 3 [facility] MG tablet 11:07: [...] Luke s 11:07: mouth Medical 12 daily. [place] vit A/C/E Yes QD Take by [facility] ac/ZnOx/cup 9-15 mouth [facility] rory oxide 11:07: daily. Medica l (EYE 12 Center VITAMIN AND MINERALS ORAL) b complex Yes 1{capsu QD Take [address] vitamins 9-15 le} capsule by [facility] capsule 11:07: mouth Medical 12 daily. [place] calcium Yes 1{tbl} Q.5D Take 1 [facility] [...] 11:07: mouth Medica l GG, 12 daily. [facility] (CULTURELLE ) 10 billion cell capsule polycarboph Yes 625mg Q.[id number] Take [address] il 9-15 [id number] mg by [facility] (FIBERCON) 11:07: 3D mouth 3 Medi mariama 625 mg 12 (three) Center tablet times daily. biotin Yes QD Take by [facility] 2,500 mcg 9-15 mouth [facility] Cap 11:07: daily. Medical 12 [place] MAGNESIUM Yes Take by [facility] t GLYCINATE 9-15 mouth. [facility] ORAL 11:07: Medical 12 [place] UNKNOWN Yes L-Theanine [facility] 9-15 200 mg [facility] 11:07: daily . Medical 12 [place] ascorbic Yes 500mg QD Take [address] acid, 9-15 mg by [facility] vitamin C, 11:07: mouth Medica l (VITAMIN C) 12 daily. [facility] 500 MG tablet TURMERIC Yes Take by [facility] ORAL 9-15 mouth. [facility] 11:07: Medical 12 [place] triamterene Yes 1{capsu QD Take [address] -hydroCHLOR 9-15 le} capsule by Marquita ocampo Othiazide 11:07: mouth Medical (DYAZIDE) 12 every Center 37.5-25 mg morning. per capsule potassium Yes 10meq QD Take [address] chloride 9-15 mEq by [facility] (MICRO-K) 11:07: mouth Medical 10 mEq CR [...] MG 11:07: mouth Medical capsule 12 daily. Center atorvastati Yes 20mg QD Take [address] n (LIPITOR) 9-15 by mouth Luke s 20 MG 11:07: daily. Medical tablet 12 Center lamoTRIgine Yes 50mg QD Take [address] (LAMICTAL) 9-15 by mouth [facility] 25 MG 11:07: daily. Medical tablet 12 Center hydrOXYzine Yes anxiety 50mg Q.[id number] Take [address] (ATARAX) 25 9-15 [id number] by mouth 3 [facility] MG tablet 11:07: [...] Luke s 11:07: mouth Medical 12 daily. [place] vit A/C/E Yes QD Take by [facility] ac/ZnOx/cup 9-15 mouth [facility] rory oxide 11:07: daily. Medica l (EYE 12 Center VITAMIN AND MINERALS ORAL) b complex Yes 1{capsu QD Take [address] vitamins 9-15 le} capsule by [facility] capsule 11:07: mouth Medical 12 daily. [place] calcium Yes 1{tbl} Q.5D Take 1 [facility] [...] 11:07: mouth Medica l GG, 12 daily. [facility] 10 billion cell capsule polycarboph Yes 625mg Q.[id number] Take [address] il 9-15 [id number] mg by [facility] (FIBERCON) 11:07: 3D mouth 3 Medi mariama 625 mg 12 (three) Center tablet times daily. biotin Yes QD Take by [facility] 2,500 mcg 9-15 mouth [facility] Cap 11:07: daily. [address] MAGNESIUM Yes Take by [facility] GLYCINATE 9-15 mouth. [facility] ORAL 11:07: [address] UNKNOWN Yes L-Theanine [facility] 9-15 200 mg [facility] 11:07: daily . [address] ascorbic Yes 500mg QD Take [address] acid, 9-15 mg by [facility] vitamin C, 11:07: mouth Medica l (VITAMIN C) 12 daily. [facility] 500 MG tablet TURMERIC Yes Take by [facility] ORAL 9-15 mouth. [facility] 11:07: [address] b complex Yes 1{capsu QD Take [address] vitamins 8-30 le} capsule by [facility] capsule 11:05: mouth Medical 32 daily. [place] calcium Yes 1{tbl} Q.5D Take [address] citrate-vit 8-30 tablet by Alexia es oliver D 11:05: mouth 2 Medical (CITRACAL+D 32 (two) Center ) 315-200 times mg-unit per daily. tablet omega-3s-dh Yes QD Take by [facility] a-epa-fish 8-30 mouth [facility] oil (FISH 11:05: daily. Medica l OIL) 120 32 [place] mg-180 mg- 60 mg-1,200 mg CpDR lactobacill Yes 1{capsu QD Take [address] us 8-30 le} capsule by [facility] rhamnosus, 11:05: mouth Medica l GG, 32 daily. [facility] ([facility] 10 billion cell capsule polycarboph Yes 625mg Q.[id number] Take [address] il 8-30 [id number] mg by [facility] (FIBERCON) 11:05: 3D mouth 3 Medi mariama 625 mg 32 (three) Center tablet times daily. biotin Yes QD Take by [facility] 2,500 mcg 8-30 mouth [facility] Cap 11:05: daily. [address] MAGNESIUM Yes Take by [facility]I [facility] t GLYCINATE 8-30 mouth. [facility] ORAL 11:05: Medical [address] [place] [address] UNKNOWN Yes L-Theanine [facility] 8-30 200 mg [facility] 11:05: daily . [address] ascorbic Yes 500mg QD Take [address] acid, 8-30 mg by [facility] vitamin C, 11:05: mouth Medica l (VITAMIN C) 32 daily. [place] 500 MG tablet TURMERIC Yes Take by [facility] ORAL 8-30 mouth. [facility] 11:05: [address] triamterene Yes 1{capsu QD Take [address] -hydroCHLOR 8-30 le} capsule by Marquita ocampo Othiazide 11:05: mouth Medical (DYAZIDE) 32 every Center 37.5-25 mg morning. per capsule potassium Yes 10meq QD Take [address] chloride 8-30 mEq by [facility] (MICRO-K) 11:05: mouth Medical 10 mEq CR 32 daily . [place] capsule levothyroxi Yes 125ug Take [address] ne 8-30 mcg by [facility] (SYNTHROID, 11:05: mouth Medic al LEVOTHROID) 32 Every Center 125 MCG morning on tablet an empty stomach. gabapentin Yes 300mg QD Take [address] (NEURONTIN) 8-30 mg by [facility] 300 MG 11:05: mouth Medical capsule 32 daily. [place] atorvastati Yes 20mg QD Take [address] n (LIPITOR) 8-30 by mouth Luke s 20 MG 11:05: daily. Medical tablet 32 Center lamoTRIgine Yes 50mg QD Take [address] (LAMICTAL) 8-30 by mouth [facility] 25 MG 11:05: daily. Medical tablet 32 Center hydrOXYzine Yes anxiety 50mg Q.[id number] Take [address] (ATARAX) 25 8-30 [id number] by mouth 3 [facility] MG tablet 11:05: 3D (three) Medic al 32 times Center daily . baclofen Yes 10mg Q.5D Take [address] (LIORESAL) 8-30 by mouth 2 Alexia es 10 MG 11:05: (two) Medical tablet 32 times Center daily. multivitami Yes 1{capsu QD Take [address] n capsule 8 le} capsule by Luke s 11:05: mouth Medical 32 daily. Center vit A/C/E Yes QD Take by [facility] ac/ZnOx/cup 8-30 mouth [facility] rory oxide 11:05: daily. Medica l (EYE 32 Center VITAMIN AND MINERALS ORAL) gabapentin Yes 300mg Take 300 [facility] (NEURONTIN) 8-02 mg by [facility] 300 MG 15:41: mouth of capsule 27 daily. Medicin e levothyroxi Yes 112ug Take 112 [facility] 8-02 mcg by [facility] [facility] (SYNTHROID) 15:41: mouth of 112 MCG 27 daily. Medicin tablet e olanzapine Yes 5mg Take 5 mg [facility] (ZYPREXA) 5 8-02 by mouth Shanel ege MG tablet 15:41: nightly. of 27 Medicin e Aspirin 81 0 Yes 81mg Take 81 mg [facility] MG tablet 8-02 by mouth Colleg e 15:41: daily. of 27 Medicin e atorvastati Yes 80mg Take 80 mg [facility] n (LIPITOR) 8-02 by mouth Shanel ege 80 MG 15:41: daily. of tablet 27 Medicin e gabapentin Yes 300mg Take 300 [facility] (NEURONTIN) 7-29 mg by [facility] 300 MG 11:32: mouth of capsule 54 daily. Medicin e levothyroxi Yes 112ug Take [...] daily. of tablet 54 Medicin e gabapentin Yes 300mg Take 300 [facility] (NEURONTIN) 4-29 mg by [facility] 300 MG 10:38: mouth of capsule 03 daily. Medicin e levothyroxi Yes 112ug Take 112 [facility] ne 4-29 mcg by [facility] [facility] (SYNTHROID) 10:38: mouth of 112 MCG 03 daily. Medicin tablet e olanzapine Yes 5mg Take 5 mg [facility] (ZYPREXA) 5 4-29 by mouth Shanel ege MG tablet 10:38: nightly. of 03 Medicin e Aspirin 81 Yes 81mg Take 81 mg [facility] MG tablet 4-29 by mouth Colleg e 10:38: daily. of Medicin e Aspirin Yes 81mg Take 81 mg [facility] (ASPIR-LOW) 3-01 by mouth Shanel ege 81 MG 15:04: daily. of tablet 50 Medicin e gabapentin Yes 300mg Take 300 [facility] (NEURONTIN) 3-01 mg by [place] [facility] 300 MG 15:04: mouth of capsule 33 daily. Medicin e levothyroxi Yes 112ug Take 112 [facility] ne 3-01 mcg by [place] [facility] (SYNTHROID) 15:04: mouth of 112 MCG 33 daily. Medicin tablet e olanzapine Yes 5mg Take 5 mg [facility] (ZYPREXA) 5 3-01 by mouth Shanel ege MG tablet 15:04: nightly. of 33 Medicin e atorvastati 2021- No 20mg Take 20 mg [facility] (LIPITOR) 3-09-17 by mouth Col lege 20 MG 15:04: 00:00 daily. of tablet 29 :00 Medicin e Turmeric 2021-2021- No 1{sonia Take 1 [facility] Curcumin 3-09-17 t} Caplet by Col[facility] 500 MG CAPS 15:04: 00:00 mouth See of 29 :00 Admin Medicin Instructio e ns. trospium Yes [id number] 20mg Take 1 [facility] (SANCTURA) 3-01 Tablet by Shanel ege 20 MG 00:00: mouth 3 of tablet 00 times Medicin daily e (before meals). trospium 2022-0 Yes [id number] 20mg Take 1 [facility] (SANCTURA) 3-01 Tablet by Shanel ege 20 MG 00:00: mouth 3 of tablet 00 times Medicin daily e (before meals). trospium 2022-0 Yes [id number] 20mg Take 1 [facility] (SANCTURA) 3-01 Tablet by Shanel ege 20 MG 00:00: mouth 3 of tablet 00 times Medicin daily e (before meals). gabapentin 2021-0 Yes 300mg Take 300 [facility] (NEURONTIN) 1-28 mg by [facility] 300 MG 10:09: mouth of capsule 27 daily. Medicin e atorvastati 0 Yes 20mg Take 20 mg [facility] (LIPITOR) 1-28 by mouth Shanel ege 20 MG 10:09: daily. of tablet 27 Medicin e levothyroxi 0 Yes 112ug Take 112 [facility] ne 1-28 mcg by [facility] [facility] (SYNTHROID) 10:09: mouth of 112 MCG 27 daily. Medicin tablet e olanzapine 0 Yes 5mg Take 5 mg [facility] (ZYPREXA) 5 1-28 by mouth Shanel ege MG tablet 10:09: nightly. of 27 Medicin e Turmeric 0 Yes 1{sonia Take 1 [facility] Curcumin 1-28 t} Caplet by Lisa e 500 MG CAPS 10:09: mouth See o f 27 Admin Medicin Instructio e ns. gabapentin 2021-0 Yes 300mg Take 300 [facility] (NEURONTIN) 1-20 mg by [facility] [facility] 300 MG 11:03: mouth of capsule 14 daily. Medicin e atorvastati 2021-0 Yes 20mg Take 20 mg [facility] (LIPITOR) 1-20 by mouth Shanel ege 20 MG 11:03: daily. of tablet 14 Medicin e levothyroxi 2021-0 Yes 112ug Take 112 [facility] ne 1-20 mcg by [facility] (SYNTHROID) 11:03: mouth of 112 MCG 14 daily. Medicin tablet e olanzapine 2021-0 Yes [...] atorvastati 2020-07 [facility] (LIPITOR) 2-15 03-01 [facility] 80 MG 00:00: 00:00 of tablet 00 :00 Medicin e olanzapine 2020-07 Yes 5 mg = 1 Mem oria 5 MG Oral 1-04 tab, PO, l Tablet 15:28: TID, 0 [place] 00 Refill(s) olanzapine 2020-07 Yes 5 mg [...] tab, PO, l Tablet 15:28: TID, 0 [place] 00 Refill(s) olanzapine 2020-07 Yes 5 mg = 1 Mem oria 5 MG Oral 1-04 tab, PO, l Tablet 15:28: TID, 0 Aleksey 00 Refill(s) gabapentin 2020-07 Yes 400 mg = 1 M emoria 400 MG Oral 1-04 cap, PO, l Capsule 15:24: Bedtime, # Herm beto 00 90 cap, 1 Refill(s), Pharmacy: [facility] #[id number], 157.48, cm, 05/23/21 10:05:00 CDT, Height, 63.182, kg, 05/23/21 10:05:00 CDT, Weight gabapentin 2020-07 Yes 400 mg = 1 M emoria 400 MG Oral 1-04 cap, PO, l Capsule 15:24: Bedtime, # Herm beto 00 90 cap, 1 Refill(s), Pharmacy: [facility] #[id number], 157.48, cm, 05/23/21 10:05:00 CDT, Height, 63.182, kg, 05/23/21 10:05:00 CDT, Weight gabapentin 2020-07 Yes 400 mg = 1 M emoria 400 MG Oral 1-04 cap, PO, l Capsule 15:24: Bedtime, # Herm beto 00 90 cap, 1 Refill(s), Pharmacy: [facility] #[id number], 157.48, cm, 05/23/21 10:05:00 CDT, Height, 63.182, kg, 05/23/21 10:05:00 CDT, Weight gabapentin 2020-07 Yes 400 mg = 1 M emoria 400 MG Oral 1-04 cap, PO, l Capsule 15:24: Bedtime, # Herm beto 00 90 cap, 1 Refill(s), Pharmacy: [facility] #[id number], 157.48, cm, 05/23/21 10:05:00 CDT, Height, 63.182, kg, 05/23/21 10:05:00 CDT, Weight gabapentin 2020-07 Yes 400 mg = 1 M emoria 400 MG Oral 1-04 cap, PO, l Capsule 15:24: Bedtime, # Herm beto 00 90 cap, 1 Refill(s), Pharmacy: [facility] #[id number], 157.48, cm, 05/23/21 10:05:00 CDT, Height, 63.182, kg, 05/23/21 10:05:00 CDT, Weight docusate 2020-07 Yes TAKE 1 [facility] sodium 0-26 CAPSULE BY [facility] (COLACE) 00:00: MOUTH of 100 MG 00 DAILY Medicin capsule e omeprazole 2020-07 Yes TAKE 1 [facility] (PRILOSEC) 0-26 CAPSULE BY [facility] legcornelius 40 MG 00:00: MOUTH of capsule 00 DAILY Medicin e polyethylen 2020-07 Yes MIX 17 [facility] glycol 0-26 GRAMS INTO Colle [facility] (GLYCOLAX) 00:00: 8 [facility] of 17 GM/SCOOP 00 OF WATER Medi khushi powder OR JUICE e AND DRINK BY MOUTH EVERY OTHER DAY docusate 2020-07 Yes TAKE 1 [facility] sodium 0-26 CAPSULE BY [facility] (COLACE) 00:00: MOUTH of 100 MG 00 [...] TAKE 1 [facility] sodium 0-26 CAPSULE BY [facility] (COLACE) 00:00: MOUTH of 100 MG 00 DAILY Medicin capsule e docusate 2020-07 Yes TAKE 1 [facility] sodium 0-26 CAPSULE BY [facility] [facility] (COLACE) 00:00: MOUTH of 100 MG 00 DAILY Medicin capsule e docusate 2020-07 Yes TAKE 1 [facility] sodium 0-26 CAPSULE BY [facility] (COLACE) 00:00: MOUTH of 100 MG 00 DAILY Medicin capsule e docusate 2020-07 Yes TAKE 1 [facility] sodium 0-26 CAPSULE BY [facility] (COLACE) 00:00: MOUTH of 100 MG 00 DAILY Medicin capsule e omeprazole 2020-07- No TAKE 1 [facility] (PRILOSEC) 0-26 03-01 CAPSULE BY Co llege 40 MG 00:00: 00:00 MOUTH of capsule 00 :00 DAILY Medicin e polyethylen 2020-07- No MIX 17 [facility] e glycol 0-26 03-01 GRAMS INTO Shanel ege (GLYCOLAX) 00:00: 00:00 8 [facility] of 17 GM/SCOOP 00 :00 OF WATER Medi khushi powder OR JUICE e AND DRINK BY MOUTH EVERY OTHER DAY gabapentin 2020-07 Yes 300mg Take 300 [facility] (NEURONTIN) 0-19 mg by [facility] 300 MG 14:36: mouth of capsule 24 daily. Medicin e atorvastati 2020-07 Yes 20mg Take 20 mg [facility] (LIPITOR) 0-19 by mouth Shanel ege 20 MG 14:36: daily. of tablet 24 Medicin e levothyroxi 2020-07 Yes 112ug Take 112 [facility] ne 0-19 mcg by [facility] [facility] (SYNTHROID) 14:36: mouth of 112 MCG 24 [...] 300 [facility] (NEURONTIN) 7-13 mg by [facility] 300 MG 13:24: mouth of capsule 06 daily. Medicin e atorvastati Yes 20mg Take 20 mg [facility] (LIPITOR) 7-13 by mouth Shanel ege 20 MG 13:24: daily. of tablet 06 Medicin e levothyroxi Yes 112ug Take 112 [facility] ne 7-13 mcg by [facility] (SYNTHROID) 13:24: mouth of 112 MCG 06 daily. Medicin tablet e olanzapine Yes 5mg Take 5 mg [facility] (ZYPREXA) 5 7-13 by mouth Shanel ege MG tablet 13:24: nightly. of 06 Medicin e clonazepam Yes 1{tbl} Take 1 [facility] (KLONOPIN) 7-13 Tablet by Shanel ege 0.5 MG 13:24: mouth at of tablet 06 bedtime. Medicin e Turmeric Yes 1{sonia Take 1 [facility] Curcumin 7-13 t} Caplet by Colleg [facility] 500 MG CAPS 13:24: mouth See o f 06 Admin Medicin Instructio e ns. gabapentin Yes 300mg Take 300 [facility] (NEURONTIN) 7-13 mg by [facility] 300 MG 13:24: mouth of capsule 06 daily. Medicin e atorvastati Yes 20mg Take 20 mg [facility] (LIPITOR) 7-13 by mouth Shanel ege 20 MG 13:24: daily. of tablet 06 Medicin e levothyroxi Yes 112ug Take 112 [facility] ne 7-13 mcg by [facility] (SYNTHROID) 13:24: mouth of 112 MCG 06 daily. Medicin tablet e olanzapine Yes 5mg Take 5 mg [facility] (ZYPREXA) 5 -13 by mouth Shanel ege MG tablet 13:24: nightly. of 06 Medicin e escitalopra 2020-0 2020- No 5mg Take 5 mg [facility] m (LEXAPRO) 01-29 0713 by mouth [...] escitalopra 0 Yes 20mg Take 20 mg [facility] m (LEXAPRO) 7- by mouth Shanel ege 20 MG 00:00: daily. of tablet 00 Medicin e escitalopra 2020-0 Yes 20mg Take 20 mg [facility] (LEXAPRO) 7-01 by mouth Shanel ege 20 MG 00:00: daily. of tablet 00 Medicin e escitalopra 0 Yes 20mg Take 20 mg [facility] m (LEXAPRO) 7-01 by mouth Shanel ege [...] nn 00 30 tab, 3 Refill(s), [id number], 157.48, cm, 01/09/21 9:30:00 CDT, Height, 61.818, kg, 01/09/21 9:30:00 CDT, Weight baclofen 10 2020-0 Yes 10 mg = 1 M emoria mg oral 6-23 tab, PO, l tablet 14:58: Bedtime, # Bing nn 00 30 tab, 3 Refill(s), [id number], 157.48, cm, 01/09/21 9:30:00 CDT, Height, 61.818, kg, 01/09/21 9:30:00 CDT, Weight baclofen 10 0 Yes 10 mg = 1 M emoria mg oral 6-23 tab, PO, l tablet 14:58: Bedtime, # Bing nn 00 30 tab, 3 Refill(s), [id number], 157.48, cm, 01/09/21 9:30:00 CDT, Height, 61.818, kg, 01/09/21 9:30:00 CDT, Weight baclofen 10 2020-0 Yes 10 mg = 1 M emoria mg oral 6-23 tab, PO, l tablet 14:58: Bedtime, # Bing nn 00 30 tab, 3 Refill(s), [facility][id number], 157.48, cm, 01/09/21 9:30:00 CDT, Height, 61.818, kg, 01/09/21 9:30:00 CDT, Weight baclofen 10 Yes 10 mg = 1 M emoria mg oral 01-09 tab, PO, l tablet 14:58: Bedtime, # Bing nn 00 30 tab, 3 Refill(s), Pharmacy: [facility] #[id number], 157.48, cm, 01/09/21 9:30:00 CDT, Height, 61.818, kg, 01/09/21 9:30:00 CDT, Weight baclofen Yes 10mg Take 10 mg [facility] (LIORESAL) 01-09 by mouth Colle ge 10 MG 00:00: at of tablet 00 bedtime. Medicin e baclofen No 10mg Take 10 mg [facility] (LIORESAL) 01-09 10-19 by mouth Shanel ege 10 MG 00:00: 00:00 at of tablet 00 :00 bedtime. Medicin e gabapentin Yes 300mg Take 300 [facility] (NEURONTIN) 12-18 mg by [place] 300 MG 15:26: mouth of capsule 27 daily. Medicin e atorvastati Yes 20mg Take 20 mg [facility] n (LIPITOR) 12-18 by mouth Shanel ege 20 MG 15:26: daily. of tablet 27 Medicin e escitalopra Yes 5mg Take 5 mg [facility] m (LEXAPRO) 12-18 by mouth Shanel ege 5 MG tablet 15:26: daily. of 27 Medicin e levothyroxi Yes 112ug Take 112 [facility] ne 6- mcg by [place] (SYNTHROID) 15:26: mouth of 112 MCG 27 daily. Medicin tablet e olanzapine Yes 5mg Take 5 mg [facility] (ZYPREXA) 5 6- by mouth Shanel ege MG tablet 15:26: nightly. of 27 Medicin e trospium Yes [id number] 20mg Take 1 [facility] (SANCTURA) 6- Tablet by Shanel ege 20 MG 00:00: mouth 3 of tablet 00 times Medicin daily e (before meals). trospium 0 Yes [id number] 20mg Take 1 [facility] (SANCTURA) 6-01 Tablet by Shanel ege 20 MG 00:00: mouth 3 of tablet 00 times Medicin daily e (before meals). trospium 2020-0 Yes [id number] 20mg Take 1 [facility] (SANCTURA) 6-01 Tablet by Shanel ege 20 MG 00:00: mouth 3 of tablet 00 times Medicin daily e (before meals). trospium 2020-0 Yes [id number] 20mg Take 1 [facility] (SANCTURA) 6-01 Tablet by Shanel ege 20 MG 00:00: mouth 3 of tablet 00 times Medicin daily e (before meals). trospium 2020-0 Yes [id number] 20mg Take 1 [facility] (SANCTURA) 6-01 Tablet by Shanel ege 20 MG 00:00: mouth 3 of tablet 00 times Medicin daily e (before meals). trospium 2020-0 Yes [id number] 20mg Take 1 [facility] (SANCTURA) 6-01 Tablet by Shanel ege 20 MG 00:00: mouth 3 of tablet 00 times Medicin daily e (before meals). trospium 2020-0 Yes [id number] 20mg Take 1 [facility] (SANCTURA) 6-01 Tablet by Shanel ege 20 MG 00:00: mouth 3 of tablet 00 times Medicin daily e (before meals). gabapentin Yes 300mg Take 300 [facility] (NEURONTIN) 4-29 mg by [place] 300 MG 16:09: mouth of capsule 13 daily. Medicin e atorvastati Yes 20mg Take 20 mg [facility] n (LIPITOR) 4-29 by mouth Shanel ege 20 MG 16:09: daily. of tablet 13 Medicin e escitalopra Yes 5mg Take 5 mg [facility] (LEXAPRO) 4-29 by mouth Shanel ege 5 MG tablet 16:09: daily. of 13 Medicin e levothyroxi Yes 112ug Take 112 [facility] ne 4-29 mcg by [place] (SYNTHROID) 16:09: mouth of 112 MCG 13 daily. Medicin tablet e olanzapine Yes 5mg Take 5 mg [facility] (ZYPREXA) 5 4-29 by mouth Shanel ege MG tablet 16:09: nightly. of 13 Medicin e trospium 2020-0 2020- No [id number] 20mg Take 1 [facility] (SANCTURA) 4-29 06- Tablet by [facility] lege 20 MG 00:00: 00:00 mouth 3 of tablet 00 :00 times Medicin daily e (before meals). BISACODYL 5 Yes 1{tbl} Take 1 [facility] MG EC 4-21 Tablet by [place] tablet 00:00: mouth of 00 daily. Medicin e BISACODYL 5 2020-0 2020- No 1{tbl} Take 1 [facility] MG EC 4-21 10-19 Tablet by [place] tablet 00:00: 00:00 mouth of 00 :00 daily. Medicin e olanzapine Yes 5mg Take 5 mg [facility] (ZYPREXA) 5 4-09 by mouth Shanel ege MG tablet 16:47: nightly. of 51 Medicin e gabapentin Yes 300mg Take 300 [facility] (NEURONTIN) 4-09 mg by [place] 300 MG 16:46: mouth of capsule 06 daily. Medicin e atorvastati Yes 20mg Take 20 mg [facility] n (LIPITOR) 4-09 by mouth Shanel ege 20 MG 16:46: daily. of tablet 06 Medicin e escitalopra Yes 5mg Take 5 mg [facility] (LEXAPRO) 4-09 by mouth Shanel ege 5 MG tablet 16:46: daily. of 06 Medicin e levothyroxi Yes 112ug Take 112 [facility] ne 4-09 mcg by [place] (SYNTHROID) 16:46: mouth of 112 MCG 06 daily. Medicin tablet e atorvastati Yes 20mg Take 20 mg [facility] n (LIPITOR) 3-18 by mouth Shanel ege 20 MG 15:40: daily. of tablet 34 Medicin e escitalopra Yes 5mg Take 5 mg [facility] (LEXAPRO) 3-18 by mouth Shanel ege 5 MG tablet 15:40: daily. of 34 Medicin e levothyroxi Yes 112ug Take 112 [facility] ne 3-18 mcg by [place] (SYNTHROID) 15:40: mouth of 112 MCG 34 daily. Medicin tablet e gabapentin 0 Yes 300mg Take 300 [facility] (NEURONTIN) 3-18 mg by [facility] 300 MG 15:40: mouth of capsule 34 [...] 112 [facility] ne 3-18 mcg by [facility] (SYNTHROID) 15:40: mouth of 112 MCG 34 daily. Medicin tablet e gabapentin 0 Yes 300mg Take 300 [facility] (NEURONTIN) 3-18 mg by [place] 300 MG 15:40: mouth of capsule 34 daily. Medicin e gabapentin 0 Yes 300mg Take 300 [facility] (NEURONTIN) 2-19 mg by [place] 300 MG 21:01: mouth of capsule 41 [...] 112 [facility] ne 2-19 mcg by [place] (SYNTHROID) 21:01: mouth of 112 MCG 41 daily. Medicin tablet e FAMOTIDINE 2020- No 400mg Take 400 [facility] OR 2-19 02-19 mg by [facility] 21:01: 00:00 mouth of 29 :00 daily. Medicin e trospium 2020-0 Yes [id number] 20mg Take 1 [facility] (SANCTURA) 2-19 Tablet by Shanel ege 20 MG 00:00: mouth 3 of tablet 00 times Medicin daily e (before meals). trospium 2020-0 Yes [id number] 20mg Take 1 [facility] (SANCTURA) 2-19 Tablet by Shanel ege 20 MG 00:00: mouth 3 of tablet 00 times Medicin daily e (before meals). trospium 2021-0 Yes [id number] 20mg Take 1 [facility] (SANCTURA) 2-19 Tablet by Shanel ege 20 MG 00:00: mouth 3 of tablet 00 times Medicin daily e (before meals). trospium 2021-0 Yes [id number] 20mg Take 1 [facility] (SANCTURA) 2-19 Tablet by Shanel ege 20 MG 00:00: mouth 3 of tablet 00 times Medicin daily e (before meals). 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 gabapentin 2020-0 Yes 600 mg = 2 M emoria 300 MG Oral 2-17 cap, PO, l Capsule 19:42: Bedtime, # Herm beto 00 180 cap, 2 Refill(s), Pharmacy: [facility] #[id number], 160.02, cm, 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, Height, 59.545, kg, 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, 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 gabapentin 1-0 Yes 600 mg = 2 M emoria 300 MG Oral 2-17 cap, PO, l Capsule 19:42: Bedtime, # Herm beto 00 180 cap, 2 Refill(s), Pharmacy: [facility] #[id number], 160.02, cm, 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 amoxicillin 2020- No [id number] 1{tbl} Take 1 Hermelindo -clavulanat -15 09-07 Tablet by Co llege e 00:00: 00:00 mouth two of (AUGMENTIN) 00 :00 times Medicin 875-125 MG daily. e per tablet gabapentin Yes 300mg Take 300 [facility] (NEURONTIN) 1-14 mg by [place] 300 MG 16:03: mouth of capsule 32 daily. Medicin e atorvastati Yes 20mg Take 20 mg [facility] n (LIPITOR) 1-14 by mouth Shanel ege 20 MG 16:03: daily. of tablet 32 Medicin e FAMOTIDINE Yes 400mg Take 400 [facility] OR 1-14 mg by [place] 16:03: mouth of 32 daily. Medicin e escitalopra Yes 5mg Take 5 mg [facility] (LEXAPRO) 1-14 by mouth Shanel ege 5 MG tablet 16:03: daily. of 32 Medicin e levothyroxi Yes 112ug Take 112 [facility] ne 1-14 mcg by [place] (SYNTHROID) 16:03: mouth of 112 MCG 32 daily. Medicin tablet e Ascorbic 2020- No Take by Fadilo r Acid 07-27- mouth [place] (VITAMIN C) 17:43: 00:00 daily. of 500 MG CAPS 32 :00 Medicin e escitalopra Yes 5mg Take 5 mg [facility] (LEXAPRO) 07-27 by mouth Shanel ege 5 MG tablet 17:43: daily. of 31 Medicin e B Complex 2020- No Take by [facility] (B 07-27 mouth Colleg e COMPLEX 1 17:43: 00:00 daily. of OR) 26 :00 Medicin e baclofen 2020- No 10mg Take 10 mg Zachariah lambert (LIORESAL) 07-27 by mouth Shanel ege 10 MG 17:43: 00:00 two times of tablet 23 :00 daily. Medicin e BIOTIN 5000 2020- No Take by Zachariah lambert OR 07-27 mouth [place] 17:43: 00:00 daily. of 20 :00 Medicin e Calcium 2020- No Take by [facility] Citrate-Vit 07-27 mouth two Co llege oliver D 17:43: 00:00 times of (CALCIUM 17 :00 daily. Medicin CITRATE + D e OR) L-THEANINE 2020- No 200mg Take 200 B luigi OR 07-27 mg by [place] 17:43: 00:00 mouth of 11 :00 daily. Medicin e Lactobacill 2020- No Take by Zachariah lambert 07-27 mouth [place] (PROBIOTIC 17:43: 00:00 daily. of ACIDOPHILUS 08 :00 Medicin OR) e levothyroxi 2020- No 125ug Take 125 [facility] ne 07-27 mcg by [place] (SYNTHROID) 17:43: 00:00 mouth of 125 MCG 02 :00 daily. Medicin tablet e Lidocaine 2020- No Apply [facility] 0.5 % GEL 07-27 topically. Col lege 17:42: 00:00 of 59 :00 Medicin e Magnesium 2020- No Take by Lizette or 400 MG TABS 07-27 mouth. Colle ge 17:42: 00:00 of 47 :00 Medicin e Multiple 2020- No Take by [facility]-Mi 07-27 mouth Colleg e nerals 17:42: 00:00 daily. of (MULTIVITAM 40 :00 Medicin IN ADULT e OR) [place]-3 2020- No Take by [facility] Fatty Acids 07-27 mouth Colleg e (FISH OIL) 17:42: 00:00 daily. of 1200 MG 34 :00 Medicin CAPS e gabapentin 0 Yes 300mg Take 300 [facility] (NEURONTIN) 1-08 mg by [place] 300 MG 17:41: mouth of capsule 02 daily. Medicin e atorvastati Yes 20mg Take 20 mg [facility] n (LIPITOR) -08 by mouth Shanel ege 20 MG 17:41: daily. of tablet Medicin e FAMOTIDINE Yes 400mg Take 400 [facility] OR 1-08 mg by [place] 17:41: mouth of 02 daily. Medicin e lorazepam Yes 1mg Take 1 mg [facility] (ATIVAN) 1 1-07 by mouth Colle ge MG tablet 00:00: daily. of Medicin e lorazepam Yes 1mg Take 1 mg [facility] dayan (ATIVAN) 1 1-07 by mouth Colle [facility] MG tablet 00:00: daily. of Medicin e lorazepam 2020-0 Yes 1mg Take 1 mg [facility] (ATIVAN) 1 1-07 by mouth Colle [facility] MG tablet 00:00: daily. of Medicin e lorazepam 2020-0 Yes 1mg Take 1 mg [facility] (ATIVAN) 1 1-07 by mouth Colle [facility] MG tablet 00:00: daily. of Medicin e lorazepam 0 Yes 1mg Take 1 mg [facility] (ATIVAN) 1 1-07 by mouth Colle ge MG tablet 00:00: daily. of Medicin e lorazepam 2020-0 Yes 1mg Take 1 mg [facility] (ATIVAN) 1 1-07 by mouth Colle ge MG tablet 00:00: daily. of Medicin e lorazepam 2020-0 Yes 1mg Take 1 mg [facility] (ATIVAN) 1 1-07 by mouth Colle ge MG tablet 00:00: daily. of Medicin e lorazepam 2020-0 Yes 1mg Take 1 mg [facility] (ATIVAN) 1 1-07 by mouth Colle [facility] MG tablet 00:00: daily. of Medicin e lorazepam 2020-0 Yes 1mg Take 1 mg [facility] (ATIVAN) 1 1-07 by mouth Colle ge MG tablet 00:00: daily. of Medicin e lorazepam 2020-0 Yes 1mg Take 1 mg [facility] (ATIVAN) 1 1-07 by mouth Colle ge MG tablet 00:00: daily. of Medicin e lorazepam 2020-0 Yes 1mg Take 1 mg [facility] (ATIVAN) 1 1-07 by mouth Colle ge MG tablet 00:00: daily. of Medicin e lorazepam 2020-0 Yes 1mg Take 1 mg [facility] (ATIVAN) 1 1-07 by mouth Colle ge MG tablet 00:00: daily. of Medicin e lorazepam 0 Yes 1mg Take 1 mg [facility] (ATIVAN) 1 1-07 by mouth Colle [facility] MG tablet 00:00: daily. of Medicin e lorazepam Yes 1mg Take 1 mg [facility] (ATIVAN) 1 1-07 by mouth Colle ge MG tablet 00:00: daily. of Medicin e lorazepam 0 Yes 1mg Take 1 mg [facility] (ATIVAN) 1 1-07 by mouth Colle [facility] MG tablet 00:00: daily. of Medicin e lorazepam 0 Yes 1mg Take 1 mg [facility] (ATIVAN) 1 1-07 by mouth Colle [facility] MG tablet 00:00: daily. of Medicin e lorazepam Yes 1mg Take 1 mg [facility] (ATIVAN) 1 1-07 by mouth Colle ge MG tablet 00:00: daily. of Medicin e triamterene 2019-07 Yes 1{capsu Take 1 U nivers -hydrochlor 2-07 le} capsule by it y of othiazide 20:27: mouth. [place] 37.5-25 [facility] per capsule Branch b complex 2019-07 Yes 1{capsu Take 1 Uni vers vitamins 2-07 le} capsule by ity o f capsule 20:27: mouth. [address] Branch MAGNESIUM 2019-07 Yes Take by [facility] rs GLYCINATE 2-07 mouth. ity of ORAL 20:27: [address] Branch TURMERIC 2019-07 Yes Take by [facility] s ORAL 2-07 mouth. ity of 20:27: [address] Branch ascorbic 2019- Yes 500mg Take 500 Univ ers acid, 2-07 mg by ity of vitamin C, 20:27: mouth. [place] 500 mg Medical tablet Branch atorvastati 2019-07 Yes 20mg Take 20 mg Univers n 20 mg 2-07 by mouth. ity of tablet 20:27: [address] baclofen 10 2019-07 Yes 10mg Take 10 mg Univers mg tablet 2-07 by mouth. ity o f 20:27: [address] Biotin 2019-07 Yes Take by Univers 2,500 mcg 2-07 mouth. ity of Cap 20:27: [address] calcium 2019-07 Yes 1{tbl} Take 1 Univer s citrate-vit 2-07 tablet by ity of [place] D3 315 20:27: [place]. [place] mg-5 mcg Medical (200 unit) Branch per tablet polycarboph 2019-07 Yes 625mg Take 625 U nivers il 625 mg 2-07 mg by ity of tablet 20:27: mouth. [address] gabapentin 2019-07 Yes 300mg Take 300 Un landen 300 mg 2-07 mg by ity of capsule 20:27: mouth. [address] Branch hydrOXYzine 2019-07 Yes 50mg Take 50 mg Univers 25 mg 2-07 by mouth. ity of tablet 20:27: [address] lactobacill 2019-07 Yes 1{capsu Take 1 U nivers us 2-07 le} capsule by ity of rhamnosus, 20:27: mouth. [place] GG, 10 Medical billion Branch cell capsule lamoTRIgine 2019-07 Yes 50mg Take 50 mg Univers 25 mg 2-07 by mouth. ity of tablet 20:27: [address] Branch levothyroxi 2019-07 Yes 125ug Take 125 U nivers ne 125 mcg 2-07 mcg by ity of tablet 20:27: mouth. [address] multivitami 2019-07 Yes 1{capsu Take 1 U nivers n capsule 2-07 le} capsule by ity of 20:27: mouth. [address] omega-3s-dh 2019-07 Yes Take by Uni vers a-epa-fish 2-07 mouth. ity of oil 120 20:27: [place] mg-180 mg- Medical 60 mg-1,200 Branch mg CpDR potassium 2019-07 Yes 10meq Take 10 Univ ers chloride 10 2-07 mEq by ity of mEq CR 20:27: mouth. [place] capsule Medical Branch triamterene 2019-07 Yes 1{capsu Take 1 U nivers -hydrochlor 2-07 le} capsule by it y of othiazide 20:27: mouth. [place] 37.5-25 mg Medical per capsule Branch b complex 2019-07 Yes 1{capsu Take 1 Uni vers vitamins 2-07 le} capsule by ity o f capsule 20:27: mouth. [place] [address] Medical Branch MAGNESIUM 2019-07 Yes Take by Unive rs GLYCINATE 2-07 mouth. ity of ORAL 20:27: [address] Branch TURMERIC 2019-07 Yes Take by Univer s ORAL 2-07 mouth. ity of 20:27: [place] [address] Medical Branch ascorbic 2019-07 Yes 500mg Take 500 Univ ers acid, 2-07 mg by ity of vitamin C, 20:27: mouth. [place] 500 mg Medical tablet Branch atorvastati 2019-07 Yes 20mg Take 20 mg Univers n 20 mg 2-07 by mouth. ity of tablet 20:27: [address] Branch baclofen 10 2019-07 Yes 10mg Take 10 mg Univers mg tablet 2-07 by mouth. ity o f 20:27: [address] Biotin 2019-07 Yes Take by Univers 2,500 mcg 2-07 mouth. ity of Cap 20:27: [address] calcium 2019-07 Yes 1{tbl} Take 1 Univer s citrate-vit 2-07 tablet by ity of oliver D3 315 20:27: [facility]. [facility] Medical (200 unit) Branch per tablet polycarboph 2019-07 Yes 625mg Take 625 U nivers il 625 mg 2-07 mg by ity of tablet 20:27: mouth. [place] [address] Medical Branch gabapentin 2019-07 Yes 300mg Take 300 Un landen 300 mg 2-07 mg by ity of capsule 20:27: mouth. [address] Branch hydrOXYzine 2019-07 Yes 50mg Take 50 mg Univers 25 mg 2-07 by mouth. ity of tablet 20:27: [address] lactobacill 2019-07 Yes 1{capsu Take 1 U nivers us 2-07 le} capsule by ity of rhamnosus, 20:27: mouth. [place] GG, 10 Medical billion Branch cell capsule lamoTRIgine 2019-07 Yes 50mg Take 50 mg Univers 25 mg 2-07 by mouth. ity of tablet 20:27: [place] [address] Medical Branch levothyroxi 2019-07 Yes 125ug Take 125 U nivers ne 125 mcg 2-07 mcg by ity of tablet 20:27: mouth. [address] Branch multivitami 2019-07 Yes 1{capsu Take 1 U nivers n capsule 2-07 le} capsule by ity of 20:27: mouth. [address] Branch omega-3s-dh 2019-07 Yes Take by Uni vers a-epa-fish 2-07 mouth. ity of oil 120 20:27: [place] mg-180 mg- Medical 60 mg-1,200 Branch mg CpDR potassium 2019-07 Yes 10meq Take 10 Univ ers chloride 10 2-07 mEq by ity of mEq CR 20:27: mouth. [place] capsule Medical Branch triamterene 2019-07 Yes 1{capsu Take 1 U nivers -hydrochlor 2-07 le} capsule by it y of othiazide 20:27: mouth. [place] 37.5-25 mg Medical per capsule Branch b complex 2019-07 Yes 1{capsu Take 1 Uni vers vitamins 2-07 le} capsule by ity o f capsule 20:27: mouth. [place] [address] Medical Branch MAGNESIUM 2019-07 Yes Take by Unive rs GLYCINATE 2-07 mouth. ity of ORAL 20:27: [address] Branch TURMERIC 2019-07 Yes Take by Univer s ORAL 2-07 mouth. ity of 20:27: [place] [address] Medical Branch ascorbic 2019-07 Yes 500mg Take 500 Univ ers acid, 2-07 mg by ity of vitamin C, 20:27: mouth. [place] 500 mg Medical tablet Branch MAGNESIUM 2019-07 Yes Take by Unive rs GLYCINATE 2-07 mouth. ity of ORAL 20:27: [address] Branch atorvastati 2019-07 Yes 20mg Take 20 mg Univers n 20 mg 2-07 by mouth. ity of tablet 20:27: [address] Branch baclofen 10 2019-07 Yes 10mg Take 10 mg Univers mg tablet 2-07 by mouth. ity o f 20:27: [address] Branch Biotin 2019-07 Yes Take by Univers 2,500 mcg 2-07 mouth. ity of Cap 20:27: [place] [address] Medical Branch calcium 2019- Yes 1{tbl} Take 1 Univer s citrate-vit 2-07 tablet by ity of oliver D3 315 20:27: mouth. [place] mg-5 mcg Medical (200 unit) Branch per tablet polycarboph 2019-07 Yes 625mg Take 625 U nivers il 625 mg 2-07 mg by ity of tablet 20:27: mouth. [address] Branch gabapentin 2019-07 Yes 300mg Take 300 Un landen 300 mg 2-07 mg by ity of capsule 20:27: mouth. [address] Branch TURMERIC 2019-07 Yes Take by Univer s ORAL 2-07 mouth. ity of 20:27: [address] Branch hydrOXYzine 2019-07 Yes 50mg Take 50 mg Univers 25 mg 2-07 by mouth. ity of tablet 20:27: [address] lactobacill 2019-07 Yes 1{capsu Take 1 U nivers us 2-07 le} capsule by ity of rhamnosus, 20:27: mouth. [place] GG, 10 Medical billion Branch cell capsule lamoTRIgine 2019-07 Yes 50mg Take 50 mg Univers 25 mg 2-07 by mouth. ity of tablet 20:27: [address] Branch levothyroxi 2019-07 Yes 125ug Take 125 U nivers ne 125 mcg 2-07 mcg by ity of tablet 20:27: mouth. [address] Branch ascorbic 2019-07 Yes 500mg Take 500 Univ ers acid, 2-07 mg by ity of vitamin C, 20:27: mouth. [place] [address] [place] [address] tablet Branch multivitami 2019-07 Yes 1{capsu Take 1 U nivers n capsule 2-07 le} capsule by ity of 20:27: mouth. [address] Branch omega-3s-dh 2019- Yes Take by Uni vers a-epa-fish 2-07 mouth. ity of oil 120 20:27: [place] mg-180 mg- Medical 60 mg-1,200 Branch mg CpDR potassium 2019- Yes 10meq Take 10 Univ ers chloride 10 2-07 mEq by ity of mEq CR 20:27: mouth. [address] Branch atorvastati 2019-07 Yes 20mg Take 20 mg Univers n 20 mg 2-07 by mouth. ity of tablet 20:27: [address] triamterene 2019-07 Yes 1{capsu Take 1 U nivers -hydrochlor 2-07 le} capsule by it y of othiazide 20:27: mouth. [place] 37.5-25 mg Medical per capsule Branch b complex 2019-07 Yes 1{capsu Take 1 Uni vers vitamins 2-07 le} capsule by ity o f capsule 20:27: mouth. [address] MAGNESIUM 2019-07 Yes Take by Unive rs GLYCINATE 2-07 mouth. ity of ORAL 20:27: [address] TURMERIC 2019-07 Yes Take by Univer s ORAL 2-07 mouth. ity of 20:27: [address] ascorbic 2019-07 Yes 500mg Take 500 Univ ers acid, 2-07 mg by ity of vitamin C, 20:27: mouth. [place] 500 mg Medical [facility] Branch atorvastati 2019-07 Yes 20mg Take 20 mg Univers n 20 mg 2-07 by mouth. ity of tablet 20:27: [address] baclofen 10 2019-07 Yes 10mg Take 10 mg Univers mg tablet 2-07 by mouth. ity o f 20:27: [address] Biotin 2019-07 Yes Take by Univers 2,500 mcg 2-07 mouth. ity of Cap 20:27: [address] calcium 2019-07 Yes 1{tbl} Take 1 Univer s citrate-vit 2-07 tablet by ity of [place] D3 315 20:27: mouth. [place] mg-5 mcg Medical (200 unit) Branch per tablet polycarboph 2019-07 Yes 625mg Take 625 U nivers il 625 mg 2-07 mg by ity of tablet 20:27: mouth. [address] gabapentin 2019-07 Yes 300mg Take 300 Un landen 300 mg 2-07 mg by ity of capsule 20:27: mouth. [address] baclofen 10 2019-07 Yes 10mg Take 10 mg Univers mg tablet 2-07 by mouth. ity o f 20:27: [address] hydrOXYzine 2019-07 Yes 50mg Take 50 mg Univers 25 mg 2-07 by mouth. ity of tablet 20:27: [address] lactobacill 2019-07 Yes 1{capsu Take 1 U nivers us 2-07 le} capsule by ity of rhamnosus, 20:27: mouth. [place] GG, 10 Medical billion Branch cell capsule lamoTRIgine 2019-07 Yes 50mg Take 50 mg Univers 25 mg 2-07 by mouth. ity of tablet 20:27: [address] Branch levothyroxi 2019-07 Yes 125ug Take 125 U nivers ne 125 mcg 2-07 mcg by ity of tablet 20:27: mouth. [address] multivitami 2019-07 Yes 1{capsu Take 1 U nivers n capsule 2-07 le} capsule by ity of 20:27: mouth. [address] Branch omega-3s-dh 2019-07 Yes Take by Uni vers a-epa-fish 2-07 mouth. ity of oil 120 20:27: [place] mg-180 mg- Medical 60 mg-1,200 Branch mg CpDR potassium 2019-07 Yes 10meq Take 10 Univ ers chloride 10 2-07 mEq by ity of mEq CR 20:27: mouth. [address] Biotin 2019-07 Yes Take by Univers 2,500 mcg 2-07 mouth. ity of Cap 20:27: [address] triamterene 2019-07 Yes 1{capsu Take 1 U nivers -hydrochlor 2-07 le} capsule by it y of othiazide 20:27: mouth. [place] 37.5-25 mg Medical per capsule Branch b complex 2019-07 Yes 1{capsu Take 1 Uni vers vitamins 2-07 le} capsule by ity o f capsule 20:27: mouth. [address] calcium 2019-07 Yes 1{tbl} Take 1 Univer s citrate-vit 2-07 tablet by ity of oliver D3 315 20:27: mouth. [place] mg-5 mcg Medical (200 unit) Branch per tablet polycarboph 2019-07 Yes 625mg Take 625 U nivers il 625 mg 2-07 mg by ity of tablet 20:27: mouth. [address] Branch gabapentin 2019-07 Yes 300mg Take 300 Un landen 300 mg 2-07 mg by ity of capsule 20:27: mouth. [address] hydrOXYzine 2019-07 Yes 50mg Take 50 mg Univers 25 mg 2-07 by mouth. ity of tablet 20:27: [address] lactobacill 2019-07 Yes 1{capsu Take 1 U nivers us 2-07 le} capsule by ity of rhamnosus, 20:27: mouth. [place] GG, 10 Medical billion Branch cell capsule lamoTRIgine 2019-07 Yes 50mg Take 50 mg Univers 25 mg 2-07 by mouth. ity of tablet 20:27: [address] Branch levothyroxi 2019-07 Yes 125ug Take 125 U nivers ne 125 mcg 2-07 mcg by ity of tablet 20:27: mouth. [address] Branch multivitami 2019-07 Yes 1{capsu Take 1 U nivers n capsule 2-07 le} capsule by ity of 20:27: mouth. [address] Branch omega-3s-dh 2019-07 Yes Take by Uni vers a-epa-fish 2-07 mouth. ity of oil 120 20:27: [place] mg-180 mg- Medical 60 mg-1,200 [place] mg CpDR potassium 2019-07 Yes 10meq Take 10 Univ ers chloride 10 2-07 mEq by ity of mEq CR 20:27: mouth. [address] Branch triamterene 2019-07 Yes 1{capsu Take 1 U nivers -hydrochlor 2-07 le} capsule by it y of othiazide 20:27: mouth. [place] 37.5-25 mg Medical per capsule Branch b complex 2019-07 Yes 1{capsu Take 1 Uni vers vitamins 2-07 le} capsule by ity o f capsule 20:27: mouth. [address] Branch MAGNESIUM 2019-07 Yes Take by Unive rs GLYCINATE 2-07 mouth. ity of ORAL 20:27: [address] TURMERIC 2019-07 Yes [facility] ORAL 2-07 mouth. ity of 20:27: [address] Branch ascorbic 2019-07 Yes 500mg Take 500 Univ ers acid, 2-07 mg by ity of vitamin C, 20:27: mouth. [place] 500 mg Medical tablet Branch atorvastati 2019-07 Yes 20mg Take 20 mg Univers n 20 mg 2-07 by mouth. ity of tablet 20:27: [address] Branch baclofen 10 2019-07 Yes 10mg Take 10 mg Univers mg tablet 2-07 by mouth. ity o f 20:27: [address] Biotin 2019-07 Yes Take by Univers 2,500 mcg 2-07 mouth. ity of Cap 20:27: [address] calcium 2019-07 Yes 1{tbl} Take 1 Univer s citrate-vit 2-07 tablet by ity of [place] D3 315 20:27: [place] mg-5 mcg Medical (200 unit) Branch per tablet polycarboph 2019- Yes 625mg Take 625 U nivers [place] 625 mg 2-07 mg by ity of tablet 20:27: mouth. [address] Branch gabapentin 2019- Yes 300mg Take 300 Un landen 300 mg 2-07 mg by ity of capsule 20:27: mouth. [address] Branch hydrOXYzine 2019- Yes 50mg Take 50 mg Univers 25 mg 2-07 by mouth. ity of tablet 20:27: [address] lactobacill 2019-07 Yes 1{capsu Take 1 U nivers us 2-07 le} capsule by ity of rhamnosus, 20:27: mouth. [place] GG, 10 Medical billion Branch cell capsule lamoTRIgine 2019-07 Yes 50mg Take 50 mg Univers 25 mg 2-07 by mouth. ity of tablet 20:27: [address] Branch levothyroxi 2019- Yes 125ug Take 125 U nivers ne 125 mcg 2-07 mcg by ity of tablet 20:27: mouth. [address] Branch multivitami 2019- Yes 1{capsu Take 1 U nivers n capsule 2-07 le} capsule by ity of 20:27: mouth. [address] omega-3s-dh 2019-07 Yes Take by Uni vers a-epa-fish 2-07 mouth. ity of oil 120 20:27: [place] mg-180 mg- [address] [place] [address] 60 mg-1,200 Branch mg CpDR potassium 2019-07 Yes 10meq Take 10 Univ ers chloride 10 2-07 mEq by ity of mEq CR 20:27: mouth. [place] capsule Medical Branch Turmeric 2019-07 Yes Take by [facility] 500 MG CAPS 2-07 mouth. Colleg e 00:00: of 00 Medicin e Turmeric 2019- Yes Take by [facility] 500 MG CAPS 2-07 mouth. Colleg e 00:00: of 00 Medicin e Turmeric 2019- Yes Take by [facility] 500 MG CAPS 2-07 mouth. Colleg e 00:00: of 00 Medicin e Turmeric 2019- Yes Take by [facility] 500 MG CAPS 2-07 mouth. Colleg e 00:00: 00 Medicin e Turmeric 2020-1 Yes Take by [facility] 500 MG CAPS 2-07 mouth. Colleg e 00:00: 00 Medicin e Turmeric 2020- Yes Take by [facility] 500 MG CAPS 2-07 mouth. Colleg e 00:00: 00 Medicin e gabapentin 2020- Yes TK 1 C PO Un landen 100 mg 2-04 IN THE ity of capsule 00:00: MORNING 00 AND AT [facility] gabapentin 2020- Yes TK 1 C PO Un landen 100 mg 2-04 IN THE ity of capsule 00:00: AND AT [facility] gabapentin 2020- Yes TK 1 C PO Un landen 100 mg 2-04 IN THE ity of capsule 00:00: AND AT [facility] gabapentin 2020- Yes TK 1 C PO Un landen 100 mg 2-04 IN THE ity of capsule 00:00: AND AT [facility] gabapentin 2020- Yes TK 1 C PO Un landen 100 mg 2-04 IN THE ity of capsule 00:00: AND AT [facility] gabapentin 2020- Yes TK 1 C PO Un landen 100 mg 2-04 IN THE ity of capsule 00:00: AND AT [facility] gabapentin 2020- Yes = 1 cap, Mem oria 300 MG Oral 2-03 PO, l Capsule 20:46: Bedtime, # Herm beto 00 30 cap, 6 Refill(s), Pharmacy: [facility] #[id number], 157.48, cm, 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, Height, 62.727, kg, 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, 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 baclofen 10 2019- Yes = 1 tab, Me moria mg oral 2-03 PO, l tablet 20:46: Bedtime, # Bing nn 00 30 tab, 4 Refill(s), Pharmacy: [facility] #[id number], 157.48, cm, 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, 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, 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, kg, 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, 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 gabapentin 2019-1 Yes = 1 cap, Mem oria 300 MG Oral 2-03 PO, l Capsule 20:46: Bedtime, # Herm beto 00 30 cap, 6 Refill(s), [id number], 157.48, cm, 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, 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, 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, kg, 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, 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 baclofen 10 2019-07 Yes = 1 tab, Me moria mg oral 2-03 PO, l tablet 20:46: Bedtime, # Bing nn 00 30 tab, 4 Refill(s), [id number], 157.48, cm, 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, 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, 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, kg, 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, 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 gabapentin 2019-07 Yes = 1 cap, Mem oria 300 MG Oral 2-03 PO, l Capsule 20:46: Bedtime, # Herm beto 00 30 cap, 6 Refill(s), [id number], 157.48, cm, 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, 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, 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, kg, 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, 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 baclofen 10 2019-07 Yes = 1 tab, Me moria mg oral 2-03 PO, l tablet 20:46: Bedtime, # Bing nn 00 30 tab, 4 Refill(s), [id number], 157.48, cm, 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, 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, 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, kg, 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, 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 gabapentin 2019-07 Yes = 1 cap, Mem oria 300 MG Oral 2-03 PO, l Capsule 20:46: Bedtime, # Herm beto 00 30 cap, 6 Refill(s), [id number], 157.48, cm, 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, 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, 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, kg, 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, 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 baclofen 10 2019-07 Yes = 1 tab, Me moria mg oral 2-03 PO, l tablet 20:46: Bedtime, # Bing nn 00 30 tab, 4 Refill(s), [id number], 157.48, cm, 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, 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, 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, kg, 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, 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 gabapentin 2019-07 Yes = 1 cap, Mem oria 300 MG Oral 2-03 PO, l Capsule 20:46: Bedtime, # Herm beto 00 30 cap, 6 Refill(s), [id number], 157.48, cm, 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, 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, 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, kg, 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 spironolact 2019- Yes TK 1 T PO U nivers one 25 mg 2-03 BID ity of tablet 00:00: [place] [facility] spironolact 2019- Yes TK 1 T PO U nivers one 25 mg 2-03 BID ity of tablet 00:00: [address] spironolact 2019- Yes TK 1 T PO U nivers one 25 mg 2-03 BID ity of tablet 00:00: [address] baclofen 10 2019-07 Yes TK 1 T PO U nivers mg tablet 1-24 BID ity of 00:00: [address] baclofen 10 2019-07 Yes TK 1 T PO U nivers mg tablet 1-24 BID ity of 00:00: [place] [facility] baclofen 10 2019-07 Yes TK 1 T PO U nivers mg tablet 1-24 BID ity of 00:00: [place] [facility] baclofen 10 2019-07 Yes TK 1 T PO U nivers mg tablet 1-24 BID ity of 00:00: [place] [facility] baclofen 10 2019-07 Yes TK 1 T PO U nivers mg tablet 1-24 BID ity of 00:00: [place] [facility] baclofen 10 2019-07 Yes TK 1 T PO U nivers mg tablet 1-24 BID ity of 00:00: [place] [facility] famotidine 2019-07 Yes TK 1 T PO Un landen 40 mg 1-23 D HS ity of tablet 00:00: [place] [facility] famotidine 2019-07 Yes TK 1 T PO Un landen 40 mg 1-23 D HS ity of tablet 00:00: [place] [facility] famotidine 2019-07 Yes TK 1 T PO Un landen 40 mg 1-23 D HS ity of tablet 00:00: [place] [facility] famotidine 2019-07 Yes TK 1 T PO Un landen 40 mg 1-23 D HS ity of tablet 00:00: [address] famotidine 2019-07 Yes TK 1 T PO Un lnaden 40 mg 1-23 D HS ity of tablet 00:00: [address] famotidine 2019-07 Yes TK 1 T PO Un landen 40 mg 1-23 D HS ity of tablet 00:00: [address] levothyroxi 2019-07 Yes 125ug Take 125 B aylor ne 1-19 mcg by [place] (SYNTHROID) 14:29: mouth of 125 MCG 07 daily. Medicin tablet e gabapentin 2019-07 Yes 500mg Take 500 Ba ylor (NEURONTIN) 1-19 mg by [place] 300 MG 14:29: mouth of capsule 07 daily. Medicin e atorvastati 2019-07 Yes 20mg Take 20 mg [facility] n (LIPITOR) 1-19 by mouth Shanel ege 20 MG 14:29: daily. of tablet 07 Medicin e baclofen 2019-07 Yes 10mg Take 10 mg [facility] (LIORESAL) -19 by mouth Colle ge 10 MG 14:29: two times of tablet 07 daily. Medicin e Multiple 2019-07 Yes Take by [facility] Vitamins-Mi 08-07 [facility] nerals 14:29: daily. of (MULTIVITAM 07 Medicin IN ADULT e OR) B Complex 2019-07 Yes Take by [facility] r Vitamins (B 08-07 mouth [place] COMPLEX 1 14:29: daily. of OR) 07 Medicin e Calcium 2019-07 Yes Take by [facility] Citrate-Vit 08-07 mouth two Col lege oliver D 14:29: times of (CALCIUM 07 daily. Medicin CITRATE + D e OR) [place]-3 2019-07 Yes Take by [facility] Fatty Acids 08-07 [facility] (FISH OIL) 14:29: daily. of 1200 MG 07 Medicin CAPS e Lactobacill 2019-07 Yes Take by [facility] us 08-07 [facility] (PROBIOTIC 14:29: daily. of ACIDOPHILUS 07 Medicin OR) e BIOTIN 5000 2019-07 Yes Take by [facility] OR 08-07 [facility] 14:29: daily. of 07 Medicin e L-THEANINE 2019-07 Yes 200mg Take 200 Ba ylor OR 1-19 mg by [place] 14:29: mouth of 07 daily. Medicin e Ascorbic 2019-07 Yes Take by [facility] Acid 08-07 [facility] (VITAMIN C) 14:29: daily. of 500 MG CAPS Medicin e Magnesium 2019-07 Yes Take by [facility] 400 MG TABS 08-07 mouth. Colleg e 14:29: of 07 Medicin e Lidocaine 2019-07 Yes Apply [facility] 0.5 % GEL 08-07 topically. Shanel ege 14:29: of 07 Medicin e levothyroxi 2019-07 Yes 125ug Take 125 B aylor ne 1-19 mcg by [place] (SYNTHROID) 14:29: mouth of 125 MCG 07 daily. Medicin tablet e gabapentin 2019-07 Yes 500mg Take 500 Ba ylor (NEURONTIN) 1-19 mg by [place] 300 MG 14:29: mouth of capsule 07 daily. Medicin e atorvastati 2019-07 Yes 20mg Take 20 mg [facility] n (LIPITOR) -19 by mouth Shanel ege 20 MG 14:29: daily. of tablet 07 Medicin e baclofen 2019-07 Yes 10mg Take 10 mg [facility] (LIORESAL) 08-07 by mouth Colle ge 10 MG 14:29: two times of tablet 07 daily. Medicin e Multiple 2019-07 Yes Take by [facility] Vitamins-Mi 08-07 [facility] nerals 14:29: daily. of (MULTIVITAM 07 Medicin IN ADULT e OR) B Complex 2019-07 Yes Take by [facility] Vitamins (B 08-07 mouth [place] COMPLEX 1 14:29: daily. of OR) 07 Medicin e Calcium 2019-07 Yes Take by [facility] Citrate-Vit 08-07 [facility] two Col lege oliver D 14:29: times of (CALCIUM 07 daily. Medicin CITRATE + D e OR) [place]-3 2019-07 Yes Take by [facility] Fatty Acids 08-07 [facility] (FISH OIL) 14:29: daily. of 1200 MG 07 Medicin CAPS e Lactobacill 2019-07 Yes Take by [facility] us 08-07 [facility] (PROBIOTIC 14:29: daily. of ACIDOPHILUS 07 Medicin OR) e BIOTIN 5000 2019-07 Yes Take by [facility] OR 08-07 [facility] 14:29: daily. of 07 Medicin e L-THEANINE 2019-07 Yes 200mg Take 200 Ba ylor OR -19 mg by [place] 14:29: mouth of 07 daily. Medicin e Ascorbic 2019-07 Yes Take by [facility] Acid 08-07 [facility] (VITAMIN C) 14:29: daily. of 500 MG CAPS 07 Medicin e Magnesium 2019-07 Yes Take by [facility] 400 MG TABS 08-07 mouth. Colleg e 14:29: of 07 Medicin e Lidocaine 2019-07 Yes Apply [facility] 0.5 % GEL 08-07 topically. Shanel ege 14:29: of 07 Medicin e Turmeric 2019-07 2020- No Take by [facility] Curcumin -06-07 mouth. College 500 MG CAPS 14:29: 00:00 of 06 :00 Medicin e Calcium 2019-07 2020- No Take by [facility] Polycarboph -19 06-07 mouth 3 Shanel ege il 14:26: 00:00 times of (FIBER-CAPS 48 :00 daily. Medici n OR) e Calcium 2019- 2020- No 625mg Take 625 [facility] or Polycarboph -19 -19 mg by [place] (FIBER) 14:26: 00:00 mouth. of 625 MG TABS 38 :00 Medicin e ascorbic 2019- 2020- No 500mg Take 500 [facility] acid 500 MG -19 11-19 mg [...] 2020- No [facility] rilocaine 1-14 11-19 College (EMHI) 00:00: 00:00 of 2.5-2.5 % 00 :00 Medicin cream e risperiDONE 2019-07 Yes TK 1 T PO U nivers 0.25 mg 1-11 BID ity of tablet 00:00: [place] [facility] LORazepam 2019-07 Yes TK 1 T PO Uni vers 0.5 mg 1-11 TID PRN ity of tablet 00:00: FOR ANXIETY Medical Branch risperiDONE 2019-07 Yes TK 1 T PO U nivers 0.25 mg 1-11 BID ity of tablet 00:00: [place] [facility] LORazepam 2019-07 Yes TK 1 T PO Uni vers 0.5 mg 1-11 TID PRN ity of tablet 00:00: FOR [place] ANXIETY Medical Branch risperiDONE 2019-07 Yes TK 1 T PO U nivers 0.25 mg 1-11 BID ity of tablet 00:00: [place] [facility] LORazepam 2019-07 Yes TK 1 T PO Uni vers 0.5 mg 1-11 TID PRN ity of tablet 00:00: FOR [place] ANXIETY Medical Branch risperiDONE 2019-07 Yes TK 1 T PO U nivers 0.25 mg 1-11 BID ity of tablet 00:00: [place] [facility] LORazepam 2019-07 Yes TK 1 T PO Uni vers 0.5 mg 1-11 TID PRN ity of tablet 00:00: FOR [place] ANXIETY Medical Branch risperiDONE 2019-07 Yes TK 1 T PO U nivers 0.25 mg 1-11 BID ity of tablet 00:00: [place] [facility] LORazepam 2019-07 Yes TK 1 T PO Uni vers 0.5 mg 1-11 TID PRN ity of tablet 00:00: FOR [place] ANXIETY Medical Branch risperiDONE 2019-07 Yes TK 1 T PO U nivers 0.25 mg 1-11 BID ity of tablet 00:00: [place] [facility] LORazepam 2019-07 Yes TK 1 T PO Uni vers 0.5 mg 1-11 TID PRN ity of tablet 00:00: FOR [place] ANXIETY Medical Branch atorvastati 2019-07 Yes TK 1 T PO U nivers n 20 mg 1-03 D HS ity of tablet 00:00: [place] [facility] atorvastati 2019-07 Yes TK 1 T PO U nivers n 20 mg 1-03 D HS ity of tablet 00:00: [place] [facility] atorvastati 2019-07 Yes TK 1 T PO U nivers n 20 mg 1-03 D HS ity of tablet 00:00: [place] [facility] atorvastati 2019-07 Yes TK 1 T PO U nivers n 20 mg 1-03 D HS ity of tablet 00:00: [place] [facility] atorvastati 2019-07 Yes TK 1 T PO U nivers n 20 mg 1-03 D HS ity of tablet 00:00: [place] [facility] atorvastati 2019-07 Yes TK 1 T PO U nivers n 20 mg 1-03 D HS ity of tablet 00:00: [place] [address] Medical Branch ondansetron 2019-07 Yes [id number] 4mg Take 1 Tab [facility] (ZOFRAN) 4 1-02 by mouth Colle ge MG tablet 00:00: every 8 of 00 hours as Medicin needed for e Nausea. nitrofurant 2019-07 Yes TK ONE C Ba ylor oin 1-02 PO BID College (MACRODANTI 00:00: of N) 100 MG 00 Medicin capsule e ondansetron 2019-07 Yes [id number] 4mg Take 1 Tab [facility] (ZOFRAN) 4 1-02 by mouth Colle ge MG tablet 00:00: every 8 of 00 hours as Medicin needed for e Nausea. ondansetron 2019-07 Yes [id number] 4mg Take 1 Tab [facility] (ZOFRAN) 4 1-02 by mouth Colle ge MG tablet 00:00: every 8 of 00 hours as Medicin needed for e Nausea. ondansetron 2019-07 Yes [id number] 4mg Take 1 Tab [facility] (ZOFRAN) 4 1-02 by mouth Colle ge MG tablet 00:00: every 8 of 00 hours as Medicin needed for e Nausea. nitrofurant 2019-07 Yes TK ONE C Un landen oin 100 mg 1-02 PO BID ity of capsule 00:00: [place] [facility] ondansetron 2019-07 Yes TK 1 T PO U nivers 4 mg tablet 1-02 Q 8 H PRF ity of 00:00: NAUSEA [facility] nitrofurant 2019-07 Yes TK ONE C Un landen oin 100 mg 1-02 PO BID ity of capsule 00:00: [place] [facility] ondansetron 2019-07 Yes TK 1 T PO U nivers 4 mg tablet 1-02 Q 8 H PRF ity of 00:00: NAUSEA [facility] nitrofurant 2019-07 Yes TK ONE C Un landen oin 100 mg 1-02 PO BID ity of capsule 00:00: [place] [facility] ondansetron 2019-07 Yes TK 1 T PO U nivers 4 mg tablet 1-02 Q 8 H PRF ity of 00:00: NAUSEA [facility] nitrofurant 2019-07 Yes TK ONE C Un landen oin 100 mg 1-02 PO BID ity of capsule 00:00: [place] [facility] ondansetron 2019-07 Yes TK 1 T PO U nivers 4 mg tablet 1-02 Q 8 H PRF ity of 00:00: NAUSEA [facility] nitrofurant 2019-07 Yes TK ONE C Un landen oin 100 mg 1-02 PO BID ity of capsule 00:00: [place] [facility] ondansetron 2019-07 Yes TK 1 T PO U nivers 4 mg tablet 1-02 Q 8 H PRF ity of 00:00: NAUSEA 00 Medical Branch nitrofurant 2019-07 Yes TK ONE C Un landen oin 100 mg 02 PO BID ity of capsule 00:00: 00 Medical Branch ondansetron 2019-07 Yes TK 1 T PO U nivers 4 mg tablet -02 Q 8 H PRF ity of 00:00: NAUSEA 00 Medical Branch ondansetron 2019-07- No [id number] 4mg Take 1 Tab [facility] (ZOFRAN) 4 [...] 00:00: QD FOR 7 DAYS. Medical Branch KLOR-CON 20 2019-07 Yes TK 1 Univer s mEq packet 0-30 PACKET PO ity of 00:00: QD FOR 7 DAYS. Medical Branch KLOR-CON 20 2019-07 Yes TK 1 Univer s mEq packet 0-30 PACKET PO ity of 00:00: QD FOR 7 DAYS. Medical Branch KLOR-CON 20 2019-07 Yes TK 1 Univer s mEq packet 0-30 PACKET PO ity of 00:00: QD FOR 7 00 DAYS. Medical Branch KLOR-CON 20 2019-07 Yes TK 1 Univer s mEq packet 0-30 PACKET PO ity of 00:00: QD FOR 7 00 DAYS. Medical Branch KLOR-CON 20 2019-07 Yes TK 1 Univer s mEq packet 0-30 PACKET PO ity of 00:00: QD FOR 7 00 DAYS. Medical Branch triamterene 2019-07- No 1{capsu Take 1 Cap [facility] -hydrochlor 0-27 10-27 le} by mouth Col lege othiazide 19:49: 00:00 every of (DYAZIDE) 07 :00 morning. Medici n 37.5-25 MG e per capsule potassium 2019-07- No 10meq Take 10 [facility] chloride 0-27 10-27 mEq by [place] (MICRO-K) 19:49: 00:00 mouth of 10 MEQ 07 :00 daily. Medicin capsule e lamoTRIgine 2019-07 2020- No 50mg Take 50 mg [facility] 50 MG TBDP 0-27 10-27 by mouth Shanel ege 19:49: 00:00 two times of 07 :00 daily. Medicin e ciprofloxac 2019-07 Yes TK 1 T PO U nivers in HCl 250 0-25 BID ity of mg tablet 00:00: [place] [facility] ciprofloxac 2019-07 Yes TK 1 T PO U nivers in HCl 250 0-25 BID ity of mg tablet 00:00: [address] ciprofloxac 2019-07 Yes TK 1 T PO U nivers in HCl 250 0-25 BID ity of mg tablet 00:00: [place] [facility] ciprofloxac 2019-07 Yes TK 1 T PO U nivers in HCl 250 0-25 BID ity of mg tablet 00:00: [place] [facility] ciprofloxac 2019-07 Yes TK 1 T PO U nivers in HCl 250 0-25 BID ity of mg tablet 00:00: [place] [facility] ciprofloxac 2019-07 Yes TK 1 T PO U nivers in HCl 250 0-25 BID ity of mg tablet 00:00: [address] losartan 25 2019-07 Yes 25 mg [...] tab, PO, l tablet 19:15: Daily, 0 [place] 00 Refill(s) Risperidone 2019-07 Yes 0.25 mg [...] 1 Tab [facility] one 0-21 by mouth [place] (ALDACTONE) 00:00: daily. of 25 MG 00 Medicin tablet e spironolact 2020-1 Yes 1{tbl} Take 1 Tab [facility] one 0-21 by mouth [place] (ALDACTONE) 00:00: daily. of 25 MG 00 Medicin tablet e spironolact 2020-1 Yes 1{tbl} Take 1 Ba ylor one 0-21 Tablet by [place] (ALDACTONE) 00:00: mouth. 2 of 25 MG [...] s mg tablet 0-14 ity of 00:00: [address] LORazepam 1 2020- Yes Univer s mg tablet 0-14 ity of 00:00: [address] Branch LORazepam 1 2020- Yes Univer s mg tablet 0-14 ity of 00:00: [place] [facility] LORazepam 1 2019-07 Yes Univer s mg tablet 0-14 ity of 00:00: [place] [facility] LORazepam 1 2019-07 Yes Univer s mg tablet 0-14 ity of 00:00: [place] [facility] LORazepam 1 2019-07 Yes Univer s mg tablet 0-14 ity of 00:00: [place] [facility] lorazepam 2019-07 2020- No [facility] (ATIVAN) 1 0-14 11-19 College MG tablet 00:00: 00:00 of 00 :00 Medicin e levothyroxi 2019-07 Yes TK 1 T PO U nivers ne 112 mcg 0-11 D ity of tablet 00:00: [place] [facility] levothyroxi 2019-07 Yes TK 1 T PO U nivers ne 112 mcg 0-11 D ity of tablet 00:00: [place] [facility] levothyroxi 2019-07 Yes TK 1 T PO U nivers ne 112 mcg 0-11 D ity of tablet 00:00: [place] [facility] levothyroxi 2019-07 Yes TK 1 T PO U nivers ne 112 mcg 0-11 D ity of tablet 00:00: [place] [facility] levothyroxi 2019-07 Yes TK 1 T PO U nivers ne 112 mcg 0-11 D ity of tablet 00:00: [place] [facility] levothyroxi 2019-07 Yes TK 1 T PO U nivers ne 112 mcg 0-11 D ity of tablet 00:00: [place] [facility] acetaminoph 2019-07 2020- No 1{tbl} Take 1 Tab [facility] en-codeine 0-09 10-09 by mouth Shanel ege (TYLENOL 19:38: 00:00 every 8 of #3) 300-30 58 :00 hours. Medicin MG per e tablet triamterene 2019-07 Yes 1{capsu Take 1 Cap [facility] -hydrochlor 0-09 le} by mouth Shanel ege othiazide 19:38: every of (DYAZIDE) 49 morning. Medici n 37.5-25 MG e per capsule potassium 2019-07 Yes 10meq Take 10 [facility] or chloride 0-09 mEq by [place] (MICRO-K) 19:38: mouth of 10 MEQ 49 daily. Medicin capsule e levothyroxi 2019-07 Yes 125ug Take 125 B aylor ne 0-09 mcg by [facility] (SYNTHROID) 19:38: mouth of 125 MCG 49 daily. Medicin tablet e gabapentin 2019-07 Yes 500mg Take 500 [facility] (NEURONTIN) 0-09 mg by [place] 300 MG 19:38: mouth of capsule 49 daily. Medicin e atorvastati 2019-07 Yes 20mg Take 20 mg [facility] n (LIPITOR) 0-09 by mouth Shanel ege 20 MG 19:38: daily. of tablet 49 Medicin e lamoTRIgine 2019-07 Yes 50mg Take 50 mg [facility] 50 MG TBDP 0-09 by mouth Colle ge 19:38: two times of 49 daily. Medicin e baclofen 2019-07 Yes 10mg Take 10 mg [facility] (LIORESAL) 0-09 by mouth Colle ge 10 MG 19:38: two times of tablet 49 daily. Medicin e Multiple 2019-07 Yes Take by [facility] Vitamins-Mi 0-09 mouth [place] nerals 19:38: daily. of (MULTIVITAM 49 Medicin IN ADULT e OR) B Complex 2019-07 Yes Take by [facility] Vitamins (B 0-09 mouth [place] COMPLEX 1 19:38: daily. of OR) 49 Medicin e Calcium 2019-07 Yes Take by [facility] Citrate-Vit 0-09 mouth two Col lege oliver D 19:38: times of (CALCIUM 49 daily. Medicin CITRATE + D e OR) [place]-3 2019-07 Yes Take by [facility] Fatty Acids 0-09 mouth [place] (FISH OIL) 19:38: daily. of 1200 MG 49 Medicin CAPS e Lactobacill 2019-07 Yes Take by [facility] us 0-09 mouth [place] (PROBIOTIC 19:38: daily. of ACIDOPHILUS 49 Medicin OR) e Calcium 2019-07 Yes Take by [facility] Polycarboph 0-09 mouth 3 Colle ge il 19:38: times of (FIBER-CAPS 49 daily. Medici n OR) e BIOTIN 5000 2019-07 Yes Take by [facility] OR 0-09 mouth [place] 19:38: daily. of 49 Medicin e L-THEANINE 2019-07 Yes 200mg Take 200 Ba ylor OR 0-09 mg by College 19:38: mouth of 49 daily. Medicin e Ascorbic 2019-07 Yes Take by [facility] Acid 0-09 mouth [facility] (VITAMIN C) 19:38: daily. of 500 MG CAPS 49 Medicin e Turmeric 2019-07 Yes Take by [facility] Curcumin 0-09 mouth. [place] 500 MG CAPS 19:38: of 49 Medicin e Magnesium 2019-07 Yes Take by [facility] r 400 MG TABS 0-09 mouth. Colleg e 19:38: of 49 Medicin e Lidocaine 2019-07 Yes Apply [facility] 0.5 % GEL 0-09 topically. Shanel ege 19:38: of 49 Medicin e levothyroxi 2019-07 Yes 125ug Take 125 B aylor ne 0-09 mcg by [place] (SYNTHROID) 19:38: mouth of 125 MCG 49 daily. Medicin tablet e gabapentin 2019-07 Yes 500mg Take 500 [facility] (NEURONTIN) 0-09 mg by [place] 300 MG 19:38: mouth of capsule 49 daily. Medicin e atorvastati 2019-07 Yes 20mg Take 20 mg [facility]el[facility] n (LIPITOR) 0-09 by mouth Shanel ege 20 MG 19:38: daily. of tablet 49 Medicin e baclofen 2019-07 Yes 10mg Take 10 mg [facility] (LIORESAL) 0-09 by mouth [facility]le [facility] 10 MG 19:38: two times of tablet 49 daily. Medicin e Multiple 2019-07 Yes Take by [facility] Vitamins-Mi 0-09 mouth [place] nerals 19:38: daily. of (MULTIVITAM 49 Medicin IN ADULT e OR) B Complex 2019-07 Yes Take by [facility] Vitamins (B 0-09 mouth [place] COMPLEX 1 19:38: daily. of OR) 49 Medicin e Calcium 2019-07 Yes Take by [facility] Citrate-Vit 0-09 mouth two [facility] oliver D 19:38: times of (CALCIUM 49 daily. Medicin CITRATE + D e OR) [place]-3 2019-07 Yes Take by [facility] Fatty Acids 0-09 mouth [place] (FISH OIL) 19:38: daily. of 1200 MG 49 Medicin CAPS e Lactobacill 2019-07 Yes Take by [facility] us 0-09 mouth [place] (PROBIOTIC 19:38: daily. of ACIDOPHILUS 49 Medicin OR) e Calcium 2019-07 Yes Take by [facility] Polycarboph 0-09 mouth 3 Colle ge il 19:38: times of (FIBER-CAPS 49 daily. Medici n OR) e BIOTIN 5000 2019-07 Yes Take by [facility] OR 0-09 mouth [place] 19:38: daily. of 49 Medicin e L-THEANINE 2019-07 Yes 200mg Take 200 [facility] OR 0-09 mg by [place] 19:38: mouth of 49 daily. Medicin e Ascorbic 2019-07 Yes Take by [facility] Acid 0-09 mouth [place] (VITAMIN C) 19:38: daily. of 500 MG CAPS 49 Medicin e Turmeric 2019-07 Yes Take by [facility] Curcumin 0-09 mouth. [place] 500 MG CAPS 19:38: of 49 Medicin e Magnesium 2019-07 Yes Take by [facility] r 400 MG TABS 0-09 mouth. Colleg e 19:38: of 49 Medicin e Lidocaine 2019-07 Yes Apply [facility] 0.5 % GEL 0-09 topically. Shanel ege 19:38: of 49 Medicin e potassium 2019-07 Yes 20meq Take 1 Tab [facility] chloride SA 0-09 by mouth Shanel maureen (K-DUR, 00:00: two times of KLOR-CON 00 daily. Medicin M20) 20 MEQ e tablet gabapentin 2019-07 Yes TK 1 C PO Un [place] 300 mg 0-06 HS ity of capsule 00:00: [address] gabapentin 2019-07 Yes TK 1 C PO Un [place] 300 mg 0-06 HS ity of capsule 00:00: [address] gabapentin 2019- Yes TK 1 C PO [facility] [place] 300 mg 0-06 HS ity of capsule 00:00: [address] gabapentin 2019- Yes TK 1 C PO [facility] [place] 300 mg 0-06 HS ity of capsule 00:00: [address] gabapentin 2020- Yes TK 1 C PO [facility] [place] 300 mg 0-06 HS ity of capsule 00:00: [address] gabapentin 2019- Yes TK 1 C PO [facility] [place] 300 mg 0-06 HS ity of capsule 00:00: [address] losartan 2020- Yes [facility] (COZAAR) 25 0-05 College MG tablet 00:00: of 00 Medicin e losartan 2019-07 Yes [facility] (COZAAR) 25 0-05 College MG tablet 00:00: of 00 Medicin e hydrOXYzine 2019-07 Yes Univer s 25 mg 0-05 ity of capsule 00:00: [address] lamoTRIgine 2019-07 Yes Univer s 25 mg 0-05 ity of tablet 00:00: [facility] losartan 25 2019- Yes Univer s mg tablet 0-05 ity of 00:00: [facility] hydrOXYzine 2019-07 Yes Univer s 25 mg 0-05 ity of capsule 00:00: [facility] lamoTRIgine 2019-07 Yes Univer s 25 mg 0-05 ity of tablet 00:00: [facility] losartan 25 2019-07 Yes Univer s mg tablet 0-05 ity of 00:00: [facility] hydrOXYzine 2019-07 Yes Univer s 25 mg 0-05 ity of capsule 00:00: [facility] lamoTRIgine 2019-07 Yes Univer s 25 mg 0-05 ity of tablet 00:00: [facility] losartan 25 2019-07 Yes Univer s mg tablet 0-05 ity of 00:00: [place] [id number] [facility] hydrOXYzine 2019-07 Yes Univer s 25 mg 0-05 ity of capsule 00:00: [facility] lamoTRIgine 2019-07 Yes Univer s 25 mg 0-05 ity of tablet 00:00: [place] [facility] losartan 25 2019-07 Yes Univer s mg tablet 0-05 ity of 00:00: [place] [facility] hydrOXYzine 2019-07 Yes Univer s 25 mg 0-05 ity of capsule 00:00: [place] [facility] lamoTRIgine 2019-07 Yes Univer s 25 mg 0-05 ity of tablet 00:00: [place] [facility] losartan 25 2019-07 Yes Univer s mg tablet 0-05 ity of 00:00: [place] [facility] hydrOXYzine 2019-07 Yes Univer s 25 mg 0-05 ity of capsule 00:00: [place] [facility] lamoTRIgine 2019-07 Yes Univer s 25 mg 0-05 ity of tablet 00:00: [place] [facility] losartan 25 2019-07 Yes Univer s mg tablet 0-05 ity of 00:00: [place] [facility] losartan 2019-2020- No [facility] (COZAAR) 25 0-05 01-08 College MG [...] capsule Branch losartan 0 2020- No DAILY [facility] (COZAAR) 25 9-11 11-19 College MG tablet 00:00: 00:00 of 00 :00 Medicin e risperdone Yes 1{tbl} Take 1 Tab [facility] (RISPERDAL) 9 by mouth Shanel ege 0.25 MG 00:00: two times of tablet 00 daily. Medicin e risperdone Yes 1{tbl} Take 1 Tab [facility] (RISPERDAL) 9- by mouth Shanel ege 0.25 MG 00:00: two times of tablet 00 daily. Medicin e risperdone 2020- No 1{tbl} Take 1 Tab [facility] (RISPERDAL) 9-07 01-08 by mouth [facility] 0.25 MG 00:00: 00:00 two times of tablet 00 :00 daily. Medicin e triamterene Yes 1{capsu Take 1 Cap [facility] -hydrochlor 8-11 le} by mouth Shanel ege othiazide 16:27: every of (DYAZIDE) 09 morning. Medici n 37.5-25 MG e per capsule potassium Yes 10meq Take 10 [facility] chloride 8- mEq by [place] (MICRO-K) 16:27: mouth of 10 MEQ 09 daily. Medicin capsule e levothyroxi 2020-0 Yes 125ug Take 125 [facility] ne 8-11 mcg by [place] (SYNTHROID) 16:27: mouth of 125 MCG 09 daily. Medicin tablet e gabapentin 2020-0 Yes 500mg Take 500 [facility] (NEURONTIN) 8-11 mg by [place] 300 MG 16:27: mouth of capsule 09 daily. Medicin e lamoTRIgine 2020-0 Yes 50mg Take 50 mg [facility] 50 MG TBDP - by mouth Colle ge 16:27: two times of 09 daily. Medicin e baclofen 2020-0 Yes 10mg Take 10 mg [facility] (LIORESAL) 02-27 by mouth [facility] 10 MG 16:27: two times of tablet 09 daily. Medicin e Multiple 2020-0 Yes Take by [facility] Vitamins-Mi - mouth [place] nerals 16:27: daily. of (MULTIVITAM 09 Medicin IN ADULT e OR) B Complex 2020-0 Yes Take by [facility] Vitamins (B 02-27 mouth [place] COMPLEX 1 16:27: daily. of OR) 09 Medicin e Calcium 2020-0 Yes Take by [facility] Citrate-Vit 02-27 mouth two [facility] oliver D 16:27: times of (CALCIUM 09 daily. Medicin CITRATE + D e OR) [place]-3 2020-0 Yes Take by [facility] Fatty Acids 02-27 [facility] (FISH OIL) 16:27: daily. of 1200 MG 09 Medicin CAPS e Lactobacill 2020-0 Yes Take by [facility] us 02-27 mouth [place] (PROBIOTIC 16:27: daily. of ACIDOPHILUS 09 Medicin OR) e Calcium 2020-0 Yes Take by [facility] Polycarboph 02-27 mouth 3 Colle ge il 16:27: times of (FIBER-CAPS 09 daily. Medici n OR) e BIOTIN 5000 2020-0 Yes Take by [facility] OR - mouth [place] 16:27: daily. of 09 Medicin e L-THEANINE 2020-0 Yes 200mg Take 200 [facility] OR 8-11 mg by [place] 16:27: mouth of 09 daily. Medicin e Turmeric 2020-0 Yes Take by [facility] Curcumin 8-11 mouth. College 500 MG CAPS 16:27: of 09 Medicin e Magnesium 2020-0 Yes Take by [facility] 400 MG TABS 02-27 mouth. Colleg e 16:27: of Medicin e Lidocaine 2020-0 Yes Apply [facility] 0.5 % GEL 02-27 topically. Shanel ege 16:27: of Medicin e atorvastati 2020-0 Yes 20mg Take 20 mg [facility] n (LIPITOR) 02-27 by mouth Shanel ege 20 MG 16:25: daily. of tablet 47 Medicin e Ascorbic 2020-0 Yes Take by [facility] Acid 02-27 mouth College (VITAMIN C) 16:25: daily. of 500 MG CAPS 47 Medicin e acetaminoph 2020-0 Yes 1{tbl} Take 1 Tab [facility] en-codeine 02-27 by mouth [facility] (TYLENOL 16:25: every 8 of #3) 300-30 47 hours. Medicin MG per e tablet levofloxaci 2020- No [id number] 500mg Take 1 Tab [facility] n 02-19 by [facility] (LEVAQUIN) 00:00: 04:59 daily for o f 500 MG 00 :00 3 days. 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 levofloxaci 2020-0 2020- No [id number] 500mg Take 1 Tab [facility] n 02-19 by [facility] (LEVAQUIN) 00:00: 04:59 daily for o f 500 MG 00 :00 3 days. 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 levofloxaci 20200 2020- No [id number] 500mg Take 1 Tab [facility] n 02-19 by [facility] (LEVAQUIN) 00:00: 04:59 daily for o f 500 MG 00 :00 3 days. 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 levofloxaci 2020-0 2020- No [id number] 500mg Take 1 Tab [facility] n 02-19 by [facility] (LEVAQUIN) 00:00: 04:59 daily for o [...] tablet 00 ANXIETY Medicin e lorazepam 2020-0 2021- No TK SS T PO B aylor [...] 2020-0 2020- No 15mg Take 1 Tab [facility] (REMERON) 01-25- by mouth Colle ge 15 MG 00:00: 00:00 nightly. of tablet 00 :00 Medicin e triamcinolo 2020-0 2020- No [id number] [facility] ne 01-16 College acetonide 14:15: 14:02 of (KENALOG-40 00 :00 Medicin ) 40 mg/mL e 40 mg, bupivacaine (PF) (MARCAINE) 0.5 % 1 mL iohexol 2019-0 2019- No [id number] 1mL [facility] (OMNIPAQUE) 01-16 College 300 MG/ML 14:15: 14:02 of injection 1 00 :00 Medicin mL e iohexol 2020-0 2020- No [id number] 1mL 1 mL, [facility] (OMNIPAQUE) 01-16 Epidural, Co llege 300 MG/ML 14:15: 14:02 ONCE, 1 of injection 1 00 :00 dose, Tue Med icin mL 01/17/20 at e 0915 triamcinolo 2019-0 2020- No [id number] Epidural, [facility] ne 01-16 ONCE, 1 [place] acetonide 14:15: 14:02 dose, Tue of (KENALOG-40 00 :00 01/17/20 at Dc dicin ) 40 mg/mL 0915 e 40 mg, bupivacaine (PF) (MARCAINE) 0.5 % 1 mL triamterene 2020-0 Yes 1{capsu Take 1 Cap [facility] -hydrochlor 6-23 le} by mouth Shanel ege othiazide 13:49: every of (DYAZIDE) 30 morning. Medici n 37.5-25 MG e per capsule potassium 2020-0 Yes 10meq Take 10 [facility] chloride 6-23 mEq by [place] (MICRO-K) 13:49: mouth of 10 MEQ 30 daily. Medicin capsule e levothyroxi 2020-0 Yes 125ug Take 125 B [facility] ne 6-23 mcg by [place] (SYNTHROID) 13:49: mouth of 125 MCG 30 daily. Medicin tablet e gabapentin 2020-0 Yes 500mg Take 500 [facility] (NEURONTIN) 6-23 mg by [place] 300 MG 13:49: mouth of capsule 30 daily. Medicin e atorvastati 2020-0 Yes 20mg Take 20 mg [facility] n (LIPITOR) 6-23 by mouth Shanel ege 20 MG 13:49: daily. of tablet 30 Medicin e lamoTRIgine 2020-0 Yes 50mg Take 50 mg [facility] 50 MG TBDP 6-23 by mouth Colle ge 13:49: two times of 30 daily. Medicin e baclofen 2020-0 Yes 10mg Take 10 mg [facility] (LIORESAL) 6-23 by mouth [facility]le [facility] 10 MG 13:49: two times of tablet 30 daily. Medicin e Multiple 2020-0 Yes Take by [facility] Vitamins-Mi 01-09 [facility] nerals 13:49: daily. of (MULTIVITAM 30 Medicin IN ADULT e OR) B Complex 2020-0 Yes Take by [facility] Vitamins (B 01-09 [facility] COMPLEX 1 13:49: daily. of OR) 30 Medicin e Calcium 2020-0 Yes Take by [facility] Citrate-Vit 01-09 [facility] two Col [facility]ge oliver D 13:49: times of (CALCIUM 30 daily. Medicin CITRATE + D e OR) [place]-3 2020-0 Yes Take by [facility] Fatty Acids 01-09 [facility] (FISH OIL) 13:49: daily. of 1200 MG 30 Medicin CAPS e Lactobacill 2020-0 Yes Take by [facility] us 01-09 [facility] (PROBIOTIC 13:49: daily. of ACIDOPHILUS 30 Medicin OR) e Calcium 2020-0 Yes Take by [facility] Polycarboph 01-09 [place] [address] Colle ge il 13:49: times of (FIBER-CAPS 30 daily. Medici n OR) e BIOTIN 5000 2020-0 Yes Take by [facility] OR 01-09 [facility] 13:49: daily. of 30 Medicin e L-THEANINE 2020-0 Yes 200mg Take 200 [facility] OR - mg by [place] 13:49: mouth of 30 daily. Medicin e Ascorbic 2020-0 Yes Take by [facility] Acid 01-09 [facility] (VITAMIN C) 13:49: daily. of 500 MG CAPS 30 Medicin e Turmeric 2020-0 Yes Take by [facility] Curcumin 01-09 [facility]. [place] 500 MG CAPS 13:49: of 30 Medicin e acetaminoph 2020-0 Yes 1{tbl} Take 1 Tab [facility] en-codeine - by mouth Colle ge (TYLENOL 13:49: every 8 of #3) 300-30 30 hours. Medicin MG per e tablet Magnesium 2020-0 Yes Take by [facility] 400 MG TABS - mouth. Colleg e 13:49: of 30 Medicin e Lidocaine 2020-0 Yes Apply [facility] 0.5 % GEL - topically. Shanel ege 13:49: of 30 Medicin e triamterene 2020-0 Yes 1{capsu Take 1 Cap [facility] -hydrochlor 6- le} by mouth Shanel ege [...] atorvastati 2020-0 Yes 20mg Take 20 mg [facility] n (LIPITOR) 6-23 by mouth Shanel ege 20 MG 13:49: daily. of tablet 30 Medicin e lamoTRIgine 2020-0 Yes 50mg Take 50 mg [facility] 50 MG TBDP - by mouth Colle ge 13:49: two times of 30 daily. Medicin e baclofen 2020-0 Yes 10mg Take 10 mg [facility] (LIORESAL) 01-09 by mouth [facility]le [facility] 10 MG 13:49: two times of tablet 30 daily. Medicin e Multiple 2020-0 Yes Take by [facility] Vitamins-Mi 01-09 mouth [place] nerals 13:49: daily. of (MULTIVITAM 30 Medicin IN ADULT e OR) B Complex 2020-0 Yes Take by [facility] Vitamins (B 01-09 mouth [place] COMPLEX 1 13:49: daily. of OR) 30 Medicin e Calcium 2020-0 Yes Take by [facility] Citrate-Vit 01-09 mouth two Col [facility] oliver D 13:49: times of (CALCIUM 30 daily. Medicin CITRATE + D e OR) [place]-3 2020-0 Yes Take by [facility] Fatty Acids 01-09 mouth [place] (FISH OIL) 13:49: daily. of 1200 MG 30 Medicin CAPS e Lactobacill 2020-0 Yes Take by [facility] us 01-09 mouth [facility] (PROBIOTIC 13:49: daily. of ACIDOPHILUS 30 Medicin OR) e Calcium 2020-0 Yes Take by [facility] Polycarboph 01-09 mouth 3 Colle ge il 13:49: times of (FIBER-CAPS 30 daily. Medici n OR) e BIOTIN 5000 2020-0 Yes Take by [facility] OR 01-09 mouth College 13:49: daily. of 30 Medicin e L-THEANINE 2020-0 Yes 200mg Take 200 [facility] OR 6-23 mg by [place] 13:49: mouth of 30 daily. Medicin e Ascorbic 2020-0 Yes Take by [facility] Acid 6-23 mouth [place] (VITAMIN C) 13:49: daily. of 500 MG CAPS 30 Medicin e Turmeric 2020-0 Yes Take by [facility] Curcumin 6-23 mouth. [place] 500 MG CAPS 13:49: of 30 Medicin e acetaminoph 2020-0 Yes 1{tbl} Take 1 Tab [facility] en-codeine 6-23 by mouth Colle ge (TYLENOL 13:49: every 8 of #3) 300-30 30 hours. Medicin MG per e tablet Magnesium 2020-0 Yes Take by [facility] 400 MG TABS 6-23 mouth. Lisag [...] 10 [facility] chloride 6-19 mEq by [place] (MICRO-K) 18:04: mouth of 10 MEQ 39 daily. Medicin capsule e levothyroxi 2020-0 Yes 125ug Take 125 [facility] ne 6-19 mcg by [place] (SYNTHROID) 18:04: mouth of 125 MCG 39 daily. Medicin tablet e gabapentin 2020-0 Yes 500mg Take 500 [facility] (NEURONTIN) 6-19 mg by [place] 300 MG 18:04: mouth of capsule 39 [...] baclofen 2020-0 Yes 10mg Take 10 mg [facility] (LIORESAL) 6-19 by mouth Colle [facility] 10 MG 18:04: two times of tablet 39 daily. Medicin e Multiple 2020-0 Yes Take by [facility] Vitamins-Mi 01-05 [facility] nerals 18:04: daily. of (MULTIVITAM 39 Medicin IN ADULT e OR) B Complex 2020-0 Yes Take by [facility] Vitamins (B 01-05 mouth [place] COMPLEX 1 18:04: daily. of OR) 39 Medicin e Calcium 2020-0 Yes Take by [facility] Citrate-Vit 01-05 [facility] two Col lege oliver D 18:04: times of (CALCIUM 39 daily. Medicin CITRATE + D e OR) [place]-3 2020-0 Yes Take by [facility] Fatty Acids 01-05 [facility] (FISH OIL) 18:04: daily. of 1200 MG 39 Medicin CAPS e Lactobacill 2020-0 Yes Take by [facility] us 01-05 [facility] (PROBIOTIC 18:04: daily. of ACIDOPHILUS 39 Medicin OR) e Calcium 2020-0 Yes Take by [facility] Polycarboph 01-05 [facility] 3 Colle ge il 18:04: times of (FIBER-CAPS 39 daily. Medici n OR) e BIOTIN 5000 2020-0 Yes Take by [facility] OR 01-05 [facility] 18:04: daily. of 39 Medicin e L-THEANINE 2020-0 Yes 200mg Take 200 [facility] OR 01-05 mg by [place] 18:04: mouth of 39 daily. Medicin e Ascorbic 2020-0 Yes Take by [facility] Acid 01-05 [facility] (VITAMIN C) 18:04: daily. of 500 MG CAPS 39 Medicin e Turmeric 2020-0 Yes Take by [facility] Curcumin 01-05 [facility]. [place] 500 MG CAPS 18:04: of 39 Medicin e acetaminoph 2020-0 Yes 1{tbl} Take 1 Tab [facility] en-codeine 01-05 by mouth [facility]le [facility] (TYLENOL 18:04: every 8 of #3) 300-30 39 hours. Medicin MG per e tablet Magnesium 2020-0 Yes Take by [facility] 400 MG TABS 01-05 mouth. Colleg e 18:04: of 39 Medicin e Lidocaine 2020-0 Yes Apply [facility] 0.5 % GEL 01-05 topically. Shanel ege 18:04: of 39 Medicin e triamterene 2020-0 Yes 1{capsu Take 1 Cap [facility] -hydrochlor 01-05 le} by mouth Shanel ege [...] 500 [facility] (NEURONTIN) 6-19 mg by [place] 300 MG 18:04: mouth of capsule 39 daily. Medicin e atorvastati 2020-0 Yes 20mg Take 20 mg [facility] n (LIPITOR) 01-05 by mouth Shanel ege 20 MG 18:04: daily. of tablet 39 Medicin e lamoTRIgine 2020-0 Yes 50mg Take 50 mg [facility] 50 MG TBDP 01-05 by mouth Colle ge 18:04: two times of 39 daily. Medicin e baclofen 2020-0 Yes 10mg Take 10 mg [facility] (LIORESAL) 01-05 by mouth Colle [facility] 10 MG 18:04: two times of tablet 39 daily. Medicin e Multiple 2020-0 Yes Take by [facility] Vitamins-Mi - mouth [place] nerals 18:04: daily. of (MULTIVITAM 39 Medicin IN ADULT e OR) B Complex 2020-0 Yes Take by [facility] r Vitamins (B 01-05 mouth [place] COMPLEX 1 18:04: daily. of OR) 39 Medicin e Calcium 2020-0 Yes Take by [facility] Citrate-Vit 01-05 mouth two Col [facility] oliver D 18:04: times of (CALCIUM 39 daily. Medicin CITRATE + D e OR) [place]-3 2020-0 Yes Take by [facility] Fatty Acids 01-05 mouth [place] (FISH OIL) 18:04: daily. of 1200 MG 39 Medicin CAPS e Lactobacill 2020-0 Yes Take by [facility] us - mouth [place] (PROBIOTIC 18:04: daily. of ACIDOPHILUS 39 Medicin OR) e Calcium 2020-0 Yes Take by [facility] Polycarboph 01-05 mouth 3 Colle ge il 18:04: times of (FIBER-CAPS 39 daily. Medici n OR) e BIOTIN 5000 2020-0 Yes Take by [facility] OR 6-19 mouth College 18:04: daily. of 39 Medicin e L-THEANINE 2020-0 Yes 200mg Take 200 [facility] OR 6-19 mg by [place] 18:04: mouth of 39 daily. Medicin e Ascorbic 2020-0 Yes Take by [facility] Acid -19 mouth [place] (VITAMIN C) 18:04: daily. of 500 MG CAPS 39 Medicin e Turmeric 2020-0 Yes Take by [facility] Curcumin -19 mouth. [place] 500 MG CAPS 18:04: of 39 Medicin e acetaminoph 2020-0 Yes 1{tbl} Take 1 Tab [facility] en-codeine 01-05 by mouth [facility] (TYLENOL 18:04: every 8 of #3) 300-30 39 hours. Medicin MG per e tablet Magnesium 2020-0 Yes Take by [facility] r 400 MG TABS - mouth. Lisag cornelius 18:04: of 39 Medicin e Lidocaine 2020-0 Yes Apply [facility] 0.5 % GEL 01-05 topically. Shanel [...] 25 mg [facility] ine 6-17 by mouth [place] Succinate 00:00: daily. of ER 25 MG 00 Medicin TB24 e hydrOXYzine 2020-0 Yes 50mg Take 1 Tab [facility] (ATARAX) 50 6-17 by mouth 3 Co llege MG tablet 00:00: times of 00 daily as Medicin needed for e Anxiety. Desvenlafax 2020-0 Yes 25mg Take 25 mg [facility] ine 6-17 by mouth [place] Succinate 00:00: daily. of ER 25 MG [...] hydrOXYzine 2020-0 Yes 50mg Take 1 Tab [facility] (ATARAX) 50 6-17 by mouth 3 Co llege MG tablet 00:00: times of 00 daily as Medicin needed for e Anxiety. Desvenlafax 2020-0 Yes 25mg Take 25 mg [facility] ine 6-17 by mouth College Succinate [...] 2020-0 2020- No 50mg Take 1 Tab [facility] (ATARAX) 50 6-17 10-27 by mouth 3 C [facility]lege MG tablet 00:00: 00:00 times of 00 :00 daily as Medicin needed for e Anxiety. Lexiscan IV 2020-0 2020- No [id number] .4mg B [facility] Shanell) 0.4 12-18 [place] MG/5ML 16:00: 15:00 of injection 00 :00 Medicin 0.4 mg e Technetium 2020-0 2020- No [id number] 5mCi [facility] Tc 99m 12-18 [place] Tetrofosmin 16:00: 15:00 of (MYOVIEW) 00 :00 Medicin injection e 5-30 millicurie Technetium 2020-0 2020- No [id number] 5mCi [facility] Tc 99m 12-18 [place] Tetrofosmin 16:00: 14:00 of (MYOVIEW) 00 :00 Medicin injection e 5-30 millicurie triamterene 2020-0 Yes 1{capsu Take 1 Cap [facility] -hydrochlor 5-26 le} by mouth Shanel ege othiazide 15:32: every of (DYAZIDE) 13 morning. Medici n 37.5-25 MG e per capsule potassium 2020-0 Yes 10meq Take 10 [facility] chloride 5-26 mEq by [place] (MICRO-K) 15:32: mouth of 10 MEQ 13 daily. Medicin capsule e levothyroxi 2020-0 Yes 125ug Take 125 B [facility] ne 5-26 mcg by [place] (SYNTHROID) 15:32: mouth of 125 MCG 13 daily. Medicin tablet e gabapentin 2020-0 Yes 300mg Take 300 [facility] (NEURONTIN) 5-26 mg by [place] 300 MG 15:32: mouth of capsule 13 [...] 25mg Take 25 mg [facility] (ATARAX) 25 5- by mouth Shanel ege MG tablet 15:32: two times of 13 daily. Medicin e baclofen 2020-0 Yes 10mg Take 10 mg [facility] (LIORESAL) - by mouth Colle [facility] 10 MG 15:32: two times of tablet 13 daily. Medicin e Multiple 2020-0 Yes Take by [facility] Vitamins-Mi - mouth [place] nerals 15:32: daily. of (MULTIVITAM 13 Medicin IN ADULT e OR) B Complex 2020-0 Yes Take by [facility] r Vitamins (B 5- mouth [place] COMPLEX 1 15:32: daily. of OR) 13 Medicin e Calcium 2020-0 Yes Take by [facility] Citrate-Vit - mouth two [facility]ge oliver D 15:32: times of (CALCIUM 13 daily. Medicin CITRATE + D e OR) [place]-3 2020-0 Yes Take by [facility] Fatty Acids - mouth [place] (FISH OIL) 15:32: daily. of 1200 MG 13 Medicin CAPS e Lactobacill 2020-0 Yes Take by [facility] us - mouth College (PROBIOTIC 15:32: daily. of ACIDOPHILUS 13 Medicin OR) e Calcium 2020-0 Yes Take by [facility] Polycarboph - mouth 3 Colle ge il 15:32: times of (FIBER-CAPS 13 daily. Medici n OR) e BIOTIN 5000 2020-0 Yes Take by [facility] OR - mouth [place] 15:32: daily. of 13 Medicin e L-THEANINE 2020-0 Yes 200mg Take 200 [facility] OR 5-26 mg by [facility] 15:32: mouth of 13 daily. Medicin e Ascorbic 2020-0 Yes Take by [facility] Acid 12-12 mouth [place] (VITAMIN C) 15:32: daily. of 500 MG CAPS 13 Medicin e Turmeric 2020-0 Yes Take by [facility] Curcumin - mouth. [place] 500 MG CAPS 15:32: of 13 Medicin e acetaminoph 2020-0 Yes 1{tbl} Take 1 Tab [facility] en-codeine - by mouth Colle (TYLENOL 15:32: every 4 of #3) 300-30 13 hours as Medic in MG per needed for e tablet Pain. fluoxetine 2020-0 Yes 10mg Take 10 mg [facility] (PROZAC) 10 -26 by mouth Shanel ege MG tablet 15:32: daily. of 13 Medicin e triamterene 2020-0 Yes 1{capsu Take 1 Cap [facility] -hydrochlor -26 le} by mouth Shan[facility] e[facility] othiazide 15:32: every of (DYAZIDE) 13 morning. Medici n 37.5-25 MG e per capsule potassium 2020-0 Yes 10meq Take 10 [facility] chloride 5-26 mEq by [place] (MICRO-K) 15:32: mouth of 10 MEQ 13 daily. Medicin capsule e levothyroxi 2020-0 Yes 125ug Take 125 [facility] ne 5-26 mcg by [place] (SYNTHROID) 15:32: mouth of 125 MCG 13 daily. Medicin tablet e gabapentin 2020-0 Yes 300mg Take 300 [facility] (NEURONTIN) 5-26 mg by [place] 300 MG 15:32: mouth of capsule 13 daily. Medicin e atorvastati 2020-0 Yes 20mg Take 20 mg [facility] n (LIPITOR) 5-26 by mouth Shanel ege 20 MG 15:32: daily. of tablet 13 Medicin e lamoTRIgine 2020-0 Yes 50mg Take 50 mg [facility] 50 MG TBDP 12-12 by mouth Colle [facility] 15:32: two times of 13 daily. Medicin e hydrOXYzine 2020-0 Yes 25mg Take 25 mg [facility] (ATARAX) 25 12-12 by mouth Shanel ege MG tablet 15:32: two times of 13 daily. Medicin e baclofen 2020-0 Yes 10mg Take 10 mg [facility] (LIORESAL) 12-12 by mouth [facility]le [facility] 10 MG 15:32: two times of tablet 13 daily. Medicin e Multiple 2020-0 Yes Take by [facility] Vitamins-Mi 12-12 mouth [place] nerals 15:32: daily. of (MULTIVITAM 13 Medicin IN ADULT e OR) B Complex 2020-0 Yes Take by [facility] Vitamins (B 12-12 mouth [place] COMPLEX 1 15:32: daily. of OR) 13 Medicin e Calcium 2020-0 Yes Take by [facility] Citrate-Vit 12-12 mouth two [facility] oliver D 15:32: times of (CALCIUM 13 daily. Medicin CITRATE + D e OR) [place]-3 2020-0 Yes Take by [facility] Fatty Acids 12-12 mouth [place] (FISH OIL) 15:32: daily. of 1200 MG 13 Medicin CAPS e Lactobacill 2020-0 Yes Take by [facility] us 12-12 mouth [place] (PROBIOTIC 15:32: daily. of ACIDOPHILUS 13 Medicin OR) e Calcium 2020-0 Yes Take by [facility] Polycarboph 12-12 mouth 3 Colle ge il 15:32: times of (FIBER-CAPS 13 daily. Medici n OR) e BIOTIN 5000 2020-0 Yes Take by [facility] OR 12-12 mouth College 15:32: daily. of 13 Medicin e L-THEANINE 2020-0 Yes 200mg Take 200 [facility] OR 12-12 mg by [facility] 15:32: mouth of 13 daily. Medicin e Ascorbic 2020-0 Yes Take by [facility] Acid 12-12 [facility] (VITAMIN C) 15:32: daily. of 500 MG CAPS 13 Medicin e Turmeric 2020-0 Yes Take by [facility] Curcumin 12-12 mouth. College 500 MG CAPS 15:32: of 13 Medicin e acetaminoph 2020-0 Yes 1{tbl} Take 1 Tab [facility] en-codeine 5-26 by mouth Colle ge [...] 10 Bayl or chloride 5-19 mEq by [place] (MICRO-K) 14:28: mouth of 10 MEQ 36 daily. Medicin capsule e levothyroxi 2020-0 Yes 125ug Take 125 [facility] ne 5-19 mcg by [place] (SYNTHROID) 14:28: mouth of 125 MCG 36 daily. Medicin tablet e gabapentin 2020-0 Yes 300mg Take 300 [facility] (NEURONTIN) 5-19 mg by [place] 300 MG 14:28: mouth of capsule 36 daily. Medicin e atorvastati 2020-0 Yes 20mg Take 20 mg [facility] n (LIPITOR) 5-19 by mouth Shanel ege 20 MG 14:28: daily. of tablet 36 Medicin e lamoTRIgine 2020-0 Yes 50mg Take 50 mg [facility] 50 MG TBDP 5-19 by mouth Colle ge 14:28: two times of 36 daily. Medicin e hydrOXYzine 2020-0 Yes 25mg Take 25 mg [facility] (ATARAX) 25 5-19 by mouth Shanel ege MG tablet 14:28: two times of 36 daily. Medicin e baclofen 2020-0 Yes 10mg Take 10 mg [facility] (LIORESAL) 5-19 by mouth Colle [facility] 10 MG 14:28: two times of tablet 36 daily. Medicin e Multiple 2020-0 Yes Take by [facility] Vitamins-Mi 5-19 mouth [place] nerals 14:28: daily. of (MULTIVITAM 36 Medicin IN ADULT e OR) B Complex 2020-0 Yes Take by [facility] r Vitamins (B 5-19 mouth [place] COMPLEX 1 14:28: daily. of OR) 36 Medicin e Calcium 2020-0 Yes Take by [facility] Citrate-Vit 5-19 mouth two [facility] oliver D 14:28: times of (CALCIUM 36 daily. Medicin CITRATE + D e OR) [place]-3 2020-0 Yes Take by [facility] Fatty Acids - [facility] (FISH OIL) 14:28: daily. of 1200 MG 36 Medicin CAPS e Lactobacill 2020-0 Yes Take by [facility] us - mouth [place] (PROBIOTIC 14:28: daily. of ACIDOPHILUS 36 Medicin OR) e Calcium 2020-0 Yes Take by [facility] Polycarboph - mouth 3 Colle ge il 14:28: times of (FIBER-CAPS 36 daily. Medici n OR) e BIOTIN 5000 2020-0 Yes Take by [facility] OR - mouth [place] 14:28: daily. of 36 Medicin e L-THEANINE 2020-0 Yes 200mg Take 200 [facility] OR 5-19 mg by [place] 14:28: mouth of 36 daily. Medicin e Ascorbic 2020-0 Yes Take by [facility] Acid - [facility] (VITAMIN C) 14:28: daily. of 500 MG CAPS 36 Medicin e Turmeric 2020-0 Yes Take by [facility] Curcumin - mouth. [place] 500 MG CAPS 14:28: of 36 Medicin e acetaminoph 2020-0 Yes 1{tbl} Take 1 Tab [facility] en-codeine 5-19 by mouth [facility] (TYLENOL 14:28: every 4 of #3) 300-30 [...] Yes 1{tbl} Take 1 Tab [facility] -acetaminop 5-05 by mouth 2 [facility] (NORCO) 14:46: times of 7.5-325 MG 24 daily as Medic in per tablet needed for e Pain. Turmeric 2020-0 Yes Take by [facility] Curcumin 5-05 mouth. [place] 500 MG CAPS 14:46: of 19 Medicin e triamterene 2020-0 Yes 1{capsu Take 1 Cap [facility] -hydrochlor 5-05 le} by mouth Shanel ege othiazide 14:46: every of (DYAZIDE) 18 morning. Medici n 37.5-25 MG e per capsule potassium 2020-0 Yes 10meq Take 10 [facility] or chloride 5-05 mEq by [place] (MICRO-K) 14:46: mouth of 10 MEQ 18 daily. Medicin capsule e levothyroxi 2020-0 Yes 125ug Take 125 B [facility] ne 5-05 mcg by [place] (SYNTHROID) 14:46: mouth of 125 MCG 18 daily. Medicin tablet e gabapentin 2020-0 Yes 300mg Take 300 [facility] (NEURONTIN) 5-05 mg by [place] 300 MG 14:46: mouth of capsule 18 daily. Medicin e atorvastati 2020-0 Yes 20mg Take 20 mg [facility] n (LIPITOR) 5-05 by mouth Shanel ege 20 MG 14:46: daily. of tablet 18 Medicin e lamoTRIgine 2020-0 Yes 50mg Take 50 mg [facility] 50 MG TBDP 5-05 by mouth Colle ge 14:46: two times of 18 daily. Medicin e hydrOXYzine 2020-0 Yes 25mg Take 25 mg [facility] (ATARAX) 25 5-05 by mouth Shanel ege MG tablet 14:46: two times of 18 daily. Medicin e baclofen 2020-0 Yes 10mg Take 10 mg [facility] (LIORESAL) 5-05 by mouth [facility]le [facility] 10 MG 14:46: two times of tablet 18 daily. Medicin e Multiple 2020-0 Yes Take by [facility] Vitamins-Mi 5-05 mouth [place] nerals 14:46: daily. of (MULTIVITAM 18 Medicin IN ADULT e OR) B Complex 2020-0 Yes Take by [facility] r Vitamins (B 5-05 mouth [place] COMPLEX 1 14:46: daily. of OR) 18 Medicin e Calcium 2020-0 Yes Take by [facility] Citrate-Vit 5-05 mouth two [facility] o[facility] D 14:46: times of (CALCIUM 18 daily. Medicin CITRATE + D e OR) [place]-3 2020-0 Yes Take by [facility] Fatty Acids 5-05 mouth [place] (FISH OIL) 14:46: daily. of 1200 MG 18 Medicin CAPS e Lactobacill 2020-0 Yes Take by [facility] us 5-05 mouth [place] (PROBIOTIC 14:46: daily. of ACIDOPHILUS 18 Medicin OR) e Calcium 2020-0 Yes Take by [facility] Polycarboph 5-05 mouth 3 Colle ge il 14:46: times of (FIBER-CAPS 18 daily. Medici n OR) e BIOTIN 5000 2020-0 Yes Take by [facility] OR 5-05 mouth [place] 14:46: daily. of 18 Medicin e L-THEANINE 2020-0 Yes 200mg Take 200 [facility] OR 5-05 mg by [place] 14:46: mouth of 18 daily. Medicin e Ascorbic 2020-0 Yes Take by [facility] Acid 5-05 mouth [place] (VITAMIN C) 14:46: daily. of 500 MG CAPS 18 Medicin e Spironolact 2020-0 2020- No 25mg Take 25 mg [facility] one-HCTZ 4-21 04-21 by mouth Colleg e 25-25 MG 14:14: 00:00 daily. of TABS 23 :00 Medicin e triamterene 2020-0 Yes 1{capsu Take 1 Cap [facility] -hydrochlor 4-21 le} by mouth Shanel ege othiazide 14:13: every of (DYAZIDE) 06 morning. Medici n 37.5-25 MG e per capsule potassium 2020-0 Yes 10meq Take 10 [facility] or chloride 4-21 mEq by [place] (MICRO-K) 14:13: mouth of 10 MEQ 06 daily. Medicin capsule e levothyroxi 2020-0 Yes 125ug Take 125 B [facility] ne 4-21 mcg by [place] (SYNTHROID) 14:13: mouth of 125 MCG 06 daily. Medicin tablet e gabapentin 2020-0 Yes 300mg Take 300 [facility] (NEURONTIN) 4-21 mg by [place] 300 MG 14:13: mouth of capsule 06 daily. Medicin e atorvastati 2020-0 Yes 20mg Take 20 mg [facility] n (LIPITOR) 4-21 by mouth Shanel ege 20 MG 14:13: daily. of tablet 06 Medicin e lamoTRIgine 2020-0 Yes 50mg Take 50 mg [facility] 50 MG TBDP 4-21 by mouth Colle ge 14:13: two times of 06 daily. Medicin e hydrOXYzine 2020-0 Yes 25mg Take 25 mg [facility] (ATARAX) 25 4-21 by mouth Shanel ege MG tablet 14:13: two times of 06 daily. Medicin e baclofen 2020-0 Yes 10mg Take 10 mg [facility] (LIORESAL) 11-07 by mouth Colle [facility] 10 MG 14:13: two times of tablet 06 daily. Medicin e hydrocodone 2020-0 Yes 1{tbl} Take 1 Tab [facility] -acetaminop 11-07 by mouth 2 [facility] (NORCO) 14:13: times of 7.5-325 MG 06 daily as Medic in per tablet needed for e Pain. Multiple 2020-0 Yes Take by [facility] Vitamins-Mi 11-07 [facility] nerals 14:13: daily. of (MULTIVITAM 06 Medicin IN ADULT e OR) B Complex 2020-0 Yes Take by [facility] Vitamins (B 11-07 [facility] COMPLEX 1 14:13: daily. of OR) 06 Medicin e Calcium 2020-0 Yes Take by [facility] Citrate-Vit 11-07 mouth two [facility] oliver D 14:13: times of (CALCIUM 06 daily. Medicin CITRATE + D e OR) [place]-3 2020-0 Yes Take by [facility] Fatty Acids 11-07 [facility] (FISH OIL) 14:13: daily. of 1200 MG 06 Medicin CAPS e Lactobacill 2020-0 Yes Take by [facility] us 11-07 mouth [place] (PROBIOTIC 14:13: daily. of ACIDOPHILUS 06 Medicin OR) e Calcium 2020-0 Yes Take by [facility] Polycarboph 11-07 mouth 3 Colle ge il 14:13: times of (FIBER-CAPS 06 daily. Medici n OR) e BIOTIN 5000 2020-0 Yes Take by [facility] OR 11-07 mouth [place] 14:13: daily. of 06 Medicin e L-THEANINE 2020-0 Yes 200mg Take 200 [facility] OR 11-07 mg by [place] 14:13: mouth of 06 daily. Medicin e Ascorbic 2020-0 Yes Take by [facility] Acid 11-07 [facility] (VITAMIN C) 14:13: daily. of 500 MG CAPS 06 Medicin e Turmeric 2020-0 Yes Take by [facility] Curcumin 11-07 [facility]. [place] 500 MG CAPS 14:13: of 06 Medicin e Gabapentin 2020-0 2020- No [facility] 14:13: 00:00 N route of enthol 06 :00 daily. Medicin (SMARTRX e JOEY CO) triamterene 2020-0 Yes 1{capsu Take 1 Cap [facility] -hydrochlor 4-07 le} by mouth Shanel ege othiazide 17:37: every of (DYAZIDE) 31 morning. Medici n 37.5-25 MG e per capsule Spironolact 2020-0 Yes 25mg Take 25 mg [facility] one-HCTZ 4-07 by mouth [place] 25-25 MG 17:37: daily. of TABS 31 Medicin e potassium 2020-0 Yes 10meq Take 10 [facility] or chloride 4-07 mEq by [place] (MICRO-K) 17:37: mouth of 10 MEQ 31 daily. Medicin capsule e levothyroxi 2020-0 Yes 125ug Take 125 B [facility] ne 4-07 mcg by [place] (SYNTHROID) 17:37: mouth of 125 MCG 31 daily. Medicin tablet e gabapentin 2020-0 Yes 300mg Take 300 [facility] (NEURONTIN) 4-07 mg by [place] 300 MG 17:37: mouth of capsule 31 daily. Medicin e atorvastati 2020-0 Yes 20mg Take 20 mg [facility] n (LIPITOR) 4-07 by mouth Shanel ege 20 MG 17:37: daily. of tablet 31 Medicin e lamoTRIgine 2020-0 Yes 50mg Take 50 mg [facility] 50 MG TBDP 4-07 by mouth Colle ge 17:37: two times of 31 daily. Medicin e hydrOXYzine 2020-0 Yes 25mg Take 25 mg [facility] (ATARAX) 25 4-07 by mouth Shanel ege MG tablet 17:37: two times of 31 daily. Medicin e baclofen 2020-0 Yes 10mg Take 10 mg [facility] (LIORESAL) 4-07 by mouth [facility]le [facility] 10 MG 17:37: two times of tablet 31 daily. Medicin e hydrocodone 2020-0 Yes 1{tbl} Take 1 Tab [facility] -acetaminop 4-07 by mouth 2 [facility] (NORCO) 17:37: times of 7.5-325 MG 31 daily as Medic in per tablet needed for e Pain. Multiple 2020-0 Yes Take by [facility] Vitamins-Mi 4-07 mouth [place] nerals 17:37: daily. of (MULTIVITAM 31 Medicin IN ADULT e OR) B Complex 2020-0 Yes Take by [facility] Vitamins (B 10-24 mouth [place] COMPLEX 1 17:37: daily. of OR) 31 Medicin e Calcium 2020-0 Yes Take by [facility] Citrate-Vit - mouth two [facility] o[facility] D 17:37: times of (CALCIUM 31 daily. Medicin CITRATE + D e OR) [place]-3 2020-0 Yes Take by [facility] Fatty Acids [address] [place] [address] (FISH OIL) 17:37: daily. of 1200 MG 31 Medicin CAPS e Lactobacill 2020-0 Yes Take by [facility] us - mouth [place] (PROBIOTIC 17:37: daily. of ACIDOPHILUS 31 Medicin OR) e Calcium 2020-0 Yes Take by [facility] Polycarboph - mouth 3 Colle ge il 17:37: times of (FIBER-CAPS 31 daily. Medici n OR) e BIOTIN 5000 2020-0 Yes Take by [facility] [place] -[address] [place] [address] 17:37: daily. of 31 Medicin e magnesium 2020-0 Yes 30mL Take 30 mL [facility] hydroxide 10-24 by mouth Colleg e (MILK OF 17:37: daily. of MAGNESIA) 31 Medicin suspension e L-THEANINE 2020-0 Yes 200mg Take 200 [facility] OR - mg by [facility] 17:37: mouth of 31 daily. Medicin e Ascorbic 2020-0 Yes Take by [facility] Acid [address] [place] [address] (VITAMIN C) 17:37: daily. of 500 MG CAPS 31 Medicin e Gabapentin 2020-0 Yes by [facility] & COMBINATIO [place] Lidocaine-M 17:37: N route of enthol 31 daily. Medicin (SMARTRX e JOEY CO) ondansetron 2020-0 2020- No [id number] 4mg Take 1 Tab [facility] (ZOFRAN) 4 10-24 by mouth Shanel ege MG tablet 00:00: 04:59 every 8 of 00 :00 hours as Medicin needed for e Nausea for up to 30 days. lidocaine-p 2020-0 2020- No [id number] 1{appli Apply 1 [facility] rilocaine 10-24 cation} applicatio [place] ([facility]) 00:00: 04:59 n of 2.5-2.5 % 00 :00 topically Medic in cream as needed e for Other (apply over PORT 30-60 minutes prior to treatment) for up to 30 days. ondansetron 2020-0 2020- No [id number] 4mg Take 1 Tab [facility] (ZOFRAN) 4 10-24 05-08 by mouth Shanel ege MG tablet 00:00: 04:59 every 8 of 00 :00 hours as Medicin needed for e Nausea for up to 30 days. lidocaine-p 2020-0 2020- No [id number] 1{appli Apply 1 [facility] rilocaine - 05-08 cation} [facility]) 00:00: 04:59 n of 2.5-2.5 % 00 :00 topically Medic in cream as needed e for Other (apply over PORT 30-60 minutes prior to treatment) for up to 30 days. ondansetron 2020-0 2020- No [id number] 4mg Take 1 Tab [facility] (ZOFRAN) 4 10-24 05-08 by mouth Shanel ege MG tablet 00:00: 04:59 every 8 of 00 :00 hours as Medicin needed for e Nausea for up to 30 days. lidocaine-p 2020-0 2020- No [id number] 1{appli Apply 1 [facility] rilocaine 4- 05-08 cation} [facility]) 00:00: 04:59 n [...] Oral Tablet Calcium 2020-0 Yes Take by [facility] Citrate-Vit 10-03 mouth two [facility] o[facility] D 20:44: times of (CALCIUM 44 daily. Medicin CITRATE + D e OR) [place]-3 2020-0 Yes Take by [facility] Fatty Acids [address] [place] [address] (FISH OIL) 20:44: daily. of 1200 MG 44 Medicin CAPS e Lactobacill 2020-0 Yes Take by [facility] us 10-03 mouth [place] (PROBIOTIC 20:44: daily. of ACIDOPHILUS 44 Medicin OR) e Calcium 2020-0 Yes Take by [facility] Polycarboph mouth [address] [place] [address] ge il 20:44: times of (FIBER-CAPS 44 daily. Medici n OR) e BIOTIN 5000 2020-0 Yes Take by [facility] OR [address] [place] [address] 20:44: daily. of 44 Medicin e magnesium 2020-0 Yes 30mL Take 30 mL [facility] hydroxide 10-03 by mouth Colleg e (MILK OF 20:44: daily. of MAGNESIA) 44 Medicin suspension e L-THEANINE 2020-0 Yes 200mg Take 200 [facility] OR 3-17 mg by [place] 20:44: mouth of 44 daily. Medicin e Ascorbic 2020-0 Yes Take by [facility] Acid [address] [place] [address] (VITAMIN C) 20:44: daily. of 500 MG CAPS 44 Medicin e Gabapentin 2020-0 Yes by [facility] & COMBINATIO [place] Lidocaine-M 20:44: N route of enthol 44 daily. Medicin (SMARTRX e JOEY CO) levothyroxi 2020-0 Yes 125ug Take 125 [facility] ne 3-17 mcg by [place] (SYNTHROID) 20:44: mouth of 125 MCG 43 daily. Medicin tablet e gabapentin 2020-0 Yes 300mg Take 300 [facility] (NEURONTIN) 3-17 mg by [place] 300 MG 20:44: mouth of capsule 43 daily. Medicin e atorvastati 2020-0 Yes 20mg Take 20 mg [facility] n (LIPITOR) 3- by mouth Shanel ege 20 MG 20:44: daily. of tablet 43 Medicin e lamoTRIgine 2020-0 Yes 50mg Take 50 mg [facility] 50 MG TBDP 3-17 by mouth Colle ge 20:44: two times of 43 daily. Medicin e hydrOXYzine 2020-0 Yes 25mg Take 25 mg [facility] (ATARAX) 25 3-17 by mouth Shanel ege MG tablet 20:44: two times of 43 daily. Medicin e baclofen 2020-0 Yes 10mg Take 10 mg [facility] (LIORESAL) 3-17 by mouth Colle ge 10 MG 20:44: two times of tablet 43 daily. Medicin e hydrocodone 2020-0 Yes 1{tbl} Take 1 Tab [facility] -acetaminop 3-17 by mouth 2 [facility] (NORCO) 20:44: times of 7.5-325 MG 43 daily as Medic in per tablet needed for e Pain. Multiple 2020-0 Yes Take by [facility] Vitamins-Mi 3-17 [facility] nerals 20:44: daily. of (MULTIVITAM 43 Medicin IN ADULT e OR) B Complex 2020-0 Yes Take by [facility] Vitamins (B 3-17 mouth [place] COMPLEX 1 20:44: daily. of OR) 43 Medicin e triamterene 2020-0 Yes 1{capsu Take 1 Cap [facility] -hydrochlor 3-17 le} by mouth Shanel ege othiazide 20:31: every of (DYAZIDE) 15 morning. Medici n 37.5-25 MG e per capsule Spironolact 2020-0 Yes 25mg Take 25 mg [facility] one-HCTZ 3-17 by mouth College 25-25 MG 20:31: daily. of TABS 15 Medicin e potassium 2020-0 Yes 10meq Take 10 [facility] or chloride 3-17 mEq by [place] (MICRO-K) 20:31: mouth of 10 MEQ 15 daily. Medicin capsule e tramadol 2020-0 Yes 50 mg = 1 [facility] marylu hydrochlori 2-27 tab, PO, l de 50 MG 22:15: Q12H, X 30 [facility] [place] Oral Tablet 00 day, # 60 tab, 1 Refill(s), Pharmacy: [facility] #[id number] tramadol 2020-0 Yes 50 mg = 1 [place] marylu hydrochlori 2-27 tab, PO, l de 50 MG 22:15: Q12H, X 30 [facility] [place] Oral Tablet 00 day, # 60 tab, 1 Refill(s), Pharmacy: [facility] #[id number] tramadol 2020-0 Yes 50 mg = 1 [facility] marylu hydrochlori 2-27 tab, PO, l de 50 MG 22:15: Q12H, X 30 Her [place] Oral Tablet 00 day, # 60 tab, 1 Refill(s), Pharmacy: [facility] #[id number] tramadol 2020-0 Yes 50 mg = 1 [facility] marylu hydrochlori 2-27 tab, PO, l de 50 MG 22:15: Q12H, X 30 Her [place] Oral Tablet 00 day, # 60 tab, 1 Refill(s), [id number] tramadol 2020-0 Yes 50 mg = 1 [facility] marylu hydrochlori 2-27 tab, PO, l de 50 MG 22:15: Q12H, X 30 Her [place] Oral Tablet 00 day, # 60 tab, 1 Refill(s), Pharmacy: [facility] #[id number] Ascorbic 2020-0 Yes 1{capsu Take 1 Cap [facility] Acid 2-13 le} by mouth [facility] (VITAMIN C) 00:00: daily. of 500 MG CAPS 00 Medicin e [place]-3 2020-0 Yes 1{tbl} Take 1 Tab [facility] Fatty Acids 2-13 by mouth Shanel [facility] (FISH OIL) 00:00: daily. of 1200 MG 00 Medicin CAPS e B 2020-0 Yes 1{capsu Take 1 Cap [facility] Complex-C-F 2-13 le} by mouth Shanel [facility] olic Acid 00:00: daily. of (SUPER B 00 Medicin COMPLEX/FA/ e VIT C OR) Turmeric 2020-0 Yes DAILY [facility] 500 MG CAPS 2-13 College 00:00: of 00 Medicin e Turmeric 2020-0 2020- No DAILY [facility] 500 MG CAPS 2-13 - College 00:00: 00:00 of 00 :00 Medicin e Ascorbic 2020-0 2020- No 1{capsu Take 1 Cap [facility] Acid 2-13 11-19 le} by mouth [facility] (VITAMIN C) 00:00: 00:00 daily. of 500 MG CAPS 00 :00 Medicin e [place]-3 2020-0 2020- No 1{tbl} Take 1 Tab [facility] Fatty Acids 2-13 11-19 by mouth [facility] (FISH OIL) 00:00: 00:00 daily. of 1200 MG 00 :00 Medicin CAPS e B 2020-0 2020- No 1{capsu Take 1 Cap [facility] Complex-C-F 09-01 le} by mouth [facility] olic Acid 00:00: 00:00 daily. of (SUPER B 00 :00 Medicin COMPLEX/FA/ e VIT C OR) Magnesium 2019-0 2020- No DAILY [facility] Oxide 250 09-01 College MG TABS 00:00: 00:00 of 00 :00 Medicin e baclofen 10 2020-0 Yes 10 mg = 1 M emoria mg oral 2-11 tab, PO, l tablet 19:17: BID, # 60 Harish n 00 tab, 2 Refill(s), Pharmacy: [facility] #[id number] baclofen 10 2020-0 Yes 10 mg = 1 M emoria mg oral 2-11 tab, PO, l tablet 19:17: BID, # 60 Harish n 00 tab, 2 Refill(s), Pharmacy: [facility] #[id number] baclofen 10 2020-0 Yes 10 mg = 1 M emoria mg oral 2-11 tab, PO, l tablet 19:17: BID, # 60 Harish n 00 tab, 2 Refill(s), Pharmacy: [facility] #[id number] baclofen 10 2020-0 Yes 10 mg = 1 M emoria mg oral 2-11 tab, PO, l tablet 19:17: BID, # 60 Harish n 00 tab, 2 Refill(s), Pharmacy: [facility] #[id number] baclofen 10 2020-0 Yes 10 mg = 1 M emoria mg oral 2-11 tab, PO, l tablet 19:17: BID, # 60 Harish n 00 tab, 2 Refill(s), Pharmacy: [facility] #[id number] duloxetine 2020-0 No PO, 0 Memori a 1-30 Refill(s) l 21:19: [place] 00 DULoxetine 2020-0 Yes 20 mg = 1 Me moria 20 mg oral 1-30 cap, PO, l delayed 21:19: Daily, 0 Harish n release 00 Refill(s) capsule duloxetine 2020-0 No PO, 0 Memori a 1-30 Refill(s) l 21:19: Aleksey 00 DULoxetine 2020-0 Yes 20 mg = 1 Me moria 20 mg oral 1-30 cap, PO, l delayed 21:19: Daily, 0 Harish n release 00 Refill(s) capsule duloxetine 2020-0 No PO, 0 Memori a 1-30 Refill(s) l 21:19: [place] 00 DULoxetine 2020-0 Yes 20 mg = 1 Me moria 20 mg oral 1-30 cap, PO, l delayed 21:19: Daily, 0 Harish n release 00 Refill(s) capsule duloxetine 2020-0 No PO, 0 Memori a 1-30 Refill(s) l 21:19: Aleksey 00 DULoxetine 2020-0 Yes 20 mg = 1 Me moria 20 mg oral 1-30 cap, PO, l delayed 21:19: Daily, 0 Harish n release 00 Refill(s) capsule duloxetine 2020-0 No PO, 0 Memori a 1-30 Refill(s) l 21:19: [place] 00 DULoxetine 2020-0 Yes 20 mg = 1 Me moria 20 mg oral 1-30 cap, PO, l delayed 21:19: Daily, 0 Harish n release 00 Refill(s) capsule duloxetine 2020-0 No See Memoria -30 Instructio l 21:02: ns, 50mg Aleksey 00 PO qd, 0 Refill(s) duloxetine 2020-0 No See Memoria 30 Instructio l 21:02: ns, 50mg Aleksey 00 PO qd, 0 Refill(s) duloxetine 2020-0 No See Memoria 30 Instructio l 21:02: ns, 50mg Aleksey 00 PO qd, 0 Refill(s) duloxetine 2020-0 No See Memoria -30 Instructio l 21:02: ns, 50mg Aleksey 00 PO qd, 0 Refill(s) duloxetine 2020-0 No See Memoria -30 Instructio l 21:02: ns, 50mg Aleksey 00 PO qd, 0 Refill(s) Lorazepam 2018- No See Memoria 0.5 MG Oral 2- Instructio l Tablet 20:32: ns, Take 1 [...] tab, PO, l tablet 20:55: TID, PRN [place] 00 Agitation, 0 Refill(s) Hydroxyzine 2018-07 Yes [...] tab, PO, l tablet 20:55: TID, PRN [place] 00 Agitation, 0 Refill(s) Hydroxyzine 2018-07 Yes 25 mg = 1 M emoria Hydrochlori 2-19 tab, PO, l de 25 MG 20:55: QID, PRN Bing nn Oral Tablet 00 Itching, # 40 tab, 0 Refill(s) clonazePAM 2018-07 Yes See Memoria 0.5 mg oral 2-19 Instructio l tablet 20:55: ns, 2 tabs Bign nn 00 po qam, 1 tab at [...] tab, PO, l tablet 20:55: TID, PRN [place] 00 Agitation, 0 Refill(s) clorazepate 2018-07 Yes 7.5 mg = 1 Memoria 7.5 mg oral 2-19 tab, PO, l tablet 20:55: TID, PRN [place] 00 Agitation, 0 Refill(s) Hydroxyzine 2018-07 Yes [...] n 00 30 cap, 6 Refill(s), [id number] gabapentin 2019-0 Yes 300 mg = 1 M emoria 300 MG Oral 8-15 cap, PO, l Capsule 21:14: Daily, # Harish n 00 30 cap, 6 Refill(s), [id number] gabapentin 2019-0 Yes 300 mg = 1 M emoria 300 MG Oral 8-15 cap, PO, l Capsule 21:14: Daily, # Harish n 00 30 cap, 6 Refill(s), [id number] gabapentin 2019-0 Yes 300 mg = 1 M emoria 300 MG Oral 8-15 cap, PO, l Capsule 21:14: Daily, # Harish n 00 30 cap, 6 Refill(s), Pharmacy: [facility] #[id number] gabapentin 2019-0 Yes 300 mg = 1 M emoria 300 MG Oral 8-15 cap, PO, l Capsule 21:14: Daily, # Harish n 00 30 cap, 6 Refill(s), Pharmacy: [facility] #[id number] Potassium 2019-0 Yes 10 mEq, Memor ia Chloride 5-31 PO, Daily, l 20:53: 0 [place] 00 Refill(s) Potassium 2019-0 Yes 10 mEq, Memor ia Chloride 5-31 PO, Daily, l 20:53: 0 [place] 00 Refill(s) Potassium 2019-0 Yes 10 mEq, Memor ia Chloride 5-31 PO, Daily, l 20:53: 0 [place] 00 Refill(s) Potassium 2019-0 Yes 10 mEq, Memor ia Chloride 5-31 PO, Daily, l 20:53: 0 Aleksey 00 Refill(s) Potassium Yes 10 mEq, Memor ia Chloride 5-31 PO, Daily, l 20:53: 0 Aleksey 00 Refill(s) 24 HR Yes See Memoria lamotrigine -11 Instructio l 50 MG 19:36: ns, 4 tab [place] Extended 00 PO Daily, Release 0 Tablet Refill(s) 24 HR Yes See [facility]oria lamotrigine 07-30 Instructio l 50 MG 19:36: ns, 4 tab [place] Extended 00 PO Daily, Release 0 Tablet Refill(s) busPIRone 5 Yes 10 mg = 2 M emoria mg oral -11 tab, PO, l tablet 19:36: BID, # 90 Harish n 00 tab, 0 Refill(s) busPIRone 5 Yes 10 mg = 2 M emoria mg oral -11 tab, PO, l tablet 19:36: BID, # 90 Harish n 00 tab, 0 Refill(s) 24 HR Yes See Memoria lamotrigine -11 Instructio l 50 MG 19:36: ns, 4 tab [place] Extended 00 PO Daily, Release 0 Tablet Refill(s) busPIRone 5 Yes 10 mg = 2 M emoria mg oral -11 tab, PO, l tablet 19:36: BID, # 90 Harish n 00 tab, 0 Refill(s) 24 HR Yes See Memoria lamotrigine -11 Instructio l 50 MG 19:36: ns, 4 tab [place] Extended 00 PO Daily, Release 0 Tablet Refill(s) busPIRone 5 Yes 10 mg = 2 M emoria mg oral -11 tab, PO, l tablet 19:36: BID, # 90 Harish n 00 tab, 0 Refill(s) 24 HR Yes See Memoria lamotrigine -11 Instructio l 50 MG 19:36: ns, 4 tab [place] Extended 00 PO Daily, Release 0 Tablet Refill(s) busPIRone 5 Yes 10 mg = 2 M emoria mg oral -11 tab, PO, l tablet 19:36: BID, # 90 Harish n 00 tab, 0 Refill(s) gabapentin 2019-0 Yes 100 mg = 1 M emoria 100 MG Oral 1-11 cap, PO, l Capsule 19:35: Daily, 0 Harish n 00 Refill(s) gabapentin 2019-0 Yes 100 mg = 1 M emoria 100 MG Oral 1-11 cap, PO, l Capsule 19:35: Daily, 0 Harish n 00 Refill(s) gabapentin 2019-0 Yes 100 mg = 1 M emoria 100 MG Oral 1-11 cap, PO, l Capsule 19:35: Daily, 0 Harish n 00 Refill(s) gabapentin 2019-0 Yes 100 mg = 1 M emoria 100 MG Oral 1-11 cap, PO, l Capsule 19:35: Daily, 0 Harish n 00 Refill(s) gabapentin 2019-0 Yes 100 mg = 1 M emoria 100 MG Oral 1-11 cap, PO, l Capsule 19:35: Daily, 0 Harish n 00 Refill(s) Buspar 2019-0 No PO, BID, 0 Memor ia 1-11 Refill(s) l 19:29: Aleksey 00 lamotrigine 2019-0 No 75 mg = 3 M emoria 25 MG Oral 1-11 tab, PO, l Tablet 19:29: BID, 0 [place] [Lamictal] 00 Refill(s) Buspar 2019-0 No PO, BID, 0 Memor ia 1-11 Refill(s) l 19:29: Aleksey 00 lamotrigine 2019-0 No 75 mg = 3 M emoria 25 MG Oral 1-11 tab, PO, l Tablet 19:29: BID, 0 Aleksey [Lamictal] 00 Refill(s) Buspar 2019-0 No PO, BID, 0 Memor ia 1-11 Refill(s) l 19:29: Aleksey 00 lamotrigine 2019-0 No 75 mg = 3 M emoria 25 MG Oral 1-11 tab, PO, l Tablet 19:29: BID, 0 Aleksey [Lamictal] 00 Refill(s) Buspar 2019-0 No PO, BID, 0 Memor ia 1-11 Refill(s) l 19:29: Aleksey 00 lamotrigine 2019-0 No 75 mg = 3 M emoria 25 MG Oral 1-11 tab, PO, l Tablet 19:29: BID, 0 Aleksey [Lamictal] 00 Refill(s) Buspar No PO, BID, 0 Memor ia 1-11 Refill(s) l 19:29: [place] 00 lamotrigine No 75 mg = 3 M emoria 25 MG Oral 1-11 tab, PO, l Tablet 19:29: BID, 0 [place] [Lamictal] 00 Refill(s) Lorazepam 2017-07 No See [...] tab, PO, l tablet 19:26: QID, 0 [place] 00 Refill(s) gabapentin 2017-07 No 100 mg [...] tab, PO, l tablet 19:26: QID, 0 [place] 00 Refill(s) gabapentin 2017-07 No 100 mg [...] Harish n 00 Refill(s) Gabapentin Gabapentin Yes [place] 1 capsule Common [facility] Clonazepam Clonazepam Yes [place] 1 tablet Common [place] at bedtime Spiri t [facility] Fiber Fiber Yes [place] as Common Formula Formula Casi directed S pirit [facility] Fish Oil Fish Oil Yes [place] 1 capsule C ommon [facility] Gabapentin Gabapentin Yes [place] 1 capsule Common [facility] Atorvastati Atorvastati Yes [place] 1 tablet Common n Calcium n Calcium Casi S pirit - [facility] Multivitami Multivitami Yes [place] as Common n n Casi directed Spirit - [facility] Magnesium Magnesium Yes [place] 1 tablet Common [place] with a Spirit meal - [facility] Turmeric Turmeric Yes [place] as Common Curcumin Curcumin [place] directed Spirit - [facility] Probiotic Probiotic Yes [place] as Comm on Casi directed Spirit - [facility] Potassium Potassium Yes [place] 1 tablet Common Bicarb-Citr Bicarb-Citr [place] Spirit ic Acid ic Acid - [facility] Levothyroxi Levothyroxi Yes [place] 1 tablet Common ne Sodium ne Sodium Casi on an Spirit empty - [facility] stomach in [facility] Super B Super B Yes [place] as Common Complex Complex [place] directed S pirit - [facility] Immunizations Ordered Filled Immunization Date Status Comments [facility] e Immunization Name Name Influenza Virus 2020-04-03 Completed [facility]00 [facility] Influenza Virus 2020-04-03 Completed [facility] 00:00:00 [facility] Influenza Virus 2020-04-03 Completed [facility] Vaccine 00:00:00 [facility] Influenza Virus 2020-04-03 Completed [facility] Vaccine 00:00:00 [facility] Influenza Virus 2020-04-03 Completed [facility] Vaccine 00:00:00 [facility] Influenza Virus 2020-04-03 Completed [facility] Vaccine 00:00:00 [facility] Influenza 2020-03-20 Completed [facility] of 00:00:00 Medicine Influenza 2020-03-20 Completed [facility] of 00:00:00 Medicine Influenza 2020-03-20 Completed [facility] of 00:00:00 Medicine Influenza 2020-03-20 Completed [facility] of 00:00:00 Medicine Influenza 2020-03-20 Completed [facility] of 00:00:00 Medicine Influenza 2020-03-20 Completed [facility] of 00:00:00 Medicine Influenza 2020-03-20 Completed [facility] of 00:00:00 Medicine Influenza 2020-03-20 Completed [facility] of 00:00:00 Medicine Influenza 2020-03-20 Completed [facility] of 00:00:00 Medicine Influenza Hd 2020-03-20 Completed [facility] 00:00:00 Medicine Influenza Hd 2020-03-20 Completed [facility] of 00:00:00 Medicine Influenza Hd 2020-03-20 Completed [facility] of 00:00:00 Medicine Influenza Hd 2020-03-20 Completed [facility] of 00:00:00 Medicine Influenza Hd 2020-03-20 Completed [facility] of 00:00:00 Medicine Influenza Hd 2020-03-20 Completed [facility] of 00:00:00 Medicine Vital [...] kg Systolic blood 2022-02-18 20:40:00 150 mm[Hg] [facility] of pressure Medicine Diastolic blood 2022-02-18 20:40:00 86 mm[Hg] [facility] Medicine Heart rate 2022-02-18 20:40:00 50 /min [facility] Body temperature 2022-02-18 20:40:00 36.56 Ilana [facility] Respiratory rate 2022-02-18 20:40:00 20 /min [facility] Body height 2022-02-18 20:40:00 157.5 cm [facility] Body weight 2022-02-18 20:40:00 66.679 kg [facility] BMI 2022-02-18 20:40:00 26.89 kg/m2 [facility] Systolic blood 2022-02-14 16:26:00 164 mm[Hg] [facility] pressure Medicine Diastolic blood 2022-02-14 16:26:00 84 mm[Hg] [facility] pressure Medicine Heart rate 2022-02-14 16:26:00 70 /min [facility] Body height 2022-02-14 16:26:00 157.5 cm [facility] of [facility] Body weight 2022-02-14 16:26:00 67.042 kg [facility] Medicine BMI 2022-02-14 16:26:00 27.03 kg/m2 [facility] Medicine Systolic blood 2021-11-15 15:37:00 129 mm[Hg] [facility] pressure Medicine Diastolic blood 2021-11-15 15:37:00 85 mm[Hg] [facility] pressure Medicine Heart rate 2021-11-15 15:37:00 61 /min [facility] Medicine Body temperature 2021-11-15 15:37:00 36.72 [place] [facility] Body height 2021-11-15 15:37:00 160 cm [facility] Body weight 2021-11-15 15:37:00 65.499 kg [facility] BMI 2021-11-15 15:37:00 25.58 kg/m2 [facility] Medicine Systolic blood 2021-09-17 21:03:00 147 mm[Hg] [facility] pressure Medicine Diastolic blood 2021-09-17 21:03:00 82 mm[Hg] [facility] pressure Medicine Heart rate 2021-09-17 21:03:00 56 /min [facility] Medicine Systolic blood 2021-08-16 16:09:00 133 mm[Hg] [facility] pressure Medicine Diastolic blood 2021-08-16 16:09:00 78 mm[Hg] [facility] pressure Medicine Heart rate 2021-08-16 16:09:00 69 /min [facility] Medicine Body temperature 2021-08-16 16:09:00 36.67 Ilana [facility] Respiratory rate 2021-08-16 16:09:00 18 /min [facility] Body height 2021-08-16 16:09:00 160 cm [facility] Medicine Body weight 2021-08-16 16:09:00 62.869 kg [facility] BMI 2021-08-16 16:09:00 24.55 kg/m2 [facility] Medicine Systolic blood 2021-08-08 16:55:00 139 mm[Hg] [facility] of pressure Medicine Diastolic blood 2021-08-08 16:55:00 94 mm[Hg] [facility] of pressure Medicine Heart rate 2021-08-08 16:55:00 57 /min [facility] Medicine Body temperature 2021-08-08 16:55:00 36.83 Ilana [facility] Body height 2021-08-08 16:55:00 160 cm [facility] Medicine Body weight 2021-08-08 16:55:00 63.05 kg [facility] Medicine BMI 2021-08-08 16:55:00 24.62 kg/m2 [facility] Medicine Systolic blood 2021-05-07 19:35:00 145 mm[Hg] [facility] of pressure Medicine Diastolic blood 2021-05-07 19:35:00 83 mm[Hg] [facility] pressure Medicine Heart rate 2021-05-07 19:35:00 86 /min [facility] Medicine Body temperature 2021-05-07 19:35:00 36.78 Ilana [facility] Body height 2021-05-07 19:35:00 160 cm [facility] Medicine Body weight 2021-05-07 19:35:00 61.236 kg [facility] BMI 2021-05-07 19:35:00 23.91 kg/m2 [facility] Medicine Systolic blood 2021-01-29 17:28:00 122 mm[Hg] [facility] of pressure Medicine Diastolic blood 2021-01-29 17:28:00 78 mm[Hg] [facility] of pressure Medicine Heart rate 2021-01-29 17:28:00 78 /min [facility] Medicine Body temperature 2021-01-29 17:28:00 36.11 [facility] Body height 2021-01-29 17:28:00 157.5 cm [facility] Medicine Body weight 2021-01-29 17:28:00 64.32 kg [facility] Medicine BMI 2021-01-29 17:28:00 25.94 kg/m2 [facility] Medicine Systolic blood 2021-01-29 18:24:00 110 mm[Hg] [facility] pressure Medicine Diastolic blood 2021-01-29 18:24:00 77 mm[Hg] [facility] pressure Medicine Heart rate 2021-01-29 18:24:00 58 /min [facility] Medicine Body height 2021-01-29 18:24:00 160 cm [facility] Medicine Body weight 2021-01-29 18:24:00 63.957 kg [facility] Medicine BMI 2021-01-29 18:24:00 24.98 kg/m2 [facility] Medicine Systolic blood 2020-12-18 20:25:00 142 mm[Hg] [facility] pressure Medicine Diastolic blood 2020-12-18 20:25:00 95 mm[Hg] [facility] pressure Medicine Heart rate 2020-12-18 20:25:00 78 /min [facility] Medicine Body height 2020-12-18 20:25:00 157.5 cm [facility] Medicine Body weight 2020-12-18 20:25:00 62.143 kg [facility] Medicine BMI 2020-12-18 20:25:00 25.06 kg/m2 [facility] Medicine Systolic blood 2020-11-15 16:09:00 131 mm[Hg] [facility] pressure Medicine Diastolic blood 2020-11-15 16:09:00 89 mm[Hg] [facility] pressure Medicine Heart rate 2020-11-15 16:09:00 64 /min [facility] Medicine Body height 2020-11-15 16:09:00 157.5 cm [facility] Medicine Body weight 2020-11-15 16:09:00 62.143 kg [facility] Medicine BMI 2020-11-15 16:09:00 25.06 kg/m2 [facility] Medicine Systolic blood 2020-10-26 16:41:00 139 mm[Hg] [facility] pressure Medicine Diastolic blood 2020-10-26 16:41:00 82 mm[Hg] [facility] Medicine Heart rate 2020-10-26 16:41:00 54 /min [facility] Medicine Body temperature 2020-10-26 16:41:00 36.44 [place] [facility] Respiratory rate 2020-10-26 16:41:00 20 /min [facility] Body height 2020-10-26 16:41:00 157.5 cm [facility] Medicine Body weight 2020-10-26 16:41:00 62.415 kg [facility] Medicine BMI 2020-10-26 16:41:00 25.17 kg/m2 [facility] Medicine Systolic blood 2020-09-07 21:00:00 139 mm[Hg] [facility] pressure Medicine Diastolic blood 2020-09-07 21:00:00 82 mm[Hg] [facility] Medicine Heart rate 2020-09-07 21:00:00 62 /min [facility] Medicine Body height 2020-09-07 21:00:00 157.5 cm [facility] Medicine Body weight 2020-09-07 21:00:00 59.875 kg [facility] Medicine BMI 2020-09-07 21:00:00 24.14 kg/m2 [facility] Medicine Systolic blood 2020-08-02 16:01:00 122 mm[Hg] [facility] pressure Medicine Diastolic blood 2020-08-02 16:01:00 80 mm[Hg] [facility] pressure Medicine Heart rate 2020-08-02 16:01:00 82 /min [facility] Medicine Body height 2020-08-02 16:01:00 157.5 cm [facility] Medicine Body weight 2020-08-02 16:01:00 60.328 kg [facility] BMI 2020-08-02 16:01:00 24.33 kg/m2 [facility] Medicine Systolic blood 2020-07-27 17:29:00 157 mm[Hg] [facility] Medicine Diastolic blood 2020-07-27 17:29:00 97 mm[Hg] [facility] Medicine Heart rate 2020-07-27 17:29:00 66 /min [facility] Medicine Body temperature 2020-07-27 17:29:00 36.72 [place] [facility] Body height 2020-07-27 17:29:00 157.5 cm [facility] Medicine Body weight 2020-07-27 17:29:00 59.33 kg [facility] Medicine BMI 2020-07-27 17:29:00 23.92 kg/m2 [facility] Medicine Systolic blood 2020-06-07 14:20:00 147 mm[Hg] [facility] pressure Medicine Diastolic blood 2020-06-07 14:20:00 96 mm[Hg] [facility] Medicine Heart rate 2020-06-07 14:20:00 93 /min [facility] Medicine Body height 2020-06-07 14:20:00 157.5 cm [facility] Medicine Body weight 2020-06-07 14:20:00 67.132 kg [facility] BMI 2020-06-07 14:20:00 27.07 kg/m2 [facility] Medicine Systolic blood 2020-06-07 14:20:00 147 mm[Hg] [facility] Medicine Diastolic blood 2020-06-07 14:20:00 96 mm[Hg] [facility] Medicine Heart rate 2020-06-07 14:20:00 93 /min [facility] Medicine Body height 2020-06-07 14:20:00 157.5 cm [facility] Medicine Body weight 2020-06-07 14:20:00 67.132 kg [facility] Medicine BMI 2020-06-07 14:20:00 27.07 kg/m2 [facility] Medicine Systolic blood 2020-05-15 19:46:00 160 mm[Hg] [facility] pressure Medicine Diastolic blood 2020-05-15 19:46:00 84 mm[Hg] [facility] pressure Medicine Heart rate 2020-05-15 19:46:00 78 /min [facility] Body temperature 2020-05-15 19:46:00 36.83 [facility] [facility] Systolic blood 2020-05-15 19:46:00 160 mm[Hg] [facility] pressure Medicine Diastolic blood 2020-05-15 19:46:00 84 mm[Hg] [facility] pressure Medicine Heart rate 2020-05-15 19:46:00 78 /min [facility] Body temperature 2020-05-15 19:46:00 36.83 [place] [facility] Systolic blood 2020-04-27 19:35:00 143 mm[Hg] [facility] pressure Medicine Diastolic blood 2020-04-27 19:35:00 83 mm[Hg] [facility] pressure Medicine Heart rate 2020-04-27 19:35:00 60 /min [facility] Medicine Body temperature 2020-04-27 19:35:00 36.78 [facility] [facility] Body height 2020-04-27 19:35:00 157.5 cm [facility] Body weight 2020-04-27 19:35:00 70.035 kg [facility] BMI 2020-04-27 19:35:00 28.24 kg/m2 [facility] Medicine Systolic blood 2020-04-27 19:35:00 143 mm[Hg] [facility] pressure Medicine Diastolic blood 2020-04-27 19:35:00 83 mm[Hg] [facility] Medicine Heart rate 2020-04-27 19:35:00 60 /min [facility] Body temperature 2020-04-27 19:35:00 36.78 Ilana [facility] Body height 2020-04-27 19:35:00 157.5 cm [facility] Medicine Body weight 2020-04-27 19:35:00 70.035 kg [facility] Medicine BMI 2020-04-27 19:35:00 28.24 kg/m2 [facility] Systolic blood 2020-02-28 16:22:00 134 mm[Hg] [facility] pressure Medicine Diastolic blood 2020-02-28 16:22:00 78 mm[Hg] [facility] pressure Medicine Heart rate 2020-02-28 16:22:00 63 /min [facility] Medicine Body temperature 2020-02-28 16:22:00 36.83 [place] [facility] Body height 2020-02-28 16:22:00 157.5 cm [facility] Body weight 2020-02-28 16:22:00 73.573 kg [facility] BMI 2020-02-28 16:22:00 29.67 kg/m2 [facility] Systolic blood 2020-02-28 16:22:00 134 mm[Hg] [facility] of pressure Medicine Diastolic blood 2020-02-28 16:22:00 78 mm[Hg] [facility] Medicine Heart rate 2020-02-28 16:22:00 63 /min [facility] Body temperature 2020-02-28 16:22:00 36.83 [facility] Body height 2020-02-28 16:22:00 157.5 cm [facility] Body weight 2020-02-28 16:22:00 73.573 kg [facility] BMI 2020-02-28 16:22:00 29.67 kg/m2 [facility] HEIGHT 2020-01-23 00:00:00 157.5 cm WEIGHT 2020-01-23 00:00:00 68.493 kg HEIGHT 2020-01-12 00:00:00 157.5 cm WEIGHT 2020-01-12 00:00:00 68.901 kg Systolic blood 2020-01-17 13:44:00 124 mm[Hg] [facility] pressure Medicine Diastolic blood 2020-01-17 13:44:00 78 mm[Hg] [facility] Medicine Heart rate 2020-01-17 13:44:00 71 /min [facility] Body temperature 2020-01-17 13:44:00 36.56 [facility] Body height 2020-01-17 13:44:00 157.5 cm [facility] Medicine Body weight 2020-01-17 13:44:00 70.308 kg [facility] BMI 2020-01-17 13:44:00 28.35 kg/m2 [facility] Medicine Systolic blood 2020-01-17 13:44:00 124 mm[Hg] [facility] of pressure Medicine Diastolic blood 2020-01-17 13:44:00 78 mm[Hg] [facility] of pressure Medicine Heart rate 2020-01-17 13:44:00 71 /min [facility] Body temperature 2020-01-17 13:44:00 36.56 [facility] [facility] Body height 2020-01-17 13:44:00 157.5 cm [facility] Medicine Body weight 2020-01-17 13:44:00 70.308 kg [facility] BMI 2020-01-17 13:44:00 28.35 kg/m2 [facility] Medicine Systolic blood 2020-01-10 13:38:00 126 mm[Hg] [facility] of pressure Medicine Diastolic blood 2020-01-10 13:38:00 78 mm[Hg] [facility] of pressure Medicine Heart rate 2020-01-10 13:38:00 79 /min [facility] Medicine Body temperature 2020-01-10 13:38:00 36.61 [facility] Body height 2020-01-10 13:38:00 157.5 cm [facility] Body weight 2020-01-10 13:38:00 70.58 kg [facility] BMI 2020-01-10 13:38:00 28.46 kg/m2 [facility] Medicine Systolic blood 2020-01-10 13:38:00 126 mm[Hg] [facility] pressure Medicine Diastolic blood 2020-01-10 13:38:00 78 mm[Hg] [facility] of pressure Medicine Heart rate 2020-01-10 13:38:00 79 /min [facility] Medicine Body temperature 2020-01-10 13:38:00 36.61 [facility] [facility] Body height 2020-01-10 13:38:00 157.5 cm [facility] Body weight 2020-01-10 13:38:00 70.58 kg [facility] BMI 2020-01-10 13:38:00 28.46 kg/m2 [facility] Systolic blood 2020-01-06 18:05:00 146 mm[Hg] [facility] of pressure Medicine Diastolic blood 2020-01-06 18:05:00 91 mm[Hg] [facility] of pressure Medicine Heart rate 2020-01-06 18:05:00 68 /min [facility] Medicine Body temperature 2020-01-06 18:05:00 36.78 [facility] [facility] Body height 2020-01-06 18:05:00 157.5 cm [facility] Body weight 2020-01-06 18:05:00 71.668 kg [facility] BMI 2020-01-06 18:05:00 28.90 kg/m2 [facility] Systolic blood 2020-01-06 18:05:00 146 mm[Hg] [facility] of pressure Medicine Diastolic blood 2020-01-06 18:05:00 91 mm[Hg] [facility] pressure Medicine Heart rate 2020-01-06 18:05:00 68 /min [facility] Body temperature 2020-01-06 18:05:00 36.78 [facility] Body height 2020-01-06 18:05:00 157.5 cm [facility] Body weight 2020-01-06 18:05:00 71.668 kg [facility] BMI 2020-01-06 18:05:00 28.90 kg/m2 [facility] Body height 2019-12-14 14:05:00 157.5 cm [facility] Body weight 2019-12-14 14:05:00 70.308 kg [facility] BMI 2019-12-14 14:05:00 28.35 kg/m2 [facility] Body height 2019-12-14 14:05:00 157.5 cm [facility] Body weight 2019-12-14 14:05:00 70.308 kg [facility] BMI 2019-12-14 14:05:00 28.35 kg/m2 [facility] Systolic blood 2019-12-13 15:31:00 143 mm[Hg] [facility] of pressure Medicine Diastolic blood 2019-12-13 15:31:00 91 mm[Hg] [facility] [facility] Heart rate 2019-12-13 15:31:00 80 /min [facility] Respiratory rate 2019-12-13 15:31:00 16 /min [facility] Body height 2019-12-13 15:31:00 157.5 cm [facility] Medicine Body weight 2019-12-13 15:31:00 70.761 kg [facility] BMI 2019-12-13 15:31:00 28.53 kg/m2 [facility] Oxygen saturation in 2019-12-13 15:31:00 98 /min [facility] of Arterial blood by Medicine Pulse oximetry Systolic blood 2019-12-13 15:31:00 143 mm[Hg] [facility] pressure Medicine Diastolic blood 2019-12-13 15:31:00 91 mm[Hg] [facility] Medicine Heart rate 2019-12-13 15:31:00 80 /min [facility] Respiratory rate 2019-12-13 15:31:00 16 /min [facility] Body height 2019-12-13 15:31:00 157.5 cm [facility] Body weight 2019-12-13 15:31:00 70.761 kg [facility] BMI 2019-12-13 15:31:00 28.53 kg/m2 [facility] Oxygen saturation in 2019-12-13 15:31:00 98 /min [facility] Arterial blood by Medicine Pulse oximetry Systolic blood 2019-12-06 14:09:00 152 mm[Hg] [facility] pressure Medicine Diastolic blood 2019-12-06 14:09:00 82 mm[Hg] [facility] pressure Medicine Heart rate 2019-12-06 14:09:00 64 /min [facility] Body temperature 2019-12-06 14:09:00 36.5 Ilana [facility] Body height 2019-12-06 14:09:00 157.5 cm [facility] Body weight 2019-12-06 14:09:00 71.94 kg [facility] BMI 2019-12-06 14:09:00 29.01 kg/m2 [facility] Systolic blood 2019-12-06 14:09:00 152 mm[Hg] [facility] pressure Medicine Diastolic blood 2019-12-06 14:09:00 82 mm[Hg] [facility] of pressure Medicine Heart rate 2019-12-06 14:09:00 64 /min [facility] Body temperature 2019-12-06 14:09:00 36.5 Ilana [facility] Body height 2019-12-06 14:09:00 157.5 cm [facility] Body weight 2019-12-06 14:09:00 71.94 kg [facility] Medicine BMI 2019-12-06 14:09:00 29.01 kg/m2 [facility] Systolic blood 2019-11-22 14:39:00 137 mm[Hg] [facility] pressure Medicine Diastolic blood 2019-11-22 14:39:00 70 mm[Hg] [facility] of pressure Medicine Heart rate 2019-11-22 14:39:00 55 /min [facility] Body temperature 2019-11-22 14:39:00 36.61 Ilana [facility] Body height 2019-11-22 14:39:00 157.5 cm [facility] Body weight 2019-11-22 14:39:00 71.124 kg [facility] BMI 2019-11-22 14:39:00 28.68 kg/m2 [facility] Systolic blood 2019-11-22 14:39:00 137 mm[Hg] [facility] pressure Medicine Diastolic blood 2019-11-22 14:39:00 70 mm[Hg] [facility] of pressure Medicine Heart rate 2019-11-22 14:39:00 55 /min [facility] Body temperature 2019-11-22 14:39:00 36.61 Ilana [facility] Body height 2019-11-22 14:39:00 157.5 cm [facility] Body weight 2019-11-22 14:39:00 71.124 kg [facility] BMI 2019-11-22 14:39:00 28.68 kg/m2 [facility] Systolic blood 2019-11-08 14:07:00 144 mm[Hg] [facility] pressure Medicine Diastolic blood 2019-11-08 14:07:00 85 mm[Hg] [facility] of pressure Medicine Heart rate 2019-11-08 14:07:00 58 /min [facility] Body temperature 2019-11-08 14:07:00 36.44 Ilana [facility] Body height 2019-11-08 14:07:00 157.5 cm [facility] Body weight 2019-11-08 14:07:00 71.578 kg [facility] Medicine BMI 2019-11-08 14:07:00 28.86 kg/m2 [facility] Systolic blood 2019-11-08 14:07:00 144 mm[Hg] [facility] pressure Medicine Diastolic blood 2019-11-08 14:07:00 85 mm[Hg] [facility] Medicine Heart rate 2019-11-08 14:07:00 58 /min [facility] Body temperature 2019-11-08 14:07:00 36.44 Ilana [facility] Body height 2019-11-08 14:07:00 157.5 cm [facility] Body weight 2019-11-08 14:07:00 71.578 kg [facility] BMI 2019-11-08 14:07:00 28.86 kg/m2 [facility] Body weight 2019-10-25 17:38:00 70.171 kg [facility] BMI 2019-10-25 17:38:00 28.30 kg/m2 [facility] Systolic blood 2019-10-25 17:38:00 154 mm[Hg] [facility] pressure Medicine Diastolic blood 2019-10-25 17:38:00 86 mm[Hg] [facility] Medicine Heart rate 2019-10-25 17:38:00 52 /min [facility] ollege of [facility] Body temperature 2019-10-25 17:38:00 36.56 Il[place] [facility] Respiratory rate 2019-10-25 17:38:00 18 /min [facility] Body height 2019-10-25 17:38:00 157.5 cm [facility] ollege of [facility] Body weight 2019-10-25 17:38:00 70.171 kg [facility] ol[facility] of [facility] BMI 2019-10-25 17:38:00 28.30 kg/m2 [facility] ollege of [facility] Systolic blood 2019-10-25 17:38:00 154 mm[Hg] [facility] Medicine Diastolic blood 2019-10-25 17:38:00 86 mm[Hg] [facility] Medicine Heart rate 2019-10-25 17:38:00 52 /min [facility] ol[facility] of [facility] Body temperature 2019-10-25 17:38:00 36.56 Ilana [facility] Respiratory rate 2019-10-25 17:38:00 18 /min [facility] Body height 2019-10-25 17:38:00 [facility]5 [facility] Systolic blood 2019-10-04 20:10:00 142 mm[Hg] [facility] Medicine Diastolic blood 2019-10-04 20:10:00 89 mm[Hg] [facility] Medicine Heart rate 2019-10-04 20:10:00 58 /min [facility] ollege of [facility] Body temperature 2019-10-04 20:10:00 36.56 Ilana [facility] Respiratory rate 2019-10-04 20:10:00 18 /min [facility] Body height 2019-10-04 20:10:00 160 cm [facility] ol[facility] of [facility] Body weight 2019-10-04 20:10:00 [facility].668 [facility] BMI 2019-10-04 20:10:00 27.99 kg/m2 [facility] of [facility] Systolic blood 2019-10-04 20:10:00 142 mm[Hg] [facility] pressure Medicine Diastolic blood 2019-10-04 20:10:00 89 mm[Hg] [facility] Heart rate 2019-10-04 20:10:00 58 /min [facility] Body temperature 2019-10-04 20:10:00 36.56 Ilana [facility] Respiratory rate 2019-10-04 20:10:00 18 /min [facility] Body height 2019-10-04 20:10:00 160 cm [facility] Body weight 2019-10-04 20:10:00 71.668 kg [facility] BMI 2019-10-04 20:10:00 27.99 kg/m2 [facility] Systolic blood 2022-03-18 15:00:00 134 mm[Hg] [facility] Diastolic blood 2022-03-18 15:00:00 73 mm[Hg] [facility] Heart rate 2022-03-18 15:00:00 57 /min [facility] Respiratory rate 2022-03-18 15:00:00 12 /min [facility] Oxygen saturation in 2022-03-18 15:00:00 98 /min [facility] Arterial blood by Medical Ce nter Pulse oximetry Body temperature 2022-03-18 10:37:00 36.17 Ilana [facility] Body height 2022-03-18 10:37:[address] [facility] Body weight 2022-03-18 10:37:[address] [facility] BMI 2022-03-18 10:37:00 25.97 kg/m2 [facility] Systolic (mm Hg) 2021-05-23 15:05:00 Mayco Ryder Diastolic (mm Hg) 2021-05-23 15:05:00 Edelmira Ryder Heart Rate 2021-05-23 15:05:00 Carie Ryder Respitory Rate 2021-05-23 15:05:00 Harrison Judd Height 2021-05-23 15:05:00 157.48 cm Carie Ryder Weight 2021-05-23 15:05:00 Carie Ryder BMI Calculated 2021-05-23 15:05:00 [facility] Diastolic (mm Hg) 2021-03-13 19:55:00 [facility] Heart Rate 2021-03-13 19:55:00 [facility] Respitory Rate 2021-03-13 19:55:00 [facility] Height 2021-03-13 19:55:00 157.48 cm [facility] Weight 2021-03-13 19:55:00 [facility] BMI Calculated 2021-03-13 19:55:00 [facility] [place] Systolic (mm Hg) 2021-03-13 19:55:00 Mayco [facility] [place] Systolic (mm Hg) 2021-02-01 16:23:00 Mayco [facility] [place] Diastolic (mm Hg) 2021-02-01 16:23:00 [facility] [place] Heart Rate 2021-02-01 16:23:00 [facility] Respitory Rate 2021-02-01 16:23:00 [facility] [place] Systolic (mm Hg) 2021-01-09 14:27:00 Mayco rial [facility] Diastolic (mm Hg) 2021-01-09 14:27:00 [facility] [place] Heart Rate 2021-01-09 14:27:00 [facility] Respitory Rate 2021-01-09 14:27:00 [facility] [place] Height 2021-01-09 14:27:00 157.48 cm [facility] Weight 2021-01-09 14:27:00 [facility] BMI Calculated 2021-01-09 14:27:00 [facility] Systolic (mm Hg) 2020-11-06 19:09:00 Mayco rial [facility] Diastolic (mm Hg) 2020-11-06 19:09:00 [facility] [place] Heart Rate 2020-11-06 19:09:00 [facility] Respitory Rate 2020-11-06 19:09:00 [facility] Weight 2020-11-06 19:09:00 [facility] Systolic (mm Hg) 2020-09-05 19:20:00 Mayco rial [facility] Diastolic (mm Hg) 2020-09-05 19:20:00 [facility] Heart Rate 2020-09-05 19:20:00 [facility] Respitory Rate 2020-09-05 19:20:00 [facility] Height 2020-09-05 19:20:00 160.02 cm [facility] Weight 2020-09-05 19:20:00 [facility] BMI Calculated 2020-09-05 19:20:00 [facility] [place] Systolic (mm Hg) 2020-07-25 17:04:00 Mayco [facility] [place] Diastolic (mm Hg) 2020-07-25 17:04:00 [facility] [place] Heart Rate 2020-07-25 17:04:00 [facility] Respitory Rate 2020-07-25 17:04:00 [facility] [place] Height 2020-07-25 17:04:00 157.48 cm [facility] Weight 2020-07-25 17:04:00 [facility] BMI Calculated 2020-07-25 17:04:00 [facility] [place] Weight 2020-06-21 19:55:00 [facility] BMI Calculated 2020-06-21 19:55:00 [facility] [place] Systolic (mm Hg) 2020-06-21 19:55:00 Mayco rial [facility] Diastolic (mm Hg) 2020-06-21 19:55:00 [facility] [place] Heart Rate 2020-06-21 19:55:00 [facility] Respitory Rate 2020-06-21 19:55:00 [facility] Height 2020-06-21 19:55:00 157.48 cm [facility] Systolic (mm Hg) 2020-05-10 19:02:00 Mayco [facility] [place] Diastolic (mm Hg) 2020-05-10 19:02:00 [facility] [place] Heart Rate 2020-05-10 19:02:00 [facility] Respitory Rate 2020-05-10 19:02:00 [facility] Height 2020-05-10 19:02:00 157.48 cm [facility] Weight 2020-05-10 19:02:00 [facility] BMI Calculated 2020-05-10 19:02:00 [facility] [place] Systolic blood 2020-01-06 18:05:00 146 mm[Hg] [facility] pressure Medicine Diastolic blood 2020-01-06 18:05:00 91 mm[Hg] [facility] pressure Medicine Heart rate 2020-01-06 18:05:00 68 /min [facility] Body temperature 2020-01-06 18:05:00 36.78 Ilana [facility] Body height 2020-01-06 18:05:00 157.5 cm [facility] Body weight 2020-01-06 18:05:00 71.668 kg [facility] BMI 2020-01-06 18:05:00 28.90 kg/m2 [facility] Respiratory rate 2020-01-04 15:16:00 16 /min [facility] Oxygen saturation in 2019-12-13 15:31:00 98 /min [facility] blood by [facility] Pulse oximetry Systolic (mm Hg) 2019-09-15 21:38:00 Mayco rial [facility] Diastolic (mm Hg) 2019-09-15 21:38:00 [facility] Heart Rate 2019-09-15 21:38:00 [facility] Respitory Rate 2019-09-15 21:38:00 [facility] [place] Height 2019-09-15 21:38:00 157.48 cm [facility] Weight 2019-09-15 21:38:00 [facility] BMI Calculated 2019-09-15 21:38:00 [facility] [place] Systolic (mm Hg) 2019-08-18 20:52:00 Mayco [facility] [place] Diastolic (mm Hg) 2019-08-18 20:52:00 [facility] [place] Heart Rate 2019-08-18 20:52:00 [facility] Respitory Rate 2019-08-18 20:52:00 [facility] [place] Height 2019-08-18 20:52:00 162.56 cm [facility] Weight 2019-08-18 20:52:00 [facility] BMI Calculated 2019-08-18 20:52:00 [facility] [place] Systolic (mm Hg) 2019-07-22 15:23:00 Mayco [facility] Diastolic (mm Hg) 2019-07-22 15:23:00 [facility] [place] Heart Rate 2019-07-22 15:23:00 [facility] Respitory Rate 2019-07-22 15:23:00 [facility] Height 2019-07-22 15:23:00 157.48 cm [facility] Weight 2019-07-22 15:23:00 [facility] BMI Calculated 2019-07-22 15:23:00 [facility] [place] Systolic (mm Hg) 2019-07-07 20:51:00 Mayco [facility] Diastolic (mm Hg) 2019-07-07 20:51:00 [facility] Heart Rate 2019-07-07 20:51:00 [facility] Respitory Rate 2019-07-07 20:51:00 [facility] [place] Height 2019-07-07 20:51:00 157.48 cm [facility] Weight 2019-07-07 20:51:00 [facility] BMI Calculated 2019-07-07 20:51:00 [facility] [place] Systolic (mm Hg) 2019-03-03 20:11:00 Mayco rial [facility] Diastolic (mm Hg) 2019-03-03 20:11:00 [facility] [place] Heart Rate 2019-03-03 20:11:00 [facility] Respitory Rate 2019-03-03 20:11:00 [facility] Height 2019-03-03 20:11:00 157.48 cm [facility] Weight 2019-03-03 20:11:00 [facility] BMI Calculated 2019-03-03 20:11:00 [facility] [place] Height 2019-02-02 19:56:00 160.02 cm [facility] Weight 2019-02-02 19:56:00 [facility] BMI Calculated 2019-02-02 19:56:00 [facility] Systolic (mm Hg) 2019-02-02 19:56:00 Mayco rial [facility] Diastolic (mm Hg) 2019-02-02 19:56:00 [facility] [place] Respitory Rate 2019-02-02 19:56:00 [facility] [place] Heart Rate 2019-02-02 19:56:00 [facility] Height 2018-12-17 20:37:00 160.02 cm [facility] BMI Calculated 2018-12-17 20:37:00 [facility] Weight 2018-12-17 20:37:00 [facility] Systolic (mm Hg) 2018-12-17 20:37:00 Mayco rial [facility] Diastolic (mm Hg) 2018-12-17 20:37:00 [facility] [place] Heart Rate 2018-12-17 20:37:00 [facility] Respitory Rate 2018-12-17 20:37:00 [facility] Height 2018-07-30 19:12:00 160.02 cm [facility] BMI Calculated 2018-07-30 19:12:00 [facility] [place] Weight 2018-07-30 19:12:00 [facility] Systolic (mm Hg) 2018-07-30 19:12:00 Mayco rial [facility] Diastolic (mm Hg) 2018-07-30 19:12:00 [facility] Respitory Rate 2018-07-30 19:12:00 [facility] Heart Rate 2018-07-30 19:12:00 [facility] BMI Calculated 2018-06-18 19:08:00 [facility] Height 2018-06-18 19:08:00 157.48 cm [facility] Weight 2018-06-18 19:08:00 [facility] Systolic (mm Hg) 2018-06-18 19:08:00 Mayco rial [facility] Diastolic (mm Hg) 2018-06-18 19:08:00 [facility] Heart Rate 2018-06-18 19:08:00 [facility] Respitory Rate 2018-06-18 19:08:00 [facility] Procedures Procedure Date / Time Performing Clinician Source Performed IR CV ACCESS FLUORO 2022-03-18 15:21:00 Bird Yen [facility] POCT-GLUCOSE METER 2022-03-18 11:39:00 Bird Yen [facility] CBC W/PLT COUNT & AUTO 2022-03-18 11:37:00 Bird Yen CH, I [facility] PROTHROMBIN TIME/INR 2022-03-18 11:37:00 Bird Yen [facility] CBC W/PLT COUNT & AUTO 2022-03-18 11:37:00 Bird Yen CH I [facility] CBC W/AUTO DIFF WITH 2022-02-17 12:14:34 [facility] Medicine COMPREHENSIVE METABOLIC 2022-02-17 12:14:34 [facility] Medicine MAGNESIUM 2022-02-17 12:14:34 [facility] VITAMIN B12 2022-02-17 12:14:34 [facility] TSH + FREE T4 PROFILE 2022-02-14 13:28:53 [facility] COMPREHENSIVE METABOLIC 2022-02-13 18:04:00 Omar Yen [facility] PANEL Medicine VITAMIN B12 2022-02-13 18:04:00 Omar Yen [facility] MAGNESIUM 2022-02-13 18:04:00 Omar Yen [facility] CBC W/AUTO DIFF WITH 2022-02-13 18:04:00 Omar Yen [facility] PLATELETS [facility] TSH + FREE T4 PROFILE 2022-02-13 18:04:00 Omar Yen [facility] CBC W/AUTO DIFF WITH 2022-02-13 13:04:00 [facility] PLATELETS [facility] COMPREHENSIVE METABOLIC 2022-02-13 13:04:00 [facility] PANEL [facility] MAGNESIUM 2022-02-13 13:04:00 [facility] VITAMIN B12 2022-02-13 13:04:00 [facility] TSH + FREE T4 PROFILE 2022-02-13 13:04:[address] [facility] [address] ABDOMEN/PELVIS WITH & 2022-02-04 11:15:00 Bird Yen [facility] WITHOUT IV CONTRAST [facility] er [facility] CHEST WITH IV CONTRAST 2022-02-04 11:15:00 Bird Yen [facility] COMPREHENSIVE METABOLIC 2021-11-15 16:07:00 Omar Yen [facility] PANEL Medicine MAGNESIUM 2021-11-15 16:07:00 Omar Yen [facility] CBC W/AUTO DIFF WITH 2021-11-15 16:07:00 Omar Yen [facility] PL[facility]TS [facility] CBC W/AUTO DIFF WITH 2021-11-15 11:07:00 [facility] PL[facility]TS [facility] COMPREHENSIVE METABOLIC 2021-11-15 11:07:00 [facility] PANEL [facility] MAGNESIUM 2021-11-15 11:07:00 [facility] VITAMIN B12 2021-11-15 11:07:[address] [facility] [address] ABDOMEN/PELVIS WITH IV 2021-10-29 13:15:00 Yen, [facility] CT CHEST WITH IV CONTRAST 2021-10-29 13:15:00 Yen, [facility] POCT URINALYSIS DIPSTICK 2021-08-08 00:00:00 Vita Jaimes [facility] CT CHEST WITH IV CONTRAST 2021-07-29 13:03:00 Yen, [facility] CT ABDOMEN/PELVIS WITH IV 2021-07-29 13:03:00 Yen, [facility] POCT-CREATININE 2021-07-29 12:50:00 Yen, [facility] CT ABDOMEN/PELVIS WITH IV 2021-05-03 11:22:00 Yen, [facility] CT CHEST WITH IV CONTRAST 2021-05-03 11:22:00 Yen, [facility] POCT-CREATININE 2021-05-03 11:04:00 Yen, [facility] EXTERNAL PROVIDER RECORDS 2020-10-05 05:01:00 Doctor Unassalbin, [facility] BI SCREENING MAMMOGRAM 2020-07-19 18:09:33 Alec Foss [facility] BILATERAL Medical [place] US PELVIS COMPLETE WITH 2020-07-19 17:44:07 Alec Foss [facility] TRANSVAGINAL Medical Branch US HEAD NECK 2020-07-19 17:37:41 Pipo Alec [place] [facility] [place] [facility] [place] ASSIGNMENT OF BENEFITS 2020-07-19 16:40:50 [facility] ASSIGNMENT OF BENEFITS 2020-06-25 19:52:55 [facility] POCT URINALYSIS DIPSTICK 2020-05-15 00:00:00 Vita Jaimes [facility] COMPREHENSIVE METABOLIC 2020-02-21 21:30:00 Vita Jaimes [facility] PANEL Medicine CBC W/AUTO DIFF WITH 2020-02-21 21:30:00 Vita Jaimes [facility] PLATELETS Medicine XR LUMBAR SPINE 2 VIEWS AP 2020-01-06 20:56:[address] [facility] AND [facility] CBC W ABSOLUTE NEUTROPHIL 2019-12-20 05:00:00 Farshad [facility] COUNT Medicine COMPREHENSIVE METABOLIC 2019-12-20 05:00:00 Farshad kishore Castano [facility] PANEL Medicine MAGNESIUM 2019-12-20 05:00:00 Farshad [facility] MYOCARD PERFUSION - 2019-12-19 15:51:01 Frandy [facility] ECHO, COMPLETE 2019-12-19 13:44:45 Frandy [facility] EJECTION FRACTION RESULT 2019-12-19 00:00:00 Provider, Maggie snyder [facility] ELECTROCARDIOGRAM COMPLETE 2019-12-13 18:09:26 Frandy [facility] ELECTROCARDIOGRAM COMPLETE 2019-12-13 18:09:26 Frandy [facility] CBC W/AUTO DIFF WITH 2019-12-06 14:22:00 Frances Yencurtis Castano [facility] PLATELETS [facility] COMPREHENSIVE METABOLIC 2019-12-06 14:22:00 Farshad kishore Castano [facility] PANEL [facility] MAGNESIUM 2019-12-06 14:22:00 Farshad [facility] CBC W ABSOLUTE NEUTROPHIL 2019-11-22 13:42:00 Yen [facility] COUNT Medicine COMPREHENSIVE METABOLIC 2019-11-22 13:42:00 YeOmar de los santos [facility] PANEL [facility] MAGNESIUM 2019-11-22 13:42:00 Yen [facility] COMPREHENSIVE METABOLIC 2019-11-08 13:29:00 Farshad kishore Castano [facility] PANEL Medicine MAGNESIUM 2019-11-08 13:29:00 Farshad [facility] ANG,TUNNEL CATH,CENTRAL 2019-11-01 20:08:00 Omar Yen [facility] W Medicine CBC W/AUTO DIFF WITH 2019-11-01 14:45:00 Omar Yen [facility] PROTIME-INR 2019-11-01 14:45:00 [facility] APTT 2019-11-01 14:45:00 [facility] CT CHEST W CONTRAST 2019-10-27 18:15:00 Vita Jaimes [facility] SURGICAL PATHOLOGY REPORT 2019-10-14 14:26:00 Vita aJimes [facility] CT ABDOMEN PELVIS W WO 2019-10-12 20:47:00 Vita Jaimes [facility] CHEST 2 VIEWS 2019-10-12 20:12:00 Vita Jaimes [facility] POCT URINALYSIS DIPSTICK 2019-10-04 00:00:00 Vita Jaimes [facility] Plan of Care Planned Activity Planned Date Details Comments Source Future Scheduled 2023-03-[address] [facility] Test 00:00:00 [facility] (12+) [code = Tobacco Cessation Counseling and Screening (12+)] Future Scheduled 2023-03-[address] [facility] Test 00:00:00 [facility] (12+) [code = Tobacco Cessation Counseling and Screening (12+)] Future Scheduled 2022-08-17 CT CHEST ABDOMEN PELVIS Expected: [facility] Test 00:00:00 W/WO CONTRAST [code = 08[facility]17/2022[facility] Expires: 02/14/2023 Future Scheduled 2022-03-20 INFLUENZA VACCINE [...] (#1)] Future Scheduled 2022-02-18 TETANUS SHOT (ADULT) [employer] Test 15:40:57 [code = TETANUS SHOT of Medi cine (ADULT)] Future Scheduled 2022-02-18 BMI FOLLOW UP PLAN [employer] Test 15:40:57 [code = BMI FOLLOW UP of Med icine PLAN] Future Scheduled 2022-02-18 Hepatitis C screening [employer] Test 15:40:57 (procedure) [code = of Medic ine [id number]] Future Scheduled 2022-02-18 ZOSTER VACCINE (1 of 2) [employer] Test 15:40:57 [code = ZOSTER VACCINE of Me dicine (1 of 2)] Future Scheduled 2022-02-18 Screening for [employer] Test 15:40:57 osteoporosis of Medicine (procedure) [code = 324354094] Future Scheduled 2022-02-18 Pneumococcal 65+ (1 - [...] Scheduled 2022-02-17 CBC W/AUTO DIFF WITH Ordered: [employer] Test 12:14:34 PLATELETS [code = 02/17/2022 of Medicin e 54402-8] Future Scheduled 2022-02-17 COMPREHENSIVE METABOLIC Ordered: [facility] Test 12:14:34 PANEL [code = 95792-3] 02/17/2022 of Me dicine Future Scheduled 2022-02-17 MAGNESIUM [code = Ordered: [facility] Test 12:14:34 79909-3] 02/17/2022 of Medicine Future Scheduled 2022-02-17 VITAMIN B12 [code = Ordered: [employer] [employer] Test 12:14:34 2-9] 02/17/2022 of Medicine Future Scheduled 2022-02-17 COVID-19 Vaccine (#1) [employer] [facility] 12:10:01 [code = COVID-19 of Medicine Vaccine (#1)] Future Scheduled 2022-02-17 TETANUS SHOT (ADULT) [employer] [facility] 12:10:01 [code = TETANUS SHOT of Medi cine (ADULT)] Future Scheduled 2022-02-17 BMI FOLLOW UP PLAN [employer] [facility] 12:10:01 [code = BMI FOLLOW UP of Med icine PLAN] Future Scheduled 2022-02-17 Hepatitis C screening [employer] [facility] 12:10:01 (procedure) [code = of Medic ine 099756168] Future Scheduled 2022-02-17 ZOSTER VACCINE (1 of 2) [facility] [employer] Test 12:10:01 [code = ZOSTER VACCINE of Me dicine (1 of 2)] Future Scheduled 2022-02-17 Screening for [employer] Test 12:10:01 osteoporosis of Medicine (procedure) [code = 207842159] Future Scheduled 2022-02-17 Pneumococcal 65+ (1 - [...] icine DEVICE REMOVAL [code = 02/14/2022 until 19922] 02/14/2023 Future Scheduled 2022-02-07 CT CHEST ABDOMEN PELVIS Expected: [facility] [employer] Test 00:00:00 W/WO CONTRAST [code = 02/07/2022, of Med icine 50046] Expires: 11/15/2022 Future Scheduled 2021-11-15 COVID-19 Vaccine (1) [employer] [facility] 11:04:13 [code = COVID-19 of Medicine Vaccine (1)] Future Scheduled 2021-11-15 TETANUS SHOT (ADULT) [employer] [facility] 11:04:13 [code = TETANUS SHOT of Medi cine (ADULT)] Future Scheduled 2021-11-15 BMI FOLLOW UP PLAN [employer] Test 11:04:13 [code = BMI FOLLOW UP of Med icine PLAN] Future Scheduled 2021-11-15 Hepatitis C screening [facility] [employer] Test 11:04:13 (procedure) [code = of Medic ine 005026465] Future Scheduled 2021-11-15 ZOSTER VACCINE (1 of 2) [facility] [employer] Test 11:04:13 [code = ZOSTER VACCINE of Dc dicine (1 of 2)] Future Scheduled 2021-11-15 Screening for [facility] [employer] Test 11:04:13 osteoporosis of Medicine (procedure) [code = 461875163] Future Scheduled 2021-11-15 Pneumococcal 65+ (1 of [...] [code = [employer] 10:51:45 2-9] of Medicine Future Scheduled 2021-09-17 COVID-19 Vaccine (1) [employer] [facility] 10:05:09 [code = COVID-19 of Medicine Vaccine (1)] Future Scheduled 2021-09-17 TETANUS SHOT (ADULT) [employer] [facility] 10:05:09 [code = TETANUS SHOT of [employer] (ADULT)] Future Scheduled 2021-09-17 Hepatitis C screening [employer] [facility] 10:05:09 (procedure) [code = of Medic ine 288843618] Future Scheduled 2021-09-17 ZOSTER VACCINE (1 of 2) [employer] Test 10:05:09 [code = ZOSTER VACCINE of Me dicine (1 of 2)] Future Scheduled 2021-09-17 Screening for [facility] [employer] Test 10:05:09 osteoporosis of Medicine (procedure) [code = 330249629] Future Scheduled 2021-09-17 Pneumococcal 65+ (1 of [employer] [facility] 10:05:09 1 - PPSV23) [code = of Medic ine Pneumococcal 65+ (1 of 1 - PPSV23)] Future Scheduled 2021-09-17 MEDICARE AWV (Initial) [employer] [facility] 10:05:09 [code = MEDICARE AWV of [employer] (Initial)] Future Scheduled 2021-09-17 FLU VACCINE > [...] Scheduled 2021-08-16 CBC W/AUTO DIFF WITH Ordered: [facility] [employer] Test 11:14:13 PLATELETS [code = 08/16/2021 of Medicin e 71966-8] Future Scheduled 2021-08-16 COMPREHENSIVE METABOLIC Ordered: [facility] [employer] Test 11:14:13 PANEL [code = 43837-5] 08/16/2021 of Me dicine Future Scheduled 2021-08-16 CT CHEST ABDOMEN PELVIS 1 Occurrences [facility] [employer] Test 11:14:13 W CONTRAST [code = [place] [address]-3] 08/16/2021 until 08/16/2022 Future Scheduled 2021-08-16 Screening for malignant [facility] [employer] Test 10:09:14 neoplasm of colon of Medicin e (procedure) [code = 359765367] Future Scheduled 2021-08-16 COVID-19 Vaccine (1) [employer] [facility] 10:09:14 [code = COVID-19 of Medicine Vaccine (1)] Future Scheduled 2021-08-16 TETANUS SHOT (ADULT) [employer] [facility] 10:09:14 [code = TETANUS SHOT of Medi cine (ADULT)] Future Scheduled 2021-08-16 Hepatitis C screening [employer] [facility] 10:09:14 (procedure) [code = of Medic ine 587215407] Future Scheduled 2021-08-16 ZOSTER VACCINE (1 of 2) [facility] [employer] Test 10:09:14 [code = ZOSTER VACCINE of Me dicine (1 of 2)] Future Scheduled 2021-08-16 Screening for [facility] [employer] Test 10:09:14 osteoporosis of Medicine (procedure) [code = 605482614] Future Scheduled 2021-08-16 Pneumococcal 65+ (1 of [...] MONTHS] Future Scheduled 2021-08-16 Screening for malignant [employer] Test 10:09:14 neoplasm of breast of Medici ne (procedure) [code = 962532214] Future Scheduled 2021-08-16 FALL SCREEN [code = [employer] 10:09:14 FALL SCREEN] of Medicine Future Scheduled 2021-08-08 Screening for malignant [employer] Test 10:57:12 neoplasm of colon of Medicin e (procedure) [code = 887261081] Future Scheduled 2021-08-08 COVID-19 Vaccine (1) [employer] [facility] 10:57:12 [code = COVID-19 of Medicine Vaccine (1)] Future Scheduled 2021-08-08 TETANUS SHOT (ADULT) [employer] [facility] 10:57:12 [code = TETANUS SHOT of Medi cine (ADULT)] Future Scheduled 2021-08-08 Hepatitis C screening [employer] 10:57:12 (procedure) [code = of Medic ine 632548224] Future Scheduled 2021-08-08 ZOSTER VACCINE (1 of 2) [employer] Test 10:57:12 [code = ZOSTER VACCINE of Me dicine (1 of 2)] Future Scheduled 2021-08-08 FALL SCREEN [code = [employer] 10:57:12 FALL SCREEN] of Medicine Future Scheduled 2021-08-08 Screening for [employer] Test 10:57:12 osteoporosis of Medicine (procedure) [code = 923376297] Future Scheduled 2021-08-08 Pneumococcal 65+ (1 of [...] MONTHS] Future Scheduled 2021-08-08 Screening for malignant [facility] [employer] Test 10:57:12 neoplasm of breast of Medici ne (procedure) [code = 537709662] Future Scheduled 2021-08-08 CBC W/AUTO DIFF WITH Ordered: [facility] [employer] Test 10:54:25 PLATELETS [code = 08/08/2021 of Medicin e 61850-0] Future Scheduled 2021-08-08 COMPREHENSIVE METABOLIC Ordered: [facility] [employer] Test 10:54:25 PANEL [code = 02618-3] 08/08/2021 of Me dicine Future Scheduled 2021-08-08 [...] 2021-05-07 CT CHEST ABDOMEN PELVIS 1 Occurrences [facility] Test 14:59:03 W CONTRAST [code = [place] [address]-6] 05/07/2021 until 05/07/2022 Future Scheduled 2021-05-07 Screening for malignant [facility] Test 14:45:26 neoplasm of colon of Medicin e (procedure) [code = 662569205] Future Scheduled 2021-05-07 COVID-19 Vaccine (1) [facility] Test 14:45:26 [code = COVID-19 of Medicine Vaccine (1)] Future Scheduled 2021-05-07 TETANUS SHOT (ADULT) [facility] Test 14:45:26 [code = TETANUS SHOT of Medi cine (ADULT)] Future Scheduled 2021-05-07 Hepatitis C screening [facility] Test 14:45:26 (procedure) [code = of Medic ine 330140145] Future Scheduled 2021-05-07 ZOSTER VACCINE (1 of 2) [facility] Test 14:45:26 [code = ZOSTER VACCINE of Me dicine (1 of 2)] Future Scheduled 2021-05-07 FALL SCREEN [code = [facility] Test 14:45:26 FALL SCREEN] of Medicine Future Scheduled 2021-05-07 Screening for [facility] [employer] Test 14:45:26 osteoporosis of Medicine (procedure) [code = 285247911] Future Scheduled 2021-05-07 PNEUMOVAX >=65 (PPSV23) [facility] Test 14:45:26 [code = PNEUMOVAX >=65 of Me dicine (PPSV23)] Future Scheduled 2021-05-07 MEDICARE AWV (Initial) [facility] Test 14:45:26 [code = MEDICARE AWV of Medi cine (Initial)] Future Scheduled 2021-05-07 FLU VACCINE > 6 MONTHS [facility] 14:45:26 [code = FLU VACCINE > 6 of M edicine MONTHS] Future Scheduled 2021-05-07 Screening for malignant [facility] Test 14:45:26 neoplasm of breast of Medici ne (procedure) [code = 356388705] Future Scheduled 2021-05-01 CT CHEST ABDOMEN PELVIS Expected: [facility] Test 00:00:00 W CONTRAST [code = 05/01/2021, [place] [address]-6] Expires: 01/29/2022 Future Scheduled 2021-03-21 MEDICARE ANNUAL [...] IPPE)] Future Scheduled 2021-01-29 Screening for malignant [facility] [employer] Test 14:20:34 neoplasm of colon of Medicin e (procedure) [code = 995050901] Future Scheduled 2021-01-29 COVID-19 Vaccine (1) [employer] 14:20:34 [code = COVID-19 of Medicine Vaccine (1)] Future Scheduled 2021-01-29 TETANUS SHOT (ADULT) [employer] [facility] 14:20:34 [code = TETANUS SHOT of Medi cine (ADULT)] Future Scheduled 2021-01-29 Hepatitis C screening [employer] 14:20:34 (procedure) [code = of Medic ine 879430380] Future Scheduled 2021-01-29 ZOSTER VACCINE (1 of 2) [facility] [employer] Test 14:20:34 [code = ZOSTER VACCINE of Me dicine (1 of 2)] Future Scheduled 2021-01-29 FALL SCREEN [code = [employer] 14:20:34 FALL SCREEN] of Medicine Future Scheduled 2021-01-29 Screening for [employer] Test 14:20:34 osteoporosis of Medicine (procedure) [code = 598816691] Future Scheduled 2021-01-29 PNEUMOVAX >=65 (PPSV23) [facility] [employer] Test 14:20:34 [code = PNEUMOVAX [...] MONTHS] Future Scheduled 2021-01-29 Screening for malignant [facility] [employer] Test 14:20:34 neoplasm of breast of Medici ne (procedure) [code = 859528765] Future Scheduled 2021-01-29 Screening for malignant [facility] [employer] Test 13:25:47 neoplasm of colon of Medicin e (procedure) [code = 067348307] Future Scheduled 2021-01-29 COVID-19 Vaccine (1) [employer] [facility] 13:25:47 [code = COVID-19 of Medicine Vaccine (1)] Future Scheduled 2021-01-29 TETANUS SHOT (ADULT) [employer] [facility] 13:25:47 [code = TETANUS SHOT of Medi cine (ADULT)] Future Scheduled 2021-01-29 BMI FOLLOW UP PLAN [employer] Test 13:25:47 [code = BMI FOLLOW UP of Med icine PLAN] Future Scheduled 2021-01-29 Hepatitis C screening [employer] [facility] 13:25:47 (procedure) [code = of Medic ine 929654543] Future Scheduled 2021-01-29 ZOSTER VACCINE (1 of 2) [facility] [employer] Test 13:25:47 [code = ZOSTER VACCINE of Me dicine (1 of 2)] Future Scheduled 2021-01-29 FALL SCREEN [code = [employer] 13:25:47 FALL SCREEN] of Medicine Future Scheduled 2021-01-29 Screening for [facility] [employer] Test 13:25:47 osteoporosis of Medicine (procedure) [code = 482354552] Future Scheduled 2021-01-29 PNEUMOVAX >=65 (PPSV23) [facility] [employer] Test 13:25:47 [code = PNEUMOVAX >=65 of Me dicine (PPSV23)] Future Scheduled 2021-01-29 MEDICARE IPPE (WELCOME [employer] [facility] 13:25:47 TO MEDICARE) [code = of Medi cine MEDICARE IPPE (WELCOME TO MEDICARE)] Future Scheduled 2021-01-29 FLU VACCINE > 6 MONTHS [employer] [facility] 13:25:47 [code = FLU VACCINE > 6 of M edicine MONTHS] Future Scheduled 2021-01-29 Screening for malignant [facility] [employer] Test 13:25:47 neoplasm of breast of Medici ne (procedure) [code = 328272946] Future Scheduled 2021-01-29 CBC W/AUTO DIFF WITH Ordered: [facility] [employer] Test 12:59:23 PLATELETS [code = 01/29/2021 of Medicin e 94108-6] Future Scheduled 2021-01-29 COMPREHENSIVE METABOLIC Ordered: [facility] [employer] Test 12:59:23 PANEL [code = 79793-3] 01/29/2021 of Me dicine Future Scheduled 2021-01-29 MAGNESIUM [code = Ordered: [facility] [employer] Test 12:59:23 33691-8] 01/29/2021 of Medicine Future Scheduled 2021-01-29 VITAMIN B12 [code = Ordered: [employer] [facility] 12:59:23 2132-9] 01/29/2021 of Medicine Future Scheduled 2020-12-18 Screening for malignant [facility] [employer] Test 15:26:17 neoplasm of colon of Medicin e (procedure) [code = 220228037] Future Scheduled 2020-12-18 COVID-19 Vaccine (1) [employer] [facility] 15:26:17 [code = COVID-19 of Medicine Vaccine (1)] Future Scheduled 2020-12-18 TETANUS SHOT (ADULT) [employer] Test 15:26:17 [code = TETANUS SHOT of Medi cine (ADULT)] Future Scheduled 2020-12-18 BMI FOLLOW UP PLAN [employer] Test 15:26:17 [code = BMI FOLLOW UP of Med icine PLAN] Future Scheduled 2020-12-18 Hepatitis C screening [facility] Test 15:26:17 (procedure) [code = of Medic ine 410518601] Future Scheduled 2020-12-18 ZOSTER VACCINE (1 of 2) [facility] Test 15:26:17 [code = ZOSTER VACCINE of Me dicine (1 of 2)] Future Scheduled 2020-12-18 Screening for [employer] Test 15:26:17 osteoporosis of Medicine (procedure) [code = 518922006] Future Scheduled 2020-12-18 PNEUMOVAX >=65 (PPSV23) [facility] Test 15:26:17 [code = PNEUMOVAX >=65 of Me dicine (PPSV23)] Future Scheduled 2020-12-18 MEDICARE IPPE (WELCOME [facility] Test 15:26:17 TO MEDICARE) [code = of Medi cine MEDICARE IPPE (WELCOME TO MEDICARE)] Future Scheduled 2020-12-18 FALL SCREEN [code = [employer] [facility] 15:26:17 FALL SCREEN] of Medicine Future Scheduled 2020-12-18 FLU VACCINE > 6 MONTHS [employer] Test 15:26:17 [code = FLU VACCINE > 6 of M edicine MONTHS] Future Scheduled 2020-12-18 Screening for malignant [facility] Test 15:26:17 neoplasm of breast of Medici ne (procedure) [code = 941210099] Diagnostic Test 2020-10-25 CT CHEST ABDOMEN PELVIS Expected: [facility] [employer] Pending 00:00:00 W CONTRAST [code = 10/25/2020, [place] [address]-1] Expires: 07/27/2021 Diagnostic Test 2020-04-05 CT ABDOMEN PELVIS W WO Expected: [employer] Pending 00:00:00 CONTRAST [code = 04/05/2020, of Medicine 40964-0] Expires: 05/05/2020 Diagnostic Test 2019-12-13 MYOCARD PERFUSION - Expected: [employer] Pending 00:00:00 LEXISCAN [code = 12107] 12/13/2019, of M edicine Expires: 06/14/2021 Diagnostic Test 2019-12-13 ECHO, COMPLETE [code = Expected: [employer] Pending 00:00:00 38575] 12/13/2019, of Medicine Expires: 06/14/2020 Diagnostic Test 2019-11-01 IR PORT PLACEMENT EQUAL Expected: [employer] Pending 00:00:00 OR > 5 YEARS [code = 11/01/2019, of [facility] [address]1003] Expires: 10/24/2020 Future Scheduled 2010 PNEUMOCOCCAL 65+ [facility] Test 00:[facility]:00 2) [code = [facility] VACCINES (1 of 2)] Future [...] DXA [facility] Test 00:00:00 SCAN] [facility] Future Scheduled 1945 DXA SCAN [code = DXA [facility] Test 00:00:00 SCAN] [facility] Future Scheduled 1945 DXA SCAN [code = DXA [facility] Test 00:00:00 SCAN] [facility] Future Scheduled 1945 DXA SCAN [code = DXA [facility] Test 00:00:00 SCAN] [facility] Future Scheduled 1945 DXA SCAN [code = DXA [facility] Test 00:00:00 SCAN] [facility] Future Scheduled Screening for malignant [facility] Test neoplasm of colon of Medicin e (procedure) [code = 448363181] Future Scheduled TETANUS SHOT (ADULT) [employer] [place] Test [code = TETANUS SHOT of Medi cine (ADULT)] Future Scheduled COVID-19 Vaccine (1) [facility] Test [code = COVID-19 of Medicine Vaccine (1)] Future Scheduled Hepatitis C screening [facility] Test (procedure) [code = of Medic ine 271336675] Future Scheduled ZOSTER VACCINE (1 of 2) [employer] Test [code = ZOSTER VACCINE of Me dicine (1 of 2)] Future Scheduled Screening for [facility] Test osteoporosis of Medicine (procedure) [code = 963638626] Future Scheduled PNEUMOVAX >=65 (PPSV23) [employer] Test [code = PNEUMOVAX >=65 of Me dicine (PPSV23)] Future Scheduled MEDICARE IPPE (WELCOME [employer] TO MEDICARE) [code = of [employer] MEDICARE IPPE (WELCOME TO MEDICARE)] Future Scheduled FALL SCREEN [code = [employer] FALL SCREEN] of Medicine Future Scheduled Screening for malignant [facility] [employer] Test neoplasm of breast of Medici ne (procedure) [code = 053779667] Future Scheduled CBC W/AUTO DIFF WITH Ordered: [employer] PLATELETS [code = 10/25/2019 of Medicin e 10683-9] Future Scheduled Screening for malignant [employer] Test neoplasm of colon of Medicin e (procedure) [code = 349587265] Future Scheduled TETANUS SHOT (ADULT) [employer] Test [code = TETANUS SHOT of [employer]i [employer] (ADULT)] Future Scheduled COVID-19 Vaccine (1) [employer] [facility] [code = COVID-19 of Medicine Vaccine (1)] Future Scheduled Hepatitis C screening [employer] [facility] (procedure) [code = of Medic ine 448264891] Future Scheduled ZOSTER VACCINE (1 of 2) [facility] [employer] Test [code = ZOSTER VACCINE of Me dicine (1 of 2)] Future Scheduled Screening for [facility] Test osteoporosis of Medicine (procedure) [code = 531213531] Future Scheduled PNEUMOVAX >=65 (PPSV23) [employer] Test [code = PNEUMOVAX >=65 of Me dicine (PPSV23)] Future Scheduled MEDICARE IPPE (WELCOME [employer] TO MEDICARE) [code = of [employer] MEDICARE IPPE (WELCOME TO MEDICARE)] Future Scheduled COMPREHENSIVE METABOLIC Ordered: [facility] [employer] Test PANEL [code = 75070-4] 10/25/2019 of Me dicine Future Scheduled FALL SCREEN [code = [employer] FALL SCREEN] of Medicine Future Scheduled Screening for malignant [employer] Test neoplasm of breast of Medici ne (procedure) [code = 015130950] Future Scheduled MAGNESIUM [code = Ordered: [facility] [employer] Test 88283-7] 10/25/2019 of Medicine Future Scheduled COLON CANCER SCREENING: [employer] [facility] COLONOSCOPY [code = of Medic ine COLON CANCER SCREENING: COLONOSCOPY] Future Scheduled Screening for malignant [facility] [employer] Test neoplasm of colon of Medicin e (procedure) [code = 062150617] Future Scheduled TETANUS SHOT (ADULT) [employer] [facility] [code = TETANUS SHOT of Medi cine (ADULT)] Future Scheduled COVID-19 Vaccine (1) [employer] [facility] [code = COVID-19 of Medicine Vaccine (1)] Future Scheduled BMI FOLLOW UP PLAN [employer] [facility] [code = BMI FOLLOW UP of Med icine PLAN] Future Scheduled Hepatitis C screening [employer] [facility] (procedure) [code = of Medic ine 552479497] Future Scheduled MAMMOGRAM ANNUAL [code [facility] [employer] Test = MAMMOGRAM ANNUAL] of Medic ine Future Scheduled ZOSTER VACCINE (1 of 2) [facility] [employer] Test [code = ZOSTER VACCINE of Me dicine (1 of 2)] Future Scheduled Screening for [employer] Test osteoporosis of Medicine (procedure) [code = 401566663] Future Scheduled PNEUMOVAX >=65 (PPSV23) [facility] [employer] Test [code = PNEUMOVAX >=65 of Me dicine (PPSV23)] Future Scheduled MEDICARE IPPE [facility]COM[facility] TO MEDIC[facility]) [code = of Medi cine MEDICARE IPPE (WELCOME TO MEDICARE)] Future Scheduled FALL SCREEN [code = [employer] FALL SCREEN] of Medicine Future Scheduled FLU VACCINE > 6 MONTHS [employer] [facility] [code = FLU VACCINE > 6 of M edicine MONTHS] Future Scheduled Screening for malignant [facility] [employer] Test neoplasm of breast of Medici ne (procedure) [code = 971735320] Future Scheduled TETANUS SHOT (ADULT) [employer] [facility] [code = TETANUS SHOT of Medi cine (ADULT)] Future Scheduled BMI FOLLOW UP PLAN [employer] Test [code = BMI FOLLOW UP of Med icine PLAN] Future Scheduled Screening for malignant [facility] [employer] Test neoplasm of colon of Medicin e (procedure) [code = 379335117] Future Scheduled TETANUS SHOT (ADULT) [employer] Test [code = TETANUS SHOT of Medi cine (ADULT)] Future Scheduled COVID-19 Vaccine (1) [employer] [facility] [code = COVID-19 of Medicine Vaccine (1)] Future Scheduled BMI FOLLOW UP PLAN [employer] Test [code = BMI FOLLOW UP of Med icine PLAN] Future Scheduled HEPATITIS C SCREENING [employer] [facility] [code = HEPATITIS C of Medic ine SCREENING] Future Scheduled Hepatitis C screening [employer] [facility] (procedure) [code = of Medic ine 434969584] Future Scheduled ZOSTER VACCINE (1 of 2) [facility] [employer] Test [code = ZOSTER VACCINE of Me dicine (1 of 2)] Future Scheduled Screening for [employer] [facility] osteoporosis of Medicine (procedure) [code = 212553782] Future Scheduled PNEUMOVAX >=65 (PPSV23) [facility] [employer] Test [code = PNEUMOVAX >=65 of Me dicine (PPSV23)] Future Scheduled MEDICARE IPPE [facility]COME [facility] TO MEDICARE) [code = of Medi cine MEDICARE IPPE (WELCOME TO MEDICARE)] Future Scheduled FALL SCREEN [code = [employer] FALL SCREEN] of Medicine Future Scheduled FLU VACCINE > 6 MONTHS [facility] [code = FLU VACCINE > 6 of M edicine MONTHS] Future Scheduled Screening for malignant [facility] [employer] Test neoplasm of breast of Medici ne (procedure) [code = 239504279] Future Scheduled FALL SCREEN [code = [employer] FALL SCREEN] of Medicine Future Scheduled O[facility]OROSIS [facility]CREENING [facility] [code = OSTEOPOROSIS of Medi cine SCREENING] Future Scheduled PNEUMOVAX >=65 (PPSV23) [facility] [employer] Test [code = PNEUMOVAX >=65 of Me dicine (PPSV23)] Future Scheduled PREVNAR >= 65 (PCV13) [employer] Test [code = PREVNAR >= 65 of Med icine (PCV13)] Future Scheduled FLU VACCINE > 6 MONTHS [employer] Test [code = FLU VACCINE > 6 of M edicine MONTHS] Future Scheduled CBC W/AUTO DIFF WITH Ordered: [facility] Test PLATELETS [code = 11/08/2019 of Medicin e 19007-8] Future Scheduled COMPREHENSIVE METABOLIC Ordered: [facility] Test PANEL [code = 32377-7] 11/08/2019 of Me dicine Future Scheduled MAGNESIUM [code = Ordered: [facility] Test 55056-9] 11/08/2019 of Medicine Future Scheduled COLON CANCER SCREENING: [facility] Test COLONOSCOPY [code = of Medic ine COLON CANCER SCREENING: COLONOSCOPY] Future Scheduled MAMMOGRAM ANNUAL [code [employer] [facility] = MAMMOGRAM ANNUAL] of Medic ine Future Scheduled TETANUS SHOT (ADULT) [employer] [facility] [code = TETANUS SHOT [...] cine SCREENING] Future Scheduled PNEUMOVAX >=65 (PPSV23) [facility] [employer] Test [code = PNEUMOVAX >=65 of Me dicine (PPSV23)] Future Scheduled PREVNAR >= 65 (PCV13) [employer] Test [code = PREVNAR >= 65 of Med icine (PCV13)] Future Scheduled FLU VACCINE > 6 MONTHS [employer] Test [code = FLU VACCINE > 6 of M edicine MONTHS] Future Scheduled FALL SCREEN [code = [facility] [place] Test FALL SCREEN] of Medicine Future Scheduled CBC W/AUTO DIFF WITH Ordered: [facility] Test PLATELETS [code = 11/22/2019 of Medicin e 10125-9] Future Scheduled COMPREHENSIVE METABOLIC Ordered: [facility] Test PANEL [code = 64096-0] 11/22/2019 of Me dicine Future Scheduled MAGNESIUM [code = Ordered: [facility] Test 08569-6] 11/22/2019 of Medicine Future Scheduled COLON CANCER SCREENING: [facility] Test COLONOSCOPY [code = of Medic ine COLON CANCER SCREENING: COLONOSCOPY] Future Scheduled MAMMOGRAM ANNUAL [code [facility] Test = MAMMOGRAM ANNUAL] of Medic ine Future Scheduled TETANUS SHOT (ADULT) [employer] [facility] [code = TETANUS SHOT [...] cine SCREENING] Future Scheduled PNEUMOVAX >=65 (PPSV23) [facility] [employer] Test [code = PNEUMOVAX >=65 [...] of Medicine Future Scheduled COLON CANCER SCREENING: [facility] [employer] Test COLONOSCOPY [code = of Medic ine COLON CANCER SCREENING: COLONOSCOPY] Future Scheduled MAMMOGRAM ANNUAL [code [employer] [facility] = MAMMOGRAM ANNUAL] of Medic ine Future Scheduled TETANUS SHOT (ADULT) [employer] Test [code = TETANUS SHOT [...] FALL SCREEN] of Medicine Future Scheduled ELECTROCARDIOGRAM [facility] [employer] Test COMPLETE [code = 10513] of ed Future Scheduled COLON CANCER SCREENING: [facility] Test COLONOSCOPY [code = of Medic ine COLON CANCER SCREENING: COLONOSCOPY] Future Scheduled MAMMOGRAM ANNUAL [code [facility] = MAMMOGRAM ANNUAL] of Medic ine Future Scheduled TETANUS SHOT (ADULT) [employer] Test [code = TETANUS SHOT [...] Test FALL SCREEN] of Medicine Future Scheduled [place] MED NUTR THER, 1ST, Ordered: [employer] Test PAULETTE, EA 15 MIN [code 12/14/2019 of Me dicine = 70820] Future Scheduled COLON CANCER SCREENING: [facility] [employer] Test COLONOSCOPY [code = of Medic ine COLON CANCER SCREENING: COLONOSCOPY] Future Scheduled MAMMOGRAM ANNUAL [code [employer] = MAMMOGRAM ANNUAL] of Medic ine Future Scheduled TETANUS SHOT (ADULT) [employer] [code = TETANUS SHOT [...] cine SCREENING] Future Scheduled PNEUMOVAX >=65 (PPSV23) [facility] [employer] Test [code = PNEUMOVAX >=65 [...] of Medicine Future Scheduled COLON CANCER SCREENING: [facility] [employer] Test COLONOSCOPY [code = of Medic ine COLON CANCER SCREENING: COLONOSCOPY] Future Scheduled MAMMOGRAM ANNUAL [code [employer] [facility] = MAMMOGRAM ANNUAL] of Medic ine Future Scheduled TETANUS SHOT (ADULT) [employer] [code = TETANUS SHOT [...] of Medicine Future Scheduled COMPREHENSIVE METABOLIC Ordered: [facility] Test PANEL [code = 58057-4] 10/04/2019 of Me dicine Future Scheduled CBC W/AUTO DIFF WITH Ordered: [employer] PLATELETS [code = 10/04/2019 of Medicin e 58818-1] Future Scheduled COLON CANCER SCREENING: [facility] Test COLONOSCOPY [code = of Medic ine COLON CANCER SCREENING: COLONOSCOPY] Future Scheduled VITAMIN B12 [code = Ordered: [employer] 2132-9] 10/04/2019 of Medicine Future Scheduled MAMMOGRAM ANNUAL [code B [facility] Test = MAMMOGRAM ANNUAL] of Medic ine Future Scheduled TETANUS SHOT (ADULT) [employer] [code = TETANUS SHOT of Medi cine (ADULT)] Future Scheduled BMI FOLLOW UP PLAN [employer] [code = BMI FOLLOW UP of Med icine PLAN] Future Scheduled HEPATITIS C SCREENING [facility] Test [code = HEPATITIS C of Medic ine SCREENING] Future Scheduled OSTEOPOROSIS SCREENING [facility] Test [code = OSTEOPOROSIS of Medi cine SCREENING] Future Scheduled PNEUMOVAX >=65 (PPSV23) [facility] Test [code = PNEUMOVAX >=65 of Me dicine (PPSV23)] Future Scheduled FLU VACCINE > 6 MONTHS [facility] [employer] Test [code = FLU VACCINE > 6 of M edicine MONTHS] Future Scheduled FALL SCREEN [code = [employer] FALL SCREEN] of Medicine Future Scheduled PROTIME-INR [code = Ordered: [employer] Test 5902-2] 10/04/2019 of Medicine Future Scheduled CULTURE, Ordered: [facility] [employer] Test URINE/SENSITIVITY ON 10/04/2019 of Medi cine ALL [code = 94660-7] Future Scheduled COLON CANCER SCREENING: [facility] Test COLONOSCOPY [code = of Medic ine COLON CANCER SCREENING: COLONOSCOPY] Future Scheduled MAMMOGRAM ANNUAL [code [facility] [employer] Test = MAMMOGRAM ANNUAL] of Medic ine Future Scheduled TETANUS SHOT (ADULT) [employer] Test [code = TETANUS SHOT of Medi cine (ADULT)] Future Scheduled COLON CANCER SCREENING: [facility] Test COLONOSCOPY [code = of Medic ine COLON CANCER SCREENING: COLONOSCOPY] Future Scheduled MAMMOGRAM ANNUAL [code [facility] [employer] Test = MAMMOGRAM ANNUAL] of Medic ine Future Scheduled TETANUS SHOT (ADULT) [employer] [code = TETANUS SHOT [...] cine SCREENING] Future Scheduled PNEUMOVAX >=65 (PPSV23) [facility] [employer] Test [code = PNEUMOVAX >=65 [...] cine SCREENING] Future Scheduled PNEUMOVAX >=65 (PPSV23) [facility] [employer] Test [code = PNEUMOVAX >=65 of Me dicine (PPSV23)] Future Scheduled COLON CANCER SCREENING: [facility] [employer] Test COLONOSCOPY [code = of Medic ine COLON CANCER SCREENING: COLONOSCOPY] Future Scheduled MAMMOGRAM ANNUAL [facility]code [facility] = [facility] ANNUAL] of Medic ine Future Scheduled TETANUS SHOT (ADULT) [employer] [code = TETANUS SHOT [...] cine SCREENING] Future Scheduled PNEUMOVAX >=65 (PPSV23) [facility] [employer] Test [code = PNEUMOVAX >=65 [...] Future Scheduled CBC W/AUTO DIFF WITH Ordered: [facility] [employer] Test PLATELETS [code = 02/28/2020 of Medicin e 49645-5] Future Scheduled COMPREHENSIVE METABOLIC Ordered: [facility] Test PANEL [code = 65933-0] 02/28/2020 of Me dicine Future Scheduled MAGNESIUM [code = Ordered: [facility] [employer] Test 17075-3] 02/28/2020 of Medicine Future Scheduled TSH [code = 52834-2] Ordered: [facility] [employer] Test 02/28/2020 of Medicine Future Scheduled COLON CANCER SCREENING: [facility] Test COLONOSCOPY [code = of Medic ine COLON CANCER SCREENING: COLONOSCOPY] Future Scheduled MAMMOGRAM ANNUAL [code [facility] [employer] Test = MAMMOGRAM ANNUAL] of Medic ine Future Scheduled TETANUS SHOT (ADULT) [employer] [code = TETANUS SHOT of Medi cine (ADULT)] Future Scheduled BMI FOLLOW UP PLAN [employer] [code = BMI FOLLOW UP of Med icine PLAN] Future Scheduled HEPATITIS C SCREENING [employer] [facility] [code = HEPATITIS C of Medic ine SCREENING] Future Scheduled ZOSTER VACCINE (1 of 2) [facility] [employer] Test [code = ZOSTER VACCINE of Me dicine (1 of 2)] Future Scheduled [facility]OS[facility]ING [facility] [code = OSTEOPOROSIS of Medi cine SCREENING] Future Scheduled PNEUMOVAX >=65 (PPSV23) [facility] [employer] Test [code = PNEUMOVAX >=65 of Me dicine (PPSV23)] Future Scheduled FLU VACCINE > 6 MONTHS [facility] [code = FLU VACCINE > 6 of M edicine MONTHS] Future Scheduled FALL SCREEN [code = [employer] FALL SCREEN] of Medicine Future Scheduled COLON CANCER SCREENING: [facility] Test COLONOSCOPY [code = of Medic ine COLON CANCER SCREENING: COLONOSCOPY] Future Scheduled MAMMOGRAM ANNUAL [code [facility] [employer] Test = MAMMOGRAM ANNUAL] of Medic ine Future Scheduled TETANUS SHOT (ADULT) [employer] [code = TETANUS SHOT [...] Future Scheduled CBC W/AUTO DIFF WITH Ordered: [employer] PLATELETS [code = 05/15/2020 of Medicin e 35154-7] Future Scheduled BASIC METABOLIC PANEL Ordered: [employer] [code = 98469-5] 05/15/2020 of Medicine Future Scheduled VITAMIN B12 [code = Ordered: [employer] 2132-9] 05/15/2020 of Medicine Future Scheduled COLON CANCER SCREENING: [facility] [employer] Test COLONOSCOPY [code = of Medic ine COLON CANCER SCREENING: COLONOSCOPY] Future Scheduled MAMMOGRAM ANNUAL [code [employer] = MAMMOGRAM ANNUAL] of Medic ine Future Scheduled TETANUS SHOT (ADULT) [employer] [code = TETANUS SHOT of Medi cine (ADULT)] Future Scheduled BMI FOLLOW UP PLAN [employer] Test [code = BMI FOLLOW UP of Med icine PLAN] Future Scheduled HEPATITIS C SCREENING [employer] [facility] [code = HEPATITIS C of Medic ine SCREENING] Future Scheduled ZOSTER VACCINE (1 of 2) [facility] [employer] Test [code = ZOSTER VACCINE of Me dicine (1 of 2)] Future Scheduled OSTEOPOROSIS SCREENING [employer] [code = OSTEOPOROSIS of Medi cine SCREENING] Future Scheduled PNEUMOVAX >=65 (PPSV23) [facility] [employer] Test [code = PNEUMOVAX >=65 [...] of Medicine Future Scheduled COLON CANCER SCREENING: [facility] [employer] Test COLONOSCOPY [code = of Medic ine COLON CANCER SCREENING: COLONOSCOPY] Future Scheduled MAMMOGRAM ANNUAL [code [employer] = MAMMOGRAM ANNUAL] of Medic ine Future Scheduled TETANUS SHOT (ADULT) [employer] [code = TETANUS SHOT [...] of Medicine Future Scheduled COLON CANCER SCREENING: [facility] [employer] Test COLONOSCOPY [code = of Medic ine COLON CANCER SCREENING: COLONOSCOPY] Future Scheduled MAMMOGRAM ANNUAL [code [employer] = MAMMOGRAM ANNUAL] of Medic ine Future Scheduled TETANUS SHOT (ADULT) [employer] Test [code = TETANUS SHOT of Medi cine (ADULT)] Future Scheduled BMI FOLLOW UP PLAN [employer] Test [code = BMI FOLLOW UP of Med icine PLAN] Future Scheduled HEPATITIS C SCREENING [employer] [facility] [code = HEPATITIS C of Medic ine SCREENING] Future Scheduled ZOSTER VACCINE (1 of 2) [facility] [employer] Test [code = ZOSTER VACCINE of Me dicine (1 of 2)] Future Scheduled OSTEOPOROSIS SCREENING [employer] [code = OSTEOPOROSIS of Medi cine SCREENING] Future Scheduled PNEUMOVAX >=65 (PPSV23) [facility] [employer] Test [code = PNEUMOVAX >=65 [...] Future Scheduled CBC W/AUTO DIFF WITH Ordered: [employer] PLATELETS [code = 07/27/2020 of Medicin e 03713-7] Future Scheduled COMPREHENSIVE METABOLIC Ordered: [facility] Test PANEL [code = 21617-1] 07/27/2020 of Me dicine Future Scheduled MAGNESIUM [code = Ordered: [facility] Test 90385-8] 07/27/2020 of Medicine Future Scheduled COLON CANCER SCREENING: [facility] Test COLONOSCOPY [code = of Medic ine COLON CANCER SCREENING: COLONOSCOPY] Future Scheduled COVID-19 Vaccine [facility] Test Evaluation [code = of Medici ne COVID-19 Vaccine Evaluation] Future Scheduled TETANUS SHOT (ADULT) [employer] [code = TETANUS SHOT of Medi cine (ADULT)] Future Scheduled HEPATITIS C SCREENING [employer] [facility] [code = HEPATITIS C of Medic ine SCREENING] Future Scheduled ZOSTER VACCINE (1 of 2) [facility] [employer] Test [code = ZOSTER VACCINE of Me dicine (1 of 2)] Future Scheduled OSTEOPOROSIS SCREENING [employer] [code = OSTEOPOROSIS of Medi cine SCREENING] Future Scheduled PNEUMOVAX >=65 (PPSV23) [facility] [employer] Test [code = PNEUMOVAX >=65 of Me dicine (PPSV23)] Future Scheduled FLU VACCINE > 6 MONTHS [employer] [facility] [code = FLU VACCINE > 6 of M edicine MONTHS] Future Scheduled MEDICARE IPPE [facility]) [code = of Medi cine MEDICARE IPPE (WELCOME TO MEDICARE)] Future Scheduled FALL SCREEN [code = [employer] FALL SCREEN] of Medicine Future Scheduled MAMMOGRAM ANNUAL [code [facility] = MAMMOGRAM ANNUAL] of Medic ine Future Scheduled COLON CANCER SCREENING: [facility] Test COLONOSCOPY [code = of Medic ine COLON CANCER SCREENING: COLONOSCOPY] Future Scheduled COVID-19 Vaccine [facility] Test Evaluation [code = of Medici ne COVID-19 Vaccine Evaluation] Future Scheduled TETANUS SHOT (ADULT) [employer] Test [code = TETANUS SHOT of Medi cine (ADULT)] Future Scheduled HEPATITIS C SCREENING [employer] [facility] [code = HEPATITIS C of Medic ine SCREENING] Future Scheduled ZOSTER VACCINE (1 of 2) [facility] [employer] Test [code = ZOSTER VACCINE of Me dicine (1 of 2)] Future Scheduled OSTEOPOROSIS SCREENING [employer] [code = OSTEOPOROSIS of Medi cine SCREENING] Future Scheduled PNEUMOVAX >=65 (PPSV23) [facility] [employer] Test [code = PNEUMOVAX >=65 [...] Medicine Future Scheduled MAMMOGRAM ANNUAL [code [facility] = MAMMOGRAM ANNUAL] of Medic ine Future Scheduled COLON CANCER SCREENING: [facility] Test COLONOSCOPY [code = of Medic ine COLON CANCER SCREENING: COLONOSCOPY] Future Scheduled COVID-19 Vaccine [facility] Test Evaluation [code = of Medici ne COVID-19 Vaccine Evaluation] Future Scheduled TETANUS SHOT (ADULT) [facility] [employer] Test [code = TETANUS SHOT of Medi cine (ADULT)] Future Scheduled HEPATITIS C SCREENING [facility] Test [code = HEPATITIS C of Medic ine SCREENING] Future Scheduled ZOSTER VACCINE (1 of 2) [facility] [employer] Test [code = ZOSTER VACCINE of Me dicine (1 of 2)] Future Scheduled OSTEOPOROSIS SCREENING [facility] [employer] Test [code = OSTEOPOROSIS of Medi cine SCREENING] Future Scheduled PNEUMOVAX >=65 (PPSV23) [facility] [employer] Test [code = PNEUMOVAX >=65 of Me dicine (PPSV23)] Future Scheduled MEDICARE IPPE (WELCOME [employer] TO MEDICARE) [code = of Medi cine MEDICARE IPPE (WELCOME TO MEDICARE)] Future Scheduled FALL SCREEN [code = [employer] FALL SCREEN] of Medicine Future Scheduled MAMMOGRAM ANNUAL [code [facility] = MAMMOGRAM ANNUAL] of Medic ine Future Scheduled CT CHEST ABDOMEN PELVIS 1 Occurrences [facility] [employer] Test W CONTRAST [code = [place] [address]-1] 10/26/2020 until 10/26/2021 Future Scheduled US RENAL BILATERAL 1 Occurrences [employer] Test [code = 21599] starting of Medicine 05/15/2020 until 05/15/[address] CHEST ABDOMEN PELVIS 1 Occurrences [employer] Test W CONTRAST [code = [place] [address]-4] 04/27/2020 until 04/27/[address] CHEST ABDOMEN PELVIS 1 Occurrences [employer] Test W CONTRAST [code = [place] [address]-5] 02/28/2020 until 02/27/2021 Encounters Start End Encounter Admission Attending Care Care Encounter Source Date/Time Date/Time Type Type Clinicians Facility Department ID 2021-12-03 Outpatient ANGIE [facility] [id number] [place] 08:10:22 [facility] [id number] [facility] 2021-11-28 Outpatient [facility] [id number] [place] 15:34:[id number] [place] [address] 2021-11-06 Outpatient ANGIE [facility] [id number] [place] 09:16:04 [facility] [id number] [facility] 2021-11-05 Outpatient ANGIE [facility] [id number] [place] 07:47:43 [facility] [id number] [facility] 2021-10-30 Outpatient ANGIE [facility] [id number] [place] 15:17:39 [facility] [id number] [facility] 2021-08-16 Outpatient ANGIE [facility] [id number] [place] 15:22:59 [facility] 2021-08-14 Outpatient Oliver, STLMLC [facility] [id number] [facility] 11:01:33 Juan R [address] [facility] 2021-04-23 Inpatient FIONA, SLE Surgery [id number] [facility] 22:51:01 [place] 2021-04-23 Outpatient FIONA, SLEH Surgery [id number] [facility] 21:51:43 [place] 2022-07-22 2022-07-22 Outpatient BIRD PALENCIA SLE SLE [id number] [facility] 00:00:00 00:00:00 2022-07-22 2022-07-22 Outpatient BIRD PALENCIA SLE [facility] [id number] [facility] 00:00:00 00:00:00 2022-07-21 2022-07-21 Outpatient BIRD PALENCIA SLEH SLEH [id number] [facility] 00:00:00 00:00:00 2022-07-21 2022-07-21 Outpatient BIRD PALENCIA SLEH SLEH [id number] [facility] 00:00:00 00:00:00 2022-04-30 2022-04-30 Outpatient DOMENIC DOMENIC [id number] [facility] 15:15:00 15:15:00 31 lillian Ryder 2022-04-30 2022-04-30 Outpatient IE DOMENIC [id number] [facility] 15:15:00 15:15:00 31 lillian Ryder 2022-03-28 2022-03-28 Outpatient [facility] [id number] [facility] 00:00:00 23:59:00 Colleg [facility]nel[facility] of Medicin e 2022-03-19 2022-03-19 Outpatient MHIE BROOKLYN [id number] Memoria 14:30:00 14:30:00 30 lillian Ryder 2022-03-19 2022-03-19 Outpatient BROOKLYN BROOKLYN [id number] [facility]oria 14:30:00 14:30:00 30 lillian Disputanta 2022-03-18 2022-03-18 Outpatient MILAN FRANCES YENCASI [facility] SLE [id number] SLEH 14:17:42 23:59:00 2022-03-18 2022-03-18 [facility] Jovanifiliberto FrancesCasi [facility] [id number] [facility] [address] 11:00:00 23:59:00 Encounter [facility] 2022-03-18 2022-03-18 [facility] Farshad FrancesCasi [facility] [id number] 11:00:00 23:59:00 Encounter [facility] 2022-03-18 2022-03-18 Surgery [facility], [facility] [id number] 11:00:00 11:30:00 [facility] 2022-03-18 2022-03-18 Surgery Virtual, [facility] [id number] 11:00:00 11:30:00 [facility] 2022-03-18 2022-03-18 [facility] Farshad FrancesCasi [facility] [id number] 09:02:00 11:10:00 Encounter [facility] 2022-03-18 2022-03-18 Outpatient FARSHAD [facility]ANC[facility]AA [facility] [id number] SLE 09:02:00 11:10:00 2022-03-18 2022-03-18 [facility] Bird Yen [facility] [id number] [id number] 09:02:00 11:10:00 Encounter [facility] 2022-02-18 2022-02-18 Office FIONALANSaul 1.2.840.114 [id number] [facility] 13:31:03 16:12:27 Visit VITA AMBULATOR 350.1.13.21 College Y 0.2.7.2.686 of [id number] [facility] khushi 300 e 2022-02-17 2022-02-[address] [facility] [id number] 00:00:00 00:00:[address] [facility] 2022-02-17 2022-02-17 [facility] Ralph YenKishore [facility] [id number] 00:00:00 00:00:[address] [facility] 2022-02-14 2022-02-14 Outpatient [facility] [id number] [facility] 13:12:45 23:59:00 Colleg e of Medicin e 2022-02-14 2022-02-14 Office OMAR YEN [facility] [id number] [facility] 10:42:48 12:25:10 Visit Seymour 350.1.13.21 Co llege 0.2.7.2.686 of [id number] [facility] khushi 504 e 2022-02-05 2022-02-05 Outpatient MHIE MHIE [id number] Memoria 14:00:00 14:00:00 29 l Aleksey 2022-02-05 2022-02-05 Outpatient MHIE MHIE [id number] [facility]oria 14:00:00 14:00:00 29 l Disputanta 2022-02-04 2022-02-04 [facility] iBrd Yen [facility] [id number] 10:31:06 23:59:00 Encounter 1, [facility] Seymour [facility] 2022-02-04 2022-02-04 Outpatient BIRD PALENCIA SLE SLE [id number] SLEH 10:31:06 23:59:00 2022-02-04 2022-02-04 [facility] Bird Yen [facility] [id number] 10:31:06 23:59:00 [facility] 2022-02-04 2022-02-04 [facility] [id number] 10:30:58 10:30:58 [facility] 2022-02-04 2022-02-04 Outpatient BIRD PALENCIA SLE SLE [id number] SLEH 10:30:58 10:30:58 2022-02-04 2022-02-04 [facility] Bird Yen [facility] [id number] 10:30:58 10:30:58 [facility] 2021-12-27 2021-12-27 Outpatient [facility] [id number] [facility] 08:52:58 23:59:00 Colleg e of Medicin e 2021-12-25 2021-12-25 Outpatient IE DOMENIC [id number] Memoria 14:00:00 14:00:00 28 lillian Ryder 2021-12-25 2021-12-25 Outpatient DOMENIC BARAHONA [id number] [facility]oria 14:00:00 14:00:00 28 lillian Ryder 2021-11-15 2021-11-15 Outpatient [facility] [id number] [facility] 09:45:31 23:59:00 Colleg e of Medicin e 2021-11-15 2021-11-15 Office [facility] [id number] [id number] [facility] 10:23:51 11:26:45 Visit Seymour 350.1.13.21 Co llege 0.2.7.2.686 of [id number] Medi khushi 504 e 2021-11-15 2021-11-[address] [facility] [id number] 00:00:00 00:00:[address] [facility] 2021-11-15 2021-11-15 [facility] Bird Yen [facility] [id number] 00:00:00 00:00:[address] [facility] 2021-10-29 2021-10-29 [facility] Bird Yen [facility] [id number] 12:33:36 23:59:00 Encounter [facility] 2021-10-29 2021-10-29 Outpatient BIRD PALENCIA SLEJuanjose SLEH [id number] SLEH 12:33:36 23:59:00 2021-10-29 2021-10-[address] [facility] [id number] [id number] 12:33:36 23:59:00 Encounter [facility] 2021-10-29 2021-10-[address] [facility] [facility] [id number] [id number] 12:33:25 23:59:00 Encounter [facility] 2021-10-29 2021-10-29 Outpatient BIRD PALENCIA SLEJuanjose SLEH [id number] SLEH 12:33:25 23:59:00 2021-10-29 2021-10-29 [facility] [id number] 12:33:25 23:59:00 Encounter [facility] 2021-10-22 2021-10-22 Outpatient BIRD PALENCIA SLEH SLEH [id number] [facility] 00:00:00 00:00:00 2021-10-22 2021-10-22 Outpatient BIRD PALENCIA SLEH SLEH [id number] [facility] 00:00:00 00:00:00 2021-10-04 2021-10-04 Outpatient [facility] [id number] [place] [address] 09:51:39 23:59:00 Colleg [facility] Medicin e 2021-09-24 2021-09-24 Outpatient MHIE ELMIRAIE [id number] Memoria 10:15:00 10:15:00 27 l Aleksey 2021-09-24 2021-09-24 Outpatient MHIE MHIE [id number] [facility]oria 10:15:00 10:15:00 27 l Aleksey 2021-09-17 2021-09-17 Office GUILLERMINA POOLE 1.2.840.114 [id number] [facility] 14:01:28 15:17:27 Visit CHRISTOPHER AMBULATOR 350.1.13.21 College Y 0.2.7.2.686 of [id number] Medi khushi 300 e 2021-08-22 2021-08-[address] [facility] [id number] 00:00:00 00:00:[address] [facility] 2021-08-22 2021-08-[address] [facility] [id number] 00:00:00 00:00:[address] [facility] 2021-08-16 2021-08-16 Outpatient [facility] [id number] [facility] 11:25:49 23:59:00 Colleg e of Medicin e 2021-08-16 2021-08-16 Office [facility] 1.2.840.114 [id number] [facility] 09:51:36 11:22:06 Visit Seymour 350.1.13.21 Co llege 0.2.7.2.686 of [id number] Medi khushi 504 e 2021-08-14 2021-08-14 Outpatient MHIE ELMIRAIE [id number] Memoria 16:00:00 16:00:00 26 l Aleksey 2021-08-14 2021-08-14 Outpatient MHIE MHIE [id number] [facility]oria 16:00:00 16:00:00 26 l Aleksey 2021-08-08 2021-08-08 Office GUILLERMINA JAIMES 1.2.840.114 [id number] [facility] 10:37:20 11:15:47 Visit VITA AMBULATOR 350.1.13.21 College Y 0.2.7.2.686 [id number] Medi khushi 300 e 2021-07-29 2021-07-29 [facility] Bird Yen [facility] [id number] 12:33:58 23:59:00 Encounter 1, [facility] [address] Room [facility] 2021-07-29 2021-07-29 Outpatient BIRD PALENCIA SLE SLE [id number] SLEH 12:33:58 23:59:00 2021-07-29 2021-07-29 [facility] [id number] 12:33:58 23:59:00 [facility] 2021-07-29 2021-07-29 [facility] [id number] 12:33:51 23:59:00 Encounter 1, [facility] [address] Room [facility] 2021-07-29 2021-07-29 Outpatient BIRD PALENCIA [facility] SLE [id number] SLEH 12:33:51 23:59:00 2021-07-29 2021-07-29 [facility] [id number] 12:33:51 23:59:00 Encounter 1, [facility] [address] Room [facility] 2021-07-04 2021-07-04 Ambulatory nullFlavo MNA [id number] Memoria 20:00:00 20:00:00 Pre-Reg r Neurology 25 l Rhiannon Ryder 2021-07-04 2021-07-04 Ambulatory nullFlavo MNA [id number] Memoria 20:00:00 20:00:00 Pre-Reg r Neurology 25 l Rhiannon Ryder 2021-07-04 2021-07-04 Outpatient BROOKLYN KU [id number] Memoria 14:00:00 14:00:00 25 l Aleksey 2021-07-04 2021-07-04 Outpatient LUISA Campos YANCY [id number] 14:00:00 14:00:00 Michael 25 Isaiah 2021-06-26 2021-06-26 Outpatient ALEC MOSER [facility] [id number] [facility] 14:30:00 14:30:00 [facility] 2021-05-23 2021-05-24 Outpatient nullFlavo MNA [id number] Memoria 15:15:00 04:59:59 r Neurology 24 l Rhiannon Smithann 2021-05-23 2021-05-24 Outpatient nullFlavo MNA [id number] Memoria 15:15:00 04:59:59 r Neurology 24 l Rhiannon Smithann 2021-05-23 2021-05-23 Outpatient LUISA Campos MARLASCHER [id number] 10:15:00 23:59:59 Michael 24 Isaiah 2021-05-23 2021-05-23 Outpatient MHIE ELMIRAIE [id number] Memoria 10:15:00 10:15:00 24 l Aleksey 2021-05-10 2021-05-[address] [facility] [id number] [facility] 00:00:00 00:00:00 [facility] 2021-05-08 2021-05-08 Ambulatory nullFlavo MNA [id number] Memoria 19:15:00 19:15:00 Pre-Reg r Neurology 23 l Rhiannon Smithann 2021-05-08 2021-05-08 Ambulatory nullFlavo MNA [id number] Memoria 19:15:00 19:15:00 Pre-Reg r Neurology 23 [place] Aleksey 2021-05-08 2021-05-08 Outpatient MHIE MHIE [id number] Memoria 14:15:00 14:15:00 23 l [place] 2021-05-08 2021-05-08 Outpatient LUISA Campos MARLASCHER [id number] 14:15:00 14:15:00 Michael 23 Isaiah 2021-05-07 2021-05-07 Outpatient [facility] [id number] [address] [place] [address] 15:09:13 23:59:00 Colleg e of Medicin e 2021-05-07 2021-05-07 Office OMAR YEN [facility] 1.2.840.114 [id number] [facility] 14:13:49 16:00:26 Visit Seymour 350.1.13.21 Co llege 0.2.7.2.686 of [id number] [facility] khushi 504 e 2021-05-03 2021-05-03 Outpatient BIRD PALENCIA [facility] [id number] [facility] 10:46:33 23:59:00 2021-05-03 2021-05-03 [facility] Ralph YenKishore [facility] [id number] [facility] 10:46:33 23:59:00 Encounter [facility] 2021-05-03 2021-05-03 Outpatient BIRD PALENCIA [facility] SLE [id number] SLE 10:46:26 23:59:00 2021-05-03 2021-05-03 [facility] Bird Yen [facility] [id number] 10:46:26 23:59:00 Encounter [facility] 2021-04-05 2021-04-05 [facility] Bird Yen [facility] [id number] 00:00:00 00:00:[address] [facility] 2021-03-19 2021-03-19 Outpatient [facility] [id number] [facility] 14:16:56 23:59:00 Colleg e of Medicin e 2021-03-13 2021-03-14 Outpatient nullFlavo MNA [id number] Memoria 20:00:00 04:59:59 r Neurology 21 l Rhiannon Ryder 2021-03-13 2021-03-14 Outpatient nullFlavo MNA [id number] Memoria 20:00:00 04:59:59 r Neurology 21 l Rhiannon Ryder 2021-03-13 2021-03-13 Outpatient LUISA CamposARSCHCARLOS [id number] 15:00:00 23:59:59 Michael Colon 2021-03-13 2021-03-13 Outpatient MHIE MHIE [id number] Memoria 15:00:00 15:00:00 21 l Aleksey 2021-02-01 2021-02-02 Outpatient nullFlavo MNA [id number] Memoria 16:30:00 04:59:59 r Neurology 22 l Rhiannon Ryder 2021-02-01 2021-02-02 Outpatient nullFlavo MNA [id number] Memoria 16:30:00 04:59:59 r Neurology 22 l Rhiannon Ryder 2021-02-01 2021-02-01 [facility] [id number] 11:30:00 23:59:59 Michael 22 Isaiah 2021-02-01 2021-02-01 Outpatient MHIE MHIE [id number] Memoria 11:30:00 11:30:00 22 l Aleksey 2021-01-29 2021-01-29 Outpatient BCM [facility] [id number] [facility] 13:53:55 23:59:00 Colleg e of Medicin e 2021-01-29 2021-01-29 Office FarshadFranceshortenciacurtis [facility] 1.2.840.114 [id number] [facility] 12:18:28 14:06:37 Visit Eyad Ahuja 350.1.13.21 Co llege 0.2.7.2.686 of 924.6998912 Medi khushi 530 e 2021-01-29 2021-01-29 Office GUILLERMINA Jaimes 1.2.840.114 [id number] [facility] 13:10:51 13:25:51 Visit Vita P AMBULATOR 350.1.13.21 College Y 0.2.7.2.686 of 244.8719917 Medi khushi 300 e 2021-01-18 2021-01-18 Outpatient BIRD YEN SLEJuanjose SLE [id number] SLEH 00:00:00 00:00:00 2021-01-18 2021-01-18 Outpatient EL RALPH YENKISHORE SLEJuanjose SLE [id number] SLEH 00:00:00 00:00:00 2021-01-09 2021-01-10 Outpatient nullFlavo MNA [id number] Memoria 14:30:00 04:59:59 r Neurology 20 l Rhiannon Ryder 2021-01-09 2021-01-10 Outpatient nullFlavo MNA [id number] Memoria 14:30:00 04:59:59 r Neurology 20 l Rhiannon Ryder 2021-01-09 2021-01-09 Outpatient [facility] [id number] 09:30:00 23:59:59 Michael 20 Isaiah 2021-01-09 2021-01-09 Outpatient IE [facility] [id number] Memoria 09:30:00 09:30:00 20 l Aleksey 2020-12-18 2020-12-18 Office GUILLERMINA Poole 1.2.840.[id number] [place] [address] 14:58:39 15:08:39 Visit Christopher AMBULATOR 350.1.13.21 College P Y 0.2.7.2.686 of [id number] Medi khushi 300 e 2020-12-18 2020-12-18 Outpatient [facility] [id number] SLE 00:00:00 00:00:00 2020-12-18 2020-12-18 Outpatient BIRD YEN SLE [id number] SLE 00:00:00 00:00:00 2020-12-18 2020-12-18 Outpatient BIRD PALENCIA SLEH [id number] SLE 00:00:00 00:00:00 2020-11-15 2020-11-15 Office GUILLERMINA Poole 1.2.840.[id number] [place] [address] 10:12:07 10:22:07 Visit Christopher AMBULATOR 350.1.13.21 College P Y 0.2.7.2.686 of [id number] Medi khushi 300 e 2020-11-06 2020-11-07 Outpatient nullFlavo MNA [id number] Memoria 19:15:00 04:59:59 r Neurology 19 l [place] Ale[place] 2020-11-06 2020-11-07 Outpatient nullFlavo MNA [id number] Memoria 19:15:00 04:59:59 r Neurology 19 l [place] Ryder 2020-11-06 2020-11-06 Outpatient LUISA Campos YANCY [id number] 14:15:00 23:59:59 Michael Rodolfo Colon 2020-11-06 2020-11-06 Outpatient BROOKLYN BARAHONA [id number] [facility] 14:15:00 14:15:00 19 l Aleksey 2020-10-26 2020-10-26 Office Omar Yen [facility] 1.2.840.114 [id number] [facility] 11:30:32 13:39:35 Visit Eyad Chadwickr 350.1.13.21 Co llege 0.2.7.2.686 of [id number] [facility] khushi 530 e 2020-10-05 2020-10-05 Orders Doctor MANNY 1.2.840.114 [id number] Univers 00:00:00 00:00:00 Only Unassigned, JORGE LUIS 350.1.13.10 ity of Richards [facility] 4.2.7.2.686 Jan as [phone] [facility] 009 [address] 2020-10-05 2020-10-05 Orders Doctor MANNY 1.2.840.114 [id number] 00:00:00 00:00:00 Only Unassigned, JORGE LUIS 350.1.13.10 Richards [facility] 4.2.7.2.686 [id number] 009 2020-10-04 2020-10-04 Office GUILLERMINA Jaimes 1.2.840.114 [id number] 40 [facility] 10:09:01 10:24:01 Visit Vita Rudy AMBULATOR 350.1.13.21 College Y 0.2.7.2.686 of 215.8369172 Medi khushi 300 e 2020-10-04 2020-10-04 Office GUILLERMINA Poole 1.2.840.114 [id number] 39 [facility] 10:08:44 10:18:44 Visit Adolpher AMBULATOR 350.1.13.21 College P Y 0.2.7.2.686 of 300.5289515 [facility] khushi 300 e 2020-10-04 2020-10-04 Outpatient BIRD PALENCIA [facility] SLE [id number] [facility] 00:00:00 00:00:00 2020-10-04 2020-10-[address] [facility] [id number] [facility] 00:00:00 00:00:00 2020-09-24 2020-09-26 Outside nullFlavo MNA [id number] Memoria 16:19:27 05:59:59 Medical r Neurology 04 l Records Rhiannon Ryder 2020-09-24 2020-09-26 Outside nullFlavo MNA [id number] Memoria 16:19:27 05:59:59 Medical r Neurology 04 l Records Rhiannon Ryder 2020-09-24 2020-09-25 Outpatient MISCHER MISCHER [id number] 10:19:27 23:59:59 04 2020-09-11 2020-09-13 Outside nullFlavo MNA [id number] Memoria 20:49:36 05:59:59 Medical r Neurology 03 l Records Rhiannon Ryder 2020-09-11 2020-09-13 Outside nullFlavo MNA [id number] Memoria 20:49:36 05:59:59 Medical r Neurology 03 l Records Rhiannon Ryder 2020-09-11 2020-09-12 [id number] 14:49:36 23:59:59 03 2020-09-07 2020-09-07 Office GUILLERMINA Poole 1.2.840.[id number] [place] [address] 14:53:39 15:03:39 Visit Clayton AMBULATOR 350.1.13.21 [place] P Y 0.2.7.2.686 [facility] [id number] Medi khushi 300 e 2020-09-05 2020-09-06 Outpatient nullFlavo MNA [id number] Memoria 19:15:00 05:59:59 r Neurology 18 l Rhiannon Smithann 2020-09-05 2020-09-06 Outpatient nullFlavo MNA [id number] Memoria 19:15:00 05:59:59 r Neurology 18 l [place] 2020-09-05 2020-09-05 Outpatient LUISA Campos MISCHER [id number] 13:15:00 23:59:59 Michael 18 Isaiah 2020-09-05 2020-09-05 Ambulatory nullFlavo MNA [id number] Memoria 19:15:00 19:15:00 Pre-Reg r Neurology 17 l Rhiannon Ryder 2020-09-05 2020-09-05 Ambulatory nullFlavo MNA [id number] Memoria 19:15:00 19:15:00 Pre-Reg r Neurology 17 l Rhiannon Ryder 2020-09-05 2020-09-05 Outpatient MHIE MHIE [id number] Memoria 13:15:00 13:15:00 17 l Aleksey 2020-09-05 2020-09-05 Outpatient MHIE MHIE [id number] Memoria 13:15:00 13:15:00 18 lillian Ryder 2020-09-05 2020-09-05 Outpatient Andres MISCHER MHMISCHER [id number] 13:15:00 13:15:00 Michael 17 Isaiah 2020-08-07 2020-08-09 Outside nullFlavo MNA [id number] Memoria 17:59:06 05:59:59 Medical r Neurology 02 l Records Rhiannon Ryder 2020-08-07 2020-08-09 Outside nullFlavo MNA [id number] Memoria 17:59:06 05:59:59 Medical r Neurology 02 l Records Rhiannon Ryder 2020-08-07 2020-08-08 Outpatient MHMISCHER MHMISCHER [id number] 11:59:06 23:59:59 02 2020-08-03 2020-08-03 Ticket Taker 2, [facility] [place] 1.2.840.[id number] [facility] 13:07:52 13:22:52 Visit Alec Foss [place] 350.1.13.10 [place].2.[place] [phone] [address] 2020-08-03 2020-08-03 Ticket Taker 2, Adc Lab [facility] 1.2.840.114 [id number] 13:07:52 13:22:52 Visit Wesley 350.1.13.10 [place] 4.2.7.2.686 Professio [phone] nal 353 Building 2020-08-03 2020-08-03 Outpatient R ALEC FOSS [facility] [id number] Univers 13:00:00 13:00:00 ity of [facility] 2020-08-02 2020-08-02 Office GUILLERMINA Jaimes 1.2.840.114 [id number] 14 [facility] 09:42:31 09:57:31 Visit Vita Grant AMBULATOR 350.1.13.21 College Y 0.2.7.2.686 of 275.7782814 [facility] khushi 300 e 2020-07-27 2020-07-27 Office Omar Yen [facility] 1.2.840.114 [id number] [facility] 11:15:40 12:55:05 Visit Eyad Ahuja 350.1.13.21 Co llege 0.2.7.2.686 of 942.7495761 [facility] khushi 530 e 2020-07-25 2020-07-26 Outpatient nullFlavo MNA [id number] Memoria 17:15:00 05:59:59 r Neurology 16 l [place] 2020-07-25 2020-07-26 Outpatient nullFlavo MNA [id number] Memoria 17:15:00 05:59:59 r Neurology 16 l [place] 2020-07-25 2020-07-25 Outpatient LUISA CamposMISCHCARLOS [id number] 11:15:00 23:59:59 Michael 16 Isaiah 2020-07-25 2020-07-25 Outpatient MHIE MHIE [id number] Memoria 11:15:00 11:15:00 16 l [place] 2020-07-19 2020-07-19 [facility] Alec Foss [facility] 1.2.840.[id number] [facility] 10:46:59 23:59:00 Encounter [place] 350.1.13.10 ity charito Boateng 4.2.7.2.686 [facility] [id number] [facility] [address] [place] 2020-07-19 2020-07-19 [facility] Alec Foss [facility] 1.2.840.114 [id number] 10:46:59 23:59:00 Encounter [place] 350.1.13.10 [place] 4.2.7.2.686 Panther [id number] 806 2020-07-19 2020-07-19 [facility] Alec Foss [facility] 1.2.840.[id number] [facility] 10:45:33 10:45:33 Encounter [place] 350.1.13.10 ity of [place] 4.2.7.2.686 [facility] [id number] [facility] [address] 2020-07-19 2020-07-19 [facility] Alec Foss [facility] 1.2.840.114 [id number] 10:45:33 10:45:33 Encounter [place] 350.1.13.10 [place] 4.2.7.2.686 Panther [id number] [facility] 2020-07-19 2020-07-19 [facility] Alec Foss [facility] 1.2.840.[id number] [facility] 10:45:01 10:45:01 Encounter [place] 350.1.13.10 ity of [place] 4.2.7.2.686 [facility] [id number] [facility] [address] [place] 2020-07-19 2020-07-19 [facility] Alec Foss [facility] 1.2.840.114 [id number] 10:45:01 10:45:01 Encounter [place] 350.1.13.10 [place] 4.2.7.2.686 Panther [id number] [facility] 2020-07-19 2020-07-19 Outpatient R ALEC FOSS [facility] [id number] Univers 00:00:00 00:00:00 ity of [facility] 2020-07-19 2020-07-19 Orders Doctor BRYANT 1.2.840.114 [id number] Univers 00:00:00 00:00:00 Only Unassigned, JORGE LUIS 350.1.13.10 ity of [place] [facility] 4.2.7.2.686 Jan [id number] [address] 2020-07-19 2020-07-19 Orders Doctor BRYANT 1.2.840.114 [id number] 00:00:00 00:00:00 Only Unassigned, JORGE LUIS 350.1.13.10 [facility] 4.2.7.2.686 [id number] 009 2020-07-17 2020-07-17 Outpatient BIRD YEN SLEJuanjose [facility] [id number] [facility] 00:00:00 00:00:00 2020-07-17 2020-07-17 Outpatient EL BIRD YEN SLEJuanjose [facility] [id number] [facility] 00:00:00 00:00:00 2020-06-25 2020-06-25 Outpatient Bartolo PIPOYONASN [facility] [id number] Univers 14:00:00 14:00:00 ity of [facility] 2020-06-25 2020-06-25 Orders Doctor MANNY 1.2.840.114 [id number] Univers 00:00:00 00:00:00 Only Unassigned, JORGE LUIS 350.1.13.10 ity [place] [facility] 4.2.7.2.686 Jan as [phone] [address] 2020-06-25 2020-06-25 Orders Doctor MANNY 1.2.840.114 [id number] 00:00:00 00:00:00 Only Unassigned, JORGE LUIS 350.1.13.10 Richards [facility] 4.2.7.2.686 [id number] 009 2020-06-21 2020-06-22 Outpatient nullFlavo MNA [id number] Memoria 19:45:00 05:59:59 r Neurology 15 l Rhiannon Ryder 2020-06-21 2020-06-22 Outpatient nullFlavo MNA [id number] Memoria 19:45:00 05:59:59 r Neurology 15 l Rhiannon Ryder 2020-06-21 2020-06-21 Outpatient LUISA Campos MHMISCHER [id number] 13:45:00 23:59:59 Michael 15 Isaiah 2020-06-21 2020-06-21 Outpatient MHIE ELMIRAIE [id number] Memoria 13:45:00 13:45:00 15 l Aleksey 2020-06-07 2020-06-07 Office GUILLERMINA Jaimes 1.2.840.[id number] [place] [address] 08:15:55 08:30:55 Visit Vita P AMBULATOR 350.1.13.21 College Y 0.2.7.2.686 of 433.3723086 Medi khushi 300 e 2020-06-07 2020-06-07 Office Fiona, GUILLERMINA 1.2.840.114 [id number] 08:15:55 08:30:55 Visit Vita P AMBULATOR 350.1.13.21 Y 0.2.7.2.686 158.4315589 300 2020-05-15 2020-05-15 Office GUILLERMINA Jaimes 1.2.840.114 [id number] 39 [facility] 14:31:10 15:54:25 Visit Vita P AMBULATOR 350.1.13.21 College Y 0.2.7.2.686 of [id number] [facility] khushi 300 e 2020-05-15 2020-05-15 Office Fiona, GUILLERMINA 1.2.840.114 [id number] 14:31:10 15:54:25 Visit Vita P AMBULATOR 350.1.13.21 Y 0.2.7.2.686 [id number] 300 2020-05-10 2020-05-11 Outpatient nullFlavo MNA [id number] Memoria 18:45:00 04:59:59 r Neurology 14 l Rhiannon Aleksey 2020-05-10 2020-05-11 Outpatient nullFlavo MNA [id number] Memoria 18:45:00 04:59:59 r Neurology 14 l Rhiannon Disputanta 2020-05-10 2020-05-10 Outpatient Andres MHMISCHER MHMISCHER [id number] 13:45:00 23:59:59 Michael 14 Isaiah 2020-05-10 2020-05-10 Outpatient MHIE [facility] [id number] Memoria 13:45:00 13:45:00 14 lillian Aleksey 2020-04-27 2020-04-27 Office Omar Yen [facility] 1.2.840.114 [id number] [facility] 14:24:21 15:32:04 Visit Edward Seymour 350.1.13.21 Co llege 0.2.7.2.686 of 569.1957872 [facility] khushi 530 e 2020-04-27 2020-04-27 Office Omar Yen [facility] 1.2.840.114 [id number] 14:24:21 15:32:04 Visit Edjanine Seymour 350.1.13.21 0.2.7.2.686 [id number] 530 2020-04-25 2020-04-25 Outpatient YEN, AI-KISHORE [facility] [id number] [facility] 00:00:00 00:00:00 2020-04-25 2020-04-25 Outpatient EL YEN, AI-KISHORE [facility] [id number] SLEH 00:00:00 00:00:00 2020-04-05 2020-04-05 Outpatient YEN, AI-KISHORE [facility] [id number] SLEH 00:00:00 00:00:00 2020-04-05 2020-04-05 Outpatient EL YEN, AI-KISHORE [facility] [id number] SLEH 00:00:00 00:00:00 2020-03-27 2020-03-27 Outpatient YEN, AI-KISHORE [facility] [id number] [facility]H 00:00:00 00:00:00 2020-03-27 2020-03-27 Outpatient EL YEN, AI-KISHORE [facility] [id number] [facility]H 00:00:00 00:00:00 2020-03-27 2020-03-27 Outpatient EL YEN, AI-KISHORE [facility] [id number] SLEH 00:00:00 00:00:00 2020-03-27 2020-03-27 Outpatient YEN, AI-KISHORE [facility] [id number] SLEH 00:00:00 00:00:00 2020-02-28 2020-02-28 Office Omar Yen [facility] 1.2.840.114 [id number] [facility] 11:09:47 12:43:20 Visit Edjanine Seymour 350.1.13.21 Co llege 0.2.7.2.686 of 608.0066722 [facility] 530 e 2020-02-28 2020-02-28 Office Omar Yen [facility] 1.2.840.114 [id number] 11:09:47 12:43:20 Visit Edjanine Seymour 350.1.13.21 0.2.7.2.686 [id number] 530 2020-02-21 2020-02-21 Office GUILLERMINA Jaimes 1.2.840.114 [id number] 95 [facility] 15:30:00 15:45:00 Visit Vita P AMBULATOR 350.1.13.21 College Y 0.2.7.2.686 of 058.1861851 Medi khushi 300 e 2020-02-21 2020-02-21 Office GUILLERMINA Jaimes 1.2.840.114 [id number] 15:30:00 15:45:00 Visit Vita P AMBULATOR 350.1.13.21 Y 0.2.7.2.686 [id number] 300 2020-01-27 2020-01-27 Outpatient EL [facility]H SLEH [id number] SLEH 00:00:00 00:00:00 2020-01-17 2020-01-17 Office Alfredo Nestorjamal Parker [facility] 1.2.840. 114 [id number] [facility] 08:19:54 08:49:54 Visit C-Arm, Pmr Siemens AMBULATOR 350.1.13. 21 College Y 0.2.7.2.686 of [id number] [facility] khushi 800 e 2020-01-17 2020-01-17 Office Alfredo Nestorjamal Parker [facility] 1.2.840. 114 [id number] 08:19:54 08:49:54 Visit C-Arm, Pmr Siemens AMBULATOR 350.1.13. 21 Y 0.2.7.2.686 [id number] 800 2020-01-17 2020-01-17 Outpatient EL [facility]H SLEH [id number] SLEH 00:00:00 00:00:00 2020-01-10 2020-01-10 Office Omar Yen [facility] 1.2.840.114 [id number] [facility] 09:17:20 10:09:32 Visit Edward Seymour 350.1.13.21 Co llege 0.2.7.2.686 of 288.5918282 Medi khushi 530 e 2020-01-10 2020-01-10 Office Omar Yen [facility] 1.2.840.114 [id number] 09:17:20 10:09:32 Visit Edward Seymour 350.1.13.21 0.2.7.2.686 [id number] 530 2020-01-06 2020-01-06 Ancillary 1.2.840.3 [id number] 760 16214 [facility] 15:34:38 19:30:50 Procedure 21866.1.1 Co llege 3.210.2.7 of .3.210347 Medici n .8 e 2020-01-06 2020-01-06 Office Giancarlo Doherty 1.2.840.1 [id number] [facility] 12:54:16 17:06:02 Visit 00359.1.1 Shanel ege 3.210.2.7 of .3.994588 Medici n .8 e 2020-01-06 2020-01-06 Office Giancarlo Doherty [facility] 1.2.840.114 [id number] 12:54:16 15:16:58 Visit AMBULATOR 350.1.13.21 Y 0.2.7.2.686 [id number] 800 2020-01-06 2020-01-06 Telephone Omar Yen 1.2.840.3 [id number] [facility] 00:00:00 00:00:00 Edward 99133.1.1 Shanel ege 3.210.2.7 of .3.901659 Medici n .8 e 2020-01-06 2020-01-06 Abstract Giancarlo Doherty 1.2.840.0 [id number] [facility] 00:00:00 00:00:00 06185.1.1 Shanel ege 3.210.2.7 of .3.950398 Medici n .8 e 2020-01-06 2020-01-06 Abstract Giancarlo Doherty 1.2.840.5 [id number] [facility] 00:00:00 00:00:00 14616.1.1 Shanel ege 3.210.2.7 of .3.562231 Medici n .8 e 2020-01-06 2020-01-06 Travel 1.2.840.1 1.2.836.439 5038 5587 [facility] 00:00:00 00:00:00 98615.1.1 350.1.13.21 College 3.210.2.7 0.2.7.3.698 of .3.092022 084.8 Medici n .8 e 2020-01-06 2020-01-06 Telephone Fiona, 1.2.840.7 [id number] 760 74628 [facility] 00:00:00 00:00:00 Vita P 34129.1.1 Shanel ege 3.210.2.7 of .3.991231 Medici n .8 e 2020-01-05 2020-01-05 Telephone Fiona, 1.2.840.5 [id number] 760 96901 [facility] 00:00:00 00:00:00 Vita P 10127.1.1 Shanel ege 3.210.2.7 of .3.488536 Medici n .8 e 2020-01-05 2020-01-05 Orders Fiona, 1.2.840.8 [id number] 524 [facility] 00:00:00 00:00:00 Only Vtia P 90159.1.1 Shanel ege 3.210.2.7 of .3.737005 Medici n .8 e 2020-01-04 2020-01-04 Travel 1.2.840.1 1.2.215.055 6692 2884 [facility] 00:00:00 00:00:00 01827.1.1 350.1.13.21 College 3.210.2.7 0.2.7.3.698 of .3.260866 084.8 Medici n .8 e 2019-12-29 2019-12-29 Abstract Fiona, 1.2.840.5 [id number] [id number] [facility] 00:00:00 00:00:00 Vita P 39528.1.1 Shanel ege 3.210.2.7 of .3.819045 Medici n .8 e 2019-12-29 2019-12-29 Abstract Fiona, 1.2.840.0 [id number] [id number] [facility] 00:00:00 00:00:00 Vita P 87679.1.1 Shanel ege 3.210.2.7 of .3.409027 Medici n .8 e 2019-12-27 2019-12-27 BIRD Rosales [id number] [id number] [facility] 00:00:00 00:00:00 2019-12-27 2019-12-[address] [facility] [id number] [facility] 00:00:00 00:00:00 2019-12-23 2019-12-23 Telephone Frances Yenkishore 1.2.840.4 [id number] [facility] 00:00:00 00:00:00 Edward 87466.1.1 Shanel ege 3.210.2.7 of .3.835817 Medici n .8 e 2019-12-20 2019-12-20 Hospital 13, Bcc 1.2.840.8 [id number] [facility] 09:51:46 23:59:00 Encounter Chair 73174.1.1 Co llege 3.210.2.7 of .3.662186 Medici n .8 e 2019-12-20 2019-12-20 Office Frances Yenkishore 1.2.840.7 [id number] [facility] 08:33:43 10:00:25 Visit Edward 90027.1.1 Shanel ege 3.210.2.7 of .3.727590 Medici n .8 e 2019-12-20 2019-12-20 Travel 1.2.840.1 1.2.470.760 9872 [id number] [facility] 00:00:00 00:00:00 70925.1.1 350.1.13.21 College 3.210.2.7 0.2.7.3.698 of .3.763821 084.8 Medici n .8 e 2019-12-20 2019-12-20 Orders Farshad Omar 1.2.840.3 [id number] [facility] 00:00:00 00:00:00 Only Edward 68009.1.1 Shanel ege 3.210.2.7 of .3.969191 Medici n .8 e 2019-12-19 2019-12-19 Ancillary 1.2.840.4 [id number] [id number] [facility] 07:37:46 10:52:13 Procedure 36669.1.1 Co llege 3.210.2.7 of .3.459689 Medici n .8 e 2019-12-13 2019-12-19 Office [place], 1.2.840.7 [id number] [id number] [facility] 13:53:26 09:40:45 Visit Shun 08563.1.1 Shanel ege 3.210.2.7 of .3.010637 Medici n .8 e 2019-12-19 2019-12-19 Ancillary 1.2.840.3 [id number] 756 [id number] [facility] 07:37:33 09:27:36 Procedure 81491.1.1 Co llege 3.210.2.7 of .3.088766 Medici n .8 e 2019-12-19 2019-12-19 Travel 1.2.840.1 1.2.672.159 0398 1217 [facility] 00:00:00 00:00:00 51830.1.1 350.1.13.21 College 3.210.2.7 0.2.7.3.698 of .3.491341 084.8 Medici n .8 e 2019-12-16 2019-12-16 Telephone Devlin, 1.2.840.1 [id number] 756 [id number] [facility] 00:00:00 00:00:00 Manny Leos 32400.1.1 Co llege 3.210.2.7 of .3.712665 Medici n .8 e 2019-12-13 2019-12-13 Office Rustadan, BCM 1.2.332.545 7406 [id number] 13:53:26 14:53:26 Visit Shun AMBULATOR 350.1.13.21 Y 0.2.7.2.686 [id number] 800 2019-12-13 2019-12-13 Office Devlin, 1.2.840.1 [id number] 577 [facility] 10:03:47 13:58:12 Visit Manny Leos 63751.1.1 Co llege 3.210.2.7 of .3.883620 Medici n .8 e 2019-12-13 2019-12-13 Office Devlin, BCM 1.2.840.114 [id number] 10:03:47 13:58:12 Visit Manny Leos AMBULATOR 350.1.13.21 Y 0.2.7.2.686 [id number] 375 2019-12-13 2019-12-13 Travel 1.2.840.1 1.2.458.783 0453 [id number] [facility] 00:00:00 00:00:00 68353.1.1 350.1.13.21 College 3.210.2.7 0.2.7.3.698 of .3.833427 084.8 Medici n .8 e 2019-12-08 2019-12-08 Telephone Frandy, 1.2.840.8 [id number] 755 [id number] [facility] 00:00:00 00:00:00 Manny Leos 04346.1.1 Co llege 3.210.2.7 of .3.175680 Medici n .8 e 2019-12-06 2019-12-06 [facility] 13, [facility] 1.2.840.4 [id number] 7495 3661 [facility] 10:00:00 23:59:00 Encounter Chair 17892.1.1 Co llege 3.210.2.7 of .3.724401 Medici n .8 e 2019-12-06 2019-12-06 Office Omar Yen 1.2.840.3 [id number] [facility] 09:04:35 13:25:56 Visit Eyad 87559.1.1 Shanel ege 3.210.2.7 of .3.888152 Medici n .8 e 2019-12-06 2019-12-06 Office Omar Yen [facility] 1.2.840.114 [id number] 09:04:35 09:37:30 Visit Edjanine CanalesNair 350.1.13.21 0.2.7.2.686 [id number] 530 2019-12-06 2019-12-06 Travel 1.2.840.1 1.2.630.322 8567 9203 [facility] 00:00:00 00:00:00 71722.1.1 350.1.13.21 College 3.210.2.7 0.2.7.3.698 of .3.561342 084.8 Medici n .8 e 2019-12-02 2019-12-02 Telephone Fiona, 1.2.840.8 [id number] 754 16987 [facility] 00:00:00 00:00:00 Vita P 64863.1.1 Shanel ege 3.210.2.7 of .3.975483 Medici n .8 e 2019-11-28 2019-11-30 Outside nullFlavo MNA [id number] [facility] 13:59:25 04:59:59 Medical r Neurology 01 l Records [place] 2019-11-28 2019-11-30 Outside nullFlavo MNA [id number] [facility] 13:59:25 04:59:59 Medical r Neurology 01 l Records [facility] 2019-11-28 2019-11-29 Outpatient MHMISCHER MHMISCHER [id number] [id number] 08:59:25 23:59:59 2019-11-29 2019-11-29 Telephone Fiona, 1.2.840.6 [id number] 753 96255 [facility] 00:00:00 00:00:00 Vita P 52792.1.1 Shanel ege 3.210.2.7 of .3.073396 Medici n .8 e 2019-11-29 2019-11-29 Telephone Fiona, 1.2.840.9 [id number] 753 94324 [facility] 00:00:00 00:00:00 Vita P 43418.1.1 Shanel ege 3.210.2.7 of .3.519091 Medici n .8 e 2019-11-28 2019-11-28 Telephone Fiona, 1.2.840.3 [id number] 753 02116 [facility] 00:00:00 00:00:00 Vita P 21993.1.1 Shanel ege 3.210.2.7 of .3.524485 Medici n .8 e 2019-11-22 2019-11-22 [facility] 13, [facility] 1.2.840.3 [id number] 7495 3660 [facility] 10:00:00 23:59:00 Encounter Chair 26042.1.1 Co llege 3.210.2.7 of .3.849185 Medici n .8 e 2019-11-22 2019-11-22 Office Omar Yen 1.2.840.4 [id number] [facility] 08:40:10 11:15:19 Visit Edward 37251.1.1 Shanel ege 3.210.2.7 of .3.736136 Medici n .8 e 2019-11-22 2019-11-22 Office Omar Yen [facility] 1.2.840.114 [id number] 08:40:10 09:00:10 Visit Edward Seymour 350.1.13.21 0.2.7.2.686 [id number] 530 2019-11-22 2019-11-22 Travel 1.2.840.1 1.2.710.208 8156 8456 [facility] 00:00:00 00:00:00 19170.1.1 350.1.13.21 College 3.210.2.7 0.2.7.3.698 of .3.113800 084.8 Medici n .8 e 2019-11-08 2019-11-08 Hospital 13, [facility] 1.2.840.4 [id number] 7495 3659 [facility] 10:00:00 23:59:00 Encounter Chair 14588.1.1 Co llege 3.210.2.7 of .3.740035 Medici n .8 e 2019-11-08 2019-11-08 Office Omar Yen 1.2.840.0 [id number] [facility] 09:01:33 10:15:07 Visit Edward 89514.1.1 Shanel ege 3.210.2.7 of .3.486069 Medici n .8 e 2019-11-08 2019-11-08 Office Bird Yen [facility] 1.2.840.114 [id number] 09:01:33 10:15:07 Visit E Seymour 350.1.13.21 0.2.7.2.686 [id number] 530 2019-11-08 2019-11-08 Travel 1.2.840.1 1.2.472.895 0570 9 [facility] 00:00:00 00:00:00 53131.1.1 350.1.13.21 College 3.210.2.7 0.2.7.3.698 of .3.728514 084.8 Medici n .8 e 2019-11-01 2019-11-01 Outpatient SLE SLE [id number] 3-2 [facility] 00:00:00 00:00:00 [id number] 2019-11-01 2019-11-01 Orders Alayon, 1.2.840.1 [id number] [facility] 00:00:00 00:00:00 Only [facility] M 60318.1.1 Co llege 3.210.2.7 of .3.912829 Medici n .8 e 2019-10-31 2019-10-31 Orders Rychlec, 1.2.840.3 [id number] 4662 [facility] 00:00:00 00:00:00 Only Kayleigh 90734.1.1 Shanel ege 3.210.2.7 of .3.658348 Medici n .8 e 2019-10-31 2019-10-31 Telephone Omar Yen 1.2.840.8 [id number] [facility] 00:00:00 00:00:00 Edward 63360.1.1 Shanel ege 3.210.2.7 of .3.022264 Medici n .8 e 2019-10-27 2019-10-27 Outpatient SLE SLE [id number] 3-2 SLE 12:42:06 23:59:00 [id number] 2019-10-27 2019-10-27 Orders Fiona, 1.2.840.2 [id number] 015 [facility] 00:00:00 00:00:00 Only Vita P 95644.1.1 Shanel ege 3.210.2.7 of .3.816455 Medici n .8 e 2019-10-26 2019-10-26 Telephone Omar Yen 1.2.840.4 [id number] [facility] 00:00:00 00:00:00 Edward 76827.1.1 Shanel ege 3.210.2.7 of .3.518723 Medici n .8 e 2019-10-26 2019-10-26 Telephone Omar Yen 1.2.840.4 [id number] [facility] 00:00:00 00:00:00 Edward 05356.1.1 Shanel ege 3.210.2.7 of .3.919133 Medici n .8 e 2019-10-25 2019-10-25 Office Omar Yen 1.2.840.4 [id number] [facility] 12:05:50 14:39:35 Visit Edward 75281.1.1 Shanel ege 3.210.2.7 of .3.837511 Medici n .8 e 2019-10-25 2019-10-25 Office Bird Yen [facility] 1.2.840.114 [id number] 12:05:50 13:31:23 Visit E Seymour 350.1.13.21 0.2.7.2.686 [id number] 530 2019-10-25 2019-10-25 Travel 1.2.840.1 1.2.162.361 8158 6555 [facility] 00:00:00 00:00:00 63442.1.1 350.1.13.21 College 3.210.2.7 0.2.7.3.698 of .3.575110 084.8 Medici n .8 e 2019-10-24 2019-10-24 Telephone Fiona, 1.2.840.9 [id number] 748 10756 [facility] 00:00:00 00:00:00 Vita P 19481.1.1 Shanel ege 3.210.2.7 of .3.927682 Medici n .8 e 2019-10-20 2019-10-21 Clinical Fiona, 1.2.840.9 [id number] 7485 8468 [facility] 11:45:00 11:15:55 Support Vita P 92926.1.1 Shanel ege 3.210.2.7 of .3.731044 Medici n .8 e 2019-10-21 2019-10-21 Out[facility] 30 [id number] [facility] 10:33:00 10:33:00 t Specialty/U Sp viridiana Specialty rology - [facility] 2019-10-21 2019-10-21 Telephone Fiona, 1.2.840.4 [id number] 748 29248 [facility] 00:00:00 00:00:00 Vita P 41852.1.1 Shanel ege 3.210.2.7 of .3.669241 Medici n .8 e 2019-10-21 2019-10-21 Telephone Fiona, 1.2.840.7 [id number] 748 26449 [facility] 00:00:00 00:00:00 Vita P 35351.1.1 Shanel ege 3.210.2.7 of .3.240035 Medici n .8 e 2019-10-21 2019-10-21 Telephone Omar Yen 1.2.840.5 [id number] [facility] 00:00:00 00:00:00 Edward 02131.1.1 Shanel ege 3.210.2.7 of .3.516626 Medici n .8 e 2019-10-19 2019-10-20 Outpatient nullFlavo MNA [id number] [facility] 20:30:00 04:59:59 r Neurology 13 l Rhiannon Ryder 2019-10-19 2019-10-20 Outpatient nullFlavo MNA [id number] [facility] 20:30:00 04:59:59 r Neurology 13 l Rhiannon Ryder 2019-10-19 2019-10-19 Outpatient ELMIRA CamposMISCHER MHMISCHER [id number] 15:30:00 23:59:59 Michael 13 Isaiah 2019-10-19 2019-10-19 Outpatient MHIE ELMIRAIE [id number] [facility] 15:30:00 15:30:00 13 lillian Ryder 2019-10-19 2019-10-19 Telephone Fiona, 1.2.840.4 [id number] 748 62586 [facility] 00:00:00 00:00:00 Vita P 31378.1.1 Shanel ege 3.210.2.7 of .3.143102 Medici n .8 e 2019-10-18 2019-10-18 Orders Fiona, 1.2.840.0 [id number] 095 [facility] 00:00:00 00:00:00 Only Vita P 29701.1.1 Shanel ege 3.210.2.7 of .3.157721 Medici n .8 e 2019-10-18 2019-10-18 Telephone Fiona, 1.2.840.1 [id number] 748 65876 [facility] 00:00:00 00:00:00 Vita P 86848.1.1 Shanel ege 3.210.2.7 of .3.478266 Medici n .8 e 2019-10-17 2019-10-17 Telephone Fiona, 1.2.840.2 [id number] 748 89901 [facility] 00:00:00 00:00:00 Vita P 90511.1.1 Shanel ege 3.210.2.7 of .3.856241 Medici n .8 e 2019-10-14 2019-10-14 Outpatient SLEH SLEH [id number] 3-2 [facility] 06:14:00 06:14:00 [id number] 2019-10-14 2019-10-14 Orders Fiona, 1.2.840.0 [id number] 990 [facility] 00:00:00 00:00:00 Only Vita P 12724.1.1 Shanel ege 3.210.2.7 of .3.690995 Medici n .8 e 2019-10-14 2019-10-14 Telephone Fiona, 1.2.840.5 [id number] 747 32566 [facility] 00:00:00 00:00:00 Vita P 29442.1.1 Shanel ege 3.210.2.7 of .3.861379 Medici n .8 e 2019-10-14 2019-10-14 Abstract Fiona, 1.2.840.9 [id number] 7479 7074 [facility] 00:00:00 00:00:00 Vita P 70091.1.1 Shanel ege 3.210.2.7 of .3.464531 Medici n .8 e 2019-10-13 2019-10-13 Telephone Fiona, 1.2.840.9 [id number] 747 88490 [facility] 00:00:00 00:00:00 Vita P 46249.1.1 Shanel ege 3.210.2.7 of .3.849729 Medici n .8 e 2019-10-13 2019-10-13 Abstract Fiona, 1.2.840.2 [id number] 7477 9273 [facility] 00:00:00 00:00:00 Vita P 28727.1.1 Shanel ege 3.210.2.7 of .3.645663 Medici n .8 e 2019-10-12 2019-10-12 Outpatient [facility] SLE[facility] [id number] 3-2 [facility] 00:00:00 00:00:00 [id number] 2019-10-10 2019-10-10 Outpatient [facility] [id number] 3-2 [facility] 00:00:00 00:00:00 [id number] 2019-10-10 Telephone Fiona, 1.2.840.5 [id number] 747 65430 [facility] 00:00:00 00:00:00 Vita P 17564.1.1 Shanel ege 3.210.2.7 of .3.499636 Medici n .8 e 2019-10-04 2019-10-04 Office GUILLERMINA Jaimes 1.2.840.114 [id number] [facility] 15:02:08 15:36:29 Visit Vita P AMBULATOR 350.1.13.21 College Y 0.2.7.2.686 of 834.1738257 Medi khushi 300 e 2019-10-04 2019-10-04 Office Fiona, GUILLERMINA 1.2.840.114 [id number] 15:02:08 15:36:29 Visit Vita P AMBULATOR 350.1.13.21 Y 0.2.7.2.686 [id number] 300 2019-09-21 2019-09-21 Out[facility] [id number] [facility] 15:44:00 15:44:00 t Specialty/U Sp viridiana Specialty rology - [facility] 2019-09-15 2019-09-16 Outpatient nullFlavo MNA [id number] [facility] 22:00:00 05:59:59 r Neurology 12 l [place] 2019-09-15 2019-09-16 Outpatient nullFlavo MNA [id number] [facility] 22:00:00 05:59:59 r Neurology 12 l [place] 2019-09-15 2019-09-15 Outpatient ELMIRA CamposARSCHER MISCHER [id number] 16:00:00 23:59:59 Michael 12 Isaiah 2019-09-15 2019-09-15 Outpatient MHIE MHIE [id number] [facility] 16:00:00 16:00:00 12 l Aleksey 2019-09-13 2019-09-13 Out[facility] [id number] Common 13:15:00 13:15:00 t Specialty/U Sp viridiana Specialty rology - [facility] 2019-08-18 2019-08-19 Outpatient nullFlavo MNA [id number] [facility] 20:45:00 05:59:59 r Neurology 10 l [place] 2019-08-18 2019-08-19 Outpatient nullFlavo MNA [id number] [facility] 20:45:00 05:59:59 r Neurology 10 l [place] 2019-08-18 2019-08-18 [facility] [id number] 14:45:00 23:59:59 Michael 10 [facility] 2019-08-18 2019-08-18 Outpatient MHIE IE [id number] [facility] 14:45:00 14:45:00 10 l [place] 2019-07-22 2019-07-23 Outpatient nullFlavo MNA [id number] [facility] 15:15:00 05:59:59 r Neurology 11 l [place] 2019-07-22 2019-07-23 Outpatient nullFlavo MNA [id number] [facility] 15:15:00 05:59:59 r Neurology 11 l [place] 2019-07-22 2019-07-22 Outpatient ELMIRA CamposMISCHER MHMISCHER [id number] 09:15:00 23:59:59 Michael 11 [facility] 2019-07-22 2019-07-22 Outpatient MHIE MHIE [id number] Memoria 09:15:00 09:15:00 11 l Aleksey 2019-07-07 2019-07-08 Outpatient nullFlavo MNA [id number] [facility] 20:45:00 05:59:59 r Neurology 09 lillian [place] 2019-07-07 2019-07-08 Outpatient nullFlavo MNA [id number] [facility] 20:45:00 05:59:59 r Neurology 09 lillian [place] 2019-07-07 2019-07-07 [facility] [id number] 14:45:00 23:59:59 Michael Colby Colon 2019-07-07 2019-07-07 Outpatient MHIE MHIE [id number] [facility]oria 14:45:00 14:45:00 09 lillian Aleksey 2019-03-03 2019-03-04 Outpatient nullFlavo MNA [id number] [facility] 20:15:00 04:59:59 r Neurology 08 lillian [place] 2019-03-03 2019-03-04 Outpatient nullFlavo MNA [id number] [facility] 20:15:00 04:59:59 r Neurology 08 lillian [place] 2019-03-03 2019-03-03 [facility] [id number] 15:15:00 23:59:59 Michaelkamari Colon 2019-03-03 2019-03-03 Outpatient MHIE MHIE [id number] Memoria 15:15:00 15:15:00 lillian [place] 2019-02-02 2019-02-03 Outpatient nullFlavo MNA [id number] [facility] 20:15:00 04:59:59 r Neurology 07 lillian [place] 2019-02-02 2019-02-03 Outpatient nullFlavo MNA [id number] [facility] 20:15:00 04:59:59 r Neurology 07 lillian [place] 2019-02-02 2019-02-02 Outpatient [facility] [id number] 15:15:00 23:59:59 Michael Colon 2019-02-02 2019-02-02 Outpatient MHIE MHIE [id number] [facility] 15:15:00 15:15:00 07 lillian [place] 2018-12-17 2018-12-18 Outpatient nullFlavo MNA [id number] [facility] 20:30:00 04:59:59 r Neurology 06 l Rhiannon Ryder 2018-12-17 2018-12-18 Outpatient nullFlavo MNA [id number] [facility] 20:30:00 04:59:59 r Neurology 06 l Rhiannon Ryder 2018-12-17 2018-12-17 Outpatient Medardoyvonne MHMISCHER MHMISCHER [id number] 15:30:00 23:59:59 Michael Garrison Colon 2018-12-17 2018-12-17 Outpatient MHIE MHIE [id number] [facility] 15:30:00 15:30:00 06 lillian Ryder 2018-12-03 2018-12-03 Ambulatory nullFlavo MNA [id number] [facility] 18:30:00 18:30:00 Pre-Reg r Neurology 05 lillian Ryder 2018-12-03 2018-12-03 Ambulatory nullFlavo MNA [id number] [facility] 18:30:00 18:30:00 Pre-Reg r Neurology 05 lillian Jurado [place] 2018-12-03 2018-12-03 Outpatient MHIE MHIE [id number] Memoria 13:30:00 13:30:00 05 lillian Ryder 2018-12-03 2018-12-03 [facility] [id number] 13:30:00 13:30:00 Michael Juanis Colon 2018-07-30 2018-07-31 Outpatient nullFlavo MNA [id number] [facility] 19:00:00 05:59:59 r Neurology 04 lillian Smithann 2018-07-30 2018-07-31 Outpatient nullFlavo MNA [id number] [facility] 19:00:00 05:59:59 r Neurology 04 l Rhiannon Ryder 2018-07-30 2018-07-30 Outpatient Medardoyvonne MHMISCHER MHMISCHER [id number] 13:00:00 23:59:59 Michael Connie Colon 2018-07-30 2018-07-30 Outpatient MHIE MHIE [id number] [facility]oria 13:00:00 13:00:00 Connie Ryder 2018-07-08 2018-07-10 Phone nullFlavo MNA [id number] [facility] 16:46:00 05:59:59 Message r Neurology 00 lillian [place] 2018-07-08 2018-07-10 Phone nullFlavo MNA [id number] [facility] 16:46:00 05:59:59 Message r Neurology 00 lillian Jurado [place] 2018-07-08 2018-07-09 Outpatient MHMISCHER MHMISCHER [id number] 10:46:00 23:59:59 00 2018-06-18 2018-06-19 Outpatient nullFlavo MNA [id number] [facility] 19:15:00 05:59:59 r Neurology 03 lillian Smithann 2018-06-18 2018-06-19 Outpatient nullFlavo MNA [id number] [facility] 19:15:00 05:59:59 r Neurology 03 lillian [place] 2018-06-18 2018-06-18 Outpatient EVERARDO CamposSCHER MHMISCHER [id number] 13:15:00 23:59:59 Michael Jessica Colon 2018-06-18 2018-06-18 Outpatient MHIE MHIE [id number] [facility]oria 13:15:00 13:15:00 03 lillian Ryder 2018-04-01 2018-04-01 Outpatient MHIE MHIE [id number] [facility]oria 14:15:00 14:15:00 02 lillian Ryder 2018-04-01 2018-04-01 Outpatient MHIE MHIE [id number] [facility]oria 14:15:00 14:15:00 02 lillian Ryder 2017-12-31 2017-12-31 Outpatient MHIE MHIE [id number] [facility]oria 13:15:00 13:15:00 01 lillian Ryder 2017-12-31 2017-12-31 Outpatient MHIE MHIE [id number] Memoria 13:15:00 13:15:00 01 lillian Ryder 2017-09-01 2017-09-01 Outpatient MHIE MHIE [id number] Memoria 13:15:00 13:15:00 00 lillian Ryder 2017-09-01 2017-09-01 Outpatient MHIE MHIE [id number] Memoria 13:15:00 13:15:00 00 lillian Ryder Results Test Description Test Time Test Comments Results Result Sour e Comments ANG, CV ACCESS, 2022-03-20 Reason for FLUORO 15:46:00 Exam:->Malignant neoplasm of overlapping sites [facility] - of bladder, [facility] Port-A-Cath in [place] : 1945 Sex: F *FINAL REPORT Right Chest Port-A-Cath removal. History: Malignant neoplasm of overlapping sites of bladder, Port-A-Cath in place Modality: None. Sedation: No sedation. Vital signs were monitored throughout the procedure by a nurse, and remained stable. Physician intra-service time was 35 minutes. Business Test Analyst: Meño Alfaro MD. Approach: Right anterior chest. [...] MDReport Verified Date/Time: 03/20/2022 15:46:55 Reading Location: [facility] Radiology Reading Room HROMBIN TIME/INR 2022-03-18 [...] 2.5-3.5 for patients with mechanical heart valves.POC-Glucose [id number] 11:50:47 Test Item Value Reference Range Interpretation Comments POC-Glucose Meter (test 91 mg/dL 70-110 : TE STED AT [facility] code = 1538) [address] [place] [address], [facility] 30: Bobbin Dumper/Techni kylie ID = [id number] for Sarsoza, Gemma Lab Interpretation (test Normal code = 36579-2) [facility] [id number] 11:50:47 Test Item Value Reference Range Interpretation Comments POC-Glucose Meter (test 91 mg/dL 70-110 : TE STED AT [facility] code = 1538) [address] [place] [address], 770 30: Bobbin Dumper/Techni kylie ID = [id number] for Sarsoza, Gemma Lab Interpretation (test Normal code = 51514-4) [facility]-Glucose [id number] 11:50:47 Test Item Value Reference Range Interpretation Comments POC-Glucose Meter (test 91 mg/dL 70-110 : TE STED AT [facility] code = 1538) [address] [place] [address], 770 30: Bobbin Dumper/Techni kylie ID = [id number] for Sarsoza, Gemma Lab Interpretation (test Normal code = 61719-1) [facility] [id number] 11:50:47 Test Item Value Reference Range Interpretation Comments POC-Glucose Meter (test 91 mg/dL 70-110 : TE STED AT [facility] code = 1538) [address] [place] [address], [facility] 30: Bobbin Dumper/Techni kylie ID = [id number] for Sarsoza, Gemma Lab Interpretation (test Normal code = 76777-5) [facility] [id number] 11:50:47 Test Item Value Reference Range Interpretation Comments POC-Glucose Meter (test 91 mg/dL 70-110 : TE STED AT [facility] code = 1538) [address] [facility] [place], 770 30: Bobbin Dumper/Techni kylie ID = [id number] for Claudia Andrade Lab Interpretation (test Normal code = 34271-7) [facility] [id number] 11:50:47 Test Item Value Reference Range Interpretation Comments POC-GLUCOSE METER 91 mg/dL 70-110 : TESTED A T [facility] 6720 (BEAKER) (test code = ANDREA Mcfarland [facility], 1538) [address]71: Bobbin Dumper/Techni kylie ID = [id number] for Vera simonsa Gemma CBC W/PLT COUNT & AUTO [id number] 11:50:17 Test Item Value Reference Range Interpretation [...] PERCENT (BEAKER) (test code = 2801) VITAMIN [id number] 11:04:45 Test Item Value Reference Range Interpretation Comments VITAMIN B-12 (test 1015 PG/ML 200-950 H Unless O therwise code = 2132-9) Indicated, Al l Testing Perform ed At: [employer], [address] [place] [facility] [place] [address] Laborator y Director: Robbie Wagner M.D. CLIA Number [id number] Cap Accreditation [place] o. 36767-84 BALBIR (test code = BALBIR) PT FASTING Lab Interpretation Abnormal (test code = 91164-6) [facility] T4 [id number] 11:04:45 Test Item Value Reference Range Interpretation Comments THYROID STIMULATING See_Comment [Automa tom message] HORMONE (test code = The sys tem which 64846-4) generated this result transmitted ref erence range: 0.400 - 4.100 UIU/ML. The ref erence range was not u sed to interpret this result as normal/abnor mal. FREE T4 (test code = See_Comment Unless Otherwise 3024-7) Indicated, All Testing Perform ed At: [employer], [address] [facility], [facility] [place] [address] Laborator y Director: Robbie Wagner M.D. CLIA Number [id number] [employer] Accreditation [place] o. 49099-15 [Autom ated message] The sy stem which generated this result transmit tom reference range : 0.80 - 1.90 NG/DL. T he reference range was not used to int erpret this result as normal/abnormal . BALBIR (test code = BALBIR) PT FASTING [facility] [id number] 19:07:17 Test Item Value Reference Range Interpretation Comments GLUCOSE (test code = See_Comment H [Autom ated message] 2345-7) The system [employer] generated this result transmitted ref erence range: [...] [Auto mated message] = 2160-0) The system [employer] generated this result transmitted ref erence range: 0.6 - 1. 3 MG/DL. The refe rence range was not u sed to interpret this result as normal/abnor mal. EGFR (test code = See_Comment L [Automate d message] 96436-0) The system [employer] generated this result transmitted ref erence range: >60 ML/MIN/1.73. Th e reference range was not used to int erpret this result as normal/abnormal . BUN/CREAT RATIO (test See_Comment [Auto mated message] code = 3097-3) The system [facility] generated this result transmitted ref erence range: 6 - 28 R ATIO. The reference r anil was not used to interpret this result as normal/abnor mal. SODIUM (test code = See_Comment [Automa tom message] 2951-2) The system [employer] generated this result transmitted ref erence range: 133 - 14 6 MEQ/L. The refe rence range was not u sed to interpret this result as normal/abnor mal. POTASSIUM (test code = See_Comment [Aut omated message] 1933-3) The system [employer] generated this result transmitted ref erence range: 3.5 - 5. 4 MEQ/L. The refe rence range was not u sed to interpret this result as normal/abnor mal. CHLORIDE (test code = See_Comment H [Auto mated message] 2074-0) The system [facility] generated this result transmitted ref erence range: 100 - 11 2 MEQ/L. The refe rence range was not u sed to interpret this result as normal/abnor mal. CO2 (test code = See_Comment [Automated message] 1962-8) The system [facility] generated this result transmitted ref erence range: 21 - 30 MEQ/L. The reference r anil was not used to interpret this result as normal/abnor mal. CALCIUM (test code = See_Comment [Autom ated message] 69375-6) The system [facility] generated this result transmitted ref erence range: 8.5 - 10 .5 MG/DL. The refe rence range was not u sed to interpret this result as normal/abnor mal. PROTEIN TOTAL (test See_Comment [Automa tom message] code = 1815-2) The system [employer] generated this result transmitted ref erence range: 6.1 - 8. 1 G/DL. The refer ence range was not u sed to interpret this result as normal/abnor mal. ALBUMIN (test code = See_Comment [Autom ated message] 55629-4) The system [facility] [employer] generated this result transmitted ref erence range: 3.4 - 4. 8 G/DL. The refer ence range was not u sed to interpret this result as normal/abnor mal. GLOBULINS, SERUM, See_Comment [Automate d message] TOTAL (test code = The syste m which 70626-6) generated this result transmitted ref erence range: 1.9 - 3. 7 G/DL. The refer ence range was not u sed to interpret this result as normal/abnor mal. A/G RATIO (test code = See_Comment [Aut omated message] 7449-0) The system [facility] generated this result transmitted ref erence range: 1.0 - 2. 6 RATIO. The refe rence range was not u sed to interpret this result as normal/abnor mal. BILIRUBIN TOTAL (test See_Comment [Auto mated message] code = 1975-2) The system [employer] generated this result transmitted ref erence range: <=1.2 MG /DL. The reference r anil was not used to interpret this result as normal/abnor mal. ALKALINE PHOSPHATASE 71 U/L 30-132 (test code = 6768-6) AST (SGOT) (test code 26 U/L 7-56 = 1920-8) ALT (SGPT) (test code 29 U/L 3-47 TESTI NG PERFORMED AT = 1744-2) [facility] [place] [address] [facility] D, [address] [place] [address] CLIA NO. [id number] Unle ss Otherwise Indic ated, All Testing Per formed At: [facility], [address] [place] [id number] Laborator y Director: Robbie Wagner M.D. CLIA Number [id number] Cap Accreditation N o. BALBIR (test code = BALBIR) PT FASTING Lab Interpretation Abnormal (test code = 29047-0) [id number]07:05 Test Item Value Reference Range Interpretation Comments MAGNESIUM (test code See_Comment TESTIN G PERFORMED AT = 35282-8) CLINICAL PATHOL [facility], [place]. [address] [facility] [place], [place] [address] CLIA NO. [id number] Unless Otherwise Indic ated, All Testing Per formed At: [facility], [address] [place] [address] Laboratory Dire ctor: Robbie de los santos M.D. CLIA Number [id number] Cap Accreditati on No. [Autom ated message] The sy stem which generated this result transmit tom reference range : 1.6 - 2.6 MG/DL. The reference range was not used to interpr et this result as normal/abnormal . BALBIR (test code = PT FASTING BALBIR) [facility] W/AUTO DIFF WITH [id number] 18:30:05 Test Item Value Reference Range Interpretation Comments WHITE BLOOD CELL COUNT See_Comment [Aut omated message] (test code = 33010-1) The sy stem which generated this result transmit tom reference range : 3.5 - 11.0 K/UL. e reference range was not used to interpret this result as normal/abnormal . RED BLOOD CELL COUNT See_Comment [Autom ated message] (test code = 73624-9) The sy stem which generated this result transmit tom reference range : 3.80 - 5.40 M/U L. The reference r anil was not used to interpret this result as normal/abnormal . HEMOGLOBIN (test code = See_Comment [Au tomated message] 718-7) The system [employer] generated this result transmit tom reference range : 11.5 - 15.5 G/D L. The reference r anil was not used to interpret this result as normal/abnormal . HEMATOCRIT (test code = 42.3 % 34-45 70403-6) MEAN CORPUSCULAR VOLUME 90.2 fL 80-99 (test code = 66903-5) MEAN CORPUSCULAR 29.2 PG 25-33 HEMOGLOBIN (test code = 83793-4) MEAN CORPUSCULAR See_Comment [Automated message] HEMOGLOBIN CONC (test The sy stem which code = 18900-3) generated th is result transmit tom reference range : 31.0 - 36.0 G/D L. The reference r anil was not used to interpret this result as normal/abnormal . RED CELL DISTRIBUTION 15.2 % 11.5-15 H WIDTH (test code = 82577-6) NEUTROPHILS % (test 58 % code = 81875-4) LYMPHOCYTES % (test 33 % code = 17252-2) MONOCYTES % (test code 8 % = 32144-4) EOSINOPHILS % (test 1 % code = 44697-0) BASOPHILS % (test code 0 % = 32518-9) PLATELET COUNT (test See_Comment TESTIN G PERFORMED code = 68045-5) AT [facility]. [address], [address] [facility], [place] [address] CLIA NO. [id number] [Automated mess age] The system [employer] generated this result transmit tom reference range : 130 - 400 K/UL. The reference range was not used to interpret this result as normal/abnormal . NEUTROPHILS ABSOLUTE See_Comment [Autom ated message] COUNT (test code = The syste m which 52739-5) generated this result transmit tom reference range : 1.50 - 7.50 K/U L. The reference r anil was not used to interpret this result as normal/abnormal . LYMPHOCYTES ABSOLUTE See_Comment [Autom ated message] COUNT (test code = The syste m which 15260-9) generated this result transmit tom reference range : 1.00 - 4.00 K/U L. The reference r anil was not used to interpret this result as normal/abnormal . MONOCYTES ABSOLUTE See_Comment [Automat ed message] COUNT (test code = The syste m which 51929-7) generated this result transmit tom reference range : 0.20 - 1.00 K/U L. The reference r anil was not used to interpret this result as normal/abnormal . BASOPHILS ABSOLUTE See_Comment Unless O therwise COUNT (test code = Indicated , All 27604-6) Testing Perform ed At: [facility], [address] [place] [address] Laborator y Director: Robbie Wagner M.D. CLIA Number [id number] [place] [address]-32 [Automated mess age] The system [employer] h generated this result transmit tom reference range : 0.00 - 0.20 K/U L. The reference r anil was not used to interpret this result as normal/abnormal . BALBIR (test code = BALBIR) PT FASTING Lab Interpretation Abnormal (test code = 61141-5) [facility] [id number] 10:07:00Unlisted Reason for Exam - Click Yes and Enter Reason Below->Yes Unlisted Reason for Exam->Malignant neoplasm of overlapping sites of bladder [facility] MERCAD[facility] AL : 1945 Sex: [...] pelviectasis is unchanged. Status post cystectomy with Jazzy pouch. Proximal remains thickened. No evidence of bowel obstruction, or abnormal bowelwall thickening. There is no ascites, free air or adenopathy. Bony structures demonstrate degenerative changes. Impression: Previously seen right lower lobe pulmonary nodules are either smaller or resolved. No new disease identified in the chest, abdomen or pelvis. Persistent wall thickening of the [place] pouch. Cholelithiasis. Punctate nonobstructive stone in the right kidney. Signed: Beto Bianchi MDReport Verified Date/Time: 02/05/2022 10:07:02 Reading Location: [facility] B1 C013X [facility] Consult Reading Room [facility], [id number] 10:07:00Unlisted Reason for Exam - Click Yes and Enter Reason Below->YesUnlisted Reason for Exam->Malignant neoplasm of overlapping sites of bladderIs this for enterography?->NoWill this procedure require oral contrast?->No [facility] : 1945 Sex: [...] pelviectasis is unchanged. Status post cystectomy with Key[place] pouch. Proximal remains thickened. No evidence of bowel obstruction, or abnormal bowelwall thickening. There is no ascites, free air or adenopathy. Bony structures demonstrate degenerative changes. Impression: Previously seen right lower lobe pulmonary nodules are either smaller or resolved. No new disease identified in the chest, abdomen or pelvis. Persistent wall thickening of the [place] pouch. Cholelithiasis. Punctate nonobstructive stone in the right kidney. Signed: Beto Bianchi MDReport Verified Date/Time: 02/05/2022 10:07:02 Reading Location: [facility] C013X Ortho Consult Reading Room COMPREHENSIVE METABOLIC PANEL 2021-11-15 17:14:02 Test Item Value Reference Range Interpretation Comments GLUCOSE (test code = See_Comment [Autom ated message] 2345-7) The system [employer] generated this result transmitted ref erence range: 70 - 99 MG/DL. The reference r anil was not used to interpret this result as normal/abnor mal. BLOOD UREA NITROGEN See_Comment H [Automa tom message] (test code = 3091-6) The [employer] tem which generated this result transmitted ref erence range: 6 - 20 M G/DL. The reference r anil was not used to interpret this result as normal/abnor mal. CREATININE (test code = See_Comment [Au tomated message] 2160-0) The system [employer] generated this result transmitted ref erence range: 0.6 - 1. 3 MG/DL. The refe rence range was not u sed to interpret this result as normal/abnor mal. EGFR (test code = See_Comment [Automate d message] 63545-0) The system [employer] generated this result transmitted ref erence range: >60 ML/MIN/1.73. Th e reference range was not used to int erpret this result as normal/abnormal . BUN/CREAT RATIO (test See_Comment [Auto mated message] code = 3097-3) The system [employer] [facility] generated this result transmitted ref erence range: 6 - 28 R ATIO. The reference r anil was not used to interpret this result as normal/abnor mal. SODIUM (test code = See_Comment [Automa tom message] 2951-2) The system [employer] generated this result transmitted ref erence range: 133 - 14 6 MEQ/L. The refe rence range was not u sed to interpret this result as normal/abnor mal. POTASSIUM (test code = See_Comment [Aut omated message] 2823-3) The system [employer] generated this result transmitted ref erence range: 3.5 - 5. 4 MEQ/L. The refe rence range was not u sed to interpret this result as normal/abnor mal. CHLORIDE (test code = See_Comment [Auto mated message] 2074-0) The system [employer] generated this result transmitted ref erence range: 100 - 11 2 MEQ/L. The refe rence range was not u sed to interpret this result as normal/abnor mal. CO2 (test code = See_Comment L [Automated message] 1963-02) The system [employer] generated this result transmitted ref erence range: 21 - 30 MEQ/L. The reference r anil was not used to interpret this result as normal/abnor mal. CALCIUM (test code = See_Comment [Autom ated message] 14299-3) The system [employer] generated this result transmitted ref erence range: 8.5 - 10 .5 MG/DL. The refe rence range was not u sed to interpret this result as normal/abnor mal. PROTEIN TOTAL (test See_Comment [Automa tom message] code = 2885-2) The system [employer] generated this result transmitted ref erence range: 6.1 - 8. 1 G/DL. The reference r anil was not used to interpret this result as normal/abnor mal. ALBUMIN (test code = See_Comment [Autom ated message] 86228-1) The system [employer] generated this result transmitted ref erence range: 3.4 - 4. 8 G/DL. The reference r anil was not used to interpret this result as normal/abnor mal. GLOBULINS, SERUM, TOTAL See_Comment [Au tomated message] (test code = 77069-4) The sy stem which generated this result transmitted ref erence range: 1.9 - 3. 7 G/DL. The reference r anil was not used to interpret this result as normal/abnor mal. A/G RATIO (test code = See_Comment [Aut omated message] 1759-0) The system [employer] generated this result transmitted ref erence range: 1.0 - 2. 6 RATIO. The refe rence range was not u sed to interpret this result as normal/abnor mal. BILIRUBIN TOTAL (test See_Comment [Auto mated message] code = 1975-2) The system wh ich generated this result transmitted ref erence range: <=1.2 MG /DL. The reference r anil was not used to interpret this result as normal/abnor mal. ALKALINE PHOSPHATASE 62 U/L 30-132 (test code = 6768-6) AST (SGOT) (test code = 27 U/L 7-56 1920-8) ALT (SGPT) (test code = 25 U/L 3-47 TE STING PERFORMED AT 1744-2) [facility] PATHOL [facility], [place] [address] [facility] D, [address] [place] [address] CLIA NO. [id number] Unle ss Otherwise Indic ated, All Testing Per formed At: [facility], [address] [place] [address] Laborator y Director: Robbie Wagner M.D. CLIA Number [id number] Cap Accreditation N o. [id number] Lab Interpretation Abnormal (test code = 16365-0) [facility] [id number] 17:13:42 Test Item Value Reference Range Interpretation Comments MAGNESIUM (test code = See_[place] [address]-4) [facility]. [address] [facility], [address] [place], [place] [address] CLIA NO. [id number] Unle ss Otherwise Indic ated, All Testing Perform ed At: [facility], [address] [place] [address] Laboratory Dire ctor: Gayla Chavez CLIA Number [id number] Cap Accreditation N o. [id number] [Automated mess age] The system which ge nerated this result tra nsmitted reference range : 1.6 - 2.6 MG/DL. The refe rence range was not used to interpret this result as normal/abnormal . [facility]AUTO DIFF WITH [id number] 16:29:34 Test Item Value Reference Range Interpretation Comments WHITE BLOOD CELL COUNT See_Comment [Aut omated message] (test code = 59049-1) The sy stem which generated this result transmitted ref erence range: 3.5 - 11 .0 K/UL. The refer ence range was not u sed to interpret this result as normal/abnor mal. RED BLOOD CELL COUNT See_Comment [Autom ated message] (test code = 89529-4) The sy stem which generated this result transmitted ref erence range: 3.80 - 5 .40 M/UL. The refer ence range was not u sed to interpret this result as normal/abnor mal. HEMOGLOBIN (test code = See_Comment [Au tomated message] 718-7) The system [employer] generated this result transmitted ref erence range: 11.5 - 1 5.5 G/DL. The refer ence range was not u sed to interpret this result as normal/abnor mal. HEMATOCRIT (test code = 42.1 % 34.0-45.0 37218-6) MEAN CORPUSCULAR VOLUME 88.8 fL 80.0-99.0 (test code = 28719-8) MEAN CORPUSCULAR 28.7 PG 25.0-33.0 HEMOGLOBIN (test code = 33882-3) MEAN CORPUSCULAR See_Comment [Automated message] HEMOGLOBIN CONC (test The sy stem which code = 58115-7) generated th is result transmitted ref erence range: 31.0 - 3 6.0 G/DL. The refer ence range was not u sed to interpret this result as normal/abnor mal. RED CELL DISTRIBUTION 16.2 % 11.5-15.0 H WIDTH (test code = 36628-5) NEUTROPHILS % (test code 66 % = 14012-5) LYMPHOCYTES % (test code 23 % = 58127-9) MONOCYTES % (test code = 10 % 32524-6) EOSINOPHILS % (test code 1 % = 70986-4) BASOPHILS % (test code = 0 % 04749-8) PLATELET COUNT (test See_Comment TESTIN G PERFORMED AT code = 62340-4) [facility], [place]. [address], [address] [place] [address] CLIA NO. [id number] [Automated mess age] The system [employer] generated this result transmitted ref erence range: 130 - 40 0 K/UL. The refer ence range was not u sed to interpret this result as normal/abnor mal. NEUTROPHILS ABSOLUTE See_Comment [Autom ated message] COUNT (test code = The syste m which 28978-0) generated this result transmitted ref erence range: 1.50 - 7 .50 K/UL. The refer ence range was not u sed to interpret this result as normal/abnor mal. LYMPHOCYTES ABSOLUTE See_Comment [Autom ated message] COUNT (test code = The syste m which 98872-5) generated this result transmitted ref erence range: 1.00 - 4 .00 K/UL. The refer ence range was not u sed to interpret this result as normal/abnor mal. MONOCYTES ABSOLUTE COUNT See_Comment [A utomated message] (test code = 81986-8) The sy stem which generated this result transmitted ref erence range: 0.20 - 1 .00 K/UL. The refer ence range was not u sed to interpret this result as normal/abnor mal. BASOPHILS ABSOLUTE COUNT See_Comment Un less Otherwise (test code = 94235-8) Indica tom, All Testing Perform ed At: [facility], [address] [place] [address] Laborator y Director: Robbie Wagner M.D. CLIA Number [id number] Cap Accreditation N o. [id number] [Autom ated message] The sy stem which generated this result transmit tom reference range : 0.00 - 0.20 K/UL. Th e reference range was not used to int erpret this result as normal/abnormal . Lab Interpretation (test Abnormal code = 74899-9) [facility], [id number] 07:33:00T2N0 bladder cancer restagingPlease compare to prior imagingSchedule early to mid October 2021Unlisted Reason for Exam - Click Yes and Enter Reason Below->YesUnlisted Reason for Exam->Malignant neoplasm of overlapping sites of bladderIs this for enterography?->NoWill this procedure require oralcontrast?->No [facility] : 1945 Sex: [...] of iterative reconstructive technique. Comparison Film: July 29, 2021 and May 03, 2021 Discussion: Thyroid gland appearsenlarged, as before. There is a right-sided Port-A-Cath. No supraclavicular, axillary, mediastinal or hilar lymphadenopathy. Heart is enlarged. In the right lower lobe, there is a new 3 mm nodule (image 75), as well as several adjacent small, vaguely groundglass nodular opacities. No effusion. No consolidation. No bronchiectasis or bronchial wall thickening. No liver lesion is identified. No biliary ductal dilatation. There are small stones in the gallbladder. The spleen, pancreas, and adrenal glands are unremarkable. Kidneys demonstrate no hydronephrosis, mass or radiopaque stone. There is bilateral pelviectasis, unchanged. No filling defect is identified in the opacified motion of the renal collecting system. Status post cystectomy, with Jazzy pouch. Pouch wall remains mildly thickened, but un changed from the previous exams. No evidence of bowel obstruction, or abnormal bowel wall thickening. In the pelvis, uterus is also absent. No adnexal mass. No ascites, or lymphadenopathy. Bony structures demonstrate degenerative changes. A stable sclerotic focus in the right proximal femur is likely a bone island. Impression: Interval development of a 3 mm pulmonary nodule as well as several additional small groundglass nodules in the right lower lobe. Findings are nonspecific and may be related toinfection or inflammation, amenable to follow- up. Persistent wall thickening of the [place] pouch. No new disease identified in the abdomen or pelvis. Cholelithiasis. Signed: Beto Bianchi Verified Date/Time: 11/03/2021 07:33:51 CT, CHEST, WITH IV [id number] 07:33:00T2N0 bladder cancer restagingPlease compare to prior imagingSchedule early to mid October 2021UnlistedReason for Exam - Click Yes and Enter Reason Below->YesUnlisted Reason for Exam->Malignant neoplasm of overlapping sites of bladder [facility] MERCAD[facility] : 1945 Sex: [...] renal collecting system. Status post cystectomy, with Keya P[place] pouch. Pouch wall remains mildly thickened, but [...] abdomen or pelvis. Cholelithiasis. Signed: [facility]o [facility]chi [facility] Verified Date/Time: 11/03/2021 07:33:51 POCT URINALYSIS [id number] 00:00:00 Test Item Value Reference Range Interpretation Comments COLOR UA (test code = 5778-6) Yellow YELLOW/STRAW CLARITY UA (test code = 90171-8) Clear CLEAR GLUCOSE UA (test code = 5792-7) Negative NEGATIVE BILIRUBIN UA (test code = 5770-3) Negative NEGATIVE KETONES UA (test code = 29226-0) Negative NEGATIVE SPECIFIC GRAVITY UA (test code [...] NEGATIVE REDUCING SUBSTANCES URINE (test code = 12008-6) [facility], WITH IV [id number] 13:55:00Unlisted Reason for Exam - Click Yes and Enter Reason Below->YesUnlisted Reason for Exam->Malignant neoplasm of overlapping sites of bladder [facility] : 1945 Sex: FFINAL [...] use of iterative reconstructive technique. Comparison Film: May 03, 2021, January 18, 2021 Discussion: There is a right-sided Port-A-Cath. No supraclavicular, axillary, mediastinal or hilar lymphadenopathy. Heart is borderline enlarged. No pericardial effusion. There is no new mass or consolidation. No effusion. Central airways arepatent. No liver mass is identified. There is a tiny stone in gallbladder. No ductal dilatation. Spleen, pancreas, adrenal glands are normal. Kidneys demonstrate no hydronephrosis, mass or contour deforming lesion. There is bilateral pelviectasis. No bowel obstruction, or abnormal bowel wall thickening. Patient is status post cystectomy, with Key[place] P[place] pouch. Pouch wall is mildly thickened. Uterus is also absent. No adnexal mass. There is no adenopathy. No ascites. Bony structures demonstrate degenerative changes. No suspicious bony lesion is identified. Impression: Persistent wall thickening of the [place] pouch. No metastatic disease is identified in the chest, abdomen or pelvis. Cholelithiasis. Signed: Beto Bianchi Verified Date/Time: 07/29/2021 13:55:07 Reading Location: [place] [id number] OrthoConsult Reading Room CT, [id number] 13:55:00 Unlisted Reason for Exam - Click Yes and Enter Reason Below->YesUnlisted Reason for Exam->Malignant neoplasm of overlapping sites of bladderWill this procedure require oral contrast?->No [facility] MER[facility] : 1945 Sex: [...] thickening. Patient is status post cystectomy, with [place] pouch. Pouch wall is mildly thickened. Uterus is also absent. No adnexal mass. There is no adenopathy. No ascites. Bony structures demonstrate degenerative changes. No suspicious bony lesion is identified. Impression: Persistent wall thickening of the [place] pouch. No metastatic disease is identified in the chest, abdomen or pelvis. Cholelithiasis. Signed: Beto Bianchi Verified Date/Time: 07/29/2021 13:55:07 Reading Location: [facility] C013X Ortho Consult Reading Room POC-Creatinine 2021-07-29 13:03:28 Test Item Value Reference Range Interpretation Comments POC-Creatinine (test 1.0 mg/dL 0.6-1.3 : TESTE D AT [place] [address] code = 10931-0) [place] [address] 0: Bobbin Dumper/Techni kylie ID = [id number] for Penny , Carri POC-EGFR (test code 54 mL/min/1.73M2 = 25638-2) [facility] [id number] 13:03:28 Test Item Value Reference Range Interpretation Comments POC-Creatinine (test 1.0 mg/dL 0.6-1.3 : TESTE D AT [place] [address] code = 19760-8) [place] [address] 0: Bobbin Dumper/Techni kylie ID = [id number] for Penny , Carri POC-EGFR (test code 54 mL/min/1.73M2 = 26726-9) [facility] CenterPOC-[id number] 13:03:28 Test Item Value Reference Range Interpretation Comments POC-Creatinine (test 1.0 mg/dL 0.6-1.3 : TESTE D AT [place] [address] code = 08551-6) [place] [address] 0: Bobbin Dumper/Techni kylie ID = [id number] for Penny , Carri POC-EGFR (test code 54 mL/min/1.73M2 = 08531-4) [facility] [id number] 13:03:28 Test Item Value Reference Range Interpretation Comments POC-Creatinine (test 1.0 mg/dL 0.6-1.3 : TESTE D AT [facility] 7200 code = 58112-0) [facility] DG A, [facility] 7703 0: Bobbin Dumper/Techni kylie ID = [id number] for Penny , Carri POC-EGFR (test code 54 mL/min/1.73M2 = 60679-1) [facility]-[id number] 13:03:28 Test Item Value Reference Range Interpretation Comments POC-Creatinine (test 1.0 mg/dL 0.6-1.3 : TESTE D AT [facility] 7200 code = 1859) [facility] A, [facility] 7703 0: Bobbin Dumper/Techni kylie ID = [id number] for Penny , Carri POC-EGFR (test code 54 mL/min/1.73M2 = 1860) [facility]-[id number] 13:03:28 Test Item Value Reference Range Interpretation Comments POC-CREATININE 1.0 mg/dL 0.6-1.3 : TESTED AT [facility] (BEAKER) (test 7200 [facility] code = 1859) [facility] 7 [address]: Bobbin Dumper/Techni kylie ID = [id number] for Penny, Carri POC-EGFR 54 mL/min/1.73M2 (BEAKER) (test code = 1860) CT, [id number] 12:39:00Restaging bladder cancerUnlisted Reason for Exam - Click Yes and Enter Reason Below->YesUnlisted Reason for Exam->Malignant neoplasm of overlapping sites of bladderWill this procedure require oral contrast?->No[facility] : 1945 Sex: [...] inthe chest, abdomen or pelvis. Signed: Beto Bianchimercy [facility] Verified Date/Time: 05/03/2021 12:39:20 Reading Location: [address] Consult Reading Room CT, CHEST, WITH IV [id number] 12:39:00Restaging bladder cancerUnlisted Reason for Exam - Click Yes and Enter Reason Below- >YesUnlisted Reason for Exam->Malignant neoplasm of overlapping sites of bladder[facility] ALEX[facility]RIA MERCADO : 1945 Sex: [...] no significant hydronephrosis. Status post cystectomy with Key[place] P[place] pouch. There is mild persistent segmental pouch wall thickening. No evidence of bowel obstruction, or abnormal bowel wall thickening. No adenopathy or mass lesion is identified. No ascites. Bony structures demonstrate degenerative changes. No suspicious bony lesion is identified. Impression: Persistent mild segmental wall thickening of the [place] pouch. No new disease identified inthe chest, abdomen or pelvis. Signed: Beto Bianchi Verified Date/Time: 05/03/2021 12:39:20 Reading Location: [facility] C013X [facility] Consult Reading Room [id number] 11:16:33 Test Item Value Reference Range Interpretation Comments POC-CREATININE 1.0 mg/dL 0.6-1.3 : TESTED AT [facility] ([facility]) (test 7200 [facility] BLDG code = 1859) A, [place] [address]: Bobbin Dumper/Techni kylie ID = [id number] for Nacho Gomez POC-EGFR 54 mL/min/1.73M2 ([facility]) (test code = 1860) CT, [id number] 13:16:00Restaging bladder cancerUnlisted Reason for Exam - Click Yes and Enter Reason Below->YesUnlisted Reason for Exam->Malignant neoplasm of overlapping sites of bladderWill this procedure require oral contrast?->No[facility]LL [facility] JESS ALEXANDRIANOHEMY MELENDEZ : 1945 Sex: FFINAL [...] unchanged. Patient is status post cystectomy with [place] P[place] pouch. Pouch wall thickening has decreased but there is persistent mild wall thickening anteriorly. No bowel obstruction, or abnormal bowel wall thickening. There is no ascites, free air or adenopathy. Bony structures demonstrate degenerative changes.No suspicious bony lesion is identified. Impression: No metastatic disease identified in the chest, abdomen or pelvis. Decreased wall thickening of the Key[place] P[place] pouch. Signed: Beto Bianchi MDReport VerifiedDate/Time: 01/18/2021 13:16:05 Reading Location: [facility] B1 C013X Ortho Consult Reading Room Electronical ly signed by: BETO BIANCHI M.D. on 01/18/2021 01:16 PMCT, CHEST, WITH IV CONTRAST 2021-01-18 13:16:00Restaging bladder cancerUnlisted Reason for Exam - Click Yes and Enter Reason Below->YesUnlisted Reason for Exam->Malignant neoplasm of overlapping sites of bladder [facility] : 1945 Sex: [...] unchanged. Patient is status post cystectomy with Key[place] P[place] pouch. Pouch wall thickening has decreased but there is persistent mild wall thickening anteriorly. No bowel obstruction, or abnormal bowel wall thickening. There is no ascites, free air or adenopathy. Bony structures demonstrate degenerative changes.No suspicious bony lesion is identified. Impression: No metastatic disease identified in the chest, abdomen or pelvis. Decreased wall thickening of the Jazzy pouch. Signed: Beto Bianchieport VerifiedDate/Time: 01/18/2021 13:16:05 Reading Location: [address] Ortho Consult Reading Room Electronical ly signed by: BETO BIANCHI M.D. on 01/18/2021 01:16 [id number] 12:41:00 Test Item Value Reference Range Interpretation Comments POC-CREATININE 1.0 mg/dL 0.6-1.3 : TESTED AT [facility] ([facility]) (test [address] [facility] code = 1859) [facility] 7 1822: Bobbin Dumper/Techni kylie ID = [id number] for MANNY ISLAS POC-EGFR 54 mL/min/1.73M2 ([facility]) (test code = 1860) CT, CHEST, WITH IV [id number] 10:47:00Unlisted Reason for Exam - Click Yes and Enter Reason Below->YesUnlisted Reason for Exam->Malignant neoplasm of overlapping sites of bladder [facility] JESSALEXANDRIA HARRIS AL : 1945 Sex: FFINAL REPORT CT [...] April 25, 2020 Discussion: There is a sqftq-ittntFcna-K-Cath. No supraclavicular, axillary, mediastinal or hilar lymphadenopathy. [...] status post cystectomy with Jazzy pouch. There ispersistent wall thickening along the [...] pelvis. Persistent medial wall thickening of the Key[place] P[place] pouch, suggest attention on follow-up exams. This finding can also be correlated with urinalysis to exclude infection. Signed: Beto Bianchi Verified Date/Time: 10/04/2020 10:47:02 Reading Location: [facility] C013X [facility] Consult Reading Room CT, [id number] 10:47:00Unlisted Reason for Exam - Click Yes and Enter Reason Below->YesUnlisted Reason for Exam->Malignant neoplasm of overlapping sites of bladderWill this procedure require oral contrast?->Yes [facility] : 1945 Sex: FFINAL [...] April 25, 2020 Discussion: There is a pszeq-dvmmlPfvk-Q-Cath. No supraclavicular, axillary, mediastinal or hilar lymphadenopathy. [...] stone. Patient is status post cystectomy with Key[place] P[place] pouch. There ispersistent wall thickening along the [...] pelvis. Persistent medial wall thickening of the [place] pouch, suggest attention on follow-up exams. This finding can also be correlated with urinalysis to exclude infection. Signed: Beto Bianchi MDReport Verified Date/Time: 10/04/2020 10:47:02 Reading Location: [facility] B1 C013X Ortho Consult Reading Room -[id number] 08:59:00 Test Item Value Reference Range Interpretation Comments POC-CREATININE 1.0 mg/dL 0.6-1.3 : TESTED AT [facility] ([facility]) (test [address] [facility] code = 1859) [facility] 7 7030: Bobbin Dumper/Techni kylie ID = [id number] for MANNY ISLAS POC-EGFR 54 mL/min/1.73M2 ([facility]) (test code = 1860) US PELVIS COMPLETE WITH [id number] 23:47:141. ?Status post hysterectomy. Bilateral ovaries were not visualized, may besurgically absent. Preliminary Report Dictated by Resident: Teo Morley MD., have reviewed this study and agree with the abovereport.EXAM: US PELVIS COMPLETE WITH TRANSVAGINAL HISTORY: 74 years -old female status post cystectomy and hysterectomy withpost menopausal bleeding . TECHNIQUE: Transabdominal and transvaginal ultrasound imaging of the pelviswas performed including color Doppler evaluation. Global Logistics Manager imageswere obtained for the record. COMPARISON: None FINDINGS: Uterus: Status post hysterectomy. The vagina cuff is unremarkable. Right Adnexa:Ovary: Not visualized Left Adnexa:Ovary : Not vis ualized. Cul-de-sac: No free fluid. [facility], Radiant Results Inft User - 07/19/2020 5:48 PM CSTEXAM: USPELVIS COMPLETE WITH TRANSVAGINALHISTORY: 74 years -old female status post cystectomy and hysterectomy withpost menopausal bleeding . TECHNIQUE: Transabdominal and transvaginal ultrasound imaging of the pelviswas performed including color Doppler evaluation. Global Logistics Manager imageswere obtained for the record.COMPARISON: NoneFINDINGS:Uterus: Status post hysterectomy. The vagina cuff is unremarkable.Right Adnexa:Ovary: Not visualizedLeft Adnexa:Ovary : Not visualized.Cul-de-sac: No free fluid.IMPRESSION1. Status post hysterectomy. Bilateral ovaries were not visualized, may besurgically absent.Preliminary Report Dictated by Resident: Teo Valdes MD., have reviewed this study and agree with the abovereport.[facility] HEAD [id number] 23:45:31 Nodule 1 located in the upper [...] years(from date of in itial exam 07/19/2020) [facility], Radiant Results Inft User - 07/19/2020 5:46 [...] follow-upPreliminary Report Dictated by Resident: Teo Valdes Bezold, MD., have reviewed this study and agree with the abovereport.[facility] [id number] 18:20:10Examination:BI SCREENING MAMMOGRAM BILATERAL History:Patient is 74 [...] - Bilateral BI-RADS Category: Both 2 - [facility]UnKnapp [facility] CenterCT, CHEST, WITH IV CONTRAST 2020-07-17 15:58:00Unlisted Reason for Exam - Click Yes and Enter Reason Below- >YesUnlisted Reason for Exam->Malignant neoplasm of overlapping sites of bladderCH[facility] ALEXAND[facility] MERCAD[facility] : 1945 Sex: [...] cystectomy. There is a right lower quadrant Key[place] Paha pouch with a midline urostomy. There is [...] chest, abdomen, or pelvis. Signed: Gio Prasad MDRbristol hospital Verified Date/Time: 07/17/2020 15:58:18 [facility] [id number] 15:58:00Unlisted Reason for Exam - Click Yes and Enter Reason Below->YesUnlisted Reason for Exam->Malignant neoplasm of overlapping sites of bladder [facility] JESS ALEXANDRIANOHEMY MELENDEZ : 1945 Sex: FFINAL REPORT TECHNIQUE: CT [...] cystectomy. There is a right lower quadrant Key[place] P[place] pouch with a midline urostomy. There is [...] Gio Prasad MDReport Verified Date/Time: 07/17/2020 15:58:18 [id number] 10:41:00 Test Item Value Reference Range Interpretation Comments POC-CREATININE 0.8 mg/dL 0.6-1.3 : TESTED AT [facility] ([facility]) (test [address] [facility] E BLDG code = 1859) A, [facility] 7 7030: Bobbin Dumper/Techni kylie ID = [id number] for MANNY ISLAS POC-EGFR 70 mL/min/1.73M2 ([facility]) (test code = 1860) POCT URINALYSIS [id number] 00:00:00 Test Item Value Reference Range Interpretation Comments COLOR UA (test code = 5778-6) Yellow YELLOW/STRAW CLARITY UA (test code = 97539-1) Clear CLEAR GLUCOSE UA (test code = 5792-7) Negative NEGATIVE BILIRUBIN UA (test code = 5770-3) Negative NEGATIVE KETONES UA (test code = 35757-6) Negative NEGATIVE SPECIFIC GRAVITY UA (test code [...] NEGATIVE REDUCING SUBSTANCES URINE (test code = 08316-0) Lab Interpretation (test code = Abnormal 56153-3) [facility] [id number] 13:05:00 Test Item Value Reference Range Interpretation Comments BUN (test code = BUN) 8 7-25 [facility] [id number] 13:05:00 Test Item Value Reference Range Interpretation Comments Creatinine Lvl (test code = Creatinine 0.83 0.60-0.93 Lvl) [facility] [id number] 13:05:00 Test Item Value Reference Range Interpretation Comments eGFR NON-AFR. MACANESE (test code = 69 eGFR NON-AFR. MACANESE) [facility]CHE[facility] [id number] 13:05:00 Test Item Value Reference Range Interpretation Comments eGFR (test code = eGFR 81 ) [facility] [id number] 13:05:00 Test Item Value Reference Range Interpretation Comments B/C Ratio (test code = B/C NOT APPLICABLE 6-22 Ratio) [facility] [id number] 13:05:00 Test Item Value Reference Range Interpretation Comments BUN (test code = BUN) 8 02-[address] [facility]CHE[facility] [id number] 13:05:00 Test Item Value Reference Range Interpretation Comments Creatinine Lvl (test code = Creatinine 0.83 0.60-0.93 Lvl) [facility]CHE[facility] [id number] 13:05:00 Test Item Value Reference Range Interpretation Comments eGFR NON-AFR. MACANESE (test code = 69 eGFR NON-AFR. MACANESE) [facility]annVitrina [id number] 13:05:00 Test Item Value Reference Range Interpretation Comments eGFR (test code = eGFR 81 ) [facility] [id number] 13:05:00 Test Item Value Reference Range Interpretation Comments B/C Ratio (test code = B/C NOT APPLICABLE 6-22 Ratio) [facility] [id number] 13:05:00 Test Item Value Reference Range Interpretation Comments BUN (test code = BUN) 8 02-10 [facility] [id number] 13:05:00 Test Item Value Reference Range Interpretation Comments Creatinine Lvl (test code = Creatinine 0.83 0.60-0.93 Lvl) [facility] [id number] 13:05:00 Test Item Value Reference Range Interpretation Comments eGFR NON-AFR. MACANESE (test code = 69 eGFR NON-AFR. MACANESE) [facility] [id number] 13:05:00 Test Item Value Reference Range Interpretation Comments eGFR (test code = eGFR 81 ) [facility] [id number] 13:05:00 Test Item Value Reference Range Interpretation Comments B/C Ratio (test code = B/C NOT APPLICABLE 6-22 Ratio) [facility] [id number] 13:05:00 Test Item Value Reference Range Interpretation Comments BUN (test code = BUN) 02-10 [facility] [id number] 13:05:00 Test Item Value Reference Range Interpretation Comments Creatinine Lvl (test code = Creatinine 0.83 0.60-0.93 Lvl) [facility] [id number] 13:05:00 Test Item Value Reference Range Interpretation Comments eGFR NON-AFR. MACANESE (test code = 69 eGFR NON-AFR. MACANESE) [facility] [id number] 13:05:00 Test Item Value Reference Range Interpretation Comments eGFR (test code = eGFR 81 ) [facility] [id number] 13:05:00 Test Item Value Reference Range Interpretation Comments B/C Ratio (test code = B/C NOT APPLICABLE 01-08 Ratio) [facility] [id number] 13:05:00 Test Item Value Reference Range Interpretation Comments BUN (test code = BUN) 02-10 [facility] [id number] 13:05:00 Test Item Value Reference Range Interpretation Comments Creatinine Lvl (test code = Creatinine 0.83 0.60-0.93 Lvl) [facility] [id number] 13:05:00 Test Item Value Reference Range Interpretation Comments eGFR NON-AFR. MACANESE (test code = 69 eGFR NON-AFR. MACANESE) [facility] [id number] 13:05:00 Test Item Value Reference Range Interpretation Comments eGFR (test code = eGFR 81 ) [facility] [id number] 13:05:00 Test Item Value Reference Range Interpretation Comments B/C Ratio (test code = B/C NOT APPLICABLE 01-08 Ratio) [facility] WITH IV [id number] 10:03:00Unlisted Reason for Exam - Click Yes [...] Shankar MDReport VerifiedDate/Time: 04/26/2020 10:03:24 Reading Location: [facility] Diagnostic Imaging Reading Room - [place] [address] [address], [id number] 10:03:00Unlisted Reason for Exam - Click Yes [...] Shankar MDReport VerifiedDate/Time: 04/26/2020 10:03:24 Reading Location: [facility] Diagnostic Imaging Reading Room - [facility] F1 1129 -[id number] 09:03:00 Test Item Value Reference Range Interpretation Comments POC-CREATININE 0.8 mg/dL 0.6-1.3 : TESTED AT [facility] ([facility]) (test [address] code = 1859) [place] [address]: Bobbin Dumper/Techni kylie ID = [id number] for GERSON WOODSON ICA POC-EGFR 70 mL/min/1.73M2 ([facility]) (test code = 1860) COMPREHENSIVE METABOLIC [id number] 07:49:43 Test Item Value Reference Range Interpretation Comments GLUCOSE (test code = See_Comment H [Autom ated message] 2345-7) The system [employer] generated this result transmitted ref erence range: [...] See_Comment [Au tomated message] 2160-0) The system [employer] generated this result transmitted ref erence range: 0.60 - 1 .30 MG/DL. The refe rence range was not u sed to interpret this result as normal/abnor mal. EGFR AA (test code = See_Comment [Autom ated message] 00363-9) The system [employer] generated this result transmitted ref erence range: >60 ML/MIN/1.73. Th e reference range was not used to int erpret this result as normal/abnormal . EGFR (test code = See_Comment [Automate d message] 16885-4) The system [employer] generated this result transmitted ref erence range: >60 ML/MIN/1.73. Th e reference range was not used to int erpret this result as normal/abnormal . BUN/CREAT RATIO (test See_Comment [Auto mated message] code = 3097-3) The system [employer] generated this result transmitted ref erence range: 6 - 28 R ATIO. The reference r anil was not used to interpret this result as normal/abnor mal. SODIUM (test code = See_Comment [Automa tom message] 2951-2) The system [employer] generated this result transmitted ref erence range: 133 - 14 6 MEQ/L. The refe rence range was not u sed to interpret this result as normal/abnor mal. POTASSIUM (test code = See_Comment [Aut omated message] 2823-3) The system [employer] generated this result transmitted ref erence range: 3.5 - 5. 4 MEQ/L. The refe rence range was not u sed to interpret this result as normal/abnor mal. CHLORIDE (test code = See_Comment [Auto mated message] 2075-0) The system [employer] generated this result transmitted ref erence range: 95 - 107 MEQ/L. The reference r anil was not used to interpret this result as normal/abnor mal. CO2 (test code = See_Comment [Automated message] 1963-8) The system [employer] generated this result transmitted ref erence range: 19 - 31 MEQ/L. The reference r anil was not used to interpret this result as normal/abnor mal. CALCIUM (test code = See_Comment [Autom ated message] 23071-7) The system [employer] generated this result transmitted ref erence range: 8.5 - 10 .5 MG/DL. The refe rence range was not u sed to interpret this result as normal/abnor mal. PROTEIN TOTAL (test See_Comment [Automa tom message] code = 2885-2) The system [facility] generated this result transmitted ref erence range: 6.1 - 8. 3 G/DL. The reference r anil was not used to interpret this result as normal/abnor mal. ALBUMIN (test code = See_Comment [Autom ated message] 85352-2) The system [employer] generated this result transmitted ref erence range: 3.5 - 5. 2 G/DL. The reference r anil was not used to interpret this result as normal/abnor mal. GLOBULINS, SERUM, TOTAL See_Comment [Au tomated message] (test code = 30786-2) The sy stem which generated this result transmitted ref erence range: 1.9 - 3. 7 G/DL. The reference r anil was not used to interpret this result as normal/abnor mal. A/G RATIO (test code = See_Comment [Aut omated message] 1759-0) The system [employer] generated this result transmitted ref erence range: 1.0 - 2. 6 RATIO. The refe rence range was not u sed to interpret this result as normal/abnor mal. BILIRUBIN TOTAL (test See_Comment [Auto mated message] code = 1975-2) The system [employer] [facility] generated this result transmitted ref erence range: <=1.2 MG /DL. The reference r anil was not used to interpret this result as normal/abnor mal. ALKALINE PHOSPHATASE 58 U/L 40-142 (test code = 6768-6) AST (SGOT) (test code = 22 U/L 9-40 1920-8) ALT (SGPT) (test code = 17 U/L 5-40 Unl ess Otherwise 1744-2) Indicated, All Testing Performed At: [facility], [address] [place] [address] Laborator y Director: Robbie Wagner M.D. CLIA Number [id number] Cap Acc[place] o. [id number] Lab Interpretation Abnormal (test code = 39946-1) [facility] W/AUTO DIFF WITH [id number] 06:08:57 Test Item Value Reference Range Interpretation Comments WHITE BLOOD CELL COUNT See_Comment [Aut omated message] (test code = 32662-5) The sy stem which generated this result transmitted ref erence range: 3.5 - 10 .0 K/UL. The refer ence range was not u sed to interpret this result as normal/abnor mal. RED BLOOD CELL COUNT See_Comment L [Autom ated message] (test code = 21417-3) The sy stem which generated this result transmitted ref erence range: 3.80 - 5 .20 M/UL. The refer ence range was not u sed to interpret this result as normal/abnor mal. HEMOGLOBIN (test code = See_Comment L [Au tomated message] 718-7) The system [employer] generated this result transmitted ref erence range: 12.0 - 1 6.0 G/DL. The refer ence range was not u sed to interpret this result as normal/abnor mal. HEMATOCRIT (test code = 31.6 % 35-46 L 04179-9) MEAN CORPUSCULAR VOLUME 91.1 fL 80-99 (test code = 95104-2) MEAN CORPUSCULAR 29.7 PG 25-34 HEMOGLOBIN (test code = 53063-0) MEAN CORPUSCULAR See_Comment [Automated message] HEMOGLOBIN CONC (test The sy stem which code = 45624-0) generated th is result transmitted ref erence range: 31.0 - 3 6.0 G/DL. The refer ence range was not u sed to interpret this result as normal/abnor mal. RED CELL DISTRIBUTION 14.5 % 11.5-15 WIDTH (test code = 19936-6) NEUTROPHILS % (test code 62.8 % 40-75 = 58829-5) LYMPHOCYTES % (test code 23.4 % 20-45 = 21845-9) MONOCYTES % (test code = 9.4 % 4-12 43029-1) EOSINOPHILS % (test code 3.8 % 0-7 = 36713-7) BASOPHILS % (test code = 0.6 % 0-2 01007-5) PLATELET COUNT (test See_Comment Unless Otherwise code = 64705-6) Indicated, A ll Testing Perform ed At: [facility], [address] [place] [address] Laborator y Director: Robbie Wagner M.D. CLIA Number [id number] [employer] Accreditation [place] o. [id number] [Autom ated message] The sy stem which generated this result transmit tom reference range : 130 - 400 K/UL. The reference range was not used to int erpret this result as normal/abnormal . Lab Interpretation (test Abnormal code = 39803-7) [facility]2020-02-10 01:04:00 Test Item Value Reference Range Interpretation Comments SARS-COV2/RT-PCR (test code Negative Not Detected, Negative, = 8006235) See external report for linked test SARS-COV-2 PERFORMING LAB C[facility] (test code = 9937509) URINE [id number] 12:03:00 Test Item Value Reference Range Interpretation Comments CULTURE (BEAKER) (test >100,000 col/mL skin code = 1095) wendy HEMOGLOBIN AND [id number] 14:07:00 Test Item Value Reference Range Interpretation Comments HEMOGLOBIN (BEAKER) (test code = 7.5 GM/DL 11.2-15.7 L 410) HEMATOCRIT (BEAKER) (test code = 23.8 % 34.1-44.9 L 411) Bobbin Dumper ID - 6000BASIC METABOLIC [id number] 07:06:00 Test Item Value Reference Range Interpretation [...] S NOT APPLICABLE FOR DIALYSIS PATIEN TS. Bobbin Dumper ID - CHEOAYA [id number] 07:03:00 Test Item Value Reference Range Interpretation Comments PHOSPHORUS (BEAKER) (test code = 3.7 mg/dL 2.3-4.7 604) Bobbin Dumper ID - CHEOAYA [id number] 07:03:00 Test Item Value Reference Range Interpretation Comments MAGNESIUM (BEAKER) (test code = 1.9 mg/dL 1.6-2.6 627) Bobbin Dumper ID - [place] LHEMOGLOBIN AND [id number] 06:03:00 Test Item Value Reference Range Interpretation Comments HEMOGLOBIN (BEAKER) (test code = 7.3 GM/DL 11.2-15.7 L 410) HEMATOCRIT (BEAKER) (test code = 22.5 % 34.1-44.9 L 411) Bobbin Dumper ID - 6000BASIC METABOLIC [id number] 08:13:00 Test Item Value Reference Range Interpretation [...] S NOT APPLICABLE FOR DIALYSIS PATIEN TS. Bobbin Dumper ID - JULI [id number] 08:10:00 Test Item Value Reference Range Interpretation Comments MAGNESIUM (BEAKER) (test code = 1.9 mg/dL 1.6-2.6 627) Bobbin Dumper ID - JULI [id number] 08:10:00 Test Item Value Reference Range Interpretation Comments PHOSPHORUS (BEAKER) (test code = 4.2 mg/dL 2.3-4.7 604) Bobbin Dumper ID - NTPOperator ID - JULI CHEMOGLOBIN AND [id number] 05:10:00 Test Item Value Reference Range Interpretation Comments HEMOGLOBIN (BEAKER) (test code = 8.1 GM/DL 11.2-15.7 L 410) HEMATOCRIT (BEAKER) (test code = 24.3 % 34.1-44.9 L 411) Bobbin Dumper ID - [id number] 07:07:00 Test Item Value Reference Range Interpretation Comments PHOSPHORUS (BEAKER) (test code = 2.8 mg/dL 2.3-4.7 604) Bobbin Dumper ID - [place] [id number] 07:07:00 Test Item Value Reference Range Interpretation Comments MAGNESIUM (BEAKER) (test code = 1.6 mg/dL 1.6-2.6 627) Bobbin Dumper ID - [place] LBASIC METABOLIC [id number] 07:07:00 Test Item Value Reference Range Interpretation [...] S NOT APPLICABLE FOR DIALYSIS PATIEN TS. Bobbin Dumper ID - [place] LHEMOGLOBIN AND [id number] 06:28:00 Test Item Value Reference Range Interpretation Comments HEMOGLOBIN (BEAKER) (test code = 8.0 GM/DL 11.2-15.7 L 410) HEMATOCRIT (BEAKER) (test code = 24.6 % 34.1-44.9 L 411) Bobbin Dumper ID - DestinRAD, CHEST, 1 VIEW, NON [id number] 18:35:00Reason for exam:->check PICC placementShould this be [...] Date/Time: 02/03/2020 18:35:36 Reading Location: [facility] Reading Room PHOSPHORUS 2020-02-03 07:55:00 Test Item Value Reference Range Interpretation Comments PHOSPHORUS (BEAKER) (test code = 2.4 mg/dL 2.3-4.7 604) Bobbin Dumper ID Andrea DA [id number] 07:55:00 Test Item Value Reference Range Interpretation Comments MAGNESIUM (BEAKER) (test code = 1.7 mg/dL 1.6-2.6 627) Bobbin Dumper ID Andrea DA FBASIC METABOLIC [id number] 07:55:00 Test Item Value Reference Range Interpretation [...] S NOT APPLICABLE FOR DIALYSIS PATIEN TS. Bobbin Dumper ID Andrea DA FHEMOGLOBIN AND [id number] 06:56:00 Test Item Value Reference Range Interpretation Comments HEMOGLOBIN (BEAKER) (test code = 8.2 GM/DL 11.2-15.7 L 410) HEMATOCRIT (BEAKER) (test code = 24.2 % 34.1-44.9 L 411) Bobbin Dumper ID - 6000HEMOGLOBIN AND [id number] 19:28:00 Test Item Value Reference Range Interpretation Comments HEMOGLOBIN (BEAKER) (test code = 8.3 GM/DL 11.2-15.7 L 410) HEMATOCRIT (BEAKER) (test code = 25.0 % 34.1-44.9 L 411) Bobbin Dumper ID - [id number] (HEMOGRAM ONLY)2020-02-02 05:09:00 Test [...] WBC 0-0 (BEAKER) (test code = 413) [id number] 04:19:00 Test Item Value Reference Range Interpretation Comments PHOSPHORUS (BEAKER) (test code = 1.9 mg/dL 2.3-4.7 L 604) Bobbin Dumper ID - PIJACOB [id number] 04:19:00 Test Item Value Reference Range Interpretation Comments MAGNESIUM (BEAKER) (test code = 1.9 mg/dL 1.6-2.6 627) Bobbin Dumper ID - PIAYA LBASIC METABOLIC [id number] 04:19:00 Test Item Value Reference Range Interpretation [...] S NOT APPLICABLE FOR DIALYSIS PATIEN TS. Bobbin Dumper ID - PIAYA LHEMOGLOBIN AND [id number] 04:00:00 Test Item Value Reference Range Interpretation Comments HEMOGLOBIN (BEAKER) 5.9 GM/DL 11.2-15.7 LL Post alfonzo candelaria per (test code = 410) [id number] HEMATOCRIT (BEAKER) 18.0 % 34.1-44.9 L (test code = 411) Bobbin Dumper ID - [id number] 13:30:00Surgical Pathology Report Case: [id number] Authorizing Provider: Vita Jaimes MD Collected: 01/30/2020 09:40 AM Ordering Location: [facility] PERIOPERATIVE Received: 01/30/2020 10:59 AM SERVICES Pathologist: [...] DIAGNOSISJ. 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 SOFT TISSUE, LABELED "LYMPH NODES, PRE-SACRAL", EXCISION: - BENIGN FIBROADIPOSE TISSUE, NO LYMPHNODES IDENTIFIEDL. APPENDIX, APPENDECTOMY: - FIBROUS OBLITERATION OF THE TIP Signing Pathologist Direct Phone Line: [phone] signed by Reinaldo Matta MD on 02/01/2020 at 1:30PMAll of the residual invasive tumor is of [...] (pT): pT3a Regional Lymph Nodes (pN): pN0 67255 x [id number] X [id number] diagnosis: Malignant neoplasm of the urinary bladder. Procedure: Radical cystectomy withcreation of continent diversion, bilateral pelvic lymph node dissection. A. Right common iliac lymphnodes; B. Right external iliac lymph nodes; C. [...] internal iliac lymph nodes" is a yellow-red fibrofattysoft tissue that measures 3.5 x 2.5 x [...] the OR for intraoperative frozen section diagnosis giulia 1.2 x 0.8 x 0.6 cm soft tissue specimen. The specimen shows a ureter with a lumen measuring 0.3 cmin diameter. The specimen is entirely submitted for [...] The endometrial cavity measures 1.5 cm from fpffg-fx-vcmub and 3.5 cm in length. The endometrium [...] orifice; J14, hyperemic bladder mucosa; J15, trigone, paper sales representative section; J16, bladder wall with [...] perivesical adipose tissue. K. Received in formalin labeledwith the patient's name, accession number and "presacral lymph nodes" is a red-yellow adipose tissuefragment that measures 3.0 x 2.0 x 0.5 [...] surgical margin at distal tip; L2, additional paper sales representative sections from appendix and the mesoappendix. MH/plFROZEN SECTION DIAGNOSIS: FSH: URETER, LEFT DISTAL MARGIN: - NEGATIVE FOR MALIGNANCY This is informed by Dr. Amaro to Dr. Jaimes on , at 11:19 a.m. FSI. RIGHT URETER, RIGHT DISTAL MARGIN: - NEGATIVE FOR MALIGNANCYThis is informed by Dr. Amaro to Dr. Jaimes on January 29 at 11:19 a.m.A-L Performed.HEMOGLOBIN AND [id number] 10:52:00 Test Item Value Reference Range Interpretation Comments HEMOGLOBIN (BEAKER) (test code = 7.1 GM/DL 11.2-15.7 L 410) HEMATOCRIT (BEAKER) (test code = 21.4 % 34.1-44.9 L 411) Bobbin Dumper ID - [id number] 06:15:00 Test Item Value Reference Range Interpretation Comments PHOSPHORUS (BEAKER) (test code = 2.5 mg/dL 2.3-4.7 604) Bobbin Dumper ID - CHEOAYA [id number] 06:15:00 Test Item Value Reference Range Interpretation Comments MAGNESIUM (BEAKER) (test code = 1.9 mg/dL 1.6-2.6 627) Bobbin Dumper ID - [place] LBASIC METABOLIC [id number] 06:15:00 Test Item Value Reference Range Interpretation [...] S NOT APPLICABLE FOR DIALYSIS PATIEN TS. Bobbin Dumper ID - PIAYA LHEMOGLOBIN AND [id number] 05:33:00 Test Item Value Reference Range Interpretation Comments HEMOGLOBIN (BEAKER) (test code = 7.0 GM/DL 11.2-15.7 L 410) HEMATOCRIT (BEAKER) (test code = 20.9 % 34.1-44.9 L 411) Bobbin Dumper ID - 6000BASIC METABOLIC [id number] 05:02:00 Test Item Value Reference Range Interpretation [...] S NOT APPLICABLE FOR DIALYSIS PATIEN TS. Bobbin Dumper ID - [id number] 04:59:00 Test Item Value Reference Range Interpretation Comments PHOSPHORUS (BEAKER) (test code = 4.0 mg/dL 2.3-4.7 604) Bobbin Dumper ID - [id number] 04:59:00 Test Item Value Reference Range Interpretation Comments MAGNESIUM (BEAKER) (test code = 1.4 mg/dL 1.6-2.6 L 627) Bobbin Dumper ID - DBHEMOGLOBIN AND [id number] 04:41:00 Test Item Value Reference Range Interpretation Comments HEMOGLOBIN (BEAKER) (test code = 9.4 GM/DL 11.2-15.7 L 410) HEMATOCRIT (BEAKER) (test code = 27.9 % 34.1-44.9 L 411) Bobbin Dumper ID - 6000BASIC METABOLIC [id number] 16:33:00 Test Item Value Reference Range Interpretation [...] S NOT APPLICABLE FOR DIALYSIS PATIEN TS. Bobbin Dumper ID - [id number] 16:29:00 Test Item Value Reference Range Interpretation Comments PHOSPHORUS (BEAKER) (test code = 5.0 mg/dL 2.3-4.7 H 604) Bobbin Dumper ID - [id number] 16:29:00 Test Item Value Reference Range Interpretation Comments MAGNESIUM (BEAKER) (test code = 1.2 mg/dL 1.6-2.6 L 627) Bobbin Dumper ID - BSCBC W/PLT COUNT & AUTO [id number] 16:14:00 Test Item Value Reference Range Interpretation [...] (BEAKER) (test code = 2801) BLOOD GAS, [id number] 16:08:00 Test Item Value Reference Range Interpretation [...] code = 1819) 100.0 % SODIUM NA-STAT [id number] 16:08:00 Test Item Value Reference Range Interpretation Comments SODIUM (BEAKER) (test code = 381) 133 meq/L 136-145 L GLUCOSE-STAT [id number] 16:08:00 Test Item Value Reference Range Interpretation Comments GLUCOSE RANDOM (BEAKER) (test code 224 mg/dL 70-110 H = 652) HGB/HCT (H&H) - STAT [id number] 16:08:00 Test Item Value Reference Range Interpretation Comments HEMOGLOBIN (BEAKER) (test code = 10.5 g/dL 12.0-15.0 L 410) HEMATOCRIT (BEAKER) (test code = 31.0 % 36.0-45.0 L 411) POTASSIUM-STAT [id number] 16:05:00 Test Item Value Reference Range Interpretation Comments POTASSIUM (BEAKER) (test code = 3.7 meq/L 3.6-5.5 379) CALCIUM, [id number] 14:59:00 Test Item Value Reference Range Interpretation Comments CALCIUM IONIZED (BEAKER) (test 1.07 mmol/L 1.12-1.27 L code = 698) PH, BLOOD (BEAKER) (test code = 7.29 1810) BLOOD GAS, [id number] 14:55:00 Test Item Value Reference Range Interpretation [...] = 1819) 60.0 % Temp 36.3CSODIUM NA-STAT [id number] 14:55:00 Test Item Value Reference Range Interpretation Comments SODIUM (BEAKER) (test code = 381) 134 meq/L 136-145 L Temp 36.3CGLUCOSE-STAT [id number] 14:55:00 Test Item Value Reference Range Interpretation Comments GLUCOSE RANDOM (BEAKER) (test code 226 mg/dL 70-110 H = 652) Temp 36.3CHGB/HCT (H&H) - STAT [id number] 14:55:00 Test Item Value Reference Range Interpretation Comments HEMOGLOBIN (BEAKER) (test code = 10.4 g/dL 12.0-15.0 L 410) HEMATOCRIT (BEAKER) (test code = 31.0 % 36.0-45.0 L 411) Temp 36.3CPOTASSIUM-STAT [id number] 14:51:00 Test Item Value Reference Range Interpretation Comments POTASSIUM (BEAKER) (test code = 3.8 meq/L 3.6-5.5 379) Temp 36.3CBLOOD GAS, [id number] 12:59:00 Test Item Value Reference Range Interpretation [...] (test code = 1819) 60.0 % TEMP-35.7CCALCIUM, [id number] 12:59:00 Test Item Value Reference Range Interpretation Comments CALCIUM IONIZED (BEAKER) (test 1.12 mmol/L 1.12-1.27 code = 698) PH, BLOOD (BEAKER) (test code = 7.37 1810) SODIUM NA-STAT [id number] 12:59:00 Test Item Value Reference Range Interpretation Comments SODIUM (BEAKER) (test code = 381) 133 meq/L 136-145 L TEMP-35.7CPOTASSIUM-STAT [id number] 12:59:00 Test Item Value Reference Range Interpretation Comments POTASSIUM (BEAKER) (test code = 3.4 meq/L 3.6-5.5 L 379) TEMP-35.7CGLUCOSE-STAT [id number] 12:59:00 Test Item Value Reference Range Interpretation Comments GLUCOSE RANDOM (BEAKER) (test code 193 mg/dL 70-110 H = 652) TEMP-35.7CHGB/HCT (H&H) - STAT [id number] 12:59:00 Test Item Value Reference Range Interpretation Comments HEMOGLOBIN (BEAKER) (test code = 8.1 g/dL 12.0-15.0 L 410) HEMATOCRIT (BEAKER) (test code = 24.0 % 36.0-45.0 L 411) TEMP-35.7CBLOOD GAS, [id number] 11:41:00 Test Item Value Reference Range Interpretation [...] code = 1819) 60.0 % SODIUM NA-STAT [id number] 11:41:00 Test Item Value Reference Range Interpretation Comments SODIUM (BEAKER) (test code = 381) 131 meq/L 136-145 L POTASSIUM-STAT [id number] 11:41:00 Test Item Value Reference Range Interpretation Comments POTASSIUM (BEAKER) (test code = 3.4 meq/L 3.6-5.5 L 379) GLUCOSE-STAT [id number] 11:41:00 Test Item Value Reference Range Interpretation Comments GLUCOSE RANDOM (BEAKER) (test code 176 mg/dL 70-110 H = 652) HGB/HCT (H&H) - STAT [id number] 11:41:00 Test Item Value Reference Range Interpretation Comments HEMOGLOBIN (BEAKER) (test code = 9.2 g/dL 12.0-15.0 L 410) HEMATOCRIT (BEAKER) (test code = 27.0 % 36.0-45.0 L 411) CALCIUM, [id number] 11:41:00 Test Item Value Reference Range Interpretation Comments CALCIUM IONIZED (BEAKER) (test 1.08 mmol/L 1.12-1.27 L code = 698) PH, BLOOD (BEAKER) (test code = 7.33 1810) PH, [id number] 11:38:00 Test Item Value Reference Range Interpretation Comments PH ARTERIAL (BEAKER) (test code = 383) 7.35 7.35-7.45 POTASSIUM-STAT [id number] 09:51:00 Test Item Value Reference Range Interpretation Comments POTASSIUM (BEAKER) (test code = 2.3 meq/L 3.6-5.5 LL 379) TEMP-34.8CALCIUM, [id number] 09:50:00 Test Item Value Reference Range Interpretation Comments CALCIUM IONIZED (BEAKER) (test 1.03 mmol/L 1.12-1.27 L code = 698) PH, BLOOD (BEAKER) (test code = 7.40 1810) BLOOD GAS, [id number] 09:49:00 Test Item Value Reference Range Interpretation [...] code = 1819) 60.0 % TEMP-34.8SODIUM NA-STAT [id number] 09:49:00 Test Item Value Reference Range Interpretation Comments SODIUM (BEAKER) (test code = 381) 130 meq/L 136-145 L TEMP-34.8GLUCOSE-STAT [id number] 09:49:00 Test Item Value Reference Range Interpretation Comments GLUCOSE RANDOM (BEAKER) (test code 119 mg/dL 70-110 H = 652) TEMP-34.8HGB/HCT (H&H) - STAT [id number] 09:49:00 Test Item Value Reference Range Interpretation Comments HEMOGLOBIN (BEAKER) (test code = 11.6 g/dL 12.0-15.0 L 410) HEMATOCRIT (BEAKER) (test code = 34.0 % 36.0-45.0 L 411) TEMP-34.8CBC W/PLT COUNT & AUTO [id number] 07:16:00 Test Item Value Reference Range Interpretation [...] 0-1 PERCENT (BEAKER) (test code = 2801) [id number] 14:45:00Medical Cytology Report Case: [id number] Authorizing Provider: Vita Jaimes MD Collected: 01/18/2020 02:09 PM Ordering Location: [facility] PERIOPERATIVE Received: 01/18/2020 03:29 PM SERVICES Pat hologist: Reinaldo Matta MD Specimen: Urine, Bladder Wash URINE, BLADDER WASHING (CYTOSPINS): - NEGATIVE FOR MALIGNANCY Signing Pathologist Direct Phone Line: [phone] signed by Reinaldo Matta MD on 01/19/2020 at 2:45 [id number] risk 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 who presents for restaging TURBT prior to RCURINE, BLADDER POTXGPK57 mls colorless fluid; 4 cytospinsCollected: [id number]: [id number], [facility] of [facility], [address] [place] [address], [facility], [address] [place] [address], [facility], [facility] of [facility], [address] [place] [address], VSMHLP [id number] 13:07:00Surgical Pathology Report Case: [id number] Authorizing Provider: Vita Jaimes MD Collected: 01/18/2020 02:31 PM Ordering Location: [facility] PERIOPERATIVE Received: 01/18/2020 03:17 PM [...] neck for bladder biopsy A. URINARY BLADDER, RIGHTPOSTERIOR LATERAL WALL, BIOPSY: - PREVIOUS RESECTION SITE CHANGES, NEGATIVE FOR MALIGNANCYB. URINARYBLADDER, 12 O'CLOCK BLADDER NECK, BIOPSY: - NONKERATINIZING SQUAMOUS MUCOSA, NEGATIVE FOR MALIGNANCYC. URINARY BLADDER, 3 O'CLOCK BLADDER NECK, BIOPSY, - UROTHELIAL CARCINOMA, HIGH GRADE (WHO GRADE 3),INVASIVE INTO LAMINA PROPRIA. - MUCOSA AND MUSCULARIS PROPRIA ARE ABSENTD. URINARY BLADDER, 6 O'CLOCK BLADDER NECK, BIOPSY: - SQUAMOUS METAPLASIA, NEGATIVE FOR MALIGNANCYE. URINARY BLADDER, 9 O'CLOCK BLADDER NECK, BIOPSY: - SQUAMOUS METAPLASIA, NEGATIVE FOR MALIGNANCY Signing Pathologist Direct Phone L ine: [phone] signed by Reinaldo Matta MD on 01/19/2020 at 1:07 PM90% of this tumor shows the plasmacytoid morphology as documented on a previous biopsy.91115 x 5 Malignant neoplasm of overlapping sites of bladder A. Bladder biopsy, right wallB. Bladder biopsyC. Bladder biopsy B. Bladder biopsyE. Bladder biopsyA. Received in formalin labeled with the patient's name, accessionnumber and "right posterior lateral bladder wall" is a 1.5 x 0.7 x 0.3 cm aggregate of buck-pink softtissue which is submitted in toto in A1.B. [...] is submitted in toto in A1.JONATHAN Santizo ([facility])cmPerformed.CYTOLOGY [id number] 17:00:00 Test Item Value Reference Range Interpretation Comments CYTOLOGY RESULT POINTER See Separate Report (FAINA) (test code = 2629) XR LUMBAR SPINE 2 VIEWS AP AND [id number] 21:07:27Lumbar Spine Radiographs: 3 views HISTORY: PainCOMPARISON: [...] L5-S1 facet arthropathy. IMPRESSION:No acute radiographic abnormality.Multilevel vneg-ba-nrsexqdy degenerative changes.Signed by: Dr. Ad Landa MD [...] osteophytosis.Mild L5-S1 facet arthropathy.IMPRESSION:No acute radiographic abnormality.Multilevel faom-pu-bdkqwwam degenerative changes.Signedby: Dr. Ad Landa MD on 01/06/2020 4:07 [facility] ABSOLUTE NEUTROPHIL [id number] 14:41:02 Test Item Value Reference Range Interpretation Comments WHITE BLOOD CELL COUNT See_Comment H [Aut omated message] (test code = 19908-7) The sy stem which generated this result transmitted ref erence range: 3.5 - 10 .0 K/UL. The refer ence range was not u sed to interpret this result as normal/abnor mal. RED BLOOD CELL COUNT See_Comment [Autom ated message] (test code = 82399-9) The sy stem which generated this result transmitted ref erence range: 3.80 - 5 .20 M/UL. The refer ence range was not u sed to interpret this result as normal/abnor mal. HEMOGLOBIN (test code See_Comment [Auto mated message] = 718-7) The system [employer] generated this result transmitted ref erence range: 12.0 - 1 6.0 G/DL. The refer ence range was not u sed to interpret this result as normal/abnor mal. HEMATOCRIT (test code 38.3 % 35-46 = 02103-3) MEAN CORPUSCULAR 90.1 fL 80-99 VOLUME (test code = 97130-4) MEAN CORPUSCULAR 29.4 PG 25-34 HEMOGLOBIN (test code = 33360-7) MEAN CORPUSCULAR See_Comment [Automated message] HEMOGLOBIN CONC (test The sy stem which code = 85954-5) generated th is result transmitted ref erence range: 31.0 - 3 6.0 G/DL. The refer ence range was not u sed to interpret this result as normal/abnor mal. RED CELL DISTRIBUTION 18.1 % 11.5-15 H WIDTH (test code = 17499-3) NEUTROPHILS % (test 51 % 40-75 SEGMENT ED code = 51413-3) NEUTROPHILS, MANUAL DIFFERENTIAL. BANDS % (test code = 5 % 0-8 48397-9) LYMPHOCYTES % (test 32 % 20-45 code = 21239-6) MONOCYTES % (test code 9 % 4-12 = 28260-3) EOSINOPHILS % (test 1 % 0-7 code = 15663-8) BASOPHILS % (test code 1 % 0-2 = 41920-5) METAMYELOCYTES PERCENT 1 % See_Comment H [Aut omated message] (test code = 47046-2) The sy stem which generated this result transmitted ref erence range: 0.0. The reference range was not used to int erpret this result as normal/abnormal . PLATELET COUNT (test See_Comment [Autom ated message] code = 85195-0) The system w [facility] generated this result transmitted ref erence range: 130 - 40 0 K/UL. The refer ence range was not u sed to interpret this result as normal/abnor mal. NEUTROPHILS ABSOLUTE See_Comment [Autom ated message] COUNT (test code = The syste m which 97140-9) generated this result transmitted ref erence range: 1.50 - 7 .50 K/UL. The refer ence range was not u sed to interpret this result as normal/abnor mal. COMMENTS (test code = (NOTE) FEW E LLIPTOCYTES 35879-8) SLIGHT ANISOCYT OSIS PLATELETS APPEA R ADEQUATE PLATEL ETS APPEAR NORMAL T ESTING PERFORMED AT [facility], I [place] [place], [place] [address] CLIA NO. [id number] Unless Otherwis e Indicated, All Testing Perform ed At: [facility], [address] [place] [address] Laborator y Director: Robbie Wagner M.D. IA Number [id number] Cap Accreditation N o. [id number] BALBIR (test code = BALBIR) PT FASTING Lab Interpretation Abnormal (test code = 11766-0) [facility] [id number] 14:32:27 Test Item Value Reference Range Interpretation Comments GLUCOSE (test code = See_Comment [Autom ated message] 2345-7) The system [employer] generated this result transmitted ref erence range: [...] [Auto mated message] = 2160-0) The system [employer] generated this result transmitted ref erence range: 0.60 - 1 .30 MG/DL. The refe rence range was not u sed to interpret this result as normal/abnor mal. EGFR AA (test code = See_Comment [Autom ated message] 29256-9) The system [employer] generated this result transmitted ref erence range: >60 ML/MIN/1.73. Th e reference range was not used to int erpret this result as normal/abnormal . EGFR (test code = See_Comment [Automate d message] 52667-3) The system [employer] generated this result transmitted ref erence range: >60 ML/MIN/1.73. Th e reference range was not used to int erpret this result as normal/abnormal . BUN/CREAT RATIO (test See_Comment [Auto mated message] code = 3097-3) The system [employer] generated this result transmitted ref erence range: 6 - 28 R ATIO. The reference r anil was not used to interpret this result as normal/abnor mal. SODIUM (test code = See_Comment [Automa tom message] 2951-2) The system [facility] [employer] generated this result transmitted ref erence range: 133 - 14 6 MEQ/L. The refe rence range was not u sed to interpret this result as normal/abnor mal. POTASSIUM (test code See_Comment [Autom ated message] = 2823-3) The system [facility] [employer] generated this result transmitted ref erence range: 3.5 - 5. 4 MEQ/L. The refe rence range was not u sed to interpret this result as normal/abnor mal. CHLORIDE (test code = See_Comment [Auto mated message] 0315-0) The system [facility] [employer] generated this result transmitted ref erence range: 100 - 11 2 MEQ/L. The refe rence range was not u sed to interpret this result as normal/abnor mal. CO2 (test code = See_Comment [Automated message] 1963-8) The system [facility] [employer] generated this result transmitted ref erence range: 21 - 30 MEQ/L. The reference r anil was not used to interpret this result as normal/abnor mal. CALCIUM (test code = See_Comment [Autom ated message] 16586-5) The system [facility] [employer] generated this result transmitted ref erence range: 8.5 - 10 .5 MG/DL. The refe rence range was not u sed to interpret this result as normal/abnor mal. PROTEIN TOTAL (test See_Comment [Automa tom message] code = 2885-2) The system [facility] generated this result transmitted ref erence range: 6.1 - 8. 1 G/DL. The reference r anil was not used to interpret this result as normal/abnor mal. ALBUMIN (test code = See_Comment [Autom ated message] 14907-4) The system [employer] generated this result transmitted ref erence range: 3.4 - 4. 8 G/DL. The reference r anil was not used to interpret this result as normal/abnor mal. GLOBULINS, SERUM, See_Comment [Automate d message] TOTAL (test code = The syste m which 78802-8) generated this result transmitted ref erence range: 1.9 - 3. 7 G/DL. The reference r anil was not used to interpret this result as normal/abnor mal. A/G RATIO (test code See_Comment [Autom ated message] = 1759-0) The system [employer] generated this result transmitted ref erence range: 1.0 - 2. 6 RATIO. The refe rence range was not u sed to interpret this result as normal/abnor mal. BILIRUBIN TOTAL (test See_Comment [Auto mated message] code = 1975-2) The system [facility] generated this result transmitted ref erence range: <=1.2 MG /DL. The reference r anil was not used to interpret this result as normal/abnor mal. ALKALINE PHOSPHATASE 99 U/L 30-132 (test code = 6768-6) AST (SGOT) (test code 24 U/L 7-56 = 1920-8) ALT (SGPT) (test code 17 U/L 3-47 TESTI NG PERFORMED AT = 1744-2) [facility], [place] [place], [place] [address] CLIA NO. [id number] Unless Otherwise Indic ated, All Testing Per formed At: [facility], [address] [place] [address] Laborator y Director: Robbie Wagner M.D. CLIA Number [id number] Cap Accreditation [place] o. 74399-29 BALBIR (test code = BALBIR) PT FASTING [facility] [id number] 14:32:13 Test Item Value Reference Range Interpretation Comments MAGNESIUM (test code See_Comment TESTIN G PERFORMED AT = 74984-8) [facility], [place] [address] [place] [address] CLIA N O. [id number] Unle ss Otherwise Indic ated, All Testing Per formed At: [facility], [address] [place] [address], [place] [address] Laboratory Dire ctor: Robbie de los santos M.D. CLIA Number [id number] [place]. [address]-53 [Autom ated message] The sy stem which generated this result transmit tom reference range : 1.6 - 2.6 MG/DL. The reference range was not used to interpr et this result as normal/abnormal . BALBIR (test code = PT FASTING BALBIR) [facility] PERFUS[facility] - [id number] 20:00:41: 1. Normal myocardial perfusion study.2. No [...] wall motion and left ventricular thickening.Interpreting Physician: aBkari Lai MDNorthern Inyo Hospital, [id number] 14:27:34REPORT Pat.Name: ALEXANDRIA MERCADO Mehran.ID: [id number] .Date: 12/19/2019 Refer.MD: MANNY DEVLIN Exam Time: 9:08:00 AM Study Type:Routine Echo Height: 62in Weight: 155lb BSA: 1.72 m2 Age:2 1945,74Y Sex: FEMALE BP: 138/78 HR: 55 bpm Sonogrphr: Karli Watt [facility] Echo Event ID:[id number] Order ID: [id number] Reason for Study:Cardiac evaluation, LV function assessmentHistory / Clinical:HTN, chest pain Procedures:[id number],COMPLETE Race: ++++++++++++++++++++++++++++++++++++SUMMARY:+ +++++++++++++++++++++++++++++++++++1. Left ventricular chamber size (by vol index) [...] Hg. No prior exam available for comparison. ++++++++++++++++++++++++++++++++++++FINDINGS:++++++ ++++++++++++++++++++++++++++++ Rhythm/BP: Sinus bradycardia during the exam.LV: All [...] stenosis. A trace of aortic regurgitation. Tri-leaflet AorticValve.MV: Mild MV leaflet thickening. A trace of [...] exam available for comparison.Quality: Technically adequate exam. ++++++++++++++++++++++++++++++++++++MEASUREMENTS:++ ++++++++++++++++++++++++++++++++++ 2D Left Ventricle LVIDd 5.1 cm (3.6-5.2) [...] RA SysVol 20.8 cc Ventricular Septum IVSd 0.9cm (0.6-1.1) LVPW LVPWd 1.1 cm (0.6-1.1) Aorta Ao Rtd 3.3 cm (1.7-3.4) Index 1.9 cm/m2 Ao Asc 3.7 cm (2.1-3.4) Index 2.2 cm/m2 LVOT LVOT 1.7 cm Ratios IVS/LVPW 0.8 Right Ventricle Right Ventricle 3.6cm DOPPLER AV Forward Flow AV pkVel 115 [...] 2.5 cm Signed 12/19/2019 09:27 Bakari Vences M.D.[facility] ChildrenEJECTION FRACTION [id number] 00:00:00 Test Item Value Reference Range Interpretation Comments Ejection Fraction (test code = 62364-2) 60 % 55-75 [facility] W/AUTO DIFF WITH [id number] 15:23:26 Test Item Value Reference Range Interpretation Comments WHITE BLOOD CELL COUNT See_Comment H [Aut omated message] (test code = 59627-0) The sy stem which generated this result transmitted ref erence range: 3.5 - 10 .0 K/UL. The refer ence range was not u sed to interpret this result as normal/abnor mal. RED BLOOD CELL COUNT See_Comment [Autom ated message] (test code = 16807-9) The sy stem which generated this result transmitted ref erence range: 3.80 - 5 .20 M/UL. The refer ence range was not u sed to interpret this result as normal/abnor mal. HEMOGLOBIN (test code = See_Comment [Au tomated message] 718-7) The system [employer] generated this result transmitted ref erence range: 12.0 - 1 6.0 G/DL. The refer ence range was not u sed to interpret this result as normal/abnor mal. HEMATOCRIT (test code = 38.5 % 35-46 83657-0) MEAN CORPUSCULAR VOLUME 86.7 fL 80-99 (test code = 06486-5) MEAN CORPUSCULAR 29.1 PG 25-34 HEMOGLOBIN (test code = 13974-6) MEAN CORPUSCULAR See_Comment [Automated message] HEMOGLOBIN CONC (test The sy stem which code = 77132-7) generated th is result transmitted ref erence range: 31.0 - 3 6.0 G/DL. The refer ence range was not u sed to interpret this result as normal/abnor mal. RED CELL DISTRIBUTION 16.2 % 11.5-15 H WIDTH (test code = 86269-3) NEUTROPHILS % (test 48 % 40-75 SEGMENT ED code = 80853-7) NEUTROPHILS, MANUAL DIFFERENTIAL. BANDS % (test code = 8 % 0-8 33908-7) LYMPHOCYTES % (test 30 % 20-45 code = 25014-5) MONOCYTES % (test code 7 % 4-12 = 51771-5) EOSINOPHILS % (test 1 % 0-7 code = 08272-2) BASOPHILS % (test code 4 % 0-2 H = 14961-8) MYELOCYTES % (test code 2 % See_Comment H [Au tomated message] = 35334-5) The system [employer] generated this result transmitted ref erence range: 0.0. The reference range was not used to int erpret this result as normal/abnormal . PLATELET COUNT (test See_Comment [Autom ated message] code = 59201-8) The system [employer] [facility] generated this result transmitted ref erence range: 130 - 40 0 K/UL. The reference r anil was not used to interpret this result as normal/abnor mal. COMMENTS (test code = (NOTE) FEW R EACTIVE 47941-5) LYMPHOCYTES SLI GHT ANISOCYTOSIS SL IGHT POLYCHROMASIA F EW STOMATOCYTES PLATELETS APPEA R ADEQUATE PLATEL ETS APPEAR NORMAL T ESTING PERFORMED AT [facility] [place]. [address] [place], [place] [address] CLIA NO. [id number] Unless Otherwis e Indicated, All Testing Performed At: [facility], [address] [place] [address] Laborator y Director: Robbie Wagner M.D. CLIA Number [id number] Cap Accreditation N o. [id number] Lab Interpretation Abnormal (test code = 93386-8) [facility]ST [id number] 20:29:00 IMPRESSION: Insertion of right-sided power-injectable single-lumen [...] permanent image was stored.Port placed: BardCatheter size (Canadian): 6Catheter flush: Heparin (100 units/mL) ClosureThe access [...] Nicole Verified Date/Time: 11/01/2019 15:29:20 Reading Location: [place] [address] Angio Body Reading Room L REPORT PROCEDURE: Venous port placement Procedural PersonnelAttending physician(s): Madalyn Nicole MDFellow physician(s): Katy Rubio physician(s): NonePrimary Bobbin Dumper(s): Neema Samano MD Pre- procedure diagnosis: Bladder cancerPost-procedure diagnosis: SameIndication: Administration of chemotherapyAdditional clinical history: None Complications: No immediate complications. Luiz, Rad Results In - 11/01/2019 3:31 PM CDTFINAL REPORT PROCEDURE: Venous port placement Procedural PersonnelAttending physician(s): Licha Rojas physician(s): Katy Rubio physician(s): NonePrimary Bobbin Dumper(s): Neema Samano MD Pre-procedure diagnosis: Bladder cancerPost-procedure [...] permanent image was stored.Port placed: BardCatheter size (Canadian): 6Catheter flush: Heparin (100 units/mL) ClosureThe access [...] MDReport Verified Date/Time: 11/01/2019 15:29:20 Reading Location: [place] [address] Angio Body Reading Room [facility] CENTRAL INS W/PORT [id number] 15:29:00Reason for Exam:->malignant neoplasm of overlapping sites of bladder FINAL REPORT PROCEDURE: Venous port placement Procedural PersonnelAttending physician(s): Licha Rojas physician(s): Katy Rubio physician(s): NonePrimary Bobbin Dumper(s): Neema Samano MD Pre-procedure diagnosis: Bladder cancerPost-procedure [...] permanent image was stored.Port placed: BardCatheter size (Canadian): 6Catheter flush: Heparin (100 units/mL) ClosureThe access [...] MDReport Verified Date/Time: 11/01/2019 15:29:20 Reading Location: [place] [address] Angio Body Reading Room APTT 2019-11-01 15:22:00 Test Item Value Reference Range Interpretation Comments PARTIAL THROMBOPLASTIN See_Comment [Aut omated message] TIME (test code = 3173-2) Th e system which generated this result transmitted ref erence range: 22.5 - 3 6.0 seconds. The re ference range was not u sed to interpret this result as normal/abnor mal. [facility]-[id number] 15:21:00 Test Item Value Reference Range Interpretation Comments PROTIME (test See_Comment [Automated code = 59035-3) message] The system which generated this result transmit tom reference range : 11.9 - 14.2 seconds. The reference range was not used to interpret this result as normal/abnormal . INR (test code See_Comment [Automated = 28432-9) message] The system which generated this result [...] 2.5-3.5 for patients wiht mechanical heart valves. [facility]APTT2020-04-[facility] 10:22:00 Test Item Value Reference Range Interpretation Comments PARTIAL THROMBOPLASTIN TIME 29.5 seconds 22.5-36.0 (BEAKER) (test code = 760) PROTHROMBIN TIME/[id number] 10:21:00 Test Item Value Reference Range Interpretation [...] mechanical heart valves.CBC W/PLT COUNT & AUTO [id number] 09:53:00 Test Item Value Reference Range Interpretation [...] (test code = 2801) CT CHEST W [id number] 18:26:00Impression:No evidence of metastatic disease in the chest. Signed: Davide Delatorre VerifiedDate/Time: 10/27/2019 13:26:23 Reading Location: [address] Ortho Consult Reading Room L REPORT [...] Delatorre Verified Date/Time: 10/27/2019 13:26:23 Reading Location: [address] [facility] IV [id number] 13:26:00FINAL REPORT CT Chest with contrast History:Malignant [...] Delatorre Verified Date/Time: 10/27/2019 13:26:23 Reading Location: [facility] OrthoConsult Reading Room ICAL PATHOLOGY [id number] 19:52:00 Test Item Value Reference Range Interpretation Comments CASE REPORT (test code Surgical Pathology = 15216) Report Case: [id number] Authorizing Provider: Vita Jaimes MD Collected: 10/14/2019 09:26 AM Ordering Location: [facility] PERIOPERATIVE Received: 10/14/2019 11:24 AM [...] DIAGNOSIS (test code = A. 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 No surface CIS is seen on any of the slides. It would be important in this case to consider the possibility of metastatic breast carcinoma which can mimic plasmacytoid variant of urothelial cancer, especially since there is no associated urothelial carcinoma in situ in this case. CPT (test code = 49030 X 7, 58006 74767) CLINICAL HISTORY (test Preop diagnosis: code = [...] MICROSCOPIC Performed. DESCRIPTION (test code = 819) [facility] HospitalTISSUE [id number] 14:52:00Surgical Pathology Report Case: [id number] Authorizing Provider: Vita Jaimes MD Collected: 10/14/2019 09:26 AM Ordering Location: [facility] PERIOPERATIVE Received: 10/14/2019 11:24 AM [...] BIOPSY: - NO PATHOLOGIC DIAGNOSIS - MUSCULARIS WA OPRIA PRESENTG. URINARY BLADDER, TRIGONE, BIOPSY: - MILD CHRONIC INFLAMMATION, NEGATIVE FOR DYSPLASIA OR CARCINOMA] - MUSCULARIS PROPRIA ABSENTH. URINARY BLADDER, RIGHT POSTERIOR WALL, PREVIOUS RESECTION SITE, TURBT: - UROTHELIAL CARCINOMA, HIGH GRADE (WHO GRADE 3), INVASIVE INTO MUSCULARIS PROPRIA - NEGATIVE FOR LYMPH VASCULAR INVASION - PRIOR RESECTION SITE CHANGE SEEN Signing Pathologist Direct Phone Line: [phone] signed by Reinaldo Matta MD on 10/17/2019 at 2:52 PMThetumor is 90% of the plasmacytoid type. No surface CIS is seen on any of the slides. It would be important in this case to consider the possibility of metastatic breast carcinoma which can mimic plasmacytoid variant of urothelial cancer, especially since there is no associated urothelial carcinoma in situ in this case. 43924 X 7, 52399Oirki diagnosis: Malignant neoplasm of overlapping sites of [...] submitted in H2. PA/pl Performed.RAD, CHEST, 2 [id number] 09:24:00Reason for Exam:->C67.8FINAL REPORT CHEST RADIOGRAPH - [...] indeterminate, suggest clinical correlation. Signed: Stanley Drake Verified Date/Time: 10/13/2019 09:24:28 Reading Location: [facility] Reading Room [address] [place] [address] CT, [id number] 16:53:00CT UROGRAMFINAL REPORT CT of the abdomen [...] or distant metastasis is identified. Signed: Beto [facility]pmer[facility] Verified Date/Time: 10/12/2019 16:53:35 Reading Location: [address] Consult Reading Room POCT URINALYSIS [id number] 00:00:00 Test Item Value Reference Range Interpretation Comments COLOR UA (test code = 5778-6) Yellow YELLOW/STRAW CLARITY UA (test code = 77156-9) Clear CLEAR GLUCOSE UA (test code = 5792-7) Negative NEGATIVE BILIRUBIN UA (test code = 5770-3) Negative NEGATIVE KETONES UA (test code = 45196-7) Negative NEGATIVE SPECIFIC GRAVITY UA (test code [...] NEGATIVE REDUCING SUBSTANCES URINE (test code = 45149-3) [facility]
[2022-07-15] MEDS ORDERED: ASPIRIN 81 MG CHEWABLE TABLET ONE (08:38)
[2022-07-15] MEDS ORDERED: ATORVASTATIN 20 MG TAB ONE (08:38)
[2022-07-15] MEDS ORDERED: NA CHLORIDE 0.9% 1,000 ML ONE ×2 (08:38→12:00)
[2022-07-15] MEDS ORDERED: CLOPIDOGREL 75 MG TABLET ONE (08:38)
[2022-07-15] MEDS ORDERED: FOLIC ACID 5 MG/ML VIAL ONE (08:39)
[2022-07-15 08:48] LABS: Urine Blood Trace-intact (Negative); Urine Glucose Negative (Negative); Urine Protein 1+ (Negative); Urine Specific Gravity 1.015 (1.005-1.030)
[2022-07-15] MEDS ORDERED: CEFTRIAXONE 1000 MG/VIAL ONE (09:00)
[2022-07-15 09:06] LABS: Urine Bacteria <20 /HPF (<20)
--- NOTE | 2022-07-15 09:07 | ER ---
Nurse's Notes [facility] Name: Marily Gonsales Age: 76 yrs Sex: Female : 1945 Arrival Date: 07/15/2022 Time: 08:07 Bed 4 Private MD: Diagnosis: Weakness;Dizziness and giddiness;Bradycardia, unspecified;Transient cerebral ischemic attack, unspecified;Fall on same level, unspecified;UTI/ Urinary tract infection, site not specified;Unspecified kidney failure;Coronavirus infection, unspecified;SARS-associated coronavirus as the cause of diseases classified elsewhere;Non ST elevation ND;Acidosis-metabolic Presentation: 07/15 08:00 Chief complaint: EMS states: "Fell going to the bathroom this morning. Slurred speech ss noted. Last seen normal at 10 pm yesterday evening." VS en route, 103/68, HR 45, RR 22, 98% on RA and BGL 104. HX of TIA. 08:00 Coronavirus screen: Client denies travel out of the [place] in the last 14 days. Ebola ss Screen: Patient denies exposure to infectious person. Patient denies travel to an Ebola-affected area in the 21 days before illness onset. An acute neurological deficit is present. The patients blood glucose was checked before arriving to the hospital and was found to be normal. Initial Sepsis Screen: Does the patient meet any 2 criteria? No. Patient's initial sepsis screen is negative. Does the patient have a suspected source of infection? No. Patient's initial sepsis screen is negative. Risk Assessment: Do you want to hurt yourself or someone else? Patient reports no desire to harm self or others. Note LAST KNOWN WELL was 07/14 at 2200. Onset of symptoms. 08:00 Method Of Arrival: EMS: [facility] ss 08:00 Acuity: CORI 2 ss 08:03 Note 20 gauge inserted to R AC by EMS personnel. ss Triage Assessment: 14:24 Neuro: Reports weakness. ld1 Stroke Activation: Symptom onset > 6 hours Physician: Stroke Attending; Name: ; Notified At: ; Arrived At: Physician: Chief Stroke Resident; Name: ; Notified At: ; Arrived At: Physician: Stroke Resident; Name: ; Notified At: ; Arrived At: Physician: ED Attending; Name: ; Notified At: ; Arrived At: Physician: ED Resident; Name: ; Notified At: ; Arrived At: Historical: - Allergies: 08:14 Sulfa (Sulfonamide Antibiotics); ss - PMHx: 08:14 Bladder cancer; CHF; COPD; Hypertension; Hypothyroidism; ss - PSHx: 08:14 Bladder; section; ss - Immunization history:: Adult Immunizations up to date, Client reports receiving the 2nd dose of the Covid vaccine. - Social history:: Smoking status: Patient denies any tobacco usage or history of. Patient/guardian denies using alcohol. - Family history:: not pertinent. Screenin:15 [facility] ED Fall Risk Assessment (Adult) History of falling in the last 3 months, ld1 including since admission No falls in past 3 months (0 pts) Confusion or Disorientation No (0 pts) Intoxicated or Sedated Yes (3 pts) Impaired Gait Yes (1 pt) Mobility Assist Device Used Yes (1 pt) Altered Elimination No (0 pt) Score/Fall Risk Level 0 - 2 = Low Risk Oriented to surroundings, Maintained a safe environment, Educated pt \\T\\ family on fall prevention, incl call for assistance when getting out of bed. Abuse screen: Denies threats or abuse. Denies injuries from another. Nutritional screening: No deficits noted. Tuberculosis screening: No symptoms or risk factors identified. Assessment: 08:00 Reassessment: CODE STROKE CALLED. ss 08:03 Reassessment: PT on CT table now. ss 08:15 VAN Scoring: Arm Drift: Patients demonstrates NO arm weakness. Patient is VAN Negative. ld1 Patient has been NPO before screening. The patient is alert, and able to follow commands. The patient exhibits slurred or garbled speech. The patient is not exhibiting difficulty speaking. The patient does not exhibit difficulty understanding words. The patient is able to swallow own secretions with no drooling or need for suction. Patient tolerated one teaspoon of water. No drooling, immediate coughing, gurgling, or clearing of the throat was noted. The patient tolerated 90mL of water. No drooling, immediate coughing, gurgling, or clearing of the throat was noted. The patient passed the bedside swallow screening. Oral medications may be given as ordered. Contact Physician for further diet orders. Provider notified of bedside swallow screening results: Lazaro Vazquez MD. 08:15 General: Appears in no apparent distress. comfortable, Behavior is calm, cooperative, ld1 appropriate for age. Pain: Denies pain. Neuro: Level of Consciousness is awake, alert, obeys commands, Oriented to person, place, time, situation, Paper Twister Tender are equal bilaterally Moves all extremities. Gait is unsteady, Speech is slurred, Facial symmetry appears normal, Pupils are PERRLA, Intact Babinski is positive. Cardiovascular: Capillary refill < 3 seconds Patient's skin is warm and dry. Respiratory: Airway is patent Respiratory effort is even, unlabored. GI: Abdomen is flat, non-distended. : No signs and/or symptoms were reported regarding the genitourinary system. EENT: No signs and/or symptoms were reported regarding the EENT system. Derm: No signs and/or symptoms reported regarding the dermatologic system. Musculoskeletal: No signs and/or symptoms reported regarding the musculoskeletal system. 10:00 Reassessment: Patient appears in no apparent distress at this time. No changes from ld1 previously documented assessment. Patient is alert, oriented x 3, equal unlabored respirations, skin warm/dry/pink. 11:50 Reassessment: Patient appears in no apparent distress at this time. Patient is alert, ld1 oriented x 3, equal unlabored respirations, skin warm/dry/pink. Patient is alert/active/playful, equal unlabored respirations, skin warm/dry/pink. Patient denies pain at this time. 13:51 Reassessment:. ll1 14:16 Reassessment: Patient appears in no apparent distress at this time. Patient is alert, ld1 oriented x 3, equal unlabored respirations, skin warm/dry/pink. Patient denies pain at this time. 14:24 TNKase (Tenecteplase) Screening: Contraindications: Patient reports onset of signs and ld1 symptoms of stroke greater than 6 hours ago:. Vital Signs: 08:00 BP 124 / 61; Pulse 41; Resp 17; Temp 98.3(O); Pulse Ox 100% on R/A; ss 08:15 BP 124 / 61; Pulse 47; Resp 18; Pulse Ox 100% on R/A; Pain 0/10; ld1 10:49 BP 120 / 67; Pulse 43; Resp 23; Pulse Ox 100% on R/A; ld1 11:47 Weight 60.5 kg; ld1 12:30 BP 112 / 65; Pulse 76; Resp 15; Pulse Ox 100% on R/A; ld1 14:16 BP 122 / 61; Pulse 50; Resp 18; Pulse Ox 100% on R/A; ld1 NIH Stroke Scale Scores: 08:15 NIHSS Score: 2 ld1 ED Course: 08:07 Patient arrived in ED. kj1 08:09 Lazaro Vazquez MD is Attending Physician. nolvia 08:15 Patient has correct armband on for positive identification. Placed in gown. Bed in low ld1 position. Call light in reach. Side rails up X2. service supervisor on. Pulse ox on. NIBP on. Notified ED physician of. Door closed. Noise minimized. Warm blanket given. 08:16 CT Stroke Brain w/o Contrast In Process Unspecified. EDMS 08:18 EKG done, by ED staff, reviewed by Lazaro Vazquez MD. em1 08:23 Triage completed. ss 08:32 Ernestine Lord, RN is Primary Nurse. ld1 08:33 Arm band placed on. iw 08:36 Missed attempt(s): 22 gauge in left forearm. Bleeding controlled, band aid applied, em1 catheter tip intact. 08:46 Lipid Profile Sent. ld1 08:52 No provider procedures requiring assistance completed. Maintain EMS IV. Dressing ld1 intact. Good blood return noted. Site clean \\T\\ dry. Gauge \\T\\ site: 20G RAC. 08:53 Urine Microscopic Only Sent. ld1 09:03 Kalyan Green MD is Hospitalizing Provider. nolvia 09:30 Head angio In Process Unspecified. EDMS 09:31 CT Neck Angio In Process Unspecified. EDMS 09:45 X-ray completed. Portable x-ray completed in exam room. md2 09:52 Brain Wo Cont In Process Unspecified. EDMS 09:55 COVID-19/FLU A+B Sent. ld1 09:58 XRAY Chest (1 view) In Process Unspecified. EDMS 11:41 US Extremity Venous W Compression Casa In Process Unspecified. EDMS 14:23 Patient admitted, IV remains in place. ld1 14:25 Primary Nurse role handed off by Ernestine Lord, RN ld1 14:34 Ernestine Lord, RN is Primary Nurse. ld1 Administered Medications: 08:45 Drug: Aspirin Chewable Tablet 162 mg Route: PO; ld1 08:45 Drug: PlaVIX (clopidogrel) 75 mg Route: PO; ld1 08:46 Drug: foLIC Acid 1 mg Route: IVPB; Site: right antecubital; ld1 08:46 Drug: NS 0.9% 1000 ml Route: IV; Rate: 1 bolus; Site: right antecubital; ld1 08:46 Drug: Lipitor (atorvastatin) 20 mg Route: PO; ld1 09:03 Drug: Rocephin (cefTRIAXone) 1 grams Route: IV; Rate: per protocol; Site: right ld1 antecubital; 09:55 Drug: Mucomyst - Acetylcysteine 600 mg Route: PO; ld1 12:23 Drug: NS 0.9% 1000 ml Route: IV; Rate: 125 ml/hr; Site: right antecubital; ld1 12:23 Drug: Lovenox (enoxaparin) 1 mg/kg Route: Sub-Q; Site: abdomen; ld1 Medication: 08:15 VIS not applicable for this client. ld1 Intake: 13:49 bedside commode bc6 Output: 13:49 Stool: 1 (Formed Stool) ; Total: 0ml. bc6 13:49 bedside commode bc6 Outcome: 09:06 Decision to Hospitalize by Provider. nolvia 14:23 Admitted to Med/surg accompanied by tech, via wheelchair, room . ld1 14:23 Condition: stable 14:23 Admitted to Med/surg room 418, Report called to BREANNE Isaacs ld1 14:24 Patient left the ED. ld1 14:38 Patient left the ED. ld1 NIH Stroke Scale - NIH Stroke Score Date: 07/15/2022 Time: 08:15 Total Score = 2 1a. Level of Consciousness (LOC) - 0(Alert) 1b. Level of Consciousness (LOC) (Month \\T\\ Age) - 0(Both) 1c. LOC Commands (Open \\T\\ Closes Eyes/Crop Insurance Claims Adjuster) - 0(Both) 2. Best Gaze (Lateral Gaze Paresis) - 0(Normal) 3. Visual Field Loss - 0(No visual loss) 4. Facial Palsy - 0(Normal) 5a. Left Arm: Motor (10-second hold) - 0(No drift) 5b. Right Arm: Motor (10-second hold) - 0(No drift) 6a. Left Leg: Motor (5-second hold - always test supine) - 0(No drift) 6b. Right Leg: Motor (5-second hold - always test supine) - 0(No drift) 7. Limb Ataxia (finger/nose \\T\\ heel/sanchez - test with eyes open) - 0(Absent) 8. Sensory Loss (pinprick arms/legs/face) - 0(Normal) 9. Best Language: Aphasia (description/naming/reading) - 1(Mild to moderate aphasia) 10. Dysarthria (speech clarity - read or repeat words) - 1(Mild to Moderate) 11. Extinction and Inattention (visual/tactile/auditory/spatial/personal) - 0(No abnormality) Initials: ld1 Signatures: Dispatcher [employer] EDMS Lazaro Vazquez MD MD cha Williams, Irene, RN Eric Persaud em1 Yuni Cornell RN RN ss Jackson, Kandis kj1 Francesca Freire RN RN ll1 Ernestine Lord RN RN ld1 Ara Solis md2 Kaia Stafford 6 Corrections: (The following items were deleted from the chart) 08:23 08:13 Chief complaint: EMS states: "Fell going to the bathroom this morning. ss Slurred speech noted. Last seen normal at 10 pm yesterday evening." VS en route, 103/68, HR 45, RR 22, 98% on RA and BGL 104. HX of TIA ss
--- NOTE | 2022-07-15 09:07 | EDPHYS ---
Physician Documentation [facility] Name: Marily Gonsales Age: 76 yrs Sex: Female : 1945 Arrival Date: 07/15/2022 Time: 08:07 Bed 4 Private MD: ED Physician Lazaro Vazquez HPI: 07/15 08:52 This 76 yrs old Female presents to ER via EMS with complaints of S/S of nolvia Possible Stroke. 08:52 The patient's problem is reported as weakness, that is generalized. nolvia 08:53 Onset: The symptoms/episode began/occurred last night. Duration: The episode is nolvia continuous. Context: the episode(s) was witnessed, by family, . The symptoms are alleviated by nothing. The symptoms are aggravated by nothing. Associated signs and symptoms: Pertinent positives: dizziness. Severity of symptoms: At their worst the symptoms were mild last night, in the emergency department the symptoms have improved mildly. Patient's baseline: Neuro: alert and fully oriented. The patient has experienced similar episodes in the past, several times. Historical: - Allergies: 08:14 Sulfa (Sulfonamide Antibiotics); ss - PMHx: 08:14 Bladder cancer; CHF; COPD; Hypertension; Hypothyroidism; ss - PSHx: 08:14 Bladder; section; ss - Immunization history:: Adult Immunizations up to date, Client reports receiving the 2nd dose of the Covid vaccine. - Social history:: Smoking status: Patient denies any tobacco usage or history of. Patient/guardian denies using alcohol. - Family history:: not pertinent. ROS: 08:53 Constitutional: Negative for fever, chills, and weight loss, Eyes: Negative for injury, nolvia pain, redness, and discharge, ENT: Negative for injury, pain, and discharge, Neck: Negative for injury, pain, and swelling, Cardiovascular: Negative for chest pain, palpitations, and edema, Respiratory: Negative for shortness of breath, cough, wheezing, and pleuritic chest pain, Abdomen/GI: Negative for abdominal pain, nausea, vomiting, diarrhea, and constipation, Back: Negative for injury and pain, : Negative for injury, bleeding, discharge, and swelling, MS/Extremity: Negative for injury and deformity, Skin: Negative for injury, rash, and discoloration. 08:53 Psych: Negative for depression, anxiety, suicide ideation, homicidal ideation, and hallucinations, Allergy/Immunology: Negative for hives, rash, and allergies, Endocrine: Negative for neck swelling, polydipsia, polyuria, polyphagia, and marked weight changes, Hematologic/Lymphatic: Negative for swollen nodes, abnormal bleeding, and unusual bruising. 08:53 Neuro: Positive for dizziness, weakness. Exam: 08:53 Radiologist reports: christelle de souza 08:53 Constitutional: This is a well developed, well nourished patient who is awake, alert, and in no acute distress. Head/Face: Normocephalic, atraumatic. Eyes: Pupils equal round and reactive to light, extra-ocular motions intact. Lids and lashes normal. Conjunctiva and sclera are non-icteric and not injected. Cornea within normal limits. Periorbital areas with no swelling, redness, or edema. ENT: Nares patent. No nasal discharge, no septal abnormalities noted. Tympanic membranes are normal and external auditory canals are clear. Oropharynx with no redness, swelling, or masses, exudates, or evidence of obstruction, uvula midline. Mucous membranes moist. Neck: Trachea midline, no thyromegaly or masses palpated, and no cervical lymphadenopathy. Supple, full range of motion without nuchal rigidity, or vertebral point tenderness. No Meningismus. Chest/axilla: Normal chest wall appearance and motion. Nontender with no deformity. No lesions are appreciated. Cardiovascular: Regular rate and rhythm with a normal S1 and S2. No gallops, murmurs, or rubs. Normal PMI, no JVD. No pulse deficits. Respiratory: Lungs have equal breath sounds bilaterally, clear to auscultation and percussion. No rales, rhonchi or wheezes noted. No increased work of breathing, no retractions or nasal flaring. Abdomen/GI: Soft, non-tender, with normal bowel sounds. No distension or tympany. No guarding or rebound. No evidence of tenderness throughout. Back: No spinal tenderness. No costovertebral tenderness. Full range of motion. Skin: Warm, dry with normal turgor. Normal color with no rashes, no lesions, and no evidence of cellulitis. MS/ Extremity: Pulses equal, no cyanosis. Neurovascular intact. Full, normal range of motion. Neuro: Awake and alert, GCS 15, oriented to person, place, time, and situation. Cranial nerves II-XII grossly intact. Motor strength 5/5 in all extremities. Sensory grossly intact. Cerebellar exam normal. Normal gait. Psych: Awake, alert, with orientation to person, place and time. Behavior, mood, and affect are within normal limits. 08:53 ECG was reviewed by the Attending Physician. Vital Signs: 08:00 BP 124 / 61; Pulse 41; Resp 17; Temp 98.3(O); Pulse Ox 100% on R/A; ss 08:15 BP 124 / 61; Pulse 47; Resp 18; Pulse Ox 100% on R/A; Pain 0/10; ld1 10:49 BP 120 / 67; Pulse 43; Resp 23; Pulse Ox 100% on R/A; ld1 11:47 Weight 60.5 kg; ld1 12:30 BP 112 / 65; Pulse 76; Resp 15; Pulse Ox 100% on R/A; ld1 14:16 BP 122 / 61; Pulse 50; Resp 18; Pulse Ox 100% on R/A; ld1 NIH Stroke Scale Scores: 08:15 NIHSS Score: 2 ld1 MDM: 08:09 Patient medically screened. nolvia 08:57 Differential diagnosis: CVA, TIA, Dementia, paralysis, metabolic disorder. Data nolvia reviewed: vital signs, nurses notes, lab test result(s), EKG, radiologic studies, CT scan, MRI, plain films. Data interpreted: teletypesetter monitor: rate is 41 beats/min, rhythm is sinus bradycardia, Pulse oximetry: on room air is 100 %. Test interpretation: by ED physician or midlevel provider: ECG, plain radiologic studies. Counseling: I had a detailed discussion with the patient and/or guardian regarding: the historical points, exam findings, and any diagnostic results supporting the discharge/admit diagnosis, lab results, radiology results, the need for further work-up and treatment in the hospital. 07/15 08:11 Order name: Basic Metabolic Panel; Complete Time: 10:57 nolvia 07/15 08:11 Order name: CBC with Diff; Complete Time: 10:57 nolvia 07/15 08:11 Order name: LFT's; Complete Time: 10:57 nolvia 07/15 08:11 Order name: Magnesium; Complete Time: 10:57 nolvia 07/15 08:11 Order name: NT PRO-BNP; Complete Time: 10:57 nolvia 12/27 08:11 Order name: PT-INR; Complete Time: 09:26 [facility] 07/15 08:11 Order name: Troponin HS; Complete Time: 10:57 [facility] 07/15 08:11 Order name: Sed Rate; Complete Time: 10:57 [facility] 07/15 08:11 Order name: CRP; Complete Time: 10:57 [facility] 07/15 08:12 Order name: Lipid Profile; Complete Time: 10:57 [facility] 07/15 08:43 Order name: Glucose, Ancillary Testing; Complete Time: 08:51 [facility] 07/15 08:48 Order name: Urine Dipstick-Ancillary; Complete Time: 08:51 [facility] 07/15 08:50 Order name: Urine Microscopic Only; Complete Time: 09:37 [facility] 07/15 09:20 Order name: COVID-19/FLU A+B; Complete Time: 11:13 [email or web address] 07/15 08:11 Order name: XRAY Chest (1 view); Complete Time: 10:57 [facility] 07/15 08:11 Order name: CT Stroke Brain w/o Contrast; Complete Time: 08:51 [facility] 07/15 08:11 Order name: CT Head Angio [facility] 07/15 08:11 Order name: CT Neck Angio; Complete Time: 10:57 [facility] 07/15 08:17 Order name: Head angio; Complete Time: 10:57 [facility] 07/15 08:17 Order name: MRI Stroke Protocol [facility] 07/15 08:23 Order name: Brain Wo Cont; Complete Time: 10:57 [facility] 07/15 09:35 Order name: Urine Culture [facility] 07/15 09:36 Order name: CREATININE WHOLE BLOOD; Complete Time: 09:37 [facility] 07/15 10:57 Order name: ABG [facility] 07/15 11:14 Order name: US Extremity Venous W Compression Casa [facility] 07/15 11:56 Order name: CBC with Automated Diff [facility] 07/15 11:56 Order name: CBC with Automated Diff [facility] 07/15 11:56 Order name: Comprehensive Metabolic Panel [facility] 07/15 11:56 Order name: Comprehensive Metabolic Panel [facility] 07/15 08:11 Order name: EKG; Complete Time: 08:12 [facility] 07/15 08:11 Order name: Cardiac monitoring; Complete Time: 08:32 [facility] 07/15 08:11 Order name: EKG - Nurse/Tech; Complete Time: 08:18 [facility] 07/15 08:11 Order name: IV Saline Lock; Complete Time: 08:32 [facility] 07/15 08:11 Order name: Labs collected and sent; Complete Time: 09:56 [facility] 07/15 08:11 Order name: O2 Per Protocol; Complete Time: 08:32 [facility] 07/15 08:11 Order name: O2 Sat Monitoring; Complete Time: 08:32 [facility] 07/15 08:11 Order name: Urine Dipstick-Ancillary (obtain specimen); Complete Time: 09:55 [facility] 07/15 11:56 Order name: Heart Healthy EDMS EC:53 Rate is 41 beats/min. Rhythm is regular. QRS [place] is Normal. VA interval is normal. QRS nolvia interval is normal. QT interval is normal. No Q waves. T waves are Normal. No ST changes noted. Clinical impression: Sinus bradycardia. Interpreted by me. Reviewed by me. Administered Medications: 08:45 Drug: Aspirin Chewable Tablet 162 mg Route: PO; ld1 08:45 Drug: PlaVIX (clopidogrel) 75 mg Route: PO; ld1 08:46 Drug: foLIC Acid 1 mg Route: IVPB; Site: right antecubital; ld1 08:46 Drug: NS 0.9% 1000 ml Route: IV; Rate: 1 bolus; Site: right antecubital; ld1 08:46 Drug: Lipitor (atorvastatin) 20 mg Route: PO; ld1 09:03 Drug: Rocephin (cefTRIAXone) 1 grams Route: IV; Rate: per protocol; Site: right ld1 antecubital; 09:55 Drug: Mucomyst - Acetylcysteine 600 mg Route: PO; ld1 12:23 Drug: NS 0.9% 1000 ml Route: IV; Rate: 125 ml/hr; Site: right antecubital; ld1 12:23 Drug: Lovenox (enoxaparin) 1 mg/kg Route: Sub-Q; Site: abdomen; ld1 Disposition Summary: 07/15/22 09:06 Hospitalization Ordered Provider: Kalyan Green cha Condition: Fair nolvia Problem: new nolvia Symptoms: have improved nolvia Bed/Room Type: Standard nolvia Hospitalization Status: Inpatient Admission(07/15/22 11:12) nolvia Location: Telemetry/MedSurg (Inpatient)(07/15/22 11:12) nolvia Room Assignment: [id number](07/15/22 13:50) [email or web address] Diagnosis - Weakness nolvia - Dizziness and giddiness nolvia - Bradycardia, unspecified nolvia - Transient cerebral ischemic attack, unspecified nolvia - Fall on same level, unspecified nolvia - UTI/ Urinary tract infection, site not specified nolvia - Unspecified kidney failure nolvia - Coronavirus infection, unspecified nolvia - SARS-associated coronavirus as the cause of diseases classified elsewhere nolvia - Non ST elevation OR nolvia - Acidosis - metabolic nolvia Forms: - Medication Reconciliation Form nolvia - SBAR form nolvia NIH Stroke Scale - NIH Stroke Score Date: 07/15/2022 Time: 08:15 Total Score = 2 1a. Level of Consciousness (LOC) - 0(Alert) 1b. Level of Consciousness (LOC) (Month \T\ Age) - 0(Both) 1c. LOC Commands (Open \T\ Closes Eyes/[employer]) - 0(Both) 2. Best Gaze (Lateral Gaze Paresis) - 0(Normal) 3. Visual Field Loss - 0(No visual loss) 4. Facial Palsy - 0(Normal) 5a. Left Arm: Motor (10-second hold) - 0(No drift) 5b. Right Arm: Motor (10-second hold) - 0(No drift) 6a. Left Leg: Motor (5-second hold - always test supine) - 0(No drift) 6b. Right Leg: Motor (5-second hold - always test supine) - 0(No drift) 7. Limb Ataxia (finger/nose \T\ heel/sanchez - test with eyes open) - 0(Absent) 8. Sensory Loss (pinprick arms/legs/face) - 0(Normal) 9. Best Language: Aphasia (description/naming/reading) - 1(Mild to moderate aphasia) 10. Dysarthria (speech clarity - read or repeat words) - 1(Mild to Moderate) 11. Extinction and Inattention (visual/tactile/auditory/spatial/personal) - 0(No abnormality) Initials: ld1 Signatures: Dispatcher [employer] EDLazaro Yost MD MD cha Smirch, Shelby RN RN Mila Velázquez [email or web address] Ernestine Lord RN RN ld1 Corrections: (The following items were deleted from the chart) 08:21 08:21 Stroke Protocol ordered. EDOK EDENILSON 11:12 09:06 Observation nolvia nolvia 11:12 09:06 Telemetry/MedSurg (observation) [facility] 11:12 09:06 nolvia [facility] 13:50 11:12 [facility] kj1
[2022-07-15 09:23] LABS: Absolute Lymphocytes (CBC) 1.4 K/uL (0.7-4.9); Hematocrit 43.5 % (36.0-45.0); Lymphocytes % 26.6 % (15.3-44.8); MCV 91.6 fL (80-100); MPV 9.6 fL (7.6-11.3); Protime INR 1.11; RBC Red Blood Cell Count 4.74 M/uL (3.86-4.86)
[2022-07-15] MEDS ORDERED: ACETYLCYST 6,000 MG/30 ML VIAL ONE (09:35)
--- NOTE | 2022-07-15 09:58 | RAD REPORT ---
EXAM DESCRIPTION: CT - Head angio - 07/15/2022 9:29 am CLINICAL HISTORY: Neuro deficit, acute, stroke suspected Headache, drowsiness, CVA symptomology COMPARISON: Ct Stroke Brain Wo Cont dated 07/15/2022; Facial Bones W/ Mpr dated 04/23/2022 TECHNIQUE: CT angiography of the head was performed with MIPs. All CT scans are performed using dose optimization technique as appropriate and may include automated exposure control or mA/KV adjustment according to patient size. FINDINGS: No evidence of aneurysm is detected. No flow-limiting stenosis or vascular malformation id entified. The left vertebral artery is diminutive. Vertebrobasilar system is small, likely attributable to bila teral origins of posterior communicating arteries, normal variant. The visualized dural venous sinuses are patent. IMPRESSION: No significant flow abnormality is detected.
--- NOTE | 2022-07-15 10:00 | RAD REPORT ---
EXAM DESCRIPTION: CT - Neck Angio - 07/15/2022 9:29 am CLINICAL HISTORY: Neuro deficit, acute, stroke suspected Headache, drowsiness, CVA symptomology COMPARISON: Head C Spine Mpr Wo Con dated 04/23/2022; Head C Spine Mpr Wo Con dated 03/26/2022; Head C Spine Mpr Wo Con dated 03/26/2020; Head C Spine Mpr Wo Con dated 01/15/2019 TECHNIQUE: CT angiography of the neck vessels was performed with MIPs. All CT scans are performed using dose optimization technique as appropriate and may include automated exposure control or mA/KV adjustment according to patient size. FINDINGS: A left aortic arch is identified with normal three vessel configuration of the great vesse ls. No significant flow abnormality is seen of the common carotid bilaterally. No significant stenosis is identified involving the cervical segments of both internal carotid arteri es. Minimal carotid bulb soft plaquing bilaterally. Antegrade flow is seen in the vertebral arteries, with diminutive left vertebral artery noted. IMPRESSION: No significant flow abnormality of the neck vessels is identified. Minimal soft plaquing in both carotid bulbs.
--- NOTE | 2022-07-15 10:12 | RAD REPORT ---
EXAM DESCRIPTION: RAD - Chest Single View - 07/15/2022 9:56 am CLINICAL HISTORY: COUGH Chest pain. COMPARISON: Chest Single View dated 03/26/2022; Chest Pa And Lat (2 Views) dated 07/09/2020; Chest Sin gle View dated 03/26/2020; Chest Pa And Lat (2 Views) dated 12/24/2018 FINDINGS: Portable technique limits examination quality. The lungs are emphysematous but grossly clear. The heart is normal in size. No displaced fractures. IMPRESSION: No acute intrathoracic process suspected.
--- NOTE | 2022-07-15 10:22 | RAD REPORT ---
EXAM DESCRIPTION: MRI - Brain Wo Cont - 07/15/2022 9:50 am CLINICAL HISTORY: cva Headache, drowsiness, CVA symptomology COMPARISON: Head angio dated 07/15/2022 TECHNIQUE: Multi-sequence, multiplanar MR imaging of the brain was performed without contrast. FINDINGS: No intracranial hemorrhage, hydrocephalus or extra-axial fluid collections.Mild confluent T2/FLAIR hyperintensity in the periventricular and deep white matter is present compatible with chron ic microvascular ischemic changes. No edema or shift of midline structures. No findings to suspect br ain mass. DWI is negative for acute CVA. Midline structures are normally formed. Mastoid air cells and paranasal sinuses are clear. IMPRESSION: Negative for acute CVA or other acute intracranial process.
[2022-07-15 10:24] LABS: Albumin 3.5 g/dL (3.4-5.0); Bilirubin Direct 0.1 mg/dL (0-0.2); Bilirubin Total 0.3 mg/dL (0.2-1.0); C-Reactive Protein 8.12 mg/L (<3.00); Magnesium 1.9 mg/dL (1.6-2.4); Potassium 4.7 mmol/L (3.5-5.1); Protein, Total 7.2 g/dL (6.4-8.2)
[2022-07-15 11:11] LABS: SARS-COV-2 RT PCR POSITIVE (NEGATIVE)
[2022-07-15 11:12] LABS: Arterial Blood Carboxyhemoglob 0.4 % (0-1.5); Blood Gas Oxyhemoglobin 95.1 % (94-97); Blood O2 Saturation 96.5 % (92-98.5)
--- NOTE | 2022-07-15 11:44 | RAD REPORT ---
EXAM DESCRIPTION: US - Extrem Venous W Compress Casa - 07/15/2022 11:39 am CLINICAL HISTORY: PAIN Bilateral leg edema and swelling. COMPARISON: Extrem Venous W Compress Casa dated 07/28/2016 TECHNIQUE: Real-time sonographic interrogation of the left and right lower extremity deep venous sys tems was performed. FINDINGS: Normal compressibility, flow augmentation, phasic flow and spontaneous flow is identified in both the left and right lower extremity deep venous systems. IMPRESSION: No sonographic evidence of left or right lower extremity deep venous thrombosis.
[2022-07-15] MEDS ORDERED: MORPHINE 2 MG/ML SYR IV PRN (11:50)
[2022-07-15] MEDS ORDERED: ONDANSETRON 4 MG/2 ML VIAL IV PRN (11:50)
[2022-07-15] MEDS ORDERED: ENOXAPARIN 60 MG/0.6 ML SQ ONE (12:01)
[2022-07-15] MEDS: D5W 1,000 ML with NA BICARB 8.4% 100 MEQ IV SCH ×2 (15:16)
[2022-07-15 15:34] VITALS: BMI 24.3
[2022-07-15] MEDS: MELATONIN 5 MG TABLET PO PRN (21:59)
[2022-07-16] MEDS: D5W 1,000 ML with NA BICARB 8.4% 100 MEQ IV SCH ×2 (02:49)
[2022-07-16 03:49] LABS: Absolute Lymphocytes (CBC) 1.7 K/uL (0.7-4.9); MCV 89.8 fL (80-100); MPV 9.9 fL (7.6-11.3)
[2022-07-16 04:18] LABS: Albumin 2.8 g/dL (3.4-5.0); Bilirubin Total 0.2 mg/dL (0.2-1.0); Potassium 3.5 mmol/L (3.5-5.1); Protein, Total 5.8 g/dL (6.4-8.2)
--- NOTE | 2022-07-16 15:45 | P.HP ---
Certification for Inpatient Patient admitted to: Inpatient With expected LOS: >2 Midnights Patient will require the following post-hospital care: None Practitioner: I am a practitioner with admitting privileges, knowledge of patient current condition, hospital course, and medical plan of care. Services: Services provided to patient in accordance with Admission requirements found in Title 42 Section 412.3 of the Code of Federal Regulations Patient History Date of Service: 07/15/22 Reason for admission: TYLOR; COVID-19 pneumonia; non-anion gap metabolic acidosis History of Present Illness: Patient is a 76yo who was admitted to the hospital with weakness and patient has been dealing with COVID-19 pneumonia. Patient appeared to have a syncopal event. Patient was brought into the emergency room for further evaluation. Allergies Sulfa (Sulfonamide Antibiotics) Allergy (Verified 06/20/21 00:33) Anaphylaxis Home Medications: Amlodipine [Norvasc*] 2.5 mg PO DAILY 03/27/22 Aspirin 325 mg PO DAILY 03/27/22 Atorvastatin Calcium [Lipitor] 80 mg PO DAILY 03/27/22 Escitalopram [Lexapro*] 20 ng PO DAILY 03/27/22 Gabapentin 300 mg PO TID 03/27/22 LORazepam [Ativan*] 1 mg PO BID 03/27/22 Levothyroxine [Synthroid] 0.112 mg PO DAILY 03/27/22 Olanzapine [Zyprexa] 5 mg PO TID 03/27/22 Spironolactone [Aldactone*] 25 mg PO DAILY 03/27/22 Trospium Chloride [Sanctura] 20 mg PO TID 03/27/22 - Past Medical/Surgical History Has patient received pneumonia vaccine in the past: Yes Diabetic: No -: back pain, respiratory tract infection -: HTN, hypothyroidism -: Bladder CA -: hemorrhoidectomy, eye surgery -: Bladder surgery x 2 -: x 2 -: Ventrectomy x 2 -: Cataract surgery -: Foot surgery -: Tonsillectomy - Family History Mother Medical History: Heart disease, Lung disease, Diabetes, Cancer, Other (see notes) Notes: Breast CA Father Medical History: Heart disease, Diabetes, Stroke, Other (see notes) Notes: Dementia - Social History Smoking Status: Never smoker Alcohol use: No CD- Drugs: No Caffeine use: Yes Place of Residence: Home Review of Systems 10-point ROS is otherwise unremarkable Physical Examination - Vital Signs Temperature: 98.8 F Blood Pressure: 120/69 Pulse: 48 Respirations: 16 Pulse Ox (%): 98 - Physical Exam General: Alert, In no apparent distress, Oriented x3 HEENT: Atraumatic, PERRLA, Mucous membr. moist/pink, EOMI, Sclerae nonicteric Neck: Supple, 2+ carotid pulse no bruit, No LAD, Without JVD or thyroid abnormality Respiratory: Clear to auscultation bilaterally, Normal air movement Cardiovascular: Regular rate/rhythm, Normal S1 S2 Gastrointestinal: Normal bowel sounds, Soft and benign, Non-distended, No tenderness Musculoskeletal: No clubbing, No swelling, No tenderness Integumentary: No rashes Neurological: Normal speech, Normal tone, Sensation intact, Cranial nerves 3-12 intact, Normal affect, Abnormal strength Lymphatics: No axilla or inguinal lymphadenopathy Assessment & Plan - Problems (Diagnosis) (1) TYLOR (acute kidney injury) Current Visit: Yes Status: Acute (2) Acute bronchitis due to COVID-19 virus Current Visit: Yes Status: Acute (3) Syncope and collapse Current Visit: Yes Status: Acute (4) Weakness Onset Date: 07/29/16 Current Visit: No Status: Acute (5) Bladder cancer Current Visit: Yes Status: Acute (6) HTN (hypertension) Current Visit: Yes Status: Acute (7) Elevated troponin I level Current Visit: Yes Status: Acute (8) Normal anion gap metabolic acidosis Current Visit: Yes Status: Acute - Plan PLAN: 1. IVFs with bicarb drip 2. Antiplatelet and anticoagulation therapy 3. Cardiology consultation 4. Steroids 5. Continue with IV antibiotics 6. GI/DVT prophylaxis Discharge Plan: Home Plan to discharge in: Greater than 2 days - Advance Directives Does patient have a Living Will: No Does patient have a Durable POA for Healthcare: No - Code Status/Comfort Care Code Status Assessed: Yes Code Status: Full Code Critical Care: No Time Spent Managing PTS Care (In Minutes): 45
--- NOTE | 2022-07-16 15:52 | P.PN ---
Subjective Date of Service: 07/16/22 Subjective: No new changes, No C/O voiced, Improving Patient is feeling better; strength is improving. Review of Systems 10-point ROS is otherwise unremarkable Physical Examination - Vital Signs Temperature: 98.8 F Blood Pressure: 120/69 Pulse: 48 Respirations: 16 Pulse Ox (%): 98 - Physical Exam General: Alert, In no apparent distress Respiratory: Clear to auscultation bilaterally, Normal air movement Cardiovascular: Regular rate/rhythm, Normal S1 S2 Gastrointestinal: Normal bowel sounds, No tenderness Musculoskeletal: No tenderness Neurological: Normal speech, Normal tone, Normal affect - Studies Medications List Reviewed: Yes Assessment & Plan - Problems (Diagnosis) (1) TYLOR (acute kidney injury) Current Visit: Yes Status: Acute (2) Acute bronchitis due to COVID-19 virus Current Visit: Yes Status: Acute (3) Syncope and collapse Current Visit: Yes Status: Acute (4) Weakness Onset Date: 07/29/16 Current Visit: No Status: Acute (5) Bladder cancer Current Visit: Yes Status: Acute (6) HTN (hypertension) Current Visit: Yes Status: Acute (7) Elevated troponin I level Current Visit: Yes Status: Acute (8) Normal anion gap metabolic acidosis Current Visit: Yes Status: Acute - Plan PLAN: 1. Continue with IVFs with bicarb drip 2. Continue with Antiplatelet and anticoagulation therapy 3. Cardiology consultation pending 4. Steroids; taper 5. Continue with IV antibiotics 6. Echocardiogram 7. GI/DVT prophylaxis Discharge Plan: Home Plan to discharge in: Greater than 2 days - Advance Directives Does patient have a Living Will: No Does patient have a Durable POA for Healthcare: No - Code Status/Comfort Care Code Status: Full Code Critical Care: No Time Spent Managing PTS Care (In Minutes): 45
[2022-07-16] MEDS: MELATONIN 5 MG TABLET PO PRN (21:46)
[2022-07-16] MEDS: ACETAMINOPHEN 500 MG TAB PO PRN (23:36)
[2022-07-17 07:11] LABS: Absolute Lymphocytes (CBC) 2.1 K/uL (0.7-4.9); Hematocrit 36.5 % (36.0-45.0); Lymphocytes % 44.5 % (15.3-44.8); MCV 87.1 fL (80-100); MPV 9.4 fL (7.6-11.3); RBC Red Blood Cell Count 4.19 M/uL (3.86-4.86)
[2022-07-17 07:47] LABS: Bilirubin Total 0.5 mg/dL (0.2-1.0); Folic Acid, (Folate) 11.5 ng/mL (3.1-17.5); Magnesium 1.6 mg/dL (1.6-2.4); Protein, Total 6.4 g/dL (6.4-8.2); Thyroid Stimulating Hormone 0.593 uIU/mL (0.358-3.740)
[2022-07-17] MEDS: ACETAMINOPHEN 500 MG TAB PO PRN (07:47)
[2022-07-17 07:49] LABS: Troponin High Sensitivity 196.1 pg/mL (<58.9)
[2022-07-17] MEDS ORDERED: ALBUTEROL 2.5 MG/3 ML NEB SOL NEB PRN (08:28)
[2022-07-17] MEDS: IPRATROPIUM BROM 0.5MG/2.5ML NEB SCH ×3 (08:29→20:55)
--- NOTE | 2022-07-17 09:41 | RAD REPORT ---
EXAM DESCRIPTION: RAD - Chest Single View - 07/17/2022 9:30 am CLINICAL HISTORY: pneumonia COMPARISON: Chest Single View dated 07/15/2022; Chest Single View dated 03/26/2022; Chest Pa And Lat ( 2 Views) dated 07/09/2020; Chest Single View dated 03/26/2020 FINDINGS: Lines: None. Lungs: No evidence of edema or pneumonia. Pleural: No significant pleural effusions or pneumothorax. Cardiac: The heart size is within normal limits. Mediastinum: Within normal limits. Bones: No acute fractures. Other: None IMPRESSION: No acute cardiopulmonary disease.
[2022-07-17] MEDS: METHYLPREDNISOLONE 125 MG INJ IV SCH ×2 (09:53→16:24)
[2022-07-17] MEDS: BENZONATATE 100 MG CAP PO PRN ×2 (09:54→20:36)
[2022-07-17 10:56] VITALS: O2SAT 98
[2022-07-17] MEDS: GUAIFENESIN/CODEINE 5ML UCUP PO PRN (16:25)
--- NOTE | 2022-07-17 16:26 | CON ---
Date of Consultation: 07/17/2022 Reason For Consultation: Positive troponin. History Of Present Illness: A 76-year-old admitted to the hospital because of productive cough and m ild shortness of breath, found to have COVID pneumonia. Denies having any chest pain. No nausea or vomiting. Past Medical History: Significant for hypertension, dyslipidemia, bladder cancer. Medications: Refer to reconciliation sheet for detailed list. Allergies: SULFA. Family History: No premature coronary artery disease or cancer. Social History: She does not smoke or drink. Does not use any drugs. Review of Systems: All systems reviewed and they were negative except what mentioned in HPI. Physical Examination: Vital Signs: Reviewed. Head and Neck: Pupils are equal, reactive to light. Intact eye movements. No JVD. No cervical lym phadenopathy. Neck is supple. Thyroid is not enlarged. Lungs: Rhonchi bilaterally. No accessory muscle use or muscle retraction. Heart: Irregular. No extra sounds. Abdomen: Soft, nontender. Bowel sounds positive. No organomegaly. No masses or hernia. No rigidi ty or rebound. Extremities: No edema, clubbing, or cyanosis. Intact pulses. Skin: No rash. Neurologic: Alert, awake, oriented x3. No acute focal deficits appreciated. Lymph Nodes: No cervical or axillary lymphadenopathy. Investigations: Troponin 196, BUN is 19, creatinine 0.93, potassium is 3.0, and hemoglobin 12.6. Ch est x-ray is negative. Assessment And Recommendations: 1.Positive troponin. No chest pain. The patient has COVID pneumonia. Obtain an echocardiogram. T his is likely demand due to the COVID infection. If echocardiogram is normal, no further cardiac wor kup will be recommended. 2.COVID pneumonia, on antibiotics and steroids. SR/MODL Voice ID: [id number] Report ID: [id number]
--- NOTE | 2022-07-17 17:53 | EKG ---
Test Date: 2022-07-15 Test Time: 08:13:44 [employer] Manager: [employer] MEASUREMENT RESULTS: Intervals: Rate: 41 PA: 144 QRSD: 92 QT: 480 QTc: 396 [place]: P: 62 PA: 144 QRS: 64 T: 54 INTERPRETIVE STATEMENTS: Marked sinus bradycardia Abnormal ECG Compared to ECG 06/19/2022 13:31:04 No significant changes Electronically Signed On 07-17-22 17:46:42 [employer] by Irving Betancourt
[2022-07-17] MEDS: MELATONIN 5 MG TABLET PO PRN (20:36)
--- NOTE | 2022-07-17 21:34 | P.PN ---
Date of Service: 07/17/22 Subjective Subjective: Patient is feeling better; however, patient coughed all night. Strength is improving. Review of Systems 10-point ROS is otherwise unremarkable Physical Examination - Vital Signs reviewed - Physical Exam General: Alert, In no apparent distress Respiratory: End expiratory wheezing Cardiovascular: Regular rate/rhythm, Normal S1 S2 Gastrointestinal: Normal bowel sounds, No tenderness Musculoskeletal: No tenderness Neurological: No focal deficits Assessment & Plan - Problems (Diagnosis) (1) TYLOR (acute kidney injury) Current Visit: Yes Status: Acute (2) Acute bronchitis/myocarditis due to COVID-19 virus Current Visit: Yes Status: Acute (3) Syncope and collapse Current Visit: Yes Status: Acute (4) Weakness Onset Date: 07/29/16 Current Visit: No Status: Acute (5) Bladder cancer Current Visit: Yes Status: Acute (6) HTN (hypertension) Current Visit: Yes Status: Acute (7) Elevated troponin I level Current Visit: Yes Status: Acute (8) Normal anion gap metabolic acidosis Current Visit: Yes Status: Acute - Plan Continue with plan of care as mentioned below: 1. Continue with IVFs 2. Continue with antiplatelet and anticoagulation therapy 3. Cardiology consultation appreciated; echo pending 4. Steroids; taper 5. Continue with IV antibiotics 6. Echocardiogram 7. GI/DVT prophylaxis
[2022-07-18] MEDS: METHYLPREDNISOLONE 125 MG INJ IV SCH ×3 (00:56→16:24)
[2022-07-18] MEDS: IPRATROPIUM BROM 0.5MG/2.5ML NEB SCH ×3 (02:00→15:00)
[2022-07-18] MEDS: GUAIFENESIN/CODEINE 5ML UCUP PO PRN (05:35)
[2022-07-18 06:49] LABS: Hematocrit 38.1 % (36.0-45.0); Lymphocytes % 28.4 % (15.3-44.8); MCV 88.5 fL (80-100); MPV 9.6 fL (7.6-11.3); RBC Red Blood Cell Count 4.31 M/uL (3.86-4.86)
[2022-07-18 07:18] LABS: Bilirubin Total 0.5 mg/dL (0.2-1.0); Magnesium 1.7 mg/dL (1.6-2.4); Potassium 3.3 mmol/L (3.5-5.1)
[2022-07-18] MEDS: BENZONATATE 100 MG CAP PO PRN ×2 (07:55→16:24)
[2022-07-18 15:57] VITALS: BP 165/72; TEMP 98.3
--- NOTE | 2022-07-22 08:00 | ECHO ---
HEIGHT: 5 ft 2 in WEIGHT: 133 lb 0 oz DATE OF STUDY: 07/18/[address]: Kalyan Green MD 2-DIMENSIONAL: YES M.MODE: YES DOPPLER: YES COLOR FLOW: YES TDS: NO PORTABLE: YES DEFINITY: NO BUBBLE STUDY: NO DIAGNOSIS: ELEVATED TROPONIN CARDIAC HISTORY: CATHERIZATION: NO SURGERY: NO PROSTHETIC VALVE: NO PACEMAKER: NO MEASUREMENTS (cm) DIASTOLIC (NORMALS) SYSTOLIC (NORMALS) IVSd 1.0 (0.6-1.2) LA Diam 2.8 (1.9-4.0) LVEF 76% LVIDd 4.2 (3.5-5.7) LVIDs 2.4 (2.0-3.5) %FS 45% LVPWd 1.1 (0.6-1.2) Ao Diam 2.7 (2.0-3.7) 2 DIMENSIONAL ASSESSMENT: RIGHT ATRIUM: NORMAL LEFT ATRIUM: NORMAL RIGHT VENTRICLE: NORMAL LEFT VENTRICLE: NORMAL TRICUSPID VALVE: MILD TRICUSPID REGURGITATION MITRAL VALVE: MILD MITRAL REGURGITATION PULMONIC VALVE: NORMAL AORTIC VALVE: MILD AORTIC INSUFFICIENCY PERICARDIAL EFFUSION: NONE AORTIC ROOT: NORMAL LEFT VENTRICULAR WALL MOTION: NORMAL. DOPPLER/COLOR FLOW: SEE BELOW. COMMENTS: NORMAL LEFT VENTRICULAR EJECTION FRACTION 60-65%. NORMAL WALL MOTION. MILD (AORTIC INSUFFICIENCY/MITRAL REGURGITATION/ TRICUSPID REGURGITATION). TECHNOLOGIST: NAYLA NIETO
== END 2022-07-18 19:02 | disposition swing bed (61) | DRG 177 ==
LOC: ER 08:05 → ERHOLD 11:50 → 4TH 14:19
PROVIDERS: ADMIT Hospitalist; ATTEND Hospitalist
DX: U07.1 COVID-19 (principal); I40.9 Acute myocarditis, unspecified; J12.82 Pneumonia due to coronavirus disease 2019; J44.0 Chronic obstructive pulmonary disease with (acute) lower respiratory infection; N17.9 Acute kidney failure, unspecified; N39.0 Urinary tract infection, site not specified; E87.21 Acute metabolic acidosis; J20.8 Acute bronchitis due to other specified organisms; I10 Essential (primary) hypertension; E03.9 Hypothyroidism, unspecified; R77.8 Other specified abnormalities of plasma proteins; Z88.1 Allergy status to other antibiotic agents; Z85.51 Personal history of malignant neoplasm of bladder; Z79.82 Long term (current) use of aspirin; Z79.899 Other long term (current) drug therapy; Z79.890 Hormone replacement therapy
CPT/HCPCS: 0240U; 36415; 70450; 70496; 70498; 70551; 71045; 80048; 80053; 80061; 80076; 81003; 81015; 82533; 82565; 82607; 82746; 82805; 82947; 83540; 83735; 83880; 84439; 84443; 84484; 85025; 85610; 85652; 86140; 87077; 87086; 87088; 87186; 93005; 93306; 93970; 94640; 96372; 96374; 96375; 97116; 97161; 97530; 99285; J1650; J2930; J7030; J7608; J7613; J7644; Q9967

== ENCOUNTER 2023-02-13 05:35 | Day surgery (SDC) | payer OTHER, BC ==
[2023-02-12 15:46] LABS: Lymphocytes % 31.4 % (15.3-44.8); MCV 94.2 fL (80-100); MPV 9.3 fL (7.6-11.3); RBC Red Blood Cell Count 4.67 M/uL (3.86-4.86)
--- NOTE | 2023-02-12 15:50 | RAD REPORT ---
EXAM DESCRIPTION: RAD - Chest Pa And Lat (2 Views) - 02/12/2023 3:42 pm CLINICAL HISTORY: pre op for surgery COMPARISON: Chest Pa And Lat (2 Views) dated 10/23/2022; Chest Single View dated 07/17/2022; Chest Sin gle View dated 07/15/2022; Chest Single View dated 03/26/2022 FINDINGS: Lines: None. Lungs: No evidence of edema or pneumonia. Pleural: No significant pleural effusions or pneumothorax. Large lung volumes. Cardiac: The heart size is within normal limits. Mediastinum: Within normal limits. Bones: No acute fractures. Other: None IMPRESSION: No acute cardiopulmonary disease.
[2023-02-12 16:05] LABS: Potassium 4.2 mEq/L (3.5-5.1)
[2023-02-13] MEDS ORDERED: Ringers Lactate 1,000 ML IV ONE ×3 (06:00→13:16)
[2023-02-13] MEDS ORDERED: CEFAZOLIN SODIUM 1 GM/VIAL ONE (06:00)
[2023-02-13] MEDS ORDERED: FENTANYL CITR 100 MCG/2 ML ONE (06:16)
[2023-02-13] MEDS ORDERED: LIDOCAINE 1% MPF 5 ML VIAL ONE (06:16)
[2023-02-13] MEDS ORDERED: dexAMETHasone 10 MG/ML VIAL ONE (06:16)
[2023-02-13] MEDS ORDERED: EPINEPHRINE/PF 1 MG/ML AMP ONE (06:16)
[2023-02-13] MEDS ORDERED: propofoL 200 MG/20 ML VIAL IV ONE (06:16)
[2023-02-13] MEDS ORDERED: BUPIVACAINE 0.25% PF 30 ML VIAL ONE (06:17)
[2023-02-13] MEDS ORDERED: REMIFENTANIL HCL 1 MG VIAL IV ONE (07:54)
[2023-02-13] MEDS ORDERED: ROCURONIUM 50 MG/5 ML VIAL IV ONE (07:54)
[2023-02-13] MEDS ORDERED: ONDANSETRON 4 MG/2 ML VIAL ONE (07:54)
[2023-02-13] MEDS ORDERED: NS 0.9% VIAL 20 ML ONE (07:54)
[2023-02-13] MEDS ORDERED: LIDOCAINE 2% MPF 5 ML VIAL ONE (07:54)
[2023-02-13] MEDS ORDERED: GLYCOPYRROLATE 0.2 MG/ML SYR ONE (08:30)
[2023-02-13] MEDS ORDERED: EPHEDRINE SULF 50 MG/ML VIAL ONE (08:31)
[2023-02-13] MEDS: METHYLENE BLUE 1% 10 ML VIAL ONE ×2 (08:40→12:07)
--- NOTE | 2023-02-13 10:23 | RAD REPORT ---
EXAM DESCRIPTION: NM - Lymphoscintigraphy - 02/13/2023 7:48 am CLINICAL HISTORY: Breast cancer COMPARISON: None. TECHNIQUE: 2 injections of 250 microcurie Lymphoseek administered into the the right breast at 0728 . Subsequently a scintigram was obtained which demonstrated the radiotracer within these locations. IMPRESSION: Right breast lymphoscintigram
[2023-02-13] MEDS ORDERED: Mastisol Adhesive Liq ONE ×2 (12:26)
--- NOTE | 2023-02-13 12:31 | P.OP ---
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 Postop diagnosis: Same Procedure performed: Bilateral mastectomy, right sentinel node biopsy, right axillary dissection Surgeon: Suhail David MD [employer] Agent: Gretchen MASSEY Estimated blood loss: Minimal Specimen: Right breast, right axillary sentinel node, axillary dissection on the right side, left breast Findings: Right breast cancermargins free, right axillary sentinel nodepositive for metastatic disease Anesthesia: General Complications: None Drains: KIMI #10 flat x2 on the right side, KIMI #10 flat 1 on the left side Fluids and blood products: Nonapplicable Disposition: Recovery room Operative note: Patient brought to the OR and placed in supine position. General anesthesia begun. Methylene blue injected in the right perioral region in the sterile condition. Breast massaged. Patient had's nuclear medicine injection prior to surgery. Then patient was prepped and draped in usual sterile fashion. The sentinel node counting device was utilized. A 3 cm incision was made in the right axilla. Subcu tissue divided. Bleeding controlled cautery it was difficult to identify a blue sentinel lymph node the counter was not of much help. The the count were placed in the medical records. Nonspecific area of dissection was performed where palpated lymph nodes were present. Frozen section revealed 3 lymph nodes and one of them with metastatic disease. Therefore, we proceeded with an axillary dissection. Right axillary vein, brachial dorsal neurovascular bundle, long thoracic neurovascular bundles were identified the lymph nodes in that area were sampled. 3-0 silk and 2-0 silk ties were used as needed as well as vascular clips. Hemanth's lymph node were sampled as well. Specimen was sent to pathology. Then the ellipse of skin incision was made to remove the breast in the standard fashion to include the palpable mass. Subcu tissue divided. Flaps created. Superiorly the flaps were to the clavicle, inferiorly to the sternal border, inferior to the insertion of the rectus abdominis muscle and laterally to the anterior border of the latissimus dorsi muscle. All breast tissue was removed off of the pectoralis fascia. Bleeding controlled with cautery. Breast sent to pathology after being appropriately labeled. Wound irrigated and bleeding controlled cautery. Carlos-Paulino drain placed in the axilla as well as under the flap. Drain secured with 3-0 nylon. Then 2-0 chromic and 3-0 chromic used to approximate subcu tissue and close skin. Sterile dressing applied on that side. Then ellipse of skin equal in size to the right side was made in the left breast. Subcutaneous tissue divided. A standard mastectomy was performed. Flaps were created superiorly to the clavicle, inferiorly to the insertion of the rectus abdominis muscle, medially to the border of the sternum and laterally to the anterior border of the dorsal muscle. Entire breast tissue off the pectoralis fascia was removed. Specimen was labeled appropriately and sent to pathology wound irrigated and bleeding controlled cautery Carlos-Paulino drain #10 flat placed and secured with 3-0 nylon. 2-0 chromic and 3-0 chromic were used to close the subcutaneous tissue and skin. Sterile dressing applied. Patient awakened taken to recovery room in good general condition. CC: Dr. Hansen's office
[2023-02-13] MEDS ORDERED: HYDROCODONE/APAP 7.5/325 MG TAB PO PRN (12:34)
[2023-02-13] MEDS: MORPHINE 4 MG/ML SYR ONE ×2 (13:11→13:23)
--- NOTE | 2023-02-13 13:26 | EKG ---
Test Date: 2023-02-12 Test Time: 15:19:15 Superintendent Over[employer] Distribution: JUAN MEASUREMENT RESULTS: Intervals: Rate: 50 MT: 170 QRSD: 96 QT: 468 QTc: 426 [place]: P: MT: 170 QRS: 80 T: 76 INTERPRETIVE STATEMENTS: Sinus bradycardia Otherwise normal ECG Compared to ECG 07/15/2022 08:13:44 No significant changes Electronically Signed On 02-13-23 13:24:26 CDT by Irving Betancourt
[2023-02-13] MEDS ORDERED: MORPHINE 4 MG/ML SYR ONE (13:45)
[2023-02-13 17:08] VITALS: BP 115/56; TEMP 98.2; O2SAT 95
== END 2023-02-13 16:35 | disposition home or self-care (01) ==
LOC: OR 05:35
PROVIDERS: ATTEND Surgery
PROC: 0HTV0ZZ Resection of Bilateral Breast, Open Approach (ICD-10-PCS; principal; 2023-02-13 07:30)
DX: C50.911 Malignant neoplasm of unspecified site of right female breast (principal); C77.3 Secondary and unspecified malignant neoplasm of axilla and upper limb lymph nodes; N63.21 Unspecified lump in the left breast, upper outer quadrant; Z17.0 Estrogen receptor positive status [ER+]
CPT/HCPCS: 19307; 93005; 85025; 80048; 36415; 88331; 88332; 88329; 88305 ×2; 88307 ×2; 71046; 78195; J2704 ×2; A4216; J0171; J2001 ×2; J3010; J1100; J2405; J3490; J7120 ×3; J0690; A9520

== ENCOUNTER 2023-04-21 10:33 | Emergency (ER) | payer OTHER, BC ==
--- OUTSIDE RECORDS SUMMARY | 2023-04-21 10:46 | XMS REPORT | Continuity of Care Document ---
:1945 Author Organization [facility] t Address [address] [place] [address] [address] [place] [address] Care Team Providers Name Role Phone JUAN R SOLOMON Primary Care Physician Unavailable Juan R Solomon Attending Clinician Unavailable EMILY ADAMS Attending Clinician Unavailable VITA HENRIQUEZ Attending Clinician Unavailable BIRD YEN Attending Clinician Unavailable Yolanda Farmer NP Attending Clinician YOLANDA FARMER Attending Clinician Unavailable Bird Yen MD Attending Clinician Virtual, Surgeon Attending Clinician Unavailable [facility], [facility] Staff Attending Clinician Unavailable 1, [facility] Room Attending Clinician Unavailable Michael Campos Attending Clinician ALEC FOSS Attending Clinician Unavailable Doctor Unassigned, Solana Attending Clinician Unavailable 2, [facility] Attending Clinician Unavailable Alec Foss MD Attending Clinician VITA HENRIQUEZ Admitting Clinician Unavailable BIRD YEN Admitting Clinician Unavailable Payers Payer Name Policy Type Policy Number Effective Date Expiration Date S [facility] MEDICARE PART A AND [id number] 2020 B 00:00:00 [facility] [id number] 2017 BLUE/ESSENTIALS 00:00:00 MEDICARE A B [id number] 2020 00:00:00 CDC REVIEW [id number] 2020 2020 00:00:00 00:00:00 MEDICARE PART A \\T\\ [id number] 2020 B 00:00:00 BC[employer] TRADITIONAL [id number] 2020 00:00:00 Problems Condition Condition Condition Status Onset Resolution Last Treating Co mments Source Name Details Category Date Date Treatment Clinician Date Thyroid Thyroid Disease Active 2019-07 Univers nodule nodule 2-13 ity of 00:00: [place] 00 [facility] Post-menop Post-menop Disease Active 2019- U nivers ausal ausal 2-13 ity of bleeding bleeding 00:00: [place] 00 [facility] Malignant Malignant Disease Active 2019-07 Uni vers neoplasm neoplasm 2-13 [place]y [place] bladder[place] bladder, 00 Medica l unspecifie unspecifie Br anch d site d site Hyperchole Hyperchole Disease Active 2019-07 U nivers steremia steremia 2-13 ity of 00:00: [place] 00 [facility] Branch Vaginal Vaginal Disease Active 2019- Univers bleeding bleeding 1-19 ity of 00:00: [place] 00 [facility] Branch Port-A-Cat Port-A-Cat Disease Active 2020-0 U nivers h in place h in place 8-11 it y of 00:00: [place] 00 [facility] Urothelial Urothelial Disease Recurre 2020-[address] [facility] cancer cancer nce 7-13 [facility] 00:[facility]: Medical 00 Issue Urothelial Urothelial Disease Recurre 2020-[address] [facility] [address] cancer cancer nce 7-13 [facility] 00:[facility]: Medical 00 Issue Bladder Bladder Disease Recurre 2020-[address] [facility] cancer cancer nce 3-27 [facility] 00:[facility]: Medical 00 Issue Malignant Malignant Disease Active 2020- Uni vers neoplasm neoplasm 3-27 ity of [...] radiculopa - 23:13:08 l thy thy 00:00: [place] (disorder) (disorder) 00 Active 09/13/2015 Problem 07/06/2021 [facility] Neck pain Neck pain Problem Active 2021-07-06 Memoria (finding) (finding) 08-17 23:13:08 l Active 00:00: Aleksey 08/17/2015 00 Problem 07/06/2021 [facility] Paresthesi Paresthes Problem Active 2021-07-06 Memoria a ia 08-17 23:13:08 l (finding) (finding) 00:00: Herm beto Active 00 08/17/2015 Problem 07/06/2021 [facility] 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) (disorder) Active Problem 07/06/2021 [facility] Dizziness Dizziness Problem Active 2021-07-06 [facility] (finding) (finding) 23:13:08 l Active [place] Problem 07/06/2021 [facility] Hip pain Hip pain Problem Active 2021-07-06 Memoria (finding) (finding) 23:13:08 l Active [place] Problem 07/06/2021 [facility] Hypertensi Hypertens Problem [...] Memoria pain pain 23:13:08 l (disorder) (disorder) Isidro rmann Active Problem 07/06/2021 [facility] Recurrent Recurrent Problem Active 2021-07-06 Memoria falls falls 23:13:08 l (finding) (finding) Herm beto Active Problem 07/06/2021 [facility] Anxiety Anxiety Problem Active 2021-07-06 Me moria (finding) (finding) 23:13:08 l Active Aleksey Problem 07/06/2021 [facility] Peripheral Periphera Problem Active 2021-07-06 [facility] nerve l nerve 23:13:08 l disease disease [place] (disorder) (disorder) Active Problem 07/06/2021 [facility] Visual Visual Problem Active 2021-07-06 Mayco marylu disturbanc disturbanc 23:13:08 l e e Aleksey (disorder) (disorder) Active Problem 07/06/2021 [facility] Oral Oral Problem Active 2021-07-06 Memor ia dyskinesia dyskinesia 23:13:08 l (disorder) (disorder) Isidro rmann Active Problem 07/06/2021 [facility] Malignant Malignant Problem Active Com mon neoplasm neoplasm [facility] urinary of urinary - [facility] bladder, bladder, St unspecifie unspecifie [facility]ita [facility] d site d site [facility] Malignant Malignant Problem Active Com mon neoplasm neoplasm [facility] of - [facility] overlappin overlappin [facility] g sites of g sites of Marquita kes bladder bladder [facility] Allergies, Adverse Reactions, Alerts Allergy Allergy Status Severity Reaction(s) Onset Inactive Treating Comm ents Source Name Type Date Date Clinician SULFA Drug Active Swelling 2020-0 Univers (SULFONA Class 3-23 ity of MIDE 00:00: [place] ANTIBIOT 00 Medical ICS) Branch Sulfa Propensi Active Swelling 2020-[address] [facility] (Sulfona ty to 3-23 [facility] mide adverse 00:00: Medical Antibiot reaction 00 Center ics) s Sulfa Propensi Active Swelling 2020-[address] [facility] (Sulfona ty to 3-23 [facility] mide adverse 00:00: Medical Antibiot reaction 00 Center ics) s SULFA Allergy Active Swelling 2020-[address] [facility] (SULFONA 3-23 [facility] MIDE 00:00: Medical ANTIBIOT 00 Center ICS) NO KNOWN Drug Active Univers ALLERGIE Class ity of S [facility] No Known No Known Active Memori a Medicati Medicati l on on Aleksey Allergie Allergie s s sulfa sulfa Active Memoria drugs drugs l [place] Social History Social Habit Start Date Stop Date Quantity Comments Source History SDOH [facility] Alcohol Comment Medical C enter History SDOH [facility] Alcohol Std Medical Cente r Drinks History SDOH [facility] Alcohol Binge Medical Hali ter Exposure to Not sure University of SARS-CoV-2 [facility] (event) Branch Tobacco use and 2023-03-31 2023-03-31 Smokeless tobacco [facility] exposure 00:00:00 00:00:00 non-user Medical Center Alcohol intake 2023-03-31 2023-03-[address] [place] es 00:00:00 00:00:00 non-drinker of Medical Ce nter alcohol (finding) History SDOH 2019-10-10 2019-10-[address] [facility] Alcohol Frequency 00:00:00 00:00:00 [facility] Sex Assigned At [address] [facility] Marquita kes 00:00:00 00:00:00 Medical Center Smoking Status Start Date Stop Date Source Unknown if ever smoked [place] [facility] Social History [facility] Medications Ordered Filled Start Stop Current Ordering Indication Dosage Frequency Signature Comments Components Source Medication Medication Date Date Medication? Clinician (SIG) Name Name UNKNOWN 2022- No L-Theanine [facility] 03-31 200 mg [facility] 14:35: 00:00 daily . Medical 31 :00 Issue UNKNOWN 2022- No L-Theanine [facility] 03-31 200 mg [facility] 14:35: 00:00 daily . Medical 31 :00 Issue UNKNOWN 2022- No L-Theanine [facility] 03-31 200 mg [facility] 14:35: 00:00 daily . Medical 31 :00 Issue triamterene 2022- No 1{capsu QD Take [address] -hydroCHLOR 03-31 le} capsule by Lillian sepulveda Othiazide 14:35: 00:00 mouth Medica l (DYAZIDE) 28 :00 every Center 37.5-25 mg morning. per capsule TURMERIC 2023-0 2023- No Take by [facility] t ORAL 03-31 mouth. [facility] 14:35: 00:00 Medical 28 :00 Center triamterene 2022-0 2023- No 1{capsu QD Take [address] -hydroCHLOR 03-31 le} capsule by Lillian sepulveda Othiazide 14:35: 00:00 mouth Medica l (DYAZIDE) 28 :00 every Center 37.5-25 mg morning. per capsule TURMERIC 2022-2022- No Take by [facility] t ORAL 03-31 mouth. [facility] 14:35: 00:00 Medical 28 :00 Issue triamterene 2022-0 2023- No 1{capsu QD Take [address] -hydroCHLOR 03-31 le} capsule by Lillian sepulveda Othiazide 14:35: 00:00 mouth Medica l (DYAZIDE) 28 :00 every Center 37.5-25 mg morning. per capsule TURMERIC 2022-2022- No Take by [facility] t ORAL 03-31 mouth. [facility] 14:35: 00:00 Medical 28 :00 Issue polycarboph 2022-0 2023- No 625mg [id number] Take [address] [place] 03-31 [id number] mg by [facility] (FIBERCON) 14:35: 00:00 3D mouth 3 Med ical 625 mg 25 :00 (three) Center tablet times daily. polycarboph 2022-0 3- No 625mg Q.[id number] Take [address] [place] 03-31 [id number] mg by [facility] (FIBERCON) 14:35: 00:00 3D mouth 3 Med ical 625 mg 25 :00 (three) Center tablet times daily. polycarboph 2022-0 2023- No 625mg [id number] Take [address] il 03-31 [id number] mg by [facility] (FIBERCON) 14:35: 00:00 3D mouth 3 Med ical 625 mg 25 :00 (three) Center tablet times daily. omega-3s-dh 2022-0 2023- No QD Take by I St a-epa-fish 03-31 mouth [facility] oil (FISH 14:35: 00:00 daily. Medic al OIL) 120 21 :00 Center mg-180 mg- 60 mg-1,200 mg CpDR omega-3s-dh 2022- No QD Take by [facility] a-epa-fish 03-31 mouth [facility] oil (FISH 14:35: 00:00 daily. Medic al OIL) 120 21 :00 Center mg-180 mg- 60 mg-1,200 mg CpDR omega-3s-dh 2022-2022- No QD Take by [facility] a-epa-fish 03-31 mouth [facility] oil (FISH 14:35: 00:00 daily. Medic al OIL) 120 21 :00 Center mg-180 mg- 60 mg-1,200 mg CpDR multivitami 2022-2022- No 1{capsu QD Take [address] n capsule 03-31 le} capsule by [place] es 14:35: 00:00 mouth Medical 18 :00 daily. Issue multivitami 2022-0 2022- No 1{capsu QD Take [address] n capsule 03-31 le} capsule by [place]ia es 14:35: 00:00 mouth Medical 18 :00 daily. Issue multivitami 2022-0 2022- No 1{capsu QD Take [address] n capsule 03-31 le} capsule by [place]ia es 14:35: 00:00 mouth Medical 18 :00 daily. Issue MAGNESIUM 2022-0 2022- No Take by [facility] GLYCINATE 03-31 mouth. [facility] ORAL 14:35: 00:00 Medical 15 :00 Issue MAGNESIUM 2022-0 2022- No Take by [facility] GLYCINATE 03-31 mouth. [facility] ORAL 14:35: 00:00 Medical 15 :00 Issue MAGNESIUM 2022-0 2022- No Take by [facility] GLYCINATE 03-31 mouth. [facility] ORAL 14:35: 00:00 Medical 15 :00 Issue lamoTRIgine 2022-2022- No 50mg QD Take [address] (LAMICTAL) 03-31 by mouth Luke s 25 MG 14:35: 00:00 daily. Medical tablet 12 :00 Issue lactobacill 2022-0 2022- No 1{capsu QD Take [address] us 03-31 le} capsule by [facility] rhamnosus, 14:35: 00:00 mouth Medic al GG, 12 :00 daily. [facility] 10 billion cell capsule lamoTRIgine 2022- No 50mg QD Take [address] (LAMICTAL) 03-31 by mouth Luke s 25 MG 14:35: 00:00 daily. Medical tablet 12 :00 Center lactobacill 2022- No 1{capsu QD Take [address] us 03-31 le} capsule by [facility] rhamnosus, 14:35: 00:00 mouth Medic al GG, 12 :00 daily. Issue ([facility] ) 10 billion cell capsule lamoTRIgine 2022- No 50mg QD Take [address] (LAMICTAL) 03-31 by mouth Luke s 25 MG 14:35: 00:00 daily. Medical tablet 12 :00 Issue lactobacill 2022- No 1{capsu QD Take [address] us 03-31 le} capsule by [facility] rhamnosus, 14:35: 00:00 mouth Medic al GG, 12 :00 daily. Issue ([facility] ) 10 billion cell capsule hydrOXYzine 2022- No anxiety 50mg [id number] Take [address] (ATARAX) 25 03-31 [id number] by mouth 3 [facility] MG tablet 14:35: 00:00 3D (three) Medi mariama 09 :00 times Center daily . hydrOXYzine 2022- No anxiety 50mg Q.[id number] Take [address] (ATARAX) 25 03-31 [id number] by mouth 3 [facility] MG tablet 14:35: 00:00 3D (three) Medi mariama 09 :00 times Center daily . hydrOXYzine 2022- No anxiety 50mg Q.[id number] Take [address] (ATARAX) 25 03-31 [id number] by mouth 3 [facility] MG tablet 14:35: 00:00 3D (three) Medi mariama 09 :00 times Center daily . calcium 2022-0 2022- No 1{tbl} Q.5D Take 1 [facility] citrate-vit 03-31 tablet by Marquita solomon D 14:35: 00:00 mouth 2 Medical (CITRACAL+D 06 :00 (two) Center ) 315-200 times mg-unit per daily. tablet calcium 2022-0 3- No 1{tbl} Q.5D Take 1 [facility] citrate-vit 03-31 tablet by Marquita solomon D 14:35: 00:00 mouth 2 Medical (CITRACAL+D 06 :00 (two) Center ) 315-200 times mg-unit per daily. tablet calcium 2022-0 3- No 1{tbl} Q.5D Take 1 [facility] citrate-vit 03-31 tablet by Marquita solomon D 14:35: 00:00 mouth 2 Medical (CITRACAL+D 06 :00 (two) Center ) 315-200 times mg-unit per daily. tablet biotin 2022-0 2023- No QD Take by [facility] 2,500 mcg 03-31 mouth [facility] Cap 14:35: 00:00 daily. Medical 03 :00 Issue biotin 2022-0 2023- No QD Take by [facility] 2,500 mcg 03-31 mouth [facility] Cap 14:35: 00:00 daily. Medical 03 :00 Issue biotin 3-0 2023- No QD Take by [facility] 2,500 mcg 03-31 mouth [facility] Cap 14:35: 00:00 daily. Medical 03 :00 Center baclofen 2022-0 2023- No 10mg Q.5D Take [address] (LIORESAL) 03-31 by mouth 2 Marquita kes 10 MG 14:35: 00:00 (two) Medical tablet 00 :00 times Center daily. ascorbic 2022-0 2023- No 500mg QD Take [address] acid, 03-31 mg by [facility] vitamin C, 14:35: 00:00 mouth Medic al (VITAMIN C) 00 :00 daily. Center 500 MG tablet baclofen 2022-0 2023- No 10mg Q.5D Take [address] (LIORESAL) 03-31 by mouth 2 Marquita kes 10 MG 14:35: 00:00 (two) Medical tablet 00 :00 times Center daily. ascorbic 2023-0 2023- No 500mg QD Take [address] acid, 9-12 09- mg by [facility] vitamin C, 14:35: 00:00 mouth Medic al (VITAMIN C) 00 :00 daily. Center 500 MG tablet baclofen 2022- No 10mg Q.5D Take [address] (LIORESAL) 03-31 by mouth 2 Marquita kes 10 MG 14:35: 00:00 (two) Medical tablet 00 :00 times Center daily. ascorbic 2022- No 500mg QD Take [address] acid, 03-31 mg by [facility] vitamin C, 14:35: 00:00 mouth Medic al (VITAMIN C) 00 :00 daily. Center 500 MG tablet atorvastati 2022- No 20mg QD Take [address] n (LIPITOR) 03-31 by mouth [place] es 20 MG 14:34: 00:00 daily. Medical tablet 57 :00 Center atorvastati 2022- No 20mg QD Take [address] n (LIPITOR) 03-31 by mouth [place]ia es 20 MG 14:34: 00:00 daily. Medical tablet 57 :00 Center atorvastati 0 2022- No 20mg QD Take [address] n (LIPITOR) 03-31 by mouth [place]ia es 20 MG 14:34: 00:00 daily. Medical tablet 57 :00 Center cholecalcif 0 Yes 125mg QD Take [address] jose rafael, 9-12 mg by [facility] vitamin D3, 10:48: mouth Medic al (VITAMIN D3 30 daily. Center ORAL) senna 2022-0 Yes 17.2mg Take [address] (SENOKOT) 9-12 tablets [facility] 8.6 mg 10:48: (17.2 mg Medical tablet 30 total) by Center mouth daily as needed for Constipati on. cholecalcif 2022-0 Yes 125mg QD Take [address] jose rafael, 9-12 mg by [facility] vitamin D3, 10:48: mouth Medic al (VITAMIN D3 30 daily. Center ORAL) senna 3-0 Yes 17.2mg Take [address] (SENOKOT) 9-12 tablets [facility] 8.6 mg 10:48: (17.2 mg Medical tablet 30 total) by Center mouth daily as needed for Constipati on. cholecalcif 0 Yes 125mg QD Take [address] jose rafael, 9-12 mg by [facility] vitamin D3, 10:48: mouth Medic al (VITAMIN D3 30 daily. Center ORAL) senna 0 Yes 17.2mg Take [address] (SENOKOT) 9-12 tablets [facility] 8.6 mg 10:48: (17.2 mg Medical tablet 30 total) by Center mouth daily as needed for Constipati on. potassium 0 Yes 20meq QD Take 2 [facility] chloride 9-12 capsules [facility] (MICRO-K) 10:45: (20 mEq Medic al 10 mEq CR 57 total) by Cente r capsule mouth daily. vit A/C/E 0 Yes QD Take by [facility] ac/ZnOx/cup 9-12 mouth [facility] rory oxide 10:45: daily. Medica l (EYE [address] [place] [address] VITAMIN AND MINERALS ORAL) LORazepam 0 Yes .5mg Take 0.[address] (ATIVAN) 1 9-12 tablets [facility] MG tablet 10:45: (0.5 mg Medic al 57 total) by Center mouth every 8 (eight) hours as needed for Anxiety. melatonin [address] 10 mg Cap 9-12 [facility]ukes 10:45: Medical 57 Issue potassium 0 Yes 20meq QD Take 2 [facility] chloride 9-12 capsules [facility] (MICRO-K) 10:45: (20 mEq Medic al 10 mEq CR 57 total) by Cente r capsule mouth daily. vit A/C/E 0 Yes QD Take by [facility] ac/ZnOx/cup 9-12 mouth [facility] rory oxide 10:45: daily. Medica l (EYE [address] [place] [address] VITAMIN AND MINERALS ORAL) LORazepam 0 Yes .5mg Take 0.[address] (ATIVAN) 1 9-12 tablets [facility]ukes MG tablet 10:45: (0.5 mg Medic al 57 total) by Center mouth every 8 (eight) hours as needed for Anxiety. melatonin [address] 10 mg Cap 9-12 [facility]ukes 10:45: Medical [address] [place] [address] potassium 2022-0 Yes 20meq QD Take 2 [facility] chloride 9-12 capsules [facility] (MICRO-K) 10:45: (20 mEq Medic al 10 mEq CR 57 total) by Cente r capsule mouth daily. vit A/C/E 0 Yes QD Take by [facility] ac/ZnOx/cup 9-12 mouth [facility] rory oxide 10:45: daily. Medica l (EYE 57 Center VITAMIN AND MINERALS ORAL) LORazepam 0 Yes .5mg Take 0.[address] (ATIVAN) 1 9-12 tablets [facility] MG tablet 10:45: (0.5 mg Medic al 57 total) by Center mouth every 8 (eight) hours as needed for Anxiety. melatonin [address] 10 mg Cap 9-12 Lukes 10:45: Medical 57 Center levothyroxi 0 2022- No 125ug Take [address] ne -06 27-12 tablet [facility] (SYNTHROID, 10:44: 00:00 (125 mcg M edical LEVOTHROID) 53 :00 total) by Hali ter 125 MCG mouth tablet Every morning on an empty stomach. levothyroxi 0 2022- No 125ug Take [address] ne -06 27-12 tablet [facility] (SYNTHROID, 10:44: 00:00 (125 mcg M edical LEVOTHROID) 53 :00 total) by Hali ter 125 MCG mouth tablet Every morning on an empty stomach. levothyroxi 0 2022- No 125ug Take [address] ne 9-06 27-12 tablet [facility] (SYNTHROID, 10:44: 00:00 (125 mcg M edical LEVOTHROID) 53 :00 total) by Hali ter 125 MCG mouth tablet Every morning on an empty stomach. gabapentin 2022-0 Yes 300mg QD Take [address] (NEURONTIN) 9-12 capsule [facility] 300 MG 10:42: (300 mg Medical capsule 55 total) by Center mouth daily. gabapentin 2022-0 Yes 300mg QD Take [address] (NEURONTIN) 9-12 capsule [facility] 300 MG 10:42: (300 mg Medical capsule 55 total) by Center mouth daily. gabapentin 2022-0 Yes 300mg QD Take [address] (NEURONTIN) 9-12 capsule [facility] 300 MG 10:42: (300 mg Medical capsule 55 total) by Center mouth daily. gabapentin 2022-0 3- No 300mg QD Take [address] (NEURONTIN) 9-12 09- capsule Luke s 300 MG 10:42: 00:00 (300 mg Medical capsule 55 :00 total) by Center mouth daily. gabapentin 3-0 2023- No 300mg QD Take [address] (NEURONTIN) 03-31- capsule Luke s 300 MG 10:42: 00:00 (300 mg Medical capsule 55 :00 total) by Center mouth daily. gabapentin 2023-0 2023- No 300mg QD Take [address] (NEURONTIN) 03-31- capsule Luke s 300 MG 10:42: 00:00 (300 mg Medical capsule 55 :00 total) by Center mouth daily. docusate 2023-0 Yes 100mg Q.5D Take [address] sodium 9-12 capsule [facility] (COLACE) 10:42: (100 mg Medica l 100 MG 01 total) by Center capsule mouth 2 (two) times daily. escitalopra 2023-0 Yes 15mg QD Take 1.[address] m oxalate 9-12 tablets [facility] (LEXAPRO) 10:42: (15 mg Medica l 10 MG 01 total) by Center tablet mouth daily. docusate 2023-0 Yes 100mg Q.5D Take [address] sodium 9-12 capsule [facility] (COLACE) 10:42: (100 mg Medica l 100 MG 01 total) by Center capsule mouth 2 (two) times daily. escitalopra 2023-0 Yes 15mg QD Take 1.[address] m oxalate 9-12 tablets [facility] (LEXAPRO) 10:42: (15 mg Medica l 10 MG 01 total) by Center tablet mouth daily. docusate 2023-0 Yes 100mg Q.5D Take [address] sodium 9-12 capsule [facility] (COLACE) 10:42: (100 mg Medica l 100 MG 01 total) by Center capsule mouth 2 (two) times daily. escitalopra 2023-0 Yes 15mg QD Take 1.[address] m oxalate 9-12 tablets [facility] (LEXAPRO) 10:42: (15 mg Medica l 10 MG 01 total) by Center tablet mouth daily. b complex 2022-0 Yes 1{capsu QD Take [address] vitamins 9-12 le} capsule by [facility] capsule 10:40: mouth Medical 19 daily. Center aspirin 325 2023-0 Yes 325mg QD Take [address] MG tablet 9-12 tablet [facility] 10:40: (325 mg Medical 19 total) by Center mouth daily. atorvastati Yes 80mg QD Take [address] n (LIPITOR) 9-12 tablet (80 Marquita kes 80 MG 10:40: mg total) Medical tablet 19 by mouth Center daily. b complex Yes 1{capsu QD Take [address] vitamins 9-12 le} capsule by [facility] capsule 10:40: mouth Medical 19 daily. Center aspirin 325 Yes 325mg QD Take [address] MG tablet 9-12 tablet [facility] 10:40: (325 mg Medical 19 total) by Center mouth daily. atorvastati Yes 80mg QD Take [address] n (LIPITOR) 9-12 tablet (80 Marquita kes 80 MG 10:40: mg total) Medical tablet 19 by mouth Center daily. b complex Yes 1{capsu QD Take [address] vitamins 9-12 le} capsule by [facility] capsule 10:40: mouth Medical 19 daily. Center aspirin 325 Yes 325mg QD Take [address] MG tablet 9-12 tablet [facility] 10:40: (325 mg Medical 19 total) by Center mouth daily. atorvastati Yes 80mg QD Take [address] n (LIPITOR) 9-12 tablet (80 Marquita kes 80 MG 10:40: mg total) Medical tablet 19 by mouth Center daily. aspirin 81 2022- No 81mg Take [address] [facility] MG EC 03-31 tablet (81 [facility] tablet 10:39: 00:00 mg total) Medic al 14 :00 by mouth. Center aspirin 81 0 2022- No 81mg Take [address] [facility] MG EC 03-31 tablet (81 [facility] tablet 10:39: 00:00 mg total) Medic al 14 :00 by mouth. Center aspirin 81 0 2022- No 81mg Take [address] MG EC 03-31 tablet (81 [facility] tablet 10:39: 00:00 mg total) Medic al 14 :00 by mouth. Center levothyroxi Yes Take by [facility] ne 9- mouth. [facility] (SYNTHROID, 00:00: Medica l LEVOTHROID) 00 Center 100 MCG tablet levothyroxi 2022-0 Yes Take by [facility] ne 9-05 mouth. [facility] (SYNTHROID, 00:00: Medica l LEVOTHROID) 00 Center 100 MCG tablet levothyroxi 2022-0 Yes Take by [facility] ne 9-05 mouth. [facility] (SYNTHROID, 00:00: Medica l LEVOTHROID) 00 Center 100 MCG tablet Ingrezza 40 2022-0 Yes 1{capsu QD Take [address] mg Cap 8-24 le} capsule by [facility] 00:00: mouth Medical 00 daily. Center Ingrezza 40 2022-0 Yes 1{capsu QD Take [address] mg Cap 8-24 le} capsule by [facility] 00:00: mouth Medical 00 daily. Center Ingrezza 40 2022-0 Yes 1{capsu QD Take [address] mg Cap 8-24 le} capsule by [facility] 00:00: mouth Medical 00 daily. Center anastrozole 2022-0 Yes 1mg QD Take [address] (ARIMIDEX) 8-18 tablet (1 Luke s 1 mg tablet 00:00: mg total) M edical 00 by mouth Center daily. anastrozole 2022-0 Yes 1mg QD Take [address] (ARIMIDEX) 8-18 tablet (1 Luke s 1 mg tablet 00:00: mg total) M edical 00 by mouth Center daily. anastrozole 2022-0 Yes 1mg QD Take [address] (ARIMIDEX) 8-18 tablet (1 Luke s 1 mg tablet 00:00: mg total) M edical 00 by mouth Center daily. HYDROcodone 2022-0 Yes 1{tbl} Take [address] -acetaminop 8-10 tablet by [place]ia es hen (NORCO 00:00: mouth. Medic al 7.5-325) 00 Center 7.5-325 mg per tablet HYDROcodone 2022-0 Yes 1{tbl} Take [address] -acetaminop 8-10 tablet by [place]ia es hen (NORCO 00:00: mouth. Medic al 7.5-325) 00 Center 7.5-325 mg per tablet HYDROcodone 2022-0 Yes 1{tbl} Take [address] -acetaminop 8-10 tablet by [place]ia es hen (NORCO 00:00: mouth. Medic al 7.5-325) 00 Center 7.5-325 mg per tablet midodrine 2023-0 Yes 5mg Q.[id number] Take [address] (PROAMATINE 7-30 [id number] tablet (5 [facility] ) 5 MG 00:00: 3D mg total) Medica l tablet 00 by mouth 3 Center (three) times daily. midodrine 2023-0 Yes 5mg Q.[id number] Take [address] (PROAMATINE 7-30 [id number] tablet (5 [facility] ) 5 MG 00:00: 3D mg total) Medica l tablet 00 by mouth 3 Center (three) times daily. midodrine 2023-0 Yes 5mg Q.[id number] Take [address] (PROAMATINE 7-30 [id number] tablet (5 [facility] ) 5 MG 00:00: 3D mg total) Medica l tablet 00 by mouth 3 Center (three) times daily. spironolact 2023-0 Yes 25mg QD Take [address] one 7-27 tablet (25 [facility] (ALDACTONE) 00:00: mg total) M edical 25 MG 00 by mouth Center tablet daily. spironolact 2023-0 Yes 25mg QD Take [address] [facility] one 7-27 tablet (25 [facility] (ALDACTONE) 00:00: mg total) M edical 25 MG 00 by mouth Center tablet daily. spironolact 2023-0 Yes 25mg QD Take [address] one 7-27 tablet (25 [facility] (ALDACTONE) 00:00: mg total) M edical 25 MG 00 by mouth Center tablet daily. triamterene 0 Yes 1{capsu QD Take [address] -hydroCHLOR 9-15 le} capsule by Marquita ocampo Othiazide 11:07: mouth Medical (DYAZIDE) 12 every Center 37.5-25 mg morning. per capsule potassium 0 Yes 10meq QD Take [address] chloride 9-15 mEq by [place] (MICRO-K) 11:07: mouth Medical 10 mEq CR 12 daily . Center capsule levothyroxi 0 Yes 125ug Take [address] [...] tablet 12 Center hydrOXYzine Yes anxiety 50mg Q.[id number] Take [address] (ATARAX) 25 9-15 [id number] by mouth 3 [facility] MG tablet 11:07: [...] Luke s 11:07: mouth Medical 12 daily. Issue vit A/C/E Yes QD Take by [facility] ac/ZnOx/cup 9-15 mouth [facility] rory oxide 11:07: daily. Medica l (EYE 12 Center VITAMIN AND MINERALS ORAL) b complex Yes 1{capsu QD Take [address] [facility] vitamins 9-15 le} capsule by [facility] 11[facility]: mouth Medical 12 daily. Issue calcium Yes 1{tbl} Q.5D Take [address] [facility] citrate-vit 9-15 tablet by Alexia es solomon D 11:07: mouth 2 Medical (CITRACAL+D 12 (two) Center ) 315-200 times mg-unit per daily. tablet omega-3s-dh Yes QD Take by [facility] a-epa-fish 9-15 mouth [facility] oil (FISH 11:07: daily. Medica l OIL) 120 12 Center mg-180 mg- 60 mg-1,200 mg CpDR lactobacill Yes 1{capsu QD Take [address] [facility] us 9-15 le} capsule by Wilver rhamnosus, 11:07: mouth Medica l GG, 12 daily. Issue ([facility] ) 10 billion cell capsule polycarboph Yes 625mg Q.[id number] Take [address] [facility] il 9-15 [id number] mg by Wilver (FIBERCON) 11:07: 3D mouth 3 Medi mariama 625 mg 12 (three) Center tablet times daily. biotin Yes QD Take by [facility],500 mcg 9-15 mouth [facility] Cap 11:07: daily. Medical 12 Issue MAGNESIUM Yes Take by [facility] GLYCINATE 9-15 mouth. [facility] ORAL 11:07: Medical 12 Issue UNKNOWN Yes L-Theanine [facility] 9-15 200 mg [facility] 11:07: daily . Medical [address] [place] [address] ascorbic Yes 500mg QD Take [address] [facility] acid, 9-15 mg by Wilver vitamin C, 11:07: mouth Medica l (VITAMIN C) 12 daily. Issue 500 MG tablet TURMERIC Yes Take by [facility] ORAL 9-15 mouth. [facility] 11:07: Medical 12 Issue triamterene Yes 1{capsu QD Take 1 C [...] MG 11:07: mouth Medical capsule 12 daily. Issue atorvastati Yes 20mg QD Take [address] [facility] n (LIPITOR) 9-15 by mouth Luke s 20 MG 11:07: daily. Medical tablet 12 Issue lamoTRIgine Yes 50mg QD Take [address] [facility] (LAMICTAL) 9-15 by mouth [facility] 25 MG 11:07: daily. Medical tablet 12 Center hydrOXYzine Yes anxiety 50mg Q.[id number] Take [address] [facility] (ATARAX) 25 9-15 [id number] by mouth 3 [facility] MG tablet 11:07: [...] Luke s 11:07: mouth Medical 12 daily. Issue vit A/C/E Yes QD Take by [facility] ac/ZnOx/cup 9-15 [facility] rory oxide 11:07: daily. Medica l (EYE 12 Center VITAMIN AND MINERALS ORAL) b complex Yes 1{capsu QD Take [address] [facility] vitamins 9-15 le} capsule by [facility] 11:07: mouth Medical 12 daily. Issue calcium Yes 1{tbl} Q.5D Take [address] [facility] citrate-vit 9-15 tablet by Alexia es solomon D 11:07: mouth 2 Medical (CITRACAL+D 12 (two) Center ) 315-200 times mg-unit per daily. tablet omega-3s-dh Yes QD Take by [facility] a-epa-fish 9-15 mouth [facility] oil (FISH 11:07: daily. Medica l OIL) 120 12 Issue mg-180 mg- 60 mg-1,200 mg CpDR lactobacill Yes 1{capsu QD Take [address] us 9-15 le} capsule by [facility] rhamnosus, 11:07: mouth Medica l GG, 12 daily. Issue ([facility] ) 10 billion cell capsule polycarboph Yes 625mg Q.[id number] Take [address] [facility] [address] il 9-15 [id number] mg by [facility] (FIBERCON) 11:07: 3D mouth 3 Medi mariama 625 mg 12 (three) Center tablet times daily. biotin Yes QD Take by [facility] 2,500 mcg 9-15 mouth [facility] Cap 11:07: daily. Medical 12 Center MAGNESIUM Yes Take by [facility]ATE 9-15 mouth. [facility] ORAL 11:07: Medical 12 Issue UNKNOWN Yes L-Theanine [facility] 9-15 200 mg [facility] 11:07: daily . Medical Center ascorbic Yes 500mg QD Take [address] [address] acid, 9-15 mg by Luterrence vitamin C, 11:07: mouth Medica l (VITAMIN C) 12 daily. Issue 500 MG tablet TURMERIC Yes Take by [facility] ORAL 9-15 mouth. [facility] 11:07: Medical [address] [place] [address] triamterene Yes 1{capsu QD Take 1 C [...] MG 11:07: mouth Medical capsule 12 daily. Issue atorvastati Yes 20mg QD Take [address] [facility] (LIPITOR) 9-15 by mouth Luke s 20 MG 11:07: daily. Medical tablet 12 Center lamoTRIgine Yes 50mg QD Take [address] [facility] (LAMICTAL) 9-15 by mouth [facility] 25 MG 11:07: daily. Medical tablet 12 Issue hydrOXYzine Yes anxiety 50mg Q.[id number] Take [address] [facility] (ATARAX) 25 9-15 [id number] by mouth 3 [facility] MG tablet 11:07: [...] Luke s 11:07: mouth Medical 12 daily. Issue vit A/C/E Yes QD Take by [facility] ac/ZnOx/cup 9-15 mouth [facility] rory oxide 11:07: daily. Medica l (EYE 12 Center VITAMIN AND MINERALS ORAL) b complex Yes 1{capsu QD Take [address] [facility] vitamins 9-15 le} capsule by [facility] capsule 11:07: mouth Medical 12 daily. Issue calcium Yes 1{tbl} Q.5D Take [address] [facility] citrate-vit 9-15 tablet by Alexia es solomon D 11:07: mouth 2 Medical (CITRACAL+D 12 (two) Center ) 315-200 times mg-unit per daily. tablet omega-3s-dh Yes QD Take by [facility] a-epa-fish 9-15 mouth [facility] oil (FISH 11:07: daily. Medica l OIL) 120 12 Issue mg-180 mg- 60 mg-1,200 mg CpDR lactobacill Yes 1{capsu QD Take [address] us 9-15 le} capsule by [facility] rhamnosus, 11:07: mouth Medica l GG, 12 daily. Issue ([facility] ) 10 billion cell capsule polycarboph Yes 625mg Q.18932773 Take [address] [facility] [address] il 9-15 [id number] mg by [facility] (FIBERCON) 11:07: 3D mouth 3 Medi mariama 625 mg 12 (three) Center tablet times daily. biotin Yes QD Take by [facility] 2,500 mcg 9-15 mouth [facility] Cap 11:07: daily. [address] MAGNESIUM Yes Take by [facility]ATE 9-15 mouth. [facility] ORAL 11:07: Medical 12 Issue UNKNOWN 0 Yes L-Theanine [facility] 9-15 200 mg [facility] 11:07: daily . [address] ascorbic 0 Yes 500mg QD Take [address] [address] acid, 9-15 mg by [facility] vitamin C, 11:07: mouth Medica l (VITAMIN C) 12 daily. Issue 500 MG tablet TURMERIC Yes Take by [facility] ORAL 9-15 mouth. [facility] 11:07: Medical 12 Issue triamterene Yes 1{capsu QD Take 1 C [...] MG 11:07: mouth Medical capsule 12 daily. Issue atorvastati Yes 20mg QD Take [address] [facility] n (LIPITOR) 9-15 by mouth Luke s 20 MG 11:07: daily. Medical tablet 12 Issue lamoTRIgine Yes 50mg QD Take [address] [facility] (LAMICTAL) 9-15 by mouth [facility] 25 MG 11:07: daily. Medical tablet 12 Issue hydrOXYzine Yes anxiety 50mg Q.06006076 Take [address] [facility] (ATARAX) 25 9-15 [id number] by mouth 3 [facility] MG tablet 11:07: [...] Luke s 11:07: mouth Medical 12 daily. Issue vit A/C/E Yes QD Take by [facility] ac/ZnOx/cup 9-15 mouth [facility] rory oxide 11:07: daily. Medica l (EYE 12 Center VITAMIN AND MINERALS ORAL) b complex 2022-0 Yes 1{capsu QD Take [address] [facility] vitamins 9-15 le} capsule by [facility] 11:07: mouth Medical 12 daily. Center calcium Yes 1{tbl} Q.5D Take [address] [facility] citrate-vit 9-15 tablet by Alexia es solomon D 11:07: mouth 2 Medical (CITRACAL+D 12 (two) Center ) 315-200 times mg-unit per daily. tablet omega-3s-dh Yes QD Take by [facility] a-epa-fish 9-15 mouth [facility] oil (FISH 11:07: daily. Medica l OIL) 120 12 Center mg-180 mg- 60 mg-1,200 mg CpDR lactobacill Yes 1{capsu QD Take [address] us 9-15 le} capsule by Wilver rhamnosus, 11:07: mouth Medica l GG, 12 daily. Issue ([facility] ) 10 billion cell capsule polycarboph Yes 625mg Q.[id number] Take [address] [address] il 9-15 [id number] mg by Wilver (FIBERCON) 11:07: 3D mouth 3 Medi mariama 625 mg 12 (three) Center tablet times daily. biotin Yes QD Take by [facility] 2,500 mcg 9-15 mouth [facility] Cap 11:07: daily. [address] MAGNESIUM Yes Take by [facility] GLYCINATE 9-15 mouth. [facility] ORAL 11:07: Medical [address] [place] [address] UNKNOWN Yes L-Theanine [facility] 9-15 200 mg [facility] 11:07: daily . [address] ascorbic Yes 500mg QD Take [address] acid, 9-15 mg by Wilver vitamin C, 11:07: mouth Medica l (VITAMIN C) 12 daily. Issue 500 MG tablet TURMERIC Yes Take by [facility] ORAL 9-15 mouth. [facility] 11:07: [address] triamterene Yes 1{capsu QD Take [address] -hydroCHLOR 9-15 le} capsule by Marquita ocampo Othiazide 11:07: mouth Medical (DYAZIDE) 12 every Center 37.5-25 mg morning. per capsule potassium 0 Yes 10meq QD Take [address] [facility] [address] [...] tablet 12 Center hydrOXYzine Yes anxiety 50mg Q.62744178 Take [address] [facility] (ATARAX) 25 9-15 [id number] by mouth 3 [facility] MG tablet 11:07: [...] Luke s 11:07: mouth Medical 12 daily. Issue vit A/C/E Yes QD Take by [facility] ac/ZnOx/cup 9-15 mouth [facility] rory oxide 11:07: daily. Medica l (EYE 12 Center VITAMIN AND MINERALS ORAL) b complex Yes 1{capsu QD Take [address] [facility] vitamins 9-15 le} capsule by [facility] capsule 11:07: mouth Medical 12 daily. Issue calcium Yes 1{tbl} Q.5D Take [address] [facility] citrate-vit 9-15 tablet by Aleixa es solomon D 11:07: mouth 2 Medical (CITRACAL+D 12 (two) Center ) 315-200 times mg-unit per daily. tablet omega-3s-dh Yes QD Take by [facility] a-epa-fish 9-15 mouth [facility] oil (FISH 11:07: daily. Medica l OIL) 120 12 Issue mg-180 mg- 60 mg-1,200 mg CpDR lactobacill Yes 1{capsu QD Take [address] us 9-15 le} capsule by Wilver rhamnosus, 11:07: mouth Medica l GG, 12 daily. Issue ([facility] ) 10 billion cell capsule polycarboph Yes 625mg Q.[id number] Take [address] il 9-15 [id number] mg by Wilver (FIBERCON) 11:07: 3D mouth 3 Medi mariama 625 mg 12 (three) Center tablet times daily. biotin Yes QD Take by [facility] 2,500 mcg 9-15 mouth [facility] Cap 11:07: daily. [address] MAGNESIUM Yes Take by [facility] GLYCINATE 9-15 mouth. [facility] ORAL 11:07: Medical 12 Issue UNKNOWN Yes L-Theanine [facility] 9-15 200 mg Wilver 11:07: daily . Medical [address] [place] [address] ascorbic Yes 500mg QD Take [address] acid, 9-15 mg by Wilver vitamin C, 11:07: mouth Medica l (VITAMIN C) 12 daily. Issue 500 MG tablet TURMERIC Yes Take by [facility] ORAL 9-15 mouth. Luterrence 11:07: Medical 12 Issue triamterene Yes 1{capsu QD Take [address] -hydroCHLOR 9-15 le} capsule by Marquita ocampo Othiazide 11:07: mouth Medical (DYAZIDE) 12 every Center 37.5-25 mg morning. per capsule potassium Yes 10meq QD Take [address] [facility] chloride 9-15 mEq by Wilver (MICRO-K) 11:07: mouth Medical 10 mEq CR 12 daily . Issue capsule levothyroxi Yes 125ug Take [address] ne 9-15 mcg by Wilver (SYNTHROID, 11:07: mouth Medic al LEVOTHROID) 12 Every Center 125 MCG morning on tablet an empty stomach. gabapentin Yes 300mg QD Take [address] (NEURONTIN) 9-15 mg by Wilver 300 MG 11:07: mouth Medical capsule 12 daily. Issue atorvastati 2022-0 Yes 20mg QD Take [address] [facility] n (LIPITOR) 9-15 by mouth Luke s 20 MG 11:07: daily. Medical tablet 12 Center lamoTRIgine Yes 50mg QD Take [address] [facility] (LAMICTAL) 9-15 by mouth [facility] 25 MG 11:07: daily. Medical tablet 12 Center hydrOXYzine Yes anxiety 50mg Q.00865173 Take [address] [facility] (ATARAX) 25 9-15 [id number] by mouth 3 [facility] MG tablet 11:07: [...] Luke s 11:07: mouth Medical 12 daily. Issue vit A/C/E Yes QD Take by [facility] ac/ZnOx/cup 9-15 mouth [facility] rory oxide 11:07: daily. Medica l (EYE 12 Center VITAMIN AND MINERALS ORAL) b complex Yes 1{capsu QD Take [address] [facility] vitamins 9-15 le} capsule by [facility] capsule 11:07: mouth Medical 12 daily. Issue calcium Yes 1{tbl} Q.5D Take [address] [facility] citrate-vit 9-15 tablet by Alexia es solomon D 11:07: mouth 2 Medical (CITRACAL+D 12 (two) Center ) 315-200 times mg-unit per daily. tablet omega-3s-dh Yes QD Take by [facility] a-epa-fish 9-15 mouth [facility] oil (FISH 11:07: daily. Medica l OIL) 120 12 Issue mg-180 mg- 60 mg-1,200 mg CpDR lactobacill Yes 1{capsu QD Take [address] us 9-15 le} capsule by [facility] rhamnosus, 11:07: mouth Medica l GG, 12 daily. Issue ([facility] ) 10 billion cell capsule polycarboph Yes 625mg Q.07575096 Take [address] il 9-15 [id number] mg by Luterrence (FIBERCON) 11:07: 3D mouth 3 Medi mariama 625 mg 12 (three) Center tablet times daily. biotin Yes QD Take by [facility] 2,500 mcg 9-15 mouth [facility] Cap 11:07: daily. Medical 12 Issue MAGNESIUM Yes Take by [facility] GLYCINATE 9-15 mouth. [facility] ORAL 11:07: Medical 12 Issue UNKNOWN Yes L-Theanine [facility] 9-15 200 mg [facility] 11:07: daily . Medical [address] [place] [address] ascorbic Yes 500mg QD Take [address] acid, 9-15 mg by Luterrence vitamin C, 11:07: mouth Medica l (VITAMIN C) 12 daily. Issue 500 MG tablet TURMERIC Yes Take by [facility] ORAL 9-15 mouth. [facility] 11:07: Medical 12 Issue triamterene Yes 1{capsu QD Take [address] -hydroCHLOR 9-15 le} capsule by Marquita ocampo Othiazide 11:07: mouth Medical (DYAZIDE) 12 every Center 37.5-25 mg morning. per capsule potassium Yes 10meq QD Take [address] [facility] chloride 9-15 mEq by Wil[facility] (MICRO-K) 11:07: mouth Medical 10 mEq CR 12 daily . Issue capsule levothyroxi Yes 125ug Take [address] ne 9-15 mcg by Wilver (SYNTHROID, 11:07: mouth Medic al LEVOTHROID) 12 Every Center 125 MCG morning on tablet an empty stomach. gabapentin Yes 300mg QD Take [address] (NEURONTIN) 9-15 mg by Wilver 300 MG 11:07: mouth Medical capsule 12 daily. Issue atorvastati Yes 20mg QD Take [address] [facility] n (LIPITOR) 9-15 by mouth Luke s 20 MG 11:07: daily. Medical tablet 12 Center lamoTRIgine Yes 50mg QD Take [address] [facility] (LAMICTAL) 9-15 by mouth [facility] 25 MG 11:07: daily. Medical tablet 12 Issue hydrOXYzine Yes anxiety 50mg Q.14776290 Take [address] [facility] (ATARAX) 25 9-15 [id number] by mouth 3 [facility] MG tablet 11:07: [...] Luke s 11:07: mouth Medical 12 daily. Issue vit A/C/E Yes QD Take by [facility] ac/ZnOx/cup 9-15 mouth [facility] rory oxide 11:07: daily. Medica l (EYE 12 Center VITAMIN AND MINERALS ORAL) b complex Yes 1{capsu QD Take [address] [facility] vitamins 9-15 le} capsule by [facility] capsule 11:07: mouth Medical 12 daily. Issue calcium Yes 1{tbl} Q.5D Take [address] [facility] citrate-vit 9-15 tablet by Alexia es solomon D 11:07: mouth 2 Medical (CITRACAL+D 12 [...] 11:07: mouth Medica l GG, 12 daily. Issue ([facility] ) 10 billion cell capsule polycarboph Yes 625mg Q.[id number] Take [address] il 9-15 [id number] mg by [facility] (FIBERCON) 11:07: 3D mouth 3 Medi mariama 625 mg 12 (three) Center tablet times daily. biotin Yes QD Take by [facility] 2,500 mcg 9-15 mouth [facility] Cap 11:07: daily. Medical [address] [place] [address] MAGNESIUM Yes Take by [facility] GLYCINATE 9-15 mouth. [facility] ORAL 11:07: Medical 12 Issue UNKNOWN Yes L-Theanine [facility] 9-15 200 mg [facility] 11:07: daily . Medical 12 Issue ascorbic Yes 500mg QD Take [address] acid, 9-15 mg by Wilver vitamin C, 11:07: mouth Medica l (VITAMIN C) 12 daily. Center 500 MG tablet TURMERIC Yes Take by [facility] ORAL 9-15 mouth. [facility] 11:07: Medical 12 Issue triamterene Yes 1{capsu QD Take 1 C [...] MG 11:07: mouth Medical capsule 12 daily. Issue atorvastati Yes 20mg QD Take [address] [facility] n (LIPITOR) 9-15 by mouth Luke s 20 MG 11:07: daily. Medical tablet 12 Issue lamoTRIgine Yes 50mg QD Take [address] [facility] (LAMICTAL) 9-15 by mouth [facility] 25 MG 11:07: daily. Medical tablet 12 Issue hydrOXYzine Yes anxiety 50mg Q.81561315 Take [address] [facility] (ATARAX) 25 9-15 [id number] by mouth 3 [facility] MG tablet 11:07: 3D (three) Medic al 12 times Center daily . baclofen Yes 10mg Q.5D Take [address] [facility] (LIORESAL) 9-15 by mouth 2 Alexia es 10 MG 11:07: (two) Medical tablet 12 times Center daily. multivitami Yes 1{capsu QD Take [address] n capsule 9-15 le} capsule by Rolan s 11:07: mouth Medical 12 daily. Issue vit A/C/E Yes QD Take by [facility] ac/ZnOx/cup 9-15 mouth [facility] rory oxide 11:07: daily. Medica l (EYE 12 Center VITAMIN AND MINERALS ORAL) b complex Yes 1{capsu QD Take [address] [facility] vitamins 9-15 le} capsule by [facility] capsule 11:07: mouth Medical 12 daily. Issue calcium Yes 1{tbl} Q.5D Take [address] [facility] citrate-vit 9-15 tablet by Alexia es solomon D 11:07: mouth 2 Medical (CITRACAL+D 12 (two) Center ) 315-200 times mg-unit per daily. tablet omega-3s-dh Yes QD Take by [facility] a-epa-fish 9-15 mouth [facility] oil (FISH 11:07: daily. Medica l OIL) 120 12 Issue mg-180 mg- 60 mg-1,200 mg CpDR lactobacill Yes 1{capsu QD Take [address] us 9-15 le} capsule by Luterrence rhamnosus, 11:07: mouth Medica l GG, 12 daily. Issue ([facility] ) 10 billion cell capsule polycarboph Yes 625mg Q.[id number] Take [address] il 9-15 [id number] mg by [facility] (FIBERCON) 11:07: 3D mouth 3 Medi mariama 625 mg 12 (three) Center tablet times daily. biotin Yes QD Take by [facility] 2,500 mcg 9-15 mouth [facility] Cap 11:07: daily. [address] MAGNESIUM Yes Take by [facility] GLYCINATE 9-15 mouth. [facility] ORAL 11:07: [address] UNKNOWN Yes L-Theanine [facility] 9-15 200 mg [facility] 11:07: daily . [address] ascorbic Yes 500mg QD Take [address] acid, 9-15 mg by [facility] vitamin C, 11:07: mouth Medica l (VITAMIN C) 12 daily. Issue 500 MG tablet TURMERIC Yes Take by [facility] ORAL 9-15 mouth. [facility] 11:07: [address] triamterene Yes 1{capsu QD Take 1 [...] MG 11:07: mouth Medical capsule 12 daily. Issue atorvastati Yes 20mg QD Take [address] [facility] n (LIPITOR) 9-15 by mouth Luke s 20 MG 11:07: daily. Medical tablet 12 Issue lamoTRIgine Yes 50mg QD Take [address] [facility] (LAMICTAL) 9-15 by mouth [facility] 25 MG 11:07: daily. Medical tablet 12 Issue hydrOXYzine Yes anxiety 50mg Q.[id number] Take [address] [facility] (ATARAX) 25 9-15 [id number] by mouth 3 [facility] MG tablet 11:07: [...] Luke s 11:07: mouth Medical 12 daily. Issue vit A/C/E Yes QD Take by [facility] ac/ZnOx/cup 9-15 mouth [facility] rory oxide 11:07: daily. Medica l (EYE 12 Center VITAMIN AND MINERALS ORAL) b complex Yes 1{capsu QD Take [address] [facility] vitamins 9-15 le} capsule by [facility] capsule 11:07: mouth Medical 12 daily. Issue calcium Yes 1{tbl} Q.5D Take [address] [facility] citrate-vit 9-15 tablet by Alexia es solomon D 11:07: mouth 2 Medical (CITRACAL+D 12 (two) Center ) 315-200 times mg-unit per daily. tablet omega-3s-dh Yes QD Take by [facility] a-epa-fish 9-15 mouth [facility] oil (FISH 11:07: daily. Medica l OIL) 120 12 Center mg-180 mg- 60 mg-1,200 mg CpDR lactobacill Yes 1{capsu QD Take [address] us 9-15 le} capsule by Wilver rhamnosus, 11:07: mouth Medica l GG, 12 daily. Issue ([facility] ) 10 billion cell capsule polycarboph Yes 625mg Q.[id number] Take [address] il 9-15 [id number] mg by Wilver (FIBERCON) 11:07: 3D mouth 3 Medi mariama 625 mg 12 (three) Center tablet times daily. biotin Yes QD Take by [facility] 2,500 mcg 9-15 mouth [facility] Cap 11:07: daily. [facility] 12 Issue MAGNESIUM Yes Take by [facility] GLYCINATE 9-15 mouth. [facility] ORAL 11:07: Medical 12 Issue UNKNOWN Yes L-Theanine [facility] 9-15 200 mg [facility] 11:07: daily . [address] ascorbic Yes 500mg QD Take [address] acid, 9-15 mg by Wilver vitamin C, 11:07: mouth Medica l (VITAMIN C) 12 daily. Issue 500 MG tablet TURMERIC Yes Take by [facility] ORAL 9-15 mouth. Luterrence 11:07: Medical [address] [place] [address] triamterene Yes 1{capsu QD Take 1 C [...] tablet 12 Center hydrOXYzine Yes anxiety 50mg Q.[id number] Take [address] [facility] [address] (ATARAX) 25 9-15 [id number] by mouth 3 [facility] MG tablet 11:07: [...] Luke s 11:07: mouth Medical 12 daily. Issue vit A/C/E Yes QD Take by [facility] ac/ZnOx/cup 9-15 mouth [facility] rory oxide 11:07: daily. Medica l (EYE 12 Center VITAMIN AND MINERALS ORAL) b complex Yes 1{capsu QD Take [address] [facility] vitamins 9-15 le} capsule by [facility] capsule 11:07: mouth Medical 12 daily. Issue calcium Yes 1{tbl} Q.5D Take [address] [facility] citrate-vit 9-15 tablet by Alexia es solomon D 11:07: mouth 2 Medical (CITRACAL+D 12 [...] 11:07: mouth Medica l GG, 12 daily. Issue ([facility] ) 10 billion cell capsule polycarboph Yes 625mg Q.[id number] Take [address] il 9-15 [id number] mg by [facility] (FIBERCON) 11:07: 3D mouth 3 Medi mariama 625 mg 12 (three) Center tablet times daily. biotin Yes QD Take by [facility] 2,500 mcg 9-15 mouth [facility] Cap 11:07: daily. Medical [address] [place] [address] MAGNESIUM Yes Take by [facility] GLYCINATE 9-15 mouth. [facility] ORAL 11:07: [address] UNKNOWN Yes L-Theanine [facility] 9-15 200 mg [facility] 11:07: daily . [address] ascorbic Yes 500mg QD Take [address] acid, 9-15 mg by [facility] vitamin C, 11:07: mouth Medica l (VITAMIN C) 12 daily. Issue 500 MG tablet TURMERIC Yes Take by [facility] ORAL 9-15 mouth. [facility] 11:07: [address] triamterene Yes 1{capsu QD Take 1 [...] MG 11:07: mouth Medical capsule 12 daily. Issue atorvastati Yes 20mg QD Take [address] [facility] n (LIPITOR) 9-15 by mouth Luke s 20 MG 11:07: daily. Medical tablet 12 Issue lamoTRIgine Yes 50mg QD Take [address] [facility] (LAMICTAL) 9-15 by mouth [facility] 25 MG 11:07: daily. Medical tablet 12 Center hydrOXYzine Yes anxiety 50mg Q.05195470 Take [address] [facility] (ATARAX) 25 9-15 [id number] by mouth 3 [facility] MG tablet 11:07: [...] Luke s 11:07: mouth Medical 12 daily. Issue vit A/C/E Yes QD Take by [facility] t ac/ZnOx/cup 9-15 mouth [facility] rory oxide 11:07: daily. Medica l (EYE 12 Center VITAMIN AND MINERALS ORAL) b complex Yes 1{capsu QD Take [address] [facility] vitamins 9-15 le} capsule by [facility] capsule 11:07: mouth Medical 12 daily. Issue calcium Yes 1{tbl} Q.5D Take [address] [facility] citrate-vit 9-15 tablet by Alexia es solomon D 11:07: mouth 2 Medical (CITRACAL+D 12 (two) Center ) 315-200 times mg-unit per daily. tablet omega-3s-dh Yes QD Take by [facility] a-epa-fish 9-15 mouth [facility] oil (FISH 11:07: daily. Medica l OIL) 120 12 Issue mg-180 mg- 60 mg-1,200 mg CpDR lactobacill Yes 1{capsu QD Take [address] us 9-15 le} capsule by [facility] rhamnosus, 11:07: mouth Medica l GG, 12 daily. Issue ([facility] ) 10 billion cell capsule polycarboph Yes 625mg Q.[id number] Take [address] il 9-15 [id number] mg by [facility] (FIBERCON) 11:07: 3D mouth 3 Medi mariama 625 mg 12 (three) Center tablet times daily. biotin Yes QD Take by [facility] 2,500 mcg 9-15 mouth [facility] Cap 11:07: daily. Medical 12 Center MAGNESIUM Yes Take by [facility] GLYCINATE 9-15 mouth. [facility] ORAL 11:07: Medical 12 Center UNKNOWN Yes L-Theanine [facility] 9-15 200 mg [facility] 11:07: daily . Medical 12 Center ascorbic Yes 500mg QD Take [address] acid, 9-15 mg by Wilver vitamin C, 11:07: mouth Medica l (VITAMIN C) 12 daily. Issue 500 MG tablet TURMERIC Yes Take by [facility] ORAL 9-15 mouth. [facility] 11:07: Medical 12 Issue triamterene Yes 1{capsu QD Take [address] -hydroCHLOR 9-15 le} capsule by Marquita ocampo Othiazide 11:07: mouth Medical (DYAZIDE) 12 every Center 37.5-25 mg morning. per capsule potassium Yes 10meq QD Take [address] [facility] chloride 9-15 mEq by Wilver (MICRO-K) 11:07: mouth Medical 10 mEq CR 12 daily . Issue capsule levothyroxi Yes 125ug Take [address] ne 9-15 mcg by Wilver (SYNTHROID, 11:07: mouth Medic al LEVOTHROID) 12 Every Center 125 MCG morning on tablet an empty stomach. gabapentin Yes 300mg QD Take [address] (NEURONTIN) 9-15 mg by Luterrence 300 MG 11:07: mouth Medical capsule 12 daily. Issue atorvastati Yes 20mg QD Take [address] [facility] n (LIPITOR) 9-15 by mouth Luke s 20 MG 11:07: daily. Medical tablet 12 Center lamoTRIgine Yes 50mg QD Take [address] [facility] (LAMICTAL) 9-15 by mouth [facility] 25 MG 11:07: daily. Medical tablet 12 Issue hydrOXYzine Yes anxiety 50mg Q.21659356 Take [address] [facility] (ATARAX) 25 9-15 [id number] by mouth 3 [facility] MG tablet 11:07: [...] Luke s 11:07: mouth Medical 12 daily. Issue vit A/C/E Yes QD Take by [facility] ac/ZnOx/cup 9-15 mouth [facility] rory oxide 11:07: daily. Medica l (EYE 12 Center VITAMIN AND MINERALS ORAL) b complex Yes 1{capsu QD Take [address] [facility] vitamins 9-15 le} capsule by [facility] capsule 11:07: mouth Medical 12 daily. Issue calcium Yes 1{tbl} Q.5D Take [address] [facility] citrate-vit 9-15 tablet by Alexia es solomon D 11:07: mouth 2 Medical (CITRACAL+D 12 (two) Center ) 315-200 times mg-unit per daily. tablet omega-3s-dh Yes QD Take by [facility] a-epa-fish 9-15 mouth [facility] oil (FISH 11:07: daily. Medica l OIL) 120 12 Issue mg-180 mg- 60 mg-1,200 mg CpDR lactobacill Yes 1{capsu QD Take [address] us 9-15 le} capsule by [facility] rhamnosus, 11:07: mouth Medica l GG, 12 daily. Issue (C[facility]LE ) 10 billion cell capsule polycarboph Yes 625mg Q.[id number] Take [address] il 9-15 [id number] mg by [facility] (FIBERCON) 11:07: 3D mouth 3 Medi mariama 625 mg 12 (three) Center tablet times daily. biotin Yes QD Take by [facility] 2,500 mcg 9-15 mouth [facility] Cap 11:07: daily. [address] MAGNESIUM Yes Take by [facility] GLYCINATE 9-15 mouth. [facility] ORAL 11:07: Medical 12 Issue UNKNOWN Yes L-Theanine [facility] 9-15 200 mg [facility] 11:07: daily . [address] ascorbic Yes 500mg QD Take [address] acid, 9-15 mg by [facility] vitamin C, 11:07: mouth Medica l (VITAMIN C) 12 daily. Issue 500 MG tablet TURMERIC Yes Take by [facility] ORAL 9-15 mouth. [facility] 11:07: Medical 12 Issue triamterene Yes 1{capsu QD Take 1 C [...] MG 11:07: mouth Medical capsule 12 daily. Issue atorvastati Yes 20mg QD Take [address] [facility] n (LIPITOR) 9-15 by mouth Luke s 20 MG 11:07: daily. Medical tablet 12 Issue lamoTRIgine Yes 50mg QD Take [address] [facility] (LAMICTAL) 9-15 by [facility] 25 MG 11:07: daily. Medical tablet 12 Issue hydrOXYzine Yes anxiety 50mg [id number] Take [address] [facility] (ATARAX) 25 9-15 [id number] by mouth 3 [facility] tablet 11:07: [...] Luke s 11:07: mouth Medical 12 daily. Issue vit A/C/E Yes QD Take by [facility] ac/ZnOx/cup 9-15 [facility] oxide 11:07: daily. Medica l (EYE 12 Center VITAMIN AND MINERALS ORAL) b complex Yes 1{capsu QD Take [address] [facility] vitamins 9-15 le} capsule by [facility] capsule 11:07: [facility] 12 daily. Issue calcium Yes 1{tbl} Q.5D Take [address] [facility] citrate-vit 9-15 tablet by Alexia kinsey solomon D 11:07: mouth 2 Medical (CITRACAL+D 12 (two) Center ) 315-200 times mg-unit per daily. tablet omega-3s-dh Yes QD Take by [facility] a-epa-fish 9-15 mouth [facility] oil (FISH 11:07: daily. Medica l OIL) 120 12 Issue mg-180 mg- 60 mg-1,200 mg CpDR lactobacill Yes 1{capsu QD Take [address] us 9-15 le} capsule by Luterrence rhamnosus, 11:07: mouth Medica l GG, 12 daily. Issue (CULTURELLE ) 10 billion cell capsule polycarboph Yes 625mg [id number] Take [address] [address] il 9-15 [id number] mg by [facility] (FIBERCON) 11:07: 3D mouth 3 Medi mariama 625 mg 12 (three) Center tablet times daily. biotin Yes QD Take by [facility] 2,500 mcg 9-15 mouth [facility] Cap 11:07: daily. [facility] 12 Issue MAGNESIUM Yes Take by [facility] GLYCINATE 9-15 mouth. [facility] ORAL 11:07: Medical 12 Issue UNKNOWN Yes L-Theanine [facility] 9-15 200 mg [facility] 11:07: daily . Medical 12 Issue ascorbic 0 Yes 500mg QD Take [address] acid, 9-15 mg by Luterrence vitamin C, 11:07: mouth Medica l (VITAMIN C) 12 daily. Issue 500 MG tablet TURMERIC Yes Take by [facility] ORAL 9-15 mouth. [facility] 11:07: Medical 12 Issue triamterene Yes 1{capsu QD Take [address] -hydroCHLOR 9-15 le} capsule by Marquita ocampo Othiazide 11:07: mouth Medical (DYAZIDE) 12 every Center 37.5-25 mg morning. per capsule potassium Yes 10meq QD Take [address] [facility] chloride 9-15 mEq by Luterrence (MICRO-K) 11:07: mouth Medical 10 mEq CR 12 daily . Center capsule levothyroxi 2022-0 Yes [...] tablet 12 Center hydrOXYzine Yes anxiety 50mg [id number] Take [address] [facility] (ATARAX) 25 9-15 [id number] by mouth 3 [facility] MG tablet 11:07: [...] St citrate-vit 9-15 tablet by Alexia es solomon D 11:07: mouth 2 Medical (CITRACAL+D 12 (two) Center ) 315-200 times mg-unit per daily. tablet omega-3s-dh Yes QD Take by [facility] a-epa-fish 9-15 mouth [facility] oil (FISH 11:07: daily. Medica l OIL) 120 12 Center mg-180 mg- 60 mg-1,200 mg CpDR lactobacill 2021-0 Yes 1{capsu QD Take [address] us 9-15 le} capsule by [facility] rhamnosus, 11:07: mouth Medica l GG, 12 daily. Issue ([facility] ) 10 billion cell capsule polycarboph 2021-0 Yes 625mg [id number] Take [address] il 9-15 [id number] mg by [facility] (FIBERCON) 11:07: 3D mouth 3 Medi mariama 625 mg 12 (three) Center tablet times daily. biotin 2021-0 Yes QD Take by [facility] 2,500 mcg 9-15 mouth [facility] Cap 11:07: daily. [address] MAGNESIUM 0 Yes Take by [facility] GLYCINATE 9-15 mouth. [facility] ORAL 11:07: [address] UNKNOWN 0 Yes L-Theanine [facility] 9-15 200 mg [facility] 11:07: daily . [address] ascorbic 0 Yes 500mg QD Take [address] acid, 9-15 mg by [facility] vitamin C, 11:07: mouth Medica l (VITAMIN C) 12 daily. Issue 500 MG tablet TURMERIC 0 Yes Take by [facility] ORAL 9-15 mouth. [facility] 11:07: [address] omega-3s-dh 0 Yes QD Take by [facility] a-epa-fish 8-30 mouth [facility] oil (FISH 11:05: daily. Medica l OIL) 120 32 Issue mg-180 mg- 60 mg-1,200 mg CpDR lactobacill 0 Yes 1{capsu QD Take [address] us 8-30 le} capsule by [facility] rhamnosus, 11:05: mouth Medica l GG, 32 daily. [facility] ) 10 billion cell capsule polycarboph 2021-0 Yes 625mg [id number] Take [address] il 8-30 [id number] mg by [facility] (FIBERCON) 11:05: 3D mouth 3 Medi mariama 625 mg 32 (three) Center tablet times daily. biotin 2021-0 Yes QD Take by [facility] 2,500 mcg 8-30 mouth [facility] Cap 11:05: daily. [address] MAGNESIUM 0 Yes Take by [facility] GLYCINATE 8-30 mouth. [facility] ORAL 11:05: Medical 32 Center UNKNOWN Yes L-Theanine [facility] 8-30 200 mg [facility] 11:05: daily . Medical 32 Center ascorbic Yes 500mg QD Take [address] acid, 8-30 mg by Wilver vitamin C, 11:05: mouth Medica l (VITAMIN C) 32 daily. Center 500 MG tablet TURMERIC Yes Take by [facility] ORAL 8-30 mouth. [facility] 11:05: Medical 32 Center triamterene Yes 1{capsu QD Take 1 C [...] [facility] (NEURONTIN) 8-30 mg by Wilver 300 MG 11:05: mouth Medical capsule 32 daily. Center atorvastati Yes 20mg QD Take [address] n (LIPITOR) 8-30 by mouth Luke s 20 MG 11:05: daily. Medical tablet 32 Center lamoTRIgine Yes 50mg QD Take [address] (LAMICTAL) 8-30 by mouth [facility] 25 MG 11:05: daily. Medical tablet 32 Center hydrOXYzine Yes anxiety 50mg [id number] Take [address] (ATARAX) 25 8-30 [id number] by mouth 3 [facility] MG tablet 11:05: [...] Center vit A/C/E Yes QD Take by RUSSELL S t ac/ZnOx/cup 8-30 mouth [facility] rory oxide 11:05: daily. Medica l (EYE 32 Center VITAMIN AND MINERALS ORAL) b complex Yes 1{capsu QD Take [address] [facility] vitamins 8-30 le} capsule by [facility] capsule 11:05: mouth Medical 32 daily. Center calcium Yes 1{tbl} Q.5D Take [address] [facility] citrate-vit 8-30 tablet by Alexia es solomon D 11:05: mouth 2 Medical (CITRACAL+D 32 (two) Center ) 315-200 times mg-unit per daily. tablet olanzapine 2020-07 Yes 5 mg = 1 Mem oria 5 MG Oral 1-04 tab, PO, l Tablet 15:28: TID, 0 [place] 00 Refill(s) olanzapine 2020-07 Yes 5 mg = 1 Mem oria 5 MG Oral 1-04 tab, PO, l Tablet 15:28: TID, 0 [place] 00 Refill(s) olanzapine 2020-07 Yes 5 mg = 1 Mem oria 5 MG Oral 1-04 tab, PO, l Tablet 15:28: TID, 0 [place] 00 Refill(s) olanzapine 2020-07 Yes 5 mg = 1 Mem oria 5 MG Oral 1-04 tab, PO, l Tablet 15:28: TID, 0 [place] 00 Refill(s) olanzapine 2020-07 Yes 5 mg [...] tab, PO, l Tablet 15:28: TID, 0 [place] 00 Refill(s) olanzapine 2020-07 Yes 5 mg [...] tab, PO, l Tablet 15:28: TID, 0 [place] 00 Refill(s) olanzapine 2020-07 Yes 5 mg = 1 Mem oria 5 MG Oral 1-04 tab, PO, l Tablet 15:28: TID, 0 [place] 00 Refill(s) olanzapine 2020-07 Yes 5 mg = 1 Mem oria 5 MG Oral 1-04 tab, PO, l Tablet 15:28: TID, 0 [place] 00 Refill(s) olanzapine 2020-07 Yes 5 mg = 1 Mem oria 5 MG Oral 1-04 tab, PO, l Tablet 15:28: TID, 0 [place] 00 Refill(s) olanzapine 2020-07 Yes 5 mg = 1 Mem oria 5 MG Oral 1-04 tab, PO, l Tablet 15:28: TID, 0 [place] 00 Refill(s) olanzapine 2020-07 Yes 5 mg [...] 15:28: TID, 0 [place] 00 Refill(s) olanzapine 2021-1 Yes 5 mg = 1 Mem oria 5 MG Oral 1-04 tab, PO, l Tablet 15:28: TID, 0 [place] 00 Refill(s) olanzapine 2020-07 Yes 5 mg = 1 Mem oria 5 MG Oral 1-04 tab, PO, l Tablet 15:28: TID, 0 [place] 00 Refill(s) gabapentin 2020-07 Yes 400 mg = 1 M emoria 400 MG Oral 1-04 cap, PO, l Capsule 15:24: Bedtime, # Herm beto 00 90 cap, 1 Refill(s), [id number], 157.48, cm, 05/23/21 10:05:00 CDT, Height, 63.182, kg, 05/23/21 10:05:00 CDT, Weight gabapentin 2020-07 Yes 400 mg = 1 M emoria 400 MG Oral 1-04 cap, PO, l Capsule 15:24: Bedtime, # Herm beto 00 90 cap, 1 Refill(s), [id number], 157.48, cm, 05/23/21 10:05:00 CDT, Height, 63.182, kg, 05/23/21 10:05:00 CDT, Weight gabapentin 2020-07 Yes 400 mg = 1 M emoria 400 MG Oral 1-04 cap, PO, l Capsule 15:24: Bedtime, # Herm beto 00 90 cap, 1 Refill(s), [id number], 157.48, cm, 05/23/21 10:05:00 CDT, Height, 63.182, kg, 05/23/21 10:05:00 CDT, Weight gabapentin 2020-07 Yes 400 mg = 1 M emoria 400 MG Oral 1-04 cap, PO, l Capsule 15:24: Bedtime, # Herm beto 00 90 cap, 1 Refill(s), [id number], 157.48, cm, 05/23/21 10:05:00 CDT, Height, 63.182, kg, 05/23/21 10:05:00 CDT, Weight gabapentin 2020-07 Yes 400 mg = 1 M emoria 400 MG Oral 1-04 cap, PO, l Capsule 15:24: Bedtime, # Herm beto 00 90 cap, 1 Refill(s), Pharmacy: [facility] #[id number], 157.48, cm, 05/23/21 10:05:00 CDT, Height, 63.182, kg, 05/23/21 10:05:00 CDT, Weight gabapentin 2020-07 Yes 400 mg = 1 M emoria 400 MG Oral 1-04 cap, PO, l Capsule 15:24: Bedtime, # Herm beto 00 90 cap, 1 Refill(s), Pharmacy: [facility] #[id number], 157.48, cm, 05/23/21 10:05:00 CDT, Height, 63.182, kg, 05/23/21 10:05:00 CDT, Weight gabapentin 2020-07 Yes 400 mg = 1 M emoria 400 MG Oral 1-04 cap, PO, l Capsule 15:24: Bedtime, # Herm beto 00 90 cap, 1 Refill(s), Pharmacy: [facility] #[id number], 157.48, cm, 05/23/21 10:05:00 CDT, Height, 63.182, kg, 05/23/21 10:05:00 CDT, Weight gabapentin 2020-07 Yes 400 mg = 1 M emoria 400 MG Oral 1-04 cap, PO, l Capsule 15:24: Bedtime, # Herm beto 00 90 cap, 1 Refill(s), [id number], 157.48, cm, 05/23/21 10:05:00 CDT, Height, 63.182, kg, 05/23/21 10:05:00 CDT, Weight gabapentin 2020-07 Yes 400 mg = 1 M emoria 400 MG Oral 1-04 cap, PO, l Capsule 15:24: Bedtime, # Herm beto 00 90 cap, 1 Refill(s), [id number], 157.48, cm, 05/23/21 10:05:00 CDT, Height, 63.182, kg, 05/23/21 10:05:00 CDT, Weight gabapentin 2020-07 Yes 400 mg = 1 M emoria 400 MG Oral 1-04 cap, PO, l Capsule 15:24: Bedtime, # Herm beto 00 90 cap, 1 Refill(s), Pharmacy: [facility] #[id number], 157.48, cm, 05/23/21 10:05:00 CDT, Height, 63.182, kg, 05/23/21 10:05:00 CDT, Weight gabapentin 2020-07 Yes 400 mg = 1 M emoria 400 MG Oral 1-04 cap, PO, l Capsule 15:24: Bedtime, # Herm beto 00 90 cap, 1 Refill(s), Pharmacy: [facility] #[id number], 157.48, cm, 05/23/21 10:05:00 CDT, Height, 63.182, kg, 05/23/21 10:05:00 CDT, Weight gabapentin 2020-07 Yes 400 mg = 1 M emoria 400 MG Oral 1-04 cap, PO, l Capsule 15:24: Bedtime, # Herm beto 00 90 cap, 1 Refill(s), Pharmacy: [facility] #[id number], 157.48, cm, 05/23/21 10:05:00 CDT, Height, 63.182, kg, 05/23/21 10:05:00 CDT, Weight gabapentin 2020-07 Yes 400 mg = 1 M emoria 400 MG Oral 1-04 cap, PO, l Capsule 15:24: Bedtime, # Herm beto 00 90 cap, 1 Refill(s), [id number], 157.48, cm, 05/23/21 10:05:00 CDT, Height, 63.182, kg, 05/23/21 10:05:00 CDT, Weight gabapentin 2020-07 Yes 400 mg = 1 M emoria 400 MG Oral 1-04 cap, PO, l Capsule 15:24: Bedtime, # Herm beto 00 90 cap, 1 Refill(s), [id number], 157.48, cm, 05/23/21 10:05:00 CDT, Height, 63.182, kg, 05/23/21 10:05:00 CDT, Weight gabapentin 2020-07 Yes 400 mg = 1 M emoria 400 MG Oral 1-04 cap, PO, l Capsule 15:24: Bedtime, # Herm beto 00 90 cap, 1 Refill(s), Pharmacy: [facility] #[id number], 157.48, cm, 05/23/21 10:05:00 CDT, Height, 63.182, kg, 05/23/21 10:05:00 CDT, Weight gabapentin 2020-07 Yes 400 mg = 1 M emoria 400 MG Oral 1-04 cap, PO, l Capsule 15:24: Bedtime, # Herm beto 00 90 cap, 1 Refill(s), Pharmacy: [facility] #[id number], 157.48, cm, 05/23/21 10:05:00 CDT, Height, 63.182, kg, 05/23/21 10:05:00 CDT, Weight gabapentin 2020-07 Yes 400 mg = 1 M emoria 400 MG Oral 1-04 cap, PO, l Capsule 15:24: Bedtime, # Herm beto 00 90 cap, 1 Refill(s), Pharmacy: [facility] #[id number], 157.48, cm, 05/23/21 10:05:00 CDT, Height, 63.182, kg, 05/23/21 10:05:00 CDT, Weight gabapentin 2020-07 Yes 400 mg = 1 M emoria 400 MG Oral 1-04 cap, PO, l Capsule 15:24: Bedtime, # Herm beto 00 90 cap, 1 Refill(s), [id number], 157.48, cm, 05/23/21 10:05:00 CDT, Height, 63.182, kg, 05/23/21 10:05:00 CDT, Weight gabapentin 2020-07 Yes 400 mg = 1 M emoria 400 MG Oral 1-04 cap, PO, l Capsule 15:24: Bedtime, # Herm beto 00 90 cap, 1 Refill(s), [id number], 157.48, cm, 05/23/21 10:05:00 CDT, Height, 63.182, kg, 05/23/21 10:05:00 CDT, Weight gabapentin 2020-07 Yes 400 mg = 1 M emoria 400 MG Oral 1-04 cap, PO, l Capsule 15:24: Bedtime, # Herm beto 00 90 cap, 1 Refill(s), Pharmacy: [facility] #[id number], 157.48, cm, 05/23/21 10:05:00 CDT, Height, 63.182, kg, 05/23/21 10:05:00 CDT, Weight gabapentin 2020-07 Yes 400 mg = 1 M emoria 400 MG Oral 1-04 cap, PO, l Capsule 15:24: Bedtime, # Herm beto 00 90 cap, 1 Refill(s), Pharmacy: [facility] #[id number], 157.48, cm, 05/23/21 10:05:00 CDT, Height, 63.182, kg, 05/23/21 10:05:00 CDT, Weight gabapentin 2020-07 Yes 400 mg = 1 M emoria 400 MG Oral 1-04 cap, PO, l Capsule 15:24: Bedtime, # Herm beto 00 90 cap, 1 Refill(s), Pharmacy: [facility] #[id number], 157.48, cm, 05/23/21 10:05:00 CDT, Height, 63.182, kg, 05/23/21 10:05:00 CDT, Weight baclofen 10 2020-0 Yes 10 mg = 1 M emoria mg oral 6-23 tab, PO, l tablet 14:58: Bedtime, # Bing nn 00 30 tab, 3 Refill(s), Pharmacy: [facility] #[id number], 157.48, cm, 01/09/21 9:30:00 CDT, Height, 61.818, kg, 01/09/21 9:30:00 CDT, Weight baclofen 10 2020-0 Yes 10 mg = 1 M emoria mg oral 6-23 tab, PO, l tablet 14:58: Bedtime, # Bing nn 00 30 tab, 3 Refill(s), Pharmacy: [facility] #[id number], 157.48, cm, 01/09/21 9:30:00 CDT, Height, 61.818, kg, 01/09/21 9:30:00 CDT, Weight baclofen 10 2020-0 Yes 10 mg = 1 M emoria mg oral 6-23 tab, PO, l tablet 14:58: Bedtime, # Bing nn 00 30 tab, 3 Refill(s), Pharmacy: [facility] #[id number], 157.48, cm, 01/09/21 9:30:00 CDT, Height, 61.818, kg, 01/09/21 9:30:00 CDT, Weight baclofen 10 2020-0 Yes 10 mg = 1 M emoria mg oral 6-23 tab, PO, l tablet 14:58: Bedtime, # Bing nn 00 30 tab, 3 Refill(s), Pharmacy: [facility] #[id number], 157.48, cm, 01/09/21 9:30:00 CDT, Height, 61.818, kg, 01/09/21 9:30:00 CDT, Weight baclofen 10 2020-0 Yes 10 mg = 1 M emoria mg oral 6-23 tab, PO, l tablet 14:58: Bedtime, # Bing nn 00 30 tab, 3 Refill(s), Pharmacy: [facility] #[id number], 157.48, cm, 01/09/21 9:30:00 CDT, Height, 61.818, kg, 01/09/21 9:30:00 CDT, Weight baclofen 10 2020-0 Yes 10 mg = 1 M emoria mg oral 6-23 tab, PO, l tablet 14:58: Bedtime, # Bing nn 00 30 tab, 3 Refill(s), Pharmacy: [facility] #[id number], 157.48, cm, 01/09/21 9:30:00 CDT, Height, 61.818, kg, 01/09/21 9:30:00 CDT, Weight baclofen 10 2020-0 Yes 10 mg = 1 M emoria mg oral 6-23 tab, PO, l tablet 14:58: Bedtime, # Bing nn 00 30 tab, 3 Refill(s), Pharmacy: [facility] #[id number], 157.48, cm, 01/09/21 9:30:00 CDT, Height, 61.818, kg, 01/09/21 9:30:00 CDT, Weight baclofen 10 2020-0 Yes 10 mg = 1 M emoria mg oral 6-23 tab, PO, l tablet 14:58: Bedtime, # Bing nn 00 30 tab, 3 Refill(s), Pharmacy: [facility] #[id number], 157.48, cm, 01/09/21 9:30:00 CDT, Height, 61.818, kg, 01/09/21 9:30:00 CDT, Weight baclofen 2020-0 Yes 10 mg = 1 M emoria mg oral 6-23 tab, PO, l tablet 14:58: Bedtime, # Bing nn 00 30 tab, 3 Refill(s), Pharmacy: [facility] #[id number], 157.48, cm, 01/09/21 9:30:00 CDT, Height, 61.818, kg, 01/09/21 9:30:00 CDT, Weight baclofen 10 2020-0 Yes 10 mg = 1 M emoria mg oral 6-23 tab, PO, l tablet 14:58: Bedtime, # Bing nn 00 30 tab, 3 Refill(s), Pharmacy: [facility] #[id number], 157.48, cm, 01/09/21 9:30:00 CDT, Height, 61.818, kg, 01/09/21 9:30:00 CDT, Weight baclofen 10 2020-0 Yes 10 mg = 1 M emoria mg oral 6-23 tab, PO, l tablet 14:58: Bedtime, # Bing nn 00 30 tab, 3 Refill(s), Pharmacy: [facility] #[id number], 157.48, cm, 01/09/21 9:30:00 CDT, Height, 61.818, kg, 01/09/21 9:30:00 CDT, Weight baclofen 2020-0 Yes 10 mg = 1 M emoria mg oral 6-23 tab, PO, l tablet 14:58: Bedtime, # Bing nn 00 30 tab, 3 Refill(s), Pharmacy: [facility] #[id number], 157.48, cm, 01/09/21 9:30:00 CDT, Height, 61.818, kg, 01/09/21 9:30:00 CDT, Weight baclofen 10 2020-0 Yes 10 mg = 1 M emoria mg oral 6-23 tab, PO, l tablet 14:58: Bedtime, # Bing nn 00 30 tab, 3 Refill(s), Pharmacy: [facility] #[id number], 157.48, cm, 01/09/21 9:30:00 CDT, Height, 61.818, kg, 01/09/21 9:30:00 CDT, Weight baclofen 10 2020-0 Yes 10 mg = 1 M emoria mg oral 6-23 tab, PO, l tablet 14:58: Bedtime, # Bing nn 00 30 tab, 3 Refill(s), Pharmacy: [facility] #[id number], 157.48, cm, 01/09/21 9:30:00 CDT, Height, 61.818, kg, 01/09/21 9:30:00 CDT, Weight baclofen 10 2020-0 Yes 10 mg = 1 M emoria mg oral 6-23 tab, PO, l tablet 14:58: Bedtime, # Bing nn 00 30 tab, 3 Refill(s), Pharmacy: [facility] #[id number], 157.48, cm, 01/09/21 9:30:00 CDT, Height, 61.818, kg, 01/09/21 9:30:00 CDT, Weight baclofen 10 2020-0 Yes 10 mg = 1 M emoria mg oral 6-23 tab, PO, l tablet 14:58: Bedtime, # Bing nn 00 30 tab, 3 Refill(s), Pharmacy: [facility] #[id number], 157.48, cm, 01/09/21 9:30:00 CDT, Height, 61.818, kg, 01/09/21 9:30:00 CDT, Weight baclofen 10 2020-0 Yes 10 mg = 1 M emoria mg oral 6-23 tab, PO, l tablet 14:58: Bedtime, # Bing nn 00 30 tab, 3 Refill(s), Pharmacy: [facility] #[id number], 157.48, cm, 01/09/21 9:30:00 CDT, Height, 61.818, kg, 01/09/21 9:30:00 CDT, Weight baclofen 10 2020-0 Yes 10 mg = 1 M emoria mg oral 6-23 tab, PO, l tablet 14:58: Bedtime, # Bing nn 00 30 tab, 3 Refill(s), Pharmacy: [facility] #[id number], 157.48, cm, 01/09/21 9:30:00 CDT, Height, 61.818, kg, 01/09/21 9:30:00 CDT, Weight baclofen 10 2020-0 Yes 10 mg = 1 M emoria mg oral 6-23 tab, PO, l tablet 14:58: Bedtime, # Bing nn 00 30 tab, 3 Refill(s), Pharmacy: [facility] #[id number], 157.48, cm, 01/09/21 9:30:00 CDT, Height, 61.818, kg, 01/09/21 9:30:00 CDT, Weight baclofen 10 2020-0 Yes 10 mg = 1 M emoria mg oral 6-23 tab, PO, l tablet 14:58: Bedtime, # Bing nn 00 30 tab, 3 Refill(s), Pharmacy: [facility] #[id number], 157.48, cm, 01/09/21 9:30:00 CDT, Height, 61.818, kg, 01/09/21 9:30:00 CDT, Weight baclofen 10 2020-0 Yes 10 mg = 1 M emoria mg oral 6-23 tab, PO, l tablet 14:58: Bedtime, # Bing nn 00 30 tab, 3 Refill(s), Pharmacy: [facility] #[id number], 157.48, cm, 01/09/21 9:30:00 CDT, Height, 61.818, kg, 01/09/21 9:30:00 CDT, Weight baclofen 10 2020-0 Yes 10 mg = 1 M emoria mg oral 6-23 tab, PO, l tablet 14:58: Bedtime, # Bing nn 00 30 tab, 3 Refill(s), [id number], 157.48, cm, 01/09/21 9:30:00 CDT, Height, 61.818, kg, 01/09/21 9:30:00 CDT, Weight gabapentin 2021-0 Yes 600 mg = 2 M emoria 300 MG Oral 2-17 cap, PO, l Capsule 19:42: Bedtime, # Herm beto 00 180 cap, 2 Refill(s), Pharmacy: [facility] #[id number], 160.02, cm, 09/05/20 13:20:00 FACE BURLER, Height, 59.545, kg, 09/05/20 13:20:00 FACE BURLER, Weight gabapentin 2021-0 Yes 600 mg = 2 M emoria 300 MG Oral 2-17 cap, PO, l Capsule 19:42: Bedtime, # Herm beto 00 180 cap, 2 Refill(s), [id number], 160.02, cm, 09/05/20 13:20:00 FACE BURLER, Height, 59.545, kg, 09/05/20 13:20:00 FACE BURLER, Weight gabapentin 2021-0 Yes 600 mg = 2 M emoria 300 MG Oral 2-17 cap, PO, l Capsule 19:42: Bedtime, # Herm beto 00 180 cap, 2 Refill(s), [id number], 160.02, cm, 09/05/20 13:20:00 FACE BURLER, Height, 59.545, kg, 09/05/20 13:20:00 FACE BURLER, Weight gabapentin 2021-0 Yes 600 mg = 2 M emoria 300 MG Oral 2-17 cap, PO, l Capsule 19:42: Bedtime, # Herm beto 00 180 cap, 2 Refill(s), [id number], 160.02, cm, 09/05/20 13:20:00 FACE BURLER, Height, 59.545, kg, 09/05/20 13:20:00 FACE BURLER, Weight gabapentin 2021-0 Yes 600 mg = 2 M emoria 300 MG Oral 2-17 cap, PO, l Capsule 19:42: Bedtime, # Herm beto 00 180 cap, 2 Refill(s), [facility][id number], 160.02, cm, 09/05/20 13:20:00 FACE BURLER, Height, 59.545, kg, 09/05/20 13:20:00 FACE BURLER, Weight gabapentin 2021-0 Yes 600 mg = 2 M emoria 300 MG Oral 2-17 cap, PO, l Capsule 19:42: Bedtime, # Herm beto 00 180 cap, 2 Refill(s), [id number], 160.02, cm, 09/05/20 13:20:00 FACE BURLER, Height, 59.545, kg, 09/05/20 13:20:00 FACE BURLER, Weight gabapentin 2021-0 Yes 600 mg = 2 M emoria 300 MG Oral 2-17 cap, PO, l Capsule 19:42: Bedtime, # Herm beto 00 180 cap, 2 Refill(s), [id number], 160.02, cm, 09/05/20 13:20:00 FACE BURLER, Height, 59.545, kg, 09/05/20 13:20:00 FACE BURLER, Weight gabapentin 2021-0 Yes 600 mg = 2 M emoria 300 MG Oral 2-17 cap, PO, l Capsule 19:42: Bedtime, # Herm beto 00 180 cap, 2 Refill(s), [id number], 160.02, cm, 09/05/20 13:20:00 FACE BURLER, Height, 59.545, kg, 09/05/20 13:20:00 FACE BURLER, Weight gabapentin 2021-0 Yes 600 mg = 2 M emoria 300 MG Oral 2-17 cap, PO, l Capsule 19:42: Bedtime, # Herm beto 00 180 cap, 2 Refill(s), [id number], 160.02, cm, 09/05/20 13:20:00 FACE BURLER, Height, 59.545, kg, 09/05/20 13:20:00 FACE BURLER, Weight gabapentin 2021-0 Yes 600 mg = 2 M emoria 300 MG Oral 2-17 cap, PO, l Capsule 19:42: Bedtime, # Herm beto 00 180 cap, 2 Refill(s), [id number], 160.02, cm, 09/05/20 13:20:00 FACE BURLER, Height, 59.545, kg, 09/05/20 13:20:00 FACE BURLER, Weight gabapentin 2021-0 Yes 600 mg = 2 M emoria 300 MG Oral 2-17 cap, PO, l Capsule 19:42: Bedtime, # Herm beto 00 180 cap, 2 Refill(s), [id number], 160.02, cm, 09/05/20 13:20:00 FACE BURLER, Height, 59.545, kg, 09/05/20 13:20:00 FACE BURLER, Weight gabapentin 2021-0 Yes 600 mg = 2 M emoria 300 MG Oral 2-17 cap, PO, l Capsule 19:42: Bedtime, # Herm beto 00 180 cap, 2 Refill(s), [id number], 160.02, cm, 09/05/20 13:20:00 FACE BURLER, Height, 59.545, kg, 09/05/20 13:20:00 FACE BURLER, Weight gabapentin 2021-0 Yes 600 mg = 2 M emoria 300 MG Oral 2-17 cap, PO, l Capsule 19:42: Bedtime, # Herm beto 00 180 cap, 2 Refill(s), [id number], 160.02, cm, 09/05/20 13:20:00 FACE BURLER, Height, 59.545, kg, 09/05/20 13:20:00 FACE BURLER, Weight gabapentin 2021-0 Yes 600 mg = 2 M emoria 300 MG Oral 2-17 cap, PO, l Capsule 19:42: Bedtime, # Herm beto 00 180 cap, 2 Refill(s), [id number], 160.02, cm, 09/05/20 13:20:00 FACE BURLER, Height, 59.545, kg, 09/05/20 13:20:00 FACE BURLER, Weight gabapentin 2021-0 Yes 600 mg = 2 M emoria 300 MG Oral 2-17 cap, PO, l Capsule 19:42: Bedtime, # Herm beto 00 180 cap, 2 Refill(s), [id number], 160.02, cm, 09/05/20 13:20:00 FACE BURLER, Height, 59.545, kg, 09/05/20 13:20:00 FACE BURLER, Weight gabapentin 2021-0 Yes 600 mg = 2 M emoria 300 MG Oral 2-17 cap, PO, l Capsule 19:42: Bedtime, # Herm beto 00 180 cap, 2 Refill(s), Pharmacy: [facility] #[id number], 160.02, cm, 09/05/20 13:20:00 FACE BURLER, Height, 59.545, kg, 09/05/20 13:20:00 FACE BURLER, Weight gabapentin 2021-0 Yes 600 mg = 2 M emoria 300 MG Oral 2-17 cap, PO, l Capsule 19:42: Bedtime, # Herm beto 00 180 cap, 2 Refill(s), Pharmacy: [facility] #[id number], 160.02, cm, 09/05/20 13:20:00 FACE BURLER, Height, 59.545, kg, 09/05/20 13:20:00 FACE BURLER, Weight gabapentin 2021-0 Yes 600 mg = 2 M emoria 300 MG Oral 2-17 cap, PO, l Capsule 19:42: Bedtime, # Herm beto 00 180 cap, 2 Refill(s), Pharmacy: [facility] #[id number], 160.02, cm, 09/05/20 13:20:00 FACE BURLER, Height, 59.545, kg, 09/05/20 13:20:00 FACE BURLER, Weight gabapentin 2021-0 Yes 600 mg = 2 M emoria 300 MG Oral 2-17 cap, PO, l Capsule 19:42: Bedtime, # Herm beto 00 180 cap, 2 Refill(s), Pharmacy: [facility] #[id number], 160.02, cm, 09/05/20 13:20:00 FACE BURLER, Height, 59.545, kg, 09/05/20 13:20:00 FACE BURLER, Weight gabapentin 2021-0 Yes 600 mg = 2 M emoria 300 MG Oral 2-17 cap, PO, l Capsule 19:42: Bedtime, # Herm beto 00 180 cap, 2 Refill(s), [id number], 160.02, cm, 09/05/20 13:20:00 FACE BURLER, Height, 59.545, kg, 09/05/20 13:20:00 FACE BURLER, Weight gabapentin Yes 600 mg = 2 M emoria 300 MG Oral 2-17 cap, PO, l Capsule 19:42: Bedtime, # Herm beto 00 180 cap, 2 Refill(s), Pharmacy: [facility] #[id number], 160.02, cm, 09/05/20 13:20:00 FACE BURLER, Height, 59.545, kg, 09/05/20 13:20:00 FACE BURLER, Weight gabapentin Yes 600 mg = 2 M emoria 300 MG Oral 2-17 cap, PO, l Capsule 19:42: Bedtime, # Herm beto 00 180 cap, 2 Refill(s), Pharmacy: [facility] #[id number], 160.02, cm, 09/05/20 13:20:00 FACE BURLER, Height, 59.545, kg, 09/05/20 13:20:00 FACE BURLER, Weight triamterene 2019-07 Yes 1{capsu Take 1 U nivers -hydrochlor 2-07 le} capsule by it y of othiazide 20:27: mouth. [place] 37.5-25 mg Medical per capsule Branch b complex 2019-07 Yes 1{capsu Take 1 Uni vers vitamins 2-07 le} capsule by ity o f capsule 20:27: mouth. [address] MAGNESIUM 2019-07 Yes Take by Unive rs GLYCINATE 2-07 mouth. ity of ORAL 20:27: [address] TURMERIC 2019-07 Yes Take by Univer s ORAL 2-07 mouth. ity of 20:27: [address] ascorbic 2019-07 Yes 500mg Take 500 Univ ers acid, 2-07 mg by ity of vitamin C, 20:27: mouth. [place] 500 mg Medical tablet Branch atorvastati 2019-07 Yes 20mg Take 20 mg Univers n 20 mg 2-07 by mouth. ity of tablet 20:27: [address] baclofen 10 2019-07 Yes 10mg Take 10 mg Univers mg tablet 2-07 by mouth. ity o f 20:27: [address] Biotin 2019-07 Yes Take by Univers 2,500 mcg 2-07 mouth. ity of Cap 20:27: [address] calcium 2019-07 Yes 1{tbl} Take 1 Univer s citrate-vit 2-07 tablet by ity of [place] D3 315 20:27: [place]. [place] mg-5 mcg Medical (200 unit) Branch per tablet polycarboph 2019-07 Yes 625mg Take 625 U nivers [place] 625 mg 2-07 mg by ity of tablet 20:27: mouth. [address] Branch gabapentin 2019-07 Yes 300mg Take 300 Un land[place] 300 mg 2-07 mg by ity of capsule 20:27: mouth. [place] [address] Medical Branch hydrOXYzine 2019-07 Yes 50mg Take 50 mg Univers 25 mg 2-07 by mouth. ity of tablet 20:27: [address] Branch lactobacill 2019-07 Yes 1{capsu Take 1 U nivers us 2-07 le} capsule by ity of rhamnosus, 20:27: mouth. [place] GG, 10 Medical billion Branch cell capsule lamoTRIgine 2019-07 Yes 50mg Take 50 mg Univers 25 mg 2-07 by mouth. ity of tablet 20:27: [address] Branch levothyroxi 2019-07 Yes 125ug Take 125 U nivers ne 125 mcg 2-07 mcg by ity of tablet 20:27: mouth. [address] Branch multivitami 2019-07 Yes 1{capsu Take 1 U nivers n capsule 2-07 le} capsule by ity of 20:27: mouth. [address] omega-3s-dh 2019-07 Yes Take by Uni vers a-epa-fish 2-07 mouth. ity of oil 120 20:27: [place] mg-180 mg- Medical 60 mg-1,200 Branch mg CpDR potassium 2019-07 Yes 10meq Take 10 Univ ers chloride 10 2-07 mEq by ity of mEq CR 20:27: mouth. [place] [address] Medical Branch triamterene 2019-07 Yes 1{capsu Take 1 U nivers -hydrochlor 2-07 le} capsule by it y of othiazide 20:27: mouth. [place] 37.5-25 mg Medical per capsule Branch b complex 2020 Yes 1{capsu Take 1 Uni vers vitamins 2-07 le} capsule by ity o f capsule 20:27: mouth. [address] MAGNESIUM 2019-07 Yes Take by Unive rs GLYCINATE 2-07 mouth. ity of ORAL 20:27: [address] Branch TURMERIC 2019-07 Yes Take by Univer s ORAL 2-07 mouth. ity of 20:27: [place] [address] Medical Branch ascorbic 2019- Yes 500mg Take 500 Univ ers acid, 2-07 mg by ity of vitamin C, 20:27: mouth. [place] 500 mg Medical tablet Branch atorvastati 2019-07 Yes 20mg Take 20 mg Univers n 20 mg 2-07 by mouth. ity of tablet 20:27: [address] baclofen 10 2019-07 Yes 10mg Take 10 mg Univers mg tablet 2-07 by mouth. ity o f 20:27: [address] Branch Biotin 2019-07 Yes Take by Univers 2,500 mcg 2-07 mouth. ity of Cap 20:27: [address] calcium 2019-07 Yes 1{tbl} Take 1 Univer s citrate-vit 2-07 tablet by ity of solomon D3 315 20:27: [place]. [place] mg-5 mcg Medical (200 unit) [place] per tablet polycarboph 2019-07 Yes 625mg Take 625 U nivers il 625 mg 2-07 mg by ity of tablet 20:27: mouth. [address] Branch gabapentin 2019-07 Yes 300mg Take 300 Un landen 300 mg 2-07 mg by ity of capsule 20:27: mouth. [address] Branch hydrOXYzine 2019-07 Yes 50mg Take 50 mg Univers 25 mg 2-07 by mouth. ity of tablet 20:27: [address] Branch lactobacill 2019-07 Yes 1{capsu Take 1 U nivers us 2-07 le} capsule by ity of rhamnosus, 20:27: mouth. [place] GG, 10 Medical billion Branch cell capsule lamoTRIgine 2019-07 Yes 50mg Take 50 mg Univers 25 mg 2-07 by mouth. ity of tablet 20:27: [address] Branch levothyroxi 2019- Yes 125ug Take 125 U nivers ne 125 mcg 2-07 mcg by ity of tablet 20:27: mouth. [address] multivitami 2019- Yes 1{capsu Take 1 U nivers n capsule 2-07 le} capsule by ity of 20:27: mouth. [address] omega-3s-dh 2019- Yes Take by Uni vers a-epa-fish 2-07 mouth. ity of oil 120 20:27: [place] mg-180 mg- 36 Medical 60 mg-1,200 Branch mg CpDR potassium 2019-07 Yes 10meq Take 10 Univ ers chloride 10 2-07 mEq by ity of mEq CR 20:27: mouth. [place] capsule Medical Branch triamterene 2019-07 Yes 1{capsu Take 1 U nivers -hydrochlor 2-07 le} capsule by it y of othiazide 20:27: mouth. [place] 37.5-25 mg 36 Medical per capsule Branch b complex 2019-07 Yes 1{capsu Take 1 Uni vers vitamins 2-07 le} capsule by ity o f capsule 20:27: mouth. [place] [address] Medical Branch MAGNESIUM 2019-07 Yes Take by Unive rs GLYCINATE 2-07 mouth. ity of ORAL 20:27: [address] Branch TURMERIC 2019-07 Yes Take by Univer s ORAL 2-07 mouth. ity of 20:27: [place] [address] Medical Branch ascorbic 2019-07 Yes 500mg Take 500 Univ ers acid, 2-07 mg by ity of vitamin C, 20:27: mouth. [place] 500 mg Medical tablet Branch MAGNESIUM 2019-07 Yes Take by Unive rs GLYCINATE 2-07 mouth. ity of ORAL 20:27: [address] Branch atorvastati 2019-07 Yes 20mg Take 20 mg Univers n 20 mg 2-07 by mouth. ity of tablet 20:27: [address] Branch baclofen 10 2019-07 Yes 10mg Take 10 mg Univers mg tablet 2-07 by mouth. ity o f 20:27: [place] [address] Medical Branch Biotin 2019-07 Yes Take by Univers 2,500 mcg 2-07 mouth. ity of Cap 20:27: [address] Branch calcium 2019-07 Yes 1{tbl} Take 1 Univer s citrate-vit 2-07 tablet by ity of solomon D3 315 20:[facility]: [facility] [place] (200 unit[facility] Branch per tablet polycarboph 2019-07 Yes 625mg Take 625 U nivers il 625 mg 2-07 mg by ity of tablet 20:27: mouth. [place] [address] Medical Branch gabapentin 2019-07 Yes 300mg Take 300 Un landen 300 mg 2-07 mg by ity of capsule 20:27: mouth. [address] Branch TURMERIC 2019-07 Yes Take by Univer s ORAL 2-07 mouth. ity of 20:27: [place] [address] Medical Branch hydrOXYzine 2019-07 Yes 50mg Take 50 mg Univers 25 mg 2-07 by mouth. ity of tablet 20:27: [address] Branch lactobacill 2019-07 Yes 1{capsu Take 1 U nivers us 2-07 le} capsule by ity of rhamnosus, 20:27: mouth. [place] GG, 10 Medical billion Branch cell capsule lamoTRIgine 2019-07 Yes 50mg Take 50 mg Univers 25 mg 2-07 by mouth. ity of tablet 20:27: [place] [address] Medical Branch levothyroxi 2019-07 Yes 125ug Take 125 U nivers ne 125 mcg 2-07 mcg by ity of tablet 20:27: mouth. [address] Branch ascorbic 2019-07 Yes 500mg Take 500 Univ ers acid, 2-07 mg by ity of vitamin C, 20:27: mouth. [place] 500 mg Medical tablet Branch multivitami 2019-07 Yes 1{capsu Take 1 U nivers n capsule 2-07 le} capsule by ity of 20:27: mouth. [address] Branch omega-3s-dh 2019-07 Yes Take by Uni vers a-epa-fish 2-07 mouth. ity of oil 120 20:27: [place] [facility],200 Branch mg CpDR potassium 2019-07 Yes 10meq Take 10 Univ ers chloride 10 2-07 mEq by ity of mEq CR 20:27: mouth. [address] atorvastati 2019-07 Yes 20mg Take 20 mg Univers n 20 mg 2-07 by mouth. ity of tablet 20:27: [address] Branch triamterene 2019-07 Yes 1{capsu Take 1 U nivers -hydrochlor 2-07 le} capsule by it y of othiazide 20:27: mouth. [place] 37.5-25 mg Medical per capsule Branch b complex 2019-07 Yes 1{capsu Take 1 Uni vers vitamins 2-07 le} capsule by ity o f capsule 20:27: mouth. [address] MAGNESIUM 2019-07 Yes Take by [facility] rs GLYCINATE 2-07 mouth. ity of ORAL 20:27: [address] TURMERIC 2019-07 Yes Take by [facility] s ORAL 2-07 mouth. ity of 20:27: [address] ascorbic 2019-07 Yes 500mg Take 500 Univ ers acid, 2-07 mg by ity of vitamin C, 20:27: mouth. [place] 500 mg Medical tablet Branch atorvastati 2019-07 Yes 20mg Take 20 mg Univers n 20 mg 2-07 by mouth. ity of tablet 20:27: [address] Branch baclofen 10 2019-07 Yes 10mg Take 10 mg Univers mg tablet 2-07 by mouth. ity o f 20:27: [address] Biotin 2019-07 Yes Take by Univers 2,500 mcg 2-07 mouth. ity of Cap 20:27: [address] calcium 2019-07 Yes 1{tbl} Take 1 Univer s citrate-vit 2-07 tablet by ity of solomon D3 315 20:27: mouth. [place] mg-5 mcg Medical (200 unit) Branch per tablet polycarboph 2019-07 Yes 625mg Take 625 U nivers il 625 mg 2-07 mg by ity of tablet 20:27: mouth. [address] Branch gabapentin 2019-07 Yes 300mg Take 300 Un landen 300 mg 2-07 mg by ity of capsule 20:27: mouth. [address] Branch baclofen 10 2019-07 Yes 10mg Take 10 mg Univers mg tablet 2-07 by mouth. ity o f 20:27: [address] hydrOXYzine 2019-07 Yes 50mg Take 50 mg Univers 25 mg 2-07 by mouth. ity of tablet 20:27: [address] Branch lactobacill 2019-07 Yes 1{capsu Take 1 U nivers us 2-07 le} capsule by ity of rhamnosus, 20:27: mouth. [place] GG, [address] [place] [address] billion Branch cell capsule lamoTRIgine 2019-07 Yes 50mg Take 50 mg Univers 25 mg 2-07 by mouth. ity of tablet 20:27: [address] Branch levothyroxi 2019-07 Yes 125ug Take 125 U nivers ne 125 mcg 2-07 mcg by ity of tablet 20:27: mouth. [address] multivitami 2019-07 Yes 1{capsu Take 1 U nivers n capsule 2-07 le} capsule by ity of 20:27: mouth. [address] omega-3s-dh 2019-07 Yes Take by Uni vers a-epa-fish 2-07 mouth. ity of oil 120 20:27: [place] mg-180 mg- Medical 60 mg-1,200 Branch mg CpDR potassium 2019-07 Yes 10meq Take 10 Univ ers chloride 10 2-07 mEq by ity of mEq CR 20:27: mouth. [place] capsule Medical Branch Biotin 2019-07 Yes Take by Univers 2,500 mcg 2-07 mouth. ity of Cap 20:27: [address] Branch triamterene 2019-07 Yes 1{capsu Take 1 U nivers -hydrochlor 2-07 le} capsule by it y of othiazide 20:27: mouth. [place] 37.5-25 mg Medical per capsule Branch b complex 2019-07 Yes 1{capsu Take 1 Uni vers vitamins 2-07 le} capsule by ity o f capsule 20:27: mouth. [address] Branch calcium 2019-07 Yes 1{tbl} Take 1 Univer s citrate-vit 2-07 tablet by ity of solomon D3 315 20:27: mouth. [place] mg-5 mcg Medical (200 unit) Branch per tablet polycarboph 2019-07 Yes 625mg Take 625 U nivers il 625 mg 2-07 mg by ity of tablet 20:27: mouth. [address] Branch gabapentin 2019-07 Yes 300mg Take 300 Un landen 300 mg 2-07 mg by ity of capsule 20:27: mouth. [address] Branch hydrOXYzine 2019-07 Yes 50mg Take 50 mg Univers 25 mg 2-07 by mouth. ity of tablet 20:27: [address] Branch lactobacill 2019-07 Yes 1{capsu Take 1 U nivers us 2-07 le} capsule by ity of rhamnosus, 20:27: mouth. [place] GG, 10 Medical billion Branch cell capsule lamoTRIgine 2019-07 Yes 50mg Take 50 mg Univers 25 mg 2-07 by mouth. ity of tablet 20:27: [address] Branch levothyroxi 2019-07 Yes 125ug Take 125 U nivers ne 125 mcg 2-07 mcg by ity of tablet 20:27: mouth. [address] Branch multivitami 2019-07 Yes 1{capsu Take 1 U nivers n capsule 2-07 le} capsule by ity of 20:27: mouth. [address] Branch omega-3s-dh 2019-07 Yes Take by Uni vers a-epa-fish 2-07 mouth. ity of oil 120 20:27: [place] mg-180 mg- Medical 60 mg-1,200 Branch mg CpDR potassium 2019-07 Yes 10meq Take 10 Univ ers chloride 10 2-07 mEq by ity of mEq CR 20:27: mouth. [place] capsule Medical [place] triamterene 2019-07 Yes 1{capsu Take 1 U nivers -hydrochlor 2-07 le} capsule by it y of othiazide 20:27: mouth. [place] 37.5-25 mg Medical per capsule Branch b complex 2019-07 Yes 1{capsu Take 1 Uni vers vitamins 2-07 le} capsule by ity o f capsule 20:27: mouth. [address] MAGNESIUM 2019-07 Yes Take by Unive rs GLYCINATE 2-07 mouth. ity of ORAL 20:27: [address] TURMERIC 2019-07 Yes Take by Univer s ORAL 2-07 mouth. ity of 20:27: [address] ascorbic 2019-07 Yes 500mg Take 500 Univ ers acid, 2-07 mg by ity of vitamin C, 20:27: mouth. [place] 500 mg Medical tablet Branch atorvastati 2019-07 Yes 20mg Take 20 mg Univers n 20 mg 2-07 by mouth. ity of tablet 20:27: [address] baclofen 10 2019-07 Yes 10mg Take 10 mg Univers mg tablet 2-07 by mouth. ity o f 20:27: [address] Biotin 2019-07 Yes Take by Univers 2,500 mcg 2-07 mouth. ity of Cap 20:27: [address] calcium 2019-07 Yes 1{tbl} Take 1 Univer s citrate-vit 2-07 tablet by ity of solomon D3 315 20:27: mouth. [place] mg-5 mcg Medical (200 unit) Branch per tablet polycarboph 2019-07 Yes 625mg Take 625 U nivers il 625 mg 2-07 mg by ity of tablet 20:27: mouth. [address] gabapentin 2019-07 Yes 300mg Take 300 Un land[place] 300 mg 2-07 mg by ity of capsule 20:27: mouth. [address] hydrOXYzine 2019-07 Yes 50mg Take 50 mg Univers 25 mg 2-07 by mouth. ity of tablet 20:27: [address] lactobacill 2020- Yes 1{capsu Take 1 U nivers us 2-07 le} capsule by ity of rhamnosus, 20:27: mouth. [place] GG, [address] [place] [address] billion Branch cell capsule lamoTRIgine 2019-07 Yes 50mg Take 50 mg Univers 25 mg 2-07 by mouth. ity of tablet 20:27: [address] levothyroxi 2019- Yes 125ug Take 125 U nivers ne 125 mcg 2-07 mcg by ity of tablet 20:27: mouth. [address] multivitami 2020- Yes 1{capsu Take 1 U nivers n capsule 2-07 le} capsule by ity of 20:27: mouth. [address] omega-3s-dh 2019-07 Yes Take by Uni vers a-epa-fish 2-07 mouth. ity of oil 120 20:27: [place] mg-180 mg- 36 [facility] 60 mg-1,200 Branch mg CpDR potassium 2019-07 Yes 10meq Take 10 Univ ers chloride 10 2-07 mEq by ity of mEq CR 20:27: mouth. [place] capsule 36 [facility] gabapentin 2019- Yes TK 1 C PO Un landen 100 mg 2-04 IN THE ity of capsule 00:00: MORNING [place] 00 AND AT [facility] gabapentin 2020 Yes TK 1 C PO Un landen 100 mg 2-04 IN THE ity of capsule 00:00: MORNING [place] 00 AND AT [facility] gabapentin 2019-07 Yes TK 1 C PO Un landen 100 mg 2-04 IN THE ity of capsule 00:00: MORNING [place] 00 AND AT [facility] gabapentin 2020- Yes TK 1 C PO Un landen 100 mg 2-04 IN THE ity of capsule 00:00: MORNING [place] 00 AND AT [facility] gabapentin 2020- Yes TK 1 C PO Un landen 100 mg 2-04 IN THE ity of capsule 00:00: MORNING [place] 00 AND AT [facility] gabapentin 2019-07 Yes TK 1 C PO Un landen 100 mg 2-04 IN THE ity of capsule 00:00: MORNING [place] 00 AND AT [facility] gabapentin 2020- Yes = 1 cap, Mem oria 300 MG Oral 2-03 PO, l Capsule 20:46: Bedtime, # Herm beto 00 30 cap, 6 Refill(s), [id number], 157.48, cm, 06/21/20 13:55:00 FACE BURLER, Height, 62.727, kg, 06/21/20 14:10:00 FACE BURLER, Weight baclofen 10 2019-07 Yes = 1 tab, Me moria mg oral 2-03 PO, l tablet 20:46: Bedtime, # Bing nn 00 30 tab, 4 Refill(s), [id number], 157.48, cm, 06/21/20 13:55:00 FACE BURLER, Height, 62.727, kg, 06/21/20 14:10:00 FACE BURLER, Weight gabapentin 2019-07 Yes = 1 cap, Mem oria 300 MG Oral 2-03 PO, l Capsule 20:46: Bedtime, # Herm beto 00 30 cap, 6 Refill(s), [id number], 157.48, cm, 06/21/20 13:55:00 FACE BURLER, Height, 62.727, kg, 06/21/20 14:10:00 FACE BURLER, Weight baclofen 2019-07 Yes = 1 tab, Me moria mg oral 2-03 PO, l tablet 20:46: Bedtime, # Bing nn 00 30 tab, 4 Refill(s), [id number], 157.48, cm, 06/21/20 13:55:00 FACE BURLER, Height, 62.727, kg, 06/21/20 14:10:00 FACE BURLER, Weight gabapentin 2019-07 Yes = 1 cap, Mem oria 300 MG Oral 2-03 PO, l Capsule 20:46: Bedtime, # Herm beto 00 30 cap, 6 Refill(s), [id number], 157.48, cm, 06/21/20 13:55:00 FACE BURLER, Height, 62.727, kg, 06/21/20 14:10:00 FACE BURLER, Weight baclofen 10 2019-07 Yes = 1 tab, Me moria mg oral 2-03 PO, l tablet 20:46: Bedtime, # Bing nn 00 30 tab, 4 Refill(s), [id number], 157.48, cm, 06/21/20 13:55:00 FACE BURLER, Height, 62.727, kg, 06/21/20 14:10:00 FACE BURLER, Weight gabapentin 2019-07 Yes = 1 cap, Mem oria 300 MG Oral 2-03 PO, l Capsule 20:46: Bedtime, # Herm beto 00 30 cap, 6 Refill(s), Pharmacy: [facility] #[id number], 157.48, cm, 06/21/20 13:55:00 FACE BURLER, Height, 62.727, kg, 06/21/20 14:10:00 FACE BURLER, Weight baclofen 10 2019-07 Yes = 1 tab, Me moria mg oral 2-03 PO, l tablet 20:46: Bedtime, # Bing nn 00 30 tab, 4 Refill(s), Pharmacy: [facility] #[id number], 157.48, cm, 06/21/20 13:55:00 FACE BURLER, Height, 62.727, kg, 06/21/20 14:10:00 FACE BURLER, Weight gabapentin 2019-07 Yes = 1 cap, Mem oria 300 MG Oral 2-03 PO, l Capsule 20:46: Bedtime, # Herm beto 00 30 cap, 6 Refill(s), Pharmacy: [facility] #[id number], 157.48, cm, 06/21/20 13:55:00 FACE BURLER, Height, 62.727, kg, 06/21/20 14:10:00 FACE BURLER, Weight baclofen 10 2019-07 Yes = 1 tab, Me moria mg oral 2-03 PO, l tablet 20:46: Bedtime, # Bing nn 00 30 tab, 4 Refill(s), Pharmacy: [facility] #[id number], 157.48, cm, 06/21/20 13:55:00 FACE BURLER, Height, 62.727, kg, 06/21/20 14:10:00 FACE BURLER, Weight gabapentin 2019-07 Yes = 1 cap, Mem oria 300 MG Oral 2-03 PO, l Capsule 20:46: Bedtime, # Herm beto 00 30 cap, 6 Refill(s), [id number], 157.48, cm, 06/21/20 13:55:00 FACE BURLER, Height, 62.727, kg, 06/21/20 14:10:00 FACE BURLER, Weight baclofen 10 2019-07 Yes = 1 tab, Me moria mg oral 2-03 PO, l tablet 20:46: Bedtime, # Bing nn 00 30 tab, 4 Refill(s), [id number], 157.48, cm, 06/21/20 13:55:00 FACE BURLER, Height, 62.727, kg, 06/21/20 14:10:00 FACE BURLER, Weight gabapentin 2019-07 Yes = 1 cap, Mem oria 300 MG Oral 2-03 PO, l Capsule 20:46: Bedtime, # Herm beto 00 30 cap, 6 Refill(s), [id number], 157.48, cm, 06/21/20 13:55:00 FACE BURLER, Height, 62.727, kg, 06/21/20 14:10:00 FACE BURLER, Weight baclofen 10 2019-07 Yes = 1 tab, Me moria mg oral 2-03 PO, l tablet 20:46: Bedtime, # Bing nn 00 30 tab, 4 Refill(s), [id number], 157.48, cm, 06/21/20 13:55:00 FACE BURLER, Height, 62.727, kg, 06/21/20 14:10:00 FACE BURLER, Weight gabapentin 2019-07 Yes = 1 cap, Mem oria 300 MG Oral 2-03 PO, l Capsule 20:46: Bedtime, # Herm beto 00 30 cap, 6 Refill(s), [id number], 157.48, cm, 06/21/20 13:55:00 FACE BURLER, Height, 62.727, kg, 06/21/20 14:10:00 FACE BURLER, Weight baclofen 10 2019-07 Yes = 1 tab, Me moria mg oral 2-03 PO, l tablet 20:46: Bedtime, # Bing nn 00 30 tab, 4 Refill(s), Pharmacy: [facility] #[id number], 157.48, cm, 06/21/20 13:55:00 FACE BURLER, Height, 62.727, kg, 06/21/20 14:10:00 FACE BURLER, Weight gabapentin 2019-07 Yes = 1 cap, Mem oria 300 MG Oral 2-03 PO, l Capsule 20:46: Bedtime, # Herm beto 00 30 cap, 6 Refill(s), [id number], 157.48, cm, 06/21/20 13:55:00 FACE BURLER, Height, 62.727, kg, 06/21/20 14:10:00 FACE BURLER, Weight baclofen 10 2019-07 Yes = 1 tab, Me moria mg oral 2-03 PO, l tablet 20:46: Bedtime, # Bing nn 00 30 tab, 4 Refill(s), [id number], 157.48, cm, 06/21/20 13:55:00 FACE BURLER, Height, 62.727, kg, 06/21/20 14:10:00 FACE BURLER, Weight gabapentin 2019-07 Yes = 1 cap, Mem oria 300 MG Oral 2-03 PO, l Capsule 20:46: Bedtime, # Herm beto 00 30 cap, 6 Refill(s), [id number], 157.48, cm, 06/21/20 13:55:00 FACE BURLER, Height, 62.727, kg, 06/21/20 14:10:00 FACE BURLER, Weight baclofen 2019-07 Yes = 1 tab, Me moria mg oral 2-03 PO, l tablet 20:46: Bedtime, # Bing nn 00 30 tab, 4 Refill(s), [id number], 157.48, cm, 06/21/20 13:55:00 FACE BURLER, Height, 62.727, kg, 06/21/20 14:10:00 FACE BURLER, Weight gabapentin 2019-07 Yes = 1 cap, Mem oria 300 MG Oral 2-03 PO, l Capsule 20:46: Bedtime, # Herm beto 00 30 cap, 6 Refill(s), [id number], 157.48, cm, 06/21/20 13:55:00 FACE BURLER, Height, 62.727, kg, 06/21/20 14:10:00 FACE BURLER, Weight baclofen 10 2019-07 Yes = 1 tab, Me moria mg oral 2-03 PO, l tablet 20:46: Bedtime, # Bing nn 00 30 tab, 4 Refill(s), Pharmacy: [facility] #[id number], 157.48, cm, 06/21/20 13:55:00 FACE BURLER, Height, 62.727, kg, 06/21/20 14:10:00 FACE BURLER, Weight gabapentin 2019-07 Yes = 1 cap, Mem oria 300 MG Oral 2-03 PO, l Capsule 20:46: Bedtime, # Herm beto 00 30 cap, 6 Refill(s), Pharmacy: [facility] #[id number], 157.48, cm, 06/21/20 13:55:00 FACE BURLER, Height, 62.727, kg, 06/21/20 14:10:00 FACE BURLER, Weight baclofen 10 2019-07 Yes = 1 tab, Me moria mg oral 2-03 PO, l tablet 20:46: Bedtime, # Bing nn 00 30 tab, 4 Refill(s), Pharmacy: [facility] #[id number], 157.48, cm, 06/21/20 13:55:00 FACE BURLER, Height, 62.727, kg, 06/21/20 14:10:00 FACE BURLER, Weight gabapentin 2019-07 Yes = 1 cap, Mem oria 300 MG Oral 2-03 PO, l Capsule 20:46: Bedtime, # Herm beto 00 30 cap, 6 Refill(s), Pharmacy: [facility] #[id number], 157.48, cm, 06/21/20 13:55:00 FACE BURLER, Height, 62.727, kg, 06/21/20 14:10:00 FACE BURLER, Weight baclofen 10 2019-07 Yes = 1 tab, Me moria mg oral 2-03 PO, l tablet 20:46: Bedtime, # Bing nn 00 30 tab, 4 Refill(s), Pharmacy: [facility] #[id number], 157.48, cm, 06/21/20 13:55:00 FACE BURLER, Height, 62.727, kg, 06/21/20 14:10:00 FACE BURLER, Weight gabapentin 2019-07 Yes = 1 cap, Mem oria 300 MG Oral 2-03 PO, l Capsule 20:46: Bedtime, # Herm beto 00 30 cap, 6 Refill(s), [id number], 157.48, cm, 06/21/20 13:55:00 FACE BURLER, Height, 62.727, kg, 06/21/20 14:10:00 FACE BURLER, Weight baclofen 10 2019-07 Yes = 1 tab, Me moria mg oral 2-03 PO, l tablet 20:46: Bedtime, # Bing nn 00 30 tab, 4 Refill(s), [id number], 157.48, cm, 06/21/20 13:55:00 FACE BURLER, Height, 62.727, kg, 06/21/20 14:10:00 FACE BURLER, Weight gabapentin 2019-07 Yes = 1 cap, Mem oria 300 MG Oral 2-03 PO, l Capsule 20:46: Bedtime, # Herm beto 00 30 cap, 6 Refill(s), Pharmacy: [facility] #[id number], 157.48, cm, 06/21/20 13:55:00 FACE BURLER, Height, 62.727, kg, 06/21/20 14:10:00 FACE BURLER, Weight baclofen 2019-07 Yes = 1 tab, Me moria mg oral 2-03 PO, l tablet 20:46: Bedtime, # Bing nn 00 30 tab, 4 Refill(s), Pharmacy: [facility] #[id number], 157.48, cm, 06/21/20 13:55:00 FACE BURLER, Height, 62.727, kg, 06/21/20 14:10:00 FACE BURLER, Weight gabapentin 2019-07 Yes = 1 cap, Mem oria 300 MG Oral 2-03 PO, l Capsule 20:46: Bedtime, # Herm beto 00 30 cap, 6 Refill(s), Pharmacy: [facility] #[id number], 157.48, cm, 06/21/20 13:55:00 FACE BURLER, Height, 62.727, kg, 06/21/20 14:10:00 FACE BURLER, Weight baclofen 10 2019-07 Yes = 1 tab, Me moria mg oral 2-03 PO, l tablet 20:46: Bedtime, # Bing nn 00 30 tab, 4 Refill(s), Pharmacy: [facility] #[id number], 157.48, cm, 06/21/20 13:55:00 FACE BURLER, Height, 62.727, kg, 06/21/20 14:10:00 FACE BURLER, Weight gabapentin 2019-07 Yes = 1 cap, Mem oria 300 MG Oral 2-03 PO, l Capsule 20:46: Bedtime, # Herm beto 00 30 cap, 6 Refill(s), [id number], 157.48, cm, 06/21/20 13:55:00 FACE BURLER, Height, 62.727, kg, 06/21/20 14:10:00 FACE BURLER, Weight baclofen 10 2019-07 Yes = 1 tab, Me moria mg oral 2-03 PO, l tablet 20:46: Bedtime, # Bing nn 00 30 tab, 4 Refill(s), [id number], 157.48, cm, 06/21/20 13:55:00 FACE BURLER, Height, 62.727, kg, 06/21/20 14:10:00 FACE BURLER, Weight gabapentin 2019-07 Yes = 1 cap, Mem oria 300 MG Oral 2-03 PO, l Capsule 20:46: Bedtime, # Herm beto 00 30 cap, 6 Refill(s), [id number], 157.48, cm, 06/21/20 13:55:00 FACE BURLER, Height, 62.727, kg, 06/21/20 14:10:00 FACE BURLER, Weight baclofen 10 2019-07 Yes = 1 tab, Me moria mg oral 2-03 PO, l tablet 20:46: Bedtime, # Bing nn 00 30 tab, 4 Refill(s), [id number], 157.48, cm, 06/21/20 13:55:00 FACE BURLER, Height, 62.727, kg, 06/21/20 14:10:00 FACE BURLER, Weight gabapentin 2019-07 Yes = 1 cap, Mem oria 300 MG Oral 2-03 PO, l Capsule 20:46: Bedtime, # Herm beto 00 30 cap, 6 Refill(s), [id number], 157.48, cm, 06/21/20 13:55:00 FACE BURLER, Height, 62.727, kg, 06/21/20 14:10:00 FACE BURLER, Weight baclofen 10 2019-07 Yes = 1 tab, Me moria mg oral 2-03 PO, l tablet 20:46: Bedtime, # Bing nn 00 30 tab, 4 Refill(s), [id number], 157.48, cm, 06/21/20 13:55:00 FACE BURLER, Height, 62.727, kg, 06/21/20 14:10:00 FACE BURLER, Weight gabapentin 2019-07 Yes = 1 cap, Mem oria 300 MG Oral 2-03 PO, l Capsule 20:46: Bedtime, # Herm beto 00 30 cap, 6 Refill(s), [id number], 157.48, cm, 06/21/20 13:55:00 FACE BURLER, Height, 62.727, kg, 06/21/20 14:10:00 FACE BURLER, Weight baclofen 10 2019-07 Yes = 1 tab, Me moria mg oral 2-03 PO, l tablet 20:46: Bedtime, # Bing nn 00 30 tab, 4 Refill(s), [id number], 157.48, cm, 06/21/20 13:55:00 FACE BURLER, Height, 62.727, kg, 06/21/20 14:10:00 FACE BURLER, Weight gabapentin 2019-07 Yes = 1 cap, Mem oria 300 MG Oral 2-03 PO, l Capsule 20:46: Bedtime, # Herm beto 00 30 cap, 6 Refill(s), [id number], 157.48, cm, 06/21/20 13:55:00 FACE BURLER, Height, 62.727, kg, 06/21/20 14:10:00 FACE BURLER, Weight baclofen 10 2019-07 Yes = 1 tab, Me moria mg oral 2-03 PO, l tablet 20:46: Bedtime, # Bing nn 00 30 tab, 4 Refill(s), [id number], 157.48, cm, 06/21/20 13:55:00 FACE BURLER, Height, 62.727, kg, 06/21/20 14:10:00 FACE BURLER, Weight gabapentin 2019-07 Yes = 1 cap, Mem oria 300 MG Oral 2-03 PO, l Capsule 20:46: Bedtime, # Herm beto 00 30 cap, 6 Refill(s), Pharmacy: [facility] #[id number], 157.48, cm, 06/21/20 13:55:00 FACE BURLER, Height, 62.727, kg, 06/21/20 14:10:00 FACE BURLER, Weight baclofen 10 2019-07 Yes = 1 tab, Me moria mg oral 2-03 PO, l tablet 20:46: Bedtime, # Bing nn 00 30 tab, 4 Refill(s), [id number], 157.48, cm, 06/21/20 13:55:00 FACE BURLER, Height, 62.727, kg, 06/21/20 14:10:00 FACE BURLER, Weight spironolact 2019-07 Yes TK 1 T PO U nivers one 25 mg 2-03 BID ity of tablet 00:00: [place] [facility] spironolact 2019-07 Yes TK 1 T PO U nivers one 25 mg 2-03 BID ity of tablet 00:00: [place] [facility] spironolact 2019-07 Yes TK 1 T PO U nivers one 25 mg 2-03 BID ity of tablet 00:00: [place] [facility] spironolact 2019-07 Yes TK 1 T PO U nivers one 25 mg 2-03 BID ity of tablet 00:00: [place] [facility] spironolact 2019-07 Yes TK 1 T PO U nivers one 25 mg 2-03 BID ity of tablet 00:00: [place] [facility] spironolact 2019-07 Yes TK 1 T PO U nivers one 25 mg 2-03 BID ity of tablet 00:00: [place] [facility] baclofen 10 2019-07 Yes TK 1 T PO U nivers mg tablet 1-24 BID ity of 00:00: [place] [facility] baclofen 10 2019-07 Yes TK 1 T PO U nivers mg tablet 1-24 BID ity of 00:00: [place] [facility] baclofen 10 2019-07 Yes TK 1 T PO U nivers mg tablet 1-24 BID ity of 00:00: [place] [facility] baclofen 10 2019-07 Yes TK 1 T PO U nivers mg tablet 1-24 BID ity of 00:00: [facility] baclofen 10 2019-07 Yes TK 1 T PO U nivers mg tablet 1-24 BID ity of 00:00: [facility] baclofen 10 2019-07 Yes TK 1 T PO U nivers mg tablet 1-24 BID ity of 00:00: [facility] famotidine 2019-07 Yes TK 1 T PO Un landen 40 mg 1-23 D HS ity of tablet 00:00: [facility] famotidine 2019-07 Yes TK 1 T PO Un landen 40 mg 1-23 D HS ity of tablet 00:00: [facility] famotidine 2019-07 Yes TK 1 T PO Un landen 40 mg 1-23 D HS ity of tablet 00:00: [place] [facility] famotidine 2019-07 Yes TK 1 T PO Un landen 40 mg 1-23 D HS ity of tablet 00:00: [facility] famotidine 2019-07 Yes TK 1 T PO Un landen 40 mg 1-23 D HS ity of tablet 00:00: [facility] famotidine 2019-07 Yes TK 1 T PO Un landen 40 mg 1-23 D HS ity of tablet 00:00: [facility] lidocaine-p 2019-07 Yes Univer s [...] 2.5-2.5 % 00:00: [place] cream [facility] risperiDONE 2019-07 Yes TK 1 [...] 00:00: FOR [place] ANXIETY [facility] risperiDONE 2019- Yes TK 1 T PO U nivers 0.25 mg 1-11 BID ity of tablet 00:00: [place] [facility] LORazepam 2019- Yes TK 1 T PO Uni vers 0.5 mg 1-11 TID PRN ity of tablet 00:00: FOR [place] ANXIETY [facility] risperiDONE 2019- Yes TK [...] of tablet 00:00: [place] [facility] atorvastati 2019- Yes TK 1 T PO U nivers n 20 mg 1-03 D HS ity of tablet 00:00: [place] [address] [facility] atorvastati 2020- Yes TK 1 T PO U nivers n 20 mg 1-03 D HS ity of tablet 00:00: [place] [facility] atorvastati 2019-07 Yes TK 1 T PO U nivers n 20 mg 1-03 D HS ity of tablet 00:00: [place] [facility] atorvastati 2019-07 Yes TK 1 T PO U nivers n 20 mg 1-03 D HS ity of tablet 00:00: [place] [facility] nitrofurant 2019-07 Yes TK ONE C Un landen oin 100 mg 1-02 PO BID ity of capsule 00:00: [place] [facility] ondansetron 2019-07 Yes TK 1 T PO U nivers 4 mg tablet 1-02 Q 8 H PRF ity of 00:00: NAUSEA [facility] nitrofurant 2019-07 Yes TK ONE C Un landen oin 100 mg 1-02 PO BID ity of capsule 00:00: [place] [facility] ondansetron 2019-07 Yes TK 1 T PO U nivers 4 mg tablet 1-02 Q 8 H PRF ity of 00:00: NAUSEA [facility] nitrofurant 2019-07 Yes TK ONE C Un landen oin 100 mg 1-02 PO BID ity of capsule 00:00: [place] [facility] ondansetron 2019-07 Yes TK 1 T PO U nivers 4 mg tablet 1-02 Q 8 H PRF ity of 00:00: NAUSEA [facility] nitrofurant 2019-07 Yes TK ONE C Un landen oin 100 mg 1-02 PO BID ity of capsule 00:00: [place] [facility] ondansetron 2019-07 Yes TK 1 T PO U nivers 4 mg tablet 1-02 Q 8 H PRF ity of 00:00: NAUSEA [facility] nitrofurant 2020 Yes TK ONE C Un landen oin 100 mg 1-02 PO BID ity of capsule 00:00: [place] [facility] ondansetron 2019-07 Yes TK 1 T PO U nivers 4 mg tablet 1-02 Q 8 H PRF ity of 00:00: NAUSEA [facility] nitrofurant 2020 Yes TK ONE C Un landen oin 100 mg 1-02 PO BID ity of capsule 00:00: [facility] ondansetron 2019-07 Yes TK 1 T PO U nivers 4 mg tablet 1-02 Q 8 H PRF ity of 00:00: NAUSEA [facility] KLOR-CON 20 2019-07 Yes TK 1 Univer s mEq packet 0-30 PACKET PO ity of 00:00: QD FOR 7 00 DAYS. [facility] KLAK-CON 20 2019-07 Yes TK 1 Univer s mEq packet 0-30 PACKET PO ity of 00:00: QD FOR 7 DAYS. [facility] KLOR-CON 20 2019-07 Yes TK 1 Univer s mEq packet 0-30 PACKET PO ity of 00:00: QD FOR 7 DAYS. [facility] KLOR-CON 20 2019-07 Yes TK 1 Univer s mEq packet 0-30 PACKET PO ity of 00:00: QD FOR 7 DAYS. [facility] KLAK-CON 20 2019-07 Yes TK 1 Univer s mEq packet 0-30 PACKET PO ity of 00:00: QD FOR 7 DAYS. [facility]-CON 20 2019-07 Yes TK 1 Univer s mEq packet 0-30 PACKET PO ity of 00:00: QD FOR 7 DAYS. [facility] ciprofloxac 2019-07 Yes TK 1 T PO U nivers in HCl 250 0-25 BID ity of mg tablet 00:00: [facility] ciprofloxac 2019-07 Yes TK 1 T PO U nivers in HCl 250 0-25 BID ity of mg tablet 00:00: [facility] ciprofloxac 2019-07 Yes TK 1 T PO U nivers in HCl 250 0-25 BID ity of mg tablet 00:00: [facility] ciprofloxac 2019-07 Yes TK 1 T PO U nivers in HCl 250 0-25 BID ity of mg tablet 00:00: [facility] ciprofloxac 2019-07 Yes TK 1 T PO U nivers in HCl 250 0-25 BID ity of mg tablet 00:00: [facility] ciprofloxac 2019-07 Yes TK 1 T PO U nivers in HCl 250 0-25 BID ity of mg tablet 00:00: [facility] losartan 25 2019-07 Yes 25 mg = 1 M emoria mg oral 0-22 tab, PO, l tablet 19:15: Daily, 0 [place] 00 Refill(s) Risperidone 2019-07 Yes 0.25 mg [...] rmann 00 90 tab, 1 Refill(s) losartan 2019-07 Yes 25 mg = 1 M [...] rmann 00 90 tab, 1 Refill(s) losartan 2019-07 Yes 25 mg = 1 M emoria mg oral 0-22 tab, PO, l tablet 19:15: Daily, 0 [place] 00 Refill(s) Risperidone 2019-07 Yes 0.25 mg [...] rmann 00 90 tab, 1 Refill(s) losartan 2019-07 Yes 25 mg = 1 M [...] rmann 00 90 tab, 1 Refill(s) losartan 2019-07 Yes 25 mg = 1 M emoria mg oral 0-22 tab, PO, l tablet 19:15: Daily, 0 [place] 00 Refill(s) Risperidone 2019-07 Yes 0.25 mg = M emoria 0.25 MG 0-22 1 tab, PO, l Oral Tablet 19:15: BID, # 60 H ermann 00 tab, 0 Refill(s) spironolact 2019-07 Yes 25 mg = 1 M emoria one 25 mg 0-22 tab, PO, l oral tablet 19:15: Daily, # He rmann 00 90 tab, 1 Refill(s) losartan 2019-07 Yes 25 mg = 1 M emoria mg oral 0-22 tab, PO, l tablet 19:15: Daily, 0 [place] 00 Refill(s) Risperidone 2019-07 Yes 0.25 mg [...] rmann 00 90 tab, 1 Refill(s) losartan 2019-07 Yes 25 mg = 1 M [...] tab, PO, l tablet 19:15: Daily, 0 [place] 00 Refill(s) Risperidone 2019-07 Yes 0.25 mg [...] rmann 00 90 tab, 1 Refill(s) losartan 2019-07 Yes 25 mg = 1 M emoria mg oral 0-22 tab, PO, l tablet 19:15: Daily, 0 [place] 00 Refill(s) Risperidone 2019-07 Yes 0.25 mg [...] tab, PO, l tablet 19:15: Daily, 0 [place] 00 Refill(s) Risperidone 2019-07 Yes 0.25 mg [...] tab, PO, l tablet 19:15: Daily, 0 [place] 00 Refill(s) Risperidone 2019-07 Yes 0.25 mg [...] He rmann 00 90 tab, 1 Refill(s) LORazepam 1 2019-07 Yes Univer s mg tablet 0-14 ity of 00:00: [place] [facility] LORazepam 1 2019- Yes Univer s mg tablet 0-14 ity of 00:00: [place] [facility] LORazepam 1 2019- Yes Univer s mg tablet 0-14 ity of 00:00: [place] [facility] LORazepam 1 2019- Yes Univer s mg tablet 0-14 ity of 00:00: [place] [facility] LORazepam 1 2019- Yes Univer s mg tablet 0-14 ity of 00:00: [place] [facility] LORazepam 1 2019- Yes Univer s mg tablet 0-14 ity of 00:00: [place] [facility] levothyroxi 2020- Yes TK 1 T PO U nivers ne 112 mcg 0-11 D ity of tablet 00:00: [place] [facility] levothyroxi 2020- Yes TK 1 T PO U nivers ne 112 mcg 0-11 D ity of tablet 00:00: [place] [facility] levothyroxi 2020- Yes TK 1 T PO U nivers ne 112 mcg 0-11 D ity of tablet 00:00: [place] [facility] levothyroxi 2020- Yes TK 1 T PO U nivers ne 112 mcg 0-11 D ity of tablet 00:00: [place] [facility] levothyroxi 2020- Yes TK 1 T PO U nivers ne 112 mcg 0-11 D ity of tablet 00:00: [place] [facility] levothyroxi 2020- Yes TK 1 T PO U nivers ne 112 mcg 0-11 D ity of tablet 00:00: [place] [facility] gabapentin 2020- Yes TK 1 C PO Un landen 300 mg 0-06 HS ity of capsule 00:00: [place] [facility] gabapentin 2020- Yes TK 1 C PO Un landen 300 mg 0-06 HS ity of capsule 00:00: [place] [facility] gabapentin 2020- Yes TK 1 C PO Un landen 300 mg 0-06 HS ity of capsule 00:00: [place] [facility] gabapentin 2020- Yes TK 1 C PO Un landen 300 mg 0-06 HS ity of capsule 00:00: [place] [facility] gabapentin 2020- Yes TK 1 C PO Un landen 300 mg 0-06 HS ity of capsule 00:00: [place] [facility] gabapentin 2020- Yes TK 1 C PO Un landen 300 mg 0-06 HS ity of capsule 00:00: [place] [facility] hydrOXYzine 2019- Yes Univer s 25 mg 0-05 ity of capsule 00:00: [place] [facility] lamoTRIgine 2019- Yes Univer s 25 mg 0-05 ity of tablet 00:00: [place] [facility] losartan 25 2019- Yes Univer s mg tablet 0-05 ity of 00:00: [place] [facility] hydrOXYzine 2019- Yes Univer s 25 mg 0-05 ity of capsule 00:00: [place] [facility] lamoTRIgine 2019- Yes Univer s 25 mg 0-05 ity of tablet 00:00: [place] [address] [facility] losartan 25 2019- Yes Univer s mg tablet 0-05 ity of 00:00: [place] [address] [facility] hydrOXYzine 2019- Yes Univer s 25 mg 0-05 ity of capsule 00:00: [place] [facility] lamoTRIgine 2019- Yes Univer s 25 mg 0-05 ity of tablet 00:00: [place] [address] [facility] losartan 25 2019- Yes Univer s mg tablet 0-05 ity of 00:00: [place] [address] [facility] hydrOXYzine 2019- Yes Univer s 25 mg 0-05 ity of capsule 00:00: [place] [address] [facility] lamoTRIgine 2019- Yes Univer s 25 mg 0-05 ity of tablet 00:00: [place] [address] [facility] losartan 25 2019- Yes Univer s mg tablet 0-05 ity of 00:00: [place] [facility] hydrOXYzine 2019- Yes Univer s 25 mg 0-05 ity of capsule 00:00: [place] [address] [facility] lamoTRIgine 2020- Yes Univer s 25 mg 0-05 ity of tablet 00:00: [place] [address] [facility] losartan 25 2019- Yes Univer s mg tablet 0-05 ity of 00:00: [place] [address] [facility] hydrOXYzine 2019- Yes Univer s 25 mg 0-05 ity of capsule 00:00: [place] [address] [facility] lamoTRIgine 2020- Yes Univer s 25 mg 0-05 ity of tablet 00:00: [place] 00 [facility] losartan 25 2019-1 Yes Univer s mg tablet 0-05 ity of 00:00: [place] 00 [facility] triamterene 2020- Yes TK 1 C PO U nivers -hydrochlor 0-01 D ity of othiazide 00:00: [place] 37.5-25 mg 00 Medical per capsule Branch triamterene 2019- Yes TK 1 C PO [...] 37.5-25 mg 00 Medical per capsule Branch Acetaminoph 2020-0 Yes 1 tab, PO, Memoria [...] ermann Bitartrate 00 5 MG Oral Tablet tramadol 2020-0 Yes 50 mg = 1 Mayco marylu hydrochlori 2-27 tab, PO, l de 50 MG 22:15: Q12H, X 30 Her fleming Oral Tablet 00 day, # 60 tab, 1 Refill(s), Pharmacy: [facility] #[id number] tramadol 2020-0 Yes 50 mg = 1 Mayco marylu hydrochlori 2-27 tab, PO, l de 50 MG 22:15: Q12H, X 30 Her fleming Oral Tablet 00 day, # 60 tab, 1 Refill(s), [id number] tramadol 2020-0 Yes 50 mg = 1 Mayco marylu hydrochlori 2-27 tab, PO, l de 50 MG 22:15: Q12H, X 30 Her fleming Oral Tablet 00 day, # 60 tab, 1 Refill(s), [id number] tramadol 2020-0 Yes 50 mg = 1 Mayco marylu hydrochlori 2-27 tab, PO, l de 50 MG 22:15: Q12H, X 30 Her fleming Oral Tablet 00 day, # 60 tab, 1 Refill(s), Pharmacy: [facility] #[id number] tramadol 2020-0 Yes 50 mg = 1 Mayco marylu hydrochlori 2-27 tab, PO, l de 50 MG 22:15: Q12H, X 30 Her fleming Oral Tablet 00 day, # 60 tab, 1 Refill(s), Pharmacy: [facility] #[id number] tramadol 2020-0 Yes 50 mg = 1 Mayco marylu hydrochlori 2-27 tab, PO, l de 50 MG 22:15: Q12H, X 30 Her fleming Oral Tablet 00 day, # 60 tab, 1 Refill(s), Pharmacy: [facility] #[id number] tramadol 2020-0 Yes 50 mg = 1 Mayco marylu hydrochlori 2-27 tab, PO, l de 50 MG 22:15: Q12H, X 30 Her fleming Oral Tablet 00 day, # 60 tab, 1 Refill(s), Pharmacy: [facility] #[id number] tramadol 2020-0 Yes 50 mg = 1 Mayco marylu hydrochlori 2-27 tab, PO, l de 50 MG 22:15: Q12H, X 30 Her fleming Oral Tablet 00 day, # 60 tab, 1 Refill(s), Pharmacy: [facility] #[id number] tramadol 2020-0 Yes 50 mg = 1 Mayco marylu hydrochlori 2-27 tab, PO, l de 50 MG 22:15: Q12H, X 30 Her fleming Oral Tablet 00 day, # 60 tab, 1 Refill(s), Pharmacy: [facility] #[id number] tramadol 2020-0 Yes 50 mg = 1 Mayco marylu hydrochlori 2-27 tab, PO, l de 50 MG 22:15: Q12H, X 30 Her fle[place] Oral Tablet 00 day, # 60 tab, 1 Refill(s), [id number] tramadol 2020-0 Yes 50 mg = 1 Mayco marylu hydrochlori 2-27 tab, PO, l de 50 MG 22:15: Q12H, X 30 Her fleming Oral Tablet 00 day, # 60 tab, 1 Refill(s), [id number] tramadol 2020-0 Yes 50 mg = 1 Mayco marylu hydrochlori 2-27 tab, PO, l de 50 MG 22:15: Q12H, X 30 Her fleming Oral Tablet 00 day, # 60 tab, 1 Refill(s), [id number] tramadol 2020-0 Yes 50 mg = 1 Mayco marylu hydrochlori 2-27 tab, PO, l de 50 MG 22:15: Q12H, X 30 Her fleming Oral Tablet 00 day, # 60 tab, 1 Refill(s), [id number] tramadol 2020-0 Yes 50 mg = 1 Mayco marylu hydrochlori 2-27 tab, PO, l de 50 MG 22:15: Q12H, X 30 Her fleming Oral Tablet 00 day, # 60 tab, 1 Refill(s), [id number] tramadol 2020-0 Yes 50 mg = 1 Mayco marylu hydrochlori 2-27 tab, PO, l de 50 MG 22:15: Q12H, X 30 Her fleming Oral Tablet 00 day, # 60 tab, 1 Refill(s), [id number] tramadol 2020-0 Yes 50 mg = 1 Mayco marylu hydrochlori 2-27 tab, PO, l de 50 MG 22:15: Q12H, X 30 Her fleming Oral Tablet 00 day, # 60 tab, 1 Refill(s), [facility] #[id number] tramadol 2020-0 Yes 50 mg = 1 Mayco marylu hydrochlori 2-27 tab, PO, l de 50 MG 22:15: Q12H, X 30 Her fleming Oral Tablet 00 day, # 60 tab, 1 Refill(s), [id number] tramadol 2020-0 Yes 50 mg = 1 Mayco marylu hydrochlori 2-27 tab, PO, l de 50 MG 22:15: Q12H, X 30 Her fleming Oral Tablet 00 day, # 60 tab, 1 Refill(s), Pharmacy: [facility] #[id number] tramadol 2020-0 Yes 50 mg = 1 Mayco marylu hydrochlori 2-27 tab, PO, l de 50 MG 22:15: Q12H, X 30 Her fleming Oral Tablet 00 day, # 60 tab, 1 Refill(s), Pharmacy: [facility] #[id number] tramadol 2020-0 Yes 50 mg = 1 Mayco marylu hydrochlori 2-27 tab, PO, l de 50 MG 22:15: Q12H, X 30 Her fleming Oral Tablet 00 day, # 60 tab, 1 Refill(s), Pharmacy: [facility] #[id number] tramadol 2020-0 Yes 50 mg = 1 Mayco marylu hydrochlori 2-27 tab, PO, l de 50 MG 22:15: Q12H, X 30 Her fleming Oral Tablet 00 day, # 60 tab, 1 Refill(s), Pharmacy: [facility] #[id number] tramadol 2020-0 Yes 50 mg = 1 Mayco marylu hydrochlori 2-27 tab, PO, l de 50 MG 22:15: Q12H, X 30 Her fleming Oral Tablet 00 day, # 60 tab, 1 Refill(s), Pharmacy: [facility] #[id number] baclofen 10 2020-0 Yes 10 mg = 1 M emoria mg oral 2-11 tab, PO, l tablet 19:17: BID, # 60 Harish n 00 tab, 2 Refill(s), Pharmacy: [facility] #[id number] baclofen 10 2020-0 Yes 10 mg = 1 M emoria mg oral 2-11 tab, PO, l tablet 19:17: BID, # 60 Harish n 00 tab, 2 Refill(s), Pharmacy: [facility] #[id number] baclofen 10 2020-0 Yes 10 mg = 1 M emoria mg oral 2-11 tab, PO, l tablet 19:17: BID, # 60 Harish n 00 tab, 2 Refill(s), Pharmacy: [facility] #[id number] baclofen 10 2020-0 Yes 10 mg = 1 M emoria mg oral 2-11 tab, PO, l tablet 19:17: BID, # 60 Harish n 00 tab, 2 Refill(s), Pharmacy: [facility] #[id number] baclofen 10 2020-0 Yes 10 mg = 1 M emoria mg oral 2-11 tab, PO, l tablet 19:17: BID, # 60 Harish n 00 tab, 2 Refill(s), Pharmacy: [facility] #[id number] baclofen 10 2020-0 Yes 10 mg = 1 M emoria mg oral 2-11 tab, PO, l tablet 19:17: BID, # 60 Harish n 00 tab, 2 Refill(s), Pharmacy: [facility] #[id number] baclofen 10 2020-0 Yes 10 mg = 1 M emoria mg oral 2-11 tab, PO, l tablet 19:17: BID, # 60 Harish n 00 tab, 2 Refill(s), Pharmacy: [facility] #[id number] baclofen 10 2020-0 Yes 10 mg = 1 M emoria mg oral 2-11 tab, PO, l tablet 19:17: BID, # 60 Harish n 00 tab, 2 Refill(s), Pharmacy: [facility] #[id number] baclofen 10 2020-0 Yes 10 mg = 1 M emoria mg oral 2-11 tab, PO, l tablet 19:17: BID, # 60 Harish n 00 tab, 2 Refill(s), Pharmacy: [facility] #[id number] baclofen 10 2020-0 Yes 10 mg = 1 M emoria mg oral 2-11 tab, PO, l tablet 19:17: BID, # 60 Harish n 00 tab, 2 Refill(s), Pharmacy: [facility] #[id number] baclofen 10 2020-0 Yes 10 mg = 1 M emoria mg oral 2-11 tab, PO, l tablet 19:17: BID, # 60 Harish n 00 tab, 2 Refill(s), Pharmacy: [facility] #[id number] baclofen 10 2020-0 Yes 10 mg = 1 M emoria mg oral 2-11 tab, PO, l tablet 19:17: BID, # 60 Harish n 00 tab, 2 Refill(s), Pharmacy: [facility] #[id number] baclofen 10 2020-0 Yes 10 mg = 1 M emoria mg oral 2-11 tab, PO, l tablet 19:17: BID, # 60 Harish n 00 tab, 2 Refill(s), Pharmacy: [facility] #[id number] baclofen 10 2020-0 Yes 10 mg = 1 M emoria mg oral 2-11 tab, PO, l tablet 19:17: BID, # 60 Harish n 00 tab, 2 Refill(s), Pharmacy: [facility] #[id number] baclofen 10 2020-0 Yes 10 mg = 1 M emoria mg oral 2-11 tab, PO, l tablet 19:17: BID, # 60 Harish n 00 tab, 2 Refill(s), Pharmacy: [facility] #[id number] baclofen 10 2020-0 Yes 10 mg = 1 M emoria mg oral 2-11 tab, PO, l tablet 19:17: BID, # 60 Harish n 00 tab, 2 Refill(s), Pharmacy: [facility] #[id number] baclofen 10 2020-0 Yes 10 mg = 1 M emoria mg oral 2-11 tab, PO, l tablet 19:17: BID, # 60 Harish n 00 tab, 2 Refill(s), Pharmacy: [facility] #[id number] baclofen 10 2020-0 Yes 10 mg = 1 M emoria mg oral 2-11 tab, PO, l tablet 19:17: BID, # 60 Harish n 00 tab, 2 Refill(s), Pharmacy: [facility] #[id number] baclofen 10 2020-0 Yes 10 mg = 1 M emoria mg oral 2-11 tab, PO, l tablet 19:17: BID, # 60 Harish n 00 tab, 2 Refill(s), Pharmacy: [facility] #[id number] baclofen 10 2020-0 Yes 10 mg = 1 M emoria mg oral 2-11 tab, PO, l tablet 19:17: BID, # 60 Harish n 00 tab, 2 Refill(s), Pharmacy: [facility] #[id number] baclofen 10 2020-0 Yes 10 mg = 1 M emoria mg oral 2-11 tab, PO, l tablet 19:17: BID, # 60 Harish n 00 tab, 2 Refill(s), Pharmacy: [facility] #[id number] baclofen 10 2020-0 Yes 10 mg = 1 M emoria mg oral 2-11 tab, PO, l tablet 19:17: BID, # 60 Harish n 00 tab, 2 Refill(s), Pharmacy: [facility] #[id number] duloxetine 2020-0 No PO, 0 Memori a 1-30 Refill(s) l 21:19: [place] 00 DULoxetine 2020-0 Yes 20 mg = [...] 0 Memori a 1-30 Refill(s) l 21:19: [place] 00 DULoxetine 2020-0 Yes 20 mg = 1 Me moria 20 mg oral 1-30 cap, PO, l delayed 21:19: Daily, 0 Harish n release 00 Refill(s) capsule duloxetine 2020-0 No PO, 0 Memori a 1-30 Refill(s) l 21:19: DULoxetine 2020-0 Yes 20 mg = 1 Me moria 20 mg oral 1-30 cap, PO, l delayed 21:19: Daily, 0 Harish n release 00 Refill(s) capsule duloxetine 2020-0 No PO, 0 Memori a 1-30 Refill(s) l 21:19: DULoxetine 2020-0 Yes 20 mg = 1 [...] 0 Memori a 1-30 Refill(s) l 21:19: DULoxetine 2020-0 Yes 20 mg = 1 Me moria 20 mg oral 1-30 cap, PO, l delayed 21:19: Daily, 0 Harish n release 00 Refill(s) capsule duloxetine 2020-0 No PO, 0 Memori a 1-30 Refill(s) l 21:19: DULoxetine 2020-0 Yes 20 mg = 1 Me moria 20 mg oral 1-30 cap, PO, l delayed 21:19: Daily, 0 Harish n release 00 Refill(s) capsule duloxetine 2020-0 No PO, 0 Memori a 1-30 Refill(s) l 21:19: DULoxetine 2020-0 Yes 20 mg = 1 Me moria 20 mg oral 1-30 cap, PO, l delayed 21:19: Daily, 0 Harish n release 00 Refill(s) capsule duloxetine 2020-0 No PO, 0 Memori a 1-30 Refill(s) l 21:19: DULoxetine 2020-0 Yes 20 mg = 1 Me moria 20 mg oral 1-30 cap, PO, l delayed 21:19: Daily, 0 Harish n release 00 Refill(s) capsule duloxetine 2020-0 No PO, 0 Memori a 1-30 Refill(s) l 21:19: DULoxetine 2020-0 Yes 20 mg = 1 Me moria 20 mg oral 1-30 cap, PO, l delayed 21:19: Daily, 0 Harish n release 00 Refill(s) capsule duloxetine 2020-0 No PO, 0 Memori a 1-30 Refill(s) l 21:19: DULoxetine 2020-0 Yes 20 mg = 1 Me moria 20 mg oral 1-30 cap, PO, l delayed 21:19: Daily, 0 Harish n release 00 Refill(s) capsule duloxetine 2020-0 No PO, 0 Memori a 1-30 Refill(s) l 21:19: [place] 00 DULoxetine 2020-0 Yes 20 mg = 1 Me moria 20 mg oral 1-30 cap, PO, l delayed 21:19: Daily, 0 Harish n release 00 Refill(s) capsule duloxetine 2020-0 No PO, 0 Memori a 1-30 Refill(s) l 21:19: [place] 00 DULoxetine 2020-0 Yes 20 mg = [...] 0 Memori a 1-30 Refill(s) l 21:19: DULoxetine 2020-0 Yes 20 mg = 1 Me moria 20 mg oral 1-30 cap, PO, l delayed 21:19: Daily, 0 Harish n release 00 Refill(s) capsule duloxetine 2020-0 No PO, 0 Memori a 1-30 Refill(s) l 21:19: DULoxetine 2020-0 Yes 20 mg = 1 Me moria 20 mg oral 1-30 cap, PO, l delayed 21:19: Daily, 0 Harish n release 00 Refill(s) capsule duloxetine 2020-0 No PO, 0 Memori a 1-30 Refill(s) l 21:19: DULoxetine 2020-0 Yes 20 mg = 1 Me moria 20 mg oral 1-30 cap, PO, l delayed 21:19: Daily, 0 Harish n release 00 Refill(s) capsule duloxetine 2020-0 No PO, 0 Memori a 1-30 Refill(s) l 21:19: [place] 00 DULoxetine 2020-0 Yes 20 mg = 1 Me moria 20 mg oral 1-30 cap, PO, l delayed 21:19: Daily, 0 Harish n release 00 Refill(s) capsule duloxetine 2020-0 No PO, 0 Memori a 1-30 Refill(s) l 21:19: [place] 00 DULoxetine 2020-0 Yes 20 mg = 1 Me moria 20 mg oral 1-30 cap, PO, l delayed 21:19: Daily, 0 Harish n release 00 Refill(s) capsule duloxetine 2020-0 No PO, 0 Memori a 1-30 Refill(s) l 21:19: [place] 00 DULoxetine 2020-0 Yes 20 mg = 1 Me moria 20 mg oral 1-30 cap, PO, l delayed 21:19: Daily, 0 Harish n release 00 Refill(s) capsule duloxetine 2020-0 No See Memoria 30 Instructio l 21:02: ns, 50mg Aleksey 00 PO qd, 0 Refill(s) duloxetine 2020-0 No See Memoria 30 Instructio l 21:02: ns, 50mg Aleksey 00 PO qd, 0 Refill(s) duloxetine 2020-0 No See Memoria 30 Instructio l 21:02: ns, 50mg [place] 00 PO qd, 0 Refill(s) duloxetine 2020-0 No See Memoria 30 Instructio l 21:02: ns, 50mg [place] 00 PO qd, 0 Refill(s) duloxetine 2020-0 No See Memoria 30 Instructio l 21:02: ns, 50mg Ale[place]sey 00 PO qd, 0 Refill(s) duloxetine 2020-0 No See Memoria 30 Instructio l 21:02: ns, 50mg [place] 00 PO qd, 0 Refill(s) duloxetine 2020-0 No See Memoria 30 Instructio l 21:02: ns, 50mg [place] 00 PO qd, 0 Refill(s) duloxetine 2020-0 No See Memoria 30 Instructio l 21:02: ns, 50mg [place] 00 PO qd, 0 Refill(s) duloxetine 2020-0 No See Memoria 30 Instructio l 21:02: ns, 50mg [place] 00 PO qd, 0 Refill(s) duloxetine 2020-0 No See Memoria 30 Instructio l 21:02: ns, 50mg [place] 00 PO qd, 0 Refill(s) duloxetine 2020-0 No See Memoria 08-18 Instructio l 21:02: ns, 50mg [place] 00 PO qd, 0 Refill(s) duloxetine 2020-0 No See Memoria 08-18 Instructio l 21:02: ns, 50mg [place] 00 PO qd, 0 Refill(s) duloxetine 2020-0 No See Memoria 08-18 Instructio l 21:02: ns, 50mg [place] 00 PO qd, 0 Refill(s) duloxetine 2020-0 No See Memoria 08-18 Instructio l 21:02: ns, 50mg [place] 00 PO qd, 0 Refill(s) duloxetine 2020-0 No See Memoria 08-18 Instructio l 21:02: ns, 50mg [place] 00 PO qd, 0 Refill(s) duloxetine 2020-0 No See Memoria 08-18 Instructio l 21:02: ns, 50mg [place] 00 PO qd, 0 Refill(s) duloxetine 2020-0 No See Memoria 08-18 Instructio l 21:02: ns, 50mg [place] 00 PO qd, 0 Refill(s) duloxetine 2020-0 No See Memoria 08-18 Instructio l 21:02: ns, 50mg [place] 00 PO qd, 0 Refill(s) duloxetine 2020-0 No See Memoria 08-18 Instructio l 21:02: ns, 50mg [place] 00 PO qd, 0 Refill(s) duloxetine 2020-0 No See Memoria 08-18 Instructio l 21:02: ns, 50mg [place] 00 PO qd, 0 Refill(s) duloxetine 2020-0 No See Memoria 08-18 Instructio l 21:02: ns, 50mg [place] 00 PO qd, 0 Refill(s) duloxetine 2020-0 No See Memoria 08-18 Instructio l 21:02: ns, 50mg [place] 00 PO qd, 0 Refill(s) Lorazepam 2018-07 No See Memoria 0.5 MG Oral 09-14 Instructio l Tablet 20:32: ns, Take 1 [...] tab, PO, l tablet 20:55: TID, PRN [place] 00 Agitation, 0 Refill(s) Hydroxyzine 2018-07 Yes [...] tab, PO, l tablet 20:55: TID, PRN [place] 00 Agitation, 0 Refill(s) Hydroxyzine 2018-07 Yes [...] tab, PO, l tablet 20:55: TID, PRN [place] 00 Agitation, 0 Refill(s) Hydroxyzine 2018-07 Yes [...] tab, PO, l tablet 20:55: TID, PRN [place] 00 Agitation, 0 Refill(s) Hydroxyzine 2018-07 Yes [...] tab, PO, l tablet 20:55: TID, PRN [place] 00 Agitation, 0 Refill(s) Hydroxyzine 2018-07 Yes [...] tab, PO, l tablet 20:55: TID, PRN [place] 00 Agitation, 0 Refill(s) Hydroxyzine 2018-07 Yes [...] tab, PO, l tablet 20:55: TID, PRN [place] 00 Agitation, 0 Refill(s) Hydroxyzine 2018-07 Yes [...] tab, PO, l tablet 20:55: TID, PRN [place] 00 Agitation, 0 Refill(s) Hydroxyzine 2018-07 Yes [...] tab, PO, l tablet 20:55: TID, PRN [place] 00 Agitation, 0 Refill(s) clonazePAM 2018-07 Yes See Memoria 0.5 mg oral 2-19 Instructio l tablet 20:55: ns, 2 tabs Bing nn 00 po qam, 1 tab at noon, 1 tab qhs, 0 Refill(s) clorazepate 2018-07 Yes 7.5 mg = 1 Memoria 7.5 mg oral 2-19 tab, PO, l tablet 20:55: TID, PRN [place] 00 Agitation, 0 Refill(s) Hydroxyzine 2018-07 Yes 25 mg = 1 M emoria Hydrochlori 2-19 tab, PO, l de 25 MG 20:55: QID, PRN Bing nn Oral Tablet 00 Itching, # 40 tab, 0 Refill(s) gabapentin 2019-0 Yes 300 mg = 1 M emoria 300 MG Oral 8-15 cap, PO, l Capsule 21:14: Daily, # Harish n 00 30 cap, 6 Refill(s), Pharmacy: [facility] #[id number] gabapentin 2019-0 Yes 300 mg = 1 M emoria 300 MG Oral 8-15 cap, PO, l Capsule 21:14: Daily, # Harish n 00 30 cap, 6 Refill(s), Pharmacy: [facility] #[id number] gabapentin 2019-0 Yes 300 mg = 1 M emoria 300 MG Oral 8-15 cap, PO, l Capsule 21:14: Daily, # Harish n 00 30 cap, 6 Refill(s), Pharmacy: [facility] #[id number] gabapentin 2019-0 Yes 300 mg = 1 M emoria 300 MG Oral 8-15 cap, PO, l Capsule 21:14: Daily, # Harish n 00 30 cap, 6 Refill(s), Pharmacy: [facility] #[id number] gabapentin 2019-0 Yes 300 mg = 1 M emoria 300 MG Oral 8-15 cap, PO, l Capsule 21:14: Daily, # Harish n 00 30 cap, 6 Refill(s), Pharmacy: [facility] #[id number] gabapentin 2019-0 Yes 300 mg = 1 M emoria 300 MG Oral 8-15 cap, PO, l Capsule 21:14: Daily, # Harish n 00 30 cap, 6 Refill(s), Pharmacy: [facility] #[id number] gabapentin 2019-0 Yes 300 mg = 1 M emoria 300 MG Oral 8-15 cap, PO, l Capsule 21:14: Daily, # Harish n 00 30 cap, 6 Refill(s), [id number] gabapentin 2019-0 Yes 300 mg = 1 M emoria 300 MG Oral 8-15 cap, PO, l Capsule 21:14: Daily, # Harish n 00 30 cap, 6 Refill(s), [id number] gabapentin 2019-0 Yes 300 mg = 1 M emoria 300 MG Oral 8-15 cap, PO, l Capsule 21:14: Daily, # Harish n 00 30 cap, 6 Refill(s), Pharmacy: [facility] #[id number] gabapentin 2019-0 Yes 300 mg = 1 M emoria 300 MG Oral 8-15 cap, PO, l Capsule 21:14: Daily, # Harish n 00 30 cap, 6 Refill(s), Pharmacy: [facility] #[id number] gabapentin 2019-0 Yes 300 mg = 1 M emoria 300 MG Oral 8-15 cap, PO, l Capsule 21:14: Daily, # Harish n 00 30 cap, 6 Refill(s), Pharmacy: [facility] #[id number] gabapentin 2019-0 Yes 300 mg = 1 M emoria 300 MG Oral 8-15 cap, PO, l Capsule 21:14: Daily, # Harish n 00 30 cap, 6 Refill(s), Pharmacy: [facility] #[id number] gabapentin 2019-0 Yes 300 mg = 1 M emoria 300 MG Oral 8-15 cap, PO, l Capsule 21:14: Daily, # Harish n 00 30 cap, 6 Refill(s), Pharmacy: [facility] #[id number] gabapentin 2019-0 Yes 300 mg = 1 M emoria 300 MG Oral 8-15 cap, PO, l Capsule 21:14: Daily, # Harish n 00 30 cap, 6 Refill(s), Pharmacy: [facility] #[id number] gabapentin 2019-0 Yes 300 mg = 1 M emoria 300 MG Oral 8-15 cap, PO, l Capsule 21:14: Daily, # Harish n 00 30 cap, 6 Refill(s), Pharmacy: [facility] #[id number] gabapentin 2019-0 Yes 300 mg = 1 M emoria 300 MG Oral 8-15 cap, PO, l Capsule 21:14: Daily, # Harish n 00 30 cap, 6 Refill(s), Pharmacy: [facility] #[id number] gabapentin 2019-0 Yes 300 mg = 1 M emoria 300 MG Oral 8-15 cap, PO, l Capsule 21:14: Daily, # Harish n 00 30 cap, 6 Refill(s), [id number] gabapentin 2019-0 Yes 300 mg = 1 M emoria 300 MG Oral 8-15 cap, PO, l Capsule 21:14: Daily, # Harish n 00 30 cap, 6 Refill(s), Pharmacy: [facility] #[id number] gabapentin 2019-0 Yes 300 mg = 1 M emoria 300 MG Oral 8-15 cap, PO, l Capsule 21:14: Daily, # Harish n 00 30 cap, 6 Refill(s), Pharmacy: [facility] #[id number] gabapentin 2019-0 Yes 300 mg = 1 M emoria 300 MG Oral 8-15 cap, PO, l Capsule 21:14: Daily, # Harish n 00 30 cap, 6 Refill(s), Pharmacy: [facility] #[id number] gabapentin 2019-0 Yes 300 mg = 1 M emoria 300 MG Oral 8-15 cap, PO, l Capsule 21:14: Daily, # Harish n 00 30 cap, 6 Refill(s), Pharmacy: [facility] #[id number] gabapentin 2019-0 Yes 300 mg = 1 M emoria 300 MG Oral 8-15 cap, PO, l Capsule 21:14: Daily, # Harish n 00 30 cap, 6 Refill(s), Pharmacy: [facility] #[id number] Potassium 2019-0 Yes 10 mEq, Memor ia [...] Chloride 5-31 PO, Daily, l 20:53: 0 [place] 00 Refill(s) Potassium 2019-0 Yes 10 mEq, Memor ia Chloride 5-31 PO, Daily, l 20:53: 0 [place] 00 Refill(s) Potassium 2019-0 Yes 10 mEq, [...] Chloride 5-31 PO, Daily, l 20:53: 0 [place] 00 Refill(s) Potassium 2019-0 Yes 10 mEq, Memor ia Chloride 5-31 PO, Daily, l 20:53: 0 Ale[place] 00 Refill(s) Potassium 2019-0 Yes 10 mEq, Memor ia Chloride 5-31 PO, Daily, l 20:53: 0 [place] 00 Refill(s) Potassium 2019-0 Yes 10 mEq, Memor ia Chloride 5-31 PO, Daily, l 20:53: 0 [place] 00 Refill(s) Potassium 2019-0 Yes 10 mEq, Memor ia Chloride 5-31 PO, Daily, l 20:53: 0 [place] 00 Refill(s) Potassium 2019-0 Yes 10 mEq, Memor ia Chloride 5-31 PO, Daily, l 20:53: 0 [place] 00 Refill(s) Potassium 2019-0 Yes 10 mEq, Memor ia Chloride 5-31 PO, Daily, l 20:53: 0 [place] 00 Refill(s) Potassium 2019-0 Yes 10 mEq, Memor ia Chloride 5-31 PO, Daily, l 20:53: 0 [place] 00 Refill(s) Potassium 2019-0 Yes 10 mEq, Memor ia Chloride 5-31 PO, Daily, l 20:53: 0 [place] 00 Refill(s) 24 HR 2019-0 Yes See Memoria lamotrigine 1-11 Instructio l 50 MG 19:36: ns, 4 tab [place] Extended 00 PO Daily, Release 0 Tablet [...] mg = 2 M emoria mg oral 11 tab, PO, l tablet 19:36: BID, # 90 Harish n 00 tab, 0 Refill(s) 24 HR Yes See Memoria lamotrigine 07-30 Instructio l 50 MG 19:36: ns, 4 tab Ale[place] Extended 00 PO Daily, Release 0 Tablet Refill(s) busPIRone 5 Yes 10 mg = 2 M emoria mg oral 07-30 tab, PO, l tablet 19:36: BID, # 90 Harish n 00 tab, 0 Refill(s) 24 HR Yes See Memoria lamotrigine 07-30 Instructio l 50 MG 19:36: ns, 4 tab [place] Extended 00 PO Daily, Release 0 Tablet Refill(s) busPIRone 5 Yes 10 mg = 2 M emoria mg oral 11 tab, PO, l tablet 19:36: BID, # 90 Harish n 00 tab, 0 Refill(s) 24 HR Yes See Memoria lamotrigine 07-30 Instructio l 50 MG 19:36: ns, 4 tab [place] Extended 00 PO Daily, Release 0 Tablet Refill(s) busPIRone 5 Yes 10 mg = 2 M emoria mg oral -11 tab, PO, l tablet 19:36: BID, # 90 Harish n 00 tab, 0 Refill(s) 24 HR Yes See Memoria lamotrigine 11 Instructio l 50 MG 19:36: ns, 4 tab [place] Extended 00 PO Daily, Release 0 Tablet [...] Refill(s) 24 HR Yes See Memoria lamotrigine - Instructio l 50 MG 19:36: ns, 4 tab [place] Extended 00 PO Daily, Release 0 Tablet Refill(s) busPIRone 5 Yes 10 mg = 2 M emoria mg oral -11 tab, PO, l tablet 19:36: BID, # 90 Harish n 00 tab, 0 Refill(s) 24 HR Yes See Memoria lamotrigine -11 Instructio l 50 MG 19:36: ns, 4 tab [place] Extended 00 PO Daily, Release 0 Tablet [...] l 50 MG 19:36: ns, 4 tab [place] Extended 00 PO Daily, Release 0 Tablet Refill(s) busPIRone 5 Yes 10 mg = 2 M emoria mg oral -11 tab, PO, l tablet 19:36: BID, # 90 Harish n 00 tab, 0 Refill(s) 24 HR Yes See Memoria lamotrigine -11 Instructio l 50 MG 19:36: ns, 4 tab [place] Extended 00 PO Daily, Release 0 Tablet Refill(s) busPIRone 5 Yes 10 mg = 2 M emoria mg oral -11 tab, PO, l tablet 19:36: BID, # 90 Harish n 00 tab, 0 Refill(s) 24 HR Yes See Memoria lamotrigine 1-11 Instructio l 50 MG 19:36: ns, 4 tab [place] Extended 00 PO Daily, Release 0 Tablet Refill(s) busPIRone 5 Yes 10 mg = 2 M emoria mg oral -11 tab, PO, l tablet 19:36: BID, # 90 Harish n 00 tab, 0 Refill(s) 24 HR Yes See Memoria lamotrigine 1-11 Instructio l 50 MG 19:36: ns, 4 tab [place] Extended 00 PO Daily, Release 0 Tablet [...] 0 Memor ia 1-11 Refill(s) l 19:29: [place] 00 lamotrigine 2019-0 No 75 mg = 3 M emoria 25 MG Oral 1-11 tab, PO, l Tablet 19:29: BID, 0 Aleksey [Lamictal] 00 Refill(s) Buspar 2019-0 No PO, BID, 0 Memor ia 1-11 Refill(s) l 19:29: Ale[place]sey lamotrigine 2019-0 No 75 mg = 3 M emoria 25 MG Oral 1-11 tab, PO, l Tablet 19:29: BID, 0 [place] [Lamictal] 00 Refill(s) Buspar 0 No PO, BID, 0 Memor ia 1-11 Refill(s) l 19:29: Ale[place] lamotrigine 2019-0 No 75 mg = 3 M emoria 25 MG Oral 1-11 tab, PO, l Tablet 19:29: BID, 0 [place] [Lamictal] 00 Refill(s) Buspar 0 No PO, BID, 0 Memor ia 1-11 Refill(s) l 19:29: [place] 00 lamotrigine 2019-0 No 75 mg = 3 M emoria 25 MG Oral 1-11 tab, PO, l Tablet 19:29: BID, 0 [place] [Lamictal] 00 Refill(s) Buspar 0 No PO, BID, 0 Memor ia 1-11 Refill(s) l 19:29: [place] 00 lamotrigine 2019-0 No 75 mg = 3 M emoria 25 MG Oral 1-11 tab, PO, l Tablet 19:29: BID, 0 [place] [Lamictal] 00 Refill(s) Buspar 0 No PO, BID, 0 Memor ia 1-11 Refill(s) l 19:29: [place] 00 lamotrigine 2019-0 No 75 mg = 3 M emoria 25 MG Oral 1-11 tab, PO, l Tablet 19:29: BID, 0 [place] [Lamictal] 00 Refill(s) Buspar 0 No PO, BID, 0 Memor ia 1-11 Refill(s) l 19:29: [place] 00 lamotrigine 2019-0 No 75 mg = 3 M emoria 25 MG Oral 1-11 tab, PO, l Tablet 19:29: BID, 0 [place] [Lamictal] 00 Refill(s) Buspar 2018-0 No PO, BID, 0 Memor ia 1-11 Refill(s) l 19:29: [place] 00 lamotrigine 2019-0 No 75 mg = 3 M emoria 25 MG Oral 1-11 tab, PO, l Tablet 19:29: BID, 0 [place] [Lamictal] 00 Refill(s) Buspar 2019-0 No PO, BID, 0 Memor ia 1-11 Refill(s) l 19:29: [place] 00 lamotrigine 2019-0 No 75 mg = 3 M emoria 25 MG Oral 1-11 tab, PO, l Tablet 19:29: BID, 0 [place] [Lamictal] 00 Refill(s) Buspar 0 No PO, BID, 0 Memor ia 1-11 Refill(s) l 19:29: [place] lamotrigine 2019-0 No 75 mg = 3 M emoria 25 MG Oral 1-11 tab, PO, l Tablet 19:29: BID, 0 [place] [Lamictal] 00 Refill(s) Buspar 0 No PO, BID, 0 Memor ia 1-11 Refill(s) l 19:29: [place] lamotrigine 2019-0 No 75 mg = 3 M emoria 25 MG Oral 1-11 tab, PO, l Tablet 19:29: BID, 0 [place] [Lamictal] 00 Refill(s) Buspar 0 No PO, BID, 0 Memor ia 1-11 Refill(s) l 19:29: [place] lamotrigine 2019-0 No 75 mg = 3 M emoria 25 MG Oral 1-11 tab, PO, l Tablet 19:29: BID, 0 [place] [Lamictal] 00 Refill(s) Buspar 0 No PO, BID, 0 Memor ia 1-11 Refill(s) l 19:29: [place] 00 lamotrigine 2019-0 No 75 mg = 3 M emoria 25 MG Oral 1-11 tab, PO, l Tablet 19:29: BID, 0 [place] [Lamictal] 00 Refill(s) Buspar 0 No PO, BID, 0 Memor ia 1-11 Refill(s) l 19:29: Aleksey lamotrigine 2019-0 No 75 mg = 3 M emoria 25 MG Oral 1-11 tab, PO, l Tablet 19:29: BID, 0 [place] [Lamictal] 00 Refill(s) Buspar 20190 No PO, BID, 0 Memor ia 1-11 Refill(s) l 19:29: lamotrigine 2019-0 No 75 mg = 3 M emoria 25 MG Oral 1-11 tab, PO, l Tablet 19:29: BID, 0 [place] [Lamictal] 00 Refill(s) Buspar 0 No PO, BID, 0 Memor ia 1-11 Refill(s) l 19:29: [place] 00 lamotrigine 2019-0 No 75 mg = 3 M emoria 25 MG Oral 1-11 tab, PO, l Tablet 19:29: BID, 0 [place] [Lamictal] 00 Refill(s) Buspar 0 No PO, BID, 0 Memor ia 1-11 Refill(s) l 19:29: lamotrigine 2019-0 No 75 mg = 3 M emoria 25 MG Oral 1-11 tab, PO, l Tablet 19:29: BID, 0 Aleksey [Lamictal] 00 Refill(s) Buspar 0 No PO, BID, 0 Memor ia 1-11 Refill(s) l 19:29: lamotrigine 2019-0 No 75 mg = 3 M emoria 25 MG Oral 1-11 tab, PO, l Tablet 19:29: BID, 0 [place] [Lamictal] 00 Refill(s) Buspar 0 No PO, BID, 0 Memor ia 1-11 Refill(s) l 19:29: lamotrigine 2019-0 No 75 mg = 3 M emoria 25 MG Oral 1-11 tab, PO, l Tablet 19:29: BID, 0 [place] [Lamictal] 00 Refill(s) Buspar 0 No PO, BID, 0 Memor ia 1-11 Refill(s) l 19:29: lamotrigine 2019-0 No 75 mg = 3 M emoria 25 MG Oral 1-11 tab, PO, l Tablet 19:29: BID, 0 [place] [Lamictal] 00 Refill(s) Buspar 0 No PO, BID, 0 Memor ia 1-11 Refill(s) l 19:29: [place] 00 lamotrigine No 75 mg = 3 M emoria 25 MG Oral 1-11 tab, PO, l Tablet 19:29: BID, 0 [place] [Lamictal] 00 Refill(s) Buspar No PO, BID, 0 Memor ia -11 Refill(s) l 19:29: Ale[place] 00 lamotrigine No [...] tab, PO, l tablet 19:26: QID, 0 [place] 00 Refill(s) gabapentin 2017-07 No 100 mg [...] tab, PO, l tablet 19:26: QID, 0 [place] 00 Refill(s) gabapentin 2017-07 No 100 mg = 1 M emoria 100 MG Oral 1-30 cap, PO, l Capsule 19:26: Daily, 0 Harish n 00 Refill(s) clonazePAM 2017-07 No 0.5 mg = 1 M emoria 0.5 mg oral 1-30 tab, PO, l tablet 19:26: QID, 0 [place] 00 Refill(s) gabapentin 2017-07 No 100 mg = 1 M emoria 100 MG Oral 1-30 cap, PO, l Capsule 19:26: Daily, 0 Harish n 00 Refill(s) clonazePAM 2017-07 No 0.5 mg = 1 M emoria 0.5 mg oral 1-30 tab, PO, l tablet 19:26: QID, 0 [place] 00 Refill(s) gabapentin 2017-07 No 100 mg [...] tab, PO, l tablet 19:26: QID, 0 [place] 00 Refill(s) gabapentin 2017-07 No 100 mg = 1 M emoria 100 MG Oral 1-30 cap, PO, l Capsule 19:26: Daily, 0 Harish n 00 Refill(s) clonazePAM 2017-07 No 0.5 mg = 1 M emoria 0.5 mg oral 1-30 tab, PO, l tablet 19:26: QID, 0 [place] 00 Refill(s) gabapentin 2017-07 No 100 mg = 1 M emoria 100 MG Oral 1-30 cap, PO, l Capsule 19:26: Daily, 0 Harish n 00 Refill(s) clonazePAM 2017-07 No 0.5 mg = 1 M emoria 0.5 mg oral 1-30 tab, PO, l tablet 19:26: QID, 0 [place] 00 Refill(s) gabapentin 2017-07 No 100 mg = 1 M emoria 100 MG Oral 1-30 cap, PO, l Capsule 19:26: Daily, 0 Harish n 00 Refill(s) clonazePAM 2017-07 No 0.5 mg = 1 M emoria 0.5 mg oral 1-30 tab, PO, l tablet 19:26: QID, 0 [place] 00 Refill(s) gabapentin 2017-07 No 100 mg = 1 M emoria 100 MG Oral 1-30 cap, PO, l Capsule 19:26: Daily, 0 Harish n 00 Refill(s) clonazePAM 2017-07 No 0.5 mg = 1 M emoria 0.5 mg oral 1-30 tab, PO, l tablet 19:26: QID, 0 [place] 00 Refill(s) gabapentin 2017-07 No 100 mg [...] tab, PO, l tablet 19:26: QID, 0 [place] 00 Refill(s) gabapentin 2017-07 No 100 mg [...] tab, PO, l tablet 19:26: QID, 0 [place] 00 Refill(s) gabapentin 2017-07 No 100 mg = 1 M emoria 100 MG Oral 1-30 cap, PO, l Capsule 19:26: Daily, 0 Harish n 00 Refill(s) clonazePAM 2017-07 No 0.5 mg = 1 M emoria 0.5 mg oral 1-30 tab, PO, l tablet 19:26: QID, 0 [place] 00 Refill(s) gabapentin 2017-07 No 100 mg [...] tab, PO, l tablet 19:26: QID, 0 [place] 00 Refill(s) gabapentin 2017-07 No 100 mg = 1 M emoria 100 MG Oral 1-30 cap, PO, l Capsule 19:26: Daily, 0 Harish n 00 Refill(s) clonazePAM 2017-07 No 0.5 mg = 1 M emoria 0.5 mg oral 1-30 tab, PO, l tablet 19:26: QID, 0 [place] 00 Refill(s) gabapentin 2017-07 No 100 mg = 1 M emoria 100 MG Oral 1-30 cap, PO, l Capsule 19:26: Daily, 0 Harish n 00 Refill(s) Gabapentin Gabapentin Yes [place] 1 capsule Common [facility] Clonazepam Clonazepam Yes [place] 1 tablet Common Casi at bedtime Spiri t [facility] Fiber Fiber Yes [place] as Common Formula Formula [employer] [place] directed [facility] Fish Oil Fish Oil Yes [place] 1 capsule C ommon Casi [facility] Gabapentin Gabapentin Yes [place] 1 capsule Common [facility] Atorvastati Atorvastati Yes [place] 1 tablet Common n Calcium n Calcium [facility] Multivitami Multivitami Yes [place] as Common n n Casi directed [facility] Magnesium Magnesium Yes [place] 1 tablet Common Casi with a Spirit meal [facility] Turmeric Turmeric Yes [place] as Common Curcumin Curcumin [employer] [place] directed [facility] Probiotic Probiotic Yes [place] as Comm on Casi directed [facility] Potassium Potassium Yes [place] 1 tablet Common Bicarb-Citr Bicarb-Citr Casi Spirit ic Acid ic Acid - [facility] Levothyroxi Levothyroxi Yes [place] 1 tablet Common ne Sodium ne Sodium [place] on an Spirit empty - [facility] stomach in [facility] Super B Super B Yes [place] as Common Complex Complex [employer] [place] directed [facility] Vital Signs Vital Name Observation Time Observation Value Comments Source HEIGHT 2020-01-23 00:00:00 157.5 cm WEIGHT 2020-01-23 00:00:00 68.493 kg HEIGHT 2020-01-12 00:00:00 157.5 cm WEIGHT 2020-01-12 00:00:00 68.901 kg HEIGHT 2023-03-31 10:33:00 157.5 cm WEIGHT 2023-03-31 10:33:00 61.326 kg HEIGHT 2023-03-31 10:33:00 157.5 cm WEIGHT 2023-03-31 10:33:00 61.326 kg HEIGHT 2023-03-31 10:33:00 157.5 cm WEIGHT 2023-03-31 10:33:00 61.326 kg HEIGHT 2022-03-18 10:37:00 157.5 cm WEIGHT 2022-03-18 10:37:00 64.4 kg HEIGHT 2022-03-18 10:37:00 157.5 cm WEIGHT 2022-03-18 10:37:00 64.4 kg HEIGHT 2020-01-23 00:00:00 157.5 cm WEIGHT 2020-01-23 00:00:00 68.493 kg HEIGHT 2020-01-12 00:00:00 157.5 cm WEIGHT 2020-01-12 00:00:00 68.901 kg Systolic blood 2023-03-31 10:33:00 116 mm[Hg] [facility] Diastolic blood 2023-03-31 10:33:00 81 mm[Hg] [facility] Heart rate 2023-03-31 10:33:00 48 /min [facility] Body temperature 2023-03-31 10:33:[address] [facility] Respiratory rate 2023-03-31 10:33:00 20 /min [facility] Body height 2023-03-31 10:33:00 157.5 cm [facility] Body weight 2023-03-31 10:33:00 61.326 kg [facility] BMI 2023-03-31 10:33:00 24.73 kg/m2 [facility] Oxygen saturation in 2023-03-31 10:33:00 98 /min [facility] Arterial blood by [facility] Pulse oximetry Systolic blood 2022-03-18 15:00:00 134 mm[Hg] [facility] Diastolic blood 2022-03-18 15:00:00 73 mm[Hg] [facility] Heart rate 2022-03-18 15:00:00 57 /min [facility] Respiratory rate 2022-03-18 15:00:00 12 /min [facility] Oxygen saturation in 2022-03-18 15:00:00 98 /min [facility] Arterial blood by Medical [facility] Pulse oximetry Body temperature 2022-03-18 10:37:[address] [facility] Body height 2022-03-18 10:37:00 157.5 cm [facility] Body weight 2022-03-18 10:37:00 64.4 kg [facility] BMI 2022-03-18 10:37:00 25.97 kg/m2 [facility] Systolic (mm Hg) 2021-05-23 15:05:00 [facility] [place] Diastolic (mm Hg) 2021-05-23 15:05:00 [facility] [place] Heart Rate 2021-05-23 15:05:00 [facility] [place] Respitory Rate 2021-05-23 15:05:00 [facility] [place] Height 2021-05-23 15:05:00 157.48 cm [facility] Weight 2021-05-23 15:05:00 [facility] BMI Calculated 2021-05-23 15:05:00 [facility] [place] Diastolic (mm Hg) 2021-03-13 19:55:00 [facility] [place] Heart Rate 2021-03-13 19:55:00 [facility] [place] Respitory Rate 2021-03-13 19:55:00 [facility] [place] Height 2021-03-13 19:55:00 157.48 cm [facility] Weight 2021-03-13 19:55:00 [facility] BMI Calculated 2021-03-13 19:55:00 [facility] [place] Systolic (mm Hg) 2021-03-13 19:55:00 [facility] [place] Systolic (mm Hg) 2021-02-01 16:23:00 [facility] [place] Diastolic (mm Hg) 2021-02-01 16:23:00 [facility] [place] Heart Rate 2021-02-01 16:23:00 [facility] Respitory Rate 2021-02-01 16:23:00 [facility] [place] Systolic (mm Hg) 2021-01-09 14:27:00 [facility] [place] Diastolic (mm Hg) 2021-01-09 14:27:00 [facility] [place] Heart Rate 2021-01-09 14:27:00 [facility] [place] Respitory Rate 2021-01-09 14:27:00 [facility] Height 2021-01-09 14:27:00 157.48 cm [facility] Weight 2021-01-09 14:27:00 [facility] BMI Calculated 2021-01-09 14:27:00 [facility] Systolic (mm Hg) 2020-11-06 19:09:00 [facility] [place] Diastolic (mm Hg) 2020-11-06 19:09:00 [facility] Heart Rate 2020-11-06 19:09:00 [facility] Respitory Rate 2020-11-06 19:09:00 [facility] Weight 2020-11-06 19:09:00 [facility] Systolic (mm Hg) 2020-09-05 19:20:00 [facility] Diastolic (mm Hg) 2020-09-05 19:20:00 [facility] [place] Heart Rate 2020-09-05 19:20:00 [facility] Respitory Rate 2020-09-05 19:20:00 [facility] Height 2020-09-05 19:20:00 160.02 cm [facility] Weight 2020-09-05 19:20:00 [facility] BMI Calculated 2020-09-05 19:20:00 [facility] [place] Systolic (mm Hg) 2020-07-25 17:04:00 [facility] [place] Diastolic (mm Hg) 2020-07-25 17:04:00 [facility] Heart Rate 2020-07-25 17:04:00 [facility] Respitory Rate 2020-07-25 17:04:00 [facility] [place] Height 2020-07-25 17:04:00 157.48 cm [facility] Weight 2020-07-25 17:04:00 [facility] BMI Calculated 2020-07-25 17:04:00 [facility] Weight 2020-06-21 19:55:00 [facility] BMI Calculated 2020-06-21 19:55:00 [facility] [place] Systolic (mm Hg) 2020-06-21 19:55:00 [facility] Diastolic (mm Hg) 2020-06-21 19:55:00 [facility] [place] Heart Rate 2020-06-21 19:55:00 [facility] Respitory Rate 2020-06-21 19:55:00 [facility] Height 2020-06-21 19:55:00 157.48 cm [facility] Systolic (mm Hg) 2020-05-10 19:02:00 [facility] [place] Diastolic (mm Hg) 2020-05-10 19:02:00 [facility] [place] Heart Rate 2020-05-10 19:02:00 [facility] Respitory Rate 2020-05-10 19:02:00 [facility] Height 2020-05-10 19:02:00 157.48 cm [facility] Weight 2020-05-10 19:02:00 [facility] BMI Calculated 2020-05-10 19:02:00 [facility] Systolic (mm Hg) 2019-09-15 21:38:00 [facility] [place] Diastolic (mm Hg) 2019-09-15 21:38:00 [facility] Heart Rate 2019-09-15 21:38:00 [facility] Respitory Rate 2019-09-15 21:38:00 [facility] Height 2019-09-15 21:38:00 157.48 cm [facility] Weight 2019-09-15 21:38:00 [facility] BMI Calculated 2019-09-15 21:38:00 [facility] Systolic (mm Hg) 2019-08-18 20:52:00 [facility] Diastolic (mm Hg) 2019-08-18 20:52:00 [facility] Heart Rate 2019-08-18 20:52:00 [facility] Respitory Rate 2019-08-18 20:52:00 [facility] Height 2019-08-18 20:52:00 162.56 cm [facility] Weight 2019-08-18 20:52:00 [facility] BMI Calculated 2019-08-18 20:52:00 [facility] Systolic (mm Hg) 2019-07-22 15:23:00 [facility] [place] Diastolic (mm Hg) 2019-07-22 15:23:00 [facility] Heart Rate 2019-07-22 15:23:00 [facility] Respitory Rate 2019-07-22 15:23:00 [facility] Height 2019-07-22 15:23:00 157.48 cm [facility] Weight 2019-07-22 15:23:00 [facility] BMI Calculated 2019-07-22 15:23:00 [facility] Systolic (mm Hg) 2019-07-07 20:51:00 [facility] [place] Diastolic (mm Hg) 2019-07-07 20:51:00 [facility] [place] Heart Rate 2019-07-07 20:51:00 [facility] Respitory Rate 2019-07-07 20:51:00 [facility] Height 2019-07-07 20:51:00 157.48 cm [facility] Weight 2019-07-07 20:51:00 [facility] BMI Calculated 2019-07-07 20:51:00 [facility] Systolic (mm Hg) 2019-03-03 20:11:00 [facility] Diastolic (mm Hg) 2019-03-03 20:11:00 [facility] Heart Rate 2019-03-03 20:11:00 [facility] Respitory Rate 2019-03-03 20:11:00 [facility] Height 2019-03-03 20:11:00 157.48 cm [facility] Weight 2019-03-03 20:11:00 [facility] BMI Calculated 2019-03-03 20:11:00 [facility] Height 2019-02-02 19:56:00 160.02 cm [facility] Weight 2019-02-02 19:56:00 [facility] BMI Calculated 2019-02-02 19:56:00 [facility] Systolic (mm Hg) 2019-02-02 19:56:00 [facility] [place] Diastolic (mm Hg) 2019-02-02 19:56:00 [facility] Respitory Rate 2019-02-02 19:56:00 [facility] Heart Rate 2019-02-02 19:56:00 [facility] Height 2018-12-17 20:37:00 160.02 cm [facility] BMI Calculated 2018-12-17 20:37:00 [facility] Weight 2018-12-17 20:37:00 [facility] Systolic (mm Hg) 2018-12-17 20:37:00 [facility] [place] Diastolic (mm Hg) 2018-12-17 20:37:00 [facility] Heart Rate 2018-12-17 20:37:00 [facility] Respitory Rate 2018-12-17 20:37:00 [facility] Height 2018-07-30 19:12:00 160.02 cm [facility] BMI Calculated 2018-07-30 19:12:00 [facility] Weight 2018-07-30 19:12:00 [facility] Systolic (mm Hg) 2018-07-30 19:12:00 [facility] Diastolic (mm Hg) 2018-07-30 19:12:00 [facility] Respitory Rate 2018-07-30 19:12:00 [facility] Heart Rate 2018-07-30 19:12:00 [facility] BMI Calculated 2018-06-18 19:08:00 [facility] Height 2018-06-18 19:08:00 157.48 cm [facility] Weight 2018-06-18 19:08:00 [facility] Systolic (mm Hg) 2018-06-18 19:08:00 [facility] [place] Diastolic (mm Hg) 2018-06-18 19:08:00 [facility] [place] Heart Rate 2018-06-18 19:08:00 [facility] Respitory Rate 2018-06-18 19:08:00 [facility] Procedures Procedure Date / Time Performing Clinician Source Performed CT CHEST WITH IV 2023-03-24 08:31:53 Yen, Bird Castano [facility] CONTRAST Center CT ABDOMEN/PELVIS WITH 2023-03-24 08:31:12 YenBird [facility] IV CONTRAST Center CT ABDOMEN/PELVIS WITH 2022-08-12 09:18:00 YenBird [facility] & WITHOUT IV CONTRAST Center CT CHEST WITH IV 2022-08-12 09:18:00 YenBird [facility] CONTRAST Center IR CV ACCESS FLUORO 2022-03-18 15:21:00 Bird Yen [facility] POCT-GLUCOSE METER 2022-03-18 11:39:[address] [facility] CBC W/PLT COUNT & AUTO 2022-03-18 11:37:00 YeBird de los santos [facility] I [facility] PROTHROMBIN TIME/INR 2022-03-18 11:37:00 Yen, Casi Castano [facility] CBC W/PLT COUNT & AUTO 2022-03-18 11:37:00 Yen, Bird Castano [facility] DIFFERENTIAL Center CT ABDOMEN/PELVIS WITH 2022-02-04 11:15:00 Yen, Bird Castano [facility] & WITHOUT IV CONTRAST Center CT CHEST WITH IV 2022-02-04 11:15:00 Yen, Bird Castano [facility] CONTRAST Center CT ABDOMEN/PELVIS WITH 2021-10-29 13:15:00 Yen, Bird Castano [facility] IV CONTRAST Center CT CHEST WITH IV 2021-10-29 13:15:00 Yen, Casi [facility] CONTRAST Center CT CHEST WITH IV 2021-07-29 13:03:00 [facility]PELVIS WITH 2021-07-29 13:03:00 Yen, Bird Castano [facility] IV CONTRAST Center POCT-CREATININE 2021-07-29 12:50:00 [facility] 2021-05-03 11:22:00 Yen, Bird Castano [facility] IV CONTRAST Center CT CHEST WITH IV 2021-05-03 11:22:00 Yen, Bird [facility] CONTRAST Center POCT-CREATININE 2021-05-03 11:04:00 Yen, Bird Castano [facility] EXTERNAL PROVIDER 2020-10-05 05:01:00 [facility] BI SCREENING MAMMOGRAM 2020-07-19 18:09:33 Alec Foss [facility] BILATERAL [facility] US PELVIS COMPLETE WITH 2020-07-19 17:44:07 Alec Foss [facility] TRANSVAGINAL [facility] US HEAD NECK 2020-07-19 17:37:41 Alec Foss [facility] [place] [facility] ASSIGNMENT OF BENEFITS 2020-07-19 16:40:50 Doctor Unassigned, No [facility] Name Medical Branch ASSIGNMENT OF BENEFITS 2020-06-25 19:52:55 Doctor Unassigned, No [facility] Branch Plan of Care Planned Activity Planned Date Details Comments Source Future Scheduled 2024-03-[address] [facility] 00:[facility] (12+) [code = Tobacco Cessation Counseling and Screening (12+)] Future Scheduled 2024-03-[address] [facility] 00:00:00 [facility] Screening (12+) [code = Tobacco Cessation Counseling and Screening (12+)] Future Scheduled 2023-03-[address] [facility] 00:00:00 (Season Ended) [code = [facility] INFLUENZA VACCINE (Season Ended)] Future Scheduled 2023-03-20 Influenza Vaccine (#1) [facility]00 [code = Influenza Medical Ce nter Vaccine (#1)] Future Scheduled 2023-03-20 Influenza Vaccine (#1) [facility] 00:00:00 [code = Influenza Medical Ce nter Vaccine (#1)] Future Scheduled 2023-03-20 Influenza Vaccine (#1) [facility] 00:00:00 [code = Influenza Medical Ce nter Vaccine (#1)] Future Scheduled 2023-03-20 Influenza Vaccine (#1) [facility] 00:00:00 [code = Influenza Medical Ce nter Vaccine (#1)] Future Scheduled 2023-03-20 Influenza Vaccine (#1) [facility] 00:00:00 [code = Influenza Medical Ce nter Vaccine (#1)] Future Scheduled 2023-03-20 Influenza Vaccine (#1) [facility] 00:00:00 [code = Influenza Medical Ce nter Vaccine (#1)] Future Scheduled 2023-03-20 Influenza Vaccine (#1) [facility] 00:00:00 [code = Influenza Medical Ce nter Vaccine (#1)] Future Scheduled 2023-03-20 Influenza Vaccine (#1) [facility] 00:00:00 [code = Influenza Medical Ce nter Vaccine (#1)] Future Scheduled 2023-03-[address] [...] Cessation Counseling and Screening (12+)] Future Scheduled 2022-07-[address] [facility] 00:00:00 (12+) [code = Medical Center DEPRESSION SCREENING (12+)] Future Scheduled 2022-07-20 FALLS RISK SCREENING [facility] 00:00:00 [code = FALLS RISK Medical C enter SCREENING] Future Scheduled 2022-07-[address] [facility] 00:00:00 (12+) [code = Medical Center DEPRESSION SCREENING (12+)] Future Scheduled 2022-07-20 [address]CREENING [facility] 00:00:00 [code = FALLS RISK Medical C enter SCREENING] Future Scheduled 2022-07-[address] [facility] 00:00:00 (12+) [code = Medical Center DEPRESSION SCREENING (12+)] Future Scheduled 2022-07-20 [address]CREENING [facility] 00:00:00 [code = FALLS RISK Medical C enter SCREENING] Future Scheduled 2022-07-[address] [facility] 00:00:00 (12+) [code = Medical Center DEPRESSION SCREENING (12+)] Future Scheduled 2022-07-[address]CREENING [facility] 00:00:00 [code = FALLS RISK Medical C enter SCREENING] Future Scheduled 2022-07-[address] [facility] 00:00:00 (12+) [code = Medical Center DEPRESSION SCREENING (12+)] Future Scheduled 2022-07-20 F[address] SCREENING [facility] 00:00:00 [code = FALLS RISK Medical C enter SCREENING] Future Scheduled 2022-07-[address] [facility] 00:00:00 (12+) [code = Medical Center DEPRESSION SCREENING (12+)] Future Scheduled 2022-07-20 F[address]K SCREENING [facility] 00:00:00 [code = FALLS RISK Medical C enter SCREENING] Future Scheduled 2022-07-[address] [facility] 00:00:00 (12+) [code = Medical Center DEPRESSION SCREENING (12+)] Future Scheduled 2022-07-20 [address] SCREENING [facility] 00:00:00 [code = FALLS RISK Medical C enter SCREENING] Future Scheduled 2022-07-[address] [facility] 00:00:00 (12+) [code = Medical Center DEPRESSION SCREENING (12+)] Future Scheduled 2022-07-20 [address]ISK SCREENING [facility] 00:00:00 [code = FALLS RISK Medical C enter SCREENING] Future Scheduled 2022-07-[address] [facility] 00:00:00 (12+) [code = Medical Center DEPRESSION SCREENING (12+)] Future Scheduled 2022-07-20 F[address]K SCREENING [facility] 00:00:00 [code = FALLS RISK Medical C enter SCREENING] Future Scheduled 2022-07-[address] [facility] 00:00:00 (12+) [code = Medical Center DEPRESSION SCREENING (12+)] Future Scheduled 2022-07-20 F[address]ISK SCREENING [facility] 00:00:00 [code = FALLS RISK Medical C enter SCREENING] Future Scheduled 2022-07-[address] [facility] 00:00:00 (12+) [code = Medical Center DEPRESSION SCREENING (12+)] Future Scheduled 2022-07-20 [address]K SCREENING [facility] 00:00:00 [code = FALLS RISK Medical C enter SCREENING] Future Scheduled 2022-07-[address] [facility] 00:00:00 (12+) [code = Medical Center DEPRESSION SCREENING (12+)] Future Scheduled 2022-07-20 [address]K SCREENING [facility] 00:00:00 [code = FALLS RISK Medical C enter SCREENING] Future Scheduled 2022-07-[address] [facility] 00:00:00 (12+) [code = Medical Center DEPRESSION SCREENING (12+)] Future Scheduled 2022-07-20 F[address]ISK SCREENING [facility] 00:00:00 [code = FALLS RISK Medical C enter SCREENING] Future Scheduled 2022-03-20 INFLUENZA VACCINE (#1) C [...] Medical Ce nter VACCINE (#1)] Future Scheduled 2021-07-[address] [...] RISK Medical C enter SCREENING] Future Scheduled 2021-03-[address] [...] FIRST YEAR if no IPPE)] Future Scheduled 2010 PNEUMOCOCCAL 65+ YRS [facility] 00:00:00 (1 - PCV) [code = Medical Ce nter PNEUMOCOCCAL 65+ YRS (1 - PCV)] Future Scheduled 2010 PNEUMOCOCCAL 65+ YRS [facility] 00:00:00 (1 - PCV) [code = Medical Ce nter PNEUMOCOCCAL 65+ YRS (1 - PCV)] Future Scheduled 2010 PNEUMOCOCCAL 65+ YRS [facility] 00:00:00 (1 - PCV) [code = Medical Ce nter PNEUMOCOCCAL 65+ YRS (1 - PCV)] Future Scheduled 2010 PNEUMOCOCCAL 65+ YRS [facility] 00:00:00 (1 - PCV) [code = Medical Ce nter PNEUMOCOCCAL 65+ YRS (1 - PCV)] Future Scheduled 2010 PNEUMOCOCCAL 65+ YRS [facility] 00:00:00 (1 - PCV) [code = Medical Ce nter PNEUMOCOCCAL 65+ YRS (1 - PCV)] Future Scheduled 2010 PNEUMOCOCCAL 65+ YRS [facility] 00:00:00 (1 - PCV) [code = Medical Ce nter PNEUMOCOCCAL 65+ YRS (1 - PCV)] Future Scheduled 2010 PNEUMOCOCCAL 65+ YRS [facility] 00:00:00 (1 - PCV) [code = Medical Ce nter PNEUMOCOCCAL 65+ YRS (1 - PCV)] Future Scheduled 2010 PNEUMOCOCCAL 65+ YRS [facility] 00:00:00 (1 - PCV) [code = Medical Ce nter PNEUMOCOCCAL 65+ YRS (1 - PCV)] Future Scheduled 2010 PNEUMOCOCCAL 65+ YRS [facility] 00:00:00 (1 - PCV) [code = Medical Ce nter PNEUMOCOCCAL 65+ YRS (1 - PCV)] Future Scheduled 2010 PNEUMOCOCCAL 65+ YRS [facility] 00:00:00 (1 - PCV) [code = Medical Ce nter PNEUMOCOCCAL 65+ YRS (1 - PCV)] Future Scheduled 2010 PNEUMOCOCCAL 65+ YRS [facility] 00:00:00 (1 - PCV) [code = Medical Ce nter PNEUMOCOCCAL 65+ YRS (1 - PCV)] Future Scheduled 2010 PNEUMOCOCCAL 65+ YRS [facility] 00:00:00 (1 - PCV) [code = Medical Ce nter PNEUMOCOCCAL 65+ YRS (1 - PCV)] Future Scheduled 2010 PNEUMOCOCCAL 65+ YRS [facility] 00:00:00 (1 - PCV) [code = Medical Ce nter PNEUMOCOCCAL 65+ YRS (1 - PCV)] Future Scheduled 2010 PNEUMOCOCCAL 65+ YRS [facility] 00:00:00 (1 - PCV) [code = Medical Ce nter PNEUMOCOCCAL 65+ YRS (1 - PCV)] Future Scheduled 2010 PNEUMOCOCCAL 65+ YRS [facility] 00:00:00 (1 - PCV) [code = Medical Ce nter PNEUMOCOCCAL 65+ YRS (1 - PCV)] Future Scheduled 2010 PNEUMOCOCCAL 65+ YRS [facility] 00:00:00 (1 - PCV) [code = Medical Ce nter PNEUMOCOCCAL 65+ YRS (1 - PCV)] Future Scheduled 2010 PNEUMOCOCCAL 65+ YRS [facility] 00:00:00 (1 - PCV) [code = Medical Ce nter PNEUMOCOCCAL 65+ YRS (1 - PCV)] Future Scheduled 2010 PNEUMOCOCCAL 65+ YRS [facility] 00:00:00 (1 - PCV) [code = Medical Ce nter PNEUMOCOCCAL 65+ YRS (1 - PCV)] Future Scheduled 1995 SHINGLES VACCINES ([address] [facility] 00:00:00 of 2) [code = SHINGLES Medic al Center VACCINES (1 of 2)] Future Scheduled 1995 SHINGLES VACCINES ([address] [facility] 00:00:00 of 2) [code = SHINGLES Medic al Center VACCINES (1 of 2)] Future Scheduled 1995 SHINGLES VACCINES ([address] [facility] 00:00:00 of 2) [code = SHINGLES Medic al Center VACCINES (1 of 2)] Future Scheduled 1995 SHINGLES VACCINES ([address] [facility] 00:00:00 of 2) [code = SHINGLES Medic al Center VACCINES (1 of 2)] Future Scheduled 1995 SHINGLES VACCINES ([address] [facility] 00:00:00 of 2) [code = SHINGLES Medic al Center VACCINES (1 of 2)] Future Scheduled 1995 SHINGLES VACCINES ([address] [facility] 00:00:00 of 2) [code = SHINGLES Medic al Center VACCINES (1 of 2)] Future Scheduled 1995 SHINGLES VACCINES ([address] [facility] 00:00:00 of 2) [code = SHINGLES Medic al Center VACCINES (1 of 2)] Future Scheduled 1995 SHINGLES VACCINES ([address] [facility] 00:00:00 of 2) [code = SHINGLES Medic al Center VACCINES (1 of 2)] Future Scheduled 1995 SHINGLES VACCINES ([address] [facility] 00:00:00 of 2) [code = SHINGLES Medic al Center VACCINES (1 of 2)] Future Scheduled 1995 SHINGLES VACCINES ([address] [facility] 00:00:00 of 2) [code = SHINGLES Medic al Center VACCINES (1 of 2)] Future Scheduled 1995 SHINGLES VACCINES ([address] [facility] 00:00:00 of 2) [code = SHINGLES Medic al Center VACCINES (1 of 2)] Future Scheduled 1995 SHINGLES VACCINES ([address] [facility] 00:00:00 of 2) [code = SHINGLES Medic al Center VACCINES (1 of 2)] Future Scheduled 1995 SHINGLES VACCINES ([address] [facility] 00:00:00 of 2) [code = SHINGLES Medic al Center VACCINES (1 of 2)] Future Scheduled 1995 SHINGLES VACCINES ([address] [facility] 00:00:00 of 2) [code = SHINGLES Medic al Center VACCINES (1 of 2)] Future Scheduled 1995 SHINGLES VACCINES ([address] [facility] 00:00:00 of 2) [code = SHINGLES Medic al Center VACCINES (1 of 2)] Future Scheduled 1995 SHINGLES VACCINES ([address] [facility] 00:00:00 of 2) [code = SHINGLES Medic al Center VACCINES (1 of 2)] Future Scheduled 1995 SHINGLES VACCINES ([address] [facility] 00:00:00 of 2) [code = SHINGLES Medic al Center VACCINES (1 of 2)] Future Scheduled 1995 SHINGLES VACCINES ([address] [facility] 00:00:00 of 2) [code = SHINGLES Medic al Center VACCINES (1 of 2)] Future Scheduled [...] - Tdap)] Future Scheduled 1964 DTAP[facility]TDAP/TD [facility]:00 (1 - Tdap) [code = Medical C enter DTAP/TDAP/TD VACCINES (1 - Tdap)] Future Scheduled 1964 DTAP/TDAP/TD [facility]:00:00 (1 - Tdap) [code = Medical C enter DTAP/TDAP/TD VACCINES (1 - Tdap)] Future Scheduled 1964 DTAP/TDAP/TD [facility]:00:00 (1 - Tdap) [code = Medical C enter DTAP/TDAP/TD VACCINES (1 - Tdap)] Future Scheduled 1964 DTAP/TDAP/TD [facility]:00:00 (1 - Tdap) [code = Medical C enter DTAP/TDAP/TD VACCINES (1 - Tdap)] Future Scheduled 1964 DTAP/TDAP/TD [facility]ES [facility] 00:00:00 (1 - Tdap) [code = Medical C enter DTAP/TDAP/TD VACCINES (1 - Tdap)] Future Scheduled 1964 DTAP/TDAP/TD [facility]ES [facility] 00:00:00 (1 - Tdap) [code = Medical C enter DTAP/TDAP/TD VACCINES (1 - Tdap)] Future Scheduled 1964 DTAP/TDAP/TD [facility]00 (1 - [...] DXA [facility] 00:00:00 SCAN] [facility] Future Scheduled 1945 DXA SCAN [code = DXA [facility] 00:00:00 SCAN] [facility] Center Future Scheduled 1945 DXA SCAN [code = DXA [facility] 00:00:00 SCAN] [facility] Center Future Scheduled 1945 DXA SCAN [code = DXA [facility] 00:00:00 SCAN] [facility] Future Scheduled 1945 DXA SCAN [code = DXA [facility] 00:00:00 SCAN] [facility] Future Scheduled 1945 DXA SCAN [code = DXA [facility] 00:00:00 SCAN] [facility] Future Scheduled 1945 DXA SCAN [code = DXA [facility] 00:00:00 SCAN] [facility] Future Scheduled 1945 DXA SCAN [code = DXA [facility] 00:00:00 SCAN] [facility] Future Scheduled 1945 DXA SCAN [code = DXA [facility] 00:00:00 SCAN] [facility] Future Scheduled 1945 DXA SCAN [code = DXA [facility] 00:00:00 SCAN] [facility] Future Scheduled 1945 DXA SCAN [code = DXA [facility] 00:00:00 SCAN] [facility] Center Future Scheduled 1945 DXA SCAN [code = DXA [facility] 00:00:00 SCAN] [facility] Center Future Scheduled 1945 DXA SCAN [code = DXA [facility] 00:00:00 SCAN] [facility] Center Future Scheduled 1945 DXA SCAN [code = DXA [facility] 00:00:00 SCAN] [facility] Center Encounters Start End Encounter Admission Attending Care Care Encounter Source Date/Time Date/Time Type Type Clinicians Facility Department ID 2023-02-11 Outpatient [facility] [id number] [place] 15:58:50 [id number] Health 2023-01-14 Outpatient YAHAIRA Solomon [facility] [id number] [facility] 07:58:01 Juan R [id number] [facility] 2021-12-03 Outpatient ANGIE [facility] [id number] [place] 08:10[id number] 2021-11-28 Outpatient [facility] [id number] [place] 15:34:[id number] [facility] 2021-11-06 Outpatient BEATRIZA, [facility] [id number] [place] 09:16:[address] [facility] [id number] [facility] 2021-11-05 Outpatient BEATRIZA, [facility] [id number] [place] 07:47:43 [facility] [id number] [facility] 2021-10-30 Outpatient OKTERESEA, [facility] [id number] [place] 15:17:39 [facility] [id number] [facility] 2021-08-16 Outpatient OKTERESEA, [facility] [id number] [place] 15:22:59 Critical access hospital 2021-08-14 Outpatient YAHAIRA Solomon [facility] [id number] [facility] 11:01:33 Juan R [id number] [facility] 2021-04-23 Inpatient FLORENCE, [facility] Surgery [id number] SLE 22:51:01 VERONA 2021-04-23 Outpatient [place], [facility] Surgery [id number] [facility] 21:51:43 VERONA 2024-04-01 2024-04-01 Outpatient BIRD PALENC[facility] [id number] SLE 00:00:00 00:00:00 2023-03-31 2023-04-01 Office Keegan [facility] [id number] 10:40:00 07:54:38 Visit Merged With [facility] 2023-03-31 2023-04-01 Office Keegan [facility] [id number] 10:40:00 07:54:38 Visit Merged With [facility] 2023-03-31 2023-04-01 Outpatient MILAN [facility] [id number] SLE 10:07:31 07:54:38 YOLANDA 2023-03-24 2023-03-24 [facility] Bird Yen [facility] [id number] [id number] 07:42:10 23:59:00 Encounter [facility] 2023-03-24 2023-03-24 [facility] Bird Yen [facility] [id number] [id number] 07:42:10 23:59:00 Encounter [facility] 2023-03-24 2023-03-24 Outpatient BIRD [facility] [id number] SLE 07:42:10 23:59:00 2023-03-24 2023-03-24 Outpatient ANGIE [facility] [id number] [place] 08:00:00 08:00:00 Critical access hospital 2023-03-24 2023-03-24 [facility] Bird Yen [facility] [id number] [id number] [facility] 07:41:26 07:41:26 Encounter [facility] 2023-03-24 2023-03-24 [facility] Bird Yen [facility] [id number] [id number] [facility] 07:41:26 07:41:26 Encounter [facility] 2023-03-24 2023-03-24 Outpatient BIRD [facility] [id number] [facility] 07:41:26 07:41:26 2023-03-03 2023-03-03 Outpatient BIRD YEN [facility] [id number] [facility] 00[facility]00:00 00:00:00 2023-02-19 2023-02-19 Telephone Bird Yen [facility] [id number] [facility] 00:00:00 00:00:00 [facility] 2023-02-19 2023-02-19 Telephone Ralph YenKishore [facility] [id number] [id number] [facility] 00:00:00 00:00:00 [facility] 2023-02-17 2023-02-17 [facility] Ralph YenKishore [facility] [id number] [id number] [facility] 14:00:00 14:00:00 Encounter [facility] 2023-02-17 2023-02-17 [facility] Bird Yen [facility] [id number] [id number] [facility] 14:00:00 14:00:00 Encounter [facility] 2023-02-17 2023-02-17 Outpatient [facility] SLE [id number] SLE 00:00:00 00:00:00 2023-02-17 2023-02-17 Outpatient [facility] [id number] [facility]H 00:00:00 00:00:00 2022-09-02 2022-09-02 Historical Bird Yen [facility] [id number] [facility] 00[facility]00 Encounter [facility] 2022-09-02 2022-09-02 Orders Frances YenFarciscoa [facility] [id number] [facility] 00:[facility] 00:00:00 Only [facility] 2022-09-02 2022-09-02 Orders Rose Marie RalphKishore [facility] [id number] 00:[facility]00 00:00:00 Only [facility] 2022-09-02 2022-09-02 Historical Bird Yen [facility] [id number] [facility] 00[facility]:00 Encounter [facility] 2022-08-12 2022-08-12 [facility] Rose Marie RalphKishore [facility] [id number] [id number] [facility] 08:26:37 23:59:00 Encounter [facility] 2022-08-12 2022-08-12 [facility] Rose Marie RalphKishore [facility] [id number] [id number] 08:26:37 23:59:00 Encounter [facility] 2022-08-12 2022-08-12 Outpatient [facility] [id number] SLEH 08:26:37 23:59:00 2022-08-12 2022-08-12 Outpatient [facility] [id number] SLEH 08:26:10 08:25:00 2022-08-12 [facility] [id number] [id number] 08:00:00 08:25:00 Encounter [facility] 2022-08-12 2022-08-12 [facility] Bird Yen [facility] [id number] [facility] 08:[facility] 08:25:00 Encounter [facility] 2022-07-29 2022-07-29 Outpatient BIRD PALENCIA SLEJuanjose SLE [id number] SLEH 00:00:00 00:00:00 2022-07-29 2022-07-29 Outpatient BIRD PALENCIA SLEJuanjose SLEH [id number] SLEH 00:00:00 00:00:00 2022-07-22 2022-07-22 Outpatient [facility] [id number] [facility]H 00:00:00 00:00:00 2022-07-22 2022-07-22 Outpatient [facility] [id number] [facility]H 00:00:00 00:00:00 2022-07-21 2022-07-21 Outpatient [facility] [id number] SLEH 00:00:00 00:00:00 2022-07-21 2022-07-21 Outpatient [facility] [id number] SLEH 00:00:00 00:00:00 2022-04-30 2022-04-30 Outpatient [facility] [id number] Memoria 15:15:00 15:15:00 31 lillian Ryder 2022-04-30 2022-04-30 Outpatient DOMENIC BARAHONA [id number] Memoria 15:15:00 15:15:00 31 l Aleksey 2022-03-19 2022-03-19 Outpatient DOMENIC BARAHONA [id number] Memoria 14:30:00 14:30:00 30 l Aleksey 2022-03-19 2022-03-19 Outpatient DOMENIC BARAHONA [id number] Memoria 14:30:00 14:30:00 30 l Aleksey 2022-03-18 2022-03-18 Outpatient BIRD PALENCIAJuanjose SLEH [id number] SLEH 14:17:42 23:59:00 2022-03-18 2022-03-18 Hospital Bird Yen [facility] [id number] 11:00:00 23:59:00 Encounter [facility] 2022-03-18 2022-03-18 Surgery Virtual, [facility] [id number] [facility] 11:00:00 11:30:[address] [facility] 2022-03-18 2022-03-18 [facility] Bird Mcneil [facility] [id number] 09:02:00 11:10:00 Encounter [facility] 2022-03-18 2022-03-18 Outpatient BIRD MCNEIL Surgery [id number] SLEH 09:02:00 11:10:00 2022-02-17 2022-02-17 Outside Bird Yen [facility] [id number] 00:00[facility]00 00:00:00 Orders [facility] 2022-02-14 2022-02-14 [id number] [facility] 00:00:00 Encounter on, [facility] 2022-02-14 2022-02-14 Historical Bird Yen [facility] [id number] [facility] 00:[facility] 00:00:00 Encounter [facility] 2022-02-05 2022-02-05 Outpatient BROOKLYN BARAHONA [id number] Memoria 14:00:00 14:00:00 29 l [place] 2022-02-05 2022-02-05 Outpatient MHIE [place]OOK[place] [id number] Memoria 14:00:00 14:00:00 29 l [place] 2022-02-04 2022-02-[address] [facility] Bird Y[facility] [id number] 10:31:06 23:59:00 [facility] 2022-02-04 2022-02-04 Outpatient BIRD PALENCIA SLEJuanjose SLEH [id number] SLEH 10:31:06 23:59:00 2022-02-04 2022-02-04 Bird Berrios [facility] [id number] 10:30:58 10:30:58 [facility] 2022-02-04 2022-02-04 Outpatient [facility]IRD PALENCIA SLE SLEH [id number] SLEH 10:30:58 10:30:58 2021-12-27 2021-12-27 [facility] [id number] [facility] 00:[facility] 00:00:00 Encounter on, [facility] 2021-12-25 2021-12-25 Outpatient MHIE MHIE [id number] Memoria 14:00:00 14:00:00 28 lillian [place] 2021-12-25 2021-12-25 Outpatient MHIE MHIE [id number] Memoria 14:00:00 14:00:00 28 lillian [place] 2021-11-15 2021-11-15 Outside Bird Yen [facility] [id number] 00:00:00 00:00:00 Orders [facility] 2021-10-29 2021-10-29 [facility] Brid Yen [facility] [id number] 12:33:36 23:59:00 Encounter [facility] 2021-10-29 2021-10-29 Outpatient B[facility] PALENCIA SLE SLEH [id number] SLEH 12:33:36 23:59:00 2021-10-29 2021-10-29 [facility] Bird Yen [facility] [id number] 12:33:25 23:59:00 Encounter [facility] 2021-10-29 2021-10-29 Outpatient BIRD PALENCIA SLEH SLEH [id number] SLEH 12:33:25 23:59:00 2021-10-22 2021-10-22 Outpatient BIRD PALENCIA SLEJuanjose SLE [id number] SLEH 00:00:00 00:00:00 2021-10-22 2021-10-22 Outpatient BIRD PALENCIA SLEJuanjose SLEH [id number] SLEH 00:00:00 00:00:00 2021-09-24 2021-09-24 [facility] [id number] Memoria 10:15:00 10:15:00 27 lillian Ryder 2021-09-24 2021-09-24 [facility] [id number] Memoria 10:15:00 10:15:00 27 l Aleksey 2021-08-22 2021-08-22 Bird Cramer [facility] [id number] 00:00[facility]00 00:00:00 [facility] 2021-08-14 2021-08-14 [facility] [id number] Memoria 16:00:00 16:00:00 26 l Aleksey 2021-08-14 2021-08-14 [facility] [id number] Memoria 16:00:00 16:00:00 26 lillian Ryder 2021-07-29 2021-07-29 [facility] Bird Yen janine [facility] [id number] 12:33:58 23:59:00 [facility] 2021-07-29 2021-07-29 Outpatient BIRD PALENCIA SLEJuanjose SLE [id number] SLEH 12:33:58 23:59:00 2021-07-29 2021-07-29 [facility] Bird Palencia [facility] [id number] 12:33:51 23:59:00 [facility] 2021-07-29 2021-07-29 Outpatient BIRD PALENCIA SLEJuanjose SLE [id number] SLEH 12:33:51 23:59:00 2021-07-04 2021-07-04 Ambulatory nullFlavo MNA [id number] Memoria 20:00:00 20:00:00 Pre-Reg r Neurology 25 l Rhiannon Ryder 2021-07-04 2021-07-04 Ambulatory nullFlavo MNA [id number] Memoria 20:00:00 20:00:00 Pre-Reg r Neurology 25 l Rhiannon Ryder 2021-07-04 2021-07-04 Outpatient MHIE IE [id number] Memoria 14:00:00 14:00:00 25 l Aleksey 2021-07-04 2021-07-04 Outpatient Andres MHMISCHER MHMISCHER [id number] 14:00:00 14:00:00 Michael 25 Isaiah 2021-06-26 2021-06-26 Outpatient R ALEC FSOS [facility] [id number] Univers 14:30:00 14:30:00 [facility] 2021-05-23 2021-05-24 Outpatient nullFlavo MNA [id number] Memoria 15:15:00 04:59:59 r Neurology 24 l Rhiannon Ryder 2021-05-23 2021-05-24 Outpatient nullFlavo MNA [id number] Memoria 15:15:00 04:59:59 r Neurology 24 l Rhiannon Ryder 2021-05-23 2021-05-23 Outpatient ELMIRA CamposMISCHER MHMISCHER [id number] 10:15:00 23:59:59 Michael 24 Isaiah 2021-05-23 2021-05-23 Outpatient MHIE IE [id number] Memoria 10:15:00 10:15:00 24 l Aleksey 2021-05-10 2021-05-10 Outside Bird Yen [facility] [id number] [facility] 00:00:00 00:00:00 [facility] 2021-05-08 2021-05-08 Ambulatory nullFlavo MNA [id number] Memoria 19:15:00 19:15:00 Pre-Reg r Neurology 23 l Rhiannon Ryder 2021-05-08 2021-05-08 Ambulatory nullFlavo MNA [id number] Memoria 19:15:00 19:15:00 Pre-Reg r Neurology 23 l Rhiannon Ryder 2021-05-08 2021-05-08 Outpatient BROOKLYN BARAHONA [id number] Memoria 14:15:00 14:15:00 23 l Aleksey 2021-05-08 2021-05-08 [facility] [id number] 14:15:00 14:15:00 Micheal 23 Isaiah 2021-05-03 2021-05-03 [facility] Bird Yen [facility] [id number] [id number] 10:46:33 23:59:00 Encounter [facility] 2021-05-03 2021-05-03 Outpatient BIRD PALENCIA SLE SLE [id number] SLEH 10:46:33 23:59:00 2021-05-03 2021-05-03 [facility] Bird Palencia [facility] [id number] 10:46:26 23:59:00 Encounter [facility] 2021-05-03 2021-05-03 Outpatient [facility]ENC[facility] SLE SLE [id number] SLEH 10:46:26 23:59:00 2021-04-05 2021-04-05 [facility] Bird Yen [facility] [id number] 00:00[facility]00 00:00:00 Orders [facility] 2021-03-13 2021-03-14 Outpatient nullFlavo MNA [id number] Memoria 20:00:00 04:59:59 r Neurology 21 l Rhiannon Ryder 2021-03-13 2021-03-14 Outpatient nullFlavo MNA [id number] Memoria 20:00:00 04:59:59 r Neurology 21 l Rhiannon Smithann 2021-03-13 2021-03-13 Outpatient EVERARDO [facility]pos[facility]CARLOS [facility] [id number] 15:00:00 23:59:59 Michael 21 Isaiah 2021-03-13 2021-03-13 Outpatient BROOKLYN BARAHONA [id number] Memoria 15:00:00 15:00:00 21 lillian Ryder 2021-02-01 2021-02-02 Outpatient nullFlavo MNA [id number] Memoria 16:30:00 04:59:59 r Neurology 22 l Rhiannon Ryder 2021-02-01 2021-02-02 Outpatient nullFlavo MNA [id number] Memoria 16:30:00 04:59:59 r Neurology 22 l Rhiannon Ryder 2021-02-01 2021-02-01 Outpatient LUISA Campos [facility] [id number] 11:30:00 23:59:59 Michael 22 Isaiah 2021-02-01 2021-02-01 Outpatient MHIE DOMENIC [id number] Memoria 11:30:00 11:30:00 22 lillian Ryder 2021-01-18 2021-01-18 Outpatient BIRD YEN [facility] [id number] SLE 00:00:00 00:00:00 2021-01-18 2021-01-18 Outpatient BIRD PALENCIA [facility] [id number] SLE 00:00:00 00:00:00 2021-01-09 2021-01-10 Outpatient nullFlavo MNA [id number] Memoria 14:30:00 04:59:59 r Neurology 20 l Rhiannon Smithann 2021-01-09 2021-01-10 Outpatient nullFlavo MNA [id number] Memoria 14:30:00 04:59:59 r Neurology 20 l Rhiannon Smithann 2021-01-09 2021-01-09 Outpatient LUISA Campos [facility] [id number] 09:30:00 23:59:59 Michael 20 Isaiah 2021-01-09 2021-01-09 Outpatient MHIE DOMENIC [id number] Memoria 09:30:00 09:30:00 20 lillian Ryder 2020-12-18 2020-12-18 Outpatient BIRD PALENCIA [facility] [id number] SLE 00:00:00 00:00:00 2020-12-18 2020-12-18 Outpatient BIRD YEN [facility] [id number] SLE 00:00:00 00:00:00 2020-12-18 2020-12-18 Outpatient BIRD PALENCIA [facility] [id number] SLE 00:00:00 00:00:00 2020-11-06 2020-11-07 Outpatient nullFlavo MNA [id number] Memoria 19:15:00 04:59:59 r Neurology 19 l Rhiannon Ryder 2020-11-06 2020-11-07 Outpatient nullFlavo MNA [id number] Memoria 19:15:00 04:59:59 r Neurology 19 l Rhiannon Ryder 2020-11-06 2020-11-06 Outpatient Andres, MISCHER [facility] [id number] 14:15:00 23:59:59 Michael Rodolfo Colon 2020-11-06 2020-11-06 Outpatient ELMIRAIE [facility] [id number] Memoria 14:15:00 14:15:00 19 l Aleksey 2020-10-05 2020-10-05 Orders Doctor MANNY Bustos2.840.114 [id number] [facility] 00:00:00 00:00:00 Only Unassigned, JORGE LUIS [id number] ity of [place] [facility] 4.2.7.2.686 Jan as [phone] [address] 2020-10-05 2020-10-05 Orders Doctor MANNY Bustos2.840.114 [id number] 00:00:00 00:00:00 Only Unassigned, JORGE LUIS [id number] [place] [facility] 4.2.7.2.686 [phone] [facility] 2020-10-04 2020-10-04 Outpatient BIRD PALENCIA [facility] [id number] SLE 00:00:00 00:00:00 2020-10-04 2020-10-04 Outpatient BIRD YEN [facility] [id number] SLE 00:00:00 00:00:00 2020-09-24 2020-09-26 Outside nullFlavo MNA [id number] Memoria 16:19:27 05:59:59 Medical r Neurology 04 l Records Rhiannon Ryder 2020-09-24 2020-09-26 Outside nullFlavo MNA [id number] Memoria 16:19:27 05:59:59 Medical r Neurology 04 l Records Rhiannon Ryder 2020-09-24 2020-09-25 Outpatient [facility] [id number] 10:19:27 23:59:59 04 2020-09-11 2020-09-13 Outside nullFlavo MNA [id number] Memoria 20:49:36 05:59:59 Medical r Neurology 03 l Records Rhiannon Ryder 2020-09-11 2020-09-13 Outside nullFlavo MNA [id number] Memoria 20:49:36 05:59:59 Medical r Neurology 03 l Records Rhiannon Ryder 2020-09-11 2020-09-12 Outpatient [facility] [id number] 14:49:36 23:59:59 03 2020-09-05 2020-09-06 Outpatient nullFlavo MNA [id number] Memoria 19:15:00 05:59:59 r Neurology 18 l Rhiannon Ryder 2020-09-05 2020-09-06 Outpatient nullFlavo MNA [id number] Memoria 19:15:00 05:59:59 r Neurology 18 l Rhiannon Smithann 2020-09-05 2020-09-05 Outpatient Andres YANCY [facility] [id number] 13:15:00 23:59:59 Michael 18 Isaiah 2020-09-05 2020-09-05 Ambulatory nullFlavo MNA [id number] Memoria 19:15:00 19:15:00 Pre-Reg r Neurology 17 l Rhiannon Ryder 2020-09-05 2020-09-05 Ambulatory nullFlavo MNA [id number] Memoria 19:15:00 19:15:00 Pre-Reg r Neurology 17 l Rhiannon Smithann 2020-09-05 2020-09-05 Outpatient MHIE IE [id number] Memoria 13:15:00 13:15:00 18 lillian Ryder 2020-09-05 2020-09-05 Outpatient MHIE IE [id number] Memoria 13:15:00 13:15:00 17 lillian SmithAleksey 2020-09-05 2020-09-05 Outpatient Krell, MHMISCHER MHMISCHER [id number] 13:15:00 13:15:00 Michaelkamari Colon 2020-08-07 2020-08-09 Outside nullFlavo MNA [id number] Memoria 17:59:06 05:59:59 Medical r Neurology 02 l Records Rhiannon Ryder 2020-08-07 2020-08-09 Outside nullFlavo MNA [id number] Memoria 17:59:06 05:59:59 Medical r Neurology 02 l Records Rhiannon Ryder 2020-08-07 2020-08-08 Outpatient MHMISCHER MHMISCHER [id number] 11:59:06 23:59:59 02 2020-08-03 2020-08-03 Continuous Miner 2, [facility] 1.2.840.114 [id number] [facility] 13:07:52 13:22:52 [facility]c Foss [id number] [phone] Mn dical [address] 2020-08-03 2020-08-03 Continuous Miner 2, [facility] [place] 1.2.840.114 [id number] 13:07:52 13:22:52 Visit [place] 350.1.13.10 [place] 4.2.7.2.686 Professio [phone] [address] 2020-08-03 2020-08-03 Outpatient R ALEC FOSS [facility] [id number] [facility] 13:00:00 13:00:00 ity [facility] 2020-07-25 2020-07-26 Outpatient nullFlavo MNA [id number] Memoria 17:15:00 05:59:59 r Neurology 16 l Rhiannon Ryder 2020-07-25 2020-07-26 Outpatient nullFlavo MNA [id number] Memoria 17:15:00 05:59:59 r Neurology 16 l Rhiannon Ryder 2020-07-25 2020-07-25 Outpatient Medardoyvonne, MHMISCHER MHMISCHER [id number] 11:15:00 23:59:59 Michael Argentina Colon 2020-07-25 2020-07-25 Outpatient [facility] IE [id number]:15[facility]00 11:15:00 16 l Aleksey 2020-07-19 2020-07-19 [facility] Alec Foss [facility] 1.2.840.114 [id number] [facility] 10:46:59 23:59:00 Encounter [place] 350.1.13.10 ity of [place] 4.2.7.2.686 [facility] [phone] [facility] [address] 2020-07-19 2020-07-19 [facility] Alec Foss [facility] 1.2.840.114 [id number] 10:46:59 23:59:00 Encounter [place] 350.1.13.[address] [place] [address] [place] [address] [phone] [facility] 2020-07-19 2020-07-19 [facility] Alec Foss [facility] 1.2.840.114 [id number] [facility] 10:45:33 10:45:33 Encounter [place] [id number] ity of [place] 4.2.7.2.[address] [place] [address] [phone] [facility] [address] 2020-07-19 2020-07-19 [facility] Alec Foss [facility] 1.2.840.114 [id number] 10:45:33 10:45:33 Encounter [place] 350.1.13.10 [place] [address] [place] [address] [phone] [facility] 2020-07-19 2020-07-19 [facility] Alec Foss [facility] 1.2.840.114 [id number] [facility] 10:45:01 10:45:01 Encounter [place] [id number] ity of [place] 4.2.7.[address] [place] [address] [phone] [facility] [address] 2020-07-19 2020-07-19 [facility] Alec Foss [facility] 1.2.840.114 [id number] 10:45:01 10:45:01 Encounter [place] 350.1.13.10 [place] [address] [place] [address] [phone] [facility] 2020-07-19 2020-07-19 Outpatient R ALEC FOSS [facility] [id number] Univers 00:00:00 00:00:00 ity of [facility] 2020-07-19 2020-07-19 Orders Doctor MANNY Dey.2.840.114 [id number] Univers 00:00:00 00:00:00 Only Unassigned, JORGE LUIS 350.1.13.10 ity of [place] [facility] 4.2.7.2.686 Jan as [phone] [address] 2020-07-19 2020-07-19 Orders Doctor MANNY Dey.2.840.114 [id number] 00:00:00 00:00:00 Only Unassigned, JORGE LUIS 350.1.13.10 [place] [facility] 4.2.7.2.686 [id number] 2020-07-17 2020-07-17 Outpatient BIRD YEN [facility] [id number] SLE 00:00:00 00:00:00 2020-07-17 2020-07-17 Outpatient EL BIRD YEN [facility] [id number] SLE 00:00:00 00:00:00 2020-06-25 2020-06-25 Outpatient Bartolo FOSS ALEC [facility] [id number] Univers 14:00:00 14:00:00 ity of [facility] 2020-06-25 2020-06-25 Orders Doctor MANNY Dey.2.840.114 [id number] Univers 00:00:00 00:00:00 Only Unassigned, JORGE LUIS 350.1.13.10 ity of [place] [facility] 4.2.7.2.686 Jan as [phone] [address] 2020-06-25 2020-06-25 Orders Doctor MANNY Dey.2.840.114 [id number] 00:00:00 00:00:00 Only Unassigned, JORGE LUIS 350.1.13.10 [place] [facility] 4.2.7.2.686 [id number] 2020-06-21 2020-06-22 Outpatient nullFlavo MNA [id number] Memoria 19:45:00 05:59:59 r Neurology 15 l Dania Aleksey 2020-06-21 2020-06-22 Outpatient nullFlavo MNA [id number] Memoria 19:45:00 05:59:59 r Neurology 15 l Dania Aleksey 2020-06-21 2020-06-21 Outpatient ELMIRA [facility]ISCHER [facility] [id number] 13:45:00 23:59:59 Michael 15 Isaiah 2020-06-21 2020-06-21 Outpatient MHIE MHIE [id number] Memoria 13:45:00 13:45:00 15 l Aleksey 2020-05-10 2020-05-11 Outpatient nullFlavo MNA [id number] Memoria 18:45:00 04:59:59 r Neurology 14 l Rhiannon Ryder 2020-05-10 2020-05-11 Outpatient nullFlavo MNA [id number] Memoria 18:45:00 04:59:59 r Neurology 14 l Rhiannon Ryder 2020-05-10 2020-05-10 Outpatient Andres MISCHER MISCHER [id number] 13:45:00 23:59:59 Michael 14 Isaiah 2020-05-10 2020-05-10 Outpatient MHIE MHIE [id number] Memoria 13:45:00 13:45:00 14 l Aleksey 2020-04-25 2020-04-25 Outpatient YEN, FRANCES-KISHORE [facility] SLE[facility] [id number] [facility]H 00:00:00 00:00:00 2020-04-25 2020-04-25 Outpatient EL YEN, FRANCES-KISHORE [facility]H [id number] SLEH 00:00:00 00:00:00 2020-04-05 2020-04-05 Outpatient YEN, AI-KISHORE [facility] [id number] SLEH 00:00:00 00:00:00 2020-04-05 2020-04-05 Outpatient EL YEN, AI-KISHORE [facility] [id number] SLEH 00:00:00 00:00:00 2020-03-27 2020-03-27 Outpatient YEN, AI-KISHORE [facility] SLE[facility] [id number] SLEH 00:00:00 00:00:00 2020-03-27 2020-03-27 Outpatient EL YEN, AI-KISHORE [facility] [id number] SLEH 00:00:00 00:00:00 2020-03-27 2020-03-27 Outpatient EL YEN, AI-KISHORE [facility] SLEH [id number] SLEH 00:00:00 00:00:00 2020-03-27 2020-03-27 Outpatient BIRD YEN SLE SLE [id number] SLEH 00:00:00 00:00:00 2020-01-27 2020-01-27 Outpatient EL SLEH SLE [id number] SLEH 00:00:00 00:00:00 2020-01-17 2020-01-17 Outpatient EL SLEH SLE [id number] SLEH 00:00:00 00:00:00 2019-12-27 2019-12-27 Outpatient BIRD YEN SLE SLE [id number] SLEH 00:00:00 00:00:00 2019-12-27 2019-12-27 Outpatient EL BIRD YEN SLE SLE [id number] SLEH 00:00:00 00:00:00 2019-11-28 2019-11-30 Outside nullFlavo MNA [id number] Memoria 13:59:25 04:59:59 Medical r Neurology 01 l Records Dania Aleksey 2019-11-28 2019-11-30 Outside nullFlavo MNA [id number] Memoria 13:59:25 04:59:59 Medical r Neurology 01 l Records Dania [place] 2019-11-28 2019-11-29 Outpatient MHMISCHER MHMISCHER [id number] 08:59:25 23:59:59 01 2019-11-01 2019-11-01 Outpatient SLEH SLEH [id number] SLEH 00:00:00 00:00:00 [id number] 2019-10-27 2019-10-27 Outpatient SLEH SLEH [id number] [id number] SLEH 12:42:06 23:59:00 [id number] 2019-10-21 2019-10-21 Outpatient [facility] [id number] Common 10:33:00 10:33:00 t Specialty/U Sp viridiana Specialty rology - [facility] 2019-10-19 2019-10-20 Outpatient nullFlavo MNA [id number] Memoria 20:30:00 04:59:59 r Neurology 13 l Dania [place] 2019-10-19 2019-10-20 Outpatient nullFlavo MNA [id number] Memoria 20:30:00 04:59:59 r Neurology 13 l Rhiannon Ryder 2019-10-19 2019-10-19 Outpatient [facility]ARD[facility] [id number] 15:30:00 23:59:59 Michael 13 Isaiah 2019-10-19 2019-10-19 Outpatient MHIE MHIE [id number] Memoria 15:30:00 15:30:00 13 lillian Ryder 2019-10-14 2019-10-14 Outpatient SLEH SLEH [id number] [id number] [facility] 06:14:00 06:14:00 [id number] 2019-10-12 2019-10-12 Outpatient SLEH SLEH [id number] [id number] [facility] 00:00:00 00:00:00 [id number] 2019-10-10 2019-10-10 Outpatient SLEH SLEH [id number] [id number] [facility] 00:00:00 00:00:00 [id number] 2019-09-21 2019-09-21 Out[facility] [id number] Common 15:44:00 15:44:00 t Specialty/U Sp viridiana Specialty rology - [facility] 2019-09-15 2019-09-16 Outpatient nullFlavo MNA [id number] Memoria 22:00:00 05:59:59 r Neurology 12 l Dania Aleksey 2019-09-15 2019-09-16 Outpatient nullFlavo MNA [id number] Memoria 22:00:00 05:59:59 r Neurology 12 l Dania [place] 2019-09-15 2019-09-15 [facility] [id number] 16:00:00 23:59:59 Michael Gali Colon 2019-09-15 2019-09-15 Outpatient MHIE MHIE [id number] Memoria 16:00:00 16:00:00 12 lillian Aleksey 2019-09-13 2019-09-13 Outpatient [facility] [id number] Common 13:15:00 13:15:00 t Specialty/U Sp viridiana Specialty rology - [facility] 2019-08-18 2019-08-19 Outpatient nullFlavo MNA [id number] Memoria 20:45:00 05:59:59 r Neurology 10 l Dania Aleksey 2019-08-18 2019-08-19 Outpatient nullFlavo MNA [id number] Memoria 20:45:00 05:59:59 r Neurology 10 lillian Ryder 2019-08-18 2019-08-18 [facility] [id number] 14:45:00 23:59:59 Michael 10 Isaiah 2019-08-18 2019-08-18 Outpatient MHIE MHIE [id number] Memoria 14:45:00 14:45:00 10 lillian Ryder 2019-07-22 2019-07-23 Outpatient nullFlavo MNA [id number] Memoria 15:15:00 05:59:59 r Neurology 11 lillian Jurado [place] 2019-07-22 2019-07-23 Outpatient nullFlavo MNA [id number] Memoria 15:15:00 05:59:59 r Neurology 11 lillian Jurado Aleksey 2019-07-22 2019-07-22 [id number] 09:15:00 23:59:59 Michael 11 Isaiah 2019-07-22 2019-07-22 Outpatient MHIE MHIE [id number] Memoria 09:15:00 09:15:00 11 lillian [place] 2019-07-07 2019-07-08 Outpatient nullFlavo MNA [id number] Memoria 20:45:00 05:59:59 r Neurology 09 lillian Jurado [place] 2019-07-07 2019-07-08 Outpatient nullFlavo MNA [id number] Memoria 20:45:00 05:59:59 r Neurology 09 lillian Jurado [place] 2019-07-07 2019-07-07 [facility] [id number] 14:45:00 23:59:59 Michael 09 Isaiah 2019-07-07 2019-07-07 Outpatient MHIE MHIE [id number] Memoria 14:45:00 14:45:00 09 lillain [place] 2019-03-03 2019-03-04 Outpatient nullFlavo MNA [id number] Memoria 20:15:00 04:59:59 r Neurology 08 lillian Jurado [place] 2019-03-03 2019-03-04 Outpatient nullFlavo MNA [id number] Memoria 20:15:00 04:59:59 r Neurology 08 lillian Ryder 2019-03-03 2019-03-03 [facility] [id number] 15:15:00 23:59:59 Michael Brooke Colon 2019-03-03 2019-03-03 Outpatient MHIE MHIE [id number] Memoria 15:15:00 15:15:00 08 lillian [place] 2019-02-02 2019-02-03 Outpatient nullFlavo MNA [id number] Memoria 20:15:00 04:59:59 r Neurology 07 lillian Jurado [place] 2019-02-02 2019-02-03 Outpatient nullFlavo MNA [id number] Memoria 20:15:00 04:59:59 r Neurology 07 lillian Jurado Aleksey 2019-02-02 2019-02-02 [facility] [id number] 15:15:00 23:59:59 Michael Monalisa Isaiah 2019-02-02 2019-02-02 Outpatient MHIE MHIE [id number] Memoria 15:15:00 15:15:00 07 lillian [place] 2018-12-17 2018-12-18 Outpatient nullFlavo MNA [id number] Memoria 20:30:00 04:59:59 r Neurology 06 lillian Jurado [place] 2018-12-17 2018-12-18 Outpatient nullFlavo MNA [id number] Memoria 20:30:00 04:59:59 r Neurology 06 lillian Dania [place] 2018-12-17 2018-12-17 [facility] [id number] 15:30:00 23:59:59 Michael Garrison Isaiah 2018-12-17 2018-12-17 Outpatient MHIE MHIE [id number] Memoria 15:30:00 15:30:00 06 lillian [place] 2018-12-03 2018-12-03 Ambulatory nullFlavo MNA [id number] Memoria 18:30:00 18:30:00 Pre-Reg r Neurology 05 lillian Dania [place] 2018-12-03 2018-12-03 Ambulatory nullFlavo MNA [id number] Memoria 18:30:00 18:30:00 Pre-Reg r Neurology 05 lillian Dania [place] 2018-12-03 2018-12-03 Outpatient MHIE MHIE [id number] Memoria 13:30:00 13:30:00 05 lillian Ryder 2018-12-03 2018-12-03 Outpatient EVERARDO [facility]posSCHER [facility] [id number] 13:30:00 13:30:00 Michael Juanis Colon 2018-07-30 2018-07-31 Outpatient nullFlavo MNA [id number] Memoria 19:00:00 05:59:59 r Neurology 04 lillian Ryder 2018-07-30 2018-07-31 Outpatient nullFlavo MNA [id number] Memoria 19:00:00 05:59:59 r Neurology 04 lillian Ryder 2018-07-30 2018-07-30 Outpatient ELMIRA CamposNYSCHER [facility] [id number] 13:00:00 23:59:59 Michael Connie Colon 2018-07-30 2018-07-30 Outpatient MHIE MHIE [id number] Memoria 13:00:00 13:00:00 04 lillian Ryder 2018-07-08 2018-07-10 Phone nullFlavo MNA [id number] Memoria 16:46:00 05:59:59 Message r Neurology 00 l Rhiannon Ryder 2018-07-08 2018-07-10 Phone nullFlavo MNA [id number] Memoria 16:46:00 05:59:59 Message r Neurology 00 l Rhiannon Ryder 2018-07-08 2018-07-09 Outpatient MHMISCHER MHNYSCHER [id number] 10:46:00 23:59:59 2018-06-18 2018-06-19 Outpatient nullFlavo MNA [id number] Memoria 19:15:00 05:59:59 r Neurology 03 lillian Ryder 2018-06-18 2018-06-19 Outpatient nullFlavo MNA [id number] Memoria 19:15:00 05:59:59 r Neurology 03 lillian Ryder 2018-06-18 2018-06-18 Outpatient ELMIRA CamposNYSCHER [facility] [id number] 13:15:00 23:59:59 Michael Jessica Colon 2018-06-18 2018-06-18 Outpatient MHIE MHIE [id number] Memoria 13:15:00 13:15:00 03 lillian Ryder 2018-04-01 2018-04-01 Outpatient DOMENIC DOMENIC [id number] Memoria 14:15:00 14:15:00 02 lillian Ryder 2018-04-01 2018-04-01 Outpatient DOMENIC DOMENIC [id number] Memoria 14:15:00 14:15:00 02 lillian Ryder 2017-12-31 2017-12-31 Outpatient DOMENIC DOMENIC [id number] Memoria 13:15:00 13:15:00 01 lillian Ryder 2017-12-31 2017-12-31 Outpatient DOMENIC DOMENIC [id number] Memoria 13:15:00 13:15:00 01 lillian Ryder 2017-09-01 2017-09-01 Outpatient DOMENIC DOMENIC [id number] Memoria 13:15:00 13:15:00 00 lillian Ryder 2017-09-01 2017-09-01 [facility] [id number] Memoria 13:15:00 13:15:00 00 lillian Ryder Results Test Description Test Test Comments Results Result Sour e Time Comments CT 2023-03- ABDOMEN/PELVIS 05 WITH IV CONTRAST 12:31:06 [facility] ALEXANDRIA MERCADO : 1945 Sex: F CT of the chest, abdomen and pelvis, with contrastClinical History: Bladder cancerTechnique: CT of the chest, abdomen and pelvis is performed withintravenous contrast administration. This exam was performed accordingto our departmental dose optimization program which includes automatedexposure control, adjustment of the mA and/or kV according to patient'ssize and/or use of iterative reconstructive technique.Comparison Film: August 12, 2022, February 04, 2022, October 292Discussion:No supraclavicular, axillary, mediastinal or hilar lymphadenopathy.Heart is borderline in size, no pericardial effusion. Thyroid gland isenlarged.There is no mass or consolidation in the lung. No new pulmonary nodule.A small cluster of micronodules in the right upper lobe is stable,probably reflecting small airways disease. No effusion. Central airwaysare patent, no bronchiectasis or bronchial wall thickening.No liver mass is identified. No biliary ductal dilatation. There arestones within the gallbladder.The spleen, pancreas, and adrenal glands are normal.Kidneys demonstrate no mass, or radiopaque stone. Mild bilateralhydronephrosis is unchanged. There is mild bilateral renal corticalscarring.Status post cystectomy and hysterectomy. There is a [place] pouch. Mildpouch wall thickening is similar to the prior studies.No bowel obstruction, or abnormal bowel wall thickening. There is mildfecal impaction in the rectum. No pericolonic, or mesenteric edema.There is no adnexal mass. Pelvic sidewall surgical clips are noted. Nolymphadenopathy. No ascites. Bony structures demonstrate degenerativechanges. Stable sclerotic focus in the right femoral neck probablyrepresents a bone island. No new or suspicious bony lesion isidentified.IMPRESSION:Imp ression:Stable exam, no new disease is identified in the chest, abdomen orpelvis.Persistent wall thickening of the [place] pouch.Cholelithiasis. Electronically Signed By: Beto [facility]03/24/2023 12:33 CDTWorkstation Name: [id number] CT CHEST WITH IV 2023-03- CONTRAST 05 12:31:06 [facility] AL : 1945 Sex: F CT of the chest, abdomen and pelvis, with contrastClinical History: Bladder cancerTechnique: CT of the chest, abdomen and pelvis is performed withintravenous contrast administration. This exam was performed accordingto our departmental dose optimization program which includes automatedexposure control, adjustment of the mA and/or kV according to patient'ssize and/or use of iterative reconstructive technique.Comparison Film: August 12, 2022, February 04, 2022, October 29iscussion:No supraclavicular, axillary, mediastinal or hilar lymphadenopathy.Heart is borderline in size, no pericardial effusion. Thyroid gland isenlarged.There is no mass or consolidation in the lung. No new pulmonary nodule.A small cluster of micronodules in the right upper lobe is stable,probably reflecting small airways disease. No effusion. Central airwaysare patent, no bronchiectasis or bronchial wall thickening.No liver mass is identified. No biliary ductal dilatation. There arestones within the gallbladder.The spleen, pancreas, and adrenal glands are normal.Kidneys demonstrate no mass, or radiopaque stone. Mild bilateralhydronephrosis is unchanged. There is mild bilateral renal corticalscarring.Status post cystectomy and hysterectomy. There is a [place] pouch. Mildpouch wall thickening is similar to the prior studies.No bowel obstruction, or abnormal bowel wall thickening. There is mildfecal impaction in the rectum. No pericolonic, or mesenteric edema.There is no adnexal mass. Pelvic sidewall surgical clips are noted. Nolymphadenopathy. No ascites. Bony structures demonstrate degenerativechanges. Stable sclerotic focus in the right femoral neck probablyrepresents a bone island. No new or suspicious bony lesion isidentified.IMPRESSION:Imp ression:Stable exam, no new disease is identified in the chest, abdomen orpelvis.Persistent wall thickening of the [place] pouch.Cholelithiasis. Electronically Signed By: Beto Bianchi03/24/2023 12:33 CDTWorkstation Name: [id number] CT, CHEST, WITH 2022-07- Unlisted Reason * IV CONTRAST 24 for Exam - 12:52:[address] Yes [address] [facility] Below->Yes ALEXANDRIA MERCADO Unlisted Reason AL : 1945 for Sex: Exam->Malignant F neoplasm of overlapping FINAL REPORT PATIENT sites of ID: [id number] CT of chest bladder with contrast, CT of the abdomen and pelvis, with and without contrast Clinical History: Unlisted Reason for ExamMalignant neoplasm of overlapping sites of bladder Technique: CT of the chest is performed after intravenous contrast administration. CT of the abdomen and pelvis is performed before and after intravenous contrast administration. This exam was performed according to our departmental dose optimization program which includes automated exposure control, adjustment of the mA and/or kV according to patient's size and/or use of iterative reconstructive technique. Comparison Film: February 04, 2022, October 29, 2021, July 29, 2021 Discussion: A right-sided Port-A-Cath has been removed. No supraclavicular, axillary, mediastinal or hilar lymphadenopathy. Heart is borderline enlarged. Trace pericardial fluid. There is no mass or consolidation, no pleural effusion. Central airways are patent, no bronchiectasis or bronchial wall thickening. No liver mass is identified. No biliary ductal dilatation. Stones are noted in the gallbladder. Spleen, pancreas, and adrenal glands are normal. There is a tiny nonobstructive stone in the right kidney. Multifocal cortical scarring is noted bilaterally. No suspicious renal mass. There is mild bilateral hydronephrosis. No filling defect is identified in the opacified portion of the renal collecting system. Patient is status post cystectomy with Jazzy pouch. Pouch wall remains mildly thickened. No evidence of bowel obstruction, or abnormal bowel wall thickening. Mild fecal in impaction is noted in the rectum. There is no lymphadenopathy, or ascites. Bony structures demonstrate degenerative changes. No suspicious bony lesion. Impression: No new disease is identified in the chest, abdomen or pelvis. Persistent wall thickening of the Jazzy pouch. Mild bilateral hydronephrosis. Cholelithiasis. Signed: Beto Bianchieport Verified Date/Time: 08/12/2022 12:52:00 Reading Location: [facility] B1 C013X Ortho Consult Reading Room , ABDOMEN 2022-07- Unlisted Reason 24 for Exam - 12:52:[address] [facility] Below->ALEXANDRIA Pritchett Reason for MELENDEZ : 1945 Exam->Malignant Sex: neoplasm of F overlapping sites of FINAL REPORT PATIENT bladderIs this ID: [id number] CT of chest for with contrast, CT of the enterography?-> abdomen and pelvis, with NoWill this and without contrast procedure Clinical History: Unlisted require oral Reason for ExamMalignant contrast?->No neoplasm of overlapping sites of bladder Technique: CT of the chest is performed after intravenous contrast administration. CT of the abdomen and pelvis is performed before and after intravenous contrast administration. This exam was performed according to our departmental dose optimization program which includes automated exposure control, adjustment of the mA and/or kV according to patient's size and/or use of iterative reconstructive technique. Comparison Film: February 04, 2022, October 29, 2021, July 29, 2021 Discussion: A right-sided Port-A-Cath has been removed. No supraclavicular, axillary, mediastinal or hilar lymphadenopathy. Heart is borderline enlarged. Trace pericardial fluid. There is no mass or consolidation, no pleural effusion. Central airways are patent, no bronchiectasis or bronchial wall thickening. No liver mass is identified. No biliary ductal dilatation. Stones are noted in the gallbladder. Spleen, pancreas, and adrenal glands are normal. There is a tiny nonobstructive stone in the right kidney. Multifocal cortical scarring is noted bilaterally. No suspicious renal mass. There is mild bilateral hydronephrosis. No filling defect is identified in the opacified portion of the renal collecting system. Patient is status post cystectomy with [place] pouch. Pouch wall remains mildly thickened. No evidence of bowel obstruction, or abnormal bowel wall thickening. Mild fecal in impaction is noted in the rectum. There is no lymphadenopathy, or ascites. Bony structures demonstrate degenerative changes. No suspicious bony lesion. Impression: No new disease is identified in the chest, abdomen or pelvis. Persistent wall thickening of the [place] pouch. Mild bilateral hydronephrosis. Cholelithiasis. Signed: Beto Bianchi MDReport Verified Date/Time: 08/12/2022 12:52:00 Reading Location: [facility] C013X Ortho Consult Reading Room YEBOAH, 2022-03- Reason for FLUORO 01 Exam:->Malignan 15:46:00 t [facility] of ALEXANDRIA MERCADO SIMPSON : 1945 Port-A-Cath in Sex: place F FINAL REPORT Right Chest Port-A-Cath removal. History: Malignant neoplasm of overlapping sites of bladder, Port-A-Cath in place Modality: None. Sedation: No sedation. Vital signs were monitored throughout the procedure by a nurse, and remained stable. Physician intra-service time was 35 minutes. Continuity Tester: Meño Alfaro MD. Approach: Right anterior chest. [...] Alfaro Verified Date/Time: 03/20/2022 15:46:55 Reading Location: [facility] Radiology Reading Room HROMBIN TIME/INR 2022-03-18 11:58:21 Test Item Value Reference Range Interpretation Comme nts PROTIME (BEAKER) (test code 14.6 seconds 11.9-14.2 H = 759) INR (BEAKER) (test code = 1.21 See_Comment [ Automated message] The [employer] system which ge nerated this result transmit tom reference range: <=5.90. The reference range was not u sed to interpret this result as normal/abnormal . RECOMMENDED COUMADIN/WARFARIN INR THERAPY RANGESSTANDARD DOSE: 2.0 - 3.0 Includes: PROPHYLAXIS for venous thrombosis, systemic embolization; TREATMENT for venous thrombosis and/or pulmonary embolus.HIGH RISK: Target INR is 2.5-3.5 for patients with mechanical heart valves.POC-Glucose [id number] 11:50:47 Test Item Value Reference Range Interpretation Comments POC-Glucose Meter (test 91 mg/dL 70-110 : TE STED AT [facility] code = 1538) [address] [facility], 770 30: Licensed Mortgage Loan Officer/Techni kylie ID = [id number] for Sarsoza, Gemma Lab Interpretation (test Normal code = 72934-6) [facility] [id number] 11:50:47 Test Item Value Reference Range Interpretation Comments POC-Glucose Meter (test 91 mg/dL 70-110 : TE STED AT [facility] code = 1538) [address] [facility], 770 30: Licensed Mortgage Loan Officer/Techni kylie ID = [id number] for Sarsoza, Gemma Lab Interpretation (test Normal code = 39599-8) [facility] [id number] 11:50:47 Test Item Value Reference Range Interpretation Comments POC-Glucose Meter (test 91 mg/dL 70-110 : TE STED AT [facility] code = 1538) [address] [place] [address], 770 30: Licensed Mortgage Loan Officer/Techni kylie ID = [id number] for Sarsoza, Gemma Lab Interpretation (test Normal code = 41889-8) [facility] [id number] 11:50:47 Test Item Value Reference Range Interpretation Comments POC-Glucose Meter (test 91 mg/dL 70-110 : TE STED AT [facility] code = 1538) [address] [place] [address], 770 30: Licensed Mortgage Loan Officer/Techni kylie ID = [id number] for Sarsoza, Gemma Lab Interpretation (test Normal code = 05853-2) [facility]-Glucose [id number] 11:50:47 Test Item Value Reference Range Interpretation Comments POC-Glucose Meter (test 91 mg/dL 70-110 : TE STED AT [facility] code = 1538) [address] [place] [address], 770 30: Licensed Mortgage Loan Officer/Techni kylie ID = [id number] for Sarsoza, Gemma Lab Interpretation (test Normal code = 75048-3) [facility]-Glucose [id number] 11:50:47 Test Item Value Reference Range Interpretation Comments POC-Glucose Meter (test 91 mg/dL 70-110 : TE STED AT [facility] code = 1538) [address] [place] [address], 770 30: Licensed Mortgage Loan Officer/Techni kylie ID = [id number] for Sarsoza, Gemma Lab Interpretation (test Normal code = 80185-5) [facility] [id number] 11:50:47 Test Item Value Reference Range Interpretation Comments POC-Glucose Meter (test 91 mg/dL 70-110 : TE STED AT [facility] code = 1538) [address] [place] [address], 770 30: Licensed Mortgage Loan Officer/Techni kylie ID = [id number] for Sarsoza, Gemma Lab Interpretation (test Normal code = 28772-3) [facility] [id number] 11:50:47 Test Item Value Reference Range Interpretation Comments POC-Glucose Meter (test 91 mg/dL 70-110 : TE STED AT [facility] code = 1538) [address] [place] [address], 770 30: Licensed Mortgage Loan Officer/Techni kylie ID = [id number] for Sarsoza, Gemma Lab Interpretation (test Normal code = 76800-6) [facility]-Glucose [id number] 11:50:47 Test Item Value Reference Range Interpretation Comments POC-Glucose Meter (test 91 mg/dL 70-110 : TE STED AT [facility] code = 1538) [address] [place] [address], [facility] 30: Licensed Mortgage Loan Officer/Techni kylie ID = [id number] for Sarsoza, Gemma Lab Interpretation (test Normal code = 23371-2) [facility]-Glucose [id number] 11:50:47 Test Item Value Reference Range Interpretation Comments POC-Glucose Meter (test 91 mg/dL 70-110 : TE STED AT [facility] code = 1538) [address] [place] [address], [facility] 30: Licensed Mortgage Loan Officer/Techni kylie ID = [id number] for Sarsoza, Gemma Lab Interpretation (test Normal code = 00018-3) [facility]-Glucose [id number] 11:50:47 Test Item Value Reference Range Interpretation Comments POC-Glucose Meter (test 91 mg/dL 70-110 : TE STED AT [facility] code = 1538) [address] [place] [address], [facility] 30: Licensed Mortgage Loan Officer/Techni kylie ID = [id number] for Sarsoza, Gemma Lab Interpretation (test Normal code = 52345-0) [facility]-Glucose [id number] 11:50:47 Test Item Value Reference Range Interpretation Comments POC-Glucose Meter (test 91 mg/dL 70-110 : TE STED AT [facility] code = 1538) [address] [place] [address], 770 30: Licensed Mortgage Loan Officer/Techni kylie ID = [id number] for Sarsoza, Gemma Lab Interpretation (test Normal code = 31558-0) [facility]-Glucose [id number] 11:50:47 Test Item Value Reference Range Interpretation Comments POC-Glucose Meter (test 91 mg/dL 70-110 : TE STED AT [facility] code = 1538) [address] [place], 7[address] 30: Licensed Mortgage Loan Officer/Techni kylie ID = [id number] for Claudia Andrade Lab Interpretation (test Normal code = 24047-3) [facility]PO[facility]SE [id number] 11:50:47 Test Item Value Reference Range Interpretation Comments POC-GLUCOSE METER 91 mg/dL 70-110 : TESTED A T [facility] 6720 (BEAKER) (test code = ANDREA Mcfarland [facility], 1538) [address]: Licensed Mortgage Loan Officer/Techni kylie ID = [id number] for Vera simonsa [place] CBC W/PLT COUNT & AUTO [id number] 11:50:17 Test Item Value Reference Range Interpretation [...] code = 2801) CT, CHEST, WITH IV [id number] 10:07:00Unlisted Reason for Exam - Click Yes and Enter Reason Below->Yes Unlisted Reason for Exam->Malignant neoplasm of overlapping sites of bladder [facility] : 1945 Sex: FFINAL REPORT [...] pelviectasis is unchanged. Status post cystectomy with [place] pouch. Proximal remains thickened. No evidence of bowel obstruction, or abnormal bowelwall thickening. There is no ascites, free air or adenopathy. Bony structures demonstrate degenerative changes. Impression: Previously seen right lower lobe pulmonary nodules are either smaller or resolved. No new disease identified in the chest, abdomen or pelvis. Persistent wall thickening of the Jazzy pouch. Cholelithiasis. Punctate nonobstructive stone in the right kidney. Signed: Beto Bianchieport Verified Date/Time: 02/05/2022 10:07:02 Reading Location: [address] Consult Reading Room CT, [id number] 10:07:00Unlisted Reason for Exam - Click Yes and Enter Reason Below->YesUnlisted Reason for Exam->Malignant neoplasm of overlapping sites of bladderIs this for enterography?->NoWill this procedure require oral contrast?->No [facility]ENTER[facility]: ALEXANDRIA MERCADO : 1945 [...] or pelvis. Persistent wall thickening of the [place] pouch. Cholelithiasis. Punctate nonobstructive stone in the right kidney. Signed: Beto Bianchi Verified Date/Time: 02/05/2022 10:07:02 Reading Location: [facility] C013X [facility] Consult Reading Room CT, [id number] 07:33:00T2N0 bladder cancer restagingPlease compare to prior imagingSchedule early to mid October 2021UnlistedReason for Exam - Click Yes and Enter Reason Below- >YesUnlisted Reason for Exam->Malignant neoplasm of overlapping sites of bladderIs this for enterography?->NoWill this procedure require oral contrast?->No[facility] ALEX[facility] MER[facility] : 1945 Sex: FFINAL [...] renal collecting system. Status post cystectomy, with [place] pouch. Pouch wall remains mildly thickened, but [...] to follow-up. Persistent wall thickening of the [place] pouch. Nonew disease identified in the abdomen or pelvis. Cholelithiasis. Signed: Beto Bianchi MDReport Verified Date/Time: 11/03/2021 07:33:51 CT, CHEST, WITH IV [id number] 07:33:00T2N0 bladder cancer restagingPlease compare to prior imagingSchedule early to mid October 2021UnlistedReason for Exam - Click Yes and Enter Reason Below->YesUnlisted Reason for Exam->Malignant neoplasm of overlapping sites of bladder [facility] MERCAD[facility] MELENDEZ : 1945 Sex: [...] abdomen or pelvis. Cholelithiasis. Signed: Beto Bianchi [facility] Verified Date/Time: 11/03/2021 07:33:51 CT, CHEST, WITH IV [id number] 13:55:00Unlisted Reason for Exam - Click Yes and Enter Reason Below->YesUnlisted Reason for Exam->Malignant neoplasm of overlapping sites of bladder [facility] : 1945 Sex: FFINAL [...] thickening. Patient is status post cystectomy, with Jazzy pouch. Pouch wall is mildly thickened. Uterus is also absent. No adnexal mass. There is no adenopathy. No ascites. Bony structures demonstrate degenerative changes. No suspicious bony lesion is identified. Impression: Persistent wall thickening of the Jazzy pouch. No metastatic disease is identified in the chest, abdomen or pelvis. Cholelithiasis. Signed: Beto Bianchiort Verified Date/Time: 07/29/2021 13:55:07 Reading Location: [facility] C013X [facility] Consult Reading Room CT, ABDOMEN 2021-07-29 13:55:00Unlisted Reason for Exam - Click Yes and Enter Reason Below- >YesUnlisted Reason for Exam->Malignant neoplasm of overlapping sites of bladderWill this procedure require oral contrast?->No [facility] : 1945 Sex: FFINAL [...] thickening. Patient is status post cystectomy, with Jazzy pouch. Pouch wall is mildly thickened. Uterus is also absent. No adnexal mass. There is no adenopathy. No ascites. Bony structures demonstrate degenerative changes. No suspicious bony lesion is identified. Impression: Persistent wall thickening of the Jazzy pouch. No metastatic disease is identified in the chest, abdomen or pelvis. Cholelithiasis. Signed: Beto Bianchi Verified Date/Time: 07/29/2021 13:55:07 Reading Location: [facility] C013X Ortho Consult Reading Room POC-Creatinine 2021-07-29 13:03:28 Test Item Value Reference Range Interpretation Comments POC-Creatinine (test 1.0 mg/dL 0.6-1.3 : TESTE D AT [facility] 7200 code = 21888-2) [place] [address] 0: Licensed Mortgage Loan Officer/Techni kylie ID = [id number] for Penny , Carri POC-EGFR (test code 54 mL/min/1.73M2 = 80836-4) [id number] 13:03:28 Test Item Value Reference Range Interpretation Comments POC-Creatinine (test 1.0 mg/dL 0.6-1.3 : TESTE D AT [facility] 7200 code = 35902-1) [place] [address] 0: Licensed Mortgage Loan Officer/Techni kylie ID = [id number] for Penny , Carri POC-EGFR (test code 54 mL/min/1.73M2 = 08063-4) [facility] [id number] 13:03:28 Test Item Value Reference Range Interpretation Comments POC-Creatinine (test 1.0 mg/dL 0.6-1.3 : TESTE D AT [facility] 7200 code = 69096-5) [place] [address] 0: Licensed Mortgage Loan Officer/Techni kylie ID = [id number] for Penyn , Carri POC-EGFR (test code 54 mL/min/1.73M2 = 06365-0) [facility] [id number] 13:03:28 Test Item Value Reference Range Interpretation Comments POC-Creatinine (test 1.0 mg/dL 0.6-1.3 : TESTE D AT [facility] 720 code = 87402-9) [place] [address] 0: Licensed Mortgage Loan Officer/Techni kylie ID = [id number] for Penny , Carri POC-EGFR (test code 54 mL/min/1.73M2 = 49588-8) [facility] HospitalBtdcvsxrvy7375-02-13 13:03:28 Test Item Value Reference Range Interpretation Comments POC-Creatinine (test 1.0 mg/dL 0.6-1.3 : TESTE D AT [facility] 7200 code = 1859) [facility] A, [place] [address]: Licensed Mortgage Loan Officer/Techni kylie ID = [id number] for Carri Penny POC-EGFR (test code 54 mL/min/1.73M2 = 1860) [facility]CkfmlkDKPI-[id number] 13:03:28 Test Item Value Reference Range Interpretation Comments POC-CREATININE 1.0 mg/dL 0.6-1.3 : TESTED AT [facility] (BEAKER) (test 7200 [facility] code = 1859) [facility] Licensed Mortgage Loan Officer/Techni kylie ID = [id number] for Carri Penny POC-EGFR 54 mL/min/1.73M2 (BEAKER) (test code = 1860) CT, [id number] 12:39:00Restaging bladder cancerUnlisted Reason for Exam - Click Yes and Enter Reason Below->YesUnlisted Reason for Exam->Malignant neoplasm of overlapping sites of bladderWill this procedure require oral contrast?->NoPROVIDENCE [facility]USName: JESS ALEXANDRIANOHEMY MELENDEZ : 1945 Sex: FFINAL [...] no significant hydronephrosis. Status post cystectomy with [place] pouch. There is mild persistent segmental pouch wall thickening. No evidence of bowel obstruction, or abnormal bowel wall thickening. No adenopathy or mass lesion is identified. No ascites. Bony structures demonstrate degenerative changes. No suspicious bony lesion is identified. Impression: Persistent mild segmental wall thickening of the [place] pouch. No new disease identified inthe chest, abdomen or pelvis. Signed: Beto Bianchicrittenton behavioral health Verified Date/Time: 05/03/2021 12:39:20 Reading Location: [address] Ortho Consult Reading Room CT, CHEST, WITH IV [id number] 12:39:00Restaging bladder cancerUnlisted Reason for Exam - Click Yes and Enter Reason Below- >YesUnlisted Reason for Exam->Malignant neoplasm of overlapping sites of bladderRUSSELL TUSTIN [facility]IL[facility]PITALName: ALEXANDRIA MERCADO : 1945 Sex: FFINAL [...] no significant hydronephrosis. Status post cystectomy with [place] pouch. There is mild persistent segmental pouch wall thickening. No evidence of bowel obstruction, or abnormal bowel wall thickening. No adenopathy or mass lesion is identified. No ascites. Bony structures demonstrate degenerative changes. No suspicious bony lesion is identified. Impression: Persistent mild segmental wall thickening of the [place] pouch. No new disease identified inthe chest, abdomen or pelvis. Signed: Beto Bianchi MDReport Verified Date/Time: 05/03/2021 12:39:20 Reading Location: [address] Ortho Consult Reading Room [id number] 11:16:33 Test Item Value Reference Range Interpretation Comments POC-CREATININE 1.0 mg/dL 0.6-1.3 : TESTED AT B [facility] (test 7200 [facility] E DG code = 1859) A, [facility] 7 [address]339: Licensed Mortgage Loan Officer/Techni kylie ID = [id number] for Nacho Gomez POC-EGFR 54 mL/min/1.73M2 ([facility]) (test code = 1860) CT, [id number] 13:16:00Restaging bladder cancerUnlisted Reason for Exam - Click Yes and Enter Reason Below->YesUnlisted Reason for Exam->Malignant neoplasm of overlapping sites of bladderWill this procedure require oral contrast?->NoCHI TUSTIN REHABILIT[facility]OSPITALName: ALEXANDRIA MERCADO : 1945 Sex: FFINAL [...] of the Jazzy pouch. Signed: Beto Bianchi VerifiedDate/Time: 01/18/2021 13:16:05 Reading Location: [facility] B1 C013X Ortho Consult Reading Room [facility] signed by: BETO BIANCHI M.D. on 01/18/2021 01:16 PMCT, CHEST, WITH IV CONTRAST 2021-01-18 13:16:00Restaging bladder cancerUnlisted Reason for Exam - Click Yes and Enter Reason Below->YesUnlisted Reason for Exam->Malignant neoplasm of overlapping sites of bladder [facility]Name: ALEXANDRIA MERCADO AL : 1945 Sex: FFINAL [...] unchanged. Patient is status post cystectomy with [place] pouch. Pouch wall thickening has decreased but there is persistent mild wall thickening anteriorly. No bowel obstruction, or abnormal bowel wall thickening. There is no ascites, free air or adenopathy. Bony structures demonstrate degenerative changes.No suspicious bony lesion is identified. Impression: No metastatic disease identified in the chest, abdomen or pelvis. Decreased wall thickening of the [place] pouch. Signed: Beto Bianchieport VerifiedDate/Time: 01/18/2021 13:16:05 Reading Location: [facility] B1 C013X Ortho Consult Reading Room Electronical ly signed by: BETO BIANCHI M.D. on 01/18/2021 01:16 [id number] 12:41:00 Test Item Value Reference Range Interpretation Comments POC-CREATININE 1.0 mg/dL 0.6-1.3 : TESTED AT [facility] ([facility] (test 7200 [facility] code = 1859) [facility] [address]: Licensed Mortgage Loan Officer/Techni kylie ID = [id number] for MANNY ISLAS POC-EGFR 54 mL/min/1.73M2 ([facility]) (test code = 1860) CT, CHEST, WITH IV [id number] 10:47:00Unlisted Reason for Exam - Click Yes and Enter Reason Below->YesUnlisted Reason for Exam->Malignant neoplasm of overlapping sites of bladder [facility]Name: ALEXANDRIA MERCADO MELENDEZ : 1945 Sex: FFINAL [...] April 25, 2020 Discussion: There is a yzwpy-impweFjwd-R-Cath. No supraclavicular, axillary, mediastinal or hilar lymphadenopathy. [...] stone. Patient is status post cystectomy with [place] pouch. There ispersistent wall thickening along the [...] with urinalysis to exclude infection. Signed: Beto Bianchisaint mary[facility] hospital Verified Date/Time: 10/04/2020 10:47:02 Reading Location: [facility] C013X [facility] Consult Reading Room [facility], [id number] 10:47:00Unlisted Reason for Exam - Click Yes and Enter Reason Below->YesUnlisted Reason for Exam->Malignant neoplasm of overlapping sites of bladderWill this procedure require oral contrast?->Yes [facility]Name: ALEXANDRIA MERCADO : 1945 Sex: FFINAL [...] April 25, 2020 Discussion: There is a jcvjv-dgadoAgmj-P-Cath. No supraclavicular, axillary, mediastinal or hilar lymphadenopathy. [...] stone. Patient is status post cystectomy with [place] pouch. There ispersistent wall thickening along the [...] with urinalysis to exclude infection. Signed: Beto Bianchiort Verified Date/Time: 10/04/2020 10:47:02 Reading Location: [facility] B1 C013X Ortho Consult Reading Room -[id number] 08:59:00 Test Item Value Reference Range Interpretation Comments POC-CREATININE 1.0 mg/dL 0.6-1.3 : TESTED AT B [facility] = 1859[facility] [place], [place] [address]: Licensed Mortgage Loan Officer/Techni kylie ID = [id number] for MANNY ISLAS POC-EGFR 54 mL/min/1.73M2 ([facility]) (test code = 1860) US PELVIS COMPLETE WITH [id number] 23:47:141. ?Status post hysterectomy. Bilateral ovaries were not visualized, may besurgically absent. Preliminary Report Dictated by Resident: Teo Morley MD., have reviewed this study and agree with the abovereport.EXAM: US PELVIS COMPLETE WITH TRANSVAGINAL HISTORY: 74 years -old female status post cystectomy and hysterectomy withpost menopausal bleeding . TECHNIQUE: Transabdominal and transvaginal ultrasound imaging of the pelviswas performed including color Doppler evaluation. [employer] Kiln Operator imageswere obtained for the record. COMPARISON: None FINDINGS: Uterus: Status post hysterectomy. The vagina cuff is unremarkable. Right Adnexa:Ovary: Not visualized Left Adnexa:Ovary : Not vi sualized. Cul-de-sac: No free fluid. [facility], Radiant Results Inft User - 07/19/2020 5:48 PM CSTEXAM: US PELVIS COMPLETE WITH TRANSVAGINALHISTORY: 74 years -old female status post cystectomy and hysterectomy withpost menopausal bleeding . TECHNIQUE: Transabdominal and transvaginal ultrasound imaging of the pelviswas performed including color Doppler evaluation. [employer] Kiln Operator imageswere obtained for therecord.COMPARISON: NoneFINDINGS:Uterus: Status post hysterectomy. The vagina cuff is unremarkable.Right Adnexa:Ovary: Not visualizedLeft Adnexa:Ovary : Not visualized.Cul-de-sac: No free fluid.IMPRESSIO N1. Status post hysterectomy. Bilateral ovaries were not visualized, may besurgically absent.Preliminary Report Dictated by Resident: Krystal BarghashI, Teo Bezold, MD., have reviewed this study and agree with the abovereport. [facility] [id number] 23:45:31 Nodule 1 located in the upper [...] Preliminary Report Dictated by Resident: Teo Morley ?MD Lillie., have reviewed this study and agree with [...] years(from date of in itial exam 07/19/2020) [facility], Radiant Results Inft User - 07/19/2020 5:46 [...] reviewed this study and agree with the abovereport.[facility] SCREENING MAMMOGRAM [id number] 18:20:10Examination:BI SCREENING MAMMOGRAM BILATERAL History:Patient is 74 [...] - Bilateral BI-RADS Category: Both 2 - BenignUnFreestone Medical CenterCT, CHEST, WITH IV CONTRAST 2020-07-17 15:58:00Unlisted Reason for Exam - Click Yes and Enter Reason Below- >YesUnlisted Reason for Exam->Malignant neoplasm of overlapping sites of bladderRUSSELL TUSTIN REHABILITATION HOSPITALName: ALEXANDRIA MERCADO : 1945 Sex: FFINAL [...] cystectomy. There is a right lower quadrant [place] pouch with a midline urostomy. There is [...] chest, abdomen, or pelvis. Signed: Gio Hurley [facility]ITALeport Verified Date/Time: 07/17/2020 15:58:18 [facility], [id number] 15:58:00Unlisted Reason for Exam - Click Yes and Enter Reason Below->YesUnlisted Reason for Exam->Malignant neoplasm of overlapping sites of bladder [facility]Name: JESSALEXANDRIA HARRIS [place] : 1945 Sex: FFINAL REPORT TECHNIQUE: [...] cystectomy. There is a right lower quadrant [place] pouch with a midline urostomy. There is [...] Gio Hurley MDReport Verified Date/Time: 07/17/2020 15:58:18 [id number] 10:41:00 Test Item Value Reference Range Interpretation Comments POC-CREATININE 0.8 mg/dL 0.6-1.3 : TESTED AT B [facility] (test [address] code = 1859) A, [place] [address]: Licensed Mortgage Loan Officer/Techni kylie ID = [id number] for MANNY ISLAS POC-EGFR 70 mL/min/1.73M2 (BEAKER) (test code = 1860) CHEM [id number] 13:05:00 Test Item Value Reference Range Interpretation Comments BUN (test code = BUN) 02-10 [facility] [id number] 13:05:00 Test Item Value Reference Range Interpretation Comments Creatinine Lvl (test code = Creatinine 0.83 0.60-0.93 Lvl) [facility] [id number] 13:05:00 Test Item Value Reference Range Interpretation Comments eGFR NON-AFR. BELGIAN (test code = 69 eGFR NON-AFR. BELGIAN) [facility] HermannCHEM [id number] 13:05:00 Test Item Value Reference Range Interpretation Comments eGFR (test code = eGFR 81 ) [facility] [id number] 13:05:00 Test Item Value Reference Range Interpretation Comments B/C Ratio (test code = B/C NOT APPLICABLE 01-08 Ratio) [facility] [id number] 13:05:00 Test Item Value Reference Range Interpretation Comments BUN (test code = BUN) 02-10 [facility] HermannCHEM [id number] 13:05:00 Test Item Value Reference Range Interpretation Comments Creatinine Lvl (test code = Creatinine 0.83 0.60-0.93 Lvl) [facility] [id number] 13:05:00 Test Item Value Reference Range Interpretation Comments eGFR NON-AFR. BELGIAN (test code = 69 eGFR NON-AFR. BELGIAN) [facility] [id number] 13:05:00 Test Item Value Reference Range Interpretation Comments eGFR (test code = eGFR 81 ) [facility] [id number] 13:05:00 Test Item Value Reference Range Interpretation Comments B/C Ratio (test code = B/C NOT APPLICABLE 01-08 Ratio) [facility] [id number] 13:05:00 Test Item Value Reference Range Interpretation Comments BUN (test code = BUN) 8 02-10 [facility] [id number] 13:05:00 Test Item Value Reference Range Interpretation Comments Creatinine Lvl (test code = Creatinine 0.83 0.60-0.93 Lvl) [facility] [id number] 13:05:00 Test Item Value Reference Range Interpretation Comments eGFR NON-AFR. BELGIAN (test code = 69 eGFR NON-AFR. BELGIAN) [facility] [id number] 13:05:00 Test Item Value Reference Range Interpretation Comments eGFR (test code = eGFR 81 ) [facility]annCHEM [id number] 13:05:00 Test Item Value Reference Range Interpretation Comments B/C Ratio (test code = B/C NOT APPLICABLE 01-08 Ratio) [facility]CHE[facility] [id number] 13:05:00 Test Item Value Reference Range Interpretation Comments BUN (test code = BUN) 02-10 [facility] MobileannCHEM [id number] 13:05:00 Test Item Value Reference Range Interpretation Comments Creatinine Lvl (test code = Creatinine 0.83 0.60-0.93 Lvl) [facility]CHE[facility] [id number] 13:05:00 Test Item Value Reference Range Interpretation Comments eGFR NON-AFR. BELGIAN (test code = 69 eGFR NON-AFR. BELGIAN) [facility] MobileannCHEM [id number] 13:05:00 Test Item Value Reference Range Interpretation Comments eGFR (test code = eGFR 81 ) [facility] MobileannCHEM [id number] 13:05:00 Test Item Value Reference Range Interpretation Comments B/C Ratio (test code = B/C NOT APPLICABLE 01-08 Ratio) [facility]annmob[facility] [id number] 13:05:00 Test Item Value Reference Range Interpretation Comments BUN (test code = BUN) 02-10 [facility]CHE[facility] [id number] 13:05:00 Test Item Value Reference Range Interpretation Comments Creatinine Lvl (test code = Creatinine 0.83 0.60-0.93 Lvl) [facility] [id number] 13:05:00 Test Item Value Reference Range Interpretation Comments eGFR NON-AFR. BELGIAN (test code = 69 eGFR NON-AFR. BELGIAN) [facility]annCHEM [id number] 13:05:00 Test Item Value Reference Range Interpretation Comments eGFR (test code = eGFR 81 ) [facility] [id number] 13:05:00 Test Item Value Reference Range Interpretation Comments B/C Ratio (test code = B/C NOT APPLICABLE 6-22 Ratio) [facility] [id number] 13:05:00 Test Item Value Reference Range Interpretation Comments BUN (test code = BUN) 8 02-10 [facility] [id number] 13:05:00 Test Item Value Reference Range Interpretation Comments Creatinine Lvl (test code = Creatinine 0.83 0.60-0.93 Lvl) [facility]CHE[facility] [id number] 13:05:00 Test Item Value Reference Range Interpretation Comments eGFR NON-AFR. BELGIAN (test code = 69 eGFR NON-AFR. BELGIAN) [facility] MobileannCHEM [id number] 13:05:00 Test Item Value Reference Range Interpretation Comments eGFR (test code = eGFR 81 ) [facility]CHE[facility] [id number] 13:05:00 Test Item Value Reference Range Interpretation Comments B/C Ratio (test code = B/C NOT APPLICABLE 6-22 Ratio) [facility] [id number] 13:05:00 Test Item Value Reference Range Interpretation Comments BUN (test code = BUN) 02-10 [facility] MobileannCHEM [id number] 13:05:00 Test Item Value Reference Range Interpretation Comments Creatinine Lvl (test code = Creatinine 0.83 0.60-0.93 Lvl) [facility] [id number] 13:05:00 Test Item Value Reference Range Interpretation Comments eGFR NON-AFR. BELGIAN (test code = 69 eGFR NON-AFR. BELGIAN) [facility] Mobileannmob[facility]vas [id number] 13:05:00 Test Item Value Reference Range Interpretation Comments eGFR (test code = eGFR 81 ) [facility]CHE[facility] [id number] 13:05:00 Test Item Value Reference Range Interpretation Comments B/C Ratio (test code = B/C NOT APPLICABLE 6-22 Ratio) [facility] [employer] [id number] 13:05:00 Test Item Value Reference Range Interpretation Comments BUN (test code = BUN) 8 02-10 [facility] [employer]annmob[employer] [id number] 13:05:00 Test Item Value Reference Range Interpretation Comments Creatinine Lvl (test code = Creatinine 0.83 0.60-0.93 Lvl) [facility] [employer] [id number] 13:05:00 Test Item Value Reference Range Interpretation Comments eGFR NON-AFR. BELGIAN (test code = 69 eGFR NON-AFR. BELGIAN) [facility] [employer]ann[employer] [id number] 13:05:00 Test Item Value Reference Range Interpretation Comments eGFR (test code = eGFR 81 ) [facility]annmob[facility]vas [id number] 13:05:00 Test Item Value Reference Range Interpretation Comments B/C Ratio (test code = B/C NOT APPLICABLE 01-08 Ratio) [facility]enton[facility]. [id number] 13:05:00 Test Item Value Reference Range Interpretation Comments BUN (test code = BUN) 02-10 [facility]. [id number] 13:05:00 Test Item Value Reference Range Interpretation Comments Creatinine Lvl (test code = Creatinine 0.83 0.60-0.93 Lvl) [facility]. [id number] 13:05:00 Test Item Value Reference Range Interpretation Comments eGFR NON-AFR. BELGIAN (test code = 69 eGFR NON-AFR. BELGIAN) [facility] [employer] [id number] 13:05:00 Test Item Value Reference Range Interpretation Comments eGFR (test code = eGFR 81 ) [facility] [employer] [id number] 13:05:00 Test Item Value Reference Range Interpretation Comments B/C Ratio (test code = B/C NOT APPLICABLE 22 Ratio) [facility] [employer] [id number] 13:05:00 Test Item Value Reference Range Interpretation Comments BUN (test code = BUN) 02-10 [facility] [employer] [id number] 13:05:00 Test Item Value Reference Range Interpretation Comments Creatinine Lvl (test code = Creatinine 0.83 0.60-0.93 Lvl) [facility]. [id number] 13:05:00 Test Item Value Reference Range Interpretation Comments eGFR NON-AFR. BELGIAN (test code = 69 eGFR NON-AFR. BELGIAN) [facility] [employer] [id number] 13:05:00 Test Item Value Reference Range Interpretation Comments eGFR (test code = eGFR 81 ) [facility] [id number] 13:05:00 Test Item Value Reference Range Interpretation Comments B/C Ratio (test code = B/C NOT APPLICABLE -22 Ratio) [facility] [id number] 13:05:00 Test Item Value Reference Range Interpretation Comments BUN (test code = BUN) 8 02-10 [facility] [id number] 13:05:00 Test Item Value Reference Range Interpretation Comments Creatinine Lvl (test code = Creatinine 0.83 0.60-0.93 Lvl) [facility] [id number] 13:05:00 Test Item Value Reference Range Interpretation Comments eGFR NON-AFR. BELGIAN (test code = 69 eGFR NON-AFR. BELGIAN) [facility] [id number] 13:05:00 Test Item Value Reference Range Interpretation Comments eGFR (test code = eGFR 81 ) [facility] [id number] 13:05:00 Test Item Value Reference Range Interpretation Comments B/C Ratio (test code = B/C NOT APPLICABLE 01-08 Ratio) [facility] [id number] 13:05:00 Test Item Value Reference Range Interpretation Comments BUN (test code = BUN) 02-10 [facility] [id number] 13:05:00 Test Item Value Reference Range Interpretation Comments Creatinine Lvl (test code = Creatinine 0.83 0.60-0.93 Lvl) [facility]CHE[facility] [id number] 13:05:00 Test Item Value Reference Range Interpretation Comments eGFR NON-AFR. BELGIAN (test code = 69 eGFR NON-AFR. BELGIAN) [facility]CHE[facility] [id number] 13:05:00 Test Item Value Reference Range Interpretation Comments eGFR (test code = eGFR 81 ) [facility]CHE[facility] [id number] 13:05:00 Test Item Value Reference Range Interpretation Comments B/C Ratio (test code = B/C NOT APPLICABLE -22 Ratio) [facility] [id number] 13:05:00 Test Item Value Reference Range Interpretation Comments BUN (test code = BUN) 8 02-10 [facility] [id number] 13:05:00 Test Item Value Reference Range Interpretation Comments Creatinine Lvl (test code = Creatinine 0.83 0.60-0.93 Lvl) [facility] [id number] 13:05:00 Test Item Value Reference Range Interpretation Comments eGFR NON-AFR. BELGIAN (test code = 69 eGFR NON-AFR. BELGIAN) [facility] [id number] 13:05:00 Test Item Value Reference Range Interpretation Comments eGFR (test code = eGFR 81 ) [facility] [id number] 13:05:00 Test Item Value Reference Range Interpretation Comments B/C Ratio (test code = B/C NOT APPLICABLE 6-22 Ratio) [facility]CHE[facility] [id number] 13:05:00 Test Item Value Reference Range Interpretation Comments BUN (test code = BUN) 02-10 [facility] [employer]annCHEM [id number] 13:05:00 Test Item Value Reference Range Interpretation Comments Creatinine Lvl (test code = Creatinine 0.83 0.60-0.93 Lvl) [facility]CHE[facility] [id number] 13:05:00 Test Item Value Reference Range Interpretation Comments eGFR NON-AFR. BELGIAN (test code = 69 eGFR NON-AFR. BELGIAN) [facility]CHE[facility] [id number] 13:05:00 Test Item Value Reference Range Interpretation Comments eGFR (test code = eGFR 81 ) [facility] [id number] 13:05:00 Test Item Value Reference Range Interpretation Comments B/C Ratio (test code = B/C NOT APPLICABLE 6-22 Ratio) [facility] [id number] 13:05:00 Test Item Value Reference Range Interpretation Comments BUN (test code = BUN) 8 02-10 [facility] [employer]CHEM [id number] 13:05:00 Test Item Value Reference Range Interpretation Comments Creatinine Lvl (test code = Creatinine 0.83 0.60-0.93 Lvl) [facility] [id number] 13:05:00 Test Item Value Reference Range Interpretation Comments eGFR NON-AFR. BELGIAN (test code = 69 eGFR NON-AFR. BELGIAN) [facility] [employer] [id number] 13:05:00 Test Item Value Reference Range Interpretation Comments eGFR (test code = eGFR 81 ) [facility] [id number] 13:05:00 Test Item Value Reference Range Interpretation Comments B/C Ratio (test code = B/C NOT APPLICABLE -22 Ratio) [facility] [employer] [id number] 13:05:00 Test Item Value Reference Range Interpretation Comments BUN (test code = BUN) 8 02-10 [facility] [id number] 13:05:00 Test Item Value Reference Range Interpretation Comments Creatinine Lvl (test code = Creatinine 0.83 0.60-0.93 Lvl) [facility] [id number] 13:05:00 Test Item Value Reference Range Interpretation Comments eGFR NON-AFR. BELGIAN (test code = 69 eGFR NON-AFR. BELGIAN) [facility] [employer] [id number] 13:05:00 Test Item Value Reference Range Interpretation Comments eGFR (test code = eGFR 81 ) [facility] [employer] [id number] 13:05:00 Test Item Value Reference Range Interpretation Comments B/C Ratio (test code = B/C NOT APPLICABLE 01-08 Ratio) [facility] [id number] 13:05:00 Test Item Value Reference Range Interpretation Comments BUN (test code = BUN) 02-10 [facility] [employer] [id number] 13:05:00 Test Item Value Reference Range Interpretation Comments Creatinine Lvl (test code = Creatinine 0.83 0.60-0.93 Lvl) [facility] [employer] [id number] 13:05:00 Test Item Value Reference Range Interpretation Comments eGFR NON-AFR. BELGIAN (test code = 69 eGFR NON-AFR. BELGIAN) [facility] [employer] [id number] 13:05:00 Test Item Value Reference Range Interpretation Comments eGFR (test code = eGFR 81 ) [facility] [employer] [id number] 13:05:00 Test Item Value Reference Range Interpretation Comments B/C Ratio (test code = B/C NOT APPLICABLE -22 Ratio) [facility] [id number] 13:05:00 Test Item Value Reference Range Interpretation Comments BUN (test code = BUN) 8 02-10 [facility] [employer] [id number] 13:05:00 Test Item Value Reference Range Interpretation Comments Creatinine Lvl (test code = Creatinine 0.83 0.60-0.93 Lvl) [facility] [id number] 13:05:00 Test Item Value Reference Range Interpretation Comments eGFR NON-AFR. BELGIAN (test code = 69 eGFR NON-AFR. BELGIAN) [facility] [id number] 13:05:00 Test Item Value Reference Range Interpretation Comments eGFR (test code = eGFR 81 ) [facility] [id number] 13:05:00 Test Item Value Reference Range Interpretation Comments B/C Ratio (test code = B/C NOT APPLICABLE 6-22 Ratio) [facility] [id number] 13:05:00 Test Item Value Reference Range Interpretation Comments BUN (test code = BUN) 02-10 [facility] [id number] 13:05:00 Test Item Value Reference Range Interpretation Comments Creatinine Lvl (test code = Creatinine 0.83 0.60-0.93 Lvl) [facility] [id number] 13:05:00 Test Item Value Reference Range Interpretation Comments eGFR NON-AFR. BELGIAN (test code = 69 eGFR NON-AFR. BELGIAN) [facility] [id number] 13:05:00 Test Item Value Reference Range Interpretation Comments eGFR (test code = eGFR 81 ) [facility] [id number] 13:05:00 Test Item Value Reference Range Interpretation Comments B/C Ratio (test code = B/C NOT APPLICABLE 6-22 Ratio) [facility] [id number] 13:05:00 Test Item Value Reference Range Interpretation Comments BUN (test code = BUN) 02-10 [facility] [id number] 13:05:00 Test Item Value Reference Range Interpretation Comments Creatinine Lvl (test code = Creatinine 0.83 0.60-0.93 Lvl) [facility] [id number] 13:05:00 Test Item Value Reference Range Interpretation Comments eGFR NON-AFR. BELGIAN (test code = 69 eGFR NON-AFR. BELGIAN) [facility] [id number] 13:05:00 Test Item Value Reference Range Interpretation Comments eGFR (test code = eGFR 81 ) [facility] [id number] 13:05:00 Test Item Value Reference Range Interpretation Comments B/C Ratio (test code = B/C NOT APPLICABLE 01-08 Ratio) [facility] [id number] 13:05:00 Test Item Value Reference Range Interpretation Comments BUN (test code = BUN) 8 02-10 [facility] [id number] 13:05:00 Test Item Value Reference Range Interpretation Comments Creatinine Lvl (test code = Creatinine 0.83 0.60-0.93 Lvl) [facility] [id number] 13:05:00 Test Item Value Reference Range Interpretation Comments eGFR NON-AFR. BELGIAN (test code = 69 eGFR NON-AFR. BELGIAN) [facility] [id number] 13:05:00 Test Item Value Reference Range Interpretation Comments eGFR (test code = eGFR 81 ) [facility] [id number] 13:05:00 Test Item Value Reference Range Interpretation Comments B/C Ratio (test code = B/C NOT APPLICABLE 01-08 Ratio) [facility] [id number] 13:05:00 Test Item Value Reference Range Interpretation Comments BUN (test code = BUN) 8 02-10 [facility] [id number] 13:05:00 Test Item Value Reference Range Interpretation Comments Creatinine Lvl (test code = Creatinine 0.83 0.60-0.93 Lvl) [facility] [id number] 13:05:00 Test Item Value Reference Range Interpretation Comments eGFR NON-AFR. BELGIAN (test code = 69 eGFR NON-AFR. BELGIAN) [facility] [id number] 13:05:00 Test Item Value Reference Range Interpretation Comments eGFR (test code = eGFR 81 ) [facility] [id number] 13:05:00 Test Item Value Reference Range Interpretation Comments B/C Ratio (test code = B/C NOT APPLICABLE 01-08 Ratio) [facility], [facility]ST, WITH IV [id number] 10:03:00Unlisted Reason for Exam - Click Yes [...] Shankar MDReport VerifiedDate/Time: 04/26/2020 10:03:24 Reading Location: [facility] Diagnostic Imaging Reading Room - [place] [address] [address], [id number] 10:03:00Unlisted Reason for Exam - Click Yes [...] Shankar MDReport VerifiedDate/Time: 04/26/2020 10:03:24 Reading Location: [facility] Diagnostic Imaging Reading Room - [place] [address]9 -[id number] 09:03:00 Test Item Value Reference Range Interpretation Comments POC-CREATININE 0.8 mg/dL 0.6-1.3 : TESTED AT [facility] (BEAKER) ([facility] = 1859) A, [facility] 7 7030: Licensed Mortgage Loan Officer/Techni kylie ID = [id number] for [facility] ICA POC-EGFR 70 mL/min/1.73M2 (BEAKER) (test code = 1860) SARS-COV2/RT-PCR ([facility])2020-02-10 01:04:00 Test Item Value Reference Range Interpretation Comments SARS-COV2/RT-PCR (test code Negative Not Detected, Negative, = 4961801) See external report for linked test SARS-COV-2 PERFORMING LAB CPL (test code = 9332557) URINE [id number] 12:03:00 Test Item Value Reference Range Interpretation Comments CULTURE (BEAKER) (test >100,000 col/mL skin code = 1095) wendy HEMOGLOBIN AND [id number] 14:07:00 Test Item Value Reference Range Interpretation Comments HEMOGLOBIN (BEAKER) (test code = 7.5 GM/DL 11.2-15.7 L 410) HEMATOCRIT (BEAKER) (test code = 23.8 % 34.1-44.9 L 411) Licensed Mortgage Loan Officer ID - [id number] METABOLIC [id number] 07:06:00 Test Item Value Reference Range Interpretation [...] S NOT APPLICABLE FOR DIALYSIS PATIEN TS. Licensed Mortgage Loan Officer ID - [place] [id number] 07:03:00 Test Item Value Reference Range Interpretation Comments PHOSPHORUS (BEAKER) (test code = 3.7 mg/dL 2.3-4.7 604) Licensed Mortgage Loan Officer ID - [place] [id number] 07:03:00 Test Item Value Reference Range Interpretation Comments MAGNESIUM (BEAKER) (test code = 1.9 mg/dL 1.6-2.6 627) Licensed Mortgage Loan Officer ID - CHEOJACOB LHEMOGLOBIN AND [id number] 06:03:00 Test Item Value Reference Range Interpretation Comments HEMOGLOBIN (BEAKER) (test code = 7.3 GM/DL 11.2-15.7 L 410) HEMATOCRIT (BEAKER) (test code = 22.5 % 34.1-44.9 L 411) Licensed Mortgage Loan Officer ID - 6000BASIC METABOLIC [id number] 08:13:00 Test Item Value Reference Range Interpretation [...] S NOT APPLICABLE FOR DIALYSIS PATIEN TS. Licensed Mortgage Loan Officer ID - JULI [id number] 08:10:00 Test Item Value Reference Range Interpretation Comments MAGNESIUM (BEAKER) (test code = 1.9 mg/dL 1.6-2.6 627) Licensed Mortgage Loan Officer ID - JULI [id number] 08:10:00 Test Item Value Reference Range Interpretation Comments PHOSPHORUS (BEAKER) (test code = 4.2 mg/dL 2.3-4.7 604) Licensed Mortgage Loan Officer ID - NTPOperator ID - JULI CHEMOGLOBIN AND [id number] 05:10:00 Test Item Value Reference Range Interpretation Comments HEMOGLOBIN (BEAKER) (test code = 8.1 GM/DL 11.2-15.7 L 410) HEMATOCRIT (BEAKER) (test code = 24.3 % 34.1-44.9 L 411) Licensed Mortgage Loan Officer ID - [id number] 07:07:00 Test Item Value Reference Range Interpretation Comments PHOSPHORUS (BEAKER) (test code = 2.8 mg/dL 2.3-4.7 604) Licensed Mortgage Loan Officer ID - [place] [id number] 07:07:00 Test Item Value Reference Range Interpretation Comments MAGNESIUM (BEAKER) (test code = 1.6 mg/dL 1.6-2.6 627) Licensed Mortgage Loan Officer ID - [place] LBASIC METABOLIC [id number] 07:07:00 Test Item Value Reference Range Interpretation [...] S NOT APPLICABLE FOR DIALYSIS PATIEN TS. Licensed Mortgage Loan Officer ID - [place] LHEMOGLOBIN AND [id number] 06:28:00 Test Item Value Reference Range Interpretation Comments HEMOGLOBIN (BEAKER) (test code = 8.0 GM/DL 11.2-15.7 L 410) HEMATOCRIT (BEAKER) (test code = 24.6 % 34.1-44.9 L 411) Licensed Mortgage Loan Officer ID - [id number], CHEST, 1 VIEW, NON [id number] 18:35:00Reason for exam:->check PICC placementShould this be [...] in the lower lobes, likelyatelectasis. Signed: Manny [place] Verified Date/Time: 02/03/2020 18:35:36 Reading Location: [facility] Reading Room PHOSPHORUS 2020-02-03 07:55:00 Test Item Value Reference Range Interpretation Comments PHOSPHORUS (BEAKER) (test code = 2.4 mg/dL 2.3-4.7 604) Licensed Mortgage Loan Officer ID - DA [id number] 07:55:00 Test Item Value Reference Range Interpretation Comments MAGNESIUM (BEAKER) (test code = 1.7 mg/dL 1.6-2.6 627) Licensed Mortgage Loan Officer ID - DA FBASIC METABOLIC [id number] 07:55:00 Test Item Value Reference Range Interpretation [...] S NOT APPLICABLE FOR DIALYSIS PATIEN TS. Licensed Mortgage Loan Officer ID - DA FHEMOGLOBIN AND [id number] 06:56:00 Test Item Value Reference Range Interpretation Comments HEMOGLOBIN (BEAKER) (test code = 8.2 GM/DL 11.2-15.7 L 410) HEMATOCRIT (BEAKER) (test code = 24.2 % 34.1-44.9 L 411) Licensed Mortgage Loan Officer ID - [id number] AND [id number] 19:28:00 Test Item Value Reference Range Interpretation Comments HEMOGLOBIN (BEAKER) (test code = 8.3 GM/DL 11.2-15.7 L 410) HEMATOCRIT (BEAKER) (test code = 25.0 % 34.1-44.9 L 411) Licensed Mortgage Loan Officer ID - [id number] (HEMOGRAM ONLY)2020-02-02 05:09:00 Test [...] WBC 0-0 (BEAKER) (test code = 413) [id number] 04:19:00 Test Item Value Reference Range Interpretation Comments PHOSPHORUS (BEAKER) (test code = 1.9 mg/dL 2.3-4.7 L 604) Licensed Mortgage Loan Officer ID - PIAYA [id number] 04:19:00 Test Item Value Reference Range Interpretation Comments MAGNESIUM (BEAKER) (test code = 1.9 mg/dL 1.6-2.6 627) Licensed Mortgage Loan Officer ID - PIAYA LBASIC METABOLIC [id number] 04:19:00 Test Item Value Reference Range Interpretation [...] S NOT APPLICABLE FOR DIALYSIS PATIEN TS. Licensed Mortgage Loan Officer ID - PIAYA LHEMOGLOBIN AND [id number] 04:00:00 Test Item Value Reference Range Interpretation Comments HEMOGLOBIN (BEAKER) 5.9 GM/DL 11.2-15.7 LL [address] alfonzo candelaria per (test code = 410) bg#[id number] HEMATOCRIT (BEAKER) 18.0 % 34.1-44.9 L (test code = 411) Licensed Mortgage Loan Officer ID - [id number] [id number] 13:30:00Surgical Pathology Report Case: [id number] Authorizing Provider: Vita Henriquez MD Collected: 01/30/2020 09:40 AM Ordering Location: [facility] Received: 01/30/2020 10:59 AM SERVICES [...] DIAGNOSISJ. URINARY BLADDER, ANTERIOR PELVIC EXENTERATION: - U ROTHELIAL CARCINOMA, HIGH GRADE (WHO GRADE 3) WITH [...] THE TIP Signing Pathologist Direct Phone Line: [phone] signed by Reinaldo Matta MD on 02/01/2020 at 1:30 PMAll of the residual invasive tumor is of the plamacytoid/signet ring cell type. URINARY BLADDER: Cystectomy, Anterior Exenteration (Bladder - J)8th Edition - Protocol posted: 09/15/2018SPECIMENProcedure: Anterior exenteration TUMOR Tumor Site: Trigone Histologic [...] (pT): pT3a Regional Lymph Nodes (pN): pN0 10033 x [id number] X [id number] x [id number] diagnosis: Malignant neoplasm of the urinary bladder. [...] node serially sectioned. D. Received in formalin labeledwith the patient's name, accession number and "right [...] nodes; F2, one lymph node; F3, one l ymph node. G. Received in formalin labeled with [...] entirely submitted for frozen section as FSI. MH/plJ. Received in formalin labeled with the patient's [...] The endometrial cavity measures 1.5 cm from zgsxe-em-djnif and 3.5 cm in length. The endometrium [...] orifice; J14, hyperemic bladder mucosa; J15, trigone, business process representative section; J16, bladder wall with vagina; [...] surgical margin at distal tip; L2, additional business process representative sections from appendix and the mesoappendix. MH/plFROZEN SECTION DIAGNOSIS: FSH: URETER, LEFT DISTAL MARGIN: - NEGATIVE FOR MALIGNANCY This is informed by Dr. Aamro to Dr. Henriquez on January 29, at 11:19 a.m. FSI. RIGHT URETER, RIGHT DISTAL MARGIN: - NEGATIVE FOR MALIGNANCYThis is informed by Dr. Amaro to Dr. Henriquez on January 29 at 11:19 a.m.A-L Performed.HEMOGLOBIN AND [id number] 10:52:00 Test Item Value Reference Range Interpretation Comments HEMOGLOBIN (BEAKER) (test code = 7.1 GM/DL 11.2-15.7 L 410) HEMATOCRIT (BEAKER) (test code = 21.4 % 34.1-44.9 L 411) Licensed Mortgage Loan Officer ID - [id number] 06:15:00 Test Item Value Reference Range Interpretation Comments PHOSPHORUS (BEAKER) (test code = 2.5 mg/dL 2.3-4.7 604) Licensed Mortgage Loan Officer ID - PIAYA [id number] 06:15:00 Test Item Value Reference Range Interpretation Comments MAGNESIUM (BEAKER) (test code = 1.9 mg/dL 1.6-2.6 627) Licensed Mortgage Loan Officer ID - PIAYA LBASIC METABOLIC [id number] 06:15:00 Test Item Value Reference Range Interpretation [...] S NOT APPLICABLE FOR DIALYSIS PATIEN TS. Licensed Mortgage Loan Officer ID - PIAYA LHEMOGLOBIN AND [id number] 05:33:00 Test Item Value Reference Range Interpretation Comments HEMOGLOBIN (BEAKER) (test code = 7.0 GM/DL 11.2-15.7 L 410) HEMATOCRIT (BEAKER) (test code = 20.9 % 34.1-44.9 L 411) Licensed Mortgage Loan Officer ID - [id number] METABOLIC [id number] 05:02:00 Test Item Value Reference Range Interpretation [...] S NOT APPLICABLE FOR DIALYSIS PATIEN TS. Licensed Mortgage Loan Officer ID - [id number] 04:59:00 Test Item Value Reference Range Interpretation Comments PHOSPHORUS (BEAKER) (test code = 4.0 mg/dL 2.3-4.7 604) Licensed Mortgage Loan Officer ID - [id number] 04:59:00 Test Item Value Reference Range Interpretation Comments MAGNESIUM (BEAKER) (test code = 1.4 mg/dL 1.6-2.6 L 627) Licensed Mortgage Loan Officer ID - DBHEMOGLOBIN AND [id number] 04:41:00 Test Item Value Reference Range Interpretation Comments HEMOGLOBIN (BEAKER) (test code = 9.4 GM/DL 11.2-15.7 L 410) HEMATOCRIT (BEAKER) (test code = 27.9 % 34.1-44.9 L 411) Licensed Mortgage Loan Officer ID - [id number] METABOLIC [id number] 16:33:00 Test Item Value Reference Range Interpretation [...] S NOT APPLICABLE FOR DIALYSIS PATIEN TS. Licensed Mortgage Loan Officer ID - [id number] 16:29:00 Test Item Value Reference Range Interpretation Comments PHOSPHORUS (BEAKER) (test code = 5.0 mg/dL 2.3-4.7 H 604) Licensed Mortgage Loan Officer ID - [id number] 16:29:00 Test Item Value Reference Range Interpretation Comments MAGNESIUM (BEAKER) (test code = 1.2 mg/dL 1.6-2.6 L 627) Licensed Mortgage Loan Officer ID - BSCBC W/PLT COUNT & AUTO [id number] 16:14:00 Test Item Value Reference Range Interpretation [...] (BEAKER) (test code = 2801) BLOOD GAS, [id number] 16:08:00 Test Item Value Reference Range Interpretation [...] code = 1819) 100.0 % SODIUM NA-STAT [id number] 16:08:00 Test Item Value Reference Range Interpretation Comments SODIUM (BEAKER) (test code = 381) 133 meq/L 136-145 L GLUCOSE-STAT [id number] 16:08:00 Test Item Value Reference Range Interpretation Comments GLUCOSE RANDOM (BEAKER) (test code 224 mg/dL 70-110 H = 652) HGB/HCT (H&H) - STAT [id number] 16:08:00 Test Item Value Reference Range Interpretation Comments HEMOGLOBIN (BEAKER) (test code = 10.5 g/dL 12.0-15.0 L 410) HEMATOCRIT (BEAKER) (test code = 31.0 % 36.0-45.0 L 411) POTASSIUM-STAT [id number] 16:05:00 Test Item Value Reference Range Interpretation Comments POTASSIUM (BEAKER) (test code = 3.7 meq/L 3.6-5.5 379) CALCIUM, [id number] 14:59:00 Test Item Value Reference Range Interpretation Comments CALCIUM IONIZED (BEAKER) (test 1.07 mmol/L 1.12-1.27 L code = 698) PH, BLOOD (BEAKER) (test code = 7.29 1810) BLOOD GAS, [id number] 14:55:00 Test Item Value Reference Range Interpretation [...] = 1819) 60.0 % Temp 36.3CSODIUM NA-STAT [id number] 14:55:00 Test Item Value Reference Range Interpretation Comments SODIUM (BEAKER) (test code = 381) 134 meq/L 136-145 L Temp 36.3CGLUCOSE-STAT [id number] 14:55:00 Test Item Value Reference Range Interpretation Comments GLUCOSE RANDOM (BEAKER) (test code 226 mg/dL 70-110 H = 652) Temp 36.3CHGB/HCT (H&H) - STAT [id number] 14:55:00 Test Item Value Reference Range Interpretation Comments HEMOGLOBIN (BEAKER) (test code = 10.4 g/dL 12.0-15.0 L 410) HEMATOCRIT (BEAKER) (test code = 31.0 % 36.0-45.0 L 411) Temp 36.3CPOTASSIUM-STAT [id number] 14:51:00 Test Item Value Reference Range Interpretation Comments POTASSIUM (BEAKER) (test code = 3.8 meq/L 3.6-5.5 379) Temp 36.3CBLOOD GAS, [id number] 12:59:00 Test Item Value Reference Range Interpretation [...] (test code = 1819) 60.0 % TEMP-35.7CCALCIUM, [id number] 12:59:00 Test Item Value Reference Range Interpretation Comments CALCIUM IONIZED (BEAKER) (test 1.12 mmol/L 1.12-1.27 code = 698) PH, BLOOD (BEAKER) (test code = 7.37 1810) SODIUM NA-STAT [id number] 12:59:00 Test Item Value Reference Range Interpretation Comments SODIUM (BEAKER) (test code = 381) 133 meq/L 136-145 L TEMP-35.7CPOTASSIUM-STAT [id number] 12:59:00 Test Item Value Reference Range Interpretation Comments POTASSIUM (BEAKER) (test code = 3.4 meq/L 3.6-5.5 L 379) TEMP-35.7CGLUCOSE-STAT [id number] 12:59:00 Test Item Value Reference Range Interpretation Comments GLUCOSE RANDOM (BEAKER) (test code 193 mg/dL 70-110 H = 652) TEMP-35.7CHGB/HCT (H&H) - STAT [id number] 12:59:00 Test Item Value Reference Range Interpretation Comments HEMOGLOBIN (BEAKER) (test code = 8.1 g/dL 12.0-15.0 L 410) HEMATOCRIT (BEAKER) (test code = 24.0 % 36.0-45.0 L 411) TEMP-35.7CBLOOD GAS, [id number] 11:41:00 Test Item Value Reference Range Interpretation [...] code = 1819) 60.0 % SODIUM NA-STAT [id number] 11:41:00 Test Item Value Reference Range Interpretation Comments SODIUM (BEAKER) (test code = 381) 131 meq/L 136-145 L POTASSIUM-STAT [id number] 11:41:00 Test Item Value Reference Range Interpretation Comments POTASSIUM (BEAKER) (test code = 3.4 meq/L 3.6-5.5 L 379) GLUCOSE-STAT [id number] 11:41:00 Test Item Value Reference Range Interpretation Comments GLUCOSE RANDOM (BEAKER) (test code 176 mg/dL 70-110 H = 652) HGB/HCT (H&H) - STAT [id number] 11:41:00 Test Item Value Reference Range Interpretation Comments HEMOGLOBIN (BEAKER) (test code = 9.2 g/dL 12.0-15.0 L 410) HEMATOCRIT (BEAKER) (test code = 27.0 % 36.0-45.0 L 411) CALCIUM, [id number] 11:41:00 Test Item Value Reference Range Interpretation Comments CALCIUM IONIZED (BEAKER) (test 1.08 mmol/L 1.12-1.27 L code = 698) PH, BLOOD (BEAKER) (test code = 7.33 1810) PH, [id number] 11:38:00 Test Item Value Reference Range Interpretation Comments PH ARTERIAL (BEAKER) (test code = 383) 7.35 7.35-7.45 POTASSIUM-STAT [id number] 09:51:00 Test Item Value Reference Range Interpretation Comments POTASSIUM (BEAKER) (test code = 2.3 meq/L 3.6-5.5 LL 379) TEMP-34.8CALCIUM, [id number] 09:50:00 Test Item Value Reference Range Interpretation Comments CALCIUM IONIZED (BEAKER) (test 1.03 mmol/L 1.12-1.27 L code = 698) PH, BLOOD (BEAKER) (test code = 7.40 1810) BLOOD GAS, [id number] 09:49:00 Test Item Value Reference Range Interpretation [...] code = 1819) 60.0 % TEMP-34.8SODIUM NA-STAT [id number] 09:49:00 Test Item Value Reference Range Interpretation Comments SODIUM (BEAKER) (test code = 381) 130 meq/L 136-145 L TEMP-34.8GLUCOSE-STAT [id number] 09:49:00 Test Item Value Reference Range Interpretation Comments GLUCOSE RANDOM (BEAKER) (test code 119 mg/dL 70-110 H = 652) TEMP-34.8HGB/HCT (H&H) - STAT [id number] 09:49:00 Test Item Value Reference Range Interpretation Comments HEMOGLOBIN (BEAKER) (test code = 11.6 g/dL 12.0-15.0 L 410) HEMATOCRIT (BEAKER) (test code = 34.0 % 36.0-45.0 L 411) TEMP-34.8CBC W/PLT COUNT & AUTO [id number] 07:16:00 Test Item Value Reference Range Interpretation [...] 0-1 PERCENT (BEAKER) (test code = 2801) [id number] 14:45:00Medical Cytology Report Case: [id number] Authorizing Provider: Vita Henriquez MD Collected: 01/18/2020 02:09 PM Ordering Location: [facility] Received: 01/18/2020 03:29 PM SERVICES Pat hologist: Reinaldo Matta MD Specimen: Urine, Bladder Wash URINE, BLADDER WASHING (CYTOSPINS): - NEGATIVE FOR MALIGNANCY Signing Pathologist Direct Phone Line: [phone] signed by Reinaldo Matta MD on 01/19/2020 at 2:45 [id number] risk 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 who presents for restaging TURBT prior to RCURINE, BLADDER PJRVMEC65 mls colorless fluid; 4 cytospinsCollected: [id number]: [id number] [facility], Department of Pathology, [address] [place] [address], [facility], [facility] of [facility]ology, [address] [place] [address], [facility], [address] [place] [address], WPSZID [id number] 13:07:00Surgical Pathology Report Case: [id number] Authorizing Provider: Vita Henriquez MD Collected: 01/18/2020 02:31 PM Ordering Location: [facility] Received: 01/18/2020 03:17 PM SERVICES [...] FOR MALIGNANCY Signing Pathologist Direct Phone Line: [phone] signed by Reinaldo Matta MD on 01/19/2020 at 1:07 PM90% of this tumor shows the plasmacytoid morphology as documented on a previous biopsy.39788 x 5 Malignant neoplasm of overlapping sites [...] submitted in toto in A1.JONATHAN Santizo (ASCP)cmPerformed.CYTOLOGY [id number] 17:00:00 Test Item Value Reference Range Interpretation Comments CYTOLOGY RESULT POINTER See Separate Report (BEAKER) (test code = 2629) ANG, TUNNEL CATH CENTRAL INS W/PORT [id number] 15:29:00Reason for Exam:- >malignant neoplasm of overlapping sites of bladderFINAL REPORT PROCEDURE: Venous port placement Procedural PersonnelAttending phys ician(s): Madalyn Nicole MDFekirk physician(s): ONEYDA Rubioesidensharee physician(s): NonePrimary Licensed Mortgage Loan Officer(s): Neema Samano MD Pre-procedure diagnosis: Bladder cancerPost-procedure [...] permanent image was stored.Port placed: BardCatheter size (Qatari): 6Catheter flush: Heparin (100 units/mL) ClosureThe access [...] than 10Standardized report: SIR_Port_v3 AttestationSigner name: Madalyn NicoleMomo attest that I was present for the entire procedure. I reviewed the stored images and agree with the report as written. Signed: Madalyn Nicole MDReport Verified Date/Time: 11/01/2019 15:29:20 Reading Location: [place] [address] Angio Body Reading Room APTT 2019-11-01 10:22:00 Test Item Value Reference Range Interpretation Comments PARTIAL THROMBOPLASTIN TIME 29.5 seconds 22.5-36.0 (BEAKER) (test code = 760) PROTHROMBIN TIME/[id number] 10:21:00 Test Item Value Reference Range Interpretation [...] mechanical heart valves.CBC W/PLT COUNT & AUTO [id number] 09:53:00 Test Item Value Reference Range Interpretation [...] code = 2801) CT, CHEST, WITH IV [id number] 13:26:00FINAL REPORT CT Chest with contrast History:Malignant neoplasm of bladder Comparison:none Technique: serial axial imaging was performed following up to 100cc of non ionic iodinatedintravenous contrast as per departmental protocol. Multiplanar images [...] MDReport Verified Date/Time: 10/27/2019 13:26:23 Reading Location: [facility] B1 C013X OrthoConsult Reading Room UE [id number] 14:52:00Surgical Pathology Report Case: [id number] Authorizing Provider: Vita Henriquez MD Collected: 10/14/2019 09:26 AM Ordering Location: [facility] Received: 10/14/2019 11:24 AM SERVICES Pathologist: Reinaldo Matta MD Specimens: A) - Bladder Biopsy, Right Wall, right posteriorlateral wall blue light positive B) - Bladder Biopsy, Right Wall, right lateral wall C) - Bladder Biopsy, Right Wall, right anterior wall, blue light positive D) - Bladder Biopsy, dome, blue light posit libby E) - Bladder Biopsy, posterior midline, blue [...] CHANGE SEEN Signing Pathologist Direct Phone Line: [phone] signed by Reinaldo Matta MD on 10/17/2019 at 2:52 PMThetumor is 90% of the plasmacytoid type. No surface CIS is seen on any of the slides. It would be important in this case to consider the possibility of metastatic breast carcinoma which can mimic plasmacytoid variant of urothelial cancer, especially since there is no associated urothelial carcinoma in situ in this case. [id number] X 7, [id number] diagnosis: Malignant neoplasm of overlapping sites of [...] submitted in H2. PA/pl Performed.RAD, CHEST, 2 [id number] 09:24:00 Reason for Exam:->C67.8FINAL REPORT CHEST RADIOGRAPH [...] MDReport Verified Date/Time: 10/13/2019 09:24:28 Reading Location: [facility] Reading Room [address] [place] [address] CT, [id number] 16:53:00CT UROGRAMFINAL REPORT CT of the abdomen [...] Bianchi Verified Date/Time: 10/12/2019 16:53:35 Reading Location: [address] Consult Reading Room
[2023-04-21] MEDS ORDERED: MORPHINE 2 MG/ML SYR ONE (11:28)
--- NOTE | 2023-04-21 11:47 | RAD REPORT ---
EXAM DESCRIPTION: Shoulder Right 2 View - 04/21/2023 11:05 am CLINICAL HISTORY: PAIN COMPARISON: Shoulder Right 2 View dated 10/23/2022 TECHNIQUE: Internal and external rotation views of the right shoulder were obtained. FINDINGS: Displaced, impacted, proximal humeral fracture with volar apex angulation. AC joint shows moderate degenerative changes. No acute or suspicious findings. IMPRESSION: Displaced impacted proximal humerus fracture as above.
--- NOTE | 2023-04-21 11:52 | RAD REPORT ---
EXAM DESCRIPTION: CT - CTHCSPWOC - 04/21/2023 10:57 am CLINICAL HISTORY: TRAUMA COMPARISON: Head C Spine Mpr Wo Con dated 04/18/2023; Neck Angio dated 07/15/2022; Head C Spine Mpr W o Con dated 04/23/2022; Head C Spine Mpr Wo Con dated 03/26/2022 TECHNIQUE: Axial thin cut noncontrast CT images of the head were obtained. Axial thin cut noncontrast CT images of the cervical spine were obtained. Multiplanar reformatted images were generated and reviewed. All CT scans are performed using dose optimization technique as appropriate and may include automated exposure control or mA/KV adjustment according to patient size. FINDINGS: CT HEAD WITHOUT CONTRAST: No acute hemorrhage, hydrocephalus or extra-axial collection is identified.Mild periventricular and d eep white matter hypodensities, nonspecific, but suggestive of chronic small vessel ischemic changes. No areas of brain edema or midline shift. The paranasal sinuses and mastoids are clear.The calvarium is intact. CT CERVICAL SPINE WITHOUT CONTRAST: No fracture or subluxation.No prevertebral soft tissues swelling is identified. Stable multilevel mil u-eu-teartfds degenerative changes. Bulky appearance of the thyroid lobes, larger on the left, stable , without discrete dominant nodules. IMPRESSION: No acute traumatic intracranial or cervical spine findings. Stable chronic findings as a catalina.
[2023-04-21] MEDS ORDERED: NA CHLORIDE 0.9% 1,000 ML ONE (12:00)
--- NOTE | 2023-04-21 13:01 | ER ---
Nurse's Notes [facility] Name: Marily Gonsales Age: 77 yrs Sex: Female : 1945 Arrival Date: 04/21/2023 Time: 10:33 Bed 20 Private MD: Diagnosis: Mechanical fall;Fracture of right proximal humerus Presentation: 04/21 10:40 Chief complaint: EMS states: fall from standing with right shoulder pain. Coronavirus cp4 screen: Client denies travel out of the [place] in the last 14 days. At this time, the client does not indicate any symptoms associated with coronavirus-19. Ebola Screen: Patient negative for fever greater than or equal to 101.5 degrees Fahrenheit, and additional compatible Ebola Virus Disease symptoms Patient denies exposure to infectious person. Patient denies travel to an Ebola-affected area in the 21 days before illness onset. No symptoms or risks identified at this time. 10:40 Method Of Arrival: EMS: [facility] cp4 10:40 Initial Sepsis Screen: Does the patient meet any 2 criteria? No. Patient's initial cp4 sepsis screen is negative. Does the patient have a suspected source of infection? No. Patient's initial sepsis screen is negative. Risk Assessment: Do you want to hurt yourself or someone else? Patient reports no desire to harm self or others. Onset of symptoms was April 21, 2023. 10:40 Acuity: CORI 4 cp4 Triage Assessment: 10:40 General: Appears in no apparent distress. Behavior is calm, cooperative, appropriate cp4 for age. Pain: Complains of pain in right arm. Injury Description: contusion to the right shoulder. Historical: - Allergies: 10:40 Sulfa (Sulfonamide Antibiotics); cp4 - PMHx: 10:40 Bladder cancer; CHF; COPD; Hypothyroidism; Hypertension; Neurogenic Bladder (Pt self cp4 caths); - PSHx: 10:40 Bladder; section; cp4 - Immunization history:: Adult Immunizations up to date. - Social history:: Smoking status: Patient denies any tobacco usage or history of. Screenin:41 [facility] ED Fall Risk Assessment (Adult) History of falling in the last 3 months, cp4 including since admission Yes- fall prone (multiple falls) (3 pts) Confusion or Disorientation No (0 pts) Intoxicated or Sedated No (0 pts) Impaired Gait Yes (1 pt) Mobility Assist Device Used No (0 pt) Altered Elimination No (0 pt) Score/Fall Risk Level 3 or more points = High Risk Oriented to surroundings, Maintained a safe environment, Educated pt \T\ family on fall prevention, incl call for assistance when getting out of bed, Hourly rounding (assess needs \T\ fall precautionary measures) done. Abuse screen: Denies threats or abuse. Nutritional screening: No deficits noted. Tuberculosis screening: No symptoms or risk factors identified. Assessment: 10:41 General: Appears in no apparent distress. Behavior is calm, cooperative, appropriate cp4 for age. Injury Description: contusion to the right shoulder. 13:45 General: Called report to Mirian at [facility]. Daughter Amanda providing me1 transportation back to [facility] and Amanda agreed to call Dr Shepard for f/u appt. Mirian is aware. . Vital Signs: 10:40 BP 140 / 68; Pulse 44; Resp 16; Temp 98.4; Pulse Ox 98% ; Weight 65.32 kg; Pain 7/10; cp4 11:00 BP 108 / 57; Pulse 40; Resp 16; Pulse Ox 99% ; cp4 11:38 BP 74 / 45; Pulse 38; Resp 16; Pulse Ox 99% ; cp4 12:07 BP 140 / 73; Pulse 42; Resp 16; Pulse Ox 99% ; cp4 13:48 BP 101 / 59; Pulse 48; Resp 17; Pulse Ox 99% on R/A; me1 10:40 Pain Scale: Adult cp4 ED Course: 10:35 Patient arrived in ED. rt 10:36 Brett Telles MD is Attending Physician. rt 10:40 Arm band placed on left wrist. Patient placed in the treatment room. cp4 10:41 Bed in low position. Call light in reach. Side rails up X2. cp4 10:41 No provider procedures requiring assistance completed. cp4 10:41 Inserted saline lock: 22 gauge in left antecubital area, using aseptic technique. cp4 10:46 Sarah Vargas is Primary Nurse. cp4 10:52 daughter, . bd 10:59 CT Head C Spine In Process Unspecified. EDMS 11:07 Shoulder Right (2 View) XRAY In Process Unspecified. EDMS 11:23 Triage completed. cp4 13:00 Isidro Shepard MD is Referral Physician. rt 13:46 IV discontinued, intact, bleeding controlled, No redness/swelling at site. Pressure me1 dressing applied. 13:48 Provided Education on: Discharge instructions. DaughterAmanda, verbalized me1 understanding and agreement. . Administered Medications: 11:18 Drug: morphine IVP or IV 2 mg IVP once over 4 mins Route: IVP; Infused Over: 4 mins; cp4 Site: left antecubital; 11:27 Follow up: Response: No adverse reaction cp4 11:50 Drug: NS 0.9% IV 1000 ml IV at 1 bolus Per protocol; 1000 mL bolus Route: IV; Rate: 1 cp4 bolus; Site: left antecubital; 13:12 Follow up: IV Status: Completed infusion; IV Intake: 1000ml me1 13:20 Drug: [place] PO 5 mg-325 mg 1 tabs PO once Route: PO; me1 13:44 Follow up: Response: No adverse reaction; Pain is decreased me1 Medication: 10:41 VIS not applicable for this client. cp4 Intake: 13:12 IV: 1000ml; Total: 1000ml. me1 Outcome: 13:00 Discharge ordered by MD. rt 13:47 Discharged to [facility]. Transportation provided by Amanda carlos. me1 13:47 Condition: stable 13:47 Discharge instructions given to patient, family, Instructed on discharge instructions, follow up and referral plans. medication usage, Demonstrated understanding of instructions, follow-up care, medications, Prescriptions given X 1, 13:49 Patient left the ED. me1 Signatures: Dispatcher [employer] EDNC Na Acuna Ryan, MD MD rt Sole Knutson RN RN me1 Sarah Vargas cp4
--- NOTE | 2023-04-21 13:01 | EDPHYS ---
Physician Documentation [facility] Name: Marily Gonsales Age: 77 yrs Sex: Female : 1945 Arrival Date: 04/21/2023 Time: 10:33 Bed 20 Private MD: ED Physician Brett Telles HPI: 04/21 10:43 This 77 yrs old Female presents to ER via Unassigned with complaints of Fall, shoulder rt pain. 10:43 Patient presents to the ED with mechanical fall. She denies syncopal event. She did rt land on her right shoulder causing pain to that area. Pain is worse with movement. She denies pain to other extremities. She did hit her head, is unclear if she lost consciousness or not. Denies other acute complaints at this time, symptoms are moderate severity, aching nature, nonradiating, no other aggravating elevating factors.. Historical: - Allergies: 10:40 Sulfa (Sulfonamide Antibiotics); cp4 - PMHx: 10:40 Bladder cancer; CHF; COPD; Hypothyroidism; Hypertension; Neurogenic Bladder (Pt self cp4 caths); - PSHx: 10:40 Bladder; section; cp4 - Immunization history:: Adult Immunizations up to date. - Social history:: Smoking status: Patient denies any tobacco usage or history of. ROS: 10:43 Constitutional: Negative for fever, chills, and weight loss, Cardiovascular: Negative rt for chest pain, palpitations, and edema, Respiratory: Negative for shortness of breath, cough, wheezing, and pleuritic chest pain, Abdomen/GI: Negative for abdominal pain, nausea, vomiting, diarrhea, and constipation, Skin: Negative for injury, rash, and discoloration, Neuro: Negative for headache, weakness, numbness, tingling, and seizure, Psych: Negative for depression, anxiety, suicide ideation, homicidal ideation, and hallucinations, 10:43 MS/extremity: Positive for contusion, pain, Exam: 10:43 Constitutional: This is a well developed, well nourished patient who is awake, alert, rt and in no acute distress. Head/Face: Normocephalic, atraumatic. Chest/axilla: Normal chest wall appearance and motion. Nontender with no deformity. No lesions are appreciated. Cardiovascular: Regular rate and rhythm with a normal S1 and S2. No gallops, murmurs, or rubs. Normal PMI, no JVD. No pulse deficits. Respiratory: Lungs have equal breath sounds bilaterally, clear to auscultation and percussion. No rales, rhonchi or wheezes noted. No increased work of breathing, no retractions or nasal flaring. Abdomen/GI: Soft, non-tender, with normal bowel sounds. No distension or tympany. No guarding or rebound. No evidence of tenderness throughout. Skin: Warm, dry with normal turgor. Normal color with no rashes, no lesions, and no evidence of cellulitis. Neuro: Awake and alert, GCS 15, oriented to person, place, time, and situation. Cranial nerves II-XII grossly intact. Motor strength 5/5 in all extremities. Sensory grossly intact. Cerebellar exam normal. Normal gait. Psych: Awake, alert, with orientation to person, place and time. Behavior, mood, and affect are within normal limits. 10:43 Musculoskeletal/extremity: Tenderness to the right shoulder, no deformities noted, pulses, motor, sensation intact, no other swelling, deformity, tenderness to 4 extremities.. Vital Signs: 10:40 BP 140 / 68; Pulse 44; Resp 16; Temp 98.4; Pulse Ox 98% ; Weight 65.32 kg; Pain 7/10; cp4 11:00 BP 108 / 57; Pulse 40; Resp 16; Pulse Ox 99% ; cp4 11:38 BP 74 / 45; Pulse 38; Resp 16; Pulse Ox 99% ; cp4 12:07 BP 140 / 73; Pulse 42; Resp 16; Pulse Ox 99% ; cp4 13:48 BP 101 / 59; Pulse 48; Resp 17; Pulse Ox 99% on R/A; me1 10:40 Pain Scale: Adult cp4 MDM: 10:35 Patient medically screened. rt 13:07 Differential Diagnosis Fracture, contusion, dislocation, intracranial hemorrhage. Data rt reviewed: vital signs, nurses notes, radiologic studies. Consideration of Admission/Observation Escalation of care including admission/observation considered. Patient without syncopal event, proximal humerus fractures identifiable injury, to be managed as an outpatient.. I considered the following discharge prescriptions or medication management in the emergency department Medications were administered in the Emergency Department. See MAR. Independent interpretation of the following test(s) in the Emergency Department X-Ray: My interpretation is Fracture seen on interpretation of the x-ray images. Test considered but Not performed: EKG: Denies syncopal symptoms, EKG not needed. Care significantly affected by the following chronic conditions: Congestive Heart Failure. Counseling: I had a detailed discussion with the patient and/or guardian regarding the historical points, exam findings, and any diagnostic results supporting the discharge/admit diagnosis, radiology results, the need for outpatient follow up, to return to the emergency department if symptoms worsen or persist or if there are any questions or concerns that arise at home. Special discussion: I discussed with the patient/guardian in detail that at this point there is no indication for admission to the hospital. It is understood, however, that if the symptoms persist or worsen the patient needs to return immediately for re-evaluation. Based on the history and exam findings, there is no indication for further emergent testing or inpatient evaluation. I discussed with the patient/guardian the need to see the orthopedic surgeon for further evaluation of the symptoms. ED course: Patient with brief hypotension following morphine, resolved, patient observed for period of time without recurrence of hypotension.. 04/21 10:36 Order name: CT Head C Spine; Complete Time: 11:53 rt 04/21 10:36 Order name: Shoulder Right (2 View) XRAY; Complete Time: 11:53 rt 04/21 11:09 Order name: Sling; Complete Time: 11:47 rt Administered Medications: 11:18 Drug: morphine IVP or IV 2 mg IVP once over 4 mins Route: IVP; Infused Over: 4 mins; cp4 Site: left antecubital; 11:27 Follow up: Response: No adverse reaction cp4 11:50 Drug: NS 0.9% IV 1000 ml IV at 1 bolus Per protocol; 1000 mL bolus Route: IV; Rate: 1 cp4 bolus; Site: left antecubital; 13:12 Follow up: IV Status: Completed infusion; IV Intake: 1000ml me1 13:20 Drug: [place] PO 5 mg-325 mg 1 tabs PO once Route: PO; me1 13:44 Follow up: Response: No adverse reaction; Pain is decreased me1 Disposition Summary: 04/21/23 13:00 Discharge Ordered Notes: Location: Home rt Problem: new rt Symptoms: have improved rt Condition: Stable rt Diagnosis - Mechanical fall rt - Fracture of right proximal humerus rt Followup: rt - With: Isidro Shepard MD - When: 5 - 6 days - Reason: Followup: rt - With: Emergency Department - When: As needed - Reason: Worsening of condition Discharge Instructions: - Discharge Summary Sheet rt - Humerus Fracture Treated With Immobilization rt Forms: - Medication Reconciliation Form rt - Thank You Letter rt - Antibiotic Education rt - Prescription Opioid Use rt - Patient Portal Instructions rt - Leadership Thank You Letter rt Signatures: Dispatcher [employer] Brett Han MD MD rt Sole Knutson, RN RN me1 Sarah Vargas 4
[2023-04-21] MEDS ORDERED: HYDROCODONE/APAP 5/325 MG TAB ONE (13:28)
[2023-04-21 13:55] VITALS: TEMP 98.4
[2023-04-21 13:56] VITALS: O2SAT 99
[2023-04-21 13:59] VITALS: BP 101/59
== END 2023-04-21 13:49 | disposition home or self-care (01) ==
LOC: ER 10:33
DX: S42.201A Unspecified fracture of upper end of right humerus, initial encounter for closed fracture (principal); W18.30XA Fall on same level, unspecified, initial encounter; Z88.2 Allergy status to sulfonamides; Z85.51 Personal history of malignant neoplasm of bladder; I10 Essential (primary) hypertension
CPT/HCPCS: 96361; 70450; 72125; 73030; 96374; 99284; J2270; J7030

== ENCOUNTER 2024-07-28 10:22 | Emergency (ER) | payer OTHER, BC ==
[2024-07-28 11:33] LABS: Absolute Basophils 0.1 K/uL (0-0.5); Absolute Eosinophils 0.2 K/uL (0-0.5); Absolute Lymphocytes (CBC) 1.7 K/uL (0.7-4.9); Absolute Monocytes 0.9 K/uL (0.1-1.3); Basophils % 0.8 % (0-1.3); Eosinophils % 2.3 % (0-4.4); Hematocrit 38.3 % (36.0-45.0); Hemoglobin 12.3 g/dL (12.0-15.0); Lymphocytes % 22.2 % (15.3-44.8); MCH 27.3 pg (27.0-35.0); MCHC 32.1 g/dL (32.0-36.0); MPV 8.2 fL (7.6-11.3); Neutrophils % 63.7 % (41.7-73.7); Nucleated Red Blood Cells % 0.1 % (0-0); Platelets 229 thou/uL (152-406); Red Cell Distribution Width 15.5 % (12.1-15.2)
[2024-07-28 11:41] LABS: PT Prothrombin Time 16.6 SECONDS (9.4-12.5); PTT, Activated Partial Thromb 32.1 SECONDS (24.3-36.9); Protime INR 1.5
--- NOTE | 2024-07-28 11:45 | RAD REPORT ---
EXAM: CT CHEST, ABDOMEN AND PELVIS WITHOUT CONTRAST CLINICAL INDICATION: Female, 78 years old. [facility] fall, on eliquis, pain to head/back TECHNIQUE: CT chest, abdomen and pelvis was performed, without IV contrast, as per department protoco l. Axial, sagittal and coronal reconstructions were obtained. One or more of the following dose reduction techniques were used: Automated exposure control, adjustment of the mA and/or kV according to the patient size, and/or iterative reconstruction. Unless otherwise specified, incidental findings do not require dedicated imaging follow-up. COMPARISON: 06/02/2022 CT abdomen and pelvis FINDINGS: The lack of intravenous contrast limits the sensitivity of this exam for evaluation of solid visceral organs, vascular structures, and retroperitoneum. Chest: LOWER NECK/CHEST WALL: Bulky appearance of the left thyroid lobe, stable, with no discrete nodules vi sualized on CT LUNGS AND AIRWAYS: Airways are clear. No evidence of airspace or interstitial process. No nodules. PLEURA: No pleural effusion. No pneumothorax. Hemidiaphragms are normally positioned. MEDIASTINUM AND LYMPH NODES: No mediastinal mass or fluid collection. Normal size mediastinal, hilar, and axillary lymph nodes. THORACIC AORTA: Normal caliber and configuration. PULMONARY ARTERIES: Normal caliber. HEART: Unremarkable. Abdomen/Pelvis LIVER: Normal in size and contour. No focal lesion. GALLBLADDER/BILE DUCTS: Small calculus at the gallbladder neck. No intra or extrahepatic biliary duct al dilation. PANCREAS: No mass, ductal dilation, or apty-pancreatic fluid. SPLEEN: Normal size. No focal lesion. ADRENALS: Normal; no mass. KIDNEYS AND URETERS: Normal size and contour. No hydronephrosis. GASTROINTESTINAL TRACT: Stomach is non-dilated. Small bowel has normal course and caliber. No colonic wall thickening or pericolonic inflammatory changes. PERITONEUM: No free fluid. LYMPH NODES: No lymphadenopathy. ABDOMINAL AORTA AND OTHER VESSELS: Normal caliber aorta and IVC. URINARY BLADDER: Status post cystectomy. Sequelae of neobladder construction again noted. REPRODUCTIVE ORGANS: No pathologic process. MUSCULOSKELETAL: No acute or suspicious osseous abnormality. ADDITIONAL FINDINGS: Diastasis recti IMPRESSION: No evidence of traumatic or other acute abnormalities in the chest, abdomen, or pelvis. Stable findings as above, including cholelithiasis.
--- NOTE | 2024-07-28 11:49 | RAD REPORT ---
EXAM: CT brain without contrast HISTORY: fall, on eliquis, pain to head/back/abdomen/pelvis COMPARISON: 04/21/2023 TECHNIQUE: Multiple contiguous axial images were obtained and a CT of the brain without contrast. Sag ittal and coronal reformats were performed. FINDINGS: No evidence of hydrocephalus, intracranial hemorrhage, or extra-axial fluid collection. Mild brain atrophy with mild periventricular and deep white matter chronic microvascular ischemic ch anges present. The calvarium is intact. The visualized paranasal sinuses and mastoid air cells are essentially clear . IMPRESSION: No evidence of acute intracranial abnormality. EXAM: CT of the cervical spine without contrast HISTORY: fall, on eliquis, pain to head/back/abdomen/pelvis COMPARISON: None TECHNIQUE: Multiple contiguous axial images were obtained in a CT of the cervical spine without contr ast. Sagittal and coronal reformats were performed. FINDINGS: The vertebral bodies demonstrate normal height and alignment. Straightening of the normal c ervical lordosis consistent, could be positional or secondary to muscle spasm. No evidence of acute fracture or subluxation.. Multilevel degenerative changes, stable, contributing to up to moderate deg lino of neural foraminal narrowing on the right at C5-6 and bilaterally at C3-4. No prevertebral soft tissue swelling is seen. The posterior facets are well aligned. Normal alignment of the skull base with the cervical spine is seen. The lung apices are unremarkable. Bulky appearance of the left thyroid lobe again seen. IMPRESSION: No evidence of acute osseous abnormality of the cervical spine. Stable multilevel degenerative change s as above.
--- NOTE | 2024-07-28 11:55 | EDPHYS ---
Physician Documentation [facility] Name: Marily Gonsales Age: 78 yrs Sex: Female : 1945 Arrival Date: 07/28/2024 Time: 10:22 Bed 16 Private MD: ED Physician Rosalio Glaser HPI: 07/28 11:49 This 78 yrs old Female presents to ER via EMS with complaints of Fall Injury - 2 days rn ago. 11:49 Details of fall: The patient fell from an upright position. Onset: The symptoms/episode rn began/occurred 2 day(s) ago. Associated injuries: The patient sustained injury to the head, upper back injury. Severity of symptoms: At their worst the symptoms were mild, in the emergency department the symptoms are unchanged. The patient has not experienced similar symptoms in the past. Patient [facility] by [facility] after fall while in the squatted position 2 days ago. Patient on Eliquis and hit back of head. No known LOC. Reports pain to back of head and to mid back.. Historical: - Allergies: 10:30 Sulfa (Sulfonamide Antibiotics); cm10 - PMHx: 10:30 Bladder cancer; CHF; COPD; Hypertension; Hypothyroidism; Neurogenic Bladder (Pt self cm10 caths); - PSHx: 10:30 Bladder; section; cm10 - Immunization history:: Adult Immunizations up to date. - Infectious Disease History:: Denies. - Social history:: Smoking status: Patient denies any tobacco usage or history of. - Family history:: not pertinent. - Hospitalizations: : No recent hospitalization is reported. ROS: 11:50 Constitutional: Negative for fever, chills, and weight loss, Eyes: Negative for injury, rn pain, redness, and discharge, Neck: Negative for injury, pain, and swelling, Cardiovascular: Negative for chest pain, palpitations, and edema, Respiratory: Negative for shortness of breath, cough, wheezing, and pleuritic chest pain, Abdomen/GI: Positive for mild lower abdominal pain Back: Positive for mid back pain MS/Extremity: Patient denies injury to hip or pain to lower extremities. Neuro: Positive for mild left posterior head pain, negative for new neurological symptoms. Exam: 11:50 Constitutional: This is a well developed, well nourished patient who is awake, alert, rn and in no acute distress. Head/Face: Normocephalic, atraumatic. Eyes: Pupils equal round and reactive to light, extra-ocular motions intact. Lids and lashes normal. Conjunctiva and sclera are non-icteric and not injected. Cornea within normal limits. Periorbital areas with no swelling, redness, or edema. Neck: No midline cervical tenderness Chest/axilla: No rib tenderness or crepitus noted Cardiovascular: Regular rate and rhythm. No pulse deficits. Abdomen/GI: Soft, non-tender Back: No spinal tenderness MS/ Extremity: Pulses equal, no cyanosis. No painful range of motion of either hip. No gross deformity of lower extremities or focal tenderness. Both legs are in cushions/boots to prevent pressure ulcerations and exhibits muscle wasting bilateral lower extremities Neuro: Awake and alert, GCS 15 Vital Signs: 10:29 BP 121 / 67; Pulse 59; Resp 15; Temp 98.6; Pulse Ox 98% ; Pain 3/10; cm10 11:45 BP 116 / 67; Pulse 60; Resp 15; Pulse Ox 98% ; cm10 13:00 BP 123 / 71; Pulse 62; Resp 15; Pulse Ox 98% ; cm10 10:29 Pain Scale: Adult cm10 MDM: 10:30 Medical Screening Exam initiated rn 11:53 Differential diagnosis: closed head injury, contusion, fracture, sprain, strain. Data rn reviewed: vital signs, nurses notes, lab test result(s), radiologic studies, CT scan, and as a result, I will discharge patient. Counseling: I had a detailed discussion with the patient and/or guardian regarding the historical points, exam findings, and any diagnostic results supporting the discharge/admit diagnosis, lab results, radiology results, the need for outpatient follow up, to return to the emergency department if symptoms worsen or persist or if there are any questions or concerns that arise at home. Special discussion: I discussed with the patient/guardian in detail that at this point there is no indication for admission to the hospital. It is understood, however, that if the symptoms persist or worsen the patient needs to return immediately for re-evaluation. ED course: No acute traumatic findings of the head/neck/back/chest/abdomen or pelvis.. 07/28 10:37 Order name: CBC with Diff; Complete Time: 11:52 rn 07/28 10:37 Order name: Basic Metabolic Panel; Complete Time: 11:52 rn 07/28 10:37 Order name: Protime (+inr); Complete Time: 11:52 rn 07/28 10:37 Order name: Ptt, Activated; Complete Time: 11:52 rn 07/28 10:41 Order name: Chest Abd Pelvis Wo Con; Complete Time: 11:52 EDMS 07/28 10:41 Order name: Head C Spine Mpr Wo Con; Complete Time: 11:52 EDMS 07/28 10:37 Order name: IV Start; Complete Time: 11:23 rn Administered Medications: 13:05 Drug: Acetaminophen PO 650 mg PO once Route: PO; cm10 13:35 Follow up: Response: No adverse reaction cm10 Disposition Summary: 07/28/24 11:54 Discharge Ordered Notes: Location: Home rn Problem: new rn Symptoms: have improved rn Condition: Stable rn Diagnosis - Fall on same level, unspecified rn - Unspecified injury of head, initial encounter rn - Contusion of back wall of thorax rn Followup: rn - With: Private Physician - When: As needed - Reason: Recheck today's complaints, Re-evaluation by your physician Discharge Instructions: - Discharge Summary Sheet rn - Contusion rn - Head Injury, Adult rn Forms: - Medication Reconciliation Form rn - Antibiotic rn internal medicine - Prescription Opioid Use rn - Patient Portal Instructions rn - Leadership Thank You Letter rn Signatures: Dispatcher [employer] Rosalio Talamantes MD MD rn Martinez, Clarissa, RN RN cm10 Corrections: (The following items were deleted from the chart) 10:39 10:37 Head C Spine Cap Wo Con+CT.RAD.BRZ ordered. [facility] ED
--- NOTE | 2024-07-28 11:55 | ER ---
Nurse's Notes [facility] Name: Marily Gonsales Age: 78 yrs Sex: Female : 1945 Arrival Date: 07/28/2024 Time: 10:22 Bed 16 Private MD: Diagnosis: Fall on same level, unspecified;Unspecified injury of head, initial encounter;Contusion of back wall of thorax Presentation: 07/28 10:29 Chief complaint: EMS states: Called to [facility] due to patient having a cm10 fall 2 days ago. Pt fell from a squatting position. Pt complaining of pain to the back of her head and right posterior rib pain. Pt takes Eliquis daily and has dizziness when turning in bed. Coronavirus screen: Client denies travel out of the [place] in the last 14 days. Ebola Screen: Patient denies travel to an Ebola-affected area in the 21 days before illness onset. Initial Sepsis Screen: Does the patient meet any 2 criteria? No. Patient's initial sepsis screen is negative. Does the patient have a suspected source of infection? No. Patient's initial sepsis screen is negative. Risk Assessment: Do you want to hurt yourself or someone else? Patient reports no desire to harm self or others. Onset of symptoms was July 26, 2024. 10:29 Method Of Arrival: EMS: [facility] cm10 10:29 Acuity: CORI 3 cm10 Triage Assessment: 10:31 General: Appears in no apparent distress. comfortable, Behavior is calm, cooperative, cm10 appropriate for age. Neuro: No deficits noted. Level of Consciousness is awake, alert, obeys commands, Oriented to person, place, time, situation, Appropriate for age Reports dizziness. Respiratory: No deficits noted. Airway is patent Respiratory effort is even, unlabored, Respiratory pattern is regular, symmetrical. 11:32 Musculoskeletal: Reports pain in right mid back. cm10 11:32 Pain: Complains of pain in right mid back Pain does not radiate. Pain currently is 3 cm10 out of 10 on a pain scale. Historical: - Allergies: 10:30 Sulfa (Sulfonamide Antibiotics); cm10 - PMHx: 10:30 Bladder cancer; CHF; COPD; Hypertension; Hypothyroidism; Neurogenic Bladder (Pt self cm10 caths); - PSHx: 10:30 Bladder; section; cm10 - Immunization history:: Adult Immunizations up to date. - Infectious Disease History:: Denies. - Social history:: Smoking status: Patient denies any tobacco usage or history of. - Family history:: not pertinent. - Hospitalizations: : No recent hospitalization is reported. Screenin:33 [facility] ED Fall Risk Assessment (Adult) History of falling in the last 3 months, cm10 including since admission Yes- single mechanical fall (1 pt) Confusion or Disorientation No (0 pts) Intoxicated or Sedated No (0 pts) Impaired Gait Yes (1 pt) Mobility Assist Device Used Yes (1 pt) Altered Elimination Yes (1 pt) Score/Fall Risk Level 3 or more points = High Risk Oriented to surroundings, Maintained a safe environment, Hourly rounding (assess needs \T\ fall precautionary measures) done. Abuse screen: Denies threats or abuse. Denies injuries from another. Nutritional screening: No deficits noted. Tuberculosis screening: No symptoms or risk factors identified. Assessment: 12:00 Reassessment: Pt awaiting transport back to [facility]. cm10 12:10 Reassessment: Patient appears in no apparent distress at this time. Patient and/or cm10 family updated on plan of care and expected duration. Pain level reassessed. Patient is alert, oriented x 3, equal unlabored respirations, skin warm/dry/pink. Vital Signs: 10:29 BP 121 / 67; Pulse 59; Resp 15; Temp 98.6; Pulse Ox 98% ; Pain 3/10; cm10 11:45 BP 116 / 67; Pulse 60; Resp 15; Pulse Ox 98% ; cm10 13:00 BP 123 / 71; Pulse 62; Resp 15; Pulse Ox 98% ; cm10 10:29 Pain Scale: Adult cm10 ED Course: 10:24 Patient arrived in ED. cm10 10:29 Neisha Cunningham, BREANNE is Primary Nurse. cm10 10:30 Rosalio Glaser MD is Attending Physician. rn 10:30 Triage completed. cm10 10:31 Arm band placed on right wrist. Patient placed in an exam room, on a stretcher, on cm10 pulse oximetry. 10:59 Straight cath inserted, using sterile technique, 14 Fr. Returned clear yellow urine. cm10 Patient tolerated well. 11:08 Chest Abd Pelvis Wo Con In Process Unspecified. EDMS 11:09 Head C Spine Mpr Wo Con In Process Unspecified. EDMS 11:23 Protime (+inr) Sent. cm10 11:23 Ptt, Activated Sent. cm10 11:23 Basic Metabolic Panel Sent. cm10 11:23 CBC with Diff Sent. cm10 11:23 Initial lab(s) drawn, by me, sent to lab. Inserted saline lock: 22 gauge in left hand, cm10 using aseptic technique. Blood collected. Flushed with 10 mL NS. 11:33 Patient has correct armband on for positive identification. Bed in low position. Call cm10 light in reach. Side rails up X2. Provided Education on: ER process and procedures,. 12:10 Report given to [facility]. cm10 13:19 No provider procedures requiring assistance completed. IV discontinued, intact, cm10 bleeding controlled, No redness/swelling at site. Pressure dressing applied. Administered Medications: 13:05 Drug: Acetaminophen PO 650 mg PO once Route: PO; cm10 13:35 Follow up: Response: No adverse reaction cm10 Medication: 11:34 VIS not applicable for this client. cm10 Outcome: 11:54 Discharge ordered by . rn 14:30 Discharged to [facility]. cm10 14:30 Condition: good 14:30 Discharge instructions given to patient, Instructed on discharge instructions, follow up and referral plans. Demonstrated understanding of instructions, follow-up care, 14:30 Patient left the ED. cm10 Signatures: Dispatcher [employer] EDMS Rosalio Glaser MD MD rn Neisha Cunningham RN RN cm10 Corrections: (The following items were deleted from the chart) 11:32 10:31 Neuro: No deficits noted. Level of Consciousness is awake, alert, obeys commands, cm10 Oriented to person, place, time, situation, Appropriate for age cm10
[2024-07-28] MEDS ORDERED: ACETAMINOPHEN 325 MG TABLET ONE (12:57)
[2024-07-28 14:50] VITALS: TEMP 98.6; O2SAT 98
[2024-07-28 14:55] VITALS: BP 123/71
== END 2024-07-28 14:30 | disposition home or self-care (01) ==
LOC: ER 10:22
DX: S09.90XA Unspecified injury of head, initial encounter (principal); S20.222A Contusion of left back wall of thorax, initial encounter; W18.30XA Fall on same level, unspecified, initial encounter; Z79.01 Long term (current) use of anticoagulants
CPT/HCPCS: 36415; 51702; 70450; 71250; 72125; 74176; 80048; 85025; 85610; 85730; 99284